=== PATIENT | male | born 1950 | race African-American/Black ===

== ENCOUNTER → 2017-01-11 | Outpatient (CLI) | payer MEDICARE, BC ==
--- NOTE | 2017-01-11 17:42 | CT ---
EXAMINATION TYPE: CT brain wo con DATE OF EXAM: 01/11/2017 4:59 PM COMPARISON: NONE HISTORY: 66-year-old male having memory changes for the past month TECHNIQUE: Examination was done in axial plane without intravenous contrast. Coronal and sagittal r econstructions performed. CT DLP: 1061 mGycm Automated exposure control for dose reduction was used. FINDINGS: There is no evidence of acute intracranial hemorrhage, acute ischemic changes, mass, mass-effect, or extra-axial fluid collection. There is no effacement of cerebral sulci or basal subarachnoid cister ns. There is no hydrocephalus. There is no midline shift. Gomez-white matter distinction is preserv ed. Mild generalized cerebral cortical atrophy with moderate patchy and confluent periventricular and yovanny p white matter hypodensities. Multiple basal ganglionic lacunar infarcts and additional white matter infarcts in the [place] radiata. Rightward nasal septal deviation. Some frothy partial opacification within the right sphenoid sinus. Cerumen within the left external auditory canal. Mastoid air cells well pneumatized. Orbits and globe s are intact. IMPRESSION: 1. Moderate confluent changes of chronic small vessel ischemic disease with multiple deep white matte r and basal ganglionic lacunar infarcts. Given patient's symptoms, correlate for possible developing multi-infarct dementia. 2. Some frothy opacification of the right sphenoid sinus can be seen in the setting of an acute viral sinusitis.
== END | disposition home or self-care (01) ==
LOC: RADCTMAIN 16:34
PROVIDERS: ATTEND Family Medicine
DX: I63.9 Cerebral infarction, unspecified (principal); I67.89 Other cerebrovascular disease; R90.82 White matter disease, unspecified
CPT/HCPCS: 70450

== ENCOUNTER 2017-02-23 21:38 | Inpatient (IN) | payer MEDICARE, BC ==
--- NOTE | 2017-02-23 22:18 | CT ---
EXAM: CT Head Without Intravenous Contrast CLINICAL HISTORY: Reason: Neuro Deficits. Left side facial droop and difficulty walking. TECHNIQUE: Axial computed tomography images of the head/brain without intravenous contrast. CTDI is 57.4 mGy and DLP is 926.5 mGy-cm This CT exam was performed using one or more of the following dose reduction techniques: automated exposure control, adjustment of the mA and/or kV according to patient size, and/or use of iterative reconstruction technique. COMPARISON: CT 01/11/17. FINDINGS: Brain: Mild involutional changes. Patchy white matter low attenuation likely represents small vessel disease, similar to prior study. Bilateral lacunar infarcts are also again noted. No intracranial hemorrhage or acute cortical infarct. No mass effect or midline shift. Ventricles: Unremarkable. Bones/joints: Unremarkable. Soft tissues: Unremarkable. Sinuses: Mild sinus disease most prominent in the right sphenoid sinus. Mastoid air cells: Unremarkable as visualized. IMPRESSION: 1. No intracranial hemorrhage or acute cortical infarct. 2. Mild involutional changes with moderate small vessel ischemic disease and lacunar infarcts.
--- NOTE | 2017-02-23 22:23 | XR ---
EXAM: XR Chest, 2 Views CLINICAL HISTORY: Reason: altered mental status TECHNIQUE: Frontal and lateral views of the chest. COMPARISON: No relevant prior studies available. FINDINGS: Lungs: Unremarkable. No consolidation. Pleural space: Unremarkable. No pneumothorax. Heart: Enlarged cardiac silhouette. Mediastinum: Prominent aorta. Bones/joints: Unremarkable. IMPRESSION: 1. Enlarged cardiac silhouette. 2. No focal consolidation, pneumothorax, or pleural effusion.
[2017-02-23 22:25] LABS: Anisocytosis Slight; Basophils % (A) 0 %; CH 31.6; CHCM 33.9; Eosinophils # (A) 0.1 k/uL (0-0.7); Eosinophils % (A) 2 %; HCT 30.4 % (39.0-53.0); HDW 2.79; HGB 10.2 gm/dL (13.0-17.5); Luc # (Auto) 0.21; Luc % (Auto) 3; Lymphocytes # (A) 2.3 k/uL (1.0-4.8); Lymphocytes % (A) 37 %; MCH 31.3 pg (25.0-35.0); MCHC 33.5 g/dL (31.0-37.0); MCV 93.5 fL (80.0-100.0); Mean Platelet Volume 6.9; Monocytes # (A) 0.4 k/uL (0-1.0); Monocytes % (A) 7 %; Neutrophils # (A) 3.2 k/uL (1.3-7.7); Neutrophils % (A) 51 %; RBC 3.25 m/uL (4.30-5.90); RDW 16.1 % (11.5-15.5); WBC 6.2 k/uL (3.8-10.6); WBC (Perox) 6.29
[2017-02-23 22:32] LABS: Glucose,Whole Blood 161 mg/dL (75-99)
[2017-02-23] MEDS ORDERED: INSULIN REGULAR 100 UNIT/ML VIAL SQ STA (22:32)
[2017-02-23 22:34] LABS: ALT 32 U/L (21-72); AST 21 U/L (17-59); Alkaline Phosphatase 115 U/L (38-126); Anion Gap 11 mmol/L; Blood Urea Nitrogen 16 mg/dL (9-20); Calcium 9.7 mg/dL (8.4-10.2); Carbon Dioxide 25 mmol/L (22-30); Chloride 102 mmol/L (98-107); Glucose 129 mg/dL (74-99); Non-African American GFR(MDRD) 58 (>60 ml/min/1.73 sqM); Potassium 3.5 mmol/L (3.5-5.1); Sodium 138 mmol/L (137-145); Total Bilirubin 0.4 mg/dL (0.2-1.3); Total Protein 7.4 g/dL (6.3-8.2)
[2017-02-23 22:46] LABS: Creatine Kinase 89 U/L (55-170)
[2017-02-23 22:48] LABS: Partial Thromboplastin Time 27.7 sec (22.0-30.0); Prothrombin Time 10.1 sec (9.0-12.0)
[2017-02-23 23:00] LABS: Creatine Kinase MB 0.7 ng/mL (0.0-2.4); Troponin I <0.012 ng/mL (0.000-0.034)
[2017-02-23] MEDS ORDERED: ASPIRIN 81 MG CHEW PO STA (23:03)
--- NOTE | 2017-02-23 23:03 | ED ---
Neuro HPI - General Chief Complaint: Neuro Symptoms/Deficit Stated Complaint: Poss Stroke Time Seen by Provider: 02/23/17 21:47 Source: patient Mode of arrival: ambulatory Limitations: no limitations - History of Present Illness Is the patient presenting with stroke symptoms?: Yes Last Known Well Date: 02/23/17 Last Known Well Time: 08:30 Onset/Timin -: hour(s) Location: left face, left arm, left leg History of same: Yes Place: home Severity: mild Quality: weak Improves With: none Worsens With: none On Anticoagulants: No Context: sudden onset Associated Symptoms: denies other symptoms Treatments Prior to Arrival: none - Related Data Home Medications: Home Medications Medication Instructions Recorded Confirmed Atorvastatin [Lipitor] 40 mg PO DAILY 02/23/17 02/23/17 Cholecalciferol [Vitamin D3] 1,000 unit PO DAILY 02/23/17 02/23/17 Cyanocobalamin (Vitamin B-12) 1,000 mcg PO DAILY 02/23/17 02/23/17 [Vitamin B-12] Glycopyrrolate/Formoterol Fum 1 puff INHALATION RT-BID 02/23/17 02/23/17 [Bevespi Aerosphere Inhaler] Omeprazole [PriLOSEC] 20 mg PO AC-BID 02/23/17 02/23/17 amLODIPine BES/OLMESARTAN MED 1 tab PO DAILY 02/23/17 02/23/17 [amLODIPine BES/OLMESARTAN MED 10-40 mg] Allergies/Adverse Reactions: Allergies Allergy/AdvReac Type Severity Reaction Status Date / Time No Known Allergies Allergy Verified 02/23/17 22:08 Review of Systems ROS Statement: Those systems with pertinent positive or pertinent negative responses have been documented in the HPI. ROS Other: All systems not noted in ROS Statement are negative. Constitutional: Reports: weakness. Denies: fever, chills Eyes: Denies: vision change Respiratory: Denies: cough, dyspnea Cardiovascular: Denies: chest pain, palpitations, syncope Gastrointestinal: Denies: abdominal pain, vomiting, diarrhea Genitourinary: Denies: dysuria, hematuria Musculoskeletal: Denies: back pain Skin: Denies: rash Neurological: Reports: weakness, abnormal gait. Denies: headache, numbness, paresthesias, confusion General Exam Limitations: no limitations General appearance: alert, in no apparent distress Head exam: Present: atraumatic, normocephalic, normal inspection Eye exam: Present: normal appearance, PERRL, EOMI. Absent: scleral icterus, conjunctival injection, periorbital swelling, periorbital tenderness ENT exam: Present: normal oropharynx, other (Mild left facial droop) Neck exam: Present: normal inspection, full ROM. Absent: meningismus Respiratory exam: Present: normal lung sounds bilaterally. Absent: respiratory distress, wheezes, rales, rhonchi, stridor Cardiovascular Exam: Present: regular rate, normal rhythm, normal heart sounds. Absent: systolic murmur, diastolic murmur, rubs, gallop GI/Abdominal exam: Present: soft. Absent: distended, tenderness, guarding, rebound, mass Extremities exam: Present: normal inspection, normal capillary refill. Absent: pedal edema, calf tenderness Back exam: Present: normal inspection. Absent: CVA tenderness (R), CVA tenderness (L) Neurological exam: Present: alert, oriented X3, motor sensory deficit, other ( This patient is GCS 15. Speech is intact. The cranial nerve exam the patient does have some left-sided facial droop. Motor exam reveals mild drift on the left leg raise. ). Absent: CN II-XII intact Skin exam: Present: warm, dry, intact, normal color. Absent: rash Stroke MDM - Lab Data Result diagrams: 02/23/17 22:10 02/23/17 22:10 Lab Results 02/23/17 02/23/17 02/23/17 Range/Units 22:10 22:10 22:10 WBC 6.2 (3.8-10.6) k/uL RBC 3.25 L (4.30-5.90) m/uL Hgb 10.2 L (13.0-17.5) gm/dL Hct 30.4 L (39.0-53.0) % MCV 93.5 (80.0-100.0) fL MCH 31.3 (25.0-35.0) pg MCHC 33.5 (31.0-37.0) g/dL RDW 16.1 H (11.5-15.5) % Plt Count 326 (150-450) k/uL Neutrophils % 51 % Lymphocytes % 37 % Monocytes % 7 % Eosinophils % 2 % Basophils % 0 % Neutrophils # 3.2 (1.3-7.7) k/uL Lymphocytes # 2.3 (1.0-4.8) k/uL Monocytes # 0.4 (0-1.0) k/uL Eosinophils # 0.1 (0-0.7) k/uL Basophils # 0.0 (0-0.2) k/uL Anisocytosis Slight PT (9.0-12.0) sec INR (<1.1) APTT (22.0-30.0) sec Sodium 138 (137-145) mmol/L Potassium 3.5 (3.5-5.1) mmol/L Chloride 102 (98-107) mmol/L Carbon Dioxide 25 (22-30) mmol/L Anion Gap 11 mmol/L BUN 16 (9-20) mg/dL Creatinine 1.25 (0.66-1.25) mg/dL Est GFR (MDRD) Af Amer >60 (>60 ml/min/1.73 sqM) Est GFR (MDRD) Non-Af 58 (>60 ml/min/1.73 sqM) Glucose 129 H (74-99) mg/dL POC Glucose (mg/dL) (75-99) mg/dL POC Glu Hot Water Heater Installer ID Calcium 9.7 (8.4-10.2) mg/dL Total Bilirubin 0.4 (0.2-1.3) mg/dL AST 21 (17-59) U/L ALT 32 (21-72) U/L Alkaline Phosphatase 115 (38-126) U/L Total Creatine Kinase 89 (55-170) U/L CK-MB (CK-2) 0.7 (0.0-2.4) ng/mL CK-MB (CK-2) Rel Index 0.8 Troponin I <0.012 (0.000-0.034) ng/mL Total Protein 7.4 (6.3-8.2) g/dL Albumin 3.8 (3.5-5.0) g/dL 02/23/17 02/23/17 Range/Units 22:10 22:29 WBC (3.8-10.6) k/uL RBC (4.30-5.90) m/uL Hgb (13.0-17.5) gm/dL Hct (39.0-53.0) % MCV (80.0-100.0) fL MCH (25.0-35.0) pg MCHC (31.0-37.0) g/dL RDW (11.5-15.5) % Plt Count (150-450) k/uL Neutrophils % % Lymphocytes % % Monocytes % % Eosinophils % % Basophils % % Neutrophils # (1.3-7.7) k/uL Lymphocytes # (1.0-4.8) k/uL Monocytes # (0-1.0) k/uL Eosinophils # (0-0.7) k/uL Basophils # (0-0.2) k/uL Anisocytosis PT 10.1 (9.0-12.0) sec INR 1.0 (<1.1) APTT 27.7 (22.0-30.0) sec Sodium (137-145) mmol/L Potassium (3.5-5.1) mmol/L Chloride (98-107) mmol/L Carbon Dioxide (22-30) mmol/L Anion Gap mmol/L BUN (9-20) mg/dL Creatinine (0.66-1.25) mg/dL Est GFR (MDRD) Af Amer (>60 ml/min/1.73 sqM) Est GFR (MDRD) Non-Af (>60 ml/min/1.73 sqM) Glucose (74-99) mg/dL POC Glucose (mg/dL) 161 H (75-99) mg/dL POC Glu Hot Water Heater Installer ID Monet Evans Calcium (8.4-10.2) mg/dL Total Bilirubin (0.2-1.3) mg/dL AST (17-59) U/L ALT (21-72) U/L Alkaline Phosphatase (38-126) U/L Total Creatine Kinase (55-170) U/L CK-MB (CK-2) (0.0-2.4) ng/mL CK-MB (CK-2) Rel Index Troponin I (0.000-0.034) ng/mL Total Protein (6.3-8.2) g/dL Albumin (3.5-5.0) g/dL - EKG Data -: EKG Interpreted by Ca EKG shows normal: sinus rhythm, axis (Normal), intervals (Normal) Rate: normal (Rate 83 bpm) Interpretation: nonspecific ST-T wave changes, other (Possible old septal infarct.) Past Medical History Past Medical History: GERD/Reflux, Hyperlipidemia, Hypertension, Musculoskeletal Disorder Additional Past Medical History / Comment(s): 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 OCC EDEMA FEET. History of Any Multi-Drug Resistant Organisms: None Reported Past Surgical History: Hernia Repair, Joint Replacement, Orthopedic Surgery Additional Past Surgical History / Comment(s): RT TOTAL KNEE Past Anesthesia/Blood Transfusion Reactions: No Reported Reaction Past Psychological History: No Psychological Hx Reported Smoking Status: Current every day smoker Past Alcohol Use History: Occasional Additional Past Alcohol Use History / Comment(s): SMOKED < 1PPD FOR 38 YEARS EST. Past Drug Use History: None Reported - Past Family History Mother Family Medical History: No Reported History Course Vital Signs 02/23/17 02/23/17 21:48 22:15 Temperature 98.7 F Pulse Rate 85 86 Respiratory 16 16 Rate Blood Pressure 148/78 140/78 O2 Sat by Pulse 98 97 Oximetry Disposition Clinical Impression: Acute ischemic stroke Disposition: ADMITTED IP TO THIS HOSP Condition: Fair
[2017-02-24] MEDS: DOCUSATE 100 MG CAP PO SCH ×4 (00:20→22:46)
[2017-02-24 00:25] LABS: Glucose,Whole Blood 124 mg/dL (75-99)
[2017-02-24 04:55] LABS: Anisocytosis Slight; Basophils % (A) 0 %; CH 31.3; CHCM 32.8; Eosinophils # (A) 0.1 k/uL (0-0.7); Eosinophils % (A) 2 %; HCT 29.2 % (39.0-53.0); HDW 2.65; HGB 9.6 gm/dL (13.0-17.5); Luc # (Auto) 0.21; Luc % (Auto) 4; Lymphocytes # (A) 2.6 k/uL (1.0-4.8); Lymphocytes % (A) 42 %; MCH 31.4 pg (25.0-35.0); MCHC 32.8 g/dL (31.0-37.0); MCV 95.9 fL (80.0-100.0); Mean Platelet Volume 6.5; Monocytes # (A) 0.4 k/uL (0-1.0); Monocytes % (A) 7 %; Neutrophils # (A) 2.7 k/uL (1.3-7.7); Neutrophils % (A) 45 %; RBC 3.05 m/uL (4.30-5.90); RDW 16.5 % (11.5-15.5); WBC 6.1 k/uL (3.8-10.6); WBC (Perox) 6.41
[2017-02-24 05:08] LABS: Anion Gap 7 mmol/L; Blood Urea Nitrogen 14 mg/dL (9-20); Calcium 9.5 mg/dL (8.4-10.2); Carbon Dioxide 28 mmol/L (22-30); Chloride 104 mmol/L (98-107); Glucose 95 mg/dL (74-99); Magnesium 1.6 mg/dL (1.6-2.3); Non-African American GFR(MDRD) >60 (>60 ml/min/1.73 sqM); Phosphorous 3.4 mg/dL (2.5-4.5); Potassium 3.3 mmol/L (3.5-5.1); Sodium 139 mmol/L (137-145)
[2017-02-24] MEDS: PANTOPRAZOLE 40 MG TABLET PO SCH ×2 (06:17→18:48)
[2017-02-24] MEDS: MAGNESIUM SULFATE-D5W PMX 1 GM in DEXTROSE/WATER 1 100ML.BAG IVPB SCH ×2 (06:50→08:03)
[2017-02-24] MEDS: DEXTROSE 5%-0.45% NACL 1,000 ML IV SCH (06:50)
[2017-02-24] MEDS ORDERED: NON-FORMULARY DRUG (Glycopyrrolate/Formoterol Fum [Bevespi Aerosphere Inhaler] 1 PUFF) INHALATION SCH (08:00)
[2017-02-24] MEDS: POTASSIUM CHLORIDE 10 MEQ in WATER FOR INJECTION 1 100ML.BAG IVPB SCH ×2 (08:48→10:00)
[2017-02-24] MEDS ORDERED: FAMOTIDINE 20 MG/2 ML VIAL IV SCH (09:00)
--- NOTE | 2017-02-24 10:00 | ECHOF ---
Referral Reason:Thrombus MEASUREMENTS -------- HEIGHT: 182.9 cm WEIGHT: 76.7 kg BP: IVSd: 1.6 cm (0.6 - 1.1) LVIDd: 2.9 cm (3.9 - 5.3) LVPWd: 1.8 cm (0.6 - 1.1) IVSs: 1.8 cm LVIDs: 2.3 cm LVPWs: 1.9 cm Ao Diam: 3.2 cm (2.0 - 3.7) AV Cusp: 2.3 cm (1.5 - 2.6) LA Diam: 3.1 cm (2.7 - 3.8) MV EXCURSION: 18.395 mm (> 18.000) MV EF SLOPE: 87 mm/s (70 - 150) EPSS: 2.2 cm MV E Shine: 0.70 m/s MV DecT: 164 ms MV A Shine: 1.06 m/s MV E/A Ratio: 0.66 RAP: 5.00 mmHg RVSP: 10.33 mmHg FINDINGS -------- Sinus rhythm. This was a technically good study. There is severe concentric left ventricular hypertrophy. Overall left ventricular systolic function is normal with, an EF between 55 - 60 %. The right ventricle is normal in size and function. The left atrium is normal in size. The right atrium is normal in size. The aortic valve is trileaflet, and appears structurally normal. No aortic stenosis or regurgitation. The mitral valve leaflets are mildly thickened. There is trace mitral regurgitation. Trace tricuspid regurgitation present. The right ventricular systolic pressure, as measured by Doppler, is 10.33mmHg. Pulmonic valve appears structurally normal. The aortic root size is normal. There is a trivial pericardial effusion present. CONCLUSIONS -------- 1. Sinus rhythm. 2. There is trace mitral regurgitation. 3. Trace tricuspid regurgitation present. 4. The right ventricular systolic pressure, as measured by Doppler, is 10.33mmHg. 5. Pulmonic valve appears structurally normal. 6. The aortic root size is normal. 7. There is a trivial pericardial effusion present. 8. This was a technically good study. 9. There is severe concentric left ventricular hypertrophy. 10. Overall left ventricular systolic function is normal with, an EF between 55 - 60 %. 11. The right ventricle is normal in size and function. 12. The left atrium is normal in size. 13. The right atrium is normal in size. 14. The aortic valve is trileaflet, and appears structurally normal. No aortic stenosis or regurgitation. 15. The mitral valve leaflets are mildly thickened. FLEET OPERATIONS MANAGER: Susie Sandhu RDCS
--- NOTE | 2017-02-24 10:28 | US ---
EXAMINATION TYPE: US carotid duplex BILAT DATE OF EXAM: 02/24/2017 9:35 AM COMPARISON: NONE CLINICAL HISTORY: Stenosis. Left facial drooping on admission yesterday, ICU pt EXAM MEASUREMENTS: RIGHT: Peak Systolic Velocity (PSV) cm/sec ----- Right CCA: 52.9 ----- Right ICA: 54.1 ----- Right ECA: 56.3 ICA/CCA ratio: 1.0 RIGHT: End Diastole cm/sec ----- Right CCA: 12.7 ----- Right ICA: 12.4 ----- Right ECA: 8.0 LEFT: Peak Systolic Velocity (PSV) cm/sec ----- Left CCA: 60.3 ----- Left ICA: 43.8 ----- Left ECA: 46.0 ICA/CCA ratio: 0.7 LEFT: End Diastole cm/sec ----- Left CCA: 10.9 ----- Left ICA: 13.9 ----- Left ECA: 6.4 VERTEBRALS (direction of flow): Right Vertebral: Antegrade Left Vertebral: Antegrade Mild homogeneous plaque with no significant stenosis seen Grayscale images show mild shadowing peripheral hyperechoic plaque at left carotid bulb. Velocity jhonny surements and ratios are within normal limits bilaterally. IMPRESSION: No hemodynamically significant stenosis is seen in either internal carotid artery
[2017-02-24 13:24] LABS: Cholesterol 162 mg/dL (<200); HDL Cholesterol 39 mg/dL (40-60); Triglycerides 54 mg/dL (<150)
--- NOTE | 2017-02-24 13:24 | P.CNNES ---
History of Present Illness Consult date: 02/24/17 Reason for Consult: Patient being evaluated for acute stroke. History of Present Illness: This patient is a 66-year-old right-handed -Greek male who apparently yesterday evening was noted by his is showing sudden changes in his mental status and new weakness. His who provided the medical history states he was just not himself and seemed to have more trouble eating at the dinner table. Apparently the symptoms lasted for several hours and did not show any improvement. EMS was called and he was brought into the emergency room at [facility] for further evaluation. He was seen in the ER by Dr. Rivera. He was sent for a computed tomography scan of the brain for further evaluation of acute stroke. CAT scan revealed no intracranial hemorrhage or acute cortical infarct. Mild changes with moderate small vessel ischemic changes were noted. His NIH stroke scale yesterday evening at 2100 hrs. was 3.0. He was not felt to be a TPA candidate yesterday evening. He was admitted to the ICU for close monitoring. He was transferred to the intensive care unit where he was examined this morning. Patient continues to have evidence of left-sided hemiparesis on examination. He has a left facial droop. Apparently he was assessed for a swallowing evaluation at bedside and failed his swallow study today. He is nothing by mouth at this time. His states that he has a history of possible gastric ulcer and had undergone surgical evaluation recently. He has not been able to take aspirin due to the ulcer history. Patient denies any headache at this time. He apparently does have history of multiple TIAs in the past. His states that the left-sided facial weakness is new since yesterday. He has been admitted to the hospital for a complete stroke evaluation. Neurology is now been consulted for further evaluation and recommendations. Review of Systems Constitutional: Denies chills, Denies fever Eyes: denies blurred vision, denies pain Ears, nose, mouth and throat: Denies headache, Denies sore throat Cardiovascular: Denies chest pain, Denies shortness of breath Respiratory: Denies cough Gastrointestinal: Denies abdominal pain, Denies diarrhea, Denies nausea, Denies vomiting Musculoskeletal: Denies myalgias Integumentary: Denies pruritus, Denies rash Neurological: Reports change in mentation, Reports confusion, Reports memory loss, Reports transient paralysis, Denies numbness, Denies weakness Psychiatric: Denies anxiety, Denies depression Endocrine: Denies fatigue, Denies weight change Past Medical History Past Medical History: GERD/Reflux, Hyperlipidemia, Hypertension, Musculoskeletal Disorder Additional Past Medical History / Comment(s): 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 OCC EDEMA FEET. Current Gastric Ulcer. History of Any Multi-Drug Resistant Organisms: None Reported Past Surgical History: Hernia Repair, Joint Replacement, Orthopedic Surgery Additional Past Surgical History / Comment(s): RT TOTAL KNEE Past Anesthesia/Blood Transfusion Reactions: No Reported Reaction Past Psychological History: No Psychological Hx Reported Smoking Status: Current every day smoker Past Alcohol Use History: Occasional Additional Past Alcohol Use History / Comment(s): SMOKED < 1PPD FOR 38 YEARS EST. Past Drug Use History: None Reported - Past Family History Mother Family Medical History: No Reported History Medications and Allergies Home Medications Medication Instructions Recorded Confirmed Type Atorvastatin [Lipitor] 40 mg PO DAILY 02/23/17 02/23/17 History Cholecalciferol [Vitamin D3] 1,000 unit PO DAILY 02/23/17 02/23/17 History Cyanocobalamin (Vitamin B-12) 1,000 mcg PO DAILY 02/23/17 02/23/17 History [Vitamin B-12] Glycopyrrolate/Formoterol Fum 1 puff INHALATION RT-BID 02/23/17 02/23/17 History [Bevespi Aerosphere Inhaler] Omeprazole [PriLOSEC] 20 mg PO AC-BID 02/23/17 02/23/17 History amLODIPine BES/OLMESARTAN MED 1 tab PO DAILY 02/23/17 02/23/17 History [amLODIPine BES/OLMESARTAN MED 10-40 mg] Allergies Allergy/AdvReac Type Severity Reaction Status Date / Time No Known Allergies Allergy Verified 02/23/17 22:08 Physical Examination - Vital Signs Vital Signs: Vital Signs Temp Pulse Resp BP Pulse Ox 02/24/17 08:00 98.3 F 71 15 97 02/24/17 06:00 69 14 02/24/17 04:00 98.3 F 75 14 147/82 100 02/24/17 02:00 76 10 L 158/82 02/24/17 01:50 77 17 158/82 02/24/17 01:40 75 13 158/82 02/24/17 01:30 74 17 158/82 02/24/17 01:20 78 18 158/82 02/24/17 01:10 77 19 02/24/17 01:00 74 17 02/24/17 00:50 77 26 H 02/24/17 00:40 93 20 02/24/17 00:30 77 15 02/24/17 00:27 10 L 02/24/17 00:23 75 15 148/82 97 02/23/17 23:44 76 16 142/89 98 Intake and Output 02/23/17 02/24/17 02/24/17 22:59 06:59 14:59 Intake Total 100 350 Output Total 250 Balance -150 350 Intake: IV 100 100 NS 100 Potassium Chloride 10 meq 100 In Water For Injection 1 100ml.bag @ 100 mls/hr IVPB Q1H [facility] Rx#: [id number] Intake, IV Titration 250 Amount Dextrose 5%-0.45% NaCl 1, 150 000 ml @ 75 mls/hr IV . [id number] [facility] Rx#:[id number] Magnesium Sulfate-D5w Pmx 100 1 gm In Dextrose/Water 1 100ml.bag @ 100 mls/hr IVPB Q1H [facility] Rx#: [id number] Output: Urine 250 Other: Voiding Method Urinal Weight 77 kg - Constitutional General appearance: average body habitus, cooperative - EENT EENT: PERRL, mucous membranes moist - Respiratory Respiratory: lungs clear, normal breath sounds - Cardiovascular Cardiovascular: regular rate, normal S1, normal S2 Extremities: no peripheral edema bilaterally - Gastrointestinal Gastrointestinal: normoactive bowel sounds - Integumentary Integumentary: normal - Neurologic Cranial nerve examination: PERRL, EOMI, V1/V2/V3 grossly intact, face symmetric , tongue midline, intact gag reflex, intact corneal reflex, normal palatal elevation Speech examination: intact Sensorimotor examination: intact Motor examination - right side: 5/5: biceps, triceps, wrist flexion, wrist extension, technical operations specialist, hip flexors, knee extensors, dorsiflexion, toe extension (EHL) , plantarflexion Motor examination - left side: 3/5: biceps, triceps, wrist flexion, wrist extension, technical operations specialist, 4/5: hip flexors, knee extensors, dorsiflexion, toe extension ( EHL), plantarflexion Detailed sensory examination: intact Reflex and gait examination: intact Reflexes: 1+: ankle, bicep, knee, tricep - Musculoskeletal Musculoskeletal: no pain - Psychiatric Psychiatric: mood/affect appropriate, cooperative Results - Laboratory Findings CBC and BMP: 02/24/17 04:24 02/24/17 04:24 Abnormal Lab Findings: Abnormal Labs 02/24/17 02/24/17 02/24/17 00:23 04:24 04:24 RBC 3.05 L Hgb 9.6 L Hct 29.2 L RDW 16.5 H Potassium 3.3 L POC Glucose (mg/dL) 124 H Assessment and Plan (1) Acute right arterial ischemic stroke, MCA (middle cerebral artery) Status: Acute Code(s): I63.511 - CEREB INFRC D/T UNSP OCCLS OR STENOS OF RIGHT MID CEREB ART (2) Dysphagia Status: Acute Code(s): R13.10 - DYSPHAGIA, UNSPECIFIED (3) Peptic ulcer disease Status: Acute Code(s): K27.9 - PEPTIC ULC, SITE UNSP, UNSP AC OR CHR, W/O HEMOR OR PERF (4) Hypertension Status: Acute Code(s): I10 - ESSENTIAL (PRIMARY) HYPERTENSION (5) Hyperlipidemia Status: Acute Code(s): E78.5 - HYPERLIPIDEMIA, UNSPECIFIED Plan: This patient is a 66-year-old right-handed -Greek male who was admitted to Hospital with symptoms of left-sided weakness and confusion. Symptoms began late yesterday evening and he was brought into the emergency room for further evaluation. He underwent a computed tomography scan of the brain which revealed no acute intracranial hemorrhage or acute stroke. He was fully admitted to the intensive care unit. He failed his swallow evaluation. He is nothing by mouth at this time. He has history of TIAs in the past. His neurological examination in the ICU reveals him to have left-sided hemiparesis as well as left upper motor neuron facial weakness. These findings suggest an acute right MCA stroke. We have recommended a complete stroke evaluation for the patient. Case was discussed today at length with the patient's at bedside. All of her questions were answered. She is aware of her husbands very guarded condition at this time. We will continue close neurological monitoring of this patient in the ICU. His overall prognosis at this time remains very guarded. Time with Patient: Greater than 30
--- NOTE | 2017-02-24 13:59 | MR ---
EXAMINATION TYPE: MR brain wo con DATE OF EXAM: 02/24/2017 1:46 PM COMPARISON: CT brain from yesterday HISTORY: Acute right-sided hemispheric stroke per order. Admitted yesterday for left-sided facial lyubov op and difficulty walking. TECHNIQUE: Multiplanar, multisequence imaging of the brain and brainstem is performed without IV cont rast. FINDINGS: Diffusion weighted images demonstrate curvilinear area of increased signal on diffusion weighted imag es with diminished signal on ADC mapping that shows T2 hyperintensity near the inferior left basal ga nglia junction with the superior left temporal lobe seen best image 104 series 305 measuring roughly 10 x 4 mm consistent with lacunar infarct. There are additional multifocal subcentimeter areas of sim ilar signal noted in the left occipital lobe on image 144 flair image 18 and right subcortical pariet al matter. Additional scattered foci are seen right greater than left involving the deep frontal and parietal brain bilaterally of similar signal intensity. Findings are consistent with multilevel evolv ing acute lacunar infarcts. There is no worrisome extra-axial fluid collection. There is ventricular and sulcal prominence consis tent with diffuse cerebral atrophy. There are focal and confluent areas of T2 hyperintensity seen thr oughout the white matter bilaterally. Lesions are nonspecific in appearance and distribution but most likely on basis of product of chronic small vessel ischemic change in patient of this age. Midline structures demonstrate normal morphology. The craniocervical junction appears within normal limits. Normal vascular flow voids are present. Dominant right vertebral artery is noted. There is de pendent fluid in right sphenoid sinus redemonstrated. Artifact is noted from patient motion. The glob es are intact bilaterally. IMPRESSION: 1. There are multifocal acute lacunar infarcts noted bilaterally, right greater than left as detailed above, consider central embolic source . 2. There is background of mild diffuse cerebral atrophy and advanced chronic small vessel ischemic ch luh noted.
[2017-02-24] MEDS: CYANOCOBALAMIN 500 MCG TAB PO SCH (14:00)
[2017-02-24] MEDS: ATORVASTATIN 40 MG TAB PO SCH (14:00)
[2017-02-24] MEDS: amLODIPine 10 MG TAB PO SCH (14:00)
[2017-02-24] MEDS: CHOLECALCIFEROL 1,000 UNIT TAB PO SCH (14:00)
[2017-02-24] MEDS: LOSARTAN 50 MG TAB PO SCH (14:01)
--- NOTE | 2017-02-24 15:35 | P.CRDCN ---
History of Present Illness Consult date: 02/24/17 History of present illness: This is a pleasant 66-year-old -[place] gentleman with a past medical history significant for hypertension and dyslipidemia was admitted to the hospital with stroke. The patient was in his usual state of health until yesterday when he started experiencing left-sided weakness and his noticed his speech became slow and he was a slightly confused. He did not lose his consciousness. He did not experience any symptoms of chest pain or chest discomfort. He underwent an MRI of the brain and that showed what it seems to be lacking her stroke in multiple location consistent with possible embolization. We get involved in the care of the patient to rule out any cardiac source of embolization. 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 He underwent an echocardiogram which showed normal LV function without any significant valvular abnormalities. The patient will be scheduled to undergo transesophageal echocardiogram in the next 48 hours. 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 OCC EDEMA FEET. Current Gastric Ulcer. History of Any Multi-Drug Resistant Organisms: None Reported Past Surgical History: Hernia Repair, Joint Replacement, Orthopedic Surgery Additional Past Surgical History / Comment(s): RT TOTAL KNEE Past Anesthesia/Blood Transfusion Reactions: No Reported Reaction Past Psychological History: No Psychological Hx Reported Smoking Status: Current every day smoker Past Alcohol Use History: Occasional Additional Past Alcohol Use History / Comment(s): SMOKED < 1PPD FOR 38 YEARS EST. Past Drug Use History: None Reported - Past Family History Mother Family Medical History: No Reported History Medications and Allergies Home Medications Medication Instructions Recorded Confirmed Type Atorvastatin [Lipitor] 40 mg PO DAILY 02/23/17 02/23/17 History Cholecalciferol [Vitamin D3] 1,000 unit PO DAILY 02/23/17 02/23/17 History Cyanocobalamin (Vitamin B-12) 1,000 mcg PO DAILY 02/23/17 02/23/17 History [Vitamin B-12] Glycopyrrolate/Formoterol Fum 1 puff INHALATION RT-BID 02/23/17 02/23/17 History [Bevespi Aerosphere Inhaler] Omeprazole [PriLOSEC] 20 mg PO AC-BID 02/23/17 02/23/17 History amLODIPine BES/OLMESARTAN MED 1 tab PO DAILY 02/23/17 02/23/17 History [amLODIPine BES/OLMESARTAN MED 10-40 mg] Allergies Allergy/AdvReac Type Severity Reaction Status Date / Time No Known Allergies Allergy Verified 02/23/17 22:08 Physical Exam Vitals: Vital Signs Temp Pulse Resp BP Pulse Ox 02/24/17 12:00 98.5 F 67 14 157/86 96 02/24/17 10:00 70 13 150/83 96 02/24/17 08:00 98.3 F 71 15 97 02/24/17 06:00 69 14 02/24/17 04:00 98.3 F 75 14 147/82 100 02/24/17 02:00 76 10 L 158/82 02/24/17 01:50 77 17 158/82 02/24/17 01:40 75 13 158/82 02/24/17 01:30 74 17 158/82 02/24/17 01:20 78 18 158/82 02/24/17 01:10 77 19 02/24/17 01:00 74 17 02/24/17 00:50 77 26 H 02/24/17 00:40 93 20 02/24/17 00:30 77 15 02/24/17 00:27 10 L 02/24/17 00:23 75 15 148/82 97 02/23/17 23:44 76 16 142/89 98 Intake and Output 02/24/17 02/24/17 02/24/17 06:59 14:59 22:59 Intake Total 100 675 Output Total 250 Balance -150 675 Intake: IV 100 200 NS 100 Potassium Chloride 10 meq 200 In Water For Injection 1 100ml.bag @ 100 mls/hr IVPB Q1H H[facility] Rx#: [id number] Intake, IV Titration 475 Amount Dextrose 5%-0.45% NaCl 1, 375 000 ml @ 75 mls/hr IV . [id number] HAM Rx#:[id number] Magnesium Sulfate-D5w Pmx 100 1 gm In Dextrose/Water 1 100ml.bag @ 100 mls/hr IVPB Q1H H[facility] Rx#: [id number] Output: Urine 250 Other: Voiding Method Urinal # Voids 1 Weight 77 kg - Constitutional General appearance: no acute distress - Respiratory Respiratory: bilateral: CTA - Cardiovascular Rhythm: regular Results 02/24/17 04:24 02/24/17 04:24 Cardiac Enzymes 02/24/17 02/24/17 Range/Units 04:24 10:04 Troponin I <0.012 <0.012 (0.000-0.034) ng/mL Lipids 02/24/17 Range/Units 04:24 Triglycerides 54 (<150) mg/dL Cholesterol 162 (<200) mg/dL HDL Cholesterol 39 L (40-60) mg/dL CBC 02/24/17 Range/Units 04:24 WBC 6.1 (3.8-10.6) k/uL RBC 3.05 L (4.30-5.90) m/uL Hgb 9.6 L (13.0-17.5) gm/dL Hct 29.2 L (39.0-53.0) % Plt Count 273 (150-450) k/uL Comprehensive Metabolic Panel 02/24/17 Range/Units 04:24 Sodium 139 (137-145) mmol/L Potassium 3.3 L (3.5-5.1) mmol/L Chloride 104 (98-107) mmol/L Carbon Dioxide 28 (22-30) mmol/L BUN 14 (9-20) mg/dL Creatinine 1.18 (0.66-1.25) mg/dL Glucose 95 (74-99) mg/dL Calcium 9.5 (8.4-10.2) mg/dL Current Medications Generic Name Dose Route Start Last Admin Trade Name Freq PRN Reason Stop Dose Admin Amlodipine Besylate 10 mg 02/24/17 09:00 02/24/17 14:00 Norvasc PO Not Given DAILY [facility] Aspirin 325 mg 02/24/17 23:29 Aspirin PO DAILY [facility] Atorvastatin Calcium 40 mg 02/24/17 09:00 02/24/17 14:00 Lipitor PO Not Given DAILY [facility] Cholecalciferol 1,000 unit 02/24/17 09:00 02/24/17 14:00 Vitamin D3 PO Not Given DAILY [facility] Cyanocobalamin 1,000 mcg 02/24/17 09:00 02/24/17 14:00 Vitamin B-12 PO Not Given DAILY [facility] Docusate Sodium 100 mg 02/24/17 00:00 02/24/17 14:00 Colace PO Not Given Q8HR [facility] Dextrose/Sodium Chloride 1,000 mls @ 75 mls/hr 02/24/17 06:30 02/24/17 06:50 Dextrose 5%-1/2ns Iv Soln IV 75 mls/hr .[id number] HAM Administration Losartan Potassium 150 mg 02/24/17 09:00 02/24/17 14:01 Cozaar PO Not Given DAILY HAM Non-Formulary Medication 1 puff 02/24/17 08:00 Glycopyrrolate/Formoterol Fum [Bevespi Aerosphere Inhaler] INHALATION RT-BID HAM Pantoprazole Sodium 40 mg 02/24/17 07:30 02/24/17 06:17 Protonix PO Not Given AC-BID HAM Intake and Output 02/24/17 02/24/17 02/24/17 06:59 14:59 22:59 Intake Total 100 675 Output Total 250 Balance -150 675 Intake: IV 100 200 NS 100 Potassium Chloride 10 meq 200 In Water For Injection 1 100ml.bag @ 100 mls/hr IVPB Q1H [facility] Rx#: [id number] Intake, IV Titration 475 Amount Dextrose 5%-0.45% NaCl 1, 375 000 ml @ 75 mls/hr IV . [id number] [facility] Rx#:[id number] Magnesium Sulfate-D5w Pmx 100 1 gm In Dextrose/Water 1 100ml.bag @ 100 mls/hr IVPB Q1H [facility] Rx#: [id number] Output: Urine 250 Other: Voiding Method Urinal # Voids 1 Weight 77 kg 02/24/17 04:24 02/24/17 04:24 Assessment and Plan Plan: Assessment #1 stroke possibly related to embolization #2 hypertension #3 dyslipidemia Plan #1 the patient will be scheduled to undergo transesophageal echocardiogram in the next few days #2 the surface echo was performed and showed no cardiac source of embolization #3 monitor the heart rhythm and monitor for A. fib #4 he was seen and evaluated by the neurology service #5 we'll continue following up with her
[2017-02-24] MEDS ORDERED: RX INFO: IV CONTRAST WAS GIVEN 1 EACH MISC MISCELLANE PRN (17:04)
[2017-02-24 17:07] LABS: Hemoglobin A1C 5.9 % (4.2-6.1)
[2017-02-24 17:19] LABS: Appearance,Urine Clear (Clear); Bilirubin,Urine Negative (Negative); Glucose,Urine (UA) Negative (Negative); Ketones,Urine Negative (Negative); Leukocyte Esterase,Urine Negative (Negative); Nitrite,Urine Negative (Negative); Protein,Urine Negative (Negative); Specific Gravity,Urine 1.006 (1.001-1.035); UA Billing (MACRO vs. MICRO) CHEM; Urobilinogen,Urine <2.0 mg/dL (<2.0)
--- NOTE | 2017-02-24 17:44 | XR ---
EXAMINATION TYPE: XR chest 1V portable DATE OF EXAM: 02/24/2017 5:13 PM CLINICAL HISTORY: NG tube placement. TECHNIQUE: Single AP portable upright view of the chest is obtained. COMPARISON: Chest x-ray from one day earlier FINDINGS: New nasogastric tube projects below left hemidiaphragm. There is chronic parenchymal dubois e without suspicious focal airspace opacity, pleural effusion, or pneumothorax seen. Cardiac silhouet te size is upper limits of normal with ectatic thoracic aorta redemonstrated. Osseous structures are somewhat demineralized. IMPRESSION: Chronic parenchymal changes without acute pulmonary process felt stable. Satisfactory adela cement of nasogastric tube noted.
--- NOTE | 2017-02-24 19:58 | HP ---
REASON FOR ADMISSION: Change in mental status and acute right-sided weakness. HISTORY OF PRESENT ILLNESS: This is a 66-year-old gentleman who apparently was being evaluated for dementia and some remote history of previous stroke which has caused some right-sided weakness, was brought into the hospital by his , as patient was apparently lethargic within 3 hours prior to admission. Patient apparently was also noted to have a significant amount of right-sided weakness. Patient was having difficulty walking. Much of the history is obtained from the patient's and the chart review. Patient apparently was having some difficulty walking and problems with speech at the time of presentation to the emergency room. The patient, however, improved overnight on admission to the hospital. Patient was being evaluated by Dr. Baca and consideration for medication for what appears to be vascular dementia. Of note, patient has been off aspirin at this time, apparently underwent upper endoscopy, was noted to have a gastric ulcer that was nonbleeding on January 03. EKG did not reveal any acute abnormalities or atrial fibrillation. Patient underwent a transthoracic echocardiogram, which showed a normal LV function without any thrombus or abnormalities. PAST MEDICAL HISTORY: 1. GERD. 2. History of gastric ulcer. 3. Dyslipidemia. 4. Hypertension. 5. Evaluation for vascular dementia. PAST SURGICAL HISTORY: Hernia repair, joint replacement, orthopedic surgery. SOCIAL HISTORY: Ongoing tobacco use, about a pack of cigarettes daily. Denies any illicit drug use. Currently , lives at home. No significant alcohol use is reported. Medications include: 1. Lipitor. 2. Vitamin D3. 3. B12. 4. ( ). 5. Omeprazole. 6. Amlodipine/olmesartan. The medication doses were appropriately reviewed and reconciled on admission. ALLERGIES: No known drug allergies. REVIEW OF SYSTEMS: A 14-point review of system was done; none pertinent other than what was mentioned in the HPI. PHYSICAL EXAM: VITALS: Temperature 98.5, heart rate 67, respiratory rate 14, blood pressure is 158/82. GENERAL APPEARANCE: Appears to answer questions appropriately. Head is atraumatic, normocephalic. Pupils are equal, round, and react to light and accommodation. Extraocular movements are intact. No visual field deficits are reported. Neck is supple. No JVD. No significant carotid bruits. HEART: S1, S2 heard. A systolic murmur is appreciated, 2 to 3 out of 6 in intensity, predominantly loud at the apex. ABDOMEN: Soft, nontender, no organomegaly. LOWER EXTREMITIES: No significant edema appreciated. NEURO: A trace facial droop on the left side. No dysarthria appreciated. Muscle strength is 4 out of 5 on the right upper extremity, 5 out of 5 on right lower extremity. Left upper and left lower extremity is 5 out of 5. Lab values include sodium 139, potassium 3.3, chloride 103, bicarb 28, BUN 14, creatinine 1.18. Hemoglobin 9.6, hematocrit 29.2, white count 6.1, platelets of 273. MRI of the brain reveals multiple bilateral acute strokes concerning for an embolic phenomenon. ASSESSMENT: 1. Acute cerebrovascular accident, bi-hemispheric stroke secondary to embolic phenomena. Rule out cardiac etiologies. 2. History of gastric ulcer. 3. Anemia of unknown etiology. 4. History of hypertension. 5. Dyslipidemia. 6. Dementia. Vitamin D3 insufficiency. 7. Ongoing tobacco use. 8. Chronic obstructive pulmonary disease that is stable. PLAN: Continue neuro checks. A cardiology consultation will be obtained to perform a YESICA to rule out an atrial myxoma among other etiologies. I did discuss the risks of the gastric ulcer; however, the patient would benefit from being on an 81-mg aspirin. Will evaluate patient's iron profile. Patient was evaluated by the neurologist as well. Statin is to continue. PT, OT consultation will be obtained.
--- NOTE | 2017-02-24 21:51 | CT ---
EXAMINATION TYPE: CT angio head neck DATE OF EXAM: 02/24/2017 9:01 PM HISTORY: Multiple bilateral strokes, recent abnormal MRI. COMPARISON: Carotid ultrasound from earlier today CT DLP: 480 mGycm. Automated Exposure Control for Dose Reduction was Utilized. TECHNIQUE: CTA scan of the neck is performed with IV Contrast, patient injected with 65 mL of Omnipa que 350, axial images are obtained, coronal and sagittal reformatted images are reviewed. Three-D rec onstructed images are created on an independent workstation and reviewed. FINDINGS: Carotid/Vascular Structures: There is bovine type arch with common origin of right brachiocephalic an d left common carotid arteries. There is mild noncalcified plaque in aortic arch. Right common caroti d artery shows normal origin from the right brachiocephalic artery without significant stenosis seen best on coronal image 14, tortuous course is present. There is tortuous medial course to the right co mmon carotid artery without significant plaque or stenosis. No significant plaque is seen at right ca rotid bulb. No significant plaque or stenosis is identified in the tortuous right internal carotid ar marian. Patent external carotid artery is seen without significant stenosis. Left common carotid artery shows origin from bovine arch with tortuous course proximally and then med ial course and proximal to mid segment. No significant focal plaque or stenosis is seen. There is mod erate eccentric calcified plaque at left carotid bulb and into proximal internal carotid artery witho ut significant stenosis. There is patent left external carotid artery without significant plaque or s tenosis. There is dominant right vertebral artery. Vertebral arteries are patent to basilar junction. There is no significant focal stenosis in the posterior circulation. There are hypoplastic posterior communic ating arteries seen bilaterally. Images of the anterior circulation show no significant focal stenosis or aneurysmal change. Patent an terior communicating artery is not definitively seen. Other: Some moderate to advanced low attenuation of periventricular white matter is redemonstrated. T here is mucosal thickening and partial opacification involving ethmoid and sphenoid sinuses bilateral ly. There is a nasogastric tube partially imaged. There is underlying mild emphysematous change felt present. IMPRESSION: 1. No dissection or significant stenosis in common or internal carotid arteries bilaterally. 2. No aneurysmal change or significant stenosis at level of [place].
[2017-02-24] MEDS ORDERED: ASPIRIN 325 MG TAB PO SCH (23:29)
[2017-02-25 07:14] LABS: Anisocytosis Slight; Basophils % (A) 1 %; CH 31.2; Eosinophils # (A) 0.1 k/uL (0-0.7); Eosinophils % (A) 1 %; HCT 32.8 % (39.0-53.0); HDW 2.69; HGB 10.6 gm/dL (13.0-17.5); Luc # (Auto) 0.21; Luc % (Auto) 3; Lymphocytes % (A) 31 %; MCH 30.7 pg (25.0-35.0); MCHC 32.4 g/dL (31.0-37.0); MCV 94.7 fL (80.0-100.0); Mean Platelet Volume 6.5; Monocytes # (A) 0.4 k/uL (0-1.0); Monocytes % (A) 6 %; Neutrophils # (A) 3.8 k/uL (1.3-7.7); Neutrophils % (A) 58 %; RBC 3.46 m/uL (4.30-5.90); WBC 6.5 k/uL (3.8-10.6); WBC (Perox) 6.77
[2017-02-25 07:21] LABS: ALT 30 U/L (21-72); AST 21 U/L (17-59); Alkaline Phosphatase 118 U/L (38-126); Anion Gap 9 mmol/L; Blood Urea Nitrogen 9 mg/dL (9-20); Calcium 9.7 mg/dL (8.4-10.2); Carbon Dioxide 26 mmol/L (22-30); Chloride 103 mmol/L (98-107); Glucose 113 mg/dL (74-99); Magnesium 1.9 mg/dL (1.6-2.3); Non-African American GFR(MDRD) >60 (>60 ml/min/1.73 sqM); Potassium 3.4 mmol/L (3.5-5.1); Sodium 138 mmol/L (137-145); Total Bilirubin 0.7 mg/dL (0.2-1.3); Total Protein 7.6 g/dL (6.3-8.2)
--- NOTE | 2017-02-25 07:47 | EEG ---
DATE OF SERVICE: 02/24/[address] Church. INTERPRETING PHYSICIAN: Dr. Dino Mcghee INDICATIONS FOR EXAMINATION: This patient is a 66-year-old male being about being evaluated for acute left-sided weakness and increased confusion. AGE: 66Y EEG FINDINGS: A routine 21-channel, awake digital EEG recording was accomplished utilizing the 10 - 20 international system with bipolar and referential montages. The background activity in the most alert resting state consists of a low to medium amplitude, poorly developed and poorly sustained 5 Hz activity over the posterior head regions. This posterior rhythm attenuates to eye opening. There is a small amount of low amplitude 18 to 20 Hz beta activity seen maximally over the anterior head regions. Muscle and movement artifact was observed on a few occasions during the tracing. Hyperventilation was not performed. Photic stimulation at flash frequencies of 2 to 30 Hz produced a minimal occipital driving response. No epileptiform discharges were seen. IMPRESSION: This EEG gives evidence of a severe widespread diffuse disturbance in cerebral function. The EEG failed to reveal any focal, lateralized or epileptiform abnormalities. Clinical correlation is recommended.
--- NOTE | 2017-02-25 08:39 | XR ---
EXAMINATION TYPE: XR chest 1V portable DATE OF EXAM: 02/25/2017 8:28 AM CLINICAL HISTORY: Difficulty breathing progress study. NG tube placement. TECHNIQUE: Single AP portable upright view of the chest is obtained. COMPARISON: Chest x-ray from one day earlier FINDINGS: A nasogastric tube is stable in appearance. Lungs remain clear without pleural effusion or pneumothorax seen bilaterally. Cardiac silhouette size is stable and within normal limits with ectat ic thoracic aorta redemonstrated. Osseous structures are intact. IMPRESSION: Overall stable findings, no acute cardiopulmonary process identified.
[2017-02-25] MEDS: ATORVASTATIN 40 MG TAB PO SCH (10:30)
[2017-02-25] MEDS: ASPIRIN 81 MG CHEW PO SCH (10:30)
[2017-02-25] MEDS: LOSARTAN 50 MG TAB PO SCH (10:30)
[2017-02-25] MEDS: CHOLECALCIFEROL 1,000 UNIT TAB PO SCH (10:30)
[2017-02-25] MEDS: amLODIPine 10 MG TAB PO SCH (10:30)
[2017-02-25] MEDS: PANTOPRAZOLE 40 MG TABLET PO SCH ×2 (10:30→18:33)
[2017-02-25] MEDS: DOCUSATE 100 MG CAP PO SCH ×3 (10:31→22:15)
[2017-02-25] MEDS: CYANOCOBALAMIN 500 MCG TAB PO SCH (10:31)
[2017-02-25 11:45] LABS: Iron 27 ug/dL (49-181)
[2017-02-25 11:54] LABS: Total Iron Binding Capacity 245 ug/dL (261-462)
[2017-02-25 12:35] LABS: Vitamin B12 840 pg/mL
--- NOTE | 2017-02-25 14:40 | P.PN ---
Progress Note - Text This is a pleasant 66-year-old -[place] gentleman with a past medical history significant for hypertension and dyslipidemia was admitted to the hospital with stroke. The patient was in his usual state of health until yesterday when he started experiencing left-sided weakness and his noticed his speech became slow and he was a slightly confused. He did not lose his consciousness. He did not experience any symptoms of chest pain or chest discomfort. He underwent an MRI of the brain and that showed what it seems to be lacking her stroke in multiple location consistent with possible embolization. We get involved in the care of the patient to rule out any cardiac source of embolization. 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 He underwent an echocardiogram which showed normal LV function without any significant valvular abnormalities. The patient will be scheduled to undergo transesophageal echocardiogram in the next 48 hours.
--- NOTE | 2017-02-25 15:08 | P.PN ---
Subjective This patient is a 66-year-old -[place] male who was admitted yesterday to the hospital for evaluation of altered mental status and possible stroke. Patient was noted by his is having increased confusion and change in mentation. He was apparently brought into the hospital yesterday and admitted to the intensive care unit. Patient was seen in the ICU yesterday for full neurological evaluation. His neurological examination revealed him to have significant left-sided weakness. He was recommended to undergo an MRI of the brain. MRI of the brain was completed yesterday and revealed evidence of multifocal lacunar infarcts bilaterally. These were felt to be acute in nature possibly representing embolic phenomenon. Cardiology was consulted for further evaluation as for need for a YESICA procedure. Patient is being scheduled for YESICA possibly tomorrow. Due to the multiple bilateral hemispheric involvement he was sent for a CTA angiogram study of the head and neck yesterday There was no evidence for dissection or significant internal carotid artery stenosis bilaterally. No evidence for any aneurysmal change at the [place] level. Results of the CT angiogram were reviewed yesterday with the patient and his . As noted he is being scheduled for YESICA procedure possibly to be done tomorrow by cardiology. We will continue close neurological follow-up for the patient during this admission. His overall prognosis at this time remains guarded. Objective - Vital Signs Vital signs: Vital Signs Temp 99.8 F H 02/25/17 08:00 Pulse 101 H 02/25/17 08:00 Resp 18 02/25/17 08:00 BP 153/95 02/25/17 08:00 Pulse Ox 97 02/25/17 08:00 Intake & Output 02/24/17 02/25/17 02/25/17 18:59 06:59 18:59 Intake Total 675 1200 Balance 675 1200 Weight 77 kg 73.5 kg Intake: IV 200 1200 Potassium Chloride 10 meq 200 1200 In Water For Injection 1 100ml.bag @ 100 mls/hr IVPB Q1H [facility] Rx#: [id number] Intake, IV Titration 475 Amount Dextrose 5%-0.45% NaCl 1, 375 000 ml @ 75 mls/hr IV . [id number] [facility] Rx#:[id number] Magnesium Sulfate-D5w Pmx 100 1 gm In Dextrose/Water 1 100ml.bag @ 100 mls/hr IVPB Q1H [facility] Rx#: [id number] Other: Voiding Method Urinal Urinal Urinal # Voids 1 1 - Exam Physical examination: PHYSICAL EXAMINATION: Patient is resting comfortably in bed. VITAL SIGNS: Blood pressure is [153/95]. Heart rate is [101]. Respiration is [18 ]. Temperature is [99.8]. HEENT: Head is atraumatic, neck is supple, there were no carotid bruits. CHEST: Lungs are clear to auscultation and percussion. CARDIAC: S1, S2 normal rate and rhythm. There is no murmur. ABDOMEN: Soft and nontender. Bowel sounds are present. EXTREMITIES: There is no pedal edema. Peripheral pulses are present. Neurological examination: Patient's neurological examination is unchanged from yesterday. Patient is more awake and alert today. He is following all simple commands. He is sitting up and is appropriate for his age. Patient continues to have evidence of a left upper extremity pronator drift. Facial droop is slightly improved on the left side. - Labs CBC & Chem 7: 02/25/17 06:46 02/25/17 06:46 Labs: Abnormal Lab Results - Last 24 Hours (Table) 02/24/17 02/25/17 02/25/17 Range/Units 04:24 06:46 06:46 RBC 3.46 L (4.30-5.90) m/uL Hgb 10.6 L (13.0-17.5) gm/dL Hct 32.8 L (39.0-53.0) % RDW 16.0 H (11.5-15.5) % Potassium 3.4 L (3.5-5.1) mmol/L Glucose 113 H (74-99) mg/dL LDL Cholesterol, Calc 112 H (0-99) mg/dL HDL Cholesterol 39 L (40-60) mg/dL Microbiology - Last 24 Hours (Table) 02/24/17 17:10 Urine Culture - Preliminary Urine,Clean Catch Assessment and Plan (1) Acute right arterial ischemic stroke, MCA (middle cerebral artery) Status: Acute Code(s): I63.511 - CEREB INFRC D/T UNSP OCCLS OR STENOS OF RIGHT MID CEREB ART (2) Dysphagia Status: Acute Code(s): R13.10 - DYSPHAGIA, UNSPECIFIED (3) Peptic ulcer disease Status: Acute Code(s): K27.9 - PEPTIC ULC, SITE UNSP, UNSP AC OR CHR, W/O HEMOR OR PERF (4) Hypertension Status: Acute Code(s): I10 - ESSENTIAL (PRIMARY) HYPERTENSION (5) Hyperlipidemia Status: Acute Code(s): E78.5 - HYPERLIPIDEMIA, UNSPECIFIED Plan: This patient is a 66-year-old -Guyanese male who was seen yesterday in the intensive care unit for evaluation of altered mental status and left-sided weakness. His initial evaluation in the ICU yesterday revealed him to have a left pronator drift as well as a left facial droop. He was sent for an MRI of the brain yesterday which did reveal evidence of multiple acute lacunar infarctions involving both hemispheres. Cardiology was consulted for further evaluation of possible cardioembolic phenomena for this patient. He was seen by cardiology yesterday and he is to be scheduled for YESICA procedure tomorrow. The patient also underwent CTA angiogram of the head and neck. This study came back negative for any evidence of acute changes. Patient has shown slight improvement in his overall mental status today as compared to yesterday. We will continue further stroke evaluation for this patient. We're waiting further recommendations of cardiology and the results of his YESICA procedure which is to be done tomorrow. His overall prognosis at this time remains very guarded.
--- NOTE | 2017-02-25 19:59 | PN ---
Subjective data/interval history: This is a 66-year-old gentleman who was admitted to the hospital with change in mental status and right sided ( ). The patient was admitted to the hospital with ongoing care for evaluation of a stroke. MRI of the brain was done, which noted multiple lacunar infarcts involving both hemispheres. This is only usually seen in an embolic phenomena. The initial evaluation for a cardiac source with TTE was negative. EF was 55% to 60%. No signs of atrial fibrillation was noted. Today patient appears improved. He is able to move his right upper and lower extremities. Family was at bedside and stated that he is at normal baseline. Continues to have NG tube. This was failure of swallow eval on the day of admission. Patient does not have any fevers, chills, nausea, vomiting, or diarrhea. PHYSICAL EXAMINATION: Vitals on include temperature 99.3, heart rate is 89, respiratory rate 16, blood pressure 133/89. Saturating 99% on room air. GENERAL: Appears alert and oriented x3. Does not appear to be in distress. Head is atraumatic, normocephalic. Pupils equal, round, and react to light and accommodation. Neck is supple. No JVD. LUNGS: Good air movement. Clear to auscultation. No rhonchi, wheezing or crackles. HEART: S1, S2 heard. Regular rate and rhythm. No murmurs appreciated. ABDOMEN: Soft, nontender, no organomegaly. Bowel sounds intact. LOWER EXTREMITIES: No edema noted. NEUROLOGICAL exam: Cranial nerves grossly intact involving the 3, 4, 6 involving the extraocular movements, facial nerve appears to be appropriate, spinal accessory nerve appears to be appropriate. Patient did fail his swallowing eval, hence, the examination of that is deferred. Patient does appear to have a good cough reflex as well. Strength is 5 out of 5 in left upper and left lower extremities; on the right upper extremity strength is 4 out of 5 and on right lower extremity strength is 5/5; deep tendon reflexes appear to be within normal limits. Laboratory data include: Hemoglobin 10.6, hematocrit 32.8, white count of 6.5, platelets of 316. Sodium 138, potassium 3.4, chloride 103, bicarb 26, BUN 9, creatinine of 1.12, iron profile was done with iron level, iron saturation of 11 and TIBC that is low as well. Vitamin B12 level is 840 which is appropriate. ASSESSMENT AND PLAN: 1. Acute embolic bihemispheric stroke causing dysphagia and some right-sided weakness. 2. History of dementia. 3. History of hypertension. 4. Dyslipidemia. 5. Vitamin D3 insufficiency. 6. Anemia of chronic disease. PLAN: Await YESICA results. Patient is to continue on aspirin and statin at this time. We will discontinue the NG tube once patient passes a swallow eval. A barium swallow, modified study is to be done. Will order DVT prophylaxis with Lovenox at this time as patient is bedridden. PT, OT will be consulted tomorrow and appropriate evaluations. With the patient having embolic phenomenon, an infection etiology is unlikely as patient does not have fevers, the patient has not been on antibiotics. If a cardiac source is negative, will need to scan the abdomen at that time as well. Will follow up.
[2017-02-25] MEDS: BEVESPI AEROSPHERE INHALATION SCH ×2 (20:00→22:15)
[2017-02-25] MEDS ORDERED: ZOLPIDEM 5 MG TAB PO PRN (21:33)
[2017-02-26] MEDS: DEXTROSE 5%-0.45% NACL 1,000 ML IV SCH ×4 (05:29→16:24)
[2017-02-26] MEDS: PANTOPRAZOLE 40 MG TABLET PO SCH ×2 (06:43→16:25)
[2017-02-26 07:18] LABS: Anisocytosis Slight; Basophils % (A) 0 %; CH 31.7; CHCM 34.1; Eosinophils % (A) 0 %; HCT 32.9 % (39.0-53.0); HDW 2.82; HGB 10.9 gm/dL (13.0-17.5); Luc # (Auto) 0.19; Luc % (Auto) 2; Lymphocytes # (A) 1.3 k/uL (1.0-4.8); Lymphocytes % (A) 14 %; MCH 30.9 pg (25.0-35.0); MCHC 33.1 g/dL (31.0-37.0); MCV 93.2 fL (80.0-100.0); Mean Platelet Volume 6.7; Monocytes # (A) 0.4 k/uL (0-1.0); Monocytes % (A) 4 %; Neutrophils # (A) 7.7 k/uL (1.3-7.7); Neutrophils % (A) 80 %; RBC 3.53 m/uL (4.30-5.90); RDW 16.1 % (11.5-15.5); WBC 9.7 k/uL (3.8-10.6); WBC (Perox) 10.25
[2017-02-26 07:28] LABS: ALT 29 U/L (21-72); AST 21 U/L (17-59); Alkaline Phosphatase 115 U/L (38-126); Anion Gap 12 mmol/L; Blood Urea Nitrogen 9 mg/dL (9-20); Calcium 9.7 mg/dL (8.4-10.2); Carbon Dioxide 24 mmol/L (22-30); Chloride 103 mmol/L (98-107); Glucose 129 mg/dL (74-99); Non-African American GFR(MDRD) >60 (>60 ml/min/1.73 sqM); Potassium 3.4 mmol/L (3.5-5.1); Sodium 139 mmol/L (137-145); Total Bilirubin 0.8 mg/dL (0.2-1.3); Total Protein 7.6 g/dL (6.3-8.2)
--- NOTE | 2017-02-26 07:58 | P.PN ---
Subjective Principal diagnosis: attending care. CVA. This is a continue present on a 66-year-old black male who saw my patient care coordinator this past Sunday but was essentially admitted for CVA. YESICA is pending. Otherwise embolization is considered significant. He still continues to smoke. No voiding difficulties. NG tube is noted. Therapy is also consulted. Hopefully we can consider doing a swallowing study. Objective - Vital Signs Vital signs: Vital Signs Temp 97.7 F 02/25/17 20:00 Pulse 91 02/26/17 04:00 Resp 18 02/26/17 04:00 BP 160/85 02/25/17 23:58 Pulse Ox 93 L 02/25/17 23:58 Intake & Output 02/25/17 02/26/17 02/26/17 18:59 06:59 18:59 Intake Total 1125 Balance 1125 Intake: IV 900 NS 900 Intake, IV Titration 225 Amount Dextrose 5%-0.45% NaCl 1, 225 000 ml @ 75 mls/hr IV . [id number] [facility] Rx#:[id number] Oral 0 Other: Voiding Method Urinal Urinal # Voids 1 - Constitutional General appearance: Present: thin - EENT Eyes: Absent: abnormal pupil - Neck Neck: Absent: lymphadenopathy - Respiratory Respiratory: bilateral: diminished - Cardiovascular Rhythm: regular Heart sounds: normal: S1, S2 - Gastrointestinal General gastrointestinal: Present: soft. 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 However, he is following directions appropriately and speech does not necessarily seem overly slurred. - Labs CBC & Chem 7: 02/26/17 06:52 02/26/17 06:48 Labs: Abnormal Lab Results - Last 24 Hours (Table) 02/25/17 02/26/17 02/26/17 Range/Units 06:46 06:48 06:52 RBC 3.53 L (4.30-5.90) m/uL Hgb 10.9 L (13.0-17.5) gm/dL Hct 32.9 L (39.0-53.0) % RDW 16.1 H (11.5-15.5) % Potassium 3.4 L 3.4 L (3.5-5.1) mmol/L Glucose 113 H 129 H (74-99) mg/dL Iron 27 L (49-181) ug/dL TIBC 245 L (261-462) ug/dL % Saturation 11.0 L (20-50) % Microbiology - Last 24 Hours (Table) 02/24/17 17:10 Urine Culture - Final Urine,Clean Catch Assessment and Plan (1) COPD (chronic obstructive pulmonary disease) Status: Acute (2) Acute right arterial ischemic stroke, MCA (middle cerebral artery) Status: Acute (3) Dysphagia Status: Acute (4) Hyperlipidemia Status: Acute (5) Hypertension Status: Acute Plan: appreciate neurology and cardiology input. YESICA is pending today. Check CBC and CMP in a.m. See orders otherwise. Time with Patient: Greater than 30
[2017-02-26] MEDS ORDERED: fentaNYL (PF) 50 MCG/ML 2 ML AMP ONE (10:14)
[2017-02-26] MEDS ORDERED: MIDAZOLAM 2 MG/2 ML VIAL ONE (10:14)
[2017-02-26] MEDS ORDERED: IV FLUID CONTINUATION 1,000 ML IV ONE (10:23)
[2017-02-26] MEDS ORDERED: fentaNYL (PF) 50 MCG/ML 2 ML AMP IV ONE (10:42)
[2017-02-26] MEDS ORDERED: MIDAZOLAM 2 MG/2 ML VIAL IV ONE ×2 (10:42→10:46)
[2017-02-26] MEDS ORDERED: PROPOFOL 10 MG/ML 20 ML VIAL IV ONE (11:08)
--- NOTE | 2017-02-26 11:54 | ECHOT ---
DATE OF SERVICE: 02/26/2017 PERFORMING PHYSICIAN: Baron Moctezuma MD, Disc Recordist. PROCEDURE PERFORMED: Transesophageal echocardiogram. INDICATION: This is a pleasant 66-year-old gentleman who was admitted to the hospital with a stroke, felt to be related to embolization. The YESICA is to rule out any cardiac source of embolization. SEDATION: Initially we attempted conscious sedation, but I was unable to intubate the patient, so I ended doing deep sedation with anesthesiologist in the room and using propofol. COMPLICATIONS: None. LEVEL OF SEDATION: Moderate. PROCEDURE DESCRIPTION: After obtaining an informed consent, the patient was brought to the transesophageal echocardiogram room. A pulse oximetry and heart rate monitors were attached to the patient prior to the procedure. The patient was turned into left lateral position. Subsequently, the transesophageal echocardiogram probe was advanced to the midesophagus, where a 2-D echocardiogram images as well as color Doppler images of various cardiac structures were obtained. Particular attention was paid to any cardiac source of embolization. The procedure was completed without any complication. FINDINGS: The left ventricular dimension and systolic function appeared to be within normal limits. The ejection fraction seems to be in the range of 55% to 60% with a normal wall motion. The right ventricle seems to be of normal size and function. The left atrium and right atrium dimension appeared to be within normal limits. The left atrial appendage appeared to be free from any thrombus. The interatrial septum appeared to be intact without any evidence of shunt. The aortic valve appeared to be thickened without stenosis or regurgitation. The mitral valve seems to be normal with trace MR. There is moderate tricuspid regurgitation seen. CONCLUSION: 1. No evidence of cardiac source of embolization. 2. Intact intra-atrial septum without any evidence of shunt. 3. Normal left atrial appendage. 4. Normal left ventricular dimension and systolic function. 5. Concentric left ventricular hypertrophy. 6. Overall normal cardiac chamber sizes. 7. Overall normal intracardiac valves. 8. Normal aortic root dimension. 9. No evidence of pericardial effusion. FINDINGS: FINAL IMPRESSION:
[2017-02-26] MEDS: BEVESPI AEROSPHERE INHALATION SCH ×2 (12:36→20:58)
[2017-02-26] MEDS: LOSARTAN 50 MG TAB PO SCH (12:53)
[2017-02-26] MEDS: CYANOCOBALAMIN 500 MCG TAB PO SCH (12:53)
[2017-02-26] MEDS: amLODIPine 10 MG TAB PO SCH (12:53)
[2017-02-26] MEDS: ASPIRIN 81 MG CHEW PO SCH (12:53)
[2017-02-26] MEDS: ATORVASTATIN 40 MG TAB PO SCH (12:54)
[2017-02-26] MEDS: DOCUSATE 100 MG CAP PO SCH (12:54)
[2017-02-26] MEDS: CHOLECALCIFEROL 1,000 UNIT TAB PO SCH (12:54)
[2017-02-26] MEDS: ENOXAPARIN 40 MG/0.4 ML SYRINGE SQ SCH (12:54)
[2017-02-26] MEDS: DOCUSATE ORAL SOLN 100 MG/10 ML CUP NG-TUBE SCH (16:25)
--- NOTE | 2017-02-26 19:16 | P.PN ---
Subjective This patient is a 66-year-old -[place] male who was admitted to the hospital for evaluation of altered mental status and possible stroke. Patient was noted by his is having increased confusion and change in mentation. He was apparently brought into the hospital yesterday and admitted to the intensive care unit. Patient was seen in the ICU yesterday for full neurological evaluation. His neurological examination revealed him to have significant left-sided weakness. He was recommended to undergo an MRI of the brain. MRI of the brain was completed yesterday and revealed evidence of multifocal lacunar infarcts bilaterally. These were felt to be acute in nature possibly representing embolic phenomenon. Cardiology was consulted for further evaluation as for need for a YESICA procedure. Patient is being scheduled for YESICA possibly today. Due to the multiple bilateral hemispheric involvement he was sent for a CTA angiogram study of the head and neck yesterday There was no evidence for dissection or significant internal carotid artery stenosis bilaterally. No evidence for any aneurysmal change at the [place] level. Results of the CT angiogram were reviewed yesterday with the patient and his . As noted he is being scheduled for YESICA procedure possibly to be done today by cardiology. YESICA procedure was completed today and revealed no evidence of cardiac source of embolization. No evidence of PFO. We will await further recommendations from cardiology regarding further management for this patient. We reviewed the results of the YESICA today with the patient and and family at bedside. All their questions were answered. He does appear to be more confused today. We have recommended a stat computed tomography scan of the brain to be done this evening to rule out any new areas of acute stroke. Patient is to be seen by pulmonary medicine is he is having increasing symptoms of pulmonary congestion. He is noted to have some mild respiratory distress this evening. We will continue close neurological follow-up for the patient during this admission. His overall prognosis at this time remains guarded. Objective - Vital Signs Vital signs: Vital Signs Temp 99.1 F 02/26/17 11:44 Pulse 94 02/26/17 16:00 Resp 14 02/26/17 16:00 BP 145/81 02/26/17 16:00 Pulse Ox 100 02/26/17 16:00 Intake & Output 02/25/17 02/26/17 02/26/17 18:59 06:59 18:59 Intake Total 1125 600 Balance 1125 600 Intake: IV 900 NS 900 Intake, IV Titration 225 600 Amount Dextrose 5%-0.45% NaCl 1, 225 600 000 ml @ 75 mls/hr IV . [id number] [facility] Rx#:[id number] Oral 0 Other: Voiding Method Urinal Urinal Urinal # Voids 1 1 - Exam Physical examination: PHYSICAL EXAMINATION: Patient is resting comfortably in bed. VITAL SIGNS: Blood pressure is [145/81]. Heart rate is [94]. Respiration is [18] . Temperature is [99.1]. HEENT: Head is atraumatic, neck is supple, there were no carotid bruits. CHEST: Lungs are clear to auscultation and percussion. CARDIAC: S1, S2 normal rate and rhythm. There is no murmur. ABDOMEN: Soft and nontender. Bowel sounds are present. EXTREMITIES: There is no pedal edema. Peripheral pulses are present. Neurological examination: Patient's neurological examination is unchanged from yesterday. Patient is more confused today and having more difficulty with his speech. He is following all simple commands. Patient continues to have evidence of a left upper extremity pronator drift. Facial droop is slightly improved on the left side. - Labs CBC & Chem 7: 02/26/17 06:52 02/26/17 06:48 Labs: Abnormal Lab Results - Last 24 Hours (Table) 02/26/17 02/26/17 Range/Units 06:48 06:52 RBC 3.53 L (4.30-5.90) m/uL Hgb 10.9 L (13.0-17.5) gm/dL Hct 32.9 L (39.0-53.0) % RDW 16.1 H (11.5-15.5) % Potassium 3.4 L (3.5-5.1) mmol/L Glucose 129 H (74-99) mg/dL Microbiology - Last 24 Hours (Table) 02/24/17 17:10 Urine Culture - Final Urine,Clean Catch Assessment and Plan (1) Acute right arterial ischemic stroke, MCA (middle cerebral artery) Status: Acute Code(s): I63.511 - CEREB INFRC D/T UNSP OCCLS OR STENOS OF RIGHT MID CEREB ART (2) Dysphagia Status: Acute Code(s): R13.10 - DYSPHAGIA, UNSPECIFIED (3) Peptic ulcer disease Status: Acute Code(s): K27.9 - PEPTIC ULC, SITE UNSP, UNSP AC OR CHR, W/O HEMOR OR PERF (4) Hypertension Status: Acute Code(s): I10 - ESSENTIAL (PRIMARY) HYPERTENSION (5) Hyperlipidemia Status: Acute Code(s): E78.5 - HYPERLIPIDEMIA, UNSPECIFIED Plan: This patient is a 66-year-old -Mex[place] male who was seen yesterday in the intensive care unit for evaluation of altered mental status and left-sided weakness. His initial evaluation in the ICU yesterday revealed him to have a left pronator drift as well as a left facial droop. He was sent for an MRI of the brain yesterday which did reveal evidence of multiple acute lacunar infarctions involving both hemispheres. Cardiology was consulted for further evaluation of possible cardioembolic phenomena for this patient. He was seen by cardiology yesterday and he is to be scheduled for YESICA procedure today. YESICA was completed today and results were reviewed. The YESICA is negative for any evidence of PFO or atrial thrombus. These results were discussed today with the patient and his at bedside. We will await further recommendations from cardiology. The patient also underwent CTA angiogram of the head and neck. This study came back negative for any evidence of acute changes. Patient is showing slight deterioration in his mental status today as compared to yesterday. We will obtain a stat computed tomography scan of the brain to rule out any new areas of stroke. Case was discussed today with the patient's at bedside. All of her questions were answered. She is aware of her husbands very guarded condition. We will continue further stroke evaluation for this patient. We are waiting further recommendations of cardiology and the results of his YESICA procedure which was done today. His overall prognosis at this time remains very guarded. Patient and his are updated on RESULTS today. We will continue close neurological follow-up for the patient. His overall prognosis at this time remains guarded.
--- NOTE | 2017-02-26 20:09 | CT ---
EXAMINATION TYPE: CT brain wo con DATE OF EXAM: 02/26/2017 7:46 PM COMPARISON: 02/23/2017 HISTORY: WEAKNESS AND ALTERED MENTAL STATUS. HX OF STROKE. CT DLP: 1012.7 mGycm Automated exposure control for dose reduction was used. FINDINGS: There is no acute intracranial hemorrhage, mass effect, or midline shift identified. The previously seen nonspecific low attenuation bilaterally within the [place] radiata and centrum semiovale is redem onstrated. The ventricles and sulci are within normal limits in size. The globes are intact and the visualized sinuses are clear. Skeletal structures are unremarkable. IMPRESSION: 1. NO NEW INTRACRANIAL PROCESS. 2. Incidental finding: Excessive cerumen left external auditory canal.
[2017-02-26 20:49] LABS: Glucose,Whole Blood 128 mg/dL (75-99)
--- NOTE | 2017-02-26 23:56 | XR ---
EXAM: XR Chest, 1 View CLINICAL HISTORY: Reason: Congestion, elevated temp TECHNIQUE: Frontal view of the chest. COMPARISON: 02/23/17 two-view exam FINDINGS: Lungs: Linear opacity at the left base suggests atelectasis. The lungs are otherwise clear. Pleural space: Unremarkable. No pneumothorax. Heart: The heart size is stable. Mediastinum: Mediastinal contours are stable including aortic ectasia. Bones/joints: The bones are stable including degenerative changes. Tubes, lines and devices: New NG tube, with side hole in the distal esophagus, tip at the proximal level of the GE junction. IMPRESSION: 1. Minimal linear opacities suggesting atelectasis now seen at the left base. 2. New NG tube with tip in proximity to the GE junction which needs to be advanced. The covering service is being contacted at time of dictation 2355 hrs. Eastern standard time. [employer] 02/26/17 23:59 Call Doctor Regarding Life Threatening Misplaced Tube or Line, called HANNAH Flowers on 02/26 23:59 (-04:00)
[2017-02-27] MEDS: ACETAMINOPHEN IV (For NPO) 1,000 MG in EMPTY BAG 1 BAG IVPB PRN ×2 (00:16→11:10)
[2017-02-27] MEDS: AZITHROMYCIN 500 MG in SODIUM CHLORIDE 0.9% 250 ML IVPB SCH ×2 (00:47→22:06)
[2017-02-27] MEDS: DOCUSATE ORAL SOLN 100 MG/10 ML CUP NG-TUBE SCH ×3 (01:50→16:57)
--- NOTE | 2017-02-27 03:24 | XR ---
EXAM: XR Chest, 1 View CLINICAL HISTORY: Reason: placement for NG tube TECHNIQUE: Frontal view of the chest. COMPARISON: Earlier portable chest of the same evening. FINDINGS: Lungs: Stable minimal linear opacity at the left base favoring atelectasis. Pleural space: Unremarkable. No pneumothorax. Heart: Stable appearance of the cardiomediastinal silhouette. Mediastinum: See above. Bones/joints: Stable. Tubes, lines and devices: Interval advancement of the NG tube, with its sidehole and tip now located below the GE junction within the left upper quadrant. IMPRESSION: Interval advancement of NG tube now seen extending into the stomach, as above.
[2017-02-27 06:09] LABS: Glucose,Whole Blood 137 mg/dL (75-99)
[2017-02-27 06:44] LABS: Anisocytosis Slight; CHCM 32.6; HCT 31.2 % (39.0-53.0); HGB 10.1 gm/dL (13.0-17.5); MCH 30.8 pg (25.0-35.0); MCHC 32.3 g/dL (31.0-37.0); MCV 95.2 fL (80.0-100.0); Mean Platelet Volume 6.8; RBC 3.28 m/uL (4.30-5.90); RDW 16.2 % (11.5-15.5); WBC 10.4 k/uL (3.8-10.6)
[2017-02-27 07:00] LABS: ALT 27 U/L (21-72); AST 19 U/L (17-59); Alkaline Phosphatase 96 U/L (38-126); Anion Gap 10 mmol/L; Blood Urea Nitrogen 12 mg/dL (9-20); Calcium 9.5 mg/dL (8.4-10.2); Carbon Dioxide 26 mmol/L (22-30); Chloride 102 mmol/L (98-107); Glucose 132 mg/dL (74-99); Non-African American GFR(MDRD) 51 (>60 ml/min/1.73 sqM); Potassium 3.5 mmol/L (3.5-5.1); Sodium 138 mmol/L (137-145); Total Bilirubin 0.8 mg/dL (0.2-1.3); Total Protein 6.8 g/dL (6.3-8.2)
--- NOTE | 2017-02-27 08:17 | P.PN ---
Subjective Principal diagnosis: Continuing care . The patient still has NG tube placement for suction. The patient is answering commands appropriately today. Had a long discussion with the family. They are concerned about his nutritional status. Speech therapy is pending. Question need for nasogastric feeding versus TPN. Objective - Vital Signs Vital signs: Vital Signs Temp 99.8 F H 02/27/17 04:00 Pulse 89 02/27/17 04:00 Resp 16 02/27/17 04:00 BP 141/76 02/27/17 04:00 Pulse Ox 98 02/27/17 04:00 Intake & Output 02/26/17 02/27/17 02/27/17 18:59 06:59 18:59 Intake Total 600 Balance 600 Weight 73 kg Intake: Intake, IV Titration 600 Amount Dextrose 5%-0.45% NaCl 1, 600 000 ml @ 75 mls/hr IV . [id number] [facility] Rx#:[id number] Other: Voiding Method Urinal Urinal # Voids 1 1 - Constitutional General appearance: Present: thin - Respiratory Respiratory: bilateral: CTA - Cardiovascular Rhythm: regular Heart sounds: normal: S1, S2 - Gastrointestinal General gastrointestinal: Present: soft. Absent: tenderness - Neurologic Neurologic: Present: CNII-XII intact - Psychiatric Psychiatric Comment(s): Flat affect - Labs CBC & Chem 7: 02/27/17 05:56 02/27/17 05:56 Labs: Abnormal Lab Results - Last 24 Hours (Table) 02/26/17 02/27/17 02/27/17 Range/Units 20:47 01:15 05:56 RBC 3.28 L (4.30-5.90) m/uL Hgb 10.1 L (13.0-17.5) gm/dL Hct 31.2 L (39.0-53.0) % RDW 16.2 H (11.5-15.5) % Creatinine (0.66-1.25) mg/dL Glucose (74-99) mg/dL POC Glucose (mg/dL) 128 H (75-99) mg/dL Plasma Lactic Acid Del 0.6 L (0.7-2.0) mmol/L 02/27/17 02/27/17 Range/Units 05:56 05:58 RBC (4.30-5.90) m/uL Hgb (13.0-17.5) gm/dL Hct (39.0-53.0) % RDW (11.5-15.5) % Creatinine 1.40 H (0.66-1.25) mg/dL Glucose 132 H (74-99) mg/dL POC Glucose (mg/dL) 137 H (75-99) mg/dL Plasma Lactic Acid Del (0.7-2.0) mmol/L Assessment and Plan (1) COPD (chronic obstructive pulmonary disease) Status: Acute (2) Acute right arterial ischemic stroke, MCA (middle cerebral artery) Status: Acute (3) Dysphagia Status: Acute (4) Hyperlipidemia Status: Acute (5) Hypertension Status: Acute Plan: Question aspiration element. Speech therapy to ascertain whether he can feed orally or not. Otherwise, feeding tube versus TPN. Appreciate neurology input. Await pulmonology element for possible aspiration pneumonia versus COPD exacerbation Time with Patient: Greater than 30
[2017-02-27] MEDS: CYANOCOBALAMIN 500 MCG TAB PO SCH (09:16)
[2017-02-27] MEDS: ATORVASTATIN 40 MG TAB PO SCH (09:16)
[2017-02-27] MEDS: ASPIRIN 81 MG CHEW PO SCH (09:16)
[2017-02-27] MEDS: LOSARTAN 50 MG TAB PO SCH (09:16)
[2017-02-27] MEDS: amLODIPine 10 MG TAB PO SCH (09:16)
[2017-02-27] MEDS: CHOLECALCIFEROL 1,000 UNIT TAB PO SCH (09:16)
[2017-02-27] MEDS: ENOXAPARIN 40 MG/0.4 ML SYRINGE SQ SCH (10:19)
[2017-02-27] MEDS: DEXTROSE 5%-0.45% NACL 1,000 ML IV SCH (10:20)
[2017-02-27] MEDS: PANTOPRAZOLE 40 MG TABLET PO SCH ×2 (10:20→16:57)
--- NOTE | 2017-02-27 11:15 | P.CNPUL ---
History of Present Illness Consult date: 02/27/17 Requesting physician: Noah Rivas Reason for consult: COPD Chief complaint: Shortness of breath History of present illness: This is a 66-year-old male patient who is being evaluated and examined today on the sixth floor. Patient was brought into the emergency room I his apparently the patient had been lethargic for about 3 hours before coming to the emergency room. He was noted to have a significant amount of right-sided weakness and having difficulty walking as well as difficulty with speech. The patient does have a history of previous stroke which caused some right-sided weakness as well as dementia. Patient has being evaluated by neurology for what appears to be vascular dementia. She is also known to have a history of COPD, is a current every day smoker, 1 pack per day. Chest x-ray reveals some left basilar atelectasis. CT of the brain shows no new intracranial processes. Patient had a YESICA, Ejection fraction 55-60%. Upon examination the patient is resting up in bed with physical therapy at bedside. The patient did require oxygen in the form of 2 L over the past few days however on examination and is currently on room air. The patient does not use home oxygen. Patient does have a cough which is nonproductive. Review of Systems 14 point review of systems was completed and is negative other than what's noted in the HPI. 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 OCC EDEMA FEET. Current Gastric Ulcer. History of Any Multi-Drug Resistant Organisms: None Reported Past Surgical History: Hernia Repair, Joint Replacement, Orthopedic Surgery Additional Past Surgical History / Comment(s): RT TOTAL KNEE Past Anesthesia/Blood Transfusion Reactions: No Reported Reaction Past Psychological History: No Psychological Hx Reported Smoking Status: Current every day smoker Past Alcohol Use History: Occasional Additional Past Alcohol Use History / Comment(s): SMOKED < 1PPD FOR 38 YEARS EST. Past Drug Use History: None Reported - Past Family History Mother Family Medical History: No Reported History Medications and Allergies Home Medications Medication Instructions Recorded Confirmed Type Atorvastatin [Lipitor] 40 mg PO DAILY 02/23/17 02/23/17 History Cholecalciferol [Vitamin D3] 1,000 unit PO DAILY 02/23/17 02/23/17 History Cyanocobalamin (Vitamin B-12) 1,000 mcg PO DAILY 02/23/17 02/23/17 History [Vitamin B-12] Glycopyrrolate/Formoterol Fum 1 puff INHALATION RT-BID 02/23/17 02/23/17 History [Bevespi Aerosphere Inhaler] Omeprazole [PriLOSEC] 20 mg PO AC-BID 02/23/17 02/23/17 History amLODIPine BES/OLMESARTAN MED 1 tab PO DAILY 02/23/17 02/23/17 History [amLODIPine BES/OLMESARTAN MED 10-40 mg] Allergies Allergy/AdvReac Type Severity Reaction Status Date / Time No Known Allergies Allergy Verified 02/23/17 22:08 Physical Exam Vitals: Vital Signs Temp Pulse Resp BP BP Pulse Ox 02/27/17 10:24 99.3 F 02/27/17 08:00 102.2 F H 90 16 132/73 98 02/27/17 04:00 99.8 F H 89 16 141/76 98 02/26/17 23:05 102.8 F H 103 H 16 145/69 96 02/26/17 20:00 99.1 F 104 H 16 142/71 98 02/26/17 16:00 94 14 145/81 100 02/26/17 12:29 84 16 139/76 100 02/26/17 12:15 90 18 134/77 100 02/26/17 12:01 91 16 134/77 100 02/26/17 12:00 86 14 144/88 98 02/26/17 11:44 99.1 F 100 16 106/69 100 02/26/17 11:39 100 16 120/72 97 02/26/17 11:25 99 12 139/75 96 02/26/17 11:19 100 12 144/70 97 02/26/17 11:11 85 12 123/59 97 02/26/17 10:59 89 12 134/64 100 Intake and Output 02/26/17 02/27/17 02/27/17 22:59 06:59 14:59 Other: Voiding Method Urinal Urinal # Voids 1 1 Weight 73 kg GENERAL EXAM: Alert, comfortable in no apparent distress. HEAD: Normocephalic. EYES: Normal reaction of pupils, equal size. NOSE: Clear with pink turbinates. THROAT: No erythema or exudates. NECK: No masses, no JVD. CHEST: No chest wall deformity. LUNGS: Equal air entry with faint wheeze. Bases diminished CVS: S1 and S2 normal with systolic mumurs, regular rhythm. ABDOMEN: No hepatosplenomegaly, normal bowel sounds, no guarding or rigidity. EXTREMITIES: No edema noted, pedal pulses palpable. SKIN: No rashes CENTRAL NERVOUS SYSTEM: Slight muscle weakness noted to the right upper extremity. Results - Laboratory Findings CBC and BMP: 02/27/17 05:56 02/27/17 05:56 PT/INR, D-dimer PT 10.1 sec (9.0-12.0) 02/23/17 22:10 INR 1.0 (<1.1) 02/23/17 22:10 Abnormal lab findings: Abnormal Labs 02/24/17 02/24/17 02/24/17 00:23 04:24 04:24 RBC 3.05 L Hgb 9.6 L Hct 29.2 L RDW 16.5 H Potassium 3.3 L Creatinine Glucose POC Glucose (mg/dL) 124 H Plasma Lactic Acid Del Iron TIBC % Saturation LDL Cholesterol, Calc HDL Cholesterol 02/24/17 02/25/17 02/25/17 04:24 06:46 06:46 RBC 3.46 L Hgb 10.6 L Hct 32.8 L RDW 16.0 H Potassium 3.4 L Creatinine Glucose 113 H POC Glucose (mg/dL) Plasma Lactic Acid Del Iron 27 L TIBC 245 L % Saturation 11.0 L LDL Cholesterol, Calc 112 H HDL Cholesterol 39 L 02/26/17 02/26/17 02/26/17 06:48 06:52 20:47 RBC 3.53 L Hgb 10.9 L Hct 32.9 L RDW 16.1 H Potassium 3.4 L Creatinine Glucose 129 H POC Glucose (mg/dL) 128 H Plasma Lactic Acid Del Iron TIBC % Saturation LDL Cholesterol, Calc HDL Cholesterol 02/27/17 02/27/17 02/27/17 01:15 05:56 05:56 RBC 3.28 L Hgb 10.1 L Hct 31.2 L RDW 16.2 H Potassium Creatinine 1.40 H Glucose 132 H POC Glucose (mg/dL) Plasma Lactic Acid Del 0.6 L Iron TIBC % Saturation LDL Cholesterol, Calc HDL Cholesterol 02/27/17 05:58 RBC Hgb Hct RDW Potassium Creatinine Glucose POC Glucose (mg/dL) 137 H Plasma Lactic Acid Del Iron TIBC % Saturation LDL Cholesterol, Calc HDL Cholesterol Assessment and Plan Plan: Assessment Acute embolic bihemispheric stroke causing dysphasia and some right-sided weakness COPD Dementia Hypertension Dyslipidemia Anemia of chronic disease Nicotine dependence Plan Medications have been reviewed and will be continued. We will add budesonide to his nebulizer treatments. Incentive spirometer initiated and encouraged. We will continue with pulmonary hygiene and supportive care. Smoking cessation encouraged. We'll continue to monitor labs/results and adjust treatment as necessary. I performed an examination of the patient and discussed their management with the nurse practitioner. I have reviewed the nurse practitioner's note and agree with the documented findings and plan of care.
[2017-02-27 11:26] LABS: Glucose,Whole Blood 140 mg/dL (75-99)
[2017-02-27] MEDS: BEVESPI AEROSPHERE INHALATION SCH ×2 (14:57→20:25)
--- NOTE | 2017-02-27 15:40 | FL ---
MODIFIED SWALLOW / DEGLUTITION STUDY DATE OF EXAM: 02/27/2017 3:05 PM CLINICAL HISTORY: 66-year-old male rule out aspiration. Patient with recent CVA and trouble swallowin g. TECHNIQUE: Deglutition study is performed utilizing thin liquid barium and pureed consistencies. COMPARISON: None. FINDINGS: There is bolus holding with limited ability to initiate swallow requiring multiple cues. There is sis ent aspiration with thin liquids as well as pureed consistency secondary to poor laryngeal closure. A spiration is seen both during the swallow and after the swallow involving the residuals. The exam was terminated. IMPRESSION: 1. Bolus holding. Limited ability to initiate swallow. 2. Eventual swallow demonstrates silent aspiration occurring both during and after the swallows with thin liquid and pureed consistencies. 3. Please refer to speech therapist notes for further details if necessary.
--- NOTE | 2017-02-27 16:28 | P.PN ---
Subjective Principal diagnosis: CVA This is a pleasant 66-year-old -[place] gentleman with a past medical history significant for hypertension and dyslipidemia was admitted to the hospital with stroke.The patient was in his usual state of health until yesterday when he started experiencing left-sided weakness and his noticed his speech became slow and he was a slightly confused. He did not lose his consciousness. He did not experience any symptoms of chest pain or chest discomfort. He underwent an MRI of the brain and that showed what it seems to be lacking her stroke in multiple location consistent with possible embolization.We get involved in the care of the patient to rule out any cardiac source of embolization.The patient is not aware of any prior cardiac history and he never seen a lawyer criminal in the past.He underwent an echocardiogram which showed normal LV function without any significant valvular abnormalities. She underwent a transesophageal echocardiographic study which did not reveal any evidence of cardiac source of embolization, intra-atrial septum was intact with no evidence of shunt. Normal left atrial appendage, normal left ventricular dimension and systolic function. No evidence of pericardial effusion. Patient was seen and reevaluated today by cardiology and the recommendation was given that upon discharge he pick up attendant a 30 day event monitor at the office. If the 30 day event monitor does not pick up attendant any significant arrhythmias, then the patient has been advised to undergo implantation of a loop recorder. Tight management of hypertension recommended. Blood pressure today 126/70. continues to have temperatures, up to 102.2 this morning. Objective - Vital Signs Vital signs: Vital Signs Temp 99.4 F 02/27/17 12:00 Pulse 84 02/27/17 12:00 Resp 18 02/27/17 12:00 BP 126/69 02/27/17 12:00 Pulse Ox 100 02/27/17 12:00 Intake & Output 02/26/17 02/27/17 02/27/17 18:59 06:59 18:59 Intake Total 600 700 Balance 600 700 Weight 73 kg 73 kg Intake: Intake, IV Titration 600 700 Amount ACETAMINOPHEN IV (For NPO 100 ) 1,000 mg In Empty Bag 1 bag @ 400 mls/hr IVPB Q6HR PRN Rx#:[id number] Dextrose 5%-0.45% NaCl 1, 600 600 000 ml @ 75 mls/hr IV . [id number] [facility] Rx#:[id number] Other: Voiding Method Urinal Urinal Urinal # Voids 1 1 2 - Exam PHYSICAL EXAMINATION: HEENT: Head is atraumatic, normocephalic. Pupils equal, round. Neck is supple. There is no elevated jugular venous pressure. HEART EXAMINATION: Heart S1, S2 normal. No murmur or gallop heard. CHEST EXAMINATION: Lungs are clear to auscultation and precussion. No chest wall tenderness is noted on palpation or with deep breathing. ABDOMEN: Soft, nontender. Bowel sounds are heard. No organomegaly noted. EXTREMITIES: 2+ peripheral pulses with no evidence of peripheral edema and no calf tenderness noted. NEUROLOGIC patient is awake, alert positive expressive aphasia, NG tube in place. . . - Labs CBC & Chem 7: 02/27/17 05:56 02/27/17 05:56 Labs: Abnormal Lab Results - Last 24 Hours (Table) 02/26/17 02/27/17 02/27/17 Range/Units 20:47 01:15 05:56 RBC 3.28 L (4.30-5.90) m/uL Hgb 10.1 L (13.0-17.5) gm/dL Hct 31.2 L (39.0-53.0) % RDW 16.2 H (11.5-15.5) % Creatinine (0.66-1.25) mg/dL Glucose (74-99) mg/dL POC Glucose (mg/dL) 128 H (75-99) mg/dL Plasma Lactic Acid Del 0.6 L (0.7-2.0) mmol/L 02/27/17 02/27/17 02/27/17 Range/Units 05:56 05:58 11:24 RBC (4.30-5.90) m/uL Hgb (13.0-17.5) gm/dL Hct (39.0-53.0) % RDW (11.5-15.5) % Creatinine 1.40 H (0.66-1.25) mg/dL Glucose 132 H (74-99) mg/dL POC Glucose (mg/dL) 137 H 140 H (75-99) mg/dL Plasma Lactic Acid Del (0.7-2.0) mmol/L Assessment and Plan (1) Acute right arterial ischemic stroke, MCA (middle cerebral artery) Status: Acute (2) Dysphagia Status: Acute (3) Hyperlipidemia Status: Acute (4) Hypertension Status: Acute (5) Peptic ulcer disease Status: Acute Plan: Cardiology's perspective, we will recommend a 30 day event monitor from the office on discharge. If the event monitor does not reveal any significant arrhythmia, then the patient has been advised at that time to undergo loop recorder. Tight management of hypertension also recommended. Dr. Card will follow-up with the patient in the office post discharge. DNP note has been reviewed, I agree with a documented findings and plan of care. Patient was seen and examined.
[2017-02-27 16:43] LABS: Glucose,Whole Blood 110 mg/dL (75-99)
--- NOTE | 2017-02-27 18:08 | P.GSCN ---
History of Present Illness Consult date: 02/27/17 Reason for Consult: Aspiration History of present illness: Patient is hospitalized after a recent diagnosis of acute CVA. As a result of that the patient has had issues with aspiration and dysphasia. Patient has a personal history of ulcer disease. No recent abdominal discomforts. The patient also has had complaints of progressive weight loss and lack of appetite. We were asked see this patient for PEG tube placement. 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 OCC EDEMA FEET. Current Gastric Ulcer. History of Any Multi-Drug Resistant Organisms: None Reported Past Surgical History: Hernia Repair, Joint Replacement, Orthopedic Surgery Additional Past Surgical History / Comment(s): RT TOTAL KNEE Past Anesthesia/Blood Transfusion Reactions: No Reported Reaction Past Psychological History: No Psychological Hx Reported Smoking Status: Current every day smoker Past Alcohol Use History: Occasional Additional Past Alcohol Use History / Comment(s): SMOKED < 1PPD FOR 38 YEARS EST. Past Drug Use History: None Reported - Past Family History Mother Family Medical History: No Reported History Medications and Allergies Home Medications Medication Instructions Recorded Confirmed Type Atorvastatin [Lipitor] 40 mg PO DAILY 02/23/17 02/23/17 History Cholecalciferol [Vitamin D3] 1,000 unit PO DAILY 02/23/17 02/23/17 History Cyanocobalamin (Vitamin B-12) 1,000 mcg PO DAILY 02/23/17 02/23/17 History [Vitamin B-12] Glycopyrrolate/Formoterol Fum 1 puff INHALATION RT-BID 02/23/17 02/23/17 History [Bevespi Aerosphere Inhaler] Omeprazole [PriLOSEC] 20 mg PO AC-BID 02/23/17 02/23/17 History amLODIPine BES/OLMESARTAN MED 1 tab PO DAILY 02/23/17 02/23/17 History [amLODIPine BES/OLMESARTAN MED 10-40 mg] Allergies Allergy/AdvReac Type Severity Reaction Status Date / Time No Known Allergies Allergy Verified 02/23/17 22:08 Surgical - Exam Vital Signs Temp Pulse Resp BP Pulse Ox 98.7 F 85 16 148/78 98 02/23/17 21:48 02/23/17 21:48 02/23/17 21:48 02/23/17 21:48 02/23/17 21:48 Physical exam: General: Elderly male appears older than stated age, somewhat malnourished appearing HEENT: Normocephalic, sclerae nonicteric Abdomen: Nontender, nondistended Extremities: No edema Neuro: Alert , somewhat confused, mostly nonverbal at this time Results - Labs 02/27/17 05:56 02/27/17 05:56 Abnormal Lab Results - Last 24 Hours (Table) 02/26/17 02/27/17 02/27/17 Range/Units 20:47 01:15 05:56 RBC 3.28 L (4.30-5.90) m/uL Hgb 10.1 L (13.0-17.5) gm/dL Hct 31.2 L (39.0-53.0) % RDW 16.2 H (11.5-15.5) % Creatinine (0.66-1.25) mg/dL Glucose (74-99) mg/dL POC Glucose (mg/dL) 128 H (75-99) mg/dL Plasma Lactic Acid Del 0.6 L (0.7-2.0) mmol/L 02/27/17 02/27/17 02/27/17 Range/Units 05:56 05:58 11:24 RBC (4.30-5.90) m/uL Hgb (13.0-17.5) gm/dL Hct (39.0-53.0) % RDW (11.5-15.5) % Creatinine 1.40 H (0.66-1.25) mg/dL Glucose 132 H (74-99) mg/dL POC Glucose (mg/dL) 137 H 140 H (75-99) mg/dL Plasma Lactic Acid Del (0.7-2.0) mmol/L 02/27/17 Range/Units 16:41 RBC (4.30-5.90) m/uL Hgb (13.0-17.5) gm/dL Hct (39.0-53.0) % RDW (11.5-15.5) % Creatinine (0.66-1.25) mg/dL Glucose (74-99) mg/dL POC Glucose (mg/dL) 110 H (75-99) mg/dL Plasma Lactic Acid Del (0.7-2.0) mmol/L Diabetes panel 02/27/17 Range/Units 05:56 Sodium 138 (137-145) mmol/L Potassium 3.5 (3.5-5.1) mmol/L Chloride 102 (98-107) mmol/L Carbon Dioxide 26 (22-30) mmol/L BUN 12 (9-20) mg/dL Creatinine 1.40 H (0.66-1.25) mg/dL Glucose 132 H (74-99) mg/dL Calcium 9.5 (8.4-10.2) mg/dL AST 19 (17-59) U/L ALT 27 (21-72) U/L Alkaline Phosphatase 96 (38-126) U/L Total Protein 6.8 (6.3-8.2) g/dL Albumin 3.5 (3.5-5.0) g/dL Calcium panel 02/27/17 Range/Units 05:56 Calcium 9.5 (8.4-10.2) mg/dL Albumin 3.5 (3.5-5.0) g/dL Pituitary panel 02/27/17 Range/Units 05:56 Sodium 138 (137-145) mmol/L Potassium 3.5 (3.5-5.1) mmol/L Chloride 102 (98-107) mmol/L Carbon Dioxide 26 (22-30) mmol/L BUN 12 (9-20) mg/dL Creatinine 1.40 H (0.66-1.25) mg/dL Glucose 132 H (74-99) mg/dL Calcium 9.5 (8.4-10.2) mg/dL Adrenal panel 02/27/17 Range/Units 05:56 Sodium 138 (137-145) mmol/L Potassium 3.5 (3.5-5.1) mmol/L Chloride 102 (98-107) mmol/L Carbon Dioxide 26 (22-30) mmol/L BUN 12 (9-20) mg/dL Creatinine 1.40 H (0.66-1.25) mg/dL Glucose 132 H (74-99) mg/dL Calcium 9.5 (8.4-10.2) mg/dL Total Bilirubin 0.8 (0.2-1.3) mg/dL AST 19 (17-59) U/L ALT 27 (21-72) U/L Alkaline Phosphatase 96 (38-126) U/L Total Protein 6.8 (6.3-8.2) g/dL Albumin 3.5 (3.5-5.0) g/dL Assessment and Plan (1) Acute right arterial ischemic stroke, MCA (middle cerebral artery) Narrative/Plan: Will proceed with EGD and PEG tube placement tomorrow. Risks of bleeding, infection, bowel injury were discussed. The family understands wished to proceed. Status: Acute
[2017-02-27] MEDS: ALBUTEROL NEBULIZED 2.5 MG/3 ML INHALATION PRN (20:23)
[2017-02-27] MEDS: BUDESONIDE 0.5 MG/2 ML NEBU INHALATION SCH (20:23)
[2017-02-27 21:08] LABS: Glucose,Whole Blood 98 mg/dL (75-99)
--- NOTE | 2017-02-27 21:25 | P.PN ---
Subjective This patient is a 66-year-old -Swedish male who was admitted to the hospital for evaluation of altered mental status and possible stroke. Patient was noted by his is having increased confusion and change in mentation. He was apparently brought into the hospital yesterday and admitted to the intensive care unit. Patient was seen in the ICU yesterday for full neurological evaluation. His neurological examination revealed him to have significant left-sided weakness. He was recommended to undergo an MRI of the brain. MRI of the brain was completed yesterday and revealed evidence of multifocal lacunar infarcts bilaterally. These were felt to be acute in nature possibly representing embolic phenomenon. Cardiology was consulted for further evaluation as for need for a YESICA procedure. Patient is being scheduled for YESICA possibly today. Due to the multiple bilateral hemispheric involvement he was sent for a CTA angiogram study of the head and neck yesterday There was no evidence for dissection or significant internal carotid artery stenosis bilaterally. No evidence for any aneurysmal change at the [place] level. Results of the CT angiogram were reviewed yesterday with the patient and his . As noted he is being scheduled for YESICA procedure possibly to be done today by cardiology. YESICA procedure was completed today and revealed no evidence of cardiac source of embolization. No evidence of PFO. We will await further recommendations from cardiology regarding further management for this patient. We reviewed the results of the YESICA today with the patient and and family at bedside. All their questions were answered. He does appear to be more confused today. We have recommended a stat computed tomography scan of the brain to be done STAT to rule out any new areas of acute stroke. Patient is to be seen by pulmonary medicine is he is having increasing symptoms of pulmonary congestion. His stat computed tomography scan of the brain done yesterday evening revealed no new intracranial process. There was evidence of left external auditory canal impaction. He has noted no evidence of acute stroke or hemorrhage. Patient continues to have evidence of low-grade fever this afternoon. Pulmonary medicine has seen the patient and is recommending nebulizer treatments. We will need to monitor him closely. Would recommend reevaluation of his current antibiotics as his temperature still has been unstable. His T-max today is 102.2. His overall mental status remains relatively stable. Patient was seen by Dr. Irizarry earlier today. He is going to require a PEG tube placement. EGD and PEG tube is scheduled to be done tomorrow. We discussed this today with the patient and his at bedside. She is aware that he will likely require ECF placement by the end of the week. She is requesting the patient to be placed into [facility] the [facility]. We will continue close neurological follow-up for the patient during this admission. His overall prognosis at this time remains guarded. Objective - Vital Signs Vital signs: Vital Signs Temp 99.4 F 02/27/17 12:00 Pulse 84 02/27/17 12:00 Resp 18 02/27/17 12:00 BP 126/69 02/27/17 12:00 Pulse Ox 100 02/27/17 12:00 Intake & Output 02/26/17 02/27/17 02/27/17 18:59 06:59 18:59 Intake Total 600 700 Balance 600 700 Weight 73 kg Intake: Intake, IV Titration 600 700 Amount ACETAMINOPHEN IV (For NPO 100 ) 1,000 mg In Empty Bag 1 bag @ 400 mls/hr IVPB Q6HR PRN Rx#:[id number] Dextrose 5%-0.45% NaCl 1, 600 600 000 ml @ 75 mls/hr IV . [id number] [facility] Rx#:[id number] Other: Voiding Method Urinal Urinal Urinal # Voids 1 1 2 - Exam Physical examination: PHYSICAL EXAMINATION: Patient is resting comfortably in bed. VITAL SIGNS: Blood pressure is [126/69]. Heart rate is [84]. Respiration is [18] . Temperature is [99.4]. HEENT: Head is atraumatic, neck is supple, there were no carotid bruits. CHEST: Lungs are clear to auscultation and percussion. CARDIAC: S1, S2 normal rate and rhythm. There is no murmur. ABDOMEN: Soft and nontender. Bowel sounds are present. EXTREMITIES: There is no pedal edema. Peripheral pulses are present. Neurological examination: Patient's neurological examination is unchanged from yesterday. Patient is more confused today and having more difficulty with his speech. He is following all simple commands. Patient continues to have evidence of a left upper extremity pronator drift. Facial droop is slightly improved on the left side. - Labs CBC & Chem 7: 02/27/17 05:56 02/27/17 05:56 Labs: Abnormal Lab Results - Last 24 Hours (Table) 02/26/17 02/27/17 02/27/17 Range/Units 20:47 01:15 05:56 RBC 3.28 L (4.30-5.90) m/uL Hgb 10.1 L (13.0-17.5) gm/dL Hct 31.2 L (39.0-53.0) % RDW 16.2 H (11.5-15.5) % Creatinine (0.66-1.25) mg/dL Glucose (74-99) mg/dL POC Glucose (mg/dL) 128 H (75-99) mg/dL Plasma Lactic Acid Del 0.6 L (0.7-2.0) mmol/L 02/27/17 02/27/17 02/27/17 Range/Units 05:56 05:58 11:24 RBC (4.30-5.90) m/uL Hgb (13.0-17.5) gm/dL Hct (39.0-53.0) % RDW (11.5-15.5) % Creatinine 1.40 H (0.66-1.25) mg/dL Glucose 132 H (74-99) mg/dL POC Glucose (mg/dL) 137 H 140 H (75-99) mg/dL Plasma Lactic Acid Del (0.7-2.0) mmol/L Assessment and Plan (1) Acute right arterial ischemic stroke, MCA (middle cerebral artery) Status: Acute Code(s): I63.511 - CEREB INFRC D/T UNSP OCCLS OR STENOS OF RIGHT MID CEREB ART (2) Dysphagia Status: Acute Code(s): R13.10 - DYSPHAGIA, UNSPECIFIED (3) Peptic ulcer disease Status: Acute Code(s): K27.9 - PEPTIC ULC, SITE UNSP, UNSP AC OR CHR, W/O HEMOR OR PERF (4) Hypertension Status: Acute Code(s): I10 - ESSENTIAL (PRIMARY) HYPERTENSION (5) Hyperlipidemia Status: Acute Code(s): E78.5 - HYPERLIPIDEMIA, UNSPECIFIED Plan: This patient is a 66-year-old -Swedish male who was seen yesterday in the intensive care unit for evaluation of altered mental status and left-sided weakness. His initial evaluation in the ICU yesterday revealed him to have a left pronator drift as well as a left facial droop. He was sent for an MRI of the brain yesterday which did reveal evidence of multiple acute lacunar infarctions involving both hemispheres. Cardiology was consulted for further evaluation of possible cardioembolic phenomena for this patient. He was seen by cardiology yesterday and he is to be scheduled for YESICA procedure today. YESICA was completed today and results were reviewed. The YESICA is negative for any evidence of PFO or atrial thrombus. These results were discussed today with the patient and his at bedside. We will await further recommendations from cardiology. The patient also underwent CTA angiogram of the head and neck. This study came back negative for any evidence of acute changes. Patient is showing slight deterioration in his mental status today as compared to yesterday. We will obtain a STAT computed tomography scan of the brain to rule out any new areas of stroke. Case was discussed today with the patient's at bedside. All of her questions were answered. She is aware of her husbands very guarded condition. The stat computed tomography scan of the brain done last night was reviewed and failed to reveal any evidence of new or acute intracranial process. No evidence of acute stroke or hemorrhage. We did discuss the results today with the patient's at bedside. Pulmonary medicine is monitoring the patient as well for her COPD versus aspiration pneumonia. He is running low-grade temperature today as well. We will await further recommendations from pulmonary medicine. We will continue further stroke evaluation for this patient. We are waiting further recommendations of cardiology and the results of his YESICA procedure which was done yesterday. Patient is not a candidate for long-term anticoagulation given his history of recent GI bleeding. He cannot tolerate aspirin as well. Apparently he has to wait for another month before you may be restarted on aspirin therapy. His overall prognosis at this time remains very guarded. Patient and his are updated on all current results today. Patient was seen by cardiology today and they're recommending a event monitor to be placed for 30 days. He may also require loop recorder for further evaluation for paroxysmal atrial fibrillation. Patient also is being scheduled for PEG tube placement tomorrow which is to be performed by Dr. Bay. We will continue close neurological follow-up for the patient. His overall prognosis at this time remains guarded.
[2017-02-28] MEDS: DOCUSATE ORAL SOLN 100 MG/10 ML CUP NG-TUBE SCH ×3 (00:11→17:57)
[2017-02-28 06:13] LABS: Glucose,Whole Blood 107 mg/dL (75-99)
[2017-02-28 06:54] LABS: Anisocytosis Slight; CH 31.2; CHCM 32.3; HCT 29.7 % (39.0-53.0); HDW 2.67; HGB 9.4 gm/dL (13.0-17.5); MCH 30.6 pg (25.0-35.0); MCHC 31.5 g/dL (31.0-37.0); MCV 96.9 fL (80.0-100.0); Mean Platelet Volume 6.7; RBC 3.07 m/uL (4.30-5.90); RDW 16.3 % (11.5-15.5); WBC 9.8 k/uL (3.8-10.6)
[2017-02-28 07:05] LABS: ALT 30 U/L (21-72); AST 26 U/L (17-59); Alkaline Phosphatase 91 U/L (38-126); Anion Gap 10 mmol/L; Blood Urea Nitrogen 18 mg/dL (9-20); Calcium 9.7 mg/dL (8.4-10.2); Carbon Dioxide 25 mmol/L (22-30); Chloride 105 mmol/L (98-107); Glucose 103 mg/dL (74-99); Non-African American GFR(MDRD) 54 (>60 ml/min/1.73 sqM); Potassium 3.3 mmol/L (3.5-5.1); Sodium 140 mmol/L (137-145); Total Bilirubin 0.7 mg/dL (0.2-1.3); Total Protein 6.7 g/dL (6.3-8.2)
[2017-02-28] MEDS: ALBUTEROL NEBULIZED 2.5 MG/3 ML INHALATION PRN ×2 (07:47→11:43)
[2017-02-28] MEDS: BUDESONIDE 0.5 MG/2 ML NEBU INHALATION SCH ×2 (07:47→19:44)
[2017-02-28] MEDS: BEVESPI AEROSPHERE INHALATION SCH ×2 (07:59→20:15)
--- NOTE | 2017-02-28 08:32 | P.PN ---
Subjective Principal diagnosis: Continuing care with history of CVA. . The patient still has NG tube placement for suction. The patient is answering commands appropriately today. Had a long discussion with the family. They are concerned about his nutritional status. Speech therapy is pending. Question need for nasogastric feeding versus TPN. Objective - Vital Signs Vital signs: Vital Signs Temp 99.1 F 02/28/17 04:00 Pulse 80 02/28/17 07:58 Resp 18 02/28/17 04:00 BP 134/69 02/28/17 04:00 Pulse Ox 92 L 02/28/17 04:00 Intake & Output 02/27/17 02/28/17 02/28/17 18:59 06:59 18:59 Intake Total 700 Balance 700 Weight 73 kg Intake: Intake, IV Titration 700 Amount ACETAMINOPHEN IV (For NPO 100 ) 1,000 mg In Empty Bag 1 bag @ 400 mls/hr IVPB Q6HR PRN Rx#:[id number] Dextrose 5%-0.45% NaCl 1, 600 000 ml @ 75 mls/hr IV . [id number] [facility] Rx#:[id number] Other: Voiding Method Urinal Urinal Diaper Incontinent # Voids 2 1 - Constitutional General appearance: Present: average body habitus - EENT Eyes: Absent: abnormal pupil - Respiratory Respiratory: bilateral: CTA - Cardiovascular Rhythm: regular Heart sounds: normal: S1, S2 - Labs CBC & Chem 7: 02/28/17 06:22 02/28/17 06:22 Labs: Abnormal Lab Results - Last 24 Hours (Table) 02/27/17 02/27/17 02/28/17 Range/Units 11:24 16:41 06:07 RBC (4.30-5.90) m/uL Hgb (13.0-17.5) gm/dL Hct (39.0-53.0) % RDW (11.5-15.5) % Potassium (3.5-5.1) mmol/L Creatinine (0.66-1.25) mg/dL Glucose (74-99) mg/dL POC Glucose (mg/dL) 140 H 110 H 107 H (75-99) mg/dL Albumin (3.5-5.0) g/dL 02/28/17 02/28/17 Range/Units 06:22 06:22 RBC 3.07 L (4.30-5.90) m/uL Hgb 9.4 L (13.0-17.5) gm/dL Hct 29.7 L (39.0-53.0) % RDW 16.3 H (11.5-15.5) % Potassium 3.3 L (3.5-5.1) mmol/L Creatinine 1.32 H (0.66-1.25) mg/dL Glucose 103 H (74-99) mg/dL POC Glucose (mg/dL) (75-99) mg/dL Albumin 3.3 L (3.5-5.0) g/dL Assessment and Plan (1) COPD (chronic obstructive pulmonary disease) Status: Acute (2) Acute right arterial ischemic stroke, MCA (middle cerebral artery) Status: Acute (3) Dysphagia Status: Acute (4) Hyperlipidemia Status: Acute (5) Hypertension Status: Acute Plan: The patient is scheduled for surgical intervention with PEG tube for dysphagia secondary to CVA. We'll continue to follow. Anticipate discharge in about 48 hours once we know that the patient is tolerating tube feeds appropriately. ECF placement has been discussed with the family.
[2017-02-28] MEDS ORDERED: LIDOCAINE 1% INJ 10MG/ML (20 ML MDV) ONE (10:15)
[2017-02-28] MEDS ORDERED: IV FLUID CONTINUATION 1,000 ML IV ONE (10:15)
[2017-02-28] MEDS ORDERED: PROPOFOL 10 MG/ML 20 ML VIAL IV ONE (10:15)
--- NOTE | 2017-02-28 10:43 | P.PCN ---
Date of Procedure: 02/28/17 Procedure(s) Performed: PREOPERATIVE DIAGNOSIS: Malnutrition, aspiration POSTOPERATIVE DIAGNOSIS: Same PROCEDURE: EGD with PEG tube placement SURGEON: Shanique EBL: Minimal ANESTHESIA: Sedation COMPLICATIONS: None OPERATIVE PROCEDURE: The patient was placed in the supine position on the endoscopy table. The patient was sedated per anesthesia that time. The Olympus gastroscope was inserted into the oropharynx and passed under direct visualization to the region of the duodenum. No obstruction was seen. The pylorus was widely patent. The stomach was carefully inspected. The stomach was fully insufflated with air. The abdominal wall was inspected. The light was seen shining through the abdominal wall in the left upper quadrant. This site was chosen for PEG tube placement. The area was prepped in the usual sterile fashion. This area was then localized with lidocaine. A small vertical incision was made using the scalpel. The Seldinger needle was advanced into the lumen of the stomach the wire was advanced. The wire was grasped with an endoscopic snare. The wire was pulled through the oropharynx. The catheter was then threaded over the guidewire and the guidewire and catheter were pulled anteriorly until the hub of the PEG tube catheter was seated against the anterior wall the stomach. The circular bolster was applied and tightened down. The endoscope was then readvanced into the stomach. There was no evidence of any bleeding and there was appropriate tightness on the bolster. The catheter was cut appropriately. The dual port feeding adapter was applied. DISPOSITION: Stable to recovery room
[2017-02-28 11:51] LABS: Glucose,Whole Blood 190 mg/dL (75-99)
[2017-02-28] MEDS: ASPIRIN 81 MG CHEW PO SCH (12:06)
[2017-02-28] MEDS: amLODIPine 10 MG TAB PO SCH (12:06)
[2017-02-28] MEDS: CYANOCOBALAMIN 500 MCG TAB PO SCH (12:06)
[2017-02-28] MEDS: ATORVASTATIN 40 MG TAB PO SCH (12:06)
[2017-02-28] MEDS: CHOLECALCIFEROL 1,000 UNIT TAB PO SCH (12:07)
[2017-02-28] MEDS: PANTOPRAZOLE 40 MG TABLET PO SCH ×2 (12:07→18:05)
[2017-02-28] MEDS: ENOXAPARIN 40 MG/0.4 ML SYRINGE SQ SCH (12:07)
[2017-02-28] MEDS: LOSARTAN 50 MG TAB PO SCH (12:07)
--- NOTE | 2017-02-28 14:40 | P.PN ---
Subjective This is a 66-year-old male patient who is being evaluated and examined today on the sixth floor. Patient was brought into the emergency room I his apparently the patient had been lethargic for about 3 hours before coming to the emergency room. He was noted to have a significant amount of right-sided weakness and having difficulty walking as well as difficulty with speech. The patient does have a history of previous stroke which caused some right-sided weakness as well as dementia. Patient has being evaluated by neurology for what appears to be vascular dementia. She is also known to have a history of COPD, is a current every day smoker, 1 pack per day. Chest x-ray reveals some left basilar atelectasis. CT of the brain shows no new intracranial processes. Patient had a YESICA, Ejection fraction 55-60%. Upon examination the patient is resting up in bed with physical family at bedside. The patient has not required supplemental oxygen in the last 24 hours. Patient does have a productive cough with clear sputum. Speech therapy to evaluate patient. Objective - Vital Signs Vital signs: Vital Signs Temp 98.1 F 02/28/17 08:00 Pulse 92 02/28/17 12:00 Resp 16 02/28/17 12:00 BP 132/73 02/28/17 12:00 Pulse Ox 94 L 02/28/17 12:00 Intake & Output 02/27/17 02/28/17 02/28/17 18:59 06:59 18:59 Intake Total 700 200 Balance 700 200 Weight 73 kg Intake: IV 200 Intake, IV Titration 700 Amount ACETAMINOPHEN IV (For NPO 100 ) 1,000 mg In Empty Bag 1 bag @ 400 mls/hr IVPB Q6HR PRN Rx#:[id number] Dextrose 5%-0.45% NaCl 1, 600 000 ml @ 75 mls/hr IV . [id number] [facility] Rx#:[id number] Other: Voiding Method Urinal Urinal Diaper Incontinent # Voids 2 1 1 - Exam ENERAL EXAM: Alert, comfortable in no apparent distress. HEAD: Normocephalic. Left-sided facial droop EYES: Normal reaction of pupils, equal size. NOSE: Clear with pink turbinates. THROAT: No erythema or exudates. NECK: No masses, no JVD. CHEST: No chest wall deformity. LUNGS: Equal air entry with faint wheeze. Bases diminished CVS: S1 and S2 normal with systolic mumurs, regular rhythm. ABDOMEN: No hepatosplenomegaly, normal bowel sounds, no guarding or rigidity. EXTREMITIES: No edema noted, pedal pulses palpable. SKIN: No rashes CENTRAL NERVOUS SYSTEM: Slight muscle weakness noted to the right upper extremity. - Labs CBC & Chem 7: 02/28/17 06:22 02/28/17 06:22 Labs: Abnormal Lab Results - Last 24 Hours (Table) 02/27/17 02/28/17 02/28/17 Range/Units 16:41 06:07 06:22 RBC 3.07 L (4.30-5.90) m/uL Hgb 9.4 L (13.0-17.5) gm/dL Hct 29.7 L (39.0-53.0) % RDW 16.3 H (11.5-15.5) % Potassium (3.5-5.1) mmol/L Creatinine (0.66-1.25) mg/dL Glucose (74-99) mg/dL POC Glucose (mg/dL) 110 H 107 H (75-99) mg/dL Albumin (3.5-5.0) g/dL 02/28/17 02/28/17 Range/Units 06:22 11:48 RBC (4.30-5.90) m/uL Hgb (13.0-17.5) gm/dL Hct (39.0-53.0) % RDW (11.5-15.5) % Potassium 3.3 L (3.5-5.1) mmol/L Creatinine 1.32 H (0.66-1.25) mg/dL Glucose 103 H (74-99) mg/dL POC Glucose (mg/dL) 190 H (75-99) mg/dL Albumin 3.3 L (3.5-5.0) g/dL Assessment and Plan Plan: Assessment Acute embolic bihemispheric stroke causing dysphasia and some right-sided weakness COPD Dementia Hypertension Dyslipidemia Anemia of chronic disease Nicotine dependence Dysphagia secondary to CVA Plan Medications have been reviewed and will be continued. Continue with current nebulizer treatments. Incentive spirometer initiated and encouraged. We will continue with pulmonary hygiene and supportive care. Patient has suction equipment at bedside. Smoking cessation encouraged. Surgical consult for placement of a PEG tube. We'll continue to monitor labs/results and adjust treatment as necessary. I performed an examination of the patient and discussed their management with the nurse practitioner. I have reviewed the nurse practitioner's note and agree with the documented findings and plan of care.
[2017-02-28] MEDS: DEXTROSE 5%-0.45% NACL 1,000 ML IV SCH ×3 (15:52→20:04)
[2017-02-28 16:49] LABS: Glucose,Whole Blood 90 mg/dL (75-99)
[2017-02-28] MEDS: ACETAMINOPHEN TAB 325 MG TAB PO PRN (18:05)
--- NOTE | 2017-02-28 18:51 | P.PN ---
Subjective This patient is a 66-year-old -[place] male who was admitted to the hospital for evaluation of altered mental status and possible stroke. Patient was noted by his is having increased confusion and change in mentation. He was apparently brought into the hospital yesterday and admitted to the intensive care unit. Patient was seen in the ICU yesterday for full neurological evaluation. His neurological examination revealed him to have significant left-sided weakness. He was recommended to undergo an MRI of the brain. MRI of the brain was completed yesterday and revealed evidence of multifocal lacunar infarcts bilaterally. These were felt to be acute in nature possibly representing embolic phenomenon. Cardiology was consulted for further evaluation as for need for a YESICA procedure. Patient is being scheduled for YESICA possibly today. Due to the multiple bilateral hemispheric involvement he was sent for a CTA angiogram study of the head and neck yesterday There was no evidence for dissection or significant internal carotid artery stenosis bilaterally. No evidence for any aneurysmal change at the [place] level. Results of the CT angiogram were reviewed yesterday with the patient and his . As noted he is being scheduled for YESICA procedure possibly to be done today by cardiology. YESICA procedure was completed today and revealed no evidence of cardiac source of embolization. No evidence of PFO. We will await further recommendations from cardiology regarding further management for this patient. We reviewed the results of the YESICA today with the patient and and family at bedside. All their questions were answered. He does appear to be more confused today. We have recommended a stat computed tomography scan of the brain to be done STAT to rule out any new areas of acute stroke. Patient is to be seen by pulmonary medicine is he is having increasing symptoms of pulmonary congestion. His stat computed tomography scan of the brain done yesterday evening revealed no new intracranial process. There was evidence of left external auditory canal impaction. He has noted no evidence of acute stroke or hemorrhage. Patient continues to have evidence of low-grade fever this afternoon. Pulmonary medicine has seen the patient and is recommending nebulizer treatments. We will need to monitor him closely. Would recommend reevaluation of his current antibiotics as his temperature still has been unstable. His T-max today is 102.2. His overall mental status remains relatively stable. Patient was seen by Dr. Bay earlier today. He is going to require a PEG tube placement. EGD and PEG tube was performed earlier today. Patient has PEG tube in place and apparently has been tolerating the procedure well. We will await further recommendations from surgery. Hopefully they may be able to start tube feedings for him possibly tomorrow. Case was discussed today at length with the patient's sister who was admitted bedside. She will update his as well. She is aware that he will likely require ECF placement by the end of the week. She is requesting the patient to be placed into [facility] on the [facility]. We will continue close neurological follow-up for the patient during this admission. His overall prognosis at this time remains guarded. Objective - Vital Signs Vital signs: Vital Signs Temp 99.7 F H 02/28/17 16:00 Pulse 105 H 02/28/17 16:00 Resp 16 02/28/17 16:00 BP 139/75 02/28/17 16:00 Pulse Ox 94 L 02/28/17 16:00 Intake & Output 02/27/17 02/28/17 02/28/17 18:59 06:59 18:59 Intake Total 700 200 Balance 700 200 Weight 73 kg Intake: IV 200 Intake, IV Titration 700 Amount ACETAMINOPHEN IV (For NPO 100 ) 1,000 mg In Empty Bag 1 bag @ 400 mls/hr IVPB Q6HR PRN Rx#:[id number] Dextrose 5%-0.45% NaCl 1, 600 000 ml @ 75 mls/hr IV . [id number] [facility] Rx#:[id number] Tube Feeding 0 Other: Voiding Method Urinal Urinal Urinal Diaper Diaper Incontinent Incontinent # Voids 2 1 3 - Exam Physical examination: PHYSICAL EXAMINATION: Patient is resting comfortably in bed. VITAL SIGNS: Blood pressure is [139/75]. Heart rate is [105]. Respiration is [16 ]. Temperature is [99.7]. HEENT: Head is atraumatic, neck is supple, there were no carotid bruits. CHEST: Lungs are clear to auscultation and percussion. CARDIAC: S1, S2 normal rate and rhythm. There is no murmur. ABDOMEN: Soft and nontender. Bowel sounds are present. EXTREMITIES: There is no pedal edema. Peripheral pulses are present. Neurological examination: Patient's neurological examination is unchanged from yesterday. Patient's mental status has improved today. He is more awake and alert. Speech is clear. He is following all simple commands. Patient continues to have evidence of a left upper extremity pronator drift. Facial droop is slightly improved on the left side. - Labs CBC & Chem 7: 02/28/17 06:22 02/28/17 06:22 Labs: Abnormal Lab Results - Last 24 Hours (Table) 02/28/17 02/28/17 02/28/17 Range/Units 06:07 06:22 06:22 RBC 3.07 L (4.30-5.90) m/uL Hgb 9.4 L (13.0-17.5) gm/dL Hct 29.7 L (39.0-53.0) % RDW 16.3 H (11.5-15.5) % Potassium 3.3 L (3.5-5.1) mmol/L Creatinine 1.32 H (0.66-1.25) mg/dL Glucose 103 H (74-99) mg/dL POC Glucose (mg/dL) 107 H (75-99) mg/dL Albumin 3.3 L (3.5-5.0) g/dL 02/28/17 Range/Units 11:48 RBC (4.30-5.90) m/uL Hgb (13.0-17.5) gm/dL Hct (39.0-53.0) % RDW (11.5-15.5) % Potassium (3.5-5.1) mmol/L Creatinine (0.66-1.25) mg/dL Glucose (74-99) mg/dL POC Glucose (mg/dL) 190 H (75-99) mg/dL Albumin (3.5-5.0) g/dL Assessment and Plan (1) Acute right arterial ischemic stroke, MCA (middle cerebral artery) Status: Acute Code(s): I63.511 - CEREB INFRC D/T UNSP OCCLS OR STENOS OF RIGHT MID CEREB ART (2) Dysphagia Status: Acute Code(s): R13.10 - DYSPHAGIA, UNSPECIFIED (3) Peptic ulcer disease Status: Acute Code(s): K27.9 - PEPTIC ULC, SITE UNSP, UNSP AC OR CHR, W/O HEMOR OR PERF (4) Hypertension Status: Acute Code(s): I10 - ESSENTIAL (PRIMARY) HYPERTENSION (5) Hyperlipidemia Status: Acute Code(s): E78.5 - HYPERLIPIDEMIA, UNSPECIFIED Plan: This patient is 66-year-old male who was admitted to hospital with acute left- sided weakness. He underwent extensive stroke evaluation including MRI of the brain which revealed evidence of bilateral acute ischemic stroke. He underwent a YESICA procedure which came back negative for any evidence of acute PFO or atrial thrombus. He is unable to start on aspirin or anticoagulants at this time due to recent history of GI bleeding. He underwent a PEG tube placement today which went through successfully for him. Surgery will likely start tube feedings for him tomorrow. Patient is more alert and oriented today and is following all simple commands. He is awaiting placement to [facility] on the [facility] possibly by the end of this week. Cardiology has been following the patient closely as well. They're considering placement of a loop recorder for him to further evaluate for paroxysmal atrial fibrillation. We will continue to await further recommendations. His overall prognosis at this time remains guarded. Case was discussed at length with the patient and his sister at bedside. All their questions are answered. We will continue close neurological follow-up with the patient during this admission. His overall prognosis at this time remains very guarded.
[2017-02-28] MEDS ORDERED: Potassium Replacement Protocol 1 EACH MISC MISCELLANE PRN (20:33)
[2017-02-28 21:28] LABS: Glucose,Whole Blood 137 mg/dL (75-99)
[2017-02-28] MEDS: POTASSIUM CHLORIDE ORAL LIQUID 40 MEQ/30 ML CUP NG-TUBE SCH (22:03)
[2017-02-28] MEDS: AZITHROMYCIN 500 MG in SODIUM CHLORIDE 0.9% 250 ML IVPB SCH (22:05)
[2017-03-01] MEDS: DOCUSATE ORAL SOLN 100 MG/10 ML CUP NG-TUBE SCH ×4 (00:03→23:48)
[2017-03-01] MEDS: POTASSIUM CHLORIDE ORAL LIQUID 40 MEQ/30 ML CUP NG-TUBE SCH (00:03)
[2017-03-01 06:39] LABS: Glucose,Whole Blood 131 mg/dL (75-99)
[2017-03-01] MEDS: DEXTROSE 5%-0.45% NACL 1,000 ML IV SCH ×2 (07:00→09:48)
[2017-03-01] MEDS: PANTOPRAZOLE 40 MG TABLET PO SCH ×2 (07:00→17:23)
[2017-03-01 07:23] LABS: ALT 27 U/L (21-72); AST 24 U/L (17-59); Alkaline Phosphatase 84 U/L (38-126); Anion Gap 7 mmol/L; Blood Urea Nitrogen 14 mg/dL (9-20); Calcium 9.5 mg/dL (8.4-10.2); Carbon Dioxide 26 mmol/L (22-30); Chloride 107 mmol/L (98-107); Glucose 123 mg/dL (74-99); Magnesium 1.8 mg/dL (1.6-2.3); Non-African American GFR(MDRD) >60 (>60 ml/min/1.73 sqM); Potassium 3.7 mmol/L (3.5-5.1); Sodium 140 mmol/L (137-145); Total Bilirubin 0.6 mg/dL (0.2-1.3); Total Protein 6.5 g/dL (6.3-8.2)
[2017-03-01] MEDS: BEVESPI AEROSPHERE INHALATION SCH ×2 (07:51→19:05)
[2017-03-01] MEDS: BUDESONIDE 0.5 MG/2 ML NEBU INHALATION SCH ×2 (07:51→19:05)
--- NOTE | 2017-03-01 08:04 | P.PN ---
Subjective Principal diagnosis: Continuing care This is a continue process on a 66-year-old black male with CVA element. We are going to try to promote feeding today. Otherwise, he will be transferred to ECF anticipating for the next day. He is speaking appropriately and breathing treatments have been helping him immensely. He still seems somewhat somber. Question some mild element of depression. Objective - Vital Signs Vital signs: Vital Signs Temp 97.2 F L 03/01/17 07:57 Pulse 77 03/01/17 07:57 Resp 14 03/01/17 07:57 BP 136/78 03/01/17 07:57 Pulse Ox 98 03/01/17 07:57 Intake & Output 02/28/17 03/01/17 03/01/17 18:59 06:59 18:59 Intake Total 200 1000 Balance 200 1000 Intake: IV 200 Intake, IV Titration 600 Amount Dextrose 5%-0.45% NaCl 1, 600 000 ml @ 75 mls/hr IV . [id number] [facility] Rx#:[id number] Oral 0 Tube Feeding 0 400 Other: Voiding Method Urinal Urinal Diaper Diaper Incontinent Incontinent # Voids 3 2 - Constitutional General appearance: Present: average body habitus - EENT Eyes: Absent: abnormal pupil - Respiratory Respiratory: bilateral: CTA - Cardiovascular Rhythm: regular Heart sounds: normal: S1, S2 - Gastrointestinal General gastrointestinal: Absent: tenderness - Musculoskeletal Musculoskeletal: Present: left sided weakness - Labs CBC & Chem 7: 02/28/17 06:22 03/01/17 06:00 Labs: Abnormal Lab Results - Last 24 Hours (Table) 02/28/17 02/28/17 03/01/17 Range/Units 11:48 21:25 06:00 Glucose 123 H (74-99) mg/dL POC Glucose (mg/dL) 190 H 137 H (75-99) mg/dL Albumin 3.1 L (3.5-5.0) g/dL 03/01/17 Range/Units 06:37 Glucose (74-99) mg/dL POC Glucose (mg/dL) 131 H (75-99) mg/dL Albumin (3.5-5.0) g/dL Assessment and Plan (1) COPD (chronic obstructive pulmonary disease) Status: Acute (2) Acute right arterial ischemic stroke, MCA (middle cerebral artery) Status: Acute (3) Dysphagia Status: Acute (4) Hyperlipidemia Status: Acute (5) Hypertension Status: Acute Plan: Continue rehab. Advance diet as tolerated/per speech therapy. Anticipate discharge in next 24 hours. We anticipate ECF/[facility]. See orders otherwise.
[2017-03-01] MEDS: ATORVASTATIN 40 MG TAB PO SCH (08:52)
[2017-03-01] MEDS: ASPIRIN 81 MG CHEW PO SCH (08:52)
[2017-03-01] MEDS: amLODIPine 10 MG TAB PO SCH (08:52)
[2017-03-01] MEDS: LOSARTAN 50 MG TAB PO SCH (08:53)
[2017-03-01] MEDS: CYANOCOBALAMIN 500 MCG TAB PO SCH (08:53)
[2017-03-01] MEDS: CHOLECALCIFEROL 1,000 UNIT TAB PO SCH (08:53)
[2017-03-01] MEDS: ENOXAPARIN 40 MG/0.4 ML SYRINGE SQ SCH (08:53)
[2017-03-01] MEDS ORDERED: POTASSIUM CHLORIDE ORAL LIQUID 40 MEQ/30 ML CUP NG-TUBE ONE (09:00)
[2017-03-01 12:28] LABS: Glucose,Whole Blood 128 mg/dL (75-99)
--- NOTE | 2017-03-01 13:26 | P.PN ---
Subjective This is a 66-year-old male patient who is being evaluated and examined today on the sixth floor. Patient was brought into the emergency room I his apparently the patient had been lethargic for about 3 hours before coming to the emergency room. He was noted to have a significant amount of right-sided weakness and having difficulty walking as well as difficulty with speech. The patient does have a history of previous stroke which caused some right-sided weakness as well as dementia. Patient has being evaluated by neurology for what appears to be vascular dementia. She is also known to have a history of COPD, is a current every day smoker, 1 pack per day. Chest x-ray reveals some left basilar atelectasis. CT of the brain shows no new intracranial processes. Patient had a YESICA, Ejection fraction 55-60%. Upon examination the patient is resting up in bed with physical family at bedside. The patient has not required supplemental oxygen in the last 48 hours. However he is still requiring his breathing treatments. Patient does have a productive cough with clear sputum. Region had opaque tube placement yesterday and will be started on tube feedings in the next 24 hours. Objective - Vital Signs Vital signs: Vital Signs Temp 97.2 F L 03/01/17 07:57 Pulse 78 03/01/17 12:00 Resp 14 03/01/17 12:00 BP 134/76 03/01/17 12:00 Pulse Ox 97 03/01/17 12:00 Intake & Output 02/28/17 03/01/17 03/01/17 18:59 06:59 18:59 Intake Total 200 1000 400 Balance 200 1000 400 Intake: IV 200 400 Dextrose 5%-0.45% NaCl 1, 400 000 ml @ 75 mls/hr IV . [id number] [facility] Rx#:[id number] Intake, IV Titration 600 Amount Dextrose 5%-0.45% NaCl 1, 600 000 ml @ 75 mls/hr IV . [id number] [facility] Rx#:[id number] Oral 0 Tube Feeding 0 400 Other: Voiding Method Urinal Urinal Urinal Diaper Diaper Diaper Incontinent Incontinent Incontinent # Voids 3 2 - Exam ENERAL EXAM: Alert, comfortable in no apparent distress. HEAD: Normocephalic. Left-sided facial droop EYES: Normal reaction of pupils, equal size. NOSE: Clear with pink turbinates. THROAT: No erythema or exudates. NECK: No masses, no JVD. CHEST: No chest wall deformity. LUNGS: Equal air entry with faint wheeze. Bases diminished CVS: S1 and S2 normal with systolic mumurs, regular rhythm. ABDOMEN: No hepatosplenomegaly, normal bowel sounds, no guarding or rigidity. PEG tube present EXTREMITIES: No edema noted, pedal pulses palpable. SKIN: No rashes CENTRAL NERVOUS SYSTEM: Slight muscle weakness noted to the right upper extremity. - Labs CBC & Chem 7: 02/28/17 06:22 03/01/17 11:04 Labs: Abnormal Lab Results - Last 24 Hours (Table) 02/28/17 03/01/17 03/01/17 Range/Units 21:25 06:00 06:37 Glucose 123 H (74-99) mg/dL POC Glucose (mg/dL) 137 H 131 H (75-99) mg/dL Albumin 3.1 L (3.5-5.0) g/dL 03/01/17 Range/Units 12:26 Glucose (74-99) mg/dL POC Glucose (mg/dL) 128 H (75-99) mg/dL Albumin (3.5-5.0) g/dL Assessment and Plan Plan: Assessment Acute embolic bihemispheric stroke causing dysphasia and some right-sided weakness COPD Dementia Hypertension Dyslipidemia Anemia of chronic disease Nicotine dependence Dysphagia secondary to CVA Plan Medications have been reviewed and will be continued. Continue with current nebulizer treatments. Incentive spirometer initiated and encouraged. We will continue with pulmonary hygiene and supportive care. Patient has suction equipment at bedside. Smoking cessation encouraged. TMs monitor PEG tube sites and nutrition will be started in the next 24 hours via PEG tube, per surgical orders. We'll continue to monitor labs/results and adjust treatment as necessary. I performed an examination of the patient and discussed their management with the nurse practitioner. I have reviewed the nurse practitioner's note and agree with the documented findings and plan of care.
--- NOTE | 2017-03-01 15:39 | P.PN ---
Subjective Principal diagnosis: Malnutrition Patient is doing well today. He is tolerating his tube feeds at 10 mL per hour. Mild abdominal discomfort. Objective - Vital Signs Vital signs: Vital Signs Temp 97.2 F L 03/01/17 07:57 Pulse 78 03/01/17 12:00 Resp 14 03/01/17 12:00 BP 134/76 03/01/17 12:00 Pulse Ox 97 03/01/17 12:00 Intake & Output 02/28/17 03/01/17 03/01/17 18:59 06:59 18:59 Intake Total 200 1000 400 Balance 200 1000 400 Intake: IV 200 400 Dextrose 5%-0.45% NaCl 1, 400 000 ml @ 75 mls/hr IV . [id number] [facility] Rx#:[id number] Intake, IV Titration 600 Amount Dextrose 5%-0.45% NaCl 1, 600 000 ml @ 75 mls/hr IV . [id number] [facility] Rx#:[id number] Oral 0 Tube Feeding 0 400 Other: Voiding Method Urinal Urinal Urinal Diaper Diaper Diaper Incontinent Incontinent Incontinent # Voids 3 2 - Exam Abdomen: Soft, nondistended, mild tenderness the PEG tube site - Labs CBC & Chem 7: 02/28/17 06:22 03/01/17 11:04 Labs: Abnormal Lab Results - Last 24 Hours (Table) 02/28/17 03/01/17 03/01/17 Range/Units 21:25 06:00 06:37 Glucose 123 H (74-99) mg/dL POC Glucose (mg/dL) 137 H 131 H (75-99) mg/dL Albumin 3.1 L (3.5-5.0) g/dL 03/01/17 Range/Units 12:26 Glucose (74-99) mg/dL POC Glucose (mg/dL) 128 H (75-99) mg/dL Albumin (3.5-5.0) g/dL Assessment and Plan (1) Acute right arterial ischemic stroke, MCA (middle cerebral artery) Narrative/Plan: Gradually advance tube feeds as tolerated. Status: Acute
[2017-03-01 17:31] LABS: Glucose,Whole Blood 124 mg/dL (75-99)
--- NOTE | 2017-03-01 18:09 | P.PN ---
Subjective This patient is a 66-year-old -[place] male who was admitted to the hospital for evaluation of altered mental status and possible stroke. Patient was noted by his is having increased confusion and change in mentation. He was apparently brought into the hospital yesterday and admitted to the intensive care unit. Patient was seen in the ICU yesterday for full neurological evaluation. His neurological examination revealed him to have significant left-sided weakness. He was recommended to undergo an MRI of the brain. MRI of the brain was completed yesterday and revealed evidence of multifocal lacunar infarcts bilaterally. These were felt to be acute in nature possibly representing embolic phenomenon. Cardiology was consulted for further evaluation as for need for a YESICA procedure. Patient is being scheduled for YESICA possibly today. Due to the multiple bilateral hemispheric involvement he was sent for a CTA angiogram study of the head and neck yesterday There was no evidence for dissection or significant internal carotid artery stenosis bilaterally. No evidence for any aneurysmal change at the [place] level. Results of the CT angiogram were reviewed yesterday with the patient and his . As noted he is being scheduled for YESICA procedure possibly to be done today by cardiology. YESICA procedure was completed today and revealed no evidence of cardiac source of embolization. No evidence of PFO. We will await further recommendations from cardiology regarding further management for this patient. We reviewed the results of the YESICA today with the patient and and family at bedside. All their questions were answered. He does appear to be more confused today. We have recommended a stat computed tomography scan of the brain to be done STAT to rule out any new areas of acute stroke. Patient is to be seen by pulmonary medicine is he is having increasing symptoms of pulmonary congestion. His stat computed tomography scan of the brain done yesterday evening revealed no new intracranial process. There was evidence of left external auditory canal impaction. He has noted no evidence of acute stroke or hemorrhage. Patient continues to have evidence of low-grade fever this afternoon. Pulmonary medicine has seen the patient and is recommending nebulizer treatments. We will need to monitor him closely. Would recommend reevaluation of his current antibiotics as his temperature still has been unstable. His T-max today is 102.2. His overall mental status remains relatively stable. Patient was seen by Dr. Bay earlier today. He is going to require a PEG tube placement. EGD and PEG tube was performed earlier today. Patient has PEG tube in place and apparently has been tolerating the procedure well. We will await further recommendations from surgery. Hopefully they may be able to start tube feedings today for him. According to the nursing staff he has been tolerating sump tube feedings earlier today. Case was discussed today at length with the patient's sister who was admitted bedside. is aware that he will likely require ECF placement possibly tomorrow to [facility] on the [facility]. Hopefully once he is cleared in terms of his recent ulceration and gastric bleeding he may be considered for restarting on aspirin therapy. He is to continue with full PT OT evaluation at the ECF upon discharge tomorrow. We will continue close neurological follow-up for the patient during this admission. His overall prognosis at this time remains guarded. Objective - Vital Signs Vital signs: Vital Signs Temp 98.1 F 03/01/17 15:00 Pulse 74 03/01/17 15:00 Resp 16 03/01/17 15:00 BP 135/79 03/01/17 15:00 Pulse Ox 98 03/01/17 15:00 Intake & Output 02/28/17 03/01/17 03/01/17 18:59 06:59 18:59 Intake Total 200 1000 400 Balance 200 1000 400 Intake: IV 200 400 Dextrose 5%-0.45% NaCl 1, 400 000 ml @ 75 mls/hr IV . [id number] [facility] Rx#:[id number] Intake, IV Titration 600 Amount Dextrose 5%-0.45% NaCl 1, 600 000 ml @ 75 mls/hr IV . [id number] [facility] Rx#:[id number] Oral 0 Tube Feeding 0 400 Other: Voiding Method Urinal Urinal Urinal Diaper Diaper Diaper Incontinent Incontinent Incontinent # Voids 3 2 - Exam Physical examination: PHYSICAL EXAMINATION: Patient is resting comfortably in bed. VITAL SIGNS: Blood pressure is [135/79]. Heart rate is [74]. Respiration is [16] . Temperature is [98.1]. HEENT: Head is atraumatic, neck is supple, there were no carotid bruits. CHEST: Lungs are clear to auscultation and percussion. CARDIAC: S1, S2 normal rate and rhythm. There is no murmur. ABDOMEN: Soft and nontender. Bowel sounds are present. EXTREMITIES: There is no pedal edema. Peripheral pulses are present. Neurological examination: Patient's neurological examination is unchanged from yesterday. Patient's mental status has improved today. He is more awake and alert. Speech is clear. He is following all simple commands. Patient continues to have evidence of a left upper extremity pronator drift. Facial droop is slightly improved on the left side. - Labs CBC & Chem 7: 02/28/17 06:22 03/01/17 11:04 Labs: Abnormal Lab Results - Last 24 Hours (Table) 02/28/17 03/01/17 03/01/17 Range/Units 21:25 06:00 06:37 Glucose 123 H (74-99) mg/dL POC Glucose (mg/dL) 137 H 131 H (75-99) mg/dL Albumin 3.1 L (3.5-5.0) g/dL 03/01/17 Range/Units 12:26 Glucose (74-99) mg/dL POC Glucose (mg/dL) 128 H (75-99) mg/dL Albumin (3.5-5.0) g/dL Assessment and Plan (1) Acute right arterial ischemic stroke, MCA (middle cerebral artery) Status: Acute Code(s): I63.511 - CEREB INFRC D/T UNSP OCCLS OR STENOS OF RIGHT MID CEREB ART (2) Dysphagia Status: Acute Code(s): R13.10 - DYSPHAGIA, UNSPECIFIED (3) Peptic ulcer disease Status: Acute Code(s): K27.9 - PEPTIC ULC, SITE UNSP, UNSP AC OR CHR, W/O HEMOR OR PERF (4) Hypertension Status: Acute Code(s): I10 - ESSENTIAL (PRIMARY) HYPERTENSION (5) Hyperlipidemia Status: Acute Code(s): E78.5 - HYPERLIPIDEMIA, UNSPECIFIED Plan: This patient is 66-year-old male who was admitted to hospital with acute left- sided weakness. He underwent extensive stroke evaluation including MRI of the brain which revealed evidence of bilateral acute ischemic stroke. He underwent a YESICA procedure which came back negative for any evidence of acute PFO or atrial thrombus. He is unable to start on aspirin or anticoagulants at this time due to recent history of GI bleeding. He underwent a PEG tube placement today which went through successfully for him. Surgery will likely start tube feedings for him earlier today. Patient is more alert and oriented today and is following all simple commands. He is awaiting placement to [facility] on the [facility] possibly by the end of this week. Cardiology has been following the patient closely as well. They're considering placement of a loop recorder for him to further evaluate for paroxysmal atrial fibrillation. We will continue to await further recommendations. Patient underwent placement of the PEG tube yesterday. He has been able to start on some tube feedings today and is tolerating this procedure well. He is being considered for possible discharge to [facility] on the [facility] tomorrow. He will need to continue with stroke rehabilitation there but PT/OT and speech therapy. We will continue close neurological follow-up with the patient during this admission. His overall prognosis at this time remains very guarded.
[2017-03-01] MEDS: ALBUTEROL NEBULIZED 2.5 MG/3 ML INHALATION PRN (19:05)
[2017-03-01 20:26] LABS: Glucose,Whole Blood 134 mg/dL (75-99)
[2017-03-01] MEDS: AZITHROMYCIN 500 MG TAB PO SCH (21:22)
[2017-03-02] MEDS: DEXTROSE 5%-0.45% NACL 1,000 ML IV SCH ×2 (04:59→12:22)
[2017-03-02] MEDS: BUDESONIDE 0.5 MG/2 ML NEBU INHALATION SCH ×2 (07:26→20:07)
[2017-03-02] MEDS: BEVESPI AEROSPHERE INHALATION SCH ×2 (07:26→20:07)
[2017-03-02 07:34] LABS: Glucose,Whole Blood 163 mg/dL (75-99)
--- NOTE | 2017-03-02 07:41 | P.DS ---
Providers Date of admission: 02/23/17 23:32 Attending physician: Noah Rivas Consults: 02/24/17 16:00 Consult Physician Urgent Consulting Provider: Baron Moctezuma Consult Reason/Comments: Acute cardioembolic stroke, needs YESICA procedure. Do you want consulting provider notified?: Yes 02/26/17 14:57 Consult Physician Routine Consulting Provider: Armando Goldsmith Consult Reason/Comments: COPD Do you want consulting provider notified?: Yes 02/27/17 10:27 Consult Physician Urgent Consulting Provider: Baron Moctezuma Consult Reason/Comments: stroke, negative YESICA. Possible loop recorder Do you want consulting provider notified?: Already Contacted 02/27/17 15:25 Consult Physician Urgent Consulting Provider: Gaudencio Bay Consult Reason/Comments: Peg tube Do you want consulting provider notified?: Yes Primary care physician: Noah Rivas - Discharge Diagnosis(es) (1) COPD (chronic obstructive pulmonary disease) Current Visit: Yes Status: Acute (2) Acute right arterial ischemic stroke, MCA (middle cerebral artery) Current Visit: Yes Status: Acute (3) Dysphagia Current Visit: Yes Status: Acute (4) Hyperlipidemia Current Visit: Yes Status: Acute (5) Hypertension Current Visit: Yes Status: Acute Hospital Course: This is a discharge summary on a 66-year-old black male essentially admitted for CVA. The patient was medically stabilized. However, he could not eat appropriately and speech therapy had recommended PEG tube placement. General surgery was consulted and he is now been tolerating PEG tube feedings. The patient is now going to be transferred to [facility]. Neurology has cleared the patient and the patient will now be transferred one bed available. Patient Condition at Discharge: Fair Plan - Discharge Summary Discharge Medication List Atorvastatin [Lipitor] 40 mg PO DAILY 02/23/17 [History] Cholecalciferol [Vitamin D3] 1,000 unit PO DAILY 02/23/17 [History] Cyanocobalamin (Vitamin B-12) [Vitamin B-12] 1,000 mcg PO DAILY 02/23/17 [ History] Glycopyrrolate/Formoterol Fum [Bevespi Aerosphere Inhaler] 1 puff INHALATION RT- BID 02/23/17 [History] Omeprazole [PriLOSEC] 20 mg PO AC-BID 02/23/17 [History] amLODIPine BES/OLMESARTAN MED [amLODIPine BES/OLMESARTAN MED 10-40 mg] 1 tab PO DAILY 02/23/17 [History] Acetaminophen Tab [Tylenol] 650 mg PO Q4HR PRN #0 tab 03/02/17 [Rx] Albuterol Nebulized [Ventolin Nebulized] 2.5 mg INHALATION RT-QID PRN #0 nebu [Rx] Aspirin 81 mg PO DAILY chew 03/02/17 [Rx] Budesonide [Pulmicort] 0.5 mg INHALATION RT-BID nebu 03/02/17 [Rx] Docusate Oral Soln [Colace Oral Soln] 100 mg NG-TUBE Q8HR ml 03/02/17 [Rx] Zolpidem [Ambien] 5 mg PO HS PRN #0 tab 03/02/17 [Rx] Follow up Appointment(s)/Referral(s): Armando Goldsmith MD [STAFF PHYSICIAN] - 1 Week Noah Rivas MD [Primary Care Provider] - 2 Weeks
[2017-03-02] MEDS: amLODIPine 10 MG TAB PO SCH (08:19)
[2017-03-02] MEDS: DOCUSATE ORAL SOLN 100 MG/10 ML CUP NG-TUBE SCH ×2 (08:19→16:19)
[2017-03-02] MEDS: ASPIRIN 81 MG CHEW PO SCH (08:20)
[2017-03-02] MEDS: CYANOCOBALAMIN 500 MCG TAB PO SCH (08:20)
[2017-03-02] MEDS: LOSARTAN 50 MG TAB PO SCH (08:20)
[2017-03-02] MEDS: ENOXAPARIN 40 MG/0.4 ML SYRINGE SQ SCH (08:20)
[2017-03-02] MEDS: CHOLECALCIFEROL 1,000 UNIT TAB PO SCH (08:21)
[2017-03-02] MEDS: ATORVASTATIN 40 MG TAB PO SCH (08:21)
[2017-03-02] MEDS: ACETAMINOPHEN TAB 325 MG TAB PO PRN (08:36)
[2017-03-02] MEDS: PANTOPRAZOLE 40 MG TABLET PO SCH ×2 (08:36→18:09)
[2017-03-02 11:55] LABS: Glucose,Whole Blood 149 mg/dL (75-99)
[2017-03-02 11:57] VITALS: BMI 21.7
--- NOTE | 2017-03-02 13:45 | P.PN ---
Subjective This is a 66-year-old male patient who is being evaluated and examined today on the sixth floor. Patient was brought into the emergency room I his apparently the patient had been lethargic for about 3 hours before coming to the emergency room. He was noted to have a significant amount of right-sided weakness and having difficulty walking as well as difficulty with speech. The patient does have a history of previous stroke which caused some right-sided weakness as well as dementia. Patient has being evaluated by neurology for what appears to be vascular dementia. She is also known to have a history of COPD, is a current every day smoker, 1 pack per day. Chest x-ray reveals some left basilar atelectasis. CT of the brain shows no new intracranial processes. Patient had a YESICA, Ejection fraction 55-60%. Upon examination the patient is resting up in bed with physical family at bedside. The patient has not required supplemental oxygen in the last 48 hours. However he is still requiring his breathing treatments. Patient does have a productive cough with clear sputum. Patient had peg tube placement and was started on tube feedings, he is tolerating well. Patient is being set up for discharge today. Objective - Vital Signs Vital signs: Vital Signs Temp 98.6 F 03/02/17 07:00 Pulse 72 03/02/17 07:36 Resp 18 03/02/17 07:00 BP 141/73 03/02/17 07:00 Pulse Ox 96 03/02/17 07:00 Intake & Output 03/01/17 03/02/17 03/02/17 18:59 06:59 18:59 Intake Total 1600 1040 30 Balance 1600 1040 30 Weight 77 kg 77 kg Intake: IV 1600 Dextrose 5%-0.45% NaCl 1, 1600 000 ml @ 75 mls/hr IV . [id number] [facility] Rx#:[id number] Tube Feeding 1040 30 Other: Voiding Method Urinal Urinal Urinal Diaper Diaper Diaper Incontinent Incontinent Incontinent # Voids 4 1 - Exam ENERAL EXAM: Alert, comfortable in no apparent distress. HEAD: Normocephalic. Left-sided facial droop EYES: Normal reaction of pupils, equal size. NOSE: Clear with pink turbinates. THROAT: No erythema or exudates. NECK: No masses, no JVD. CHEST: No chest wall deformity. LUNGS: Equal air entry with faint wheeze. Bases diminished CVS: S1 and S2 normal with systolic mumurs, regular rhythm. ABDOMEN: No hepatosplenomegaly, normal bowel sounds, no guarding or rigidity. PEG tube present EXTREMITIES: No edema noted, pedal pulses palpable. SKIN: No rashes CENTRAL NERVOUS SYSTEM: Slight muscle weakness noted to the right upper extremity. - Labs CBC & Chem 7: 02/28/17 06:22 03/01/17 11:04 Labs: Abnormal Lab Results - Last 24 Hours (Table) 03/01/17 03/01/17 03/02/17 Range/Units 17:25 20:06 07:33 POC Glucose (mg/dL) 124 H 134 H 163 H (75-99) mg/dL 03/02/17 Range/Units 11:54 POC Glucose (mg/dL) 149 H (75-99) mg/dL Microbiology - Last 24 Hours (Table) 02/28/17 18:32 Blood Culture - Preliminary Blood No Growth after 24 hours 02/28/17 18:08 Blood Culture - Preliminary Blood No Growth after 24 hours Assessment and Plan Plan: Assessment Acute embolic bihemispheric stroke causing dysphasia and some right-sided weakness COPD Dementia Hypertension Dyslipidemia Anemia of chronic disease Nicotine dependence Dysphagia secondary to CVA Plan Patient is cleared from a pulmonary stand point to be discharged to ECF. Medications have been reviewed and will be continued. Continue with current nebulizer treatments. Incentive spirometer initiated and encouraged. We will continue with pulmonary hygiene and supportive care. Patient has suction equipment at bedside. Smoking cessation encouraged. Continue to monitor PEG tube sites. We'll continue to monitor labs/results and adjust treatment as necessary. I performed an examination of the patient and discussed their management with the nurse practitioner. I have reviewed the nurse practitioner's note and agree with the documented findings and plan of care.
--- NOTE | 2017-03-02 15:23 | P.PN ---
Subjective This patient is a 66-year-old -[place] male who was admitted to the hospital for evaluation of altered mental status and possible stroke. Patient was noted by his is having increased confusion and change in mentation. He was apparently brought into the hospital yesterday and admitted to the intensive care unit. Patient was seen in the ICU yesterday for full neurological evaluation. His neurological examination revealed him to have significant left-sided weakness. He was recommended to undergo an MRI of the brain. MRI of the brain was completed yesterday and revealed evidence of multifocal lacunar infarcts bilaterally. These were felt to be acute in nature possibly representing embolic phenomenon. Cardiology was consulted for further evaluation as for need for a YESICA procedure. Patient is being scheduled for YESICA possibly today. Due to the multiple bilateral hemispheric involvement he was sent for a CTA angiogram study of the head and neck yesterday There was no evidence for dissection or significant internal carotid artery stenosis bilaterally. No evidence for any aneurysmal change at the [place] level. Results of the CT angiogram were reviewed yesterday with the patient and his . As noted he is being scheduled for YESICA procedure possibly to be done today by cardiology. YESICA procedure was completed today and revealed no evidence of cardiac source of embolization. No evidence of PFO. We will await further recommendations from cardiology regarding further management for this patient. We reviewed the results of the YESICA today with the patient and and family at bedside. All their questions were answered. He does appear to be more confused today. We have recommended a stat computed tomography scan of the brain to be done STAT to rule out any new areas of acute stroke. Patient is to be seen by pulmonary medicine is he is having increasing symptoms of pulmonary congestion. His stat computed tomography scan of the brain done yesterday evening revealed no new intracranial process. There was evidence of left external auditory canal impaction. He has noted no evidence of acute stroke or hemorrhage. Patient continues to have evidence of low-grade fever this afternoon. Pulmonary medicine has seen the patient and is recommending nebulizer treatments. We will need to monitor him closely. Would recommend reevaluation of his current antibiotics as his temperature still has been unstable. His T-max today is 102.2. His overall mental status remains relatively stable. Patient was seen by Dr. Bay earlier today. He is going to require a PEG tube placement. EGD and PEG tube was performed earlier today. Patient has PEG tube in place and apparently has been tolerating the procedure well. We will await further recommendations from surgery. Hopefully they may be able to start tube feedings today for him. According to the nursing staff he has been tolerating sump tube feedings earlier today. Case was discussed today at length with the patient's sister who was admitted bedside. is aware that he will likely require ECF placement possibly tomorrow to [facility] the [facility]. Hopefully once he is cleared in terms of his recent ulceration and gastric bleeding he may be considered for restarting on aspirin therapy. Patient is resting comfortably sitting up in bed. Family at bedside. His breathing has improved in the last 48 hours. He is requiring some breathing treatments. Patient is being cleared for discharge to [facility] later today. He may follow-up as needed in the outpatient neurology clinic once he is discharged from the ECF. We will continue close neurological follow-up for the patient during this admission. His overall prognosis at this time remains guarded. Objective - Vital Signs Vital signs: Vital Signs Temp 98.6 F 03/02/17 07:00 Pulse 72 03/02/17 07:36 Resp 18 03/02/17 07:00 BP 141/73 03/02/17 07:00 Pulse Ox 96 03/02/17 07:00 Intake & Output 03/01/17 03/02/17 03/02/17 18:59 06:59 18:59 Intake Total 1600 1040 770 Balance 1600 1040 770 Weight 77 kg 77 kg Intake: IV 1600 600 Dextrose 5%-0.45% NaCl 1, 1600 600 000 ml @ 75 mls/hr IV . [id number] HAM Rx#:[id number] Intake, IV Titration 100 Amount cefTRIAXone 1,000 mg In 100 Sodium Chloride 0.9% 50 ml @ 100 mls/hr IVPB HS HAM Rx#:[id number] Tube Feeding 1040 70 Other: Voiding Method Urinal Urinal Urinal Diaper Diaper Diaper Incontinent Incontinent Incontinent # Voids 4 1 - Exam Physical examination: PHYSICAL EXAMINATION: Patient is resting comfortably in bed. VITAL SIGNS: Blood pressure is [141/73]. Heart rate is [62]. Respiration is [18] . Temperature is [98.7]. HEENT: Head is atraumatic, neck is supple, there were no carotid bruits. CHEST: Lungs are clear to auscultation and percussion. CARDIAC: S1, S2 normal rate and rhythm. There is no murmur. ABDOMEN: Soft and nontender. Bowel sounds are present. EXTREMITIES: There is no pedal edema. Peripheral pulses are present. Neurological examination: Patient's neurological examination is unchanged from yesterday. Patient's mental status has improved today. He is more awake and alert. Speech is clear. He is following all simple commands. Patient continues to have evidence of a left upper extremity pronator drift. Facial droop is slightly improved on the left side. - Labs CBC & Chem 7: 02/28/17 06:22 03/01/17 11:04 Labs: Abnormal Lab Results - Last 24 Hours (Table) 03/01/17 03/01/17 03/02/17 Range/Units 17:25 20:06 07:33 POC Glucose (mg/dL) 124 H 134 H 163 H (75-99) mg/dL 03/02/17 Range/Units 11:54 POC Glucose (mg/dL) 149 H (75-99) mg/dL Microbiology - Last 24 Hours (Table) 02/28/17 18:32 Blood Culture - Preliminary Blood No Growth after 24 hours 02/28/17 18:08 Blood Culture - Preliminary Blood No Growth after 24 hours Assessment and Plan (1) Acute right arterial ischemic stroke, MCA (middle cerebral artery) Status: Acute Code(s): I63.511 - CEREB INFRC D/T UNSP OCCLS OR STENOS OF RIGHT MID CEREB ART (2) Dysphagia Status: Acute Code(s): R13.10 - DYSPHAGIA, UNSPECIFIED (3) Peptic ulcer disease Status: Acute Code(s): K27.9 - PEPTIC ULC, SITE UNSP, UNSP AC OR CHR, W/O HEMOR OR PERF (4) Hypertension Status: Acute Code(s): I10 - ESSENTIAL (PRIMARY) HYPERTENSION (5) Hyperlipidemia Status: Acute Code(s): E78.5 - HYPERLIPIDEMIA, UNSPECIFIED Plan: This patient is 66-year-old male who was admitted to hospital with acute left- sided weakness. He underwent extensive stroke evaluation including MRI of the brain which revealed evidence of bilateral acute ischemic stroke. He underwent a YESICA procedure which came back negative for any evidence of acute PFO or atrial thrombus. He is unable to start on aspirin or anticoagulants at this time due to recent history of GI bleeding. He underwent a PEG tube placement today which went through successfully for him. Surgery will likely start tube feedings for him earlier today. Patient is more alert and oriented today and is following all simple commands. He is awaiting placement to [facility] the [facility] possibly by the end of this week. Cardiology has been following the patient closely as well. They're considering placement of a loop recorder for him to further evaluate for paroxysmal atrial fibrillation. We will continue to await further recommendations. Patient underwent placement of the PEG tube yesterday. He has been able to start on some tube feedings today and is tolerating this procedure well. He is being considered for possible discharge to [facility] on the [facility] later today. He has been sitting up in chair and seems to be doing better today. His tube feedings have been resumed and he is tolerating this well. He is being considered for transfer ECF later today. His overall prognosis at this time remains guarded. He will need to continue with stroke rehabilitation there but PT/OT and speech therapy. We will continue close neurological follow-up with the patient during this admission. His overall prognosis at this time remains very guarded.
[2017-03-02 16:37] VITALS: RESP 16
--- NOTE | 2017-03-02 17:18 | P.PN ---
Subjective Principal diagnosis: Malnutrition Patient doing well. He is currently tolerating his tube feeds at 40 mL per hour. Minimal discomfort. Objective - Vital Signs Vital signs: Vital Signs Temp 98.2 F 03/02/17 15:00 Pulse 64 03/02/17 15:00 Resp 16 03/02/17 15:00 BP 135/73 03/02/17 15:00 Pulse Ox 97 03/02/17 15:00 Intake & Output 03/01/17 03/02/17 03/02/17 18:59 06:59 18:59 Intake Total 1600 1040 810 Balance 1600 1040 810 Weight 77 kg 78.2 kg Intake: IV 1600 600 Dextrose 5%-0.45% NaCl 1, 1600 600 000 ml @ 75 mls/hr IV . [id number] HAM Rx#:[id number] Intake, IV Titration 100 Amount cefTRIAXone 1,000 mg In 100 Sodium Chloride 0.9% 50 ml @ 100 mls/hr IVPB HS HAM Rx#:[id number] Tube Feeding 1040 110 Other: Voiding Method Urinal Urinal Urinal Diaper Diaper Diaper Incontinent Incontinent Incontinent # Voids 4 1 1 # Bowel Movements 1 - Exam Abdomen: Soft, nondistended, mild tenderness at PEG tube site - Labs CBC & Chem 7: 02/28/17 06:22 03/01/17 11:04 Labs: Abnormal Lab Results - Last 24 Hours (Table) 03/01/17 03/01/17 03/02/17 Range/Units 17:25 20:06 07:33 POC Glucose (mg/dL) 124 H 134 H 163 H (75-99) mg/dL 03/02/17 Range/Units 11:54 POC Glucose (mg/dL) 149 H (75-99) mg/dL Microbiology - Last 24 Hours (Table) 02/28/17 18:32 Blood Culture - Preliminary Blood No Growth after 24 hours 02/28/17 18:08 Blood Culture - Preliminary Blood No Growth after 24 hours Assessment and Plan (1) Acute right arterial ischemic stroke, MCA (middle cerebral artery) Narrative/Plan: Continue advancing tube feeds as tolerated. The patient's bolster was loosened slightly at the bedside. Will sign off at this point. Please contact if needed. Status: Acute
[2017-03-02 17:29] LABS: Glucose,Whole Blood 143 mg/dL (75-99)
[2017-03-02 20:05] LABS: Glucose,Whole Blood 152 mg/dL (75-99)
[2017-03-02] MEDS: ALBUTEROL NEBULIZED 2.5 MG/3 ML INHALATION PRN (20:07)
[2017-03-02] MEDS: AZITHROMYCIN 500 MG TAB PO SCH (20:51)
[2017-03-03] MEDS: DOCUSATE ORAL SOLN 100 MG/10 ML CUP NG-TUBE SCH ×2 (00:56→10:04)
[2017-03-03] MEDS: DEXTROSE 5%-0.45% NACL 1,000 ML IV SCH (00:56)
[2017-03-03 02:49] LABS: Glucose,Whole Blood 164 mg/dL (75-99)
[2017-03-03 05:57] LABS: Glucose,Whole Blood 163 mg/dL (75-99)
[2017-03-03] MEDS: ALBUTEROL NEBULIZED 2.5 MG/3 ML INHALATION PRN (07:32)
[2017-03-03] MEDS: BUDESONIDE 0.5 MG/2 ML NEBU INHALATION SCH (07:32)
[2017-03-03] MEDS: BEVESPI AEROSPHERE INHALATION SCH (07:33)
[2017-03-03 07:58] VITALS: BP 168/88; PULSE 77; TEMP 98.2
[2017-03-03] MEDS: ATORVASTATIN 40 MG TAB PO SCH (10:04)
[2017-03-03] MEDS: ASPIRIN 81 MG CHEW PO SCH (10:04)
[2017-03-03] MEDS: PANTOPRAZOLE 40 MG TABLET PO SCH (10:04)
[2017-03-03] MEDS: CHOLECALCIFEROL 1,000 UNIT TAB PO SCH (10:04)
[2017-03-03] MEDS: CYANOCOBALAMIN 500 MCG TAB PO SCH (10:04)
[2017-03-03] MEDS: LOSARTAN 50 MG TAB PO SCH (10:04)
[2017-03-03] MEDS: amLODIPine 10 MG TAB PO SCH (10:04)
[2017-03-03] MEDS: ENOXAPARIN 40 MG/0.4 ML SYRINGE SQ SCH (10:05)
--- NOTE | 2017-03-03 12:25 | DS ---
DATE OF ADMISSION: 02/23/2017 DATE OF DISCHARGE: Patient is admitted for a PEG tube placement and patient was discharged by Dr. Rivas yesterday, but because of some issues with the shelter patient ended up staying in the hospital. I did review the medication reconciliation. Patient was discharged on Ambien, script was not provided. I did provide the script. I did review Dr. Rivas's discharge summary. I did see the patient, examined the patient and patient's vitals are stable. PHYSICAL EXAMINATION: GENERAL: The patient is alert and oriented x3, not in any acute distress. Well developed, well nourished. HEENT: Pupils are round and equally reacting to light. EOMI. No scleral icterus. No conjunctival pallor. Normocephalic, atraumatic. No pharyngeal erythema. No thyromegaly. CARDIOVASCULAR: S1 and S2 present. No murmurs, rubs, or gallops. PULMONARY: Chest is clear to auscultation, no wheezing or crackles. ABDOMEN: No significant change compared to yesterday. MUSCULOSKELETAL: No joint swelling or deformity. EXTREMITIES: No cyanosis, clubbing, or pedal edema. NEUROLOGICAL: No change compared to yesterday. SKIN: No rashes. Patient will be discharged today. Please refer to Dr. Rivas's dictation for further details of hospitalization course. Patient will be discharged today to subacute rehabilitation.
--- NOTE | 2017-03-03 17:42 | PN ---
Abram Sesay was seen on 03/03/2017. He does not complain of any shortness of breath. He has no chest pain. On physical examination, blood pressure 168/88, respiratory rate 16, pulse rate of 77, temperature 98.2 degrees Fahrenheit. HEENT is unremarkable. Chest is clear. Cardiovascular system reveals an S1 and S2. Abdomen is soft. There is no edema. IMPRESSION AT THIS TIME: 1. Right-sided weakness secondary to embolic hemispheric stroke. 2. Chronic obstructive pulmonary disease. 3. Dementia. 4. Hypertension. Agree with discharge planning. Continue bronchodilators. Continue incentive spirometry. PT would help and is being arranged.
--- NOTE | 2017-03-06 14:21 | CDI ---
In responding to this query, please exercise your independent professional judgment. The [facility] Coding Staff and Clinical Documentation Specialists appreciate your assistance in clarifying documentation, maintaining compliance with coding guidelines, accurately documenting patients condition and capturing severity of illness. The fact that a question is asked does not imply that any particular answer is desired or expected. Communication forms are a method of clarifying documentation and are not made part of the Legal Health Record. Thank you in advance for your clarification. Last Revision, August 2015 Elvia Hines [address] [place] [address] Documentation Clarification Form Date: 03/06/2017 1:44:00 PM From: Sharmaine Rios/Sigrid Parra Admit Date: 02/23/2017 11:32:00 PM Patient Name: Abram Sesay Visit Number: [id number] Discharge Date: Dr. Gaudencio Bay Malnutrition has been documented in your consult note, 03/01 - 03/02 progress notes and procedure note. History/Risk Factors: Patient admitted with emoblic stroke with weakness, facial droop and dysphagia. Clinical Indicators: diminished functional status with weakness, dysphagia, weight loss, lack of appetite Labs: Albumin 3.8 on admission and dropped to 3.1 on dischage, Total protein 7.4 on admission and dropped to 6.5 on discharge. Current BMI: 22.1 Insufficient energy intake: Patient was NPO Treatment: PEG placement Dietary Consult: Inadequate oral intake, failed swallow study Lab monitoring: Monitored albumin and total protein In your professional opinion, can you please clarify if these findings signify one of the following conditions? Mild Protein Malnutrition Mild Protein-Calorie Malnutrition Moderate Protein Malnutrition Moderate Protein-Calorie Malnutrition Severe Protein Malnutrition Severe Protein-Calorie Malnutrition Malnutrition following GI surgery Malnutrition Other condition, please specify Unable to determine Please document in your progress notes and discharge summary in order to capture severity of illness and risk of mortality. Include clinical findings that support your diagnosis. FYI: Press F11 to launch patient chart. Place X here if this finding has no clinical significance, is not applicable or if you are not able to provide any additional documentation. MTDD
== END 2017-03-03 12:05 | DRG 65 ==
LOC: EC 21:38 → 6ICU 23:32 → 6SEL 02-24 17:17 → 5MS5E 03-01 09:17
PROVIDERS: ADMIT Family Medicine; ATTEND Family Medicine
PROC: B246ZZ4 Ultrasonography of Right and Left Heart, Transesophageal (ICD-10-PCS; 2017-02-26)
PROC: 0DH63UZ Insertion of Feeding Device into Stomach, Percutaneous Approach (ICD-10-PCS; principal; 2017-02-28 08:25)
DX: I63.411 Cerebral infarction due to embolism of right middle cerebral artery (principal); J44.1 Chronic obstructive pulmonary disease with (acute) exacerbation; E44.0 Moderate protein-calorie malnutrition; I69.951 Hemiplegia and hemiparesis following unspecified cerebrovascular disease affecting right dominant side; J98.11 Atelectasis; R13.10 Dysphagia, unspecified; F03.90 Unspecified dementia, unspecified severity, without behavioral disturbance, psychotic disturbance, mood disturbance, and anxiety; R32 Unspecified urinary incontinence; R29.810 Facial weakness; R53.1 Weakness; D63.8 Anemia in other chronic diseases classified elsewhere; E78.5 Hyperlipidemia, unspecified; F17.210 Nicotine dependence, cigarettes, uncomplicated; I10 Essential (primary) hypertension; K21.9 Gastro-esophageal reflux disease without esophagitis; K27.9 Peptic ulcer, site unspecified, unspecified as acute or chronic, without hemorrhage or perforation; I69.911 Memory deficit following unspecified cerebrovascular disease; Z79.899 Other long term (current) drug therapy; Z96.651 Presence of right artificial knee joint; Z68.22 Body mass index [BMI] 22.0-22.9, adult
CPT/HCPCS: 36415; 43246; 70450; 70496; 70498; 70551; 71010; 71020; 74230; 80048; 80053; 80061; 81003; 82550; 82553; 82607; 83036; 83540; 83550; 83605; 83735; 84100; 84132; 84484; 85025; 85027; 85610; 85730; 87040; 87086; 93005; 93306; 93312; 93320; 93325; 93880; 94640; 95819; 99285

== ENCOUNTER 2017-04-27 17:57 | Inpatient (IN) | payer MEDICARE, BC ==
--- NOTE | 2017-04-27 18:26 | ED ---
General Adult HPI - General Chief complaint: Neuro Symptoms/Deficit Stated complaint: Foot numbness Time Seen by Provider: 04/27/17 18:00 Source: family, EMS, RN notes reviewed Mode of arrival: EMS Limitations: no limitations - History of Present Illness Initial comments: This is a 66-year-old male with past medical history significant for stroke. [facility]. Patient states at home he started feeling that his foot was heavily but he had full range of motion. Patient states that is his only complaint. shows up shortly thereafter and she states that he was completely slumped over not speaking to her and try to drink some water and was unable to get the water down his throat. Moist states this lasted about 5 minutes at which point his symptoms kind of faded away and he only had the complaint of the foot heaviness. Patient currently still thinks his foot feels a little heavy but he is able to move it fully he does not have slurred speech according to the and he denies any headache at this time. Patient denies any other symptoms at this time. Patient denies any chest pain patient denies any abdominal pain patient denies nausea vomiting diarrhea. - Related Data Home Medications Medication Instructions Recorded Confirmed Atorvastatin [Lipitor] 40 mg PO DAILY 02/23/17 02/23/17 Cholecalciferol [Vitamin D3] 1,000 unit PO DAILY 02/23/17 02/23/17 Cyanocobalamin (Vitamin B-12) 1,000 mcg PO DAILY 02/23/17 02/23/17 [Vitamin B-12] Glycopyrrolate/Formoterol Fum 1 puff INHALATION RT-BID 02/23/17 02/23/17 [Bevespi Aerosphere Inhaler] Omeprazole [PriLOSEC] 20 mg PO AC-BID 02/23/17 02/23/17 amLODIPine BES/OLMESARTAN MED 1 tab PO DAILY 02/23/17 02/23/17 [amLODIPine BES/OLMESARTAN MED 10-40 mg] Previous Rx's Medication Instructions Recorded Acetaminophen Tab [Tylenol] 650 mg PO Q4HR PRN #0 tab 03/02/17 Albuterol Nebulized [Ventolin 2.5 mg INHALATION RT-QID PRN #0 03/02/17 Nebulized] nebu Aspirin 81 mg PO DAILY chew 03/02/17 Budesonide [Pulmicort] 0.5 mg INHALATION RT-BID nebu 03/02/17 Docusate Oral Soln [Colace Oral 100 mg NG-TUBE Q8HR ml 03/02/17 Soln] Zolpidem [Ambien] 5 mg PO HS PRN #0 tab 03/02/17 Allergies Allergy/AdvReac Type Severity Reaction Status Date / Time No Known Allergies Allergy Verified 04/27/17 18:59 Review of Systems ROS Statement: Those systems with pertinent positive or pertinent negative responses have been documented in the HPI. ROS Other: All systems not noted in ROS Statement are negative. 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 OCC EDEMA FEET. Current Gastric Ulcer. Stroke on 02/23/17 History of Any Multi-Drug Resistant Organisms: None Reported Past Surgical History: Hernia Repair, Joint Replacement, Orthopedic Surgery Additional Past Surgical History / Comment(s): RT TOTAL KNEE Past Anesthesia/Blood Transfusion Reactions: No Reported Reaction Past Psychological History: No Psychological Hx Reported Smoking Status: Former smoker Past Alcohol Use History: None Reported Past Drug Use History: None Reported - Past Family History Mother Family Medical History: No Reported History General Exam - General Exam Comments Initial Comments: GENERAL: Patient is well-developed and well-nourished. Patient is nontoxic and well- hydrated and is in mild distress. ENT: Neck is soft and supple. No significant lymphadenopathy is noted. Oropharynx is clear. Moist mucous membranes. Neck has full range of motion without eliciting any pain. EYES: The sclera were anicteric and conjunctiva were pink and moist. Extraocular movements were intact and pupils were equal round and reactive to light. Eyelids were unremarkable. PULMONARY: Unlabored respirations. Good breath sounds bilaterally. No audible rales rhonchi or wheezing was noted. CARDIOVASCULAR: There is a regular rate and rhythm without any murmurs gallops or rubs. ABDOMEN: Soft and nontender with normal bowel sounds. No palpable organomegaly was noted. There is no palpable pulsatile mass. SKIN: Skin is clear with no lesions or rashes and otherwise unremarkable. NEUROLOGIC: Patient is alert and oriented x3. Cranial nerves II through XII are grossly intact. Motor and sensory are also intact. Normal speech, volume and content. Symmetrical smile. Patient has slight facial droop on the right which is residual MUSCULOSKELETAL: Normal extremities with adequate strength and full range of motion. LYMPHATICS: No significant lymphadenopathy is noted PSYCHIATRIC: Normal psychiatric evaluation. Normal interpersonal interactions appears functionally intact in deals appropriately with others. Limitations: no limitations Course Vital Signs 04/27/17 04/27/17 04/27/17 18:00 18:52 19:12 Temperature 98.6 F 97.6 F Pulse Rate 101 H 100 99 Respiratory 20 18 18 Rate Blood Pressure 124/63 116/63 127/66 O2 Sat by Pulse 98 98 96 Oximetry Medical Decision Making - Medical Decision Making CT of the brain shows no acute normalities. Chest x-ray shows no acute normalities. EKG shows normal sinus rhythm at 90 bpm MD interval is 166 dresses 84 QT interval 370 QTC is 472. Patient does have some T-wave inversions in leads V4 through V6. I spoke to the patient after lab work was back in CAT scan was done he was asymptomatic at this time. states he is back to his baseline. - Lab Data Result diagrams: 04/27/17 18:22 04/27/17 18:22 Lab Results 04/27/17 04/27/17 04/27/17 Range/Units 18:22 18:22 18:22 WBC 8.2 (3.8-10.6) k/uL RBC 3.21 L (4.30-5.90) m/uL Hgb 9.8 L (13.0-17.5) gm/dL Hct 30.1 L (39.0-53.0) % MCV 93.8 (80.0-100.0) fL MCH 30.6 (25.0-35.0) pg MCHC 32.7 (31.0-37.0) g/dL RDW 17.1 H (11.5-15.5) % Plt Count 341 (150-450) k/uL Neutrophils % 63 % Lymphocytes % 25 % Monocytes % 6 % Eosinophils % 3 % Basophils % 1 % Neutrophils # 5.1 (1.3-7.7) k/uL Lymphocytes # 2.1 (1.0-4.8) k/uL Monocytes # 0.5 (0-1.0) k/uL Eosinophils # 0.2 (0-0.7) k/uL Basophils # 0.1 (0-0.2) k/uL Anisocytosis Slight PT (9.0-12.0) sec INR (<1.1) APTT (22.0-30.0) sec Sodium 136 L (137-145) mmol/L Potassium 4.6 (3.5-5.1) mmol/L Chloride 103 (98-107) mmol/L Carbon Dioxide 22 (22-30) mmol/L Anion Gap 11 mmol/L BUN 18 (9-20) mg/dL Creatinine 1.19 (0.66-1.25) mg/dL Est GFR (MDRD) Af Amer >60 (>60 ml/min/1.73 sqM) Est GFR (MDRD) Non-Af >60 (>60 ml/min/1.73 sqM) Glucose 118 H (74-99) mg/dL Calcium 9.5 (8.4-10.2) mg/dL Total Bilirubin 0.7 (0.2-1.3) mg/dL AST 35 (17-59) U/L ALT 34 (21-72) U/L Alkaline Phosphatase 106 (38-126) U/L Total Creatine Kinase 67 (55-170) U/L CK-MB (CK-2) 0.5 (0.0-2.4) ng/mL CK-MB (CK-2) Rel Index 0.7 Troponin I <0.012 (0.000-0.034) ng/mL Total Protein 7.3 (6.3-8.2) g/dL Albumin 3.9 (3.5-5.0) g/dL 04/27/17 Range/Units 18:22 WBC (3.8-10.6) k/uL RBC (4.30-5.90) m/uL Hgb (13.0-17.5) gm/dL Hct (39.0-53.0) % MCV (80.0-100.0) fL MCH (25.0-35.0) pg MCHC (31.0-37.0) g/dL RDW (11.5-15.5) % Plt Count (150-450) k/uL Neutrophils % % Lymphocytes % % Monocytes % % Eosinophils % % Basophils % % Neutrophils # (1.3-7.7) k/uL Lymphocytes # (1.0-4.8) k/uL Monocytes # (0-1.0) k/uL Eosinophils # (0-0.7) k/uL Basophils # (0-0.2) k/uL Anisocytosis PT 10.2 (9.0-12.0) sec INR 1.0 (<1.1) APTT 21.5 L (22.0-30.0) sec Sodium (137-145) mmol/L Potassium (3.5-5.1) mmol/L Chloride (98-107) mmol/L Carbon Dioxide (22-30) mmol/L Anion Gap mmol/L BUN (9-20) mg/dL Creatinine (0.66-1.25) mg/dL Est GFR (MDRD) Af Amer (>60 ml/min/1.73 sqM) Est GFR (MDRD) Non-Af (>60 ml/min/1.73 sqM) Glucose (74-99) mg/dL Calcium (8.4-10.2) mg/dL Total Bilirubin (0.2-1.3) mg/dL AST (17-59) U/L ALT (21-72) U/L Alkaline Phosphatase (38-126) U/L Total Creatine Kinase (55-170) U/L CK-MB (CK-2) (0.0-2.4) ng/mL CK-MB (CK-2) Rel Index Troponin I (0.000-0.034) ng/mL Total Protein (6.3-8.2) g/dL Albumin (3.5-5.0) g/dL Disposition Clinical Impression: Transient cerebral ischemia Disposition: ADMITTED IP TO THIS HOSP Referrals: Noah Rivas MD [STAFF PHYSICIAN] - 1-2 days Time of Disposition: 19:23
[2017-04-27 18:45] LABS: Anisocytosis Slight; Basophils # (A) 0.1 k/uL (0-0.2); Basophils % (A) 1 %; CH 31.3; CHCM 33.4; Eosinophils # (A) 0.2 k/uL (0-0.7); Eosinophils % (A) 3 %; HCT 30.1 % (39.0-53.0); HDW 2.87; HGB 9.8 gm/dL (13.0-17.5); Luc # (Auto) 0.26; Luc % (Auto) 3; Lymphocytes # (A) 2.1 k/uL (1.0-4.8); Lymphocytes % (A) 25 %; MCH 30.6 pg (25.0-35.0); MCHC 32.7 g/dL (31.0-37.0); MCV 93.8 fL (80.0-100.0); Mean Platelet Volume 6.9; Monocytes # (A) 0.5 k/uL (0-1.0); Monocytes % (A) 6 %; Neutrophils # (A) 5.1 k/uL (1.3-7.7); Neutrophils % (A) 63 %; RBC 3.21 m/uL (4.30-5.90); RDW 17.1 % (11.5-15.5); WBC 8.2 k/uL (3.8-10.6); WBC (Perox) 8.44
[2017-04-27 18:48] LABS: Prothrombin Time 10.2 sec (9.0-12.0)
[2017-04-27 18:49] LABS: ALT 34 U/L (21-72); AST 35 U/L (17-59); Alkaline Phosphatase 106 U/L (38-126); Anion Gap 11 mmol/L; Blood Urea Nitrogen 18 mg/dL (9-20); Calcium 9.5 mg/dL (8.4-10.2); Carbon Dioxide 22 mmol/L (22-30); Chloride 103 mmol/L (98-107); Glucose 118 mg/dL (74-99); Non-African American GFR(MDRD) >60 (>60 ml/min/1.73 sqM); Sodium 136 mmol/L (137-145); Total Bilirubin 0.7 mg/dL (0.2-1.3); Total Protein 7.3 g/dL (6.3-8.2)
[2017-04-27 18:50] LABS: Potassium 4.6 mmol/L (3.5-5.1)
--- NOTE | 2017-04-27 18:51 | CT ---
EXAMINATION TYPE: CT brain wo con DATE OF EXAM: 04/27/2017 COMPARISON: 02/26/2017 HISTORY: Left foot numbness and slurred speech. History of stroke. CT DLP: 1159.00 mGycm Automated exposure control for dose reduction was used. FINDINGS: There is some cerebral cortical atrophy. There is patchy hypodensity in the white matter of the right frontal lobe and right internal capsule. There is no mass effect nor midline shift. There is a 8 mm area of hypodensity in the anterior left internal capsule. There is no sign of intracranial hemorrhag e. The calvarium is intact. IMPRESSION: CEREBRAL ATROPHY. OLD BILATERAL LACUNAR INFARCTS IN WORSE ON THE RIGHT SIDE IN THE RIGHT INTERNAL CAP ARACELIS. NO ACUTE INTRACRANIAL ABNORMALITY. NO CHANGE COMPARED TO OLD EXAM.
[2017-04-27 18:53] LABS: Creatine Kinase 67 U/L (55-170)
--- NOTE | 2017-04-27 18:55 | XR ---
EXAMINATION TYPE: XR chest 2V DATE OF EXAM: 04/27/2017 COMPARISON: 02/27/2017 HISTORY: Mental status changes TECHNIQUE: Frontal and lateral views of the chest are obtained. FINDINGS: There is no heart failure nor confluent pneumonic infiltrate. Thoracic aorta is atheromato us. There is no pleural effusion. There are chest leads. The bony thorax is intact. IMPRESSION: No active cardiopulmonary disease. There is clearing of atelectasis at the left lung bas e compared to old exam. Atheromatous aorta.
[2017-04-27 19:04] LABS: Creatine Kinase MB 0.5 ng/mL (0.0-2.4); Troponin I <0.012 ng/mL (0.000-0.034)
[2017-04-27 19:09] LABS: Partial Thromboplastin Time 21.5 sec (22.0-30.0)
[2017-04-27] MEDS ORDERED: DOCUSATE 100 MG CAP PO PRN (21:34)
[2017-04-27] MEDS ORDERED: ALBUTEROL NEBULIZED 2.5 MG/3 ML INHALATION PRN (21:34)
[2017-04-27] MEDS ORDERED: ACETAMINOPHEN TAB 325 MG TAB PO PRN (21:34)
[2017-04-27] MEDS ORDERED: MELATONIN 3 MG TABLET PO SCH (21:45)
[2017-04-27] MEDS ORDERED: ATORVASTATIN 40 MG TAB PO SCH (21:45)
[2017-04-28 02:46] VITALS: BMI 22.1
[2017-04-28 03:33] LABS: Cholesterol 155 mg/dL (<200); HDL Cholesterol 50 mg/dL (40-60); Triglycerides 52 mg/dL (<150)
[2017-04-28] MEDS: PANTOPRAZOLE 40 MG TABLET PO SCH ×2 (06:32→15:26)
[2017-04-28] MEDS ORDERED: NON-FORMULARY DRUG (Glycopyrrolate/Formoterol Fum [Bevespi Aerosphere Inhaler] 1 PUFF) INHALATION SCH (08:00)
[2017-04-28] MEDS ORDERED: BUDESONIDE 0.5 MG/2 ML NEBU INHALATION SCH (08:00)
[2017-04-28 08:44] VITALS: RESP 16
[2017-04-28] MEDS ORDERED: FERROUS SULFATE 325 MG TAB PO SCH (09:00)
[2017-04-28] MEDS ORDERED: ASPIRIN 81 MG CHEW PO SCH ×2 (09:00→21:00)
[2017-04-28] MEDS ORDERED: LOSARTAN 50 MG TAB PO SCH (09:00)
[2017-04-28] MEDS ORDERED: CYANOCOBALAMIN 500 MCG TAB PO SCH (09:00)
[2017-04-28] MEDS ORDERED: amLODIPine 10 MG TAB PO SCH (09:00)
[2017-04-28] MEDS ORDERED: NICOTINE 14MG/24HR PATCH TRANSDERM SCH (09:00)
[2017-04-28] MEDS ORDERED: CHOLECALCIFEROL 1,000 UNIT TAB PO SCH (12:00)
--- NOTE | 2017-04-28 12:23 | P.CNNES ---
History of Present Illness Consult date: 04/28/17 History of Present Illness: The patient is a 66-year-old male with history of previous stroke who was hospitalized in January with left-sided weakness and transferred to [facility]. He was discharged [facility] yesterday. His was at the bedside reports that he was home for less than a few hours and had eaten lunch and when she came to see him sitting on the chair he was slumped over. Also he had some slurred speech and facial droop and his left foot apparently felt heavy. 911 was called and patient was brought to the hospital. His symptoms resolved by the time he was in the hospital. His states his symptoms lasted 15 minutes. She states he 's been feeling well today. He denied any new complaints. He had a CT of the brain in the emergency room which showed no acute abnormalities. Review of Systems Constitutional: Denies chills, Denies fever Ears, nose, mouth and throat: Denies headache, Denies sore throat Cardiovascular: Denies chest pain, Denies shortness of breath Respiratory: Denies cough Musculoskeletal: Reports as per HPI Neurological: Denies numbness, Denies weakness Psychiatric: Denies anxiety, Denies depression Past Medical History Past Medical History: CVA/TIA, GERD/Reflux, Hyperlipidemia, Hypertension, Musculoskeletal Disorder Additional Past Medical History / Comment(s): 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 OCC EDEMA FEET. Current Gastric Ulcer. Stroke on 02/23/17. Peg tube placed which patient's spouse says hasn't been used in a month. History of Any Multi-Drug Resistant Organisms: None Reported Past Surgical History: Hernia Repair, Joint Replacement, Orthopedic Surgery Additional Past Surgical History / Comment(s): RT TOTAL KNEE Past Anesthesia/Blood Transfusion Reactions: No Reported Reaction Past Psychological History: No Psychological Hx Reported Smoking Status: Former smoker Past Alcohol Use History: None Reported Past Drug Use History: None Reported - Past Family History Mother Family Medical History: No Reported History Medications and Allergies Home Medications Medication Instructions Recorded Confirmed Type Atorvastatin [Lipitor] 40 mg PO HS 02/23/17 04/27/17 History Cholecalciferol [Vitamin D3] 1,000 unit PO DAILY 02/23/17 04/27/17 History Cyanocobalamin (Vitamin B-12) 1,000 mcg PO DAILY 02/23/17 04/27/17 History [Vitamin B-12] Glycopyrrolate/Formoterol Fum 1 puff INHALATION RT-BID 02/23/17 04/27/17 History [Bevespi Aerosphere Inhaler] Omeprazole [PriLOSEC] 20 mg PO AC-BID 02/23/17 04/27/17 History amLODIPine BES/OLMESARTAN MED 1 tab PO DAILY 02/23/17 04/27/17 History [amLODIPine BES/OLMESARTAN MED 10-40 mg] Docusate [Colace] 100 mg PO Q8H PRN 04/27/17 04/27/17 History Ferrous Sulfate [Feosol] 325 mg PO DAILY 04/27/17 04/27/17 History Ipratropium-Albuterol Nebulize 3 ml INHALATION RT-TID 04/27/17 04/27/17 History [Duoneb 0.5 mg-3 mg/3 ml Soln] Melatonin 6 mg PO HS 04/27/17 04/27/17 History Nicotine 14Mg/24Hr Patch [Habitrol 1 patch TRANSDERM DAILY 04/27/17 04/27/17 History 14Mg/24Hr Patch] Potassium Chloride [K-Tab ER] 10 meq PO DAILY@1400 04/27/17 04/27/17 History Tamsulosin HCl [Flomax] 0.4 mg PO DAILY@1300 04/27/17 04/27/17 History Allergies Allergy/AdvReac Type Severity Reaction Status Date / Time No Known Allergies Allergy Verified 04/27/17 18:59 Physical Examination - Vital Signs Vital Signs: Vital Signs Temp Pulse Pulse Resp BP BP BP 04/28/17 12:00 98.2 F 75 16 140/79 04/28/17 08:43 97.4 F L 80 16 142/73 04/28/17 08:12 76 04/28/17 07:58 70 04/28/17 04:25 97.4 F L 75 18 125/68 04/28/17 00:00 97.5 F L 98 18 144/86 04/27/17 22:28 98.3 F 83 18 128/76 04/27/17 20:09 98.2 F 92 18 129/73 04/27/17 19:12 97.6 F 99 18 127/66 04/27/17 18:52 100 18 116/63 04/27/17 18:00 98.6 F 101 H 20 124/63 Pulse Ox 04/28/17 12:00 99 04/28/17 08:43 100 04/28/17 08:12 04/28/17 07:58 100 04/28/17 04:25 99 04/28/17 00:00 100 04/27/17 22:28 100 04/27/17 20:09 98 04/27/17 19:12 96 04/27/17 18:52 98 04/27/17 18:00 98 Intake and Output 04/27/17 04/28/17 04/28/17 22:59 06:59 14:59 Other: Voiding Method Urinal Diaper Diaper Diaper # Voids 1 1 Weight 78 kg 78 kg - Constitutional General appearance: average body habitus - EENT EENT: PERRL, hearing intact, vision intact - Respiratory Respiratory: lungs clear - Cardiovascular Cardiovascular: regular rate - Integumentary Integumentary: normal - Neurologic Mental status he was awake alert and oriented his speech was intact Cranial nerve examination: PERRL, EOMI, VFF, tongue midline, facial droop Speech examination: intact ( ) Detailed motor examination: grossly full strength in all extremities - Psychiatric Psychiatric: mood/affect appropriate Results - Laboratory Findings CBC and BMP: 04/27/17 18:22 04/27/17 18:22 Abnormal Lab Findings: Abnormal Labs 04/27/17 04/27/17 04/27/17 18:22 18:22 18:22 RBC 3.21 L Hgb 9.8 L Hct 30.1 L RDW 17.1 H APTT 21.5 L Sodium 136 L Glucose 118 H Assessment and Plan (1) Transient cerebral ischemia Status: Acute Code(s): G45.9 - TRANSIENT CEREBRAL ISCHEMIC ATTACK, UNSPECIFIED (2) History of stroke Status: Chronic Code(s): Z86.73 - PRSNL HX OF TIA (TIA), AND CEREB INFRC W/O RESID DEFICITS Plan: The patient is a 66-year-old man with history of recent stroke involving the right internal capsule with residual left facial droop. He has been at [facility] up until yesterday when he was discharged. His reports that he had a 15 minute episode of slurred speech and was slumped over in a chair and he is brought into the hospital and admitted with possible TIA. His no recurrence of new neurologic symptoms and has been walking in the hallway today. She may have had a TIA versus exacerbation of previous stroke. Recommend follow-up CT brain. Can increase aspirin to 81 mg twice a day if tolerated from GI perspective
[2017-04-28] MEDS ORDERED: TAMSULOSIN 0.4 MG CAP.ER.24H PO SCH (13:00)
[2017-04-28] MEDS ORDERED: POTASSIUM CHLORIDE ER 10 MEQ TAB.ER.PRT PO SCH (14:00)
--- NOTE | 2017-04-28 14:52 | CT ---
EXAMINATION TYPE: CT brain wo con DATE OF EXAM: 04/28/2017 COMPARISON: 04/27/2017 INDICATION: Patient poor historian DLP: 961 mGycm, Automated exposure control for dose reduction was used. CONTRAST: None CT of the brain is performed utilizing 3 mm thick sections through the posterior fossa and 3 mm thick sections through the remaining calvarium. Study is performed within 24 hours of arrival to the hosp ital. No abnormal hyperdensity is present to suggest an acute intracranial hemorrhage. No mass lesion is evident. No acute infarcts are evident. Periventricular confluent white matter hypodensity is present most lik dinh on the basis of chronic white matter ischemic changes. Old lacunar infarcts within the bilateral basal ganglion are likely present. Ventricles and sulci are prominent for the patient age. Paranasal sinuses and mastoid air cells within the [id number] are clear. IMPRESSIONS: 1. Chronic appearing white matter ischemic changes with atrophy.
[2017-04-28 15:17] VITALS: BP 133/72; PULSE 80; TEMP 98.3
--- NOTE | 2017-04-28 15:17 | P.HPIM ---
History of Present Illness The patient is a 66-year-old male with history of previous stroke who was hospitalized in January with left-sided weakness and transferred to [facility]. He was discharged [facility] yesterday. His was at the bedside reports that he was home for less than a few hours and had eaten lunch and when she came to see him sitting on the chair he was slumped over. Also he had some slurred speech and facial droop and his left foot apparently felt heavy. 911 was called and patient was brought to the hospital. His symptoms resolved by the time he was in the hospital. His states his symptoms lasted 15 minutes. She states he 's been feeling well today. He denied any new complaints. He had a CT of the brain in the emergency room which showed no acute abnormalities. Review of Systems REVIEW OF SYSTEMS: CONSTITUTIONAL: No fever, no malaise, no fatigue. HEENT: No recent visual problems or hearing problems. Denied any sore throat. CARDIOVASCULAR: No chest pain, orthopnea, PND, no palpitations, no syncope. PULMONARY: No shortness of breath, no cough, no hemoptysis. GASTROINTESTINAL: No diarrhea, no nausea, no vomiting, no abdominal pain. Normoactive bowel sounds. NEUROLOGICAL: As mentioned in HPI HEMATOLOGICAL: Denies any bleeding or petechiae. GENITOURINARY: Denies any burning micturition, frequency, or urgency. MUSCULOSKELETAL/RHEUMATOLOGICAL: Denies any joint pain, swelling, or any muscle pain. ENDOCRINE: Denies any polyuria or polydipsia. The rest of the 14-point review of systems is negative. 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 OCC EDEMA FEET. Current Gastric Ulcer. Stroke on 02/23/17. Peg tube placed which patient's spouse says hasn't been used in a month. History of Any Multi-Drug Resistant Organisms: None Reported Past Surgical History: Hernia Repair, Joint Replacement, Orthopedic Surgery Additional Past Surgical History / Comment(s): RT TOTAL KNEE Past Anesthesia/Blood Transfusion Reactions: No Reported Reaction Past Psychological History: No Psychological Hx Reported Smoking Status: Former smoker Past Alcohol Use History: None Reported Past Drug Use History: None Reported - Past Family History Mother Family Medical History: No Reported History Medications and Allergies Home Medications Medication Instructions Recorded Confirmed Type Atorvastatin [Lipitor] 40 mg PO HS 02/23/17 04/27/17 History Cholecalciferol [Vitamin D3] 1,000 unit PO DAILY 02/23/17 04/27/17 History Cyanocobalamin (Vitamin B-12) 1,000 mcg PO DAILY 02/23/17 04/27/17 History [Vitamin B-12] Glycopyrrolate/Formoterol Fum 1 puff INHALATION RT-BID 02/23/17 04/27/17 History [Bevespi Aerosphere Inhaler] Omeprazole [PriLOSEC] 20 mg PO AC-BID 02/23/17 04/27/17 History amLODIPine BES/OLMESARTAN MED 1 tab PO DAILY 02/23/17 04/27/17 History [amLODIPine BES/OLMESARTAN MED 10-40 mg] Docusate [Colace] 100 mg PO Q8H PRN 04/27/17 04/27/17 History Ferrous Sulfate [Iron (65 MG 325 mg PO DAILY 04/27/17 04/27/17 History Elemental)] Ipratropium-Albuterol Nebulize 3 ml INHALATION RT-TID 04/27/17 04/27/17 History [Duoneb 0.5 mg-3 mg/3 ml Soln] Melatonin 6 mg PO HS 04/27/17 04/27/17 History Nicotine 14Mg/24Hr Patch [Habitrol] 1 patch TRANSDERM DAILY 04/27/17 04/27/17 History Potassium Chloride [K-Tab ER] 10 meq PO DAILY@1400 04/27/17 04/27/17 History Tamsulosin HCl [Flomax] 0.4 mg PO DAILY@1300 04/27/17 04/27/17 History Allergies Allergy/AdvReac Type Severity Reaction Status Date / Time No Known Allergies Allergy Verified 04/27/17 18:59 Physical Exam Vitals: Vital Signs Temp Pulse Pulse Resp BP BP BP 04/28/17 12:00 98.2 F 75 16 140/79 04/28/17 08:43 97.4 F L 80 16 142/73 04/28/17 08:12 76 04/28/17 07:58 70 04/28/17 04:25 97.4 F L 75 18 125/68 04/28/17 00:00 97.5 F L 98 18 144/86 04/27/17 22:28 98.3 F 83 18 128/76 04/27/17 20:09 98.2 F 92 18 129/73 04/27/17 19:12 97.6 F 99 18 127/66 04/27/17 18:52 100 18 116/63 04/27/17 18:00 98.6 F 101 H 20 124/63 Pulse Ox 04/28/17 12:00 99 04/28/17 08:43 100 04/28/17 08:12 04/28/17 07:58 100 04/28/17 04:25 99 04/28/17 00:00 100 04/27/17 22:28 100 04/27/17 20:09 98 04/27/17 19:12 96 04/27/17 18:52 98 04/27/17 18:00 98 Intake and Output 04/28/17 04/28/17 04/28/17 06:59 14:59 22:59 Intake Total 240 Output Total 400 Balance -160 Intake: Oral 240 Output: Urine 400 Other: Voiding Method Diaper Diaper # Voids 1 1 # Bowel Movements 0 Weight 78 kg PHYSICAL EXAMINATION: GENERAL: The patient is alert and oriented x3, not in any acute distress. Well developed, well nourished. HEENT: Pupils are round and equally reacting to light. EOMI. No scleral icterus. No conjunctival pallor. Normocephalic, atraumatic. No pharyngeal erythema. No thyromegaly. CARDIOVASCULAR: S1 and S2 present. No murmurs, rubs, or gallops. PULMONARY: Chest is clear to auscultation, no wheezing or crackles. ABDOMEN: Soft, nontender, nondistended, normoactive bowel sounds. No palpable organomegaly. MUSCULOSKELETAL: No joint swelling or deformity. EXTREMITIES: No cyanosis, clubbing, or pedal edema. NEUROLOGICAL: Patient does not appear to have any new neurological left shift patient Is to have left-sided facial droop along with left sided weakness which is chronic and old 4 x 5 strength in left upper and lower extremities. SKIN: No rashes. Results CBC & Chem 7: 04/27/17 18:22 04/27/17 18:22 Labs: Abnormal Lab Results - Last 24 Hours (Table) 04/27/17 04/27/17 04/27/17 Range/Units 18:22 18:22 18:22 RBC 3.21 L (4.30-5.90) m/uL Hgb 9.8 L (13.0-17.5) gm/dL Hct 30.1 L (39.0-53.0) % RDW 17.1 H (11.5-15.5) % APTT 21.5 L (22.0-30.0) sec Sodium 136 L (137-145) mmol/L Glucose 118 H (74-99) mg/dL Thrombosis Risk Factor Assmnt - Choose All That Apply Other Risk Factors: Yes Each Risk Factor Represents 2 Points: Age 61-74 years Thrombosis Risk Factor Assessment Total Risk Factor Score: 2 Thrombosis Risk Factor Assessment Level: Low Risk Assessment and Plan Plan: #1 rule out cerebrovascular accident: Patient appears to have bit of worsening previous stroke symptoms, patient is admitted to rule out another TIA 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 He repeat CAT scan again today to see if there are any new ischemic changes on the repeat CT. Patient is already on aspirin 81 mg dose of which is being increased to twice a day and patient is already on statin which will be continued and patient were discharged today and patient will continue his physical therapy at home. #2 hypertension #3 hyperlipidemia #4 osteoarthritis 5 gastroesophageal reflux diseaset For above-mentioned chronic medical problems will continue with his home medications and patient will be discharged today after repeat CAT scan.
--- NOTE | 2017-04-28 15:18 | P.DS ---
Providers Date of admission: 04/27/17 19:25 Attending physician: Ross Null Consults: 04/27/17 19:26 Consult Physician Routine Consulting Provider: Jo Mcghee Consult Reason/Comments: TIA Do you want consulting provider notified?: Yes [facility] and patient will follow Dr. Noah Rivas as an outpatient Plan - Discharge Summary New Discharge Prescriptions: Continue Omeprazole [PriLOSEC] 20 mg PO AC-BID Cholecalciferol [Vitamin D3] 1,000 unit PO DAILY amLODIPine BES/OLMESARTAN MED [amLODIPine BES/OLMESARTAN MED 10-40 mg] 1 tab PO DAILY Cyanocobalamin (Vitamin B-12) [Vitamin B-12] 1,000 mcg PO DAILY Atorvastatin [Lipitor] 40 mg PO HS Glycopyrrolate/Formoterol Fum [Bevespi Aerosphere Inhaler] 1 puff INHALATION RT-BID Acetaminophen Tab [Tylenol] 650 mg PO Q4HR PRN #0 tab PRN Reason: Fever And/ Or Pain Albuterol Nebulized [Ventolin Nebulized] 2.5 mg INHALATION RT-QID PRN #0 nebu PRN Reason: Shortness Of Breath Or Wheezing Budesonide [Pulmicort] 0.5 mg INHALATION RT-BID nebu Docusate [Colace] 100 mg PO Q8H PRN PRN Reason: Constipation Potassium Chloride [K-Tab ER] 10 meq PO DAILY@1400 Nicotine 14Mg/24Hr Patch [Habitrol] 1 patch TRANSDERM DAILY Tamsulosin HCl [Flomax] 0.4 mg PO DAILY@1300 Melatonin 6 mg PO HS Ferrous Sulfate [Iron (65 MG Elemental)] 325 mg PO DAILY Ipratropium-Albuterol Nebulize [Duoneb 0.5 mg-3 mg/3 ml Soln] 3 ml INHALATION RT-TID Changed Aspirin 81 mg PO BID #0 chew Discharge Medication List Atorvastatin [Lipitor] 40 mg PO HS 02/23/17 [History] Cholecalciferol [Vitamin D3] 1,000 unit PO DAILY 02/23/17 [History] Cyanocobalamin (Vitamin B-12) [Vitamin B-12] 1,000 mcg PO DAILY 02/23/17 [ History] Glycopyrrolate/Formoterol Fum [Bevespi Aerosphere Inhaler] 1 puff INHALATION RT- BID 02/23/17 [History] Omeprazole [PriLOSEC] 20 mg PO AC-BID 02/23/17 [History] amLODIPine BES/OLMESARTAN MED [amLODIPine BES/OLMESARTAN MED 10-40 mg] 1 tab PO DAILY 02/23/17 [History] Acetaminophen Tab [Tylenol] 650 mg PO Q4HR PRN #0 tab 03/02/17 [Rx] Albuterol Nebulized [Ventolin Nebulized] 2.5 mg INHALATION RT-QID PRN #0 nebu [Rx] Budesonide [Pulmicort] 0.5 mg INHALATION RT-BID nebu 03/02/17 [Rx] Docusate [Colace] 100 mg PO Q8H PRN 04/27/17 [History] Ferrous Sulfate [Iron (65 MG Elemental)] 325 mg PO DAILY 04/27/17 [History] Ipratropium-Albuterol Nebulize [Duoneb 0.5 mg-3 mg/3 ml Soln] 3 ml INHALATION RT -TID 04/27/17 [History] Melatonin 6 mg PO HS 04/27/17 [History] Nicotine 14Mg/24Hr Patch [Habitrol] 1 patch TRANSDERM DAILY 04/27/17 [History] Potassium Chloride [K-Tab ER] 10 meq PO DAILY@1400 04/27/17 [History] Tamsulosin HCl [Flomax] 0.4 mg PO DAILY@1300 04/27/17 [History] Aspirin 81 mg PO BID #0 chew 04/28/17 [Rx] Follow up Appointment(s)/Referral(s): Noah Rivas MD [STAFF PHYSICIAN] - 3 Days
== END 2017-04-28 18:25 | disposition home or self-care (01) | DRG 69 ==
LOC: EC 17:57 → 6SEL 19:25
PROVIDERS: ADMIT Internal Medicine; ATTEND Internal Medicine
DX: G45.9 Transient cerebral ischemic attack, unspecified (principal); I10 Essential (primary) hypertension; E78.5 Hyperlipidemia, unspecified; K21.9 Gastro-esophageal reflux disease without esophagitis; M19.90 Unspecified osteoarthritis, unspecified site; Z79.82 Long term (current) use of aspirin; Z79.899 Other long term (current) drug therapy; Z86.73 Personal history of transient ischemic attack (TIA), and cerebral infarction without residual deficits; Z87.891 Personal history of nicotine dependence; Z96.651 Presence of right artificial knee joint
CPT/HCPCS: 36415; 70450; 71020; 80053; 80061; 82550; 82553; 84484; 85025; 85610; 85730; 93005; 94640; 94760; 99285

== ENCOUNTER 2017-04-28 23:07 | Inpatient (IN) | payer MEDICARE, BC ==
[2017-04-28 23:11] LABS: Glucose,Whole Blood 127 mg/dL (75-99)
[2017-04-28] MEDS ORDERED: RX INFO: IV CONTRAST WAS GIVEN 1 EACH MISC MISCELLANE PRN (23:18)
[2017-04-28] MEDS ORDERED: SODIUM CHLORIDE 0.9% 1,000 ML IV STA (23:18)
--- NOTE | 2017-04-28 23:31 | ED ---
General Adult HPI - General Stated complaint: stroke symptoms Time Seen by Provider: 04/28/17 23:11 Source: patient, RN notes reviewed Mode of arrival: EMS Limitations: altered mental status (Patient is a poor historian) - History of Present Illness Initial comments: Patient is a pleasant 66-year-old male presenting to the emergency department with concerns for left-sided weakness. Patient believes symptoms started just prior to arrival. Patient is a poor historian. Patient does admit to having some nausea. Patient was just discharged from the hospital with TIA diagnosis. - Related Data Home Medications Medication Instructions Recorded Confirmed Atorvastatin [Lipitor] 40 mg PO HS 02/23/17 04/27/17 Cholecalciferol [Vitamin D3] 1,000 unit PO DAILY 02/23/17 04/27/17 Cyanocobalamin (Vitamin B-12) 1,000 mcg PO DAILY 02/23/17 04/27/17 [Vitamin B-12] Glycopyrrolate/Formoterol Fum 1 puff INHALATION RT-BID 02/23/17 04/27/17 [Bevespi Aerosphere Inhaler] Omeprazole [PriLOSEC] 20 mg PO AC-BID 02/23/17 04/27/17 amLODIPine BES/OLMESARTAN MED 1 tab PO DAILY 02/23/17 04/27/17 [amLODIPine BES/OLMESARTAN MED 10-40 mg] Docusate [Colace] 100 mg PO Q8H PRN 04/27/17 04/27/17 Ferrous Sulfate [Iron (65 MG 325 mg PO DAILY 04/27/17 04/27/17 Elemental)] Ipratropium-Albuterol Nebulize 3 ml INHALATION RT-TID 04/27/17 04/27/17 [Duoneb 0.5 mg-3 mg/3 ml Soln] Melatonin 6 mg PO HS 04/27/17 04/27/17 Nicotine 14Mg/24Hr Patch [Habitrol] 1 patch TRANSDERM DAILY 04/27/17 04/27/17 Potassium Chloride [K-Tab ER] 10 meq PO DAILY@1400 04/27/17 04/27/17 Tamsulosin HCl [Flomax] 0.4 mg PO DAILY@1300 04/27/17 04/27/17 Previous Rx's Medication Instructions Recorded Acetaminophen Tab [Tylenol] 650 mg PO Q4HR PRN #0 tab 03/02/17 Albuterol Nebulized [Ventolin 2.5 mg INHALATION RT-QID PRN #0 03/02/17 Nebulized] nebu Budesonide [Pulmicort] 0.5 mg INHALATION RT-BID nebu 03/02/17 Aspirin 81 mg PO BID #0 chew 04/28/17 Allergies Allergy/AdvReac Type Severity Reaction Status Date / Time No Known Allergies Allergy Verified 04/27/17 18:59 Review of Systems ROS Statement: Those systems with pertinent positive or pertinent negative responses have been documented in the HPI. ROS Other: All systems not noted in ROS Statement are negative. Constitutional: Denies: fever Eyes: Denies: eye pain ENT: Denies: ear pain Respiratory: Denies: cough Cardiovascular: Denies: chest pain Endocrine: Denies: fatigue Gastrointestinal: Reports: nausea Genitourinary: Denies: dysuria Musculoskeletal: Denies: back pain Skin: Denies: rash Neurological: Reports: weakness. 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 OCC EDEMA FEET. Current Gastric Ulcer. Stroke on 02/23/17. Peg tube placed which patient's spouse says hasn't been used in a month. History of Any Multi-Drug Resistant Organisms: None Reported Past Surgical History: Hernia Repair, Joint Replacement, Orthopedic Surgery Additional Past Surgical History / Comment(s): RT TOTAL KNEE Past Anesthesia/Blood Transfusion Reactions: No Reported Reaction Past Psychological History: No Psychological Hx Reported Smoking Status: Former smoker Past Alcohol Use History: None Reported Past Drug Use History: None Reported - Past Family History Mother Family Medical History: No Reported History General Exam Limitations: no limitations General appearance: alert, in no apparent distress Head exam: Present: atraumatic Eye exam: Present: normal appearance, PERRL ENT exam: Present: normal oropharynx Neck exam: Present: normal inspection. Absent: tenderness Respiratory exam: Present: normal lung sounds bilaterally Cardiovascular Exam: Present: regular rate, normal rhythm GI/Abdominal exam: Present: soft. Absent: tenderness Extremities exam: Present: normal inspection Neurological exam: Present: alert, altered, oriented X3, motor sensory deficit Expanded Neurological exam: Present: other (Left facial droop is present) Cranial nerves: EOM's Intact: Normal, Facial Sensation: Normal Cerebellar function: Finger to Nose: Abnormal Left Sensory exam: Upper Extremity Light Touch: Normal, Lower Extremity Light Touch: Normal Motor strength exam: RUE: 5, LUE: 3, RLE: 5, LLE: 3 Eye Response: (4) open spontaneously Motor Response: (6) obeys commands Verbal Response: (4) confused conversation Psychiatric exam: Present: normal affect, normal mood Skin exam: Present: normal color Course - Reevaluation(s) Reevaluation #1: 04/28/17 23:31 is now present and further history was taken. She states patient did have a stroke February 23 and has some chronic left-sided deficits however this is definitely worse and patient seems more confused. She states onset was around 1045 or 1050. She was with him and they were both weak at onset. Patient was just discharged today for TIA symptoms. was fully explained risks and benefits of TPA. At this point with CVA within 3 months patient is felt to be unlikely a good candidate for TPA. also has concerns regarding history of stomach ulcer and is very concerned regarding possible TPA risks. EKG Findings - EKG Comments: EKG Findings:: Normal sinus rhythm 90. ID 160. QRS 90. QT 370. QTc 452. Normal axis. Normal QRS. Normal ST-T. Medical Decision Making - Medical Decision Making Patient reexamined and does have slight improvement of strength of left arm and left leg. Patient was evaluated by neuro interventionalist who did not feel patient was candidate for TPA. At discussion between him and last known well was determined to be 7 PM. He did not feel patient was candidate because he is not in the window. is happy with this decision. She appears to be the one most capable of making medical decisions at this time. Case was discussed with Dr. Church, who will admit for Dr. Luke. - Lab Data Result diagrams: 04/28/17 23:19 04/28/17 23:19 Lab Results 04/28/17 04/28/17 04/28/17 Range/Units 23:10 23:19 23:19 WBC 9.0 (3.8-10.6) k/uL RBC 3.11 L (4.30-5.90) m/uL Hgb 9.5 L (13.0-17.5) gm/dL Hct 29.0 L (39.0-53.0) % MCV 93.2 (80.0-100.0) fL MCH 30.7 (25.0-35.0) pg MCHC 32.9 (31.0-37.0) g/dL RDW 17.1 H (11.5-15.5) % Plt Count 365 (150-450) k/uL Neutrophils % 59 % Lymphocytes % 29 % Monocytes % 6 % Eosinophils % 3 % Basophils % 1 % Neutrophils # 5.3 (1.3-7.7) k/uL Lymphocytes # 2.6 (1.0-4.8) k/uL Monocytes # 0.6 (0-1.0) k/uL Eosinophils # 0.2 (0-0.7) k/uL Basophils # 0.0 (0-0.2) k/uL Anisocytosis Slight PT (9.0-12.0) sec INR (<1.1) APTT (22.0-30.0) sec Sodium 140 (137-145) mmol/L Potassium 3.8 (3.5-5.1) mmol/L Chloride 107 (98-107) mmol/L Carbon Dioxide 24 (22-30) mmol/L Anion Gap 9 mmol/L BUN 17 (9-20) mg/dL Creatinine 1.30 H (0.66-1.25) mg/dL Est GFR (MDRD) Af Amer >60 (>60 ml/min/1.73 sqM) Est GFR (MDRD) Non-Af 55 (>60 ml/min/1.73 sqM) Glucose 119 H (74-99) mg/dL POC Glucose (mg/dL) 127 H (75-99) mg/dL POC Glu [employer] Platform Supervisor ID Geri Ogden Calcium 9.7 (8.4-10.2) mg/dL Total Bilirubin 0.3 (0.2-1.3) mg/dL AST 19 (17-59) U/L ALT 37 (21-72) U/L Alkaline Phosphatase 115 (38-126) U/L Total Creatine Kinase (55-170) U/L CK-MB (CK-2) (0.0-2.4) ng/mL CK-MB (CK-2) Rel Index Troponin I (0.000-0.034) ng/mL Total Protein 6.4 (6.3-8.2) g/dL Albumin 3.4 L (3.5-5.0) g/dL 04/28/17 04/28/17 Range/Units 23:19 23:19 WBC (3.8-10.6) k/uL RBC (4.30-5.90) m/uL Hgb (13.0-17.5) gm/dL Hct (39.0-53.0) % MCV (80.0-100.0) fL MCH (25.0-35.0) pg MCHC (31.0-37.0) g/dL RDW (11.5-15.5) % Plt Count (150-450) k/uL Neutrophils % % Lymphocytes % % Monocytes % % Eosinophils % % Basophils % % Neutrophils # (1.3-7.7) k/uL Lymphocytes # (1.0-4.8) k/uL Monocytes # (0-1.0) k/uL Eosinophils # (0-0.7) k/uL Basophils # (0-0.2) k/uL Anisocytosis PT 9.9 (9.0-12.0) sec INR 1.0 (<1.1) APTT 25.5 (22.0-30.0) sec Sodium (137-145) mmol/L Potassium (3.5-5.1) mmol/L Chloride (98-107) mmol/L Carbon Dioxide (22-30) mmol/L Anion Gap mmol/L BUN (9-20) mg/dL Creatinine (0.66-1.25) mg/dL Est GFR (MDRD) Af Amer (>60 ml/min/1.73 sqM) Est GFR (MDRD) Non-Af (>60 ml/min/1.73 sqM) Glucose (74-99) mg/dL POC Glucose (mg/dL) (75-99) mg/dL POC Glu Ice Platform Supervisor ID Calcium (8.4-10.2) mg/dL Total Bilirubin (0.2-1.3) mg/dL AST (17-59) U/L ALT (21-72) U/L Alkaline Phosphatase (38-126) U/L Total Creatine Kinase 62 (55-170) U/L CK-MB (CK-2) 0.6 (0.0-2.4) ng/mL CK-MB (CK-2) Rel Index 1.0 Troponin I <0.012 (0.000-0.034) ng/mL Total Protein (6.3-8.2) g/dL Albumin (3.5-5.0) g/dL - Radiology Data Radiology results: image reviewed (Chest x-ray shows no acute process. Computed tomography scan of the brain shows no acute intercranial abnormality. Cerebral atrophy and chronic white matter ischemic changes. Chronic bilateral lacunar infarcts.) Disposition Clinical Impression: Cerebrovascular accident Disposition: ADMITTED IP TO THIS HOSP Referrals: Rick Luke MD [Primary Care Provider] - 1-2 days Decision Time: 00:34
[2017-04-28 23:43] LABS: Anisocytosis Slight; Basophils % (A) 1 %; CH 30.9; CHCM 33.3; Eosinophils # (A) 0.2 k/uL (0-0.7); Eosinophils % (A) 3 %; HDW 2.81; HGB 9.5 gm/dL (13.0-17.5); Luc # (Auto) 0.27; Luc % (Auto) 3; Lymphocytes # (A) 2.6 k/uL (1.0-4.8); Lymphocytes % (A) 29 %; MCH 30.7 pg (25.0-35.0); MCHC 32.9 g/dL (31.0-37.0); MCV 93.2 fL (80.0-100.0); Mean Platelet Volume 6.9; Monocytes # (A) 0.6 k/uL (0-1.0); Monocytes % (A) 6 %; Neutrophils # (A) 5.3 k/uL (1.3-7.7); Neutrophils % (A) 59 %; RBC 3.11 m/uL (4.30-5.90); RDW 17.1 % (11.5-15.5); WBC (Perox) 9.05
--- NOTE | 2017-04-28 23:51 | XR ---
EXAM: XR Chest, 1 View CLINICAL HISTORY: Reason: altered mental status TECHNIQUE: Frontal view of the chest. COMPARISON: Chest radiograph 04/27/2017 FINDINGS: Lungs: Lungs are clear. Pleural space: No evidence of pleural effusion or pneumothorax. Heart: Heart size is within normal limits. Mediastinum: Mediastinal structures are unremarkable. Bones/joints: Imaged bony thorax is unremarkable. Vasculature: Thoracic aorta is elongated. Other findings: No significant change since 04/27/2017. IMPRESSION: No evidence of acute cardiopulmonary disease.
[2017-04-28 23:52] LABS: ALT 37 U/L (21-72); AST 19 U/L (17-59); Alkaline Phosphatase 115 U/L (38-126); Anion Gap 9 mmol/L; Blood Urea Nitrogen 17 mg/dL (9-20); Calcium 9.7 mg/dL (8.4-10.2); Carbon Dioxide 24 mmol/L (22-30); Chloride 107 mmol/L (98-107); Glucose 119 mg/dL (74-99); Non-African American GFR(MDRD) 55 (>60 ml/min/1.73 sqM); Potassium 3.8 mmol/L (3.5-5.1); Sodium 140 mmol/L (137-145); Total Bilirubin 0.3 mg/dL (0.2-1.3); Total Protein 6.4 g/dL (6.3-8.2)
[2017-04-28 23:58] LABS: Partial Thromboplastin Time 25.5 sec (22.0-30.0); Prothrombin Time 9.9 sec (9.0-12.0)
[2017-04-29 00:01] LABS: Creatine Kinase 62 U/L (55-170)
--- NOTE | 2017-04-29 00:10 | CT ---
EXAM: CT Head Without Intravenous Contrast CLINICAL HISTORY: Reason: Neuro Deficits TECHNIQUE: Axial computed tomography images of the head/brain without intravenous contrast. CTDI is 57.4 mGy and DLP is 1029.9 mGy-cm. This CT exam was performed using one or more of the following dose reduction techniques: automated exposure control, adjustment of the mA and/or kV according to patient size, and/or use of iterative reconstruction technique. COMPARISON: CT head 04/27/2017 FINDINGS: Brain: Cerebral atrophy. Ventricles are of normal configuration without mass effect or midline shift. Chronic white matter ischemic changes. Chronic bilateral lacunar infarctions involving basal ganglia, caudate head and white matter bilaterally. No evidence of acute cerebral infarction or intracranial hemorrhage. No abnormal extra-axial collections. Ventricles: See above. Bones/joints: No evidence of skull fracture. Sinuses: Retained mucous secretions in right sphenoid sinus and probable left sphenoid mucous retention cyst. Paranasal sinuses are otherwise clear. Hypoplastic left frontal sinus. Mastoid air cells: Mastoid sinuses are clear bilaterally. IMPRESSION: Cerebral atrophy and chronic white matter ischemic changes. Chronic bilateral lacunar infarctions. No evidence of acute intracranial abnormality.
[2017-04-29 00:14] LABS: Creatine Kinase MB 0.6 ng/mL (0.0-2.4); Troponin I <0.012 ng/mL (0.000-0.034)
--- NOTE | 2017-04-29 00:43 | CT ---
EXAM: CTA Head With Intravenous Contrast CLINICAL HISTORY: Reason: Neuro Deficits TECHNIQUE: Axial computed tomography images of the head with intravenous contrast during the arterial phase of enhancement. CTDI is 167.7 mGy and DLP is 284.2 mGy-cm. This CT exam was performed using one or more of the following dose reduction techniques: automated exposure control, adjustment of the mA and/or kV according to patient size, and/or use of iterative reconstruction technique. Coronal and sagittal reformatted images were created and reviewed. COMPARISON: CT brain 04/28/2017. FINDINGS: Right internal carotid artery: No acute findings. Intracranial segment is patent with no significant stenosis. No aneurysm. Right anterior cerebral artery: Unremarkable. No occlusion or significant stenosis. No aneurysm. Right middle cerebral artery: Unremarkable. No occlusion or significant stenosis. No aneurysm. Right posterior cerebral artery: Unremarkable. No occlusion or significant stenosis. No aneurysm. Right vertebral artery: Unremarkable as visualized. Left internal carotid artery: No acute findings. Intracranial segment is patent with no significant stenosis. No aneurysm. Left anterior cerebral artery: Unremarkable. No occlusion or significant stenosis. No aneurysm. Left middle cerebral artery: Unremarkable. No occlusion or significant stenosis. No aneurysm. Left posterior cerebral artery: Unremarkable. No occlusion or significant stenosis. No aneurysm. Left vertebral artery: Unremarkable as visualized. Basilar artery: Unremarkable. No occlusion or significant stenosis. No aneurysm. IMPRESSION: No evidence of any significant arterial stenosis or major arterial occlusion. EXAM: CTA Neck With Intravenous Contrast CLINICAL HISTORY: Reason: Neuro Deficits TECHNIQUE: Axial computed tomography images of the neck with intravenous contrast during the arterial phase of contrast enhancement. CTDI is 167.7 mGy and DLP is 284.2 mGy-cm. This CT exam was performed using one or more of the following dose reduction techniques: automated exposure control, adjustment of the mA and/or kV according to patient size, and/or use of iterative reconstruction technique. Coronal and sagittal reformatted images were created and reviewed. COMPARISON: CT brain 04/28/2017 FINDINGS: Limitation: Metallic artifact emanating from dental hardware VASCULATURE: Right common carotid artery: Unremarkable. No significant stenosis. No dissection or occlusion. Right internal carotid artery: Unremarkable. Extracranial segment is patent with no significant stenosis. No dissection or occlusion. Right external carotid artery: Unremarkable. No occlusion. Right vertebral artery: Unremarkable. No significant stenosis. No dissection or occlusion. Left common carotid artery: Mild calcific atherosclerotic plaque involves left common carotid bifurcation. No significant stenosis. No dissection or occlusion. Left internal carotid artery: Unremarkable. Extracranial segment is patent with no significant stenosis. No dissection or occlusion. Left external carotid artery: Unremarkable. No occlusion. Left vertebral artery: Unremarkable. No significant stenosis. No dissection or occlusion. CAROTID STENOSIS REFERENCE USING NASCET CRITERIA: % ICA stenosis = (1 - narrowest ICA diameter/diameter of distal cervical ICA) x 100. Mild - <50% stenosis. Moderate - 50-69% stenosis. Severe - 70-94% stenosis. Near occlusion - 95-99% stenosis. Occluded - 100% stenosis. IMPRESSION: No significant carotid arterial stenosis or occlusion. Vertebral arteries are patent bilaterally without any significant stenosis or occlusion.
[2017-04-29] MEDS: ASPIRIN 325 MG TAB PO STA ×2 (01:26→01:27)
[2017-04-29] MEDS ORDERED: ASPIRIN 325 MG TAB PEG/G-TUBE STA (01:28)
[2017-04-29 02:56] VITALS: BMI 21.9
[2017-04-29] MEDS: SODIUM CHLORIDE 0.9% 1,000 ML IV SCH ×3 (07:21→20:53)
[2017-04-29 07:22] LABS: Anisocytosis Slight; Basophils % (A) 1 %; CH 30.6; CHCM 32.4; Eosinophils % (A) 0 %; HCT 29.6 % (39.0-53.0); HDW 2.71; HGB 9.4 gm/dL (13.0-17.5); Luc # (Auto) 0.14; Luc % (Auto) 2; Lymphocytes # (A) 1.6 k/uL (1.0-4.8); Lymphocytes % (A) 19 %; MCH 29.9 pg (25.0-35.0); MCHC 31.6 g/dL (31.0-37.0); MCV 94.6 fL (80.0-100.0); Mean Platelet Volume 6.7; Monocytes # (A) 0.3 k/uL (0-1.0); Monocytes % (A) 3 %; Neutrophils # (A) 6.2 k/uL (1.3-7.7); Neutrophils % (A) 75 %; RBC 3.13 m/uL (4.30-5.90); WBC 8.3 k/uL (3.8-10.6); WBC (Perox) 8.89
[2017-04-29 07:23] LABS: Prothrombin Time 10.2 sec (9.0-12.0)
[2017-04-29 07:38] LABS: ALT 23 U/L (21-72); AST 17 U/L (17-59); Alkaline Phosphatase 118 U/L (38-126); Anion Gap 11 mmol/L; Blood Urea Nitrogen 15 mg/dL (9-20); Calcium 9.5 mg/dL (8.4-10.2); Carbon Dioxide 23 mmol/L (22-30); Chloride 105 mmol/L (98-107); Glucose 126 mg/dL (74-99); Non-African American GFR(MDRD) >60 (>60 ml/min/1.73 sqM); Sodium 139 mmol/L (137-145); Total Bilirubin 0.5 mg/dL (0.2-1.3); Total Protein 6.7 g/dL (6.3-8.2)
[2017-04-29] MEDS: ASPIRIN 81 MG CHEW PO SCH ×2 (10:11→20:53)
[2017-04-29] MEDS ORDERED: ALBUTEROL NEBULIZED 2.5 MG/3 ML INHALATION PRN (10:32)
[2017-04-29] MEDS ORDERED: DOCUSATE 100 MG CAP PO PRN (10:32)
[2017-04-29] MEDS ORDERED: ACETAMINOPHEN TAB 325 MG TAB PO PRN (10:32)
--- NOTE | 2017-04-29 12:02 | P.CNNES ---
History of Present Illness Consult date: 04/29/17 Reason for Consult: Patient admitted with left-sided weakness and TIA. History of Present Illness: This patient is a 66-year-old right-handed -[place] male who was just discharged from hospital yesterday with symptoms of TIA. The patient apparently went home and was at home resting comfortably in his chair when he developed weakness on his left side. He was also having difficulty getting his words out. Apparently he was slightly aphasic. He has a history of having suffered a stroke in January 2017. He has had some recurrent deficits off-and- on. As noted he was just discharged yesterday with similar TIA symptoms. The patient was brought into the emergency room yesterday and was seen in the ER by Dr. Helton. The interventional neurologist was contacted via the robot and they deemed him not a candidate for TPA. He was not in the therapeutic window. He was sent for a computed tomography scan of the brain which revealed cerebral atrophy and chronic white matter ischemic changes. Chronic bilateral lacunar infarcts were noted. Patient also underwent CTA of the head and neck. This study also came back negative for any significant arterial stenosis. We reviewed all of these test results in detail today with the patient. He states he is feeling better in his left arm strength has come back to baseline. He was recommended to use baby aspirin 81 mg twice a day of discharge yesterday. He does have a history of ulcer and should be closely monitored for GI bleeding. His hemoglobin today is 9.4. Patient states that his entire episode came on suddenly and resolved fairly quickly. In the ER to the was informed that he was not a TPA candidate and she was happy that she was concerned of possible side effects. The patient states he is feeling better today. We are recommending for him to have a MRI of the brain to rule out possibility of small lacunar infarct. His overall prognosis at this time remains very guarded. Review of Systems Constitutional: Denies chills, Denies fever Eyes: denies blurred vision, denies pain Ears, nose, mouth and throat: Denies headache, Denies sore throat Cardiovascular: Denies chest pain, Denies shortness of breath Respiratory: Denies cough Gastrointestinal: Denies abdominal pain, Denies diarrhea, Denies nausea, Denies vomiting Musculoskeletal: Denies myalgias Integumentary: Denies pruritus, Denies rash Neurological: Reports change in speech, Reports confusion, Reports lack of coordination, Reports motor disturbance, Reports paresthesias, Reports transient paralysis, Denies numbness, Denies weakness Psychiatric: Denies anxiety, Denies depression Endocrine: Denies fatigue, Denies weight change Past Medical History Past Medical History: CVA/TIA, GERD/Reflux, Hyperlipidemia, Hypertension, Musculoskeletal Disorder Additional Past Medical History / Comment(s): 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 OCC EDEMA FEET. Current Gastric Ulcer. Stroke on 02/23/17. Peg tube placed which patient's spouse says hasn't been used in a month. History of Any Multi-Drug Resistant Organisms: None Reported Past Surgical History: Hernia Repair, Joint Replacement, Orthopedic Surgery Additional Past Surgical History / Comment(s): RT TOTAL KNEE Past Anesthesia/Blood Transfusion Reactions: No Reported Reaction Past Psychological History: No Psychological Hx Reported Smoking Status: Former smoker Past Alcohol Use History: None Reported Past Drug Use History: None Reported - Past Family History Mother Family Medical History: No Reported History Medications and Allergies Home Medications Medication Instructions Recorded Confirmed Type Atorvastatin [Lipitor] 40 mg PO HS 02/23/17 04/29/17 History Cholecalciferol [Vitamin D3] 1,000 unit PO DAILY 02/23/17 04/29/17 History Cyanocobalamin (Vitamin B-12) 1,000 mcg PO DAILY 02/23/17 04/29/17 History [Vitamin B-12] Glycopyrrolate/Formoterol Fum 1 puff INHALATION RT-BID 02/23/17 04/29/17 History [Bevespi Aerosphere Inhaler] Omeprazole [PriLOSEC] 20 mg PO AC-BID 02/23/17 04/29/17 History amLODIPine BES/OLMESARTAN MED 1 tab PO DAILY 02/23/17 04/29/17 History [amLODIPine BES/OLMESARTAN MED 10-40 mg] Docusate [Colace] 100 mg PO Q8H PRN 04/27/17 04/29/17 History Ferrous Sulfate [Iron (65 MG 325 mg PO DAILY 04/27/17 04/29/17 History Elemental)] Ipratropium-Albuterol Nebulize 3 ml INHALATION RT-TID 04/27/17 04/29/17 History [Duoneb 0.5 mg-3 mg/3 ml Soln] Melatonin 6 mg PO HS 04/27/17 04/29/17 History Nicotine 14Mg/24Hr Patch [Habitrol] 1 patch TRANSDERM DAILY 04/27/17 04/29/17 History Potassium Chloride [K-Tab ER] 10 meq PO DAILY@1400 04/27/17 04/29/17 History Tamsulosin HCl [Flomax] 0.4 mg PO DAILY@1300 04/27/17 04/29/17 History Allergies Allergy/AdvReac Type Severity Reaction Status Date / Time No Known Allergies Allergy Verified 04/29/17 10:36 Physical Examination - Vital Signs Vital Signs: Vital Signs Temp Pulse Pulse Resp BP BP BP 04/29/17 08:00 97.9 F 91 16 144/81 04/29/17 04:00 97.2 F L 93 18 117/59 04/29/17 02:05 97.4 F L 95 17 126/64 04/29/17 02:00 97.4 F L 95 17 126/64 04/29/17 01:25 98.1 F 88 18 127/66 04/29/17 00:55 90 18 126/72 04/29/17 00:25 90 16 122/67 04/29/17 00:00 96 18 121/63 04/28/17 23:45 94 20 134/70 04/28/17 23:30 98 18 139/74 04/28/17 23:15 92 18 136/67 Pulse Ox 04/29/17 08:00 99 04/29/17 04:00 98 04/29/17 02:05 98 04/29/17 02:00 98 04/29/17 01:25 99 04/29/17 00:55 99 04/29/17 00:25 99 04/29/17 00:00 100 04/28/17 23:45 99 04/28/17 23:30 99 04/28/17 23:15 100 Intake and Output 04/28/17 04/29/17 04/29/17 22:59 06:59 14:59 Intake Total 800 Balance 800 Intake: IV 800 Sodium Chloride 0.9% 1, 800 000 ml @ 100 mls/hr IV . Q10H [facility] Rx#:[id number] Other: Voiding Method Diaper Diaper # Voids 1 Weight 77.564 kg - Constitutional General appearance: average body habitus, cooperative - EENT EENT: PERRL, mucous membranes moist - Respiratory Respiratory: lungs clear, normal breath sounds - Cardiovascular Cardiovascular: regular rate, normal S1, normal S2 Extremities: no peripheral edema bilaterally - Gastrointestinal Gastrointestinal: normoactive bowel sounds - Integumentary Integumentary: normal - Neurologic Cranial nerve examination: PERRL, EOMI, VFF, V1/V2/V3 grossly intact, face symmetric, tongue midline, intact gag reflex, intact corneal reflex, normal palatal elevation Speech examination: intact Sensorimotor examination: intact Motor examination - right side: 4/5: biceps, triceps, wrist flexion, wrist extension, hedge fund principal, hip flexors, knee extensors, dorsiflexion, toe extension (EHL) , plantarflexion Motor examination - left side: 4/5: biceps, triceps, wrist flexion, wrist extension, hedge fund principal, hip flexors, knee extensors, dorsiflexion, toe extension (EHL) , plantarflexion Detailed sensory examination: intact Reflex and gait examination: intact Reflexes: 1+: ankle, bicep, knee, tricep - Musculoskeletal Musculoskeletal: no pain - Psychiatric Psychiatric: mood/affect appropriate, cooperative Results - Laboratory Findings CBC and BMP: 04/29/17 06:03 04/29/17 06:03 Abnormal Lab Findings: Abnormal Labs 04/28/17 04/28/17 04/28/17 23:10 23:19 23:19 RBC 3.11 L Hgb 9.5 L Hct 29.0 L RDW 17.1 H Creatinine 1.30 H Glucose 119 H POC Glucose (mg/dL) 127 H Albumin 3.4 L 04/29/17 04/29/17 06:03 06:03 RBC 3.13 L Hgb 9.4 L Hct 29.6 L RDW 17.0 H Creatinine Glucose 126 H POC Glucose (mg/dL) Albumin Assessment and Plan (1) TIA (transient ischemic attack) Status: Acute Code(s): G45.9 - TRANSIENT CEREBRAL ISCHEMIC ATTACK, UNSPECIFIED (2) Acute right arterial ischemic stroke, MCA (middle cerebral artery) Status: Acute Code(s): I63.511 - CEREB INFRC D/T UNSP OCCLS OR STENOS OF RIGHT MID CEREB ART (3) Hypertension Status: Acute Code(s): I10 - ESSENTIAL (PRIMARY) HYPERTENSION (4) Peptic ulcer disease Status: Acute Code(s): K27.9 - PEPTIC ULC, SITE UNSP, UNSP AC OR CHR, W/O HEMOR OR PERF (5) History of stroke Status: Chronic Code(s): Z86.73 - PRSNL HX OF TIA (TIA), AND CEREB INFRC W/O RESID DEFICITS Plan: This patient is a 66-year-old right-handed -[place] male who was just discharged from hospital yesterday after undergoing neurological workup for TIA. He was recommended to increase his aspirin dosage to 81 mg twice a day. He was discharged home yesterday in stable condition. After arriving home within 2 hours he had episode of left-sided weakness and speech impairment. He was brought back to the emergency room for further evaluation. He was seen in the ER by Dr. Helton. Neuro interventional his was involved and deemed the patient not a candidate for TPA. was updated of this in the ER by Dr. Helton. She was hesitant to give him TPA regardless. Patient was admitted to the hospital for further evaluation. Computed tomography scan of the brain and CTA angiogram results are as noted above. We have recommended the patient to have a MRI of the brain to rule out possibility of lacunar infarct. Patient is to continue on one baby aspirin 81 mg twice a day. Would recommend physical therapy consultation for the patient. His overall prognosis at this time remains very guarded. We will continue close neurological follow this patient during this admission. Time with Patient: Greater than 30
[2017-04-29] MEDS: IPRATROPIUM-ALBUTEROL 3 ML NEB INHALATION SCH ×2 (12:16→19:38)
[2017-04-29] MEDS: TAMSULOSIN 0.4 MG CAP.ER.24H PO SCH (12:47)
--- NOTE | 2017-04-29 14:08 | P.HPIM ---
History of Present Illness This patient is a 66-year-old right-handed -[place] male who was just discharged from hospital yesterday with symptoms of TIA. The patient apparently went home and was at home resting comfortably in his chair when he developed weakness on his left side. He was also having difficulty getting his words out. Apparently he was slightly aphasic. He has a history of having suffered a stroke in January 2017. He has had some recurrent deficits off-and- on. As noted he was just discharged yesterday with similar TIA symptoms. The patient was brought into the emergency room yesterday and was seen in the ER by Dr. Helton. The interventional neurologist was contacted via the robot and they deemed him not a candidate for TPA. He was not in the therapeutic window. He was sent for a computed tomography scan of the brain which revealed cerebral atrophy and chronic white matter ischemic changes. Chronic bilateral lacunar infarcts were noted. Patient also underwent CTA of the head and neck. This study also came back negative for any significant arterial stenosis. . He states he is feeling better in his left arm strength has come back to baseline. Patient was discharged on baby aspirin 81 mg twice a day of discharge yesterday. He does have a history of ulcer and should be closely monitored for GI bleeding. His hemoglobin today is 9.4. Patient states that his entire episode came on suddenly and resolved fairly quickly. In the ER to the was informed that he was not a TPA candidate and she was happy that she was concerned of possible side effects. The patient states he is feeling better today. Patient will undergo MRI as recorded per neurology. Review of Systems REVIEW OF SYSTEMS: CONSTITUTIONAL: No fever, no malaise, no fatigue. HEENT: No recent visual problems or hearing problems. Denied any sore throat. CARDIOVASCULAR: No chest pain, orthopnea, PND, no palpitations, no syncope. PULMONARY: No shortness of breath, no cough, no hemoptysis. GASTROINTESTINAL: No diarrhea, no nausea, no vomiting, no abdominal pain. Normoactive bowel sounds. NEUROLOGICAL: As described in HPI HEMATOLOGICAL: Denies any bleeding or petechiae. GENITOURINARY: Denies any burning micturition, frequency, or urgency. MUSCULOSKELETAL/RHEUMATOLOGICAL: Denies any joint pain, swelling, or any muscle pain. ENDOCRINE: Denies any polyuria or polydipsia. The rest of the 14-point review of systems is negative. 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 OCC EDEMA FEET. Current Gastric Ulcer. Stroke on 02/23/17. Peg tube placed which patient's spouse says hasn't been used in a month. History of Any Multi-Drug Resistant Organisms: None Reported Past Surgical History: Hernia Repair, Joint Replacement, Orthopedic Surgery Additional Past Surgical History / Comment(s): RT TOTAL KNEE Past Anesthesia/Blood Transfusion Reactions: No Reported Reaction Past Psychological History: No Psychological Hx Reported Smoking Status: Former smoker Past Alcohol Use History: None Reported Past Drug Use History: None Reported - Past Family History Mother Family Medical History: No Reported History Medications and Allergies Home Medications Medication Instructions Recorded Confirmed Type Atorvastatin [Lipitor] 40 mg PO HS 02/23/17 04/29/17 History Cholecalciferol [Vitamin D3] 1,000 unit PO DAILY 02/23/17 04/29/17 History Cyanocobalamin (Vitamin B-12) 1,000 mcg PO DAILY 02/23/17 04/29/17 History [Vitamin B-12] Glycopyrrolate/Formoterol Fum 1 puff INHALATION RT-BID 02/23/17 04/29/17 History [Bevespi Aerosphere Inhaler] Omeprazole [PriLOSEC] 20 mg PO AC-BID 02/23/17 04/29/17 History amLODIPine BES/OLMESARTAN MED 1 tab PO DAILY 02/23/17 04/29/17 History [amLODIPine BES/OLMESARTAN MED 10-40 mg] Docusate [Colace] 100 mg PO Q8H PRN 04/27/17 04/29/17 History Ferrous Sulfate [Iron (65 MG 325 mg PO DAILY 04/27/17 04/29/17 History Elemental)] Ipratropium-Albuterol Nebulize 3 ml INHALATION RT-TID 04/27/17 04/29/17 History [Duoneb 0.5 mg-3 mg/3 ml Soln] Melatonin 6 mg PO HS 04/27/17 04/29/17 History Nicotine 14Mg/24Hr Patch [Habitrol] 1 patch TRANSDERM DAILY 04/27/17 04/29/17 History Potassium Chloride [K-Tab ER] 10 meq PO DAILY@1400 04/27/17 04/29/17 History Tamsulosin HCl [Flomax] 0.4 mg PO DAILY@1300 04/27/17 04/29/17 History Allergies Allergy/AdvReac Type Severity Reaction Status Date / Time No Known Allergies Allergy Verified 04/29/17 10:36 Physical Exam Vitals: Vital Signs Temp Pulse Pulse Resp BP BP BP 04/29/17 12:26 88 04/29/17 12:16 88 04/29/17 12:00 97.1 F L 82 16 151/74 04/29/17 08:00 97.9 F 91 16 144/81 04/29/17 04:00 97.2 F L 93 18 117/59 04/29/17 02:05 97.4 F L 95 17 126/64 04/29/17 02:00 97.4 F L 95 17 126/64 04/29/17 01:25 98.1 F 88 18 127/66 04/29/17 00:55 90 18 126/72 04/29/17 00:25 90 16 122/67 04/29/17 00:00 96 18 121/63 04/28/17 23:45 94 20 134/70 04/28/17 23:30 98 18 139/74 04/28/17 23:15 92 18 136/67 Pulse Ox 04/29/17 12:26 04/29/17 12:16 04/29/17 12:00 99 04/29/17 08:00 99 04/29/17 04:00 98 04/29/17 02:05 98 04/29/17 02:00 98 04/29/17 01:25 99 04/29/17 00:55 99 04/29/17 00:25 99 04/29/17 00:00 100 04/28/17 23:45 99 04/28/17 23:30 99 04/28/17 23:15 100 Intake and Output 04/28/17 04/29/17 04/29/17 22:59 06:59 14:59 Intake Total 800 200 Balance 800 200 Intake: IV 800 Sodium Chloride 0.9% 1, 800 000 ml @ 100 mls/hr IV . Q10H [facility] Rx#:[id number] Oral 200 Other: Voiding Method Diaper Diaper # Voids 1 Weight 77.564 kg PHYSICAL EXAMINATION: GENERAL: The patient is alert and oriented x3, not in any acute distress. Well developed, well nourished. HEENT: Pupils are round and equally reacting to light. EOMI. No scleral icterus. No conjunctival pallor. Normocephalic, atraumatic. No pharyngeal erythema. No thyromegaly. CARDIOVASCULAR: S1 and S2 present. No murmurs, rubs, or gallops. PULMONARY: Chest is clear to auscultation, no wheezing or crackles. ABDOMEN: Soft, nontender, nondistended, normoactive bowel sounds. No palpable organomegaly. MUSCULOSKELETAL: No joint swelling or deformity. EXTREMITIES: No cyanosis, clubbing, or pedal edema. NEUROLOGICAL: Patient does not have any new weakness or new sensory deficit but does have chronic weakness in the left side about 4 x 5 strength in the left upper and lower extremity. SKIN: No rashes. Results CBC & Chem 7: 04/29/17 06:03 04/29/17 06:03 Labs: Abnormal Lab Results - Last 24 Hours (Table) 04/28/17 04/28/17 04/28/17 Range/Units 23:10 23:19 23:19 RBC 3.11 L (4.30-5.90) m/uL Hgb 9.5 L (13.0-17.5) gm/dL Hct 29.0 L (39.0-53.0) % RDW 17.1 H (11.5-15.5) % Creatinine 1.30 H (0.66-1.25) mg/dL Glucose 119 H (74-99) mg/dL POC Glucose (mg/dL) 127 H (75-99) mg/dL Albumin 3.4 L (3.5-5.0) g/dL 04/29/17 04/29/17 Range/Units 06:03 06:03 RBC 3.13 L (4.30-5.90) m/uL Hgb 9.4 L (13.0-17.5) gm/dL Hct 29.6 L (39.0-53.0) % RDW 17.0 H (11.5-15.5) % Creatinine (0.66-1.25) mg/dL Glucose 126 H (74-99) mg/dL POC Glucose (mg/dL) (75-99) mg/dL Albumin (3.5-5.0) g/dL Thrombosis Risk Factor Assmnt - Choose All That Apply Each Risk Factor Represents 2 Points: Age 61-74 years Each Risk Factor Represents 5 Points: Stroke (< 1 month) Thrombosis Risk Factor Assessment Total Risk Factor Score: 7 Thrombosis Risk Factor Assessment Level: High Risk Assessment and Plan Plan: #1 recurrent TIA: Patient patient was readmitted for further evaluation with MRI and patient's current symptoms completely resolved at this point of time and neurologist at morning and MRI. Patient will receive 81 mg twice a day of aspirin patient is already on statin which will be continued. Because of his recurrent TIAs believe it's beneficial for us to leave his blood pressures stay high to prevent any further episodes of TIA or strokes. Patient and family was counseled extensively to check the blood pressure at home. Patient's aneurysm medications were discontinued and patient needed to be started antihypertensive medications only if blood pressure goes up above 160 systolic and about 90 diastolic, considering his recurrent TIAs and a recent stroke. #2 hypertension: Management as mentioned above #3 hyperlipidemia #4 osteoarthritis #5 gastroesophageal reflux disease. Next and patient will followed by Dr. Dexter tomorrow.
[2017-04-29] MEDS: PANTOPRAZOLE 40 MG TABLET PO SCH (17:14)
[2017-04-29] MEDS: BUDESONIDE 0.5 MG/2 ML NEBU INHALATION SCH (19:38)
[2017-04-29] MEDS ORDERED: MELATONIN 3 MG TABLET PO SCH (21:00)
[2017-04-29] MEDS ORDERED: ATORVASTATIN 40 MG TAB PO SCH (21:00)
[2017-04-29] MEDS ORDERED: ASPIRIN 81 MG CHEW PO SCH (21:00)
[2017-04-30 03:14] LABS: Cholesterol 159 mg/dL (<200); HDL Cholesterol 48 mg/dL (40-60); Triglycerides 33 mg/dL (<150)
[2017-04-30] MEDS: SODIUM CHLORIDE 0.9% 1,000 ML IV SCH ×2 (06:42→16:45)
[2017-04-30] MEDS: PANTOPRAZOLE 40 MG TABLET PO SCH ×2 (06:42→17:42)
[2017-04-30] MEDS: BUDESONIDE 0.5 MG/2 ML NEBU INHALATION SCH ×2 (08:05→20:17)
[2017-04-30] MEDS: IPRATROPIUM-ALBUTEROL 3 ML NEB INHALATION SCH ×3 (08:05→20:17)
[2017-04-30] MEDS ORDERED: AMLODIPINE BES PO SCH (09:00)
[2017-04-30] MEDS ORDERED: NICOTINE 14MG/24HR PATCH TRANSDERM SCH (09:00)
[2017-04-30] MEDS ORDERED: OLMESARTAN MED PO SCH (09:00)
[2017-04-30] MEDS ORDERED: ASPIRIN 325 MG TAB PO SCH (09:00)
[2017-04-30] MEDS ORDERED: [UNRECOGNIZED DRUG - OTHER] PO SCH (09:00)
--- NOTE | 2017-04-30 09:29 | MR ---
EXAMINATION TYPE: MR brain wo con DATE OF EXAM: 04/30/2017 COMPARISON: CT brain 04/28/2017, MR brain 02/24/2017 HISTORY: Recurrent TIA and left sided weakness T1-weighted sagittal, T2, FLAIR, and diffusion axial, and T2 coronal coronal views of the brain are s ubmitted. Exam severely limited due to motion artifact. There are 3 focal areas of high signal on diffusion imaging in the periatrial region of the right tem poral lobe measuring less than 5 mm. Also is abnormal signal involving the corpus callosum anteriorly measuring 1 cm.. There is no mass effect. Generalized degenerative changes noted. There are numerous areas as well as confluent areas of abnorm al signal involving the white matter bilaterally which are nonspecific but most typical remote microv ascular ischemia. Area of abnormal signal involving the cerebral peduncle on the right is suggestive of previous ischem ia. Abnormal signal in the basal ganglia bilaterally compatible with previous lacunar infarctions. Va vilma abnormal signal involving the yuko also suggestive of remote ischemia Craniocervical junction maintained. Sella turcica has a normal appearance. No cerebellopontine angle mass. Report called to the patient's nurse. IMPRESSION: 1. Areas of abnormal signal involving the anterior corpus callosum, and right temporal lobe as discus sed above suggestive of acute to subacute ischemia with no significant mass effect. Report telephoned to the patient's nurse. 2. Extensive degenerative change and nonspecific white matter changes most typical remote ischemia. 3. Remote lacunar infarctions involving the basal ganglia. 4. Remote infarction involving the right cerebral peduncle
[2017-04-30] MEDS: ASPIRIN 81 MG CHEW PO SCH (10:23)
[2017-04-30 11:57] LABS: Glucose,Whole Blood 154 mg/dL (75-99)
[2017-04-30] MEDS ORDERED: FERROUS SULFATE 325 MG TAB PO SCH (12:00)
[2017-04-30 13:20] VITALS: RESP 16; TEMP 97.6
--- NOTE | 2017-04-30 13:38 | FL ---
EXAMINATION TYPE: FL barium swallow w video DATE OF EXAM: 04/30/2017 COMPARISON: NONE HISTORY: CVA, PEG tube TECHNIQUE: Fluoroscopy. FINDINGS: Fluoroscopic guidance was provided for the procedure performed in conjunction with the [facility] pathology department. Please see complete report forthcoming from the Speech Pathology departmen t. Various consistencies from thin liquid to solids were administered. No aspiration or penetration was evident. No significant pooling was observed in the vallecula. There is hesitancy of bolus formation. IMPRESSION: 1. Hesitancy. No aspiration or penetration was evident.
[2017-04-30 15:52] VITALS: BP 142/78; PULSE 78
--- NOTE | 2017-04-30 16:36 | P.PN ---
Subjective This patient is a 66-year-old male who is being evaluated for symptoms of recurrent left-sided weakness and possible recurrent TIA and stroke. Patient was admitted to the hospital recently with some episode of left-sided weakness which did resolve. He had just previously been discharged from the hospital a day prior. Yesterday on admission nursing staff went over his medication list and found that he was taking wrong medications. Apparently when he was discharged from the shelter he was given a different patient's medications. This was checked by the nursing staff yesterday and the nurse and did clarify this with the patient's at bedside yesterday evening. Hopefully he has now changed to his regular medications. He has been having symptoms of recurrent left-sided weakness on admission. Patient was recommended to undergo an MRI of the brain for further evaluation today. Patient completed MRI this afternoon and it was reviewed. MRI reveals areas of abnormal signal involving the right temporal lobe as well as the right corpus callosum area. This was read as suggesting acute to subacute ischemia. These findings are suggesting of multiple areas of vascular territory to the brain bringing up the question of possible cardioembolic stroke. We have recommended a cardiology consultation for possible YESICA procedure for this patient. Multiple old lacunar infarcts were noted as reported in the MRI report. Patient also underwent a barium swallow study which he passed as there was no evidence for aspiration. The results of the MRI of the brain and swallow study was discussed today at length with the patient as well as his who is at bedside. We did recommend possible YESICA procedure for the patient but he has had this procedure done in February which was negative. We are still unclear as to the etiology of his multiple strokes. We have recommended that the patient be considered for further evaluation at a tertiary center for stroke evaluation. The is in full agreement. We will try to recommend the patient to be seen in the stroke unit at [facility] for further management. His overall prognosis at this time remains guarded. is aware of all of his current test results. We recommend that she keep a close watch of his medications once he returns home. Apparently there was a mistake on some of his medications at the shelter. She is now much more aware and will be monitoring this much more closely. We have recommended and discussed this case today with the and Dr. Dexter and he will make arrangements for this patient's transfers soon as possible. Patient is resting comfortably. We will continue close neurological follow-up for him during this admission. Objective - Vital Signs Vital signs: Vital Signs Temp 98.1 F 04/29/17 20:00 Pulse 70 04/30/17 12:00 Resp 18 04/30/17 12:00 BP 110/58 04/30/17 12:00 Pulse Ox 98 04/30/17 08:05 Intake & Output 04/29/17 04/30/17 04/30/17 18:59 06:59 18:59 Intake Total 523 269 9590 Balance 181 808 8672 Weight 80.5 kg Intake: IV 400 1200 Sodium Chloride 0.9% 1, 400 1200 000 ml @ 100 mls/hr IV . Q10H [facility] Rx#:[id number] Oral 200 90 Other: Voiding Method Diaper Diaper Diaper # Voids 1 1 1 - Exam Physical examination: PHYSICAL EXAMINATION: Patient is resting comfortably in bed. VITAL SIGNS: Blood pressure is [154/85]. Heart rate is [86]. Respiration is [16] . Temperature is [97.7]. HEENT: Head is atraumatic, neck is supple, there were no carotid bruits. CHEST: Lungs are clear to auscultation and percussion. CARDIAC: S1, S2 normal rate and rhythm. There is no murmur. ABDOMEN: Soft and nontender. Bowel sounds are present. EXTREMITIES: There is no pedal edema. Peripheral pulses are present. Neurological examination: Patient's neurological examination is unchanged from yesterday. Patient shows no evidence of slurred speech today. He has minimal left-sided weakness. - Labs CBC & Chem 7: 04/29/17 06:03 04/29/17 06:03 Labs: Abnormal Lab Results - Last 24 Hours (Table) 04/29/17 04/30/17 Range/Units 06:03 11:54 POC Glucose (mg/dL) 154 H (75-99) mg/dL LDL Cholesterol, Calc 104 H (0-99) mg/dL Assessment and Plan (1) TIA (transient ischemic attack) Status: Acute Code(s): G45.9 - TRANSIENT CEREBRAL ISCHEMIC ATTACK, UNSPECIFIED (2) Acute right arterial ischemic stroke, MCA (middle cerebral artery) Status: Acute Code(s): I63.511 - CEREB INFRC D/T UNSP OCCLS OR STENOS OF RIGHT MID CEREB ART (3) Hypertension Status: Acute Code(s): I10 - ESSENTIAL (PRIMARY) HYPERTENSION (4) Peptic ulcer disease Status: Acute Code(s): K27.9 - PEPTIC ULC, SITE UNSP, UNSP AC OR CHR, W/O HEMOR OR PERF (5) History of stroke Status: Chronic Code(s): Z86.73 - PRSNL HX OF TIA (TIA), AND CEREB INFRC W/O RESID DEFICITS Plan: This patient is a 66-year-old male who underwent MRI of the brain today for further evaluation of recent episodes of TIA versus stroke. His MRI does reveal 3 areas of acute stroke involving the right temporal lobe and right corpus callosum. We did recommend a YESICA procedure to be done by cardiology. Cardiology stated that he had a YESICA procedure done in February 2017 which was negative and do not feel he needs a repeat study. We have discussed all of his MRI findings and swallow study that he did today and passed quite well with the patient and his at bedside. All of the studies were once again reviewed. Due to his multiple strokes over the last several months we have suggested he should be evaluated in the stroke center at [facility]. The was updated on his MRI and swallow study results. She is in full agreement and we will make arrangements to have this patient transferred to the stroke unit at [facility] for further management. His overall prognosis at this time remains very guarded. He should continue to be maintained on one baby aspirin twice a day for secondary stroke prevention until further testing and evaluation is done at [facility]. His overall prognosis at this time remains guarded.
[2017-04-30 17:05] LABS: Glucose,Whole Blood 104 mg/dL (75-99)
--- NOTE | 2017-04-30 17:38 | P.PCN ---
Date of Procedure: 04/30/17 Preoperative Diagnosis: This patient admitted with recurrent left-sided weakness and possible stroke. Postoperative Diagnosis: Procedure(s) Performed: Routine EEG Implants: Indications for Procedure: This patient is a 66-year-old male being evaluated for recurrent left-sided weakness. Patient with possible stroke. Patient has history of multiple old strokes in the past. Operative Findings: Description of Procedure: A routine 21 channel awake digital EEG recording was accomplished utilizing the 10-20 international system with bipolar and referential montages. the background activity in the most alert resting state consists of a low to medium amplitude poorly developed and poorly sustained 6 Hz activity over the posterior head region. This posterior rhythm attenuates minimally to eye opening. There is a small amount of low amplitude 18-20 hertz beta activity seen maximally over the anterior head regions. muscle and movement artifact was observed on a few occasions during the tracing. Hyperventilation was not performed. Photic stimulation at flash frequencies of 2-30 hertz produced a minimal occipital driving response. No epileptiform discharges were seen. Impression: This EEG is moderately abnormal in a diffuse fashion due to slowing of the EEG background. The EEG failed to reveal any focal, lateralized, or epileptiform abnormalities. If clinically indicated a follow-up EEG is recommended. Clinical correlation is recommended. Dino Mcghee M.D.
[2017-04-30] MEDS: TAMSULOSIN 0.4 MG CAP.ER.24H PO SCH (17:42)
--- NOTE | 2017-04-30 18:24 | P.DS ---
Providers Date of admission: 04/29/17 00:35 Expected date of discharge: 04/30/17 Attending physician: Adams Dexter Consults: 04/29/17 00:36 Consult Physician Urgent Consulting Provider: Jo Mcghee Consult Reason/Comments: cva Do you want consulting provider notified?: Yes 04/30/17 10:40 Consult Physician Stat Consulting Provider: Destin Royal Consult Reason/Comments: YESICA-new areas of stroke showing on MRI Do you want consulting provider notified?: Yes [facility]: This patient admitted with recurrent strokes. Patient back in February of this year was admitted with strokes. On 02/24/17 MRI revealed multiple areas of acute stroke bilaterally. On 02/26/17 YESICA was done that did not show any intra-atrial shunt. No thrombus was reported. The patient proceeded to have a PEG tube placed but then his swallowing is improved since then. Patient was then readmitted on 04/28/17. CT angiogram of the brain was unremarkable. And discharged the same day back to the [facility]. Patient was readmitted on the evening of 04/28/17 and MRI of the brain is showing stroke in the anterior corpus callosum and the right temporal lobe, Acute versus subacute. Patient's weakness has been on both sides of midline fluctuating. Patient is tolerating his diet. He did have a modified barium swallow earlier today that was negative for aspiration. Patient did have an EEG that showed diffuse changes and no seizure activity. Based on patient's recurrent and progressive symptoms and findings it was decided after talking to family and Dr. Mcghee the neurologist the patient should be transferred to a higher center for further workup. I spoke to Dr. Reese carter/internal medicine at [facility] and patient being accepted to the stroke unit bed. For further workup. This was discussed with the patient and in detail. Patient's radiological studies and other workup is being sent with the patient Discharge planning more than 35 minutes On examination: Weakness in both the legs power is 4 / 5. Speech is slow. Some facial asymmetry is present. Patient using a walker. Labs: Hemoglobin 9.4 potassium 415 creatinine 1.13 LDL 104 Final diagnosis: -Acute stroke, recurrent and bilateral hemisphere -essential hypertension -Hyperlipidemia -primary osteoarthritis multiple joints - GERD -COPD in an ex-smoker -Code status: Full Transferred to [facility] to stroke unit Accepting physician: Dr. Reese carter Patient's family doctor: Dr.Farooq Luke Patient Condition at Discharge: Stable Plan - Discharge Summary New Discharge Prescriptions: Continue Omeprazole [PriLOSEC] 20 mg PO AC-BID Cholecalciferol [Vitamin D3] 1,000 unit PO DAILY amLODIPine BES/OLMESARTAN MED [amLODIPine BES/OLMESARTAN MED 10-40 mg] 1 tab PO DAILY Cyanocobalamin (Vitamin B-12) [Vitamin B-12] 1,000 mcg PO DAILY Atorvastatin [Lipitor] 40 mg PO HS Glycopyrrolate/Formoterol Fum [Bevespi Aerosphere Inhaler] 1 puff INHALATION RT-BID Acetaminophen Tab [Tylenol] 650 mg PO Q4HR PRN #0 tab PRN Reason: Fever And/ Or Pain Albuterol Nebulized [Ventolin Nebulized] 2.5 mg INHALATION RT-QID PRN #0 nebu PRN Reason: Shortness Of Breath Or Wheezing Budesonide [Pulmicort] 0.5 mg INHALATION RT-BID nebu Docusate [Colace] 100 mg PO Q8H PRN PRN Reason: Constipation Potassium Chloride [K-Tab ER] 10 meq PO DAILY@1400 Nicotine 14Mg/24Hr Patch [Habitrol] 1 patch TRANSDERM DAILY Tamsulosin HCl [Flomax] 0.4 mg PO DAILY@1300 Melatonin 6 mg PO HS Ferrous Sulfate [Iron (65 MG Elemental)] 325 mg PO DAILY Ipratropium-Albuterol Nebulize [Duoneb 0.5 mg-3 mg/3 ml Soln] 3 ml INHALATION RT-TID Aspirin 81 mg PO BID #0 chew Discharge Medication List Atorvastatin [Lipitor] 40 mg PO HS 02/23/17 [History] Cholecalciferol [Vitamin D3] 1,000 unit PO DAILY 02/23/17 [History] Cyanocobalamin (Vitamin B-12) [Vitamin B-12] 1,000 mcg PO DAILY 02/23/17 [ History] Glycopyrrolate/Formoterol Fum [Bevespi Aerosphere Inhaler] 1 puff INHALATION RT- BID 02/23/17 [History] Omeprazole [PriLOSEC] 20 mg PO AC-BID 02/23/17 [History] amLODIPine BES/OLMESARTAN MED [amLODIPine BES/OLMESARTAN MED 10-40 mg] 1 tab PO DAILY 02/23/17 [History] Acetaminophen Tab [Tylenol] 650 mg PO Q4HR PRN #0 tab 03/02/17 [Rx] Albuterol Nebulized [Ventolin Nebulized] 2.5 mg INHALATION RT-QID PRN #0 nebu [Rx] Budesonide [Pulmicort] 0.5 mg INHALATION RT-BID nebu 03/02/17 [Rx] Docusate [Colace] 100 mg PO Q8H PRN 04/27/17 [History] Ferrous Sulfate [Iron (65 MG Elemental)] 325 mg PO DAILY 04/27/17 [History] Ipratropium-Albuterol Nebulize [Duoneb 0.5 mg-3 mg/3 ml Soln] 3 ml INHALATION RT -TID 04/27/17 [History] Melatonin 6 mg PO HS 04/27/17 [History] Nicotine 14Mg/24Hr Patch [Habitrol] 1 patch TRANSDERM DAILY 04/27/17 [History] Potassium Chloride [K-Tab ER] 10 meq PO DAILY@1400 04/27/17 [History] Tamsulosin HCl [Flomax] 0.4 mg PO DAILY@1300 04/27/17 [History] Aspirin 81 mg PO BID #0 chew 04/28/17 [Rx]
== END 2017-04-30 19:45 | disposition short-term general hospital (02) | DRG 66 ==
LOC: EC 23:07 → 6SEL 04-29 00:35
PROVIDERS: ADMIT Hospitalist; ATTEND Hospitalist
PROC: 4A00X4Z Measurement of Central Nervous Electrical Activity, External Approach (ICD-10-PCS; principal; 2017-04-30)
DX: I63.9 Cerebral infarction, unspecified (principal); J44.9 Chronic obstructive pulmonary disease, unspecified; R47.01 Aphasia; I10 Essential (primary) hypertension; E78.5 Hyperlipidemia, unspecified; K21.9 Gastro-esophageal reflux disease without esophagitis; M15.9 Polyosteoarthritis, unspecified; K25.9 Gastric ulcer, unspecified as acute or chronic, without hemorrhage or perforation; Z79.82 Long term (current) use of aspirin; Z79.899 Other long term (current) drug therapy; Z86.73 Personal history of transient ischemic attack (TIA), and cerebral infarction without residual deficits; Z87.891 Personal history of nicotine dependence; Z96.651 Presence of right artificial knee joint; Z93.1 Gastrostomy status
CPT/HCPCS: 36415; 70450; 70496; 70498; 70551; 71010; 74230; 80053; 80061; 82550; 82553; 84484; 85025; 85610; 85730; 93005; 94640; 94760; 95819; 99285

== ENCOUNTER 2017-05-26 17:49 | Inpatient (IN) | payer MEDICARE, BC ==
[2017-05-26] MEDS ORDERED: SODIUM CHLORIDE 0.9% 1,000 ML IV STA (18:20)
--- NOTE | 2017-05-26 18:24 | ED ---
Neuro HPI - General Chief Complaint: Neuro Symptoms/Deficit Stated Complaint: stroke-like symptoms Time Seen by Provider: 05/26/17 18:10 Source: patient, family, RN notes reviewed Mode of arrival: wheelchair Limitations: no limitations - History of Present Illness Is the patient presenting with stroke symptoms?: No Initial Comments: This is a 66-year-old male with a history of TIAs and CVAs who is recently discharged from [facility] in [place] after evaluation for CVA who presents today with the onset about 15 minutes prior to arrival of left foot tingling. He had no new weakness no headache blurry vision nausea vomiting or other symptoms he states after arrival tingling resolved. He does have a history of TIAs and CVA last time he had a TIA he went home shortly thereafter did have a CVA. He had an extensive workup at [facility] which included lumbar puncture with multiple evaluations of the same. The patient did present with copies of her discharge summary as well as copies of the lumbar puncture results which are to be admitted to this hospital's charting. - Related Data Home Medications: Home Medications Medication Instructions Recorded Confirmed Aspirin EC [Ecotrin Low Dose] 81 mg PO QAM 05/26/17 05/26/17 Atorvastatin [Lipitor] 80 mg PO 05/26/17 05/26/17 Budesonide [Pulmicort] 0.5 mg INHALATION RT-BID 05/26/17 05/26/17 Cholecalciferol [Vitamin D3] 1,000 unit PO QAM 05/26/17 05/26/17 Clopidogrel [Plavix] 75 mg PO QAM 05/26/17 05/26/17 Cyanocobalamin (Vitamin B-12) 1,000 mcg PO QAM 05/26/17 05/26/17 [Vitamin B-12] Docusate [Colace] 100 mg PO TID PRN 05/26/17 05/26/17 Glycopyrrolate/Formoterol Fum 1 puff INHALATION RT-BID PRN 05/26/17 05/26/17 [Bevespi Aerosphere Inhaler] Ipratropium-Albuterol Nebulize 3 ml INHALATION RT-TID 05/26/17 05/26/17 [Duoneb 0.5 mg-3 mg/3 ml Soln] Melatonin 6 mg PO HS 05/26/17 05/26/17 Nicotine 14Mg/24Hr Patch [Habitrol 1 patch TRANSDERM DAILY 05/26/17 05/26/17 14Mg/24Hr Patch] Omeprazole 20 mg PO BID 05/26/17 05/26/17 Tamsulosin HCl [Flomax] 0.4 mg PO QAM 05/26/17 05/26/17 amLODIPine [Norvasc] 10 mg PO QAM 05/26/17 05/26/17 Allergies/Adverse Reactions: Allergies Allergy/AdvReac Type Severity Reaction Status Date / Time No Known Allergies Allergy Verified 05/26/17 17:56 Review of Systems ROS Statement: Those systems with pertinent positive or pertinent negative responses have been documented in the HPI. ROS Other: All systems not noted in ROS Statement are negative. General Exam - General Exam Comments Initial Comments: This is a well-developed well-nourished awake alert oriented times 3 male Limitations: no limitations General appearance: alert, in no apparent distress Head exam: Present: atraumatic, normocephalic, normal inspection Eye exam: Present: normal appearance, PERRL, EOMI. Absent: scleral icterus, conjunctival injection, periorbital swelling ENT exam: Present: normal exam, mucous membranes moist Neck exam: Present: normal inspection. Absent: tenderness, meningismus, lymphadenopathy Respiratory exam: Present: normal lung sounds bilaterally. Absent: respiratory distress, wheezes, rales, rhonchi, stridor Cardiovascular Exam: Present: regular rate, normal rhythm, normal heart sounds. Absent: systolic murmur, diastolic murmur, rubs, gallop, clicks GI/Abdominal exam: Present: soft, normal bowel sounds, other (PEG tube is in place). Absent: distended, tenderness, guarding, rebound, rigid Extremities exam: Present: normal inspection, full ROM, normal capillary refill. Absent: tenderness, pedal edema, joint swelling, calf tenderness Back exam: Present: normal inspection Neurological exam: Present: alert, oriented X3, CN II-XII intact Psychiatric exam: Present: normal affect, normal mood Skin exam: Present: warm, dry, intact, normal color. Absent: rash Stroke MDM - Lab Data Result diagrams: 05/26/17 18:14 05/26/17 18:14 Lab Results 05/26/17 05/26/17 05/26/17 Range/Units 18:14 18:14 18:14 WBC 5.9 (3.8-10.6) k/uL RBC 3.40 L (4.30-5.90) m/uL Hgb 10.2 L (13.0-17.5) gm/dL Hct 31.4 L (39.0-53.0) % MCV 92.4 (80.0-100.0) fL MCH 29.9 (25.0-35.0) pg MCHC 32.4 (31.0-37.0) g/dL RDW 17.0 H (11.5-15.5) % Plt Count 336 (150-450) k/uL Neutrophils % 56 % Lymphocytes % 31 % Monocytes % 6 % Eosinophils % 3 % Basophils % 1 % Neutrophils # 3.3 (1.3-7.7) k/uL Lymphocytes # 1.8 (1.0-4.8) k/uL Monocytes # 0.4 (0-1.0) k/uL Eosinophils # 0.2 (0-0.7) k/uL Basophils # 0.0 (0-0.2) k/uL Anisocytosis Slight PT (9.0-12.0) sec INR (<1.2) APTT (22.0-30.0) sec Sodium 138 (137-145) mmol/L Potassium 4.5 (3.5-5.1) mmol/L Chloride 103 (98-107) mmol/L Carbon Dioxide 25 (22-30) mmol/L Anion Gap 10 mmol/L BUN 21 H (9-20) mg/dL Creatinine 1.50 H (0.66-1.25) mg/dL Est GFR (MDRD) Af Amer 57 (>60 ml/min/1.73 sqM) Est GFR (MDRD) Non-Af 47 (>60 ml/min/1.73 sqM) Glucose 87 (74-99) mg/dL Calcium 9.4 (8.4-10.2) mg/dL Total Bilirubin 0.4 (0.2-1.3) mg/dL AST 30 (17-59) U/L ALT 35 (21-72) U/L Alkaline Phosphatase 113 (38-126) U/L Total Creatine Kinase 96 (55-170) U/L CK-MB (CK-2) 0.9 (0.0-2.4) ng/mL CK-MB (CK-2) Rel Index 0.9 Troponin I <0.012 (0.000-0.034) ng/mL Total Protein 7.5 (6.3-8.2) g/dL Albumin 4.0 (3.5-5.0) g/dL 05/26/17 Range/Units 18:14 WBC (3.8-10.6) k/uL RBC (4.30-5.90) m/uL Hgb (13.0-17.5) gm/dL Hct (39.0-53.0) % MCV (80.0-100.0) fL MCH (25.0-35.0) pg MCHC (31.0-37.0) g/dL RDW (11.5-15.5) % Plt Count (150-450) k/uL Neutrophils % % Lymphocytes % % Monocytes % % Eosinophils % % Basophils % % Neutrophils # (1.3-7.7) k/uL Lymphocytes # (1.0-4.8) k/uL Monocytes # (0-1.0) k/uL Eosinophils # (0-0.7) k/uL Basophils # (0-0.2) k/uL Anisocytosis PT 10.3 (9.0-12.0) sec INR 1.0 (<1.2) APTT 26.4 (22.0-30.0) sec Sodium (137-145) mmol/L Potassium (3.5-5.1) mmol/L Chloride (98-107) mmol/L Carbon Dioxide (22-30) mmol/L Anion Gap mmol/L BUN (9-20) mg/dL Creatinine (0.66-1.25) mg/dL Est GFR (MDRD) Af Amer (>60 ml/min/1.73 sqM) Est GFR (MDRD) Non-Af (>60 ml/min/1.73 sqM) Glucose (74-99) mg/dL Calcium (8.4-10.2) mg/dL Total Bilirubin (0.2-1.3) mg/dL AST (17-59) U/L ALT (21-72) U/L Alkaline Phosphatase (38-126) U/L Total Creatine Kinase (55-170) U/L CK-MB (CK-2) (0.0-2.4) ng/mL CK-MB (CK-2) Rel Index Troponin I (0.000-0.034) ng/mL Total Protein (6.3-8.2) g/dL Albumin (3.5-5.0) g/dL - NIH Stroke Scale 1a. Level of Consciousness: (0) alert 1b. LOC Questions: (0) answers correctly 1c. LOC Commands: (0) performs tasks correctly 2. Best Gaze: (0) normal 3. Visual: (0) no visual loss 4. Facial Palsy: (0) normal symmetrical movement 5a. Motor Arm Left: (0) no drift 5b. Motor Arm Right: (0) no drift 6a. Motor Leg Left: (0) no drift 6b. Motor Leg Right: (0) no drift 7. Limb Ataxia: (0) absent 8. Sensory: (0) normal 9. Best Language: (0) no aphasia 10. Dysarthria: (0) normal 11. Extinction/Inattention: (0) no abnormality - Thrombolytic Inclusion/Exclusion Thrombolytic Contraindications: Rapidly Improving s/s - Medical Decision Making Patient continues be symptom-free I did discuss findings with him and his and with the hospitalist group patient will be admitted with neurological consultation. The presentation is similar to presentation the patient has had the past with TIAs. 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 OCC EDEMA FEET. Current Gastric Ulcer. Stroke on 02/23/17. Peg tube placed which patient's spouse says hasn't been used in a month. History of Any Multi-Drug Resistant Organisms: None Reported Past Surgical History: Hernia Repair, Joint Replacement, Orthopedic Surgery Additional Past Surgical History / Comment(s): RT TOTAL KNEE Past Anesthesia/Blood Transfusion Reactions: No Reported Reaction Past Psychological History: No Psychological Hx Reported Smoking Status: Former smoker Past Alcohol Use History: None Reported Past Drug Use History: None Reported - Past Family History Mother Family Medical History: No Reported History Course Vital Signs 05/26/17 17:52 Temperature 98.4 F Pulse Rate 83 Respiratory 18 Rate Blood Pressure 110/60 O2 Sat by Pulse 99 Oximetry Disposition Clinical Impression: Transient cerebral ischemia Disposition: ADMITTED IP TO THIS HOSP Condition: Stable Referrals: Rick Luke MD [Primary Care Provider] - 1-2 days
[2017-05-26 18:38] LABS: Anisocytosis Slight; Basophils % (A) 1 %; CH 30.3; CHCM 32.8; Eosinophils # (A) 0.2 k/uL (0-0.7); Eosinophils % (A) 3 %; HCT 31.4 % (39.0-53.0); HDW 2.91; HGB 10.2 gm/dL (13.0-17.5); Luc # (Auto) 0.23; Luc % (Auto) 4; Lymphocytes # (A) 1.8 k/uL (1.0-4.8); Lymphocytes % (A) 31 %; MCH 29.9 pg (25.0-35.0); MCHC 32.4 g/dL (31.0-37.0); MCV 92.4 fL (80.0-100.0); Mean Platelet Volume 7.3; Monocytes # (A) 0.4 k/uL (0-1.0); Monocytes % (A) 6 %; Neutrophils # (A) 3.3 k/uL (1.3-7.7); Neutrophils % (A) 56 %; WBC 5.9 k/uL (3.8-10.6); WBC (Perox) 5.94
[2017-05-26 18:47] LABS: Calcium 9.4 mg/dL (8.4-10.2); Potassium 4.5 mmol/L (3.5-5.1); Total Bilirubin 0.4 mg/dL (0.2-1.3); Total Protein 7.5 g/dL (6.3-8.2)
[2017-05-26 18:50] LABS: Partial Thromboplastin Time 26.4 sec (22.0-30.0); Prothrombin Time 10.3 sec (9.0-12.0)
--- NOTE | 2017-05-26 18:58 | CT ---
EXAMINATION TYPE: CT brain wo con for TPA DATE OF EXAM: 05/26/2017 COMPARISON: April 28, 2017 HISTORY: Sudden onset weakness today CT DLP: 978.2 mGycm Automated exposure control for dose reduction was used. FINDINGS: There is no acute hemorrhage or major vessel territorial infarct. Old lacunar infarcts to the right t halamus and left thalamus are again noted. There is no mass, mass effect, or midline shift. There are no abnormal intra or extra-axial fluid collections. There is moderate cortical atrophy which is slig htly increased for the patient's age than what would be expected. The calvarium and paranasal sinuses are stable. IMPRESSION: NO SIGNIFICANT CHANGE IN APPEARANCE OF THE BRAIN. NO ACUTE INTRACRANIAL ABNORMALITY IS IDENTIFIED.
[2017-05-26 19:02] LABS: Creatine Kinase 96 U/L (55-170)
--- NOTE | 2017-05-26 19:06 | XR ---
EXAMINATION TYPE: XR chest 2V DATE OF EXAM: 05/26/2017 COMPARISON: April 28, 2017 HISTORY: Mental status change TECHNIQUE: Frontal and lateral views of the chest are obtained. FINDINGS: Findings appears stable compared to the previous study. There is no evidence of heart fail ure. There is no airspace opacity. The lungs are clear. The cardiac silhouette is within normal limit s. The aorta is tortuous. Osseous structures are unchanged. IMPRESSION: No acute cardiopulmonary process.
[2017-05-26 19:14] LABS: Creatine Kinase MB 0.9 ng/mL (0.0-2.4); Troponin I <0.012 ng/mL (0.000-0.034)
[2017-05-26] MEDS ORDERED: SODIUM CHLORIDE 0.9% 500 ML IV STA (19:17)
[2017-05-26] MEDS ORDERED: DOCUSATE 100 MG CAP PO PRN (20:23)
[2017-05-26] MEDS ORDERED: NON-FORMULARY DRUG (Glycopyrrolate/Formoterol Fum [Bevespi Aerosphere Inhaler] 1 PUFF) INHALATION PRN (20:23)
--- NOTE | 2017-05-26 20:34 | ED ---
Medical Decision Making - Lab Data Result diagrams: 05/26/17 18:14 05/26/17 18:14 Lab Results 05/26/17 05/26/17 05/26/17 Range/Units 18:14 18:14 18:14 WBC 5.9 (3.8-10.6) k/uL RBC 3.40 L (4.30-5.90) m/uL Hgb 10.2 L (13.0-17.5) gm/dL Hct 31.4 L (39.0-53.0) % MCV 92.4 (80.0-100.0) fL MCH 29.9 (25.0-35.0) pg MCHC 32.4 (31.0-37.0) g/dL RDW 17.0 H (11.5-15.5) % Plt Count 336 (150-450) k/uL Neutrophils % 56 % Lymphocytes % 31 % Monocytes % 6 % Eosinophils % 3 % Basophils % 1 % Neutrophils # 3.3 (1.3-7.7) k/uL Lymphocytes # 1.8 (1.0-4.8) k/uL Monocytes # 0.4 (0-1.0) k/uL Eosinophils # 0.2 (0-0.7) k/uL Basophils # 0.0 (0-0.2) k/uL Anisocytosis Slight PT (9.0-12.0) sec INR (<1.2) APTT (22.0-30.0) sec Sodium 138 (137-145) mmol/L Potassium 4.5 (3.5-5.1) mmol/L Chloride 103 (98-107) mmol/L Carbon Dioxide 25 (22-30) mmol/L Anion Gap 10 mmol/L BUN 21 H (9-20) mg/dL Creatinine 1.50 H (0.66-1.25) mg/dL Est GFR (MDRD) Af Amer 57 (>60 ml/min/1.73 sqM) Est GFR (MDRD) Non-Af 47 (>60 ml/min/1.73 sqM) Glucose 87 (74-99) mg/dL Calcium 9.4 (8.4-10.2) mg/dL Total Bilirubin 0.4 (0.2-1.3) mg/dL AST 30 (17-59) U/L ALT 35 (21-72) U/L Alkaline Phosphatase 113 (38-126) U/L Total Creatine Kinase 96 (55-170) U/L CK-MB (CK-2) 0.9 (0.0-2.4) ng/mL CK-MB (CK-2) Rel Index 0.9 Troponin I <0.012 (0.000-0.034) ng/mL Total Protein 7.5 (6.3-8.2) g/dL Albumin 4.0 (3.5-5.0) g/dL 05/26/17 Range/Units 18:14 WBC (3.8-10.6) k/uL RBC (4.30-5.90) m/uL Hgb (13.0-17.5) gm/dL Hct (39.0-53.0) % MCV (80.0-100.0) fL MCH (25.0-35.0) pg MCHC (31.0-37.0) g/dL RDW (11.5-15.5) % Plt Count (150-450) k/uL Neutrophils % % Lymphocytes % % Monocytes % % Eosinophils % % Basophils % % Neutrophils # (1.3-7.7) k/uL Lymphocytes # (1.0-4.8) k/uL Monocytes # (0-1.0) k/uL Eosinophils # (0-0.7) k/uL Basophils # (0-0.2) k/uL Anisocytosis PT 10.3 (9.0-12.0) sec INR 1.0 (<1.2) APTT 26.4 (22.0-30.0) sec Sodium (137-145) mmol/L Potassium (3.5-5.1) mmol/L Chloride (98-107) mmol/L Carbon Dioxide (22-30) mmol/L Anion Gap mmol/L BUN (9-20) mg/dL Creatinine (0.66-1.25) mg/dL Est GFR (MDRD) Af Amer (>60 ml/min/1.73 sqM) Est GFR (MDRD) Non-Af (>60 ml/min/1.73 sqM) Glucose (74-99) mg/dL Calcium (8.4-10.2) mg/dL Total Bilirubin (0.2-1.3) mg/dL AST (17-59) U/L ALT (21-72) U/L Alkaline Phosphatase (38-126) U/L Total Creatine Kinase (55-170) U/L CK-MB (CK-2) (0.0-2.4) ng/mL CK-MB (CK-2) Rel Index Troponin I (0.000-0.034) ng/mL Total Protein (6.3-8.2) g/dL Albumin (3.5-5.0) g/dL Disposition Clinical Impression: Transient cerebral ischemia Disposition: ADMITTED IP TO THIS HOSP Condition: Stable Referrals: Rick Luke MD [Primary Care Provider] - 1-2 days Decision Time: 19:55
[2017-05-26 21:22] VITALS: BMI 21.7
[2017-05-26] MEDS: MELATONIN 3 MG TABLET PO SCH (21:51)
[2017-05-26] MEDS: ATORVASTATIN 80 MG TAB PO SCH (21:51)
[2017-05-26] MEDS: SODIUM CHLORIDE 0.9% 1,000 ML IV SCH (21:51)
[2017-05-27 06:34] LABS: Cholesterol 153 mg/dL (<200); HDL Cholesterol 46 mg/dL (40-60); Triglycerides 47 mg/dL (<150)
[2017-05-27] MEDS: SODIUM CHLORIDE 0.9% 1,000 ML IV SCH ×2 (06:38→20:06)
[2017-05-27] MEDS: PANTOPRAZOLE 40 MG TABLET PO SCH (06:38)
[2017-05-27] MEDS: BUDESONIDE 0.5 MG/2 ML NEBU INHALATION SCH ×2 (08:54→20:42)
[2017-05-27] MEDS: IPRATROPIUM-ALBUTEROL 3 ML NEB INHALATION SCH ×3 (08:54→20:42)
--- NOTE | 2017-05-27 10:09 | US ---
EXAMINATION TYPE: US carotid duplex BILAT DATE OF EXAM: 05/27/2017 COMPARISON: Prior Doppler duplex and CTA neck 02/24/2017 CLINICAL HISTORY: Stenosis. Stroke like symptoms EXAM MEASUREMENTS: RIGHT: Peak Systolic Velocity (PSV) cm/sec ----- Right CCA: 73.6 ----- Right ICA: 62.0 ----- Right ECA: 107.5 ICA/CCA ratio: 0.8 RIGHT: End Diastole cm/sec ----- Right CCA: 13.3 ----- Right ICA: 13.7 ----- Right ECA: 12.1 LEFT: Peak Systolic Velocity (PSV) cm/sec ----- Left CCA: 66.8 ----- Left ICA: 77.2 ----- Left ECA: 75.4 ICA/CCA ratio: 1.2 LEFT: End Diastole cm/sec ----- Left CCA: 14.6 ----- Left ICA: 27.7 ----- Left ECA: 9.0 VERTEBRALS (direction of flow): Right Vertebral: Antegrade Left Vertebral: Antegrade No elevated velocities, no significant stenosis atheromatous change present at the carotid bulb on th e left. Grayscale, color Doppler, spectral Doppler imaging performed of the carotid arteries IMPRESSION: No hemodynamic significant stenosis of the proximal internal carotid arteries bilaterall y by Doppler criteria, an indirect measurement of carotid stenosis
[2017-05-27] MEDS: ASPIRIN 81 MG CHEW PO SCH (10:35)
[2017-05-27] MEDS: amLODIPine 10 MG TAB PO SCH (10:35)
[2017-05-27] MEDS: CHOLECALCIFEROL 1,000 UNIT TAB PO SCH (10:35)
[2017-05-27] MEDS: CLOPIDOGREL 75 MG TAB PO SCH (10:35)
[2017-05-27] MEDS: TAMSULOSIN 0.4 MG CAP.ER.24H PO SCH (10:36)
[2017-05-27] MEDS: NICOTINE 14MG/24HR PATCH TRANSDERM SCH (10:36)
[2017-05-27] MEDS: CYANOCOBALAMIN 500 MCG TAB PO SCH (10:36)
[2017-05-27] MEDS: ENOXAPARIN 40 MG/0.4 ML SYRINGE SQ SCH (10:39)
--- NOTE | 2017-05-27 17:13 | P.CNNES ---
History of Present Illness Consult date: 05/27/17 Reason for Consult: Patient admitted with TIA. History of Present Illness: This patient is a 66-year-old right-handed -[place] male who was recently admitted to hospital in early April for TIA and stroke. Patient underwent extensive evaluation and then was transferred to [facility] for further stroke assessment. He was admitted to [facility] back on 2016. 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 He underwent a cerebral angiogram at [facility] on 05/04/2017. This study revealed multiple areas of vascular narrowing suggesting possibility of vasculitis versus intracranial arterial sclerotic disease. He underwent further testing including lumbar puncture for vasculitis which came back negative. He was advised follow-up for his condition on 06/19/2017 at [facility]. He had cerebral angiogram which did reveal vascular narrowing involving the right hemisphere the brain. According to his the specialists at [facility] suggested the only option would be is to consider for intracranial stenting procedure. This is a highly brisky procedure and this is only to be considered as a last resort. The patient was discharged from [facility] and was making recovery at home. He has been having home physical therapy and speech therapy work with him. He was brought back to the emergency room last night as he was complaining of left foot tingling sensation. This lasted for about 15 minutes in duration and quickly resolved. His NIH stroke scale was noted to be 0 in the ER. He was not a TPA candidate as per Dr. Kline. He is to continue on maximal medical therapy for his stroke condition and is currently taking Plavix and aspirin daily. The patient states he is feeling better today. He has had no further tingling in his left leg. He is to continue with home PT/OT and will soon started on outpatient therapies as well. Overall the patient seems to be doing well this morning. He does seem to be quite awake and alert today. He is answering all questions appropriately. Neurology is now been consulted for further evaluation and recommendations. Review of Systems Constitutional: Denies chills, Denies fever Eyes: denies blurred vision, denies pain Ears, nose, mouth and throat: Denies headache, Denies sore throat Cardiovascular: Denies chest pain, Denies shortness of breath Respiratory: Denies cough Gastrointestinal: Denies abdominal pain, Denies diarrhea, Denies nausea, Denies vomiting Musculoskeletal: Denies myalgias Integumentary: Denies pruritus, Denies rash Neurological: Reports balance difficulties, Reports burning pain, Reports paresthesias, Reports tingling, Denies numbness, Denies weakness Psychiatric: Denies anxiety, Denies depression Endocrine: Denies fatigue, Denies weight change Past Medical History Past Medical History: CVA/TIA, GERD/Reflux, Hyperlipidemia, Hypertension, Musculoskeletal Disorder Additional Past Medical History / Comment(s): 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 OCC EDEMA FEET. Current Gastric Ulcer. Stroke on 02/23/17. Peg tube placed which patient's spouse says hasn't been used in a month. History of Any Multi-Drug Resistant Organisms: None Reported Past Surgical History: Hernia Repair, Joint Replacement, Orthopedic Surgery Additional Past Surgical History / Comment(s): RT TOTAL KNEE Past Anesthesia/Blood Transfusion Reactions: No Reported Reaction Past Psychological History: No Psychological Hx Reported Smoking Status: Former smoker Past Alcohol Use History: None Reported Additional Past Alcohol Use History / Comment(s): SMOKED < 1PPD FOR 38 YEARS EST. Past Drug Use History: None Reported - Past Family History Mother Family Medical History: CVA/TIA, Diabetes Mellitus, Hyperlipidemia, Hypertension Medications and Allergies Home Medications Medication Instructions Recorded Confirmed Type Aspirin EC [Ecotrin Low Dose] 81 mg PO QAM 05/26/17 05/26/17 History Atorvastatin [Lipitor] 80 mg PO HS 05/26/17 05/26/17 History Budesonide [Pulmicort] 0.5 mg INHALATION RT-BID 05/26/17 05/26/17 History Cholecalciferol [Vitamin D3] 1,000 unit PO QAM 05/26/17 05/26/17 History Clopidogrel [Plavix] 75 mg PO QAM 05/26/17 05/26/17 History Cyanocobalamin (Vitamin B-12) 1,000 mcg PO QAM 05/26/17 05/26/17 History [Vitamin B-12] Docusate [Colace] 100 mg PO TID PRN 05/26/17 05/26/17 History Glycopyrrolate/Formoterol Fum 1 puff INHALATION RT-BID PRN 05/26/17 05/26/17 History [Bevespi Aerosphere Inhaler] Ipratropium-Albuterol Nebulize 3 ml INHALATION RT-TID 05/26/17 05/26/17 History [Duoneb 0.5 mg-3 mg/3 ml Soln] Melatonin 6 mg PO HS 05/26/17 05/26/17 History Nicotine 14Mg/24Hr Patch [Habitrol 1 patch TRANSDERM DAILY 05/26/17 05/26/17 History 14Mg/24Hr Patch] Omeprazole 20 mg PO BID 05/26/17 05/26/17 History Tamsulosin HCl [Flomax] 0.4 mg PO QAM 05/26/17 05/26/17 History amLODIPine [Norvasc] 10 mg PO QAM 05/26/17 05/26/17 History Allergies Allergy/AdvReac Type Severity Reaction Status Date / Time No Known Allergies Allergy Verified 05/26/17 17:56 Physical Examination - Vital Signs Vital Signs: Vital Signs Temp Pulse Pulse Resp BP BP Pulse Ox 05/27/17 04:00 98 F 74 18 141/74 99 05/27/17 00:00 98.4 F 69 18 143/70 100 05/26/17 20:33 97.8 F 71 18 130/78 100 05/26/17 20:13 74 18 126/78 97 05/26/17 19:53 71 18 129/76 100 05/26/17 17:52 98.4 F 83 18 110/60 99 Intake and Output 05/26/17 05/27/17 05/27/17 22:59 06:59 14:59 Output Total 150 Balance -150 Output: Urine 150 Other: Voiding Method Urinal Diaper Incontinent # Voids 1 Weight 76.657 kg 75.9 kg - Constitutional General appearance: average body habitus, cooperative - EENT EENT: PERRL, mucous membranes moist - Respiratory Respiratory: lungs clear, normal breath sounds - Cardiovascular Cardiovascular: regular rate, normal S1, normal S2 Extremities: no peripheral edema bilaterally - Gastrointestinal Gastrointestinal: normoactive bowel sounds - Integumentary Integumentary: normal - Neurologic Cranial nerve examination: PERRL, EOMI, VFF, V1/V2/V3 grossly intact, face symmetric, tongue midline, intact gag reflex, intact corneal reflex, normal palatal elevation Speech examination: intact Sensorimotor examination: intact Motor examination - right side: 4/5: biceps, triceps, wrist flexion, wrist extension, catalyst operator gasoline, hip flexors, knee extensors, dorsiflexion, toe extension (EHL) , plantarflexion Motor examination - left side: 3/5: biceps, triceps, wrist flexion, wrist extension, catalyst operator gasoline, hip flexors, knee extensors, dorsiflexion, toe extension (EHL) , plantarflexion Detailed sensory examination: intact Reflex and gait examination: intact Reflexes: 1+: ankle, bicep, knee, tricep - Musculoskeletal Musculoskeletal: no pain - Psychiatric Psychiatric: mood/affect appropriate, cooperative Results - Laboratory Findings CBC and BMP: 05/26/17 18:14 05/26/17 18:14 Abnormal Lab Findings: Abnormal Labs 05/26/17 05/26/17 18:14 18:14 RBC 3.40 L Hgb 10.2 L Hct 31.4 L RDW 17.0 H BUN 21 H Creatinine 1.50 H Assessment and Plan (1) TIA (transient ischemic attack) Status: Acute Code(s): G45.9 - TRANSIENT CEREBRAL ISCHEMIC ATTACK, UNSPECIFIED (2) Acute right arterial ischemic stroke, MCA (middle cerebral artery) Status: Acute Code(s): I63.511 - CEREB INFRC D/T UNSP OCCLS OR STENOS OF RIGHT MID CEREB ART (3) Hyperlipidemia Status: Acute Code(s): E78.5 - HYPERLIPIDEMIA, UNSPECIFIED (4) Hypertension Status: Acute Code(s): I10 - ESSENTIAL (PRIMARY) HYPERTENSION (5) History of stroke Status: Chronic Code(s): Z86.73 - PRSNL HX OF TIA (TIA), AND CEREB INFRC W/O RESID DEFICITS Plan: This patient is a 66-year-old male who was admitted to Hospital for evaluation of left leg numbness and tingling. Episode lasted about 15 minutes in duration and resolve. He was brought into the emergency room at [facility] for further evaluation. He was recently discharged from [facility] where he was evaluated for intracranial arterial sclerotic disease. He has been placed on Plavix and aspirin for aggressive medical therapy. He underwent extensive evaluation and an report including cerebral angiogram and lumbar puncture to rule out vasculitis. Apparently these studies came back negative. He is being considered for possible stenting of cervical cranial arteries if he fails maximum medical therapy. He is to be reevaluated attending [facility] on 06/19/2017. Patient's symptoms of left leg numbness have resolved. Exact etiology is unclear. Would recommend to check this patient for possibility of early diabetes mellitus. This clinical history suggests possibility of prediabetes for this patient. He is on maximum therapy for stroke at this time and should continue on Plavix and aspirin. He should follow -up with this neurologist at [facility] as scheduled. We will continue close neurological follow-up with this patient during this admission. Case was discussed at length with the patient and his at bedside. All of their questions were answered. His overall prognosis at this time remains very guarded. Time with Patient: Greater than 30
[2017-05-27] MEDS: MELATONIN 3 MG TABLET PO SCH (20:06)
[2017-05-27] MEDS: ATORVASTATIN 80 MG TAB PO SCH (20:06)
[2017-05-28] MEDS: SODIUM CHLORIDE 0.9% 1,000 ML IV SCH ×2 (04:15→12:03)
[2017-05-28 06:29] LABS: Anion Gap 11 mmol/L; Blood Urea Nitrogen 10 mg/dL (9-20); Calcium 9.6 mg/dL (8.4-10.2); Carbon Dioxide 26 mmol/L (22-30); Chloride 104 mmol/L (98-107); Glucose 85 mg/dL (74-99); Non-African American GFR(MDRD) >60 (>60 ml/min/1.73 sqM); Potassium 3.4 mmol/L (3.5-5.1); Sodium 141 mmol/L (137-145)
[2017-05-28] MEDS: PANTOPRAZOLE 40 MG TABLET PO SCH (06:33)
[2017-05-28 08:29] LABS: Hemoglobin A1C 6.1 % (4.2-6.1)
[2017-05-28 08:46] VITALS: BP 147/79; RESP 16; TEMP 97.2
[2017-05-28] MEDS: amLODIPine 10 MG TAB PO SCH (08:46)
[2017-05-28] MEDS: ENOXAPARIN 40 MG/0.4 ML SYRINGE SQ SCH (08:46)
[2017-05-28] MEDS: NICOTINE 14MG/24HR PATCH TRANSDERM SCH (08:46)
[2017-05-28] MEDS: TAMSULOSIN 0.4 MG CAP.ER.24H PO SCH (08:46)
[2017-05-28] MEDS: CYANOCOBALAMIN 500 MCG TAB PO SCH (08:47)
[2017-05-28] MEDS: CLOPIDOGREL 75 MG TAB PO SCH (08:47)
[2017-05-28] MEDS: ASPIRIN 81 MG CHEW PO SCH (08:47)
[2017-05-28] MEDS: CHOLECALCIFEROL 1,000 UNIT TAB PO SCH (08:47)
[2017-05-28] MEDS: BUDESONIDE 0.5 MG/2 ML NEBU INHALATION SCH (08:52)
[2017-05-28] MEDS: IPRATROPIUM-ALBUTEROL 3 ML NEB INHALATION SCH ×2 (08:52→13:09)
--- NOTE | 2017-05-28 09:19 | HP ---
DATE OF ADMISSION: 05/26/2017 PRESENTING COMPLAINT: Tingling in the left foot. HISTORY OF PRESENTING COMPLAINT: This is a very pleasant gentleman who on had a MRI that showed multiple areas of acute stroke bilaterally. On 02/26/17, YESICA was done that did not show any interatrial shunt. Patient also had a PEG tube. Patient then came back on 04/28/17, MRI of the brain showed a stroke in the anterior corpus callosum and right temporal lobe. The patient's EEG was negative for seizure activity. At that time, I transferred the patient to [facility] to the stroke unit. Patient's informs me that patient was found to have ( ) stenosis and they decided to do medical management. Patient has been home for about 3 weeks. Patient now presents with numbness of the left foot and tingling that lasted for a half an hour. Symptoms resolved when the patient came to the hospital. Patient has some residual weakness from prior strokes on the left side. On this occasion, no change in speech. No change in swallowing. No change in vision. No headache and rest of the symptoms as above. REVIEW OF SYSTEMS: CONSTITUTIONAL: None. HEENT: None. RESPIRATORY: None. CARDIOVASCULAR: None. GASTROINTESTINAL: None. GENITOURINARY: None. MUSCULOSKELETAL: Some pain in the joints. DERMATOLOGICAL: None. HEMATOLOGICAL: None. LYMPHATICS: None. PSYCHIATRY: None. NEUROLOGICAL: Chronic, some left sided weakness and some tingling in the left foot, now improved. PAST MEDICAL HISTORY: Stroke, multiple areas, essential hypertension, hyperlipidemia, primary osteoarthritis, GERD, COPD. PAST SURGICAL HISTORY: Hernia repair, joint replacement, right total knee. SOCIAL HISTORY: Lives with his . Smokes less than a pack a day for 38 years. No alcohol. FAMILY HISTORY: Stroke, diabetes, hyperlipidemia, hypertension. HOME MEDICATIONS: 1. Norvasc 10 mg a day. 2. Flomax 0.4 mg a day. 3. Omeprazole 20 mg b.i.d. 4. Nicotine 14 one patch daily. 5. Melatonin 6 mg q.h.s. 6. DuoNeb t.i.d. 7. Bevespi 1 puff b.i.d. p.r.n. 8. Colace 100 mg t.i.d. p.r.n. 9. Vitamin B12, 1000 mcg p.o. daily. 10. Plavix 75 mg p.o. daily. 11. Vitamin D3, 1000 units p.o. daily. 12. Pulmicort 0.5 nebulizer b.i.d. 13. Lipitor 80 mg q.h.s. 14. Aspirin 81 mg q. daily. ALLERGIES: None. ON EXAMINATION: VITAL SIGNS ON PRESENTATION: Temperature 98.4, pulse 83, respirations 18, blood pressure 110/80, pulse ox 99% on room air. GENERAL APPEARANCE: Thin built, sitting up, awake. EYES: Pupils equal. Conjunctivae normal. HENT: Oral cavity normal. NECK: JVD not raised. Mass not palpable. RESPIRATORY: Effort ( ). LUNGS: Diminished breath sounds. CARDIOVASCULAR: First and second sounds normal. No edema. ABDOMEN: Soft, nontender. Liver and spleen not palpable. LYMPHATICS: No lymph node palpable in the neck and axillae. PSYCHIATRY: Alert and oriented x3. Mood and affect slightly low. NEUROLOGICAL: Power on the left side is 4 x 5. Speech is normal. No sensation deficit peripherally. INVESTIGATIONS: White count 5.9, hemoglobin 10.2. BUN 21, creatinine 1.5. The patient's BUN and creatinine was 15/1.13 on 04/29/17. LDL is 98. CT scan of the brain nil acute. ASSESSMENT: 1. Acute transient ischemic attack in the right middle cerebral artery area causing tingling in the left foot, now resolved. 2. Multiple strokes in the past, recurrent in bilateral hemisphere with some intracranial stenosis. 3. Essential hypertension. 4. Hyperlipidemia. 5. Primary osteoarthritis multiple joints bilateral. 6. Gastroesophageal reflux disease. 7. Chronic obstructive pulmonary disease in an ex-smoker. PLAN: Care was discussed at length with the patient's at the bedside. Patient has an appointment to follow up at [facility] in another maybe 2 to 3 weeks time. I don't think any further testing will be beneficial as patient has rather exhausted testing in the past ( ) diagnosis and patient is to be managed medically. Neurological opinion is being sought. Care was discussed at length with the patient's at the bedside. Questions were answered. PIETRO
[2017-05-28] MEDS ORDERED: POTASSIUM CHLORIDE ER 20 MEQ TAB.ER PO STA (10:37)
[2017-05-28 13:17] VITALS: PULSE 76
--- NOTE | 2017-05-28 19:34 | P.PN ---
Subjective This patient is a 66-year-old right-handed -[place] male who was admitted to the hospital yesterday for evaluation of left leg numbness. He is undergone extensive evaluation recently for multiple stroke syndrome. He was recently discharged from [facility] where he was seen in the stroke clinic. He is currently on a combination of Plavix and aspirin for maximum medical therapy given his history of bilateral strokes. 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 He is being considered for further intervention if he fails maximal medical therapy. Patient underwent laboratory testing on admission and his hemoglobin A1c is 6.1. He is to be closely monitored for early diabetic neuropathy as well. Patient has been doing better today. He is being considered for possible discharge home later today. He should follow-up with the stroke clinic at [facility]'s schedule. He should be maintained on Plavix and aspirin at this time. His overall prognosis at this time remains guarded. Objective - Vital Signs Vital signs: Vital Signs Temp 97.2 F L 05/28/17 08:00 Pulse 76 05/28/17 08:54 Resp 16 05/28/17 08:00 BP 147/79 05/28/17 08:00 Pulse Ox 98 05/28/17 08:00 Intake & Output 05/27/17 05/28/17 05/28/17 18:59 06:59 18:59 Intake Total 1520 1100 0 Output Total 400 400 Balance 1120 700 0 Weight 75.6 kg Intake: Intake, IV Titration 800 1100 Amount Sodium Chloride 0.9% 1, 800 1100 000 ml @ 100 mls/hr IV . Q10H [facility] Rx#:[id number] Oral 720 0 Output: Urine 400 400 Other: Voiding Method Urinal Urinal Diaper Diaper Incontinent Incontinent # Voids 1 1 - Exam Physical examination: PHYSICAL EXAMINATION: Patient is resting comfortably in bed. VITAL SIGNS: Blood pressure is [147/79]. Heart rate is [74]. Respiration is [16] . Temperature is [97.2]. HEENT: Head is atraumatic, neck is supple, there were no carotid bruits. CHEST: Lungs are clear to auscultation and percussion. CARDIAC: S1, S2 normal rate and rhythm. There is no murmur. ABDOMEN: Soft and nontender. Bowel sounds are present. EXTREMITIES: There is no pedal edema. Peripheral pulses are present. Neurological examination: Patient's neurological examination is unchanged from yesterday. - Labs CBC & Chem 7: 05/26/17 18:14 05/28/17 05:47 Labs: Abnormal Lab Results - Last 24 Hours (Table) 05/28/17 Range/Units 05:47 Potassium 3.4 L (3.5-5.1) mmol/L Assessment and Plan (1) TIA (transient ischemic attack) Status: Acute Code(s): G45.9 - TRANSIENT CEREBRAL ISCHEMIC ATTACK, UNSPECIFIED (2) Acute right arterial ischemic stroke, MCA (middle cerebral artery) Status: Acute Code(s): I63.511 - CEREB INFRC D/T UNSP OCCLS OR STENOS OF RIGHT MID CEREB ART (3) Hyperlipidemia Status: Acute Code(s): E78.5 - HYPERLIPIDEMIA, UNSPECIFIED (4) Hypertension Status: Acute Code(s): I10 - ESSENTIAL (PRIMARY) HYPERTENSION (5) History of stroke Status: Chronic Code(s): Z86.73 - PRSNL HX OF TIA (TIA), AND CEREB INFRC W/O RESID DEFICITS Plan: This patient is a 66-year-old male who was admitted to Hospital for evaluation of left leg numbness and tingling. Episode lasted about 15 minutes in duration and resolve. He was brought into the emergency room at [facility] for further evaluation. He was recently discharged from [facility] where he was evaluated for intracranial arterial sclerotic disease. He has been placed on Plavix and aspirin for aggressive medical therapy. He underwent extensive evaluation and an report including cerebral angiogram and lumbar puncture to rule out vasculitis. Apparently these studies came back negative. He is being considered for possible stenting of cervical cranial arteries if he fails maximum medical therapy. He is to be reevaluated attending Leonie on 06/19/2017. Patient's symptoms of left leg numbness have resolved. Exact etiology is unclear. Would recommend to check this patient for possibility of early diabetes mellitus. This clinical history suggests possibility of prediabetes for this patient. He is on maximum therapy for stroke at this time and should continue on Plavix and aspirin. He should follow -up with this neurologist at [facility] as scheduled. We will continue close neurological follow-up with this patient during this admission. Case was discussed at length with the patient and his at bedside. All of their questions were answered. We did note that his hemoglobin A1c is 6.1. He should be closely monitored for early prediabetes. He is to follow-up with the stroke clinic at [facility] as scheduled. He is being considered for discharge home today. He should continue on Plavix and aspirin for secondary stroke prevention. His overall prognosis at this time remains very guarded.
--- NOTE | 2017-05-31 12:34 | DS ---
DATE OF ADMISSION: 05/26/2017 DATE OF DISCHARGE: 05/28/2017 FINAL DIAGNOSES: 1. Acute transient ischemic attack in the right middle cerebral artery area in a right-handed patient causing tingling in the left foot. 2. Multiple strokes in the past recurrent in bilateral hemispheres with known focal severe right M2 origin stenosis. 3. Essential hypertension. 4. Hyperlipidemia. 5. Primary osteoarthritis in multiple joints, bilateral. 6. Gastroesophageal reflux disease. 7. Chronic obstructive pulmonary disease in an ex-smoker. HOSPITAL COURSE: This is a very pleasant gentleman who on 02/24/2017 was here initially in the hospital, has had bilateral strokes, YESICA did not show any shunt , was transferred to [facility] on the last admission, has been home for 3 weeks. He was found to have a focus of severe right-sided M2 origin stenosis, medical management was emphasized. Patient came in with tingling of the left foot that resolved within a few hours. CT scan of the brain was unremarkable. Carotid Doppler did show any evident stenosis. Patient due to follow up at [facility] in the next 3 weeks. Care was discussed in detail with the patient and , questions were answered. On examination, patient has residual left-side weakness from the prior strokes. Power is 4/5. Lungs, fair entry. CARDIOVASCULAR: First and second sounds are normal. CONSULTATION: Dr. Marilyn Mcghee from Neurology. DISCHARGE MEDICATIONS: 1. Aspirin 81 mg a day. 2. Lipitor 80 mg q.h.s. 3. Pulmicort 0.5 mg b.i.d. 4. Vitamin D3 three thousand units p.o. daily. 5. Plavix 75 mg daily. 6. Vitamin B12 one thousand mcg p.o. daily. 7. Bevespi inhaler 1 puff b.i.d. 8. DuoNeb t.i.d. 9. Melatonin 6 mg q.h.s. 10. Nicotine patch 14. 11. Omeprazole 20 mg b.i.d. 12. Flomax 0.4 mg daily. 13. Norvasc 10 mg daily. 14. MiraLAX 17 gm daily. Follow up with Dr. Luke in 2 to 3 days. Follow up with Dr. Baca in 1 week. Patient to keep his [facility] appointment on 06/19/2017. [facility]
== END 2017-05-28 16:01 | disposition home or self-care (01) | DRG 69 ==
LOC: EC 17:49 → 6SEL 20:20
PROVIDERS: ADMIT Hospitalist; ATTEND Hospitalist
DX: G45.9 Transient cerebral ischemic attack, unspecified (principal); J44.9 Chronic obstructive pulmonary disease, unspecified; G81.94 Hemiplegia, unspecified affecting left nondominant side; I10 Essential (primary) hypertension; G62.9 Polyneuropathy, unspecified; E78.5 Hyperlipidemia, unspecified; M19.91 Primary osteoarthritis, unspecified site; R73.03 Prediabetes; R29.700 NIHSS score 0; R32 Unspecified urinary incontinence; K21.9 Gastro-esophageal reflux disease without esophagitis; Z79.82 Long term (current) use of aspirin; Z79.899 Other long term (current) drug therapy; Z87.891 Personal history of nicotine dependence; Z79.02 Long term (current) use of antithrombotics/antiplatelets; Z83.3 Family history of diabetes mellitus; Z82.49 Family history of ischemic heart disease and other diseases of the circulatory system; Z82.3 Family history of stroke; Z79.51 Long term (current) use of inhaled steroids; Z87.11 Personal history of peptic ulcer disease; Z86.79 Personal history of other diseases of the circulatory system; Z86.19 Personal history of other infectious and parasitic diseases; Z87.39 Personal history of other diseases of the musculoskeletal system and connective tissue; Z96.651 Presence of right artificial knee joint; Z93.1 Gastrostomy status
CPT/HCPCS: 36415; 70450; 71020; 80048; 80053; 80061; 82550; 82553; 83036; 84484; 85025; 85610; 85730; 93005; 93880; 94640; 96360; 96361; 99285

== ENCOUNTER 2017-05-29 16:08 | Emergency (ER) | payer MEDICARE, BC ==
[2017-05-29] MEDS ORDERED: SODIUM CHLORIDE 0.9% 1,000 ML IV STA (16:23)
--- NOTE | 2017-05-29 16:27 | ED ---
General Adult HPI - General Chief complaint: Weakness Stated complaint: weakness Time Seen by Provider: 05/29/17 16:12 Source: patient, EMS, RN notes reviewed, old records reviewed Mode of arrival: EMS Limitations: no limitations - History of Present Illness Initial comments: This is a 66-year-old male here for evaluation of what he feels like his throat. Patient has history of brain disease neck arterial disease, patient states he has been a hospital recently regarding CVA and stroke, he did drop his coffee mug earlier today while trying to attempting to drink. He states that weakness has improved. At this time he denies any other complaints - Related Data Home Medications Medication Instructions Recorded Confirmed Aspirin EC [Ecotrin Low Dose] 81 mg PO QAM 05/26/17 05/29/17 Atorvastatin [Lipitor] 80 mg PO 05/26/17 05/29/17 Budesonide [Pulmicort] 0.5 mg INHALATION RT-BID 05/26/17 05/29/17 Cholecalciferol [Vitamin D3] 1,000 unit PO QAM 05/26/17 05/29/17 Clopidogrel [Plavix] 75 mg PO QAM 05/26/17 05/29/17 Cyanocobalamin (Vitamin B-12) 1,000 mcg PO QAM 05/26/17 05/29/17 [Vitamin B-12] Glycopyrrolate/Formoterol Fum 1 puff INHALATION RT-BID PRN 05/26/17 05/29/17 [Bevespi Aerosphere Inhaler] Ipratropium-Albuterol Nebulize 3 ml INHALATION RT-TID 05/26/17 05/29/17 [Duoneb 0.5 mg-3 mg/3 ml Soln] Melatonin 6 mg PO 05/26/17 05/29/17 Nicotine 14Mg/24Hr Patch [Habitrol] 1 patch TRANSDERM DAILY 05/26/17 05/29/17 Omeprazole 20 mg PO BID 05/26/17 05/29/17 Tamsulosin HCl [Flomax] 0.4 mg PO QAM 05/26/17 05/29/17 amLODIPine [Norvasc] 10 mg PO QAM 05/26/17 05/29/17 Previous Rx's Medication Instructions Recorded Polyethylene Glycol 3350 [Miralax] 17 gm PO DAILY #1 package 05/28/17 Allergies Allergy/AdvReac Type Severity Reaction Status Date / Time No Known Allergies Allergy Verified 05/29/17 16:21 Review of Systems ROS Statement: Those systems with pertinent positive or pertinent negative responses have been documented in the HPI. ROS Other: All systems not noted in ROS Statement are negative. 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 OCC EDEMA FEET. Current Gastric Ulcer. Stroke on 02/23/17. Peg tube placed which patient's spouse says hasn't been used in a month. History of Any Multi-Drug Resistant Organisms: None Reported Past Surgical History: Hernia Repair, Joint Replacement, Orthopedic Surgery Additional Past Surgical History / Comment(s): RT TOTAL KNEE Past Anesthesia/Blood Transfusion Reactions: No Reported Reaction Past Psychological History: No Psychological Hx Reported Smoking Status: Former smoker Past Alcohol Use History: Occasional Past Drug Use History: None Reported - Past Family History Mother Family Medical History: CVA/TIA, Diabetes Mellitus, Hyperlipidemia, Hypertension General Exam - General Exam Comments Initial Comments: No new focal neurological deficit Limitations: no limitations General appearance: alert, in no apparent distress Head exam: Present: atraumatic, normocephalic, normal inspection Eye exam: Present: normal appearance, PERRL, EOMI. Absent: scleral icterus, conjunctival injection, periorbital swelling ENT exam: Present: normal exam, mucous membranes moist Neck exam: Present: normal inspection. Absent: tenderness, meningismus, lymphadenopathy Respiratory exam: Present: normal lung sounds bilaterally. Absent: respiratory distress, wheezes, rales, rhonchi, stridor Cardiovascular Exam: Present: regular rate, normal rhythm, normal heart sounds. Absent: systolic murmur, diastolic murmur, rubs, gallop, clicks GI/Abdominal exam: Present: soft, normal bowel sounds. Absent: distended, tenderness, guarding, rebound, rigid Extremities exam: Present: normal inspection, full ROM, normal capillary refill. Absent: tenderness, pedal edema, joint swelling, calf tenderness Back exam: Present: normal inspection Neurological exam: Present: alert, oriented X3, CN II-XII intact Psychiatric exam: Present: normal affect, normal mood Skin exam: Present: warm, dry, intact, normal color. Absent: rash Course Vital Signs 0805/29/17 05/29/17 16:10 16:33 17:28 Temperature 97.6 F Pulse Rate 80 79 82 Respiratory 18 18 18 Rate Blood Pressure 120/66 116/70 120/70 O2 Sat by Pulse 100 100 100 Oximetry - Reevaluation(s) Reevaluation #1: 05/29/17 17:41 Patient remains without neurological complaining emergency room, no right-hand right arm weakness Reevaluation #2: 05/29/17 17:41 Prior ER visits, hospitalizations review including MRI, CT brain EKG Findings - EKG Comments: EKG Findings:: EKG shows normal sinus rhythm rate of 75, IN 178, QRS 84, QTC 437 Medical Decision Making - Medical Decision Making 66 year for evaluation regarding CVA, also recent hospital admissions here at this hospital and transferred to report regarding CVA, TIA, patient and family requesting transfer to have a for for further management. - Lab Data Result diagrams: 05/29/17 16:20 05/29/17 16:20 Lab Results 05/29/17 05/29/17 05/29/17 Range/Units 16:20 16:20 16:20 WBC 6.1 (3.8-10.6) k/uL RBC 3.48 L (4.30-5.90) m/uL Hgb 10.4 L (13.0-17.5) gm/dL Hct 32.5 L (39.0-53.0) % MCV 93.4 (80.0-100.0) fL MCH 29.8 (25.0-35.0) pg MCHC 31.9 (31.0-37.0) g/dL RDW 17.4 H (11.5-15.5) % Plt Count 334 (150-450) k/uL Neutrophils % 58 % Lymphocytes % 30 % Monocytes % 6 % Eosinophils % 3 % Basophils % 1 % Neutrophils # 3.5 (1.3-7.7) k/uL Lymphocytes # 1.8 (1.0-4.8) k/uL Monocytes # 0.3 (0-1.0) k/uL Eosinophils # 0.2 (0-0.7) k/uL Basophils # 0.0 (0-0.2) k/uL Anisocytosis Slight PT (9.0-12.0) sec INR (<1.2) APTT (22.0-30.0) sec Sodium 136 L (137-145) mmol/L Potassium 3.8 (3.5-5.1) mmol/L Chloride 101 (98-107) mmol/L Carbon Dioxide 23 (22-30) mmol/L Anion Gap 12 mmol/L BUN 15 (9-20) mg/dL Creatinine 1.48 H (0.66-1.25) mg/dL Est GFR (MDRD) Af Amer 57 (>60 ml/min/1.73 sqM) Est GFR (MDRD) Non-Af 47 (>60 ml/min/1.73 sqM) Glucose 135 H (74-99) mg/dL Calcium 9.9 (8.4-10.2) mg/dL Phosphorus 3.0 (2.5-4.5) mg/dL Magnesium 1.4 L (1.6-2.3) mg/dL Total Bilirubin 0.4 (0.2-1.3) mg/dL AST 25 (17-59) U/L ALT 41 (21-72) U/L Alkaline Phosphatase 114 (38-126) U/L Total Creatine Kinase 148 (55-170) U/L CK-MB (CK-2) 1.1 (0.0-2.4) ng/mL CK-MB (CK-2) Rel Index 0.7 Troponin I <0.012 (0.000-0.034) ng/mL Total Protein 7.7 (6.3-8.2) g/dL Albumin 4.0 (3.5-5.0) g/dL 05/29/17 Range/Units 16:20 WBC (3.8-10.6) k/uL RBC (4.30-5.90) m/uL Hgb (13.0-17.5) gm/dL Hct (39.0-53.0) % MCV (80.0-100.0) fL MCH (25.0-35.0) pg MCHC (31.0-37.0) g/dL RDW (11.5-15.5) % Plt Count (150-450) k/uL Neutrophils % % Lymphocytes % % Monocytes % % Eosinophils % % Basophils % % Neutrophils # (1.3-7.7) k/uL Lymphocytes # (1.0-4.8) k/uL Monocytes # (0-1.0) k/uL Eosinophils # (0-0.7) k/uL Basophils # (0-0.2) k/uL Anisocytosis PT 10.5 (9.0-12.0) sec INR 1.0 (<1.2) APTT 25.2 (22.0-30.0) sec Sodium (137-145) mmol/L Potassium (3.5-5.1) mmol/L Chloride (98-107) mmol/L Carbon Dioxide (22-30) mmol/L Anion Gap mmol/L BUN (9-20) mg/dL Creatinine (0.66-1.25) mg/dL Est GFR (MDRD) Af Amer (>60 ml/min/1.73 sqM) Est GFR (MDRD) Non-Af (>60 ml/min/1.73 sqM) Glucose (74-99) mg/dL Calcium (8.4-10.2) mg/dL Phosphorus (2.5-4.5) mg/dL Magnesium (1.6-2.3) mg/dL Total Bilirubin (0.2-1.3) mg/dL AST (17-59) U/L ALT (21-72) U/L Alkaline Phosphatase (38-126) U/L Total Creatine Kinase (55-170) U/L CK-MB (CK-2) (0.0-2.4) ng/mL CK-MB (CK-2) Rel Index Troponin I (0.000-0.034) ng/mL Total Protein (6.3-8.2) g/dL Albumin (3.5-5.0) g/dL Disposition Clinical Impression: Transient cerebral ischemia, History of stroke Disposition: OTHER INSTITUTION NOT DEFINED Condition: Fair Referrals: Rick Luke MD [Primary Care Provider] - 1-2 days - Out of Hospital Transfer - Req. Specs Out of Hospital Transfer - Requested Specifics: Other Emergency Center ([facility])
[2017-05-29 16:38] LABS: Anisocytosis Slight; Basophils % (A) 1 %; CH 30.5; CHCM 32.7; Eosinophils # (A) 0.2 k/uL (0-0.7); Eosinophils % (A) 3 %; HCT 32.5 % (39.0-53.0); HDW 2.99; HGB 10.4 gm/dL (13.0-17.5); Luc % (Auto) 3; Lymphocytes # (A) 1.8 k/uL (1.0-4.8); Lymphocytes % (A) 30 %; MCH 29.8 pg (25.0-35.0); MCHC 31.9 g/dL (31.0-37.0); MCV 93.4 fL (80.0-100.0); Mean Platelet Volume 7.7; Monocytes # (A) 0.3 k/uL (0-1.0); Monocytes % (A) 6 %; Neutrophils # (A) 3.5 k/uL (1.3-7.7); Neutrophils % (A) 58 %; RBC 3.48 m/uL (4.30-5.90); RDW 17.4 % (11.5-15.5); WBC 6.1 k/uL (3.8-10.6); WBC (Perox) 6.44
[2017-05-29 16:49] LABS: Calcium 9.9 mg/dL (8.4-10.2); Magnesium 1.4 mg/dL (1.6-2.3); Potassium 3.8 mmol/L (3.5-5.1); Total Bilirubin 0.4 mg/dL (0.2-1.3); Total Protein 7.7 g/dL (6.3-8.2)
[2017-05-29 16:50] LABS: Partial Thromboplastin Time 25.2 sec (22.0-30.0); Prothrombin Time 10.5 sec (9.0-12.0)
[2017-05-29 16:59] LABS: Creatine Kinase 148 U/L (55-170)
[2017-05-29 17:13] LABS: Creatine Kinase MB 1.1 ng/mL (0.0-2.4); Troponin I <0.012 ng/mL (0.000-0.034)
--- NOTE | 2017-05-29 18:03 | XR ---
EXAMINATION TYPE: XR chest 2V DATE OF EXAM: 05/29/2017 COMPARISON: 05/26/2017 HISTORY: Weakness TECHNIQUE: Frontal and lateral views of the chest are obtained. FINDINGS: Heart is normal. Thoracic aorta is atheromatous. Costophrenic angles are clear. There are no hilar masses. There are chest leads. Bony thorax is intact. IMPRESSION: Atheromatous aorta. No acute lung disease. No change.
--- NOTE | 2017-05-29 18:57 | CT ---
EXAMINATION TYPE: CT brain wo con DATE OF EXAM: 05/29/2017 COMPARISON: 05/26/2017 HISTORY: weakness CT DLP: 999.8 mGycm Automated exposure control for dose reduction was used. FINDINGS: There is moderate patchy hypodensity throughout the periventricular white matter. There is no mass ef fect nor midline shift. There is no sign of intracranial hemorrhage. The calvarium is intact. IMPRESSION: EXTENSIVE CHRONIC SMALL VESSEL ISCHEMIA. MULTIPLE INTERNAL CAPSULE LACUNAR INFARCTS. 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 NO CHANGE COMPARED TO LAST EXAM. NO DEFINITE ACUTE ABNORMALITY SEE N.
[2017-05-29 19:02] VITALS: PULSE 77; TEMP 97.9
[2017-05-29 19:18] VITALS: BP 124/75; RESP 20
== END 2017-05-29 19:47 | disposition short-term general hospital (02) ==
LOC: EC 16:08
DX: G45.9 Transient cerebral ischemic attack, unspecified (principal); K21.9 Gastro-esophageal reflux disease without esophagitis; E78.5 Hyperlipidemia, unspecified; I10 Essential (primary) hypertension; Z87.891 Personal history of nicotine dependence; Z79.82 Long term (current) use of aspirin; Z79.51 Long term (current) use of inhaled steroids; Z79.02 Long term (current) use of antithrombotics/antiplatelets; Z79.899 Other long term (current) drug therapy
CPT/HCPCS: 36415; 70450; 71020; 80053; 82550; 82553; 83735; 84100; 84484; 85025; 85610; 85730; 93005; 96360; 96361; 99285

== ENCOUNTER 2017-06-29 21:28 | Inpatient (IN) | payer MEDICARE, BC ==
[2017-06-29 22:03] LABS: Glucose,Whole Blood 139 mg/dL (75-99)
--- NOTE | 2017-06-29 22:05 | ED ---
General Adult HPI - General Chief complaint: Neuro Symptoms/Deficit Stated complaint: Knee swollen/On Blood thinner Time Seen by Provider: 06/29/17 22:05 Source: patient, RN notes reviewed, old records reviewed Mode of arrival: ambulatory Limitations: no limitations - History of Present Illness Initial comments: This is a 66-year-old male here for evaluation. Patient presents today for evaluation regarding altered mental status, history of TIAs, or left-sided facial droop, left leg weakness. Patient also has fever. Left leg swelling and edema. - Related Data Home Medications Medication Instructions Recorded Confirmed Aspirin EC [Ecotrin Low Dose] 81 mg PO QAM 05/26/17 06/29/17 Atorvastatin [Lipitor] 80 mg PO HS 05/26/17 06/29/17 Cholecalciferol [Vitamin D3] 1,000 unit PO QAM 05/26/17 06/29/17 Clopidogrel [Plavix] 75 mg PO QAM 05/26/17 06/29/17 Glycopyrrolate/Formoterol Fum 1 puff INHALATION RT-BID 05/26/17 06/29/17 [Bevespi Aerosphere Inhaler] Ipratropium-Albuterol Nebulize 3 ml INHALATION RT-BID 05/26/17 06/29/17 [Duoneb 0.5 mg-3 mg/3 ml Soln] Omeprazole 20 mg PO BID 05/26/17 06/29/17 Tamsulosin HCl [Flomax] 0.4 mg PO HS 05/26/17 06/29/17 amLODIPine [Norvasc] 10 mg PO QAM 05/26/17 06/29/17 Ferrous Sulfate [Feosol] 325 mg PO DAILY 06/29/17 06/29/17 Loratadine [Claritin] 10 mg PO DAILY 06/29/17 06/29/17 Nicotine 7Mg/24Hr Patch [Habitrol] 1 patch TRANSDERM DAILY 06/29/17 06/29/17 Previous Rx's Medication Instructions Recorded Cefuroxime [Ceftin] 250 mg PO BID #14 tablet 07/01/17 Allergies Allergy/AdvReac Type Severity Reaction Status Date / Time No Known Allergies Allergy Verified 06/29/17 22:59 Review of Systems ROS Statement: Those systems with pertinent positive or pertinent negative responses have been documented in the HPI. ROS Other: All systems not noted in ROS Statement are negative. 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 OCC EDEMA FEET. Current Gastric Ulcer. Stroke on 02/23/17. Peg tube placed which patient's spouse says hasn't been used in a month. History of Any Multi-Drug Resistant Organisms: None Reported Past Surgical History: Hernia Repair, Joint Replacement, Orthopedic Surgery Additional Past Surgical History / Comment(s): RT TOTAL KNEE Past Anesthesia/Blood Transfusion Reactions: No Reported Reaction Past Psychological History: No Psychological Hx Reported Smoking Status: Former smoker Past Alcohol Use History: Occasional Past Drug Use History: None Reported - Past Family History Mother Family Medical History: CVA/TIA, Diabetes Mellitus, Hyperlipidemia, Hypertension General Exam - General Exam Comments Initial Comments: NIH of 0 Limitations: no limitations General appearance: alert, in no apparent distress Head exam: Present: atraumatic, normocephalic, normal inspection Eye exam: Present: normal appearance, PERRL, EOMI. Absent: scleral icterus, conjunctival injection, periorbital swelling ENT exam: Present: normal exam, mucous membranes moist Neck exam: Present: normal inspection. Absent: tenderness, meningismus, lymphadenopathy Respiratory exam: Present: normal lung sounds bilaterally. Absent: respiratory distress, wheezes, rales, rhonchi, stridor Cardiovascular Exam: Present: regular rate, normal rhythm, normal heart sounds. Absent: systolic murmur, diastolic murmur, rubs, gallop, clicks GI/Abdominal exam: Present: soft, normal bowel sounds. Absent: distended, tenderness, guarding, rebound, rigid Extremities exam: Present: normal inspection, full ROM, normal capillary refill. Absent: tenderness, pedal edema, joint swelling, calf tenderness Back exam: Present: normal inspection Neurological exam: Present: alert, oriented X3, CN II-XII intact Psychiatric exam: Present: normal affect, normal mood Skin exam: Present: warm, dry, intact, normal color. Absent: rash Course Vital Signs 06/29/17 06/29/17 06/29/17 21:39 21:45 22:00 Temperature 100.5 F H 100.3 F H Pulse Rate 75 92 88 Pulse Rate [ Digital Media Representative ] Respiratory 18 18 18 Rate Blood Pressure 130/75 137/70 150/72 O2 Sat by Pulse 98 100 100 Oximetry 06/29/17 06/29/17 06/29/17 22:15 22:30 23:00 Temperature Pulse Rate 85 89 84 Pulse Rate [ Digital Media Representative ] Respiratory 18 18 18 Rate Blood Pressure 150/80 136/69 141/67 O2 Sat by Pulse 100 100 100 Oximetry 06/29/17 06/30/17 23:30 00:00 Temperature Pulse Rate 78 74 Pulse Rate [ 78 Digital Media Representative ] Respiratory 18 18 Rate Blood Pressure 136/67 128/66 O2 Sat by Pulse 100 99 Oximetry - Reevaluation(s) Reevaluation #1: Patient is not a TPA candidate secondary to onset of symptoms EKG Findings - EKG Comments: EKG Findings:: EKG shows normal sinus rhythm rate of 91, MD 1:30, QRS 86, QTC 428 Medical Decision Making - Medical Decision Making 66 male in the ER with slurred speech, weakness, headache. Woke with symptoms, patient CT is negative. Patient will be admitted for neurological evaluation and treatment - Lab Data Result diagrams: 06/29/17 22:29 07/01/17 05:34 Lab Results 06/29/17 06/29/17 06/29/17 Range/Units 22:01 22:15 22:29 WBC (3.8-10.6) k/uL RBC (4.30-5.90) m/uL Hgb (13.0-17.5) gm/dL Hct (39.0-53.0) % MCV (80.0-100.0) fL MCH (25.0-35.0) pg MCHC (31.0-37.0) g/dL RDW (11.5-15.5) % Plt Count (150-450) k/uL Neutrophils % % Lymphocytes % % Monocytes % % Eosinophils % % Basophils % % Neutrophils # (1.3-7.7) k/uL Lymphocytes # (1.0-4.8) k/uL Monocytes # (0-1.0) k/uL Eosinophils # (0-0.7) k/uL Basophils # (0-0.2) k/uL Anisocytosis PT (9.0-12.0) sec INR (<1.2) APTT (22.0-30.0) sec Sodium (137-145) mmol/L Potassium (3.5-5.1) mmol/L Chloride (98-107) mmol/L Carbon Dioxide (22-30) mmol/L Anion Gap mmol/L BUN (9-20) mg/dL Creatinine (0.66-1.25) mg/dL Est GFR (MDRD) Af Amer (>60 ml/min/1.73 sqM) Est GFR (MDRD) Non-Af (>60 ml/min/1.73 sqM) Glucose (74-99) mg/dL POC Glucose (mg/dL) 139 H (75-99) mg/dL POC Glu Commercial Field Inspector ID Flash Rocha Plasma Lactic Acid Del (0.7-2.0) mmol/L Calcium (8.4-10.2) mg/dL Phosphorus (2.5-4.5) mg/dL Magnesium (1.6-2.3) mg/dL Total Bilirubin (0.2-1.3) mg/dL AST (17-59) U/L ALT (21-72) U/L Alkaline Phosphatase (38-126) U/L Total Creatine Kinase 64 (55-170) U/L CK-MB (CK-2) 0.5 (0.0-2.4) ng/mL CK-MB (CK-2) Rel Index 0.8 Troponin I <0.012 (0.000-0.034) ng/mL C-Reactive Protein (<10.0) mg/L Total Protein (6.3-8.2) g/dL Albumin (3.5-5.0) g/dL Urine Color Yellow Urine Appearance Turbid (Clear) Urine pH 6.0 (5.0-8.0) Ur Specific [place] 1.021 (1.001-1.035) Urine Protein 2+ H (Negative) Urine Glucose (UA) Negative (Negative) Urine Ketones Trace H (Negative) Urine Blood Small H (Negative) Urine Nitrite Negative (Negative) Urine Bilirubin Negative (Negative) Urine Urobilinogen 3.0 (<2.0) mg/dL Ur Leukocyte Esterase Large H (Negative) Urine WBC >182 H (0-5) /hpf Urine WBC Clumps Many H (None) /hpf Ur Squamous Epith Cells 3 (0-4) /hpf Urine Bacteria Many H (None) /hpf Urine Mucus Many H (None) /hpf Urine Yeast (Budding) Few H (None) /hpf 06/29/17 06/29/17 06/29/17 Range/Units 22:29 22:29 22:29 WBC 11.1 H (3.8-10.6) k/uL RBC 3.00 L (4.30-5.90) m/uL Hgb 9.0 L (13.0-17.5) gm/dL Hct 27.2 L (39.0-53.0) % MCV 90.5 D (80.0-100.0) fL MCH 30.0 (25.0-35.0) pg MCHC 33.2 (31.0-37.0) g/dL RDW 17.5 H (11.5-15.5) % Plt Count 315 (150-450) k/uL Neutrophils % 75 % Lymphocytes % 17 % Monocytes % 5 % Eosinophils % 2 % Basophils % 0 % Neutrophils # 8.3 H (1.3-7.7) k/uL Lymphocytes # 1.9 (1.0-4.8) k/uL Monocytes # 0.5 (0-1.0) k/uL Eosinophils # 0.2 (0-0.7) k/uL Basophils # 0.0 (0-0.2) k/uL Anisocytosis Slight PT (9.0-12.0) sec INR (<1.2) APTT (22.0-30.0) sec Sodium 139 (137-145) mmol/L Potassium 3.3 L (3.5-5.1) mmol/L Chloride 104 (98-107) mmol/L Carbon Dioxide 23 (22-30) mmol/L Anion Gap 12 mmol/L BUN 19 (9-20) mg/dL Creatinine 1.40 H (0.66-1.25) mg/dL Est GFR (MDRD) Af Amer >60 (>60 ml/min/1.73 sqM) Est GFR (MDRD) Non-Af 51 (>60 ml/min/1.73 sqM) Glucose 132 H (74-99) mg/dL POC Glucose (mg/dL) (75-99) mg/dL POC Glu Commercial Field Inspector ID Plasma Lactic Acid Del 1.3 (0.7-2.0) mmol/L Calcium 9.2 (8.4-10.2) mg/dL Phosphorus 2.8 (2.5-4.5) mg/dL Magnesium 1.6 (1.6-2.3) mg/dL Total Bilirubin 0.3 (0.2-1.3) mg/dL AST 18 (17-59) U/L ALT 40 (21-72) U/L Alkaline Phosphatase 123 (38-126) U/L Total Creatine Kinase (55-170) U/L CK-MB (CK-2) (0.0-2.4) ng/mL CK-MB (CK-2) Rel Index Troponin I (0.000-0.034) ng/mL C-Reactive Protein 49.1 H (<10.0) mg/L Total Protein 6.8 (6.3-8.2) g/dL Albumin 3.6 (3.5-5.0) g/dL Urine Color Urine Appearance (Clear) Urine pH (5.0-8.0) Ur Specific [place] (1.001-1.035) Urine Protein (Negative) Urine Glucose (UA) (Negative) Urine Ketones (Negative) Urine Blood (Negative) Urine Nitrite (Negative) Urine Bilirubin (Negative) Urine Urobilinogen (<2.0) mg/dL Ur Leukocyte Esterase (Negative) Urine WBC (0-5) /hpf Urine WBC Clumps (None) /hpf Ur Squamous Epith Cells (0-4) /hpf Urine Bacteria (None) /hpf Urine Mucus (None) /hpf Urine Yeast (Budding) (None) /hpf 06/29/17 Range/Units 22:29 WBC (3.8-10.6) k/uL RBC (4.30-5.90) m/uL Hgb (13.0-17.5) gm/dL Hct (39.0-53.0) % MCV (80.0-100.0) fL MCH (25.0-35.0) pg MCHC (31.0-37.0) g/dL RDW (11.5-15.5) % Plt Count (150-450) k/uL Neutrophils % % Lymphocytes % % Monocytes % % Eosinophils % % Basophils % % Neutrophils # (1.3-7.7) k/uL Lymphocytes # (1.0-4.8) k/uL Monocytes # (0-1.0) k/uL Eosinophils # (0-0.7) k/uL Basophils # (0-0.2) k/uL Anisocytosis PT 10.7 (9.0-12.0) sec INR 1.1 (<1.2) APTT 27.0 (22.0-30.0) sec Sodium (137-145) mmol/L Potassium (3.5-5.1) mmol/L Chloride (98-107) mmol/L Carbon Dioxide (22-30) mmol/L Anion Gap mmol/L BUN (9-20) mg/dL Creatinine (0.66-1.25) mg/dL Est GFR (MDRD) Af Amer (>60 ml/min/1.73 sqM) Est GFR (MDRD) Non-Af (>60 ml/min/1.73 sqM) Glucose (74-99) mg/dL POC Glucose (mg/dL) (75-99) mg/dL POC Glu Commercial Field Inspector ID Plasma Lactic Acid Del (0.7-2.0) mmol/L Calcium (8.4-10.2) mg/dL Phosphorus (2.5-4.5) mg/dL Magnesium (1.6-2.3) mg/dL Total Bilirubin (0.2-1.3) mg/dL AST (17-59) U/L ALT (21-72) U/L Alkaline Phosphatase (38-126) U/L Total Creatine Kinase (55-170) U/L CK-MB (CK-2) (0.0-2.4) ng/mL CK-MB (CK-2) Rel Index Troponin I (0.000-0.034) ng/mL C-Reactive Protein (<10.0) mg/L Total Protein (6.3-8.2) g/dL Albumin (3.5-5.0) g/dL Urine Color Urine Appearance (Clear) Urine pH (5.0-8.0) Ur Specific [place] (1.001-1.035) Urine Protein (Negative) Urine Glucose (UA) (Negative) Urine Ketones (Negative) Urine Blood (Negative) Urine Nitrite (Negative) Urine Bilirubin (Negative) Urine Urobilinogen (<2.0) mg/dL Ur Leukocyte Esterase (Negative) Urine WBC (0-5) /hpf Urine WBC Clumps (None) /hpf Ur Squamous Epith Cells (0-4) /hpf Urine Bacteria (None) /hpf Urine Mucus (None) /hpf Urine Yeast (Budding) (None) /hpf - Radiology Data Radiology results: report reviewed (CT brain negative, chest x-ray negative), image reviewed Disposition Clinical Impression: TIA (transient ischemic attack), UTI (urinary tract infection), Fever Disposition: ADMITTED IP TO THIS HOSP Condition: Good
[2017-06-29] MEDS ORDERED: ACETAMINOPHEN IV (For NPO) 1,000 MG in EMPTY BAG 1 BAG IVPB STA (22:06)
[2017-06-29] MEDS ORDERED: SODIUM CHLORIDE 0.9% 1,000 ML IV STA ×2 (22:06)
[2017-06-29 22:39] LABS: Appearance,Urine Turbid (Clear); Bacteria,Urine Many /hpf; Bilirubin,Urine Negative (Negative); Glucose,Urine (UA) Negative (Negative); Ketones,Urine Trace (Negative); Leukocyte Esterase,Urine Large (Negative); Mucus,Urine Many /hpf; Nitrite,Urine Negative (Negative); Particle Count 79638; Protein,Urine 2+ (Negative); Specific Gravity,Urine 1.021 (1.001-1.035); Squamous Epithelial Cell,Urine 3 /hpf (0-4); UA Billing (MACRO vs. MICRO) MICRO; WBC,Urine >182 /hpf (0-5)
[2017-06-29 23:05] LABS: Anisocytosis Slight; Basophils % (A) 0 %; CH 29.4; CHCM 32.5; Eosinophils # (A) 0.2 k/uL (0-0.7); Eosinophils % (A) 2 %; HCT 27.2 % (39.0-53.0); HDW 2.76; Luc # (Auto) 0.24; Luc % (Auto) 2; Lymphocytes # (A) 1.9 k/uL (1.0-4.8); Lymphocytes % (A) 17 %; MCHC 33.2 g/dL (31.0-37.0); Mean Platelet Volume 6.8; Monocytes # (A) 0.5 k/uL (0-1.0); Monocytes % (A) 5 %; Neutrophils # (A) 8.3 k/uL (1.3-7.7); Neutrophils % (A) 75 %; RDW 17.5 % (11.5-15.5); WBC 11.1 k/uL (3.8-10.6); WBC (Perox) 11.03
[2017-06-29 23:08] LABS: MCV 90.5 fL (80.0-100.0)
[2017-06-29 23:13] LABS: INR 1.1 (<1.2); Prothrombin Time 10.7 sec (9.0-12.0)
[2017-06-29 23:17] LABS: ALT 40 U/L (21-72); AST 18 U/L (17-59); Alkaline Phosphatase 123 U/L (38-126); Anion Gap 12 mmol/L; Blood Urea Nitrogen 19 mg/dL (9-20); C Reactive Protein 49.1 mg/L (<10.0); Calcium 9.2 mg/dL (8.4-10.2); Carbon Dioxide 23 mmol/L (22-30); Chloride 104 mmol/L (98-107); Glucose 132 mg/dL (74-99); Magnesium 1.6 mg/dL (1.6-2.3); Non-African American GFR(MDRD) 51 (>60 ml/min/1.73 sqM); Phosphorous 2.8 mg/dL (2.5-4.5); Potassium 3.3 mmol/L (3.5-5.1); Sodium 139 mmol/L (137-145); Total Bilirubin 0.3 mg/dL (0.2-1.3); Total Protein 6.8 g/dL (6.3-8.2)
[2017-06-29 23:23] LABS: Creatine Kinase 64 U/L (55-170)
--- NOTE | 2017-06-29 23:26 | CT ---
EXAM: CT Head Without Intravenous Contrast CLINICAL HISTORY: Reason: weakness TECHNIQUE: Axial computed tomography images of the head/brain without intravenous contrast. CTDI is 59.58 mGy and DLP is 1034 mGy-cm. This CT exam was performed using one or more of the following dose reduction techniques: automated exposure control, adjustment of the mA and/or kV according to patient size, and/or use of iterative reconstruction technique. COMPARISON: CT head 04/28/17; CT angiogram head and neck 04/28/17 FINDINGS: Brain: Unchanged right frontal lobe hypodensities within white matter structures likely representing remote infarcts/microangiopathy. Unchanged bilateral basal ganglia old lacunar infarcts. Unchanged old cerebellar probable infarcts, left greater than right. No acute abnormality. No hemorrhage. No edema. Ventricles: Unremarkable. No ventriculomegaly. Bones/joints: Unremarkable. No acute fracture. Soft tissues: Unremarkable. Vasculature: Unchanged cerebrovascular atherosclerosis. Sinuses: Small sphenoid sinus air-fluid level. Mastoid air cells: Unremarkable as visualized. No mastoid effusion. IMPRESSION: 1. No evidence of acute transcortical infarct or acute intracranial hemorrhage. 2. Chronic ischemic findings, as described above. 3. Mild sphenoid sinusitis in the appropriate clinical setting.
[2017-06-29 23:37] LABS: Creatine Kinase MB 0.5 ng/mL (0.0-2.4); Troponin I <0.012 ng/mL (0.000-0.034)
[2017-06-29] MEDS ORDERED: ASPIRIN 325 MG TAB PO STA (23:42)
[2017-06-29] MEDS ORDERED: SODIUM CHLORIDE 0.9% 1,000 ML IV ONE (23:42)
[2017-06-29] MEDS ORDERED: SODIUM CHLORIDE 0.9% 500 ML IV STA (23:42)
--- NOTE | 2017-06-29 23:45 | XR ---
EXAM: XR Chest, 2 Views CLINICAL HISTORY: Reason: Weakness TECHNIQUE: Frontal and lateral views of the chest. COMPARISON: 05/29/2017 FINDINGS: Lungs: Bibasilar atelectasis and/or infiltrates, similar to prior study. Mild peribronchial cuffing is suggested, not seen on prior study, which can be seen in mild pulmonary edema versus small airways inflammatory disease. Pleural space: Unremarkable. No pneumothorax. Heart: Unremarkable. No cardiomegaly. Mediastinum: Unremarkable. Bones/joints: Stable osseous structures. Vasculature: Mild/moderately torturous descending thoracic aorta is again seen. IMPRESSION: 1. Bibasilar atelectasis and/or infiltrates, similar to prior study. 2. Mild peribronchial cuffing is suggested, not seen on prior study, which can be seen in mild pulmonary edema versus small airways inflammatory disease.
[2017-06-30 06:28] LABS: Cholesterol 127 mg/dL (<200); HDL Cholesterol 46 mg/dL (40-60)
[2017-06-30] MEDS ORDERED: Potassium Replacement Protocol 1 EACH MISC MISCELLANE PRN (07:00)
[2017-06-30] MEDS ORDERED: NON-FORMULARY DRUG (Glycopyrrolate/Formoterol Fum [Bevespi Aerosphere Inhaler] 1 PUFF) INHALATION SCH (08:00)
[2017-06-30] MEDS: IPRATROPIUM-ALBUTEROL 3 ML NEB INHALATION SCH ×2 (08:06→19:26)
[2017-06-30] MEDS: SODIUM CHLORIDE 0.9% 1,000 ML IV SCH ×3 (09:19→20:41)
[2017-06-30] MEDS: POTASSIUM CHLORIDE ER 20 MEQ TAB.ER PO SCH (09:20)
[2017-06-30] MEDS: FERROUS SULFATE 325 MG TAB PO SCH (09:20)
[2017-06-30] MEDS: CHOLECALCIFEROL 1,000 UNIT TAB PO SCH (09:20)
[2017-06-30] MEDS: amLODIPine 10 MG TAB PO SCH (09:20)
[2017-06-30] MEDS: CLOPIDOGREL 75 MG TAB PO SCH (09:20)
[2017-06-30] MEDS: ASPIRIN 81 MG CHEW PO SCH (09:20)
[2017-06-30] MEDS: PANTOPRAZOLE 40 MG TABLET PO SCH ×2 (09:20→16:33)
[2017-06-30] MEDS: ENOXAPARIN 40 MG/0.4 ML SYRINGE SQ SCH (09:21)
[2017-06-30] MEDS: NICOTINE 7MG/24HR PATCH TRANSDERM SCH (09:21)
[2017-06-30] MEDS: LORATADINE 10 MG TAB PO SCH (09:21)
[2017-06-30] MEDS ORDERED: Magnesium Replacement Protocol 1 EACH MISC MISCELLANE PRN (12:30)
--- NOTE | 2017-06-30 12:36 | P.HPIM ---
History of Present Illness H&P Date: 06/30/17 Chief Complaint: Sleepy History of present complaint: This is a 66-year-old patient of Dr. Luke. Chronic stable medical conditions include hypertension, hyperlipidemia, osteoporosis, GERD, COPD, gastric ulcer,. Patient had multiple strokes in the past. Patient had gone down to [facility] where he is found to have focal severe right M2 origin stenosis. According to patient he had angioplasty of this done. Patient's sister is the bedside. She states yesterday her other sister was at home with the patient. Eleazar was more sleepy than usual and has decided to bring the patient in. The patient stated that temporally had some tingling in the left leg and then dissipated. The patient uses a walker at the bedside. Patient had some pain in the right knee that he's had replacement before which are now since resolved. Denies any change in vision. Denies any headache. Denies any other focal weakness. Denies any fever. GEN.: Tired EYES: None HEENT: None NECK: None RESPIRATORY: None CARDIOVASCULAR: None GASTROINTESTINAL: None GENITOURINARY: Some urinary frequency MUSCULOSKELETAL: Pain in different joints LYMPHATICS: None HEMATOLOGICAL: None PSYCHIATRY: Sometimes forgetful NEUROLOGICAL: None Past medical history: Multiple strokes with focal severe right M2 origin stenosis with angioplasty, hypertension, hyperlipidemia, osteoarthritis, GERD, COPD, right third toe osteomyelitis, gastric ulcer, PEG tube in the past Past surgical history: Hernia repair, joint replacement, orthopedic surgery, right total knee replacement Home medications: Reviewed in the electronic records ALLERGIES: None Social history: Patient smoked a pack day for close to 38 years. Stopped about 5 months ago. Lives with . Uses a walker. Alcohol occasional Family history: Stroke, diabetes, hyperlipidemia, hypertension VITAL SIGNS: 100.5, 75, 18, 1:30/75, 98% room air GENERAL: Average built, laying in bed tired appearing. EYES: Pupils equal. Conjunctiva normal. HEENT: External appearance of nose and ears normal, oral cavity grossly normal. NECK: JVD not raised; masses not palpable. HEART: First and second heart sounds are normal; no edema. LUNGS: Respiratory rate normal; decreased breath sounds. ABDOMEN: Soft, nontender, liver spleen not palpable, no masses palpable. LYMPHATICS: No lymph nodes palpable in the axilla and neck. PSYCH: [Alert and oriented x3; mood and affect tired appearing l. NEUROLOGICAL: Cranial nerves grossly intact; no facial asymmetry, power and sensation grossly intact. MUSCULAR skeletal: No tenderness in the right knee, and a slightly decreased range of motion and scar from previous surgery Investigations: White count 11.1, hemoglobin 9, potassium 3.3, BMI 19, creatinine 1.4 UA positive for leukoesterase WBC Chest x-rays results noted Computed tomography scan of the brain-no acute changes reported Assessment: -Acute metabolic encephalopathy and presentation from underlying UTI -History of multiple strokes with focal severe R M2 origin stenosis without dictation -Essential hypertension -Essential hypertension -Hyperlipidemia -Primary osteoarthritis multiple joints bilateral -COPD in an ex-smoker -Chronic gait dysfunction uses a walker Plan: Home medications be resumed. Started on IV antibiotics. This does not appear to be neurological presentation. Care was discussed with the patient and sister at the bedside. 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 OCC EDEMA FEET. Current Gastric Ulcer. Stroke on 02/23/17. Peg tube placed which patient's spouse says is only flushed History of Any Multi-Drug Resistant Organisms: None Reported Past Surgical History: Hernia Repair, Joint Replacement, Orthopedic Surgery Additional Past Surgical History / Comment(s): RT TOTAL KNEE Past Anesthesia/Blood Transfusion Reactions: No Reported Reaction Past Psychological History: No Psychological Hx Reported Smoking Status: Former smoker Past Alcohol Use History: Occasional Additional Past Alcohol Use History / Comment(s): SMOKED < 1PPD FOR 38 YEARS EST. Past Drug Use History: None Reported - Past Family History Mother Family Medical History: CVA/TIA, Diabetes Mellitus, Hyperlipidemia, Hypertension Medications and Allergies Home Medications Medication Instructions Recorded Confirmed Type Aspirin EC [Ecotrin Low Dose] 81 mg PO QAM 05/26/17 06/29/17 History Atorvastatin [Lipitor] 80 mg PO HS 05/26/17 06/29/17 History Cholecalciferol [Vitamin D3] 1,000 unit PO QAM 05/26/17 06/29/17 History Clopidogrel [Plavix] 75 mg PO QAM 05/26/17 06/29/17 History Glycopyrrolate/Formoterol Fum 1 puff INHALATION RT-BID 05/26/17 06/29/17 History [Bevespi Aerosphere Inhaler] Ipratropium-Albuterol Nebulize 3 ml INHALATION RT-BID 05/26/17 06/29/17 History [Duoneb 0.5 mg-3 mg/3 ml Soln] Omeprazole 20 mg PO BID 05/26/17 06/29/17 History Tamsulosin HCl [Flomax] 0.4 mg PO HS 05/26/17 06/29/17 History amLODIPine [Norvasc] 10 mg PO QAM 05/26/17 06/29/17 History Ferrous Sulfate [Feosol] 325 mg PO DAILY 06/29/17 06/29/17 History Loratadine [Claritin] 10 mg PO DAILY 06/29/17 06/29/17 History Nicotine 7Mg/24Hr Patch [Habitrol 1 patch TRANSDERM DAILY 06/29/17 06/29/17 History 7Mg/24Hr Patch] Allergies Allergy/AdvReac Type Severity Reaction Status Date / Time No Known Allergies Allergy Verified 06/29/17 22:59 Results CBC & Chem 7: 06/29/17 22:29 06/29/17 22:29
[2017-06-30] MEDS: MAGNESIUM SULFATE-D5W PMX 1 GM in DEXTROSE/WATER 1 100ML.BAG IVPB SCH ×2 (13:51→15:48)
[2017-06-30] MEDS ORDERED: POTASSIUM CHLORIDE ER 20 MEQ TAB.ER PO SCH (15:00)
[2017-06-30] MEDS ORDERED: ATORVASTATIN 80 MG TAB PO SCH (21:00)
[2017-06-30] MEDS ORDERED: TAMSULOSIN 0.4 MG CAP.ER.24H PO SCH (21:00)
--- NOTE | 2017-06-30 23:38 | P.CNNES ---
History of Present Illness Consult date: 06/30/17 Requesting physician: Oni Coulter Reason for Consult: CVA Chief complaint: Left leg weakness History of Present Illness: Patient is a 66-year-old male being consult to by neurology for left lower extremity weakness as well as sensation of heaviness. Patient states that for the last several days he has had intermittent waxing and waning heaviness primarily below the ankle distally with intermittent swelling. He also states that his left lower extremity feels weaker than normal. Patient did suffer a stroke in January 2017 with left-sided deficits remaining from previous. Provider observed left perioral drooping which patient states is residual from previous event but could not quantify the extent. Patient denies any distinctly unilateral rising deficits. Denies dizziness, blurred vision, slurred speech, difficulty swallowing, difficulty ambulating or other focal neurological deficits. Patient does have a history of severe M2 stenosis with angioplasty. Patient did have a CT head without contrast which noted no evidence of acute transcortical infarct or acute intracranial hemorrhage. Chronic ischemic findings. Mild sphenoid sinusitis. Further notations included unchanged right frontal lobe hypodensities within white matter structures likely representing remote infarct/microangiopathy. Unchanged bilateral basal ganglia old lacunar infarcts. Unchanged old cerebellar probable infarcts, left greater than right. No acute abnormality. No hemorrhage. No edema. Vasculature noted unchanged cerebrovascular atherosclerosis. At contact, the patient was supine in bed, resting in no acute distress. Patient was alert and oriented 3. Patient staed upon exam, symptoms have resolved. Patient has no increased difficulty with mobility. Review of Systems systems not noted previously or negative Past Medical History Past Medical History: CVA/TIA, GERD/Reflux, Hyperlipidemia, Hypertension, Musculoskeletal Disorder Additional Past Medical History / Comment(s): 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 OCC EDEMA FEET. Current Gastric Ulcer. Stroke on 02/23/17. Peg tube placed which patient's spouse says is only flushed History of Any Multi-Drug Resistant Organisms: None Reported Past Surgical History: Hernia Repair, Joint Replacement, Orthopedic Surgery Additional Past Surgical History / Comment(s): RT TOTAL KNEE Past Anesthesia/Blood Transfusion Reactions: No Reported Reaction Past Psychological History: No Psychological Hx Reported Smoking Status: Former smoker Past Alcohol Use History: Occasional Additional Past Alcohol Use History / Comment(s): SMOKED < 1PPD FOR 38 YEARS EST. Past Drug Use History: None Reported - Past Family History Mother Family Medical History: CVA/TIA, Dementia, Diabetes Mellitus, Hyperlipidemia, Hypertension Medications and Allergies Home Medications Medication Instructions Recorded Confirmed Type Aspirin EC [Ecotrin Low Dose] 81 mg PO QAM 05/26/17 06/29/17 History Atorvastatin [Lipitor] 80 mg PO 05/26/17 06/29/17 History Cholecalciferol [Vitamin D3] 1,000 unit PO QAM 05/26/17 06/29/17 History Clopidogrel [Plavix] 75 mg PO QAM 05/26/17 06/29/17 History Glycopyrrolate/Formoterol Fum 1 puff INHALATION RT-BID 05/26/17 06/29/17 History [Bevespi Aerosphere Inhaler] Ipratropium-Albuterol Nebulize 3 ml INHALATION RT-BID 05/26/17 06/29/17 History [Duoneb 0.5 mg-3 mg/3 ml Soln] Omeprazole 20 mg PO BID 05/26/17 06/29/17 History Tamsulosin HCl [Flomax] 0.4 mg PO 05/26/17 06/29/17 History amLODIPine [Norvasc] 10 mg PO [facility] 05/26/17 06/29/17 History Ferrous Sulfate [Feosol] 325 mg PO DAILY 06/29/17 06/29/17 History Loratadine [Claritin] 10 mg PO DAILY 06/29/17 06/29/17 History Nicotine 7Mg/24Hr Patch [Habitrol 1 patch TRANSDERM DAILY 06/29/17 06/29/17 History 7Mg/24Hr Patch] Allergies Allergy/AdvReac Type Severity Reaction Status Date / Time No Known Allergies Allergy Verified 06/29/17 22:59 Physical Examination - Vital Signs Vital Signs: Vital Signs Temp Pulse Pulse Resp BP BP Pulse Ox 06/30/17 21:20 99 16 06/30/17 20:00 98.2 F 99 16 135/71 100 06/30/17 19:39 80 06/30/17 19:26 78 97 06/30/17 16:45 16 06/30/17 16:25 99 F 84 16 142/81 100 06/30/17 11:30 84 12 142/78 100 06/30/17 09:17 96.7 F L 80 12 130/79 98 06/30/17 09:15 12 06/30/17 08:18 76 06/30/17 08:05 76 98 06/30/17 04:00 78 18 06/30/17 03:45 97.7 F 78 18 142/83 99 06/30/17 01:17 96.9 F L 71 18 132/71 100 06/30/17 00:56 97.8 F 06/30/17 00:00 74 78 18 128/66 99 06/29/17 23:30 78 18 136/67 100 Intake and Output 06/30/17 06/30/17 07/01/17 14:59 22:59 06:59 Intake Total 100 Output Total 200 Balance -100 Intake: Oral 100 Output: Urine 200 Other: Voiding Method Urinal Urinal Diaper Diaper Incontinent # Voids 1 1 Constitutional: AOx3, cooperative HEENT: NC/AT, left facial asymmetry is seen. Throat: Supple, no masses Respiratory: No increased work of breathing Cardiac: Regular rate and Rhythm GI: non tender, non distended Musculoskeletal: Air Marshal strengths are unequal bilaterally left 4-/5, right 5/5, Lower extremity strengths are unequal bilaterally at left 4-/5, right 5/5. Neurological: CN II-XII in tact, patient was AOx3, speech and language are normal, weakness of left foot but able to use LLE without difficulty, no resistance noted, no seizure activity note on physical exam. Sensation was normal. Integementary: no rash, no erythema Psychiatric: mood and affect appropriat Results - Laboratory Findings CBC and BMP: 06/29/17 22:29 06/30/17 14:03 Abnormal Lab Findings: Abnormal Labs 06/29/17 06/29/17 06/29/17 22:01 22:15 22:29 WBC 11.1 H RBC 3.00 L Hgb 9.0 L Hct 27.2 L RDW 17.5 H Neutrophils # 8.3 H Potassium Creatinine Glucose POC Glucose (mg/dL) 139 H C-Reactive Protein Urine Protein 2+ H Urine Ketones Trace H Urine Blood Small H Ur Leukocyte Esterase Large H Urine WBC >182 H Urine WBC Clumps Many H Urine Bacteria Many H Urine Mucus Many H Urine Yeast (Budding) Few H 06/29/17 22:29 WBC RBC Hgb Hct RDW Neutrophils # Potassium 3.3 L Creatinine 1.40 H Glucose 132 H POC Glucose (mg/dL) C-Reactive Protein 49.1 H Urine Protein Urine Ketones Urine Blood Ur Leukocyte Esterase Urine WBC Urine WBC Clumps Urine Bacteria Urine Mucus Urine Yeast (Budding) - Diagnostic Findings Additional findings: imaging as noted in HPI Assessment and Plan (1) Left leg weakness Status: Acute (2) UTI (urinary tract infection) Status: Acute (3) Hypertension Status: Acute Plan: 1. Lower extremity weaknessleft: Patient has left lower extremity weakness that is confined to the ankle and distally. Patients edema and tingling have resolved since arrival. Patient stated that there were no new symptoms compared to his residual deficits from January 2017 CVA. Patient has had increased weakness and heaviness to the foot area only. CT brain completed prior to evaluation. Lipid panel is within normal limits. Patient is on Plavix, Lipitor and aspirin. Continue medications pre-existing regimen. We'll reassess patient again tomorrow for any new or changed underlying etiology. Neuro checks every 4 hours. symptoms currently experienced could be related to patient's underlying UTI. 2. Urinary tract infection: Management per primary team, continue to address underlying condition.
[2017-06-30] MEDS ORDERED: ASPIRIN 325 MG TAB PO SCH (23:43)
[2017-07-01] MEDS: SODIUM CHLORIDE 0.9% 1,000 ML IV SCH (05:52)
[2017-07-01 06:37] LABS: Anion Gap 9 mmol/L; Blood Urea Nitrogen 9 mg/dL (9-20); Calcium 8.9 mg/dL (8.4-10.2); Carbon Dioxide 24 mmol/L (22-30); Chloride 106 mmol/L (98-107); Glucose 82 mg/dL (74-99); Magnesium 1.7 mg/dL (1.6-2.3); Non-African American GFR(MDRD) >60 (>60 ml/min/1.73 sqM); Potassium 3.7 mmol/L (3.5-5.1); Sodium 139 mmol/L (137-145)
[2017-07-01] MEDS: PANTOPRAZOLE 40 MG TABLET PO SCH ×2 (06:44→17:08)
[2017-07-01] MEDS: IPRATROPIUM-ALBUTEROL 3 ML NEB INHALATION SCH (08:29)
[2017-07-01 08:56] VITALS: TEMP 97.8
[2017-07-01] MEDS ORDERED: POTASSIUM CHLORIDE ER 20 MEQ TAB.ER PO SCH (09:00)
[2017-07-01] MEDS: CLOPIDOGREL 75 MG TAB PO SCH (09:26)
[2017-07-01] MEDS: NICOTINE 7MG/24HR PATCH TRANSDERM SCH (09:26)
[2017-07-01] MEDS: MAGNESIUM SULFATE-D5W PMX 1 GM in DEXTROSE/WATER 1 100ML.BAG IVPB SCH ×2 (09:26→10:45)
[2017-07-01] MEDS: ENOXAPARIN 40 MG/0.4 ML SYRINGE SQ SCH (09:26)
[2017-07-01] MEDS: CHOLECALCIFEROL 1,000 UNIT TAB PO SCH (09:26)
[2017-07-01] MEDS: amLODIPine 10 MG TAB PO SCH (09:26)
[2017-07-01] MEDS: FERROUS SULFATE 325 MG TAB PO SCH (09:26)
[2017-07-01] MEDS: ASPIRIN 81 MG CHEW PO SCH (09:26)
[2017-07-01] MEDS: LORATADINE 10 MG TAB PO SCH (09:27)
[2017-07-01 12:07] VITALS: RESP 16
--- NOTE | 2017-07-01 13:17 | P.PN ---
Progress Note - Text DATE OF SERVICE: 07/01/2017 PRESENTING COMPLAINT: Sleepy HISTORY OF PRESENT ILLNESS: 66-year-old patient who has a recent history of angioplasty for a severe right M2 origin stenosis. More sleepy than usual patient was not responding well family decided to bring the patient in. INTERVAL HISTORY: 07/01/2017: Patient sitting up in bed resting quietly, appears comfortable. Easily arousable, ambulatory with assistance, continues to have some left foot weakness. Tolerating his diet eating between 50 and 75% of his meal. Last BM 06/30/2017. REVIEW OF SYSTEMS: Done for constitutional ,cardiovascular, GI, pulmonary, neurologic with relevant findings as above. CURRENT MEDICATIONS Aspirin, Lipitor, ceftriaxone, Plavix, Lovenox, Claritin, nicotine patch, Protonix, Flomax. PHYSICAL EXAM VITAL SIGNS: Temperature 97.8, pulse 88 respirations 12, blood pressure 137/75 oxygen saturation 98% on room air. GENERAL APPEARANCE: Lying in bed, appears comfortable. EYES: Pupils equal. Conjunctiva normal. NECK: JVD not raised. Mass not palpable. RESPIRATORY: Respiratory effort normal. Lungs diminished bilaterally to auscultation. CARDIOVASCULAR: First and second sounds normal. No edema. ABDOMEN: Soft. Liver and spleen not palpable. No tenderness. No mass palpable. PSYCHIATRY: Alert and oriented x3. Mood and affect normal. NEUROLOGICAL: Cranial nerves grossly intact. No facial asymmetry. left foot weakness power and strength in left leg 5 out of 5 INVESTIGATIONS: BMP unremarkable. ASSESSMENT: -Acute metabolic encephalopathy and presentation from underlying UTI, improving -History of multiple strokes with focal severe R M2 origin stenosis without dictation -Essential hypertension -Hyperlipidemia -Primary osteoarthritis multiple joints bilateral -COPD in an ex-smoker -Chronic gait dysfunction uses a walker PLAN: Continue current antibiotic therapy for UTI, neurology will reexamine the patient today although this presentation does not appear to be neurologic in origin. Discharge planning in the next 24-48 hours. Plan of care discussed with the patient at the bedside is in agreement. We will continue to follow closely. RESEARCH ASSOCIATE PROFESSOR statement: Patient was seen and examined by nurse practitioner Yudy Mckay and all elements of the case discussed with attending Dr. Dexter
[2017-07-01 15:39] VITALS: BMI 23.5
[2017-07-01 18:16] VITALS: BP 146/78; PULSE 80
--- NOTE | 2017-07-02 18:43 | DS ---
DISCHARGE SUMMARY DATE OF ADMISSION: 06/29/17. DATE OF DISCHARGE: 07/01/17 FINAL DIAGNOSIS: 1. Acute metabolic encephalopathy from urinary tract infection. 2. Acute urinary tract infection from gram-negative organism. 3. History of multiple strokes with focal severe or M2 origin stenosis with history of dilatation with prior angioplasty. 4. Essential hypertension. 5. Hyperlipidemia. 6. Primary osteoarthritis multiple joints bilateral. 7. Chronic obstructive pulmonary disease in an ex-smoker. 8. Chronic gait dysfunction, uses a walker. HOSPITAL COURSE: This patient multiple strokes before as above with prior angioplasty done at [facility]. Presented with little bit of lethargy felt to be encephalopathy due to underlying UTI. Patient is put on IV ceftriaxone to which he has responded really well. By the time of discharge, he is afebrile. Doing well. Tolerating a diet. Care was discussed with patient's sister at the bedside. PHYSICAL EXAMINATION: On examination lungs decreased breath sounds. Cardiovascular 1st and 2nd sounds normal. DISCHARGE MEDICATIONS: 1. Aspirin 81 mg a day. 2. Lipitor 80 mg q.h.s. 3. Vitamin D3 1000 units p.o. daily. 4. Plavix 75 mg a day. 5. 1 puff b.i.d. 6. DuoNeb b.i.d. 7. Omeprazole 20 mg b.i.d. 8. Flomax 0.4 mg p.o. q.8h hours. 9. Norvasc 10 mg p.o. daily. 10.Iron 325 p.o. daily. 11.Claritin 10 mg p.o. daily. 12.Nicotine 7 mg patch daily. 13.Ceftin 250 mg p.o. b.i.d., 14 tablets. Follow up with Dr. Luke in 3 days. Patient to follow up with neurologist. Labs, CBC in 3 days. MMODL / IJN: [id number] /
== END 2017-07-01 18:47 | disposition home health service (06) | DRG 71 ==
LOC: EC 21:28 → 6SEL 23:42
PROVIDERS: ADMIT Hospitalist; ATTEND Hospitalist
DX: G93.41 Metabolic encephalopathy (principal); N39.0 Urinary tract infection, site not specified; I66.9 Occlusion and stenosis of unspecified cerebral artery; J44.9 Chronic obstructive pulmonary disease, unspecified; I10 Essential (primary) hypertension; Z96.651 Presence of right artificial knee joint; K21.9 Gastro-esophageal reflux disease without esophagitis; E78.5 Hyperlipidemia, unspecified; M81.0 Age-related osteoporosis without current pathological fracture; R35.0 Frequency of micturition; R26.9 Unspecified abnormalities of gait and mobility; M19.91 Primary osteoarthritis, unspecified site; J32.3 Chronic sphenoidal sinusitis; R53.1 Weakness; R29.810 Facial weakness; B96.89 Other specified bacterial agents as the cause of diseases classified elsewhere; Z86.73 Personal history of transient ischemic attack (TIA), and cerebral infarction without residual deficits; Z87.19 Personal history of other diseases of the digestive system; Z79.82 Long term (current) use of aspirin; Z87.11 Personal history of peptic ulcer disease; Z87.891 Personal history of nicotine dependence; Z79.899 Other long term (current) drug therapy; Z79.02 Long term (current) use of antithrombotics/antiplatelets; Z82.3 Family history of stroke; Z82.49 Family history of ischemic heart disease and other diseases of the circulatory system; Z83.3 Family history of diabetes mellitus; Z98.61 Coronary angioplasty status
CPT/HCPCS: 36415; 70450; 71020; 80048; 80053; 80061; 81001; 82550; 82553; 83605; 83735; 84100; 84132; 84484; 85025; 85610; 85730; 86140; 87040; 87077; 87086; 87186; 93005; 94640; 94760; 96365; 96366; 96368; 99285

== ENCOUNTER 2017-07-05 18:32 | Observation (INO) | payer MEDICARE, BC ==
[2017-07-05 18:48] LABS: Glucose,Whole Blood 126 mg/dL (75-99)
[2017-07-05 19:03] LABS: Anisocytosis Slight; Basophils # (A) 0.1 k/uL (0-0.2); Basophils % (A) 1 %; CH 29.2; Eosinophils # (A) 0.3 k/uL (0-0.7); Eosinophils % (A) 5 %; HCT 28.6 % (39.0-53.0); HDW 2.81; HGB 9.1 gm/dL (13.0-17.5); Hypochromasia Slight; Luc # (Auto) 0.24; Luc % (Auto) 4; Lymphocytes # (A) 2.1 k/uL (1.0-4.8); Lymphocytes % (A) 36 %; MCH 29.1 pg (25.0-35.0); MCHC 31.7 g/dL (31.0-37.0); MCV 91.7 fL (80.0-100.0); Mean Platelet Volume 6.9; Monocytes # (A) 0.3 k/uL (0-1.0); Monocytes % (A) 6 %; Neutrophils # (A) 2.8 k/uL (1.3-7.7); Neutrophils % (A) 48 %; RBC 3.12 m/uL (4.30-5.90); RDW 17.7 % (11.5-15.5); WBC 5.8 k/uL (3.8-10.6)
[2017-07-05 19:11] LABS: Calcium 9.3 mg/dL (8.4-10.2); Total Bilirubin 0.2 mg/dL (0.2-1.3); Total Protein 7.1 g/dL (6.3-8.2)
[2017-07-05 19:14] LABS: Partial Thromboplastin Time 24.3 sec (22.0-30.0); Prothrombin Time 10.1 sec (9.0-12.0)
[2017-07-05 19:23] LABS: Creatine Kinase 69 U/L (55-170)
[2017-07-05 19:35] LABS: Creatine Kinase MB 0.7 ng/mL (0.0-2.4); Troponin I <0.012 ng/mL (0.000-0.034)
--- NOTE | 2017-07-05 20:04 | CT ---
EXAMINATION TYPE: CT brain wo con DATE OF EXAM: 07/05/2017 COMPARISON: 06/29/2017 CT HISTORY: Altered mental status. CT DLP: 943.80 mGycm. Automated exposure control for dose reduction was used. FINDINGS: There is no definite new attenuation defect, no acute intracranial hemorrhage, mass effect, or mass e ffect. The previously seen low attenuation within the tipton radiata and centrum semiovale is redemo nstrated. The ventricles and sulci are within normal limits in size. The calvarium is intact. The globes and orbits are unremarkable. The mastoid sinus air cells and midd le ear cavities and paranasal sinuses are clear. Prominent cerumen is incidentally noted within the left external auditory canal. IMPRESSION: NO ACUTE PROCESS.
--- NOTE | 2017-07-05 20:15 | XR ---
EXAMINATION TYPE: XR chest 2V DATE OF EXAM: 07/05/2017 COMPARISON: 12/08/2016 HISTORY: Altered mental status TECHNIQUE: Frontal and lateral views of the chest are obtained. FINDINGS: There is no pulmonary edema or focal air space opacity, and no pleural effusion or pneumothorax. The cardiac silhouette size is top normal in size. The aortic shadow is tortuous and ectatic and can be characterized using CT. Skeletal structures and soft tissues are unremarkable. IMPRESSION: 1. NO ACUTE PROCESS. 2. THORACIC AORTIC ECTASIA AND TORTUOSITY.
[2017-07-05] MEDS ORDERED: NALOXONE 0.4 MG/ML 1 ML VIAL IV PRN (20:22)
--- NOTE | 2017-07-05 20:22 | ED ---
Altered Mental Status HPI - General Chief Complaint: Altered Mental Status Stated Complaint: altered Time Seen by Provider: 07/05/17 18:48 Source: patient, family, EMS Mode of arrival: EMS Limitations: no limitations - History of Present Illness Initial Comments: Patient presents after a syncopal episode. Patient lost consciousness. He sustained no injuries. He was sitting down at the time he passed out. Patient has no chest pain or shortness of breath. He has no lightheadedness or dizziness at this time. He does not have a headache. He has no neck pain or stiffness. Patient has a history of multiple strokes in the past. - Related Data Home Medications Medication Instructions Recorded Confirmed Aspirin EC [Ecotrin Low Dose] 81 mg PO QAM 05/26/17 07/05/17 Atorvastatin [Lipitor] 80 mg PO HS 05/26/17 07/05/17 Cholecalciferol [Vitamin D3] 1,000 unit PO QAM 05/26/17 07/05/17 Clopidogrel [Plavix] 75 mg PO QAM 05/26/17 07/05/17 Glycopyrrolate/Formoterol Fum 1 puff INHALATION RT-BID 05/26/17 07/05/17 [Bevespi Aerosphere Inhaler] Ipratropium-Albuterol Nebulize 3 ml INHALATION RT-BID 05/26/17 07/05/17 [Duoneb 0.5 mg-3 mg/3 ml Soln] Omeprazole 20 mg PO BID 05/26/17 07/05/17 Tamsulosin HCl [Flomax] 0.4 mg PO HS 05/26/17 07/05/17 amLODIPine [Norvasc] 10 mg PO QAM 05/26/17 07/05/17 Ferrous Sulfate [Feosol] 325 mg PO DAILY 06/29/17 07/05/17 Loratadine [Claritin] 10 mg PO DAILY 06/29/17 07/05/17 Nicotine 7Mg/24Hr Patch [Habitrol] 1 patch TRANSDERM DAILY 06/29/17 07/05/17 Previous Rx's Medication Instructions Recorded Cefuroxime [Ceftin] 250 mg PO BID #14 tablet 07/01/17 Allergies Allergy/AdvReac Type Severity Reaction Status Date / Time No Known Allergies Allergy Verified 07/05/17 19:14 Review of Systems ROS Statement: Those systems with pertinent positive or pertinent negative responses have been documented in the HPI. ROS Other: All systems not noted in ROS Statement are negative. 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 OCC EDEMA FEET. Current Gastric Ulcer. Stroke on 02/23/17. Peg tube placed which patient's spouse says hasn't been used in a month. History of Any Multi-Drug Resistant Organisms: None Reported Past Surgical History: Hernia Repair, Joint Replacement, Orthopedic Surgery Additional Past Surgical History / Comment(s): RT TOTAL KNEE Past Anesthesia/Blood Transfusion Reactions: No Reported Reaction Past Psychological History: No Psychological Hx Reported Smoking Status: Former smoker Past Alcohol Use History: Occasional Past Drug Use History: None Reported - Past Family History Mother Family Medical History: CVA/TIA, Diabetes Mellitus, Hyperlipidemia, Hypertension General Exam Limitations: no limitations General appearance: alert, in no apparent distress Head exam: Present: atraumatic, normocephalic, normal inspection Eye exam: Present: normal appearance, PERRL, EOMI. Absent: scleral icterus, conjunctival injection, periorbital swelling ENT exam: Present: normal exam, mucous membranes moist Neck exam: Present: normal inspection. Absent: tenderness, meningismus, lymphadenopathy Respiratory exam: Present: normal lung sounds bilaterally. Absent: respiratory distress, wheezes, rales, rhonchi, stridor Cardiovascular Exam: Present: regular rate, normal rhythm, normal heart sounds. Absent: systolic murmur, diastolic murmur, rubs, gallop, clicks GI/Abdominal exam: Present: soft, normal bowel sounds. Absent: distended, tenderness, guarding, rebound, rigid Extremities exam: Present: normal inspection, full ROM, normal capillary refill. Absent: tenderness, pedal edema, joint swelling, calf tenderness Back exam: Present: normal inspection Neurological exam: Present: alert, oriented X3, CN II-XII intact Psychiatric exam: Present: normal affect, normal mood Skin exam: Present: warm, dry, intact, normal color. Absent: rash Course Vital Signs 07/05/17 07/05/17 07/05/17 18:38 18:45 19:21 Temperature 98.9 F 98.2 F Pulse Rate 76 77 76 Respiratory 20 16 18 Rate Blood Pressure 132/69 130/75 118/63 O2 Sat by Pulse 99 97 98 Oximetry 07/05/17 19:55 Temperature Pulse Rate 74 Respiratory 18 Rate Blood Pressure 125/70 O2 Sat by Pulse 98 Oximetry Medical Decision Making - Medical Decision Making patient presents with syncopal episode. CT of the head is unremarkable. Laboratory studies do not show any acute significant abnormality. He will be admitted to the hospital. - Lab Data Result diagrams: 07/05/17 18:40 07/05/17 18:40 Lab Results 07/05/17 07/05/17 07/05/17 Range/Units 18:40 18:40 18:40 WBC 5.8 (3.8-10.6) k/uL RBC 3.12 L (4.30-5.90) m/uL Hgb 9.1 L (13.0-17.5) gm/dL Hct 28.6 L (39.0-53.0) % MCV 91.7 (80.0-100.0) fL MCH 29.1 (25.0-35.0) pg MCHC 31.7 (31.0-37.0) g/dL RDW 17.7 H (11.5-15.5) % Plt Count 354 (150-450) k/uL Neutrophils % 48 % Lymphocytes % 36 % Monocytes % 6 % Eosinophils % 5 % Basophils % 1 % Neutrophils # 2.8 (1.3-7.7) k/uL Lymphocytes # 2.1 (1.0-4.8) k/uL Monocytes # 0.3 (0-1.0) k/uL Eosinophils # 0.3 (0-0.7) k/uL Basophils # 0.1 (0-0.2) k/uL Hypochromasia Slight Anisocytosis Slight PT (9.0-12.0) sec INR (<1.2) APTT (22.0-30.0) sec Sodium 138 (137-145) mmol/L Potassium 4.0 (3.5-5.1) mmol/L Chloride 102 (98-107) mmol/L Carbon Dioxide 26 (22-30) mmol/L Anion Gap 10 mmol/L BUN 18 (9-20) mg/dL Creatinine 1.45 H (0.66-1.25) mg/dL Est GFR (MDRD) Af Amer 59 (>60 ml/min/1.73 sqM) Est GFR (MDRD) Non-Af 49 (>60 ml/min/1.73 sqM) Glucose 114 H (74-99) mg/dL POC Glucose (mg/dL) (75-99) mg/dL POC Glu Social Economist ID Calcium 9.3 (8.4-10.2) mg/dL Total Bilirubin 0.2 (0.2-1.3) mg/dL AST 25 (17-59) U/L ALT 43 (21-72) U/L Alkaline Phosphatase 105 (38-126) U/L Ammonia (<30) umol/L Total Creatine Kinase 69 (55-170) U/L CK-MB (CK-2) 0.7 (0.0-2.4) ng/mL CK-MB (CK-2) Rel Index 1.0 Troponin I <0.012 (0.000-0.034) ng/mL Total Protein 7.1 (6.3-8.2) g/dL Albumin 3.7 (3.5-5.0) g/dL 07/05/17 07/05/17 07/05/17 Range/Units 18:40 18:46 19:20 WBC (3.8-10.6) k/uL RBC (4.30-5.90) m/uL Hgb (13.0-17.5) gm/dL Hct (39.0-53.0) % MCV (80.0-100.0) fL MCH (25.0-35.0) pg MCHC (31.0-37.0) g/dL RDW (11.5-15.5) % Plt Count (150-450) k/uL Neutrophils % % Lymphocytes % % Monocytes % % Eosinophils % % Basophils % % Neutrophils # (1.3-7.7) k/uL Lymphocytes # (1.0-4.8) k/uL Monocytes # (0-1.0) k/uL Eosinophils # (0-0.7) k/uL Basophils # (0-0.2) k/uL Hypochromasia Anisocytosis PT 10.1 (9.0-12.0) sec INR 1.0 (<1.2) APTT 24.3 (22.0-30.0) sec Sodium (137-145) mmol/L Potassium (3.5-5.1) mmol/L Chloride (98-107) mmol/L Carbon Dioxide (22-30) mmol/L Anion Gap mmol/L BUN (9-20) mg/dL Creatinine (0.66-1.25) mg/dL Est GFR (MDRD) Af Amer (>60 ml/min/1.73 sqM) Est GFR (MDRD) Non-Af (>60 ml/min/1.73 sqM) Glucose (74-99) mg/dL POC Glucose (mg/dL) 126 H (75-99) mg/dL POC Glu Social Economist ID Yodit Flowers Calcium (8.4-10.2) mg/dL Total Bilirubin (0.2-1.3) mg/dL AST (17-59) U/L ALT (21-72) U/L Alkaline Phosphatase (38-126) U/L Ammonia <9 (<30) umol/L Total Creatine Kinase (55-170) U/L CK-MB (CK-2) (0.0-2.4) ng/mL CK-MB (CK-2) Rel Index Troponin I (0.000-0.034) ng/mL Total Protein (6.3-8.2) g/dL Albumin (3.5-5.0) g/dL 07/05/17 20:21 twelve-lead EKG is interpreted by me as showing ventricular rate 79 bpm, normal MA interval and QRS complexes, no ST elevation or depression, interpreted by me as normal sinus rhythm. Disposition Clinical Impression: Syncope Disposition: ADMITTED IP TO THIS HOSP Condition: Fair Referrals: Rick Luke MD [Primary Care Provider] - 1-2 days Time of Disposition: 20:22
[2017-07-05] MEDS ORDERED: TAMSULOSIN 0.4 MG CAP.ER.24H PO SCH (21:00)
[2017-07-05] MEDS ORDERED: ATORVASTATIN 80 MG TAB PO SCH (21:00)
[2017-07-05] MEDS: CEFUROXIME 250 MG TAB PO SCH (21:46)
[2017-07-05 22:08] VITALS: BMI 21.8
[2017-07-06] MEDS ORDERED: IPRATROPIUM-ALBUTEROL 3 ML NEB INHALATION SCH (08:00)
[2017-07-06] MEDS ORDERED: NON-FORMULARY DRUG (Glycopyrrolate/Formoterol Fum [Bevespi Aerosphere Inhaler] 1 PUFF) INHALATION SCH (08:00)
[2017-07-06] MEDS ORDERED: ENOXAPARIN 40 MG/0.4 ML SYRINGE SQ SCH (09:00)
[2017-07-06] MEDS ORDERED: amLODIPine 10 MG TAB PO SCH (09:00)
[2017-07-06] MEDS ORDERED: NICOTINE 7MG/24HR PATCH TRANSDERM SCH (09:00)
[2017-07-06] MEDS ORDERED: CLOPIDOGREL 75 MG TAB PO SCH (09:00)
[2017-07-06] MEDS ORDERED: ASPIRIN 81 MG PO SCH (09:00)
[2017-07-06] MEDS ORDERED: PANTOPRAZOLE 40 MG/10 ML VIAL IV SCH (09:00)
[2017-07-06] MEDS ORDERED: FERROUS SULFATE 325 MG TAB PO SCH (09:00)
[2017-07-06] MEDS ORDERED: LORATADINE 10 MG TAB PO SCH (09:00)
[2017-07-06] MEDS: PANTOPRAZOLE 40 MG TABLET PO SCH ×2 (09:08→17:24)
[2017-07-06] MEDS: CEFUROXIME 250 MG TAB PO SCH (09:09)
--- NOTE | 2017-07-06 12:59 | HP ---
HISTORY AND PHYSICAL DATE OF ADMISSION: 07/05/2017 PRESENTING COMPLAINT: Slumped over. HISTORY OF PRESENTING COMPLAINT: This is a pleasant 66-year-old patient of Dr. Luke. Chronic stable medical conditions include hypertension, hyperlipidemia, osteoporosis, GERD, COPD, gastric ulcers. Patient has had a history of multiple strokes in the past and did have a stent done at [facility] where he was found to have focal severe right M2 origin stenosis and it was opened up to 50%. Patient was sitting at the dining table yesterday, has his who in the history right now is sitting with the [id number]. Suddenly, the patient slumped over. Patient was found to be slumping on one side. They called his name; however, he did not respond, and they decided to call 911. By the time 911 got there and did assessment, eventually patient is able to walk to the door, being back to his usual self. There was no change in speech, no change in vision, no other focal weakness. REVIEW OF SYSTEMS: GENERAL: Tired. HEENT: None. RESPIRATORY: None. CARDIOVASCULAR: None. GASTROINTESTINAL: None. GENITOURINARY: None. MUSCULOSKELETAL: Pain in the different joints, especially the knees. LYMPHATICS: None. PSYCHIATRY: Sometimes forgetful. NEUROLOGICAL: As above. PAST MEDICAL HISTORY: With multiple strokes with focal severe right M2 origin stenosis with angioplastied at [facility], hypertension, hyperlipidemia, osteoarthritis, GERD, COPD, right 3rd toe osteomyelitis, gastric ulcer, PEG tube in the past. PAST SURGICAL HISTORY: Hernia repair, joint replacement, orthopedic surgery, right total knee replacement. ALLERGIES: None. SOCIAL HISTORY: Patient smoked a pack a day for close to 38 years, stopped about 5 months ago. . Uses a walker. Alcohol occasionally. FAMILY HISTORY: Stroke, diabetes, hyperlipidemia, hypertension. HOME MEDICATIONS: 1. Norvasc 10 mg p.o. daily. 2. Flomax 0.4 mg p.o. q.h.s. 3. Omeprazole 20 mg p.o. b.i.d. 4. Nicotine 7 one patch daily. 5. Claritin 10 mg p.o. daily. 6. DuoNeb b.i.d. 7. Bevespi Aerosphere inhaler 1 puff b.i.d. 8. Iron 325 p.o. daily. 9. Plavix 75 mg p.o. daily. 10.Vitamin D3 one thousand units p.o. daily. 11.Ceftin 250 mg p.o. b.i.d. 12.Lipitor 80 mg q.h.s. 13.Aspirin 81 mg p.o. daily. ALLERGIES: None. PHYSICAL EXAMINATION: Temperature 97.8, pulse 63, respirations 16, blood pressure 136/70, pulse ox 97% room air. GENERAL APPEARANCE: Sitting up, comfortable. EYES: Pupil equal, conjunctivae normal. HEENT: Oral cavity normal. NECK: JVD not raised. Mass not palpable. RESPIRATORY EFFORT: Normal. LUNGS: Decreased breath sounds. CARDIOVASCULAR: First and second sounds normal, no edema. ABDOMEN: Soft, nontender. Liver and spleen not palpable. LYMPHATIC: No lymph palpable in neck or axillae. PSYCHIATRY: Alert. Patient is awake, answering simple questions. Mood and affect normal. NEUROLOGICAL: Mouth slightly pulled to the right. According to the , this is not normal for the patient. Otherwise, power and sensation grossly intact. INVESTIGATIONS: White count 5.8, hemoglobin 9.1, potassium 4.0, BUN 18 creatinine 1.45, troponin x3 negative. CT scan of the brain showed no new findings. ASSESSMENT: 1. Acute transient ischemic attack in a patient who has had multiple strokes in the past but non-focal, severe M2 origin stenosis now with angioplasty with residual 50% stenosis as per the report. 2. Essential hypertension. 3. Hyperlipidemia. 4. Primary osteoarthritis of multiple joints, bilaterally. 5. Chronic obstructive pulmonary disease in an ex-smoker. 6. Chronic gait dysfunction, uses a walker. PLAN: Patient had seen Dr. Mcghee yesterday, MRI of the brain is ordered. Patient had extensive workup in the past including being followed at the [facility]. I think of the MRI not showing anything acute. Patient may be allowed to go home. Antiplatelet agents to continue. Did talk at length to the and to make an appointment with [facility]. Did also communicate with Dr. Mcghee from Neurology. MMODL / IJN: [id number] /
--- NOTE | 2017-07-06 13:17 | MR ---
EXAMINATION TYPE: MR brain wo/w con DATE OF EXAM: 07/06/2017 COMPARISON: MRI brain April 30, 2017. CT brain from yesterday. HISTORY: Altered mental status on admission yesterday. TECHNIQUE: Multiplanar, multisequence images of the brain and brainstem is performed without and with IV contras t, utilizing 7.5 mL intravenous Gadavist . FINDINGS: Diffusion weighted images demonstrate no evidence of a recent infarct or other diffusion ab normality. There is no worrisome extra-axial fluid collection. There is ventricular and sulcal promi nence consistent with diffuse cerebral atrophy redemonstrated. There are focal and confluent areas of T2 hyperintensity seen throughout the periventricular white matter redemonstrated. Findings are felt on basis of product of chronic small vessel ischemic change in patient this age. Involvement in brai n stem is redemonstrated including yuko and right ventral area on image 13 near the midbrain pontine junction. Old lacunar infarcts right tipton radiata nearly head of caudate nucleus are again seen. Th ere are additional infarct along course of the corpus callosum redemonstrated seen best on sagittal i mages. Midline structures demonstrate normal morphology. The craniocervical junction appears within normal limits. Post contrast images demonstrate nonspecific vascular blush right inferior temporal region o n axial image 14 perhaps small venous angioma. The dural venous sinuses appear patent. The visualized sinuses are clear and the globes are intact. IMPRESSION: 1. No evidence of a recent infarct on current study. 2. There is background of mild to moderate diffuse cerebral atrophy and moderate to severe chronic sm all vessel ischemic change with multiple old predominantly right-sided lacunar infarcts redemonstrate d, suspect some additional old lacunar infarcts throughout the corpus callosum are felt present.
--- NOTE | 2017-07-06 15:24 | DS ---
DISCHARGE SUMMARY DATE OF ADMISSION: 07/05/2017 DATE OF DISCHARGE: 07/06/2017 FINAL DIAGNOSES: 1. Acute transient ischemic attack in a patient who has had multiple strokes in the past but nonfocal severe M2 origin stenosis now with angioplasty with residual 50% stenosis as per the report. 2. Essential hypertension. 3. Hyperlipidemia. 4. Primary osteoarthritis of multiple joints, bilaterally. 5. Chronic obstructive pulmonary disease. 6. Smoker. 7. Chronic gait dysfunction, uses a walker. This is a 66-year-old patient who presented to the emergency department after he suddenly slumped over and was found to be slumping on one side. Family was present and they called his name; however, he did not respond and 911 was called. By the time they arrived, patient was able to walk and was back to his usual baseline functioning. No change in speech, vision or other focal weakness, but was brought in for evaluation. Patient had been seen by Dr. Mcghee yesterday, MRI of the brain was ordered. Had an extensive workup in the past, including being followed at [facility]. MRI not showing anything acute. Will continue antiplatelet agents. Long discussion had with the and recommend making an appointment with [facility]. Dr. Mcghee from Neurology was also consulted and saw the patient, communicated with family. CIVIL ENGINEERING PROJECT MANAGER: Dr. Aron iSlverio from Neurology. PHYSICAL EXAM: CARDIOVASCULAR: First and second sounds noted, no edema. RESPIRATORY: Effort normal, lung sounds diminished bilaterally. PSYCHIATRY: Alert and oriented x3, mood and affect normal. NEUROLOGIC: Now slightly pulled to the right. According to the , this is not normal, power and sensation grossly intact. DISCHARGE MEDICATIONS: 1. Ceftin 250 mg p.o. b.i.d. 2. Cholecalciferol 1000 units p.o. q.a.m. 3. Clopidogrel 75 mg p.o. q.a.m. 4. Ferrous sulfate 325 mg p.o. daily. 5. Bevespi Aerosphere inhaler 1 puff b.i.d. 6. DuoNeb 3 mL inhalation b.i.d. 7. Loratadine 10 mg p.o. daily. 8. Nicotine patch 7 mg 1 patch daily. 9. Omeprazole 20 mg p.o. b.i.d. 10.Tamsulosin 0.4 mg p.o. at bedtime. DISPOSITION: Discharged home to the care of his family. JORDY / MYLENE: [id number] /
[2017-07-06 15:46] VITALS: BP 135/74; PULSE 83; RESP 18; TEMP 98.7
--- NOTE | 2017-07-06 16:54 | P.CONS ---
History of Present Illness - Reason for Consult Consult date: 07/06/17 - Chief Complaint TIA - History of Present Illness Is a 66-year-old -[place] male being evaluated by the neurology service for a syncopal episode at home. And down with his at the dining room table and had an episode of syncope and confusion. There was no fall or head injury. There was no seizure activity reported. He does have a history of multiple strokes in the past. He did notice there was some left sided numbness and weakness which resolved by the time he got to the ER. Initial CT of the brain showed no acute intracranial abnormalities. A subsequent MRI of the brain was done and showed no evidence of recent infarct. It did show to moderate diffuse cerebral atrophy and moderate to severe chronic small vessel ischemic changes with old right-sided lacunar infarcts with were unchanged from his previous MRI of April. At time of my examination is resting comfortably in bed in no acute distress. Review of Systems All systems: negative Past Medical History Past Medical History: CVA/TIA, GERD/Reflux, Hyperlipidemia, Hypertension, Musculoskeletal Disorder, Renal Disease Additional Past Medical History / Comment(s): 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 OCC EDEMA FEET.Gastric Ulcer. Stroke on 02/23/17. Peg tube - patient's spouse says hasn't been used in a month and is scheduled for removal on 07/11/2017. stage 2 kidney disease History of Any Multi-Drug Resistant Organisms: None Reported Past Surgical History: Hernia Repair, Joint Replacement, Orthopedic Surgery Additional Past Surgical History / Comment(s): RT TOTAL KNEE, intracranial angioplasty at [facility] on 06/01/2017 Past Anesthesia/Blood Transfusion Reactions: No Reported Reaction Past Psychological History: No Psychological Hx Reported Smoking Status: Former smoker Past Alcohol Use History: Occasional Additional Past Alcohol Use History / Comment(s): SMOKED < 1PPD FOR 35 YEARS EST. Past Drug Use History: None Reported - Past Family History Mother Family Medical History: CVA/TIA, Diabetes Mellitus, Hyperlipidemia, Hypertension Medications and Allergies Home Medications Medication Instructions Recorded Confirmed Type Aspirin EC [Ecotrin Low Dose] 81 mg PO QAM 05/26/17 07/05/17 History Atorvastatin [Lipitor] 80 mg PO HS 05/26/17 07/05/17 History Cholecalciferol [Vitamin D3] 1,000 unit PO QAM 05/26/17 07/05/17 History Clopidogrel [Plavix] 75 mg PO QAM 05/26/17 07/05/17 History Glycopyrrolate/Formoterol Fum 1 puff INHALATION RT-BID 05/26/17 07/05/17 History [Bevespi Aerosphere Inhaler] Ipratropium-Albuterol Nebulize 3 ml INHALATION RT-BID 05/26/17 07/05/17 History [Duoneb 0.5 mg-3 mg/3 ml Soln] Omeprazole 20 mg PO BID 05/26/17 07/05/17 History Tamsulosin HCl [Flomax] 0.4 mg PO HS 05/26/17 07/05/17 History amLODIPine [Norvasc] 10 mg PO QAM 05/26/17 07/05/17 History Ferrous Sulfate [Feosol] 325 mg PO DAILY 06/29/17 07/05/17 History Loratadine [Claritin] 10 mg PO DAILY 06/29/17 07/05/17 History Nicotine 7Mg/24Hr Patch [Habitrol] 1 patch TRANSDERM DAILY 06/29/17 07/05/17 History Cefuroxime [Ceftin] 250 mg PO BID #14 tablet 07/01/17 07/05/17 Rx Allergies Allergy/AdvReac Type Severity Reaction Status Date / Time No Known Allergies Allergy Verified 07/05/17 19:14 Physical Exam Vitals: Vital Signs Temp Pulse Pulse Resp BP BP Pulse Ox 07/06/17 15:45 98.7 F 83 18 135/74 99 07/06/17 11:26 98 F 78 16 127/68 99 07/06/17 07:51 97.8 F 63 16 136/70 97 07/06/17 07:27 64 07/06/17 07:20 64 07/06/17 03:59 98.1 F 65 16 138/73 97 07/06/17 03:29 57 L 16 07/05/17 23:52 98.1 F 71 16 153/79 100 07/05/17 23:30 64 16 07/05/17 22:00 63 16 07/05/17 21:47 97.8 F 64 16 141/78 98 07/05/17 20:39 98.3 F 70 18 126/74 98 07/05/17 19:55 74 18 125/70 98 07/05/17 19:21 76 18 118/63 98 07/05/17 18:45 98.2 F 77 16 130/75 97 07/05/17 18:38 98.9 F 76 20 132/69 99 Intake and Output 07/06/17 07/06/17 07/06/17 06:59 14:59 22:59 Intake Total 236 Balance 236 Intake: Oral 236 Other: Voiding Method Urinal Urinal Diaper Diaper # Voids 3 - Constitutional General appearance: average body habitus, cooperative, no acute distress - EENT Eyes: no abnormal pupil, EOMI, no ptosis ENT: hearing grossly normal - Neck Neck: normal ROM, no rigidity - Respiratory Respiratory: negative: prolonged expiration, prolonged inspiration - Cardiovascular Rhythm: regular - Gastrointestinal General gastrointestinal: no distended, no tenderness - Neurologic A similar awake and oriented 3. Speech and language are normal. There is mild left facial droop. Cranial nerves II through XII are intact globally. Strength in upper extremities is 5 out of 5 on the right 5 minus out of 5 on the left. Lower extremities are similar. There is no sensory deficit. There is no pronator drift. No tremors or seizure-like activities are seen. Results CBC & Chem 7: 07/05/17 18:40 07/05/17 18:40 Labs: Abnormal Lab Results - Last 24 Hours (Table) 07/05/17 07/05/17 07/05/17 Range/Units 18:40 18:40 18:46 RBC 3.12 L (4.30-5.90) m/uL Hgb 9.1 L (13.0-17.5) gm/dL Hct 28.6 L (39.0-53.0) % RDW 17.7 H (11.5-15.5) % Creatinine 1.45 H (0.66-1.25) mg/dL Glucose 114 H (74-99) mg/dL POC Glucose (mg/dL) 126 H (75-99) mg/dL Assessment and Plan (1) Syncope Status: Resolved (2) Hyperlipidemia Status: Chronic (3) Hypertension Status: Chronic (4) Left leg weakness Status: Chronic (5) TIA (transient ischemic attack) Status: Acute Plan: He has likely suffered another episode of transient cerebral ischemia. He has no residual symptoms from this episode. Recommending continuation of current antiplatelet therapy, current antihyperlipidemic therapy. Continue follow-up with [facility] and Dr. Mcghee's his neurologist. Otherwise he is cleared for discharge from a neurological standpoint. I have reviewed the history and physical on the above patient. I have reviewed the above note, and agree.
--- NOTE | 2017-07-08 11:06 | DS ---
DISCHARGE SUMMARY ATTENDING NOTE: Patient seen and examined by my. I discussed with nurse practitioner, Ms. Mckay. Patient admitted with TIA symptoms, completely resolved. MRI was negative. Seen by Dr. Mcghee of Neurology who okayed the patient to be discharged. I had a long talk with the and the patient. Patient due to follow up at [facility]. EXAMINATION: On exam: LUNGS: Decreased breath sounds. ADDENDUM: There is a correction to my H and P: According to the patient's facial asymmetry is not new. MMODL / IJN: [id number] /
== END 2017-07-06 18:12 | disposition home or self-care (01) ==
LOC: EC 18:32 → 3OBS 20:23
PROVIDERS: ADMIT Hospitalist; ATTEND Hospitalist
DX: G45.9 Transient cerebral ischemic attack, unspecified (principal); I10 Essential (primary) hypertension; M19.91 Primary osteoarthritis, unspecified site; J44.9 Chronic obstructive pulmonary disease, unspecified; F17.200 Nicotine dependence, unspecified, uncomplicated; R26.9 Unspecified abnormalities of gait and mobility; E78.5 Hyperlipidemia, unspecified; K21.9 Gastro-esophageal reflux disease without esophagitis; K25.9 Gastric ulcer, unspecified as acute or chronic, without hemorrhage or perforation; M81.0 Age-related osteoporosis without current pathological fracture; N28.9 Disorder of kidney and ureter, unspecified; Z87.11 Personal history of peptic ulcer disease; Z79.82 Long term (current) use of aspirin; Z79.899 Other long term (current) drug therapy; Z79.02 Long term (current) use of antithrombotics/antiplatelets; Z86.73 Personal history of transient ischemic attack (TIA), and cerebral infarction without residual deficits; Z93.1 Gastrostomy status
CPT/HCPCS: 99285; 96372; 36415; 94640; 93005; 80053; 82140; 82550; 82553; 84484 ×2; 85025; 85610; 85730; 71020; 70450; 70553; G0378 ×2; S4990; J1650; A9581

== ENCOUNTER 2017-07-13 14:53 | Observation (INO) | payer MEDICARE, BC ==
[2017-07-13] MEDS ORDERED: ACETAMINOPHEN TAB 500 MG TAB PO STA (15:00)
[2017-07-13] MEDS ORDERED: IBUPROFEN 600 MG TAB PO STA (15:00)
--- NOTE | 2017-07-13 15:09 | ED ---
General Adult HPI - General Stated complaint: Weakness Time Seen by Provider: 07/13/17 14:55 Source: RN notes reviewed - History of Present Illness Initial comments: This is a 66-year-old male who presents emergency Department with a past medical history significant CVA. Patient states she does have left sided residual weakness in his leg. Patient states however today he got up and felt weaker in his left leg and it was difficult to walk. Patient states it seems to have resolved at this time. EMS states that the patient was able to ambulate the stretcher. Patient denies any other symptoms at this time. Patient denies a headache. Patient denies any other weakness or numbness. Patient denies any chest pain palpitations difficulty breathing first breath per patient denies abdominal pain patient denies nausea vomiting diarrhea per patient denies any recent history of fever chills or cough. - Related Data Home Medications Medication Instructions Recorded Confirmed Aspirin EC [Ecotrin Low Dose] 81 mg PO QAM 05/26/17 07/13/17 Atorvastatin [Lipitor] 80 mg PO HS 05/26/17 07/13/17 Cholecalciferol [Vitamin D3] 1,000 unit PO QAM 05/26/17 07/13/17 Clopidogrel [Plavix] 75 mg PO QAM 05/26/17 07/13/17 Glycopyrrolate/Formoterol Fum 1 puff INHALATION RT-BID 05/26/17 07/13/17 [Bevespi Aerosphere Inhaler] Ipratropium-Albuterol Nebulize 3 ml INHALATION RT-BID 05/26/17 07/13/17 [Duoneb 0.5 mg-3 mg/3 ml Soln] Tamsulosin HCl [Flomax] 0.4 mg PO QAM 05/26/17 07/13/17 amLODIPine [Norvasc] 10 mg PO QAM 05/26/17 07/13/17 Ferrous Sulfate [Feosol] 325 mg PO DAILY 06/29/17 07/13/17 Loratadine [Claritin] 10 mg PO DAILY 06/29/17 07/13/17 Clindamycin [Cleocin] 150 mg PO Q8H 07/13/17 07/13/17 Ranitidine HCl [Zantac] 150 mg PO BID 07/13/17 07/13/17 Allergies Allergy/AdvReac Type Severity Reaction Status Date / Time No Known Allergies Allergy Verified 07/13/17 16:08 Review of Systems ROS Statement: Those systems with pertinent positive or pertinent negative responses have been documented in the HPI. ROS Other: All systems not noted in ROS Statement are negative. 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 OCC EDEMA FEET.Gastric Ulcer. Stroke on 02/23/17. Peg tube - patient's spouse says hasn't been used in a month and is scheduled for removal on 07/11/2017. stage 2 kidney disease History of Any Multi-Drug Resistant Organisms: None Reported Past Surgical History: Hernia Repair, Joint Replacement, Orthopedic Surgery Additional Past Surgical History / Comment(s): RT TOTAL KNEE, intracranial angioplasty at [facility] on 06/01/2017 Past Anesthesia/Blood Transfusion Reactions: No Reported Reaction Past Psychological History: No Psychological Hx Reported Smoking Status: Former smoker Past Alcohol Use History: Occasional Additional Past Alcohol Use History / Comment(s): SMOKED < 1PPD FOR 35 YEARS EST. Past Drug Use History: None Reported - Past Family History Mother Family Medical History: CVA/TIA, Diabetes Mellitus, Hyperlipidemia, Hypertension General Exam - General Exam Comments Initial Comments: GENERAL: Patient is well-developed and well-nourished. Patient is nontoxic and well- hydrated and is in no acute distress. ENT: Neck is soft and supple. No significant lymphadenopathy is noted. Oropharynx is clear. Moist mucous membranes. Neck has full range of motion without eliciting any pain. EYES: The sclera were anicteric and conjunctiva were pink and moist. Extraocular movements were intact and pupils were equal round and reactive to light. Eyelids were unremarkable. PULMONARY: Unlabored respirations. Good breath sounds bilaterally. No audible rales rhonchi or wheezing was noted. CARDIOVASCULAR: There is a regular rate and rhythm without any murmurs gallops or rubs. ABDOMEN: Soft and nontender with normal bowel sounds. No palpable organomegaly was noted. There is no palpable pulsatile mass. SKIN: Skin is clear with no lesions or rashes and otherwise unremarkable. NEUROLOGIC: Patient is alert and oriented x3. Cranial nerves II through XII are grossly intact. Motor and sensory are also intact. Normal speech, volume and content. Symmetrical smile. MUSCULOSKELETAL: Normal extremities with adequate strength and full range of motion. No lower extremity swelling or edema. No calf tenderness. When the patient arrived I ambulated the patient and he stated the symptoms are no longer there. LYMPHATICS: No significant lymphadenopathy is noted PSYCHIATRIC: Normal psychiatric evaluation. Normal interpersonal interactions appears functionally intact in deals appropriately with others. No signs of depression. No signs of anxiety. Course Vital Signs 07/13/17 07/13/17 15:02 15:52 Temperature 99.6 F 98.3 F Pulse Rate 90 70 Respiratory 18 18 Rate Blood Pressure 154/87 154/82 O2 Sat by Pulse 97 99 Oximetry Medical Decision Making - Medical Decision Making EKG shows a normal sinus rhythm at 84 bpm GA interval is on a 52 QRS is 86 QT interval 364 QTC is 4:30. Patient's EKG shows no ST segment elevation or depression or T wave abnormalities are noted. Computed tomography scan of the head shows no acute abnormality. Patient has no symptoms currently - Lab Data Result diagrams: 07/13/17 15:19 07/13/17 15:19 Lab Results 07/13/17 07/13/17 07/13/17 Range/Units 15:19 15:19 15:19 WBC 9.7 (3.8-10.6) k/uL RBC 3.47 L (4.30-5.90) m/uL Hgb 10.1 L (13.0-17.5) gm/dL Hct 31.5 L (39.0-53.0) % MCV 90.8 (80.0-100.0) fL MCH 29.0 (25.0-35.0) pg MCHC 32.0 (31.0-37.0) g/dL RDW 18.7 H (11.5-15.5) % Plt Count 384 (150-450) k/uL Neutrophils % 77 % Lymphocytes % 16 % Monocytes % 5 % Eosinophils % 0 % Basophils % 0 % Neutrophils # 7.4 (1.3-7.7) k/uL Lymphocytes # 1.6 (1.0-4.8) k/uL Monocytes # 0.5 (0-1.0) k/uL Eosinophils # 0.0 (0-0.7) k/uL Basophils # 0.0 (0-0.2) k/uL Anisocytosis Slight PT (9.0-12.0) sec INR (<1.2) APTT (22.0-30.0) sec Sodium 137 (137-145) mmol/L Potassium 3.9 (3.5-5.1) mmol/L Chloride 100 (98-107) mmol/L Carbon Dioxide 26 (22-30) mmol/L Anion Gap 11 mmol/L BUN 25 H (9-20) mg/dL Creatinine 1.40 H (0.66-1.25) mg/dL Est GFR (MDRD) Af Amer >60 (>60 ml/min/1.73 sqM) Est GFR (MDRD) Non-Af 51 (>60 ml/min/1.73 sqM) Glucose 126 H (74-99) mg/dL Plasma Lactic Acid Del (0.7-2.0) mmol/L Calcium 9.8 (8.4-10.2) mg/dL Total Bilirubin 0.2 (0.2-1.3) mg/dL AST 24 (17-59) U/L ALT 57 (21-72) U/L Alkaline Phosphatase 105 (38-126) U/L Total Creatine Kinase 41 L (55-170) U/L CK-MB (CK-2) 0.5 (0.0-2.4) ng/mL CK-MB (CK-2) Rel Index 1.2 Troponin I <0.012 (0.000-0.034) ng/mL Total Protein 7.3 (6.3-8.2) g/dL Albumin 4.0 (3.5-5.0) g/dL Urine Color Urine Appearance (Clear) Urine pH (5.0-8.0) Ur Specific [place] (1.001-1.035) Urine Protein (Negative) Urine Glucose (UA) (Negative) Urine Ketones (Negative) Urine Blood (Negative) Urine Nitrite (Negative) Urine Bilirubin (Negative) Urine Urobilinogen (<2.0) mg/dL Ur Leukocyte Esterase (Negative) 07/13/17 07/13/17 07/13/17 Range/Units 15:19 15:19 16:24 WBC (3.8-10.6) k/uL RBC (4.30-5.90) m/uL Hgb (13.0-17.5) gm/dL Hct (39.0-53.0) % MCV (80.0-100.0) fL MCH (25.0-35.0) pg MCHC (31.0-37.0) g/dL RDW (11.5-15.5) % Plt Count (150-450) k/uL Neutrophils % % Lymphocytes % % Monocytes % % Eosinophils % % Basophils % % Neutrophils # (1.3-7.7) k/uL Lymphocytes # (1.0-4.8) k/uL Monocytes # (0-1.0) k/uL Eosinophils # (0-0.7) k/uL Basophils # (0-0.2) k/uL Anisocytosis PT 10.3 (9.0-12.0) sec INR 1.0 (<1.2) APTT 22.7 (22.0-30.0) sec Sodium (137-145) mmol/L Potassium (3.5-5.1) mmol/L Chloride (98-107) mmol/L Carbon Dioxide (22-30) mmol/L Anion Gap mmol/L BUN (9-20) mg/dL Creatinine (0.66-1.25) mg/dL Est GFR (MDRD) Af Amer (>60 ml/min/1.73 sqM) Est GFR (MDRD) Non-Af (>60 ml/min/1.73 sqM) Glucose (74-99) mg/dL Plasma Lactic Acid Del 1.7 (0.7-2.0) mmol/L Calcium (8.4-10.2) mg/dL Total Bilirubin (0.2-1.3) mg/dL AST (17-59) U/L ALT (21-72) U/L Alkaline Phosphatase (38-126) U/L Total Creatine Kinase (55-170) U/L CK-MB (CK-2) (0.0-2.4) ng/mL CK-MB (CK-2) Rel Index Troponin I (0.000-0.034) ng/mL Total Protein (6.3-8.2) g/dL Albumin (3.5-5.0) g/dL Urine Color Yellow Urine Appearance Clear (Clear) Urine pH 6.0 (5.0-8.0) Ur Specific [place] 1.018 (1.001-1.035) Urine Protein Trace H (Negative) Urine Glucose (UA) Negative (Negative) Urine Ketones Negative (Negative) Urine Blood Negative (Negative) Urine Nitrite Negative (Negative) Urine Bilirubin Negative (Negative) Urine Urobilinogen <2.0 (<2.0) mg/dL Ur Leukocyte Esterase Negative (Negative) Disposition Clinical Impression: Transient cerebral ischemia Disposition: ADMITTED IP TO THIS HOSP Referrals: Rick Luke MD [Primary Care Provider] - 1-2 days Time of Disposition: 17:10
[2017-07-13 15:32] LABS: Anisocytosis Slight; Basophils % (A) 0 %; CH 30.2; CHCM 33.4; Eosinophils % (A) 0 %; HCT 31.5 % (39.0-53.0); HDW 2.85; HGB 10.1 gm/dL (13.0-17.5); Luc # (Auto) 0.21; Luc % (Auto) 2; Lymphocytes # (A) 1.6 k/uL (1.0-4.8); Lymphocytes % (A) 16 %; MCV 90.8 fL (80.0-100.0); Mean Platelet Volume 7.4; Monocytes # (A) 0.5 k/uL (0-1.0); Monocytes % (A) 5 %; Neutrophils # (A) 7.4 k/uL (1.3-7.7); Neutrophils % (A) 77 %; RBC 3.47 m/uL (4.30-5.90); RDW 18.7 % (11.5-15.5); WBC 9.7 k/uL (3.8-10.6); WBC (Perox) 10.12
[2017-07-13 15:41] LABS: ALT 57 U/L (21-72); AST 24 U/L (17-59); Alkaline Phosphatase 105 U/L (38-126); Anion Gap 11 mmol/L; Blood Urea Nitrogen 25 mg/dL (9-20); Calcium 9.8 mg/dL (8.4-10.2); Carbon Dioxide 26 mmol/L (22-30); Chloride 100 mmol/L (98-107); Glucose 126 mg/dL (74-99); Non-African American GFR(MDRD) 51 (>60 ml/min/1.73 sqM); Partial Thromboplastin Time 22.7 sec (22.0-30.0); Potassium 3.9 mmol/L (3.5-5.1); Prothrombin Time 10.3 sec (9.0-12.0); Sodium 137 mmol/L (137-145); Total Bilirubin 0.2 mg/dL (0.2-1.3); Total Protein 7.3 g/dL (6.3-8.2)
[2017-07-13] MEDS: SODIUM CHLORIDE 0.9% 500 ML IV SCH (15:47)
--- NOTE | 2017-07-13 15:52 | XR ---
EXAMINATION TYPE: XR chest 2V DATE OF EXAM: 07/13/2017 COMPARISON: 07/05/2017 TECHNIQUE: PA and lateral views submitted. HISTORY: Weakness FINDINGS: Aorta appears ectatic. Suspicion for a aortic aneurysm. Atherosclerotic change is seen. No consolidation or pneumothorax. No overt failure. Mild hyperinflation. Degenerative change spine. IMPRESSION: 1. No acute infiltrate. Suspicion for thoracic aortic aneurysm. Correlate clinically.
[2017-07-13 15:56] LABS: Creatine Kinase 41 U/L (55-170)
--- NOTE | 2017-07-13 16:01 | CT ---
EXAMINATION TYPE: CT brain wo con DATE OF EXAM: 07/13/2017 COMPARISON: NONE HISTORY: Left leg weakness CT DLP: 1147 mGycm. Automated Exposure Control for Dose Reduction was Utilized. TECHNIQUE: CT scan of the head is performed without contrast. FINDINGS: There is redemonstration of multiple confluent areas of hypoattenuation within the tipton radiata and centrum semiovale as well as prior lacunar injuries of the right caudate head and right l entiform nucleus, CSF attenuated. Lacunar injuries of the left caudate head and external capsule are also identified.. There is no acute intracranial hemorrhage, mass effect, or midline shift identified . The ventricles and sulci are symmetrically prominent, compatible with age-related atrophy.. The g lobes are intact and the visualized sinuses are clear other than a small amount of polypoid mucosal t hickening within the left maxillary and sphenoid sinuses.. 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 IMPRESSION: 1. No acute intracranial hemorrhage, mass effect, or midline shift is seen. 2. Confluent nonspecific white matter changes, likely on the basis of chronic microangiopathy, and mu ltiple bilateral old lacunar injuries. 3. Mild polypoid mucosal thickening of the ethmoid and sphenoid sinuses.
[2017-07-13 16:10] LABS: Creatine Kinase MB 0.5 ng/mL (0.0-2.4); Troponin I <0.012 ng/mL (0.000-0.034)
[2017-07-13 16:34] LABS: Appearance,Urine Clear (Clear); Bilirubin,Urine Negative (Negative); Glucose,Urine (UA) Negative (Negative); Ketones,Urine Negative (Negative); Leukocyte Esterase,Urine Negative (Negative); Nitrite,Urine Negative (Negative); Protein,Urine Trace (Negative); Specific Gravity,Urine 1.018 (1.001-1.035); UA Billing (MACRO vs. MICRO) CHEM; Urobilinogen,Urine <2.0 mg/dL (<2.0)
[2017-07-13 18:06] VITALS: RESP 16
[2017-07-13] MEDS ORDERED: IPRATROPIUM-ALBUTEROL 3 ML NEB INHALATION PRN (20:08)
--- NOTE | 2017-07-13 20:08 | P.CNNES ---
History of Present Illness Consult date: 07/13/17 Reason for Consult: Patient admitted with TIA symptoms. History of Present Illness: This patient is a 66-year-old right-handed -Armenian male who has a history of multiple strokes in the past. 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 He has had multiple strokes in the past. Patient was recently admitted to hospital for an episode of TIA. He was seen on 07/05/2017 for acute syncopal episode. He complained of weakness at the time. During this recent admission in early June he underwent an MRI of the brain on 07/06/2017 which revealed no evidence of acute stroke. There was mild to moderate cerebral atrophy noted with chronic small vessel ischemic changes. Multiple old infarcts was noted. Patient states he came to the hospital today due to weakness in his left leg. He had difficulty walking. Apparently he sits down and stands up his leg may or may not support him. He has had this episode in the recent past as well with no clear finding as to the underlying etiology. Patient states he did undergo some therapy a few months ago but has not been keeping up with physical therapy for his history of strokes. He denied any other symptoms of slurred speech or focal weakness on this recent episode. He was brought into the emergency room where he was evaluated by Dr. Tom. He was sent for a computed tomography scan of the brain which revealed no acute abnormality of stroke or hemorrhage. Confluent nonspecific white matter changes were noted. The patient states he is feeling somewhat better now that he has been admitted to hospital. We have recommended that he should be seen by physical therapy for evaluation and possible outpatient therapy as well. Neurology is now been consulted for further evaluation and recommendations. Review of Systems Constitutional: Denies chills, Denies fever Eyes: denies blurred vision, denies pain Ears, nose, mouth and throat: Denies headache, Denies sore throat Cardiovascular: Denies chest pain, Denies shortness of breath Respiratory: Denies cough Gastrointestinal: Denies abdominal pain, Denies diarrhea, Denies nausea, Denies vomiting Musculoskeletal: Denies myalgias Integumentary: Denies pruritus, Denies rash Neurological: Reports balance difficulties, Reports change in mentation, Reports gait dysfunction, Reports motor disturbance, Denies numbness, Denies weakness Psychiatric: Denies anxiety, Denies depression Endocrine: Denies fatigue, Denies weight change Past Medical History Past Medical History: CVA/TIA, GERD/Reflux, Hyperlipidemia, Hypertension, Musculoskeletal Disorder, Renal Disease Additional Past Medical History / Comment(s): 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 OCC EDEMA FEET.Gastric Ulcer. Stroke on 02/23/17. Peg tube - patient's spouse says hasn't been used in a month and is scheduled for removal on 07/11/2017. stage 2 kidney disease History of Any Multi-Drug Resistant Organisms: None Reported Past Surgical History: Hernia Repair, Joint Replacement, Orthopedic Surgery Additional Past Surgical History / Comment(s): RT TOTAL KNEE, intracranial angioplasty at [facility] on 06/01/2017 Past Anesthesia/Blood Transfusion Reactions: No Reported Reaction Past Psychological History: No Psychological Hx Reported Smoking Status: Former smoker Past Alcohol Use History: Occasional Additional Past Alcohol Use History / Comment(s): SMOKED < 1PPD FOR 35 YEARS EST. Past Drug Use History: None Reported - Past Family History Mother Family Medical History: CVA/TIA, Diabetes Mellitus, Hyperlipidemia, Hypertension Medications and Allergies Home Medications Medication Instructions Recorded Confirmed Type Aspirin EC [Ecotrin Low Dose] 81 mg PO QAM 05/26/17 07/13/17 History Atorvastatin [Lipitor] 80 mg PO HS 05/26/17 07/13/17 History Cholecalciferol [Vitamin D3] 1,000 unit PO QAM 05/26/17 07/13/17 History Clopidogrel [Plavix] 75 mg PO QAM 05/26/17 07/13/17 History Glycopyrrolate/Formoterol Fum 1 puff INHALATION RT-BID 05/26/17 07/13/17 History [Bevespi Aerosphere Inhaler] Ipratropium-Albuterol Nebulize 3 ml INHALATION RT-BID 05/26/17 07/13/17 History [Duoneb 0.5 mg-3 mg/3 ml Soln] Tamsulosin HCl [Flomax] 0.4 mg PO QAM 05/26/17 07/13/17 History amLODIPine [Norvasc] 10 mg PO QAM 05/26/17 07/13/17 History Ferrous Sulfate [Feosol] 325 mg PO DAILY 06/29/17 07/13/17 History Loratadine [Claritin] 10 mg PO DAILY 06/29/17 07/13/17 History Clindamycin [Cleocin] 150 mg PO Q8H 07/13/17 07/13/17 History Ranitidine HCl [Zantac] 150 mg PO BID 07/13/17 07/13/17 History Allergies Allergy/AdvReac Type Severity Reaction Status Date / Time No Known Allergies Allergy Verified 07/13/17 16:08 Physical Examination - Vital Signs Vital Signs: Vital Signs Temp Pulse Resp BP Pulse Ox 07/13/17 18:05 98.7 F 69 16 151/79 98 07/13/17 15:52 98.3 F 70 18 154/82 99 07/13/17 15:02 99.6 F 90 18 154/87 97 Intake and Output 07/13/17 07/13/17 07/13/17 06:59 14:59 22:59 Intake Total 222 Output Total 700 Balance -478 Intake: Oral 222 Output: Urine 700 Other: Weight 77.111 kg Patient Weight 07/14/17 06:59 Weight 77.111 kg - Constitutional General appearance: average body habitus, cooperative - EENT EENT: PERRL, mucous membranes moist - Respiratory Respiratory: lungs clear, normal breath sounds - Cardiovascular Cardiovascular: regular rate, normal S1, normal S2 Extremities: no peripheral edema bilaterally - Gastrointestinal Gastrointestinal: normoactive bowel sounds - Integumentary Integumentary: normal - Neurologic Cranial nerve examination: PERRL, EOMI, VFF, V1/V2/V3 grossly intact, face symmetric, tongue midline, intact gag reflex, intact corneal reflex, normal palatal elevation Speech examination: intact Sensorimotor examination: intact Detailed motor examination: grossly full strength in all extremities Motor examination - right side: 4/5: biceps, triceps, wrist flexion, wrist extension, research tech, hip flexors, knee extensors, dorsiflexion, toe extension (EHL) , plantarflexion Motor examination - left side: 4/5: biceps, triceps, wrist flexion, wrist extension, research tech, hip flexors, knee extensors, dorsiflexion, toe extension (EHL) , plantarflexion Detailed sensory examination: intact Reflex and gait examination: intact Reflexes: 1+: ankle, bicep, knee, tricep - Musculoskeletal Musculoskeletal: no pain - Psychiatric Psychiatric: mood/affect appropriate, cooperative Results - Laboratory Findings CBC and BMP: 07/13/17 15:19 07/13/17 15:19 Abnormal Lab Findings: Abnormal Labs 07/13/17 07/13/17 07/13/17 15:19 15:19 15:19 RBC 3.47 L Hgb 10.1 L Hct 31.5 L RDW 18.7 H BUN 25 H Creatinine 1.40 H Glucose 126 H Total Creatine Kinase 41 L Urine Protein 07/13/17 16:24 RBC Hgb Hct RDW BUN Creatinine Glucose Total Creatine Kinase Urine Protein Trace H Assessment and Plan (1) TIA (transient ischemic attack) Status: Acute Code(s): G45.9 - TRANSIENT CEREBRAL ISCHEMIC ATTACK, UNSPECIFIED (2) Acute right arterial ischemic stroke, MCA (middle cerebral artery) Status: Acute Code(s): I63.511 - CEREB INFRC D/T UNSP OCCLS OR STENOS OF RIGHT MID CEREB ART (3) Left leg weakness Status: Chronic Code(s): R29.898 - OT SYMPTOMS AND SIGNS INVOLVING THE MUSCULOSKELETAL SYSTEM (4) Syncope Status: Resolved Code(s): R55 - SYNCOPE AND COLLAPSE Plan: This patient is a 66-year-old right-handed -Armenian male who was omitted to Hospital for evaluation of left leg weakness. Patient has a history of multiple strokes in the recent past. He has undergone extensive evaluation for his stroke at [facility] in the recent past. He was found to have severe arteriosclerotic disease of the brain producing multiple strokes. He was admitted to Hospital for further evaluation of left leg weakness. He has had this symptom recently in the past as well. He was just recently discharged from the hospital on 07/06/2017 after being evaluated for an acute syncopal episode. He did undergo a recent MRI of the brain during that admission on 05/2017 which failed to reveal any evidence of acute stroke. Patient has had no further syncopal episodes since discharge from the hospital. His clinical history is still consistent with recurrent TIAs. He is to continue with his current antiplatelet therapy and current antihyperlipidemic therapy. We will have him continue to follow up with the specialists at [facility]. We have recommended that physical therapy see him during this admission and consider referring him for home or outpatient physical therapy assessment and treatment given his multiple strokes. His overall prognosis at this time remains very guarded. We will continue close neurological follow-up of this patient during this admission. His overall prognosis at this time remains guarded. Time with Patient: Greater than 30
[2017-07-13] MEDS: FAMOTIDINE 20 MG TAB PO SCH (20:28)
[2017-07-13] MEDS ORDERED: ATORVASTATIN 80 MG TAB PO SCH (21:00)
[2017-07-14 06:20] LABS: Anisocytosis Slight; Basophils % (A) 0 %; CH 29.9; Eosinophils % (A) 1 %; HCT 28.3 % (39.0-53.0); HDW 2.81; Luc # (Auto) 0.17; Luc % (Auto) 3; Lymphocytes # (A) 1.8 k/uL (1.0-4.8); Lymphocytes % (A) 28 %; MCH 28.9 pg (25.0-35.0); MCHC 31.8 g/dL (31.0-37.0); Monocytes # (A) 0.3 k/uL (0-1.0); Monocytes % (A) 5 %; Neutrophils # (A) 4.1 k/uL (1.3-7.7); Neutrophils % (A) 64 %; RBC 3.11 m/uL (4.30-5.90); WBC 6.4 k/uL (3.8-10.6)
[2017-07-14 06:37] LABS: Anion Gap 8 mmol/L; Blood Urea Nitrogen 18 mg/dL (9-20); Calcium 9.3 mg/dL (8.4-10.2); Carbon Dioxide 24 mmol/L (22-30); Chloride 106 mmol/L (98-107); Cholesterol 160 mg/dL (<200); Glucose 113 mg/dL (74-99); HDL Cholesterol 44 mg/dL (40-60); Non-African American GFR(MDRD) >60 (>60 ml/min/1.73 sqM); Potassium 3.9 mmol/L (3.5-5.1); Sodium 138 mmol/L (137-145)
[2017-07-14] MEDS ORDERED: NON-FORMULARY DRUG (Glycopyrrolate/Formoterol Fum [Bevespi Aerosphere Inhaler] 1 PUFF) INHALATION SCH (08:00)
[2017-07-14] MEDS: IPRATROPIUM-ALBUTEROL 3 ML NEB INHALATION SCH ×2 (08:20→12:09)
[2017-07-14] MEDS: FAMOTIDINE 20 MG TAB PO SCH (08:46)
[2017-07-14 08:52] VITALS: TEMP 97.9
[2017-07-14] MEDS ORDERED: ASPIRIN 81 MG PO SCH (09:00)
[2017-07-14] MEDS ORDERED: CLOPIDOGREL 75 MG TAB PO SCH (09:00)
[2017-07-14 14:04] VITALS: BP 162/78; PULSE 69
--- NOTE | 2017-07-14 15:28 | P.HPIM ---
History of Present Illness This patient is a 66-year-old right-handed -[place]ian male who has a history of multiple strokes in the past. 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 He has had multiple strokes in the past. Patient was recently admitted to hospital for an episode of TIA. He was seen on 07/05/2017 for acute syncopal episode. He complained of weakness at the time. During this recent admission in early June he underwent an MRI of the brain on 07/06/2017 which revealed no evidence of acute stroke. There was mild to moderate cerebral atrophy noted with chronic small vessel ischemic changes. Multiple old infarcts was noted. Patient states he came to the hospital today due to weakness in his left leg. He had difficulty walking. He has had this episode in the recent past as well with no clear finding as to the underlying etiology. Patient states he did undergo some therapy a few months ago but has not been keeping up with physical therapy for his history of strokes. He denied any other symptoms of slurred speech or focal weakness on this recent episode. He was brought into the emergency room where he was evaluated by Dr. Tom. He was sent for a computed tomography scan of the brain which revealed no acute abnormality of stroke or hemorrhage. Confluent nonspecific white matter changes were noted. The patient states he is feeling somewhat better now that he has been admitted to hospital. We have recommended that he should be seen by physical therapy for evaluation and possible outpatient therapy as well. Neurology is now been consulted for further evaluation and recommendations. Patient was evaluated by neurology, patient is already on aspirin and Plavix and high-dose statin. If patient is cleared from neurology perspective patient will be discharged today patient's symptoms of weakness in the left leg completely resolved patient has 5 x 5 strength in bilateral lower limbs as well as upper limbs Review of Systems REVIEW OF SYSTEMS: CONSTITUTIONAL: No fever, no malaise, no fatigue. HEENT: No recent visual problems or hearing problems. Denied any sore throat. CARDIOVASCULAR: No chest pain, orthopnea, PND, no palpitations, no syncope. PULMONARY: No shortness of breath, no cough, no hemoptysis. GASTROINTESTINAL: No diarrhea, no nausea, no vomiting, no abdominal pain. Normoactive bowel sounds. NEUROLOGICAL: As mentioned in HPI HEMATOLOGICAL: Denies any bleeding or petechiae. GENITOURINARY: Denies any burning micturition, frequency, or urgency. MUSCULOSKELETAL/RHEUMATOLOGICAL: Denies any joint pain, swelling, or any muscle pain. ENDOCRINE: Denies any polyuria or polydipsia. The rest of the 14-point review of systems is negative. s. 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 OCC EDEMA FEET.Gastric Ulcer. Stroke on 02/23/17. Peg tube - patient's spouse says hasn't been used in a month and is scheduled for removal on 07/11/2017. stage 2 kidney disease History of Any Multi-Drug Resistant Organisms: None Reported Past Surgical History: Hernia Repair, Joint Replacement, Orthopedic Surgery Additional Past Surgical History / Comment(s): RT TOTAL KNEE, intracranial angioplasty at [facility] on 06/01/2017 Past Anesthesia/Blood Transfusion Reactions: No Reported Reaction Past Psychological History: No Psychological Hx Reported Smoking Status: Former smoker Past Alcohol Use History: Occasional Additional Past Alcohol Use History / Comment(s): SMOKED < 1PPD FOR 35 YEARS EST. Past Drug Use History: None Reported - Past Family History Mother Family Medical History: CVA/TIA, Diabetes Mellitus, Hyperlipidemia, Hypertension Medications and Allergies Home Medications Medication Instructions Recorded Confirmed Type Aspirin EC [Ecotrin Low Dose] 81 mg PO QA 05/26/17 07/13/17 History Atorvastatin [Lipitor] 80 mg PO HS 05/26/17 07/13/17 History Cholecalciferol [Vitamin D3] 1,000 unit PO QAM 05/26/17 07/13/17 History Clopidogrel [Plavix] 75 mg PO QA 05/26/17 07/13/17 History Glycopyrrolate/Formoterol Fum 1 puff INHALATION RT-BID 05/26/17 07/13/17 History [Bevespi Aerosphere Inhaler] Ipratropium-Albuterol Nebulize 3 ml INHALATION RT-BID 05/26/17 07/13/17 History [Duoneb 0.5 mg-3 mg/3 ml Soln] Tamsulosin HCl [Flomax] 0.4 mg PO QAM 05/26/17 07/13/17 History amLODIPine [Norvasc] 10 mg PO QAM 05/26/17 07/13/17 History Ferrous Sulfate [Feosol] 325 mg PO DAILY 06/29/17 07/13/17 History Loratadine [Claritin] 10 mg PO DAILY 06/29/17 07/13/17 History Clindamycin [Cleocin] 150 mg PO Q8H 07/13/17 07/13/17 History Ranitidine HCl [Zantac] 150 mg PO BID 07/13/17 07/13/17 History Allergies Allergy/AdvReac Type Severity Reaction Status Date / Time No Known Allergies Allergy Verified 07/13/17 16:08 Physical Exam Vitals: Vital Signs Temp Pulse Pulse Pulse Resp BP BP 07/14/17 12:00 69 162/78 07/14/17 08:30 76 07/14/17 08:20 76 07/14/17 08:00 97.9 F 76 136/65 07/14/17 03:53 96.5 F L 60 16 148/79 07/13/17 23:17 99 F 63 16 156/79 07/13/17 20:00 98.9 F 74 16 122/75 07/13/17 18:37 98.1 F 69 16 134/82 07/13/17 18:05 98.7 F 69 16 151/79 07/13/17 15:52 98.3 F 70 18 154/82 Pulse Ox 07/14/17 12:00 97 07/14/17 08:30 07/14/17 08:20 97 07/14/17 08:00 98 07/14/17 03:53 96 07/13/17 23:17 98 07/13/17 20:00 99 07/13/17 18:37 99 07/13/17 18:05 98 07/13/17 15:52 99 Intake and Output 07/14/17 07/14/17 07/14/17 06:59 14:59 22:59 Intake Total 10 150 Output Total 50 Balance -40 150 Intake: IV 10 10 0.9% ns flush 10 mL 10 10 Oral 140 Output: Urine 50 Other: Voiding Method Urinal Weight 75.2 kg PHYSICAL EXAMINATION: GENERAL: The patient is alert and oriented x3, not in any acute distress. Well developed, well nourished. HEENT: Pupils are round and equally reacting to light. EOMI. No scleral icterus. No conjunctival pallor. Normocephalic, atraumatic. No pharyngeal erythema. No thyromegaly. CARDIOVASCULAR: S1 and S2 present. No murmurs, rubs, or gallops. PULMONARY: Chest is clear to auscultation, no wheezing or crackles. ABDOMEN: Soft, nontender, nondistended, normoactive bowel sounds. No palpable organomegaly. MUSCULOSKELETAL: No joint swelling or deformity. EXTREMITIES: No cyanosis, clubbing, or pedal edema. NEUROLOGICAL: Gross neurological examination did not reveal any focal deficits. SKIN: No rashes. Results CBC & Chem 7: 07/14/17 06:03 07/14/17 06:03 Labs: Abnormal Lab Results - Last 24 Hours (Table) 07/13/17 07/13/17 07/13/17 Range/Units 15:19 15:19 15:19 RBC 3.47 L (4.30-5.90) m/uL Hgb 10.1 L (13.0-17.5) gm/dL Hct 31.5 L (39.0-53.0) % RDW 18.7 H (11.5-15.5) % BUN 25 H (9-20) mg/dL Creatinine 1.40 H (0.66-1.25) mg/dL Glucose 126 H (74-99) mg/dL Total Creatine Kinase 41 L (55-170) U/L Urine Protein (Negative) 07/13/17 07/14/17 07/14/17 Range/Units 16:24 06:03 06:03 RBC 3.11 L (4.30-5.90) m/uL Hgb 9.0 L (13.0-17.5) gm/dL Hct 28.3 L (39.0-53.0) % RDW 19.0 H (11.5-15.5) % BUN (9-20) mg/dL Creatinine (0.66-1.25) mg/dL Glucose 113 H (74-99) mg/dL Total Creatine Kinase (55-170) U/L Urine Protein Trace H (Negative) Microbiology - Last 24 Hours (Table) 07/13/17 16:24 Urine Culture - Preliminary Urine,Voided Thrombosis Risk Factor Assmnt - Choose All That Apply Each Risk Factor Represents 2 Points: Age 61-74 years Thrombosis Risk Factor Assessment Total Risk Factor Score: 2 Thrombosis Risk Factor Assessment Level: Low Risk Assessment and Plan Plan: #1 possible episode of TIA: Patient is already in antiplatelet therapy actually 2 and platelet medication along with high-dose statin. Management as mentioned above patient's symptoms of weakness in the left leg completely resolved. #2 history of multiple CVAs and TIAs in the past: Follows up in . Will obtain physical therapy at home for him. Next and #3 hyperlipidemia #4 hypertension #5 gastroesophageal reflux disease: Continue with proton pump inhibitor.
--- NOTE | 2017-07-14 15:28 | P.DS ---
Providers Date of admission: 07/13/17 17:11 Attending physician: Marita Silva Consults: 07/13/17 17:12 Consult Physician Routine Consulting Provider: Dino Mcghee Consult Reason/Comments: TIA Do you want consulting provider notified?: Yes Primary care physician: Rick Rowlandqvi [facility] Course: Please refer to HPI Plan - Discharge Summary New Discharge Prescriptions: No Action amLODIPine [Norvasc] 10 mg PO QAM Clopidogrel [Plavix] 75 mg PO QAM Ipratropium-Albuterol Nebulize [Duoneb 0.5 mg-3 mg/3 ml Soln] 3 ml INHALATION RT-BID Glycopyrrolate/Formoterol Fum [Bevespi Aerosphere Inhaler] 1 puff INHALATION RT-BID Cholecalciferol [Vitamin D3] 1,000 unit PO QAM Atorvastatin [Lipitor] 80 mg PO HS Aspirin EC [Ecotrin Low Dose] 81 mg PO QAM Tamsulosin HCl [Flomax] 0.4 mg PO QAM Ferrous Sulfate [Feosol] 325 mg PO DAILY Loratadine [Claritin] 10 mg PO DAILY Ranitidine HCl [Zantac] 150 mg PO BID Clindamycin [Cleocin] 150 mg PO Q8H Discharge Medication List Aspirin EC [Ecotrin Low Dose] 81 mg PO QAM 05/26/17 [History] Atorvastatin [Lipitor] 80 mg PO HS 05/26/17 [History] Cholecalciferol [Vitamin D3] 1,000 unit PO QAM 05/26/17 [History] Clopidogrel [Plavix] 75 mg PO QAM 05/26/17 [History] Glycopyrrolate/Formoterol Fum [Bevespi Aerosphere Inhaler] 1 puff INHALATION RT- BID 05/26/17 [History] Ipratropium-Albuterol Nebulize [Duoneb 0.5 mg-3 mg/3 ml Soln] 3 ml INHALATION RT -BID 05/26/17 [History] Tamsulosin HCl [Flomax] 0.4 mg PO QAM 05/26/17 [History] amLODIPine [Norvasc] 10 mg PO QAM 05/26/17 [History] Ferrous Sulfate [Feosol] 325 mg PO DAILY 06/29/17 [History] Loratadine [Claritin] 10 mg PO DAILY 06/29/17 [History] Clindamycin [Cleocin] 150 mg PO Q8H 07/13/17 [History] Ranitidine HCl [Zantac] 150 mg PO BID 07/13/17 [History] Follow up Appointment(s)/Referral(s): Rick Luke MD [Primary Care Provider] - 3 Days Patient Instructions/Handouts: Transient Ischemic Attack (DC) Discharge Disposition: HOME WITH HOME HEALTH SERVICES
== END 2017-07-14 15:20 | disposition home health service (06) ==
LOC: EC 14:53 → 6SEL 17:11
PROVIDERS: ADMIT Internal Medicine; ATTEND Internal Medicine
DX: G45.9 Transient cerebral ischemic attack, unspecified (principal); R53.1 Weakness; K21.9 Gastro-esophageal reflux disease without esophagitis; E78.5 Hyperlipidemia, unspecified; I10 Essential (primary) hypertension; I69.354 Hemiplegia and hemiparesis following cerebral infarction affecting left non-dominant side; Z79.899 Other long term (current) drug therapy; Z79.02 Long term (current) use of antithrombotics/antiplatelets; Z79.82 Long term (current) use of aspirin; Z87.11 Personal history of peptic ulcer disease; Z87.891 Personal history of nicotine dependence; Z83.3 Family history of diabetes mellitus; Z82.49 Family history of ischemic heart disease and other diseases of the circulatory system
CPT/HCPCS: 99285; 36415; 94640; 94760; 93005; 97163; 80061; 80053; 80048; 82550; 82553; 83605; 84484; 85025 ×2; 85610; 85730; 81003; 87040; 87086; 71020; 70450; G0378 ×2

== ENCOUNTER 2017-08-28 17:22 | Inpatient (IN) | payer MEDICARE, BC ==
[2017-08-28] MEDS ORDERED: ACETAMINOPHEN TAB 500 MG TAB PO STA (17:50)
[2017-08-28] MEDS ORDERED: IBUPROFEN 600 MG TAB PO STA (17:50)
--- NOTE | 2017-08-28 17:56 | ED ---
Fever HPI - General Chief Complaint: Fever Stated Complaint: Stroke Symptoms Last night Time Seen by Provider: 08/28/17 17:40 Source: patient, family, RN notes reviewed, old records reviewed Mode of arrival: wheelchair Limitations: no limitations - History of Present Illness Initial Comments: Patient is a 66-year-old male presents emergency Department chief complaint of TIA symptoms last night including increased weakness and unsteady gait. Patient has a history of strokes. Patient's reports that the symptoms lasted for a few hours. The patient refused to come to the hospital that time. Patient went to physical therapy today, and was encouraged to go to his primary care physician. Patient was able to the primary care physician and lab work was obtained. They were called as patient had an elevated white blood cell count of 15.5. Told to come to the emergency department further evaluation. At this time patient reports that his gait and steadiness has improved. He does arrive to the emergency department with a fever 101.5. Patient did not know he had a fever. He denies any chest pain, shortness of breath. He denies any specific abdominal pain. He reports that he is somewhat constipated. Denies any sore throat or upper respiratory congestion. Past medical history includes CVAs, TIAs, GERD, hyperlipidemia, hypertension, schizoaffective disease, renal disease. Surgical history includes right total knee, intracranial angioplasty [facility] on 06/01/2017. - Related Data Home Medications Medication Instructions Recorded Confirmed Aspirin EC [Ecotrin Low Dose] 81 mg PO QAM 05/26/17 08/28/17 Atorvastatin [Lipitor] 80 mg PO HS 05/26/17 08/28/17 Cholecalciferol [Vitamin D3] 1,000 unit PO QAM 05/26/17 08/28/17 Glycopyrrolate/Formoterol Fum 1 puff INHALATION RT-BID 05/26/17 08/28/17 [Bevespi Aerosphere Inhaler] Ipratropium-Albuterol Nebulize 3 ml INHALATION RT-BID 05/26/17 08/28/17 [Duoneb 0.5 mg-3 mg/3 ml Soln] Tamsulosin HCl [Flomax] 0.4 mg PO QAM 05/26/17 08/28/17 amLODIPine [Norvasc] 10 mg PO QAM 05/26/17 08/28/17 Ferrous Sulfate [Feosol] 325 mg PO DAILY 06/29/17 08/28/17 Ranitidine HCl [Zantac] 150 mg PO HS 07/13/17 08/28/17 Benzoyl Peroxide [Benzac AC Wash] 1 applic TOPICAL DAILY 08/28/17 08/28/17 Clindamycin Topical Soln 1 applic TOPICAL BID 08/28/17 08/28/17 [Cleocin-T Topical Soln] Docusate [Colace] 100 mg PO DAILY 08/28/17 08/28/17 Hydrocortisone Cream 1 applic TOPICAL BID 08/28/17 08/28/17 [Hydrocortisone 2.5% Cream] Ketoconazole 2% Shampoo [Nizoral] 1 applic TOPICAL MOTH 08/28/17 08/28/17 Sertraline [Zoloft] 25 mg PO DAILY 08/28/17 08/28/17 Tolterodine Tartrate [Detrol LA] 4 mg PO DAILY 08/28/17 08/28/17 Allergies Allergy/AdvReac Type Severity Reaction Status Date / Time No Known Allergies Allergy Verified 08/28/17 18:30 Review of Systems ROS Statement: Those systems with pertinent positive or pertinent negative responses have been documented in the HPI. ROS Other: All systems not noted in ROS Statement are negative. 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 OCC EDEMA FEET.Gastric Ulcer. Stroke on 02/23/17. Peg tube - patient's spouse says hasn't been used in a month and is scheduled for removal on 07/11/2017. stage 2 kidney disease History of Any Multi-Drug Resistant Organisms: None Reported Past Surgical History: Hernia Repair, Joint Replacement, Orthopedic Surgery Additional Past Surgical History / Comment(s): RT TOTAL KNEE, intracranial angioplasty at [facility] on 06/01/2017 Past Anesthesia/Blood Transfusion Reactions: No Reported Reaction Past Psychological History: No Psychological Hx Reported Smoking Status: Former smoker Past Alcohol Use History: Occasional Past Drug Use History: None Reported - Past Family History Mother Family Medical History: CVA/TIA, Diabetes Mellitus, Hyperlipidemia, Hypertension General Exam - General Exam Comments Initial Comments: This is a 66-year-old male. Patient appears to be very weak. Patient is alert and oriented 4. Limitations: no limitations General appearance: alert, in no apparent distress Head exam: Present: atraumatic, normocephalic, normal inspection Eye exam: Present: normal appearance, PERRL, EOMI. Absent: scleral icterus, conjunctival injection, periorbital swelling ENT exam: Present: normal exam, mucous membranes moist Neck exam: Present: normal inspection, full ROM, lymphadenopathy (Patient has some mild anterior cervical lymphadenopathy.). Absent: tenderness, meningismus Respiratory exam: Present: normal lung sounds bilaterally. Absent: respiratory distress, wheezes, rales, rhonchi, stridor Cardiovascular Exam: Present: regular rate, normal rhythm, normal heart sounds. Absent: systolic murmur, diastolic murmur, rubs, gallop, clicks GI/Abdominal exam: Present: soft, normal bowel sounds. Absent: distended, tenderness, guarding, rebound, rigid Extremities exam: Present: normal inspection, full ROM, normal capillary refill. Absent: tenderness, pedal edema, joint swelling, calf tenderness Back exam: Present: normal inspection Neurological exam: Present: alert, oriented X3, CN II-XII intact Expanded Patient oriented to: Present: person, place, time Speech: Present: fluid speech Cranial nerves: EOM's Intact: Normal, Facial Sensation: Normal Cerebellar function: Finger to Nose: Normal ( Minor discrepancy on Finger to nose test, patient had tremors ) Upper motor neuron: Pronator Drift: Normal Sensory exam: Upper Extremity Light Touch: Normal, Lower Extremity Light Touch: Normal Motor strength exam: RUE: 5, LUE: 5, RLE: 5, LLE: 5 Eye Response: (4) open spontaneously Motor Response: (6) obeys commands Verbal Response: (5) oriented [place] Total: 15 Psychiatric exam: Present: normal affect, normal mood Skin exam: Present: warm, dry, intact, normal color. Absent: rash Course Vital Signs 08/28/17 08/28/17 17:31 19:55 Temperature 101.1 F H Pulse Rate 90 74 Respiratory 18 18 Rate Blood Pressure 106/62 125/70 O2 Sat by Pulse 100 98 Oximetry Medical Decision Making - Medical Decision Making 66-year-old male presents emergency department with increased left-sided weakness, and fatigue last night. Went to his primary care provider today and had blood work obtained. Was sent in for an elevated white blood cell count. Upon arrival patient had a fever 101.1. Patient complains in no specific symptoms causing the fever. At this time lab work was initiated patient is given 2 L bolus sepsis protocol ordered. Patient does have evidence of urinary tract infection withOver 79 white blood cells and positive leukocyte esterase. Urine culture will be obtained. Patient's lactic acid is negative. At this time patient chest x-ray shows a erythematous aorta, no evidence of any acute changes. CT of brain without contrast was ordered. There is no evidence of any acute abnormalities. There are small lacunar infarcts noted which are stable from prior exams. At this time patient's case assessment RSI. I will make the patient for urine or tract infection, started on IV Levaquin. I also admit him for the increased weakness and TIA symptoms. He does see Dr. Mcghee in the past. He'll be consulted. Discussed this with Dana barber nurse practitioner for [facility]. - Lab Data Result diagrams: 08/28/17 17:55 08/28/17 17:55 Lab Results 08/28/17 08/28/17 08/28/17 Range/Units 17:55 17:55 17:55 WBC 13.6 H (3.8-10.6) k/uL RBC 3.22 L (4.30-5.90) m/uL Hgb 9.1 L (13.0-17.5) gm/dL Hct 29.8 L (39.0-53.0) % MCV 92.7 (80.0-100.0) fL MCH 28.2 (25.0-35.0) pg MCHC 30.5 L (31.0-37.0) g/dL RDW 17.7 H (11.5-15.5) % Plt Count 273 (150-450) k/uL Neutrophils % 77 % Lymphocytes % 14 % Monocytes % 6 % Eosinophils % 1 % Basophils % 0 % Neutrophils # 10.4 H (1.3-7.7) k/uL Lymphocytes # 1.9 (1.0-4.8) k/uL Monocytes # 0.8 (0-1.0) k/uL Eosinophils # 0.1 (0-0.7) k/uL Basophils # 0.0 (0-0.2) k/uL Hypochromasia Slight Anisocytosis Slight PT (9.0-12.0) sec INR (<1.2) APTT (22.0-30.0) sec Sodium 133 L (137-145) mmol/L Potassium 3.7 (3.5-5.1) mmol/L Chloride 99 (98-107) mmol/L Carbon Dioxide 24 (22-30) mmol/L Anion Gap 10 mmol/L BUN 19 (9-20) mg/dL Creatinine 1.40 H (0.66-1.25) mg/dL Est GFR (MDRD) Af Amer >60 (>60 ml/min/1.73 sqM) Est GFR (MDRD) Non-Af 51 (>60 ml/min/1.73 sqM) Glucose 108 H (74-99) mg/dL Plasma Lactic Acid Del (0.7-2.0) mmol/L Calcium 9.2 (8.4-10.2) mg/dL Total Bilirubin 0.3 (0.2-1.3) mg/dL AST 19 (17-59) U/L ALT 37 (21-72) U/L Alkaline Phosphatase 95 (38-126) U/L Total Creatine Kinase 99 (55-170) U/L CK-MB (CK-2) 1.0 (0.0-2.4) ng/mL CK-MB (CK-2) Rel Index 1.0 Troponin I <0.012 (0.000-0.034) ng/mL Total Protein 6.4 (6.3-8.2) g/dL Albumin 3.4 L (3.5-5.0) g/dL Urine Color Urine Appearance (Clear) Urine pH (5.0-8.0) Ur Specific [place] (1.001-1.035) Urine Protein (Negative) Urine Glucose (UA) (Negative) Urine Ketones (Negative) Urine Blood (Negative) Urine Nitrite (Negative) Urine Bilirubin (Negative) Urine Urobilinogen (<2.0) mg/dL Ur Leukocyte Esterase (Negative) Urine RBC (0-5) /hpf Urine WBC (0-5) /hpf Urine Bacteria (None) /hpf Influenza Type A RNA (Not Detectd) Influenza Type B (PCR) (Not Detectd) Group A Strep Rapid (Negative) 10/31/17 10/31/17 10/31/17 Range/Units 17:55 17:55 18:14 WBC (3.8-10.6) k/uL RBC (4.30-5.90) m/uL Hgb (13.0-17.5) gm/dL Hct (39.0-53.0) % MCV (80.0-100.0) fL MCH (25.0-35.0) pg MCHC (31.0-37.0) g/dL RDW (11.5-15.5) % Plt Count (150-450) k/uL Neutrophils % % Lymphocytes % % Monocytes % % Eosinophils % % Basophils % % Neutrophils # (1.3-7.7) k/uL Lymphocytes # (1.0-4.8) k/uL Monocytes # (0-1.0) k/uL Eosinophils # (0-0.7) k/uL Basophils # (0-0.2) k/uL Hypochromasia Anisocytosis PT 10.7 (9.0-12.0) sec INR 1.1 (<1.2) APTT 27.3 (22.0-30.0) sec Sodium (137-145) mmol/L Potassium (3.5-5.1) mmol/L Chloride (98-107) mmol/L Carbon Dioxide (22-30) mmol/L Anion Gap mmol/L BUN (9-20) mg/dL Creatinine (0.66-1.25) mg/dL Est GFR (MDRD) Af Amer (>60 ml/min/1.73 sqM) Est GFR (MDRD) Non-Af (>60 ml/min/1.73 sqM) Glucose (74-99) mg/dL Plasma Lactic Acid Del 1.3 (0.7-2.0) mmol/L Calcium (8.4-10.2) mg/dL Total Bilirubin (0.2-1.3) mg/dL AST (17-59) U/L ALT (21-72) U/L Alkaline Phosphatase (38-126) U/L Total Creatine Kinase (55-170) U/L CK-MB (CK-2) (0.0-2.4) ng/mL CK-MB (CK-2) Rel Index Troponin I (0.000-0.034) ng/mL Total Protein (6.3-8.2) g/dL Albumin (3.5-5.0) g/dL Urine Color Urine Appearance (Clear) Urine pH (5.0-8.0) Ur Specific [place] (1.001-1.035) Urine Protein (Negative) Urine Glucose (UA) (Negative) Urine Ketones (Negative) Urine Blood (Negative) Urine Nitrite (Negative) Urine Bilirubin (Negative) Urine Urobilinogen (<2.0) mg/dL Ur Leukocyte Esterase (Negative) Urine RBC (0-5) /hpf Urine WBC (0-5) /hpf Urine Bacteria (None) /hpf Influenza Type A RNA Not Detected (Not Detectd) Influenza Type B (PCR) Not Detected (Not Detectd) Group A Strep Rapid (Negative) 08/28/17 08/28/17 Range/Units 18:27 18:42 WBC (3.8-10.6) k/uL RBC (4.30-5.90) m/uL Hgb (13.0-17.5) gm/dL Hct (39.0-53.0) % MCV (80.0-100.0) fL MCH (25.0-35.0) pg MCHC (31.0-37.0) g/dL RDW (11.5-15.5) % Plt Count (150-450) k/uL Neutrophils % % Lymphocytes % % Monocytes % % Eosinophils % % Basophils % % Neutrophils # (1.3-7.7) k/uL Lymphocytes # (1.0-4.8) k/uL Monocytes # (0-1.0) k/uL Eosinophils # (0-0.7) k/uL Basophils # (0-0.2) k/uL Hypochromasia Anisocytosis PT (9.0-12.0) sec INR (<1.2) APTT (22.0-30.0) sec Sodium (137-145) mmol/L Potassium (3.5-5.1) mmol/L Chloride (98-107) mmol/L Carbon Dioxide (22-30) mmol/L Anion Gap mmol/L BUN (9-20) mg/dL Creatinine (0.66-1.25) mg/dL Est GFR (MDRD) Af Amer (>60 ml/min/1.73 sqM) Est GFR (MDRD) Non-Af (>60 ml/min/1.73 sqM) Glucose (74-99) mg/dL Plasma Lactic Acid Del (0.7-2.0) mmol/L Calcium (8.4-10.2) mg/dL Total Bilirubin (0.2-1.3) mg/dL AST (17-59) U/L ALT (21-72) U/L Alkaline Phosphatase (38-126) U/L Total Creatine Kinase (55-170) U/L CK-MB (CK-2) (0.0-2.4) ng/mL CK-MB (CK-2) Rel Index Troponin I (0.000-0.034) ng/mL Total Protein (6.3-8.2) g/dL Albumin (3.5-5.0) g/dL Urine Color Light Yellow Urine Appearance Cloudy (Clear) Urine pH 6.0 (5.0-8.0) Ur Specific [place] 1.006 (1.001-1.035) Urine Protein Trace H (Negative) Urine Glucose (UA) Negative (Negative) Urine Ketones Negative (Negative) Urine Blood Trace H (Negative) Urine Nitrite Negative (Negative) Urine Bilirubin Negative (Negative) Urine Urobilinogen <2.0 (<2.0) mg/dL Ur Leukocyte Esterase Large H (Negative) Urine RBC 1 (0-5) /hpf Urine WBC 79 H (0-5) /hpf Urine Bacteria Many H (None) /hpf Influenza Type A RNA (Not Detectd) Influenza Type B (PCR) (Not Detectd) Group A Strep Rapid Negative (Negative) 08/28/17 18:15 EKG shows sinus rhythm with occasional PACs. Minimal voltage criteria for LVH. Nonspecific ST-T of normality. Ventricular rate of 83 bpm. ID interval 174 ms. QRS duration 80 ms. QTC 374/439 ms. - Radiology Data Radiology results: report reviewed Atheromatous aorta.. No active cardiopulmonary disease. No changes. CT shows survived and chronic small vessel ischemia. Old multiple lacunar infarcts. No change compared to last exam. Disposition Clinical Impression: Transient cerebral ischemia, UTI (urinary tract infection), Hyperlipidemia, Hypertension, Peptic ulcer disease Disposition: ADMITTED IP TO THIS HOSP Condition: Stable Referrals: Rick Luke MD [Primary Care Provider] - 1-2 days Time of Disposition: 20:15
[2017-08-28 18:07] LABS: Anisocytosis Slight; Basophils % (A) 0 %; CH 29.7; CHCM 32.1; Eosinophils # (A) 0.1 k/uL (0-0.7); Eosinophils % (A) 1 %; HCT 29.8 % (39.0-53.0); HDW 2.93; HGB 9.1 gm/dL (13.0-17.5); Hypochromasia Slight; Luc # (Auto) 0.31; Luc % (Auto) 2; Lymphocytes # (A) 1.9 k/uL (1.0-4.8); Lymphocytes % (A) 14 %; MCH 28.2 pg (25.0-35.0); MCHC 30.5 g/dL (31.0-37.0); MCV 92.7 fL (80.0-100.0); Mean Platelet Volume 7.4; Monocytes # (A) 0.8 k/uL (0-1.0); Monocytes % (A) 6 %; Neutrophils # (A) 10.4 k/uL (1.3-7.7); Neutrophils % (A) 77 %; RBC 3.22 m/uL (4.30-5.90); RDW 17.7 % (11.5-15.5); WBC 13.6 k/uL (3.8-10.6); WBC (Perox) 13.29
[2017-08-28] MEDS: SODIUM CHLORIDE 0.9% 500 ML IV SCH ×4 (18:15→20:25)
[2017-08-28 18:17] LABS: ALT 37 U/L (21-72); AST 19 U/L (17-59); Alkaline Phosphatase 95 U/L (38-126); Anion Gap 10 mmol/L; Blood Urea Nitrogen 19 mg/dL (9-20); Calcium 9.2 mg/dL (8.4-10.2); Carbon Dioxide 24 mmol/L (22-30); Chloride 99 mmol/L (98-107); Glucose 108 mg/dL (74-99); Non-African American GFR(MDRD) 51 (>60 ml/min/1.73 sqM); Potassium 3.7 mmol/L (3.5-5.1); Sodium 133 mmol/L (137-145); Total Bilirubin 0.3 mg/dL (0.2-1.3); Total Protein 6.4 g/dL (6.3-8.2)
[2017-08-28 18:18] LABS: INR 1.1 (<1.2); Partial Thromboplastin Time 27.3 sec (22.0-30.0); Prothrombin Time 10.7 sec (9.0-12.0)
[2017-08-28 18:24] LABS: Creatine Kinase 99 U/L (55-170)
[2017-08-28 18:36] LABS: Troponin I <0.012 ng/mL (0.000-0.034)
[2017-08-28 18:49] LABS: Appearance,Urine Cloudy (Clear); Bacteria,Urine Many /hpf; Bilirubin,Urine Negative (Negative); Glucose,Urine (UA) Negative (Negative); Ketones,Urine Negative (Negative); Leukocyte Esterase,Urine Large (Negative); Nitrite,Urine Negative (Negative); Particle Count 14119; Protein,Urine Trace (Negative); RBC,Urine 1 /hpf (0-5); Specific Gravity,Urine 1.006 (1.001-1.035); UA Billing (MACRO vs. MICRO) MICRO; Urobilinogen,Urine <2.0 mg/dL (<2.0); WBC,Urine 79 /hpf (0-5)
--- NOTE | 2017-08-28 19:12 | XR ---
EXAMINATION TYPE: XR chest 2V DATE OF EXAM: 08/28/2017 COMPARISON: 07/13/2017 HISTORY: Fever TECHNIQUE: Frontal and lateral views of the chest are obtained. FINDINGS: There is no heart failure nor confluent pneumonic infiltrate. Thoracic aorta is atheromato us. There is no pleural effusion. Bony thorax is intact. IMPRESSION: Atheromatous aorta. No active cardiopulmonary disease. No change.
--- NOTE | 2017-08-28 19:14 | CT ---
EXAMINATION TYPE: CT brain wo con DATE OF EXAM: 08/28/2017 COMPARISON: 07/13/2017 HISTORY: Left sided weakness CT DLP: 1153 mGycm Automated exposure control for dose reduction was used. FINDINGS: There is cerebral cortical atrophy. There is patchy hypodensity in the periventricular white matter a nd more in the right internal capsule. There are 5 mm multiple lacunar infarcts in the left and right internal capsule and more on the right side. There is a 2 cm right posterior frontal lobe cortical i nfarct. The calvarium is intact. IMPRESSION: CEREBRAL ATROPHY AND CHRONIC SMALL VESSEL ISCHEMIA. OLD MULTIPLE LACUNAR INFARCTS. NO CHANGE COMPARED TO LAST EXAM.
[2017-08-28] MEDS ORDERED: LEVOFLOXACIN 750MG-D5W PMX 750 MG in DEXTROSE/WATER 1 150ML.BAG IVPB STA (20:08)
[2017-08-28] MEDS ORDERED: ONDANSETRON 4 MG/2 ML VIAL IVP PRN (20:16)
[2017-08-28] MEDS ORDERED: BISACODYL 5 MG TABLET.DR PO PRN (20:16)
[2017-08-28] MEDS ORDERED: NALOXONE 0.4 MG/ML 1 ML VIAL IV PRN (20:16)
[2017-08-28] MEDS ORDERED: ACETAMINOPHEN TAB 325 MG TAB PO PRN (20:16)
[2017-08-28] MEDS ORDERED: HYDROmorphone 1 MG/ML 1 ML SYRINGE IVP PRN (20:16)
[2017-08-28] MEDS ORDERED: IBUPROFEN 400 MG TAB PO PRN (20:16)
[2017-08-28] MEDS ORDERED: HYDROmorphone 0.5 MG/0.5 ML SYRINGE IVP PRN (20:16)
[2017-08-28] MEDS ORDERED: ALPRAZolam 0.25 MG TAB PO PRN (20:16)
[2017-08-28 21:59] VITALS: BMI 21.3
[2017-08-28] MEDS: ATORVASTATIN 80 MG TAB PO SCH (23:43)
[2017-08-28] MEDS: FAMOTIDINE 20 MG TAB PO SCH (23:43)
[2017-08-29 05:55] LABS: Cholesterol 99 mg/dL (<200); HDL Cholesterol 32 mg/dL (40-60)
[2017-08-29] MEDS: SODIUM CHLORIDE 0.9% 1,000 ML IV SCH ×4 (08:20→21:40)
[2017-08-29] MEDS ORDERED: PANTOPRAZOLE 40 MG/10 ML VIAL IV SCH (09:00)
[2017-08-29] MEDS ORDERED: ASPIRIN 81 MG PO SCH (09:00)
[2017-08-29] MEDS ORDERED: CLINDAMYCIN TOPICAL SCH (10:45)
[2017-08-29] MEDS ORDERED: amLODIPine 10 MG TAB PO SCH (10:45)
[2017-08-29] MEDS ORDERED: NON-FORMULARY DRUG (Aspirin Ec 81 MG) PO SCH (10:45)
[2017-08-29 10:58] LABS: Anisocytosis Slight; Basophils % (A) 0 %; CH 28.4; CHCM 30.2; Eosinophils # (A) 0.2 k/uL (0-0.7); Eosinophils % (A) 2 %; HDW 2.62; HGB 8.2 gm/dL (13.0-17.5); Hypochromasia Marked; Luc # (Auto) 0.19; Luc % (Auto) 2; Lymphocytes # (A) 1.5 k/uL (1.0-4.8); Lymphocytes % (A) 15 %; MCH 28.5 pg (25.0-35.0); MCHC 30.2 g/dL (31.0-37.0); MCV 94.4 fL (80.0-100.0); Mean Platelet Volume 8.1; Monocytes # (A) 0.6 k/uL (0-1.0); Monocytes % (A) 6 %; Neutrophils # (A) 7.3 k/uL (1.3-7.7); Neutrophils % (A) 75 %; RBC 2.86 m/uL (4.30-5.90); RDW 19.2 % (11.5-15.5); WBC 9.8 k/uL (3.8-10.6)
[2017-08-29 11:04] LABS: Anion Gap 6 mmol/L; Blood Urea Nitrogen 12 mg/dL (9-20); Calcium 8.7 mg/dL (8.4-10.2); Carbon Dioxide 24 mmol/L (22-30); Chloride 108 mmol/L (98-107); Glucose 88 mg/dL (74-99); Non-African American GFR(MDRD) >60 (>60 ml/min/1.73 sqM); Potassium 3.7 mmol/L (3.5-5.1); Sodium 138 mmol/L (137-145)
[2017-08-29] MEDS: DOCUSATE 100 MG CAP PO SCH (12:04)
[2017-08-29] MEDS: CHOLECALCIFEROL 1,000 UNIT TAB PO SCH (12:04)
[2017-08-29] MEDS: FERROUS SULFATE 325 MG TAB PO SCH (12:04)
[2017-08-29] MEDS: OXYBUTYNIN XL 5 MG TAB.ER.24 PO SCH (12:05)
[2017-08-29] MEDS: SERTRALINE 25 MG TAB PO SCH (12:05)
[2017-08-29] MEDS: TAMSULOSIN 0.4 MG CAP.ER.24H PO SCH (12:06)
[2017-08-29] MEDS: HYDROCORTISONE 1% CREAM 30 GM TUBE TOPICAL SCH ×2 (13:49→21:00)
[2017-08-29] MEDS: BENZOYL PEROXIDE 10% TOPICAL SCH (13:55)
--- NOTE | 2017-08-29 15:12 | HP ---
HISTORY AND PHYSICAL DATE OF SERVICE: 08/29/2017. CHIEF COMPLAINTS: Weakness and fever. HISTORY OF PRESENT ILLNESS: This 66-year-old gentleman with a past medical history of multiple medical problems including history of multiple CVA, TIA, GERD, hypertension, hyperlipidemia being followed by Dr. Luke in the outpatient setting, recently admitted to [facility]. patient was in [facility] apparently. The patient improved significantly. The patient went home. Currently the patient complained of generalized weakness and tiredness, shaking of the left arm. The patient also has a fever, elevated blood counts at 15.5, and the patient admitted for further evaluation and treatment. After admission, the CT scan of the brain did not show any acute abnormality. atrophy noted with multiple lacunar infarcts. There is no history of fever, rigors, headache, loss of consciousness or seizures. PAST MEDICAL HISTORY: History of CVA, TIA, GERD, hypertension, hyperlipidemia, history of osteomyelitis of the 3rd toe. MEDICATIONS: Prior to admission include home medications: 1. Norvasc 10 mg p.r.n. 2. Detrol LA 4 mg p.o. daily. 3. Flomax 0.4 daily. 4. Zoloft 25 mg daily. 5. Zantac 150 mg q.h.s. 6. Nasarel q.month. 7. DuoNeb q.i.d. and p.r.n. 8. Hydrocortisone 1 application b.i.d. 9. Glycopyrrolate. 10.Iron sulfate 325 mg. 11.Colace 100 mg. 12.Cleocin-T 1 application b.i.d. 13.Vitamin D 3000 daily. 14.Benzac 1 application daily. 15.Lipitor 80 mg daily. 16.Ecotrin 81 mg q.a.m. ALLERGIES: None. FAMILY HISTORY: History of CVA, TIA, diabetes, hypertension, hyperlipidemia in the family. SOCIAL HISTORY: No history of smoking. No alcohol. REVIEW OF SYSTEMS: ENT: No diminished vision. No diminished hearing. Cardiovascular: No angina or palpitations. RESPIRATORY: As mentioned earlier. GI no nausea, no vomiting. no dysuria. Nervous system: No numbness or weakness. Allergy/Immunology: No asthma or hayfever. Central nervous system: As mentioned earlier. Hematology/Oncology: As mentioned. Endocrine: No history of diabetes or hypothyroidism. Constitutional: As mentioned earlier. Dermatology: Negative. Rheumatology: Negative. Psychiatric: As mentioned earlier. PHYSICAL EXAMINATION: Alert and oriented x3. Pulse 69, blood pressure 150/70, respirations 16, temperature 97.2, pulse ox 97% on room air. HEENT: Conjunctivae normal. Oral mucosa moist. Neck is no jugular venous distention. No carotid bruit. No lymph node enlargement. Cardiovascular system: S1, S2 muffled. Respiratory: Breath sounds diminished in the bases. A few scattered rhonchi. No crackles. ABDOMEN: Soft, nontender. No mass palpable. Legs no edema and no swelling. NERVOUS SYSTEM: Higher functions as mentioned earlier. Moves all four limbs. No focal motor deficits. Diffusely weak. Lymphatics: No lymph nodes palpable in the neck, axillae or groin. SKIN: No ulcer, rash or bleeding. LAB: WBC 13.2, hemoglobin 9.1. ASSESSMENT: 1. Acute urinary tract infection with sepsis, possibly. 2. Rule out transient ischemic attack. 3. History of multiple transient ischemic attacks. 4. Multiple cerebrovascular accidents. 5. Gastroesophageal reflux disease. 6. Hypertension. 7. Hyperlipidemia. 8. Gait dysfunction. 9. History of gastric ulcer. 10.History of degenerative joint disease. RECOMMENDATIONS AND DISCUSSION: In this 66-year-old gentleman who presented with multiple complex medical issues , we will monitor the patient closely, continue the current medications, management and symptomatic treatment, initiate broad-spectrum IV antibiotics. Obtain cultures. Otherwise I would also recommend PT/OT evaluation . DVT prophylaxis. Proton pump inhibitors. Repeat labs. Guarded prognosis because of multiple complex medical issues. Further recommendations to follow. See orders for details. Discussed with staff. MMODL / IJN: [id number] / PIETRO
[2017-08-29] MEDS: HEPARIN SODIUM,PORCINE 5,000 UNIT/ML 1 ML VIAL SQ SCH ×2 (16:36→20:59)
--- NOTE | 2017-08-29 19:55 | EEG ---
ELECTROENCEPHALOGRAM REPORT REASON FOR TESTING: Transient ischemic attack. DESCRIPTION OF THE PROCEDURE: This EEG was performed using a 21-channel digital electroencephalograph, following international 10-20 system. DESCRIPTION OF THE RECORDING: From the beginning of the tracing, and with patient's eyes closed, the background rhythm was mostly consisting of 8 Hz alpha frequency in the posterior occipital leads. No obvious asymmetry is seen. Photic stimulation was performed with a minimal driving response seen. No pathological waves were elicited. Hyperventilation was not performed. The patient does reach stage II of sleep during the tracing, and occasional sleep spindles are seen. No epileptiform discharges were noticed. His EKG lead showed a regular rate and rhythm. INTERPRETATION: This asleep and awake EEG can be considered within normal limits. There was no asymmetry seen. No epileptiform discharges were noticed. The absence of epileptiform discharges does not rule out the diagnosis of epilepsy; therefore clinical correlation is recommended. JORDY / MYLENE: [id number] /
[2017-08-29] MEDS ORDERED: LEVOFLOXACIN 500MG-D5W PMX 500 MG in DEXTROSE/WATER 1 100ML.BAG IVPB SCH (20:00)
[2017-08-29] MEDS ORDERED: GLYCOPYRROLATE INHALATION SCH (20:00)
[2017-08-29] MEDS ORDERED: FORMOTEROL FUM INHALATION SCH (20:00)
[2017-08-29] MEDS: IPRATROPIUM-ALBUTEROL 3 ML NEB INHALATION SCH (20:43)
[2017-08-29] MEDS: ATORVASTATIN 80 MG TAB PO SCH (20:59)
[2017-08-29] MEDS: FAMOTIDINE 20 MG TAB PO SCH (20:59)
[2017-08-29 22:27] VITALS: TEMP 98
--- NOTE | 2017-08-29 23:01 | CONS ---
CONSULTATION DATE OF CONSULTATION: 08/29/2017 CHIEF COMPLAINT: Transient ischemic attack. HISTORY OF PRESENT ILLNESS: Mr. Sesay is a pleasant 66-year-old -Ethiopian male who is being evaluated by the neurology service per the request of Dr. Church for a transient ischemic attack. The patient was brought into [facility] Emergency room after the patient and his noticed weakness involving his left lower extremity. The patient was trying to ambulate and it was noticed that he was dragging his left leg. His symptoms have now resolved. The patient does have history of multiple ischemic strokes. He was being managed medically initially, but when he continued to have further strokes, he was evaluated at [facility], where a CT angiogram of the brain showed intracranial artery stenosis. His informs me that he had a balloon procedure done. He was placed on Plavix and aspirin at that time. He followed up with his neurologist at [facility] a few weeks ago and Plavix was discontinued. He is currently on aspirin 81 mg daily at home. I did review his CT scan of the brain which showed multiple lacunar infarcts involving bilateral internal capsules and right frontal lobe. I reviewed his EEG from today which was normal. His CBC showed anemia with a hemoglobin of 8.2 and hematocrit of 27%. The patient did have a fever on arrival and his urinalysis showed evidence of a urinary tract infection with a WBC of 79 and large leukocyte esterase. His basic metabolic profile, flu test, cardiac enzymes and fasting lipid panel were reviewed and were normal. At the time of my evaluation, the patient is lying in his bed and appears to be in no acute distress. He states that his strength has returned to baseline. His is at bedside and she states that he has been having some memory issues as well. He is being worked up for possible dementia. PAST MEDICAL HISTORY: Strokes, recurrent urinary tract infections, hypertension, gastroesophageal reflux disease, dyslipidemia, history of osteomyelitis, urinary retention, depression, iron- deficiency. FAMILY HISTORY: Positive for strokes, diabetes, hypertension and dyslipidemia. SOCIAL HISTORY: He denies any tobacco, alcohol or drug use. HOME MEDICATIONS: Reviewed in the chart. ALLERGIES: No known drug allergies. REVIEW OF SYSTEMS: CONSTITUTIONAL: Positive for fatigue. EYES: Negative. ENT: Negative. CARDIOVASCULAR: As mentioned above. RESPIRATORY: Negative. NEUROLOGICAL: As mentioned above. GASTROINTESTINAL: Positive for constipation. GENITOURINARY: As mentioned above. PSYCHIATRIC: Positive for history of depression. DERMATOLOGICAL: Negative. MUSCULOSKELETAL: Positive for occasional joint pain. ENDOCRINE: Negative. HEMATOLOGICAL: Positive for iron-deficiency anemia. PHYSICAL EXAM: Vital signs show a temperature of 98.4, pulse 75, respirations 16, blood pressure 138/79. GENERAL APPEARANCE: The patient is a well-developed, elderly, -Ethiopian male who appears to be in no acute distress. He does have a flat affect. HEENT: Normocephalic, atraumatic. No facial asymmetry is seen. NECK: Supple with no masses felt. CARDIOVASCULAR: Regular rate and rhythm. ABDOMEN: Nondistended with mild tenderness to palpation felt. Extremities showed no edema or clubbing. NEUROLOGICAL: The patient is awake and oriented x3. Speech and language are normal. Strength is 4+ out of 5 in bilateral lower extremities and 5- out of 5 in bilateral upper extremities. Sensory showed diminished light touch sensation in bilateral distal lower extremities. No tremors or seizure-like activity is seen. No facial asymmetry is noticed on cranial nerve testing. IMPRESSION: 1. Transient ischemic attack. 2. Left lower extremity weakness, resolved. 3. History of multiple ischemic strokes. 4. Acute urinary tract infection. 5. Altered mental status, improved. 6. Acute infectious encephalopathy, likely due to urinary tract infection. 7. Severe anemia. 8. History of iron deficiency. 9. Constipation. RECOMMENDATION: The patient does appear to have suffered a transient ischemic attack with a transient episode of left lower extremity weakness. His symptoms have resolved at this time. He does have history of multiple ischemic strokes as mentioned above. I will discontinue aspirin and switch him to Plavix 75 mg daily. His fasting lipid panel was normal and he is already on Lipitor. I will order a serum homocystine level. A carotid Doppler has been ordered. Continue antibiotic therapy for his urinary tract infection. The patient is having significant constipation which is likely due to his iron supplements. Consider intervention for this, as he has not had a bowel movement in over 4 days. Continue monitoring his hemoglobin and hematocrit. Physical therapy has been consulted. I will continue to follow with you. Further recommendations to follow. Thank you for allowing me to participate in the care of your patient. If you have any questions, please feel free to contact me. MMMARIAM / IJN: [id number] /
[2017-08-30 01:38] VITALS: RESP 16
[2017-08-30 06:26] LABS: Anisocytosis Slight; Basophils % (A) 0 %; CHCM 30.6; Eosinophils # (A) 0.2 k/uL (0-0.7); Eosinophils % (A) 2 %; HCT 27.8 % (39.0-53.0); HDW 2.65; HGB 8.5 gm/dL (13.0-17.5); Hypochromasia Moderate; Luc # (Auto) 0.24; Luc % (Auto) 3; Lymphocytes # (A) 1.6 k/uL (1.0-4.8); Lymphocytes % (A) 21 %; MCH 29.2 pg (25.0-35.0); MCHC 30.7 g/dL (31.0-37.0); MCV 95.2 fL (80.0-100.0); Macrocytosis Slight; Mean Platelet Volume 7.5; Monocytes # (A) 0.5 k/uL (0-1.0); Monocytes % (A) 6 %; Neutrophils # (A) 5.1 k/uL (1.3-7.7); Neutrophils % (A) 67 %; RBC 2.92 m/uL (4.30-5.90); RDW 19.3 % (11.5-15.5); WBC 7.6 k/uL (3.8-10.6); WBC (Perox) 7.68
[2017-08-30 06:37] LABS: Anion Gap 8 mmol/L; Blood Urea Nitrogen 8 mg/dL (9-20); Calcium 8.7 mg/dL (8.4-10.2); Carbon Dioxide 26 mmol/L (22-30); Chloride 104 mmol/L (98-107); Glucose 100 mg/dL (74-99); Non-African American GFR(MDRD) >60 (>60 ml/min/1.73 sqM); Potassium 3.3 mmol/L (3.5-5.1); Sodium 138 mmol/L (137-145)
[2017-08-30] MEDS ORDERED: PANTOPRAZOLE 40 MG TABLET PO SCH (07:30)
[2017-08-30] MEDS: IPRATROPIUM-ALBUTEROL 3 ML NEB INHALATION SCH (08:13)
[2017-08-30] MEDS: HYDROCORTISONE 1% CREAM 30 GM TUBE TOPICAL SCH (08:47)
[2017-08-30] MEDS: OXYBUTYNIN XL 5 MG TAB.ER.24 PO SCH (08:47)
[2017-08-30] MEDS: FERROUS SULFATE 325 MG TAB PO SCH (08:47)
[2017-08-30] MEDS: BENZOYL PEROXIDE 10% TOPICAL SCH (08:47)
[2017-08-30] MEDS: DOCUSATE 100 MG CAP PO SCH (08:47)
[2017-08-30] MEDS: HEPARIN SODIUM,PORCINE 5,000 UNIT/ML 1 ML VIAL SQ SCH (08:47)
[2017-08-30] MEDS: CHOLECALCIFEROL 1,000 UNIT TAB PO SCH (08:48)
[2017-08-30] MEDS: SERTRALINE 25 MG TAB PO SCH (08:48)
[2017-08-30] MEDS: TAMSULOSIN 0.4 MG CAP.ER.24H PO SCH (08:48)
[2017-08-30] MEDS: SODIUM CHLORIDE 0.9% 1,000 ML IV SCH (08:53)
[2017-08-30] MEDS ORDERED: CLOPIDOGREL 75 MG TAB PO SCH (09:00)
[2017-08-30 11:10] VITALS: BP 133/77; PULSE 88
[2017-08-30] MEDS ORDERED: THIAMINE 100 MG TAB PO SCH (12:00)
[2017-08-30] MEDS ORDERED: FOLIC ACID 1 MG TAB PO SCH (12:00)
[2017-08-30] MEDS ORDERED: MULTIVITAMINS, THERA 1 EACH TAB PO SCH (12:00)
[2017-08-30] MEDS ORDERED: Potassium Replacement Protocol 1 EACH MISC MISCELLANE PRN (12:37)
[2017-08-30] MEDS ORDERED: Magnesium Replacement Protocol 1 EACH MISC MISCELLANE PRN (12:38)
--- NOTE | 2017-08-30 14:55 | P.PN ---
Subjective Progress Note Date: 08/30/17 Patient is a pleasant 66-year-old -Iranian male who is being followed by the neurology service for transient ischemic attack. Patient had come in with difficulty with ambulation and was noticed to be dragging his left leg. His symptoms have since resolved. He does have history of multiple ischemic strokes. Family reports patient had balloon procedure done for intracranial artery stenosis. He had been on Plavix and aspirin but was recently taken off Plavix. Computed tomography scan of the brain showed multiple lacunar infarcts involving bilateral internal capsules and right frontal lobe. His EEG was normal. At the time of my evaluation, patient's resting comfortably in bed and appears to be in no acute distress. Patient does report his strength has returned to baseline. Objective - Vital Signs Vital signs: Vital Signs Temp 98 F 08/29/17 20:00 Pulse 88 08/30/17 12:00 Resp 16 08/30/17 12:00 BP 133/77 08/30/17 08:00 Pulse Ox 100 08/30/17 08:00 Intake & Output 08/29/17 08/30/17 08/30/17 18:59 06:59 18:59 Intake Total 1420 1080 180 Balance 1420 1080 180 Weight 75.6 kg Intake: IV 480 1080 Sodium Chloride 0.9% 1, 480 1080 000 ml @ 120 mls/hr IV . Q8H20M [facility] Rx#:[id number] Oral 940 180 Other: Voiding Method Urinal Urinal Urinal Incontinent Incontinent Incontinent # Voids 2 0 1 - Exam PHYSICAL EXAM: GENERAL APPEARANCE: Patient is a well-developed, -Iranian male who appears to be in no acute distress. HEENT: Normocephalic, atraumatic, no facial asymmetry is seen. Neck is supple with no masses felt. CARDIOVASCULAR: Regular rate and rhythm. ABDOMEN: Nontender, nondistended. EXTREMITIES: Show no edema or clubbing. NEUROLOGICAL EXAM: Patient is awake, alert, and oriented 3. Speech and language are normal. Strength is 4+/5 in bilateral lower extremities and 5-/5 in bilateral upper extremities. Sensory exam shows diminished sensory to light touch in bilateral distal lower extremities. No facial asymmetry is seen on cranial nerve testing. No tremors or seizure-like activity is noted. - Labs CBC & Chem 7: 08/30/17 06:00 08/30/17 06:00 Labs: Abnormal Lab Results - Last 24 Hours (Table) 08/30/17 08/30/17 08/30/17 Range/Units 06:00 06:00 06:00 RBC 2.92 L (4.30-5.90) m/uL Hgb 8.5 L (13.0-17.5) gm/dL Hct 27.8 L (39.0-53.0) % MCHC 30.7 L (31.0-37.0) g/dL RDW 19.3 H (11.5-15.5) % Potassium 3.3 L (3.5-5.1) mmol/L BUN 8 L (9-20) mg/dL Glucose 100 H (74-99) mg/dL Magnesium 1.5 L (1.6-2.3) mg/dL Microbiology - Last 24 Hours (Table) 08/28/17 18:42 Urine Culture - Preliminary Urine,Clean Catch Gram Neg Bacilli 08/28/17 17:55 Blood Culture - Preliminary Blood No Growth after 24 hours Assessment and Plan Plan: Impression: 1. Transient ischemic attack 2. Left lower extremity weakness, resolved 3. History of multiple ischemic strokes 4. Acute urinary tract infection 5. Altered mental status, improved 6. Acute infectious encephalopathy, likely due to urinary tract infection Recommendation: Patient does appear to have suffered a transient ischemic attack with episode of left lower extreme any weakness. His symptoms have resolved at this time. I recommend he continue Plavix 75 mg by mouth daily. As you recall, his fasting lipid panel was normal and he is on Lipitor. His serum homocystine level was within normal limits. A carotid Doppler was done during a prior admission which showed no hemodynamically significant stenosis. I recommend continuing current antibiotic therapy for his urinary tract infection. Continue physical therapy. Patient is stable from a neurological standpoint for discharge. I will continue to follow with you on an as-needed basis. Feel free to call with any questions or concerns. I performed an examination of the patient and discussed the management with the MOLD [employer]ER. I have reviewed the M[employer]ER notes and agree with the findings and plan of care.
--- NOTE | 2017-08-30 17:31 | P.DS ---
Providers Date of admission: 08/28/17 20:10 Attending physician: Miguel Church Consults: 08/29/17 08:42 Consult Physician Urgent Consulting Provider: Chelsey Silverio Consult Reason/Comments: left leg weakness Do you want consulting provider notified?: Already Contacted Primary care physician: Rick Luke [facility] Course: This 66-year-old gentleman was admitted with the UTI sepsis. Patient was treated with antibiotics. Urine cultures growing gram-negative vascular. Patient improved significantly. Patient is not a candidate for any ECF rehab at this time. So patient improved significantly. Patient be discharged in a stable condition with guarded prognosis to be followed up by Dr. Luke in the outpatient setting. Antibiotics were prescribed. However the final urine culture report be forwarded to Dr. Luke's office. On exam vitals are stable. Cardio S1 and S2 normal. Respirator system clear to auscultation. Abdomen soft nontender. Nervous system no focal deficit. Final diagnosis 1. Acute UTI sepsis with gram-negative vascular possibly 2. Possible TIA 3. History of multiple TIAs 4. History of CVI 5. GERD Patient Condition at Discharge: Stable Plan - Discharge Summary New Discharge Prescriptions: New Amoxic-Pot Clav 875-125Mg [Augmentin 875-125] 1 tab PO Q12HR #10 tablet No Action amLODIPine [Norvasc] 10 mg PO QAM Ipratropium-Albuterol Nebulize [Duoneb 0.5 mg-3 mg/3 ml Soln] 3 ml INHALATION RT-BID Glycopyrrolate/Formoterol Fum [Bevespi Aerosphere Inhaler] 1 puff INHALATION RT-BID Cholecalciferol [Vitamin D3] 1,000 unit PO QAM Atorvastatin [Lipitor] 80 mg PO HS Aspirin EC [Ecotrin Low Dose] 81 mg PO QAM Tamsulosin HCl [Flomax] 0.4 mg PO QAM Ferrous Sulfate [Feosol] 325 mg PO DAILY Ranitidine HCl [Zantac] 150 mg PO HS Sertraline [Zoloft] 25 mg PO DAILY Ketoconazole 2% Shampoo [Nizoral] 1 applic TOPICAL MOTH Hydrocortisone Cream [Hydrocortisone 2.5% Cream] 1 applic TOPICAL BID Clindamycin Topical Soln [Cleocin-T Topical Soln] 1 applic TOPICAL BID Tolterodine Tartrate [Detrol LA] 4 mg PO DAILY Docusate [Colace] 100 mg PO DAILY Benzoyl Peroxide [Benzac AC Wash] 1 applic TOPICAL DAILY Discharge Medication List Aspirin EC [Ecotrin Low Dose] 81 mg PO QAM 05/26/17 [History] Atorvastatin [Lipitor] 80 mg PO HS 05/26/17 [History] Cholecalciferol [Vitamin D3] 1,000 unit PO QAM 05/26/17 [History] Glycopyrrolate/Formoterol Fum [Bevespi Aerosphere Inhaler] 1 puff INHALATION RT- BID 05/26/17 [History] Ipratropium-Albuterol Nebulize [Duoneb 0.5 mg-3 mg/3 ml Soln] 3 ml INHALATION RT -BID 05/26/17 [History] Tamsulosin HCl [Flomax] 0.4 mg PO QAM 05/26/17 [History] amLODIPine [Norvasc] 10 mg PO QAM 05/26/17 [History] Ferrous Sulfate [Feosol] 325 mg PO DAILY 06/29/17 [History] Ranitidine HCl [Zantac] 150 mg PO HS 07/13/17 [History] Benzoyl Peroxide [Benzac AC Wash] 1 applic TOPICAL DAILY 08/28/17 [History] Clindamycin Topical Soln [Cleocin-T Topical Soln] 1 applic TOPICAL BID 08/28/17 [History] Docusate [Colace] 100 mg PO DAILY 08/28/17 [History] Hydrocortisone Cream [Hydrocortisone 2.5% Cream] 1 applic TOPICAL BID 08/28/17 [ History] Ketoconazole 2% Shampoo [Nizoral] 1 applic TOPICAL MOTH 08/28/17 [History] Sertraline [Zoloft] 25 mg PO DAILY 08/28/17 [History] Tolterodine Tartrate [Detrol LA] 4 mg PO DAILY 08/28/17 [History] Amoxic-Pot Clav 875-125Mg [Augmentin 875-125] 1 tab PO Q12HR #10 tablet [Rx] Follow up Appointment(s)/Referral(s): Dino Mcghee MD [STAFF PHYSICIAN] - 10/03/17 10:45 am (Please keep previously scheduled appointment. ) Rick Luke MD [Primary Care Provider] - 09/05/17 9:40 am Ambulatory/Diagnostic Orders: Complete Blood Count w/diff [LAB.AMB] Time Frame: 3 Days, Location: Determined By Patient Patient Instructions/Handouts: Transient Ischemic Attack (DC), Urinary Tract Infection in Men (DC) Activity/Diet/Wound Care/Special Instructions: Diet: Cardiac Activity: Limited until follow Up Discharge Disposition: HOME SELF-CARE
[2017-08-30] MEDS ORDERED: KETOCONAZOLE 2% SHAMPOO 1 APPLIC/ML TOPICAL SCH (18:00)
== END 2017-08-30 15:37 | disposition home or self-care (01) | DRG 871 ==
LOC: EC 17:22 → 6SEL 20:10
PROVIDERS: ADMIT Hospitalist; ATTEND Hospitalist
DX: A41.50 Gram-negative sepsis, unspecified (principal); G93.49 Other encephalopathy; N39.0 Urinary tract infection, site not specified; G45.9 Transient cerebral ischemic attack, unspecified; I10 Essential (primary) hypertension; D64.9 Anemia, unspecified; K21.9 Gastro-esophageal reflux disease without esophagitis; F32.9 Major depressive disorder, single episode, unspecified; E78.5 Hyperlipidemia, unspecified; K59.00 Constipation, unspecified; G40.909 Epilepsy, unspecified, not intractable, without status epilepticus; E61.1 Iron deficiency; M19.91 Primary osteoarthritis, unspecified site; Z79.82 Long term (current) use of aspirin; Z79.899 Other long term (current) drug therapy; Z87.11 Personal history of peptic ulcer disease; Z82.3 Family history of stroke
CPT/HCPCS: 36415; 70450; 71020; 80048; 80053; 80061; 81001; 82550; 82553; 83090; 83605; 83735; 84484; 85025; 85610; 85730; 87040; 87077; 87081; 87086; 87186; 87430; 87502; 93005; 94640; 95819; 96365; 99285

== ENCOUNTER 2017-09-25 13:28 | Inpatient (IN) | payer MEDICARE, BC ==
--- NOTE | 2017-09-25 13:34 | ED ---
General Adult HPI - General Stated complaint: TIA Time Seen by Provider: 09/25/17 13:32 Source: patient, EMS, RN notes reviewed, old records reviewed - History of Present Illness Initial comments: 66-year-old male with history of CVA with residual left-sided deficit presents for evaluation of new left-sided weakness, left-sided facial droop and drooling. Patient was noted by his to have these symptoms at approximately 1 PM. This was 30 minutes prior to arrival. At the time my evaluation, patient's symptoms have resolved. He states he does have residual left-sided facial droop at baseline. Denies headache. Denies chest pain or shortness of breath. Denies abdominal pain. Patient denies any worsening focal weakness at this time. Patient states he is currently on atorvastatin and Plavix for his previous stroke. - Related Data Home Medications Medication Instructions Recorded Confirmed Aspirin EC [Ecotrin Low Dose] 81 mg PO QAM 05/26/17 09/25/17 Atorvastatin [Lipitor] 80 mg PO HS 05/26/17 09/25/17 Cholecalciferol [Vitamin D3] 1,000 unit PO QAM 05/26/17 09/25/17 Glycopyrrolate/Formoterol Fum 1 puff INHALATION RT-BID 05/26/17 09/25/17 [Bevespi Aerosphere Inhaler] Ipratropium-Albuterol Nebulize 3 ml INHALATION RT-BID 05/26/17 09/25/17 [Duoneb 0.5 mg-3 mg/3 ml Soln] Tamsulosin HCl [Flomax] 0.4 mg PO QAM 05/26/17 09/25/17 amLODIPine [Norvasc] 10 mg PO QAM 05/26/17 09/25/17 Ferrous Sulfate [Feosol] 325 mg PO DAILY 06/29/17 09/25/17 Ranitidine HCl [Zantac] 150 mg PO HS 07/13/17 09/25/17 Benzoyl Peroxide [Benzac AC Wash] 1 applic TOPICAL DAILY 08/28/17 09/25/17 Clindamycin Topical Soln 1 applic TOPICAL BID 08/28/17 09/25/17 [Cleocin-T Topical Soln] Docusate [Colace] 100 mg PO DAILY 08/28/17 09/25/17 Hydrocortisone Cream 1 applic TOPICAL BID 08/28/17 09/25/17 [Hydrocortisone 2.5% Cream] Ketoconazole 2% Shampoo [Nizoral] 1 applic TOPICAL MOTH 08/28/17 09/25/17 Sertraline [Zoloft] 25 mg PO DAILY 08/28/17 09/25/17 Tolterodine Tartrate [Detrol LA] 4 mg PO DAILY 08/28/17 09/25/17 Allergies Allergy/AdvReac Type Severity Reaction Status Date / Time No Known Allergies Allergy Verified 09/25/17 14:26 Review of Systems ROS Statement: Those systems with pertinent positive or pertinent negative responses have been documented in the HPI. ROS Other: All systems not noted in ROS Statement are negative. 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 OCC EDEMA FEET.Gastric Ulcer. Stroke on 02/23/17. Peg tube - patient's spouse says hasn't been used in a month and is scheduled for removal on 07/11/2017. stage 2 kidney disease History of Any Multi-Drug Resistant Organisms: None Reported Past Surgical History: Hernia Repair, Joint Replacement, Orthopedic Surgery Additional Past Surgical History / Comment(s): RT TOTAL KNEE, intracranial angioplasty at [facility] on 06/01/2017 Past Anesthesia/Blood Transfusion Reactions: No Reported Reaction Past Psychological History: No Psychological Hx Reported Smoking Status: Never smoker Past Alcohol Use History: Occasional Additional Past Alcohol Use History / Comment(s): SMOKED < 1PPD FOR 35 YEARS EST. Past Drug Use History: None Reported - Past Family History Mother Family Medical History: CVA/TIA, Diabetes Mellitus, Hyperlipidemia, Hypertension General Exam Limitations: no limitations General appearance: alert, in no apparent distress Head exam: Present: atraumatic, normocephalic Eye exam: Present: normal appearance, PERRL ENT exam: Present: normal exam Neck exam: Present: normal inspection. Absent: tenderness, meningismus Respiratory exam: Present: normal lung sounds bilaterally. Absent: respiratory distress, wheezes Cardiovascular Exam: Present: regular rate, normal rhythm GI/Abdominal exam: Present: soft. Absent: distended, tenderness Extremities exam: Present: normal inspection, full ROM, normal capillary refill. Absent: pedal edema Neurological exam: Present: alert, oriented X3. Absent: CN II-XII intact, motor sensory deficit (Mild left-sided facial droop, NIH 1) Psychiatric exam: Present: normal affect, normal mood Skin exam: Present: warm, dry, intact. Absent: cyanosis, diaphoretic Course Vital Signs 09/25/17 09/25/17 09/25/17 13:34 13:40 13:55 Temperature 97.8 F 97.8 F 97.8 F Pulse Rate 70 60 62 Respiratory 16 15 15 Rate Blood Pressure 116/69 114/67 104/64 O2 Sat by Pulse 98 100 100 Oximetry 09/25/17 09/25/17 09/25/17 14:10 14:25 14:40 Temperature 97.8 F 98.1 F 98.1 F Pulse Rate 62 62 60 Respiratory 15 15 14 Rate Blood Pressure 110/53 114/67 124/64 O2 Sat by Pulse 100 100 100 Oximetry 09/25/17 15:10 Temperature 98.1 F Pulse Rate 62 Respiratory 15 Rate Blood Pressure 122/77 O2 Sat by Pulse 100 Oximetry - Reevaluation(s) Reevaluation #1: 09/25/17 16:03 Further history from the patient's reveals patient was taken off his Plavix , 90 days after cerebral angioplasty. EKG Findings - EKG Comments: EKG Findings:: EKG shows normal sinus rhythm, ventricular rate 62, OR interval 180, castration 88, QTC 446, no signs of ischemia or infarction Medical Decision Making - Medical Decision Making 66-year-old male presenting with strokelike symptoms, noted by patient's and EMS. The symptoms were resolved prior to time my evaluation patient has only minimal left-sided facial droop which according to his his baseline. NIH of 1. Head CT is obtained, shows no intracranial hemorrhage, no midline shift, mild to moderate atrophy. Chest x-ray shows stable ectasia of the thoracic aorta. No focal pneumonia. Hemoglobin 10 which is improved from baseline 8.5, white blood cell count 6.0 which is normal. Creatinine is mildly elevated at 1.5 from baseline of 0.97. White lites within normal limits. Patient is given an aspirin in the emergency department. He is given IV hydration for mild acute kidney injury. Patient will be placed in observation for rehydration and neurology evaluation. - Lab Data Result diagrams: 09/25/17 13:40 09/25/17 13:40 Lab Results 09/25/17 09/25/17 09/25/17 Range/Units 13:36 13:40 13:40 WBC 6.0 (3.8-10.6) k/uL RBC 3.56 L (4.30-5.90) m/uL Hgb 10.0 L D (13.0-17.5) gm/dL Hct 33.4 L (39.0-53.0) % MCV 93.8 (80.0-100.0) fL MCH 28.1 (25.0-35.0) pg MCHC 30.0 L (31.0-37.0) g/dL RDW 19.4 H (11.5-15.5) % Plt Count 323 (150-450) k/uL Neutrophils % 53 % Lymphocytes % 34 % Monocytes % 6 % Eosinophils % 4 % Basophils % 1 % Neutrophils # 3.2 (1.3-7.7) k/uL Lymphocytes # 2.0 (1.0-4.8) k/uL Monocytes # 0.4 (0-1.0) k/uL Eosinophils # 0.2 (0-0.7) k/uL Basophils # 0.1 (0-0.2) k/uL Hypochromasia Slight Anisocytosis Slight PT (9.0-12.0) sec INR (<1.2) APTT (22.0-30.0) sec Sodium (137-145) mmol/L Potassium (3.5-5.1) mmol/L Chloride (98-107) mmol/L Carbon Dioxide (22-30) mmol/L Anion Gap mmol/L BUN (9-20) mg/dL Creatinine (0.66-1.25) mg/dL Est GFR (MDRD) Af Amer (>60 ml/min/1.73 sqM) Est GFR (MDRD) Non-Af (>60 ml/min/1.73 sqM) Glucose (74-99) mg/dL POC Glucose (mg/dL) 131 H (75-99) mg/dL POC Glu Oil Expeller ID Denzel, Laverne Calcium (8.4-10.2) mg/dL Total Bilirubin (0.2-1.3) mg/dL AST (17-59) U/L ALT (21-72) U/L Alkaline Phosphatase (38-126) U/L Total Creatine Kinase 91 (55-170) U/L CK-MB (CK-2) 0.8 (0.0-2.4) ng/mL CK-MB (CK-2) Rel Index 0.9 Troponin I 0.015 (0.000-0.034) ng/mL Total Protein (6.3-8.2) g/dL Albumin (3.5-5.0) g/dL 09/25/17 09/25/17 Range/Units 13:40 13:40 WBC (3.8-10.6) k/uL RBC (4.30-5.90) m/uL Hgb (13.0-17.5) gm/dL Hct (39.0-53.0) % MCV (80.0-100.0) fL MCH (25.0-35.0) pg MCHC (31.0-37.0) g/dL RDW (11.5-15.5) % Plt Count (150-450) k/uL Neutrophils % % Lymphocytes % % Monocytes % % Eosinophils % % Basophils % % Neutrophils # (1.3-7.7) k/uL Lymphocytes # (1.0-4.8) k/uL Monocytes # (0-1.0) k/uL Eosinophils # (0-0.7) k/uL Basophils # (0-0.2) k/uL Hypochromasia Anisocytosis PT 10.4 (9.0-12.0) sec INR 1.0 (<1.2) APTT 23.1 (22.0-30.0) sec Sodium 138 (137-145) mmol/L Potassium 4.2 (3.5-5.1) mmol/L Chloride 103 (98-107) mmol/L Carbon Dioxide 26 (22-30) mmol/L Anion Gap 9 mmol/L BUN 20 (9-20) mg/dL Creatinine 1.51 H (0.66-1.25) mg/dL Est GFR (MDRD) Af Amer 56 (>60 ml/min/1.73 sqM) Est GFR (MDRD) Non-Af 46 (>60 ml/min/1.73 sqM) Glucose 141 H (74-99) mg/dL POC Glucose (mg/dL) (75-99) mg/dL POC Glu Oil Expeller ID Calcium 9.7 (8.4-10.2) mg/dL Total Bilirubin 0.4 (0.2-1.3) mg/dL AST 30 (17-59) U/L ALT 44 (21-72) U/L Alkaline Phosphatase 101 (38-126) U/L Total Creatine Kinase (55-170) U/L CK-MB (CK-2) (0.0-2.4) ng/mL CK-MB (CK-2) Rel Index Troponin I (0.000-0.034) ng/mL Total Protein 7.6 (6.3-8.2) g/dL Albumin 4.1 (3.5-5.0) g/dL Critical Care Time Critical Care Time: Yes Total Critical Care Time: 35 Disposition Clinical Impression: Transient cerebral ischemia, JENNIFER (acute kidney injury) Disposition: ADMITTED IP TO THIS [facility] Condition: Stable Referrals: Rick Luke MD [Primary Care Provider] - 1-2 days Decision to Admit Reason: Admit from [facility] Decision Date: 09/25/17 Decision Time: 16:05
[2017-09-25 13:38] LABS: Glucose,Whole Blood 131 mg/dL (75-99)
[2017-09-25 14:03] LABS: Anisocytosis Slight; Basophils # (A) 0.1 k/uL (0-0.2); Basophils % (A) 1 %; CH 28.9; Eosinophils # (A) 0.2 k/uL (0-0.7); Eosinophils % (A) 4 %; HCT 33.4 % (39.0-53.0); HDW 2.73; Hypochromasia Slight; Luc # (Auto) 0.12; Luc % (Auto) 2; Lymphocytes % (A) 34 %; MCH 28.1 pg (25.0-35.0); MCV 93.8 fL (80.0-100.0); Mean Platelet Volume 7.1; Monocytes # (A) 0.4 k/uL (0-1.0); Monocytes % (A) 6 %; Neutrophils # (A) 3.2 k/uL (1.3-7.7); Neutrophils % (A) 53 %; RBC 3.56 m/uL (4.30-5.90); RDW 19.4 % (11.5-15.5); WBC (Perox) 6.01
[2017-09-25 14:07] LABS: Partial Thromboplastin Time 23.1 sec (22.0-30.0); Prothrombin Time 10.4 sec (9.0-12.0)
[2017-09-25 14:08] LABS: Calcium 9.7 mg/dL (8.4-10.2); Potassium 4.2 mmol/L (3.5-5.1); Total Bilirubin 0.4 mg/dL (0.2-1.3); Total Protein 7.6 g/dL (6.3-8.2)
--- NOTE | 2017-09-25 14:19 | XR ---
EXAMINATION TYPE: XR chest 2V DATE OF EXAM: 09/25/2017 COMPARISON: 08/28/2017 TECHNIQUE: PA and lateral views submitted. HISTORY: Altered mental status. FINDINGS: The lungs are clear and there is no pneumothorax, pleural effusion, or focal pneumonia. There is ec isaiah involving the thoracic aorta. Mild aneurysmal dilation not excluded. Mild hyperinflation correl ate for COPD. IMPRESSION: 1. 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
--- NOTE | 2017-09-25 14:24 | CT ---
EXAMINATION TYPE: CT brain wo con DATE OF EXAM: 09/25/2017 COMPARISON: NONE HISTORY: 66-year-old male with neurologic deficits, left-sided weakness. TECHNIQUE: Examination was done in axial plane without intravenous contrast. Coronal and sagittal r econstructions performed. CT DLP: 1234.00 mGycm Automated exposure control for dose reduction was used. FINDINGS: There is no evidence of acute intracranial hemorrhage, acute ischemic changes, mass, mass-effect, or extra-axial fluid collection. There is no effacement of cerebral sulci or basal subarachnoid cister ns. There is no hydrocephalus. There is no midline shift. Gomez-white matter distinction is preserv ed. Mild to moderate generalized supratentorial volume loss. Moderate patchy and confluent white matter h ypodensities suggest chronic small vessel ischemic disease There is some frothy partial opacification within the right sphenoid sinus. Mastoid air cells are wel l pneumatized. Orbits and globes appear intact. IMPRESSION: 1. No acute intracranial abnormality seen. Similar [id number] atrophy and confluent changes of chronic small vessel ischemic disease. 2. Some frothy partial opacification in the right sphenoid sinus can be seen in setting of acute lorie l sinusitis.
[2017-09-25 14:33] LABS: Creatine Kinase MB 0.8 ng/mL (0.0-2.4); Troponin I 0.015 ng/mL (0.000-0.034)
[2017-09-25] MEDS ORDERED: ASPIRIN 325 MG TAB PO STA (15:16)
[2017-09-25] MEDS: SODIUM CHLORIDE 0.9% 1,000 ML IV SCH (16:06)
--- NOTE | 2017-09-25 20:29 | P.PN ---
Progress Note - Text Progress Note Date: 09/25/17 HISTORY OF PRESENT ILLNESS: 66-year-old male patient of Dr. Luke with chronic stable medical conditions include CVA, TIA, GERD, hypertension, hyperlipidemia, who arrived to the emergency department via EMS after patient was found at the table at home to be sleepy, lethargic, drooling, unable to follow commands. Patient's was having with the patient after he had had an session of physical therapy earlier the day. Symptoms began around 1 PM, noted her to be drooling unable to eat or drink or swallow with left-sided facial droop and left-sided weakness. EMS was called, on their arrival patient was more alert but unable to bear weight or to walk and was slow in answering questions. By the time patient arrived to the emergency department at [facility] symptoms had completely resolved.patient does have a history of CVA that affected left-side in the past with left-sided residuals. REVIEW OF SYSTEMS GEN.: [ Tired] EYES: [None] HEENT: [None] NECK: [None] RESPIRATORY: [None] CARDIOVASCULAR: [None] GASTROINTESTINAL: [None] GENITOURINARY: [None] MUSCULOSKELETAL: [Left-sided weakness to upper and lower extremity] LYMPHATICS: [None] HEMATOLOGICAL: [None] PSYCHIATRY: [None] NEUROLOGICAL: [Mild Facial droop to the left, decreased sensation to the left upper and lower extremity] PAST MEDICAL HISTORY Past medical history: CVA/TIA, GERD/reflux, hyperlipidemia, hypertension, musculoskeletal disorder, renal disease stage II, osteomyelitis of the third toe , Past surgical history: Hernia repair, joint replacement, right total knee arthroplasty, intracranial angioplasty at [facility] on 06/01/2017. Past psychological history: None SOCIAL HISTORY: Additional psychological/social history: None Smoking use history: Former smoker One pack per day 35 years Alcohol use history: Occasional Drug use history: Denies Marital status: Living situation: Lives with Work history: FAMILY HISTORY: Father: : CVA TIA Mother: : CVA TIA hyperlipidemia hypertension ALLERGIES: NO KNOWN ALLERGIES HOME MEDICATION: Nizoral shampoo 1 application Mondays and Amlodipine 10 mg by mouth every morning Detrol LA 4 mg by mouth daily Tamsulosin 0.4 mg by mouth every morning Zoloft 25 mg by mouth daily Zantac 150 g by mouth at bedtime DuoNeb 3 mL inhalation twice a day Hydrocortisone cream 1 application topical twice a day Glycopyrrolate/formoterol 1 puff inhalation twice a day Ferrous sulfate 100 mg by mouth daily Clindamycin topical solution 1 application topical twice a day Cholecalciferol 1000 units by mouth every morning Benzac AC Wash 1 application topical daily Atorvastatin 80 mg by mouth at bedtime Aspirin 81 mg by mouth every morning VITAL SIGNS: [ Temperature 98.0, pulse 68, respiratory rate 16, blood pressure 130/78, oxygen saturation 99% on room air. BMI noted] GENERAL: [Thin built, sitting up, comfortable]. EYES: [Pupils equal. Conjunctiva lexie, left eye with mild droop l. HEENT: [External appearance of nose and ears normal, oral cavity grossly normal] . NECK: [JVD not raised; masses not palpable]. HEART: [First and second heart sounds are normal; no edema]. LUNGS:[ Respiratory rate normal; clear to auscultation]. ABDOMEN: [Soft, nontender, liver spleen not palpable, no masses palpable]. LYMPHATICS: [No lymph nodes palpable in the axilla and neck]. PSYCH: [Alert and oriented x3; mood and affect lexie]l. NEUROLOGICAL: [Cranial nerves grossly intact; mild left-sided facial droop, left power and sensation 4/5, right power and sensation 5 / 5]. INVESTIGATIONS: Hemoglobin 10.0, BUN 20, creatinine 1.51 ASSESSMENT: -Acute transient ischemic attack in a patient who has had multiple strokes in the past -Essential hypertension. -Hyperlipidemia. -Benign prostatic hypertrophy. -Primary osteoarthritis of multiple joints, bilaterally. -Chronic obstructive pulmonary disease. -Chronic gait dysfunction uses walker. PLAN: Home medications reordered, neurology consulted, continue neuro checks. Plan of care discussed with the patient and at the bedside they're in agreement. We will follow closely. INTERFACE ENGINEER STATEMENT: Patient was seen and examined by nurse practitioner Yudy Mckay and all elements of the case were discussed with attending Dr. Dexter.
[2017-09-25] MEDS: IPRATROPIUM-ALBUTEROL 3 ML NEB INHALATION SCH (20:39)
[2017-09-25] MEDS ORDERED: ATORVASTATIN 80 MG TAB PO SCH (21:00)
[2017-09-25] MEDS ORDERED: FAMOTIDINE 20 MG TAB PO SCH (21:00)
[2017-09-25] MEDS: NON-FORMULARY DRUG (Clindamycin Topical Soln 1 APPLIC) TOPICAL SCH (22:53)
[2017-09-25] MEDS: NON-FORMULARY DRUG (Glycopyrrolate/Formoterol Fum [Bevespi Aerosphere Inhaler] 1 PUFF) INHALATION SCH (22:53)
[2017-09-25] MEDS: TRIAMCINOLONE 0.1% CREAM 80 GM TUBE TOPICAL SCH (23:29)
[2017-09-26 06:41] LABS: Anisocytosis Slight; Basophils # (A) 0.1 k/uL (0-0.2); Basophils % (A) 1 %; CH 28.7; Eosinophils # (A) 0.2 k/uL (0-0.7); Eosinophils % (A) 4 %; HCT 31.1 % (39.0-53.0); HDW 2.72; HGB 9.3 gm/dL (13.0-17.5); Hypochromasia Slight; Luc # (Auto) 0.13; Luc % (Auto) 3; Lymphocytes # (A) 2.1 k/uL (1.0-4.8); Lymphocytes % (A) 39 %; MCH 27.9 pg (25.0-35.0); MCHC 29.9 g/dL (31.0-37.0); MCV 93.1 fL (80.0-100.0); Mean Platelet Volume 7.3; Monocytes # (A) 0.4 k/uL (0-1.0); Monocytes % (A) 7 %; Neutrophils # (A) 2.5 k/uL (1.3-7.7); Neutrophils % (A) 47 %; RBC 3.34 m/uL (4.30-5.90); RDW 19.1 % (11.5-15.5); WBC 5.3 k/uL (3.8-10.6); WBC (Perox) 5.56
[2017-09-26 06:51] LABS: Anion Gap 6 mmol/L; Blood Urea Nitrogen 15 mg/dL (9-20); Calcium 9.4 mg/dL (8.4-10.2); Carbon Dioxide 29 mmol/L (22-30); Chloride 104 mmol/L (98-107); Cholesterol 145 mg/dL (<200); Glucose 92 mg/dL (74-99); HDL Cholesterol 51 mg/dL (40-60); Non-African American GFR(MDRD) >60 (>60 ml/min/1.73 sqM); Potassium 3.6 mmol/L (3.5-5.1); Sodium 139 mmol/L (137-145)
[2017-09-26 07:04] VITALS: RESP 18
[2017-09-26] MEDS: SODIUM CHLORIDE 0.9% 1,000 ML IV SCH ×2 (07:08→11:46)
[2017-09-26] MEDS: IPRATROPIUM-ALBUTEROL 3 ML NEB INHALATION SCH (08:48)
[2017-09-26] MEDS ORDERED: DOCUSATE 100 MG CAP PO SCH (09:00)
[2017-09-26] MEDS ORDERED: SERTRALINE 25 MG TAB PO SCH (09:00)
[2017-09-26] MEDS ORDERED: OXYBUTYNIN XL 5 MG TAB.ER.24 PO SCH (09:00)
[2017-09-26] MEDS ORDERED: BENZOYL PEROXIDE TOPICAL SCH (09:00)
[2017-09-26] MEDS ORDERED: ASPIRIN 325 MG TAB PO SCH (09:00)
[2017-09-26] MEDS ORDERED: TAMSULOSIN 0.4 MG CAP.ER.24H PO SCH (09:00)
[2017-09-26] MEDS ORDERED: ASPIRIN 81 MG PO SCH (09:00)
[2017-09-26] MEDS ORDERED: amLODIPine 10 MG TAB PO SCH (09:00)
[2017-09-26] MEDS: NON-FORMULARY DRUG (Clindamycin Topical Soln 1 APPLIC) TOPICAL SCH (09:25)
[2017-09-26] MEDS: NON-FORMULARY DRUG (Glycopyrrolate/Formoterol Fum [Bevespi Aerosphere Inhaler] 1 PUFF) INHALATION SCH (09:25)
[2017-09-26] MEDS: TRIAMCINOLONE 0.1% CREAM 80 GM TUBE TOPICAL SCH (09:30)
--- NOTE | 2017-09-26 10:26 | P.HPIM ---
History of Present Illness H&P Date: 09/25/17 Chief Complaint: TIA concern for new stroke HISTORY OF PRESENT ILLNESS: 66-year-old male patient of Dr. Luke with chronic stable medical conditions include CVA, TIA, GERD, hypertension, hyperlipidemia, who arrived to the emergency department via EMS after patient was found at the table at home to be sleepy, lethargic, drooling, unable to follow commands. Patient's was having with the patient after he had had an session of physical therapy earlier the day. Symptoms began around 1 PM, noted her to be drooling unable to eat or drink or swallow with left-sided facial droop and left-sided weakness. EMS was called, on their arrival patient was more alert but unable to bear weight or to walk and was slow in answering questions. By the time patient arrived to the emergency department at [facility] symptoms had completely resolved.patient does have a history of CVA that affected left-side in the past with left-sided residuals. REVIEW OF SYSTEMS GEN.: [ Tired] EYES: [None] HEENT: [None] NECK: [None] RESPIRATORY: [None] CARDIOVASCULAR: [None] GASTROINTESTINAL: [None] GENITOURINARY: [None] MUSCULOSKELETAL: [Left-sided weakness to upper and lower extremity] LYMPHATICS: [None] HEMATOLOGICAL: [None] PSYCHIATRY: [None] NEUROLOGICAL: [Mild Facial droop to the left, decreased sensation to the left upper and lower extremity] PAST MEDICAL HISTORY Past medical history: CVA/TIA, GERD/reflux, hyperlipidemia, hypertension, musculoskeletal disorder, renal disease stage II, osteomyelitis of the third toe , Past surgical history: Hernia repair, joint replacement, right total knee arthroplasty, intracranial angioplasty at [facility] on 06/01/2017. Past psychological history: None SOCIAL HISTORY: Additional psychological/social history: None Smoking use history: Former smoker One pack per day 35 years Alcohol use history: Occasional Drug use history: Denies Marital status: Living situation: Lives with Work history: FAMILY HISTORY: Father: : CVA TIA Mother: : CVA TIA hyperlipidemia hypertension ALLERGIES: NO KNOWN ALLERGIES HOME MEDICATION: Nizoral shampoo 1 application Mondays and Amlodipine 10 mg by mouth every morning Detrol LA 4 mg by mouth daily Tamsulosin 0.4 mg by mouth every morning Zoloft 25 mg by mouth daily Zantac 150 g by mouth at bedtime DuoNeb 3 mL inhalation twice a day Hydrocortisone cream 1 application topical twice a day Glycopyrrolate/formoterol 1 puff inhalation twice a day Ferrous sulfate 100 mg by mouth daily Clindamycin topical solution 1 application topical twice a day Cholecalciferol 1000 units by mouth every morning Benzac AC Wash 1 application topical daily Atorvastatin 80 mg by mouth at bedtime Aspirin 81 mg by mouth every morning VITAL SIGNS: [ Temperature 98.0, pulse 68, respiratory rate 16, blood pressure 130/78, oxygen saturation 99% on room air. BMI noted] GENERAL: [Thin built, sitting up, comfortable]. EYES: [Pupils equal. Conjunctiva lexie, left eye with mild droop l. HEENT: [External appearance of nose and ears normal, oral cavity grossly normal] . NECK: [JVD not raised; masses not palpable]. HEART: [First and second heart sounds are normal; no edema]. LUNGS:[ Respiratory rate normal; clear to auscultation]. ABDOMEN: [Soft, nontender, liver spleen not palpable, no masses palpable]. LYMPHATICS: [No lymph nodes palpable in the axilla and neck]. PSYCH: [Alert and oriented x3; mood and affect lexie]l. NEUROLOGICAL: [Cranial nerves grossly intact; mild left-sided facial droop, left power and sensation 4/5, right power and sensation 5 / 5]. INVESTIGATIONS: Hemoglobin 10.0, BUN 20, creatinine 1.51 ASSESSMENT: -Acute transient ischemic attack in a patient who has had multiple strokes in the past -Essential hypertension. -Hyperlipidemia. -Benign prostatic hypertrophy. -Primary osteoarthritis of multiple joints, bilaterally. -Chronic obstructive pulmonary disease. -Chronic gait dysfunction uses walker. PLAN: Home medications reordered, neurology consulted, continue neuro checks. Plan of care discussed with the patient and at the bedside they're in agreement. We will follow closely. FINISHED STOCK INSPECTOR STATEMENT: Patient was seen and examined by nurse practitioner Yudy Mckay and all elements of the case were discussed with attending Dr. Dexter. 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 PAST 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 Gastric Ulcer. Stroke on 02/23/17-HAS MINIMAL RESUDUAL LT FACIAL DROOP AND LT SIDE WEAKNESS. stage 2 kidney disease , rt eye cataract. uti, no cpap used for sleep apnea History of Any Multi-Drug Resistant Organisms: None Reported Past Surgical History: Hernia Repair, Joint Replacement, Orthopedic Surgery Additional Past Surgical History / Comment(s): RT TOTAL KNEE,past peg tube- since removed. intracranial angioplasty at [facility] on 06/01/2017 Past Anesthesia/Blood Transfusion Reactions: No Reported Reaction Smoking Status: Former smoker - Past Family History Mother Family Medical History: CVA/TIA, Diabetes Mellitus, Hyperlipidemia, Hypertension Father Family Medical History: CVA/TIA, Hypertension Medications and Allergies Home Medications Medication Instructions Recorded Confirmed Type Aspirin EC [Ecotrin Low Dose] 81 mg PO QAM 05/26/17 09/25/17 History Atorvastatin [Lipitor] 80 mg PO HS 05/26/17 09/25/17 History Cholecalciferol [Vitamin D3] 1,000 unit PO QAM 05/26/17 09/25/17 History Glycopyrrolate/Formoterol Fum 1 puff INHALATION RT-BID 05/26/17 09/25/17 History [Bevespi Aerosphere Inhaler] Ipratropium-Albuterol Nebulize 3 ml INHALATION RT-BID 05/26/17 09/25/17 History [Duoneb 0.5 mg-3 mg/3 ml Soln] Tamsulosin HCl [Flomax] 0.4 mg PO QAM 05/26/17 09/25/17 History amLODIPine [Norvasc] 10 mg PO QAM 05/26/17 09/25/17 History Ferrous Sulfate [Feosol] 325 mg PO DAILY 06/29/17 09/25/17 History Ranitidine HCl [Zantac] 150 mg PO HS 07/13/17 09/25/17 History Benzoyl Peroxide [Benzac AC Wash] 1 applic TOPICAL DAILY 08/28/17 09/25/17 History Clindamycin Topical Soln 1 applic TOPICAL BID 08/28/17 09/25/17 History [Cleocin-T Topical Soln] Docusate [Colace] 100 mg PO DAILY 08/28/17 09/25/17 History Hydrocortisone Cream 1 applic TOPICAL BID 08/28/17 09/25/17 History [Hydrocortisone 2.5% Cream] Ketoconazole 2% Shampoo [Nizoral] 1 applic TOPICAL MOTH 08/28/17 09/25/17 History Sertraline [Zoloft] 25 mg PO DAILY 08/28/17 09/25/17 History Tolterodine Tartrate [Detrol LA] 4 mg PO DAILY 08/28/17 09/25/17 History Allergies Allergy/AdvReac Type Severity Reaction Status Date / Time No Known Allergies Allergy Verified 09/25/17 14:26 Physical Exam Vitals: Vital Signs Temp Pulse Pulse Resp BP BP Pulse Ox 09/26/17 07:04 60 18 09/25/17 20:00 68 18 09/25/17 19:14 97.2 F L 67 17 144/76 98 09/25/17 19:08 98.7 F 69 18 141/78 100 09/25/17 18:10 98.0 F 68 16 130/78 99 09/25/17 17:10 97.4 F L 76 16 136/82 100 09/25/17 16:10 98.2 F 681 H 6 L 133/80 100 09/25/17 15:40 98.2 F 64 16 127/75 99 09/25/17 15:10 98.1 F 62 15 122/77 100 09/25/17 14:40 98.1 F 60 14 124/64 100 09/25/17 14:25 98.1 F 62 15 114/67 100 09/25/17 14:10 97.8 F 62 15 110/53 100 09/25/17 13:55 97.8 F 62 15 104/64 100 09/25/17 13:40 97.8 F 60 15 114/67 100 09/25/17 13:34 97.8 F 70 16 116/69 98 Intake and Output 09/25/17 09/26/17 09/26/17 22:59 06:59 14:59 Intake Total 150 Output Total 200 Balance -200 150 Intake: IV 150 Sodium Chloride 0.9% 1, 150 000 ml @ 75 mls/hr IV . [id number] [facility] Rx#:[id number] Output: Urine 200 Other: Voiding Method Urinal Urinal Incontinent Incontinent # Voids 1 1 Weight 64.4 kg Results CBC & Chem 7: 09/26/17 06:07 09/26/17 06:07 Labs: Abnormal Lab Results - Last 24 Hours (Table) 09/25/17 09/25/17 09/25/17 Range/Units 13:36 13:40 13:40 RBC 3.56 L (4.30-5.90) m/uL Hgb 10.0 L D (13.0-17.5) gm/dL Hct 33.4 L (39.0-53.0) % MCHC 30.0 L (31.0-37.0) g/dL RDW 19.4 H (11.5-15.5) % Creatinine 1.51 H (0.66-1.25) mg/dL Glucose 141 H (74-99) mg/dL POC Glucose (mg/dL) 131 H (75-99) mg/dL 09/26/17 Range/Units 06:07 RBC 3.34 L (4.30-5.90) m/uL Hgb 9.3 L (13.0-17.5) gm/dL Hct 31.1 L (39.0-53.0) % MCHC 29.9 L (31.0-37.0) g/dL RDW 19.1 H (11.5-15.5) % Creatinine (0.66-1.25) mg/dL Glucose (74-99) mg/dL POC Glucose (mg/dL) (75-99) mg/dL Thrombosis Risk Factor Assmnt - Choose All That Apply Any of the Below Risk Factors Present?: Yes Other Risk Factors: Yes Each Risk Factor Represents 2 Points: Age 61-74 years Other congenital or acquired thrombophilia - If yes, enter type in comment: No Thrombosis Risk Factor Assessment Total Risk Factor Score: 2 Thrombosis Risk Factor Assessment Level: Low Risk
[2017-09-26] MEDS ORDERED: FERROUS SULFATE 325 MG TAB PO SCH (12:00)
[2017-09-26] MEDS ORDERED: CHOLECALCIFEROL 1,000 UNIT TAB PO SCH (12:00)
--- NOTE | 2017-09-26 12:30 | HP ---
HISTORY AND PHYSICAL DATE OF SERVICE: 09/25/2017 ADMITTING NOTE: Patient seen and examined by me yesterday on 09/25/2017. I discussed with my nurse practitioner, Woody. This is a patient well known to me who has had prior strokes. Patient at the dining table became weak, started drooling, lethargic. The patient is not able to eat or drink or swallow and the weakness is entirely on the left side. By the time I got to see the patient, patient was back to his baseline. PHYSICAL EXAMINATION: On examination, vital signs on presentation: Temperature 97.8, pulse 70, respiration 16, blood pressure 116/69 pulse ox 98% on room. Lungs are clear. CARDIOVASCULAR: First and second sounds normal. No focal weakness. White count 6, hemoglobin 10, creatinine 1.[address] scan of the brain nil acute, some chronic changes. ASSESSMENT: 1. Acute transient ischemic attack probably in the right middle cerebral artery area likely ischemic in nature in a patient who has had multiple strokes in the past with severe M2 origin stenosis who has had angioplasty and residual 50% stenosis. 2. Essential hypertension. 3. Hyperlipidemia. 4. Primary osteoarthritis multiple joints, bilaterally. 5. Chronic obstructive pulmonary disease in an ex-smoker. 6. Chronic gait dysfunction, uses a walker. 7. Benign prostatic hypertrophy. 8. Obstructive sleep apnea, does not use a CPAP machine. Patient on October 29 did have a EEG by Dr. Silverio that was within normal limits. The patient did have a MRI of the brain back on 07/06/17 that showed some chronic changes. PLAN: The patient is on aspirin, Lipitor 80 mg and this was expected as discussed with the patient earlier from his previous findings. We will watch the patient for 24 hours to make show there is no relapse of his neurological symptoms. Repeat electrolytes in the morning. MMODL / IJN: [id number] /
[2017-09-26 12:57] VITALS: BP 144/77; PULSE 71; TEMP 97.1
--- NOTE | 2017-09-27 06:35 | DS ---
DISCHARGE SUMMARY FINAL DIAGNOSES: 1. Acute transient ischemic attack probably in the right middle cerebral artery area likely ischemic in nature in a patient who has multiple strokes in the past with severe M2 origin stenosis. Had angioplasty in residual 50% stenosis. 2. Essential hypertension. 3. Hyperlipidemia. 4. Primary osteoarthritis multiple joints, bilateral. 5. Chronic obstructive pulmonary disease in an ex-smoker. 6. Chronic gait dysfunction uses a walker. 7. Benign prostatic hypertrophy. 8. Obstructive sleep apnea does not use CPAP machine. HOSPITAL COURSE: This is a patient with prior intervention as above presented yet again with TIA lasting for few hours and then completely resolved. The patient did have an MRI on 07/06/17 that showed chronic changes and EEG done recently was unremarkable. The patient does follow up with . Care was discussed the patient and , will keep the appointment [facility]. Patient also due to see Dr. Mcghee in the office in next 1 week. On examination complete resolution of this acute new neuro deficit. HOME GO MEDICATIONS: Aspirin 81 mg p.o. daily, Lipitor 80 mg q.h.s. vitamin D3 1000 units p.o. daily, Bevespi 1 puff b.i.d., DuoNeb b.i.d., Flomax 0.4 mg p.o. daily, Norvasc 10 mg p.o. daily, iron 325 p.o. daily, Zantac 150 mg p.o. q.h.s., men's eye wash 1 application topical daily, topical b.i.d., Colace 100 mg p.o. daily. Hydrocortisone 2.5% cream topical b.i.d., Nasorel 2% topical Sunday and . Zoloft 25 mg p.o. daily. Detrol LA 4 mg p.o. daily. Follow up with Dr. Marilyn Mcghee 10/03/17, follow up with Dr. Luke on 10/11/17. MMODL / GALLON: [id number] /
== END 2017-09-26 15:54 | disposition home or self-care (01) | DRG 69 ==
LOC: EC 13:28 → 6SEL 16:14
PROVIDERS: ADMIT Hospitalist; ATTEND Hospitalist
DX: G45.9 Transient cerebral ischemic attack, unspecified (principal); I69.354 Hemiplegia and hemiparesis following cerebral infarction affecting left non-dominant side; J44.9 Chronic obstructive pulmonary disease, unspecified; E78.5 Hyperlipidemia, unspecified; M15.9 Polyosteoarthritis, unspecified; R26.9 Unspecified abnormalities of gait and mobility; N40.0 Benign prostatic hyperplasia without lower urinary tract symptoms; G47.33 Obstructive sleep apnea (adult) (pediatric); K21.9 Gastro-esophageal reflux disease without esophagitis; I12.9 Hypertensive chronic kidney disease with stage 1 through stage 4 chronic kidney disease, or unspecified chronic kidney disease; N18.2 Chronic kidney disease, stage 2 (mild); Z96.651 Presence of right artificial knee joint; Z87.19 Personal history of other diseases of the digestive system; Z87.891 Personal history of nicotine dependence; Z82.3 Family history of stroke; Z79.899 Other long term (current) drug therapy; Z79.82 Long term (current) use of aspirin; Z98.41 Cataract extraction status, right eye; I69.392 Facial weakness following cerebral infarction; Z83.3 Family history of diabetes mellitus; Z82.49 Family history of ischemic heart disease and other diseases of the circulatory system; Z87.11 Personal history of peptic ulcer disease
CPT/HCPCS: 36415; 70450; 71020; 80048; 80053; 80061; 82550; 82553; 84484; 85025; 85610; 85730; 93005; 96360; 96361; 99291

== ENCOUNTER 2017-11-08 09:30 | Observation (INO) | payer MEDICARE, BC ==
[2017-11-08] MEDS ORDERED: RX INFO: IV CONTRAST WAS GIVEN 1 EACH MISC MISCELLANE PRN (09:47)
[2017-11-08 09:48] LABS: Glucose,Whole Blood 146 mg/dL (75-99)
--- NOTE | 2017-11-08 09:50 | ED ---
General Adult HPI - General Stated complaint: POSS CVA Time Seen by Provider: 11/08/17 09:34 Source: patient, family, RN notes reviewed Limitations: no limitations - History of Present Illness Initial comments: Patient is a pleasant 5 he 6-year-old male presenting to the emergency department for concerns for TIA. Patient has had several previous strokes and multiple previous TIAs. Last was January. Patient did have angioplasty done and did have his neurologist reevaluate this just a few months ago. Area was reported as still being open. Today patient woke up and was normal. Patient did have a fall around 8 or 8:30. No injury. No syncope. states left- sided facial droop is increased from baseline. Patient does have chronic left- sided deficits. - Related Data Home Medications Medication Instructions Recorded Confirmed Aspirin EC [Ecotrin Low Dose] 81 mg PO QAM 05/26/17 11/08/17 Atorvastatin [Lipitor] 80 mg PO HS 05/26/17 11/08/17 Cholecalciferol [Vitamin D3] 1,000 unit PO QAM 05/26/17 11/08/17 Glycopyrrolate/Formoterol Fum 1 puff INHALATION RT-BID 05/26/17 11/08/17 [Bevespi Aerosphere Inhaler] Ipratropium-Albuterol Nebulize 3 ml INHALATION RT-BID 05/26/17 11/08/17 [Duoneb 0.5 mg-3 mg/3 ml Soln] Tamsulosin HCl [Flomax] 0.4 mg PO QAM 05/26/17 11/08/17 amLODIPine [Norvasc] 10 mg PO QAM 05/26/17 11/08/17 Ferrous Sulfate [Feosol] 325 mg PO DAILY 06/29/17 11/08/17 Ranitidine HCl [Zantac] 150 mg PO BID 07/13/17 11/08/17 Clindamycin Topical Soln 1 applic TOPICAL BID 08/28/17 11/08/17 [Cleocin-T Topical Soln] Hydrocortisone Cream 1 applic TOPICAL BID 08/28/17 11/08/17 [Hydrocortisone 2.5% Cream] Ketoconazole 2% Shampoo [Nizoral] 1 applic TOPICAL MOTH 08/28/17 11/08/17 Sertraline [Zoloft] 25 mg PO DAILY 08/28/17 11/08/17 Tolterodine Tartrate [Detrol LA] 4 mg PO DAILY 08/28/17 11/08/17 Budesonide [Pulmicort] 0.5 mg INHALATION RT-BID 11/08/17 11/08/17 Allergies Allergy/AdvReac Type Severity Reaction Status Date / Time No Known Allergies Allergy Verified 11/08/17 10:13 Review of Systems ROS Statement: Those systems with pertinent positive or pertinent negative responses have been documented in the HPI. ROS Other: All systems not noted in ROS Statement are negative. Constitutional: Denies: fever Eyes: Denies: eye pain ENT: Denies: ear pain Respiratory: Denies: cough Cardiovascular: Denies: chest pain Endocrine: Denies: fatigue Gastrointestinal: Denies: abdominal pain Genitourinary: Denies: dysuria Musculoskeletal: Denies: back pain Skin: Denies: rash Neurological: Reports: weakness. 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 PAST 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 Gastric Ulcer. Stroke on 02/23/17-HAS MINIMAL RESUDUAL LT FACIAL DROOP AND LT SIDE WEAKNESS. stage 2 kidney disease , rt eye cataract. uti, no cpap used for sleep apnea History of Any Multi-Drug Resistant Organisms: None Reported Past Surgical History: Hernia Repair, Joint Replacement, Orthopedic Surgery Additional Past Surgical History / Comment(s): RT TOTAL KNEE,past peg tube- since removed. intracranial angioplasty at [facility] on 06/01/2017 Past Anesthesia/Blood Transfusion Reactions: No Reported Reaction Smoking Status: Former smoker - Past Family History Mother Family Medical History: CVA/TIA, Diabetes Mellitus, Hyperlipidemia, Hypertension Father Family Medical History: CVA/TIA, Hypertension General Exam Limitations: no limitations General appearance: alert, in no apparent distress Head exam: Present: atraumatic Eye exam: Present: normal appearance, PERRL, EOMI. Absent: nystagmus ENT exam: Present: normal oropharynx Neck exam: Present: normal inspection Respiratory exam: Present: normal lung sounds bilaterally Cardiovascular Exam: Present: regular rate, normal rhythm Expanded Peripheral pulses: 2+: Radial (R), Radial (L), Dorsalis Pedis (R), Dorsalis Pedis (L) GI/Abdominal exam: Present: soft. Absent: tenderness Extremities exam: Present: normal inspection Neurological exam: Present: alert, oriented X3, CN II-XII intact (Except left facial droop and weakness of left shoulder shrug) Expanded Cranial nerves: EOM's Intact: Normal, Facial Sensation: Normal Cerebellar function: Finger to Nose: Normal Sensory exam: Upper Extremity Light Touch: Normal, Lower Extremity Light Touch: Normal Motor strength exam: RUE: 5, LUE: 5, RLE: 5, LLE: 5 Eye Response: (4) open spontaneously Motor Response: (6) obeys commands Verbal Response: (5) oriented Psychiatric exam: Present: normal affect, normal mood Skin exam: Present: normal color Course Vital Signs 11/08/17 11/08/17 10:18 11:34 Temperature 98.8 F Pulse Rate 67 61 Respiratory 18 18 Rate Blood Pressure 110/61 138/73 O2 Sat by Pulse 98 98 Oximetry - Reevaluation(s) Reevaluation #1: 11/08/17 09:48 Code stroke has already been called. 11/08/17 10:00 Case was discussed with neural interventional list, Dr. duarte, who does not recommend patient received TPA. Medical Decision Making - Medical Decision Making Patient reevaluated and unchanged. Case was discussed with practitioner Yudy, covering for Dr. boyd who will admit for Dr. Luke. Neurology will be placed on consult. - Lab Data Result diagrams: 11/08/17 09:50 11/08/17 09:50 Lab Results 11/08/17 11/08/17 11/08/17 Range/Units 09:43 09:50 09:50 WBC 6.1 (3.8-10.6) k/uL RBC 3.45 L (4.30-5.90) m/uL Hgb 9.7 L (13.0-17.5) gm/dL Hct 31.6 L (39.0-53.0) % MCV 91.4 (80.0-100.0) fL MCH 28.2 (25.0-35.0) pg MCHC 30.8 L (31.0-37.0) g/dL RDW 19.5 H (11.5-15.5) % Plt Count 269 (150-450) k/uL Neutrophils % 58 % Lymphocytes % 31 % Monocytes % 5 % Eosinophils % 3 % Basophils % 1 % Neutrophils # 3.6 (1.3-7.7) k/uL Lymphocytes # 1.9 (1.0-4.8) k/uL Monocytes # 0.3 (0-1.0) k/uL Eosinophils # 0.2 (0-0.7) k/uL Basophils # 0.0 (0-0.2) k/uL Hypochromasia Slight Anisocytosis Slight PT (9.0-12.0) sec INR (<1.2) APTT (22.0-30.0) sec Sodium 139 (137-145) mmol/L Potassium 3.5 (3.5-5.1) mmol/L Chloride 101 (98-107) mmol/L Carbon Dioxide 27 (22-30) mmol/L Anion Gap 11 mmol/L BUN 19 (9-20) mg/dL Creatinine 1.59 H (0.66-1.25) mg/dL Est GFR (MDRD) Af Amer 53 (>60 ml/min/1.73 sqM) Est GFR (MDRD) Non-Af 44 (>60 ml/min/1.73 sqM) Glucose 137 H (74-99) mg/dL POC Glucose (mg/dL) 146 H (75-99) mg/dL POC Glu Feed Mixer ID Brad Mauricio Calcium 9.8 (8.4-10.2) mg/dL Total Bilirubin 0.3 (0.2-1.3) mg/dL AST 21 (17-59) U/L ALT 43 (21-72) U/L Alkaline Phosphatase 108 (38-126) U/L Total Creatine Kinase (55-170) U/L CK-MB (CK-2) (0.0-2.4) ng/mL CK-MB (CK-2) Rel Index Troponin I (0.000-0.034) ng/mL Total Protein 6.9 (6.3-8.2) g/dL Albumin 3.9 (3.5-5.0) g/dL 11/08/17 11/08/17 Range/Units 09:50 09:50 WBC (3.8-10.6) k/uL RBC (4.30-5.90) m/uL Hgb (13.0-17.5) gm/dL Hct (39.0-53.0) % MCV (80.0-100.0) fL MCH (25.0-35.0) pg MCHC (31.0-37.0) g/dL RDW (11.5-15.5) % Plt Count (150-450) k/uL Neutrophils % % Lymphocytes % % Monocytes % % Eosinophils % % Basophils % % Neutrophils # (1.3-7.7) k/uL Lymphocytes # (1.0-4.8) k/uL Monocytes # (0-1.0) k/uL Eosinophils # (0-0.7) k/uL Basophils # (0-0.2) k/uL Hypochromasia Anisocytosis PT 9.9 (9.0-12.0) sec INR 1.0 (<1.2) APTT 23.3 (22.0-30.0) sec Sodium (137-145) mmol/L Potassium (3.5-5.1) mmol/L Chloride (98-107) mmol/L Carbon Dioxide (22-30) mmol/L Anion Gap mmol/L BUN (9-20) mg/dL Creatinine (0.66-1.25) mg/dL Est GFR (MDRD) Af Amer (>60 ml/min/1.73 sqM) Est GFR (MDRD) Non-Af (>60 ml/min/1.73 sqM) Glucose (74-99) mg/dL POC Glucose (mg/dL) (75-99) mg/dL POC Glu Feed Mixer ID Calcium (8.4-10.2) mg/dL Total Bilirubin (0.2-1.3) mg/dL AST (17-59) U/L ALT (21-72) U/L Alkaline Phosphatase (38-126) U/L Total Creatine Kinase 67 (55-170) U/L CK-MB (CK-2) 0.3 (0.0-2.4) ng/mL CK-MB (CK-2) Rel Index 0.4 Troponin I <0.012 (0.000-0.034) ng/mL Total Protein (6.3-8.2) g/dL Albumin (3.5-5.0) g/dL - Radiology Data Radiology results: report reviewed (CT angiogram of the brain and neck shows no significant abnormality. Exam is limited.), image reviewed (Two-view chest x- ray shows no evidence for acute pulmonary disease. Computed tomography scan of the brain shows no acute intercranial abnormality. Age-related atrophy and chronic small vessel ischemia changes are present.) Disposition Clinical Impression: Transient cerebral ischemia Disposition: ADMITTED IP TO THIS [facility] Referrals: Rick Luke MD [Primary Care Provider] - 1-2 days Decision Time: 12:37
--- NOTE | 2017-11-08 10:17 | CT ---
EXAMINATION TYPE: CT brain wo con for TPA DATE OF EXAM: 11/08/2017 COMPARISON: 09/25/2017 HISTORY: Patient poor historian. Neuro deficits. Possible dizziness and fall. CT DLP: [address] of the brain was performed. The ventricles, basal cisterns and sulci overlying the cerebral convexities demonstrate mild enlargem ent. Small remote insult right [place] radiata anteriorly. Remote insult also noted in the region of t he anterior limb right internal capsule. There is no evidence for intracranial hemorrhage or sulcal effacement. There is decreased attenuation about the periventricular white matter and deep white matter of both c erebral hemispheres, compatible with chronic small vessel ischemia. Differential diagnosis does inclu de demyelination. No mass effects are seen.No midline shift. Osseous calvarium is intact. If symptoms persist consider MRI. IMPRESSION: 1. Age related atrophic and chronic small vessel ischemic change without acute intracranial process s een at this time.
[2017-11-08 10:19] LABS: Anisocytosis Slight; Basophils % (A) 1 %; Eosinophils # (A) 0.2 k/uL (0-0.7); Eosinophils % (A) 3 %; HCT 31.6 % (39.0-53.0); HGB 9.7 gm/dL (13.0-17.5); Hypochromasia Slight; Lymphocytes # (A) 1.9 k/uL (1.0-4.8); Lymphocytes % (A) 31 %; MCH 28.2 pg (25.0-35.0); MCHC 30.8 g/dL (31.0-37.0); MCV 91.4 fL (80.0-100.0); Mean Platelet Volume 7.5; Monocytes # (A) 0.3 k/uL (0-1.0); Monocytes % (A) 5 %; Neutrophils # (A) 3.6 k/uL (1.3-7.7); Neutrophils % (A) 58 %; Platelet Count 269 k/uL (150-450); RBC 3.45 m/uL (4.30-5.90); RDW 19.5 % (11.5-15.5); WBC 6.1 k/uL (3.8-10.6)
[2017-11-08 10:31] LABS: Albumin 3.9 g/dL (3.5-5.0); Calcium 9.8 mg/dL (8.4-10.2); Potassium 3.5 mmol/L (3.5-5.1); Total Bilirubin 0.3 mg/dL (0.2-1.3); Total Protein 6.9 g/dL (6.3-8.2)
[2017-11-08 10:33] LABS: Partial Thromboplastin Time 23.3 sec (22.0-30.0); Prothrombin Time 9.9 sec (9.0-12.0)
[2017-11-08 10:40] LABS: Creatine Kinase 67 U/L (55-170)
[2017-11-08 10:53] LABS: Creatine Kinase MB 0.3 ng/mL (0.0-2.4); Troponin I <0.012 ng/mL (0.000-0.034)
--- NOTE | 2017-11-08 11:44 | CT ---
EXAMINATION TYPE: CT angio head neck DATE OF EXAM: 11/08/2017 COMPARISON: NONE HISTORY: Neuro Deficits CONTRAST: 65 ml Omni 350 +50 ml saline. Partial IV failure during exam, unknown amount of contrast leaked onto table and floor. Combination Contrast CTA cervical carotids and [place] CTA cervical carotids with 3-D recons truction Contrast CTA of the cervical carotids was performed 3-D reconstruction imaging obtained at a separate workstation. Right carotid system: Mild plaque is seen of the right common carotid artery. There is mild plaque a lso noted at the carotid bulb and proximal ICA. No significant diameter reduction. ECA is patent. Right vertebral artery appears unremarkable. Left carotid system: Mild plaque is seen of the left common carotid artery. There is mild to moderat e plaque also noted at the carotid bulb and proximal ICS. No significant diameter reduction. ECA is patent. Left vertebral artery appears unremarkable. IMPRESSION: 1. Although the examination is limited given partial IV failure and limiting contrast bolus No signif icant diameter reduction to account for the patient's symptoms. CTA [place] with 3-D reconstruction Contrast CTA of the [place] was performed 3-D reconstruction imaging obtained at a separate workstation. Vertebrobasilar system as well as intracranial portions of the internal carotid arteries and their ma sherif tributaries are patent. I do not see evidence for sizable aneurysm or vascular malformation. Pl ease note MRI provides greater sensitivity and specificity. Visualized brain appears grossly unremar kable. IMPRESSION: 1. No significant abnormality. Limited study.
--- NOTE | 2017-11-08 12:18 | XR ---
EXAMINATION TYPE: XR chest 2V DATE OF EXAM: 11/08/2017 COMPARISON: 04/27/2017 09/25/2017 HISTORY: Shortness of breath TECHNIQUE: Frontal and lateral views of the chest are obtained. FINDINGS: Scattered senescent parenchymal changes noted. Hyperinflation compatible with COPD. No evidence for infiltrate. No evidence for atelectasis. Heart size is stable. Mediastinal structures are stable and grossly unremarkable. No evidence for hilar prominence. Degenerative changes dorsal spine. IMPRESSION: 1. No evidence for acute pulmonary disease.
[2017-11-08] MEDS ORDERED: ASPIRIN 325 MG TAB PO STA (12:37)
[2017-11-08] MEDS: SODIUM CHLORIDE 0.9% 1,000 ML IV SCH ×2 (12:46→22:17)
--- NOTE | 2017-11-08 17:58 | HP ---
HISTORY AND PHYSICAL DATE OF ADMISSION: November 08, 2017. PRESENT COMPLAINT: Weakness in the left leg. HISTORY OF PRESENTING COMPLAINT: This is a pleasant 66 -year-old patient of Dr. Luke. Chronic stable medical conditions include hypertension, hyperlipidemia, osteoporosis, GERD, COPD, gastric ulcer. The patient has a history of multiple TIAs and stents in the past. The patient had a focal severe right M2 origin stenosis at [facility] and did have a stent placed there. He only follows at [facility] on a p.r.n. basis. Today patient went to the door and turned around and he felt his legs go weak and actually fell down. The patient was a bit dizzy prior to that. Symptoms then completely resolved. The patient's had to get him up. There was no change in vision. No change in speech. He thought he may be temporarily weak in the left leg. He cannot be too sure. REVIEW OF SYSTEMS: CONSTITUTIONAL: None. HEENT none. Respiratory none. Cardiovascular none. Gastrointestinal none. Musculoskeletal: Pain in different joints especially the knee. Lymphatics: None: Psychiatry: A bit forgetful. Neurological as above. PAST MEDICAL HISTORY: Of multiple strokes, TIAs with a focal severe right M2 origin stenosis with angioplastied at [facility], hypertension, hyperlipidemia, osteoarthritis, GERD, COPD, right third toe osteomyelitis, gastric ulcer, PEG tube in the past. PAST SURGICAL HISTORY: Hernia repair, joint replacement, orthopedic surgery, right total knee replacement. ALLERGIES: None. SOCIAL HISTORY: Patient smoked a pack a day for about 30 years. Stopped about 7 months ago. . He does use a cane. Alcohol occasionally. FAMILY HISTORY: Of stroke, diabetes, hyperlipidemia and hypertension. HOME MEDICATIONS: 1. Detrol LA 4 mg p.o. daily. 2. Flomax 0.4 mg p.o. daily. 3. Vitamin D3 1000 units p.o. daily. 4. Zoloft 25 p.o. daily. 5. Zantac 150 mg p.o. b.i.d. 6. 2% topical Mondays and . 7. DuoNeb b.i.d. 8. Hydrocortisone 2% topical b.i.d. 9. Iron 325 p.o. daily. 10.Norvasc 10 mg p.o. daily. 11.BVSPI inhaler 1 puff b.i.d. 12.Cleocin-T 1 application topical b.i.d. 13.Pulmicort 0.5 b.i.d. 14.Lipitor 80 mg q.h.s. 15.Aspirin 81 mg p.o. daily. ALLERGIES: None. PHYSICAL EXAMINATION: Temperature 98.3, pulse 82, respiration 16, blood pressure 145/74, pulse ox 100% on 2 L. General appearance: Average build, lying in bed, not in distress. EYES: Pupils equal. Conjunctivae normal. HEENT: Oral cavity normal. Neck JVD not raised. Mass not palpable. Respiratory effort: Lungs decreased breath sounds. Cardiovascular: First and second sounds normal. No edema. ABDOMEN: Soft, nontender. Liver and spleen not palpable. Lymphatics: No lymph nodes palpable in neck or axillae. PSYCHIATRY: Alert and oriented x3. Mood and affect normal. Neurological: Pupils equal. Cranial nerves grossly intact. Power and sensation grossly intact. INVESTIGATIONS: White count 6.1, hemoglobin 9.7, potassium 3.5, BUN 19, creatinine 1.59. Troponin negative. CT angio of the brain . ASSESSMENT: 1. Possibly transient ischemic attack in a patient with multiple strokes in the past. 2. History of angioplasty due to severe M2 origin stenosis with residual 50% stenosis. 3. Essential hypertension. 4. Hyperlipidemia. 5. Primary osteoarthritis multiple joints bilaterally. 6. Chronic obstructive pulmonary disease in an ex-smoker. 7. Chronic gait dysfunction, uses a cane. PLAN: The patient is continued on aspirin, Lipitor. Neurology was consulted. We will repeat the patient's creatinine in the morning. The patient will get some hydration overnight. Care was discussed with the patient. Neuro checks are in place. The patient has no trouble swallowing. Copy Dr. Luke. JORDY / GALLON: [id number] /
[2017-11-08] MEDS: ENOXAPARIN 40 MG/0.4 ML SYRINGE SQ SCH (18:25)
[2017-11-08] MEDS: IPRATROPIUM-ALBUTEROL 3 ML NEB INHALATION SCH (19:13)
[2017-11-08] MEDS: BUDESONIDE 0.5 MG/2 ML NEBU INHALATION SCH (19:13)
[2017-11-08] MEDS ORDERED: ATORVASTATIN 80 MG TAB PO SCH (21:00)
--- NOTE | 2017-11-08 22:07 | P.CNNES ---
History of Present Illness Consult date: 11/08/17 Reason for Consult: Patient admitted with episode of possible TIA versus stroke History of Present Illness: This patient is a 66-year-old right-handed -[place] male who is followed in the outpatient medical clinic with Dr. Luke. Patient states that about 9 AM this morning he was getting ready to go to have physical therapy and developed some weakness in his legs. Initially he felt both legs were weak but he continued to walk over to reach a cane that he was going to use to go for therapy. Apparently he reached with a cane and then fell down onto the floor. His further falling came to assist him. He did not have any obvious signs of passing out but was on the floor and apparently fell onto his left side. noted a slight increase in left-sided facial droop. Patient has a history of multiple previous strokes and TIAs. He has been evaluated at the stroke clinic at [facility] and is known to have focal severe arteriosclerosis of the brain which has required stent placement in the past. He has a history of focal severe right M2 segment stenosis of the carotid artery as well which has been treated at [facility] in the past. The patient has been taking aspirin as his primary stroke prevention. He does have history of more chronic left-sided weakness from his previous stroke including some facial weakness. The patient presented to the emergency room at about 9: 30 AM. He was seen in the ER by Dr. Prashanth Helton. A code stroke was initiated as a patient complained of left-sided weakness and mild facial droop. Code stroke was called at 9:48 AM on 11/08/2017. Dr. Helton did discuss the patient' s symptoms and findings with the neuro interventionalist Dr. Ferrari and it was decided the patient was not recommended to receive TPA. Did undergo a computed tomography scan of the brain for evaluation of TPA. CAT scan reported age-related atrophy and chronic small vessel ischemic changes without acute intracranial process. Patient subsequently had a CTA angiogram of the head and neck which revealed no significant abnormality. As noted the neuro interventional this did not recommend tPA for the patient. He was admitted to hospital for further management of TIA. As noted the patient does have history of severe intracranial disease that has been followed closely by the stroke specialists at [facility]. He has had stenting done for blockage of several of these intracranial arteries. His symptoms have significant improved since admission to the hospital. He states his left leg is back to normal in terms of strength in his facial droop also is significantly improved. His clinical history and exam findings at this time suggest right hemispheric TIA. Patient may benefit reevaluation in the stroke clinic at [facility] as he has had previous similar TIAs in the past. At this time he is to continue him on aspirin daily and we will request a PT consult. Neurology is now been consulted for further evaluation and recommendations. Review of Systems Constitutional: Denies chills, Denies fever Eyes: denies blurred vision, denies pain Ears, nose, mouth and throat: Denies headache, Denies sore throat Cardiovascular: Denies chest pain, Denies shortness of breath Respiratory: Denies cough Gastrointestinal: Denies abdominal pain, Denies diarrhea, Denies nausea, Denies vomiting Musculoskeletal: Denies myalgias Integumentary: Denies pruritus, Denies rash Neurological: Reports gait dysfunction, Denies numbness, Denies weakness Psychiatric: Denies anxiety, Denies depression Endocrine: Denies fatigue, Denies weight change Past Medical History Past Medical History: COPD, CVA/TIA, GERD/Reflux, Hyperlipidemia, Hypertension, Musculoskeletal Disorder, Prostate Disorder, Renal Disease, Sleep Apnea/CPAP/ BIPAP Additional Past Medical History / Comment(s): CVAs with last one being on -pt has minimal L sided weaknes/facial droop, TIAs, past gastric ulcer, chronic renal disease stage II, ROSA (waiting for Cpap machine), past R foot 3rd toe osteomyelitis, arthritis multiple joints, R eye cataract, UTI, BPH. History of Any Multi-Drug Resistant Organisms: None Reported Past Surgical History: Hernia Repair, Joint Replacement, Orthopedic Surgery Additional Past Surgical History / Comment(s): RT TOTAL KNEE,past peg tube- since removed. intracranial angioplasty at [facility] on 06/01/2017, colonoscopies. Past Anesthesia/Blood Transfusion Reactions: No Reported Reaction Smoking Status: Former smoker - Past Family History Mother Family Medical History: CVA/TIA, Diabetes Mellitus, Hyperlipidemia, Hypertension Father Family Medical History: CVA/TIA, Hypertension Medications and Allergies Home Medications Medication Instructions Recorded Confirmed Type Aspirin EC [Ecotrin Low Dose] 81 mg PO QAM 05/26/17 11/08/17 History Atorvastatin [Lipitor] 80 mg PO HS 05/26/17 11/08/17 History Cholecalciferol [Vitamin D3] 1,000 unit PO QAM 05/26/17 11/08/17 History Glycopyrrolate/Formoterol Fum 1 puff INHALATION RT-BID 05/26/17 11/08/17 History [Bevespi Aerosphere Inhaler] Ipratropium-Albuterol Nebulize 3 ml INHALATION RT-BID 05/26/17 11/08/17 History [Duoneb 0.5 mg-3 mg/3 ml Soln] Tamsulosin HCl [Flomax] 0.4 mg PO QAM 05/26/17 11/08/17 History amLODIPine [Norvasc] 10 mg PO QAM 05/26/17 11/08/17 History Ferrous Sulfate [Feosol] 325 mg PO DAILY 06/29/17 11/08/17 History Ranitidine HCl [Zantac] 150 mg PO BID 07/13/17 11/08/17 History Clindamycin Topical Soln 1 applic TOPICAL BID 08/28/17 11/08/17 History [Cleocin-T Topical Soln] Hydrocortisone Cream 1 applic TOPICAL BID 08/28/17 11/08/17 History [Hydrocortisone 2.5% Cream] Ketoconazole 2% Shampoo [Nizoral] 1 applic TOPICAL MOTH 08/28/17 11/08/17 History Sertraline [Zoloft] 25 mg PO DAILY 08/28/17 11/08/17 History Tolterodine Tartrate [Detrol LA] 4 mg PO DAILY 08/28/17 11/08/17 History Budesonide [Pulmicort] 0.5 mg INHALATION RT-BID 11/08/17 11/08/17 History Allergies Allergy/AdvReac Type Severity Reaction Status Date / Time No Known Allergies Allergy Verified 11/08/17 10:13 Physical Examination - Vital Signs Vital Signs: Vital Signs Temp Pulse Pulse Resp BP BP Pulse Ox 11/08/17 19:28 64 11/08/17 19:14 62 11/08/17 16:00 98.7 F 60 16 130/73 95 11/08/17 15:16 98 11/08/17 15:08 64 16 11/08/17 13:27 98.3 F 62 16 145/74 100 11/08/17 12:47 98.3 F 64 16 141/77 100 11/08/17 12:37 62 145/74 100 11/08/17 11:34 61 18 138/73 98 11/08/17 10:18 98.8 F 67 18 110/61 98 Intake and Output 11/08/17 11/08/17 11/08/17 06:59 14:59 22:59 Intake Total 300 Balance 300 Intake: Amount of Fluid Infused ( 300 ml) Other: # Voids 1 Weight 79.379 kg Patient Weight 11/09/17 06:59 Weight 79.379 kg - Constitutional General appearance: average body habitus, cooperative - EENT EENT: PERRL, mucous membranes moist - Respiratory Respiratory: lungs clear, normal breath sounds - Cardiovascular Cardiovascular: regular rate, normal S1, normal S2 Extremities: no peripheral edema bilaterally - Gastrointestinal Gastrointestinal: normoactive bowel sounds - Neurologic Cranial nerve examination: PERRL, EOMI, VFF, V1/V2/V3 grossly intact, tongue midline, intact gag reflex, facial droop (Patient has mild facial asymmetry on the left.), normal palatal elevation Speech examination: intact Sensorimotor examination: intact Motor examination - right side: 4/5: biceps, triceps, wrist flexion, wrist extension, collar tailor, hip flexors, knee extensors, dorsiflexion, toe extension (EHL) , plantarflexion Motor examination - left side: 4/5: biceps, triceps, wrist flexion, wrist extension, collar tailor, hip flexors, knee extensors, dorsiflexion, toe extension (EHL) , plantarflexion Detailed sensory examination: intact Reflex and gait examination: intact Reflexes: 1+: ankle, bicep, knee, tricep - Musculoskeletal Musculoskeletal: no pain - Psychiatric Psychiatric: mood/affect appropriate, cooperative Results - Laboratory Findings CBC and BMP: 11/08/17 09:50 11/08/17 09:50 Abnormal Lab Findings: Abnormal Labs 11/08/17 11/08/17 11/08/17 09:43 09:50 09:50 RBC 3.45 L Hgb 9.7 L Hct 31.6 L MCHC 30.8 L RDW 19.5 H Creatinine 1.59 H Glucose 137 H POC Glucose (mg/dL) 146 H Assessment and Plan (1) TIA (transient ischemic attack) Current Visit: Yes Status: Acute Code(s): G45.9 - TRANSIENT CEREBRAL ISCHEMIC ATTACK, UNSPECIFIED SNOMED Code(s): 561474021 (2) Acute right arterial ischemic stroke, MCA (middle cerebral artery) Current Visit: No Status: Acute Code(s): I63.511 - CEREB INFRC D/T UNSP OCCLS OR STENOS OF RIGHT MID CEREB ART SNOMED Code(s): 509028140 (3) Hypertension Current Visit: No Status: Chronic Code(s): I10 - ESSENTIAL (PRIMARY) HYPERTENSION SNOMED Code(s): 28630270 (4) Left leg weakness Current Visit: No Status: Chronic Code(s): R29.898 - [facility] SYMPTOMS AND SIGNS INVOLVING THE MUSCULOSKELETAL SYSTEM SNOMED Code(s): 181441232 Plan: This patient is a 66-year-old male who was in his usual state of health until early this morning at about 9 AM. He was getting ready to go for physical therapy when he noticed weakness in his legs. He collapsed to the floor. His came to assist him and found that he was having difficulty with left leg weakness as well as left side facial droop. She brought him to the emergency room at [facility] for evaluation. He was seen in the ER by Dr. Helton at 9:30 AM. A code stroke was initiated and he was evaluated by the neuro interventionalist who did not recommend tPA for the patient. His computed tomography scan of the brain and CTA angiogram of the head and neck are as noted above. There was no obvious evidence for acute stroke or major arterial blockage. His clinical history suggests right hemispheric TIA. Patient is now back to baseline in terms of his motor exam functions. He is been able to ambulate and does not appreciate any weakness in his left leg. His facial droop also is significantly improved. We will continue the patient on aspirin therapy for treatment of his underlying history of previous strokes and stent placements to cerebral arteries. We would recommend a follow-up with the stroke specialists at [facility] as he has had recurrent TIAs in the last 6 months. We have reviewed all of the test results in detail today with the patient. He states he is feeling back to his baseline level of function. We will continue close neurological follow-up for the patient. He should continue with outpatient physical therapy. We will continue to monitor his progress closely during this admission. His overall prognosis at this time remains guarded. Time with Patient: Greater than 30
[2017-11-08] MEDS: FAMOTIDINE 20 MG TAB PO SCH (22:14)
[2017-11-08] MEDS: CLINDAMYCIN TOPICAL SCH (22:15)
[2017-11-09 06:59] LABS: Anion Gap 8 mmol/L; Blood Urea Nitrogen 18 mg/dL (9-20); Calcium 9.1 mg/dL (8.4-10.2); Carbon Dioxide 26 mmol/L (22-30); Chloride 105 mmol/L (98-107); Cholesterol 143 mg/dL (<200); Glucose 97 mg/dL (74-99); HDL Cholesterol 52 mg/dL (40-60); LDL Cholesterol,Calculated 78 mg/dL (0-99); Potassium 3.5 mmol/L (3.5-5.1); Sodium 139 mmol/L (137-145); Triglycerides 66 mg/dL (<150)
[2017-11-09] MEDS: BUDESONIDE 0.5 MG/2 ML NEBU INHALATION SCH (08:20)
[2017-11-09] MEDS ORDERED: ASPIRIN 325 MG TAB PO SCH (09:00)
[2017-11-09] MEDS ORDERED: ASPIRIN 81 MG PO SCH (09:00)
[2017-11-09] MEDS ORDERED: OXYBUTYNIN XL 5 MG TAB.ER.24 PO SCH (09:00)
[2017-11-09] MEDS ORDERED: SERTRALINE 25 MG TAB PO SCH (09:00)
[2017-11-09] MEDS ORDERED: amLODIPine 10 MG TAB PO SCH (09:00)
[2017-11-09] MEDS ORDERED: TAMSULOSIN 0.4 MG CAP.ER.24H PO SCH (09:00)
[2017-11-09] MEDS: FAMOTIDINE 20 MG TAB PO SCH (09:59)
[2017-11-09] MEDS: ENOXAPARIN 40 MG/0.4 ML SYRINGE SQ SCH (10:00)
[2017-11-09] MEDS: IPRATROPIUM-ALBUTEROL 3 ML NEB INHALATION SCH (11:45)
--- NOTE | 2017-11-09 13:29 | DS ---
DISCHARGE SUMMARY DATE OF ADMISSION: 11/08/2017 DATE OF DISCHARGE: 11/09/2017 FINAL DIAGNOSES: 1. Possible transient ischemic attack in a patient with multiple strokes in the past. 2. History of angioplasty due to severe M2 origin stenosis with residual 50% stenosis at [facility]. 3. Essential hypertension. 4. Hyperlipidemia. 5. Primary osteoarthritis of multiple joints bilaterally. 6. Chronic obstructive pulmonary disease in an ex-smoker. 7. Chronic gait dysfunction, uses a cane. HOSPITAL COURSE: The patient with multiple TIAs and strokes in the past with prior intervention as above at [facility], presents with some left leg weakness, very short-lived, that resolved. Neurological exam was unremarkable. CT scan of the brain was unremarkable. Seen by Dr. George Mcghee. PHYSICAL EXAMINATION: Lungs are clear. No new neuro deficits. CONSULTATION: Dr. George Mcghee from Neurology. DISCHARGE MEDICATIONS: 1. Aspirin 81 mg daily. 2. Lipitor 80 mg q.h.s. 3. Vitamin D3 one thousand units p.o. daily. 4. Bevespi 1 puff b.i.d. 5. DuoNeb b.i.d. 6. Flomax 0.4 mg a day. 7. Norvasc 10 mg p.o. daily. 8. Iron 325 p.o. daily. 9. Zantac 150 mg p.o. b.i.d. 10.Cleocin topical b.i.d. 11.Hydrocortisone 2.5% 1 topical b.i.d. 12.Nizoral topical Sunday, . 13.Zoloft 25 mg a day. 14.Detrol LA 4 mg a day. 15.Pulmicort 0.5 mg b.i.d. DISPOSITION: Home. Follow up with Dr. Luke in 1 week. MMODL / IJN: [id number] /
[2017-11-09 16:20] VITALS: TEMP 97.5
[2017-11-09 16:21] VITALS: BP 119/67; PULSE 76; RESP 16
[2017-11-09] MEDS: CLINDAMYCIN TOPICAL SCH (16:57)
== END 2017-11-09 16:17 | disposition home or self-care (01) ==
LOC: EC 09:30 → 6SEL 12:38
PROVIDERS: ADMIT Hospitalist; ATTEND Hospitalist
DX: R29.810 Facial weakness (principal); E78.5 Hyperlipidemia, unspecified; R26.9 Unspecified abnormalities of gait and mobility; J44.9 Chronic obstructive pulmonary disease, unspecified; K21.9 Gastro-esophageal reflux disease without esophagitis; G47.30 Sleep apnea, unspecified; I69.392 Facial weakness following cerebral infarction; I69.354 Hemiplegia and hemiparesis following cerebral infarction affecting left non-dominant side; M81.0 Age-related osteoporosis without current pathological fracture; M15.9 Polyosteoarthritis, unspecified; I12.9 Hypertensive chronic kidney disease with stage 1 through stage 4 chronic kidney disease, or unspecified chronic kidney disease; N18.2 Chronic kidney disease, stage 2 (mild); Z87.891 Personal history of nicotine dependence; Z79.82 Long term (current) use of aspirin; Z79.899 Other long term (current) drug therapy; Z79.51 Long term (current) use of inhaled steroids; Z99.89 Dependence on other enabling machines and devices; Z87.11 Personal history of peptic ulcer disease; Z87.440 Personal history of urinary (tract) infections; Z86.19 Personal history of other infectious and parasitic diseases; Z83.3 Family history of diabetes mellitus; Z82.49 Family history of ischemic heart disease and other diseases of the circulatory system; Z96.651 Presence of right artificial knee joint; N40.0 Benign prostatic hyperplasia without lower urinary tract symptoms
CPT/HCPCS: 96372 ×2; 99285; 36415; 94640 ×2; 94760; 93005; 97162; 97166; 92610; 80061; 80053; 80048; 82550; 82553; 84484; 85025; 85610; 85730; 71046; 70496; 70450; 70498; G0378 ×2; Q9967; J1650 ×2

== ENCOUNTER 2017-11-21 20:33 | Observation (INO) | payer MEDICARE, BC ==
[2017-11-21 20:50] LABS: Glucose,Whole Blood 120 mg/dL (75-99)
--- NOTE | 2017-11-21 20:56 | ED ---
General Adult HPI - General Chief complaint: Dizziness Stated complaint: POSS TIA Time Seen by Provider: 11/21/17 20:40 Source: patient, RN notes reviewed Mode of arrival: EMS Limitations: no limitations - History of Present Illness Initial comments: This is a 66-year-old male who presents emergency Department complaining of symptoms similar to his previous TIA a week ago. Patient states became very dizzy and started having twitching of his left leg. Patient states the dizziness is subsided but the twitching occasionally as occurring still. Patient denies any focal weakness or numbness. Patient denies any visual disturbance or speech disturbance. Patient denies any palpitations chest pain difficulty breathing or shortness of breath. Patient denies abdominal pain patient denies nausea vomiting or diarrhea. Patient denies any headache. Patient denies any back pain patient denies any lower extremity edema or calf tenderness. - Related Data Home Medications Medication Instructions Recorded Confirmed Aspirin EC [Ecotrin Low Dose] 81 mg PO QAM 05/26/17 11/21/17 Atorvastatin [Lipitor] 80 mg PO HS 05/26/17 11/21/17 Cholecalciferol [Vitamin D3] 1,000 unit PO QAM 05/26/17 11/21/17 Glycopyrrolate/Formoterol Fum 1 puff INHALATION RT-BID 05/26/17 11/21/17 [Bevespi Aerosphere Inhaler] Ipratropium-Albuterol Nebulize 3 ml INHALATION RT-BID 05/26/17 11/21/17 [Duoneb 0.5 mg-3 mg/3 ml Soln] Tamsulosin HCl [Flomax] 0.4 mg PO QAM 05/26/17 11/21/17 amLODIPine [Norvasc] 10 mg PO QAM 05/26/17 11/21/17 Ferrous Sulfate [Feosol] 325 mg PO DAILY 06/29/17 11/21/17 Ranitidine HCl [Zantac] 150 mg PO BID 07/13/17 11/21/17 Clindamycin Topical Soln 1 applic TOPICAL BID 08/28/17 11/21/17 [Cleocin-T Topical Soln] Hydrocortisone Cream 1 applic TOPICAL BID 08/28/17 11/21/17 [Hydrocortisone 2.5% Cream] Ketoconazole 2% Shampoo [Nizoral] 1 applic TOPICAL MOTH 08/28/17 11/21/17 Sertraline [Zoloft] 25 mg PO DAILY 08/28/17 11/21/17 Tolterodine Tartrate [Detrol LA] 4 mg PO DAILY 08/28/17 11/21/17 Budesonide [Pulmicort] 0.5 mg INHALATION RT-BID 11/08/17 11/21/17 Mupirocin 2% Oint [Bactroban 2% 1 applic TOPICAL BID 11/21/17 11/21/17 Oint] Sulfamethox-Tmp 800-160Mg [Bactrim 1 tab PO BID 11/21/17 11/21/17 DS 800-160 mg] Allergies Allergy/AdvReac Type Severity Reaction Status Date / Time No Known Allergies Allergy Verified 11/21/17 21:06 Review of Systems ROS Statement: Those systems with pertinent positive or pertinent negative responses have been documented in the HPI. ROS Other: All systems not noted in ROS Statement are negative. Past Medical History Past Medical History: COPD, CVA/TIA, GERD/Reflux, Hyperlipidemia, Hypertension, Musculoskeletal Disorder, Prostate Disorder, Renal Disease, Sleep Apnea/CPAP/ BIPAP Additional Past Medical History / Comment(s): pt has minimal L sided weaknes/ facial droop, TIAs, past gastric ulcer, chronic renal disease stage II, ROSA ( waiting for Cpap machine), past R foot 3rd toe osteomyelitis, arthritis multiple joints, R eye cataract, UTI, BPH. History of Any Multi-Drug Resistant Organisms: None Reported Past Surgical History: Hernia Repair, Joint Replacement, Orthopedic Surgery Additional Past Surgical History / Comment(s): RT TOTAL KNEE,past peg tube- since removed. intracranial angioplasty at [facility] on 06/01/2017, colonoscopies. Past Anesthesia/Blood Transfusion Reactions: No Reported Reaction Past Psychological History: No Psychological Hx Reported Smoking Status: Former smoker Past Alcohol Use History: None Reported Past Drug Use History: None Reported - Past Family History Mother Family Medical History: CVA/TIA, Diabetes Mellitus, Hyperlipidemia, Hypertension Father Family Medical History: CVA/TIA, Hypertension General Exam - General Exam Comments Initial Comments: GENERAL: Patient is well-developed and well-nourished. Patient is nontoxic and well- hydrated and is in mild distress. ENT: Neck is soft and supple. No significant lymphadenopathy is noted. Oropharynx is clear. Moist mucous membranes. Neck has full range of motion without eliciting any pain. EYES: The sclera were anicteric and conjunctiva were pink and moist. Extraocular movements were intact and pupils were equal round and reactive to light. Eyelids were unremarkable. PULMONARY: Unlabored respirations. Good breath sounds bilaterally. No audible rales rhonchi or wheezing was noted. CARDIOVASCULAR: There is a regular rate and rhythm without any murmurs gallops or rubs. ABDOMEN: Soft and nontender with normal bowel sounds. No palpable organomegaly was noted. There is no palpable pulsatile mass. SKIN: Skin is clear with no lesions or rashes and otherwise unremarkable. NEUROLOGIC: Patient is alert and oriented x3. Cranial nerves II through XII are grossly intact. Motor and sensory are also intact. Normal speech, volume and content. Symmetrical smile. MUSCULOSKELETAL: Normal extremities with adequate strength and full range of motion. No lower extremity swelling or edema. No calf tenderness. LYMPHATICS: No significant lymphadenopathy is noted PSYCHIATRIC: Normal psychiatric evaluation. Normal interpersonal interactions appears functionally intact in deals appropriately with others. No signs of depression. No signs of anxiety. Limitations: no limitations Course Vital Signs 11/21/17 11/21/17 20:47 22:25 Temperature 99.4 F Pulse Rate 68 60 Respiratory 18 18 Rate Blood Pressure 170/81 145/76 O2 Sat by Pulse 99 100 Oximetry Medical Decision Making - Medical Decision Making EKG shows a junctional rhythm at 67 bpm IN interval is not seeing QRSs 80 QT interval 386 QTC is 407. Patient's EKG shows no ST segment elevation or depression or T wave abnormalities are noted. CT of the brain shows no acute abnormality. Chest x-ray shows no acute abnormality. I reviewed the patient's previous admission sounds is though the symptoms are similar and they were calling that a TIA so I decided to admit the patient to follow-up with the neurologist I spoke with Dr. Church and he agreed to admit the patient. The wrote admitting orders - Lab Data Result diagrams: 11/21/17 20:55 11/21/17 20:55 Lab Results 11/21/17 11/21/17 11/21/17 Range/Units 20:47 20:55 20:55 WBC 5.4 (3.8-10.6) k/uL RBC 3.29 L (4.30-5.90) m/uL Hgb 9.3 L (13.0-17.5) gm/dL Hct 29.9 L (39.0-53.0) % MCV 90.8 (80.0-100.0) fL MCH 28.2 (25.0-35.0) pg MCHC 31.0 (31.0-37.0) g/dL RDW 19.9 H (11.5-15.5) % Plt Count 246 (150-450) k/uL Neutrophils % 39 % Lymphocytes % 48 % Monocytes % 7 % Eosinophils % 2 % Basophils % 1 % Neutrophils # 2.1 (1.3-7.7) k/uL Lymphocytes # 2.6 (1.0-4.8) k/uL Monocytes # 0.4 (0-1.0) k/uL Eosinophils # 0.1 (0-0.7) k/uL Basophils # 0.0 (0-0.2) k/uL Hypochromasia Slight Anisocytosis Slight PT (9.0-12.0) sec INR (<1.2) APTT (22.0-30.0) sec Sodium (137-145) mmol/L Potassium (3.5-5.1) mmol/L Chloride (98-107) mmol/L Carbon Dioxide (22-30) mmol/L Anion Gap mmol/L BUN (9-20) mg/dL Creatinine (0.66-1.25) mg/dL Est GFR (MDRD) Af Amer (>60 ml/min/1.73 sqM) Est GFR (MDRD) Non-Af (>60 ml/min/1.73 sqM) Glucose (74-99) mg/dL POC Glucose (mg/dL) 120 H (75-99) mg/dL POC Glu Weight Guesser ID Storm, Diamond Calcium (8.4-10.2) mg/dL Total Bilirubin (0.2-1.3) mg/dL AST (17-59) U/L ALT (21-72) U/L Alkaline Phosphatase (38-126) U/L Total Creatine Kinase 103 (55-170) U/L CK-MB (CK-2) 0.8 (0.0-2.4) ng/mL CK-MB (CK-2) Rel Index 0.8 Troponin I <0.012 (0.000-0.034) ng/mL Total Protein (6.3-8.2) g/dL Albumin (3.5-5.0) g/dL 11/21/17 11/21/17 Range/Units 20:55 20:55 WBC (3.8-10.6) k/uL RBC (4.30-5.90) m/uL Hgb (13.0-17.5) gm/dL Hct (39.0-53.0) % MCV (80.0-100.0) fL MCH (25.0-35.0) pg MCHC (31.0-37.0) g/dL RDW (11.5-15.5) % Plt Count (150-450) k/uL Neutrophils % % Lymphocytes % % Monocytes % % Eosinophils % % Basophils % % Neutrophils # (1.3-7.7) k/uL Lymphocytes # (1.0-4.8) k/uL Monocytes # (0-1.0) k/uL Eosinophils # (0-0.7) k/uL Basophils # (0-0.2) k/uL Hypochromasia Anisocytosis PT 9.9 (9.0-12.0) sec INR 1.0 (<1.2) APTT 26.3 (22.0-30.0) sec Sodium 139 (137-145) mmol/L Potassium 4.2 (3.5-5.1) mmol/L Chloride 105 (98-107) mmol/L Carbon Dioxide 25 (22-30) mmol/L Anion Gap 9 mmol/L BUN 28 H (9-20) mg/dL Creatinine 1.73 H (0.66-1.25) mg/dL Est GFR (MDRD) Af Amer 48 (>60 ml/min/1.73 sqM) Est GFR (MDRD) Non-Af 40 (>60 ml/min/1.73 sqM) Glucose 113 H (74-99) mg/dL POC Glucose (mg/dL) (75-99) mg/dL POC Glu Weight Guesser ID Calcium 9.6 (8.4-10.2) mg/dL Total Bilirubin 0.1 L (0.2-1.3) mg/dL AST 22 (17-59) U/L ALT 38 (21-72) U/L Alkaline Phosphatase 101 (38-126) U/L Total Creatine Kinase (55-170) U/L CK-MB (CK-2) (0.0-2.4) ng/mL CK-MB (CK-2) Rel Index Troponin I (0.000-0.034) ng/mL Total Protein 6.7 (6.3-8.2) g/dL Albumin 3.8 (3.5-5.0) g/dL Disposition Clinical Impression: Transient cerebral ischemia Disposition: ADMITTED IP TO THIS HOSP Referrals: Rick Luke MD [Primary Care Provider] - 1-2 days Time of Disposition: 22:41
[2017-11-21 21:15] LABS: Anisocytosis Slight; Basophils % (A) 1 %; Eosinophils # (A) 0.1 k/uL (0-0.7); Eosinophils % (A) 2 %; HCT 29.9 % (39.0-53.0); HGB 9.3 gm/dL (13.0-17.5); Hypochromasia Slight; Lymphocytes # (A) 2.6 k/uL (1.0-4.8); Lymphocytes % (A) 48 %; MCH 28.2 pg (25.0-35.0); MCV 90.8 fL (80.0-100.0); Mean Platelet Volume 7.5; Monocytes # (A) 0.4 k/uL (0-1.0); Monocytes % (A) 7 %; Neutrophils # (A) 2.1 k/uL (1.3-7.7); Neutrophils % (A) 39 %; Platelet Count 246 k/uL (150-450); RBC 3.29 m/uL (4.30-5.90); RDW 19.9 % (11.5-15.5); WBC 5.4 k/uL (3.8-10.6)
[2017-11-21 21:17] LABS: Albumin 3.8 g/dL (3.5-5.0); Calcium 9.6 mg/dL (8.4-10.2); Potassium 4.2 mmol/L (3.5-5.1); Total Bilirubin 0.1 mg/dL (0.2-1.3); Total Protein 6.7 g/dL (6.3-8.2)
[2017-11-21 21:19] LABS: Partial Thromboplastin Time 26.3 sec (22.0-30.0); Prothrombin Time 9.9 sec (9.0-12.0)
[2017-11-21 21:31] LABS: Creatine Kinase 103 U/L (55-170)
[2017-11-21 21:45] LABS: Creatine Kinase MB 0.8 ng/mL (0.0-2.4); Troponin I <0.012 ng/mL (0.000-0.034)
--- NOTE | 2017-11-21 21:49 | XR ---
EXAMINATION: XR chest 2V - 2 lateral chest radiographs DATE AND TIME: 11/21/2017 9:06 PM ORDERING PROVIDER: Oni Joseph MD CLINICAL INDICATION: altered mental status TECHNIQUE: 2 lateral chest radiographs were obtained. COMPARISON: 11/08/2017 DESCRIPTION: On these 2 lateral views there is redemonstration of the prominent tortuosity of the thoracic aorta, and the cardiac silhouette appears borderline enlarged. The lungs and pleural spaces appear negative on these lateral views. Bones and soft tissues are unremarkable on the 2 lateral views. IMPRESSION: 2 LATERAL VIEWS WERE OBTAINED.
--- NOTE | 2017-11-21 21:53 | CT ---
EXAMINATION: CT brain wo con DATE AND TIME: 11/21/2017 9:16 PM ORDERING PROVIDER: Oni Joseph MD CLINICAL INDICATION: Pain TECHNIQUE: Standard departmental protocol. DLP 1121 mGy-cm. COMPARISON: 11/08/2017 DESCRIPTION: The calvarium is intact. There is no intracranial hemorrhage. There is no mass or mass e ffect. There is no definite new attenuation defect. The previously seen tipton radiata and centrum se miovale low attenuation is redemonstrated without interval change. Remainder of the intra-axial and extra-axial compartment examination is unremarkable. The paranasal s inuses, middle ear cavities, and mastoid sinus air cells are clear. The orbits are intact. IMPRESSION: NO ACUTE PROCESS.
[2017-11-22 01:14] VITALS: BMI 21.1
[2017-11-22 07:18] LABS: Cholesterol 153 mg/dL (<200); HDL Cholesterol 59 mg/dL (40-60); LDL Cholesterol,Calculated 88 mg/dL (0-99); Triglycerides 32 mg/dL (<150)
[2017-11-22] MEDS: SODIUM CHLORIDE 0.9% 1,000 ML IV SCH ×2 (10:53→19:41)
[2017-11-22] MEDS: FERROUS SULFATE 325 MG TAB PO SCH (10:53)
[2017-11-22] MEDS: TAMSULOSIN 0.4 MG CAP.ER.24H PO SCH ×2 (10:53→11:00)
[2017-11-22] MEDS: SERTRALINE 25 MG TAB PO SCH (10:54)
[2017-11-22] MEDS: IPRATROPIUM-ALBUTEROL 3 ML NEB INHALATION SCH ×2 (15:02→20:19)
[2017-11-22] MEDS ORDERED: KETOCONAZOLE 2% SHAMPOO 1 APPLIC/ML TOPICAL SCH (18:00)
--- NOTE | 2017-11-22 19:48 | HP ---
HISTORY AND PHYSICAL DATE OF SERVICE: 11/22/2017 CHIEF COMPLAINT: Dizziness. BRIEF HISTORY: Patient is a 66-year-old male with a past medical history of hypertension, hyperlipidemia, history of COPD, prior CVA, TIA, who presents to the emergency department with a complaint of dizziness, but according to patient, it started earlier in the day as twitching of his left leg. Over the day it got progressively worse. The patient related that dizziness subsided but twitching has continued. He did not have any focal weakness or numbness, though. There were no visual or speech disturbances. The patient related that he had similar TIA symptoms about a week ago. PAST MEDICAL HISTORY: 1. History of COPD. 2. CVA/TIA. 3. Gastroesophageal reflux disease. 4. Hyperlipidemia. 5. Hypertension. 6. History of obstructive sleep apnea. 7. Chronic kidney disease. 8. History of right third toe osteomyelitis. 9. History of degenerative joint disease. 10.History of BPH. PAST SURGICAL HISTORY: 1. Hernia repair. 2. Right total knee replacement. 3. Past history of PEG tube placement and removal. 4. Intracranial angioplasty at [facility]. 5. Colonoscopies in the past. FAMILY HISTORY: Significant for CVA/TIA, diabetes, hypertension, hyperlipidemia in mother and history of CVA/TIA and hypertension in father. ALLERGIES: He has NO KNOWN DRUG ALLERGIES. CURRENT MEDICATIONS: 1. Trimethoprim sulfa 1 p.o. b.i.d. 2. Bactroban 2% ointment topically b.i.d. 3. Pulmicort inhaler twice daily. 4. Detrol LA 4 mg p.o. daily. 5. Zoloft 25 mg p.o. daily. 6. Nizoral shampoo topical application monthly. 7. Hydrocortisone 2.5% cream topically b.i.d. 8. Clindamycin topical solution b.i.d. 9. Zantac 150 mg p.o. b.i.d. 10.Iron sulfate 325 mg p.o. b.i.d. 11.Norvasc 10 mg p.o. daily. 12.Flomax 0.4 mg p.o. each morning. 13.Aspirin 81 mg each morning. 14.Lipitor 80 mg p.o. at bedtime. 15.Vitamin D3 1000 units daily. 16.Bevespi Aerosphere inhaler 1 inhalation b.i.d. REVIEW OF SYSTEMS: CONSTITUTIONAL: Patient denies any fever or chills. HEENT: No vision or hearing loss. RESPIRATORY: Patient has no shortness of breath or wheezing. CARDIOVASCULAR: No chest pain or palpitations. GI: No nausea, vomiting or diarrhea. GENITOURINARY: Denies hematuria or dysuria. NEUROLOGICAL: As per HPI. MUSCULOSKELETAL: Patient denies any joint or muscle deformities. HEMATOLOGY: Patient denies ecchymosis or bleeding disorders. ENDOCRINE: Denies polyuria, polydipsia. SKIN: Denies any pigmentation or rashes. LYMPHATICS: Denies any lymph node enlargement. Rest of 14-point review of system is unremarkable. PHYSICAL EXAMINATION: Patient is awake, alert, oriented x3. He is in no acute distress. VITAL SIGNS: Temperature of 97.5, pulse 61, respiration 18, blood pressure 148/81, oxygen saturation 100% on 2 L. HEENT: Atraumatic, normocephalic. Pupils equal and reactive to light. Extraocular movements intact. Buccal mucosa is fair. NECK: Supple without any goiter or lymphadenopathy. JVD is negative. No carotid bruit heard. RESPIRATORY: Lungs are clear to auscultate. No rales, rhonchi, wheezes. CARDIOVASCULAR: Heart is regular rate and rhythm without any murmurs or gallop rhythm. ABDOMEN/GI: Abdomen is soft, nontender, nondistended. No organomegaly. Bowel sounds are positive. EXTREMITIES: No edema, clubbing or cyanosis. Pulses are palpable. SKIN: Skin is warm, dry and intact. NEUROLOGICAL: Patient is awake, alert, oriented x3. He has no gross motor or sensory deficit. Cranial nerves 2-12 grossly intact. LYMPHATICS: Patient has no lymphadenopathy. MUSCULOSKELETAL: Patient has good range of motion, all 4 extremities. No swelling or deformity of any joints. PSYCHIATRIC EVALUATION: Patient has appropriate mood and affect. LABS: Labs and x-rays done on admission show EKG with a junctional rhythm with 67 beats per minute, no ST or T-wave changes. CT of the head was negative for any acute abnormality. Chest x-ray is negative. CBC shows white blood count of 5.4, hemoglobin 9.3, hematocrit 29.9, and platelet count of 246. Chemical profile shows sodium 139, potassium 4.2, chloride 105, bicarb 25, BUN 28, creatinine 1.73, glucose 113. ASSESSMENT: 1. Transient ischemic attack versus cerebrovascular accident. 2. Acute on chronic renal injury. 3. Uncontrolled hypertension. 4. Anemia, possibly chronic. 5. Increased frequency of urination; possible urinary tract infection. 6. Hypertension. 7. Hyperlipidemia. 8. Obstructive sleep apnea. 9. History of cerebrovascular accident versus transient ischemic attack. PLAN: Admit to telemetry. Monitor neuro checks. Consult Neurology for further recommendations. Will monitor blood pressure closely and adjust medications if it remains elevated. Family is concerned about possible UTI. Will order urine culture and treat if needed. Will resume home medications and monitor strict I&O, monitor renal function and electrolytes and monitor daily weights. Further recommendations to follow. MMODL / IJN: [id number] /
[2017-11-22] MEDS: BUDESONIDE 0.5 MG/2 ML NEBU INHALATION SCH (20:19)
[2017-11-22] MEDS: GLYCOPYRROLATE INHALATION SCH (20:24)
[2017-11-22] MEDS: FORMOTEROL FUM INHALATION SCH (20:24)
[2017-11-22] MEDS: HYDROCORTISONE 1% CREAM 30 GM TUBE TOPICAL SCH (20:32)
[2017-11-22] MEDS: MUPIROCIN 2% OINT 22 GM TUBE TOPICAL SCH (20:32)
[2017-11-22] MEDS: CLINDAMYCIN TOPICAL SCH (20:32)
[2017-11-22] MEDS: ATORVASTATIN 80 MG TAB PO SCH (20:36)
[2017-11-22] MEDS ORDERED: FAMOTIDINE 20 MG TAB PO SCH (21:00)
[2017-11-23] MEDS: SODIUM CHLORIDE 0.9% 1,000 ML IV SCH ×4 (04:10→19:52)
[2017-11-23 06:24] LABS: Anisocytosis Slight; Basophils % (A) 1 %; Eosinophils # (A) 0.1 k/uL (0-0.7); Eosinophils % (A) 3 %; HCT 28.8 % (39.0-53.0); Hypochromasia Slight; Lymphocytes # (A) 2.2 k/uL (1.0-4.8); Lymphocytes % (A) 41 %; MCH 28.9 pg (25.0-35.0); MCHC 31.3 g/dL (31.0-37.0); MCV 92.2 fL (80.0-100.0); Mean Platelet Volume 7.9; Monocytes # (A) 0.3 k/uL (0-1.0); Monocytes % (A) 6 %; Neutrophils # (A) 2.5 k/uL (1.3-7.7); Neutrophils % (A) 48 %; Platelet Count 231 k/uL (150-450); RBC 3.13 m/uL (4.30-5.90); RDW 19.7 % (11.5-15.5); WBC 5.3 k/uL (3.8-10.6)
[2017-11-23 06:42] LABS: Anion Gap 9 mmol/L; Blood Urea Nitrogen 17 mg/dL (9-20); Calcium 9.3 mg/dL (8.4-10.2); Carbon Dioxide 25 mmol/L (22-30); Chloride 105 mmol/L (98-107); Glucose 93 mg/dL (74-99); Potassium 3.8 mmol/L (3.5-5.1); Sodium 139 mmol/L (137-145)
[2017-11-23] MEDS: IPRATROPIUM-ALBUTEROL 3 ML NEB INHALATION SCH ×2 (07:10→19:18)
[2017-11-23] MEDS: BUDESONIDE 0.5 MG/2 ML NEBU INHALATION SCH ×2 (07:10→19:18)
[2017-11-23] MEDS: FORMOTEROL FUM INHALATION SCH ×2 (07:22→19:26)
[2017-11-23] MEDS: GLYCOPYRROLATE INHALATION SCH ×2 (07:22→19:26)
--- NOTE | 2017-11-23 07:58 | CONS ---
CONSULTATION DATE OF CONSULTATION: 11/22/2017. CHIEF COMPLAINT: Transient ischemic attack. HISTORY OF PRESENT ILLNESS: Mr. Sesay is a pleasant 66-year-old -[place] male who is being evaluated by the neurology service per the request of Dr. Church for a transient ischemic attack. The patient was brought into [facility] Emergency Room after he had a sudden onset of dizziness and left lower extremity weakness. He states that he was unable to bear weight on his left lower extremity. He described dizziness as an off-balance sensation. He also felt very foggy and confused during the episode. These neurological symptoms lasted 5-10 minutes and resolved spontaneously. The patient does have a previous history of transient ischemic attack. He is currently on aspirin 81 mg daily at home. In the emergency room, a CT scan of the brain was done, which was normal. His CBC showed anemia with a hemoglobin of 9.3 and hematocrit of 29%. His comprehensive metabolic profile showed renal insufficiency with a BUN of 28 and creatinine of 1.73. He was started on IV hydration. His cardiac enzymes and fasting lipid panel were reviewed and they were normal. The patient is on Lipitor at home. At the time of my evaluation, the patient is lying in his bed and appears to be in no acute distress. He denies any recurrence of any neurological symptoms since his admission. He does have chronic gait instability and does use a walker at home. PAST MEDICAL HISTORY: Dyslipidemia, chronic obstructive pulmonary disease, history of transient ischemic attack, gastroesophageal reflux disease, hypertension, prostate disorder, chronic renal insufficiency, sleep apnea, history of peptic ulcer disease, previous history of osteomyelitis, arthritis, benign prostatic hypertrophy, history of hernia repair, joint replacement surgery, history of PEG tube placement and reversal. SOCIAL HISTORY: The patient is a former smoker. He denies any alcohol or drug use. FAMILY HISTORY: Positive for hypertension, diabetes, dyslipidemia, and strokes. HOME MEDICATIONS: Reviewed in the chart. ALLERGIES: No known drug allergies. REVIEW OF SYSTEMS: CONSTITUTIONAL: Positive for fatigue. EYES: Negative. ENT: Negative. CARDIOVASCULAR: Negative. RESPIRATORY: Positive for occasional shortness of breath. NEUROLOGICAL: As mentioned above. GASTROINTESTINAL: Positive for occasional heartburn. GENITOURINARY: Positive for benign prostatic hypertrophy. PSYCHIATRIC: Negative. DERMATOLOGICAL: Negative. ENDOCRINE: Negative. PHYSICAL EXAM: Vital signs show a temperature of 97.5, pulse 67, respiration 18, blood pressure 136/72. GENERAL APPEARANCE: The patient is a well-developed, elderly -[place] male who appears to be in no acute distress. HEENT: Normocephalic, atraumatic, slight left facial droop is seen. NECK: Supple with no masses felt. CARDIOVASCULAR: Regular rate and rhythm. ABDOMEN: Nontender, nondistended. Extremities showed slight edema with no clubbing seen. Neurological exam: The patient is awake and oriented to person and place. He could not recall the year. Speech and language are normal. Strength is 4+ out of 5 on the left side and 5- out of 5 on the right side. Sensory exam showed diminished light touch sensation in bilateral distal lower extremities. Cranial nerve testing showed slight left facial droop. No tremors or seizure-like activity is seen. IMPRESSION: 1. Transient ischemic attack. 2. Dizziness, resolved. 3. Worsening left lower extremity weakness, resolved. 4. History of chronic left hemiparesis. 5. Chronic gait instability. 6. Renal insufficiency. 7. Dehydration. 8. Anemia. RECOMMENDATION: The patient does appear to have suffered a transient ischemic attack with a transient episode of disequilibrium and left lower extremity weakness. He believes he was also confused during the episode. The patient is already on aspirin at home. I will switch his aspirin to Plavix 75 mg daily. I did review his fasting lipid panel, which was normal on Lipitor. I will order a serum homocystine level, and EEG. Physical Therapy will be consulted for his chronic gait instability. Continue IV hydration as tolerated. He is scheduled for a repeat renal function test in the morning. Continue neuro checks. I will continue to follow with you. Further recommendations to follow. Thank you for allowing me to participate in the care of your patient. If you have any questions, please feel free to contact me. MMODL / IJN: [id number] /
[2017-11-23] MEDS: CHOLECALCIFEROL 1,000 UNIT TAB PO SCH (08:38)
[2017-11-23] MEDS: CLINDAMYCIN TOPICAL SCH ×2 (08:38→19:52)
[2017-11-23] MEDS: MUPIROCIN 2% OINT 22 GM TUBE TOPICAL SCH ×2 (08:39→19:51)
[2017-11-23] MEDS: CLOPIDOGREL 75 MG TAB PO SCH (08:39)
[2017-11-23] MEDS: HYDROCORTISONE 1% CREAM 30 GM TUBE TOPICAL SCH ×2 (08:39→19:51)
[2017-11-23] MEDS: FERROUS SULFATE 325 MG TAB PO SCH (08:39)
[2017-11-23] MEDS: SERTRALINE 25 MG TAB PO SCH (08:40)
[2017-11-23] MEDS ORDERED: FAMOTIDINE 20 MG TAB PO SCH (09:00)
[2017-11-23] MEDS ORDERED: amLODIPine 10 MG TAB PO SCH (09:00)
[2017-11-23] MEDS ORDERED: ASPIRIN 81 MG PO SCH (09:00)
--- NOTE | 2017-11-23 15:09 | EEG ---
ELECTROENCEPHALOGRAM REPORT DATE OF SERVICE: 11/23/2017 REASON FOR TESTING: Transient ischemic attack. DESCRIPTION OF THE PROCEDURE: This EEG was performed using a 21 channel digital electroencephalograph, following international 10-20 system. DESCRIPTION OF THE RECORDING: From the beginning of the tracing, and with the patient's eyes closed, the background rhythm was mostly consisting of 7 Hz theta frequency in the posterior occipital lead. No obvious asymmetry is seen. Frequent movement and muscle artifacts are seen. Photic stimulation was performed with a minimal driving response seen. No pathological waves were elicited. Hyperventilation was not performed. More movement artifacts are seen later in the tracing. The patient remains awake throughout the tracing. No epileptiform discharges were seen. His EKG lead showed a regular rate and rhythm. INTERPRETATION: This awake EEG is abnormal due to presence of generalized slowing of the background rhythm, mostly in the theta range. This is consistent with mild encephalopathy. No epileptiform discharges were seen. The absence of epileptiform discharges does not rule out the diagnosis of epilepsy, therefore clinical correlation is recommended. JORDY / MYLENE: [id number] /
[2017-11-23] MEDS: ATORVASTATIN 80 MG TAB PO SCH (19:51)
[2017-11-23] MEDS: FAMOTIDINE 20 MG TAB PO SCH (19:51)
--- NOTE | 2017-11-23 21:25 | PN ---
PROGRESS NOTE DATE OF SERVICE: 11/23/2017 Patient is sitting at the bedside, voices no complaints, claims he is feeling much better today. HIS VITAL SIGNS: Temperature of 98.3, pulse 91, respiration 18, blood pressure 158/78, oxygen saturation 97%. CONSTITUTIONAL: Patient is awake, alert and oriented, asking appropriate questions. HEENT: Atraumatic, normocephalic. Pupils equal and reactive to light. Extraocular movements intact. Buccal mucosa is fair. NECK: Neck is supple. No goiter or lymphadenopathy. JVD is negative. No carotid bruit heard. RESPIRATORY: Lungs are clear to auscultate. No rales, rhonchi or wheezes. CARDIOVASCULAR: Heart is regular rate and rhythm without any murmurs or gallop rhythm. ABDOMEN/GI: Abdomen is soft, nontender, nondistended. No organomegaly. Bowel sounds are positive. EXTREMITIES: Patient has trace edema in both lower extremities and pulses are palpable. NEUROLOGICAL EXAMINATION: Patient is awake, alert and oriented to place and person. Muscle strength 4/5 on the left side. No deficit on the right. LABS: CBC with white blood count of 5.3, hemoglobin 9.2, hematocrit 28.8 and platelet count of 231. Chemical profile shows sodium 139, potassium 3.8, chloride 105, bicarb 25, BUN of 17, creatinine 1.3. Homocysteine of 18.67. Urine culture is in progress. ASSESSMENT: 1. Transient ischemic attack. 2. Acute on chronic renal injury. 3. Uncontrolled hypertension. 4. Anemia which is chronic, according to sister. 5. Possible urinary tract infection. 6. Hypertension. 7. Hyperlipidemia. 8. Dizziness, clinically resolved. Patient is seen by Neurology and is recommended to have EEG and symptom complex is consistent with TIA. Patient is also recommended to stop aspirin and start taking Plavix in the place 75 mg daily. The patient's lipid panel is fair. Neurology recommending to continue same dose of Lipitor. Physical Therapy has been consulted for gait instability. Will continue with IV fluid hydration. Monitor renal function and electrolytes. Monitor I&O closely. The patient's urine culture is still pending. Will treat accordingly if needed. According to sister, patient does have anemia with a baseline hemoglobin of 9.3. Will continue to monitor. Possible discharge in next 24 hours. MMODL / IJN: [id number] /
[2017-11-24] MEDS: SODIUM CHLORIDE 0.9% 1,000 ML IV SCH (05:06)
[2017-11-24 06:27] LABS: Anisocytosis Slight; Basophils % (A) 1 %; Eosinophils # (A) 0.2 k/uL (0-0.7); Eosinophils % (A) 3 %; HCT 29.8 % (39.0-53.0); HGB 9.2 gm/dL (13.0-17.5); Hypochromasia Slight; Lymphocytes # (A) 2.2 k/uL (1.0-4.8); Lymphocytes % (A) 44 %; MCH 28.7 pg (25.0-35.0); MCHC 30.9 g/dL (31.0-37.0); MCV 92.8 fL (80.0-100.0); Monocytes # (A) 0.3 k/uL (0-1.0); Monocytes % (A) 7 %; Neutrophils # (A) 2.1 k/uL (1.3-7.7); Neutrophils % (A) 42 %; Platelet Count 236 k/uL (150-450); RBC 3.21 m/uL (4.30-5.90); RDW 19.9 % (11.5-15.5)
--- NOTE | 2017-11-24 06:34 | P.PN ---
Subjective Progress Note Date: 11/23/17 Principal diagnosis: TIA Neurology is following on a 66 year old male who is being managed for TIA. Patient had a sudden onset of dizziness and left lower extremity weakness. Patient was unable to bear weight on it. DIzziness is described as a foggy sensation with confusion lasting 5-10 minutes. Symptoms resolved spontaneously. Patient does have a history of TIA and was currently on 81 mg Aspirin and lipitor at home. Patient was started on IV rehydration. Initial testing results: CT Brain: normal CBC: anemia- Hgb 9.3, Hct 29%, Creatinine 1.73 Cardiac enzymes: normal Fasting lipid panel: normal EEG: Ordered Serum homocysteine level: Ordered At time of contact, the patient was seated in a wheelchair after returning from testing. He was AOx3, no actute distress and family was present in the room. Patient still complained of lower extremity residual deficits which have improved somewhat and less frequent but still intermittently present foggy sensation/confusion. Objective - Vital Signs Vital signs: Vital Signs Temp 97 F L 11/24/17 04:00 Pulse 72 11/24/17 04:00 Resp 16 11/24/17 04:00 BP 182/88 11/24/17 04:00 Pulse Ox 99 11/24/17 04:00 Intake & Output 11/23/17 11/23/17 11/24/17 06:59 18:59 06:59 Intake Total 300 360 570 Output Total 300 500 Balance 0 -140 570 Weight 75.7 kg 74 kg Intake: IV 300 0.9 300 Intake, IV Titration 450 Amount Sodium Chloride 0.9% 1, 450 000 ml @ 75 mls/hr IV . [id number] [facility] Rx#:[id number] Oral 360 120 Output: Urine 300 500 Other: Voiding Method Toilet Urinal Diaper # Voids 1 1 1 - Exam General appearance: Alert, no apparent distress. Head: Atraumatic, normocephalic, normal inspection Eyes: Well appearance, PERRLA, EOMI. Ear, nose and throat: Normal exam, mucous membranes moist Neck: Normal inspection, absent tenderness, lymphadenopathy. Respiratory: No increased work of breathing Cardiovascular: Regular rate, normal rhythm GI/abdominal: Normal bowel sounds, nondistended, no tenderness, no guarding, no rebound, no rigidity. Extremities: All range of motion, normal capillary refill, no tenderness, pedal edema joint swelling, calf tenderness. Neurological: Alert and oriented 3, cranial nerves II through XII intact, unilateralizing weakness- 4+/5 upper and lower extremity strenghts on the left and 5/5 on the right, no seizure activity noted on physical exam, no pronator drift and no nystagmus. Psychological: Mood and affect appropriate for setting. - Labs CBC & Chem 7: 11/23/17 06:03 11/23/17 06:03 Labs: Abnormal Lab Results - Last 24 Hours (Table) 11/23/17 11/23/17 11/23/17 Range/Units 06:03 06:03 06:03 RBC 3.13 L (4.30-5.90) m/uL Hgb 9.0 L (13.0-17.5) gm/dL Hct 28.8 L (39.0-53.0) % RDW 19.7 H (11.5-15.5) % Creatinine 1.30 H (0.66-1.25) mg/dL Homocysteine 18.67 H (4.00-14.00) umol/L Microbiology - Last 24 Hours (Table) 11/22/17 17:48 Urine Culture - Final Urine,Voided Assessment and Plan (1) TIA (transient ischemic attack) Current Visit: Yes Status: Acute Code(s): G45.9 - TRANSIENT CEREBRAL ISCHEMIC ATTACK, UNSPECIFIED SNOMED Code(s): 831623233 (2) Hyperlipidemia Current Visit: No Status: Chronic Code(s): E78.5 - HYPERLIPIDEMIA, UNSPECIFIED SNOMED Code(s): 01583214 (3) Hypertension Current Visit: No Status: Chronic Code(s): I10 - ESSENTIAL (PRIMARY) HYPERTENSION SNOMED Code(s): 00368405 (4) Dehydration Current Visit: Yes Status: Acute Code(s): E86.0 - DEHYDRATION SNOMED Code( s): 62487186 (5) Anemia Current Visit: Yes Status: Acute Code(s): D64.9 - ANEMIA, UNSPECIFIED SNOMED Code(s): 902629261 Plan: Patient does appear to have suffered a TIA. Patient's serum homocysteine level was elevated. I will prescribe foltyx. Carotid doppler was not previously ordered, I will order it at this time. Continue lipitor, plavix per previous recommendations. PT evaluation recommended. Continue neuro checks, DVT prophylaxis as implemented. EEG notes mild encephalopathy. We will repeat CT Brain on 11/24/17 for continued surveillance of unresolved deficits. Status: Neurology will continue to follow the patient from a neurological standpoint Contact our office with any questions or concerns. Patient to follow up in our office within 10 days of discharge. Vaughn Chiu, [employer]PER[employer]END[employer]-C Neurology For DR Chelsey Seth MD I discussed the patients history, physical exam, diagnostic testing, lab work and imaging with Dr Seth prior to implementing the plan above. He agrees with the plan as implemented prior to implementation.
[2017-11-24 07:07] LABS: Anion Gap 8 mmol/L; Blood Urea Nitrogen 15 mg/dL (9-20); Calcium 9.3 mg/dL (8.4-10.2); Carbon Dioxide 27 mmol/L (22-30); Chloride 104 mmol/L (98-107); Glucose 84 mg/dL (74-99); Potassium 4.1 mmol/L (3.5-5.1); Sodium 139 mmol/L (137-145)
[2017-11-24] MEDS: IPRATROPIUM-ALBUTEROL 3 ML NEB INHALATION SCH (08:08)
[2017-11-24] MEDS: BUDESONIDE 0.5 MG/2 ML NEBU INHALATION SCH (08:08)
[2017-11-24] MEDS: GLYCOPYRROLATE INHALATION SCH (08:19)
[2017-11-24] MEDS: FORMOTEROL FUM INHALATION SCH (08:19)
--- NOTE | 2017-11-24 08:57 | US ---
EXAMINATION TYPE: US carotid duplex BILAT DATE OF EXAM: 11/24/2017 COMPARISON: Previous study dated 05/27/2017. CLINICAL HISTORY: TIA. Weakness, dizziness EXAM MEASUREMENTS: RIGHT: Peak Systolic Velocity (PSV) cm/sec ----- Right CCA: 54.6 ----- Right ICA: 39.0 ----- Right ECA: 54.3 ICA/CCA ratio: 0.7 RIGHT: End Diastole cm/sec ----- Right CCA: 13.6 ----- Right ICA: 11.3 ----- Right ECA: 7.5 LEFT: Peak Systolic Velocity (PSV) cm/sec ----- Left CCA: 39.7 ----- Left ICA: 61.7 ----- Left ECA: 40.7 ICA/CCA ratio: 1.6 LEFT: End Diastole cm/sec ----- Left CCA: 10.4 ----- Left ICA: 24.4 ----- Left ECA: 5.9 VERTEBRALS (direction of flow): Right Vertebral: Antegrade Left Vertebral: Antegrade Rhythm: Normal Soft plaque on common carotid seen bilaterally but with more on the left, heterogenous plaque at bulb s, more so on the left again, no significant stenosis. IMPRESSION: I DO NOT SEE EVIDENCE OF A HEMODYNAMICALLY SIGNIFICANT STENOSIS IN EITHER CAROTID SYSTEM. Criteria for Assigning % of Stenosis / Diameter reduction (Estimation based on the indirect measurements of the internal carotid artery velocities (ICA PSV). 1. Normal (no stenosis)=ICA PSV < 125 cm/s: ratio < 2.0: ICA EDV<40 cm/s. 2. Less than 50% stenosis=ICA PSV < 125 cm/s: ratio < 2.0: ICA EDV<40 cm/s. 3. 50 to 69% stenosis=ICA PSV of 125 to 230 cm/s: ration 2.0 ? 4.0: ICA EDV 40-100 cm/s. 4. Greater than 70% stenosis to near occlusion= ICA PSV > 230 cm/s: ratio > 4.0: ICA EDV > 100 cm/s. 5. Near occlusion= ICA PSV velocities may be low or undetectable: variable ratio and ICA EDV. 6. Total occlusion=unable to detect flow.
--- NOTE | 2017-11-24 09:05 | CT ---
EXAMINATION TYPE: CT brain wo con DATE OF EXAM: 11/24/2017 COMPARISON: Previous study dated 11/21/2017 HISTORY: Prior in PACS. Patient f/up CVA CT DLP: 995.5 mGycm Automated exposure control for dose reduction was used. FINDINGS: There are generalized changes of sulcal prominence and ventriculomegaly, compatible with atrophic xochitl nge. There is diffuse periventricular white matter lucency, compatible with chronic white matter isch emic change. There is no acute focal lesion, mass effect or midline shift identified. I do not see ev idence of intracranial blood. There is some mucoperiosteal thickening involving the ethmoid and sphenoid sinuses. The mastoids are clear. IMPRESSION: 1. NO ACUTE INTRACRANIAL ABNORMALITY. 2. CHRONIC SINUS MUCOSAL DISEASE.
[2017-11-24] MEDS: HYDROCORTISONE 1% CREAM 30 GM TUBE TOPICAL SCH (09:31)
[2017-11-24] MEDS: MUPIROCIN 2% OINT 22 GM TUBE TOPICAL SCH (09:31)
[2017-11-24] MEDS: FAMOTIDINE 20 MG TAB PO SCH (09:32)
[2017-11-24] MEDS: CHOLECALCIFEROL 1,000 UNIT TAB PO SCH (09:32)
[2017-11-24] MEDS: CLOPIDOGREL 75 MG TAB PO SCH (09:32)
[2017-11-24] MEDS: CLINDAMYCIN TOPICAL SCH (09:32)
[2017-11-24] MEDS: FERROUS SULFATE 325 MG TAB PO SCH (09:33)
[2017-11-24] MEDS: TAMSULOSIN 0.4 MG CAP.ER.24H PO SCH (09:33)
[2017-11-24] MEDS: SERTRALINE 25 MG TAB PO SCH (09:33)
[2017-11-24 09:48] VITALS: PULSE 74
[2017-11-24] MEDS ORDERED: CYANOCOBALAMIN-FA-PYRIDOXINE 1 EACH TAB PO SCH (12:00)
--- NOTE | 2017-11-24 12:46 | P.PN ---
Subjective Progress Note Date: 11/24/17 Principal diagnosis: TIA Neurology is following on a 66 year old male who is being managed for TIA. Patient had a sudden onset of dizziness and left lower extremity weakness. Patient was unable to bear weight on it. DIzziness is described as a foggy sensation with confusion lasting 5-10 minutes. Symptoms resolved spontaneously. Patient does have a history of TIA and was currently on 81 mg Aspirin and lipitor at home. Patient was started on IV rehydration. Initial testing results: CT brain #2- normal CT Brain: normal CBC: anemia- Hgb 9.3, Hct 29%, Creatinine 1.73 Cardiac enzymes: normal Fasting lipid panel: normal EEG: normal Serum homocysteine level: elevated Interval Update (11/24/17) At time of contact, the patient was was resting in bed comfortably, no acute distress, alert and oriented 3. Patient reported returned to baseline with no remaining deficits or neurological changes in the last 24 hours. Objective - Vital Signs Vital signs: Vital Signs Temp 98 F 11/24/17 12:00 Pulse 74 11/24/17 12:00 Resp 16 11/24/17 12:00 BP 162/78 11/24/17 12:00 Pulse Ox 96 11/24/17 12:00 Intake & Output 11/23/17 11/24/17 11/24/17 18:59 06:59 18:59 Intake Total 360 570 240 Output Total 500 100 Balance -140 570 140 Weight 74 kg Intake: Intake, IV Titration 450 Amount Sodium Chloride 0.9% 1, 450 000 ml @ 75 mls/hr IV . [id number] [facility] Rx#:[id number] Oral 360 120 240 Output: Urine 500 100 Other: Voiding Method Urinal Diaper # Voids 1 1 1 # Bowel Movements 0 - Exam General appearance: Alert, no apparent distress. Head: Atraumatic, normocephalic, normal inspection Eyes: Well appearance, PERRLA, EOMI. Ear, nose and throat: Normal exam, mucous membranes moist Neck: Normal inspection, absent tenderness, lymphadenopathy. Respiratory: No increased work of breathing Cardiovascular: Regular rate, normal rhythm GI/abdominal: Normal bowel sounds, nondistended, no tenderness, no guarding, no rebound, no rigidity. Extremities: All range of motion, normal capillary refill, no tenderness, pedal edema joint swelling, calf tenderness. Neurological: Alert and oriented 3, cranial nerves II through XII intact, no unilateral lateralizing weakness, no seizure activity noted on physical exam, no pronator drift and no nystagmus. Psychological: Mood and affect appropriate for setting. - Labs CBC & Chem 7: 11/24/17 05:44 11/24/17 05:44 Labs: Abnormal Lab Results - Last 24 Hours (Table) 11/23/17 11/24/17 11/24/17 Range/Units 06:03 05:44 05:44 RBC 3.21 L (4.30-5.90) m/uL Hgb 9.2 L (13.0-17.5) gm/dL Hct 29.8 L (39.0-53.0) % MCHC 30.9 L (31.0-37.0) g/dL RDW 19.9 H (11.5-15.5) % Creatinine 1.30 H (0.66-1.25) mg/dL Homocysteine 18.67 H (4.00-14.00) umol/L Microbiology - Last 24 Hours (Table) 11/22/17 17:48 Urine Culture - Final Urine,Voided Assessment and Plan (1) TIA (transient ischemic attack) Current Visit: Yes Status: Acute Code(s): G45.9 - TRANSIENT CEREBRAL ISCHEMIC ATTACK, UNSPECIFIED SNOMED Code(s): 252984126 (2) Hyperlipidemia Current Visit: No Status: Chronic Code(s): E78.5 - HYPERLIPIDEMIA, UNSPECIFIED SNOMED Code(s): 06757179 (3) Hypertension Current Visit: No Status: Chronic Code(s): I10 - ESSENTIAL (PRIMARY) HYPERTENSION SNOMED Code(s): 09608299 (4) Dehydration Current Visit: Yes Status: Acute Code(s): E86.0 - DEHYDRATION SNOMED Code( s): 69840418 (5) Anemia Current Visit: Yes Status: Acute Code(s): D64.9 - ANEMIA, UNSPECIFIED SNOMED Code(s): 360243963 Plan: Patient does appear to have suffered a TIA. Patient's serum homocysteine level was elevated. Continue foltyx. Carotid doppler was negative. Continue lipitor, plavix per previous recommendations. PT evaluation recommended. Continue neuro checks, DVT prophylaxis as implemented. EEG notes mild encephalopathy. Patient returned to baseline per physical exam and per patient statement. Status: Neurology will The patient for discharge from a neurological standpoint. Medications to be continued as noted outpatient. Contact our office with any questions or concerns. Patient to follow up in our office within 10 days of discharge. TR[facility] Neurology For Dr Chelsey Silverio MD I discussed the patients history, physical exam, diagnostic testing, lab work and imaging with Dr Silverio prior to implementing the plan above. He agrees with the plan as implemented prior to implementation.
[2017-11-24] MEDS ORDERED: METOPROLOL TARTRATE 25 MG TAB PO STA (14:24)
[2017-11-24 15:57] VITALS: BP 138/72; RESP 18; TEMP 98.3
--- NOTE | 2017-11-24 17:08 | DS ---
DISCHARGE SUMMARY DATE OF ADMISSION: 11/21/2017. DATE OF DISCHARGE: 11/24/2017 FINAL DIAGNOSES: 1. Acute transient ischemic attack with prior history of multiple strokes. 2. 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 3. Essential hypertension. 4. Hyperlipidemia. 5. Primary osteoarthritis in multiple joints, bilateral. 6. Chronic obstructive pulmonary disease in an ex-smoker. 7. Chronic gait dysfunction; uses a cane. 8. Acute renal failure, likely prerenal, present on admission, improving. HOSPITAL COURSE: This patient with prior strokes and TIAs who has had prior intracranial intervention at [facility] yet again presented with some drooping of the left side of the mouth, some left leg weakness. These symptoms greatly improved. The patient did have a CT scan of the brain, EEG and carotid Doppler that did not show anything acute. He was seen by Dr. Silverio from Neurology. The patient normally follows with Dr. Mcghee from Neurology. The patient is back to his baseline, doing well. On examination, very minimal baseline facial asymmetry. Mild left leg weakness which is chronic, per patient. Patient's blood pressure today is running 150/80; hence Lopressor is being added. Patient also had acute renal failure. Creatinine from his baseline of 1.0 had gone up to 1.7. IV fluids. Coming down nicely. CONSULTATION: Dr. Silverio from Neurology. DISCHARGE MEDICATIONS: 1. Lopressor 25 mg p.o. b.i.d. -- new medication. 2. Lipitor 80 mg at bedtime. 3. Vitamin D3 1000 units p.o. in the morning. 4. DuoNeb b.i.d. 5. Slow-Mag . 6. Norvasc 10 mg p.o. daily. 7. Iron 325 p.o. daily. 8. Zantac 150 mg p.o. b.i.d. 9. Cleocin topically b.i.d. 10.Hydrocortisone 2.5% 1 topical b.i.d. 11.Nizoral shampoo Sunday and . 12.Zoloft 25 p.o. daily. 13.Detrol LA 4 mg p.o. daily. 14.Pulmicort 0.4 mg nebulizer b.i.d. 15.Bactroban 2% topically b.i.d. 16.Plavix 75 p.o. daily. 17.Folbic 1 capsule p.o. daily at noon. 18.Lopressor 25 p.o. b.i.d. Follow up with Dr. Luke in 3 days. Follow up with neurologist, Dr. Mcghee, in one week. Follow-up BMP in one week. MMODL / IJN: [id number] /
== END 2017-11-24 16:48 | disposition home or self-care (01) ==
LOC: EC 20:33 → INTOOBSV 22:41 → 6SEL 22:41
PROVIDERS: ADMIT Hospitalist; ATTEND Hospitalist
DX: G45.9 Transient cerebral ischemic attack, unspecified (principal); N17.9 Acute kidney failure, unspecified; I12.9 Hypertensive chronic kidney disease with stage 1 through stage 4 chronic kidney disease, or unspecified chronic kidney disease; N18.2 Chronic kidney disease, stage 2 (mild); E86.0 Dehydration; J44.9 Chronic obstructive pulmonary disease, unspecified; N40.1 Benign prostatic hyperplasia with lower urinary tract symptoms; R35.0 Frequency of micturition; G47.33 Obstructive sleep apnea (adult) (pediatric); D64.9 Anemia, unspecified; R26.9 Unspecified abnormalities of gait and mobility; G81.94 Hemiplegia, unspecified affecting left nondominant side; Z99.89 Dependence on other enabling machines and devices; E78.5 Hyperlipidemia, unspecified; K21.9 Gastro-esophageal reflux disease without esophagitis; M15.9 Polyosteoarthritis, unspecified; Z79.2 Long term (current) use of antibiotics; Z79.51 Long term (current) use of inhaled steroids; Z79.899 Other long term (current) drug therapy; Z98.61 Coronary angioplasty status; Z87.11 Personal history of peptic ulcer disease; Z87.891 Personal history of nicotine dependence; Z87.39 Personal history of other diseases of the musculoskeletal system and connective tissue; Z96.651 Presence of right artificial knee joint; Z82.49 Family history of ischemic heart disease and other diseases of the circulatory system; Z83.3 Family history of diabetes mellitus; Z82.3 Family history of stroke; Z79.82 Long term (current) use of aspirin
CPT/HCPCS: 99285 ×2; 96360; 96361; 36415; 94640 ×5; 94760 ×2; 95819; 93005; 97162; 97165; 92610; 80061; 80053; 80048 ×2; 82550; 82553; 84484; 85025 ×3; 85610; 85730; 83090; 87086; 71046; 93880; 70450 ×2; G0378 ×5

== ENCOUNTER 2017-12-06 10:17 | Emergency (ER) | payer MEDICARE, BC ==
--- NOTE | 2017-12-06 10:33 | ED ---
General Adult HPI - General Chief complaint: Dizziness Stated complaint: Dizzy Time Seen by Provider: 12/06/17 10:17 Source: patient, EMS, RN notes reviewed Mode of arrival: EMS - History of Present Illness Initial comments: This is a 66-year-old male presents emergency room with past medical history significant for CVA in the past. Patient states he has some left-sided residual weakness. Patient states this morning he woke up got out of bed and felt himself getting a little off balance. Patient states he did not feel near syncopal. Patient states he just felt as though his balance was off this morning. Patient denies any headache patient denies any numbness or new weakness. Patient denies any chest pain palpitations difficulty breathing or shortness of breath. Patient denies any recent fever chills or cough. Patient states while sitting in bed he does not have any dizziness at this time. Patient denies any other complaints at this time. - Related Data Home Medications Medication Instructions Recorded Confirmed Atorvastatin [Lipitor] 80 mg PO HS 05/26/17 12/06/17 Cholecalciferol [Vitamin D3] 1,000 unit PO QAM 05/26/17 12/06/17 Ipratropium-Albuterol Nebulize 3 ml INHALATION RT-Q6H PRN 05/26/17 12/06/17 [Duoneb 0.5 mg-3 mg/3 ml Soln] Tamsulosin HCl [Flomax] 0.4 mg PO QAM 05/26/17 12/06/17 amLODIPine [Norvasc] 10 mg PO QAM 05/26/17 12/06/17 Ferrous Sulfate [Feosol] 325 mg PO DAILY 06/29/17 12/06/17 Ranitidine HCl [Zantac] 150 mg PO BID 07/13/17 12/06/17 Clindamycin Topical Soln 1 applic TOPICAL TID PRN 08/28/17 12/06/17 [Cleocin-T Topical Soln] Hydrocortisone Cream 1 applic TOPICAL BID 08/28/17 12/06/17 [Hydrocortisone 2.5% Cream] Ketoconazole 2% Shampoo [Nizoral] 1 applic TOPICAL MOTH 08/28/17 12/06/17 Sertraline [Zoloft] 25 mg PO DAILY 08/28/17 12/06/17 Tolterodine Tartrate [Detrol LA] 4 mg PO DAILY 08/28/17 12/06/17 Budesonide [Pulmicort] 0.5 mg INHALATION RT-BID 11/08/17 12/06/17 Mupirocin 2% Oint [Bactroban 2% 1 applic TOPICAL BID 11/21/17 12/06/17 Oint] Albuterol Inhaler [Ventolin Hfa 2 puff INHALATION RT-Q6H PRN 12/06/17 12/06/17 Inhaler] Calcium Carbonate/Vitamin D3 1 tab PO BID 12/06/17 12/06/17 [Calcium 500-Vit D3 200 Tablet] Cyanocobalamin (Vitamin B-12) 1,000 mcg PO DAILY 12/06/17 12/06/17 [Vitamin B-12] [id number]-IY-Ycjqnqzadx 1 tab PO DAILY@1200 12/06/17 12/06/17 [Folbic] Previous Rx's Medication Instructions Recorded Clopidogrel [Plavix] 75 mg PO DAILY #30 tab 11/24/17 Metoprolol Tartrate [Lopressor] 25 mg PO BID #60 tablet 11/24/17 Allergies Allergy/AdvReac Type Severity Reaction Status Date / Time No Known Allergies Allergy Verified 11/21/17 21:06 Review of Systems ROS Statement: Those systems with pertinent positive or pertinent negative responses have been documented in the HPI. ROS Other: All systems not noted in ROS Statement are negative. Past Medical History Past Medical History: COPD, CVA/TIA, GERD/Reflux, Hyperlipidemia, Hypertension, Musculoskeletal Disorder, Prostate Disorder, Renal Disease, Sleep Apnea/CPAP/ BIPAP Additional Past Medical History / Comment(s): pt has minimal L sided weaknes/ facial droop, TIAs, past gastric ulcer, chronic renal disease stage II, ROSA ( waiting for Cpap machine), past R foot 3rd toe osteomyelitis, arthritis multiple joints, R eye cataract, UTI, BPH. History of Any Multi-Drug Resistant Organisms: None Reported Past Surgical History: Hernia Repair, Joint Replacement, Orthopedic Surgery Additional Past Surgical History / Comment(s): RT TOTAL KNEE,past peg tube- since removed. intracranial angioplasty at [facility] on 06/01/2017, colonoscopies. Past Anesthesia/Blood Transfusion Reactions: No Reported Reaction Past Psychological History: No Psychological Hx Reported Smoking Status: Former smoker Past Alcohol Use History: None Reported Past Drug Use History: None Reported - Past Family History Mother Family Medical History: CVA/TIA, Diabetes Mellitus, Hyperlipidemia, Hypertension Father Family Medical History: CVA/TIA, Hypertension General Exam - General Exam Comments Initial Comments: GENERAL: Patient is well-developed and well-nourished. Patient is nontoxic and well- hydrated and is in mild distress. ENT: Neck is soft and supple. No significant lymphadenopathy is noted. Oropharynx is clear. Moist mucous membranes. Neck has full range of motion without eliciting any pain. EYES: The sclera were anicteric and conjunctiva were pink and moist. Extraocular movements were intact and pupils were equal round and reactive to light. Eyelids were unremarkable. PULMONARY: Unlabored respirations. Good breath sounds bilaterally. No audible rales rhonchi or wheezing was noted. CARDIOVASCULAR: There is a regular rate and rhythm without any murmurs gallops or rubs. ABDOMEN: Soft and nontender with normal bowel sounds. No palpable organomegaly was noted. There is no palpable pulsatile mass. SKIN: Skin is clear with no lesions or rashes and otherwise unremarkable. NEUROLOGIC: Patient is alert and oriented x3. Cranial nerves II through XII are grossly intact. Patient has slight weakness on the left compared the right but he states this is his baseline. Normal speech, volume and content. Symmetrical smile. Finger nose testing was normal bilaterally MUSCULOSKELETAL: Normal extremities with adequate strength and full range of motion. No lower extremity swelling or edema. No calf tenderness. LYMPHATICS: No significant lymphadenopathy is noted PSYCHIATRIC: Normal psychiatric evaluation. Normal interpersonal interactions appears functionally intact in deals appropriately with others. No signs of depression. No signs of anxiety. Course Vital Signs 12/06/17 12/06/17 10:19 10:50 Temperature 97.4 F L Pulse Rate 67 Pulse Rate [ 60 Sitting] Pulse Rate [ 69 Standing] Pulse Rate [ 52 L Supine] Respiratory 17 Rate Blood Pressure 182/68 Blood Pressure 116/59 [Right Arm Sitting] Blood Pressure 110/62 [Right Arm Standing] Blood Pressure 141/71 [Right Arm Supine] O2 Sat by Pulse 100 Oximetry Medical Decision Making - Medical Decision Making EKG shows sinus bradycardia 57 bpm NH interval 174 QRS is 86 QT interval 4:30 QTC is 418 per patient's EKG shows no ST segment elevation or depression or T wave abnormalities are noted. came in and stated that he has these episodes and his neurologist called these TIAs. I gave them the option of staying the decided to go home and follow-up with her neurologist - Lab Data Result diagrams: 12/06/17 10:43 12/06/17 10:43 Lab Results 12/06/17 12/06/17 12/06/17 Range/Units 10:34 10:43 10:43 WBC 5.1 (3.8-10.6) k/uL RBC 3.61 L (4.30-5.90) m/uL Hgb 10.3 L (13.0-17.5) gm/dL Hct 33.4 L (39.0-53.0) % MCV 92.4 (80.0-100.0) fL MCH 28.4 (25.0-35.0) pg MCHC 30.7 L (31.0-37.0) g/dL RDW 18.5 H (11.5-15.5) % Plt Count 301 (150-450) k/uL Neutrophils % 60 % Lymphocytes % 29 % Monocytes % 5 % Eosinophils % 3 % Basophils % 1 % Neutrophils # 3.1 (1.3-7.7) k/uL Lymphocytes # 1.5 (1.0-4.8) k/uL Monocytes # 0.3 (0-1.0) k/uL Eosinophils # 0.1 (0-0.7) k/uL Basophils # 0.0 (0-0.2) k/uL Hypochromasia Slight Anisocytosis Slight PT (9.0-12.0) sec INR (<1.2) APTT (22.0-30.0) sec Sodium (137-145) mmol/L Potassium (3.5-5.1) mmol/L Chloride (98-107) mmol/L Carbon Dioxide (22-30) mmol/L Anion Gap mmol/L BUN (9-20) mg/dL Creatinine (0.66-1.25) mg/dL Est GFR (MDRD) Af Amer (>60 ml/min/1.73 sqM) Est GFR (MDRD) Non-Af (>60 ml/min/1.73 sqM) Glucose (74-99) mg/dL POC Glucose (mg/dL) 127 H (75-99) mg/dL POC Glu Pillowcase Turner ID Mehlberg, Geri Calcium (8.4-10.2) mg/dL Magnesium (1.6-2.3) mg/dL Total Bilirubin (0.2-1.3) mg/dL AST (17-59) U/L ALT (21-72) U/L Alkaline Phosphatase (38-126) U/L Total Creatine Kinase 62 (55-170) U/L CK-MB (CK-2) 0.5 (0.0-2.4) ng/mL CK-MB (CK-2) Rel Index 0.8 Troponin I <0.012 (0.000-0.034) ng/mL Total Protein (6.3-8.2) g/dL Albumin (3.5-5.0) g/dL Serum Alcohol mg/dL 12/06/17 12/06/17 Range/Units 10:43 10:43 WBC (3.8-10.6) k/uL RBC (4.30-5.90) m/uL Hgb (13.0-17.5) gm/dL Hct (39.0-53.0) % MCV (80.0-100.0) fL MCH (25.0-35.0) pg MCHC (31.0-37.0) g/dL RDW (11.5-15.5) % Plt Count (150-450) k/uL Neutrophils % % Lymphocytes % % Monocytes % % Eosinophils % % Basophils % % Neutrophils # (1.3-7.7) k/uL Lymphocytes # (1.0-4.8) k/uL Monocytes # (0-1.0) k/uL Eosinophils # (0-0.7) k/uL Basophils # (0-0.2) k/uL Hypochromasia Anisocytosis PT 10.1 (9.0-12.0) sec INR 1.0 (<1.2) APTT 23.4 (22.0-30.0) sec Sodium 140 (137-145) mmol/L Potassium 3.9 (3.5-5.1) mmol/L Chloride 102 (98-107) mmol/L Carbon Dioxide 30 (22-30) mmol/L Anion Gap 8 mmol/L BUN 21 H (9-20) mg/dL Creatinine 1.60 H (0.66-1.25) mg/dL Est GFR (MDRD) Af Amer 53 (>60 ml/min/1.73 sqM) Est GFR (MDRD) Non-Af 43 (>60 ml/min/1.73 sqM) Glucose 138 H (74-99) mg/dL POC Glucose (mg/dL) (75-99) mg/dL POC Glu Pillowcase Turner ID Calcium 9.7 (8.4-10.2) mg/dL Magnesium 1.9 (1.6-2.3) mg/dL Total Bilirubin 0.2 (0.2-1.3) mg/dL AST 24 (17-59) U/L ALT 41 (21-72) U/L Alkaline Phosphatase 98 (38-126) U/L Total Creatine Kinase (55-170) U/L CK-MB (CK-2) (0.0-2.4) ng/mL CK-MB (CK-2) Rel Index Troponin I (0.000-0.034) ng/mL Total Protein 7.1 (6.3-8.2) g/dL Albumin 4.0 (3.5-5.0) g/dL Serum Alcohol <10 mg/dL Disposition Clinical Impression: TIA (transient ischemic attack) Disposition: HOME SELF-CARE Condition: Good Instructions: Transient Ischemic Attack (ED) Referrals: Rick Luke MD [Primary Care Provider] - 1-2 days Time of Disposition: 13:07
[2017-12-06 10:46] LABS: Glucose,Whole Blood 127 mg/dL (75-99)
[2017-12-06 11:10] LABS: Anisocytosis Slight; Basophils % (A) 1 %; Eosinophils # (A) 0.1 k/uL (0-0.7); Eosinophils % (A) 3 %; HCT 33.4 % (39.0-53.0); HGB 10.3 gm/dL (13.0-17.5); Hypochromasia Slight; Lymphocytes # (A) 1.5 k/uL (1.0-4.8); Lymphocytes % (A) 29 %; MCH 28.4 pg (25.0-35.0); MCHC 30.7 g/dL (31.0-37.0); MCV 92.4 fL (80.0-100.0); Mean Platelet Volume 7.1; Monocytes # (A) 0.3 k/uL (0-1.0); Monocytes % (A) 5 %; Neutrophils # (A) 3.1 k/uL (1.3-7.7); Neutrophils % (A) 60 %; Platelet Count 301 k/uL (150-450); RBC 3.61 m/uL (4.30-5.90); RDW 18.5 % (11.5-15.5); WBC 5.1 k/uL (3.8-10.6)
[2017-12-06 11:21] LABS: Partial Thromboplastin Time 23.4 sec (22.0-30.0); Prothrombin Time 10.1 sec (9.0-12.0)
[2017-12-06 11:25] LABS: AST 24 U/L (17-59); Alkaline Phosphatase 98 U/L (38-126); Anion Gap 8 mmol/L; Blood Urea Nitrogen 21 mg/dL (9-20); Calcium 9.7 mg/dL (8.4-10.2); Carbon Dioxide 30 mmol/L (22-30); Chloride 102 mmol/L (98-107); Glucose 138 mg/dL (74-99); Potassium 3.9 mmol/L (3.5-5.1); Sodium 140 mmol/L (137-145); Total Bilirubin 0.2 mg/dL (0.2-1.3); Total Protein 7.1 g/dL (6.3-8.2)
[2017-12-06 11:26] LABS: ALT 41 U/L (21-72); Alcohol <10 mg/dL; Magnesium 1.9 mg/dL (1.6-2.3)
[2017-12-06 11:31] LABS: Creatine Kinase 62 U/L (55-170)
--- NOTE | 2017-12-06 11:32 | CT ---
EXAMINATION TYPE: CT brain wo con DATE OF EXAM: 12/06/2017 HISTORY: Dizziness CT DLP: 1121 mGycm. Automated Exposure Control for Dose Reduction was Utilized. TECHNIQUE: CT scan of the head is performed without contrast. COMPARISON: CT brain November 24, 2017. FINDINGS: There is no acute intracranial hemorrhage or midline shift identified. There is diffuse v entricular and sulcal prominence consistent with diffuse age-related cerebral atrophy. There is low- attenuation in the periventricular white matter consistent with chronic small vessel ischemic change. Old infarct left internal capsule near axial image 25 is redemonstrated. The globes are intact and t he visualized sinuses are clear. Sclerotic lesion left frontal bone axial image 23 could reflect os teoma and is stable. IMPRESSION: No acute intracranial hemorrhage or midline shift. There is mild to moderate diffuse ag e-related cerebral atrophy and moderate to severe chronic small vessel ischemic change as well as old left-sided lacunar infarct are all redemonstrated. No significant change from prior.
--- NOTE | 2017-12-06 11:36 | XR ---
EXAMINATION TYPE: XR chest 2V DATE OF EXAM: 12/06/2017 COMPARISON: 11/21/2017 INDICATION: Chest pain TECHNIQUE: Frontal and lateral views of the chest are obtained. FINDINGS: The heart size is normal. The pulmonary vasculature is normal. The lungs are clear. IMPRESSION: 1. No acute pulmonary process.
[2017-12-06 11:44] LABS: Creatine Kinase MB 0.5 ng/mL (0.0-2.4); Troponin I <0.012 ng/mL (0.000-0.034)
[2017-12-06 13:25] VITALS: BP 162/88; PULSE 59; RESP 19; TEMP 98.2
== END 2017-12-06 14:05 | disposition home or self-care (01) ==
LOC: EC 10:17
DX: G45.9 Transient cerebral ischemic attack, unspecified (principal); R00.1 Bradycardia, unspecified; E78.5 Hyperlipidemia, unspecified; I10 Essential (primary) hypertension; J44.9 Chronic obstructive pulmonary disease, unspecified; K21.9 Gastro-esophageal reflux disease without esophagitis; N40.0 Benign prostatic hyperplasia without lower urinary tract symptoms; Z87.891 Personal history of nicotine dependence; Z79.51 Long term (current) use of inhaled steroids; Z79.52 Long term (current) use of systemic steroids; Z79.899 Other long term (current) drug therapy; Z87.19 Personal history of other diseases of the digestive system; Z82.3 Family history of stroke
CPT/HCPCS: 36415; 70450; 71046; 80053; 80320; 82550; 82553; 83735; 84484; 85025; 85610; 85730; 93005; 99285

== ENCOUNTER 2017-12-29 21:54 | Emergency (ER) | payer MEDICARE, BC ==
[2017-12-29 22:21] VITALS: PULSE 87; RESP 20
--- NOTE | 2017-12-29 22:46 | ED ---
Skin/Abscess/FB HPI - General Chief complaint: Skin/Abscess/Foreign Body Stated complaint: Rash Time Seen by Provider: 12/29/17 22:35 Source: patient, RN notes reviewed Mode of arrival: ambulatory Limitations: no limitations - History of Present Illness Initial comments: This is a 66-year-old male who presents to the emergency department with chief complaint of rash. Patient states that the rash appeared today on his right arm. He states that it is not painful and it doesn't itch. He states he is concerned that he may have shingles. Denies any fevers or chills, chest pain or shortness of breath, vomiting, nausea or vomiting. - Related Data Home Medications Medication Instructions Recorded Confirmed Atorvastatin [Lipitor] 80 mg PO HS 05/26/17 12/29/17 Cholecalciferol [Vitamin D3] 1,000 unit PO QAM 05/26/17 12/29/17 Ipratropium-Albuterol Nebulize 3 ml INHALATION RT-Q6H PRN 05/26/17 12/29/17 [Duoneb 0.5 mg-3 mg/3 ml Soln] Tamsulosin HCl [Flomax] 0.4 mg PO QAM 05/26/17 12/29/17 amLODIPine [Norvasc] 10 mg PO QAM 05/26/17 12/29/17 Ferrous Sulfate [Feosol] 325 mg PO DAILY 06/29/17 12/29/17 Ranitidine HCl [Zantac] 150 mg PO BID 07/13/17 12/29/17 Hydrocortisone Cream 1 applic TOPICAL BID 08/28/17 12/29/17 [Hydrocortisone 2.5% Cream] Ketoconazole 2% Shampoo [Nizoral] 1 applic TOPICAL MOTH 08/28/17 12/29/17 Sertraline [Zoloft] 25 mg PO DAILY 08/28/17 12/29/17 Tolterodine Tartrate [Detrol LA] 4 mg PO DAILY 08/28/17 12/29/17 Budesonide [Pulmicort] 0.5 mg INHALATION RT-BID 11/08/17 12/29/17 Mupirocin 2% Oint [Bactroban 2% 1 applic TOPICAL BID 11/21/17 12/29/17 Oint] Albuterol Inhaler [Ventolin Hfa 2 puff INHALATION RT-Q6H PRN 12/06/17 12/29/17 Inhaler] Calcium Carbonate/Vitamin D3 1 tab PO BID 12/06/17 12/29/17 [Calcium 500-Vit D3 200 Tablet] Cyanocobalamin (Vitamin B-12) 1,000 mcg PO DAILY 12/06/17 12/29/17 [Vitamin B-12] Kmzvthwufqxmyj-TO-Evqzpekgkj 1 tab PO DAILY@1200 12/06/17 12/29/17 [Folbic] Previous Rx's Medication Instructions Recorded Clopidogrel [Plavix] 75 mg PO DAILY #30 tab 11/24/17 Metoprolol Tartrate [Lopressor] 25 mg PO BID #60 tablet 11/24/17 valACYclovir HCL [Valtrex] 1,000 mg PO TID 7 Days #21 tablet 12/29/17 Allergies Allergy/AdvReac Type Severity Reaction Status Date / Time No Known Allergies Allergy Verified 12/29/17 22:21 Review of Systems ROS Statement: Those systems with pertinent positive or pertinent negative responses have been documented in the HPI. ROS Other: All systems not noted in ROS Statement are negative. Past Medical History Past Medical History: COPD, CVA/TIA, GERD/Reflux, Hyperlipidemia, Hypertension, Musculoskeletal Disorder, Prostate Disorder, Renal Disease, Sleep Apnea/CPAP/ BIPAP Additional Past Medical History / Comment(s): pt has minimal L sided weaknes/ facial droop, TIAs, past gastric ulcer, chronic renal disease stage II, ROSA ( waiting for Cpap machine), past R foot 3rd toe osteomyelitis, arthritis multiple joints, R eye cataract, UTI, BPH. History of Any Multi-Drug Resistant Organisms: None Reported Past Surgical History: Hernia Repair, Joint Replacement, Orthopedic Surgery Additional Past Surgical History / Comment(s): RT TOTAL KNEE,past peg tube- since removed. intracranial angioplasty at [facility] on 06/01/2017, colonoscopies. Past Anesthesia/Blood Transfusion Reactions: No Reported Reaction Past Psychological History: No Psychological Hx Reported Smoking Status: Former smoker Past Alcohol Use History: None Reported Past Drug Use History: None Reported - Past Family History Mother Family Medical History: CVA/TIA, Diabetes Mellitus, Hyperlipidemia, Hypertension Father Family Medical History: CVA/TIA, Hypertension General Exam - General Exam Comments Initial Comments: General: Awake and alert, well-developed; in no apparent distress. HEENT: Head atraumatic, normocephalic. Pupils are equal, round and reactive to light. Extraocular movements intact. Oropharynx moist without erythema or exudate. Neck: Supple. Normal ROM. Cardiovascular: Regular rate and rhythm. No murmurs, rubs or gallops. Chest symmetrical. Respiratory: Lungs clear to auscultation bilaterally. No wheezes, rales or rhonchi. Normal respiratory effort with no use of accessory muscles. Musculoskeletal: Normal ROM, no tenderness bilateral upper and lower extremities. Ambulating normally. Skin: [place], warm and dry. Vesicular like rash with erythematous base in a dermatomal pattern on right upper extremity. Neurological: Alert and oriented x3. CN II-XII grossly intact. Speech is fluent and answers are appropriate. No focal neuro deficits. Limitations: no limitations Course Vital Signs 12/29/17 22:11 Temperature 99.5 F Pulse Rate 87 Respiratory 20 Rate Blood Pressure 119/66 O2 Sat by Pulse 99 Oximetry Medical Decision Making - Medical Decision Making This is a 66-year-old male who presents to the emergency department with chief complaint of rash. Rash is vesicular like with erythematous base on a dermatomal pattern right upper extremity. This case was discussed with attending physician, Dr. Joseph who also evaluated the patient. Patient is diagnosed with shingles. He'll be started on antivirals. Denies any pain. Patient is in no acute distress and will be discharged home. He is in agreement and voices understanding. All questions were answered. Disposition Clinical Impression: Shingles Disposition: HOME SELF-CARE Condition: Good Instructions: Shingles (ED) Additional Instructions: Please take medications as prescribed. Please follow up with primary care provider within 1-2 days. Return to emergency department if symptoms should worsen or any concerns arise. Prescriptions: valACYclovir HCL [Valtrex] 1,000 mg PO TID 7 Days #21 tablet Referrals: Rick Luke MD [Primary Care Provider] - 1-2 days Time of Disposition: 22:46
[2017-12-29 23:01] VITALS: BP 130/68; TEMP 98.6
== END 2017-12-29 22:59 | disposition home or self-care (01) ==
LOC: EC 21:54
DX: B02.9 Zoster without complications (principal); J44.9 Chronic obstructive pulmonary disease, unspecified; K21.9 Gastro-esophageal reflux disease without esophagitis; E78.5 Hyperlipidemia, unspecified; I12.9 Hypertensive chronic kidney disease with stage 1 through stage 4 chronic kidney disease, or unspecified chronic kidney disease; N18.2 Chronic kidney disease, stage 2 (mild); G47.30 Sleep apnea, unspecified; Z99.89 Dependence on other enabling machines and devices; Z87.891 Personal history of nicotine dependence; Z86.73 Personal history of transient ischemic attack (TIA), and cerebral infarction without residual deficits; Z79.51 Long term (current) use of inhaled steroids; Z79.899 Other long term (current) drug therapy; Z79.52 Long term (current) use of systemic steroids
CPT/HCPCS: 99282

== ENCOUNTER 2018-02-12 13:01 | Emergency (ER) | payer MEDICARE, BC ==
[2018-02-12 13:25] LABS: Glucose,Whole Blood 132 mg/dL (75-99)
[2018-02-12] MEDS ORDERED: SODIUM CHLORIDE 0.9% 500 ML IV STA (13:31)
--- NOTE | 2018-02-12 13:35 | ED ---
General Adult HPI - General Chief complaint: Dizziness Stated complaint: SOB, lt sided facial droop Time Seen by Provider: 02/12/18 13:15 Source: patient, RN notes reviewed, old records reviewed Mode of arrival: wheelchair Limitations: physical limitation - History of Present Illness Initial comments: 67-year-old male history of CVA and TIA presents with an episode of lightheadedness. Patient states he did not feel like he was given a pass out. He denies any symptoms of vertigo. He states he was lightheaded and confused. Patient is a poor historian. He denies any pain complaints. No headache. No chest pain. No abdominal pain. No history nausea vomiting or diarrhea. Patient does have history of CVA with residual left-sided facial droop according to the patient. He has had CVA and TIA within the past several months. Patient has no other complaints. No fever no chills. No paresthesias. No vision changes. - Related Data Home Medications Medication Instructions Recorded Confirmed Atorvastatin [Lipitor] 80 mg PO HS 05/26/17 02/12/18 Cholecalciferol [Vitamin D3] 1,000 unit PO QAM 05/26/17 02/12/18 Ipratropium-Albuterol Nebulize 3 ml INHALATION RT-Q6H PRN 05/26/17 02/12/18 [Duoneb 0.5 mg-3 mg/3 ml Soln] Tamsulosin HCl [Flomax] 0.4 mg PO QAM 05/26/17 02/12/18 amLODIPine [Norvasc] 10 mg PO QAM 05/26/17 02/12/18 Ferrous Sulfate [Feosol] 325 mg PO DAILY 06/29/17 02/12/18 Ranitidine HCl [Zantac] 150 mg PO BID 07/13/17 02/12/18 Sertraline [Zoloft] 25 mg PO DAILY 08/28/17 02/12/18 Tolterodine Tartrate [Detrol LA] 4 mg PO DAILY 08/28/17 02/12/18 Albuterol Inhaler [Ventolin Hfa 2 puff INHALATION RT-Q6H PRN 12/06/17 02/12/18 Inhaler] Aspirin EC [Ecotrin Low Dose] 81 mg PO DAILY 02/12/18 02/12/18 Docusate [Colace] 100 mg PO DAILY PRN 02/12/18 02/12/18 Previous Rx's Medication Instructions Recorded Clopidogrel [Plavix] 75 mg PO DAILY #30 tab 11/24/17 Allergies Allergy/AdvReac Type Severity Reaction Status Date / Time No Known Allergies Allergy Verified 02/12/18 14:34 Review of Systems ROS Statement: Those systems with pertinent positive or pertinent negative responses have been documented in the HPI. ROS Other: All systems not noted in ROS Statement are negative. Past Medical History Past Medical History: COPD, CVA/TIA, GERD/Reflux, Hyperlipidemia, Hypertension, Musculoskeletal Disorder, Prostate Disorder, Renal Disease, Sleep Apnea/CPAP/ BIPAP Additional Past Medical History / Comment(s): pt has minimal L sided weaknes/ facial droop, TIAs, past gastric ulcer, chronic renal disease stage II, ROSA ( waiting for Cpap machine), past R foot 3rd toe osteomyelitis, arthritis multiple joints, R eye cataract, UTI, BPH. History of Any Multi-Drug Resistant Organisms: None Reported Past Surgical History: Hernia Repair, Joint Replacement, Orthopedic Surgery Additional Past Surgical History / Comment(s): RT TOTAL KNEE,past peg tube- since removed. intracranial angioplasty at [facility] on 06/01/2017, colonoscopies. Past Anesthesia/Blood Transfusion Reactions: No Reported Reaction Past Psychological History: No Psychological Hx Reported Smoking Status: Former smoker Past Alcohol Use History: None Reported Past Drug Use History: None Reported - Past Family History Mother Family Medical History: CVA/TIA, Diabetes Mellitus, Hyperlipidemia, Hypertension Father Family Medical History: CVA/TIA, Hypertension General Exam Limitations: physical limitation General appearance: alert, in no apparent distress Head exam: Present: atraumatic, normocephalic Eye exam: Present: normal appearance, PERRL ENT exam: Present: normal exam Neck exam: Present: normal inspection. Absent: tenderness, meningismus Respiratory exam: Present: normal lung sounds bilaterally. Absent: respiratory distress, wheezes, rales Cardiovascular Exam: Present: regular rate, normal rhythm GI/Abdominal exam: Present: soft. Absent: distended, tenderness Extremities exam: Present: normal inspection, normal capillary refill. Absent: pedal edema, calf tenderness Neurological exam: Present: alert, oriented X3, CN II-XII intact (Left facial droop), motor sensory deficit Psychiatric exam: Present: normal affect, normal mood Skin exam: Present: warm, dry, intact. Absent: cyanosis, diaphoretic Course Vital Signs 02/12/18 02/12/18 02/12/18 13:07 14:10 16:13 Temperature 97.9 F Pulse Rate 81 68 73 Respiratory 20 18 18 Rate Blood Pressure 134/79 157/81 153/87 O2 Sat by Pulse 100 99 98 Oximetry EKG Findings - EKG Comments: EKG Findings:: EKG: Normal sinus rhythm, ventricular rate of 70, AL interval 178 , QRS duration 88, QTC 442, no ST segment elevation Medical Decision Making - Medical Decision Making 67-year-old male presenting with left-sided facial droop. Patient has chronic left-sided facial droop status post CVA. He was encouraged by his to come to the emergency department for evaluation as she felt this was worsening. Patient has been in the emergency department many times with these symptoms he has been admitted with neurology workup. He does have good outpatient neurology follow-up. Workup shows CT with no ventricular hemorrhage, there is atrophy and old lacunar infarcts. EKG nonischemic. Chest x-ray negative for focal pneumonia. White blood cell count 4.8 which is normal, hemoglobin 11, normal urinalysis is clear. Patient is given the option for admission given his symptoms are probably due to. Be resolved in the emergency department, both he and his would prefer to continue outpatient follow-up at this time. Patient is on aspirin and Plavix and statins. He will continue these medications. Follow up with neurology as an outpatient. - Lab Data Result diagrams: 02/12/18 14:04 02/12/18 14:04 Lab Results 02/12/18 02/12/18 02/12/18 Range/Units 13:23 14:04 14:04 WBC 4.8 (3.8-10.6) k/uL RBC 3.80 L (4.30-5.90) m/uL Hgb 11.0 L (13.0-17.5) gm/dL Hct 34.9 L (39.0-53.0) % MCV 91.8 (80.0-100.0) fL MCH 29.0 (25.0-35.0) pg MCHC 31.6 (31.0-37.0) g/dL RDW 17.6 H (11.5-15.5) % Plt Count 262 (150-450) k/uL Neutrophils % 49 % Lymphocytes % 38 % Monocytes % 6 % Eosinophils % 4 % Basophils % 1 % Neutrophils # 2.3 (1.3-7.7) k/uL Lymphocytes # 1.8 (1.0-4.8) k/uL Monocytes # 0.3 (0-1.0) k/uL Eosinophils # 0.2 (0-0.7) k/uL Basophils # 0.0 (0-0.2) k/uL Anisocytosis Slight PT (9.0-12.0) sec INR (<1.2) Sodium 140 (137-145) mmol/L Potassium 4.6 (3.5-5.1) mmol/L Chloride 102 (98-107) mmol/L Carbon Dioxide 28 (22-30) mmol/L Anion Gap 10 mmol/L BUN 20 (9-20) mg/dL Creatinine 1.16 (0.66-1.25) mg/dL Est GFR (CKD-EPI)AfAm 75 (>60 ml/min/1.73 sqM) Est GFR (CKD-EPI)NonAf 65 (>60 ml/min/1.73 sqM) Glucose 105 H (74-99) mg/dL POC Glucose (mg/dL) 132 H (75-99) mg/dL POC Glu Public Address System Installer ID Marycruz Richard Plasma Lactic Acid Del (0.7-2.0) mmol/L Calcium 9.7 (8.4-10.2) mg/dL Total Bilirubin 0.4 (0.2-1.3) mg/dL AST 31 (17-59) U/L ALT 36 (21-72) U/L Alkaline Phosphatase 107 (38-126) U/L Troponin I (0.000-0.034) ng/mL Total Protein 7.6 (6.3-8.2) g/dL Albumin 4.1 (3.5-5.0) g/dL Urine Color Urine Appearance (Clear) Urine pH (5.0-8.0) Ur Specific Haines (1.001-1.035) Urine Protein (Negative) Urine Glucose (UA) (Negative) Urine Ketones (Negative) Urine Blood (Negative) Urine Nitrite (Negative) Urine Bilirubin (Negative) Urine Urobilinogen (<2.0) mg/dL Ur Leukocyte Esterase (Negative) 02/12/18 02/12/18 02/12/18 Range/Units 14:04 14:04 14:04 WBC (3.8-10.6) k/uL RBC (4.30-5.90) m/uL Hgb (13.0-17.5) gm/dL Hct (39.0-53.0) % MCV (80.0-100.0) fL MCH (25.0-35.0) pg MCHC (31.0-37.0) g/dL RDW (11.5-15.5) % Plt Count (150-450) k/uL Neutrophils % % Lymphocytes % % Monocytes % % Eosinophils % % Basophils % % Neutrophils # (1.3-7.7) k/uL Lymphocytes # (1.0-4.8) k/uL Monocytes # (0-1.0) k/uL Eosinophils # (0-0.7) k/uL Basophils # (0-0.2) k/uL Anisocytosis PT 9.7 (9.0-12.0) sec INR 1.0 (<1.2) Sodium (137-145) mmol/L Potassium (3.5-5.1) mmol/L Chloride (98-107) mmol/L Carbon Dioxide (22-30) mmol/L Anion Gap mmol/L BUN (9-20) mg/dL Creatinine (0.66-1.25) mg/dL Est GFR (CKD-EPI)AfAm (>60 ml/min/1.73 sqM) Est GFR (CKD-EPI)NonAf (>60 ml/min/1.73 sqM) Glucose (74-99) mg/dL POC Glucose (mg/dL) (75-99) mg/dL POC Glu Public Address System Installer ID Plasma Lactic Acid Del 1.0 (0.7-2.0) mmol/L Calcium (8.4-10.2) mg/dL Total Bilirubin (0.2-1.3) mg/dL AST (17-59) U/L ALT (21-72) U/L Alkaline Phosphatase (38-126) U/L Troponin I <0.012 (0.000-0.034) ng/mL Total Protein (6.3-8.2) g/dL Albumin (3.5-5.0) g/dL Urine Color Urine Appearance (Clear) Urine pH (5.0-8.0) Ur Specific Haines (1.001-1.035) Urine Protein (Negative) Urine Glucose (UA) (Negative) Urine Ketones (Negative) Urine Blood (Negative) Urine Nitrite (Negative) Urine Bilirubin (Negative) Urine Urobilinogen (<2.0) mg/dL Ur Leukocyte Esterase (Negative) 02/12/18 Range/Units 14:24 WBC (3.8-10.6) k/uL RBC (4.30-5.90) m/uL Hgb (13.0-17.5) gm/dL Hct (39.0-53.0) % MCV (80.0-100.0) fL MCH (25.0-35.0) pg MCHC (31.0-37.0) g/dL RDW (11.5-15.5) % Plt Count (150-450) k/uL Neutrophils % % Lymphocytes % % Monocytes % % Eosinophils % % Basophils % % Neutrophils # (1.3-7.7) k/uL Lymphocytes # (1.0-4.8) k/uL Monocytes # (0-1.0) k/uL Eosinophils # (0-0.7) k/uL Basophils # (0-0.2) k/uL Anisocytosis PT (9.0-12.0) sec INR (<1.2) Sodium (137-145) mmol/L Potassium (3.5-5.1) mmol/L Chloride (98-107) mmol/L Carbon Dioxide (22-30) mmol/L Anion Gap mmol/L BUN (9-20) mg/dL Creatinine (0.66-1.25) mg/dL Est GFR (CKD-EPI)AfAm (>60 ml/min/1.73 sqM) Est GFR (CKD-EPI)NonAf (>60 ml/min/1.73 sqM) Glucose (74-99) mg/dL POC Glucose (mg/dL) (75-99) mg/dL POC Glu Public Address System Installer ID Plasma Lactic Acid Del (0.7-2.0) mmol/L Calcium (8.4-10.2) mg/dL Total Bilirubin (0.2-1.3) mg/dL AST (17-59) U/L ALT (21-72) U/L Alkaline Phosphatase (38-126) U/L Troponin I (0.000-0.034) ng/mL Total Protein (6.3-8.2) g/dL Albumin (3.5-5.0) g/dL Urine Color Yellow Urine Appearance Clear (Clear) Urine pH 6.5 (5.0-8.0) Ur Specific Haines 1.015 (1.001-1.035) Urine Protein Negative (Negative) Urine Glucose (UA) Negative (Negative) Urine Ketones Negative (Negative) Urine Blood Negative (Negative) Urine Nitrite Negative (Negative) Urine Bilirubin Negative (Negative) Urine Urobilinogen <2.0 (<2.0) mg/dL Ur Leukocyte Esterase Negative (Negative) Disposition Clinical Impression: Transient cerebral ischemia Disposition: HOME SELF-CARE Condition: Fair Instructions: Transient Ischemic Attack (ED) Is patient prescribed a controlled substance at discharge?: No Referrals: Rick Luke MD [Primary Care Provider] - 1-2 days Dino Mcghee MD [STAFF PHYSICIAN] - 1-2 days Time of Disposition: 16:34
[2018-02-12 14:24] LABS: Anisocytosis Slight; Basophils % (A) 1 %; Eosinophils # (A) 0.2 k/uL (0-0.7); Eosinophils % (A) 4 %; HCT 34.9 % (39.0-53.0); Lymphocytes # (A) 1.8 k/uL (1.0-4.8); Lymphocytes % (A) 38 %; MCHC 31.6 g/dL (31.0-37.0); MCV 91.8 fL (80.0-100.0); Mean Platelet Volume 7.4; Monocytes # (A) 0.3 k/uL (0-1.0); Monocytes % (A) 6 %; Neutrophils # (A) 2.3 k/uL (1.3-7.7); Neutrophils % (A) 49 %; Platelet Count 262 k/uL (150-450); RDW 17.6 % (11.5-15.5); WBC 4.8 k/uL (3.8-10.6)
[2018-02-12 14:34] LABS: Prothrombin Time 9.7 sec (9.0-12.0)
[2018-02-12 14:35] LABS: Albumin 4.1 g/dL (3.5-5.0); Calcium 9.7 mg/dL (8.4-10.2); Potassium 4.6 mmol/L (3.5-5.1); Total Bilirubin 0.4 mg/dL (0.2-1.3); Total Protein 7.6 g/dL (6.3-8.2)
[2018-02-12 14:40] LABS: Appearance,Urine Clear (Clear); Bilirubin,Urine Negative (Negative); Blood,Urine Negative (Negative); Color,Urine Yellow; Glucose,Urine (UA) Negative (Negative); Ketones,Urine Negative (Negative); Leukocyte Esterase,Urine Negative (Negative); Nitrite,Urine Negative (Negative); PH, Urine 6.5 (5.0-8.0); Protein,Urine Negative (Negative); Specific Gravity,Urine 1.015 (1.001-1.035); Urobilinogen,Urine <2.0 mg/dL (<2.0)
--- NOTE | 2018-02-12 16:07 | CT ---
EXAMINATION TYPE: CT brain wo con DATE OF EXAM: 02/12/2018 COMPARISON: 12/06/2017 HISTORY: Dizziness and shortness of breath. CT DLP: 1111 mGycm Automated exposure control for dose reduction was used. TECHNIQUE: CT scan of the head is performed without contrast. FINDINGS: There is no acute intracranial hemorrhage or midline shift identified. Multiple old lacun ar injuries are seen of the right basal ganglia, right tipton radiata and anterior limb of the left i nternal capsule. There is diffuse ventricular and sulcal prominence consistent with diffuse age-relat ed cerebral atrophy. There is low-attenuation in the periventricular white matter consistent with ch ronic small vessel ischemic change. The globes are intact and the visualized sinuses are clear. 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 Mastoid air cells are well aerated. Atherosclerosis is seen of the intracranial vasculature. IMPRESSION: 1. No acute intracranial hemorrhage or midline shift. 2. Diffuse age-related cerebral atrophy and chronic small vessel ischemic change in addition to multi focal old lacunar injuries.
--- NOTE | 2018-02-12 16:17 | XR ---
EXAMINATION TYPE: XR chest 2V DATE OF EXAM: 02/12/2018 COMPARISON: NONE HISTORY: syncope TECHNIQUE: Frontal and lateral views of the chest are obtained. FINDINGS: There is no focal air space opacity, pleural effusion, or pneumothorax seen. The cardiac silhouette size is within normal limits. The aorta is tortuous and dense. The osseous structures are intact. IMPRESSION: No acute cardiopulmonary process.
[2018-02-12 16:51] VITALS: BP 157/91; PULSE 66; RESP 19; TEMP 98
== END 2018-02-12 16:50 | disposition home or self-care (01) ==
LOC: EC 13:01
DX: G45.9 Transient cerebral ischemic attack, unspecified (principal); E78.5 Hyperlipidemia, unspecified; I10 Essential (primary) hypertension; K21.9 Gastro-esophageal reflux disease without esophagitis; M19.90 Unspecified osteoarthritis, unspecified site; N40.0 Benign prostatic hyperplasia without lower urinary tract symptoms; Z87.891 Personal history of nicotine dependence; Z79.02 Long term (current) use of antithrombotics/antiplatelets; Z79.82 Long term (current) use of aspirin; Z79.899 Other long term (current) drug therapy; Z98.890 Other specified postprocedural states; Z82.3 Family history of stroke
CPT/HCPCS: 36415; 70450; 71046; 80053; 81003; 83605; 84484; 85025; 85610; 93005; 99285

== ENCOUNTER 2018-02-18 10:00 | Observation (INO) | payer MEDICARE, BC ==
[2018-02-18] MEDS ORDERED: SODIUM CHLORIDE 0.9% 1,000 ML IV STA (10:15)
--- NOTE | 2018-02-18 10:18 | ED ---
General Adult HPI - General Chief complaint: Syncope Stated complaint: syncope Time Seen by Provider: 02/18/18 10:11 Source: patient, RN notes reviewed Mode of arrival: EMS Limitations: no limitations - History of Present Illness Initial comments: Patient is a pleasant 67-year-old male presenting to the emergency department following syncopal versus near syncopal episode. Episode occurred at his doctor 's office in the waiting room. Patient felt dizzy and like he was going to pass out. believes he may have passed out for just a second. Patient feels normal at this time. No confusion except regarding what occurred during this episode. No weakness. Patient believes he may have had similar symptoms previously. - Related Data Home Medications Medication Instructions Recorded Confirmed Atorvastatin [Lipitor] 80 mg PO HS 05/26/17 02/18/18 Cholecalciferol [Vitamin D3] 1,000 unit PO QAM 05/26/17 02/18/18 Ipratropium-Albuterol Nebulize 3 ml INHALATION RT-Q6H PRN 05/26/17 02/18/18 [Duoneb 0.5 mg-3 mg/3 ml Soln] Tamsulosin HCl [Flomax] 0.4 mg PO QAM 05/26/17 02/18/18 amLODIPine [Norvasc] 10 mg PO QAM 05/26/17 02/18/18 Ferrous Sulfate [Feosol] 325 mg PO DAILY 06/29/17 02/18/18 Ranitidine HCl [Zantac] 150 mg PO BID 07/13/17 02/18/18 Sertraline [Zoloft] 25 mg PO DAILY 08/28/17 02/18/18 Tolterodine Tartrate [Detrol LA] 4 mg PO DAILY 08/28/17 02/18/18 Albuterol Inhaler [Ventolin Hfa 2 puff INHALATION RT-Q6H PRN 12/06/17 02/18/18 Inhaler] Aspirin EC [Ecotrin Low Dose] 81 mg PO DAILY 02/12/18 02/18/18 Docusate [Colace] 100 mg PO DAILY PRN 02/12/18 02/18/18 Previous Rx's Medication Instructions Recorded Clopidogrel [Plavix] 75 mg PO DAILY #30 tab 11/24/17 Allergies Allergy/AdvReac Type Severity Reaction Status Date / Time No Known Allergies Allergy Verified 02/18/18 10:25 Review of Systems ROS Statement: Those systems with pertinent positive or pertinent negative responses have been documented in the HPI. ROS Other: All systems not noted in ROS Statement are negative. Constitutional: Denies: fever Eyes: Denies: eye pain ENT: Denies: ear pain Respiratory: Denies: cough, dyspnea Cardiovascular: Denies: chest pain Endocrine: Denies: fatigue Gastrointestinal: Denies: abdominal pain Genitourinary: Denies: dysuria Musculoskeletal: Denies: back pain Skin: Denies: rash Neurological: Denies: headache, confusion Past Medical History Past Medical History: COPD, CVA/TIA, GERD/Reflux, Hyperlipidemia, Hypertension, Musculoskeletal Disorder, Prostate Disorder, Renal Disease, Sleep Apnea/CPAP/ BIPAP Additional Past Medical History / Comment(s): pt has minimal L sided weaknes/ facial droop, TIAs, past gastric ulcer, chronic renal disease stage II, ROSA ( waiting for Cpap machine), past R foot 3rd toe osteomyelitis, arthritis multiple joints, R eye cataract, UTI, BPH. History of Any Multi-Drug Resistant Organisms: None Reported Past Surgical History: Hernia Repair, Joint Replacement, Orthopedic Surgery Additional Past Surgical History / Comment(s): RT TOTAL KNEE,past peg tube- since removed. intracranial angioplasty at [facility] on 06/01/2017, colonoscopies. Past Anesthesia/Blood Transfusion Reactions: No Reported Reaction Past Psychological History: No Psychological Hx Reported Smoking Status: Former smoker Past Alcohol Use History: None Reported Past Drug Use History: None Reported - Past Family History Mother Family Medical History: CVA/TIA, Diabetes Mellitus, Hyperlipidemia, Hypertension Father Family Medical History: CVA/TIA, Hypertension General Exam Limitations: no limitations General appearance: alert, in no apparent distress Head exam: Present: atraumatic Eye exam: Present: normal appearance, PERRL, EOMI ENT exam: Present: normal oropharynx Neck exam: Present: normal inspection Respiratory exam: Present: normal lung sounds bilaterally Cardiovascular Exam: Present: regular rate, normal rhythm GI/Abdominal exam: Present: soft. Absent: tenderness Extremities exam: Present: normal inspection Neurological exam: Present: alert, CN II-XII intact (Except for left facial droop which patient states is chronic) Expanded Neurological exam: Present: protecting the airway Patient oriented to: Present: person, place, time Speech: Present: fluid speech Cranial nerves: EOM's Intact: Normal Cerebellar function: Finger to Nose: Normal Motor strength exam: RUE: 5, LUE: 5, RLE: 5, LLE: 5 Eye Response: (4) open spontaneously Motor Response: (6) obeys commands Verbal Response: (5) oriented Psychiatric exam: Present: normal affect, normal mood Skin exam: Present: normal color Course Vital Signs 02/18/18 02/18/18 10:03 10:25 Temperature 97.2 F L Pulse Rate 63 Respiratory 18 20 Rate Blood Pressure 144/73 O2 Sat by Pulse 100 Oximetry EKG Findings - EKG Comments: EKG Findings:: Normal sinus rhythm 63. IN 180. QRS 82. QT 420. QTc 429. Normal axis. Normal QRS. No acute ST change. Medical Decision Making - Lab Data Result diagrams: 02/18/18 10:25 02/18/18 10:25 Lab Results 02/18/18 02/18/18 02/18/18 Range/Units 10:25 10:25 10:25 WBC 4.9 (3.8-10.6) k/uL RBC 3.40 L (4.30-5.90) m/uL Hgb 10.0 L (13.0-17.5) gm/dL Hct 31.3 L (39.0-53.0) % MCV 92.1 (80.0-100.0) fL MCH 29.5 (25.0-35.0) pg MCHC 32.0 (31.0-37.0) g/dL RDW 17.6 H (11.5-15.5) % Plt Count 247 (150-450) k/uL Neutrophils % 54 % Lymphocytes % 33 % Monocytes % 7 % Eosinophils % 3 % Basophils % 1 % Neutrophils # 2.7 (1.3-7.7) k/uL Lymphocytes # 1.6 (1.0-4.8) k/uL Monocytes # 0.3 (0-1.0) k/uL Eosinophils # 0.1 (0-0.7) k/uL Basophils # 0.0 (0-0.2) k/uL Anisocytosis Slight PT (9.0-12.0) sec INR (<1.2) APTT (22.0-30.0) sec Sodium 140 (137-145) mmol/L Potassium 3.3 L (3.5-5.1) mmol/L Chloride 101 (98-107) mmol/L Carbon Dioxide 30 (22-30) mmol/L Anion Gap 9 mmol/L BUN 18 (9-20) mg/dL Creatinine 1.36 H (0.66-1.25) mg/dL Est GFR (CKD-EPI)AfAm 61 (>60 ml/min/1.73 sqM) Est GFR (CKD-EPI)NonAf 53 (>60 ml/min/1.73 sqM) Glucose 118 H (74-99) mg/dL Calcium 9.5 (8.4-10.2) mg/dL Total Bilirubin 0.2 (0.2-1.3) mg/dL AST 22 (17-59) U/L ALT 31 (21-72) U/L Alkaline Phosphatase 99 (38-126) U/L Total Creatine Kinase 86 (55-170) U/L CK-MB (CK-2) 0.7 (0.0-2.4) ng/mL CK-MB (CK-2) Rel Index 0.8 Troponin I <0.012 (0.000-0.034) ng/mL Total Protein 6.9 (6.3-8.2) g/dL Albumin 3.9 (3.5-5.0) g/dL 02/18/18 Range/Units 10:25 WBC (3.8-10.6) k/uL RBC (4.30-5.90) m/uL Hgb (13.0-17.5) gm/dL Hct (39.0-53.0) % MCV (80.0-100.0) fL MCH (25.0-35.0) pg MCHC (31.0-37.0) g/dL RDW (11.5-15.5) % Plt Count (150-450) k/uL Neutrophils % % Lymphocytes % % Monocytes % % Eosinophils % % Basophils % % Neutrophils # (1.3-7.7) k/uL Lymphocytes # (1.0-4.8) k/uL Monocytes # (0-1.0) k/uL Eosinophils # (0-0.7) k/uL Basophils # (0-0.2) k/uL Anisocytosis PT 9.7 (9.0-12.0) sec INR 1.0 (<1.2) APTT 20.1 L (22.0-30.0) sec Sodium (137-145) mmol/L Potassium (3.5-5.1) mmol/L Chloride (98-107) mmol/L Carbon Dioxide (22-30) mmol/L Anion Gap mmol/L BUN (9-20) mg/dL Creatinine (0.66-1.25) mg/dL Est GFR (CKD-EPI)AfAm (>60 ml/min/1.73 sqM) Est GFR (CKD-EPI)NonAf (>60 ml/min/1.73 sqM) Glucose (74-99) mg/dL Calcium (8.4-10.2) mg/dL Total Bilirubin (0.2-1.3) mg/dL AST (17-59) U/L ALT (21-72) U/L Alkaline Phosphatase (38-126) U/L Total Creatine Kinase (55-170) U/L CK-MB (CK-2) (0.0-2.4) ng/mL CK-MB (CK-2) Rel Index Troponin I (0.000-0.034) ng/mL Total Protein (6.3-8.2) g/dL Albumin (3.5-5.0) g/dL - Radiology Data Radiology results: report reviewed (Computed tomography scan of the brain shows no acute process), image reviewed (Chest x-ray shows no acute process) Disposition Clinical Impression: Syncope Disposition: ADMITTED IP TO THIS [facility] Is patient prescribed a controlled substance at d/c from ED?: No Referrals: Rick Luke MD [Primary Care Provider] - 1-2 days Decision Time: 12:12
[2018-02-18 10:37] LABS: Anisocytosis Slight; Basophils % (A) 1 %; Eosinophils # (A) 0.1 k/uL (0-0.7); Eosinophils % (A) 3 %; HCT 31.3 % (39.0-53.0); Lymphocytes # (A) 1.6 k/uL (1.0-4.8); Lymphocytes % (A) 33 %; MCH 29.5 pg (25.0-35.0); MCV 92.1 fL (80.0-100.0); Mean Platelet Volume 7.2; Monocytes # (A) 0.3 k/uL (0-1.0); Monocytes % (A) 7 %; Neutrophils # (A) 2.7 k/uL (1.3-7.7); Neutrophils % (A) 54 %; Platelet Count 247 k/uL (150-450); RDW 17.6 % (11.5-15.5); WBC 4.9 k/uL (3.8-10.6)
[2018-02-18 10:52] LABS: Prothrombin Time 9.7 sec (9.0-12.0)
[2018-02-18 11:06] LABS: Partial Thromboplastin Time 20.1 sec (22.0-30.0)
[2018-02-18 11:08] LABS: Albumin 3.9 g/dL (3.5-5.0); Calcium 9.5 mg/dL (8.4-10.2); Creatine Kinase 86 U/L (55-170); Total Bilirubin 0.2 mg/dL (0.2-1.3); Total Protein 6.9 g/dL (6.3-8.2)
--- NOTE | 2018-02-18 11:10 | XR ---
EXAMINATION TYPE: XR chest 2V DATE OF EXAM: 02/18/2018 COMPARISON: 02/12/2018 HISTORY: Recurrent syncope and dizziness TECHNIQUE: Frontal and lateral views of the chest are obtained. FINDINGS: There is no focal air space opacity, pleural effusion, or pneumothorax seen. The cardiac silhouette size is within normal limits. The osseous structures are intact. Minimal multilevel dege nerative changes of the thoracic spine are noted. IMPRESSION: No acute cardiopulmonary process.
--- NOTE | 2018-02-18 11:13 | CT ---
EXAMINATION TYPE: CT brain wo con DATE OF EXAM: 02/18/2018 COMPARISON: 02/12/2018 and 12/06/2017 HISTORY: 67-year-old male Syncope TECHNIQUE: Examination was done in axial plane without intravenous contrast. Coronal and sagittal r econstructions performed. CT DLP: 1047.10 mGycm Automated exposure control for dose reduction was used. FINDINGS: There is no evidence of acute intracranial hemorrhage, acute ischemic changes, mass, mass-effect, or extra-axial fluid collection. There is no effacement of cerebral sulci or basal subarachnoid cister ns. There is no hydrocephalus. There is no midline shift. Gomez-white matter distinction is preserv ed. Moderate to severe confluent white matter hypodensities in both cerebral hemispheres with some focal white matter encephalomalacia in the right-sided centrum semiovale, which is unchanged. Mild generali zed supratentorial volume loss. Old lacunar infarcts in the basal ganglia. Paranasal sinuses and mastoid air cells well pneumatized. Orbits and globes are intact. IMPRESSION: No acute intracranial abnormality seen. Similar mild generalized cerebral atrophy and moderate to sev ere changes of chronic small vessel ischemic disease.
[2018-02-18 11:15] LABS: Potassium 3.3 mmol/L (3.5-5.1)
[2018-02-18 11:20] LABS: Creatine Kinase MB 0.7 ng/mL (0.0-2.4); Troponin I <0.012 ng/mL (0.000-0.034)
[2018-02-18] MEDS ORDERED: NALOXONE 0.4 MG/ML 1 ML VIAL IV PRN ×2 (12:12→17:14)
[2018-02-18] MEDS ORDERED: SODIUM CHLORIDE 0.9% 1,000 ML IV SCH (12:15)
[2018-02-18 13:43] LABS: Appearance,Urine Clear (Clear); Bilirubin,Urine Negative (Negative); Blood,Urine Negative (Negative); Color,Urine Yellow; Glucose,Urine (UA) Negative (Negative); Ketones,Urine Negative (Negative); Leukocyte Esterase,Urine Negative (Negative); Nitrite,Urine Negative (Negative); Protein,Urine Trace (Negative); Specific Gravity,Urine 1.015 (1.001-1.035); Urobilinogen,Urine <2.0 mg/dL (<2.0)
[2018-02-18 15:09] VITALS: RESP 16
[2018-02-18] MEDS ORDERED: DOCUSATE 100 MG CAP PO PRN (17:04)
[2018-02-18] MEDS ORDERED: IPRATROPIUM-ALBUTEROL 3 ML NEB INHALATION PRN (17:04)
[2018-02-18] MEDS ORDERED: ALBUTEROL NEBULIZED 2.5 MG/3 ML INHALATION PRN (17:04)
[2018-02-18] MEDS ORDERED: ONDANSETRON 4 MG/2 ML VIAL IVP PRN (17:14)
[2018-02-18] MEDS ORDERED: MAGNESIUM HYDROXIDE 2,400 MG/10 ML CUP PO PRN (17:14)
[2018-02-18] MEDS ORDERED: LACTULOSE 20 GM/30 ML CUP PO PRN (17:14)
[2018-02-18] MEDS ORDERED: CALCIUM CARBONATE 500 MG CHEWABLE PO PRN (17:14)
[2018-02-18] MEDS ORDERED: ALPRAZolam 0.25 MG TAB PO PRN (17:14)
[2018-02-18] MEDS ORDERED: MELATONIN 3 MG TABLET PO PRN (17:14)
[2018-02-18] MEDS ORDERED: ACETAMINOPHEN TAB 325 MG TAB PO PRN (17:14)
--- NOTE | 2018-02-18 17:59 | HP ---
HISTORY AND PHYSICAL DATE OF SERVICE: 02/18/2018 PRESENTING COMPLAINT: Passed out. HISTORY OF PRESENTING COMPLAINT: This is a pleasant 67-year-old patient, well known to me. He follows with Dr. Luke. Chronic stable medical conditions include hypertension, hyperlipidemia, osteoporosis, GERD, COPD, gastric ulcer, and history of multiple TIAs and cerebral stent. The patient has a focal severe M2 origin stenosis that was diagnosed at [facility], and he did have a stent placed there. Patient was there in October of this year. The stent was found to be patent. Patient has a CPAP machine he does not use and actually snores quite a bit in the morning. Normally patient wakes up around anywhere from noon to 1:00 Patient had an early 8:[address] Luke's office and was there in the morning. He was sitting up on the examining table and patient felt he was going to pass out and actually then fell backwards. Patient was not out for too long. There was no shaking or tongue-biting. Patient did come around. Dr. Luke then sent him down here. His blood pressure was found to be low, down in the 80s at that time. There was no chest pain, no palpitation. No arrhythmia was reported. REVIEW OF SYSTEMS: CONSTITUTIONAL: None. HEENT: None. RESPIRATORY: None. CARDIOVASCULAR: None. GASTROINTESTINAL: None. GENITOURINARY: None. MUSCULOSKELETAL: Pain in different joints. DERMATOLOGICAL: None. HEMATOLOGICAL: None. LYMPHATICS: None. PSYCHIATRY: A bit forgetful. NEUROLOGICAL: No focal weakness. PAST MEDICAL HISTORY: 1. Multiple strokes and TIAs and focal severe M2 origin stenosis with angioplasty and stent done at [facility]. 2. Hypertension. 3. Hyperlipidemia. 4. Osteoarthritis. 5. GERD. 6. COPD. 7. Right third toe osteomyelitis. 8. Gastric ulcer. 9. PEG tube in the past. 10.Hernia repair. 11.Joint replacement. 12.Right total knee replacement. ALLERGIES: NONE. SOCIAL HISTORY: Patient stopped smoking about a year ago; smoked a pack a day for 30 years. . Does use a cane. Alcohol rarely. FAMILY HISTORY: Stroke, diabetes, hyperlipidemia, hypertension. HOME MEDICATIONS: 1. Norvasc 10 mg p.o. daily. 2. Detrol LA 4 mg p.o. daily. 3. Flomax 0.4 mg p.o. daily. 4. Zoloft 25 mg p.o. daily. 5. Zantac 150 mg p.o. b.i.d. 6. DuoNeb q.6 p.r.n. 7. Iron 325 p.o. daily. 8. Colace 100 mg p.o. daily p.r.n. 9. Plavix 75 mg p.o. daily. 10.Vitamin D3 1000 units p.o. daily. 11.Lipitor 80 mg at bedtime. 12.Aspirin 81 mg p.o. daily. 13.Ventolin HFA 2 puffs q.6 p.r.n. PHYSICAL EXAMINATION: Temperature 97.2, pulse 63, respiration 18, blood pressure 144/73, pulse ox 100% on room air. Patient was checked; not orthostatic currently. HEENT: External appearance of nose and ears normal. Oral cavity normal. NECK: JVD not raised. Mass not palpable. RESPIRATORY: Effort normal. LUNGS: Slightly decreased breath sounds. CARDIOVASCULAR: First and second sounds normal. No edema. ABDOMEN: Soft, nontender. Liver and spleen not palpable. LYMPHATIC: No lymph node palpable in neck or axillae. PSYCHIATRY: Alert and oriented x3. Mood and affect normal. NEUROLOGICAL: Pupils equal. Cranial nerves grossly intact. Power and sensation grossly intact. INVESTIGATIONS: White count 4.9, hemoglobin 10, potassium 3.3, BUN 18, creatinine 1.36. ASSESSMENT: 1. Episode of patient passing out while sitting up. This was likely vasovagal. Patient could have been sleep-deprived. Patient does not use a CPAP machine. 2. Obstructive sleep apnea. Patient does not use a CPAP. 3. History of angioplasty and stent to severe M2 origin stenosis at [facility]. 4. Essential hypertension. 5. Hyperlipidemia. 6. Primary osteoarthritis in multiple joints bilaterally. 7. Chronic obstructive pulmonary disease in an ex-smoker. 8. Chronic gait dysfunction; uses a cane. PLAN: Patient will be put on telemetry. Will make sure there is no arrhythmia. Patient was counseled in the presence of his about the importance of using his CPAP. Either will have the family bring it from home or see if one is available in the hospital to set up in the home setting. Patient's telemetry is showing normal sinus rhythm. MMODL / IJN: [id number] /
[2018-02-18] MEDS ORDERED: ATORVASTATIN 80 MG TAB PO SCH (21:00)
[2018-02-18] MEDS: FAMOTIDINE 20 MG TAB PO SCH (21:53)
[2018-02-19] MEDS: FAMOTIDINE 20 MG TAB PO SCH (08:19)
[2018-02-19] MEDS ORDERED: OXYBUTYNIN XL 5 MG TAB.ER.24 PO SCH (09:00)
[2018-02-19] MEDS ORDERED: CLOPIDOGREL 75 MG TAB PO SCH (09:00)
[2018-02-19] MEDS ORDERED: TAMSULOSIN 0.4 MG CAP.ER.24H PO SCH (09:00)
[2018-02-19] MEDS ORDERED: amLODIPine 10 MG TAB PO SCH (09:00)
[2018-02-19] MEDS ORDERED: ASPIRIN 81 MG PO SCH (09:00)
[2018-02-19] MEDS ORDERED: SERTRALINE 25 MG TAB PO SCH (09:00)
[2018-02-19] MEDS ORDERED: FERROUS SULFATE 325 MG TAB PO SCH (12:00)
[2018-02-19 12:02] VITALS: BP 137/73; PULSE 68; TEMP 98.2
--- NOTE | 2018-02-20 08:06 | DS ---
DISCHARGE SUMMARY DATE OF ADMISSION: 02/18/2018 DATE OF DISCHARGE: 02/19/2018 FINAL DIAGNOSES: 1. Syncope likely vasovagal and some sleep deprivation. 2. Obstructive sleep apnea. 3. Angioplasty stent to severe M2 origin stenosis in the brain at [facility]. 4. Essential hypertension. 5. Hyperlipidemia. 6. Primary osteoarthritis in multiple joints bilaterally. 7. Chronic obstructive pulmonary disease in an ex-smoker. 8. Chronic gait dysfunction, uses a cane. HOSPITAL COURSE: This patient normally gets up late in the afternoon around noon, had to go for early doctor's appointment, does not use a CPAP and quite a bit in the morning. He was rather tired and sleepy when he went to doctor's appointment. When he sat up on the doctor's examining table, the patient actually passed out for a short time, did have a bit of drop in blood pressure. The patient did not have any arrhythmia noted here. The blood pressure was stable. This was felt to be vasovagal. The patient is advised to use his CPAP machine. ON EXAM: LUNGS: Decreased breath sounds. CARDIOVASCULAR: First and second sounds normal. DISCHARGE MEDICATIONS: 1. Lipitor 80 mg at bedtime. 2. Vitamin D3, 1000 units p.o. daily. 3. DuoNeb q.6 p.r.n. 4. Flomax 0.4 mg p.o. daily. 5. Norvasc 10 mg p.o. daily. 6. Iron 325 p.o. daily. 7. Zantac 150 mg p.o. b.i.d. 8. Zoloft 25 mg p.o. daily. 9. Detrol LA 4 mg p.o. daily. 10.Plavix 75 mg p.o. daily. 11.Ventolin HFA 2 puffs q.6 p.r.n. 12.Aspirin 81 mg a day. 13.Colace 100 mg p.o. daily p.r.n. DISPOSITION: Home. Follow up with Dr. Luke in 1 week. MMMADALYNL / GALLON: [id number] /
== END 2018-02-19 14:15 | disposition home or self-care (01) ==
LOC: EC 10:00 → 3OBS 12:12
PROVIDERS: ADMIT Hospitalist; ATTEND Hospitalist
DX: R55 Syncope and collapse (principal); Z72.820 Sleep deprivation; G47.33 Obstructive sleep apnea (adult) (pediatric); E78.5 Hyperlipidemia, unspecified; M19.91 Primary osteoarthritis, unspecified site; J44.9 Chronic obstructive pulmonary disease, unspecified; I12.9 Hypertensive chronic kidney disease with stage 1 through stage 4 chronic kidney disease, or unspecified chronic kidney disease; N18.2 Chronic kidney disease, stage 2 (mild); R26.9 Unspecified abnormalities of gait and mobility; M81.0 Age-related osteoporosis without current pathological fracture; K21.9 Gastro-esophageal reflux disease without esophagitis; N40.0 Benign prostatic hyperplasia without lower urinary tract symptoms; R29.810 Facial weakness; R53.1 Weakness; Z87.891 Personal history of nicotine dependence; Z86.73 Personal history of transient ischemic attack (TIA), and cerebral infarction without residual deficits; Z95.828 Presence of other vascular implants and grafts; Z87.11 Personal history of peptic ulcer disease; Z87.440 Personal history of urinary (tract) infections; Z86.19 Personal history of other infectious and parasitic diseases; Z82.49 Family history of ischemic heart disease and other diseases of the circulatory system; Z83.3 Family history of diabetes mellitus; Z79.899 Other long term (current) drug therapy; Z79.82 Long term (current) use of aspirin; Z79.02 Long term (current) use of antithrombotics/antiplatelets
CPT/HCPCS: 99285 ×2; 96360 ×2; 96361 ×5; 36415; 93005; 80053; 82550; 82553; 84484; 85025; 85610; 85730; 81003; 71046; 70450; G0378 ×2

== ENCOUNTER 2018-04-22 13:55 | Inpatient (IN) | payer MEDICARE, BC ==
--- NOTE | 2018-04-22 14:51 | ED ---
General Adult HPI - General Chief complaint: Neuro Symptoms/Deficit Stated complaint: TIA Time Seen by Provider: 04/22/18 14:43 Source: patient, family, RN notes reviewed Mode of arrival: EMS Limitations: no limitations - History of Present Illness Initial comments: Patient is a pleasant 67-year-old male presenting to the emergency department with concerns for TIA or stroke. is present and provides majority of history. Patient does have history of similar episodes multiple times previously. Patient was outside helping to Park the trailer. Patient was leaning over towards the right side and appeared less responsive and off balance. did sit him down. She states patient never loss consciousness. She also feels left face was more weak than normal. Patient states he only felt somewhat lightheaded however does admit that his left arm and leg felt somewhat weak. Patient states he does feel somewhat confused. Symptoms have improved and are near resolved at this time. states face may be slightly more drooped than normal however. - Related Data Home Medications Medication Instructions Recorded Confirmed Atorvastatin [Lipitor] 80 mg PO HS 05/26/17 04/22/18 Cholecalciferol [Vitamin D3] 1,000 unit PO QAM 05/26/17 04/22/18 Tamsulosin HCl [Flomax] 0.4 mg PO QAM 05/26/17 04/22/18 amLODIPine [Norvasc] 10 mg PO QAM 05/26/17 04/22/18 Ferrous Sulfate [Feosol] 325 mg PO BID 06/29/17 04/22/18 Ranitidine HCl [Zantac] 150 mg PO BID 07/13/17 04/22/18 Sertraline [Zoloft] 25 mg PO DAILY 08/28/17 04/22/18 Tolterodine Tartrate [Detrol LA] 4 mg PO DAILY 08/28/17 04/22/18 Aspirin EC [Ecotrin Low Dose] 81 mg PO DAILY 02/12/18 04/22/18 Docusate [Colace] 100 mg PO DAILY PRN 02/12/18 04/22/18 Previous Rx's Medication Instructions Recorded Clopidogrel [Plavix] 75 mg PO DAILY #30 tab 11/24/17 Allergies Allergy/AdvReac Type Severity Reaction Status Date / Time No Known Allergies Allergy Verified 04/22/18 15:19 Review of Systems ROS Statement: Those systems with pertinent positive or pertinent negative responses have been documented in the HPI. ROS Other: All systems not noted in ROS Statement are negative. Constitutional: Denies: fever Eyes: Denies: eye pain ENT: Denies: ear pain Respiratory: Denies: cough Cardiovascular: Denies: chest pain Endocrine: Denies: fatigue Gastrointestinal: Denies: abdominal pain Genitourinary: Denies: dysuria Musculoskeletal: Denies: back pain Skin: Denies: rash Neurological: Reports: weakness, confusion. Denies: headache Past Medical History Past Medical History: COPD, CVA/TIA, Eye Disorder, GERD/Reflux, Hyperlipidemia, Hypertension, Osteoarthritis (OA), Prostate Disorder, Renal Disease, Sleep Apnea /CPAP/BIPAP Additional Past Medical History / Comment(s): Multiple TIAs, CVA 01/2017 with dysphagia-peg tube inserted and now out, chronic kidney disease stage II, BPH, Uti, ROSA has Cpap but does not tolerate it, gastric ulcer, R eye cataract, R foot 3rd toe osteomylitis, arthritis multiple joints, past gastric ulcer, recent shingelles-healed per pt. History of Any Multi-Drug Resistant Organisms: None Reported Past Surgical History: Hernia Repair, Joint Replacement Additional Past Surgical History / Comment(s): 06/01/17 intracranial angioplasty HFH, EGD with peg tube insertion since removed, R inguinal hernia repair, R total knee arthroplasty, colonoscopies with last one in 2014-normal. Past Anesthesia/Blood Transfusion Reactions: No Reported Reaction Past Psychological History: No Psychological Hx Reported Smoking Status: Former smoker Past Alcohol Use History: None Reported Past Drug Use History: None Reported - Past Family History Mother Family Medical History: CVA/TIA, Diabetes Mellitus, Hyperlipidemia, Hypertension Father Family Medical History: CVA/TIA, Hypertension General Exam Limitations: no limitations General appearance: alert, in no apparent distress Head exam: Present: atraumatic Eye exam: Present: normal appearance, PERRL, EOMI. Absent: nystagmus ENT exam: Present: normal oropharynx Neck exam: Present: normal inspection Respiratory exam: Present: normal lung sounds bilaterally Cardiovascular Exam: Present: regular rate, normal rhythm GI/Abdominal exam: Present: soft. Absent: tenderness Extremities exam: Present: normal inspection Neurological exam: Present: alert, oriented X3, CN II-XII intact (Except for left facial droop) Expanded Neurological exam: Present: protecting the airway Patient oriented to: Present: person, place, time Cranial nerves: EOM's Intact: Normal, Facial Sensation: Normal, Facial Palsy with Forehead Movement: Abnormal Left Cerebellar function: Finger to Nose: Abnormal Left Sensory exam: Upper Extremity Light Touch: Normal, Lower Extremity Light Touch: Normal Motor strength exam: RUE: 5, LUE: 5, RLE: 5, LLE: 5 Eye Response: (4) open spontaneously Motor Response: (6) obeys commands Verbal Response: (5) oriented Psychiatric exam: Present: normal affect, normal mood Skin exam: Present: normal color Course Vital Signs 04/22/18 04/22/18 04/22/18 14:19 15:13 16:02 Temperature 98.2 F Pulse Rate 89 69 68 Respiratory 18 16 18 Rate Blood Pressure 116/75 119/70 130/80 O2 Sat by Pulse 99 99 97 Oximetry EKG Findings - EKG Comments: EKG Findings:: Normal sinus rhythm 69. TN 186. QRS 88. QT 406. QTc 435. Normal axis. Normal QRS. No acute ST change. Medical Decision Making - Medical Decision Making Patient reevaluated and resting comfortably in bed. Patient and updated on results and plan. Case was discussed in detail with Dr. Null, covering for Dr. Shaw, who admits for Dr. Luke and he will admit - Lab Data Result diagrams: 04/22/18 15:03 04/22/18 15:03 Lab Results 04/22/18 04/22/18 04/22/18 Range/Units 15:03 15:03 15:03 WBC 4.7 (3.8-10.6) k/uL RBC 3.34 L (4.30-5.90) m/uL Hgb 10.1 L (13.0-17.5) gm/dL Hct 31.3 L (39.0-53.0) % MCV 93.7 (80.0-100.0) fL MCH 30.1 (25.0-35.0) pg MCHC 32.1 (31.0-37.0) g/dL RDW 17.7 H (11.5-15.5) % Plt Count 251 (150-450) k/uL Neutrophils % 56 % Lymphocytes % 33 % Monocytes % 6 % Eosinophils % 2 % Basophils % 1 % Neutrophils # 2.7 (1.3-7.7) k/uL Lymphocytes # 1.5 (1.0-4.8) k/uL Monocytes # 0.3 (0-1.0) k/uL Eosinophils # 0.1 (0-0.7) k/uL Basophils # 0.0 (0-0.2) k/uL Anisocytosis Slight PT (9.0-12.0) sec INR (<1.2) APTT (22.0-30.0) sec Sodium 137 (137-145) mmol/L Potassium 3.8 (3.5-5.1) mmol/L Chloride 101 (98-107) mmol/L Carbon Dioxide 27 (22-30) mmol/L Anion Gap 9 mmol/L BUN 24 H (9-20) mg/dL Creatinine 1.50 H (0.66-1.25) mg/dL Est GFR (CKD-EPI)AfAm 55 (>60 ml/min/1.73 sqM) Est GFR (CKD-EPI)NonAf 47 (>60 ml/min/1.73 sqM) Glucose 100 H (74-99) mg/dL Calcium 9.3 (8.4-10.2) mg/dL Total Bilirubin 0.2 (0.2-1.3) mg/dL AST 25 (17-59) U/L ALT 43 (21-72) U/L Alkaline Phosphatase 93 (38-126) U/L Total Creatine Kinase 94 (55-170) U/L CK-MB (CK-2) 1.3 (0.0-2.4) ng/mL CK-MB (CK-2) Rel Index 1.4 Troponin I <0.012 (0.000-0.034) ng/mL Total Protein 6.7 (6.3-8.2) g/dL Albumin 4.0 (3.5-5.0) g/dL 04/22/18 Range/Units 15:03 WBC (3.8-10.6) k/uL RBC (4.30-5.90) m/uL Hgb (13.0-17.5) gm/dL Hct (39.0-53.0) % MCV (80.0-100.0) fL MCH (25.0-35.0) pg MCHC (31.0-37.0) g/dL RDW (11.5-15.5) % Plt Count (150-450) k/uL Neutrophils % % Lymphocytes % % Monocytes % % Eosinophils % % Basophils % % Neutrophils # (1.3-7.7) k/uL Lymphocytes # (1.0-4.8) k/uL Monocytes # (0-1.0) k/uL Eosinophils # (0-0.7) k/uL Basophils # (0-0.2) k/uL Anisocytosis PT 9.9 (9.0-12.0) sec INR 1.0 (<1.2) APTT 25.3 (22.0-30.0) sec Sodium (137-145) mmol/L Potassium (3.5-5.1) mmol/L Chloride (98-107) mmol/L Carbon Dioxide (22-30) mmol/L Anion Gap mmol/L BUN (9-20) mg/dL Creatinine (0.66-1.25) mg/dL Est GFR (CKD-EPI)AfAm (>60 ml/min/1.73 sqM) Est GFR (CKD-EPI)NonAf (>60 ml/min/1.73 sqM) Glucose (74-99) mg/dL Calcium (8.4-10.2) mg/dL Total Bilirubin (0.2-1.3) mg/dL AST (17-59) U/L ALT (21-72) U/L Alkaline Phosphatase (38-126) U/L Total Creatine Kinase (55-170) U/L CK-MB (CK-2) (0.0-2.4) ng/mL CK-MB (CK-2) Rel Index Troponin I (0.000-0.034) ng/mL Total Protein (6.3-8.2) g/dL Albumin (3.5-5.0) g/dL - Radiology Data Radiology results: image reviewed (Computed tomography scan of the brain reveals no acute intercranial abnormality. Severe burden of chronic small vessel ischemic disease. Two-view chest x-ray shows no acute process.) Disposition Clinical Impression: Transient cerebral ischemia Disposition: ADMITTED IP TO THIS HOSP Is patient prescribed a controlled substance at d/c from ED?: No Referrals: Rick Luke MD [Primary Care Provider] - 1-2 days Decision Time: 16:16
[2018-04-22 15:17] LABS: Anisocytosis Slight; Basophils % (A) 1 %; Eosinophils # (A) 0.1 k/uL (0-0.7); Eosinophils % (A) 2 %; HCT 31.3 % (39.0-53.0); HGB 10.1 gm/dL (13.0-17.5); Lymphocytes # (A) 1.5 k/uL (1.0-4.8); Lymphocytes % (A) 33 %; MCH 30.1 pg (25.0-35.0); MCHC 32.1 g/dL (31.0-37.0); MCV 93.7 fL (80.0-100.0); Mean Platelet Volume 7.1; Monocytes # (A) 0.3 k/uL (0-1.0); Monocytes % (A) 6 %; Neutrophils # (A) 2.7 k/uL (1.3-7.7); Neutrophils % (A) 56 %; Platelet Count 251 k/uL (150-450); RBC 3.34 m/uL (4.30-5.90); RDW 17.7 % (11.5-15.5); WBC 4.7 k/uL (3.8-10.6)
[2018-04-22 15:24] LABS: Partial Thromboplastin Time 25.3 sec (22.0-30.0); Prothrombin Time 9.9 sec (9.0-12.0)
[2018-04-22 15:26] LABS: Calcium 9.3 mg/dL (8.4-10.2); Potassium 3.8 mmol/L (3.5-5.1); Total Bilirubin 0.2 mg/dL (0.2-1.3); Total Protein 6.7 g/dL (6.3-8.2)
[2018-04-22 15:48] LABS: Creatine Kinase 94 U/L (55-170)
[2018-04-22 15:59] LABS: Creatine Kinase MB 1.3 ng/mL (0.0-2.4); Troponin I <0.012 ng/mL (0.000-0.034)
--- NOTE | 2018-04-22 16:08 | XR ---
EXAMINATION TYPE: XR chest 2V DATE OF EXAM: 04/22/2018 COMPARISON: prior chest x-ray dated 02/18/2018 HISTORY: Altered mental status, dizziness TECHNIQUE: Frontal and lateral views of the chest are obtained. FINDINGS: The patient is rotated, there are overlying cardiac leads. Lung volumes are increased sugge sting COPD. Aorta is dense. There is no focal air space opacity, pleural effusion, or pneumothorax s een. The cardiac silhouette size is within normal limits. The osseous structures are intact. IMPRESSION: No acute cardiopulmonary process.
--- NOTE | 2018-04-22 16:08 | CT ---
EXAMINATION TYPE: CT brain wo con DATE OF EXAM: 04/22/2018 COMPARISON: 02/18/2018 HISTORY: 67-year-old male neurologic deficits Left sided weakness and confusion. TECHNIQUE: Examination was done in axial plane without intravenous contrast. Coronal and sagittal r econstructions performed. CT DLP: 1071.8 mGycm Automated exposure control for dose reduction was used. FINDINGS: There is no evidence of acute intracranial hemorrhage, acute ischemic changes, mass, mass-effect, or extra-axial fluid collection. There is no effacement of cerebral sulci or basal subarachnoid cister ns. There is no hydrocephalus. There is no midline shift. Gomez-white matter distinction is preserv ed. Mild generalized supratentorial volume loss and redemonstrated severe confluent white matter hypodens ities. Old lacunar infarcts in the bilateral basal ganglia. Mild mucosal thickening ethmoid air cells and left maxillary sinus and frontal opacification right sp henoid sinus. Mastoid air cells well pneumatized. Orbits and globes are intact. IMPRESSION: 1. No acute intracranial abnormality seen. 2. Severe confluent burden of chronic small vessel ischemic disease. If concern for subtle acute isc hemia, consider MRI. 3. Frothy opacification right sphenoid sinus can be seen in the setting of acute sinusitis.
[2018-04-22] MEDS ORDERED: ASPIRIN 325 MG TAB PO STA (16:16)
[2018-04-22] MEDS ORDERED: SODIUM CHLORIDE 0.9% 1,000 ML IV SCH (16:30)
[2018-04-22 18:21] VITALS: RESP 18
--- NOTE | 2018-04-22 21:53 | CONS ---
CONSULTATION DATE OF CONSULTATION: 04/22/2018 CHIEF COMPLAINT: Transient ischemic attack. HISTORY OF PRESENT ILLNESS: Mr. Sesay is a pleasant 67-year-old -[place] male who was being evaluated by the neurology service per the request of Dr. Null for a transient ischemic attack. The patient was brought into [facility] Emergency Room after his family noticed that he was having weakness on his left side involving his left arm and leg. He was also noticed to have some facial drooping more than the existing facial drooping that he has. The patient does have a previous history of stroke. The patient was also noticed to be somewhat confused. In the emergency room, a CT scan of the brain was done which showed no acute findings, but there was evidence of severe small vessel disease. His CBC showed anemia with a hemoglobin of 10.1 and hematocrit of 31%. His INR was normal. His comprehensive metabolic profile showed renal insufficiency with a BUN of 24 and creatinine of 1.5. He does have history of chronic renal insufficiency. His cardiac enzymes were negative. At the time of my evaluation, the patient is lying in his bed and appears to be in no acute distress. He reports resolution of his left- sided weakness. His daughter is at bedside and she states that his mentation has returned to baseline. The patient denies any current neurological complaints. Overall, his symptoms lasted approximately 3 hours. The patient does take aspirin and Plavix daily at home. PAST MEDICAL HISTORY: 1. Stroke. 2. Dyslipidemia. 3. Transient ischemic attacks. 4. Chronic obstructive pulmonary disease. 5. Gastroesophageal reflux disease. 6. Dyslipidemia. 7. Hypertension. 8. Arthritis. 9. Chronic renal insufficiency. 10.Obstructive sleep apnea. 11.Cataract surgery. 12.History of osteomyelitis. 13.History of shingles. 14.Gastric ulcers. 15.History of joint replacement surgeries. 16.Hernia repair. SOCIAL HISTORY: The patient is a former smoker. There is no history of any alcohol or drug use. FAMILY HISTORY: Positive for strokes, hypertension, diabetes, dyslipidemia. HOME MEDICATIONS: Reviewed in the chart. ALLERGIES: NO KNOWN DRUG ALLERGIES. REVIEW OF SYSTEMS: CONSTITUTIONAL: Negative. EYES: Positive for chronic diminished vision. ENT: Negative. CARDIOVASCULAR: Negative. RESPIRATORY: Positive for occasional shortness of breath. NEUROLOGICAL: As mentioned above. GASTROINTESTINAL: Positive for occasional heartburn. GENITOURINARY: Negative. PSYCHIATRIC: Negative. ENDOCRINE: Negative. DERMATOLOGICAL: Negative. MUSCULOSKELETAL: Positive for occasional joint pain. PHYSICAL EXAMINATION: Vital signs show a temperature of 98.2, pulse 67, respirations 16, blood pressure 152/85. GENERAL APPEARANCE: The patient is a well-developed, thin -[place] male who appears to be in no acute distress. HEENT: Normocephalic, atraumatic. Mild left facial drooping is seen. NECK: Supple with no masses felt. CARDIOVASCULAR: Regular rate and rhythm. ABDOMEN: Nontender, nondistended. Extremities showed no edema or clubbing. NEUROLOGICAL EXAMINATION: The patient is awake and oriented x3. Speech and language are normal. Strength is 5-/5 in all 4 extremities. Sensory exam was normal to light touch in all 4 extremities. Cranial nerve testing showed mild left facial drooping. No seizure-like activity is seen. No pronator drift is noticed. IMPRESSION: 1. Transient ischemic attack. 2. History of ischemic stroke. 3. Left hemiparesis, resolved. 4. Altered mental status, resolved. 5. Small vessel ischemic disease. 6. Obstructive sleep apnea. 7. Hypertension. 8. Dyslipidemia. RECOMMENDATION: The patient does appear to have suffered a transient ischemic attack with a transient episode of left hemiparesis and altered mental status. Those symptoms have resolved. He continues to have left facial drooping which is due to his old stroke. His CT scan of the brain was reviewed and it showed no acute findings. I will order a fasting lipid panel, carotid Doppler, EEG and serum homocystine level. I will keep him on aspirin and Plavix daily. Continue IV hydration as tolerated. The patient does have multiple risk factors for strokes, as mentioned above. He also has history of obstructive sleep apnea which is not well treated, as he is unable to tolerate CPAP use. Continue the rest of your current workup and management. I will continue to follow with you. Further recommendations to follow. Thank you for allowing me to participate in the care of your patient. If you have any questions, please feel free to contact me. JORDY / GALLON: [id number] /
[2018-04-23] MEDS: SODIUM CHLORIDE 0.9% 1,000 ML IV SCH ×2 (00:22→16:23)
[2018-04-23] MEDS ORDERED: DOCUSATE 100 MG CAP PO PRN (01:10)
[2018-04-23] MEDS ORDERED: ACETAMINOPHEN TAB 500 MG TAB PO PRN (01:11)
[2018-04-23] MEDS ORDERED: ALPRAZolam 0.25 MG TAB PO PRN (01:11)
--- NOTE | 2018-04-23 05:51 | HP ---
HISTORY AND PHYSICAL DATE OF SERVICE: 04/22/2018 CHIEF COMPLAINTS: Weakness and facial droop. HISTORY OF PRESENT ILLNESS: This 67-year-old gentleman with a past medical history of GERD, hypertension, history of DJD, history of sleep apnea, history of multiple TIAs and CVAs, being followed by Dr. Luke in the outpatient setting was noted to have weakness and some facial droop especially on the right side by the family. The patient is off balance and which is going on for a couple of days which increased and the patient is light headed. Because of increasing complications, patient was taken to [facility] and admitted for further evaluation and treatment. Brain CT scan showed chronic small-vessel ischemia severe and otherwise no acute intracranial abnormalities noted. The patient admitted to the hospital for further evaluation and treatment. Neurology evaluation in progress. There is no history of fever, rigors or chills. No history of headache, loss of consciousness or seizures. PAST MEDICAL HISTORY: History of CVA, TIA, COPD, GERD, hypertension, hyperlipidemia, DJD, history of multiple CVAs. MEDICATIONS: Prior to admission include home medications are: 1. Colace 100 mg daily p.r.n. 2. Lipitor 80 mg q.h.s. 3. Norvasc 10 mg p.r.n. 4. Detrol LA 4 mg b.i.d. 5. Flomax 0.4 q.h.s. 6. Zoloft 25 mg p.o. daily. 7. Zantac 150 mg p.o. b.i.d. 8. Iron sulfate 320 mg p.o. b.i.d. 9. Plavix 75 mg daily. 10.Vitamin D 3000 daily. 11.Ecotrin 81 mg daily. ALLERGIES: None. FAMILY HISTORY: History of CVA, diabetes, hypertension, hyperlipidemia in the family. SOCIAL HISTORY: Previous history of smoker. No history of current smoking or alcohol intake. REVIEW OF SYSTEMS: ENT: Diminished vision, diminished hearing. CARDIOVASCULAR: No angina or palpitations. RESPIRATORY: No cough or hemoptysis. GI: No nausea or vomiting. : No dysuria. NERVOUS SYSTEM as mentioned earlier. ALLERGIES/IMMUNOLOGY: No asthma, hayfever. MUSCULOSKELETAL: As mentioned earlier. HEMATOLOGY/ONCOLOGY: No history of anemia. ENDOCRINE: No history of diabetes or hypothyroidism. CONSTITUTIONAL: As mentioned earlier. DERMATOLOGY: Negative. RHEUMATOLOGY: Negative. PSYCHIATRY: As mentioned earlier. PHYSICAL EXAMINATION: GENERAL: The patient is alert, oriented x3. VITAL SIGNS: Pulse 74, blood pressure 161/98, respiration 18, temperature 98.4, pulse ox 98% on room air. HEENT: Conjunctivae normal. Oral mucosa moist. NECK is no jugular venous distention. No carotid bruit. No lymph node enlargement. CARDIOVASCULAR system: S1, S2 muffled. RESPIRATORY: Breath sounds diminished in the bases. No rhonchi. No crackles. ABDOMEN: Soft, nontender. No mass palpable. LEGS: No edema and no swelling. NERVOUS SYSTEM: Higher functions as mentioned earlier. Cranial nerves 2 thru 12 minimal facial deviation on the right side present. Diffuse minimal diffuse weakness, right more than the left present. LYMPHATICS: No lymph nodes palpable in the neck, axillae or groin. SKIN no ulcer, rashes or bleeding. LABS: WBC 4.6, hemoglobin 10.1, creatinine is 1.50. CT scan noted. ASSESSMENT: 1. Weakness and drooping of the face on the left side possible acute transient ischemic attack. 2. History of CVA/TIA. 3. History of chronic obstructive pulmonary disease. 4. History of gastroesophageal reflux disease. 5. Hypertension. 6. Hyperlipidemia. 7. History of degenerative joint disease. 8. History of sleep apnea. 9. History of renal disease. 10.Multiple CVAs and TIAs. 11.History of dysphagia and status post PEG tube. 12.History of hernia repair. RECOMMENDATIONS AND DISCUSSION: In this 67-year-old gentleman who presented with multiple complex medical issues , we will monitor the patient closely, continue the current medications, continue management and symptomatic treatment. Otherwise, at this time, I recommend continue the antiplatelet agents. Resume the home medications. Prognosis guarded. Closely follow with Neurology Dr. Silverio. Further recommendations to follow. Discussed with the patient and family and understands and agrees. MMODL / IJN: [id number] / PIETRO
[2018-04-23 06:36] LABS: Cholesterol 131 mg/dL (<200); HDL Cholesterol 46 mg/dL (40-60); LDL Cholesterol,Calculated 76 mg/dL (0-99); Triglycerides 46 mg/dL (<150)
[2018-04-23] MEDS: TAMSULOSIN 0.4 MG CAP.ER.24H PO SCH (08:36)
[2018-04-23] MEDS: SERTRALINE 25 MG TAB PO SCH (08:36)
[2018-04-23] MEDS: amLODIPine 10 MG TAB PO SCH (08:36)
[2018-04-23] MEDS: ASPIRIN 325 MG TAB PO SCH (08:36)
[2018-04-23] MEDS: CHOLECALCIFEROL 1,000 UNIT TAB PO SCH (08:36)
[2018-04-23] MEDS: FAMOTIDINE 20 MG TAB PO SCH ×2 (08:36→22:05)
[2018-04-23] MEDS: OXYBUTYNIN XL 5 MG TAB.ER.24 PO SCH (08:36)
[2018-04-23] MEDS: CLOPIDOGREL 75 MG TAB PO SCH (08:36)
[2018-04-23] MEDS: FERROUS SULFATE 325 MG TAB PO SCH ×2 (08:36→22:05)
[2018-04-23] MEDS: HEPARIN SODIUM,PORCINE 5,000 UNIT/ML 1 ML VIAL SQ SCH ×2 (08:37→22:05)
[2018-04-23] MEDS ORDERED: NON-FORMULARY DRUG (Aspirin Ec 81 MG) PO SCH (09:00)
--- NOTE | 2018-04-23 10:47 | US ---
EXAMINATION TYPE: US carotid duplex BILAT DATE OF EXAM: 04/23/2018 COMPARISON: US carotid 11/24/2017 CLINICAL HISTORY: TIA. TIA EXAM MEASUREMENTS: RIGHT: Peak Systolic Velocity (PSV) cm/sec ----- Right CCA: 59.1 ----- Right ICA: 64.8 ----- Right ECA: 77.2 ICA/CCA ratio: 1.1 RIGHT: End Diastole cm/sec ----- Right CCA: 15.9 ----- Right ICA: 21.9 ----- Right ECA: 11.4 LEFT: Peak Systolic Velocity (PSV) cm/sec ----- Left CCA: 58.2 ----- Left ICA: 61.5 ----- Left ECA: 60.8 ICA/CCA ratio: 1.1 LEFT: End Diastole cm/sec ----- Left CCA: 9.3 ----- Left ICA: 26.2 ----- Left ECA: 9.2 VERTEBRALS (direction of flow): Right Vertebral: Antegrade Left Vertebral: Antegrade Rhythm: Normal Bilateral intimal thickening, plaque bilateral bulb, no elevated velocities, no significant stenosis. Grayscale, color Doppler, spectral Doppler imaging performed of the carotid arteries. Waveform analys is does not show significant stenosis of the proximal internal carotid arteries. IMPRESSION: No hemodynamic significant stenosis of the proximal internal carotid arteries bilaterall y by Doppler criteria, an indirect measurement of carotid stenosis
--- NOTE | 2018-04-23 15:28 | P.PN ---
Subjective Progress Note Date: 04/23/18 Patient is a pleasant 67-year-old -[place] male who is being followed by the neurology service for transient ischemic attack. Patient was at home and family noticed he was having increased left-sided weakness as well as facial drooping. Patient does have history of previous stroke. Patient was brought to [facility] for further evaluation. Computed tomography scan of the brain was done which showed no acute findings. Computed tomography scan of the brain did show severe small vessel ischemic disease. Patient and family report resolution of left-sided weakness. Patient and family state he is back to baseline. No new neurological complaints. At the time of my evaluation, patient is resting comfortably in bed visiting with family. Objective - Vital Signs Vital signs: Vital Signs Temp 97.4 F L 04/23/18 11:44 Pulse 70 04/23/18 11:44 Resp 18 04/23/18 11:44 BP 134/83 04/23/18 11:44 Pulse Ox 100 04/23/18 11:44 Intake & Output 04/22/18 04/23/18 04/23/18 18:59 06:59 18:59 Intake Total 1277 Balance 1277 Weight 77.111 kg 78.4 kg Intake: Intake, IV Titration 600 Amount Sodium Chloride 0.9% 1, 600 000 ml @ 75 mls/hr IV . [id number] [facility] Rx#:[id number] Oral 677 Other: # Voids 2 - Exam PHYSICAL EXAM: GENERAL APPEARANCE: Patient is a well-developed, -[place] male who appears to be in no acute distress. HEENT: Normocephalic, atraumatic, no facial asymmetry is seen. Neck is supple with no masses felt. CARDIOVASCULAR: Regular rate and rhythm. ABDOMEN: Nontender, nondistended. EXTREMITIES: Show no edema or clubbing. NEUROLOGICAL EXAM: Patient is awake, alert, and oriented 3. Speech is mildly dysarthric and language is normal. Strength is 5-/5 in all 4 extremities. Sensory exam is normal to light touch in all 4 extremities. Patient has mild left facial drooping on cranial nerve testing. No tremors or seizure-like activity noted. - Labs CBC & Chem 7: 04/22/18 15:03 04/22/18 15:03 Labs: Abnormal Lab Results - Last 24 Hours (Table) 04/22/18 04/22/18 Range/Units 15:03 15:03 RBC 3.34 L (4.30-5.90) m/uL Hgb 10.1 L (13.0-17.5) gm/dL Hct 31.3 L (39.0-53.0) % RDW 17.7 H (11.5-15.5) % BUN 24 H (9-20) mg/dL Creatinine 1.50 H (0.66-1.25) mg/dL Glucose 100 H (74-99) mg/dL Assessment and Plan Plan: Impression: 1. Transient ischemic attack 2. History of ischemic stroke 3. Left hemiparesis, resolved 4. Altered mental status, resolved 5. Small vessel ischemic disease 6. Obstructive sleep apnea 7. Hypertension 8. Dyslipidemia Recommendation: Patient does appear to have had a transient ischemic attack with a transient episode of left hemiparesis and altered mental status. As mentioned above, symptoms have resolved. Patient has history of previous stroke with chronic left facial droop. Computed tomography scan of the brain showed no acute findings. I recommend he continue aspirin and Plavix daily. Lipid panel was within normal limits. Serum homocystine level is pending. EEG was done and results are pending. Carotid Doppler was done and showed no hemodynamically significant stenosis. I recommend physical therapy and occupational therapy to evaluate and treat. Continue current medical management. Continue neurological checks. I will continue to follow with you. Further recommendations to follow. I performed an examination of the patient and discussed the management with the BUILD AND DEPLOYMENT ENGINEER. I have reviewed the BUILD AND DEPLOYMENT ENGINEER notes and agree with the findings and plan of care.
--- NOTE | 2018-04-23 17:32 | P.PN ---
Subjective Progress Note Date: 04/23/18 Progress note being dictated for Dr. Church Interval history: This a 67-year-old gentleman admitted with TIA and multiple other medical issues in a patient with history of prior stroke. Neuro workup in progress; EEG pending. Carotid US reporting no hemodynamic significant stenosis. Evaluated by neurology with recommendations noted. Left-sided weakness resolved. Patient states mild dysarthria at baseline. Reports chronic left facial droop from prior stroke, at baseline. Denies chest pain, palpitations or increasing shortness of breath. Denies nausea vomiting or diarrhea. Denies lightheadedness dizziness or focal deficits. Objective - Vital Signs Vital signs: Vital Signs Temp 96.7 F L 04/23/18 16:00 Pulse 74 04/23/18 16:00 Resp 18 04/23/18 16:00 BP 115/69 04/23/18 16:00 Pulse Ox 100 04/23/18 11:44 Intake & Output 04/22/18 04/23/18 04/23/18 18:59 06:59 18:59 Intake Total 1277 Balance 1277 Weight 77.111 kg 78.4 kg Intake: Intake, IV Titration 600 Amount Sodium Chloride 0.9% 1, 600 000 ml @ 75 mls/hr IV . [id number] [facility] Rx#:[id number] Oral 677 Other: # Voids 2 - Exam PHYSICAL EXAM: VITAL SIGNS: [As above] GENERAL: Sitting up in bed, no acute distress HEENT: Conjunctivae normal. eyes normal. Oral mucosa moist. Mild left facial droop. NECK: No JVD. No thyroid enlargement. No LNs CARDIOVASCULAR: S1, S2 muffled. No murmur RESPIRATION: Breath sounds diminished in the bases. No rhonchi or crackles. No bronchial breathing. ABDOMEN: Soft, nontender . No guarding. no masses palpable.Bowel sounds heard. LEGS: No edema. no swelling. PSYCHIATRY: Alert and oriented -3, mood and affect normal. NERVOUS SYSTEM: Mild left facial droop, mild dysarthria. Moves all 4 limbs. Diffuse weakness No focal deficits. No sensory deficit. Skin: no ulcer no rash Joints: No active swelling. No inflammation. Lymphatic system. No LN neck axilla or groin. - Labs CBC & Chem 7: 04/22/18 15:03 04/22/18 15:03 Assessment and Plan Assessment: 1. Weakness, Possible acute left-sided TIA 2. History of multiple CVAs/TIAs with residual chronic left-sided facial droop 3. COPD 4. Gastroesophageal reflux disease Plan: Continue on current medication regime ,monitoring, and symptomatic treatment. Dual anticoagulated on Plavix and aspirin. EEG results pending. Discharge planning in progress for tomorrow pending neurology's clearance. The impression and plan of care has been dictated as directed. : I performed a history and examination of this patient, discussed the same with the dictator. I agree with the dictator's note ,documented as a scribe. Any additional findings or plans will be noted.
--- NOTE | 2018-04-23 18:49 | EEG ---
ELECTROENCEPHALOGRAM REPORT DATE OF SERVICE: 04/23/2018 REASON FOR TESTING: Transient ischemic attack. DESCRIPTION OF THE PROCEDURE: This EEG was performed using a 21-channel digital electroencephalograph, following international 10-20 system. DESCRIPTION OF THE RECORDING: From the beginning of the tracing, and with the patient's eyes closed, the background rhythm was mostly consisting of 8 Hz alpha frequency in the posterior occipital leads. No obvious asymmetry is seen. Photic stimulation was performed with no driving response seen. No pathological waves were elicited. Occasional movement and muscle artifacts are seen. Hyperventilation was not performed. The patient does reach stage II of sleep during the tracing and occasional sleep spindles are seen. No epileptiform discharges were seen. His EKG lead showed a regular rate and rhythm. INTERPRETATION: This asleep and awake EEG can be considered within normal limits. There was no asymmetry seen. No epileptiform discharges were noticed. The absence of epileptiform discharges does not rule out the diagnosis of epilepsy; therefore clinical correlation is recommended. JORDY / MYLENE: [id number] /
[2018-04-23] MEDS ORDERED: ATORVASTATIN 80 MG TAB PO SCH (21:00)
[2018-04-24 02:30] VITALS: PULSE 72
[2018-04-24 08:09] LABS: Anisocytosis Slight; Basophils % (A) 1 %; Eosinophils # (A) 0.2 k/uL (0-0.7); Eosinophils % (A) 3 %; HCT 28.3 % (39.0-53.0); HGB 9.1 gm/dL (13.0-17.5); Lymphocytes % (A) 41 %; MCH 30.2 pg (25.0-35.0); MCHC 32.1 g/dL (31.0-37.0); MCV 94.1 fL (80.0-100.0); Mean Platelet Volume 7.1; Monocytes # (A) 0.4 k/uL (0-1.0); Monocytes % (A) 8 %; Neutrophils # (A) 2.2 k/uL (1.3-7.7); Neutrophils % (A) 44 %; Platelet Count 232 k/uL (150-450); RBC 3.01 m/uL (4.30-5.90); RDW 17.6 % (11.5-15.5)
[2018-04-24 08:20] LABS: Calcium 8.9 mg/dL (8.4-10.2); Potassium 3.8 mmol/L (3.5-5.1)
[2018-04-24] MEDS: CLOPIDOGREL 75 MG TAB PO SCH (11:51)
[2018-04-24] MEDS: ASPIRIN 325 MG TAB PO SCH (11:51)
[2018-04-24] MEDS: amLODIPine 10 MG TAB PO SCH (11:51)
[2018-04-24] MEDS: HEPARIN SODIUM,PORCINE 5,000 UNIT/ML 1 ML VIAL SQ SCH (11:51)
[2018-04-24] MEDS: CHOLECALCIFEROL 1,000 UNIT TAB PO SCH (11:51)
[2018-04-24] MEDS: FERROUS SULFATE 325 MG TAB PO SCH (11:51)
[2018-04-24] MEDS: FAMOTIDINE 20 MG TAB PO SCH (11:51)
[2018-04-24] MEDS: TAMSULOSIN 0.4 MG CAP.ER.24H PO SCH (11:52)
[2018-04-24] MEDS: OXYBUTYNIN XL 5 MG TAB.ER.24 PO SCH (11:52)
[2018-04-24] MEDS: SERTRALINE 25 MG TAB PO SCH (11:52)
[2018-04-24 12:15] VITALS: BP 128/70; TEMP 97.6
--- NOTE | 2018-04-24 15:17 | P.PN ---
Subjective Progress Note Date: 04/24/18 Patient is a pleasant 67-year-old -Citizen Of [place] male who is being followed by the neurology service for transient ischemic attack. Patient was at home and family noticed he was having increased left-sided weakness as well as facial drooping. Patient does have history of previous stroke. Patient was brought to [facility] for further evaluation. Computed tomography scan of the brain was done which showed no acute findings. Computed tomography scan of the brain did show severe small vessel ischemic disease. Patient and family report resolution of left-sided weakness. Patient and family state he is back to baseline. No new neurological complaints. At the time of my evaluation, patient is resting comfortably in bed visiting with family. 04/24/2018 Patient is a pleasant 67-year-old -Citizen Of [place] male who is being followed by the neurology service for transient ischemic attack. Patient has history of ischemic CVA and multiple TIAs. Computed tomography scan of the brain showed no acute process but did show severe small vessel ischemic disease. Patient had carotid Doppler done which showed no hemodynamically significant stenosis. EEG was done and is normal. Patient denies any symptoms consistent with further TIA. At the time of my evaluation, patient is resting comfortably in bed and appears to be in no acute distress. is at the bedside. Objective - Vital Signs Vital signs: Vital Signs Temp 97.6 F 04/24/18 12:12 Pulse 72 04/24/18 12:12 Resp 18 04/24/18 12:12 BP 128/70 04/24/18 12:12 Pulse Ox 99 04/24/18 12:12 Intake & Output 04/23/18 04/24/18 04/24/18 18:59 06:59 18:59 Intake Total 1517 300 480 Balance 1517 300 480 Weight 78.4 kg Intake: Intake, IV Titration 600 Amount Sodium Chloride 0.9% 1, 600 000 ml @ 75 mls/hr IV . [id number] [facility] Rx#:[id number] Oral [phone] Other: Voiding Method Toilet Toilet Urinal Urinal # Voids 1 1 - Exam PHYSICAL EXAM: GENERAL APPEARANCE: Patient is a well-developed, -Citizen Of [place] male who appears to be in no acute distress. HEENT: Normocephalic, atraumatic, mild left facial asymmetry is seen. Neck is supple with no masses felt. CARDIOVASCULAR: Regular rate and rhythm. ABDOMEN: Nontender, nondistended. EXTREMITIES: Show no edema or clubbing. NEUROLOGICAL EXAM: Patient is awake, alert, and oriented 3. Speech is mildly dysarthric and language is normal. Strength is 5-/5 in all 4 extremities. Sensory exam is normal to light touch in all 4 extremities. Patient has mild left facial drooping on cranial nerve testing. No tremors or seizure-like activity noted. - Labs CBC & Chem 7: 04/24/18 05:48 04/24/18 05:48 Labs: Abnormal Lab Results - Last 24 Hours (Table) 04/24/18 Range/Units 05:48 RBC 3.01 L (4.30-5.90) m/uL Hgb 9.1 L (13.0-17.5) gm/dL Hct 28.3 L (39.0-53.0) % RDW 17.6 H (11.5-15.5) % Assessment and Plan Plan: Impression: 1. Transient ischemic attack 2. History of ischemic stroke 3. Left hemiparesis, resolved 4. Altered mental status, resolved 5. Small vessel ischemic disease 6. Obstructive sleep apnea 7. Hypertension 8. Dyslipidemia Recommendation: Patient does appear to have had a transient ischemic attack with a transient episode of left hemiparesis and altered mental status. As mentioned above, symptoms have resolved. Patient has history of previous stroke with chronic left facial droop. Computed tomography scan of the brain showed no acute findings. I recommend he continue aspirin and Plavix daily. Lipid panel was within normal limits. Serum homocystine level is normal. EEG was done and results are pending. Carotid Doppler was done and showed no hemodynamically significant stenosis. Continue current medical management. Continue neurological checks. Patient is stable for discharge from a neurological standpoint. I will continue to follow with you on an as-needed basis. Feel free to call with any questions or concerns. I performed an examination of the patient and discussed the management with the WOOL SCOURER. I have reviewed the WOOL SCOURER notes and agree with the findings and plan of care.
--- NOTE | 2018-04-24 17:26 | DS ---
DISCHARGE SUMMARY DATE OF SERVICE: 04/24/2018 FINAL DIAGNOSES: 1. Weakness, possible acute left-sided transient ischemic attack. 2. History of multiple cerebrovascular accidents, transient ischemic attacks, with mild left-sided facial droop. 3. Chronic obstructive pulmonary disease. 4. Gastroesophageal reflux disease. DISCHARGE DISPOSITION: The patient will be discharged in stable condition with guarded prognosis. HISTORY OF PRESENT ILLNESS: This 67-year-old gentleman with a past medical history of multiple medical problems was admitted with features of TIA. The patient was treated conservatively. Neurovascular workup was negative. Dr. Luke is following the patient closely. Dr. Silverio saw the patient during his hospitalization. On exam, vitals are stable. CARDIOVASCULAR SYSTEM: S1, S2 muffled. ABDOMEN: Soft. NERVOUS SYSTEM: Mild diffuse weakness. DISCHARGE ADVICE AND MEDICATIONS: 1. Diet is cardiac. 2. Activity limited until followup. 3. Follow up with Dr. Luke in 2 to 3 days. 4. Follow up with Dr. Silverio as advised. 5. Norvasc 10 mg each morning. 6. Aspirin 81 mg daily. 7. Lipitor 80 mg at bedtime. 8. Vitamin D3 1000 daily. 9. Colace 100 mg p.o. daily. 10.Iron sulfate 325 mg p.o. b.i.d. 11.Zantac 150 mg p.o. b.i.d. 12.Zoloft 25 mg p.o. daily. 13.Flomax 0.4 each morning. 14.Detrol LA 4 mg p.o. daily. 15.Plavix 75 mg p.o. daily. 16.Lactulose 10 grams p.o. b.i.d. p.r.n. Once again, the patient will be discharged in stable condition with guarded prognosis. MMODL / IJN: [id number] /
== END 2018-04-24 16:14 | disposition home or self-care (01) | DRG 69 ==
LOC: EC 13:55 → 6SEL 16:17 → OBSVTOIN 04-23 18:41
PROVIDERS: ADMIT Internal Medicine; ATTEND Internal Medicine
DX: G45.9 Transient cerebral ischemic attack, unspecified (principal); G81.94 Hemiplegia, unspecified affecting left nondominant side; R29.700 NIHSS score 0; E78.5 Hyperlipidemia, unspecified; D64.9 Anemia, unspecified; G47.33 Obstructive sleep apnea (adult) (pediatric); J44.9 Chronic obstructive pulmonary disease, unspecified; K21.9 Gastro-esophageal reflux disease without esophagitis; Z96.60 Presence of unspecified orthopedic joint implant; M19.90 Unspecified osteoarthritis, unspecified site; I12.9 Hypertensive chronic kidney disease with stage 1 through stage 4 chronic kidney disease, or unspecified chronic kidney disease; N18.2 Chronic kidney disease, stage 2 (mild); I69.392 Facial weakness following cerebral infarction; Z79.82 Long term (current) use of aspirin; Z79.02 Long term (current) use of antithrombotics/antiplatelets; Z82.3 Family history of stroke; Z83.3 Family history of diabetes mellitus; Z86.19 Personal history of other infectious and parasitic diseases; Z82.49 Family history of ischemic heart disease and other diseases of the circulatory system; Z87.11 Personal history of peptic ulcer disease; Z87.891 Personal history of nicotine dependence
CPT/HCPCS: 36415; 70450; 71046; 80048; 80053; 80061; 82550; 82553; 83090; 84484; 85025; 85610; 85730; 93005; 93880; 95819; 96360; 96361; 99285

== ENCOUNTER 2018-05-15 19:33 | Inpatient (IN) | payer MEDICARE, BC ==
[2018-05-15] MEDS ORDERED: SODIUM CHLORIDE 0.9% 500 ML IV STA (20:23)
--- NOTE | 2018-05-15 20:28 | ED ---
General Adult HPI - General Chief complaint: Dizziness Stated complaint: Dizzy Source: patient Mode of arrival: wheelchair Limitations: no limitations - History of Present Illness Initial comments: Dictation was produced using [employer] dictation software. please excuse any grammatical, word or spelling errors. Chief Complaint: 67-year-old -Prydeinig male with past medical history of COPD, CVA/TIA, GERD, dyslipidemia, hypertension presents with dizziness. History of Present Illness: Patient was at home when he stood up to walk around when he began experiencing dizziness. Patient denies any sensation of the room spinning. States that he felt sick to his stomach. He did not feel nauseated and did not have any episodes of vomiting. Patient states that since being here in the emergency department his symptoms have improved. Patient is accompanied by his family member. Patient has residual left-sided deficits or he is weak and left coronary with his left upper extremity. Patient denies any orthostasis. Patient denies any constitutional symptoms. The ROS documented in this emergency department record has been reviewed and confirmed by me. Those systems with pertinent positive or negative responses have been documented in the HPI. All other systems are other negative and/or noncontributory. - Related Data Home Medications Medication Instructions Recorded Confirmed Atorvastatin [Lipitor] 80 mg PO HS 05/26/17 05/15/18 Cholecalciferol [Vitamin D3] 1,000 unit PO QAM 05/26/17 05/15/18 Tamsulosin HCl [Flomax] 0.4 mg PO QAM 05/26/17 05/15/18 Ferrous Sulfate [Feosol] 325 mg PO BID 06/29/17 05/15/18 Ranitidine HCl [Zantac] 150 mg PO BID 07/13/17 05/15/18 Sertraline [Zoloft] 25 mg PO DAILY 08/28/17 05/15/18 Tolterodine Tartrate [Detrol LA] 4 mg PO DAILY 08/28/17 05/15/18 Aspirin EC [Ecotrin Low Dose] 81 mg PO DAILY 02/12/18 05/15/18 Docusate [Colace] 100 mg PO DAILY PRN 02/12/18 05/15/18 Previous Rx's Medication Instructions Recorded Clopidogrel [Plavix] 75 mg PO DAILY #30 tab 11/24/17 Lactulose 10 gm PO BID PRN #100 ml 04/24/18 amLODIPine [Norvasc] 5 mg PO QAM #0 05/16/18 Allergies Allergy/AdvReac Type Severity Reaction Status Date / Time No Known Allergies Allergy Verified 05/15/18 20:11 Review of Systems ROS Statement: Those systems with pertinent positive or pertinent negative responses have been documented in the HPI. ROS Other: All systems not noted in ROS Statement are negative. Past Medical History Past Medical History: COPD, CVA/TIA, Eye Disorder, GERD/Reflux, Hyperlipidemia, Hypertension, Osteoarthritis (OA), Prostate Disorder, Renal Disease, Sleep Apnea /CPAP/BIPAP, Syncope Additional Past Medical History / Comment(s): Multiple TIAs, CVA 01/2017 with dysphagia-peg tube inserted and now out, chronic kidney disease stage II, BPH, Uti, ROSA has Cpap but does not tolerate it, gastric ulcer, R eye cataract, R foot 3rd toe osteomylitis, arthritis multiple joints, past gastric ulcer, recent shingelles-healed per pt, left hand weakness History of Any Multi-Drug Resistant Organisms: None Reported Past Surgical History: Hernia Repair, Joint Replacement Additional Past Surgical History / Comment(s): 06/01/17 intracranial angioplasty-( pt stated "he has stents') HFH, EGD with peg tube insertion since removed, R inguinal hernia repair, R total knee arthroplasty, colonoscopies with last one in 2014-normal. Past Anesthesia/Blood Transfusion Reactions: No Reported Reaction Past Psychological History: No Psychological Hx Reported Smoking Status: Former smoker Past Alcohol Use History: None Reported Past Drug Use History: None Reported - Past Family History Mother Family Medical History: CVA/TIA, Diabetes Mellitus, Hyperlipidemia, Hypertension Father Family Medical History: CVA/TIA, Hypertension General Exam - General Exam Comments Initial Comments: PHYSICAL EXAM: General Impression: Alert and oriented x3, not in acute distress HEENT: Normocephalic atraumatic, extra-ocular movements intact, pupils equal and reactive to light bilaterally, mucous membranes moist, no nystagmus Cardiovascular: Heart regular rate and rhythm, S1&S2 audible, no murmurs, rubs or gallops Chest: Lungs clear to auscultation bilaterally, no rhonchi, no wheeze, no rales Abdomen: Bowel sounds present, abdomen soft, non-tender, non-distended, no organomegaly Musculoskeletal: Pulses present and equal in all extremities, no peripheral edema Motor: Power 5/5 bilaterally, no focal deficits noted Neurological: CN II-XII grossly intact, mild ataxia of the left upper extremity with finger to nose testing Skin: Intact with no visualized rashes Psych: Normal affect and mood Limitations: no limitations Course Vital Signs 05/15/18 05/15/18 05/15/18 19:45 20:10 22:01 Temperature 98.2 F 98.7 F Pulse Rate 70 71 67 Respiratory 18 18 18 Rate Blood Pressure 120/75 128/74 142/82 O2 Sat by Pulse 99 98 98 Oximetry 05/15/18 05/15/18 22:46 23:22 Temperature 98.3 F Pulse Rate 62 Respiratory 18 Rate Blood Pressure 143/82 O2 Sat by Pulse 96 Oximetry Medical Decision Making - Medical Decision Making ED course: 67-year-old recommended male with multiple comorbidities presents with chief complaint of dizziness. Vital signs upon arrival are within acceptable limits. Patient reports that his dizziness lasted for 15 minutes. Patient is an unreliable historian unable to clearly describe his symptoms. Chart review shows the patient has extensive history of CVA/TIAs. Is certainly possible that patient's dizziness is secondary to vertebrobasilar insufficiency. At this point is very unclear what is the etiology of patient's dizziness.Laboratory evaluation obtained. CBC is within acceptable limits. Hemoglobin stable compared to previous labs. There is mild acute kidney injury. Glucose 120. Urinalysis is negative. Patient has no complaints at this point. Reports that his dizziness improved prior to arrival here. Possible that patient's dizziness may be secondary to transient ischemic attack. Chest x-ray obtained showing no acute processes. Computed tomography scan of the head and C-spine was obtained showing no change to previous exam. Clinical presentation suspicious for transient ischemic attack. Admitted with neurology on consult. Patient given aspirin. His also continued on his Plavix. EKG interpretation: Ventricular rate 70. Normal sinus rhythm. No AK prolongation, no QTC prolongation, no ST or T-wave changes noted. Overall, this EKG is unremarkable - Lab Data Result diagrams: 05/16/18 05:47 05/16/18 05:47 Lab Results 05/15/18 05/15/18 05/15/18 Range/Units 20:14 20:14 21:00 WBC 4.6 (3.8-10.6) k/uL RBC 3.48 L (4.30-5.90) m/uL Hgb 10.6 L (13.0-17.5) gm/dL Hct 32.4 L (39.0-53.0) % MCV 93.1 (80.0-100.0) fL MCH 30.5 (25.0-35.0) pg MCHC 32.7 (31.0-37.0) g/dL RDW 17.4 H (11.5-15.5) % Plt Count 293 (150-450) k/uL Neutrophils % 45 % Lymphocytes % 39 % Monocytes % 8 % Eosinophils % 3 % Basophils % 1 % Neutrophils # 2.1 (1.3-7.7) k/uL Lymphocytes # 1.8 (1.0-4.8) k/uL Monocytes # 0.4 (0-1.0) k/uL Eosinophils # 0.1 (0-0.7) k/uL Basophils # 0.0 (0-0.2) k/uL Anisocytosis Slight Sodium 138 (137-145) mmol/L Potassium 4.0 (3.5-5.1) mmol/L Chloride 103 (98-107) mmol/L Carbon Dioxide 28 (22-30) mmol/L Anion Gap 7 mmol/L BUN 27 H (9-20) mg/dL Creatinine 1.46 H (0.66-1.25) mg/dL Est GFR (CKD-EPI)AfAm 56 (>60 ml/min/1.73 sqM) Est GFR (CKD-EPI)NonAf 49 (>60 ml/min/1.73 sqM) Glucose 120 H (74-99) mg/dL Calcium 9.5 (8.4-10.2) mg/dL Total Bilirubin 0.2 (0.2-1.3) mg/dL AST 23 (17-59) U/L ALT 37 (21-72) U/L Alkaline Phosphatase 107 (38-126) U/L Total Protein 6.9 (6.3-8.2) g/dL Albumin 4.0 (3.5-5.0) g/dL Urine Color Yellow Urine Appearance Cloudy (Clear) Urine pH 5.5 (5.0-8.0) Ur Specific [place] 1.025 (1.001-1.035) Urine Protein Trace H (Negative) Urine Glucose (UA) Negative (Negative) Urine Ketones Negative (Negative) Urine Blood Negative (Negative) Urine Nitrite Negative (Negative) Urine Bilirubin Negative (Negative) Urine Urobilinogen 2.0 (<2.0) mg/dL Ur Leukocyte Esterase Small H (Negative) Urine RBC 11 H (0-5) /hpf Urine WBC 2 (0-5) /hpf Ur Squamous Epith Cells <1 (0-4) /hpf Urine Bacteria Occasional H (None) /hpf Hyaline Casts 14 H (0-2) /lpf Urine Mucus Occasional H (None) /hpf Urine Yeast (Budding) Occasional H (None) /hpf Disposition Clinical Impression: TIA (transient ischemic attack) Disposition: ADMITTED IP TO THIS HOSP Condition: Stable Is patient prescribed a controlled substance at d/c from ED?: No
[2018-05-15 20:39] LABS: Anisocytosis Slight; Basophils % (A) 1 %; Eosinophils # (A) 0.1 k/uL (0-0.7); Eosinophils % (A) 3 %; HCT 32.4 % (39.0-53.0); HGB 10.6 gm/dL (13.0-17.5); Lymphocytes # (A) 1.8 k/uL (1.0-4.8); Lymphocytes % (A) 39 %; MCH 30.5 pg (25.0-35.0); MCHC 32.7 g/dL (31.0-37.0); MCV 93.1 fL (80.0-100.0); Monocytes # (A) 0.4 k/uL (0-1.0); Monocytes % (A) 8 %; Neutrophils # (A) 2.1 k/uL (1.3-7.7); Neutrophils % (A) 45 %; Platelet Count 293 k/uL (150-450); RBC 3.48 m/uL (4.30-5.90); RDW 17.4 % (11.5-15.5); WBC 4.6 k/uL (3.8-10.6)
[2018-05-15 20:49] LABS: Calcium 9.5 mg/dL (8.4-10.2); Total Bilirubin 0.2 mg/dL (0.2-1.3); Total Protein 6.9 g/dL (6.3-8.2)
--- NOTE | 2018-05-15 21:04 | XR ---
EXAMINATION TYPE: XR chest 1V portable DATE OF EXAM: 05/15/2018 COMPARISON: 04/22/2018 HISTORY: Dizziness TECHNIQUE: Single frontal view of the chest is obtained. FINDINGS: There is no heart failure nor confluent pneumonic infiltrate. Costophrenic angles are keron r. There are chest leads. IMPRESSION: No active cardiopulmonary disease. There is improved inspiration compared to old exam.
[2018-05-15 21:17] LABS: Appearance,Urine Cloudy (Clear); Bacteria,Urine Occasional /hpf; Bilirubin,Urine Negative (Negative); Blood,Urine Negative (Negative); Budding Yeast,Urine Occasional /hpf; Color,Urine Yellow; Glucose,Urine (UA) Negative (Negative); Hyaline Casts,Urine 14 /lpf (0-2); Ketones,Urine Negative (Negative); Leukocyte Esterase,Urine Small (Negative); Mucus,Urine Occasional /hpf; Nitrite,Urine Negative (Negative); PH, Urine 5.5 (5.0-8.0); Protein,Urine Trace (Negative); RBC,Urine 11 /hpf (0-5); Specific Gravity,Urine 1.025 (1.001-1.035); Squamous Epithelial Cell,Urine <1 /hpf (0-4); WBC,Urine 2 /hpf (0-5)
[2018-05-15] MEDS ORDERED: NALOXONE 0.4 MG/ML 1 ML VIAL IV PRN (22:39)
[2018-05-15] MEDS ORDERED: ASPIRIN 81 MG PO STA (22:41)
--- NOTE | 2018-05-15 22:47 | CT ---
EXAMINATION TYPE: CT brain natasha soto DATE OF EXAM: 05/15/2018 COMPARISON: 04/22/[address] scan HISTORY: Dizziness and confusion. CT DLP: 1376.1 mGycm Automated exposure control for dose reduction was used. TECHNIQUE: CT scan of the head and cervical spine are performed without contrast. FINDINGS: There is cerebral cortical atrophy. There is moderate patchy hypodensity in the periventr icular white matter. There is no mass effect nor midline shift. There is no sign of intracranial hemo rrhage. The calvarium is intact. Cervical vertebra have normal spacing and alignment. There is mild anterior spurring at C3-4 C4-5. Th ere is no compression fracture. Facet joints are intact. Skull base is intact. IMPRESSION: Cerebral atrophy and extensive chronic small vessel ischemia. No change compared to old exam. Multipl e lacunar infarcts. Minor spondylotic changes in the cervical spine. No fracture.
[2018-05-16] MEDS ORDERED: DOCUSATE 100 MG CAP PO PRN (00:26)
[2018-05-16] MEDS ORDERED: LACTULOSE 200 GM/300 ML (FROM 1/2 GAL JUG) PO PRN (00:26)
[2018-05-16 00:38] VITALS: RESP 16
[2018-05-16 06:23] LABS: Anisocytosis Slight; Basophils % (A) 1 %; Eosinophils # (A) 0.2 k/uL (0-0.7); Eosinophils % (A) 4 %; HCT 29.1 % (39.0-53.0); HGB 9.3 gm/dL (13.0-17.5); Lymphocytes % (A) 44 %; MCH 29.8 pg (25.0-35.0); MCHC 31.9 g/dL (31.0-37.0); MCV 93.6 fL (80.0-100.0); Mean Platelet Volume 6.7; Monocytes # (A) 0.3 k/uL (0-1.0); Monocytes % (A) 7 %; Neutrophils # (A) 1.8 k/uL (1.3-7.7); Neutrophils % (A) 41 %; Platelet Count 276 k/uL (150-450); RBC 3.11 m/uL (4.30-5.90); RDW 17.6 % (11.5-15.5); WBC 4.5 k/uL (3.8-10.6)
[2018-05-16 06:39] LABS: Calcium 9.3 mg/dL (8.4-10.2); Potassium 3.8 mmol/L (3.5-5.1)
[2018-05-16 08:27] VITALS: BP 118/65; PULSE 64; TEMP 97.2
[2018-05-16] MEDS ORDERED: FERROUS SULFATE 325 MG TAB PO SCH (09:00)
[2018-05-16] MEDS ORDERED: FAMOTIDINE 20 MG TAB PO SCH (09:00)
[2018-05-16] MEDS ORDERED: SERTRALINE 25 MG TAB PO SCH (09:00)
[2018-05-16] MEDS ORDERED: ASPIRIN 325 MG TAB PO SCH (09:00)
[2018-05-16] MEDS ORDERED: amLODIPine 10 MG TAB PO SCH (09:00)
[2018-05-16] MEDS ORDERED: HEPARIN SODIUM,PORCINE 5,000 UNIT/ML 1 ML VIAL SQ SCH (09:00)
[2018-05-16] MEDS ORDERED: CHOLECALCIFEROL 1,000 UNIT TAB PO SCH (09:00)
[2018-05-16] MEDS ORDERED: TAMSULOSIN 0.4 MG CAP.ER.24H PO SCH (09:00)
[2018-05-16] MEDS ORDERED: OXYBUTYNIN XL 5 MG TAB.ER.24 PO SCH (09:00)
[2018-05-16] MEDS ORDERED: CLOPIDOGREL 75 MG TAB PO SCH (09:00)
[2018-05-16] MEDS ORDERED: NON-FORMULARY DRUG (Aspirin Ec 81 MG) PO SCH (09:00)
[2018-05-16] MEDS ORDERED: SODIUM CHLORIDE 0.9% 1,000 ML IV ONE (11:00)
[2018-05-16 11:16] VITALS: BMI 22.4
--- NOTE | 2018-05-16 13:18 | P.HPIM ---
History of Present Illness Patient presents 61-year-old gentleman came in with compensative dizziness. Denied any room spinning around. Patient's symptoms completely resolved patient examined been at home patient has positive orthostatic vitals, mildly by Hoa creatinine his baseline creatinine is 1.1 and went up to 1.4. Patient was admitted to rule out the CVA. But I do not believe patient has a patient does not have any weakness anywhere. Patient CAT scan of the head showed old strokes. Patient had multiple CVAs in the past patient is already in aspirin and Plavix as well as a statin patient also had cardiac catheterization and stents in the past. Patient denied any fever chills nausea vomiting. Patient is feeling well without any dizziness today patient's amlodipine dose will be decreased patient will be given a bolus of IV fluids after which patient will be discharged patient had a recent workup about 6 months ago for stroke CT angios the head and neck did not show any significant carotid occlusive disease. I do not believe patient has several vascular accident at this point of time patient had an echocardiogram transthoracic which did not show any valve abnormalities about 6 months ago patient will be discharged today patient does have some baseline weakness in the left side from his previous stroke and facial droop from his previous stroke which is not new. Review of Systems REVIEW OF SYSTEMS: CONSTITUTIONAL: No fever, no malaise, no fatigue. HEENT: No recent visual problems or hearing problems. Denied any sore throat. CARDIOVASCULAR: No chest pain, orthopnea, PND, no palpitations, no syncope. PULMONARY: No shortness of breath, no cough, no hemoptysis. GASTROINTESTINAL: No diarrhea, no nausea, no vomiting, no abdominal pain. Normoactive bowel sounds. NEUROLOGICAL: No headaches, no weakness, no numbness. HEMATOLOGICAL: Denies any bleeding or petechiae. GENITOURINARY: Denies any burning micturition, frequency, or urgency. MUSCULOSKELETAL/RHEUMATOLOGICAL: Denies any joint pain, swelling, or any muscle pain. ENDOCRINE: Denies any polyuria or polydipsia. The rest of the 14-point review of systems is negative. Past Medical History Past Medical History: COPD, CVA/TIA, Eye Disorder, GERD/Reflux, Hyperlipidemia, Hypertension, Osteoarthritis (OA), Prostate Disorder, Renal Disease, Sleep Apnea /CPAP/BIPAP, Syncope Additional Past Medical History / Comment(s): Multiple TIAs, CVA 01/2017 with dysphagia-peg tube inserted and now out, chronic kidney disease stage II, BPH, Uti, ROSA has Cpap but does not tolerate it, gastric ulcer, R eye cataract, R foot 3rd toe osteomylitis, arthritis multiple joints, past gastric ulcer, recent shingelles-healed per pt, left hand weakness History of Any Multi-Drug Resistant Organisms: None Reported Past Surgical History: Hernia Repair, Joint Replacement Additional Past Surgical History / Comment(s): 06/01/17 intracranial angioplasty-( pt stated "he has stents') HFH, EGD with peg tube insertion since removed, R inguinal hernia repair, R total knee arthroplasty, colonoscopies with last one in 2014-normal. Past Anesthesia/Blood Transfusion Reactions: No Reported Reaction Past Psychological History: No Psychological Hx Reported Additional Psychological History / Comment(s): Pt lives with his in 2 story home that has 4 front porch steps. Pt stays on first level. No pets. No home care services. Pt uses a walker to ambulate. Pt no longer drives, his spouse drives him to appts. Smoking Status: Former smoker Past Alcohol Use History: None Reported Additional Past Alcohol Use History / Comment(s): SMOKED < 1PPD FOR 25 YEARS EST. quit 2016 Past Drug Use History: None Reported - Past Family History Mother Family Medical History: CVA/TIA, Diabetes Mellitus, Hyperlipidemia, Hypertension Father Family Medical History: CVA/TIA, Hypertension Medications and Allergies Home Medications Medication Instructions Recorded Confirmed Type Atorvastatin [Lipitor] 80 mg PO HS 05/26/17 05/15/18 History Cholecalciferol [Vitamin D3] 1,000 unit PO QAM 05/26/17 05/15/18 History Tamsulosin HCl [Flomax] 0.4 mg PO QAM 05/26/17 05/15/18 History Ferrous Sulfate [Feosol] 325 mg PO BID 06/29/17 05/15/18 History Ranitidine HCl [Zantac] 150 mg PO BID 07/13/17 05/15/18 History Sertraline [Zoloft] 25 mg PO DAILY 08/28/17 05/15/18 History Tolterodine Tartrate [Detrol LA] 4 mg PO DAILY 08/28/17 05/15/18 History Clopidogrel [Plavix] 75 mg PO DAILY #30 tab 11/24/17 05/15/18 Rx Aspirin EC [Ecotrin Low Dose] 81 mg PO DAILY 02/12/18 05/15/18 History Docusate [Colace] 100 mg PO DAILY PRN 02/12/18 05/15/18 History Lactulose 10 gm PO BID PRN #100 ml 04/24/18 05/15/18 Rx amLODIPine [Norvasc] 5 mg PO QAM #0 05/16/18 05/15/18 Rx Allergies Allergy/AdvReac Type Severity Reaction Status Date / Time No Known Allergies Allergy Verified 05/15/18 20:11 Physical Exam Vitals: Vital Signs Temp Pulse Pulse Resp BP BP Pulse Ox 05/16/18 08:00 97.2 F L 64 16 118/65 98 05/16/18 07:33 97 05/16/18 04:00 96.8 F L 59 L 16 127/77 97 05/16/18 00:00 97.4 F L 58 L 16 138/81 99 05/15/18 23:22 98.3 F 05/15/18 22:46 62 18 143/82 96 05/15/18 22:01 67 18 142/82 98 05/15/18 20:10 98.7 F 71 18 128/74 98 05/15/18 19:45 98.2 F 70 18 120/75 99 Intake and Output 05/15/18 05/16/18 05/16/18 22:59 06:59 14:59 Intake Total 10 600 Balance 10 600 Intake: IV 10 0.9 10 Oral 600 Other: Voiding Method Urinal Urinal Diaper Diaper Incontinent Incontinent Weight 80.331 kg 79.2 kg 79.2 kg PHYSICAL EXAMINATION: GENERAL: The patient is alert and oriented x3, not in any acute distress. Well developed, well nourished. HEENT: Pupils are round and equally reacting to light. EOMI. No scleral icterus. No conjunctival pallor. Normocephalic, atraumatic. No pharyngeal erythema. No thyromegaly. CARDIOVASCULAR: S1 and S2 present. No murmurs, rubs, or gallops. PULMONARY: Chest is clear to auscultation, no wheezing or crackles. ABDOMEN: Soft, nontender, nondistended, normoactive bowel sounds. No palpable organomegaly. MUSCULOSKELETAL: No joint swelling or deformity. EXTREMITIES: No cyanosis, clubbing, or pedal edema. NEUROLOGICAL: And does have 4+/5 strength in the left side which was old. SKIN: No rashes. Results CBC & Chem 7: 05/16/18 05:47 05/16/18 05:47 Labs: Abnormal Lab Results - Last 24 Hours (Table) 05/15/18 05/15/18 05/15/18 Range/Units 20:14 20:14 21:00 RBC 3.48 L (4.30-5.90) m/uL Hgb 10.6 L (13.0-17.5) gm/dL Hct 32.4 L (39.0-53.0) % RDW 17.4 H (11.5-15.5) % BUN 27 H (9-20) mg/dL Creatinine 1.46 H (0.66-1.25) mg/dL Glucose 120 H (74-99) mg/dL Urine Protein Trace H (Negative) Ur Leukocyte Esterase Small H (Negative) Urine RBC 11 H (0-5) /hpf Urine Bacteria Occasional H (None) /hpf Hyaline Casts 14 H (0-2) /lpf Urine Mucus Occasional H (None) /hpf Urine Yeast (Budding) Occasional H (None) /hpf 05/16/18 05/16/18 Range/Units 05:47 05:47 RBC 3.11 L (4.30-5.90) m/uL Hgb 9.3 L (13.0-17.5) gm/dL Hct 29.1 L (39.0-53.0) % RDW 17.6 H (11.5-15.5) % BUN 26 H (9-20) mg/dL Creatinine 1.37 H (0.66-1.25) mg/dL Glucose 100 H (74-99) mg/dL Urine Protein (Negative) Ur Leukocyte Esterase (Negative) Urine RBC (0-5) /hpf Urine Bacteria (None) /hpf Hyaline Casts (0-2) /lpf Urine Mucus (None) /hpf Urine Yeast (Budding) (None) /hpf Thrombosis Risk Factor Assmnt - Choose All That Apply Any of the Below Risk Factors Present?: Yes Each Risk Factor Represents 2 Points: Age 61-74 years Thrombosis Risk Factor Assessment Total Risk Factor Score: 2 Thrombosis Risk Factor Assessment Level: Low Risk Assessment and Plan Plan: -Dizziness: Secondary to possible intravascular volume depletion cut down the amlodipine give him 1 L of fluid patient will be discharged and not believe patient has a new cerebral vascular accident -History of cerebral vascular accident in the past with residual weakness no change. 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
--- NOTE | 2018-05-16 13:19 | P.DS ---
Providers Date of admission: 05/15/18 22:40 Attending physician: Artem Nevarez MD Consults: 05/15/18 22:42 Consult Physician Routine Consulting Provider: Chelsey Silverio Consult Reason/Comments: TIA Do you want consulting provider notified?: Yes 05/16/18 10:27 Consult Physician Stat Consulting Provider: Jo Mcghee Consult Reason/Comments: cva Do you want consulting provider notified?: Yes Primary care physician: Rick Luke Hospital Course: Please refer to my HPI Plan - Discharge Summary Discharge Rx Participant: No New Discharge Prescriptions: Continue Cholecalciferol [Vitamin D3] 1,000 unit PO QAM Atorvastatin [Lipitor] 80 mg PO HS Tamsulosin HCl [Flomax] 0.4 mg PO QAM Ferrous Sulfate [Feosol] 325 mg PO BID Ranitidine HCl [Zantac] 150 mg PO BID Sertraline [Zoloft] 25 mg PO DAILY Tolterodine Tartrate [Detrol LA] 4 mg PO DAILY Clopidogrel [Plavix] 75 mg PO DAILY #30 tab Aspirin EC [Ecotrin Low Dose] 81 mg PO DAILY Docusate [Colace] 100 mg PO DAILY PRN PRN Reason: Constipation Lactulose 10 gm PO BID PRN #100 ml PRN Reason: Constipation Changed amLODIPine [Norvasc] 5 mg PO QAM #0 Discharge Medication List Atorvastatin [Lipitor] 80 mg PO HS 05/26/17 [History] Cholecalciferol [Vitamin D3] 1,000 unit PO QAM 05/26/17 [History] Tamsulosin HCl [Flomax] 0.4 mg PO QAM 05/26/17 [History] Ferrous Sulfate [Feosol] 325 mg PO BID 06/29/17 [History] Ranitidine HCl [Zantac] 150 mg PO BID 07/13/17 [History] Sertraline [Zoloft] 25 mg PO DAILY 08/28/17 [History] Tolterodine Tartrate [Detrol LA] 4 mg PO DAILY 08/28/17 [History] Clopidogrel [Plavix] 75 mg PO DAILY #30 tab 11/24/17 [Rx] Aspirin EC [Ecotrin Low Dose] 81 mg PO DAILY 02/12/18 [History] Docusate [Colace] 100 mg PO DAILY PRN 02/12/18 [History] Lactulose 10 gm PO BID PRN #100 ml 04/24/18 [Rx] amLODIPine [Norvasc] 5 mg PO QAM #0 05/16/18 [Rx] Follow up Appointment(s)/Referral(s): Dino Mcghee MD [STAFF PHYSICIAN] - 05/24/18 12:30 pm (June 20 appointment on schedule previously. No other morning appointments available, or per planning analyst. Please call office to reschedule if needed.) Rick Luke MD [Primary Care Provider] - 05/30/18 11:40 am (First opening appointment, or come in on Sunday, May 21 as a walk in.) Patient Instructions/Handouts: Transient Ischemic Attack (DC) Discharge Disposition: HOME SELF-CARE
[2018-05-16] MEDS ORDERED: ATORVASTATIN 80 MG TAB PO SCH (21:00)
== END 2018-05-16 13:53 | disposition home or self-care (01) | DRG 641 ==
LOC: EC 19:33 → 6SEL 22:40
PROVIDERS: ADMIT Internal Medicine; ATTEND Internal Medicine
DX: E86.1 Hypovolemia (principal); N17.9 Acute kidney failure, unspecified; I69.359 Hemiplegia and hemiparesis following cerebral infarction affecting unspecified side; E78.5 Hyperlipidemia, unspecified; G47.33 Obstructive sleep apnea (adult) (pediatric); I12.9 Hypertensive chronic kidney disease with stage 1 through stage 4 chronic kidney disease, or unspecified chronic kidney disease; J44.9 Chronic obstructive pulmonary disease, unspecified; K21.9 Gastro-esophageal reflux disease without esophagitis; N18.2 Chronic kidney disease, stage 2 (mild); N40.0 Benign prostatic hyperplasia without lower urinary tract symptoms; Z79.02 Long term (current) use of antithrombotics/antiplatelets; Z79.899 Other long term (current) drug therapy; Z82.49 Family history of ischemic heart disease and other diseases of the circulatory system; Z83.3 Family history of diabetes mellitus; Z87.891 Personal history of nicotine dependence; Z96.651 Presence of right artificial knee joint; Z79.82 Long term (current) use of aspirin; H26.9 Unspecified cataract; Z86.19 Personal history of other infectious and parasitic diseases
CPT/HCPCS: 36415; 70450; 71045; 72125; 80048; 80053; 80061; 81001; 85025; 93005; 94760; 99285

== ENCOUNTER 2018-05-20 13:22 | Observation (INO) | payer MEDICARE, BC ==
--- NOTE | 2018-05-20 14:04 | ED ---
General Adult HPI - General Chief complaint: Syncope Stated complaint: Poss Tia Time Seen by Provider: 05/20/18 13:25 Source: patient, RN notes reviewed Mode of arrival: EMS Limitations: no limitations - History of Present Illness Initial comments: This is a 67-year-old male who presents emergency Department with his states she came on the bathroom he was slumped sideways in the chair though he was responding his speech appeared slurred and he was in her words out of it. Patient had difficult time standing at that time leaning all over his she called EMS when they arrived he was alert to get him back at his baseline neurologically but still weak. stated that when EMS arrived the patient's blood pressure was in the 80s. Patient does not complain of anything and states he feels pretty good but his states that this is what he always says. Patient denies any headache patient denies any difficulty breathing or shortness of breath. states he was at no time unconscious patient would never appeared in any distress he was up early this morning was able to take his own shower and help with breakfast. Patient denies any abdominal pain there 's been no recent vomiting or diarrhea there's been no recent fever chills - Related Data Home Medications Medication Instructions Recorded Confirmed Atorvastatin [Lipitor] 80 mg PO HS 05/26/17 05/20/18 Cholecalciferol [Vitamin D3] 1,000 unit PO QAM 05/26/17 05/20/18 Tamsulosin HCl [Flomax] 0.4 mg PO QAM 05/26/17 05/20/18 Ferrous Sulfate [Feosol] 325 mg PO BID 06/29/17 05/20/18 Ranitidine HCl [Zantac] 150 mg PO BID 07/13/17 05/20/18 Sertraline [Zoloft] 25 mg PO DAILY 08/28/17 05/20/18 Tolterodine Tartrate [Detrol LA] 4 mg PO DAILY 08/28/17 05/20/18 Aspirin EC [Ecotrin Low Dose] 81 mg PO DAILY 02/12/18 05/20/18 Docusate [Colace] 100 mg PO DAILY PRN 02/12/18 05/20/18 Previous Rx's Medication Instructions Recorded Clopidogrel [Plavix] 75 mg PO DAILY #30 tab 11/24/17 Lactulose 10 gm PO BID PRN #100 ml 04/24/18 amLODIPine [Norvasc] 5 mg PO QAM #0 05/16/18 Allergies Allergy/AdvReac Type Severity Reaction Status Date / Time No Known Allergies Allergy Verified 05/20/18 14:03 Review of Systems ROS Statement: Those systems with pertinent positive or pertinent negative responses have been documented in the HPI. ROS Other: All systems not noted in ROS Statement are negative. Past Medical History Past Medical History: COPD, CVA/TIA, Eye Disorder, GERD/Reflux, Hyperlipidemia, Hypertension, Osteoarthritis (OA), Prostate Disorder, Renal Disease, Sleep Apnea /CPAP/BIPAP, Syncope Additional Past Medical History / Comment(s): Multiple TIAs, CVA 01/2017 with dysphagia-peg tube inserted and now out, chronic kidney disease stage II, BPH, Uti, ROSA has Cpap but does not tolerate it, gastric ulcer, R eye cataract, R foot 3rd toe osteomylitis, arthritis multiple joints, past gastric ulcer, recent shingelles-healed per pt, left hand weakness History of Any Multi-Drug Resistant Organisms: None Reported Past Surgical History: Hernia Repair, Joint Replacement Additional Past Surgical History / Comment(s): 06/01/17 intracranial angioplasty-( pt stated "he has stents') HFH, EGD with peg tube insertion since removed, R inguinal hernia repair, R total knee arthroplasty, colonoscopies with last one in 2014-normal. Past Anesthesia/Blood Transfusion Reactions: No Reported Reaction Past Psychological History: No Psychological Hx Reported Smoking Status: Former smoker Past Alcohol Use History: None Reported Past Drug Use History: None Reported - Past Family History Mother Family Medical History: CVA/TIA, Diabetes Mellitus, Hyperlipidemia, Hypertension Father Family Medical History: CVA/TIA, Hypertension General Exam - General Exam Comments Initial Comments: GENERAL: Patient is well-developed and well-nourished. Patient is nontoxic and well- hydrated and is in mild distress. ENT: Neck is soft and supple. No significant lymphadenopathy is noted. Oropharynx is clear. Moist mucous membranes. Neck has full range of motion without eliciting any pain. EYES: The sclera were anicteric and conjunctiva were pink and moist. Extraocular movements were intact and pupils were equal round and reactive to light. Eyelids were unremarkable. PULMONARY: Unlabored respirations. Good breath sounds bilaterally. No audible rales rhonchi or wheezing was noted. CARDIOVASCULAR: There is a regular rate and rhythm without any murmurs gallops or rubs. ABDOMEN: Soft and nontender with normal bowel sounds. SKIN: Skin is clear with no lesions or rashes and otherwise unremarkable. NEUROLOGIC: Patient is alert and oriented x3. Cranial nerves II through XII are grossly intact. Motor and sensory are also intact. Normal speech, volume and content. Symmetrical smile. MUSCULOSKELETAL: Normal extremities with adequate strength and full range of motion. LYMPHATICS: No significant lymphadenopathy is noted PSYCHIATRIC: Normal psychiatric evaluation. Normal interpersonal interactions appears functionally intact in deals appropriately with others. No signs of depression. No signs of anxiety. Limitations: no limitations Course Vital Signs 05/20/18 05/20/18 13:26 15:00 Temperature 98.4 F Pulse Rate 57 L 63 Respiratory 16 16 Rate Blood Pressure 106/65 135/78 O2 Sat by Pulse 100 100 Oximetry Medical Decision Making - Medical Decision Making EKG shows normal sinus rhythm at 61 bpm AL interval is 182 QRS is 84 QT interval 424 QTC is 426. Patient's EKG shows no changes from her previous EKG. CT of the brain shows no acute abnormality. Chest x-ray shows no acute normalities. Patient has been at his neurologic baseline since she's been to the emergency department. I spoke with Dr. Church he agreed to admit the patient admitted the patient I wrote admitting orders. - Lab Data Result diagrams: 05/20/18 13:36 05/20/18 13:36 Lab Results 05/20/18 05/20/18 05/20/18 Range/Units 13:36 13:36 13:36 WBC 5.4 (3.8-10.6) k/uL RBC 3.64 L (4.30-5.90) m/uL Hgb 10.7 L (13.0-17.5) gm/dL Hct 33.9 L (39.0-53.0) % MCV 93.2 (80.0-100.0) fL MCH 29.4 (25.0-35.0) pg MCHC 31.6 (31.0-37.0) g/dL RDW 17.4 H (11.5-15.5) % Plt Count 292 (150-450) k/uL Neutrophils % 60 % Lymphocytes % 29 % Monocytes % 6 % Eosinophils % 3 % Basophils % 1 % Neutrophils # 3.2 (1.3-7.7) k/uL Lymphocytes # 1.6 (1.0-4.8) k/uL Monocytes # 0.3 (0-1.0) k/uL Eosinophils # 0.2 (0-0.7) k/uL Basophils # 0.0 (0-0.2) k/uL Anisocytosis Slight PT (9.0-12.0) sec INR (<1.2) APTT (22.0-30.0) sec Sodium 140 (137-145) mmol/L Potassium 3.8 (3.5-5.1) mmol/L Chloride 103 (98-107) mmol/L Carbon Dioxide 28 (22-30) mmol/L Anion Gap 9 mmol/L BUN 18 (9-20) mg/dL Creatinine 1.55 H (0.66-1.25) mg/dL Est GFR (CKD-EPI)AfAm 52 (>60 ml/min/1.73 sqM) Est GFR (CKD-EPI)NonAf 45 (>60 ml/min/1.73 sqM) Glucose 126 H (74-99) mg/dL Calcium 9.5 (8.4-10.2) mg/dL Total Bilirubin 0.3 (0.2-1.3) mg/dL AST 28 (17-59) U/L ALT 43 (21-72) U/L Alkaline Phosphatase 102 (38-126) U/L Total Creatine Kinase 85 (55-170) U/L CK-MB (CK-2) 0.8 (0.0-2.4) ng/mL CK-MB (CK-2) Rel Index 0.9 Troponin I <0.012 (0.000-0.034) ng/mL Total Protein 7.1 (6.3-8.2) g/dL Albumin 4.1 (3.5-5.0) g/dL 05/20/18 Range/Units 13:36 WBC (3.8-10.6) k/uL RBC (4.30-5.90) m/uL Hgb (13.0-17.5) gm/dL Hct (39.0-53.0) % MCV (80.0-100.0) fL MCH (25.0-35.0) pg MCHC (31.0-37.0) g/dL RDW (11.5-15.5) % Plt Count (150-450) k/uL Neutrophils % % Lymphocytes % % Monocytes % % Eosinophils % % Basophils % % Neutrophils # (1.3-7.7) k/uL Lymphocytes # (1.0-4.8) k/uL Monocytes # (0-1.0) k/uL Eosinophils # (0-0.7) k/uL Basophils # (0-0.2) k/uL Anisocytosis PT 9.8 (9.0-12.0) sec INR 1.0 (<1.2) APTT 23.1 (22.0-30.0) sec Sodium (137-145) mmol/L Potassium (3.5-5.1) mmol/L Chloride (98-107) mmol/L Carbon Dioxide (22-30) mmol/L Anion Gap mmol/L BUN (9-20) mg/dL Creatinine (0.66-1.25) mg/dL Est GFR (CKD-EPI)AfAm (>60 ml/min/1.73 sqM) Est GFR (CKD-EPI)NonAf (>60 ml/min/1.73 sqM) Glucose (74-99) mg/dL Calcium (8.4-10.2) mg/dL Total Bilirubin (0.2-1.3) mg/dL AST (17-59) U/L ALT (21-72) U/L Alkaline Phosphatase (38-126) U/L Total Creatine Kinase (55-170) U/L CK-MB (CK-2) (0.0-2.4) ng/mL CK-MB (CK-2) Rel Index Troponin I (0.000-0.034) ng/mL Total Protein (6.3-8.2) g/dL Albumin (3.5-5.0) g/dL Disposition Clinical Impression: Near syncope Disposition: ADMITTED IP TO THIS HOSP Referrals: Rick Luke MD [Primary Care Provider] - 1-2 days Time of Disposition: 15:54
[2018-05-20 14:20] LABS: Partial Thromboplastin Time 23.1 sec (22.0-30.0); Prothrombin Time 9.8 sec (9.0-12.0)
[2018-05-20 14:32] LABS: Albumin 4.1 g/dL (3.5-5.0); Anisocytosis Slight; Basophils % (A) 1 %; Calcium 9.5 mg/dL (8.4-10.2); Creatine Kinase 85 U/L (55-170); Eosinophils # (A) 0.2 k/uL (0-0.7); Eosinophils % (A) 3 %; HCT 33.9 % (39.0-53.0); HGB 10.7 gm/dL (13.0-17.5); Lymphocytes # (A) 1.6 k/uL (1.0-4.8); Lymphocytes % (A) 29 %; MCH 29.4 pg (25.0-35.0); MCHC 31.6 g/dL (31.0-37.0); MCV 93.2 fL (80.0-100.0); Mean Platelet Volume 7.2; Monocytes # (A) 0.3 k/uL (0-1.0); Monocytes % (A) 6 %; Neutrophils # (A) 3.2 k/uL (1.3-7.7); Neutrophils % (A) 60 %; Platelet Count 292 k/uL (150-450); Potassium 3.8 mmol/L (3.5-5.1); RBC 3.64 m/uL (4.30-5.90); RDW 17.4 % (11.5-15.5); Total Bilirubin 0.3 mg/dL (0.2-1.3); Total Protein 7.1 g/dL (6.3-8.2); WBC 5.4 k/uL (3.8-10.6)
--- NOTE | 2018-05-20 14:41 | XR ---
EXAMINATION TYPE: XR chest 2V DATE OF EXAM: 05/20/2018 COMPARISON: 02/18/2018 TECHNIQUE: PA and lateral views submitted. HISTORY: Altered mental status FINDINGS: The lungs are clear and there is no pneumothorax, pleural effusion, or focal pneumonia. Rotation li kayce accounts for aortic ectasia. No overt failure. Hypertrophic and degenerative changes of the spin e noted. Atherosclerotic change aorta. IMPRESSION: 1. No acute process.
[2018-05-20 14:44] LABS: Creatine Kinase MB 0.8 ng/mL (0.0-2.4); Troponin I <0.012 ng/mL (0.000-0.034)
--- NOTE | 2018-05-20 15:03 | CT ---
EXAMINATION TYPE: CT brain wo con DATE OF EXAM: 05/20/2018 COMPARISON: 05/15/2018 HISTORY: Neuro deficits CT DLP: 1031.1 mGycm Automated exposure control for dose reduction was used. FINDINGS: There is cerebral cortical atrophy. There is moderate patchy hypodensity in the periventricular white matter. There is no mass effect nor midline shift. There is no sign of intracranial hemorrhage. The calvarium is intact. Hypodensities in basal ganglia noted. Intracranial atherosclerotic changes noted. There is concern for acute ischemia correlate with MRI. Changes of chronic sinusitis noted IMPRESSION: 1. DEGENERATIVE AND NONSPECIFIC WHITE MATTER CHANGES MOST TYPICAL REMOTE MICROVASCULAR ISCHEMIA. 2. HYPODENSITIES SEEN WITHIN THE BASAL GANGLIA SUGGESTIVE OF REMOTE LACUNAR INFARCTIONS AND STABLE FR OM PREVIOUS EXAM. IF THERE IS CONCERN FOR ACUTE ISCHEMIA CORRELATE CLINICALLY AND IF NECESSARY WITH M RI.
[2018-05-20] MEDS ORDERED: SODIUM CHLORIDE 0.9% 1,000 ML IV ONE (15:54)
[2018-05-20 18:23] VITALS: BMI 22.3
[2018-05-20] MEDS ORDERED: DOCUSATE 100 MG CAP PO PRN (21:13)
[2018-05-20] MEDS ORDERED: LACTULOSE 20 GM/30 ML CUP PO PRN (21:13)
[2018-05-20] MEDS: FERROUS SULFATE 325 MG TAB PO SCH (22:20)
[2018-05-20] MEDS: FAMOTIDINE 20 MG TAB PO SCH (22:20)
[2018-05-20] MEDS: ATORVASTATIN 80 MG TAB PO SCH (22:20)
[2018-05-20] MEDS: SODIUM CHLORIDE 0.9% 1,000 ML IV SCH (22:20)
--- NOTE | 2018-05-20 22:43 | HP ---
HISTORY AND PHYSICAL DATE OF SERVICE: 05/20/2018 CHIEF COMPLAINT: Syncope. HISTORY OF PRESENT ILLNESS: This 67-year-old gentleman with a past medical history of multiple medical problems including CVA, TIA, COPD, GERD, hypertension, hyperlipidemia, history of DJD, history of syncope, being followed by Dr. Luke in the outpatient setting, was recently admitted to [facility] with complaints of dizziness which was thought to be due secondary to intravascular volume depletion. The patient improved significantly. Recently patient went home. At home, the patient apparently passed out and the also took some pictures in the cellphone and the patient admitted for further evaluation and treatment. The patient also has history of TIA also. There is no history of fever, rigors. No history of headache, seizures at this time. The patient being followed by Dr. Luke in the outpatient setting. PAST MEDICAL HISTORY: History of COPD, CVA, GERD, hypertension, hyperlipidemia, DJD, history of prostate disorder, history of multiple TIAs and hernia repair. MEDICATIONS: Prior to admission include home medications are: 1. Norvasc 5 mg p.o. q.a.m. 2. Detrol LA 4 mg p.o. daily. 3. Flomax 0.4 q.h.s. 4. Zoloft 25 mg p.o. daily. 5. Zantac 150 mg b.i.d. 6. Lactulose 10 grams p.o. b.i.d. p.r.n. 7. Iron sulfate 320 mg p.o. b.i.d. 8. Colace 100 mg daily p.r.n. 9. Plavix 75 mg p.o. daily. 10.Vitamin D3 1000 q.a.m. 11.Lipitor 80 mg daily. 12.Ecotrin 81 mg p.o. daily. ALLERGIES: None. FAMILY HISTORY: History of CVA, TIA, diabetes, hypertension, hyperlipidemia. SOCIAL HISTORY: No history of alcohol intake. Previous history of smoking. No history of current smoking alcohol. REVIEW OF SYSTEMS: ENT: Diminished vision and hearing. Cardio system: S1, S2. Respiratory: As mentioned earlier. GI: No nausea or vomiting. : No dysuria or hematuria. Nervous System: As mentioned earlier. Allergies/Immunology: No asthma or hayfever. Musculoskeletal as mentioned earlier. HEMATOLOGY/ONCOLOGY: No history of anemia. Endocrine: No history of diabetes or hypothyroidism. CONSTITUTIONAL: As mentioned earlier. Dermatology: Negative. Rheumatology: Negative. Psychiatry: As mentioned earlier. PHYSICAL EXAMINATION: Alert and oriented times three. Pulse 87, blood pressure 130/75. Minimal orthostatic changes present. RESPIRATORY rate 16, temperature 98.4, pulse ox 99% on room air. HEENT: Conjunctivae normal. Oral mucosa moist. Neck is no jugular venous distention. No carotid bruit. No lymph node enlargement. Cardiovascular S1, S2. No S3, no S4. Respiratory: Breath sounds diminished in the bases. No rhonchi. No crackles. ABDOMEN: Soft, nontender. Legs are no edema. No swelling. Nervous system: Higher functions as mentioned earlier. Moves all four extremities. No focal deficits. Lymphatics: No lymph nodes palpable in the neck, axillae or groin. SKIN: No ulcer, rash or bleeding. Skin: No ulcer, rash or bleeding. LABS: EKG shows normal sinus rhythm with some ST-T changes. Otherwise labs: WBC 5, hemoglobin 10.7, creatinine is 1.55. ASSESSMENT: 1. Syncope possibly orthostatic hypotension. Rule out cardiac arrhythmia. 2. History of recurrent syncope. 3. History of transient ischemic attack. 4. Increased creatinine with chronic kidney stage 2, possibly. 5. History of chronic obstructive pulmonary disease. 6. History of cerebrovascular accident, transient ischemic attack. 7. Gastroesophageal reflux disease. 8. Hypertension. 9. Hyperlipidemia. 10.Obstructive sleep apnea. 11.History of dysphagia. 12.History of CPAP. 13.History of intracranial stents. RECOMMENDATIONS AND DISCUSSION: In this 67-year-old gentleman who presented with multiple complex medical issues, we will monitor the patient closely, Continue the current medications, management and symptomatic treatment. Otherwise, at this time, I recommend IV fluids. Monitor orthostatic vitals. Otherwise cardiology evaluation. Continue the telemetry. The patient had previously multiple CVAs and TIAs. The p.o. intake appears to be poor as well. We will continue to monitor. Further recommendations to follow. Ensure adequate fluids at this time. IV fluids will be initiated 75 mL/hour. Prognosis guarded. Further recommendations the patient follow. See orders for details. MMODL / IJN: [id number] /
[2018-05-21 06:54] LABS: Anisocytosis Slight; Basophils % (A) 0 %; Eosinophils # (A) 0.1 k/uL (0-0.7); Eosinophils % (A) 2 %; HCT 32.3 % (39.0-53.0); HGB 10.2 gm/dL (13.0-17.5); Lymphocytes % (A) 41 %; MCH 29.4 pg (25.0-35.0); MCHC 31.4 g/dL (31.0-37.0); MCV 93.6 fL (80.0-100.0); Mean Platelet Volume 6.9; Monocytes # (A) 0.3 k/uL (0-1.0); Monocytes % (A) 6 %; Neutrophils # (A) 2.4 k/uL (1.3-7.7); Neutrophils % (A) 48 %; Platelet Count 273 k/uL (150-450); RBC 3.46 m/uL (4.30-5.90); RDW 17.3 % (11.5-15.5); WBC 4.9 k/uL (3.8-10.6)
[2018-05-21 07:07] LABS: Calcium 9.1 mg/dL (8.4-10.2); Potassium 3.8 mmol/L (3.5-5.1)
[2018-05-21] MEDS ORDERED: FERROUS SULFATE 325 MG TAB PO SCH (09:00)
[2018-05-21] MEDS ORDERED: FAMOTIDINE 20 MG TAB PO SCH (09:00)
--- NOTE | 2018-05-21 09:40 | P.CRDCN ---
History of Present Illness History of present illness: Mr. Sesay is a pleasant 67-year-old male past medical history significant for CVA, frequent TIA's, hypertension, dyslipidemia and former tobacco use quit 2017 after 25 years. He denies history of coronary artery disease and has never followed with a junior software developer for any reason. We have been asked to see him in consultation for a syncopal episode. He states yesterday he was sitting at the table and stood up to go to bed because he felt tired.Upon standing he became acutely dizzy and had a syncopal episode. His witnessed the event and told him he had LOC for approximately 10 minutes. He denies shortness of breath, nausea, vomiting, diaphoresis, chest pain or palpitations. He denies any seizure like activity and denies loss of bowel or bladder function. This information all came from the patient himself, no family available at the time of my exam. Review of ED notes while was present states she found him slumped on the toilet with slurred speech and difficulty ambulating. Telemetry tracings have been unremarkable. EKG reveals sinus mechanism with non-specific T-wave abnormalities noted. Chest xray negative for an acute cardiopulmonary process. CT brain reveals degenerative and nonspecific white matter changes most typically rule out microvascular ischemia, hypodensity seen within the basal ganglia suggestive of remote lacunar infarcts stable from previous exam. MRI recommended. Laboratory data reviewed, hemoglobin 10.2, platelets 273, sodium 139, potassium 3.8, creatinine 1.11 down from 1.55 on admission, cardiac enzymes negative 1. Current cardiac medications include aspirin 81 mg daily, atorvastatin 80 mg daily, Plavix 75 mg daily and amlodipine 5 mg daily. He also takes Detrol, Flomax, Zoloft, Zantac, lactulose, Colace and ferrous sulfate. His Plavix as prescribed per neurology for CVA. He underwent a transesophageal echocardiogram February 2017 to rule out cardiac embolization after his CVA which revealed a normal ejection fraction with no evidence of embolization and no shunting noted. Orthostatic vital signs obtained are negative. Review of Systems At the time of my exam: CONSTITUTIONAL: Denies fever. Denies chills. EYES: Denies blurred vision. Denies vision changes. Denies eye pain. EARS, NOSE, MOUTH & THROAT: Denies headache. Denies sore throat. Denies ear pain. CARDIOVASCULAR: Denies chest pain. Denies shortness of breath. Denies orthopnea. Denies PND. Denies palpitations. RESPIRATORY: Denies cough. GASTROINTESTINAL: Denies abdominal pain. Denies diarrhea. Denies constipation. Denies nausea. Denies vomiting. MUSCULOSKELETAL: Denies myalgias. INTEGUMENTARY: Denies pruitis. Denies rash. NEUROLOGIC: Denies numbness. Denies tingling. Denies weakness. PSYCHIATRIC: Denies anxiety. Denies depression. ENDOCRINE: Denies fatigue. Denies weight change. Denies polydipsia. Denies polyurina. GENITOURINARY: Denies burning, hematuria or urgency with micturation. HEMATOLOGIC: Denies history of anemia. Denies bleeding. Past Medical History Past Medical History: COPD, CVA/TIA, Eye Disorder, GERD/Reflux, Hyperlipidemia, Hypertension, Osteoarthritis (OA), Prostate Disorder, Renal Disease, Sleep Apnea /CPAP/BIPAP, Syncope Additional Past Medical History / Comment(s): Multiple TIAs, CVA 01/2017 with dysphagia-peg tube inserted and now out, chronic kidney disease stage II, BPH, Uti, ROSA has Cpap but does not tolerate it, gastric ulcer, R eye cataract, R foot 3rd toe osteomylitis, arthritis multiple joints, past gastric ulcer, recent shingelles-healed per pt, left hand weakness History of Any Multi-Drug Resistant Organisms: None Reported Past Surgical History: Hernia Repair, Joint Replacement Additional Past Surgical History / Comment(s): 06/01/17 intracranial angioplasty-( pt stated "he has stents') HFH, EGD with peg tube insertion since removed, R inguinal hernia repair, R total knee arthroplasty, colonoscopies with last one in 2014-normal. Past Anesthesia/Blood Transfusion Reactions: No Reported Reaction Past Psychological History: No Psychological Hx Reported Additional Psychological History / Comment(s): Pt lives with his in 2 story home that has 4 front porch steps. Pt stays on first level. No pets. No home care services. Pt uses a walker to ambulate. Pt no longer drives, his spouse drives him to appts. Smoking Status: Former smoker Past Alcohol Use History: None Reported Additional Past Alcohol Use History / Comment(s): SMOKED < 1PPD FOR 25 YEARS EST. quit 2017 Past Drug Use History: None Reported - Past Family History Mother Family Medical History: CVA/TIA, Diabetes Mellitus, Hyperlipidemia, Hypertension Father Family Medical History: CVA/TIA, Hypertension Medications and Allergies Home Medications Medication Instructions Recorded Confirmed Type Atorvastatin [Lipitor] 80 mg PO HS 05/26/17 05/20/18 History Cholecalciferol [Vitamin D3] 1,000 unit PO QAM 05/26/17 05/20/18 History Tamsulosin HCl [Flomax] 0.4 mg PO QAM 05/26/17 05/20/18 History Ferrous Sulfate [Feosol] 325 mg PO BID 06/29/17 05/20/18 History Ranitidine HCl [Zantac] 150 mg PO BID 07/13/17 05/20/18 History Sertraline [Zoloft] 25 mg PO DAILY 08/28/17 05/20/18 History Tolterodine Tartrate [Detrol LA] 4 mg PO DAILY 08/28/17 05/20/18 History Clopidogrel [Plavix] 75 mg PO DAILY #30 tab 11/24/17 05/20/18 Rx Aspirin EC [Ecotrin Low Dose] 81 mg PO DAILY 02/12/18 05/20/18 History Docusate [Colace] 100 mg PO DAILY PRN 02/12/18 05/20/18 History Lactulose 10 gm PO BID PRN #100 ml 04/24/18 05/20/18 Rx amLODIPine [Norvasc] 5 mg PO QAM #0 05/16/18 05/20/18 Rx Allergies Allergy/AdvReac Type Severity Reaction Status Date / Time No Known Allergies Allergy Verified 05/20/18 14:03 Physical Exam Vitals: Vital Signs Temp Pulse Pulse Pulse Pulse Pulse Resp 05/21/18 04:00 16 05/21/18 03:50 97.8 F 75 16 05/21/18 00:00 16 05/20/18 23:51 98.9 F 69 16 05/20/18 20:00 16 05/20/18 19:53 98.4 F 87 95 80 16 05/20/18 19:30 05/20/18 17:45 16 05/20/18 16:50 98.4 F 64 16 05/20/18 16:09 98 F 62 16 05/20/18 15:00 63 05/20/18 13:26 98.4 F 57 L 16 BP BP BP BP BP Pulse Ox 05/21/18 04:00 05/21/18 03:50 150/83 98 05/21/18 00:00 05/20/18 23:51 138/77 97 05/20/18 20:00 05/20/18 19:53 130/75 123/72 122/68 99 05/20/18 19:30 98 05/20/18 17:45 05/20/18 16:50 135/82 114/77 138/78 100 05/20/18 16:09 144/79 100 05/20/18 15:00 135/78 100 05/20/18 13:26 106/65 100 Intake and Output 05/20/18 05/21/18 05/21/18 22:59 06:59 14:59 Other: Voiding Method Urinal Urinal Diaper Diaper Incontinent Incontinent # Voids 1 Weight 78.925 kg Blood pressure 150/83 heart rate 75 afebrile maintaining oxygen saturation on room air GENERAL: This is a 67-year-old -Maced[place] male in no apparent distress at the time of my examination. HEENT: Head is atraumatic, normocephalic. Pupils are equal, round. Sclerae anicteric. Conjunctivae are clear. Mucous membranes of the mouth are moist. Neck is supple. There is no jugular venous distention. No carotid bruit is heard. LUNGS: Clear to auscultation no wheezes, rales or rhonchi. No chest wall tenderness is noted on palpation or with deep breathing. HEART: Regular rate and rhythm without murmurs, rubs or gallops. S1 and S2 heard. ABDOMEN: Soft, nontender. Bowel sounds are heard. No organomegaly noted. EXTREMITIES: No evidence of peripheral edema and no calf tenderness noted. VASCULAR: Radial and dorsalis pedis pulses palpated, no evidence of clubbing. NEUROLOGIC: Patient is awake, alert and oriented x3. Results 05/21/18 06:31 05/21/18 06:31 Cardiac Enzymes 05/20/18 05/20/18 Range/Units 13:36 13:36 AST 28 (17-59) U/L CK-MB (CK-2) 0.8 (0.0-2.4) ng/mL Troponin I <0.012 (0.000-0.034) ng/mL Coagulation 05/20/18 Range/Units 13:36 PT 9.8 (9.0-12.0) sec APTT 23.1 (22.0-30.0) sec CBC 05/20/18 05/21/18 Range/Units 13:36 06:31 WBC 5.4 4.9 (3.8-10.6) k/uL RBC 3.64 L 3.46 L (4.30-5.90) m/uL Hgb 10.7 L 10.2 L (13.0-17.5) gm/dL Hct 33.9 L 32.3 L (39.0-53.0) % Plt Count 292 273 (150-450) k/uL Comprehensive Metabolic Panel 05/20/18 05/21/18 Range/Units 13:36 06:31 Sodium 140 139 (137-145) mmol/L Potassium 3.8 3.8 (3.5-5.1) mmol/L Chloride 103 106 (98-107) mmol/L Carbon Dioxide 28 26 (22-30) mmol/L BUN 18 16 (9-20) mg/dL Creatinine 1.55 H 1.11 (0.66-1.25) mg/dL Glucose 126 H 78 (74-99) mg/dL Calcium 9.5 9.1 (8.4-10.2) mg/dL AST 28 (17-59) U/L ALT 43 (21-72) U/L Alkaline Phosphatase 102 (38-126) U/L Total Protein 7.1 (6.3-8.2) g/dL Albumin 4.1 (3.5-5.0) g/dL Current Medications Generic Name Dose Route Start Last Admin Trade Name Freq PRN Reason Stop Dose Admin Aspirin 81 mg 05/21/18 09:00 Aspirin PO DAILY [facility] Atorvastatin Calcium 80 mg 05/20/18 21:37 05/20/18 22:20 Lipitor PO 80 mg HS [facility] Administration Cholecalciferol 1,000 unit 05/21/18 09:00 Vitamin D3 PO QAM [facility] Clopidogrel Bisulfate 75 mg 05/21/18 09:00 Plavix PO DAILY [facility] Docusate Sodium 100 mg 05/20/18 21:13 Colace PO DAILY PRN Constipation Famotidine 20 mg 05/20/18 21:45 05/20/18 22:20 Pepcid PO 20 mg BID [facility] Administration Ferrous Sulfate 325 mg 05/20/18 21:45 05/20/18 22:20 Feosol PO 325 mg BID [facility] Administration Heparin Sodium (Porcine) 5,000 unit 05/21/18 09:00 Heparin SQ Q12HR [facility] Sodium Chloride 1,000 mls @ 75 mls/hr 05/20/18 21:15 05/20/18 22:20 Saline 0.9% IV 75 mls/hr .[id number] [facility] Administration Lactulose 10 gm 05/20/18 21:13 Cephulac PO BID PRN Constipation Oxybutynin Chloride 10 mg 05/21/18 09:00 Ditropan Xl PO DAILY [facility] Sertraline HCl 25 mg 05/21/18 09:00 Zoloft PO DAILY [facility] Tamsulosin HCl 0.4 mg 05/21/18 09:00 Flomax PO QAM [facility] Intake and Output 05/20/18 05/21/18 05/21/18 22:59 06:59 14:59 Other: Voiding Method Urinal Urinal Diaper Diaper Incontinent Incontinent # Voids 1 Weight 78.925 kg 05/21/18 06:31 05/21/18 06:31 Assessment and Plan Assessment: ASSESSMENT Possible syncopal episode History of CVA with frequent TIAs Hypertension Dyslipidemia Former nicotine dependence, quit 2016 PLAN Obtain 2-D echocardiogram and Doppler study to assess cardiac structure and function. Check d-dimer and second troponin. If above diagnostic testing is normal he is stable from a cardiac perspective. Symptoms sound like TIA, possible neurologic evaluation warranted. Thank you kindly for this consultation. The above impression and plan of care have been discussed and directed by the signing physician. Heavenly Hurley, nurse practitioner, acting as scribe for signing physician.
--- NOTE | 2018-05-21 10:16 | ECHOF ---
Referral Reason:syncope MEASUREMENTS -------- HEIGHT: 188.0 cm WEIGHT: 78.9 kg BP: 156/99 RVIDd: 3.2 cm (< 3.3) IVSd: 1.5 cm (0.6 - 1.1) LVIDd: 4.3 cm (3.9 - 5.3) LVPWd: 1.6 cm (0.6 - 1.1) IVSs: 1.8 cm LVIDs: 3.2 cm LVPWs: 2.2 cm LA Diam: 3.6 cm (2.7 - 3.8) LAESV Index (A-L): 33.07 ml/m Ao Diam: 3.3 cm (2.0 - 3.7) AV Cusp: 2.2 cm (1.5 - 2.6) MV EXCURSION: 13.341 mm (> 18.000) MV EF SLOPE: 42 mm/s (70 - 150) EPSS: 0.7 cm MV E Shine: 0.81 m/s MV DecT: 246 ms MV A Shine: 1.04 m/s MV E/A Ratio: 0.78 RAP: 5.00 mmHg RVSP: 29.15 mmHg FINDINGS -------- Sinus rhythm. This was a technically good study. The left ventricular size is normal. There is moderate concentric left ventricular hypertrophy. O verall left ventricular systolic function is normal with, an EF between 55 - 60 %. The right ventricle is normal in size. LA is midly dilated 29-33ml/m2. The right atrium is normal in size. There is mild aortic valve sclerosis. The mitral valve leaflets are mildly thickened. Mild mitral regurgitation is present. Mild tricuspid regurgitation present. Right ventricular systolic pressure is normal at < 35 mmHg. Trace/mild (physiologic) pulmonic regurgitation. The aortic root size is normal. Normal inferior vena cava with normal inspiratory collapse consistent with estimated right atrial pre ssure of 5 mmHg. There is no pericardial effusion. CONCLUSIONS -------- 1. Sinus rhythm. 2. This was a technically good study. 3. The left ventricular size is normal. 4. There is moderate concentric left ventricular hypertrophy. 5. Overall left ventricular systolic function is normal with, an EF between 55 - 60 %. 6. The right ventricle is normal in size. 7. LA is midly dilated 29-33ml/m2. 8. The right atrium is normal in size. 9. There is mild aortic valve sclerosis. 10. The mitral valve leaflets are mildly thickened. 11. Mild mitral regurgitation is present. 12. Mild tricuspid regurgitation present. 13. Right ventricular systolic pressure is normal at < 35 mmHg. 14. Trace/mild (physiologic) pulmonic regurgitation. 15. The aortic root size is normal. 16. Normal inferior vena cava with normal inspiratory collapse consistent with estimated right atrial pressure of 5 mmHg. 17. There is no pericardial effusion. PAINTER AND PAPERHANGER APPRENTICE: Aviva Leone RDCS
[2018-05-21] MEDS: OXYBUTYNIN XL 5 MG TAB.ER.24 PO SCH (10:39)
[2018-05-21] MEDS: SERTRALINE 25 MG TAB PO SCH (10:39)
[2018-05-21] MEDS: ASPIRIN 81 MG PO SCH (10:39)
[2018-05-21] MEDS: FAMOTIDINE 20 MG TAB PO SCH ×2 (10:39→20:22)
[2018-05-21] MEDS: CLOPIDOGREL 75 MG TAB PO SCH (10:39)
[2018-05-21] MEDS: TAMSULOSIN 0.4 MG CAP.ER.24H PO SCH (10:40)
[2018-05-21] MEDS: CHOLECALCIFEROL 1,000 UNIT TAB PO SCH (10:40)
[2018-05-21] MEDS: FERROUS SULFATE 325 MG TAB PO SCH ×2 (10:40→20:22)
[2018-05-21] MEDS: HEPARIN SODIUM,PORCINE 5,000 UNIT/ML 1 ML VIAL SQ SCH ×2 (10:41→20:22)
[2018-05-21] MEDS: SODIUM CHLORIDE 0.9% 1,000 ML IV SCH (10:43)
--- NOTE | 2018-05-21 14:56 | NM ---
EXAMINATION TYPE: NM pul vent and perfuse DATE OF EXAM: 05/21/2018 COMPARISON: NONE HISTORY: Shortness of breath rule out pulmonary embolism TECHNIQUE: Utilizing inhalation of 38.4 mCi Tc 99m DTPA aerosol and intravenous injection of 5.14 mC i of Tc 99m MAA, ventilation and perfusion images are acquired post injection in multiple projections . FINDINGS: Normal radiotracer distribution is noted in the lungs. There is no evidence of mismatched defects. IMPRESSION: Very low probability for pulmonary embolism.
--- NOTE | 2018-05-21 15:38 | PN ---
PROGRESS NOTE DATE OF SERVICE: 05/21/2018 This is a 67-year-old gentleman who was admitted with syncope, is being closely monitored. The patient has history of multiple TIAs also cardiology evaluation in progress and a 2D echo has also been done which showed ejection fraction 50-60% and mild to mild abnormalities. PHYSICAL EXAM: Alert and oriented x3. Pulse is 69 blood pressure 140/83, respiration 18, temperature 98 degrees. Minimal orthostatic changes no orthostatic changes thanks ending is atenolol mucosa neck is no jugular venous distention. Cardiovascular system: No stenosis pressure in the bases. No rhonchi. No crackles. ABDOMEN: Soft, nontender. No mass. Legs: No edema. No swelling. LABS: D-dimer 0.69. Otherwise, creatinine is 1.11. Assessment. 1. Syncope, possibly rule out orthostatic hypotension and rule out cardiac arrhythmia. 2. History of recurrent syncope. 3. Possible transient ischemic attack. 4. History of increased creatinine to continue, current management and treatment otherwise at this time, I would also recommend a V/Q scan to complete the workup, otherwise guarded prognosis. Further recommendations to follow. .. MMMADALYNL / IJN: [id number] /
[2018-05-21] MEDS: ATORVASTATIN 80 MG TAB PO SCH (20:22)
[2018-05-21] MEDS ORDERED: ATORVASTATIN 80 MG TAB PO SCH (21:00)
--- NOTE | 2018-05-21 22:11 | CONS ---
CONSULTATION DATE OF CONSULTATION: 05/21/2018 CHIEF COMPLAINT: Syncope. HISTORY OF PRESENT ILLNESS: Mr. Sesay is a pleasant 67-year-old male who is being evaluated by the Neurology service per the request of Dr. Church for a syncopal spell. The patient is well known to the Neurology service with multiple previous admissions to the hospital for transient ischemic attacks and a history of strokes. He was brought into [facility] Emergency Room after he had a syncopal episode at home. The patient states that he was sitting at the table having breakfast when he became dizzy. He describes the dizziness as a lightheaded sensation. He tried to get up and then lost consciousness. No seizure-like activity was described. When the patient woke up, there was no significant confusion reported. He did not have any sphincter incontinence or tongue biting. No seizure-like activity was described. A CT scan of the brain was done in the emergency room, which showed no acute findings. Old lacunar infarcts were seen in the basal ganglia and small vessel ischemic changes were also seen. His CBC showed anemia with a hemoglobin of 10.2 and hematocrit of 32%. His cardiac enzymes were negative. His comprehensive metabolic profile showed renal insufficiency with a creatinine of 1.55. He was started on IV hydration and admitted for further management. A repeat basic metabolic profile showed improvement in his creatinine at 1.11. At the time of my evaluation, he is laying in his bed and appears to be in no acute distress. He denies any dizziness or lightheadedness at this time. PAST MEDICAL HISTORY: Of strokes, transient ischemic attacks, chronic obstructive pulmonary disease, gastroesophageal reflux disease, dyslipidemia, benign prostatic hypertrophy, degenerative joint disease, hernia repair, iron deficiency, dyslipidemia. FAMILY HISTORY: Positive for diabetes, hypertension, dyslipidemia, and strokes. SOCIAL HISTORY: The patient is a former smoker. There is no history of any alcohol or drug use. HOME MEDICATIONS: Reviewed in the chart. ALLERGIES: No known drug allergies. REVIEW OF SYSTEMS: CONSTITUTIONAL: Positive for fatigue. EYES: Negative. ENT: Negative. CARDIOVASCULAR: As mentioned above. RESPIRATORY: Positive for occasional shortness of breath. NEUROLOGICAL: As mentioned above. GASTROINTESTINAL: Positive for occasional heartburn. GENITOURINARY: Positive for prostatic hypertrophy. PSYCHIATRIC: Negative. ENDOCRINE: Negative. DERMATOLOGICAL: Negative. MUSCULOSKELETAL: Positive for frequent joint pain. PHYSICAL EXAM: Vital signs show a temperature of 97.4, pulse 75, respiration 18, blood pressure 135/78. Orthostatics were done and there was no evidence of orthostatic hypotension. GENERAL APPEARANCE: The patient is a thin, elderly male, who appears to be in no acute distress. HEENT: Normocephalic, atraumatic, left facial drooping is seen. NECK: Supple with no masses felt. CARDIOVASCULAR: Regular rate and rhythm. ABDOMEN: Nontender, nondistended. Extremities showed no edema or clubbing. NEUROLOGICAL EXAM: The patient is alert aware and oriented to person and place. He could not recall the year. Strength is 5-/5 in bilateral upper extremities and 4+/5 in bilateral lower extremities. Sensory exam showed normal light touch sensation in all 4 extremities. Mild postural tremors are seen. Cranial nerve testing showed left facial drooping. IMPRESSION: 1. Syncopal episode. 2. History of strokes and transient ischemic attack. 3. Anemia. 4. Renal insufficiency. 5. Dehydration. RECOMMENDATION: The patient does appear to have suffered a syncopal episode likely due to dehydration as his renal function was abnormal on admission. He has been started on IV hydration and his repeat labs did show improvement in his creatinine. He does have a moderate anemia, which may have contributed to his symptoms. An EEG has been ordered. I did review his CT scan of the brain, which showed no acute findings. Continue anti- platelet therapy for his history of strokes and transient ischemic attacks. The patient did have a recent carotid Doppler and there was no need to repeat this at this time. Continue neuro checks. I will continue to follow with you. Further recommendations to follow. Thank you for allowing me to participate in the care of your patient. If you have any questions, please feel free to contact me. MMMADALYNL / IJN: [id number] /
[2018-05-22 06:10] VITALS: BP 164/94; RESP 16; TEMP 97.7
[2018-05-22] MEDS: HEPARIN SODIUM,PORCINE 5,000 UNIT/ML 1 ML VIAL SQ SCH (07:50)
[2018-05-22] MEDS: CHOLECALCIFEROL 1,000 UNIT TAB PO SCH (07:51)
[2018-05-22] MEDS: FERROUS SULFATE 325 MG TAB PO SCH (07:51)
[2018-05-22] MEDS: ASPIRIN 81 MG PO SCH (07:51)
[2018-05-22] MEDS: SODIUM CHLORIDE 0.9% 1,000 ML IV SCH (07:51)
[2018-05-22] MEDS: OXYBUTYNIN XL 5 MG TAB.ER.24 PO SCH (07:51)
[2018-05-22] MEDS: FAMOTIDINE 20 MG TAB PO SCH (07:51)
[2018-05-22] MEDS: CLOPIDOGREL 75 MG TAB PO SCH (07:51)
[2018-05-22] MEDS: TAMSULOSIN 0.4 MG CAP.ER.24H PO SCH (07:51)
[2018-05-22] MEDS: SERTRALINE 25 MG TAB PO SCH (07:52)
[2018-05-22 12:32] VITALS: PULSE 66
--- NOTE | 2018-05-22 16:01 | P.PN ---
Subjective Progress Note Date: 05/22/18 Principal diagnosis: Syncope Patient is a 67-year-old male being followed by neurology for syncopal episode. Patient is known to neurology for multiple previous admissions, TIA and history of strokes. Is brought to the emergency room after having a syncopal episode at home. Patient reports sitting in a kitchen table, having breakfast, became dizzy, had lightheaded sensation. Patient attempted to get up from seated position and lost consciousness. No seizure-like activity was reported or observed. Upon waking, patient was not significantly confused. Patient does not have any sphincter incontinence or tongue biting. No seizure activity was described. Computed tomography scan of the brain in the ED showed no acute findings. Old lacunar infarcts noted in the basal ganglia and small vessel ischemic changes were seen. CBC showed anemia. Cardiac enzymes are negative. CMP showed renal insufficiency. Patient was started on IV fluids and admitted for further management. Patient denied any lightheadedness or dizziness at the time of evaluation. On contact today, patient was alert and oriented 3, seated upright in bed with family at the bedside. Patient was in no acute distress. Patient reports no neurological status changes within the previous 24 hours. Nursing confirms no neurological status changes as well. No seizure-like activity observed or reported. No syncopal activity observed or reported. Objective - Vital Signs Vital signs: Vital Signs Temp 97.7 F 05/22/18 05:10 Pulse 66 05/22/18 07:50 Resp 16 05/22/18 07:50 BP 164/94 05/22/18 05:10 Pulse Ox 98 05/22/18 05:10 Intake & Output 05/21/18 05/22/18 05/22/18 18:59 06:59 18:59 Intake Total 300 600 525 Balance 300 600 525 Weight 78.925 kg Intake: Intake, IV Titration 600 525 Amount Sodium Chloride 0.9% 1, 600 525 000 ml @ 75 mls/hr IV . [id number] [facility] Rx#:[id number] Oral 300 Other: Voiding Method Urinal Urinal Urinal Diaper Diaper Diaper Incontinent Incontinent Incontinent # Voids 1 3 - Exam Gen. appearance: Alert, in no apparent distress Head: Atraumatic normocephalic, normal inspection Eyes: Well appearance, PERRL, EOMI. absent: Scleral icterus, conjunctival injection, nystagmus, periorbital swelling. Ear nose and throat: Normal exam, mucous membranes moist Neck: Normal inspection. Absent tenderness, lymphadenopathy Respiratory: No increased work of breathing. Cardiovascular: Regular rate, normal rhythm, normal heart sounds. Absent systolic murmur, diastolic murmur, rubs, gallops, clicks GIabdominal: Normal bowel sounds, non distended, no tenderness, no guarding, no rebound, no rigidity. Extremities: Full range of motion in all 4 extremities, bilateral upper extremities 5 minus out of 5, bilateral lower extremities 4+ out of 5. Neurological: Alert and oriented 3, cranial nerves II through XII intact, left facial droop noted, no seizure activity noted on physical exam, no pronator drift and no nystagmus, mild postural tremors Psychological: Mood and affect appropriate setting - Labs CBC & Chem 7: 05/21/18 06:31 05/21/18 06:31 Assessment and Plan (1) Syncope Status: Acute Code(s): R55 - SYNCOPE AND COLLAPSE SNOMED Code(s): 511464997 (2) Anemia Status: Acute Code(s): D64.9 - ANEMIA, UNSPECIFIED SNOMED Code(s): 021666943 (3) JENNIFER (acute kidney injury) Status: Acute Code(s): N17.9 - ACUTE KIDNEY FAILURE, UNSPECIFIED SNOMED Code (s): 26007197 (4) TIA (transient ischemic attack) Status: Acute Code(s): G45.9 - TRANSIENT CEREBRAL ISCHEMIC ATTACK, UNSPECIFIED SNOMED Code(s): 586178494 Plan: 1. Syncope Patient's symptoms and observations appear consistent with syncope not seizure at this time. See previous notations in HPI. EEG taken, waiting for report Carotid Doppler was recently taken, no need to repeat at this time. 2. Anemia Laboratory blood work reflects anemia as noted previously. Continue to correct underlying etiology Management per primary team 3. Renal insufficiency Laboratory blood work reflects renal insufficiency Continue to correct underlying etiology Management per primary team 4. History of TIA or stroke: Patient's CT brain notes remote lacunar infarct in stable from previous exam. STATUS: Patient cleared for discharge from a neurological standpoint. Advise patient to contact our office within 10-14 days for follow-up office visit. Ferel free to contact our office with any questions. I discussed the patients history, physical exam, diagnostic testing, lab work and imaging with Dr Silverio prior to implementing the plan above. He agrees with the plan as implemented prior to implementation.
--- NOTE | 2018-05-22 17:19 | DS ---
DISCHARGE SUMMARY DATE OF SERVICE: 05/22/2018. FINAL DIAGNOSES: 1. Syncope possibly vasovagal or orthostatic hypotension. 2. History of recurrent syncope. 3. Transient ischemic attack. 4. Increased creatinine. DISCHARGE DISPOSITION: The patient will be discharged in stable condition with guarded prognosis. HISTORY OF PRESENT ILLNESS: This 67-year-old gentleman with past medical history of multiple medical problems was admitted with history of syncope. Orthostatic hypotension was considered. The Norvasc was stopped and medication adjusted and patient hydrated. Patient improved significantly. On exam, vitals are stable. Cardiovascular: S1, S2. Abdomen: Soft. Nervous System: No focal deficit. DISCHARGE ADVICE: 1. Diet is cardiac. 2. Activities limited until followup. 3. Follow up with Dr. Luke in 2-3 days. MEDICATIONS: 1. Ecotrin 81 mg p.o. daily. 2. Lipitor 80 mg q.h.s. 3. Vitamin D 3000 daily. 4. Colace 100 mg p.o. 5. Iron sulfate 325 mg p.o. b.i.d. 6. Zantac 150 mg b.i.d. 7. Zoloft 50 mg. 8. Flomax 0.4 each morning. 9. Detrol LA 4 mg p.o. daily. 10.Plavix 75 mg p.o. daily. 11.Lactulose p.r.n. Monitor blood pressure closely. Home care, possible outpatient Holter monitor per Cardiology. MMODL / IJN: [id number] /
--- NOTE | 2018-05-22 18:59 | EEG ---
ELECTROENCEPHALOGRAM REPORT DATE OF SERVICE: 05/22/2018. REASON FOR TESTING: Syncope. DESCRIPTION OF THE PROCEDURE: This EEG was performed using a 21 channel digital electroencephalograph, following international 10-20 system. DESCRIPTION OF THE RECORDING: From the beginning of the tracing, and with patient's eyes closed, the background rhythm was mostly consisting of 8 Hz alpha frequency in the posterior occipital leads. No obvious asymmetry is seen. Photic stimulation was performed with a minimal driving response seen. No pathological waves were elicited. Frequent movement and muscle artifacts are seen. Hyperventilation was not performed. The patient does reach stage II of sleep during the tracing and occasional sleep spindles are seen. No epileptiform discharges were seen. His EKG lead showed a bradycardic rate with a normal rhythm. INTERPRETATION: This asleep and awake EEG can be considered within normal limits. There was no asymmetry seen. No epileptiform discharges were noticed. The absence of epileptiform discharges does not rule out the diagnosis of epilepsy; therefore, clinical correlation is recommended. Of note, his EKG lead showed a bradycardic rate with a normal rhythm. MMODL / IJN: [id number] /
== END 2018-05-22 15:35 | disposition home or self-care (01) ==
LOC: EC 13:22 → 3OBS 15:54 → 3SUR 22:59 → 5MS5E 05-21 18:30
PROVIDERS: ADMIT Hospitalist; ATTEND Hospitalist
DX: R55 Syncope and collapse (principal); E86.0 Dehydration; N17.9 Acute kidney failure, unspecified; I12.9 Hypertensive chronic kidney disease with stage 1 through stage 4 chronic kidney disease, or unspecified chronic kidney disease; N18.2 Chronic kidney disease, stage 2 (mild); D64.9 Anemia, unspecified; K21.9 Gastro-esophageal reflux disease without esophagitis; J44.9 Chronic obstructive pulmonary disease, unspecified; G47.33 Obstructive sleep apnea (adult) (pediatric); Z99.89 Dependence on other enabling machines and devices; E78.5 Hyperlipidemia, unspecified; H57.9 Unspecified disorder of eye and adnexa; N40.0 Benign prostatic hyperplasia without lower urinary tract symptoms; M15.9 Polyosteoarthritis, unspecified; E61.1 Iron deficiency; Z79.02 Long term (current) use of antithrombotics/antiplatelets; Z79.82 Long term (current) use of aspirin; Z79.899 Other long term (current) drug therapy; Z86.73 Personal history of transient ischemic attack (TIA), and cerebral infarction without residual deficits; Z87.11 Personal history of peptic ulcer disease; Z95.5 Presence of coronary angioplasty implant and graft; Z87.891 Personal history of nicotine dependence; Z96.651 Presence of right artificial knee joint; Z82.49 Family history of ischemic heart disease and other diseases of the circulatory system; Z83.49 Family history of other endocrine, nutritional and metabolic diseases; Z82.3 Family history of stroke; Z83.3 Family history of diabetes mellitus
CPT/HCPCS: 99285 ×2; 96360; 96361; 96372 ×2; 36415; 94760; 95816; 93005; 93306; 97161; 97165; 85379; 80053; 80048; 82550; 82553; 84484 ×2; 85025 ×2; 85610; 85730; 71046; 70450; 78582; G0378 ×3; A9540; A9567; J1644 ×2

== ENCOUNTER → 2018-06-18 | Outpatient (CLI) | payer MEDICARE, BC | END | disposition home or self-care (01) | LOC: RADECHMAIN 12:04 | PROVIDERS: ATTEND Family Medicine | DX: I10 Essential (primary) hypertension (principal) | CPT/HCPCS: 93270; 93271 ==

== ENCOUNTER 2018-06-24 16:02 | Emergency (ER) | payer MEDICARE, BC ==
[2018-06-24 16:09] LABS: Glucose,Whole Blood 98 mg/dL (75-99)
[2018-06-24] MEDS ORDERED: SODIUM CHLORIDE 0.9% 1,000 ML IV STA (16:18)
[2018-06-24 16:31] LABS: Anisocytosis Slight; Basophils % (A) 1 %; Eosinophils # (A) 0.1 k/uL (0-0.7); Eosinophils % (A) 2 %; HCT 32.6 % (39.0-53.0); HGB 10.2 gm/dL (13.0-17.5); Lymphocytes # (A) 1.7 k/uL (1.0-4.8); Lymphocytes % (A) 31 %; MCH 29.9 pg (25.0-35.0); MCHC 31.2 g/dL (31.0-37.0); MCV 95.9 fL (80.0-100.0); Mean Platelet Volume 6.6; Monocytes # (A) 0.4 k/uL (0-1.0); Monocytes % (A) 7 %; Neutrophils # (A) 3.2 k/uL (1.3-7.7); Neutrophils % (A) 58 %; Platelet Count 240 k/uL (150-450); RDW 17.7 % (11.5-15.5); WBC 5.5 k/uL (3.8-10.6)
--- NOTE | 2018-06-24 16:34 | ED ---
General Adult HPI - General Chief complaint: Dizziness Stated complaint: dizziness Time Seen by Provider: 06/24/18 16:17 Source: EMS Mode of arrival: ambulatory Limitations: no limitations - History of Present Illness Initial comments: Abram is a 67-year-old male with history documented below who presents to the emergency department today via EMS for evaluation of lightheadedness. The patient reports that he was sitting waxing on this hot day and is home which has no air conditioning, his significant other left for work and when he stood to walk across the house he felt very lightheaded. He became scared because he was home alone and didn't want to have a fainting spell so he called 911. He reports this feeling that he got lightheaded and may pass out happened immediately after standing after sitting in the hot weather. Symptoms resolved upon sitting. Patient denies any chest pain, palpitations, diaphoresis. He reports that his COPD has been under control is not having any worsening shortness of breath. Any recent illness including nausea, vomiting, change in bowel or bladder habits. He reports he's been eating his usual diet. - Related Data Home Medications Medication Instructions Recorded Confirmed Atorvastatin [Lipitor] 80 mg PO HS 05/26/17 06/24/18 Cholecalciferol [Vitamin D3] 1,000 unit PO DAILY 05/26/17 06/24/18 Tamsulosin HCl [Flomax] 0.4 mg PO QAM 05/26/17 06/24/18 Ferrous Sulfate [Feosol] 325 mg PO BID 06/29/17 06/24/18 Ranitidine HCl [Zantac] 150 mg PO BID 07/13/17 06/24/18 Sertraline [Zoloft] 25 mg PO DAILY 08/28/17 06/24/18 Tolterodine Tartrate [Detrol LA] 4 mg PO DAILY 08/28/17 06/24/18 Aspirin EC [Ecotrin Low Dose] 81 mg PO DAILY 02/12/18 06/24/18 Aspirin 325 mg PO DAILY 06/24/18 06/24/18 Budesonide [Pulmicort] 0.5 mg INHALATION RT-BID 06/24/18 06/24/18 Ipratropium-Albuterol Nebulize 3 ml INHALATION RT-QID 06/24/18 06/24/18 [Duoneb 0.5 mg-3 mg/3 ml Soln] Ketoconazole 2% Shampoo [Nizoral] 1 applic TOPICAL DAILY 06/24/18 06/24/18 Vitamin E 1,000 unit PO DAILY 06/24/18 06/24/18 Previous Rx's Medication Instructions Recorded Clopidogrel [Plavix] 75 mg PO DAILY #30 tab 11/24/17 Lactulose 10 gm PO BID PRN #100 ml 04/24/18 Allergies Allergy/AdvReac Type Severity Reaction Status Date / Time No Known Allergies Allergy Verified 06/24/18 16:50 Review of Systems ROS Statement: Those systems with pertinent positive or pertinent negative responses have been documented in the HPI. ROS Other: All systems not noted in ROS Statement are negative. Past Medical History Past Medical History: COPD, CVA/TIA, Eye Disorder, GERD/Reflux, Hyperlipidemia, Hypertension, Osteoarthritis (OA), Prostate Disorder, Renal Disease, Sleep Apnea /CPAP/BIPAP, Syncope Additional Past Medical History / Comment(s): Multiple TIAs, CVA 01/2017 with dysphagia-peg tube inserted and now out, chronic kidney disease stage II, BPH, Uti, ROSA has Cpap but does not tolerate it, gastric ulcer, R eye cataract, R foot 3rd toe osteomylitis, arthritis multiple joints, past gastric ulcer, recent shingelles-healed per pt, left hand weakness History of Any Multi-Drug Resistant Organisms: None Reported Past Surgical History: Hernia Repair, Joint Replacement Additional Past Surgical History / Comment(s): 06/01/17 intracranial angioplasty-( pt stated "he has stents') HFH, EGD with peg tube insertion since removed, R inguinal hernia repair, R total knee arthroplasty, colonoscopies with last one in 2014-normal. Past Anesthesia/Blood Transfusion Reactions: No Reported Reaction Past Psychological History: No Psychological Hx Reported Smoking Status: Former smoker Past Alcohol Use History: None Reported Past Drug Use History: None Reported - Past Family History Mother Family Medical History: CVA/TIA, Diabetes Mellitus, Hyperlipidemia, Hypertension Father Family Medical History: CVA/TIA, Hypertension General Exam Limitations: no limitations Course Vital Signs 06/24/18 06/24/18 06/24/18 16:08 19:08 19:43 Temperature 98.2 F 98.7 F Pulse Rate 73 63 62 Respiratory 18 17 16 Rate Blood Pressure 138/76 177/101 173/89 O2 Sat by Pulse 95 99 97 Oximetry EKG Findings - EKG Comments: EKG Findings:: EKG rate of 70, and is rhythm, no acute ST elevations or depressions no evidence of acute ischemia or infarction no change in morphology from previous. Medical Decision Making - Medical Decision Making Patient was seen and evaluated, history was obtained from the patient and review of medical records Patient was sitting out in the heat when he stood he felt very lightheaded and became scared because he is homeless we call 911, no chest pain, COPD is under control. Labs and imaging were ordered Orthostatic blood pressures negative Labs at baseline The patient received some IV fluids and rested comfortably in the ER, family arrived at bedside. At this time the patient feels comfortable being discharged home. Return parameters were discussed. All questions pertaining to care were answered best my ability the patient was discharged home in stable condition. - Lab Data Result diagrams: 06/24/18 16:09 06/24/18 16:09 Lab Results 06/24/18 06/24/18 06/24/18 Range/Units 16:07 16:09 16:09 WBC 5.5 (3.8-10.6) k/uL RBC 3.40 L (4.30-5.90) m/uL Hgb 10.2 L (13.0-17.5) gm/dL Hct 32.6 L (39.0-53.0) % MCV 95.9 (80.0-100.0) fL MCH 29.9 (25.0-35.0) pg MCHC 31.2 (31.0-37.0) g/dL RDW 17.7 H (11.5-15.5) % Plt Count 240 (150-450) k/uL Neutrophils % 58 % Lymphocytes % 31 % Monocytes % 7 % Eosinophils % 2 % Basophils % 1 % Neutrophils # 3.2 (1.3-7.7) k/uL Lymphocytes # 1.7 (1.0-4.8) k/uL Monocytes # 0.4 (0-1.0) k/uL Eosinophils # 0.1 (0-0.7) k/uL Basophils # 0.0 (0-0.2) k/uL Anisocytosis Slight PT (9.0-12.0) sec INR (<1.2) APTT (22.0-30.0) sec Sodium (137-145) mmol/L Potassium (3.5-5.1) mmol/L Chloride (98-107) mmol/L Carbon Dioxide (22-30) mmol/L Anion Gap mmol/L BUN (9-20) mg/dL Creatinine (0.66-1.25) mg/dL Est GFR (CKD-EPI)AfAm (>60 ml/min/1.73 sqM) Est GFR (CKD-EPI)NonAf (>60 ml/min/1.73 sqM) Glucose (74-99) mg/dL POC Glucose (mg/dL) 98 (75-99) mg/dL POC Glu [employer] ID Britta Alcantar Calcium (8.4-10.2) mg/dL Magnesium (1.6-2.3) mg/dL Total Bilirubin (0.2-1.3) mg/dL AST (17-59) U/L ALT (21-72) U/L Alkaline Phosphatase (38-126) U/L Total Creatine Kinase 90 (55-170) U/L CK-MB (CK-2) 0.8 (0.0-2.4) ng/mL CK-MB (CK-2) Rel Index 0.9 Troponin I <0.012 (0.000-0.034) ng/mL Total Protein (6.3-8.2) g/dL Albumin (3.5-5.0) g/dL 06/24/18 06/24/18 Range/Units 16:09 16:09 WBC (3.8-10.6) k/uL RBC (4.30-5.90) m/uL Hgb (13.0-17.5) gm/dL Hct (39.0-53.0) % MCV (80.0-100.0) fL MCH (25.0-35.0) pg MCHC (31.0-37.0) g/dL RDW (11.5-15.5) % Plt Count (150-450) k/uL Neutrophils % % Lymphocytes % % Monocytes % % Eosinophils % % Basophils % % Neutrophils # (1.3-7.7) k/uL Lymphocytes # (1.0-4.8) k/uL Monocytes # (0-1.0) k/uL Eosinophils # (0-0.7) k/uL Basophils # (0-0.2) k/uL Anisocytosis PT 9.8 (9.0-12.0) sec INR 1.0 (<1.2) APTT 25.3 (22.0-30.0) sec Sodium 138 (137-145) mmol/L Potassium 4.0 (3.5-5.1) mmol/L Chloride 105 (98-107) mmol/L Carbon Dioxide 24 (22-30) mmol/L Anion Gap 9 mmol/L BUN 24 H (9-20) mg/dL Creatinine 1.50 H (0.66-1.25) mg/dL Est GFR (CKD-EPI)AfAm 55 (>60 ml/min/1.73 sqM) Est GFR (CKD-EPI)NonAf 47 (>60 ml/min/1.73 sqM) Glucose 95 (74-99) mg/dL POC Glucose (mg/dL) (75-99) mg/dL POC Glu [employer] Se[employer] T[employer] ID Calcium 9.3 (8.4-10.2) mg/dL Magnesium 1.8 (1.6-2.3) mg/dL Total Bilirubin 0.4 (0.2-1.3) mg/dL AST 25 (17-59) U/L ALT 38 (21-72) U/L Alkaline Phosphatase 87 (38-126) U/L Total Creatine Kinase (55-170) U/L CK-MB (CK-2) (0.0-2.4) ng/mL CK-MB (CK-2) Rel Index Troponin I (0.000-0.034) ng/mL Total Protein 7.0 (6.3-8.2) g/dL Albumin 3.8 (3.5-5.0) g/dL Disposition Clinical Impression: Heat exhaustion Disposition: HOME SELF-CARE Condition: Good Instructions: Heat Exhaustion (ED), Dizziness (ED) Is patient prescribed a controlled substance at d/c from ED?: No Referrals: Rick Luke MD [Primary Care Provider] - 1-2 days Time of Disposition: 19:18
[2018-06-24 16:40] LABS: Partial Thromboplastin Time 25.3 sec (22.0-30.0); Prothrombin Time 9.8 sec (9.0-12.0)
[2018-06-24 16:44] LABS: Albumin 3.8 g/dL (3.5-5.0); Calcium 9.3 mg/dL (8.4-10.2); Creatine Kinase 90 U/L (55-170); Magnesium 1.8 mg/dL (1.6-2.3); Total Bilirubin 0.4 mg/dL (0.2-1.3)
[2018-06-24 16:56] LABS: Creatine Kinase MB 0.8 ng/mL (0.0-2.4); Troponin I <0.012 ng/mL (0.000-0.034)
--- NOTE | 2018-06-24 17:37 | XR ---
EXAMINATION TYPE: XR chest 2V DATE OF EXAM: 06/24/2018 COMPARISON: 05/15/2018 HISTORY: Chest pain TECHNIQUE: Frontal and lateral views of the chest are obtained. FINDINGS: There is no heart failure nor confluent pneumonic infiltrate. There are chest leads. Costo phrenic angles are clear. Bony thorax appears intact. IMPRESSION: No active cardiopulmonary disease. Normal heart. No change.
[2018-06-24 19:46] VITALS: BP 173/89; PULSE 62; RESP 16; TEMP 98.7
== END 2018-06-24 19:46 | disposition home or self-care (01) ==
LOC: EC 16:02
DX: T67.5XXA Heat exhaustion, unspecified, initial encounter (principal); J44.9 Chronic obstructive pulmonary disease, unspecified; K21.9 Gastro-esophageal reflux disease without esophagitis; E78.5 Hyperlipidemia, unspecified; N40.0 Benign prostatic hyperplasia without lower urinary tract symptoms; G47.33 Obstructive sleep apnea (adult) (pediatric); Z99.89 Dependence on other enabling machines and devices; Z86.73 Personal history of transient ischemic attack (TIA), and cerebral infarction without residual deficits; Z96.651 Presence of right artificial knee joint; Z87.891 Personal history of nicotine dependence; Z79.82 Long term (current) use of aspirin; Z79.51 Long term (current) use of inhaled steroids; Z79.899 Other long term (current) drug therapy
CPT/HCPCS: 36415; 71046; 80053; 82550; 82553; 83735; 84484; 85025; 85610; 85730; 93005; 96360; 99285

== ENCOUNTER 2018-10-07 14:38 | Observation (INO) | payer MEDICARE, BC ==
[2018-10-07] MEDS ORDERED: SODIUM CHLORIDE 0.9% 500 ML 500 ML IV STA (15:09)
--- NOTE | 2018-10-07 15:15 | ED ---
General Adult HPI - General Chief complaint: Syncope Stated complaint: near syncope Time Seen by Provider: 10/07/18 14:45 Source: patient, EMS, RN notes reviewed Mode of arrival: EMS Limitations: no limitations - History of Present Illness Initial comments: This is a 67-year-old male presents emergency department with past medical history significant for TIA. Patient was at physical therapist today when he became lightheaded and almost passed out. Patient states it lasted about 10 minutes and completely resolved. Patient's blood pressure was taken at the scene and systolic was in the 70s according to the EMS report. Patient states he never had chest pain he was not short of breath or had any difficulty breathing. Patient denies having passed out. Patient denies any abdominal pain patient denies nausea vomiting diarrhea. Patient denies any recent injury or trauma. Patient denies any focal areas of numbness or weakness. Patient denies any recent fever or chills. Patient has no complaints at this time. Patient requested we check his urine for UTI because he has had a history of some UTIs - Related Data Home Medications Medication Instructions Recorded Confirmed Atorvastatin [Lipitor] 80 mg PO HS 05/26/17 10/07/18 Cholecalciferol [Vitamin D3] 1,000 unit PO DAILY 05/26/17 10/07/18 Tamsulosin HCl [Flomax] 0.4 mg PO QAM 05/26/17 10/07/18 Ferrous Sulfate [Feosol] 325 mg PO BID 06/29/17 10/07/18 Ranitidine HCl [Zantac] 150 mg PO BID 07/13/17 10/07/18 Sertraline [Zoloft] 25 mg PO DAILY 08/28/17 10/07/18 Aspirin EC [Ecotrin Low Dose] 81 mg PO DAILY 02/12/18 10/07/18 Ketoconazole 2% Shampoo [Nizoral] 1 applic TOPICAL DAILY 06/24/18 10/07/18 amLODIPine [Norvasc] 5 mg PO DAILY 07/09/18 10/07/18 Budesonide [Pulmicort] 0.5 mg INHALATION RT-BID 10/07/18 10/07/18 Calcitriol 0.25 mcg PO DAILY 10/07/18 10/07/18 Ipratropium-Albuterol Nebulize 3 ml INHALATION RT-QID 10/07/18 10/07/18 [Duoneb 0.5 mg-3 mg/3 ml Soln] Previous Rx's Medication Instructions Recorded Clopidogrel [Plavix] 75 mg PO DAILY #30 tab 11/24/17 Lactulose 10 gm PO BID PRN #100 ml 04/24/18 Allergies Allergy/AdvReac Type Severity Reaction Status Date / Time No Known Allergies Allergy Verified 10/07/18 15:28 Review of Systems ROS Statement: Those systems with pertinent positive or pertinent negative responses have been documented in the HPI. ROS Other: All systems not noted in ROS Statement are negative. Past Medical History Past Medical History: COPD, CVA/TIA, Eye Disorder, GERD/Reflux, Hyperlipidemia, Hypertension, Osteoarthritis (OA), Prostate Disorder, Renal Disease, Sleep Apnea /CPAP/BIPAP, Syncope Additional Past Medical History / Comment(s): Multiple TIAs, CVA 01/2017 with dysphagia-peg tube inserted and now out, chronic kidney disease stage II, BPH, Uti, ROSA has Cpap but does not tolerate it, gastric ulcer, R eye cataract, R foot 3rd toe osteomylitis, arthritis multiple joints, past gastric ulcer, recent shingelles-healed per pt, left hand weakness History of Any Multi-Drug Resistant Organisms: None Reported Past Surgical History: Hernia Repair, Joint Replacement Additional Past Surgical History / Comment(s): 06/01/17 intracranial angioplasty-( pt stated "he has stents') HFH, EGD with peg tube insertion since removed, R inguinal hernia repair, R total knee arthroplasty, colonoscopies with last one in 2014-normal. Past Anesthesia/Blood Transfusion Reactions: No Reported Reaction Past Psychological History: No Psychological Hx Reported Smoking Status: Former smoker Past Alcohol Use History: None Reported Past Drug Use History: None Reported - Past Family History Mother Family Medical History: CVA/TIA, Diabetes Mellitus, Hyperlipidemia, Hypertension Father Family Medical History: CVA/TIA, Hypertension General Exam - General Exam Comments Initial Comments: GENERAL: Patient is well-developed and well-nourished. Patient is nontoxic and well- hydrated and is in no acute distress ENT: Neck is soft and supple. No significant lymphadenopathy is noted. Neck has full range of motion without eliciting any pain. EYES: The sclera were anicteric and conjunctiva were pink and moist. Extraocular movements were intact and pupils were equal round and reactive to light. Eyelids were unremarkable. PULMONARY: Unlabored respirations. Good breath sounds bilaterally. No audible rales rhonchi or wheezing was noted. CARDIOVASCULAR: There is a regular rate and rhythm without any murmurs gallops or rubs. ABDOMEN: Soft and nontender with normal bowel sounds. SKIN: Skin is clear with no lesions or rashes and otherwise unremarkable. NEUROLOGIC: Patient is alert and oriented x3. Cranial nerves II through XII are grossly intact. Motor and sensory are also intact. Normal speech, volume and content. Symmetrical smile. MUSCULOSKELETAL: Normal extremities with adequate strength and full range of motion. No lower extremity swelling or edema. No calf tenderness. LYMPHATICS: No significant lymphadenopathy is noted PSYCHIATRIC: Normal psychiatric evaluation. Limitations: no limitations Course Vital Signs 10/07/18 10/07/18 14:42 15:51 Temperature 97.8 F Pulse Rate 68 Pulse Rate [ 72 Sitting] Pulse Rate [ 75 Standing] Pulse Rate [ 68 Supine] Respiratory 16 Rate Blood Pressure 128/79 Blood Pressure 142/79 [Sitting] Blood Pressure 102/83 [Standing] Blood Pressure 151/91 [Supine] O2 Sat by Pulse 99 Oximetry Medical Decision Making - Medical Decision Making EKG shows normal sinus rhythm at 60 bpm SD interval is 184 QRS is 88 QT interval is 410 QTC is 435. Patient's EKG shows no ST segment elevation or depression or T wave abnormalities are noted. CT of the brain shows no acute abnormality. Chest x-ray shows no acute normalities. We attempted to catheterize the patient for a urine but after the first attempt the did not want us to try anymore. - Lab Data Result diagrams: 10/07/18 14:50 10/07/18 14:50 Lab Results 10/07/18 10/07/18 10/07/18 Range/Units 14:50 14:50 14:50 WBC 6.6 (3.8-10.6) k/uL RBC 3.57 L (4.30-5.90) m/uL Hgb 11.4 L (13.0-17.5) gm/dL Hct 35.2 L (39.0-53.0) % MCV 98.8 (80.0-100.0) fL MCH 32.0 (25.0-35.0) pg MCHC 32.4 (31.0-37.0) g/dL RDW 18.2 H (11.5-15.5) % Plt Count 245 (150-450) k/uL Neutrophils % 65 % Lymphocytes % 25 % Monocytes % 5 % Eosinophils % 2 % Basophils % 1 % Neutrophils # 4.3 (1.3-7.7) k/uL Lymphocytes # 1.7 (1.0-4.8) k/uL Monocytes # 0.3 (0-1.0) k/uL Eosinophils # 0.1 (0-0.7) k/uL Basophils # 0.0 (0-0.2) k/uL Anisocytosis Slight Macrocytosis Slight PT (9.0-12.0) sec INR (<1.2) APTT (22.0-30.0) sec Sodium 140 (137-145) mmol/L Potassium 3.9 (3.5-5.1) mmol/L Chloride 104 (98-107) mmol/L Carbon Dioxide 26 (22-30) mmol/L Anion Gap 10 mmol/L BUN 23 H (9-20) mg/dL Creatinine 1.45 H (0.66-1.25) mg/dL Est GFR (CKD-EPI)AfAm 57 (>60 ml/min/1.73 sqM) Est GFR (CKD-EPI)NonAf 49 (>60 ml/min/1.73 sqM) Glucose 117 H (74-99) mg/dL Calcium 9.8 (8.4-10.2) mg/dL Magnesium 1.7 (1.6-2.3) mg/dL Total Bilirubin 0.4 (0.2-1.3) mg/dL AST 31 (17-59) U/L ALT 52 (21-72) U/L Alkaline Phosphatase 113 (38-126) U/L Total Creatine Kinase 75 (55-170) U/L CK-MB (CK-2) 0.8 (0.0-2.4) ng/mL CK-MB (CK-2) Rel Index 1.1 Troponin I <0.012 (0.000-0.034) ng/mL Total Protein 7.5 (6.3-8.2) g/dL Albumin 4.2 (3.5-5.0) g/dL 12//18 Range/Units 14:50 WBC (3.8-10.6) k/uL RBC (4.30-5.90) m/uL Hgb (13.0-17.5) gm/dL Hct (39.0-53.0) % MCV (80.0-100.0) fL MCH (25.0-35.0) pg MCHC (31.0-37.0) g/dL RDW (11.5-15.5) % Plt Count (150-450) k/uL Neutrophils % % Lymphocytes % % Monocytes % % Eosinophils % % Basophils % % Neutrophils # (1.3-7.7) k/uL Lymphocytes # (1.0-4.8) k/uL Monocytes # (0-1.0) k/uL Eosinophils # (0-0.7) k/uL Basophils # (0-0.2) k/uL Anisocytosis Macrocytosis PT 9.7 (9.0-12.0) sec INR 0.9 (<1.2) APTT 23.6 (22.0-30.0) sec Sodium (137-145) mmol/L Potassium (3.5-5.1) mmol/L Chloride (98-107) mmol/L Carbon Dioxide (22-30) mmol/L Anion Gap mmol/L BUN (9-20) mg/dL Creatinine (0.66-1.25) mg/dL Est GFR (CKD-EPI)AfAm (>60 ml/min/1.73 sqM) Est GFR (CKD-EPI)NonAf (>60 ml/min/1.73 sqM) Glucose (74-99) mg/dL Calcium (8.4-10.2) mg/dL Magnesium (1.6-2.3) mg/dL Total Bilirubin (0.2-1.3) mg/dL AST (17-59) U/L ALT (21-72) U/L Alkaline Phosphatase (38-126) U/L Total Creatine Kinase (55-170) U/L CK-MB (CK-2) (0.0-2.4) ng/mL CK-MB (CK-2) Rel Index Troponin I (0.000-0.034) ng/mL Total Protein (6.3-8.2) g/dL Albumin (3.5-5.0) g/dL Disposition Clinical Impression: Near syncope, Orthostatic hypotension Disposition: ADMITTED IP TO THIS HOSP Referrals: Rick Luke MD [Primary Care Provider] - 1-2 days Time of Disposition: 16:32
[2018-10-07 15:49] LABS: Anisocytosis Slight; Basophils % (A) 1 %; Eosinophils # (A) 0.1 k/uL (0-0.7); Eosinophils % (A) 2 %; HCT 35.2 % (39.0-53.0); HGB 11.4 gm/dL (13.0-17.5); Lymphocytes # (A) 1.7 k/uL (1.0-4.8); Lymphocytes % (A) 25 %; MCHC 32.4 g/dL (31.0-37.0); MCV 98.8 fL (80.0-100.0); Macrocytosis Slight; Mean Platelet Volume 6.7; Monocytes # (A) 0.3 k/uL (0-1.0); Monocytes % (A) 5 %; Neutrophils # (A) 4.3 k/uL (1.3-7.7); Neutrophils % (A) 65 %; Platelet Count 245 k/uL (150-450); RBC 3.57 m/uL (4.30-5.90); RDW 18.2 % (11.5-15.5); WBC 6.6 k/uL (3.8-10.6)
[2018-10-07 15:57] LABS: INR 0.9 (<1.2); Partial Thromboplastin Time 23.6 sec (22.0-30.0); Prothrombin Time 9.7 sec (9.0-12.0)
[2018-10-07 16:00] LABS: Albumin 4.2 g/dL (3.5-5.0); Calcium 9.8 mg/dL (8.4-10.2); Magnesium 1.7 mg/dL (1.6-2.3); Potassium 3.9 mmol/L (3.5-5.1); Total Bilirubin 0.4 mg/dL (0.2-1.3); Total Protein 7.5 g/dL (6.3-8.2)
[2018-10-07 16:03] LABS: Creatine Kinase 75 U/L (55-170)
[2018-10-07 16:15] LABS: Creatine Kinase MB 0.8 ng/mL (0.0-2.4); Troponin I <0.012 ng/mL (0.000-0.034)
--- NOTE | 2018-10-07 16:25 | CT ---
EXAMINATION TYPE: CT brain wo con DATE OF EXAM: 10/07/2018 COMPARISON: Prior CT brain 07/09/2018 HISTORY: Syncope. CT DLP: 1156.4 mGycm Automated exposure control for dose reduction was used. Helical acquisition through the brain. FINDINGS: Cerebral vascular calcifications are present. There is no hemorrhage or hydrocephalus. Cortical atrop hy is again noted, periventricular white matter shows patchy low attenuation as on prior exam. There is no hemorrhage or hydrocephalus. Calvarium is intact. Mild inflammatory change present within the s phenoid, ethmoid air cells. IMPRESSION: AGE-RELATED CHANGES OF ATROPHY AND PROBABLE CHRONIC SMALL VESSEL ISCHEMIA, FOLLOW-UP INDICATED.
--- NOTE | 2018-10-07 16:26 | XR ---
EXAMINATION TYPE: XR chest 2V DATE OF EXAM: 10/07/2018 COMPARISON: Prior chest x-ray 07/09/2018 HISTORY: Syncope TECHNIQUE: Frontal and lateral views of the chest are obtained. FINDINGS: There is no focal air space opacity, pleural effusion, or pneumothorax seen. The cardiac silhouette size is within normal limits. There are overlying cardiac leads. The osseous structures a re intact. IMPRESSION: No acute cardiopulmonary process.
[2018-10-07] MEDS ORDERED: SODIUM CHLORIDE 0.9% 1,000 ML IV ONE (16:36)
[2018-10-07 17:02] LABS: Appearance,Urine Clear (Clear); Bilirubin,Urine Negative (Negative); Blood,Urine Small (Negative); Color,Urine Yellow; Glucose,Urine (UA) Negative (Negative); Hyaline Casts,Urine 22 /lpf (0-2); Ketones,Urine Negative (Negative); Leukocyte Esterase,Urine Negative (Negative); Mucus,Urine Many /hpf; Nitrite,Urine Negative (Negative); Protein,Urine 1+ (Negative); RBC,Urine 35 /hpf (0-5); Squamous Epithelial Cell,Urine <1 /hpf (0-4); Urobilinogen,Urine <2.0 mg/dL (<2.0); WBC,Urine 5 /hpf (0-5)
[2018-10-07] MEDS ORDERED: ACETAMINOPHEN TAB 500 MG TAB PO PRN (20:13)
[2018-10-07] MEDS ORDERED: ALPRAZolam 0.25 MG TAB PO PRN (20:13)
[2018-10-07] MEDS ORDERED: MELATONIN 3 MG TABLET PO PRN (20:13)
--- NOTE | 2018-10-07 21:14 | HP ---
HISTORY AND PHYSICAL DATE OF SERVICE: 10/07/2018 CHIEF COMPLAINT: Near syncope. HISTORY OF PRESENT ILLNESS: This 67-year-old gentleman with a past medical history of multiple medical issues including syncope with orthostatic hypotension. syncope, TIA being followed by Dr. Luke in the outpatient setting, was complaining of presyncope episode. The patient stood up and patient felt dizzy and patient felt like almost falling and the EMS was called and 10 minutes, EMS found systolic blood pressure 70s. The patient is still orthostatic blood pressure going from 150/90 to 102 systolic on standing up without any change in the heart rate. There is no history of fever, rigors or chills. No history of headache, loss of consciousness, seizures at this time. PAST MEDICAL HISTORY: History of COPD, CVA, TIA, history of GERD, hypertension, hyperlipidemia, history of DJD, sleep apnea, history of multiple transient ischemic attacks. MEDICATIONS: Prior to admission include home medications include: 1. Norvasc 5 mg p.o. daily. 2. Flomax 0.4 q.h.s. 3. Zoloft 25 mg daily. 4. Zantac 150 mg b.i.d. 5. Iron sulfate 320 mg b.i.d. 6. Plavix 75 mg daily. 7. Vitamin D3 1000 daily. 8. Calcitriol 0.25 mcg p.o. daily. 9. Lipitor 80 mg. 10.Ecotrin 81 mg. ALLERGIES: None. FAMILY HISTORY: History of CVA, TIA, diabetes, hypertension, hyperlipidemia in the family. SOCIAL HISTORY: Previous history of smoking. No history of current smoking or alcohol intake. REVIEW OF SYSTEMS: ENT: Diminished hearing and diminished vision. CARDIOVASCULAR: No angina. No palpitations. RESPIRATORY: As mentioned earlier. GI: No nausea or vomiting. no dysuria. CENTRAL NERVOUS SYSTEM: No numbness or weakness. ALLERGY/IMMUNOLOGY: No asthma or hayfever. MUSCULOSKELETAL as mentioned earlier. HEMATOLOGY/ONCOLOGY: No history of anemia. ENDOCRINE no history of diabetes or hypothyroidism. CONSTITUTIONAL: As mentioned earlier. Dermatology: Negative. Rheumatology: Negative. Psychiatry: As mentioned earlier. PHYSICAL EXAMINATION: GENERAL: Alert, oriented x3. VITAL SIGNS: Blood pressure 142/79. Orthostatic changes present 102/80, respiration 20, temperature normal. Pulse ox 97% on room air. HEENT: Conjunctivae normal. Oral mucosa moist. NECK: No jugular venous distention. No carotid bruit. CARDIOVASCULAR: S1, S2 muffled. RESPIRATORY: Breath sounds diminished in the bases. No rhonchi. No crackles. ABDOMEN: Soft, nontender. No mass palpable. LEGS: No edema. No swelling. CENTRAL NERVOUS SYSTEM: Higher functions as mentioned earlier. Moves all four extremities. No focal deficits. Lymphatics: No lymph nodes palpable in the neck, axillae or groin. SKIN: No ulcer, rash or bleeding. LABS: WBC 6.2, hemoglobin 9.4, creatinine is 1.475. The baseline creatinine is fluctuating. ASSESSMENT: 1. Presyncope, near syncope for evaluation possible orthostatic hypotension. 2. Chronic kidney disease stage III. 3. Anemia of chronic undetermined etiology. 4. History of chronic obstructive pulmonary disease. 5. History of cerebrovascular accident, transient ischemic attack. 6. Gastroesophageal reflux disease. 7. Hypertension. 8. History of degenerative joint disease. 9. History of prostate disorder. 10.Sleep apnea. 11.History of syncope. 12.History of multiple transient ischemic attacks. 13.History of dysphagia. PEG tube in situ removed. 14.History of hernia repair. RECOMMENDATIONS AND DISCUSSION: In this 67-year-old gentleman who presented with multiple complex medical issues , we will monitor the patient closely. Continue the current medications, management and symptomatic treatment. Otherwise, at this time, I recommend continue taking orthostatic vitals. Adjust blood pressure medications. I would also recommend cardiology consultation. Prognosis guarded because of multiple complex medical issues. Further recommendations to follow. A copy of dictation being forwarded to Dr. Luke who is the primary physician. JORDY / MYLENE: [id number] / [email or web address]
[2018-10-07] MEDS: FAMOTIDINE 20 MG TAB PO SCH (23:25)
[2018-10-07] MEDS: FERROUS SULFATE 325 MG TAB PO SCH (23:25)
[2018-10-07] MEDS: ATORVASTATIN 80 MG TAB PO SCH (23:25)
[2018-10-08] MEDS: ASPIRIN 81 MG PO SCH (07:43)
[2018-10-08] MEDS: CLOPIDOGREL 75 MG TAB PO SCH (07:43)
[2018-10-08] MEDS: TAMSULOSIN 0.4 MG CAP.ER.24H PO SCH (07:43)
[2018-10-08] MEDS: FERROUS SULFATE 325 MG TAB PO SCH ×2 (07:43→21:40)
[2018-10-08] MEDS: FAMOTIDINE 20 MG TAB PO SCH ×2 (07:43→21:39)
[2018-10-08] MEDS: CHOLECALCIFEROL 1,000 UNIT TAB PO SCH ×2 (07:43→07:44)
[2018-10-08] MEDS: CALCITRIOL 0.25 MCG CAP PO SCH (07:44)
[2018-10-08] MEDS: SERTRALINE 25 MG TAB PO SCH (07:44)
[2018-10-08 07:54] LABS: Calcium 8.9 mg/dL (8.4-10.2); Potassium 3.5 mmol/L (3.5-5.1)
[2018-10-08 08:01] LABS: Anisocytosis Slight; Basophils % (A) 1 %; Eosinophils # (A) 0.1 k/uL (0-0.7); Eosinophils % (A) 2 %; HCT 30.8 % (39.0-53.0); HGB 10.1 gm/dL (13.0-17.5); Lymphocytes # (A) 2.3 k/uL (1.0-4.8); Lymphocytes % (A) 41 %; MCH 32.2 pg (25.0-35.0); MCHC 32.8 g/dL (31.0-37.0); Macrocytosis Slight; Mean Platelet Volume 6.7; Monocytes # (A) 0.4 k/uL (0-1.0); Monocytes % (A) 7 %; Neutrophils # (A) 2.5 k/uL (1.3-7.7); Neutrophils % (A) 46 %; Platelet Count 220 k/uL (150-450); RBC 3.14 m/uL (4.30-5.90); RDW 18.2 % (11.5-15.5); WBC 5.5 k/uL (3.8-10.6)
[2018-10-08] MEDS: METOPROLOL TARTRATE 12.5 MG TAB PO SCH ×2 (12:39→21:40)
[2018-10-08] MEDS: amLODIPine 5 MG TAB PO SCH (12:39)
--- NOTE | 2018-10-08 12:58 | P.CRDCN ---
History of Present Illness History of present illness: This is a pleasant 67-year-old male past medical history significant for hypertension, dyslipidemia, CVA with left sided residual weakness and frequent TIA's. He follows with Dr. Moctezuma in the office. We have been asked to see him in consultation for syncope. He is seen and examined sitting up in bed with his at the bedside. He states yesterday he woke up in his normal state of health, took all of his morning medications and went to his regularly scheduled physical therapy appointment. While at physical therapy he started noticing an increased weakness on the left side and was unable to lift his left hand to drop man the bar. He also felt light headed like he was floating. They brought a chair to him and he sat back. They checked his blood pressure and it was 70/55 per his who was present at the time of the event. The episode lasted in total approximately 10 minutes and improved with rest. He denies chest pain, shortness of breath, nausea, vomiting, palpitations or diaphoresis. Upon arrival to ED blood pressure was 128/79 with heart rate 68. He was also found to be orthostatic positive with change from 151/91 down to 102/83 upon standing. He was given fluid hydration and AM amlodipine was held. Repeat orthostatics obtained this morning reveal change with positions changes. At the time of my exam: CONSTITUTIONAL: Denies fever. Denies chills. EYES: Denies blurred vision. Denies vision changes. Denies eye pain. EARS, NOSE, MOUTH & THROAT: Denies headache. Denies sore throat. Denies ear pain. CARDIOVASCULAR: Denies chest pain. Denies shortness of breath. Denies orthopnea. Denies PND. Denies palpitations. RESPIRATORY: Denies cough. GASTROINTESTINAL: Denies abdominal pain. Denies diarrhea. Denies constipation. Denies nausea. Denies vomiting. MUSCULOSKELETAL: Denies myalgias. INTEGUMENTARY: Denies pruitis. Denies rash. NEUROLOGIC: Denies numbness. Denies tingling. Denies weakness. PSYCHIATRIC: Denies anxiety. Denies depression. ENDOCRINE: Denies fatigue. Denies weight change. Denies polydipsia. Denies polyurina. GENITOURINARY: Denies burning, hematuria or urgency with micturation. HEMATOLOGIC: Denies history of anemia. Denies bleeding. Blood pressure 154/73 heart rate 71 afebrile maintaining oxygen saturation on room air GENERAL: This is a 67-year-old -[place] male in no apparent distress at the time of my examination. Uses cane for ambulation. HEENT: Head is atraumatic, normocephalic. Pupils are equal, round. Sclerae anicteric. Conjunctivae are clear. Mucous membranes of the mouth are moist. Neck is supple. There is no jugular venous distention. No carotid bruit is heard. LUNGS: Clear to auscultation no wheezes, rales or rhonchi. No chest wall tenderness is noted on palpation or with deep breathing. HEART: Regular rate and rhythm without murmurs, rubs or gallops. S1 and S2 heard. ABDOMEN: Soft, nontender. Bowel sounds are heard. No organomegaly noted. EXTREMITIES: No evidence of peripheral edema and no calf tenderness noted. VASCULAR: Radial and dorsalis pedis pulses palpated, no evidence of clubbing. NEUROLOGIC: Patient is awake, alert and oriented x3. Left sided weakness. ASSESSMENT Dizziness and left sides weakness with hypotension, possibly related to dehydration. Acute on chronic kidney disease Dehydration with orthostatic changes on admission History of CVA with left sided residual weakness Frequent TIA's Hypertension Dyslipidmiea COPD PLAN Resume amlodipine 5 mg daily, first dose now. Orthostatic hypotension on admission has improved this morning after fluid administration. Evidence of dehydration on admission has also improved. Hypotension and dizziness related to dehydration and not eating before going to physical therapy. No evidence of arrhythmia on telemetry tracings. Plans for loop recorder implantation 10/[address] Moctezuma. Thank you kindly for this consultation. Nurse Practitioner note has been reviewed, I agree with a documented findings and plan of care. Patient was seen and examined. Past Medical History Past Medical History: COPD, CVA/TIA, Eye Disorder, GERD/Reflux, Hyperlipidemia, Hypertension, Osteoarthritis (OA), Prostate Disorder, Renal Disease, Sleep Apnea /CPAP/BIPAP, Syncope Additional Past Medical History / Comment(s): pt is rt side dominant. hx ofMultiple TIAs, CVA 01/2017 with dysphagia-peg tube inserted and now out, has residual weakness lt arm/leg and some lt facial droop. chronic kidney disease BPH, Uti, ROSA has Cpap but does not tolerate it no longer using it, gastric ulcer, soniya eye cataracts, past hxR foot 3rd toe osteomylitis, arthritis multiple joints, past gastric ulcer, past hx shingels. History of Any Multi-Drug Resistant Organisms: None Reported Past Surgical History: Hernia Repair, Joint Replacement Additional Past Surgical History / Comment(s): 06/01/17 intracranial angioplasty-( pt stated "he has stents') HFH, EGD with peg tube insertion since removed, R inguinal hernia repair, R total knee arthroplasty, colonoscopies with last one in 2014-normal. Past Anesthesia/Blood Transfusion Reactions: No Reported Reaction Smoking Status: Former smoker - Past Family History Mother Family Medical History: CVA/TIA, Diabetes Mellitus, Hyperlipidemia, Hypertension Father Family Medical History: CVA/TIA, Hypertension Medications and Allergies Home Medications Medication Instructions Recorded Confirmed Type Atorvastatin [Lipitor] 80 mg PO HS 05/26/17 10/07/18 History Cholecalciferol [Vitamin D3] 1,000 unit PO DAILY 05/26/17 10/07/18 History Tamsulosin HCl [Flomax] 0.4 mg PO QAM 05/26/17 10/07/18 History Ferrous Sulfate [Feosol] 325 mg PO BID 06/29/17 10/07/18 History Ranitidine HCl [Zantac] 150 mg PO BID 07/13/17 10/07/18 History Sertraline [Zoloft] 25 mg PO DAILY 08/28/17 10/07/18 History Clopidogrel [Plavix] 75 mg PO DAILY #30 tab 11/24/17 10/07/18 Rx Aspirin EC [Ecotrin Low Dose] 81 mg PO DAILY 02/12/18 10/07/18 History amLODIPine [Norvasc] 5 mg PO DAILY 07/09/18 10/07/18 History Calcitriol 0.25 mcg PO DAILY 10/07/18 10/07/18 History Allergies Allergy/AdvReac Type Severity Reaction Status Date / Time No Known Allergies Allergy Verified 10/07/18 15:28 Physical Exam Vitals: Vital Signs Temp Pulse Pulse Pulse Pulse Resp BP 10/08/18 04:52 97.9 F 70 70 71 16 10/07/18 22:00 98.2 F 69 16 10/07/18 21:40 98.3 F 74 20 142/84 10/07/18 18:51 75 18 131/76 10/07/18 15:51 72 75 68 10/07/18 14:42 97.8 F 68 16 128/79 BP BP BP Pulse Ox 10/08/18 04:52 162/87 156/80 154/73 98 10/07/18 22:00 149/78 99 10/07/18 21:40 98 10/07/18 18:51 97 10/07/18 15:51 142/79 102/83 151/91 10/07/18 14:42 99 Intake and Output 10/07/18 10/08/18 10/08/18 22:59 06:59 14:59 Intake Total 1500 Balance 1500 Intake: Intake, IV Titration 650 Amount Sodium Chloride 0.9% 1, 650 000 ml @ 75 mls/hr IV . [id number] ONE Rx#:[id number] Oral 850 Other: Voiding Method Diaper Incontinent # Voids 1 Results 10/08/18 06:16 10/08/18 06:16 Cardiac Enzymes 10/07/18 10/07/18 Range/Units 14:50 14:50 AST 31 (17-59) U/L CK-MB (CK-2) 0.8 (0.0-2.4) ng/mL Troponin I <0.012 (0.000-0.034) ng/mL Coagulation 10/07/18 Range/Units 14:50 PT 9.7 (9.0-12.0) sec APTT 23.6 (22.0-30.0) sec CBC 10/07/18 10/08/18 Range/Units 14:50 06:16 WBC 6.6 5.5 (3.8-10.6) k/uL RBC 3.57 L 3.14 L (4.30-5.90) m/uL Hgb 11.4 L 10.1 L (13.0-17.5) gm/dL Hct 35.2 L 30.8 L (39.0-53.0) % Plt Count 245 220 (150-450) k/uL Comprehensive Metabolic Panel 10/07/18 10/08/18 Range/Units 14:50 06:16 Sodium 140 140 (137-145) mmol/L Potassium 3.9 3.5 (3.5-5.1) mmol/L Chloride 104 106 (98-107) mmol/L Carbon Dioxide 26 28 (22-30) mmol/L BUN 23 H 17 (9-20) mg/dL Creatinine 1.45 H 1.21 (0.66-1.25) mg/dL Glucose 117 H 80 (74-99) mg/dL Calcium 9.8 8.9 (8.4-10.2) mg/dL AST 31 (17-59) U/L ALT 52 (21-72) U/L Alkaline Phosphatase 113 (38-126) U/L Total Protein 7.5 (6.3-8.2) g/dL Albumin 4.2 (3.5-5.0) g/dL Current Medications Generic Name Dose Route Start Last Admin Trade Name Freq PRN Reason Stop Dose Admin Acetaminophen 500 mg 10/07/18 20:13 Tylenol Tab PO Q6HR PRN Fever and/ or Pain Alprazolam 0.25 mg 10/07/18 20:13 Xanax PO TID PRN Anxiety Aspirin 81 mg 10/08/18 09:00 10/08/18 07:43 Aspirin PO 81 mg DAILY HAM Administration Atorvastatin Calcium 80 mg 10/07/18 21:00 10/07/18 23:25 Lipitor PO 80 mg HS HAM Administration Calcitriol 0.25 mcg 10/08/18 09:00 10/08/18 07:44 Rocaltrol PO 0.25 mcg DAILY HAM Administration Cholecalciferol 1,000 unit 10/08/18 09:00 10/08/18 07:44 Vitamin D3 PO 1,000 unit DAILY HAM Administration Clopidogrel Bisulfate 75 mg 10/08/18 09:00 10/08/18 07:43 Plavix PO 75 mg DAILY HAM Administration Famotidine 20 mg 10/07/18 21:00 10/08/18 07:43 Pepcid PO 20 mg BID HAM Administration Ferrous Sulfate 325 mg 10/07/18 21:00 10/08/18 07:43 Feosol PO 325 mg BID HAM Administration Melatonin 3 mg 10/07/18 20:13 Melatonin PO HS PRN Insomnia Metoprolol Tartrate 12.5 mg 10/08/18 10:45 Lopressor PO BID HAM Sertraline HCl 25 mg 10/08/18 09:00 10/08/18 07:44 Zoloft PO 25 mg DAILY HAM Administration Tamsulosin HCl 0.4 mg 10/08/18 09:00 10/08/18 07:43 Flomax PO 0.4 mg QAM HAM Administration Intake and Output 10/07/18 10/08/18 10/08/18 22:59 06:59 14:59 Intake Total 1500 Balance 1500 Intake: Intake, IV Titration 650 Amount Sodium Chloride 0.9% 1, 650 000 ml @ 75 mls/hr IV . [id number] ONE Rx#:[id number] Oral 850 Other: Voiding Method Diaper Incontinent # Voids 1 10/08/18 06:16 10/08/18 06:16
--- NOTE | 2018-10-08 17:28 | PN ---
PROGRESS NOTE DATE OF SERVICE: 10/08/2018 This 67-year-old gentleman admitted with presyncope, has significant orthostatic hypotension. Cardiology is following the patient closely also. Reveal monitoring is also being planned. Previously ectopies are noted. No chest pain. No palpitations. No fever. EXAM: Alert and oriented times three. Pulse 70, blood pressure is 162/87 and 154/73 on standing, respirations 16, temperature 98.2, pulse ox 98% on room air. HEENT: Conjunctivae normal. NECK: No jugular venous distention. CARDIOVASCULAR: S1, S2 muffled. RESPIRATORY: Breath sounds diminished in the bases. A few scattered rhonchi and no crackles. ABDOMEN is soft, nontender. LEGS are no edema, no swelling. CENTRAL NERVOUS SYSTEM: No focal deficits. LAB STUDIES: WBC 5.0, hemoglobin 10.1, creatinine 1.21. UA, RBCs. ASSESSMENT: 1. Presyncope possibly orthostatic hypotension rule out cardiac arrhythmia. 2. Chronic kidney disease stage III. 3. Anemia, chronic of undetermined etiology. 4. History of chronic obstructive pulmonary disease. 5. History of cerebrovascular accident, transient ischemic attack. 6. Gastroesophageal reflux disease. 7. Hypertension. 8. History of degenerative joint disease. 9. History of prostate disorder. 10.History of sleep apnea. 11.History of syncope. 12.History of multiple transient ischemic attacks. 13.History of dysphagia. PEG tube removed. 14.History of hernia repair. RECOMMENDATIONS AND DISCUSSION: Recommend to continue current medications, management and symptomatic treatment. Monitor blood pressure closely. Start a small dose of beta connie. Follow closely with Cardiology. Possible tilt-table test. Otherwise further monitoring as an outpatient. Prognosis guarded. Discussed with family. Further recommendations to follow. MMODL / IJN: [id number] /
[2018-10-08] MEDS: ATORVASTATIN 80 MG TAB PO SCH (21:39)
[2018-10-09 03:15] VITALS: RESP 18
[2018-10-09] MEDS: METOPROLOL TARTRATE 12.5 MG TAB PO SCH (09:21)
[2018-10-09] MEDS: SERTRALINE 25 MG TAB PO SCH (09:21)
[2018-10-09] MEDS: TAMSULOSIN 0.4 MG CAP.ER.24H PO SCH (09:22)
[2018-10-09] MEDS: ASPIRIN 81 MG PO SCH (09:22)
[2018-10-09] MEDS: FAMOTIDINE 20 MG TAB PO SCH (09:22)
[2018-10-09] MEDS: CHOLECALCIFEROL 1,000 UNIT TAB PO SCH (09:22)
[2018-10-09] MEDS: FERROUS SULFATE 325 MG TAB PO SCH (09:22)
[2018-10-09] MEDS: CLOPIDOGREL 75 MG TAB PO SCH (09:22)
[2018-10-09] MEDS: CALCITRIOL 0.25 MCG CAP PO SCH (09:22)
[2018-10-09] MEDS: amLODIPine 5 MG TAB PO SCH (09:22)
[2018-10-09 09:31] LABS: Anisocytosis Slight; Basophils % (A) 1 %; Eosinophils # (A) 0.2 k/uL (0-0.7); Eosinophils % (A) 4 %; HCT 33.5 % (39.0-53.0); HGB 10.6 gm/dL (13.0-17.5); Lymphocytes # (A) 2.1 k/uL (1.0-4.8); Lymphocytes % (A) 37 %; MCH 31.1 pg (25.0-35.0); MCHC 31.7 g/dL (31.0-37.0); MCV 98.2 fL (80.0-100.0); Macrocytosis Slight; Mean Platelet Volume 6.7; Monocytes # (A) 0.4 k/uL (0-1.0); Monocytes % (A) 7 %; Neutrophils # (A) 2.9 k/uL (1.3-7.7); Neutrophils % (A) 49 %; Platelet Count 264 k/uL (150-450); RBC 3.41 m/uL (4.30-5.90); RDW 18.3 % (11.5-15.5); WBC 5.8 k/uL (3.8-10.6)
[2018-10-09 09:55] LABS: Calcium 9.4 mg/dL (8.4-10.2); Potassium 3.7 mmol/L (3.5-5.1)
[2018-10-09 13:02] VITALS: BP 154/74; PULSE 51; TEMP 97.8
--- NOTE | 2018-10-09 14:06 | P.PN ---
Subjective This is a pleasant 67-year-old male past medical history significant for hypertension, dyslipidemia, CVA with left sided residual weakness and frequent TIA's. He follows with Dr. Moctezuma in the office. He has had no further symptoms of dizziness or weakness. He states he has been up and moving about the room without difficulty. He denies chest pain, shortness of breath, dizziness or palpitations. Blood pressures have greatly improved and his amlodipine was resumed yesterday. He is orthostatic negative again this morning. Blood pressure 154/74 heart rate 51. Laboratory data reviewed, WBC 5.8 , hemoglobin 10.6, platelets 264, sodium 141, potassium 3.7, creatinine 1.19. Telemetry tracings have been unremarkable for an acute tachycardia or bradycardia arrhythmia. He is seen and examined resting comfortably in bed in no acute distress. GENERAL: This is a 67-year-old -[place] male in no apparent distress at the time of my examination. Uses cane for ambulation. HEENT: Head is atraumatic, normocephalic. Pupils are equal, round. Sclerae anicteric. Conjunctivae are clear. Mucous membranes of the mouth are moist. Neck is supple. There is no jugular venous distention. No carotid bruit is heard. LUNGS: Clear to auscultation no wheezes, rales or rhonchi. No chest wall tenderness is noted on palpation or with deep breathing. HEART: Regular rate and rhythm without murmurs, rubs or gallops. S1 and S2 heard. EXTREMITIES: No evidence of peripheral edema and no calf tenderness noted. ASSESSMENT Dizziness and left sides weakness with hypotension, possibly related to dehydration. Acute on chronic kidney disease Dehydration with orthostatic changes on admission History of CVA with left sided residual weakness Frequent TIA's Hypertension Dyslipidmiea COPD PLAN From cardiac perspective he is stable and can be discharged once cleared by primary care team. He will have his loop recorder implant on 10/17 as scheduled. Nurse Practitioner note has been reviewed, I agree with a documented findings and plan of care. Patient was seen and examined. Objective - Vital Signs Vital signs: Vital Signs Temp 97.8 F 10/09/18 13:00 Pulse 51 L 10/09/18 13:00 Resp 18 10/09/18 13:00 BP 154/74 10/09/18 13:00 Pulse Ox 99 10/08/18 21:00 Intake & Output 10/08/18 10/09/18 10/09/18 18:59 06:59 18:59 Intake Total 600 Balance 600 Intake: Intake, IV Titration 600 Amount Sodium Chloride 0.9% 1, 600 000 ml @ 75 mls/hr IV . [id number] ONE Rx#:[id number] Other: Voiding Method Diaper Diaper Diaper Incontinent Incontinent Incontinent # Voids 1 5 - Labs CBC & Chem 7: 10/09/18 08:48 10/09/18 08:48 Labs: Abnormal Lab Results - Last 24 Hours (Table) 10/09/18 10/09/18 Range/Units 08:48 08:48 RBC 3.41 L (4.30-5.90) m/uL Hgb 10.6 L (13.0-17.5) gm/dL Hct 33.5 L (39.0-53.0) % RDW 18.3 H (11.5-15.5) % Carbon Dioxide 32 H (22-30) mmol/L Glucose 122 H (74-99) mg/dL
--- NOTE | 2018-10-10 00:28 | DS ---
DISCHARGE SUMMARY DATE OF SERVICE: 10/09/2018 FINAL DIAGNOSES: 1. Presyncope, possible orthostatic hypotension rule out cardiac arrhythmia. 2. Chronic kidney stage III. 3. Anemia, chronic undetermined etiology. 4. History of chronic obstructive pulmonary disease. 5. Cerebrovascular accident, transient ischemic attack. 6. Gastroesophageal reflux disease. 7. Hypertension. 8. History of degenerative joint disease. 9. History of prostate disease. 10.History of sleep apnea. 11.History of syncope. 12.History of multiple transient ischemic attacks. 13.History of dysphagia, PEG tube removed previously. 14.History of hernia repair. DISCHARGE DISPOSITION: The patient is being discharged in stable condition with guarded prognosis. HISTORY OF PRESENT ILLNESS: This 67-year-old gentleman with a past medical history of multiple medical problems, admitted with presyncope as well as hypertension. Medications adjusted. The patient was started on Lopressor. Cardiology saw the patient. Recommended outpatient followup. On exam, vital signs stable. Cardiac system: S1, S2 muffled. Abdomen soft. Nervous system: No focal deficits. Outpatient monitoring with loop recorder implant on October 17 was being scheduled. DISCHARGE ADVICE AND MEDICATIONS: 1. Diet is cardiac diet. 2. Activity limited until followup. 3. Follow up with Dr. Luke in 2-3 days. 4. Follow with Cardiology as recommended. MEDICATIONS: 1. Ecotrin 81 mg b.i.d. 2. Hold Norvasc. 3. Lipitor 80 mg q.h.s. 4. Calcitriol 0.5 mg. 5. Vitamin D3 1000 daily. 6. Iron sulfate 320 mg p.o. b.i.d. 7. Zantac 150 mg b.i.d. 8. Zoloft 25 mg. 9. Flomax 0.4 q.a.m. 10.Tylenol 500 q.6h p.r.n. 11.Plavix 75 mg daily. 12.Lopressor 12.5 mg p.o. b.i.d. Once again, the patient discharged in stable condition with guarded prognosis. MMODL / IJN: [id number] /
== END 2018-10-09 16:30 | disposition home or self-care (01) ==
LOC: EC 14:38 → 4SSUR 16:36 → 3NMEDONC 20:19
PROVIDERS: ADMIT Hospitalist; ATTEND Hospitalist
DX: R55 Syncope and collapse (principal); I12.9 Hypertensive chronic kidney disease with stage 1 through stage 4 chronic kidney disease, or unspecified chronic kidney disease; N18.3 Chronic kidney disease, stage 3 (moderate); N17.9 Acute kidney failure, unspecified; D64.9 Anemia, unspecified; E86.0 Dehydration; J44.9 Chronic obstructive pulmonary disease, unspecified; K21.9 Gastro-esophageal reflux disease without esophagitis; M19.90 Unspecified osteoarthritis, unspecified site; I69.392 Facial weakness following cerebral infarction; N40.0 Benign prostatic hyperplasia without lower urinary tract symptoms; I69.354 Hemiplegia and hemiparesis following cerebral infarction affecting left non-dominant side; G47.33 Obstructive sleep apnea (adult) (pediatric); E78.5 Hyperlipidemia, unspecified; Z79.899 Other long term (current) drug therapy; Z79.02 Long term (current) use of antithrombotics/antiplatelets; Z79.82 Long term (current) use of aspirin; Z87.891 Personal history of nicotine dependence; Z87.440 Personal history of urinary (tract) infections
CPT/HCPCS: 96361 ×3; 96360; 99285; 36415; 93005; 97161; 85379; 80053; 80048 ×2; 82550; 82553; 83735; 84484; 85025 ×3; 85610; 85730; 81001; 71046; 70450; G0378 ×4

== ENCOUNTER 2018-10-10 13:41 | Emergency (ER) | payer MEDICARE, BC ==
[2018-10-10 13:54] VITALS: TEMP 98.4
[2018-10-10] MEDS ORDERED: SODIUM CHLORIDE 0.9% 1,000 ML IV STA (14:14)
--- NOTE | 2018-10-10 14:23 | ED ---
General Adult HPI - General Chief complaint: Dizziness Stated complaint: Syncope Source: EMS Mode of arrival: EMS Limitations: no limitations - History of Present Illness Initial comments: Dictation was produced using [employer] dictation software. please excuse any grammatical, word or spelling errors. Chief Complaint: 67-year-old -Citizen Of [place] male presents with chief complaint of presyncope. History of Present Illness: 67-year-old -Citizen Of [place] male with past medical history of CVA and TIAs presents with episode of presyncope. Patient was brought in by EMS. According to patient was at home when he was having difficulty walking. He did consent down to chair for feeling faint. She checked his blood pressure and states that his blood pressure was relatively low with systolics in the 70s at this time. Recheck blood pressure gas found to be low. EMS was called patient back to the emergency department. Patient was just admitted to the hospital for the same issue and was discharge. He is planning to have a outpatient cardiology appointment in one week. The ROS documented in this emergency department record has been reviewed and confirmed by me. Those systems with pertinent positive or negative responses have been documented in the HPI. All other systems are other negative and/or noncontributory. - Related Data Home Medications Medication Instructions Recorded Confirmed Atorvastatin [Lipitor] 80 mg PO HS 05/26/17 10/10/18 Cholecalciferol [Vitamin D3] 1,000 unit PO DAILY 05/26/17 10/10/18 Tamsulosin HCl [Flomax] 0.4 mg PO QAM 05/26/17 10/10/18 Ferrous Sulfate [Feosol] 325 mg PO BID 06/29/17 10/10/18 Ranitidine HCl [Zantac] 150 mg PO BID 07/13/17 10/10/18 Sertraline [Zoloft] 25 mg PO DAILY 08/28/17 10/10/18 Aspirin EC [Ecotrin Low Dose] 81 mg PO DAILY 02/12/18 10/10/18 Calcitriol 0.25 mcg PO DAILY 10/07/18 10/10/18 amLODIPine [Norvasc] 5 mg PO DAILY 10/10/18 10/10/18 Previous Rx's Medication Instructions Recorded Clopidogrel [Plavix] 75 mg PO DAILY #30 tab 11/24/17 Acetaminophen Tab [Tylenol] 500 mg PO Q6HR PRN tab 10/09/18 Metoprolol Tartrate [Lopressor] 12.5 mg PO BID #60 tab 10/09/18 Allergies Allergy/AdvReac Type Severity Reaction Status Date / Time No Known Allergies Allergy Verified 10/10/18 14:18 Review of Systems ROS Statement: Those systems with pertinent positive or pertinent negative responses have been documented in the HPI. ROS Other: All systems not noted in ROS Statement are negative. Past Medical History Past Medical History: COPD, CVA/TIA, Eye Disorder, GERD/Reflux, Hyperlipidemia, Hypertension, Osteoarthritis (OA), Prostate Disorder, Renal Disease, Sleep Apnea /CPAP/BIPAP, Syncope Additional Past Medical History / Comment(s): pt is rt side dominant. hx ofMultiple TIAs, CVA 01/2017 with dysphagia-peg tube inserted and now out, has residual weakness lt arm/leg and some lt facial droop. chronic kidney disease BPH, Uti, ROSA has Cpap but does not tolerate it no longer using it, gastric ulcer, soniya eye cataracts, past hxR foot 3rd toe osteomylitis, arthritis multiple joints, past gastric ulcer, past hx shingels. History of Any Multi-Drug Resistant Organisms: None Reported Past Surgical History: Hernia Repair, Joint Replacement Additional Past Surgical History / Comment(s): 06/01/17 intracranial angioplasty-( pt stated "he has stents') HFH, EGD with peg tube insertion since removed, R inguinal hernia repair, R total knee arthroplasty, colonoscopies with last one in 2014-normal. Past Anesthesia/Blood Transfusion Reactions: No Reported Reaction Past Psychological History: No Psychological Hx Reported Smoking Status: Former smoker - Past Family History Mother Family Medical History: CVA/TIA, Diabetes Mellitus, Hyperlipidemia, Hypertension Father Family Medical History: CVA/TIA, Hypertension General Exam - General Exam Comments Initial Comments: PHYSICAL EXAM: General Impression: Alert and oriented x3, not in acute distress HEENT: Normocephalic atraumatic, extra-ocular movements intact, pupils equal and reactive to light bilaterally, mucous membranes moist. Cardiovascular: Heart regular rate and rhythm, S1&S2 audible, no murmurs, rubs or gallops Chest: Lungs clear to auscultation bilaterally, no rhonchi, no wheeze, no rales Abdomen: Bowel sounds present, abdomen soft, non-tender, non-distended, no organomegaly Musculoskeletal: Pulses present and equal in all extremities, no peripheral edema Motor: Power 5/5 bilaterally, no focal deficits noted Neurological: CN II-XII grossly intact, no focal motor or sensory deficits noted Skin: Intact with no visualized rashes Psych: Normal affect and mood Limitations: no limitations Course Vital Signs 10/10/18 10/10/18 10/10/18 13:49 13:52 14:00 Temperature 98.4 F Pulse Rate 53 L 53 L 53 L Pulse Rate [ Sitting] Pulse Rate [ Standing] Pulse Rate [ Supine] Respiratory 12 16 18 Rate Blood Pressure 129/80 Blood Pressure [Sitting] Blood Pressure [Standing] Blood Pressure [Supine] O2 Sat by Pulse 96 96 97 Oximetry 10/10/18 10/10/18 10/10/18 14:30 15:00 15:30 Temperature Pulse Rate 55 L 54 L 64 Pulse Rate [ Sitting] Pulse Rate [ Standing] Pulse Rate [ Supine] Respiratory 16 15 18 Rate Blood Pressure 130/72 136/75 151/85 Blood Pressure [Sitting] Blood Pressure [Standing] Blood Pressure [Supine] O2 Sat by Pulse 96 97 97 Oximetry 10/10/18 15:38 Temperature Pulse Rate Pulse Rate [ 62 Sitting] Pulse Rate [ 61 Standing] Pulse Rate [ 54 L Supine] Respiratory Rate Blood Pressure Blood Pressure 146/92 [Sitting] Blood Pressure 129/90 [Standing] Blood Pressure 151/85 [Supine] O2 Sat by Pulse Oximetry Medical Decision Making - Medical Decision Making ED course: 59-year-old male who was recently admitted discharged to the hospital for presyncope presents with recurrent presyncope. Checked his blood pressure was found to be low. Vital signs here in our emergency department shows blood pressure 129/80, rest of vital signs within normal limits. reports that patient was recently started on metoprolol medications. Return evaluation obtained showing an acute processes. EKG is unremarkable. Orthostatic vital signs were obtained with no symptoms. Patient given fluids. Urinalysis shows no acute processes. Repeat vital signs were obtained with no episodes of hypotension. Patient has an appointment with primary care physician tomorrow. Patient be discharged. Family is told to withhold beta connie medications tonight. EKG interpretation: Ventricular rate 53, sinus bradycardia,. Interval 174, care is 80, QTc 412. No MO prolongation, no QTC prolongation, no ST or T-wave changes noted. EKG compared to [default value] showing no changes. Overall, this EKG is unremarkable - Lab Data Result diagrams: 10/10/18 13:57 18 13:57 Lab Results 10/10/18 10/10/18 10/10/18 Range/Units 13:57 13:57 15:51 WBC 6.0 (3.8-10.6) k/uL RBC 3.70 L (4.30-5.90) m/uL Hgb 11.4 L (13.0-17.5) gm/dL Hct 36.3 L (39.0-53.0) % MCV 98.3 (80.0-100.0) fL MCH 30.8 (25.0-35.0) pg MCHC 31.4 (31.0-37.0) g/dL RDW 17.9 H (11.5-15.5) % Plt Count 246 (150-450) k/uL Neutrophils % 65 % Lymphocytes % 26 % Monocytes % 5 % Eosinophils % 2 % Basophils % 1 % Neutrophils # 3.9 (1.3-7.7) k/uL Lymphocytes # 1.5 (1.0-4.8) k/uL Monocytes # 0.3 (0-1.0) k/uL Eosinophils # 0.1 (0-0.7) k/uL Basophils # 0.0 (0-0.2) k/uL Anisocytosis Slight Macrocytosis Slight Sodium 140 (137-145) mmol/L Potassium 3.9 (3.5-5.1) mmol/L Chloride 103 (98-107) mmol/L Carbon Dioxide 29 (22-30) mmol/L Anion Gap 8 mmol/L BUN 16 (9-20) mg/dL Creatinine 1.38 H (0.66-1.25) mg/dL Est GFR (CKD-EPI)AfAm 60 (>60 ml/min/1.73 sqM) Est GFR (CKD-EPI)NonAf 52 (>60 ml/min/1.73 sqM) Glucose 136 H (74-99) mg/dL Calcium 9.6 (8.4-10.2) mg/dL Urine Color Yellow Urine Appearance Clear (Clear) Urine pH 7.5 (5.0-8.0) Ur Specific [place] 1.013 (1.001-1.035) Urine Protein Trace H (Negative) Urine Glucose (UA) Negative (Negative) Urine Ketones Negative (Negative) Urine Blood Negative (Negative) Urine Nitrite Negative (Negative) Urine Bilirubin Negative (Negative) Urine Urobilinogen <2.0 (<2.0) mg/dL Ur Leukocyte Esterase Negative (Negative) Disposition Clinical Impression: Pre-syncope Disposition: HOME SELF-CARE Condition: Good Instructions: Near Syncope (ED) Is patient prescribed a controlled substance at d/c from ED?: No Referrals: Rick Luke MD [Primary Care Provider] - 1-2 days Time of Disposition: 16:26
[2018-10-10 14:43] LABS: Anisocytosis Slight; Basophils % (A) 1 %; Eosinophils # (A) 0.1 k/uL (0-0.7); Eosinophils % (A) 2 %; HCT 36.3 % (39.0-53.0); HGB 11.4 gm/dL (13.0-17.5); Lymphocytes # (A) 1.5 k/uL (1.0-4.8); Lymphocytes % (A) 26 %; MCH 30.8 pg (25.0-35.0); MCHC 31.4 g/dL (31.0-37.0); MCV 98.3 fL (80.0-100.0); Macrocytosis Slight; Mean Platelet Volume 6.7; Monocytes # (A) 0.3 k/uL (0-1.0); Monocytes % (A) 5 %; Neutrophils # (A) 3.9 k/uL (1.3-7.7); Neutrophils % (A) 65 %; Platelet Count 246 k/uL (150-450); RDW 17.9 % (11.5-15.5)
[2018-10-10 14:55] LABS: Calcium 9.6 mg/dL (8.4-10.2); Potassium 3.9 mmol/L (3.5-5.1)
[2018-10-10 15:35] VITALS: RESP 18
[2018-10-10 15:39] VITALS: PULSE 54
[2018-10-10 16:14] LABS: Appearance,Urine Clear (Clear); Bilirubin,Urine Negative (Negative); Blood,Urine Negative (Negative); Color,Urine Yellow; Glucose,Urine (UA) Negative (Negative); Ketones,Urine Negative (Negative); Leukocyte Esterase,Urine Negative (Negative); Nitrite,Urine Negative (Negative); PH, Urine 7.5 (5.0-8.0); Protein,Urine Trace (Negative); Specific Gravity,Urine 1.013 (1.001-1.035); Urobilinogen,Urine <2.0 mg/dL (<2.0)
[2018-10-10 16:38] VITALS: BP 147/86
== END 2018-10-10 16:50 | disposition home or self-care (01) ==
LOC: EC 13:41
DX: R55 Syncope and collapse (principal); R00.1 Bradycardia, unspecified; J44.9 Chronic obstructive pulmonary disease, unspecified; K21.9 Gastro-esophageal reflux disease without esophagitis; E78.5 Hyperlipidemia, unspecified; M19.90 Unspecified osteoarthritis, unspecified site; I12.9 Hypertensive chronic kidney disease with stage 1 through stage 4 chronic kidney disease, or unspecified chronic kidney disease; N18.9 Chronic kidney disease, unspecified; N40.0 Benign prostatic hyperplasia without lower urinary tract symptoms; Z87.891 Personal history of nicotine dependence; Z96.651 Presence of right artificial knee joint; Z86.73 Personal history of transient ischemic attack (TIA), and cerebral infarction without residual deficits; Z79.82 Long term (current) use of aspirin; Z79.899 Other long term (current) drug therapy
CPT/HCPCS: 36415; 80048; 81003; 85025; 87086; 93005; 96360; 96361; 99284

== ENCOUNTER 2018-10-17 09:57 | Day surgery (SDC) | payer MEDICARE, BC ==
[~2018-10-17 09:57] MED LIST: SODIUM CHLORIDE 0.9% 1,000 ML IV SCH; ceFAZolin 1,000 MG in SODIUM CHLORIDE 0.9% IRRIGATIO 250 ML IRRIGATION ONE; ceFAZolin IN SWFI 2 GM/20 ML SYRINGE IVP ONE
[2018-10-17 10:31] VITALS: PULSE 66; RESP 20; TEMP 98.6
[2018-10-17] MEDS ORDERED: IV FLUID CONTINUATION 400 ML IV ONE (10:37)
[2018-10-17] MEDS ORDERED: LIDOCAINE 1% INJ 10MG/ML (20 ML MDV) ONE (10:47)
[2018-10-17] MEDS ORDERED: LIDOCAINE 1% INJ 10MG/ML (20 ML MDV) SQ ONE (10:51)
[2018-10-17] MEDS ORDERED: MIDAZOLAM 2 MG/2 ML VIAL IV ONE (10:52)
--- NOTE | 2018-10-17 11:09 | P.PCN ---
Preoperative Diagnosis: Loop monitor implant Primary physicians: Dr. Luke Fiber Glass Worker: Dr. Moctezuma Indication: History of embolic stroke, no prior history of atrial fibrillation Loop implant for diagnosis of atrial fibrillation Patient was brought to the EP lab in a fasting state. Written informed consent was obtained prior to the procedure. The left pectoral area was prepped and draped per protocol. Intravenous antibiotic was administered preoperatively. A subcutaneous Loop monitor was implanted successfully and the wound was closed per protocol. The device was programmed to detect significant ryan- arrhythmic and tachy-arrhythmic events, per protocol. Device and programming details: Programming to detect AF to explain embolic stroke Patient underwent EP procedure under conscious sedation/moderate sedation, monitoring of the level of consciousness and physiologic parameters including but not limited to vital signs and oxygenation. Patient tolerated the procedure well without any acute complications. Start time: 1050 Stop time: 1058 Disposition: same day
[2018-10-17 13:25] VITALS: BP 136/85
== END 2018-10-17 12:20 | disposition home or self-care (01) ==
LOC: CATHEP 09:57
PROVIDERS: ATTEND Internal Medicine Clinical Cardiac Electrophysiology
DX: I69.354 Hemiplegia and hemiparesis following cerebral infarction affecting left non-dominant side (principal); I10 Essential (primary) hypertension; E78.5 Hyperlipidemia, unspecified; Z87.891 Personal history of nicotine dependence; Z79.02 Long term (current) use of antithrombotics/antiplatelets; Z79.82 Long term (current) use of aspirin; Z79.899 Other long term (current) drug therapy
CPT/HCPCS: 33282; C1764; J2250; J2001; J0690

== ENCOUNTER 2019-04-13 00:57 | Emergency (ER) | payer MEDICARE, OTHER ==
[2019-04-13 01:03] VITALS: RESP 18
[2019-04-13] MEDS ORDERED: SODIUM CHLORIDE 0.9% 500 ML 500 ML IV ONE ×2 (01:05→02:17)
[2019-04-13 01:09] LABS: Glucose,Whole Blood 116 mg/dL (75-99)
--- NOTE | 2019-04-13 01:26 | CT ---
EXAM: CT Head Without Intravenous Contrast CLINICAL HISTORY: ITS.REASON CT Reason: altered mental status, confusion TECHNIQUE: Axial computed tomography images of the head/brain without intravenous contrast. CTDI is 49 mGy and DLP is 1095 mGy-cm. This CT exam was performed using one or more of the following dose reduction techniques: automated exposure control, adjustment of the mA and/or kV according to patient size, and/or use of iterative reconstruction technique. COMPARISON: No relevant prior studies available. FINDINGS: Brain: No hemorrhage, large hypodensity, or mass effect. Chronic microvascular ischemic changes. No hyperdense vessels. Ventricles: No hydrocephalus. Age-appropriate cerebral volume loss. Bones/joints: Unremarkable. Soft tissues: Unremarkable. Sinuses: Unremarkable. Mastoid air cells: Clear. IMPRESSION: No acute hemorrhage, hydrocephalus, or mass effect. No large territorial infarct.
[2019-04-13 01:51] LABS: Albumin 4.3 g/dL (3.5-5.0); Calcium 9.7 mg/dL (8.4-10.2); Potassium 3.8 mmol/L (3.5-5.1); Total Bilirubin 0.2 mg/dL (0.2-1.3); Total Protein 7.3 g/dL (6.3-8.2)
[2019-04-13 01:53] LABS: Anisocytosis Slight; Basophils % (A) 1 %; Eosinophils # (A) 0.2 k/uL (0-0.7); Eosinophils % (A) 2 %; HCT 34.5 % (39.0-53.0); HGB 10.6 gm/dL (13.0-17.5); Lymphocytes # (A) 2.5 k/uL (1.0-4.8); Lymphocytes % (A) 38 %; MCH 29.6 pg (25.0-35.0); MCHC 30.7 g/dL (31.0-37.0); MCV 96.2 fL (80.0-100.0); Mean Platelet Volume 6.9; Monocytes # (A) 0.4 k/uL (0-1.0); Monocytes % (A) 6 %; Neutrophils # (A) 3.3 k/uL (1.3-7.7); Neutrophils % (A) 51 %; Platelet Count 276 k/uL (150-450); RBC 3.59 m/uL (4.30-5.90); RDW 16.8 % (11.5-15.5); WBC 6.6 k/uL (3.8-10.6)
[2019-04-13 01:58] LABS: INR 0.9 (<1.2); Partial Thromboplastin Time 25.1 sec (22.0-30.0); Prothrombin Time 9.4 sec (9.0-12.0)
--- NOTE | 2019-04-13 01:58 | XR ---
EXAM: XR Chest, 2 Views CLINICAL HISTORY: ITS.REASON XR Reason: altered mental status TECHNIQUE: Frontal and lateral views of the chest. COMPARISON: Chest x-ray 10/07/18 IMPRESSION: Unchanged heart size. No consolidation or pleural effusion.
[2019-04-13 02:04] LABS: Appearance,Urine Cloudy (Clear); Bilirubin,Urine Negative (Negative); Blood,Urine Negative (Negative); Color,Urine Yellow; Glucose,Urine (UA) Negative (Negative); Hyaline Casts,Urine 72 /lpf (0-2); Ketones,Urine Trace (Negative); Leukocyte Esterase,Urine Trace (Negative); Mucus,Urine Moderate /hpf; Nitrite,Urine Negative (Negative); Protein,Urine 1+ (Negative); RBC,Urine 2 /hpf (0-5); Specific Gravity,Urine 1.033 (1.001-1.035); Squamous Epithelial Cell,Urine <1 /hpf (0-4); WBC,Urine 2 /hpf (0-5)
[2019-04-13 02:05] LABS: Amphetamine Screen,Urine Not Detected (NotDetected); Barbiturate Screen,Urine Not Detected (NotDetected); Benzodiazepines Screen,Urine Not Detected (NotDetected); Cocaine Screen,Urine Not Detected (NotDetected); Methadone Screen, Urine Not Detected (NotDetected); Opiate Screen,Urine Detected (NotDetected); Oxycodone Screen, Urine Not Detected (NotDetected); Phencyclidine Screen,Urine Not Detected (NotDetected); Tricyclic Antidepressant,Urine Not Detected (NotDetected); Urn Cannabinoid Scrn Not Detected (NotDetected)
--- NOTE | 2019-04-13 02:19 | ED ---
Altered Mental Status HPI - General Chief Complaint: Altered Mental Status Stated Complaint: Confusion Time Seen by Provider: 04/13/19 01:04 Source: patient, family Mode of arrival: wheelchair Limitations: altered mental status - History of Present Illness Initial Comments: Abram is a pleasant 68-year-old gentleman is brought to the emergency department today by his for evaluation of altered mental status. She reports that throughout the day he was in his usual state of health, however this evening around midnight he got dressed and told her that he needed to go to work. He was awake alert oriented aware of the year aware that he had retired but insisted that he needed to go to work and that he was working second shift. He did used to works second shift when he was younger. He has not worked for 14 years. She found this very out of character for him and said to bring him the ER for evaluation. Upon arrival patient has no complaints. - Related Data Home Medications Medication Instructions Recorded Confirmed Atorvastatin [Lipitor] 80 mg PO HS 05/26/17 10/17/18 Cholecalciferol [Vitamin D3 (25 1,000 unit PO DAILY 05/26/17 10/17/18 Mcg = 1000 Iu)] Tamsulosin HCl [Flomax] 0.4 mg PO QAM 05/26/17 10/17/18 Ferrous Sulfate [Feosol] 325 mg PO BID 06/29/17 10/17/18 Ranitidine HCl [Zantac] 150 mg PO BID 07/13/17 10/17/18 Sertraline [Zoloft] 25 mg PO DAILY 08/28/17 10/17/18 Aspirin EC [Ecotrin Low Dose] 81 mg PO DAILY 02/12/18 10/17/18 Calcitriol 0.25 mcg PO DAILY 10/07/18 10/17/18 amLODIPine [Norvasc] 5 mg PO DAILY 10/10/18 10/17/18 Previous Rx's Medication Instructions Recorded Clopidogrel [Plavix] 75 mg PO DAILY #30 tab 11/24/17 Acetaminophen Tab [Tylenol] 500 mg PO Q6HR PRN tab 10/09/18 Allergies Allergy/AdvReac Type Severity Reaction Status Date / Time No Known Allergies Allergy Verified 04/13/19 01:03 Review of Systems ROS Statement: Those systems with pertinent positive or pertinent negative responses have been documented in the HPI. ROS Other: All systems not noted in ROS Statement are negative. Past Medical History Past Medical History: COPD, CVA/TIA, Eye Disorder, GERD/Reflux, Hyperlipidemia, Hypertension, Osteoarthritis (OA), Prostate Disorder, Renal Disease, Sleep Apnea/CPAP/BIPAP, Syncope Additional Past Medical History / Comment(s): pt is rt side dominant. hx ofMultiple TIAs, CVA 01/2017 with dysphagia-peg tube inserted and now out, has residual weakness lt arm/leg and some lt facial droop. chronic kidney disease BPH, Uti, ROSA has Cpap but does not tolerate it no longer using it, gastric ulcer, soniya eye cataracts, past hxR foot 3rd toe osteomylitis, arthritis multiple joints, past gastric ulcer, past hx shingels. , History of Any Multi-Drug Resistant Organisms: None Reported Past Surgical History: Hernia Repair, Joint Replacement Additional Past Surgical History / Comment(s): 06/01/17 intracranial angioplasty- (pt stated "he has stents') HFH, EGD with peg tube insertion since removed, R inguinal hernia repair, R total knee arthroplasty, colonoscopies with last one in 2014-normal., Past Anesthesia/Blood Transfusion Reactions: No Reported Reaction Past Psychological History: No Psychological Hx Reported Smoking Status: Former smoker Past Alcohol Use History: None Reported Past Drug Use History: None Reported - Past Family History Mother Family Medical History: CVA/TIA, Diabetes Mellitus, Hyperlipidemia, Hypertension Father Family Medical History: CVA/TIA, Hypertension General Exam - General Exam Comments Initial Comments: Physical Exam GENERAL: Patient is well-developed and well-nourished. Patient is nontoxic and well-hydrated and is in no distress. HENT: Normocephalic, Atraumatic. EYES: PERRL, EOMI PULMONARY: Unlabored respirations. No audible rales rhonchi or wheezing was noted. CARDIOVASCULAR: RRR ABDOMEN: Soft and nontender with normal bowel sounds. SKIN: Skin is clear with no lesions or rashes and otherwise unremarkable. : Deferred NEUROLOGIC: Alert and oriented person, place and year, able to speak that he retired in 2004, able to state where he worked in what shift, repeatedly insists that he needs to go to work tonight Some residual left sided weakness No obvious facial droop MUSCULOSKELETAL: Normal extremities with adequate strength and full range of motion. No lower extremity swelling or edema. No calf tenderness. PSYCHIATRIC: Pleasantly confused Limitations: altered mental status Course Vital Signs 04/13/19 04/13/19 04/13/19 01:00 02:20 03:06 Temperature 98.4 F 98.0 F Pulse Rate 66 62 65 Respiratory 18 18 18 Rate Blood Pressure 141/87 157/95 155/90 O2 Sat by Pulse 98 97 95 Oximetry Medical Decision Making - Medical Decision Making The patient was seen and evaluated history was obtained from the patient and at bedside Patient with Hx of CVA/TIA in past, presenting confused Labs and imaging were obtained CT imaging with no acute changes, patient is awake alert oriented admits that he believed he needed to go to work tonight, nose that he does not work any longer is somewhat confused by this Labs reveal mild elevation and BUN and creatinine from patient's baseline, otherwise chronic anemia is unchanged Results were discussed with the patient and at bedside. I discussed options with the patient and at bedside including admission to hospital for further evaluation by neurology in psychology versus discharge home and outpatient follow-up with neurology. The patient has an established relationship with Dr. Taz daniels and would prefer outpatient follow-up for continuity of care. does feel comfortable taking him home at this time. She does believe he has dementia she has been told this in the past but is not on any medications. I believe he had an episode of sundowning this evening. Patient remains awake alert oriented cooperative and stable for discharge home - Lab Data Result diagrams: 04/13/19 01:21 04/13/19 01:21 Lab Results 04/13/19 04/13/19 04/13/19 Range/Units 01:07 01:21 01:21 WBC 6.6 (3.8-10.6) k/uL RBC 3.59 L (4.30-5.90) m/uL Hgb 10.6 L (13.0-17.5) gm/dL Hct 34.5 L (39.0-53.0) % MCV 96.2 (80.0-100.0) fL MCH 29.6 (25.0-35.0) pg MCHC 30.7 L (31.0-37.0) g/dL RDW 16.8 H (11.5-15.5) % Plt Count 276 (150-450) k/uL Neutrophils % 51 % Lymphocytes % 38 % Monocytes % 6 % Eosinophils % 2 % Basophils % 1 % Neutrophils # 3.3 (1.3-7.7) k/uL Lymphocytes # 2.5 (1.0-4.8) k/uL Monocytes # 0.4 (0-1.0) k/uL Eosinophils # 0.2 (0-0.7) k/uL Basophils # 0.0 (0-0.2) k/uL Anisocytosis Slight PT (9.0-12.0) sec INR (<1.2) APTT (22.0-30.0) sec Sodium 142 (137-145) mmol/L Potassium 3.8 (3.5-5.1) mmol/L Chloride 108 H (98-107) mmol/L Carbon Dioxide 26 (22-30) mmol/L Anion Gap 8 mmol/L BUN 23 H (9-20) mg/dL Creatinine 1.43 H (0.66-1.25) mg/dL Est GFR (CKD-EPI)AfAm 58 (>60 ml/min/1.73 sqM) Est GFR (CKD-EPI)NonAf 50 (>60 ml/min/1.73 sqM) Glucose 122 H (74-99) mg/dL POC Glucose (mg/dL) 116 H (75-99) mg/dL POC Glu [employer] Log[employer] Operator ID Aretha Palomo Calcium 9.7 (8.4-10.2) mg/dL Total Bilirubin 0.2 (0.2-1.3) mg/dL AST 22 (17-59) U/L ALT 22 (21-72) U/L Alkaline Phosphatase 139 H (38-126) U/L Troponin I (0.000-0.034) ng/mL Total Protein 7.3 (6.3-8.2) g/dL Albumin 4.3 (3.5-5.0) g/dL Urine Color Urine Appearance (Clear) Urine pH (5.0-8.0) Ur Specific [place] (1.001-1.035) Urine Protein (Negative) Urine Glucose (UA) (Negative) Urine Ketones (Negative) Urine Blood (Negative) Urine Nitrite (Negative) Urine Bilirubin (Negative) Urine Urobilinogen (<2.0) mg/dL Ur Leukocyte Esterase (Negative) Urine RBC (0-5) /hpf Urine WBC (0-5) /hpf Ur Squamous Epith Cells (0-4) /hpf Hyaline Casts (0-2) /lpf Urine Mucus (None) /hpf Urine Opiates Screen (NotDetected) Ur Oxycodone Screen (NotDetected) Urine Methadone Screen (NotDetected) Ur Propoxyphene Screen (NotDetected) Ur Barbiturates Screen (NotDetected) U Tricyclic Antidepress (NotDetected) Ur Phencyclidine Scrn (NotDetected) Ur Amphetamines Screen (NotDetected) U Methamphetamines Scrn (NotDetected) U Benzodiazepines Scrn (NotDetected) Urine Cocaine Screen (NotDetected) U Marijuana (THC) Screen (NotDetected) 04/13/19 04/13/19 04/13/19 Range/Units 01:21 01:21 01:31 WBC (3.8-10.6) k/uL RBC (4.30-5.90) m/uL Hgb (13.0-17.5) gm/dL Hct (39.0-53.0) % MCV (80.0-100.0) fL MCH (25.0-35.0) pg MCHC (31.0-37.0) g/dL RDW (11.5-15.5) % Plt Count (150-450) k/uL Neutrophils % % Lymphocytes % % Monocytes % % Eosinophils % % Basophils % % Neutrophils # (1.3-7.7) k/uL Lymphocytes # (1.0-4.8) k/uL Monocytes # (0-1.0) k/uL Eosinophils # (0-0.7) k/uL Basophils # (0-0.2) k/uL Anisocytosis PT 9.4 (9.0-12.0) sec INR 0.9 (<1.2) APTT 25.1 (22.0-30.0) sec Sodium (137-145) mmol/L Potassium (3.5-5.1) mmol/L Chloride (98-107) mmol/L Carbon Dioxide (22-30) mmol/L Anion Gap mmol/L BUN (9-20) mg/dL Creatinine (0.66-1.25) mg/dL Est GFR (CKD-EPI)AfAm (>60 ml/min/1.73 sqM) Est GFR (CKD-EPI)NonAf (>60 ml/min/1.73 sqM) Glucose (74-99) mg/dL POC Glucose (mg/dL) (75-99) mg/dL POC Glu [employer] Operator ID Calcium (8.4-10.2) mg/dL Total Bilirubin (0.2-1.3) mg/dL AST (17-59) U/L ALT (21-72) U/L Alkaline Phosphatase (38-126) U/L Troponin I <0.012 (0.000-0.034) ng/mL Total Protein (6.3-8.2) g/dL Albumin (3.5-5.0) g/dL Urine Color Yellow Urine Appearance Cloudy (Clear) Urine pH 6.0 (5.0-8.0) Ur Specific [place] 1.033 (1.001-1.035) Urine Protein 1+ H (Negative) Urine Glucose (UA) Negative (Negative) Urine Ketones Trace H (Negative) Urine Blood Negative (Negative) Urine Nitrite Negative (Negative) Urine Bilirubin Negative (Negative) Urine Urobilinogen 2.0 (<2.0) mg/dL Ur Leukocyte Esterase Trace H (Negative) Urine RBC 2 (0-5) /hpf Urine WBC 2 (0-5) /hpf Ur Squamous Epith Cells <1 (0-4) /hpf Hyaline Casts 72 H (0-2) /lpf Urine Mucus Moderate H (None) /hpf Urine Opiates Screen Detected H (NotDetected) Ur Oxycodone Screen Not Detected (NotDetected) Urine Methadone Screen Not Detected (NotDetected) Ur Propoxyphene Screen Not Detected (NotDetected) Ur Barbiturates Screen Not Detected (NotDetected) U Tricyclic Antidepress Not Detected (NotDetected) Ur Phencyclidine Scrn Not Detected (NotDetected) Ur Amphetamines Screen Not Detected (NotDetected) U Methamphetamines Scrn Not Detected (NotDetected) U Benzodiazepines Scrn Not Detected (NotDetected) Urine Cocaine Screen Not Detected (NotDetected) U Marijuana (THC) Screen Not Detected (NotDetected) Disposition Clinical Impression: Dehydration, Dementia Disposition: HOME SELF-CARE Condition: Stable Instructions (If sedation given, give patient instructions): Alzheimer Disease (DC), Dementia (ED) Is patient prescribed a controlled substance at d/c from ED?: No Referrals: Rick Luke MD [Primary Care Provider] - 1-2 days
[2019-04-13 03:08] VITALS: BP 155/90; PULSE 65; TEMP 98
== END 2019-04-13 03:09 | disposition home or self-care (01) ==
LOC: EC 00:57
DX: E86.0 Dehydration (principal); F03.90 Unspecified dementia, unspecified severity, without behavioral disturbance, psychotic disturbance, mood disturbance, and anxiety; R79.89 Other specified abnormal findings of blood chemistry; D53.9 Nutritional anemia, unspecified; I69.354 Hemiplegia and hemiparesis following cerebral infarction affecting left non-dominant side; K21.9 Gastro-esophageal reflux disease without esophagitis; E78.5 Hyperlipidemia, unspecified; M19.90 Unspecified osteoarthritis, unspecified site; N40.0 Benign prostatic hyperplasia without lower urinary tract symptoms; N18.9 Chronic kidney disease, unspecified; I12.9 Hypertensive chronic kidney disease with stage 1 through stage 4 chronic kidney disease, or unspecified chronic kidney disease; Z87.891 Personal history of nicotine dependence; Z79.82 Long term (current) use of aspirin; Z79.899 Other long term (current) drug therapy; Z96.651 Presence of right artificial knee joint; Z82.3 Family history of stroke; Z53.8 Procedure and treatment not carried out for other reasons
CPT/HCPCS: 36415; 70450; 71046; 80053; 80306; 81001; 84484; 85025; 85610; 85730; 96360; 99285

== ENCOUNTER 2019-05-17 13:41 | Emergency (ER) | payer MEDICARE, OTHER ==
[2019-05-17 13:50] VITALS: RESP 18
--- NOTE | 2019-05-17 14:37 | ED ---
General Adult HPI - General Chief complaint: Weakness Stated complaint: TIA symptoms Time Seen by Provider: 05/17/19 14:14 Source: patient, EMS Mode of arrival: EMS Limitations: physical limitation - History of Present Illness Initial comments: Patient is a 68-year-old male presenting to the emergency department via EMS with complaints of weakness and slurred speech that lasted about 5-10 minutes. Patient's is here with him. Patient has past medical history of multiple TIAs, CVA with residual weakness on the left side including left-sided facial droop and weakness of left arm and leg. Patient's states that they slept in this morning, he took a shower, and then sat down to eat breakfast. Patient then proceeded to slump over and did not respond to his when called. Patient was not able to say his 's name and was not able to bring a Kleenex to his face. Patient's stated she called EMS and by the time the EMS showed up the patient's symptoms seemed to improve. Patient's states that their air conditioner recently when out but there was a portable air-conditioner in the home and he was feeling comfortable. Patient has not been drinking a lot of water the last week. Patient states he does remember sitting down to table and then not feeling well after that. Upon arrival in the ER patient is alert and oriented. Patient does know 's name at this time and states he has no pain at this time. Patient states he just feels "out of it." Patient denies fever, chills, chest pain, shortness of breath, cough, abdominal pain, nausea, vomiting, urinary symptoms. - Related Data Home Medications Medication Instructions Recorded Confirmed Atorvastatin [Lipitor] 80 mg PO HS 05/26/17 05/17/19 Tamsulosin HCl [Flomax] 0.4 mg PO DAILY 05/26/17 05/17/19 Ferrous Sulfate [Feosol] 325 mg PO BID 06/29/17 05/17/19 Ranitidine HCl [Zantac] 150 mg PO BID 07/13/17 05/17/19 Sertraline [Zoloft] 25 mg PO DAILY 08/28/17 05/17/19 Aspirin EC [Ecotrin Low Dose] 81 mg PO DAILY 02/12/18 05/17/19 Calcitriol 0.25 mcg PO TUTH 10/07/18 05/17/19 amLODIPine [Norvasc] 5 mg PO DAILY 10/10/18 05/17/19 Cetirizine HCl [Zyrtec] 10 mg PO DAILY 05/17/19 05/17/19 Docusate [Colace] 100 mg PO DAILY 05/17/19 05/17/19 Midodrine HCl [ProAmantine] 2.5 mg PO TID 05/17/19 05/17/19 Mirabegron [Myrbetriq] 50 mg PO DAILY 05/17/19 05/17/19 Previous Rx's Medication Instructions Recorded Clopidogrel [Plavix] 75 mg PO DAILY #30 tab 11/24/17 Allergies Allergy/AdvReac Type Severity Reaction Status Date / Time No Known Allergies Allergy Verified 05/17/19 14:50 Review of Systems ROS Statement: Those systems with pertinent positive or pertinent negative responses have been documented in the HPI. ROS Other: All systems not noted in ROS Statement are negative. Past Medical History Past Medical History: COPD, CVA/TIA, Eye Disorder, GERD/Reflux, Hyperlipidemia, Hypertension, Osteoarthritis (OA), Prostate Disorder, Renal Disease, Sleep Apnea/CPAP/BIPAP, Syncope Additional Past Medical History / Comment(s): pt is rt side dominant. hx ofMultiple TIAs, CVA 01/2017 with dysphagia-peg tube inserted and now out, has residual weakness lt arm/leg and some lt facial droop. chronic kidney disease BPH, Uti, ROSA has Cpap but does not tolerate it no longer using it, gastric ulcer, soniya eye cataracts, past hxR foot 3rd toe osteomylitis, arthritis multiple joints, past gastric ulcer, past hx shingels. , History of Any Multi-Drug Resistant Organisms: None Reported Past Surgical History: Hernia Repair, Joint Replacement Additional Past Surgical History / Comment(s): 06/01/17 intracranial angioplasty- (pt stated "he has stents') HFH, EGD with peg tube insertion since removed, R inguinal hernia repair, R total knee arthroplasty, colonoscopies with last one in 2014-normal., Past Anesthesia/Blood Transfusion Reactions: No Reported Reaction Past Psychological History: No Psychological Hx Reported Smoking Status: Former smoker Past Alcohol Use History: None Reported Past Drug Use History: None Reported - Past Family History Mother Family Medical History: CVA/TIA, Diabetes Mellitus, Hyperlipidemia, Hypertension Father Family Medical History: CVA/TIA, Hypertension General Exam Limitations: physical limitation (Residual left-sided weakness from CVA, patient does walk with a cane.) General appearance: alert, in no apparent distress Head exam: Present: atraumatic, normocephalic Eye exam: Present: normal appearance, PERRL, EOMI Pupils: Present: normal accommodation. Absent: unequal ENT exam: Present: normal exam, normal oropharynx, mucous membranes moist Neck exam: Present: normal inspection, full ROM. Absent: tenderness Respiratory exam: Present: normal lung sounds bilaterally. Absent: respiratory distress, wheezes, rhonchi Cardiovascular Exam: Present: regular rate, normal rhythm, normal heart sounds. Absent: rubs, gallop, clicks GI/Abdominal exam: Present: soft, normal bowel sounds. Absent: distended, tenderness, guarding, mass Extremities exam: Present: normal inspection, normal capillary refill. Absent: pedal edema, joint swelling Back exam: Present: normal inspection Neurological exam: Present: alert, oriented X3, CN II-XII intact Expanded Patient oriented to: Present: person, place, time Speech: Present: fluid speech Cranial nerves: EOM's Intact: Normal, Tongue Deviation: Normal, Nystagmus: Normal Motor strength exam: RUE: 5, LUE: 5, RLE: 5, LLE: 5 Eye Response: (4) open spontaneously Motor Response: (6) obeys commands Verbal Response: (5) oriented Ilir Total: 15 Psychiatric exam: Present: normal affect, normal mood Skin exam: Present: warm, dry, intact Course Vital Signs 05/17/19 05/17/19 05/17/19 13:45 13:50 17:28 Temperature 98.7 F 98.7 F 98 F Pulse Rate 65 65 69 Respiratory 18 18 18 Rate Blood Pressure 119/79 119/79 152/89 O2 Sat by Pulse 93 L 93 L 99 Oximetry EKG Findings - EKG Comments: EKG Findings:: Ventricular rate 65, AK interval 184, QRS 86 QTC 420. Normal sinus rhythm. No acute ST-T segment changes. EKG looks similar to previous EKG taken on 04/13/2019. Medical Decision Making - Medical Decision Making Patient is a 68-year-old male presenting via EMS with his after patient slumped over after he was sitting down for breakfast. states patient was seated at the table for breakfast when he slumped over and had some weakness of his left arm. also states patient was unable to say his 's name. states the episode lasted about 5-10 minutes. As EMS was arriving states the patient started to come to again. Patient has history of multiple TIAs and CVA which has resulted in residual left-sided weakness. Patient denies any recent fever, chills, abdominal pain, urinary symptoms. Upon arrival patient's vital signs are stable. Patient's exam was unremarkable including neuro exam. CBC, CMP, UA are comparable to his last values. EKG is within normal limits. CT of the head shows no change compared to old exam. Patient was given a fluid bolus and feels improvement. Patient and are wanting to go home. Etelvina stark's states she feels comfortable with him coming home. Return parameters were discussed with the patient and his and they both verbalize understanding. Vital signs remained stable throughout his stay. Patient is safe to be discharged home. Case discussed with Dr. Coulter. - Lab Data Result diagrams: 05/17/19 14:40 05/17/19 14:40 Lab Results 05/17/19 05/17/19 05/17/19 Range/Units 14:40 14:40 16:00 WBC 5.5 (3.8-10.6) k/uL RBC 3.25 L (4.30-5.90) m/uL Hgb 9.8 L (13.0-17.5) gm/dL Hct 30.2 L (39.0-53.0) % MCV 92.8 (80.0-100.0) fL MCH 30.2 (25.0-35.0) pg MCHC 32.5 (31.0-37.0) g/dL RDW 17.1 H (11.5-15.5) % Plt Count 279 (150-450) k/uL Neutrophils % 67 % Lymphocytes % 24 % Monocytes % 5 % Eosinophils % 2 % Basophils % 1 % Neutrophils # 3.7 (1.3-7.7) k/uL Lymphocytes # 1.3 (1.0-4.8) k/uL Monocytes # 0.3 (0-1.0) k/uL Eosinophils # 0.1 (0-0.7) k/uL Basophils # 0.0 (0-0.2) k/uL Hypochromasia Slight Anisocytosis Slight Sodium 138 (137-145) mmol/L Potassium 4.8 (3.5-5.1) mmol/L Chloride 108 H (98-107) mmol/L Carbon Dioxide 21 L (22-30) mmol/L Anion Gap 9 mmol/L BUN 22 H (9-20) mg/dL Creatinine 1.35 H (0.66-1.25) mg/dL Est GFR (CKD-EPI)AfAm 61 (>60 ml/min/1.73 sqM) Est GFR (CKD-EPI)NonAf 53 (>60 ml/min/1.73 sqM) Glucose 99 (74-99) mg/dL Calcium 8.7 (8.4-10.2) mg/dL Total Bilirubin 1.1 (0.2-1.3) mg/dL AST 65 H (17-59) U/L ALT <6 L (21-72) U/L Alkaline Phosphatase 114 (38-126) U/L Total Protein 7.6 (6.3-8.2) g/dL Albumin 4.1 (3.5-5.0) g/dL Urine Color Yellow Urine Appearance Clear (Clear) Urine pH 6.5 (5.0-8.0) Ur Specific [place] 1.024 (1.001-1.035) Urine Protein Trace H (Negative) Urine Glucose (UA) Negative (Negative) Urine Ketones Negative (Negative) Urine Blood Negative (Negative) Urine Nitrite Negative (Negative) Urine Bilirubin Negative (Negative) Urine Urobilinogen 3.0 (<2.0) mg/dL Ur Leukocyte Esterase Negative (Negative) Disposition Clinical Impression: Near syncope, Dehydration Disposition: HOME SELF-CARE Condition: Stable Instructions (If sedation given, give patient instructions): Dehydration (ED), Syncope (ED) Additional Instructions: Please return to the Emergency Department if symptoms worsen or any other concerns. Is patient prescribed a controlled substance at d/c from ED?: No Referrals: Rick Luke MD [Primary Care Provider] - 1-2 days
[2019-05-17] MEDS ORDERED: SODIUM CHLORIDE 0.9% 1,000 ML IV STA (14:44)
[2019-05-17 15:15] LABS: Anisocytosis Slight; Basophils % (A) 1 %; Eosinophils # (A) 0.1 k/uL (0-0.7); Eosinophils % (A) 2 %; HCT 30.2 % (39.0-53.0); HGB 9.8 gm/dL (13.0-17.5); Hypochromasia Slight; Lymphocytes # (A) 1.3 k/uL (1.0-4.8); Lymphocytes % (A) 24 %; MCH 30.2 pg (25.0-35.0); MCHC 32.5 g/dL (31.0-37.0); MCV 92.8 fL (80.0-100.0); Mean Platelet Volume 7.7; Monocytes # (A) 0.3 k/uL (0-1.0); Monocytes % (A) 5 %; Neutrophils # (A) 3.7 k/uL (1.3-7.7); Neutrophils % (A) 67 %; Platelet Count 279 k/uL (150-450); RBC 3.25 m/uL (4.30-5.90); RDW 17.1 % (11.5-15.5); WBC 5.5 k/uL (3.8-10.6)
[2019-05-17 15:26] LABS: ALT <6 U/L (21-72); AST 65 U/L (17-59); African American GFR (CKD) 61 (>60 ml/min/1.73 sqM); Albumin 4.1 g/dL (3.5-5.0); Alkaline Phosphatase 114 U/L (38-126); Anion Gap 9 mmol/L; Blood Urea Nitrogen 22 mg/dL (9-20); Calcium 8.7 mg/dL (8.4-10.2); Carbon Dioxide 21 mmol/L (22-30); Chloride 108 mmol/L (98-107); Glucose 99 mg/dL (74-99); Sodium 138 mmol/L (137-145); Total Bilirubin 1.1 mg/dL (0.2-1.3); Total Protein 7.6 g/dL (6.3-8.2)
[2019-05-17 15:37] LABS: Potassium 4.8 mmol/L (3.5-5.1)
[2019-05-17 16:14] LABS: Appearance,Urine Clear (Clear); Bilirubin,Urine Negative (Negative); Blood,Urine Negative (Negative); Color,Urine Yellow; Glucose,Urine (UA) Negative (Negative); Ketones,Urine Negative (Negative); Leukocyte Esterase,Urine Negative (Negative); Nitrite,Urine Negative (Negative); PH, Urine 6.5 (5.0-8.0); Protein,Urine Trace (Negative); Specific Gravity,Urine 1.024 (1.001-1.035)
--- NOTE | 2019-05-17 16:27 | CT ---
EXAMINATION TYPE: CT brain wo con DATE OF EXAM: 05/17/2019 COMPARISON: 04/13/2019 HISTORY: Altered mental status. CT DLP: 1153.4 mGycm Automated exposure control for dose reduction was used. FINDINGS: There is cerebral cortical atrophy. There is patchy hypodensity in the periventricular white matter. There is no mass effect nor midline shift. There is no sign of intracranial hemorrhage. There is hypo density in the anterior internal capsule bilaterally. Calvarium is intact. There is mild mucosal thic kening in the sphenoid sinus. IMPRESSION: CEREBRAL ATROPHY. CHRONIC SMALL VESSEL ISCHEMIA. BILATERAL OLD INTERNAL CAPSULE ANTERIOR LACUNAR INFA RCT. NO CHANGE COMPARED TO OLD EXAM.
[2019-05-17 17:30] VITALS: BP 152/89; PULSE 69; TEMP 98
== END 2019-05-17 17:35 | disposition home or self-care (01) ==
LOC: EC 13:41
DX: E86.0 Dehydration (principal); R55 Syncope and collapse; K21.9 Gastro-esophageal reflux disease without esophagitis; E78.5 Hyperlipidemia, unspecified; I12.9 Hypertensive chronic kidney disease with stage 1 through stage 4 chronic kidney disease, or unspecified chronic kidney disease; N18.9 Chronic kidney disease, unspecified; M19.90 Unspecified osteoarthritis, unspecified site; G47.33 Obstructive sleep apnea (adult) (pediatric); Z79.82 Long term (current) use of aspirin; Z79.899 Other long term (current) drug therapy; Z96.651 Presence of right artificial knee joint; Z86.73 Personal history of transient ischemic attack (TIA), and cerebral infarction without residual deficits
CPT/HCPCS: 36415; 70450; 80053; 81003; 85025; 96360; 99285

== ENCOUNTER 2019-06-07 14:50 | Emergency (ER) | payer MEDICARE, OTHER ==
[2019-06-07 15:11] VITALS: RESP 16; TEMP 98.3
[2019-06-07] MEDS ORDERED: SODIUM CHLORIDE 0.9% 500 ML 500 ML IV STA (15:46)
[2019-06-07] MEDS ORDERED: MECLIZINE 12.5 MG TAB PO STA (16:14)
[2019-06-07] MEDS ORDERED: ONDANSETRON 4 MG/2 ML VIAL IVP STA (16:14)
[2019-06-07 16:15] LABS: Anisocytosis Slight; Basophils % (A) 0 %; Eosinophils # (A) 0.1 k/uL (0-0.7); Eosinophils % (A) 1 %; HCT 33.7 % (39.0-53.0); HGB 10.8 gm/dL (13.0-17.5); Lymphocytes % (A) 14 %; MCH 29.9 pg (25.0-35.0); MCHC 31.9 g/dL (31.0-37.0); MCV 93.5 fL (80.0-100.0); Mean Platelet Volume 7.1; Monocytes # (A) 0.3 k/uL (0-1.0); Monocytes % (A) 5 %; Neutrophils # (A) 5.5 k/uL (1.3-7.7); Neutrophils % (A) 78 %; Platelet Count 269 k/uL (150-450); RBC 3.61 m/uL (4.30-5.90); RDW 17.5 % (11.5-15.5); WBC 7.1 k/uL (3.8-10.6)
[2019-06-07 16:19] LABS: Appearance,Urine Clear (Clear); Bilirubin,Urine Negative (Negative); Blood,Urine Negative (Negative); Color,Urine Yellow; Glucose,Urine (UA) Negative (Negative); Hyaline Casts,Urine 7 /lpf (0-2); Ketones,Urine Negative (Negative); Leukocyte Esterase,Urine Negative (Negative); Mucus,Urine Occasional /hpf; Nitrite,Urine Negative (Negative); PH, Urine 6.5 (5.0-8.0); Protein,Urine 1+ (Negative); RBC,Urine 3 /hpf (0-5); Squamous Epithelial Cell,Urine <1 /hpf (0-4)
[2019-06-07 16:23] LABS: Albumin 4.1 g/dL (3.5-5.0); Calcium 9.5 mg/dL (8.4-10.2); INR 0.9 (<1.2); Magnesium 1.7 mg/dL (1.6-2.3); Partial Thromboplastin Time 25.8 sec (22.0-30.0); Potassium 3.5 mmol/L (3.5-5.1); Total Bilirubin 0.4 mg/dL (0.2-1.3); Total Protein 7.4 g/dL (6.3-8.2)
--- NOTE | 2019-06-07 16:35 | ED ---
Weakness HPI - General Chief complaint: Weakness Stated complaint: Vomiting/dizziness Time Seen by Provider: 06/07/19 15:45 Source: patient, RN notes reviewed Mode of arrival: ambulatory Limitations: no limitations - History of Present Illness Initial comments: 68-year-old male presents emergency Department chief complaint of episode of nausea vomiting dizziness. Patient states that he was sitting down last night and became very nauseous and which he vomited. He states that he had no chest pain or shortness breath no headache or blurred vision no focal weakness though he does have some residual weakness from his prior CVA. Patient states that he had no episode morning. Patient states he felt dizzy when he stood up with that has improved. Patient denies any went abdominal pain no dysuria no hematuria. - Related Data Home Medications Medication Instructions Recorded Confirmed Atorvastatin [Lipitor] 80 mg PO HS 05/26/17 05/17/19 Tamsulosin HCl [Flomax] 0.4 mg PO DAILY 05/26/17 05/17/19 Ferrous Sulfate [Feosol] 325 mg PO BID 06/29/17 05/17/19 Ranitidine HCl [Zantac] 150 mg PO BID 07/13/17 05/17/19 Sertraline [Zoloft] 25 mg PO DAILY 08/28/17 05/17/19 Aspirin EC [Ecotrin Low Dose] 81 mg PO DAILY 02/12/18 05/17/19 Calcitriol 0.25 mcg PO TUTH 10/07/18 05/17/19 amLODIPine [Norvasc] 5 mg PO DAILY 10/10/18 05/17/19 Cetirizine HCl [Zyrtec] 10 mg PO DAILY 05/17/19 05/17/19 Docusate [Colace] 100 mg PO DAILY 05/17/19 05/17/19 Midodrine HCl [ProAmantine] 2.5 mg PO TID 05/17/19 05/17/19 Mirabegron [Myrbetriq] 50 mg PO DAILY 05/17/19 05/17/19 Previous Rx's Medication Instructions Recorded Clopidogrel [Plavix] 75 mg PO DAILY #30 tab 11/24/17 Meclizine [Antivert] 25 mg PO TID PRN #15 tab 06/07/19 Ondansetron Odt [Zofran Odt] 4 mg PO Q8HR PRN #10 tab 06/07/19 Allergies Allergy/AdvReac Type Severity Reaction Status Date / Time No Known Allergies Allergy Verified 05/17/19 14:50 Review of Systems ROS Statement: Those systems with pertinent positive or pertinent negative responses have been documented in the HPI. ROS Other: All systems not noted in ROS Statement are negative. Past Medical History Past Medical History: COPD, CVA/TIA, Eye Disorder, GERD/Reflux, Hyperlipidemia, Hypertension, Osteoarthritis (OA), Prostate Disorder, Renal Disease, Sleep Apnea/CPAP/BIPAP, Syncope Additional Past Medical History / Comment(s): pt is rt side dominant. hx ofMultiple TIAs, CVA 01/2017 with dysphagia-peg tube inserted and now out, has residual weakness lt arm/leg and some lt facial droop. chronic kidney disease BPH, Uti, ROSA has Cpap but does not tolerate it no longer using it, gastric ulcer, soniya eye cataracts, past hxR foot 3rd toe osteomylitis, arthritis multiple joints, past gastric ulcer, past hx shingels. , History of Any Multi-Drug Resistant Organisms: None Reported Past Surgical History: Hernia Repair, Joint Replacement Additional Past Surgical History / Comment(s): 06/01/17 intracranial angioplasty- (pt stated "he has stents') HFH, EGD with peg tube insertion since removed, R inguinal hernia repair, R total knee arthroplasty, colonoscopies with last one in 2014-normal., Past Anesthesia/Blood Transfusion Reactions: No Reported Reaction Past Psychological History: No Psychological Hx Reported Smoking Status: Former smoker Past Alcohol Use History: None Reported Past Drug Use History: None Reported - Past Family History Mother Family Medical History: CVA/TIA, Diabetes Mellitus, Hyperlipidemia, Hypertension Father Family Medical History: CVA/TIA, Hypertension General Exam Limitations: no limitations General appearance: alert, in no apparent distress Head exam: Present: atraumatic, normocephalic, normal inspection Eye exam: Present: normal appearance, PERRL, EOMI. Absent: scleral icterus, conjunctival injection, periorbital swelling ENT exam: Present: normal exam, normal oropharynx, mucous membranes moist Neck exam: Present: normal inspection, full ROM. Absent: tenderness, meningismus, lymphadenopathy Respiratory exam: Present: normal lung sounds bilaterally. Absent: respiratory distress, wheezes, rales, rhonchi, stridor Cardiovascular Exam: Present: regular rate, normal rhythm, normal heart sounds. Absent: systolic murmur, diastolic murmur, rubs, gallop, clicks GI/Abdominal exam: Present: soft, normal bowel sounds. Absent: distended, tenderness, guarding, rebound, rigid Neurological exam: Present: alert, oriented X3, CN II-XII intact, reflexes normal. Absent: motor sensory deficit Skin exam: Present: warm, dry, intact, normal color. Absent: rash Course Vital Signs 06/07/19 15:09 Temperature 98.3 F Pulse Rate 83 Respiratory 16 Rate Blood Pressure 122/80 O2 Sat by Pulse 97 Oximetry - Reevaluation(s) Reevaluation #1: 06/07/19 17:24 Patient reevaluated updated on results patient able to ambulate in the room with no dizziness. EKG Findings - EKG Comments: EKG Findings:: EKG performed at 15:50 normal sinus rhythm rate 76 CO 174 QRS 86 QT/QTC 390/445 Medical Decision Making - Medical Decision Making 68-year-old male presented for an episode of vomiting and no dizziness. All symptoms are resolved. Patient has no symptoms currently labs or EKG reviewed no acute findings. Patient will be discharged return parameters were discussed. - Lab Data Result diagrams: 06/07/19 15:40 06/07/19 15:40 Lab Results 06/07/19 06/07/19 06/07/19 Range/Units 15:40 15:40 15:40 WBC 7.1 (3.8-10.6) k/uL RBC 3.61 L (4.30-5.90) m/uL Hgb 10.8 L (13.0-17.5) gm/dL Hct 33.7 L (39.0-53.0) % MCV 93.5 (80.0-100.0) fL MCH 29.9 (25.0-35.0) pg MCHC 31.9 (31.0-37.0) g/dL RDW 17.5 H (11.5-15.5) % Plt Count 269 (150-450) k/uL Neutrophils % 78 % Lymphocytes % 14 % Monocytes % 5 % Eosinophils % 1 % Basophils % 0 % Neutrophils # 5.5 (1.3-7.7) k/uL Lymphocytes # 1.0 (1.0-4.8) k/uL Monocytes # 0.3 (0-1.0) k/uL Eosinophils # 0.1 (0-0.7) k/uL Basophils # 0.0 (0-0.2) k/uL Anisocytosis Slight PT 10.0 (9.0-12.0) sec INR 0.9 (<1.2) APTT 25.8 (22.0-30.0) sec Sodium 140 (137-145) mmol/L Potassium 3.5 (3.5-5.1) mmol/L Chloride 103 (98-107) mmol/L Carbon Dioxide 28 (22-30) mmol/L Anion Gap 9 mmol/L BUN 19 (9-20) mg/dL Creatinine 1.39 H (0.66-1.25) mg/dL Est GFR (CKD-EPI)AfAm 60 (>60 ml/min/1.73 sqM) Est GFR (CKD-EPI)NonAf 52 (>60 ml/min/1.73 sqM) Glucose 114 H (74-99) mg/dL Calcium 9.5 (8.4-10.2) mg/dL Magnesium 1.7 (1.6-2.3) mg/dL Total Bilirubin 0.4 (0.2-1.3) mg/dL AST 21 (17-59) U/L ALT 31 (21-72) U/L Alkaline Phosphatase 120 (38-126) U/L Creatine Kinase 111 (55-170) U/L Troponin I (0.000-0.034) ng/mL Total Protein 7.4 (6.3-8.2) g/dL Albumin 4.1 (3.5-5.0) g/dL Urine Color Urine Appearance (Clear) Urine pH (5.0-8.0) Ur Specific [place] (1.001-1.035) Urine Protein (Negative) Urine Glucose (UA) (Negative) Urine Ketones (Negative) Urine Blood (Negative) Urine Nitrite (Negative) Urine Bilirubin (Negative) Urine Urobilinogen (<2.0) mg/dL Ur Leukocyte Esterase (Negative) Urine RBC (0-5) /hpf Urine WBC (0-5) /hpf Ur Squamous Epith Cells (0-4) /hpf Hyaline Casts (0-2) /lpf Urine Mucus (None) /hpf 06/07/19 06/07/19 Range/Units 15:40 16:00 WBC (3.8-10.6) k/uL RBC (4.30-5.90) m/uL Hgb (13.0-17.5) gm/dL Hct (39.0-53.0) % MCV (80.0-100.0) fL MCH (25.0-35.0) pg MCHC (31.0-37.0) g/dL RDW (11.5-15.5) % Plt Count (150-450) k/uL Neutrophils % % Lymphocytes % % Monocytes % % Eosinophils % % Basophils % % Neutrophils # (1.3-7.7) k/uL Lymphocytes # (1.0-4.8) k/uL Monocytes # (0-1.0) k/uL Eosinophils # (0-0.7) k/uL Basophils # (0-0.2) k/uL Anisocytosis PT (9.0-12.0) sec INR (<1.2) APTT (22.0-30.0) sec Sodium (137-145) mmol/L Potassium (3.5-5.1) mmol/L Chloride (98-107) mmol/L Carbon Dioxide (22-30) mmol/L Anion Gap mmol/L BUN (9-20) mg/dL Creatinine (0.66-1.25) mg/dL Est GFR (CKD-EPI)AfAm (>60 ml/min/1.73 sqM) Est GFR (CKD-EPI)NonAf (>60 ml/min/1.73 sqM) Glucose (74-99) mg/dL Calcium (8.4-10.2) mg/dL Magnesium (1.6-2.3) mg/dL Total Bilirubin (0.2-1.3) mg/dL AST (17-59) U/L ALT (21-72) U/L Alkaline Phosphatase (38-126) U/L Creatine Kinase (55-170) U/L Troponin I <0.012 (0.000-0.034) ng/mL Total Protein (6.3-8.2) g/dL Albumin (3.5-5.0) g/dL Urine Color Yellow Urine Appearance Clear (Clear) Urine pH 6.5 (5.0-8.0) Ur Specific [place] 1.020 (1.001-1.035) Urine Protein 1+ H (Negative) Urine Glucose (UA) Negative (Negative) Urine Ketones Negative (Negative) Urine Blood Negative (Negative) Urine Nitrite Negative (Negative) Urine Bilirubin Negative (Negative) Urine Urobilinogen 2.0 (<2.0) mg/dL Ur Leukocyte Esterase Negative (Negative) Urine RBC 3 (0-5) /hpf Urine WBC 1 (0-5) /hpf Ur Squamous Epith Cells <1 (0-4) /hpf Hyaline Casts 7 H (0-2) /lpf Urine Mucus Occasional H (None) /hpf Disposition Clinical Impression: Nausea & vomiting, Dizziness Disposition: HOME SELF-CARE Condition: Stable Instructions (If sedation given, give patient instructions): Acute Nausea and Vomiting (ED) Additional Instructions: Please return to the Emergency Department if symptoms worsen or any other concerns. Prescriptions: Meclizine [Antivert] 25 mg PO TID PRN #15 tab PRN Reason: Vertigo Ondansetron Odt [Zofran Odt] 4 mg PO Q8HR PRN #10 tab PRN Reason: Nausea Is patient prescribed a controlled substance at d/c from ED?: No Referrals: Rick Luke MD [Primary Care Provider] - 1-2 days Time of Disposition: 17:26
--- NOTE | 2019-06-07 16:48 | XR ---
EXAMINATION TYPE: XR chest 2V DATE OF EXAM: 06/07/2019 COMPARISON: 04/13/2019 HISTORY: Weakness TECHNIQUE: Frontal and lateral views of the chest are obtained. FINDINGS: Heart is normal. Lungs are clear of consolidation. There are no hilar masses. Thoracic aor ta is atheromatous. Bony thorax appears intact. IMPRESSION: No active cardiopulmonary disease. No change.
[2019-06-07 18:04] VITALS: BP 147/68; PULSE 77
== END 2019-06-07 18:00 | disposition home or self-care (01) ==
LOC: EC 14:50
DX: R11.2 Nausea with vomiting, unspecified (principal); R42 Dizziness and giddiness; I69.351 Hemiplegia and hemiparesis following cerebral infarction affecting right dominant side; M19.90 Unspecified osteoarthritis, unspecified site; E78.5 Hyperlipidemia, unspecified; I12.9 Hypertensive chronic kidney disease with stage 1 through stage 4 chronic kidney disease, or unspecified chronic kidney disease; N18.9 Chronic kidney disease, unspecified; N40.0 Benign prostatic hyperplasia without lower urinary tract symptoms; K21.9 Gastro-esophageal reflux disease without esophagitis; Z79.82 Long term (current) use of aspirin; Z79.899 Other long term (current) drug therapy; Z87.891 Personal history of nicotine dependence; Z87.11 Personal history of peptic ulcer disease; Z98.2 Presence of cerebrospinal fluid drainage device; Z96.651 Presence of right artificial knee joint
CPT/HCPCS: 96374; 99285; 36415; 93005; 80053; 82550; 83735; 84484; 85025; 85610; 85730; 81001; 71046; J2405

== ENCOUNTER 2019-11-24 22:27 | Inpatient (IN) | payer MEDICARE, OTHER ==
[2019-11-24] MEDS ORDERED: ACETAMINOPHEN TAB 325 MG TAB PO STA (22:54)
[2019-11-25 00:08] LABS: Anisocytosis Slight; Basophils # (A) 0.2 k/uL (0-0.2); Basophils % (A) 3 %; Eosinophils # (A) 0.2 k/uL (0-0.7); Eosinophils % (A) 3 %; HGB 9.3 gm/dL (13.0-17.5); Lymphocytes # (A) 1.5 k/uL (1.0-4.8); Lymphocytes % (A) 21 %; MCV 93.5 fL (80.0-100.0); Mean Platelet Volume 6.9; Monocytes # (A) 0.5 k/uL (0-1.0); Monocytes % (A) 7 %; Neutrophils # (A) 4.3 k/uL (1.3-7.7); Neutrophils % (A) 63 %; Platelet Count 370 k/uL (150-450); RBC 3.21 m/uL (4.30-5.90); RDW 16.6 % (11.5-15.5); WBC 6.9 k/uL (3.8-10.6)
[2019-11-25 00:44] LABS: Albumin 3.7 g/dL (3.5-5.0); C Reactive Protein 24.4 mg/L (<10.0); Calcium 9.2 mg/dL (8.4-10.2); Potassium 3.9 mmol/L (3.5-5.1); Total Bilirubin 0.3 mg/dL (0.2-1.3); Total Protein 7.1 g/dL (6.3-8.2)
--- NOTE | 2019-11-25 01:12 | CT ---
EXAMINATION TYPE: CT pelvis w con DATE OF EXAM: 11/25/2019 COMPARISON: None HISTORY: R/O [employer] R&D CT DLP: 974.20 mGycm Automated exposure control for dose reduction was used. CONTRAST: Performed with IV Contrast, patient injected with 80 mL of Isovue 300. Multiple axial sections were obtained from the level of the mid kidneys to the floor the pelvis with intravenous contrast. There is 3 cm cortical cyst posterior left kidney. There is no sign of ascites. There is no evidence of bowel obstruction. Bladder distends smoothly. Prostate is enlarged and measures 5 cm. There is no inguinal hernia. There is no evidence of a pelvic mass. There is atherosclerotic vascular calcificati on. Appendix appears normal. I see no bony destructive process. Lower lumbar spine is intact. There is minimal subcutaneous edema over the lower lumbar spine. I see no evidence of an abscess. There is no inguinal adenopathy. IMPRESSION: No evidence of any gangrene. Atherosclerotic vascular disease noted. Mild prostate enlargement. Minim al subcutaneous edema over the lumbar spine of doubtful significance.
[2019-11-25 01:56] LABS: Erythrocyte Sedimentation Rate 79 mm/hr (0-15)
--- NOTE | 2019-11-25 02:40 | US ---
EXAMINATION TYPE: US scrotum with doppler. Grayscale and color Doppler Duplex imaging performed of t he scrotum. DATE OF EXAM: 11/25/2019 COMPARISON: US, CT CLINICAL HISTORY: left scrotal mass, abscess. Left scrotal mass, abscess. Pain x 1 day. EXAM MEASUREMENTS: TESTICLES: Right Testicle: 4.8 x 2.6 x 2.3 cm Left Testicle: 4.2 x 2.2 x 2.3 cm EPIDIDYMIS HEAD: Right Epididymis: 0.8 x 1.0 x 0.9 cm Left Epididymis: 1.9 x 1.5 x 1.1 cm Doppler performed to assess for testicular vascularity; good color flow and waveforms are seen left t esticle. Arterial flow is seen right testicle. Limited venous waveform, not definitely seen. Presence of hydroceles: Yes left measures: 8.7 x 3.1 x 3.6 cm. Presence of varicoceles: None seen Bilateral testicles appear heterogeneous, right more than left. Anechoic area seen left testicle measurin.6 x 0.4 x 0.2 cm. Echogenic area seen adjacent to left epididymal head measurin.6 x 0.6 x 0.4 cm. Complex area seen superior to left epididymal head measurin.5 x 0.5 x 0.4 cm. Anechoic area seen left epididymal h ead measurin.5 x 0.4 x 0.4 cm. IMPRESSION: There was hardly any color flow Doppler signal demonstrated in the right testicle. This is suggestive of avascular mass that appears to be present in the upper pole of the right testicle. This measures almost 3 cm in length and could be an area of infarction or phlegmon.. There is a very large left-sided hydrocele. There are multiple small left epididymal cysts. No eviden ce of torsion of the left testicle. Findings of this exam were discussed with the ER physician at 2:4 5 AM.
[2019-11-25] MEDS ORDERED: AMPICILLIN-SULBACTAM 3 GM in SODIUM CHLORIDE 0.9% 100 ML IVPB ONE (03:00)
--- NOTE | 2019-11-25 03:10 | ED ---
Skin/Abscess/FB HPI - General Chief complaint: Skin/Abscess/Foreign Body Stated complaint: Open wound Time Seen by Provider: 11/24/19 22:40 Source: patient Limitations: no limitations - History of Present Illness Initial comments: The patient is a 68-year-old male with past medical history of COPD, CVA with left sided weakness who presents to the emergency department with reported wound to his left groin. 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 She states that she noticed the wound today when she was helping him with his condom cath. She denies a history of sacral wounds. The patient is minimally ambulatory and does have urinary incontinence. She noted drainage from the site and had a profound odor. The patient admits to pain to the left groin region denies any testicular pain. No penile drainage or discharge. Denies fevers or chills. No nausea or vomiting. Denies any abdominal pain. There are no alleviating, precipitating or modifying factors - Related Data Home Medications Medication Instructions Recorded Confirmed Atorvastatin [Lipitor] 80 mg PO HS 05/26/17 11/28/19 Tamsulosin HCl [Flomax] 0.4 mg PO DAILY 05/26/17 11/28/19 Sertraline [Zoloft] 25 mg PO DAILY 08/28/17 11/28/19 Aspirin EC [Ecotrin Low Dose] 81 mg PO DAILY 02/12/18 11/28/19 Calcitriol 0.25 mcg PO TUTH 10/07/18 11/28/19 Mirabegron [Myrbetriq] 50 mg PO DAILY 05/17/19 11/28/19 Previous Rx's Medication Instructions Recorded Clopidogrel [Plavix] 75 mg PO DAILY #30 tab 11/24/17 Ciprofloxacin HCl [Cipro] 750 mg PO BID #20 tab 11/28/19 Midodrine HCl [ProAmantine] 2.5 mg PO TID #9 tab 11/28/19 Naproxen 250 mg PO TID #1 tablet 11/28/19 amLODIPine [Norvasc] 5 mg PO DAILY tab 11/28/19 Allergies Allergy/AdvReac Type Severity Reaction Status Date / Time No Known Allergies Allergy Verified 11/25/19 07:24 Review of Systems ROS Statement: Those systems with pertinent positive or pertinent negative responses have been documented in the HPI. ROS Other: All systems not noted in ROS Statement are negative. Past Medical History Past Medical History: COPD, CVA/TIA, Eye Disorder, GERD/Reflux, Hyperlipidemia, Hypertension, Osteoarthritis (OA), Prostate Disorder, Renal Disease, Sleep Apnea/CPAP/BIPAP, Syncope Additional Past Medical History / Comment(s): pt is rt side dominant. hx ofMultiple TIAs, CVA 01/2017 with dysphagia-peg tube inserted and now out, has residual weakness lt arm/leg and some lt facial droop. chronic kidney disease BPH, Uti, ROSA has Cpap but does not tolerate it no longer using it, gastric ulcer, soniya eye cataracts, past hxR foot 3rd toe osteomylitis, arthritis multiple joints, past gastric ulcer, past hx shingels. , History of Any Multi-Drug Resistant Organisms: None Reported Past Surgical History: Hernia Repair, Joint Replacement Additional Past Surgical History / Comment(s): 06/01/17 intracranial angioplasty- (pt stated "he has stents') HFH, EGD with peg tube insertion since removed, R inguinal hernia repair, R total knee arthroplasty, colonoscopies with last one in 2014-normal., Past Anesthesia/Blood Transfusion Reactions: No Reported Reaction Past Psychological History: No Psychological Hx Reported Smoking Status: Former smoker Past Alcohol Use History: None Reported Past Drug Use History: None Reported - Past Family History Mother Family Medical History: CVA/TIA, Diabetes Mellitus, Hyperlipidemia, Hypertension Father Family Medical History: CVA/TIA, Hypertension General Exam Limitations: no limitations General appearance: alert, in no apparent distress Respiratory exam: Present: normal lung sounds bilaterally. Absent: respiratory distress, wheezes, rales, rhonchi, stridor Cardiovascular Exam: Present: regular rate, normal rhythm, normal heart sounds. Absent: systolic murmur, diastolic murmur, rubs, gallop, clicks GI/Abdominal exam: Present: soft, normal bowel sounds. Absent: distended, tenderness, guarding, rebound, rigid exam: Present: testicular tenderness, scrotal swelling, other (4.0x 3.0 cm scrotal abscess near the left testicle. There is 1.0 cm open central defect exuding white caceous material. surronding scrotum is indurated. Testicles appear to have normal lie without tenderness) Course Vital Signs 11/24/19 11/25/19 11/25/19 22:36 00:00 07:00 Temperature 98.5 F 98.6 F 97.7 F Pulse Rate 89 69 Pulse Rate [ 66 Pulse Oximetery ] Respiratory 18 16 16 Rate Blood Pressure 129/78 155/91 Blood Pressure 162/87 [Right Arm] O2 Sat by Pulse 98 98 97 Oximetry 11/25/19 13:30 Temperature 98.3 F Pulse Rate Pulse Rate [ 63 Pulse Oximetery ] Respiratory 16 Rate Blood Pressure Blood Pressure 166/83 [Right Arm] O2 Sat by Pulse 95 Oximetry Medical Decision Making - Medical Decision Making Upon arrival the patient was placed into room 5. A thorough history and physical exam was performed. The patient does have a draining abscess to the left side. It is exuding caseous material and is concerning for an infected cyst. I did recommend laboratory studies and a CT of the patient's abdomen to rule out Fourniers gangrene. I also recommended an ultrasound of the patient's testicles. Laboratory studies demonstrate a hemoglobin of 9.3. White blood count normal at 6.9. Creatinine is 1.4 which is at the patient's baseline. Sed rate is 79. C-reactive protein is 24.4 pelvic ultrasound demonstrates no evidence of gangrene. Mild prostate enlargement. Mild subcutaneous edema over the lumbar spine scrotal ultrasound demonstrates minimal color-flow Doppler signal on the right testicle. Suggestive of avascular mass that appears to present in the upper pole of the right testicle. Could be an area of infarction or phlegmon. Left hydrocele. I reevaluated the patient. He continues to have absolutely no pain to the right testicle. There is no skin coloration changes. No drainage or abnormal lie. I discussed these results with Dr. Welch. He requests that the patient be made nothing by mouth at midnight. I will obtain blood cultures and initiated the patient on Unasyn. I did obtain a culture of the patient's wound. It continues to drain at this time. He will be admitted to [facility]. The patient and his are in agreement with the treatment plan and he is currently awaiting a bed - Lab Data Result diagrams: 11/28/19 07:40 11/28/19 07:40 Lab Results 11/24/19 11/24/19 11/24/19 Range/Units 23:22 23:22 23:22 WBC 6.9 (3.8-10.6) k/uL RBC 3.21 L (4.30-5.90) m/uL Hgb 9.3 L (13.0-17.5) gm/dL Hct 30.0 L (39.0-53.0) % MCV 93.5 (80.0-100.0) fL MCH 29.0 (25.0-35.0) pg MCHC 31.0 (31.0-37.0) g/dL RDW 16.6 H (11.5-15.5) % Plt Count 370 (150-450) k/uL Neutrophils % 63 % Lymphocytes % 21 % Monocytes % 7 % Eosinophils % 3 % Basophils % 3 % Neutrophils # 4.3 (1.3-7.7) k/uL Lymphocytes # 1.5 (1.0-4.8) k/uL Monocytes # 0.5 (0-1.0) k/uL Eosinophils # 0.2 (0-0.7) k/uL Basophils # 0.2 (0-0.2) k/uL Hypochromasia Anisocytosis Slight ESR 79 H (0-15) mm/hr Sodium 139 (137-145) mmol/L Potassium 3.9 (3.5-5.1) mmol/L Chloride 104 (98-107) mmol/L Carbon Dioxide 28 (22-30) mmol/L Anion Gap 7 mmol/L BUN 24 H (9-20) mg/dL Creatinine 1.47 H (0.66-1.25) mg/dL Est GFR (CKD-EPI)AfAm 56 (>60 ml/min/1.73 sqM) Est GFR (CKD-EPI)NonAf 48 (>60 ml/min/1.73 sqM) Glucose 113 H (74-99) mg/dL Plasma Lactic Acid Del 1.0 (0.7-2.0) mmol/L Calcium 9.2 (8.4-10.2) mg/dL Total Bilirubin 0.3 (0.2-1.3) mg/dL AST 20 (17-59) U/L ALT 19 (4-49) U/L Alkaline Phosphatase 125 (38-126) U/L C-Reactive Protein 24.4 H (<10.0) mg/L Total Protein 7.1 (6.3-8.2) g/dL Albumin 3.7 (3.5-5.0) g/dL 11/25/19 11/26/19 11/26/19 Range/Units 19:43 06:28 06:28 WBC 5.9 (3.8-10.6) k/uL RBC 3.05 L (4.30-5.90) m/uL Hgb 8.9 L (13.0-17.5) gm/dL Hct 28.7 L (39.0-53.0) % MCV 94.2 (80.0-100.0) fL MCH 29.2 (25.0-35.0) pg MCHC 31.0 (31.0-37.0) g/dL RDW 16.8 H (11.5-15.5) % Plt Count 337 (150-450) k/uL Neutrophils % 60 % Lymphocytes % 25 % Monocytes % 7 % Eosinophils % 3 % Basophils % 2 % Neutrophils # 3.6 (1.3-7.7) k/uL Lymphocytes # 1.5 (1.0-4.8) k/uL Monocytes # 0.4 (0-1.0) k/uL Eosinophils # 0.2 (0-0.7) k/uL Basophils # 0.1 (0-0.2) k/uL Hypochromasia Slight Anisocytosis Slight ESR (0-15) mm/hr Sodium 139 (137-145) mmol/L Potassium 3.9 (3.5-5.1) mmol/L Chloride 106 (98-107) mmol/L Carbon Dioxide 25 (22-30) mmol/L Anion Gap 8 mmol/L BUN 15 (9-20) mg/dL Creatinine 1.10 1.02 (0.66-1.25) mg/dL Est GFR (CKD-EPI)AfAm 79 87 (>60 ml/min/1.73 sqM) Est GFR (CKD-EPI)NonAf 68 75 (>60 ml/min/1.73 sqM) Glucose 85 (74-99) mg/dL Plasma Lactic Acid Del (0.7-2.0) mmol/L Calcium 8.7 (8.4-10.2) mg/dL Total Bilirubin (0.2-1.3) mg/dL AST (17-59) U/L ALT (4-49) U/L Alkaline Phosphatase (38-126) U/L C-Reactive Protein (<10.0) mg/L Total Protein (6.3-8.2) g/dL Albumin (3.5-5.0) g/dL Disposition Clinical Impression: Abscess, scrotum Disposition: ADMITTED IP TO THIS [facility] Condition: Stable Is patient prescribed a controlled substance at d/c from ED?: No Decision to Admit Reason: Admit from EC Decision Date: 11/25/19 Decision Time: 03:11
[2019-11-25] MEDS ORDERED: NALOXONE 0.4 MG/ML 1 ML VIAL IV PRN (03:11)
[2019-11-25] MEDS ORDERED: ACETAMINOPHEN TAB 325 MG TAB PO PRN (03:11)
[2019-11-25] MEDS: SODIUM CHLORIDE 0.9% 1,000 ML IV SCH ×2 (03:25→18:13)
[2019-11-25] MEDS: amLODIPine 5 MG TAB PO SCH (08:28)
[2019-11-25] MEDS ORDERED: CLOPIDOGREL 75 MG TAB PO SCH (09:00)
[2019-11-25] MEDS ORDERED: traMADol 50 MG TAB PO PRN (12:05)
--- NOTE | 2019-11-25 13:18 | P.HPIM ---
History of Present Illness Patient is a pleasant 68-year-old male was brought in because of the swelling redness in the left groin area and scrotal area found to have possible scrotal abscess. Patient doesn't have any fevers. Patient does have CVA with some mild residual left-sided weakness. Patient uses condom catheterization due to incontinence. Patient denied dysuria denied any cough. Patient is found to have a phone order and drainage in the left scrotal area, ultrasound did show possible abscess or mass in the right testicular area or 3 cm length Review of Systems REVIEW OF SYSTEMS: CONSTITUTIONAL: No fever, no malaise, no fatigue. HEENT: No recent visual problems or hearing problems. Denied any sore throat. CARDIOVASCULAR: No chest pain, orthopnea, PND, no palpitations, no syncope. PULMONARY: No shortness of breath, no cough, no hemoptysis. GASTROINTESTINAL: No diarrhea, no nausea, no vomiting, no abdominal pain. NEUROLOGICAL: No headaches, no weakness, no numbness. HEMATOLOGICAL: Denies any bleeding or petechiae. GENITOURINARY: Denies any burning micturition, frequency, or urgency. MUSCULOSKELETAL/RHEUMATOLOGICAL: Denies any joint pain, swelling, or any muscle pain. ENDOCRINE: Denies any polyuria or polydipsia. The rest of the 14-point review of systems is negative. Past Medical History Past Medical History: COPD, CVA/TIA, Eye Disorder, GERD/Reflux, Hyperlipidemia, Hypertension, Osteoarthritis (OA), Prostate Disorder, Renal Disease, Sleep Ap jasson/CPAP/BIPAP, Syncope Additional Past Medical History / Comment(s): pt is rt side dominant. hx ofMultiple TIAs, CVA 01/2017 with dysphagia-peg tube inserted and now out, has residual weakness lt arm/leg and some lt facial droop. chronic kidney disease BPH, Uti, ROSA has Cpap but does not tolerate it no longer using it, gastric ulcer, soniya eye cataracts, past hxR foot 3rd toe osteomylitis, arthritis multiple joints, past gastric ulcer, past hx shingels. , History of Any Multi-Drug Resistant Organisms: None Reported Past Surgical History: Hernia Repair, Joint Replacement Additional Past Surgical History / Comment(s): 06/01/17 intracranial angioplasty- (pt stated "he has stents') HFH, EGD with peg tube insertion since removed, R inguinal hernia repair, R total knee arthroplasty, colonoscopies with last one in 2015-normal., Past Anesthesia/Blood Transfusion Reactions: No Reported Reaction Past Psychological History: No Psychological Hx Reported Additional Psychological History / Comment(s): Pt lives with his in 2 story home that has 4 front porch steps. Pt stays on first level. No pets. No home care services. Pt uses a cane/walker to ambulate. Pt no longer drives, his spouse drives him to appts. Smoking Status: Never smoker Past Alcohol Use History: None Reported Additional Past Alcohol Use History / Comment(s): started smoking 1963. quit 2015 smoked 1 ppd, no alcohol since 2015 Past Drug Use History: None Reported - Past Family History Mother Family Medical History: CVA/TIA, Diabetes Mellitus, Hyperlipidemia, Hypertension Father Family Medical History: CVA/TIA, Hypertension Medications and Allergies Home Medications Medication Instructions Recorded Confirmed Type Atorvastatin [Lipitor] 80 mg PO HS 05/26/17 11/25/19 History Tamsulosin HCl [Flomax] 0.4 mg PO DAILY 05/26/17 11/25/19 History Sertraline [Zoloft] 25 mg PO DAILY 08/28/17 11/25/19 History Clopidogrel [Plavix] 75 mg PO DAILY #30 tab 11/24/17 11/25/19 Rx Aspirin EC [Ecotrin Low Dose] 81 mg PO DAILY 02/12/18 11/25/19 History Calcitriol 0.25 mcg PO TUTH 10/07/18 11/25/19 History Midodrine HCl [ProAmantine] 2.5 mg PO TID 05/17/19 11/25/19 History Mirabegron [Myrbetriq] 50 mg PO DAILY 05/17/19 11/25/19 History amLODIPine [Norvasc] 2.5 mg PO DAILY 11/25/19 11/25/19 History Allergies Allergy/AdvReac Type Severity Reaction Status Date / Time No Known Allergies Allergy Verified 11/25/19 07:24 Physical Exam Vitals: Vital Signs Temp Pulse Pulse Resp BP BP Pulse Ox 11/25/19 07:00 97.7 F 66 16 162/87 97 11/25/19 00:00 98.6 F 69 16 155/91 98 11/24/19 22:36 98.5 F 89 18 129/78 98 Intake and Output 11/24/19 11/25/19 11/25/19 22:59 06:59 14:59 Other: Weight 87.997 kg 87.997 kg PHYSICAL EXAMINATION: GENERAL: The patient is alert and oriented x3, not in any acute distress. Well developed, well nourished. HEENT: Pupils are round and equally reacting to light. EOMI. No scleral icterus. No conjunctival pallor. Normocephalic, atraumatic. No pharyngeal erythema. No thyromegaly. CARDIOVASCULAR: S1 and S2 present. No murmurs, rubs, or gallops. PULMONARY: Chest is clear to auscultation, no wheezing or crackles. ABDOMEN: Soft, nontender, nondistended, normoactive bowel sounds. No palpable organomegaly. MUSCULOSKELETAL: No joint swelling or deformity. EXTREMITIES: No cyanosis, clubbing, or pedal edema. NEUROLOGICAL: Gross neurological examination did not reveal any focal deficits. SKIN: There is a significant scrotal swelling with the follow discharge. Results CBC & Chem 7: 11/24/19 23:22 11/24/19 23:22 Labs: Abnormal Lab Results - Last 24 Hours (Table) 11/24/19 11/24/19 Range/Units 23:22 23:22 RBC 3.21 L (4.30-5.90) m/uL Hgb 9.3 L (13.0-17.5) gm/dL Hct 30.0 L (39.0-53.0) % RDW 16.6 H (11.5-15.5) % ESR 79 H (0-15) mm/hr BUN 24 H (9-20) mg/dL Creatinine 1.47 H (0.66-1.25) mg/dL Glucose 113 H (74-99) mg/dL C-Reactive Protein 24.4 H (<10.0) mg/L Microbiology - Last 24 Hours (Table) 11/24/19 22:53 Wound Culture - Preliminary Groin Thrombosis Risk Factor Assmnt - Choose All That Apply Any of the Below Risk Factors Present?: No Other Risk Factors: Yes Each Risk Factor Represents 2 Points: Age 61-74 years Thrombosis Risk Factor Assessment Total Risk Factor Score: 2 Thrombosis Risk Factor Assessment Level: Low Risk Assessment and Plan Plan: -Possible abscess in the scrotum: Patient was started on Unasyn IV fluids urology and infectious disease was consulted. -COPD without any acute exacerbation patient will be resumed on his home medications -Chronic kidney disease stage II to 3 baseline creatinine around 1.2-1.3 presently 1.4 -Benign prostatic atrophy -Sleep apnea -CVA and TIA with the residual weakness mild in the left arm and left leg. Patient was on aspirin and Plavix Plavix is being held because of possible intervention for his scrotal abscess -Hyperlipidemia -Hypertension DVT prophylaxis with subcutaneous heparin
[2019-11-25] MEDS: AMPICILLIN-SULBACTAM 3 GM in SODIUM CHLORIDE 0.9% 100 ML IVPB SCH ×2 (13:28→21:44)
[2019-11-25] MEDS: MIDODRINE 5 MG TAB PO SCH ×2 (14:07→18:34)
--- NOTE | 2019-11-25 16:07 | P.GSCN ---
History of Present Illness Consult date: 11/25/19 Reason for Consult: Left scrotal abscess History of present illness: Mr Sesay is a 68-year-old male presented to the hospital, left-sided scrotal abscess. It was noted by his caregiver that he had edema along the left groin, and drainage starting yesterday. Denies any fevers or chills. Of note he is incontinent of urine uses a condom catheter. Denies any gross hematuria, or dysuria. He underwent a CT of the pelvis which showed no evidence of Felisa's gangrene. He also underwent a scrotal ultrasound which demonstrated normal left testicle, but along the right testicle there was an area of diminished venous outflow within the upper portion of the testicle. Of note the patient complains of no testicular pain on the right side and his exam is completely benign. Review of Systems - Constitutional Denies chills, Denies fever - Cardiovascular Denies chest pain, Denies dyspnea on exertion - Respiratory Denies cough, Denies dyspnea - Gastrointestinal Denies abdominal pain, Denies nausea, Denies vomiting - Genitourinary Reports incontinence, Denies dysuria, Denies kidney stones, Denies testicular pain - Neurological Denies headaches, Denies weakness - Psychiatric Denies anxiety, Denies depression Past Medical History Past Medical History: COPD, CVA/TIA, Eye Disorder, GERD/Reflux, Hyperlipidemia, Hypertension, Osteoarthritis (OA), Prostate Disorder, Renal Disease, Sleep Apnea/CPAP/BIPAP, Syncope Additional Past Medical History / Comment(s): pt is rt side dominant. hx ofMultiple TIAs, CVA 01/2017 with dysphagia-peg tube inserted and now out, has residual weakness lt arm/leg and some lt facial droop. chronic kidney disease BPH, Uti, ROSA has Cpap but does not tolerate it no longer using it, gastric ulcer, soniya eye cataracts, past hxR foot 3rd toe osteomylitis, arthritis multiple joints, past gastric ulcer, past hx shingels. , History of Any Multi-Drug Resistant Organisms: None Reported Past Surgical History: Hernia Repair, Joint Replacement Additional Past Surgical History / Comment(s): 06/01/17 intracranial angioplasty- (pt stated "he has stents') HFH, EGD with peg tube insertion since removed, R inguinal hernia repair, R total knee arthroplasty, colonoscopies with last one in 2015-normal., Past Anesthesia/Blood Transfusion Reactions: No Reported Reaction Past Psychological History: No Psychological Hx Reported Additional Psychological History / Comment(s): Pt lives with his in 2 story home that has 4 front porch steps. Pt stays on first level. No pets. No home care services. Pt uses a cane/walker to ambulate. Pt no longer drives, his spouse drives him to appts. Smoking Status: Never smoker Past Alcohol Use History: None Reported Additional Past Alcohol Use History / Comment(s): started smoking 1963. quit 2015 smoked 1 ppd, no alcohol since 2015 Past Drug Use History: None Reported - Past Family History Mother Family Medical History: CVA/TIA, Diabetes Mellitus, Hyperlipidemia, Hypertension Father Family Medical History: CVA/TIA, Hypertension Medications and Allergies Home Medications Medication Instructions Recorded Confirmed Type Atorvastatin [Lipitor] 80 mg PO HS 05/26/17 11/25/19 History Tamsulosin HCl [Flomax] 0.4 mg PO DAILY 05/26/17 11/25/19 History Sertraline [Zoloft] 25 mg PO DAILY 08/28/17 11/25/19 History Clopidogrel [Plavix] 75 mg PO DAILY #30 tab 11/24/17 11/25/19 Rx Aspirin EC [Ecotrin Low Dose] 81 mg PO DAILY 02/12/18 11/25/19 History Calcitriol 0.25 mcg PO TUTH 10/07/18 11/25/19 History Midodrine HCl [ProAmantine] 2.5 mg PO TID 05/17/19 11/25/19 History Mirabegron [Myrbetriq] 50 mg PO DAILY 05/17/19 11/25/19 History amLODIPine [Norvasc] 2.5 mg PO DAILY 11/25/19 11/25/19 History Allergies Allergy/AdvReac Type Severity Reaction Status Date / Time No Known Allergies Allergy Verified 11/25/19 07:24 Surgical - Exam Vital Signs Temp Pulse Resp BP Pulse Ox 98.5 F 89 18 129/78 98 11/24/19 22:36 11/24/19 22:36 11/24/19 22:36 11/24/19 22:36 11/24/19 22:36 - General well developed, well nourished, no distress - Respiratory normal expansion, normal respiratory effort - Abdomen Abdomen: soft, non tender - Genitourinary Bilateral descended testes, nontender to palpation. Normal lay on both sides. Large left-sided varicocele. Along the left lateral aspect of the scrotum there is an indurated erythematous area, and opene abscess cavity, purulent drainage noted normal penis with no external lesions - Psychiatric oriented to time, oriented to person, oriented to place, speech is normal Results - Labs 11/24/19 23:22 11/24/19 23:22 Abnormal Lab Results - Last 24 Hours (Table) 11/24/19 11/24/19 Range/Units 23:22 23:22 RBC 3.21 L (4.30-5.90) m/uL Hgb 9.3 L (13.0-17.5) gm/dL Hct 30.0 L (39.0-53.0) % RDW 16.6 H (11.5-15.5) % ESR 79 H (0-15) mm/hr BUN 24 H (9-20) mg/dL Creatinine 1.47 H (0.66-1.25) mg/dL Glucose 113 H (74-99) mg/dL C-Reactive Protein 24.4 H (<10.0) mg/L Microbiology - Last 24 Hours (Table) 11/24/19 22:53 Wound Culture - Preliminary Groin Diabetes panel 11/24/19 Range/Units 23:22 Sodium 139 (137-145) mmol/L Potassium 3.9 (3.5-5.1) mmol/L Chloride 104 (98-107) mmol/L Carbon Dioxide 28 (22-30) mmol/L BUN 24 H (9-20) mg/dL Creatinine 1.47 H (0.66-1.25) mg/dL Glucose 113 H (74-99) mg/dL Calcium 9.2 (8.4-10.2) mg/dL AST 20 (17-59) U/L ALT 19 (4-49) U/L Alkaline Phosphatase 125 (38-126) U/L Total Protein 7.1 (6.3-8.2) g/dL Albumin 3.7 (3.5-5.0) g/dL Calcium panel 11/24/19 Range/Units 23:22 Calcium 9.2 (8.4-10.2) mg/dL Albumin 3.7 (3.5-5.0) g/dL Pituitary panel 11/24/19 Range/Units 23:22 Sodium 139 (137-145) mmol/L Potassium 3.9 (3.5-5.1) mmol/L Chloride 104 (98-107) mmol/L Carbon Dioxide 28 (22-30) mmol/L BUN 24 H (9-20) mg/dL Creatinine 1.47 H (0.66-1.25) mg/dL Glucose 113 H (74-99) mg/dL Calcium 9.2 (8.4-10.2) mg/dL Adrenal panel 11/24/19 Range/Units 23:22 Sodium 139 (137-145) mmol/L Potassium 3.9 (3.5-5.1) mmol/L Chloride 104 (98-107) mmol/L Carbon Dioxide 28 (22-30) mmol/L BUN 24 H (9-20) mg/dL Creatinine 1.47 H (0.66-1.25) mg/dL Glucose 113 H (74-99) mg/dL Calcium 9.2 (8.4-10.2) mg/dL Total Bilirubin 0.3 (0.2-1.3) mg/dL AST 20 (17-59) U/L ALT 19 (4-49) U/L Alkaline Phosphatase 125 (38-126) U/L Total Protein 7.1 (6.3-8.2) g/dL Albumin 3.7 (3.5-5.0) g/dL Assessment and Plan Assessment: 68-year-old male presents with left-sided scrotal abscess. He underwent a scrotal ultrasound demonstrated there is a cystic area along the upper portion of the right testicle with diminished blood flow. Per radiology report could be an old infarct versus a phlegmon. Of note the patient exam is completely benign. He denies any testicular pain on the right side Plan: -We'll do a bedside I&D, for the scrotal abscess -Continue antibiotics and follow up on cultures -The concerning area on the scrotal ultrasound is unlikely to be testicular torsion. Given the patient benign exam, lack of symptoms and patient age. At this time we'll continue to observe. I discussed this with the patient and his caregiver. Discussed that if a scrotal exploration is performed there is a high risk of bleeding given his plavix and a high potential of doing an orchiectomy. At this time we'll continue to observe and we'll repeat a scrotal ultrasound to assess for any changes
--- NOTE | 2019-11-25 16:10 | P.PCN ---
Date of Procedure: 11/25/19 Preoperative Diagnosis: Scrotal abscess Postoperative Diagnosis: Same Procedure(s) Performed: Incision and drainage of scrotal abscess Implants: none Anesthesia: none Surgeon: Sukhwinder Welch Estimated Blood Loss (ml): 1 Pathology: other (Wound culture) Condition: stable Disposition: floor Indications for Procedure: 68-year-old male presents with left-sided scrotal abscess. Operative Findings: 5 mL of purulent drainage Description of Procedure: The abscess cavity was identified and using hemostat the abscess cavity opening was extended to allow for adequate packing. At this time wound culture was obtained. All the loculation were broken up using hemostat. The total cavity measured 2X2 cm. The wound was packed with gauze. Patient tolerated the procedure well
[2019-11-25] MEDS ORDERED: VANCOMYCIN IV PER PHARMACY 1 EACH MISC MISCELLANE PRN (17:19)
[2019-11-25] MEDS ORDERED: VANCOMYCIN 1,750 MG in SODIUM CHLORIDE 0.9% 500 ML 500 ML IVPB ONE (17:45)
[2019-11-25] MEDS: HEPARIN SODIUM,PORCINE 5,000 UNIT/ML 1 ML VIAL SQ SCH ×2 (18:09→21:44)
[2019-11-25] MEDS: ATORVASTATIN 80 MG TAB PO SCH (21:43)
[2019-11-26] MEDS: AMPICILLIN-SULBACTAM 3 GM in SODIUM CHLORIDE 0.9% 100 ML IVPB SCH ×5 (02:00→23:00)
[2019-11-26] MEDS: VANCOMYCIN 1,500 MG in SODIUM CHLORIDE 0.9% 250 ML IVPB SCH ×2 (07:02→18:24)
--- NOTE | 2019-11-26 07:20 | CONS ---
CONSULTATION DATE OF SERVICE: 11/25/2019 REASON FOR CONSULTATION: Left groin and scrotal abscess. HISTORY OF PRESENT ILLNESS: The patient is a 68-year-old male presenting to the ER at [facility] with chief complaints of wound to the left groin area. Apparently the patient was noticed to have the wound in the groin by the caregiver when they were helping him with his condom cath. The patient noticed to have some profound odor and drainage and the patient had been complaining of some pain to the left groin area; however, no clear history of any fever or any chills. No fever has been recorded during this admission and his white count has been normal. Further workup in the ER did include a pelvic CT which shows no evidence of any gangrene and surrounding vascular disease noted; mild prostate enlargement. The patient also had ultrasound of the scrotum, which shows avascular mass that appears to be present in the upper pole of the right testicle, and very large left-side hydrocele. The patient is status post drainage of scrotal abscess by Urology. Culture has been obtained. The patient was started on Unasyn. Infectious Disease was consulted for further recommendations regarding antibiotic therapy. REVIEW OF SYSTEMS: Positive points have been mentioned in HPI. Rest of the systems negative. PAST MEDICAL HISTORY: COPD, CVA, TIA, gastroesophageal reflux disease, hypertension, hyperlipidemia, osteoarthritis, syncope, obstructive sleep apnea. PAST SURGICAL HISTORY: Hernia repair, right total knee arthroplasty, colonoscopy. SOCIAL HISTORY: No history of smoking, quit smoking 2016 and quit drinking in 2016 as well. FAMILY HISTORY: Both parents with history of CVA and TIA. ALLERGIES: No known drug allergies. MEDICATIONS: Medications include the patient is currently on Tylenol, Norvasc Unasyn 3 g q.6 hours, aspirin, Lipitor, heparin, midodrine, morphine sulfate, Narcan, Zoloft, Flomax, Ultram, and vancomycin. PHYSICAL EXAMINATION: Blood pressure 151/79 with a pulse of 84, temperature 97.9. He is 98% on room air. General description is elderly male lying in bed in no distress. No tachypnea or accessory muscle of respiration use. HEENT: Examination shows pallor, no scleral icterus. Oral mucous membranes dry. No pharyngeal erythema or thrush. NECK; Trachea central. There is no thyromegaly. LUNGS: Unlabored breathing, clear to auscultation anteriorly. No wheeze or crackles. HEART: S1, S2. Regular rate and rhythm. No added sounds. ABDOMEN: Soft, no tenderness. No guarding or rigidity. Examination of the right scrotal area: He did have a wound which is currently packed to the left groin. There was no significant swelling of the testicle or any necrotic change noticed. EXTREMITIES: No edema feet. NEUROLOGICAL: Patient is awake, alert, oriented x3. Mood and affect normal. LABS: Hemoglobin 9.3, white count 6.9. Sed rate is 79. BUN of 24, creatinine 1.47. CRP 24.4. Cultures currently pending. DIAGNOSTIC IMPRESSION AND PLAN: Patient with left groin/scrotal abscess in this patient who is status post drainage of the same likely need to cover the gram-positive skin jud, underlying gram-negative infection not entirely excluded in view of the close to the urinary tract. PLAN: 1. Unasyn 3 grams q.6 hours to continue. 2. We will add vancomycin pharmacy to dose target of 15, while waiting for the culture to finalize. 3. We will follow on his clinical condition and culture to further adjust medication if needed. Thank you for this consultation. Will follow this patient along with you. MMODL / IJN: [id number] /
[2019-11-26] MEDS: SODIUM CHLORIDE 0.9% 1,000 ML IV SCH ×2 (07:45→09:36)
[2019-11-26 07:49] LABS: Anisocytosis Slight; Basophils # (A) 0.1 k/uL (0-0.2); Basophils % (A) 2 %; Eosinophils # (A) 0.2 k/uL (0-0.7); Eosinophils % (A) 3 %; HCT 28.7 % (39.0-53.0); HGB 8.9 gm/dL (13.0-17.5); Hypochromasia Slight; Lymphocytes # (A) 1.5 k/uL (1.0-4.8); Lymphocytes % (A) 25 %; MCH 29.2 pg (25.0-35.0); MCV 94.2 fL (80.0-100.0); Monocytes # (A) 0.4 k/uL (0-1.0); Monocytes % (A) 7 %; Neutrophils # (A) 3.6 k/uL (1.3-7.7); Neutrophils % (A) 60 %; Platelet Count 337 k/uL (150-450); RBC 3.05 m/uL (4.30-5.90); RDW 16.8 % (11.5-15.5); WBC 5.9 k/uL (3.8-10.6)
[2019-11-26 08:03] LABS: Calcium 8.7 mg/dL (8.4-10.2); Potassium 3.9 mmol/L (3.5-5.1)
[2019-11-26] MEDS: SERTRALINE 25 MG TAB PO SCH (09:29)
[2019-11-26] MEDS: amLODIPine 5 MG TAB PO SCH (09:29)
[2019-11-26] MEDS: TAMSULOSIN 0.4 MG CAP.ER.24H PO SCH (09:29)
[2019-11-26] MEDS: ASPIRIN 81 MG PO SCH (09:29)
[2019-11-26] MEDS: MIDODRINE 5 MG TAB PO SCH ×3 (09:29→17:39)
[2019-11-26] MEDS: HEPARIN SODIUM,PORCINE 5,000 UNIT/ML 1 ML VIAL SQ SCH ×3 (09:29→23:00)
[2019-11-26] MEDS: INSULIN ASPART (NovoLOG) 100 UNIT/ML VIAL SQ SCH ×3 (12:18→20:30)
[2019-11-26 12:34] LABS: Glucose,Whole Blood 121 mg/dL (75-99)
[2019-11-26] MEDS: MORPHINE SULFATE 4 MG/ML SYRINGE IVP PRN (15:39)
[2019-11-26 17:44] LABS: Glucose,Whole Blood 121 mg/dL (75-99)
--- NOTE | 2019-11-26 18:07 | P.PN ---
Subjective Progress Note Date: 11/26/19 Principal diagnosis: Scrotal abscess No acute overnight event, denies any scrotal pain. no purulent drainage appreciated Objective - Vital Signs Vital signs: Vital Signs Temp 98.4 F 11/26/19 17:30 Pulse 75 11/26/19 17:30 Resp 16 11/26/19 17:30 BP 150/84 11/26/19 17:30 Pulse Ox 98 11/26/19 17:30 Intake & Output 11/25/19 11/26/19 11/26/19 18:59 06:59 18:59 Intake Total 1300 725 Output Total 200 900 Balance -200 400 725 Weight 87.997 kg Intake: Intake, IV Titration 1300 725 Amount Ampicillin-Sulbactam 3 gm 200 100 In Sodium Chloride 0.9% 100 ml @ 200 mls/hr IVPB Q6HR [facility] Rx#:[id number] Sodium Chloride 0.9% 1, 600 375 000 ml @ 75 mls/hr IV . [id number] [facility] Rx#:[id number] Vancomycin 1,500 mg In 250 Sodium Chloride 0.9% 250 ml @ 125 mls/hr IVPB Q12H [facility] Rx#:[id number] Vancomycin 1,750 mg In 500 Sodium Chloride 0.9% 500 ml 500 ml @ 167 mls/hr IVPB ONCE ONE Rx#: [id number] Output: Urine 200 900 Other: Voiding Method Diaper Incontinent - Constitutional General appearance: Present: no acute distress - Gastrointestinal General gastrointestinal: Present: soft. Absent: rigid - Genitourinary Genitourinary Comment(s): bilateral descended testes non-tender I&D site with minimal erythema, no purulent drainage appreciated, no inudurated areas or fluctance appreciated - Labs CBC & Chem 7: 11/26/19 06:28 11/26/19 06:28 Labs: Abnormal Lab Results - Last 24 Hours (Table) 11/26/19 11/26/19 11/26/19 Range/Units 06:28 12:31 17:30 RBC 3.05 L (4.30-5.90) m/uL Hgb 8.9 L (13.0-17.5) gm/dL Hct 28.7 L (39.0-53.0) % RDW 16.8 H (11.5-15.5) % POC Glucose (mg/dL) 121 H 121 H (75-99) mg/dL Microbiology - Last 24 Hours (Table) 11/24/19 22:53 Gram Stain - Final Groin Not Reportable Wound Culture - Final 11/25/19 13:00 Gram Stain - Preliminary Groin Wound Culture - Preliminary Gram Neg Bacilli 11/25/19 03:20 Blood Culture - Preliminary Blood No Growth after 24 hours 11/25/19 13:00 Anaerobic Culture - Preliminary Groin Assessment and Plan Assessment: 68-year-old male presents with left-sided scrotal abscess. He underwent a scrotal ultrasound demonstrated there is a cystic area along the upper portion of the right testicle with diminished blood flow. Per radiology report could be an old infarct versus a phlegmon. Of note the patient exam is completely b enign. He denies any testicular pain on the right side.S/P bedside I&D. still not having any testicular pain Plan: -Continue antibiotics and follow up on cultures -BID dressing change. Patient unable to perform dressing change, might benefit from going to [facility] while his wound is healing -Will eventually need a f/u scortal U/S to assess for changes in right testicle -Ok to resume plavix from urology standpoint
[2019-11-26 20:26] LABS: Glucose,Whole Blood 165 mg/dL (75-99)
[2019-11-26] MEDS: ATORVASTATIN 80 MG TAB PO SCH (20:30)
--- NOTE | 2019-11-26 22:12 | PN ---
PROGRESS NOTE DATE OF SERVICE: 11/26/2019 REASON FOR FOLLOWUP: Left scrotal abscess. INTERVAL HISTORY: The patient is currently afebrile, has been breathing comfortably. Denies having any chest pain or any cough. No nausea, no vomiting. No abdominal pain or pain to the scrotal area. PHYSICAL EXAMINATION: Blood pressure 150/84 with a pulse of 75, temperature 98.1. He is 98% on room air. General description is an elderly male lying in bed in no distress. RESPIRATORY SYSTEM: Unlabored breathing. Clear to auscultation anteriorly. HEART: S1, S2. Regular rate and rhythm. ABDOMEN: Soft. No tenderness. Left scrotal wound is currently open. No purulent drainage was noticed. LABS: Hemoglobin is 8.9, white count 5.9, BUN of 15, creatinine 1.02. The groin wound culture is showing Gram-negative bacilli. DIAGNOSTIC IMPRESSION AND PLAN: Patient with left groin abscess, status post drainage. Cultures are now showing Gram- negative bacilli. Patient to continue with Unasyn. Vancomycin will be discontinued. Monitor clinical course closely. Antibiotic to be adjusted on the basis of the culture report. at the bedside. Questions were answered. MMODL / IJN: [id number] /
--- NOTE | 2019-11-26 23:04 | P.PN ---
Progress Note - Text Progress Note Date: 11/26/19 Presenting complaint: Left scrotal pain Interval history: This is a 68-year-old patient of Dr. chacko. Extensive medical history. Patient does wear a condom catheter. Admitted with left scrotal abscess status post I&D.. Today- Still having some pain. Did tolerate some diet. No fever no chills. Review of systems: Was done for constitutional, cardiovascular, GI, pulmonary. relevant finding as above On examination: VITAL SIGNS: 98.1, 77, 20, 133/68, 85% on room air GENERAL APPEARANCE: Laying in bed, awake HEENT: Normal external appearance of nose and ear. Oral cavity normal EYES: Pupils equal. Conjunctiva normal. NECK: JVD not raised. Mass not palpable. RESPIRATORY: Respiratory effort normal. Lungs decreased breath sounds. CARDIOVASCULAR: First and second sounds normal. No edema. ABDOMEN: Soft. Liver and spleen not palpable. No tenderness. No mass palpable, left scrotal bit swollen. PSYCHIATRY: Alert and oriented x3. Mood and affect normal. NEUROLOGICAL: Left-sided weakness power 3/5 INVESTIGATIONS, reviewed in the clinical context: White count 5.9 hemoglobin 8.9 potassium 3.9 creatinine 1.0 to Wound culture gram-negative bacilli Assessment: -Left scrotal abscess, status post I&D with cultures growing gram-negative bacilli -GERD -Hyperlipidemia -Essential hypertension -Primary osteoarthritis -Left hemiparesis from a prior stroke -Chronic kidney disease -BPH -Obstructive sleep apnea does not use a CPAP -Chronic gait dysfunction uses a cane/walker -Stents in the brain Plan: Await culture results. In the meantime continue with IV Unasyn. Other medications to continue. Care was discussed with the patient.
[2019-11-27] MEDS: SODIUM CHLORIDE 0.9% 1,000 ML IV SCH ×3 (05:15→20:57)
[2019-11-27] MEDS: AMPICILLIN-SULBACTAM 3 GM in SODIUM CHLORIDE 0.9% 100 ML IVPB SCH ×3 (05:15→17:44)
[2019-11-27 07:08] LABS: Glucose,Whole Blood 101 mg/dL (75-99)
[2019-11-27] MEDS: INSULIN ASPART (NovoLOG) 100 UNIT/ML VIAL SQ SCH ×4 (07:41→20:52)
[2019-11-27] MEDS: MIDODRINE 5 MG TAB PO SCH ×3 (07:43→17:40)
[2019-11-27] MEDS: SERTRALINE 25 MG TAB PO SCH (08:45)
[2019-11-27] MEDS: ASPIRIN 81 MG PO SCH (08:45)
[2019-11-27] MEDS: TAMSULOSIN 0.4 MG CAP.ER.24H PO SCH (08:45)
[2019-11-27] MEDS: HEPARIN SODIUM,PORCINE 5,000 UNIT/ML 1 ML VIAL SQ SCH ×2 (08:45→17:43)
[2019-11-27] MEDS: amLODIPine 5 MG TAB PO SCH (08:45)
[2019-11-27 12:20] VITALS: RESP 16
[2019-11-27 12:43] LABS: Glucose,Whole Blood 118 mg/dL (75-99)
[2019-11-27 16:58] LABS: Glucose,Whole Blood 95 mg/dL (75-99)
[2019-11-27 19:53] LABS: Glucose,Whole Blood 145 mg/dL (75-99)
[2019-11-27] MEDS: ATORVASTATIN 80 MG TAB PO SCH (20:52)
--- NOTE | 2019-11-27 21:45 | P.PN ---
Progress Note - Text Progress Note Date: 11/27/19 Presenting complaint: Left scrotal pain Interval history: This is a 68-year-old patient of Dr. chacko. Extensive medical history. Patient does wear a condom catheter. Admitted with left scrotal abscess status post I&D.. Today- feeling better. Sitting upon a chair. Did tolerate some diet. Review of systems: Was done for constitutional, cardiovascular, GI, pulmonary. relevant finding as above Active Medications Acetaminophen (Tylenol Tab) 650 mg PO Q6HR PRN PRN Reason: Mild Pain or Fever > 100.5 Amlodipine Besylate (Norvasc) 5 mg PO DAILY [facility] Last Admin: 11/27/19 08:45 Dose: 5 mg Documented by: Aspirin (Aspirin) 81 mg PO DAILY [facility] Last Admin: 11/27/19 08:45 Dose: 81 mg Documented by: Atorvastatin Calcium (Lipitor) 80 mg PO HS [facility] Last Admin: 11/27/19 20:52 Dose: 80 mg Documented by: Heparin Sodium (Porcine) (Heparin) 5,000 unit SQ Q8HR [facility] Last Admin: 11/27/19 17:43 Dose: 5,000 unit Documented by: Sodium Chloride (Saline 0.9%) 1,000 mls @ 75 mls/hr IV .[id number] [facility] Last Admin: 11/27/19 20:57 Dose: 75 mls/hr Documented by: Ampicillin Sodium/Sulbactam (Sodium 3 gm/ Sodium Chloride) 100 mls @ 200 mls/hr IVPB Q6HR [facility] Last Admin: 11/27/19 17:44 Dose: 200 mls/hr Documented by: Insulin Aspart (Novolog) 0 unit SQ ACHS [facility]; Protocol Last Admin: 11/27/19 20:52 Dose: 1 unit Documented by: Midodrine (Proamatine) 2.5 mg PO AC-TID [facility] Last Admin: 11/27/19 17:40 Dose: Not Given Documented by: Morphine Sulfate (Morphine Sulfate (Inj)) 4 mg IVP Q4HR PRN PRN Reason: Pain Last Admin: 11/26/19 15:39 Dose: 4 mg Documented by: Naloxone HCl (Narcan) 0.2 mg IV Q2M PRN PRN Reason: Opioid Reversal Sertraline HCl (Zoloft) 25 mg PO DAILY [facility] Last Admin: 11/27/19 08:45 Dose: 25 mg Documented by: Tamsulosin HCl (Flomax) 0.4 mg PO DAILY [facility] Last Admin: 11/27/19 08:45 Dose: 0.4 mg Documented by: Tramadol HCl (Ultram) 50 mg PO QID PRN PRN Reason: Pain/Discomfort On examination: VITAL SIGNS: 98.2, 70, 16, 159/80, 97% on room air GENERAL APPEARANCE: Sitting upon a chair, comfortable HEENT: Normal external appearance of nose and ear. Oral cavity normal EYES: Pupils equal. Conjunctiva normal. NECK: JVD not raised. Mass not palpable. RESPIRATORY: Respiratory effort normal. Lungs decreased breath sounds. CARDIOVASCULAR: First and second sounds normal. No edema. ABDOMEN: Soft. Liver and spleen not palpable. No tenderness. No mass palpable, left scrotal bit swollen. PSYCHIATRY: Alert and oriented x3. Mood and affect normal. NEUROLOGICAL: Left-sided weakness power 3/5 INVESTIGATIONS, reviewed in the clinical context: Accu-Cheks noted Previous testing White count 5.9 hemoglobin 8.9 potassium 3.9 creatinine 1.0 to Wound culture-Proteus mirabilis Assessment: -Left scrotal abscess, status post I&D with cultures growing Proteus mirabilis -GERD -Hyperlipidemia -Essential hypertension -Primary osteoarthritis -Left hemiparesis from a prior stroke -Chronic kidney disease -BPH -Obstructive sleep apnea does not use a CPAP -Chronic gait dysfunction uses a cane/walker -Stents in the brain Plan: Patient IV Unasyn. Getting better. Discharge planning the looking into getting the patient to the ECF. Spoke with the patient and the . Follow
--- NOTE | 2019-11-27 21:53 | P.GSCN ---
History of Present Illness Consult date: 11/27/19 Reason for Consult: Scrotal absces History of present illness: No acute overnight event, pain is controlled, denies any drainage from abscess cavity Past Medical History Past Medical History: COPD, CVA/TIA, Eye Disorder, GERD/Reflux, Hyperlipidemia, Hypertension, Osteoarthritis (OA), Prostate Disorder, Renal Disease, Sleep Apnea/CPAP/BIPAP, Syncope Additional Past Medical History / Comment(s): pt is rt side dominant. hx ofMultiple TIAs, CVA 01/2017 with dysphagia-peg tube inserted and now out, has residual weakness lt arm/leg and some lt facial droop. chronic kidney disease BPH, Uti, ROSA has Cpap but does not tolerate it no longer using it, gastric ulcer, soniya eye cataracts, past hxR foot 3rd toe osteomylitis, arthritis multiple joints, past gastric ulcer, past hx shingels. , History of Any Multi-Drug Resistant Organisms: None Reported Past Surgical History: Hernia Repair, Joint Replacement Additional Past Surgical History / Comment(s): 06/01/17 intracranial angioplasty- (pt stated "he has stents') HFH, EGD with peg tube insertion since removed, R inguinal hernia repair, R total knee arthroplasty, colonoscopies with last one in 2014-normal., Past Anesthesia/Blood Transfusion Reactions: No Reported Reaction Past Psychological History: No Psychological Hx Reported Additional Psychological History / Comment(s): Pt lives with his in 2 story home that has 4 front porch steps. Pt stays on first level. No pets. No home care services. Pt uses a cane/walker to ambulate. Pt no longer drives, his spouse drives him to appts. Smoking Status: Never smoker Past Alcohol Use History: None Reported Additional Past Alcohol Use History / Comment(s): started smoking 1963. quit 2015 smoked 1 ppd, no alcohol since 2016 Past Drug Use History: None Reported - Past Family History Mother Family Medical History: CVA/TIA, Diabetes Mellitus, Hyperlipidemia, Hypertension Father Family Medical History: CVA/TIA, Hypertension Medications and Allergies Home Medications Medication Instructions Recorded Confirmed Type Atorvastatin [Lipitor] 80 mg PO HS 05/26/17 11/25/19 History Tamsulosin HCl [Flomax] 0.4 mg PO DAILY 05/26/17 11/25/19 History Sertraline [Zoloft] 25 mg PO DAILY 08/28/17 11/25/19 History Clopidogrel [Plavix] 75 mg PO DAILY #30 tab 11/24/17 11/25/19 Rx Aspirin EC [Ecotrin Low Dose] 81 mg PO DAILY 02/12/18 11/25/19 History Calcitriol 0.25 mcg PO TUTH 10/07/18 11/25/19 History Midodrine HCl [ProAmantine] 2.5 mg PO TID 05/17/19 11/25/19 History Mirabegron [Myrbetriq] 50 mg PO DAILY 05/17/19 11/25/19 History amLODIPine [Norvasc] 2.5 mg PO DAILY 11/25/19 11/25/19 History Allergies Allergy/AdvReac Type Severity Reaction Status Date / Time No Known Allergies Allergy Verified 11/25/19 07:24 Surgical - Exam Vital Signs Temp Pulse Resp BP Pulse Ox 98.5 F 89 18 129/78 98 11/24/19 22:36 11/24/19 22:36 11/24/19 22:36 11/24/19 22:36 11/24/19 22:36 - General no distress, no pain - Respiratory normal expansion, normal respiratory effort - Abdomen Abdomen: soft, non tender - Genitourinary left scrotal abscess, no purulent drainage, no additional areas of fluctance normal penis with no external lesions, testicles present, testicles non-tender Results - Labs 11/26/19 06:28 11/26/19 06:28 Abnormal Lab Results - Last 24 Hours (Table) 11/27/19 11/27/19 11/27/19 Range/Units 07:07 12:40 19:52 POC Glucose (mg/dL) 101 H 118 H 145 H (75-99) mg/dL Microbiology - Last 24 Hours (Table) 11/25/19 13:00 Anaerobic Culture - Preliminary Groin 11/25/19 13:00 Gram Stain - Final Groin Wound Culture - Final Proteus mirabilis 11/25/19 03:20 Blood Culture - Preliminary Blood No Growth after 48 hours Assessment and Plan Assessment: 68-year-old male presents with left-sided scrotal abscess. He underwent a scrotal ultrasound demonstrated there is a cystic area along the upper portion of the right testicle with diminished blood flow. Per radiology report could be an old infarct versus a phlegmon. Of note the patient exam is completely benign. He denies any testicular pain on the right side.S/P bedside I&D. still not having any testicular pain Plan: -Continue antibiotics and -BID dressing change. Patient unable to perform dressing change, might benefit from going to [facility] while his wound is healing -Will eventually need a f/u scortal U/S as an outpatient to assess for changes in right testicle -Ok to resume plavix from urology standpoint -Ok for discharge from urology standpoint
--- NOTE | 2019-11-27 23:55 | PN ---
PROGRESS NOTE DATE OF SERVICE: 11/27/2019 REASON FOR FOLLOWUP: Left scrotal/groin abscess. INTERVAL HISTORY: The patient is currently afebrile, has been breathing comfortably. The patient denies having any chest pain, shortness of breath or cough. No nausea, vomiting. No abdominal pain or pain to the left scrotal area. PHYSICAL EXAMINATION: His blood pressure is 159/80 with a pulse of 70, temperature 98.2. He is 97% on room air. General description is an elderly male lying in bed in no distress. RESPIRATORY SYSTEM: Unlabored breathing. Clear to auscultation anteriorly. HEART: S1, S2. Regular rate and rhythm. ABDOMEN: Soft. No tenderness. LABS: Hemoglobin 8.9, white count 5.9, creatinine 1.02. DIAGNOSTIC IMPRESSION AND PLAN: Patient with left scrotal/groin area abscess, status post drainage. Culture with Proteus mirabilis. Patient is covered with Unasyn and planning to finish therapy with oral antibiotics. Local care to continue per Surgery. Continue with supportive care. MMODL / IJN: [id number] /
[2019-11-28] MEDS: AMPICILLIN-SULBACTAM 3 GM in SODIUM CHLORIDE 0.9% 100 ML IVPB SCH ×3 (00:18→12:48)
[2019-11-28] MEDS: HEPARIN SODIUM,PORCINE 5,000 UNIT/ML 1 ML VIAL SQ SCH ×2 (00:19→08:08)
[2019-11-28 07:05] LABS: Glucose,Whole Blood 99 mg/dL (75-99)
[2019-11-28] MEDS: INSULIN ASPART (NovoLOG) 100 UNIT/ML VIAL SQ SCH ×2 (08:03→12:41)
[2019-11-28] MEDS: SERTRALINE 25 MG TAB PO SCH (08:09)
[2019-11-28] MEDS: amLODIPine 5 MG TAB PO SCH (08:09)
[2019-11-28] MEDS: MIDODRINE 5 MG TAB PO SCH ×2 (08:09→12:44)
[2019-11-28] MEDS: TAMSULOSIN 0.4 MG CAP.ER.24H PO SCH (08:09)
[2019-11-28] MEDS: ASPIRIN 81 MG PO SCH (08:09)
[2019-11-28] MEDS: SODIUM CHLORIDE 0.9% 1,000 ML IV SCH (08:12)
[2019-11-28 08:16] LABS: Anisocytosis Slight; HCT 29.2 % (39.0-53.0); HGB 9.1 gm/dL (13.0-17.5); Hypochromasia Slight; MCH 28.7 pg (25.0-35.0); MCHC 31.1 g/dL (31.0-37.0); MCV 92.2 fL (80.0-100.0); Mean Platelet Volume 7.2; Platelet Count 381 k/uL (150-450); RBC 3.17 m/uL (4.30-5.90); RDW 16.4 % (11.5-15.5); WBC 6.8 k/uL (3.8-10.6)
[2019-11-28 08:33] LABS: African American GFR (CKD) >90 (>60 ml/min/1.73 sqM); Anion Gap 7 mmol/L; Blood Urea Nitrogen 10 mg/dL (9-20); Calcium 8.7 mg/dL (8.4-10.2); Carbon Dioxide 27 mmol/L (22-30); Chloride 103 mmol/L (98-107); Glucose 90 mg/dL (74-99); Non-African American GFR(CKD) 81 (>60 ml/min/1.73 sqM); Potassium 3.4 mmol/L (3.5-5.1); Sodium 137 mmol/L (137-145)
[2019-11-28 11:46] LABS: Glucose,Whole Blood 113 mg/dL (75-99)
[2019-11-28] MEDS ORDERED: NAPROXEN 250 MG TAB PO STA (12:14)
--- NOTE | 2019-11-28 12:20 | P.DS ---
Providers Date of admission: 11/26/19 10:21 Expected date of discharge: 11/28/19 Attending physician: Adams Dexter Consults: 11/25/19 03:12 Consult Physician Urgent Consulting Provider: Sukhwinder Welch Consult Reason/Comments: left groin/scrotal abscess Do you want consulting provider notified?: Already Contacted Consult Physician Urgent Consulting Provider: Neo Duckworth Consult Reason/Comments: left groin abscess Do you want consulting provider notified?: Yes Primary care physician: Rick Luke Procedures: Presenting complaint: Left scrotal pain Hospital course: This is a 68-year-old patient of Dr. luke. Extensive medical history. Patient does wear a condom catheter. Admitted with left scrotal abscess status post I&D.. Cultures positive for Proteus mirabilis. Today-feeling much better.. Afebrile. Normal white count. Discussed with Dr. duckworth from ID. For 10 days of ciprofloxacin. Wound care per Dr. welch. Discussion and discharge planning more than 35 minutes Consultation: Dr. duckworth from ID Dr. welch from urology On examination: VITAL SIGNS: 96.7, 71, 16, pulse 61/84, 96% GENERAL APPEARANCE: Sitting upon a chair, comfortable HEENT: Normal external appearance of nose and ear. Oral cavity normal EYES: Pupils equal. Conjunctiva normal. NECK: JVD not raised. Mass not palpable. RESPIRATORY: Respiratory effort normal. Lungs decreased breath sounds. CARDIOVASCULAR: First and second sounds normal. No edema. ABDOMEN: Soft. Liver and spleen not palpable. No tenderness. No mass palpable, left scrotal bit swollen. PSYCHIATRY: Alert and oriented x3. Mood and affect normal. NEUROLOGICAL: Left-sided weakness power 3/5 INVESTIGATIONS, reviewed in the clinical context: White count 6.8 hemoglobin 9.1 potassium 3.4 creatinine 0.96 Previous testing White count 5.9 hemoglobin 8.9 potassium 3.9 creatinine 1.0 to Wound culture-Proteus mirabilis Assessment: -Left scrotal abscess, status post I&D with cultures growing Proteus mirabilis -GERD -Hyperlipidemia -Essential hypertension -Primary osteoarthritis -Normocytic anemia. Cause unknown. For further workup as an outpatient. -Left hemiparesis from a prior stroke -Acute renal failure, likely ATN from infection, improved -No chronic kidney disease -BPH -Obstructive sleep apnea does not use a CPAP -Chronic gait dysfunction uses a cane/walker -Stents in the brain Disposition: ECF/[facility] Patient Condition at Discharge: Stable Plan - Discharge Summary New Discharge Prescriptions: New Ciprofloxacin HCl [Cipro] 750 mg PO BID #20 tab amLODIPine [Norvasc] 5 mg PO DAILY tab Naproxen 250 mg PO TID #1 tablet Continue Atorvastatin [Lipitor] 80 mg PO HS Tamsulosin HCl [Flomax] 0.4 mg PO DAILY Sertraline [Zoloft] 25 mg PO DAILY Clopidogrel [Plavix] 75 mg PO DAILY #30 tab Aspirin EC [Ecotrin Low Dose] 81 mg PO DAILY Calcitriol 0.25 mcg PO TUTH Mirabegron [Myrbetriq] 50 mg PO DAILY Midodrine HCl [ProAmantine] 2.5 mg PO TID #9 tab Discontinued amLODIPine [Norvasc] 2.5 mg PO DAILY Discharge Medication List Atorvastatin [Lipitor] 80 mg PO HS 05/26/17 [History] Tamsulosin HCl [Flomax] 0.4 mg PO DAILY 05/26/17 [History] Sertraline [Zoloft] 25 mg PO DAILY 08/28/17 [History] Clopidogrel [Plavix] 75 mg PO DAILY #30 tab 11/24/17 [Rx] Aspirin EC [Ecotrin Low Dose] 81 mg PO DAILY 02/12/18 [History] Calcitriol 0.25 mcg PO TUTH 10/07/18 [History] Mirabegron [Myrbetriq] 50 mg PO DAILY 05/17/19 [History] Ciprofloxacin HCl [Cipro] 750 mg PO BID #20 tab 11/28/19 [Rx] Midodrine HCl [ProAmantine] 2.5 mg PO TID #9 tab 11/28/19 [Rx] Naproxen 250 mg PO TID #1 tablet 11/28/19 [Rx] amLODIPine [Norvasc] 5 mg PO DAILY tab 11/28/19 [Rx] Follow up Appointment(s)/Referral(s): Chris Ceballos DO [STAFF PHYSICIAN] - 1-2 Days Rick Luke MD [Primary Care Provider] - As Needed Sukhwinder Welch MD [STAFF PHYSICIAN] - 1 Week Activity/Diet/Wound Care/Special Instructions: Scrotal wound care as per Dr. welch
[2019-11-28 12:27] VITALS: BP 137/78; PULSE 66; TEMP 97.9
[2019-11-28] MEDS: MORPHINE SULFATE 4 MG/ML SYRINGE IVP PRN (14:12)
--- NOTE | 2019-11-28 14:13 | PN ---
PROGRESS NOTE DATE OF SERVICE: 11/28/2019 REASON FOR FOLLOWUP: Left scrotal abscess, cellulitis. INTERVAL HISTORY: The patient is currently afebrile, has been breathing comfortably, overall pain discomfort in the left scrotal area has decreased. The drainage has decreased. No chest pain. No cough. No abdominal pain, no diarrhea. PHYSICAL EXAMINATION: Blood pressure 137/78 with a pulse of 66, temperature 97.9, he is 93% on room air. General description is elderly male, up in the bed in no distress. The left scrotal area swelling and redness have improved. No foul smelling drainage was noticed. LABS: Hemoglobin 9.1, white count of 6.8, BUN of 10, creatinine 0.96. Wound culture with Proteus mirabilis. DIAGNOSTIC IMPRESSION AND PLAN: Patient with left scrotal area abscess cellulitis, status post surgical drainage. Patient overall improvement on Unasyn with Augmentin sensitive. Discharge antibiotic will be Cipro 500 mg twice a day for 7 days. Local care with Aquacel Silver packing. Continue supportive care. MMODL / IJN: [id number] /
[2019-11-28] MEDS ORDERED: NAPROXEN 250 MG TAB PO SCH (17:30)
[2019-11-28] MEDS ORDERED: CIPROFLOXACIN HCL 250 MG TAB PO SCH (21:00)
== END 2019-11-28 15:50 | DRG 727 ==
LOC: EC 22:27 → 6NMEDSUR 11-25 03:14 → 5NMEDONC 11-25 14:27 → OBSVTOIN 11-26 10:21
PROVIDERS: ADMIT Hospitalist; ATTEND Hospitalist
PROC: 0V950ZX Drainage of Scrotum, Open Approach, Diagnostic (ICD-10-PCS; principal; 2019-11-25)
DX: N49.2 Inflammatory disorders of scrotum (principal); N17.0 Acute kidney failure with tubular necrosis; I69.354 Hemiplegia and hemiparesis following cerebral infarction affecting left non-dominant side; B96.4 Proteus (mirabilis) (morganii) as the cause of diseases classified elsewhere; D64.9 Anemia, unspecified; E78.5 Hyperlipidemia, unspecified; G47.33 Obstructive sleep apnea (adult) (pediatric); I12.9 Hypertensive chronic kidney disease with stage 1 through stage 4 chronic kidney disease, or unspecified chronic kidney disease; I69.392 Facial weakness following cerebral infarction; J44.9 Chronic obstructive pulmonary disease, unspecified; K21.9 Gastro-esophageal reflux disease without esophagitis; M13.0 Polyarthritis, unspecified; N18.3 Chronic kidney disease, stage 3 (moderate); N43.3 Hydrocele, unspecified; N40.1 Benign prostatic hyperplasia with lower urinary tract symptoms; N39.498 Other specified urinary incontinence; Z79.02 Long term (current) use of antithrombotics/antiplatelets; Z79.82 Long term (current) use of aspirin; Z79.899 Other long term (current) drug therapy; Z82.49 Family history of ischemic heart disease and other diseases of the circulatory system; Z83.3 Family history of diabetes mellitus; Z87.891 Personal history of nicotine dependence; Z96.651 Presence of right artificial knee joint; R26.9 Unspecified abnormalities of gait and mobility; Z98.42 Cataract extraction status, left eye; Z98.41 Cataract extraction status, right eye; Z87.11 Personal history of peptic ulcer disease; Z82.3 Family history of stroke
CPT/HCPCS: 36415; 72193; 76870; 80048; 80053; 82565; 83605; 85025; 85027; 85652; 86140; 87040; 87070; 87075; 87077; 87186; 87205; 93975; 96365; 96366; 99285

== ENCOUNTER 2019-11-28 17:46 | Inpatient (IN) | payer MEDICARE, OTHER ==
[2019-11-28] MEDS ORDERED: ONDANSETRON 4 MG/2 ML VIAL IVP PRN (19:21)
[2019-11-28 20:10] LABS: Glucose,Whole Blood 205 mg/dL (75-99)
[2019-11-28] MEDS ORDERED: CIPROFLOXACIN HCL 250 MG TAB PO SCH (21:00)
[2019-11-28] MEDS: INSULIN ASPART (NovoLOG) 100 UNIT/ML VIAL SQ SCH (21:22)
[2019-11-28] MEDS: ATORVASTATIN 80 MG TAB PO SCH (21:22)
[2019-11-28] MEDS: NAPROXEN 250 MG TAB PO SCH (21:22)
[2019-11-28 21:53] VITALS: RESP 16
[2019-11-29] MEDS: PIPERACILLIN-TAZOBACTAM 3.375 GM in SODIUM CHLORIDE 0.9% 100 ML IVPB SCH ×3 (00:54→17:13)
[2019-11-29 07:02] LABS: Glucose,Whole Blood 97 mg/dL (75-99)
[2019-11-29] MEDS: INSULIN ASPART (NovoLOG) 100 UNIT/ML VIAL SQ SCH ×4 (08:40→21:54)
[2019-11-29] MEDS: ENOXAPARIN 40 MG/0.4 ML SYRINGE SQ SCH (08:43)
[2019-11-29] MEDS: MIDODRINE 5 MG TAB PO SCH ×3 (08:43→17:15)
[2019-11-29] MEDS: TAMSULOSIN 0.4 MG CAP.ER.24H PO SCH (08:43)
[2019-11-29] MEDS: ASPIRIN 81 MG PO SCH (08:43)
[2019-11-29] MEDS: SERTRALINE 25 MG TAB PO SCH (08:43)
[2019-11-29] MEDS: NAPROXEN 250 MG TAB PO SCH ×3 (08:43→21:54)
[2019-11-29] MEDS: CLOPIDOGREL 75 MG TAB PO SCH (08:43)
[2019-11-29] MEDS: amLODIPine 5 MG TAB PO SCH (08:43)
[2019-11-29 11:44] LABS: Glucose,Whole Blood 107 mg/dL (75-99)
[2019-11-29 17:03] LABS: Glucose,Whole Blood 99 mg/dL (75-99)
--- NOTE | 2019-11-29 17:21 | P.HPIM ---
History of Present Illness H&P Date: 11/29/19 Chief Complaint: Left scrotal abscess History of presenting complaint.: This is a 68-year-old patient of Dr. chacko. Chronic stable medical conditions include GERD, hyperlipidemia, hypertension, primary osteoarthritis, left hemiparesis from prior stroke, BPH, obstructive sleep apnea does not use CPAP, chronic kidney dysfunction uses a cane/walker, stents in the brain. Patient did present to the hospital on November 25 and was found to have left scrotal abscess. Underwent I&D by Dr. dsouza from urology.Cultures positive for Proteus mirabilis. Patient started to improve. Patient was discharged yesterday at [facility], after being coordinated by the discharge planners. I was called by the [facility] liaisons yesterday evening that the patient had not with the requirement for 3 nights of the hospital at least to return to the hospital. I accepted the patient back to the hospital. Patient still has some pain and discomfort in the scrotal area. No fever no chills. Did tolerate a diet. Review of systems: GEN.: Tired EYES: None HEENT: None NECK: None RESPIRATORY: None CARDIOVASCULAR: None GASTROINTESTINAL: None GENITOURINARY: As above MUSCULOSKELETAL: Some joint pains LYMPHATICS: None HEMATOLOGICAL: None PSYCHIATRY: None NEUROLOGICAL: Left-sided weakness Past history to include: GERD, hyperlipidemia, hypertension, primary osteoarthritis, left hemiparesis from prior stroke in 2017 and dysphagia did have a PEG tube temporarily., BPH, obstructive sleep apnea but does not use CPAP, gait dysfunction, some stents of the brain Social history: . Does use a cane and a walker. No alcohol since 2016. Patient smoked for 50 years a pack a day stopped in 2016. On examination: VITAL SIGNS: 97.5, 69, 16, 139/37, 98% room air GENERAL APPEARANCE: Sitting upon a chair, comfortable HEENT: Normal external appearance of nose and ear. Oral cavity normal EYES: Pupils equal. Conjunctiva normal. NECK: JVD not raised. Mass not palpable. RESPIRATORY: Respiratory effort normal. Lungs decreased breath sounds. CARDIOVASCULAR: First and second sounds normal. No edema. ABDOMEN: Soft. Liver and spleen not palpable. No tenderness. No mass palpable, left scrotal bit swollen, tender. PSYCHIATRY: Alert and oriented x3. Mood and affect normal. NEUROLOGICAL: Left-sided weakness power 3/5 INVESTIGATIONS, reviewed in the clinical context: White count 6.8 hemoglobin 9.1 progression 3.4 creatinine 0.96 Wound culture-Proteus mirabilis Assessment: -Left scrotal abscess, status post I&D with cultures growing Proteus mirabilis -GERD -Hyperlipidemia -Essential hypertension -Primary osteoarthritis -Normocytic anemia. Cause unknown. For further workup as an outpatient. -Left hemiparesis from a prior stroke -Acute renal failure, likely ATN from infection, improved -No chronic kidney disease -BPH -Obstructive sleep apnea does not use a CPAP -Chronic gait dysfunction uses a cane/walker -Stents in the brain Plan: Patient will be continued on antibiotics. Other medications to continue. Was informed by the case management associate that patient will require 3 nights requirement, before the patient can return to ECF Past Medical History Past Medical History: COPD, CVA/TIA, Eye Disorder, GERD/Reflux, Hyperlipidemia, Hypertension, Osteoarthritis (OA), Prostate Disorder, Renal Disease, Sleep Apnea/CPAP/BIPAP, Syncope Additional Past Medical History / Comment(s): pt is rt side dominant. hx ofMultiple TIAs, CVA 01/2017 with dysphagia-peg tube inserted and now out, has residual weakness lt arm/leg and some lt facial droop. chronic kidney disease BPH, Uti, ROSA has Cpap but does not tolerate it no longer using it, gastric ulcer, soniya eye cataracts, past hxR foot 3rd toe osteomylitis, arthritis multiple joints, past gastric ulcer, past hx shingels. , History of Any Multi-Drug Resistant Organisms: None Reported Past Surgical History: Hernia Repair, Joint Replacement Additional Past Surgical History / Comment(s): 06/01/17 intracranial angioplasty- (pt stated "he has stents') HFH, EGD with peg tube insertion since removed, R inguinal hernia repair, R total knee arthroplasty, colonoscopies with last one in 2014-normal., Past Anesthesia/Blood Transfusion Reactions: No Reported Reaction Past Psychological History: No Psychological Hx Reported Additional Psychological History / Comment(s): Pt lives with his in 2 story home that has 4 front porch steps. Pt stays on first level. No pets. No home care services. Pt uses a cane/walker to ambulate. Pt no longer drives, his spouse drives him to appts. Smoking Status: Former smoker Past Alcohol Use History: None Reported Additional Past Alcohol Use History / Comment(s): started smoking 1963. quit 2016 smoked 1 ppd, no alcohol since 2015 Past Drug Use History: None Reported - Past Family History Mother Family Medical History: CVA/TIA, Diabetes Mellitus, Hyperlipidemia, Hypertension Father Family Medical History: CVA/TIA, Hypertension Medications and Allergies Home Medications Medication Instructions Recorded Confirmed Type Atorvastatin [Lipitor] 80 mg PO HS 05/26/17 11/28/19 History Tamsulosin HCl [Flomax] 0.4 mg PO DAILY 05/26/17 11/28/19 History Sertraline [Zoloft] 25 mg PO DAILY 08/28/17 11/28/19 History Clopidogrel [Plavix] 75 mg PO DAILY #30 tab 11/24/17 11/28/19 Rx Aspirin EC [Ecotrin Low Dose] 81 mg PO DAILY 02/12/18 11/28/19 History Calcitriol 0.25 mcg PO TUTH 10/07/18 11/28/19 History Mirabegron [Myrbetriq] 50 mg PO DAILY 05/17/19 11/28/19 History Ciprofloxacin HCl [Cipro] 750 mg PO BID #20 tab 11/28/19 11/28/19 Rx Midodrine HCl [ProAmantine] 2.5 mg PO TID #9 tab 11/28/19 11/28/19 Rx Naproxen 250 mg PO TID #1 tablet 11/28/19 11/28/19 Rx amLODIPine [Norvasc] 5 mg PO DAILY tab 11/28/19 11/28/19 Rx Allergies Allergy/AdvReac Type Severity Reaction Status Date / Time No Known Allergies Allergy Verified 11/25/19 07:24 Physical Exam Vitals: Vital Signs Temp Pulse Resp BP Pulse Ox 11/29/19 04:52 97.5 F L 69 16 139/77 98 11/28/19 21:00 97.9 F 68 16 139/68 96 Intake and Output 11/28/19 11/29/19 11/29/19 22:59 06:59 14:59 Intake Total 600 590 Output Total 300 Balance 600 290 Intake: Oral 600 590 Output: Urine 300 Other: Weight 87.997 kg Results Labs: Abnormal Lab Results - Last 24 Hours (Table) 11/28/19 Range/Units 20:09 POC Glucose (mg/dL) 205 H (75-99) mg/dL Thrombosis Risk Factor Assmnt - Choose All That Apply Each Factor Represents 1 point: Abnormal pulmonary function (COPD) Each Risk Factor Represents 2 Points: Age 61-74 years Thrombosis Risk Factor Assessment Total Risk Factor Score: 3 Thrombosis Risk Factor Assessment Level: Moderate Risk
[2019-11-29 19:56] LABS: Glucose,Whole Blood 139 mg/dL (75-99)
[2019-11-29] MEDS: ATORVASTATIN 80 MG TAB PO SCH (21:54)
[2019-11-30] MEDS: PIPERACILLIN-TAZOBACTAM 3.375 GM in SODIUM CHLORIDE 0.9% 100 ML IVPB SCH ×4 (00:30→23:45)
[2019-11-30 07:11] LABS: Glucose,Whole Blood 92 mg/dL (75-99)
[2019-11-30] MEDS: INSULIN ASPART (NovoLOG) 100 UNIT/ML VIAL SQ SCH ×4 (07:55→22:06)
[2019-11-30] MEDS: MIDODRINE 5 MG TAB PO SCH ×3 (07:56→17:34)
[2019-11-30] MEDS: amLODIPine 5 MG TAB PO SCH (10:33)
[2019-11-30] MEDS: ENOXAPARIN 40 MG/0.4 ML SYRINGE SQ SCH (10:33)
[2019-11-30] MEDS: TAMSULOSIN 0.4 MG CAP.ER.24H PO SCH (10:34)
[2019-11-30] MEDS: NAPROXEN 250 MG TAB PO SCH ×3 (10:34→22:05)
[2019-11-30] MEDS: CLOPIDOGREL 75 MG TAB PO SCH (10:34)
[2019-11-30] MEDS: ASPIRIN 81 MG PO SCH (10:34)
[2019-11-30] MEDS: SERTRALINE 25 MG TAB PO SCH (10:34)
[2019-11-30 11:18] LABS: Glucose,Whole Blood 109 mg/dL (75-99)
[2019-11-30 17:30] LABS: Glucose,Whole Blood 105 mg/dL (75-99)
[2019-11-30 21:54] LABS: Glucose,Whole Blood 154 mg/dL (75-99)
[2019-11-30] MEDS: ATORVASTATIN 80 MG TAB PO SCH (22:06)
--- NOTE | 2019-11-30 22:36 | P.PN ---
Progress Note - Text Progress Note Date: 11/30/19 Chief Complaint: Left scrotal abscess History of presenting complaint.: This is a 68-year-old patient of Dr. chacko. Chronic stable medical conditions include GERD, hyperlipidemia, hypertension, primary osteoarthritis, left hemiparesis from prior stroke, BPH, obstructive sleep apnea does not use CPAP, chronic kidney dysfunction uses a cane/walker, stents in the brain. Patient did present to the hospital on November 25 and was found to have left scrotal abscess. Underwent I&D by Dr. dsouza from urology.Cultures positive for Proteus mirabilis. Patient started to improve. Patient was [facility], after being coordinated by the discharge planners. I was called by the [facility] liaisons yesterday evening that the patient had not with the requirement for 3 nights of the hospital at least to return to the hospital. I accepted the patient back to the hospital. Patient still has some pain and discomfort in the scrotal area. No fever no chills. Did tolerate a diet. today-sitting up in bed. Feeling well. Pain and swelling scrotal much improved. Tolerated diet. Did walk in the hallway. present. Review of systems: Was done for constitutional, cardiovascular, GI, pulmonary. relevant finding as above Active Medications Amlodipine Besylate (Norvasc) 5 mg PO DAILY [facility] Last Admin: 11/30/19 10:33 Dose: 5 mg Documented by: Aspirin (Aspirin) 81 mg PO DAILY [facility] Last Admin: 11/30/19 10:34 Dose: 81 mg Documented by: Atorvastatin Calcium (Lipitor) 80 mg PO HS [facility] Last Admin: 11/30/19 22:06 Dose: 80 mg Documented by: Calcitriol (Rocaltrol) 0.25 mcg PO TuTh@0900 [facility] Clopidogrel Bisulfate (Plavix) 75 mg PO DAILY [facility] Last Admin: 11/30/19 10:34 Dose: 75 mg Documented by: Enoxaparin Sodium (Lovenox) 40 mg SQ DAILY [facility] Last Admin: 11/30/19 10:33 Dose: 40 mg Documented by: Piperacillin Sod/Tazobactam (Sod 3.375 gm/ Sodium Chloride) 100 mls @ 25 mls/hr IVPB Q8HR [facility] Last Admin: 11/30/19 17:34 Dose: 25 mls/hr Documented by: Insulin Aspart (Novolog) 0 unit SQ ACHS [facility]; Protocol Last Admin: 11/30/19 22:06 Dose: 1 unit Documented by: Midodrine (Proamatine) 2.5 mg PO AC-TID [facility] Last Admin: 11/30/19 17:34 Dose: Not Given Documented by: Naproxen (Naprosyn) 250 mg PO TID [facility] Last Admin: 11/30/19 22:05 Dose: 250 mg Documented by: Ondansetron HCl (Zofran) 4 mg IVP Q6HR PRN PRN Reason: Nausea And Vomiting Sertraline HCl (Zoloft) 25 mg PO DAILY [facility] Last Admin: 11/30/19 10:34 Dose: 25 mg Documented by: Tamsulosin HCl (Flomax) 0.4 mg PO DAILY [facility] Last Admin: 11/30/19 10:34 Dose: 0.4 mg Documented by: On examination: VITAL SIGNS: 97.9, 62, 16, 156/87, 99% room air GENERAL APPEARANCE: Sitting upon a chair, comfortable HEENT: Normal external appearance of nose and ear. Oral cavity normal EYES: Pupils equal. Conjunctiva normal. NECK: JVD not raised. Mass not palpable. RESPIRATORY: Respiratory effort normal. Lungs decreased breath sounds. CARDIOVASCULAR: First and second sounds normal. No edema. ABDOMEN: Soft. Liver and spleen not palpable. No tenderness. No mass palpable, left scrotal improving PSYCHIATRY: Alert and oriented x3. Mood and affect normal. NEUROLOGICAL: Left-sided weakness power 3/5 INVESTIGATIONS, reviewed in the clinical context: Accu-Cheks noted Previous testing White count 6.8 hemoglobin 9.1 progression 3.4 creatinine 0.96 Wound culture-Proteus mirabilis Assessment: -Left scrotal abscess, status post I&D with cultures growing Proteus mirabilis, improving -GERD -Hyperlipidemia -Essential hypertension -Primary osteoarthritis -Normocytic anemia. Cause unknown. For further workup as an outpatient. -Left hemiparesis from a prior stroke -Acute renal failure, likely ATN from infection, improved -No chronic kidney disease -BPH -Obstructive sleep apnea does not use a CPAP -Chronic gait dysfunction uses a cane/walker -Stents in the brain Plan: doing better. Improving. Switch over to oral antibiotics in the morning. Should go back to the ECF.-Once hospital administration rclears up paperwork to go [facility]
[2019-12-01 07:16] LABS: Glucose,Whole Blood 94 mg/dL (75-99)
[2019-12-01] MEDS: INSULIN ASPART (NovoLOG) 100 UNIT/ML VIAL SQ SCH ×2 (08:29→14:02)
[2019-12-01] MEDS: SERTRALINE 25 MG TAB PO SCH (08:50)
[2019-12-01] MEDS: amLODIPine 5 MG TAB PO SCH (08:50)
[2019-12-01] MEDS: PIPERACILLIN-TAZOBACTAM 3.375 GM in SODIUM CHLORIDE 0.9% 100 ML IVPB SCH (08:50)
[2019-12-01] MEDS: ASPIRIN 81 MG PO SCH (08:50)
[2019-12-01] MEDS: CLOPIDOGREL 75 MG TAB PO SCH (08:50)
[2019-12-01] MEDS: ENOXAPARIN 40 MG/0.4 ML SYRINGE SQ SCH (08:50)
[2019-12-01] MEDS: TAMSULOSIN 0.4 MG CAP.ER.24H PO SCH (08:50)
[2019-12-01] MEDS: MIDODRINE 5 MG TAB PO SCH (08:52)
[2019-12-01] MEDS: NAPROXEN 250 MG TAB PO SCH (08:52)
[2019-12-01 11:27] LABS: Glucose,Whole Blood 104 mg/dL (75-99)
--- NOTE | 2019-12-01 13:10 | P.DS ---
Providers Date of admission: 11/28/19 17:52 Expected date of discharge: 12/01/19 Attending physician: Adams Dexter Primary care physician: Stated None Hospital Course: Chief Complaint: Left scrotal abscess History of presenting complaint: This is a 68-year-old patient of Dr. chacko. Chronic stable medical conditions include GERD, hyperlipidemia, hypertension, primary osteoarthritis, left hemiparesis from prior stroke, BPH, obstructive sleep apnea does not use CPAP, chronic kidney dysfunction uses a cane/walker, stents in the brain. Patient did present to the hospital on November 25 and was found to have left scrotal abscess. Underwent I&D by Dr. dsouza from urology.Cultures positive for Proteus mirabilis. Patient started to improve. Patient was discharged yesterday at [facility], after being coordinated by the discharge planners. I was called by the [facility] liaisons yesterday evening that the patient had not with the requirement for 3 nights of the hospital at least to return to the hospital. I accepted the patient back to the hospital. Patient still has some pain and discomfort in the scrotal area. No fever no chills. Did tolerate a diet. Hospital course: Pain swelling greatly improved. Tolerating a diet. Ambulating better. Patient seen by [facility]. Qualified to go to inpatient rehab. Discussed with the patient. Discussed with criminal justice social worker and liaison. Discussion and discharge planning more than 35 minutes On examination: VITAL SIGNS: 98, 75, 16, 157-85, 95% on room air GENERAL APPEARANCE: Sitting upon a chair, comfortable HEENT: Normal external appearance of nose and ear. Oral cavity normal EYES: Pupils equal. Conjunctiva normal. NECK: JVD not raised. Mass not palpable. RESPIRATORY: Respiratory effort normal. Lungs decreased breath sounds. CARDIOVASCULAR: First and second sounds normal. No edema. ABDOMEN: Soft. Liver and spleen not palpable. No tenderness. No mass palpable, left scrotal improving PSYCHIATRY: Alert and oriented x3. Mood and affect normal. NEUROLOGICAL: Left-sided weakness power 3/5 INVESTIGATIONS, reviewed in the clinical context: Accu-Cheks noted Previous testing White count 6.8 hemoglobin 9.1 progression 3.4 creatinine 0.96 Wound culture-Proteus mirabilis Assessment: -Left scrotal abscess, status post I&D with cultures growing Proteus mirabilis, improving -GERD -Hyperlipidemia -Essential hypertension -Primary osteoarthritis -Normocytic anemia. Cause unknown. For further workup as an outpatient. -Left hemiparesis from a prior stroke -Acute renal failure, likely ATN from infection, improved -No chronic kidney disease -BPH -Obstructive sleep apnea does not use a CPAP -Chronic gait dysfunction uses a cane/walker -Stents in the brain Disposition: ECF/[facility] Plan - Discharge Summary Discharge Rx Participant: No New Discharge Prescriptions: No Action Atorvastatin [Lipitor] 80 mg PO HS Tamsulosin HCl [Flomax] 0.4 mg PO DAILY Sertraline [Zoloft] 25 mg PO DAILY Clopidogrel [Plavix] 75 mg PO DAILY #30 tab Aspirin EC [Ecotrin Low Dose] 81 mg PO DAILY Calcitriol 0.25 mcg PO TUTH Mirabegron [Myrbetriq] 50 mg PO DAILY Ciprofloxacin HCl [Cipro] 750 mg PO BID #20 tab amLODIPine [Norvasc] 5 mg PO DAILY tab Midodrine HCl [ProAmantine] 2.5 mg PO TID #9 tab Naproxen 250 mg PO TID #1 tablet Discharge Medication List Atorvastatin [Lipitor] 80 mg PO HS 05/26/17 [History] Tamsulosin HCl [Flomax] 0.4 mg PO DAILY 05/26/17 [History] Sertraline [Zoloft] 25 mg PO DAILY 08/28/17 [History] Clopidogrel [Plavix] 75 mg PO DAILY #30 tab 11/24/17 [Rx] Aspirin EC [Ecotrin Low Dose] 81 mg PO DAILY 02/12/18 [History] Calcitriol 0.25 mcg PO TUTH 10/07/18 [History] Mirabegron [Myrbetriq] 50 mg PO DAILY 05/17/19 [History] Ciprofloxacin HCl [Cipro] 750 mg PO BID #20 tab 11/28/19 [Rx] Midodrine HCl [ProAmantine] 2.5 mg PO TID #9 tab 11/28/19 [Rx] Naproxen 250 mg PO TID #1 tablet 11/28/19 [Rx] amLODIPine [Norvasc] 5 mg PO DAILY tab 11/28/19 [Rx]
[2019-12-01 13:59] VITALS: BP 150/85; PULSE 65; TEMP 97.6
[2019-12-02] MEDS ORDERED: CALCITRIOL 0.25 MCG CAP PO SCH (09:00)
== END 2019-12-01 16:11 | DRG 727 ==
LOC: 5NMEDONC 17:52
PROVIDERS: ADMIT Hospitalist; ATTEND Hospitalist
DX: N49.2 Inflammatory disorders of scrotum (principal); N17.0 Acute kidney failure with tubular necrosis; I69.354 Hemiplegia and hemiparesis following cerebral infarction affecting left non-dominant side; N40.0 Benign prostatic hyperplasia without lower urinary tract symptoms; M19.91 Primary osteoarthritis, unspecified site; K21.9 Gastro-esophageal reflux disease without esophagitis; N18.9 Chronic kidney disease, unspecified; I12.9 Hypertensive chronic kidney disease with stage 1 through stage 4 chronic kidney disease, or unspecified chronic kidney disease; G47.33 Obstructive sleep apnea (adult) (pediatric); E78.5 Hyperlipidemia, unspecified; I69.391 Dysphagia following cerebral infarction; R13.10 Dysphagia, unspecified; B96.4 Proteus (mirabilis) (morganii) as the cause of diseases classified elsewhere; H26.9 Unspecified cataract; B02.9 Zoster without complications; D64.9 Anemia, unspecified; R26.9 Unspecified abnormalities of gait and mobility; J44.9 Chronic obstructive pulmonary disease, unspecified; Z79.899 Other long term (current) drug therapy; Z79.02 Long term (current) use of antithrombotics/antiplatelets; Z79.82 Long term (current) use of aspirin; Z87.440 Personal history of urinary (tract) infections; Z96.89 Presence of other specified functional implants; Z87.11 Personal history of peptic ulcer disease; Z87.891 Personal history of nicotine dependence; Z98.890 Other specified postprocedural states; Z96.651 Presence of right artificial knee joint; Z83.3 Family history of diabetes mellitus; Z82.49 Family history of ischemic heart disease and other diseases of the circulatory system; Z82.3 Family history of stroke

== ENCOUNTER 2019-12-08 14:57 | Observation (INO) | payer MEDICARE, OTHER ==
[2019-12-08 15:10] LABS: Glucose,Whole Blood 172 mg/dL (75-99)
--- NOTE | 2019-12-08 15:17 | ED ---
General Adult HPI - General Chief complaint: Neuro Symptoms/Deficit Stated complaint: poss TIA Time Seen by Provider: 12/08/19 15:01 Source: patient, family, EMS, RN notes reviewed Mode of arrival: EMS Limitations: no limitations - History of Present Illness Initial comments: Patient is a pleasant 68-year-old male presenting to the emergency department with concern for possible TIA. Onset of symptoms was just prior to arrival. Patient went to the bathroom and had some difficulty. After this patient had shaking and weakness of his right leg. Symptoms lasted around 15 minutes and have now resolved. Patient is symptom-free at this time. Patient does have history of similar symptoms previously associated with strokes. - Related Data Home Medications Medication Instructions Recorded Confirmed Atorvastatin [Lipitor] 80 mg PO HS 05/26/17 11/28/19 Tamsulosin HCl [Flomax] 0.4 mg PO DAILY 05/26/17 11/28/19 Sertraline [Zoloft] 25 mg PO DAILY 08/28/17 11/28/19 Aspirin EC [Ecotrin Low Dose] 81 mg PO DAILY 02/12/18 11/28/19 Calcitriol 0.25 mcg PO TUTH 10/07/18 11/28/19 Mirabegron [Myrbetriq] 50 mg PO DAILY 05/17/19 11/28/19 Previous Rx's Medication Instructions Recorded Clopidogrel [Plavix] 75 mg PO DAILY #30 tab 11/24/17 Midodrine HCl [ProAmantine] 2.5 mg PO TID #9 tab 11/28/19 amLODIPine [Norvasc] 5 mg PO DAILY tab 11/28/19 Ciprofloxacin HCl [Cipro] 750 mg PO BID #20 tab 12/01/19 Naproxen 250 mg PO TID #9 tablet 12/01/19 Allergies Allergy/AdvReac Type Severity Reaction Status Date / Time No Known Allergies Allergy Verified 12/08/19 15:01 Review of Systems ROS Statement: Those systems with pertinent positive or pertinent negative responses have been documented in the HPI. ROS Other: All systems not noted in ROS Statement are negative. Constitutional: Denies: fever Eyes: Denies: eye pain ENT: Denies: ear pain Respiratory: Denies: cough Cardiovascular: Denies: chest pain Endocrine: Denies: fatigue Gastrointestinal: Denies: abdominal pain Genitourinary: Denies: dysuria Musculoskeletal: Denies: back pain Skin: Denies: rash Neurological: Reports: as per HPI, weakness Past Medical History Past Medical History: COPD, CVA/TIA, Eye Disorder, GERD/Reflux, Hyperlipidemia, Hypertension, Osteoarthritis (OA), Prostate Disorder, Renal Disease, Sleep Apnea/CPAP/BIPAP, Syncope Additional Past Medical History / Comment(s): pt is rt side dominant. hx ofMultiple TIAs, CVA 01/2017 with dysphagia-peg tube inserted and now out, has residual weakness lt arm/leg and some lt facial droop. chronic kidney disease BPH, Uti, ROSA has Cpap but does not tolerate it no longer using it, gastric ulcer, soniya eye cataracts, past hxR foot 3rd toe osteomylitis, arthritis multiple joints, past gastric ulcer, past hx shingels. , History of Any Multi-Drug Resistant Organisms: None Reported Past Surgical History: Hernia Repair, Joint Replacement Additional Past Surgical History / Comment(s): 06/01/17 intracranial angioplasty- (pt stated "he has stents') HFH, EGD with peg tube insertion since removed, R inguinal hernia repair, R total knee arthroplasty, colonoscopies with last one in 2014-normal., Past Anesthesia/Blood Transfusion Reactions: No Reported Reaction Past Psychological History: No Psychological Hx Reported Smoking Status: Former smoker Past Alcohol Use History: None Reported Past Drug Use History: None Reported - Past Family History Mother Family Medical History: CVA/TIA, Diabetes Mellitus, Hyperlipidemia, Hypertension Father Family Medical History: CVA/TIA, Hypertension General Exam Limitations: no limitations General appearance: alert, in no apparent distress Head exam: Present: normocephalic Eye exam: Present: normal appearance, PERRL, EOMI. Absent: nystagmus ENT exam: Present: normal oropharynx Neck exam: Present: normal inspection Respiratory exam: Present: normal lung sounds bilaterally Cardiovascular Exam: Present: regular rate, normal rhythm GI/Abdominal exam: Present: soft. Absent: tenderness Extremities exam: Present: normal inspection Neurological exam: Present: alert, CN II-XII intact. Absent: motor sensory deficit Expanded Speech: Present: fluid speech Cranial nerves: EOM's Intact: Normal Sensory exam: Upper Extremity Light Touch: Normal, Lower Extremity Light Touch: Normal Motor strength exam: RUE: 5, LUE: 5, RLE: 5, LLE: 5 Psychiatric exam: Present: normal affect, normal mood Skin exam: Present: normal color Course Vital Signs 12/08/19 12/08/19 15:01 15:15 Temperature 98.1 F 98.1 F Pulse Rate 80 80 Respiratory 18 18 Rate Blood Pressure 116/66 118/65 O2 Sat by Pulse 97 99 Oximetry - Reevaluation(s) Reevaluation #1: 12/08/19 16:04 Case was earlier discussed with Dr. duarte EKG Findings - EKG Comments: EKG Findings:: Normal sinus rhythm at 82. GA 172. QRS 76. QT 380. QTC 443. Normal axis. Normal QRS. No acute ST change. Medical Decision Making - Medical Decision Making Kennedy reevaluated and updated. Case was discussed in detail with Dr. Dexter, who will admit covered for Dr. Luke. - Lab Data Result diagrams: 12/08/19 15:19 12/08/19 15:19 Lab Results 12/08/19 12/08/19 12/08/19 Range/Units 15:09 15:19 15:19 WBC 10.4 (3.8-10.6) k/uL RBC 3.66 L (4.30-5.90) m/uL Hgb 10.7 L (13.0-17.5) gm/dL Hct 34.6 L (39.0-53.0) % MCV 94.6 (80.0-100.0) fL MCH 29.2 (25.0-35.0) pg MCHC 30.8 L (31.0-37.0) g/dL RDW 17.5 H (11.5-15.5) % Plt Count 401 (150-450) k/uL Neutrophils % 86 % Lymphocytes % 7 % Monocytes % 4 % Eosinophils % 1 % Basophils % 1 % Neutrophils # 9.0 H (1.3-7.7) k/uL Lymphocytes # 0.7 L (1.0-4.8) k/uL Monocytes # 0.4 (0-1.0) k/uL Eosinophils # 0.1 (0-0.7) k/uL Basophils # 0.1 (0-0.2) k/uL Hypochromasia Slight Anisocytosis Slight PT (9.0-12.0) sec INR (<1.2) APTT (22.0-30.0) sec Sodium 136 L (137-145) mmol/L Potassium 5.0 (3.5-5.1) mmol/L Chloride 103 (98-107) mmol/L Carbon Dioxide 26 (22-30) mmol/L Anion Gap 7 mmol/L BUN 23 H (9-20) mg/dL Creatinine 1.46 H (0.66-1.25) mg/dL Est GFR (CKD-EPI)AfAm 56 (>60 ml/min/1.73 sqM) Est GFR (CKD-EPI)NonAf 48 (>60 ml/min/1.73 sqM) Glucose 147 H (74-99) mg/dL POC Glucose (mg/dL) 172 H (75-99) mg/dL POC Glu [employer] Supervisor ID Maria Fernanda Gregg Calcium 9.4 (8.4-10.2) mg/dL Total Bilirubin 0.5 (0.2-1.3) mg/dL AST 36 (17-59) U/L ALT 37 (4-49) U/L Alkaline Phosphatase 137 H (38-126) U/L Troponin I (0.000-0.034) ng/mL Total Protein 7.6 (6.3-8.2) g/dL Albumin 4.0 (3.5-5.0) g/dL 12/08/19 12/08/19 Range/Units 15:19 15:19 WBC (3.8-10.6) k/uL RBC (4.30-5.90) m/uL Hgb (13.0-17.5) gm/dL Hct (39.0-53.0) % MCV (80.0-100.0) fL MCH (25.0-35.0) pg MCHC (31.0-37.0) g/dL RDW (11.5-15.5) % Plt Count (150-450) k/uL Neutrophils % % Lymphocytes % % Monocytes % % Eosinophils % % Basophils % % Neutrophils # (1.3-7.7) k/uL Lymphocytes # (1.0-4.8) k/uL Monocytes # (0-1.0) k/uL Eosinophils # (0-0.7) k/uL Basophils # (0-0.2) k/uL Hypochromasia Anisocytosis PT 10.1 (9.0-12.0) sec INR 1.0 (<1.2) APTT 22.8 (22.0-30.0) sec Sodium (137-145) mmol/L Potassium (3.5-5.1) mmol/L Chloride (98-107) mmol/L Carbon Dioxide (22-30) mmol/L Anion Gap mmol/L BUN (9-20) mg/dL Creatinine (0.66-1.25) mg/dL Est GFR (CKD-EPI)AfAm (>60 ml/min/1.73 sqM) Est GFR (CKD-EPI)NonAf (>60 ml/min/1.73 sqM) Glucose (74-99) mg/dL POC Glucose (mg/dL) (75-99) mg/dL POC Glu [employer]ra[employer] Supervisor ID Calcium (8.4-10.2) mg/dL Total Bilirubin (0.2-1.3) mg/dL AST (17-59) U/L ALT (4-49) U/L Alkaline Phosphatase (38-126) U/L Troponin I <0.012 (0.000-0.034) ng/mL Total Protein (6.3-8.2) g/dL Albumin (3.5-5.0) g/dL - Radiology Data Radiology results: report reviewed (Computed tomography scan the brain and CTA d id not reveal acute abnormality) Disposition Clinical Impression: TIA (transient ischemic attack) Disposition: ADMITTED IP TO THIS HOSP Is patient prescribed a controlled substance at d/c from ED?: No Referrals: Rick Luke MD [Primary Care Provider] - 1-2 days Decision Time: 16:51
[2019-12-08 15:31] LABS: Anisocytosis Slight; Basophils # (A) 0.1 k/uL (0-0.2); Basophils % (A) 1 %; Eosinophils # (A) 0.1 k/uL (0-0.7); Eosinophils % (A) 1 %; HCT 34.6 % (39.0-53.0); HGB 10.7 gm/dL (13.0-17.5); Hypochromasia Slight; Lymphocytes # (A) 0.7 k/uL (1.0-4.8); Lymphocytes % (A) 7 %; MCH 29.2 pg (25.0-35.0); MCHC 30.8 g/dL (31.0-37.0); MCV 94.6 fL (80.0-100.0); Monocytes # (A) 0.4 k/uL (0-1.0); Monocytes % (A) 4 %; Neutrophils % (A) 86 %; Platelet Count 401 k/uL (150-450); RBC 3.66 m/uL (4.30-5.90); RDW 17.5 % (11.5-15.5); WBC 10.4 k/uL (3.8-10.6)
[2019-12-08 15:40] LABS: Calcium 9.4 mg/dL (8.4-10.2); Total Bilirubin 0.5 mg/dL (0.2-1.3); Total Protein 7.6 g/dL (6.3-8.2)
--- NOTE | 2019-12-08 15:42 | CT ---
EXAMINATION TYPE: CT brain wo con for TPA DATE OF EXAM: 12/08/2019 COMPARISON: 05/17/2019 INDICATION: Dizziness with history of Prior CVA DLP: 1102.8 mGycm, Automated exposure control for dose reduction was used. CONTRAST: None CT of the brain is performed utilizing 3 mm thick sections through the posterior fossa and 3 mm thick sections through the remaining calvarium. Study is performed within 24 hours of arrival to the hosp ital. No abnormal hyperdensity is present to suggest an acute intracranial hemorrhage. No mass lesion is evident. No acute infarcts are evident. There is diffuse periventricular white matter hypodensity, likely on t he basis of chronic white matter ischemic changes. Distribution appears similar to 05/17/2019. Ventricles and sulci are prominent for the patient age. Paranasal sinuses and mastoid air cells within the [id number] are clear. IMPRESSIONS: 1. Atrophy with periventricular white matter ischemic type changes.
[2019-12-08 15:47] LABS: Partial Thromboplastin Time 22.8 sec (22.0-30.0); Prothrombin Time 10.1 sec (9.0-12.0)
--- NOTE | 2019-12-08 16:14 | CT ---
EXAMINATION TYPE: CT angio head neck DATE OF EXAM: 12/08/2019 HISTORY: Left COMPARISON: None CT DLP: 4.6 mGycm. Automated Exposure Control for Dose Reduction was Utilized. TECHNIQUE: CTA scan of the neck is performed with IV Contrast, axial images are obtained, coronal an d sagittal reformatted images are reviewed. Three-D reconstructed images are created on an [employer] workstation and reviewed. Source images are reviewed. FINDINGS: Carotid/Vascular Structures: There is medial deviation of the distal left common carotid artery and p roximal internal carotid artery. Carotid bifurcations appear normal internal carotid arteries are pat ent to the carotid bifurcation. Vertebral arteries are codominant. Cervical of [place]: Vertebral basilar system appears normal. Posterior cerebral vasculature is unrema rkable. Internal carotid arteries bifurcate normally into A1 and M1 segments. A2 segments are normal. The anterior communicating artery is patent. Left Posterior communicating artery is patent. Right po sterior communicating artery is patent. IMPRESSION: 1. No flow-limiting stenosis bilateral carotid bifurcations. 2. Normal [place] of [place]
[2019-12-08] MEDS ORDERED: ASPIRIN 325 MG TAB PO STA (16:51)
--- NOTE | 2019-12-08 16:56 | XR ---
EXAMINATION TYPE: XR chest 2V DATE OF EXAM: 12/08/2019 COMPARISON: 06/07/2019 INDICATION: Altered mental status TECHNIQUE: Frontal and lateral views of the chest are obtained. FINDINGS: The heart size is normal. The pulmonary vasculature is normal. The lungs are clear. Loop recorder is on the left IMPRESSION: 1. No acute pulmonary process.
[2019-12-08] MEDS: SODIUM CHLORIDE 0.9% 1,000 ML IV SCH (17:00)
[2019-12-08] MEDS ORDERED: BISACODYL 10 MG SUPP RECTAL PRN (21:40)
[2019-12-08] MEDS ORDERED: NA PHOS,M-B/NA PHOS,DI-BA 133 ML ENEMA RECTAL PRN (21:40)
[2019-12-08] MEDS ORDERED: MAGNESIUM HYDROXIDE 2,400 MG/10 ML CUP PO PRN (21:40)
--- NOTE | 2019-12-09 00:06 | P.HPIM ---
History of Present Illness H&P Date: 12/08/19 Chief Complaint: Acute confusion History of presenting complaint.: This is a 68-year-old patient of Dr. chacko. Chronic stable medical conditions include GERD, hyperlipidemia, hypertension, primary osteoarthritis, left hemiparesis from prior stroke, BPH, obstructive sleep apnea does not use CPAP, chronic kidney dysfunction uses a cane/walker, stents in the brain. Patient did present to the hospital on November 25 and was found to have left scrotal abscess. Underwent I&D by Dr. dsouza from urology.Cultures positive for Proteus mirabilis. Receiving antibiotics for the same. Discharge on December 01. Admitted to rehab/ECF. [facility] the [facility]. Patient was unusually long in the bathroom. Decided to go in. Patient was standing of with his pants down, stool in the pants, confused at was called in and patient was taken to the bed. This episode lasted for about 10 minutes. Patient then went back to his normal self. There was no tongue biting. Patient currently feels back to his normal self. Review of systems: GEN.: Tired EYES: None HEENT: None NECK: None RESPIRATORY: None CARDIOVASCULAR: None GASTROINTESTINAL: None GENITOURINARY: As above MUSCULOSKELETAL: Some joint pains LYMPHATICS: None HEMATOLOGICAL: None PSYCHIATRY: None NEUROLOGICAL: Left-sided weakness, chronic. Rest as above Past history to include: GERD, hyperlipidemia, hypertension, primary osteoarthritis, left hemiparesis from prior stroke in 2017 and dysphagia did have a PEG tube temporarily., BPH, obstructive sleep apnea but does not use CPAP, gait dysfunction, some stents of the brain Social history: . Does use a cane and a walker. No alcohol since 2016. Patient smoked for 50 years a pack a day stopped in 2016. On examination: VITAL SIGNS: 97.7, 72, 16, 142/82, 100% GENERAL APPEARANCE: Propped up in bed, comfortable HEENT: Normal external appearance of nose and ear. Oral cavity normal EYES: Pupils equal. Conjunctiva normal. NECK: JVD not raised. Mass not palpable. RESPIRATORY: Respiratory effort normal. Lungs decreased breath sounds. CARDIOVASCULAR: First and second sounds normal. No edema. ABDOMEN: Soft. Liver and spleen not palpable. No tenderness. No mass palpable, PSYCHIATRY: Alert and oriented x3. Mood and affect normal. NEUROLOGICAL: Left-sided weakness power 3/5 INVESTIGATIONS, reviewed in the clinical context: White count 10.4 hemoglobin 10.7 potassium 5.0 bun 23 creatinine 1.46 Patient's labs from November 28 bun 10 creatinine 0.96 Computed tomography scan of the brain-shows atrophy with chronic changes CT angiogram of the brain-negative EKG tracing personally reviewed by me-normal sinus rhythm nonspecific findings Assessment: -Episode of acute confusion, lasting about 10 minutes, patient is incontinent of stool. Patient had a prior history of stroke. Differential includes TIA versus seizure activity -Acute kidney injury, possible ATN patient is on naproxen -GERD -Hyperlipidemia -Essential hypertension -Primary osteoarthritis -Normocytic anemia. Cause unknown. For further workup as an outpatient. -Left hemiparesis from a prior stroke -BPH -Obstructive sleep apnea does not use a CPAP -Chronic gait dysfunction uses a cane/walker -Stents in the brain Plan: Neurology was consulted. Neuro checks will be done. We will do an EEG. Give IV fluids. DC naproxen. Other home medications to continue. Cut back the dose of ciprofloxacin to 250 mg daily Past Medical History Past Medical History: COPD, CVA/TIA, Eye Disorder, GERD/Reflux, Hyperlipidemia, Hypertension, Osteoarthritis (OA), Prostate Disorder, Renal Disease, Sleep Apnea/CPAP/BIPAP, Syncope Additional Past Medical History / Comment(s): pt is rt side dominant. hx ofMultiple TIAs, CVA 01/2017 with dysphagia-peg tube inserted and now out, has residual weakness lt arm/leg and some lt facial droop. chronic kidney disease BPH, Uti, ROSA has Cpap but does not tolerate it no longer using it, gastric ulcer, soniya eye cataracts, past hxR foot 3rd toe osteomylitis, arthritis multiple joints, past gastric ulcer, past hx shingels. , History of Any Multi-Drug Resistant Organisms: None Reported Past Surgical History: Hernia Repair, Joint Replacement Additional Past Surgical History / Comment(s): 06/01/17 intracranial angioplasty- (pt stated "he has stents') HFH, EGD with peg tube insertion since removed, R inguinal hernia repair, R total knee arthroplasty, colonoscopies with last one in 2014-normal., Past Anesthesia/Blood Transfusion Reactions: No Reported Reaction Past Psychological History: No Psychological Hx Reported Additional Psychological History / Comment(s): Pt lives with his in 2 story home that has 4 front porch steps. Pt stays on first level. No pets. No home care services. Pt uses a cane/walker to ambulate. Pt no longer drives, his spouse drives him to appts. Smoking Status: Former smoker Past Alcohol Use History: None Reported Additional Past Alcohol Use History / Comment(s): started smoking 1963. quit 2015 smoked 1 ppd, no alcohol since 2015 Past Drug Use History: None Reported - Past Family History Mother Family Medical History: CVA/TIA, Diabetes Mellitus, Hyperlipidemia, Hypertension Father Family Medical History: CVA/TIA, Hypertension Medications and Allergies Home Medications Medication Instructions Recorded Confirmed Type Atorvastatin [Lipitor] 80 mg PO HS@2100 05/26/17 12/08/19 History Tamsulosin HCl [Flomax] 0.4 mg PO DAILY@0805/26/17 12/08/19 History Sertraline [Zoloft] 25 mg PO DAILY@0800 08/28/17 12/08/19 History Aspirin EC [Ecotrin Low Dose] 81 mg PO DAILY@0800 02/12/18 12/08/19 History Calcitriol 0.25 mcg PO TUTH@1700 10/07/18 12/08/19 History Mirabegron [Myrbetriq] 50 mg PO DAILY@0800 05/17/19 12/08/19 History Bisacodyl [Dulcolax] 10 mg RECTAL DAILY PRN 12/08/19 12/08/19 History Ciprofloxacin HCl [Cipro] 750 mg PO BID@0800,1700 12/08/19 12/08/19 History Clopidogrel [Plavix] 75 mg PO DAILY@0812/08/19 12/08/19 History Magnesium Hydroxide [Milk of 7,200 mg PO DAILY PRN 12/08/19 12/08/19 History Magnesia Concentrate] Midodrine HCl [ProAmantine] 2.5 mg PO TID@0800,1200,1700 12/08/19 12/08/19 History Na Phos,M-B/Na Phos,Di-Ba [Fleet 133 ml RECTAL DAILY PRN 12/08/19 12/08/19 History Adult] Naproxen 250 mg PO TID@0800,1200,1700 12/08/19 12/08/19 History amLODIPine [Norvasc] 5 mg PO DAILY@0800 12/08/19 12/08/19 History Allergies Allergy/AdvReac Type Severity Reaction Status Date / Time No Known Allergies Allergy Verified 12/08/19 18:52 Physical Exam Vitals: Vital Signs Temp Pulse Pulse Resp BP BP Pulse Ox 12/08/19 20:00 97.7 F 72 16 142/82 100 12/08/19 19:33 17 12/08/19 18:37 98.0 F 72 18 138/80 100 12/08/19 17:00 79 17 130/77 99 12/08/19 16:45 78 18 122/79 99 12/08/19 16:30 79 17 116/72 100 12/08/19 16:15 80 18 120/74 100 12/08/19 16:00 98.2 F 78 19 116/68 100 12/08/19 15:45 82 18 119/69 100 12/08/19 15:15 98.1 F 80 18 118/65 99 12/08/19 15:01 98.1 F 80 18 116/66 97 Intake and Output 12/08/19 12/08/19 12/09/19 14:59 22:59 06:59 Other: Weight 87.453 kg Results CBC & Chem 7: 12/08/19 15:19 12/08/19 15:19 Labs: Abnormal Lab Results - Last 24 Hours (Table) 12/08/19 12/08/19 12/08/19 Range/Units 15:09 15:19 15:19 RBC 3.66 L (4.30-5.90) m/uL Hgb 10.7 L (13.0-17.5) gm/dL Hct 34.6 L (39.0-53.0) % MCHC 30.8 L (31.0-37.0) g/dL RDW 17.5 H (11.5-15.5) % Neutrophils # 9.0 H (1.3-7.7) k/uL Lymphocytes # 0.7 L (1.0-4.8) k/uL Sodium 136 L (137-145) mmol/L BUN 23 H (9-20) mg/dL Creatinine 1.46 H (0.66-1.25) mg/dL Glucose 147 H (74-99) mg/dL POC Glucose (mg/dL) 172 H (75-99) mg/dL Alkaline Phosphatase 137 H (38-126) U/L
[2019-12-09] MEDS: SODIUM CHLORIDE 0.9% 1,000 ML IV SCH ×3 (04:22→21:28)
[2019-12-09 06:59] LABS: Calcium 8.7 mg/dL (8.4-10.2); Potassium 3.4 mmol/L (3.5-5.1)
[2019-12-09] MEDS ORDERED: NAPROXEN 250 MG TAB PO SCH (08:00)
[2019-12-09] MEDS ORDERED: CIPROFLOXACIN HCL 250 MG TAB PO SCH (08:00)
[2019-12-09] MEDS ORDERED: NON FORMULARY DRUG (Aspirin Ec 81 MG) PO SCH (08:00)
[2019-12-09] MEDS: CIPROFLOXACIN HCL 250 MG TAB PO SCH ×2 (08:11→20:08)
[2019-12-09] MEDS: ASPIRIN 81 MG PO SCH (08:11)
[2019-12-09] MEDS: TAMSULOSIN 0.4 MG CAP.ER.24H PO SCH (08:11)
[2019-12-09] MEDS: SERTRALINE 25 MG TAB PO SCH (08:11)
[2019-12-09] MEDS: amLODIPine 5 MG TAB PO SCH (08:11)
[2019-12-09] MEDS: CLOPIDOGREL 75 MG TAB PO SCH (08:12)
[2019-12-09] MEDS: MIDODRINE 5 MG TAB PO SCH ×3 (08:12→16:18)
[2019-12-09] MEDS: ENOXAPARIN 40 MG/0.4 ML SYRINGE SQ SCH (08:12)
[2019-12-09] MEDS: Mirabegron [Myrbetriq] 50 MG PO SCH (08:12)
[2019-12-09] MEDS ORDERED: ASPIRIN 325 MG TAB PO SCH (09:00)
--- NOTE | 2019-12-09 13:01 | ECHOF ---
Referral Reason:Thrombus MEASUREMENTS -------- HEIGHT: 188.0 cm WEIGHT: 87.1 kg BP: 153/75 RVIDd: 3.5 cm (< 3.3) IVSd: 1.6 cm (0.6 - 1.1) LVIDd: 4.1 cm (3.9 - 5.3) LVPWd: 1.5 cm (0.6 - 1.1) IVSs: 2.3 cm LVIDs: 2.7 cm LVPWs: 2.1 cm LA Diam: 3.5 cm (2.7 - 3.8) LAESV Index (A-L): 35.03 ml/m Ao Diam: 3.6 cm (2.0 - 3.7) AV Cusp: 2.3 cm (1.5 - 2.6) MV EXCURSION: 14.230 mm (> 18.000) MV EF SLOPE: 59 mm/s (70 - 150) EPSS: 0.5 cm MV E Shine: 0.91 m/s MV DecT: 275 ms MV A Shine: 1.18 m/s MV E/A Ratio: 0.78 FINDINGS -------- Sinus rhythm. This was a technically good study. The left ventricular size is normal. There is moderate concentric left ventricular hypertrophy. O verall left ventricular systolic function is normal with, an EF between 60 - 65 %. The right ventricle is mildly enlarged. LA is severely dilated >40 ml/m2 The right atrium is normal in size. Interatrial and interventricular septum intact. Aortic valve is trileaflet and is mildly thickened. The mitral valve leaflets are mildly thickened. The tricuspid valve appears structurally normal. Trace/mild (physiologic) pulmonic regurgitation. The aortic root size is normal. Normal inferior vena cava with normal inspiratory collapse consistent with estimated right atrial pre ssure of 5 mmHg. There is no pericardial effusion. CONCLUSIONS -------- 1. Sinus rhythm. 2. This was a technically good study. 3. The left ventricular size is normal. 4. There is moderate concentric left ventricular hypertrophy. 5. Overall left ventricular systolic function is normal with, an EF between 60 - 65 %. 6. The right ventricle is mildly enlarged. 7. LA is severely dilated >40 ml/m2 8. The right atrium is normal in size. 9. Interatrial and interventricular septum intact. 10. Aortic valve is trileaflet and is mildly thickened. 11. The mitral valve leaflets are mildly thickened. 12. The tricuspid valve appears structurally normal. 13. Trace/mild (physiologic) pulmonic regurgitation. 14. The aortic root size is normal. 15. Normal inferior vena cava with normal inspiratory collapse consistent with estimated right atrial pressure of 5 mmHg. 16. There is no pericardial effusion. LEGAL MANAGER: Aviva Leone RDCS
--- NOTE | 2019-12-09 16:45 | P.CNNES ---
History of Present Illness Consult date: 12/09/19 Requesting physician: Danie Helton Reason for Consult: TIA History of Present Illness: Patient is a 68-year-old male who was brought to the hospital from [facility], for possible TIA. Patient lives at home, has gone to [facility] for rehabilitation. Patient yesterday went to the bathroom. He stayed there for 15-20 minutes, which is longer than usual. His went in there, to find him standing at the bathroom, pants residential down, slobbering, confused. Patient's daughter asked what her name was, to check his speech, and he did state her name correctly. Patient had messed up his pants with loss of bowel and bladder control. She took him to the bathroom and cleaned him up. He was still complaining of dizzy. This episode lasted for about 10 minutes. He was brought to the hospital. When he arrived, his blood pressure was 116/66, pulse rate 80, saturation 97%. Patient underwent computed tomography scan of the head, which revealed atrophy with periventricular white matter ischemic changes. On my review, there is evidence of small old lacunar stroke involving the right internal capsule, and adjacent to the right caudate, and the left external capsule. CTA of head and neck showed no flow-limiting stenosis bilateral carotid bifurcations. Normal [place] of [place]. EKG showed normal sinus rhythm with nonspecific T-wave abnormality. 2-D echo showed sinus rhythm. Moderate concentric LVH. EF 60- 65%. Left atrium is severely dilated. Right ventricle is mildly enlarged. Interatrial and interventricular septum intact. Patient's WBC normal, hemoglobin 10.7 platelets 401. Sodium 135 potassium 3.4 renal functions normal. Hemoglobin A1c 6.1 previously on 05/28/2017. Liver panel normal. Total cho lesterol 123, LDL 77, HDL 35 and triglycerides 53. Homocystine 8.24. Patient had another episode today, when his asked him to go to the bathroom to use the bathroom. Patient again was standing, and lost control of bowels and bladder before he could go to the toilet. He was somewhat confused, but there was no dizziness with this episode. Patient has been on telemetry monitoring. Patient has been in normal sinus rhythm with frequent PVCs. No atrial fibrillation detected so far. Patient's 5 also states that patient has history of 3 strokes in the past. 2 of them occurred in the same year, 3 years ago. He has some left-sided weakness since then. Patient had 90% blockage of one of the arteries on the right for which he underwent stenting at [facility]. He had another stroke in 2018. Patient currently is on dual antiplatelet medications. Patient has hypertension, but no diabetes. Patient started smoking since he was age 21. He was not a very heavy smoker until he retired in 2004, when he started smoking more than one pack per day. He quit smoking 3 years ago. Denies any alcohol. Patient follows up with Dr. Mcghee. 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 Denies any chest pain shortness of breath wheezing or cough. Denies any abdominal pain nausea vomiting diarrhea. Patient is slightly decreased hearing. Patient has gait problem, difficulty controlling urine, incontinence at night. Past Medical History Past Medical History: COPD, CVA/TIA, Eye Disorder, GERD/Reflux, Hyperlipidemia, Hypertension, Osteoarthritis (OA), Prostate Disorder, Renal Disease, Sleep Apnea/CPAP/BIPAP, Syncope Additional Past Medical History / Comment(s): pt is rt side dominant. hx ofMultiple TIAs, CVA 01/2017 with dysphagia-peg tube inserted and now out, has residual weakness lt arm/leg and some lt facial droop. chronic kidney disease BPH, Uti, ROSA has Cpap but does not tolerate it no longer using it, gastric ulcer, soniya eye cataracts, past hxR foot 3rd toe osteomylitis, arthritis multiple joints, past gastric ulcer, past hx shingels. , History of Any Multi-Drug Resistant Organisms: None Reported Past Surgical History: Hernia Repair, Joint Replacement Additional Past Surgical History / Comment(s): 06/01/17 intracranial angioplasty- (pt stated "he has stents') HFH, EGD with peg tube insertion since removed, R inguinal hernia repair, R total knee arthroplasty, colonoscopies with last one in 2014-normal., Past Anesthesia/Blood Transfusion Reactions: No Reported Reaction Past Psychological History: No Psychological Hx Reported Additional Psychological History / Comment(s): Pt lives with his in 2 story home that has 4 front porch steps. Pt stays on first level. No pets. No home care services. Pt uses a cane/walker to ambulate. Pt no longer drives, his spouse drives him to appts. Smoking Status: Former smoker Past Alcohol Use History: None Reported Additional Past Alcohol Use History / Comment(s): started smoking 1963. quit 2016 smoked 1 ppd, no alcohol since 2015 Past Drug Use History: None Reported - Past Family History Mother Family Medical History: CVA/TIA, Diabetes Mellitus, Hyperlipidemia, Hypertension Father Family Medical History: CVA/TIA, Hypertension Medications and Allergies Home Medications Medication Instructions Recorded Confirmed Type Atorvastatin [Lipitor] 80 mg PO HS@2100 05/26/17 12/08/19 History Tamsulosin HCl [Flomax] 0.4 mg PO DAILY@0800 05/26/17 12/08/19 History Sertraline [Zoloft] 25 mg PO DAILY@0800 08/28/17 12/08/19 History Aspirin EC [Ecotrin Low Dose] 81 mg PO DAILY@0800 02/12/18 12/08/19 History Calcitriol 0.25 mcg PO TUTH@1700 10/07/18 12/08/19 History Mirabegron [Myrbetriq] 50 mg PO DAILY@0800 05/17/12/08/19 History Bisacodyl [Dulcolax] 10 mg RECTAL DAILY PRN 12/08/19 12/08/19 History Ciprofloxacin HCl [Cipro] 750 mg PO BID@0800,1700 12/08/19 12/08/19 History Clopidogrel [Plavix] 75 mg PO DAILY@0800 12/08/19 12/08/19 History Magnesium Hydroxide [Milk of 7,200 mg PO DAILY PRN 12/08/19 12/08/19 History Magnesia Concentrate] Midodrine HCl [ProAmantine] 2.5 mg PO TID@0800,1200,1700 12/08/19 12/08/19 History Na Phos,M-B/Na Phos,Di-Ba [Fleet 133 ml RECTAL DAILY PRN 12/08/19 12/08/19 History Adult] Naproxen 250 mg PO TID@0800,1200,1700 12/08/19 12/08/19 History amLODIPine [Norvasc] 5 mg PO DAILY@0800 12/08/19 12/08/19 History Allergies Allergy/AdvReac Type Severity Reaction Status Date / Time No Known Allergies Allergy Verified 12/08/19 18:52 Physical Examination - Vital Signs Vital Signs: Vital Signs Temp Pulse Pulse Resp BP BP Pulse Ox 12/09/19 11:36 73 20 135/77 97 12/09/19 08:00 98.2 F 76 20 142/68 96 12/09/19 03:15 97.9 F 69 16 153/75 97 12/09/19 00:00 98 F 74 16 150/71 100 12/08/19 20:00 97.7 F 72 16 142/82 100 12/08/19 19:33 17 12/08/19 18:37 98.0 F 72 18 138/80 100 12/08/19 17:00 79 17 130/77 99 12/08/19 16:45 78 18 122/79 99 12/08/19 16:30 79 17 116/72 100 12/08/19 16:15 80 18 120/74 100 12/08/19 16:00 98.2 F 78 19 116/68 100 12/08/19 15:45 82 18 119/69 100 12/08/19 15:15 98.1 F 80 18 118/65 99 12/08/19 15:01 98.1 F 80 18 116/66 97 Intake and Output 12/08/19 12/09/19 12/09/19 22:59 06:59 14:59 Intake Total 240 Output Total 200 Balance -200 240 Intake: Oral 240 Output: Urine 200 Other: Voiding Method Urinal Weight 87.453 kg On examination patient is an elderly male, in no distress. Patient is alert and awake. Patient knows that it is simply 2020, and that he is in [place] in [facility] in [place]. He knows name of the current president. Speech and language functions are normal. On cranial nerve examination pupils are round and reactive to light, visual fierro are full on confrontation, extraocular muscles are intact with no nystagmus. Face has very minimal left- sided asymmetry. Tongue protrudes the midline. Palatal elevation sensation normal. Hearing is slightly decreased. On muscle strength testing patient has mild left upper and pronation. The strength appears otherwise normal in the arms and legs distally and proximally. Reflexes are symmetric and plantars downgoing. Sensory touch is equal. There are no ataxia for [id number] testing. Tone and bulk of muscles normal. No obvious bruit S1 and S2 audible. Results - Laboratory Findings CBC and BMP: 12/08/19 15:19 12/09/19 05:59 Abnormal Lab Findings: Abnormal Labs 12/08/19 12/08/19 12/08/19 15:09 15:19 15:19 RBC 3.66 L Hgb 10.7 L Hct 34.6 L MCHC 30.8 L RDW 17.5 H Neutrophils # 9.0 H Lymphocytes # 0.7 L Sodium 136 L Potassium BUN 23 H Creatinine 1.46 H Glucose 147 H POC Glucose (mg/dL) 172 H Alkaline Phosphatase 137 H HDL Cholesterol 12/09/19 05:59 RBC Hgb Hct MCHC RDW Neutrophils # Lymphocytes # Sodium 135 L Potassium 3.4 L BUN Creatinine Glucose POC Glucose (mg/dL) Alkaline Phosphatase HDL Cholesterol 35 L Assessment and Plan Assessment: * 68-year-old male admitted with an episode of altered mental status, with slobbering, confusion, dizziness, lasting for about 10 minutes. Rule out TIA. Rule out focal seizure. * History of CVA in the past. * Hypertension * X tobacco user Plan: * Patient has embolic workup performed, which is negative including CTA of head and neck. His 2-D echo shows severely enlarged left atrium, but his rhythm has been normal so far. Suggest placement of the loop recorder to rule out paroxysmal atrial fibrillation. * We will check an EEG to rule out any epileptiform activity. * Patient will be continued on dual antiplatelet medication and statins. * We will check hemoglobin A1c. * Discussed with patient and his in detail.
[2019-12-09] MEDS ORDERED: CALCITRIOL 0.25 MCG CAP PO SCH (17:00)
--- NOTE | 2019-12-09 18:11 | P.PN ---
Progress Note - Text Progress Note Date: 12/09/19 Chief Complaint: Acute confusion History of presenting complaint.: This is a 68-year-old patient of Dr. chacko. Chronic stable medical conditions include GERD, hyperlipidemia, hypertension, primary osteoarthritis, left hemiparesis from prior stroke, BPH, obstructive sleep apnea does not use CPAP, chronic kidney dysfunction uses a cane/walker, stents in the brain. Patient did present to the hospital on November 25 and was found to have left scrotal abscess. Underwent I&D by Dr. dsouza from urology.Cultures positive for Proteus mirabilis. Receiving antibiotics for the same. Discharge on December 01. Admitted to rehab/ECF. Today the is at EC. Patient was unusually long in the bathroom. Decided to go in. Patient was standing of with his pants down, stool in the pants, confused at was called in and patient was taken to the bed. This episode lasted for about 10 minutes. Patient then went back to his normal self. There was no tongue biting. Patient currently feels back to his normal self. Today-patient's had no further episodes. Neuro workup is currently back negative. Starting a diet. Review of systems: Was done for constitutional, cardiovascular, GI, pulmonary. Neurological relevant finding as above Active Medications Amlodipine Besylate (Norvasc) 5 mg PO DAILY@0800 [facility] Last Admin: 12/09/19 08:11 Dose: 5 mg Documented by: Aspirin (Aspirin) 81 mg PO DAILY [facility] Last Admin: 12/09/19 08:11 Dose: 81 mg Documented by: Atorvastatin Calcium (Lipitor) 80 mg PO HS@2100 [facility] Bisacodyl (Dulcolax) 10 mg RECTAL DAILY PRN PRN Reason: Constipation Calcitriol (Rocaltrol) 0.25 mcg PO TUTH@1700 [facility] Last Admin: 12/09/19 17:09 Dose: 0.25 mcg Documented by: Ciprofloxacin (Cipro) 250 mg PO BID [facility] Last Admin: 12/09/19 08:11 Dose: 250 mg Documented by: Clopidogrel Bisulfate (Plavix) 75 mg PO DAILY@0800 [facility] Last Admin: 12/09/19 08:12 Dose: 75 mg Documented by: Enoxaparin Sodium (Lovenox) 40 mg SQ DAILY [facility] Last Admin: 12/09/19 08:12 Dose: 40 mg Documented by: Sodium Chloride (Saline 0.9%) 1,000 mls @ 100 mls/hr IV .Q10H [facility] Last Admin: 12/09/19 11:51 Dose: Not Given Documented by: Magnesium Hydroxide (Milk Of Magnesia) 2,400 mg PO DAILY PRN PRN Reason: Constipation Midodrine (Proamatine) 2.5 mg PO TID@0800,1200,1700 [facility] Last Admin: 12/09/19 16:18 Dose: Not Given Documented by: Mirabegron [ (Myrbetriq] 50 Mg) 50 mg PO DAILY@0800 [facility] Last Admin: 12/09/19 08:12 Dose: Not Given Documented by: Sertraline HCl (Zoloft) 25 mg PO DAILY@0800 [facility] Last Admin: 12/09/19 08:11 Dose: 25 mg Documented by: Sodium Biphosphate/Sodium Phosphate (Fleet Adult) 133 ml RECTAL DAILY PRN PRN Reason: Constipation Tamsulosin HCl (Flomax) 0.4 mg PO DAILY@0800 [facility] Last Admin: 12/09/19 08:11 Dose: 0.4 mg Documented by: On examination: VITAL SIGNS: 98.2-76-20-142/68-96% on room air GENERAL APPEARANCE: Sitting up, comfortable HEENT: Normal external appearance of nose and ear. Oral cavity normal EYES: Pupils equal. Conjunctiva normal. NECK: JVD not raised. Mass not palpable. RESPIRATORY: Respiratory effort normal. Lungs decreased breath sounds. CARDIOVASCULAR: First and second sounds normal. No edema. ABDOMEN: Soft. Liver and spleen not palpable. No tenderness. No mass palpable, PSYCHIATRY: Alert and oriented x3. Mood and affect normal. NEUROLOGICAL: Left-sided weakness power 3/5 INVESTIGATIONS, reviewed in the clinical context: Potassium 3.4, bun 20, creatinine 1.21 2-D echo-year 60-65%, moderate concentric left medical hypertrophy Previous testing White count 10.4 hemoglobin 10.7 potassium 5.0 bun 23 creatinine 1.46 Patient's labs from November 28 bun 10 creatinine 0.96 Computed tomography scan of the brain-shows atrophy with chronic changes CT angiogram of the brain-negative EKG tracing personally reviewed by me-normal sinus rhythm nonspecific findings Assessment: -Episode of acute confusion, lasting about 10 minutes, patient is incontinent of stool. Patient had a prior history of stroke. Differential includes TIA versus seizure activity. EEG pending. -Acute kidney injury, possible ATN patient is on naproxen, improving -GERD -Hyperlipidemia -Essential hypertension -Primary osteoarthritis -Normocytic anemia. Cause unknown. For further workup as an outpatient. -Left hemiparesis from a prior stroke -BPH -Obstructive sleep apnea does not use a CPAP -Chronic gait dysfunction uses a cane/walker -Stents in the brain Plan: EEG pending. Patient possibly need a event monitor as an outpatient. Discussed with the patient. PTOT involved.
[2019-12-09 18:17] LABS: Appearance,Urine Clear (Clear); Bilirubin,Urine Negative (Negative); Blood,Urine Negative (Negative); Color,Urine Light Yellow; Glucose,Urine (UA) Negative (Negative); Ketones,Urine Negative (Negative); Leukocyte Esterase,Urine Negative (Negative); Nitrite,Urine Negative (Negative); Protein,Urine Negative (Negative); Specific Gravity,Urine 1.016 (1.001-1.035); Urobilinogen,Urine <2.0 mg/dL (<2.0)
[2019-12-09] MEDS ORDERED: ATORVASTATIN 80 MG TAB PO SCH (21:00)
[2019-12-10 01:41] LABS: Hemoglobin A1C 5.8 % (4.0-6.0)
[2019-12-10 04:39] VITALS: TEMP 97.8
[2019-12-10] MEDS: Mirabegron [Myrbetriq] 50 MG PO SCH (08:48)
[2019-12-10] MEDS: ASPIRIN 81 MG PO SCH (08:54)
[2019-12-10] MEDS: CLOPIDOGREL 75 MG TAB PO SCH (08:54)
[2019-12-10] MEDS: SODIUM CHLORIDE 0.9% 1,000 ML IV SCH ×2 (08:55→17:05)
[2019-12-10] MEDS: SERTRALINE 25 MG TAB PO SCH (08:55)
[2019-12-10] MEDS: MIDODRINE 5 MG TAB PO SCH ×3 (08:55→16:58)
[2019-12-10] MEDS: CIPROFLOXACIN HCL 250 MG TAB PO SCH (08:55)
[2019-12-10] MEDS: TAMSULOSIN 0.4 MG CAP.ER.24H PO SCH (08:55)
[2019-12-10] MEDS: ENOXAPARIN 40 MG/0.4 ML SYRINGE SQ SCH (08:55)
[2019-12-10] MEDS: amLODIPine 5 MG TAB PO SCH (08:55)
--- NOTE | 2019-12-10 12:49 | P.DS ---
Providers Date of admission: 12/08/19 16:52 Expected date of discharge: 12/10/19 Attending physician: Adams Dexter Consults: 12/08/19 16:53 Consult Physician Urgent Consulting Provider: Vero Romero Consult Reason/Comments: tia Do you want consulting provider notified?: Yes Primary care physician: Rick Luke [facility] Course: Chief Complaint: Acute confusion History of presenting complaint.: This is a 68-year-old patient of Dr. luke. Chronic stable medical conditions include GERD, hyperlipidemia, hypertension, primary osteoarthritis, left he miparesis from prior stroke, BPH, obstructive sleep apnea does not use CPAP, chronic kidney dysfunction uses a cane/walker, stents in the brain. Patient did present to the hospital on November 25 and was found to have left scrotal abscess. Underwent I&D by Dr. dsouza from urology.Cultures positive for Proteus mirabilis. Receiving antibiotics for the same. Discharge on December 01. Admitted to rehab/ECF. Today the is at ECF. Patient was unusually long in the bathroom. Decided to go in. Patient was standing of with his pants down, stool in the pants, confused at was called in and patient was taken to the bed. This episode lasted for about 10 minutes. Patient then went back to his normal self. There was no tongue biting. Patient currently feels back to his normal self. Admitted with a diagnosis of TIA versus seizure. No further episodes in the hospital. Computed tomography scan of the brain and CT angiogram of the brain were both negative. EKG was pending. Otherwise patient did rather well. Also had acute renal failure felt to be prerenal. Corrected. Today-stable. No new issues. Consultation: Dr. Blake from neurology On examination: VITAL SIGNS: 97.8, 73, 16, 123/80, 96% room air GENERAL APPEARANCE: Sitting up, comfortable HEENT: Normal external appearance of nose and ear. Oral cavity normal EYES: Pupils equal. Conjunctiva normal. NECK: JVD not raised. Mass not palpable. RESPIRATORY: Respiratory effort normal. Lungs decreased breath sounds. CARDIOVASCULAR: First and second sounds normal. No edema. ABDOMEN: Soft. Liver and spleen not palpable. No tenderness. No mass palpable, PSYCHIATRY: Alert and oriented x3. Mood and affect normal. NEUROLOGICAL: Left-sided weakness power 3/5 INVESTIGATIONS, reviewed in the clinical context: Potassium 3.4, bun 20, creatinine 1.21 2-D echo-year 60-65%, moderate concentric left medical hypertrophy Previous testing White count 10.4 hemoglobin 10.7 potassium 5.0 bun 23 creatinine 1.46 Patient's labs from November 28 bun 10 creatinine 0.96 Computed tomography scan of the brain-shows atrophy with chronic changes CT angiogram of the brain-negative EKG tracing personally reviewed by me-normal sinus rhythm nonspecific findings Assessment: -Episode of acute confusion, lasting about 10 minutes, patient is incontinent of stool. Patient had a prior history of stroke. Possibly TIA -Acute kidney injury, possible ATN patient is on naproxen, improved -GERD -Hyperlipidemia -Essential hypertension -Primary osteoarthritis -Normocytic anemia. Cause unknown. For further workup as an outpatient. -Left hemiparesis from a prior stroke -BPH -Obstructive sleep apnea does not use a CPAP -Chronic gait dysfunction uses a cane/walker -Stents in the brain Disposition: ECF/[place] Patient Condition at Discharge: Stable Plan - Discharge Summary Discharge Rx Participant: No New Discharge Prescriptions: No Action Atorvastatin [Lipitor] 80 mg PO HS@2100 Tamsulosin HCl [Flomax] 0.4 mg PO DAILY@0800 Sertraline [Zoloft] 25 mg PO DAILY@0800 Aspirin EC [Ecotrin Low Dose] 81 mg PO DAILY@0800 Calcitriol 0.25 mcg PO TUTH@1700 Mirabegron [Myrbetriq] 50 mg PO DAILY@0800 Naproxen 250 mg PO TID@0800,1200,1700 Na Phos,M-B/Na Phos,Di-Ba [Fleet Adult] 133 ml RECTAL DAILY PRN PRN Reason: Constipation Bisacodyl [Dulcolax] 10 mg RECTAL DAILY PRN PRN Reason: Constipation Midodrine HCl [ProAmantine] 2.5 mg PO TID@0800,1200,1700 Ciprofloxacin HCl [Cipro] 750 mg PO BID@0800,1700 Clopidogrel [Plavix] 75 mg PO DAILY@0800 amLODIPine [Norvasc] 5 mg PO DAILY@0800 Magnesium Hydroxide [Milk of Magnesia Concentrate] 7,200 mg PO DAILY PRN PRN Reason: Constipation Discharge Medication List Atorvastatin [Lipitor] 80 mg PO HS@2100 05/26/17 [History] Tamsulosin HCl [Flomax] 0.4 mg PO DAILY@0800 05/26/17 [History] Sertraline [Zoloft] 25 mg PO DAILY@0808/28/17 [History] Aspirin EC [Ecotrin Low Dose] 81 mg PO DAILY@0800 02/12/18 [History] Calcitriol 0.25 mcg PO TUTH@1700 10/07/18 [History] Mirabegron [Myrbetriq] 50 mg PO DAILY@0805/17/19 [History] Bisacodyl [Dulcolax] 10 mg RECTAL DAILY PRN 12/08/19 [History] Ciprofloxacin HCl [Cipro] 750 mg PO BID@0800,1700 12/08/19 [History] Clopidogrel [Plavix] 75 mg PO DAILY@79912/08/19 [History] Magnesium Hydroxide [Milk of Magnesia Concentrate] 7,200 mg PO DAILY PRN 12/08/19 [History] Midodrine HCl [ProAmantine] 2.5 mg PO TID@0800,1200,1700 12/08/19 [History] Na Phos,M-B/Na Phos,Di-Ba [Fleet Adult] 133 ml RECTAL DAILY PRN 12/08/19 [History] Naproxen 250 mg PO TID@0800,1200,1700 12/08/19 [History] amLODIPine [Norvasc] 5 mg PO DAILY@0812/08/19 [History] Follow up Appointment(s)/Referral(s): Rick Luke MD [Primary Care Provider] - 1-2 days
[2019-12-10 15:23] VITALS: BP 139/73; PULSE 68; RESP 16
--- NOTE | 2019-12-10 15:36 | EEG ---
ELECTROENCEPHALOGRAM REPORT DATE OF SERVICE: 12/10/2019. PREAMBLE: This is a 68-year-old male with episodes of unresponsiveness. This study is performed to evaluate for any epileptiform activity. EEG FINDINGS: A routine 21-channel awake digital EEG recording was accomplished utilizing the 10/20 international system with bipolar and referential montages. The background consists of well-developed, well-regulated, moderate-voltage activity in 8-9 Hz alpha. Background is posterior dominant and reactive to eye opening and closing. The patient was drowsy during most of the study, with the presence of bilaterally symmetric theta frequency rhythm. Some very brief stage-II sleep was seen with some sleep spindles. A photic driving response was not seen. Some muscle twitch artifacts were seen sporadically. No focal or generalized epileptiform activity was seen. EKG rhythm leads revealed no obvious arrhythmia. IMPRESSION: This is a normal EEG during wakefulness, drowsiness, and brief stage-II sleep. No focal or generalized epileptiform activity was seen. MMODL / IJN: [id number] /
--- NOTE | 2019-12-10 17:00 | P.PN ---
Subjective Progress Note Date: 12/10/19 Patient offers no new complaints. Laying comfortably in the bed. No further focal symptoms or syncopal spells. Objective - Vital Signs Vital signs: Vital Signs Temp 97.8 F 12/10/19 09:00 Pulse 68 12/10/19 15:22 Resp 16 12/10/19 15:22 BP 139/73 12/10/19 15:22 Pulse Ox 97 12/10/19 15:22 Intake & Output 12/09/19 12/10/19 12/10/19 18:59 06:59 18:59 Intake Total 720 1100 360 Output Total 200 175 Balance 720 900 185 Weight 91 kg Intake: Intake, IV Titration 1100 Amount Sodium Chloride 0.9% 1, 1100 000 ml @ 100 mls/hr IV . Q10H [facility] Rx#:[id number] Oral 720 360 Output: Urine 200 175 Other: # Voids 1 1 # Bowel Movements 1 - Exam Patient is alert and awake. Speech and language functions normal. Muscle strength appears normal. Tone is normal. - Labs CBC & Chem 7: 12/08/19 15:19 12/09/19 05:59 Assessment and Plan Assessment: * 68-year-old male admitted with an episode of altered mental status, with sl obbering, confusion, dizziness, lasting for about 10 minutes. Rule out TIA. Rule out focal seizure. * History of CVA in the past. * Hypertension * X tobacco user Plan: * Patient has embolic workup performed, which is negative including CTA of head and neck. * 2-D echo shows severely enlarged left atrium. The telemetry monitoring so far has been normal sinus rhythm. Suggest placement of an event monitor to rule out paroxysmal atrial fibrillation. * EEG was normal, with no evidence of epileptiform activity. * Patient will be continued on dual antiplatelet medication and statins. * Hemoglobin A1c 5.8. * Neurologically clear for discharge. Suggest follow up with neurologist locally outpatient, in 2-4 weeks.
== END 2019-12-10 19:24 | disposition home or self-care (01) ==
LOC: EC 14:57 → INTOOBSV 16:52 → 3SCARD 16:52
PROVIDERS: ADMIT Hospitalist; ATTEND Hospitalist
DX: R41.0 Disorientation, unspecified (principal); R25.9 Unspecified abnormal involuntary movements; R53.1 Weakness; R15.9 Full incontinence of feces; K11.7 Disturbances of salivary secretion; R32 Unspecified urinary incontinence; R42 Dizziness and giddiness; N17.9 Acute kidney failure, unspecified; K21.9 Gastro-esophageal reflux disease without esophagitis; E78.5 Hyperlipidemia, unspecified; I13.10 Hypertensive heart and chronic kidney disease without heart failure, with stage 1 through stage 4 chronic kidney disease, or unspecified chronic kidney disease; M13.89 Other specified arthritis, multiple sites; D64.9 Anemia, unspecified; I69.354 Hemiplegia and hemiparesis following cerebral infarction affecting left non-dominant side; N40.0 Benign prostatic hyperplasia without lower urinary tract symptoms; G47.33 Obstructive sleep apnea (adult) (pediatric); R26.89 Other abnormalities of gait and mobility; Z95.828 Presence of other vascular implants and grafts; J44.9 Chronic obstructive pulmonary disease, unspecified; I69.391 Dysphagia following cerebral infarction; R13.10 Dysphagia, unspecified; I69.392 Facial weakness following cerebral infarction; N18.9 Chronic kidney disease, unspecified; N49.2 Inflammatory disorders of scrotum; B96.4 Proteus (mirabilis) (morganii) as the cause of diseases classified elsewhere; G31.9 Degenerative disease of nervous system, unspecified; I67.82 Cerebral ischemia; I49.3 Ventricular premature depolarization; Z79.899 Other long term (current) drug therapy; Z79.82 Long term (current) use of aspirin; Z79.02 Long term (current) use of antithrombotics/antiplatelets; Z79.1 Long term (current) use of non-steroidal anti-inflammatories (NSAID); Z86.69 Personal history of other diseases of the nervous system and sense organs; Z98.890 Other specified postprocedural states; Z87.440 Personal history of urinary (tract) infections; Z87.11 Personal history of peptic ulcer disease; Z98.42 Cataract extraction status, left eye; Z98.41 Cataract extraction status, right eye; Z87.39 Personal history of other diseases of the musculoskeletal system and connective tissue; Z86.19 Personal history of other infectious and parasitic diseases; Z96.651 Presence of right artificial knee joint; Z87.891 Personal history of nicotine dependence; Z82.3 Family history of stroke; Z83.3 Family history of diabetes mellitus; Z82.49 Family history of ischemic heart disease and other diseases of the circulatory system; Z83.438 Family history of other disorder of lipoprotein metabolism and other lipidemia
CPT/HCPCS: 96360; 96361 ×2; 96372 ×2; 99285; 36415; 95816; 93005; 93306; 97116; 97162; 97535; 97166; 92610; 80061; 80053; 80048; 84484; 85025; 85610; 85730; 81003; 83036; 71046; 70496; 70450; 70498; G0378 ×3; J1650 ×2; Q9967

== ENCOUNTER 2019-12-31 13:24 | Emergency (ER) | payer MEDICARE, OTHER ==
[2019-12-31 13:46] VITALS: TEMP 98.3
[2019-12-31 14:54] LABS: Calcium 9.3 mg/dL (8.4-10.2); Magnesium 1.9 mg/dL (1.6-2.3); Potassium 4.1 mmol/L (3.5-5.1); Total Bilirubin 0.3 mg/dL (0.2-1.3); Total Protein 7.2 g/dL (6.3-8.2)
--- NOTE | 2019-12-31 15:13 | CT ---
EXAMINATION TYPE: CT brain cspine wo con DATE OF EXAM: 12/31/2019 COMPARISON: CT brain December 08, 2009 HISTORY: Fall injury today with headache and neck pain CT DLP: 1493 mGycm. Automated Exposure Control for Dose Reduction was Utilized. TECHNIQUE: CT scan of the head and cervical spine are performed without contrast. FINDINGS: There is no acute intracranial hemorrhage or midline shift identified. Diffuse ventricula r and sulcal prominence. Low-attenuation in the deep and periventricular white matter. Old infarct ri ght head of caudate nucleus and basal ganglia axial image 28 redemonstrated. Old infarct left head of caudate nucleus axial image 25 redemonstrated. Dependent fluid right sphenoid sinus again seen. Smal l mucous retention cyst or polyp anterior left sphenoid sinus redemonstrated. Cervical spine is visualized in its entirety from C1 through upper thoracic levels and demonstrates s traightened alignment without evidence of acute fracture or dislocation. Prevertebral soft tissue ap pears within normal limits. The C1-C2 articulation is within normal limits on the coronal images. Ve rtebral body heights and disc space heights are fairly well maintained. Fairly moderate multilevel an terior spurring. Spinal canal grossly preserved. Review of axial images shows thyroid gland to appear within normal limits. Partial visualization of suspected aneurysmal change to the thoracic aorta. Mi ld emphysematous change in the upper lungs. Focal mild/moderate calcified plaque left carotid bulb le jen. IMPRESSION: 1. There is no acute fracture or dislocation evident in the cervical spine. 2. No acute intracranial hemorrhage or midline shift is seen. [id number]-[id number] generalized atrophy wi th fairly advanced chronic small vessel ischemic change and several old lacunar infarcts are all rede monstrated without significant interval change.
[2019-12-31 15:14] LABS: INR 0.9 (<1.2); Partial Thromboplastin Time 20.8 sec (22.0-30.0); Prothrombin Time 9.7 sec (9.0-12.0)
--- NOTE | 2019-12-31 15:31 | ED ---
General Adult HPI - General Chief complaint: Fall Stated complaint: Fall Time Seen by Provider: 12/31/19 13:45 Source: patient, EMS, RN notes reviewed, old records reviewed Mode of arrival: EMS Limitations: no limitations - History of Present Illness Initial comments: This is a 68-year-old male who presents emergency department after having fallen. Patient states he turned around and got a little dizzy which she states has happened in the past. Patient states he lost his balance. Patient states he slid down the wall onto his butt hit his head up against a wall. Patient denies any loss of consciousness patient denies any headache patient states he is a little right-sided neck pain but there is no central neck pain there's no numbness or weakness. Patient denies hurting his hips or legs. Patient denies any upper family pain patient denies any back pain patient denies any chest or abdomen pain. Patient states is no longer dizzy. Patient states at no time did he have any difficulty breathing palpitations or chest pain. - Related Data Home Medications Medication Instructions Recorded Confirmed Atorvastatin [Lipitor] 80 mg PO HS@2100 05/26/17 12/08/19 Tamsulosin HCl [Flomax] 0.4 mg PO DAILY@0800 05/26/17 12/08/19 Sertraline [Zoloft] 25 mg PO DAILY@0808/28/17 12/08/19 Aspirin EC [Ecotrin Low Dose] 81 mg PO DAILY@0800 02/12/18 12/08/19 Calcitriol 0.25 mcg PO TUTH@1700 10/07/18 12/08/19 Mirabegron [Myrbetriq] 50 mg PO DAILY@0805/17/19 12/08/19 Bisacodyl [Dulcolax] 10 mg RECTAL DAILY PRN 12/08/19 12/08/19 Clopidogrel [Plavix] 75 mg PO DAILY@0812/08/19 12/08/19 Magnesium Hydroxide [Milk of 7,200 mg PO DAILY PRN 12/08/19 12/08/19 Magnesia Concentrate] Midodrine HCl [ProAmantine] 2.5 mg PO TID@0800,1200,1700 12/08/19 12/08/19 Na Phos,M-B/Na Phos,Di-Ba [Fleet 133 ml RECTAL DAILY PRN 12/08/19 12/08/19 Adult] amLODIPine [Norvasc] 5 mg PO DAILY@0800 12/08/19 12/08/19 Allergies Allergy/AdvReac Type Severity Reaction Status Date / Time No Known Allergies Allergy Verified 12/31/19 13:46 Review of Systems ROS Statement: Those systems with pertinent positive or pertinent negative responses have been documented in the HPI. ROS Other: All systems not noted in ROS Statement are negative. Past Medical History Past Medical History: COPD, CVA/TIA, Eye Disorder, GERD/Reflux, Hyperlipidemia, Hypertension, Osteoarthritis (OA), Prostate Disorder, Renal Disease, Sleep Apnea/CPAP/BIPAP, Syncope Additional Past Medical History / Comment(s): pt is rt side dominant. hx ofMultiple TIAs, CVA 01/2017 with dysphagia-peg tube inserted and now out, has residual weakness lt arm/leg and some lt facial droop. chronic kidney disease BPH, Uti, ROSA has Cpap but does not tolerate it no longer using it, gastric ulcer, soniya eye cataracts, past hxR foot 3rd toe osteomylitis, arthritis multiple joints, past gastric ulcer, past hx shingels. , History of Any Multi-Drug Resistant Organisms: None Reported Past Surgical History: Hernia Repair, Joint Replacement Additional Past Surgical History / Comment(s): 06/01/17 intracranial angioplasty- (pt stated "he has stents') HFH, EGD with peg tube insertion since removed, R inguinal hernia repair, R total knee arthroplasty, colonoscopies with last one in 2014-normal., Past Anesthesia/Blood Transfusion Reactions: No Reported Reaction Past Psychological History: No Psychological Hx Reported Smoking Status: Former smoker Past Alcohol Use History: None Reported Past Drug Use History: None Reported - Past Family History Mother Family Medical History: CVA/TIA, Diabetes Mellitus, Hyperlipidemia, Hypertension Father Family Medical History: CVA/TIA, Hypertension General Exam - General Exam Comments Initial Comments: GENERAL: Patient is well-developed and well-nourished. Patient is nontoxic and well-hydr ated and is in no acute distress. Patient has no bleeding on the scalp and he has no area of tenderness on the scalp. ENT: Neck is soft and supple. No significant lymphadenopathy is noted. Oropharynx is clear. Moist mucous membranes. Patient has a little tightness in the right trapezius muscle on turning his head to the left. EYES: The sclera were anicteric and conjunctiva were pink and moist. Extraocular movements were intact and pupils were equal round and reactive to light. Eyelids were unremarkable. PULMONARY: Unlabored respirations. Good breath sounds bilaterally. No audible rales rhonchi or wheezing was noted. CARDIOVASCULAR: There is a regular rate and rhythm without any murmurs gallops or rubs. ABDOMEN: Soft and nontender with normal bowel sounds. SKIN: Skin is clear with no lesions or rashes and otherwise unremarkable. NEUROLOGIC: Patient is alert and oriented x3. Cranial nerves II through XII are grossly intact. Motor and sensory are also intact. Normal speech, volume and content. Symmetrical smile. MUSCULOSKELETAL: Normal extremities with adequate strength and full range of motion. No lower extremity swelling or edema. No calf tenderness. LYMPHATICS: No significant lymphadenopathy is noted PSYCHIATRIC: Normal psychiatric evaluation. Limitations: no limitations Course Vital Signs 12/31/19 12/31/19 12/31/19 13:41 14:34 15:17 Temperature 98.3 F Pulse Rate 67 68 Respiratory 16 18 16 Rate Blood Pressure 157/84 160/90 Blood Pressure [Right Arm Sitting] Blood Pressure [Right Arm Standing] Blood Pressure [Right Arm Supine] O2 Sat by Pulse 97 98 Oximetry 12/31/19 15:35 Temperature Pulse Rate Respiratory 16 Rate Blood Pressure Blood Pressure 159/93 [Right Arm Sitting] Blood Pressure 169/100 [Right Arm Standing] Blood Pressure 167/99 [Right Arm Supine] O2 Sat by Pulse 99 Oximetry Medical Decision Making - Medical Decision Making EKG shows normal sinus rhythm at 60 bpm CO interval 180 QRSs 84 QT interval 14 QTC is 424. Patient's EKG shows no ST segment elevation or depression. - Lab Data Result diagrams: 12/31/19 15:20 12/31/19 14:10 Lab Results 12/31/19 12/31/19 12/31/19 Range/Units 14:10 14:10 14:10 WBC (3.8-10.6) k/uL RBC (4.30-5.90) m/uL Hgb (13.0-17.5) gm/dL Hct (39.0-53.0) % MCV (80.0-100.0) fL MCH (25.0-35.0) pg MCHC (31.0-37.0) g/dL RDW (11.5-15.5) % Plt Count (150-450) k/uL Neutrophils % % Lymphocytes % % Monocytes % % Eosinophils % % Basophils % % Neutrophils # (1.3-7.7) k/uL Lymphocytes # (1.0-4.8) k/uL Monocytes # (0-1.0) k/uL Eosinophils # (0-0.7) k/uL Basophils # (0-0.2) k/uL Anisocytosis PT 9.7 (9.0-12.0) sec INR 0.9 (<1.2) APTT 20.8 L (22.0-30.0) sec Sodium 138 (137-145) mmol/L Potassium 4.1 (3.5-5.1) mmol/L Chloride 104 (98-107) mmol/L Carbon Dioxide 25 (22-30) mmol/L Anion Gap 9 mmol/L BUN 19 (9-20) mg/dL Creatinine 1.16 (0.66-1.25) mg/dL Est GFR (CKD-EPI)AfAm 74 (>60 ml/min/1.73 sqM) Est GFR (CKD-EPI)NonAf 64 (>60 ml/min/1.73 sqM) Glucose 91 (74-99) mg/dL Calcium 9.3 (8.4-10.2) mg/dL Magnesium 1.9 (1.6-2.3) mg/dL Total Bilirubin 0.3 (0.2-1.3) mg/dL AST 27 (17-59) U/L ALT 30 (4-49) U/L Alkaline Phosphatase 109 (38-126) U/L Troponin I <0.012 (0.000-0.034) ng/mL Total Protein 7.2 (6.3-8.2) g/dL Albumin 4.0 (3.5-5.0) g/dL 12/31/19 Range/Units 15:20 WBC 4.3 (3.8-10.6) k/uL RBC 3.66 L (4.30-5.90) m/uL Hgb 10.7 L (13.0-17.5) gm/dL Hct 34.3 L (39.0-53.0) % MCV 93.7 (80.0-100.0) fL MCH 29.3 (25.0-35.0) pg MCHC 31.2 (31.0-37.0) g/dL RDW 17.5 H (11.5-15.5) % Plt Count 228 (150-450) k/uL Neutrophils % 68 % Lymphocytes % 22 % Monocytes % 5 % Eosinophils % 2 % Basophils % 0 % Neutrophils # 2.9 (1.3-7.7) k/uL Lymphocytes # 1.0 (1.0-4.8) k/uL Monocytes # 0.2 (0-1.0) k/uL Eosinophils # 0.1 (0-0.7) k/uL Basophils # 0.0 (0-0.2) k/uL Anisocytosis Slight PT (9.0-12.0) sec INR (<1.2) APTT (22.0-30.0) sec Sodium (137-145) mmol/L Potassium (3.5-5.1) mmol/L Chloride (98-107) mmol/L Carbon Dioxide (22-30) mmol/L Anion Gap mmol/L BUN (9-20) mg/dL Creatinine (0.66-1.25) mg/dL Est GFR (CKD-EPI)AfAm (>60 ml/min/1.73 sqM) Est GFR (CKD-EPI)NonAf (>60 ml/min/1.73 sqM) Glucose (74-99) mg/dL Calcium (8.4-10.2) mg/dL Magnesium (1.6-2.3) mg/dL Total Bilirubin (0.2-1.3) mg/dL AST (17-59) U/L ALT (4-49) U/L Alkaline Phosphatase (38-126) U/L Troponin I (0.000-0.034) ng/mL Total Protein (6.3-8.2) g/dL Albumin (3.5-5.0) g/dL Disposition Clinical Impression: Fall, Cervical strain, Dizziness Disposition: HOME SELF-CARE Instructions (If sedation given, give patient instructions): Fall Prevention for Older Adults (ED) Is patient prescribed a controlled substance at d/c from ED?: No Referrals: Rick Luke MD [Primary Care Provider] - 1-2 days Time of Disposition: 17:17
[2019-12-31 15:39] LABS: Anisocytosis Slight; Basophils % (A) 0 %; Eosinophils # (A) 0.1 k/uL (0-0.7); Eosinophils % (A) 2 %; HCT 34.3 % (39.0-53.0); HGB 10.7 gm/dL (13.0-17.5); Lymphocytes % (A) 22 %; MCH 29.3 pg (25.0-35.0); MCHC 31.2 g/dL (31.0-37.0); MCV 93.7 fL (80.0-100.0); Mean Platelet Volume 7.3; Monocytes # (A) 0.2 k/uL (0-1.0); Monocytes % (A) 5 %; Neutrophils # (A) 2.9 k/uL (1.3-7.7); Neutrophils % (A) 68 %; Platelet Count 228 k/uL (150-450); RBC 3.66 m/uL (4.30-5.90); RDW 17.5 % (11.5-15.5); WBC 4.3 k/uL (3.8-10.6)
--- NOTE | 2019-12-31 15:56 | XR ---
EXAMINATION TYPE: XR chest 2V DATE OF EXAM: 12/31/2019 COMPARISON: 12/08/2019 HISTORY: Chest pain TECHNIQUE: Frontal and lateral views of the chest are obtained. FINDINGS: There is no focal air space opacity, pleural effusion, or pneumothorax seen. The cardiac silhouette size is enlarged. There is tortuosity of the descending thoracic aorta and unfolding wit h cardiac loop recorder. Unchanged density near superior vena cava/azygos confluence. The osseous str uctures are intact. IMPRESSION: Persistent enlargement of the cardiomediastinal silhouette with unfolding of the thoraci c aorta. This may partially relate to rotation. Repeat frontal view chest x-ray could be performed fo r more direct comparison of thoracic aortic size in comparison to the prior.
[2019-12-31 17:33] VITALS: BP 169/96; PULSE 74; RESP 18
== END 2019-12-31 17:32 | disposition home or self-care (01) ==
LOC: EC 13:24
DX: S16.1XXA Strain of muscle, fascia and tendon at neck level, initial encounter (principal); R42 Dizziness and giddiness; E78.5 Hyperlipidemia, unspecified; I12.9 Hypertensive chronic kidney disease with stage 1 through stage 4 chronic kidney disease, or unspecified chronic kidney disease; M19.90 Unspecified osteoarthritis, unspecified site; N40.0 Benign prostatic hyperplasia without lower urinary tract symptoms; N18.9 Chronic kidney disease, unspecified; Z87.891 Personal history of nicotine dependence; Z79.02 Long term (current) use of antithrombotics/antiplatelets; Z79.82 Long term (current) use of aspirin; Z79.899 Other long term (current) drug therapy; Z86.73 Personal history of transient ischemic attack (TIA), and cerebral infarction without residual deficits; Z96.651 Presence of right artificial knee joint; W13.8XXA Fall from, out of or through other building or structure, initial encounter; Y93.89 Activity, other specified
CPT/HCPCS: 36415; 70450; 71046; 72125; 80053; 83735; 84484; 85025; 85610; 85730; 93005; 99285

== ENCOUNTER → 2020-10-27 | Outpatient (CLI) | payer MEDICARE, OTHER ==
--- NOTE | 2020-10-27 18:43 | US ---
EXAMINATION TYPE: US kidneys/renal and bladder DATE OF EXAM: 10/27/2020 COMPARISON: 08/20/2017 CLINICAL HISTORY: 69-year-old male N18.30 CKD STAGE 3. TECHNIQUE: Multiple sonographic images of the kidneys and bladder are obtained. FINDINGS: EXAM MEASUREMENTS: Right Kidney: 9.5 x 4.5 x 4.4 cm Left Kidney: 9.7 x 5.7 x 5.2 cm Right Kidney: No hydronephrosis. Left Kidney: No hydronephrosis. Cyst lateral= 5.1 x 4.4 x 5.2 cm, slightly increased compared to 4.5 cm in 2017. Bladder: Partial distention limits evaluation. Bilateral Jets seen: No IMPRESSION: No hydronephrosis. Benign left renal cyst measuring 5.2 cm, slightly larger compared to 4.5 cm in 201 7.
== END | disposition home or self-care (01) ==
LOC: RADUSWWP 15:35
PROVIDERS: ATTEND Internal Medicine Nephrology
DX: N28.1 Cyst of kidney, acquired (principal); N18.30 Chronic kidney disease, stage 3 unspecified
CPT/HCPCS: 76770

== ENCOUNTER 2020-11-18 15:25 | Inpatient (IN) | payer MEDICARE, OTHER ==
[2020-11-18] MEDS ORDERED: SODIUM CHLORIDE 0.9% 500 ML 500 ML IV STA (15:51)
[2020-11-18] MEDS ORDERED: SODIUM CHLORIDE 0.9% 1,000 ML IV STA ×2 (15:51→17:19)
--- NOTE | 2020-11-18 15:55 | ED ---
Dizziness HPI - General Chief Complaint: Syncope Stated Complaint: Syncope Time Seen by Provider: 11/18/20 15:25 Source: patient, EMS, RN notes reviewed, old records reviewed Mode of arrival: EMS - History of Present Illness Initial Comments: This is a 69-year-old male with a history of TIA hypertension and COPD stage III chronic kidney disease and prior episodes of syncope who apparently was sitting in a chair prior to arrival when he passed out for is believed to be 2-3 minutes per paramedics but when family was asked was initially 15 minutes which is a lot longer than his prior episodes.. He's had this happen to him before he denies any palpitations fevers chills nausea vomiting sweats dizziness headache. He woke up spontaneously and was back to normal shortly thereafter. He does admit that he did not eat today and blood sugar is 136 per reports. He has no comp laints no other modifying factors at this time however he did recently have a blood pressure medication change is unknown whether was any increase or decrease. MD Complaint: other - Related Data Home Medications Medication Instructions Recorded Confirmed Atorvastatin [Lipitor] 80 mg PO HS 05/26/17 11/18/20 Tamsulosin HCl [Flomax] 0.4 mg PO DAILY 05/26/17 11/18/20 Aspirin EC [Ecotrin Low Dose] 81 mg PO DAILY 02/12/18 11/18/20 calcitrioL [Calcitriol] 0.25 mcg PO MOTUTHSA 10/07/18 11/18/20 Mirabegron [Myrbetriq] 50 mg PO DAILY 05/17/19 11/18/20 Clopidogrel [Plavix] 75 mg PO DAILY 12/08/19 11/18/20 Midodrine HCl [ProAmantine] 2.5 mg PO TID PRN 12/08/19 11/18/20 Benzoyl Peroxide 1 applic TOPICAL DAILY 11/18/20 11/18/20 Cetirizine HCl [Zyrtec] 10 mg PO DAILY 11/18/20 11/18/20 Famotidine [Pepcid] 20 mg PO BID 11/18/20 11/18/20 Ferrous Sulfate [Feosol] 325 mg PO BID 11/18/20 11/18/20 Ketoconazole [Nizoral A-D] 1 applic TOPICAL DIRECTED 11/18/20 11/18/20 Sertraline HCl [Zoloft] 50 mg PO DAILY 11/18/20 11/18/20 Allergies Allergy/AdvReac Type Severity Reaction Status Date / Time No Known Allergies Allergy Verified 11/18/20 18:46 Review of Systems ROS Statement: Those systems with pertinent positive or pertinent negative responses have been documented in the HPI. ROS Other: All systems not noted in ROS Statement are negative. Past Medical History Past Medical History: COPD, CVA/TIA, Eye Disorder, GERD/Reflux, Hyperlipidemia, Hypertension, Osteoarthritis (OA), Prostate Disorder, Renal Disease, Sleep Apnea/CPAP/BIPAP, Syncope Additional Past Medical History / Comment(s): pt is rt side dominant. hx ofMultiple TIAs, CVA 01/2017 with dysphagia-peg tube inserted and now out, has residual weakness lt arm/leg and some lt facial droop. chronic kidney disease BPH, Uti, ROSA has Cpap but does not tolerate it no longer using it, gastric ulcer, soniya eye cataracts, past hxR foot 3rd toe osteomylitis, arthritis multiple joints, past gastric ulcer, past hx shingels. , History of Any Multi-Drug Resistant Organisms: None Reported Past Surgical History: Hernia Repair, Joint Replacement Additional Past Surgical History / Comment(s): 06/01/17 intracranial angioplasty- (pt stated "he has stents') HFH, EGD with peg tube insertion since removed, R inguinal hernia repair, R total knee arthroplasty, colonoscopies with last one in 2014-normal., Past Anesthesia/Blood Transfusion Reactions: No Reported Reaction Past Psychological History: No Psychological Hx Reported Past Alcohol Use History: None Reported Past Drug Use History: None Reported - Past Family History Mother Family Medical History: CVA/TIA, Diabetes Mellitus, Hyperlipidemia, Hypertension Father Family Medical History: CVA/TIA, Hypertension General Exam - General Exam Comments Initial Comments: This is a well-developed well-nourished awake alert oriented 3 male General appearance: alert, in no apparent distress Head exam: Present: atraumatic, normocephalic, normal inspection Eye exam: Present: normal appearance, PERRL, EOMI. Absent: scleral icterus, conjunctival injection, periorbital swelling ENT exam: Present: mucous membranes dry Neck exam: Present: normal inspection. Absent: tenderness, meningismus, lymph adenopathy Respiratory exam: Present: normal lung sounds bilaterally. Absent: respiratory distress, wheezes, rales, rhonchi, stridor Cardiovascular Exam: Present: regular rate, normal rhythm, normal heart sounds. Absent: systolic murmur, diastolic murmur, rubs, gallop, clicks GI/Abdominal exam: Present: soft, normal bowel sounds. Absent: distended, tenderness, guarding, rebound, rigid Extremities exam: Present: normal inspection, full ROM, normal capillary refill. Absent: tenderness, pedal edema, joint swelling, calf tenderness Back exam: Present: normal inspection Neurological exam: Present: alert, oriented X3, CN II-XII intact Psychiatric exam: Present: normal affect, normal mood Skin exam: Present: warm, dry, intact, normal color. Absent: rash Course Vital Signs 11/18/20 11/18/20 11/18/20 15:27 16:32 18:35 Temperature 98.3 F 97.9 F 98.1 F Pulse Rate 62 62 74 Respiratory 16 16 16 Rate Blood Pressure 142/84 138/82 146/95 O2 Sat by Pulse 98 98 98 Oximetry EKG Findings - EKG Results: EKG: interpreted by ADA, sinus rhythm (Sinus rhythm a 63 SD interval 186, QRS 80 QT/QTC 420/429 nonspecific inferior lateral T-wave changes) Medical Decision Making - Medical Decision Making Evaluate the patient appears be awake alert oriented 3 and did discuss findings with him and his family patient be admitted case is discussed with Dr. Dexter. Interval workup will be performed neurology will be consulted orthostatics will be done. - Lab Data Result diagrams: 11/18/20 16:04 11/18/20 16:04 Lab Results 11/18/20 11/18/20 11/18/20 Range/Units 16:04 16:04 16:04 WBC 5.4 (3.8-10.6) k/uL RBC 3.80 L (4.30-5.90) m/uL Hgb 12.1 L (13.0-17.5) gm/dL Hct 36.9 L (39.0-53.0) % MCV 97.1 (80.0-100.0) fL MCH 31.7 (25.0-35.0) pg MCHC 32.7 (31.0-37.0) g/dL RDW 16.0 H (11.5-15.5) % Plt Count 250 (150-450) k/uL MPV 6.9 Neutrophils % 62 % Lymphocytes % 28 % Monocytes % 4 % Eosinophils % 3 % Basophils % 1 % Neutrophils # 3.4 (1.3-7.7) k/uL Lymphocytes # 1.5 (1.0-4.8) k/uL Monocytes # 0.2 (0-1.0) k/uL Eosinophils # 0.2 (0-0.7) k/uL Basophils # 0.0 (0-0.2) k/uL PT 10.2 (9.0-12.0) sec INR 0.9 (<1.2) APTT 22.3 (22.0-30.0) sec D-Dimer 0.92 H (<0.60) mg/L FEU Sodium (137-145) mmol/L Potassium (3.5-5.1) mmol/L Chloride (98-107) mmol/L Carbon Dioxide (22-30) mmol/L Anion Gap mmol/L BUN (9-20) mg/dL Creatinine (0.66-1.25) mg/dL Est GFR (CKD-EPI)AfAm (>60 ml/min/1.73 sqM) Est GFR (CKD-EPI)NonAf (>60 ml/min/1.73 sqM) Glucose (74-99) mg/dL POC Glucose (mg/dL) (75-99) mg/dL POC Glu Career Professional ID Calcium (8.4-10.2) mg/dL Magnesium (1.6-2.3) mg/dL Total Bilirubin (0.2-1.3) mg/dL AST (17-59) U/L ALT (4-49) U/L Alkaline Phosphatase (38-126) U/L Creatine Kinase (55-170) U/L Troponin I (0.000-0.034) ng/mL Total Protein (6.3-8.2) g/dL Albumin (3.5-5.0) g/dL Urine Color Light Yellow Urine Appearance Clear (Clear) Urine pH 7.5 (5.0-8.0) Ur Specific [place] 1.035 (1.001-1.035) Urine Protein Negative (Negative) Urine Glucose (UA) Negative (Negative) Urine Ketones Negative (Negative) Urine Blood Negative (Negative) Urine Nitrite Negative (Negative) Urine Bilirubin Negative (Negative) Urine Urobilinogen <2.0 (<2.0) mg/dL Ur Leukocyte Esterase Negative (Negative) 11/18/20 11/18/20 11/18/20 Range/Units 16:04 16:04 16:13 WBC (3.8-10.6) k/uL RBC (4.30-5.90) m/uL Hgb (13.0-17.5) gm/dL Hct (39.0-53.0) % MCV (80.0-100.0) fL MCH (25.0-35.0) pg MCHC (31.0-37.0) g/dL RDW (11.5-15.5) % Plt Count (150-450) k/uL MPV Neutrophils % % Lymphocytes % % Monocytes % % Eosinophils % % Basophils % % Neutrophils # (1.3-7.7) k/uL Lymphocytes # (1.0-4.8) k/uL Monocytes # (0-1.0) k/uL Eosinophils # (0-0.7) k/uL Basophils # (0-0.2) k/uL PT (9.0-12.0) sec INR (<1.2) APTT (22.0-30.0) sec D-Dimer (<0.60) mg/L FEU Sodium 138 (137-145) mmol/L Potassium 4.3 (3.5-5.1) mmol/L Chloride 103 (98-107) mmol/L Carbon Dioxide 29 (22-30) mmol/L Anion Gap 6 mmol/L BUN 22 H (9-20) mg/dL Creatinine 1.54 H (0.66-1.25) mg/dL Est GFR (CKD-EPI)AfAm 52 (>60 ml/min/1.73 sqM) Est GFR (CKD-EPI)NonAf 45 (>60 ml/min/1.73 sqM) Glucose 100 H (74-99) mg/dL POC Glucose (mg/dL) 87 (75-99) mg/dL POC Glu Career Professional ID Cesar Dossle Calcium 9.6 (8.4-10.2) mg/dL Magnesium 1.8 (1.6-2.3) mg/dL Total Bilirubin 0.5 (0.2-1.3) mg/dL AST 23 (17-59) U/L ALT 21 (4-49) U/L Alkaline Phosphatase 92 (38-126) U/L Creatine Kinase 78 (55-170) U/L Troponin I <0.012 (0.000-0.034) ng/mL Total Protein 7.4 (6.3-8.2) g/dL Albumin 4.1 (3.5-5.0) g/dL Urine Color Urine Appearance (Clear) Urine pH (5.0-8.0) Ur Specific [place] (1.001-1.035) Urine Protein (Negative) Urine Glucose (UA) (Negative) Urine Ketones (Negative) Urine Blood (Negative) Urine Nitrite (Negative) Urine Bilirubin (Negative) Urine Urobilinogen (<2.0) mg/dL Ur Leukocyte Esterase (Negative) - Radiology Data Radiology results: report reviewed (Imaging reviewed no acute findings no evidence of PE.), image reviewed Disposition Clinical Impression: Syncope, Dehydration Disposition: ADMITTED IP TO THIS [facility] Condition: Fair Referrals: Rick Luke MD [Primary Care Provider] - 1-2 days
[2020-11-18 16:16] LABS: Glucose,Whole Blood 87 mg/dL (75-99)
[2020-11-18 16:36] LABS: Basophils % (A) 1 %; Eosinophils # (A) 0.2 k/uL (0-0.7); Eosinophils % (A) 3 %; HCT 36.9 % (39.0-53.0); HGB 12.1 gm/dL (13.0-17.5); Lymphocytes # (A) 1.5 k/uL (1.0-4.8); Lymphocytes % (A) 28 %; MCH 31.7 pg (25.0-35.0); MCHC 32.7 g/dL (31.0-37.0); MCV 97.1 fL (80.0-100.0); Mean Platelet Volume 6.9; Monocytes # (A) 0.2 k/uL (0-1.0); Monocytes % (A) 4 %; Neutrophils # (A) 3.4 k/uL (1.3-7.7); Neutrophils % (A) 62 %; Platelet Count 250 k/uL (150-450); WBC 5.4 k/uL (3.8-10.6)
--- NOTE | 2020-11-18 16:40 | XR ---
EXAMINATION TYPE: XR chest 2V DATE OF EXAM: 11/18/2020 COMPARISON: 12/31/2019 HISTORY: Syncope TECHNIQUE: 2 views FINDINGS: Heart and mediastinum are within normal limits. Lungs are clear of infiltrate. There is no heart failure. There are no hilar masses. There are chest leads. Bony thorax is intact. IMPRESSION: No active cardiopulmonary disease. Normal heart. No change.
[2020-11-18 16:44] LABS: Albumin 4.1 g/dL (3.5-5.0); Calcium 9.6 mg/dL (8.4-10.2); Magnesium 1.8 mg/dL (1.6-2.3); Potassium 4.3 mmol/L (3.5-5.1); Total Bilirubin 0.5 mg/dL (0.2-1.3); Total Protein 7.4 g/dL (6.3-8.2)
[2020-11-18 16:48] LABS: INR 0.9 (<1.2); Partial Thromboplastin Time 22.3 sec (22.0-30.0); Prothrombin Time 10.2 sec (9.0-12.0)
[2020-11-18 16:51] LABS: D-Dimer 0.92 mg/L FEU (<0.60)
--- NOTE | 2020-11-18 18:04 | CT ---
EXAMINATION TYPE: CT angio chest DATE OF EXAM: 11/18/2020 COMPARISON: None HISTORY: Elevated d-dimer. Syncope. CT DLP: mGycm Automated exposure control for dose reduction was used. CONTRAST: The contrast was Isovue 80 mL. The lungs are clear of consolidation. There is no pleural effusion. Th ere is no evidence of a pulmonary mass. Heart appears borderline enlarged. There is no pericardial ef fusion. Thoracic aorta is intact. There is no dissection. Ascending aorta measures 4 cm. There is bor derline aneurysm of the ascending aorta. There is no mediastinal adenopathy. There are no hilar masses. There is 4.4 cm cortical cyst lateral left kidney. There is normal contrast opacification of the pulmonary arteries. There are no filling defects. The bony thorax is intact. There is mild spurring in the thoracic spine. I see no compression fractur e. IMPRESSION: No evidence of pulmonary embolism. Borderline aneurysm ascending aorta. No acute lung disease.
[2020-11-18 18:45] LABS: Appearance,Urine Clear (Clear); Bilirubin,Urine Negative (Negative); Blood,Urine Negative (Negative); Color,Urine Light Yellow; Glucose,Urine (UA) Negative (Negative); Ketones,Urine Negative (Negative); Leukocyte Esterase,Urine Negative (Negative); Nitrite,Urine Negative (Negative); PH, Urine 7.5 (5.0-8.0); Protein,Urine Negative (Negative); Specific Gravity,Urine 1.035 (1.001-1.035); Urobilinogen,Urine <2.0 mg/dL (<2.0)
[2020-11-18] MEDS ORDERED: MIDODRINE 5 MG TAB PO PRN (18:59)
[2020-11-18] MEDS: ATORVASTATIN 80 MG TAB PO SCH (21:33)
[2020-11-18] MEDS: FERROUS SULFATE 325 MG TAB PO SCH (21:33)
[2020-11-18] MEDS: SODIUM CHLORIDE 0.9% 1,000 ML IV SCH (21:33)
[2020-11-18] MEDS: FAMOTIDINE 20 MG TAB PO SCH (21:33)
[2020-11-18] MEDS: cloNIDine HCL 0.1 MG TAB PO SCH (22:22)
[2020-11-19 03:40] LABS: Cholesterol 194 mg/dL (<200); HDL Cholesterol 47 mg/dL (40-60); LDL Cholesterol,Calculated 131 mg/dL (0-99); Triglycerides 80 mg/dL (<150)
[2020-11-19] MEDS: SODIUM CHLORIDE 0.9% 1,000 ML IV SCH ×2 (06:36→21:10)
[2020-11-19 08:08] LABS: Anisocytosis Slight; Basophils % (A) 1 %; Eosinophils # (A) 0.1 k/uL (0-0.7); Eosinophils % (A) 3 %; HCT 32.9 % (39.0-53.0); HGB 10.8 gm/dL (13.0-17.5); Lymphocytes % (A) 38 %; MCH 32.2 pg (25.0-35.0); MCV 97.7 fL (80.0-100.0); Mean Platelet Volume 7.1; Monocytes # (A) 0.4 k/uL (0-1.0); Monocytes % (A) 7 %; Neutrophils # (A) 2.6 k/uL (1.3-7.7); Neutrophils % (A) 49 %; Platelet Count 220 k/uL (150-450); RBC 3.37 m/uL (4.30-5.90); RDW 16.1 % (11.5-15.5); WBC 5.2 k/uL (3.8-10.6)
[2020-11-19] MEDS: FAMOTIDINE 20 MG TAB PO SCH ×2 (08:27→21:09)
[2020-11-19] MEDS: ASPIRIN 81 MG PO SCH (08:27)
[2020-11-19] MEDS: FERROUS SULFATE 325 MG TAB PO SCH ×2 (08:27→21:09)
[2020-11-19] MEDS: CLOPIDOGREL 75 MG TAB PO SCH (08:27)
[2020-11-19] MEDS: SERTRALINE 50 MG TAB PO SCH (08:27)
[2020-11-19] MEDS: TAMSULOSIN 0.4 MG CAP.ER.24H PO SCH (08:27)
[2020-11-19] MEDS: cloNIDine HCL 0.1 MG TAB PO SCH ×3 (08:27→21:09)
[2020-11-19] MEDS: LORATADINE 10 MG TAB PO SCH (08:27)
[2020-11-19] MEDS: BENZOYL PEROXIDE TOPICAL SCH (08:29)
[2020-11-19] MEDS: NON FORMULARY DRUG (Mirabegron [Myrbetriq] 50 MG Tab.Er.24h) PO SCH (08:30)
--- NOTE | 2020-11-19 10:55 | P.CNNES ---
History of Present Illness Consult date: 11/19/20 Requesting physician: Toby Kline Reason for Consult: syncope History of Present Illness: This is a 69-year-old gentleman with history of stroke in the past, hypertension, chronic kidney disease stage, ex tobacco user who presented to the emergency department on 11/18/2020. Was sitting in a chair and passed out. The patient he was sitting on his couch and then the he said that he slumped down but he said he was trying to sleep. According to him he didn't have any urinary or bowel console or tongue bite that. According to the patient the with his took the blood pressure he said was low but he could not tell me how low. Per the ED note it is believed the that he passed out for 2-3 minutes per the patient but per family they think it lasted 15 minutes. He did admit that he did not eat today but his blood sugar was 136. There is no change of his blood pressure medication. His home medication is aspirin 81 mg, Plavix 75 mg and the patient is on Lipitor 80 mg. Upon reviewing the patient's medical record it seems that the patient was seen previously by our own neuro-hospitalists and it was with different neurologist. Was last seen by Dr. Romero and his consultation note was on [address]. Blake stated the patient episode of mental status with confusion and dizziness lasting for 10 minutes and he felt rule out transient ischemic attack as well as rule out focal seizure. He stated the patient had a history of strokes in the past as well as has history of hypertension as well as ex-tobacco user. Patient had an EEG on 2019 and it was reported as normal in our facility. Also the patient had the an EEG on 05/22/2018 in our facility and was reported as well as normal. Upon reviewing the other EEGs patient had not facility non-showed epileptiform discharges or seizure that were documented. Face seemed that on the patient last visits seen by the neurologist in our facility on November [address] of the head and neck which was negative a 2-D echo showed severely enlarged left atrium. Was recommended the patient to continue dual antiplatelet Medications and statin. And was recommended the for the patient to have an event monitor to rule out any proximal atrial fibrillation. Please refer to Dr. Romero's note for further details. Workup with our facility consisted of: Initial vital signs was blood pressure of 142/84, heart rate of 62, temperature of 98.3 Fahrenheit oral and pulse ox of 98% room air. Orthostatic was performed and showed that the patient's supine blood pressure is 185/108 with a heart rate of 64, sitting is blood pressure of 189/115 with a heart rate of 86 and standing his blood pressure of 143/94 with a heart rate of 87. From sitting to standing there was a decrease in the systolic blood pressure more than 20 which is suggestive of orthostatic hypotension. Last MRI of the brain and is on 07/06/2017 and is reported as no evidence of recent infarct on current study. There is a background of from mild to moderate diffuse cerebral atrophy and moderate to severe chronic small vessel ischemic change with multiple old predominantly right sided lacunar infarct redemonstrated, suspect some additional old lacunar infarct though the corpus callosum are felt present Patient white blood cell is 5.4 which is normal. Patient is initial serum glucose is 100. The sodium is 138. Calcium is 9.6 which is considered normal. Review of Systems Review of system: The 12 point system was reviewed and apparent positive and negative per HPI. Past Medical History Past Medical History: COPD, CVA/TIA, Eye Disorder, GERD/Reflux, Hyperlipidemia, Hypertension, Osteoarthritis (OA), Prostate Disorder, Renal Disease, Sleep Apnea/CPAP/BIPAP, Syncope Additional Past Medical History / Comment(s): pt is rt side dominant. hx ofMultiple TIAs, CVA 01/2017 with dysphagia-peg tube inserted and now out, has residual weakness lt arm/leg and some lt facial droop. chronic kidney disease BPH, Uti, ROSA has Cpap but does not tolerate it no longer using it, gastric ulcer, soniya eye cataracts, past hxR foot 3rd toe osteomylitis, arthritis multiple joints, past gastric ulcer, past hx shingels. , History of Any Multi-Drug Resistant Organisms: None Reported Past Surgical History: Hernia Repair, Joint Replacement Additional Past Surgical History / Comment(s): 06/01/17 intracranial angioplasty- (pt stated "he has stents') HFH, EGD with peg tube insertion since removed, R inguinal hernia repair, R total knee arthroplasty, colonoscopies with last one in 2019-normal., Past Anesthesia/Blood Transfusion Reactions: No Reported Reaction Past Psychological History: No Psychological Hx Reported Additional Psychological History / Comment(s): Pt lives with his in 2 story home that has 4 front porch steps. Pt stays on first level. No pets. No home care services. Pt uses a cane/walker to ambulate. Pt no longer drives, his spouse drives him to appts. Smoking Status: Former smoker Past Alcohol Use History: None Reported Additional Past Alcohol Use History / Comment(s): started smoking 1963. quit 201 6 smoked 1 ppd, no alcohol since 2015 Past Drug Use History: None Reported - Past Family History Mother Family Medical History: CVA/TIA, Diabetes Mellitus, Hyperlipidemia, Hypertension Father Family Medical History: CVA/TIA, Hypertension Medications and Allergies Home Medications Medication Instructions Recorded Confirmed Type Atorvastatin [Lipitor] 80 mg PO HS 05/26/17 11/18/20 History Tamsulosin HCl [Flomax] 0.4 mg PO DAILY 05/26/17 11/18/20 History Aspirin EC [Ecotrin Low Dose] 81 mg PO DAILY 02/12/18 11/18/20 History calcitrioL [Calcitriol] 0.25 mcg PO MOTUTHSA 10/07/18 11/18/20 History Mirabegron [Myrbetriq] 50 mg PO DAILY 05/17/19 11/18/20 History Clopidogrel [Plavix] 75 mg PO DAILY 12/08/19 11/18/20 History Midodrine HCl [ProAmantine] 2.5 mg PO TID PRN 12/08/19 11/18/20 History Benzoyl Peroxide 1 applic TOPICAL DAILY 11/18/20 11/18/20 History Cetirizine HCl [Zyrtec] 10 mg PO DAILY 11/18/20 11/18/20 History Famotidine [Pepcid] 20 mg PO BID 11/18/20 11/18/20 History Ferrous Sulfate [Feosol] 325 mg PO BID 11/18/20 11/18/20 History Ketoconazole [Nizoral A-D] 1 applic TOPICAL DIRECTED 11/18/20 11/18/20 History Sertraline HCl [Zoloft] 50 mg PO DAILY 11/18/20 11/18/20 History Allergies Allergy/AdvReac Type Severity Reaction Status Date / Time No Known Allergies Allergy Verified 11/18/20 18:46 Physical Examination - Vital Signs Vital Signs: Vital Signs Temp Pulse Pulse Pulse Pulse Pulse Resp 11/19/20 03:40 63 17 11/19/20 01:22 73 19 11/19/20 00:10 98.9 F 73 19 11/18/20 22:04 11/18/20 21:50 11/18/20 21:20 98.2 F 72 18 11/18/20 19:33 86 87 64 18 11/18/20 18:35 98.1 F 74 16 11/18/20 16:32 97.9 F 62 16 11/18/20 15:27 98.3 F 62 16 BP BP BP BP BP Pulse Ox 11/19/20 03:40 159/81 100 11/19/20 01:22 11/19/20 00:10 150/80 97 11/18/20 22:04 198/105 11/18/20 21:50 166/96 11/18/20 21:20 213/101 11/18/20 19:33 189/115 143/94 185/108 98 11/18/20 18:35 146/95 98 11/18/20 16:32 138/82 98 11/18/20 15:27 142/84 98 Intake and Output 11/18/20 11/19/20 11/19/20 22:59 06:59 14:59 Intake Total 10 Balance 10 Intake: IV 10 Invasive Line 2 10 Other: Voiding Method Toilet Urinal # Voids 2 Weight 88.451 kg 87.3 kg GENERAL: The patient is lying in bed and is not in acute distress. CHEST: The heart rate is regular rate rhythm. No murmurs to auscultation. No carotid bruit bilaterally. LUNG: Clear to auscultation bilaterally no wheezing noted throughout. Not labored breathing. ABDOMEN/GI: Bowel sounds present in all 4 quadrants. No tenderness to palpation throughout. NEUROLOGICAL: Higher mental function: The patient is awake, alert, oriented to self, place and time. Patient is following commands. No aphasia and no neglect. Cranial nerves: The pupils are round, equal and reactive to light and accommodation. Visual fierro are full to confrontation throughout. Extraocular movement is intact no nystagmus is noted. Facial sensation is normal to touch throughout. The facial strength is normal throughout. Hearing is normal bilaterally to hand rub. Tongue is midline and moved [id number] without any difficulty. No dysarthria is noted. Shoulder shrug is normal bilaterally. Motor: Gait is tested and he walked cautious steps without swaying toward one way or other. The strength is 5 over 5 throughout. Normal tone and bulk. Cerebellum: Normal finger to nose heel to chin bilaterally. Sensation: Sensation is normal to touch throughout. Reflexes (right/left): 2+ throughout. Plantars are downgoing bilaterally. Results BUN 22 creatinine is 1.54. Patient last creatinine is 1.16 which patient had episodes where the creatinine ranges from 1-1.7 and the past. AST is 23 and ALT 21 which is normal. Lipid panel as triglyceride of 80, cholesterol is 194, LDLs 131 and HDL is 47. Cognition study: PT is 10.2, INR 0.9 and PTT is 22.3. D-dimer is 0.92 which is elevated Urine analysis is negative for urinary tract infection. - Laboratory Findings CBC and BMP: 11/19/20 07:22 11/19/20 07:22 Abnormal Lab Findings: Abnormal Labs 11/18/20 11/18/20 11/18/20 16:04 16:04 16:04 RBC 3.80 L Hgb 12.1 L Hct 36.9 L RDW 16.0 H D-Dimer 0.92 H BUN 22 H Creatinine 1.54 H Glucose 100 H LDL Cholesterol, Calc 11/18/20 16:04 RBC Hgb Hct RDW D-Dimer BUN Creatinine Glucose LDL Cholesterol, Calc 131 H Assessment and Plan Assessment: This is a 69-year-old gentleman with history that presented emergency department on 11/18/2020 after passing out while in his chair. The family thinks that he passed out for 15 minutes. Patient was seen by different neuro-hospitalist non- facility and had multiple EEGs without any evidence of epileptiform or seizure on the EEGs. He also had stroke workup and was last seen by our neuro hospitalist on November 2019. Syncope. Possibly cardiac in etiology (especially with positive orthostatic). Unlikely seizure especially with multiple EEG without epileptiform or seizure. Orthostatic hypotension Acute on chronic kidney insufficiency History of old stroke Hypertension X tobacco use Plan: I would recommend patient to get the a long-term EEG as an outpatient to rule o ut any epileptiform or seizure that is not detected on routine EEGs. Consider getting an epilepsy monitoring unit (EMU) as outpatient. I'll not start the patient on antiepileptic drug since multiple EEGs in our facility did not show epileptiform discharges or seizure. The patient was started on Midodrine 2.5 mg 1 tablet 3 times a day when necessary for low blood pressure by the ED team. I feel the patient that should be on a scheduled dose if his blood pressure are not elevated especially if he has orthostatic hypotention. But will defer it to cardiology team. I will consult cardiology regarding the syncope and positive orthostatic hypotension. Continue aspirin 81 mg as well as Plavix 75 mg for dual antiplatelets as well as Lipitor 80 mg daily. MR the brain is not needed at this time. Recommend an event monitor or Holter monitor as an outpatient. Patient hemoglobin A1c was 5.8 on 2019. I'll repeat an hemoglobin A1c. PT OT and ELECTRONIC MUSICAL INSTRUMENT REPAIRER are consulted. Upon discharge the patient needs to follow-up with a neurologistas outpatient within 1-2 weeks. Upon discharge the patient needs to follow-up with a neurologist within 1-2 weeks. Thank you for the consultation. There is no neurology coverage over the weekend. Dr. Romero will resume neurology coverage on 11/22/2020. Carlos Young MD Neuro-Hospitalist Time with Patient: Greater than 30
--- NOTE | 2020-11-19 13:27 | P.CRDCN ---
History of Present Illness Consult date: 11/19/20 History of present illness: CHIEF COMPLAINT: Syncope HISTORY OF PRESENT ILLNESS: This is a 69-year-old male with a past medical history significant for hypertension, hyperlipidemia, CVA with left-sided weakness, TIA, and syncope. Patient follows in the office with Dr. Moctezuma. We have been asked to see the patient in consultation for syncope. Patient examined this morning at the bedside. Patient states that he was walking back from the bathroom at home when he began to feel dizzy. Patient states he felt like he was going to pass out. Patient states he did not actually pass out. However, according to the EMR it appears the patient may have passed out anywhere from 2- 15 minutes. The patient has been evaluated in the past for similiar episodes. He underwent an event monitor in 2018. Following that, the patient had a [employer] loop recorder inserted in 2018. The patient currently denies chest pain or pressure. He denies shortness of breath. He denies dizziness or lightheadedness. Orthostatic blood pressures obtained yesterday revealed blood pressure 185/101 supine, 189/115 sitting, and 143/94 standing. DIAGNOSTICS: EKG reveals sinus mechanism with T-wave inversions in inferolateral leads Chest xray no active cardiopulmonary disease Chest CTA: No evidence of pulmonary embolism Laboratory data: WBC 5.2. Hemoglobin 10.8. Platelet count 220. D-dimer 0.92. Sodium 138. Potassium 4.0. BUN 18. Creatinine 1.37. Troponin negative 3. Current home cardiac medications include Lipitor 80 mg daily, Plavix 75 mg daily, aspirin 81 mg daily, Midodrine 2.5 mg 3 times a day when necessary REVIEW OF SYSTEMS: At the time of my exam: CONSTITUTIONAL: Denies fever or chills. HEENT: Denies blurred vision, vision changes, or eye pain. Denies hemoptysis CARDIOVASCULAR: Denies chest pain, orthopnea, PND or palpitations RESPIRATORY: No shortness of breath. GASTROINTESTINAL: Denies abdominal pain. Denies nausea or vomiting. HEMATOLOGIC: Denies bleeding disorders. GENITOURINARY: Denies any blood in urine. SKIN: Denies pruitis. Denies rash. PHYSICAL EXAM: VITAL SIGNS: Reviewed. GENERAL: Well-developed in no acute distress. HEENT: Head is normocephalic. Pupils are equal, round. Sclerae anicteric. Mucous membranes of the mouth are moist. Neck supple. No JVD or thyromegaly LUNGS: Respirations even and unlabored. Lungs essentially clear to auscultation bilaterally. HEART: Regular rate and rhythm. S1 and S2 heard. ABDOMEN: Soft. Nondistended. Nontender. EXTREMITIES: Normal range of motion. No clubbing or cyanosis. Peripheral pulses intact. No lower extremity edema NEUROLOGIC: Awake and alert. Oriented x 3. ASSESSMENT: Pre-syncope Orthostatic changes without hypotension Hypertension Hyperlipidemia History of CVA/TIA History of syncope PLAN: Resume home cardiac medications. Repeat orthostatic blood pressures Spoke with [employer] device rep. Patient to have loop recorder interrogated today. Further recommendations pending patient's course Nurse practitioner note has been reviewed by physician. Signing provider agrees with the documented findings, assessment, and plan of care. Past Medical History Past Medical History: COPD, CVA/TIA, Eye Disorder, GERD/Reflux, Hyperlipidemia, Hypertension, Osteoarthritis (OA), Prostate Disorder, Renal Disease, Sleep Apnea/CPAP/BIPAP, Syncope Additional Past Medical History / Comment(s): pt is rt side dominant. hx ofMultiple TIAs, CVA 01/2017 with dysphagia-peg tube inserted and now out, has residual weakness lt arm/leg and some lt facial droop. chronic kidney disease BPH, Uti, ROSA has Cpap but does not tolerate it no longer using it, gastric u lcer, soniya eye cataracts, past hxR foot 3rd toe osteomylitis, arthritis multiple joints, past gastric ulcer, past hx shingels. , History of Any Multi-Drug Resistant Organisms: None Reported Past Surgical History: Hernia Repair, Joint Replacement Additional Past Surgical History / Comment(s): 06/01/17 intracranial angioplasty-( pt stated "he has stents') HFH, EGD with peg tube insertion since removed, R inguinal hernia repair, R total knee arthroplasty, colonoscopies with last one in 2019-normal., Past Anesthesia/Blood Transfusion Reactions: No Reported Reaction Past Psychological History: No Psychological Hx Reported Additional Psychological History / Comment(s): Pt lives with his in 2 story home that has 4 front porch steps. Pt stays on first level. No pets. No home care services. Pt uses a cane/walker to ambulate. Pt no longer drives, his spouse drives him to [employer]. Smoking Status: Former smoker Past Alcohol Use History: None Reported Additional Past Alcohol Use History / Comment(s): started smoking 1963. quit 2015 smoked 1 ppd, no alcohol since 2015 Past Drug Use History: None Reported - Past Family History Mother Family Medical History: CVA/TIA, Diabetes Mellitus, Hyperlipidemia, Hypertension Father Family Medical History: CVA/TIA, Hypertension Medications and Allergies Home Medications Medication Instructions Recorded Confirmed Type Atorvastatin [Lipitor] 80 mg PO HS 05/26/17 11/18/20 History Tamsulosin HCl [Flomax] 0.4 mg PO DAILY 05/26/17 11/18/20 History Aspirin EC [Ecotrin Low Dose] 81 mg PO DAILY 02/12/18 11/18/20 History calcitrioL [Calcitriol] 0.25 mcg PO MOTUTHSA 10/07/18 11/18/20 History Mirabegron [Myrbetriq] 50 mg PO DAILY 05/17/19 11/18/20 History Clopidogrel [Plavix] 75 mg PO DAILY 12/08/19 11/18/20 History Midodrine HCl [ProAmantine] 2.5 mg PO TID PRN 12/08/19 11/18/20 History Benzoyl Peroxide 1 applic TOPICAL DAILY 11/18/20 11/18/20 History Cetirizine HCl [Zyrtec] 10 mg PO DAILY 11/18/20 11/18/20 History Famotidine [Pepcid] 20 mg PO BID 11/18/20 11/18/20 History Ferrous Sulfate [Feosol] 325 mg PO BID 11/18/20 11/18/20 History Ketoconazole [Nizoral A-D] 1 applic TOPICAL DIRECTED 11/18/20 11/18/20 History Sertraline HCl [Zoloft] 50 mg PO DAILY 11/18/20 11/18/20 History Allergies Allergy/AdvReac Type Severity Reaction Status Date / Time No Known Allergies Allergy Verified 11/18/20 18:46 Physical Exam Vitals: Vital Signs Temp Pulse Pulse Pulse Pulse Pulse Resp 11/19/20 08:00 98 F 62 20 11/19/20 03:40 63 17 11/19/20 01:22 73 19 11/19/20 00:10 98.9 F 73 19 11/18/20 22:04 11/18/20 21:50 11/18/20 21:20 98.2 F 72 18 11/18/20 19:33 86 87 64 18 11/18/20 18:35 98.1 F 74 16 11/18/20 16:32 97.9 F 62 16 11/18/20 15:27 98.3 F 62 16 BP BP BP BP BP BP Pulse Ox 11/19/20 08:00 179/88 96 11/19/20 03:40 159/81 100 11/19/20 01:22 11/19/20 00:10 150/80 97 11/18/20 22:04 198/105 11/18/20 21:50 166/96 11/18/20 21:20 213/101 11/18/20 19:33 189/115 143/94 185/108 98 11/18/20 18:35 146/95 98 11/18/20 16:32 138/82 98 11/18/20 15:27 142/84 98 Intake and Output 11/18/20 11/19/20 11/19/20 22:59 06:59 14:59 Intake Total 10 120 Balance 10 120 Intake: IV 10 Invasive Line 2 10 Oral 120 Other: Voiding Method Toilet Urinal # Voids 2 Weight 88.451 kg 87.3 kg Results 11/19/20 07:22 11/19/20 07:22 Cardiac Enzymes 11/18/20 11/18/20 11/18/20 Range/Units 16:04 16:04 19:16 AST 23 (17-59) U/L Troponin I <0.012 <0.012 (0.000-0.034) ng/mL 11/18/20 Range/Units 22:29 AST (17-59) U/L Troponin I <0.012 (0.000-0.034) ng/mL Coagulation 11/18/20 Range/Units 16:04 PT 10.2 (9.0-12.0) sec APTT 22.3 (22.0-30.0) sec Lipids 11/18/20 Range/Units 16:04 Triglycerides 80 (<150) mg/dL Cholesterol 194 (<200) mg/dL HDL Cholesterol 47 (40-60) mg/dL CBC 11/18/20 11/19/20 Range/Units 16:04 07:22 WBC 5.4 5.2 (3.8-10.6) k/uL RBC 3.80 L 3.37 L (4.30-5.90) m/uL Hgb 12.1 L 10.8 L (13.0-17.5) gm/dL Hct 36.9 L 32.9 L (39.0-53.0) % Plt Count 250 220 (150-450) k/uL Comprehensive Metabolic Panel 11/18/20 11/19/20 Range/Units 16:04 07:22 Sodium 138 138 (137-145) mmol/L Potassium 4.3 4.0 (3.5-5.1) mmol/L Chloride 103 107 (98-107) mmol/L Carbon Dioxide 29 28 (22-30) mmol/L BUN 22 H 18 (9-20) mg/dL Creatinine 1.54 H 1.37 H (0.66-1.25) mg/dL Glucose 100 H 75 (74-99) mg/dL Calcium 9.6 9.0 (8.4-10.2) mg/dL AST 23 (17-59) U/L ALT 21 (4-49) U/L Alkaline Phosphatase 92 (38-126) U/L Total Protein 7.4 (6.3-8.2) g/dL Albumin 4.1 (3.5-5.0) g/dL Current Medications Generic Name Dose Route Start Last Admin Trade Name Freq PRN Reason Stop Dose Admin Aspirin 81 mg 11/19/20 09:00 11/19/20 08:27 Aspirin 81 Mg PO 81 mg DAILY HAM Administration Atorvastatin Calcium 80 mg 11/18/20 21:00 11/18/20 21:33 Atorvastatin 80 Mg Tab PO 80 mg HS HAM Administration Calcitriol 0.25 mcg 11/18/20 19:00 11/18/20 19:41 Calcitriol 0.25 Mcg Cap PO Not Given [id number] HAM Clonidine 0.1 mg 11/18/20 22:15 11/19/20 08:27 Clonidine Hcl 0.1 Mg Tab PO 0.1 mg BID HAM Administration Clopidogrel Bisulfate 75 mg 11/19/20 09:00 11/19/20 08:27 Clopidogrel 75 Mg Tab PO 75 mg DAILY HAM Administration Famotidine 20 mg 11/18/20 21:00 11/19/20 08:27 Famotidine 20 Mg Tab PO 20 mg BID HAM Administration Ferrous Sulfate 325 mg 11/18/20 21:00 11/19/20 08:27 Ferrous Sulfate 325 Mg Tab PO 325 mg BID HAM Administration Sodium Chloride 1,000 mls @ 20 mls/hr 11/18/20 17:19 11/18/20 18:47 Saline 0.9% IV 11/19/20 17:18 Not Given .Q24H STA Sodium Chloride 1,000 mls @ 100 mls/hr 11/18/20 19:00 11/19/20 06:36 Saline 0.9% IV Not Given .Q10H HAM Loratadine 10 mg 11/19/20 09:00 11/19/20 08:27 Loratadine 10 Mg Tab PO 10 mg DAILY HAM Administration Midodrine 2.5 mg 11/18/20 18:59 Midodrine 5 Mg Tab PO TID PRN LOW BLOOD PRESSURE Non-Formulary Medication 50 mg 11/19/20 09:00 11/19/20 08:30 Mirabegron [Myrbetriq] PO Not Given DAILY [facility] Non-Formulary Medication 1 applic 11/19/20 09:00 11/19/20 08:29 Benzoyl Peroxide [Benzoyl Peroxide] TOPICAL Not Given DAILY HAM Sertraline HCl 50 mg 11/19/20 09:00 11/19/20 08:27 Sertraline 50 Mg Tab PO 50 mg DAILY HAM Administration Tamsulosin HCl 0.4 mg 11/19/20 09:00 11/19/20 08:27 Tamsulosin 0.4 Mg Cap.Er.24h PO 0.4 mg DAILY HAM Administration Intake and Output 11/18/20 11/19/20 11/19/20 22:59 06:59 14:59 Intake Total 10 120 Balance 10 120 Intake: IV 10 Invasive Line 2 10 Oral 120 Other: Voiding Method Toilet Urinal # Voids 2 Weight 88.451 kg 87.3 kg 11/19/20 07:22 11/19/20 07:22
[2020-11-19 16:24] LABS: Hemoglobin A1C 5.8 % (4.0-6.0)
--- NOTE | 2020-11-19 18:18 | ECHOF ---
Referral Reason:dizziness, LV function MEASUREMENTS -------- HEIGHT: 188.0 cm WEIGHT: 87.1 kg BP: 179/88 RVIDd: 3.2 cm (< 3.3) IVSd: 1.5 cm (0.6 - 1.1) LVIDd: 4.1 cm (3.9 - 5.3) LVPWd: 1.4 cm (0.6 - 1.1) IVSs: 2.2 cm LVIDs: 2.7 cm LVPWs: 1.8 cm LA Diam: 2.8 cm (2.7 - 3.8) LAESV Index (A-L): 25.57 ml/m Ao Diam: 3.7 cm (2.0 - 3.7) AV Cusp: 2.5 cm (1.5 - 2.6) MV EXCURSION: 13.991 mm (> 18.000) MV EF SLOPE: 29 mm/s (70 - 150) EPSS: 0.7 cm MV E Shine: 0.60 m/s MV DecT: 522 ms MV A Shine: 1.17 m/s MV E/A Ratio: 0.51 FINDINGS -------- Sinus rhythm. This was a technically adequate study. The left ventricular size is normal. There is moderate concentric left ventricular hypertrophy. O verall left ventricular systolic function is normal with, an EF between 55 - 60 %. The right ventricle is normal in size. Normal LA size by volume 22+/-6 ml/m2. The right atrial size is normal. Interatrial and interventricular septum intact. There is mild aortic valve sclerosis. Mild mitral annular calcification present. Mild mitral regurgitation is present. The tricuspid valve appears structurally normal. Trace tricuspid regurgitation present. There is no pulmonic regurgitation present. The aortic root size is normal. IVC Not well visulized. There is no pericardial effusion. CONCLUSIONS -------- 1. There is moderate concentric left ventricular hypertrophy. 2. Overall left ventricular systolic function is normal with, an EF between 55 - 60 %. 3. Normal LA size by volume 22+/-6 ml/m2. 4. There is mild aortic valve sclerosis. 5. Mild mitral annular calcification present. 6. Mild mitral regurgitation is present. 7. There is no pericardial effusion. [employer] T[employer]: Aviva Leone RDCS
--- NOTE | 2020-11-19 20:43 | P.HPIM ---
History of Present Illness H&P Date: 11/19/20 Chief Complaint: Loss of consciousness History of presenting complaint.: This is a 69-year-old patient of Dr. chacko. Chronic stable medical conditions include GERD, hyperlipidemia, hypertension, primary osteoarthritis, left hemiparesis from prior stroke, BPH, obstructive sleep apnea does not use CPAP, chronic kidney dysfunction uses a cane/walker, stents in the brain. Patient now presents that he was apparently sitting in a chair and passed out for about 2-3 minutes but the paramedics. It was probably longer than that. This is happening to him in the past. No new weakness. No fever no chills. No chest pain or palpitation. Accu-Cheks was 136. No tongue biting or incontinence. Patient does complain of getting disease when he stands up. Back in November 2019 patient did have an EEG, 2-D echo, CT angiogram of the brain.- No significant abnormalities were detected. This morning sitting up in a chair. His back to his normal self. Review of systems: GEN.: None EYES: None HEENT: None NECK: None RESPIRATORY: None CARDIOVASCULAR: None GASTROINTESTINAL: None GENITOURINARY: None MUSCULOSKELETAL: Some joint pains LYMPHATICS: None HEMATOLOGICAL: None PSYCHIATRY: None NEUROLOGICAL: Left-sided weakness, chronic. Past history to include: GERD, hyperlipidemia, hypertension, primary osteoarthritis, left hemiparesis from prior stroke in 2017 and dysphagia did have a PEG tube temporarily., BPH, obstructive sleep apnea but does not use CPAP, gait dysfunction, some stents of the brain, TIA, scrotal abscess Social history: . Does use a cane and a walker. No alcohol since 2016. Patient smoked for 50 years a pack a day stopped in 2016. On examination: VITAL SIGNS: 98.3, 62, 16, 142/84, 98% room air-upon presentation GENERAL APPEARANCE: Reclining in a chair comfortable HEENT: Normal external appearance of nose and ear. Oral cavity normal EYES: Pupils equal. Conjunctiva normal. NECK: JVD not raised. Mass not palpable. RESPIRATORY: Respiratory effort normal. Lungs decreased breath sounds. CARDIOVASCULAR: First and second sounds normal. No edema. ABDOMEN: Soft. Liver and spleen not palpable. No tenderness. No mass palpable, PSYCHIATRY: Alert and oriented x3. Mood and affect normal. NEUROLOGICAL: Left-sided weakness power 3/5 INVESTIGATIONS, reviewed in the clinical context: White count 5.4 hemoglobin 12.1 platelets 250 potassium 4.3 bun 22 creatinine 1.5 for EKG tracing personally reviewed by me-normal sinus rhythm nonspecific T-wave changes inferolateral leads Previous testing: Bun 19 creatinine 1.16 on December 2019 Assessment: -Episode of unconsciousness lasting for a few minutes. No supportive history suggestive of any seizures at this point. Patient has a loop recorder. That'll be interrogated. -Possible chronic kidney disease stage III -GERD -Hyperlipidemia -Essential hypertension-accelerated. Note that patient takes midodrine at home. Likely labile. -Primary osteoarthritis -Normocytic anemia. -Left hemiparesis from a prior stroke -BPH -Obstructive sleep apnea does not use a CPAP -Chronic gait dysfunction uses a cane/walker -Stents in the brain Plan: Patient is borderline orthostatic. Placed an IV fluids. Home medications resumed. Blood pressure was running high. Placed on Catapres. Note that the patient takes midodrine at home-when necessary. Likely labile hypertension. Consultation to cardiology and neurology. Repeat BMP in the morning. Past Medical History Past Medical History: COPD, CVA/TIA, Eye Disorder, GERD/Reflux, Hyperlipidemia, Hypertension, Osteoarthritis (OA), Prostate Disorder, Renal Disease, Sleep Apnea/CPAP/BIPAP, Syncope Additional Past Medical History / Comment(s): pt is rt side dominant. hx of Multiple TIAs, CVA 01/2017 with dysphagia-peg tube inserted and now out, has residual weakness lt arm/leg and some lt facial droop. chronic kidney disease BPH, Uti, ROSA has Cpap but does not tolerate it no longer using it, gastric ulcer, soniya eye cataracts, past hxR foot 3rd toe osteomylitis, arthritis multiple joints, past gastric ulcer, past hx shingels. , History of Any Multi-Drug Resistant Organisms: None Reported Past Surgical History: Hernia Repair, Joint Replacement Additional Past Surgical History / Comment(s): 06/01/17 intracranial angioplasty- (pt stated "he has stents') HFH, EGD with peg tube insertion since removed, R inguinal hernia repair, R total knee arthroplasty, colonoscopies with last one in 2019-normal., Past Anesthesia/Blood Transfusion Reactions: No Reported Reaction Past Psychological History: No Psychological Hx Reported Additional Psychological History / Comment(s): Pt lives with his in 2 story home that has 4 front porch steps. Pt stays on first level. No pets. No home care services. Pt uses a cane/walker to ambulate. Pt no longer drives, his spouse drives him to appts. Smoking Status: Former smoker Past Alcohol Use History: None Reported Additional Past Alcohol Use History / Comment(s): started smoking 1963. quit 2015 smoked 1 ppd, no alcohol since 2015 Past Drug Use History: None Reported - Past Family History Mother Family Medical History: CVA/TIA, Diabetes Mellitus, Hyperlipidemia, Hypertension Father Family Medical History: CVA/TIA, Hypertension Medications and Allergies Home Medications Medication Instructions Recorded Confirmed Type Atorvastatin [Lipitor] 80 mg PO HS 05/26/17 11/18/20 History Tamsulosin HCl [Flomax] 0.4 mg PO DAILY 05/26/17 11/18/20 History Aspirin EC [Ecotrin Low Dose] 81 mg PO DAILY 02/12/18 11/18/20 History calcitrioL [Calcitriol] 0.25 mcg PO MOTUTHSA 10/07/18 11/18/20 History Mirabegron [Myrbetriq] 50 mg PO DAILY 05/17/19 11/18/20 History Clopidogrel [Plavix] 75 mg PO DAILY 12/08/19 11/18/20 History Midodrine HCl [ProAmantine] 2.5 mg PO TID PRN 12/08/19 11/18/20 History Benzoyl Peroxide 1 applic TOPICAL DAILY 11/18/20 11/18/20 History Cetirizine HCl [Zyrtec] 10 mg PO DAILY 11/18/20 11/18/20 History Famotidine [Pepcid] 20 mg PO BID 11/18/20 11/18/20 History Ferrous Sulfate [Feosol] 325 mg PO BID 11/18/20 11/18/20 History Ketoconazole [Nizoral A-D] 1 applic TOPICAL DIRECTED 11/18/20 11/18/20 H istory Sertraline HCl [Zoloft] 50 mg PO DAILY 11/18/20 11/18/20 History Allergies Allergy/AdvReac Type Severity Reaction Status Date / Time No Known Allergies Allergy Verified 11/18/20 18:46 Physical Exam Vitals: Vital Signs Temp Pulse Pulse Pulse Pulse Pulse Resp 11/19/20 08:00 98 F 62 20 11/19/20 03:40 63 17 11/19/20 01:22 73 19 11/19/20 00:10 98.9 F 73 19 11/18/20 22:04 11/18/20 21:50 11/18/20 21:20 98.2 F 72 18 11/18/20 19:33 86 87 64 18 11/18/20 18:35 98.1 F 74 16 11/18/20 16:32 97.9 F 62 16 11/18/20 15:27 98.3 F 62 16 BP BP BP BP BP BP Pulse Ox 11/19/20 08:00 179/88 96 11/19/20 03:40 159/81 100 11/19/20 01:22 11/19/20 00:10 150/80 97 11/18/20 22:04 198/105 11/18/20 21:50 166/96 11/18/20 21:20 213/101 11/18/20 19:33 189/115 143/94 185/108 98 11/18/20 18:35 146/95 98 11/18/20 16:32 138/82 98 11/18/20 15:27 142/84 98 Intake and Output 11/18/20 11/19/20 11/19/20 22:59 06:59 14:59 Intake Total 10 Balance 10 Intake: IV 10 Invasive Line 2 10 Other: Voiding Method Toilet Urinal # Voids 2 Weight 88.451 kg 87.3 kg Results CBC & Chem 7: 11/19/20 07:22 11/19/20 07:22 Labs: Abnormal Lab Results - Last 24 Hours (Table) 11/18/20 11/18/20 11/18/20 Range/Units 16:04 16:04 16:04 RBC 3.80 L (4.30-5.90) m/uL Hgb 12.1 L (13.0-17.5) gm/dL Hct 36.9 L (39.0-53.0) % RDW 16.0 H (11.5-15.5) % D-Dimer 0.92 H (<0.60) mg/L FEU BUN 22 H (9-20) mg/dL Creatinine 1.54 H (0.66-1.25) mg/dL Glucose 100 H (74-99) mg/dL LDL Cholesterol, Calc (0-99) mg/dL 11/18/20 11/19/20 11/19/20 Range/Units 16:04 07:22 07:22 RBC 3.37 L (4.30-5.90) m/uL Hgb 10.8 L (13.0-17.5) gm/dL Hct 32.9 L (39.0-53.0) % RDW 16.1 H (11.5-15.5) % D-Dimer (<0.60) mg/L FEU BUN (9-20) mg/dL Creatinine 1.37 H (0.66-1.25) mg/dL Glucose (74-99) mg/dL LDL Cholesterol, Calc 131 H (0-99) mg/dL Thrombosis Risk Factor Assmnt - Choose All That Apply Each Factor Represents 1 point: Abnormal pulmonary function (COPD) Other Risk Factors: Yes Each Risk Factor Represents 2 Points: Age 61-74 years Other congenital or acquired thrombophilia - If yes, enter type in comment: No Thrombosis Risk Factor Assessment Total Risk Factor Score: 3 Thrombosis Risk Factor Assessment Level: Moderate Risk
[2020-11-19] MEDS: ATORVASTATIN 80 MG TAB PO SCH (21:09)
[2020-11-20] MEDS: cloNIDine HCL 0.2 MG TAB PO SCH ×4 (00:17→20:37)
[2020-11-20 02:00] LABS: Glucose,Whole Blood 113 mg/dL (75-99)
[2020-11-20] MEDS: SODIUM CHLORIDE 0.9% 1,000 ML IV SCH ×3 (02:58→20:36)
[2020-11-20 06:11] LABS: Glucose,Whole Blood 120 mg/dL (75-99)
[2020-11-20 07:45] LABS: Calcium 9.2 mg/dL (8.4-10.2); Potassium 3.8 mmol/L (3.5-5.1)
[2020-11-20] MEDS: SERTRALINE 50 MG TAB PO SCH (08:41)
[2020-11-20] MEDS: TAMSULOSIN 0.4 MG CAP.ER.24H PO SCH (08:41)
[2020-11-20] MEDS: FAMOTIDINE 20 MG TAB PO SCH ×2 (08:41→20:37)
[2020-11-20] MEDS: CLOPIDOGREL 75 MG TAB PO SCH (08:41)
[2020-11-20] MEDS: ASPIRIN 81 MG PO SCH (08:41)
[2020-11-20] MEDS: LORATADINE 10 MG TAB PO SCH (08:41)
[2020-11-20] MEDS: FERROUS SULFATE 325 MG TAB PO SCH ×2 (08:41→20:37)
[2020-11-20] MEDS: NON FORMULARY DRUG (Mirabegron [Myrbetriq] 50 MG Tab.Er.24h) PO SCH (08:44)
[2020-11-20] MEDS: BENZOYL PEROXIDE TOPICAL SCH (08:44)
[2020-11-20 11:51] LABS: Glucose,Whole Blood 111 mg/dL (75-99)
--- NOTE | 2020-11-20 13:57 | P.PN ---
Subjective Progress Note Date: 11/20/20 CHIEF COMPLAINT: Syncope HISTORY OF PRESENT ILLNESS: This is a 69-year-old male with a past medical history significant for hypertension, hyperlipidemia, CVA with left-sided weakness, TIA, and syncope. Patient follows in the office with Dr. Moctezuma. We have been asked to see the patient in consultation for syncope. Patient examined this morning at the bedside. Patient states that he was walking back from the bathroom at home when he began to feel dizzy. Patient states he felt like he was going to pass out. Patient states he did not actually pass out. However, according to the EMR it appears the patient may have passed out anywhere from 2- 15 minutes. The patient has been evaluated in the past for similiar episodes. He underwent an event monitor in 2018. Following that, the patient had a [employer] loop recorder inserted in 2018. The patient currently denies chest pain or pressure. He denies shortness of breath. He denies dizziness or lightheadedne ss. Orthostatic blood pressures obtained yesterday revealed blood pressure 185/101 supine, 189/115 sitting, and 143/94 standing. DIAGNOSTICS: EKG reveals sinus mechanism with T-wave inversions in inferolateral leads Chest xray no active cardiopulmonary disease Chest CTA: No evidence of pulmonary embolism Laboratory data: WBC 5.2. Hemoglobin 10.8. Platelet count 220. D-dimer 0.92. Sodium 138. Potassium 4.0. BUN 18. Creatinine 1.37. Troponin negative 3. Current home cardiac medications include Lipitor 80 mg daily, Plavix 75 mg daily, aspirin 81 mg daily, Midodrine 2.5 mg 3 times a day when necessary 11/20: Patient denies having any dizziness or lightheadedness. Repeat orthostatics are negative. Patient has been afebrile, heart rate 67, blood pressure 163/83. Pulse ox 95% on room air. Creatinine 1.23. Echocardiogram reveals EF of 55-60% with moderate concentric left hypertrophy, mild mitral regurgitation. No pericardial effusion. PHYSICAL EXAM: VITAL SIGNS: Reviewed. GENERAL: Well-developed in no acute distress. HEENT: Head is normocephalic. Pupils are equal, round. Sclerae anicteric. Mucous membranes of the mouth are moist. Neck supple. No JVD or thyromegaly LUNGS: Respirations even and unlabored. Lungs essentially clear to auscultation bilaterally. HEART: Regular rate and rhythm. S1 and S2 heard. ABDOMEN: Soft. Nondistended. Nontender. EXTREMITIES: Normal range of motion. No clubbing or cyanosis. Peripheral pulses intact. No lower extremity edema NEUROLOGIC: Awake and alert. Oriented x 3. ASSESSMENT: Pre-syncope Orthostatic changes without hypotension Hypertension Hyperlipidemia History of CVA/TIA History of syncope PLAN: Resume home cardiac medications. Repeat orthostatic blood pressures Spoke with [employer] device rep. Patient to have loop recorder interrogated today. Further recommendations pending patient's course Nurse practitioner note has been reviewed by physician. Signing provider agrees with the documented findings, assessment, and plan of care. Objective - Vital Signs Vital signs: Vital Signs Temp 96.8 F L 11/20/20 08:00 Pulse 67 11/20/20 08:00 Resp 18 11/20/20 08:00 BP 137/65 11/20/20 08:00 Pulse Ox 95 11/20/20 08:00 Intake & Output 11/19/20 11/20/20 11/20/20 18:59 06:59 18:59 Intake Total 425 1250 360 Output Total 0 Balance 425 1250 360 Weight 87.7 kg Intake: Intake, IV Titration 1250 Amount Sodium Chloride 0.9% 1, 1250 000 ml @ 100 mls/hr IV . Q10H [facility] Rx#:[id number] Oral 425 360 Output: Urine 0 - Labs CBC & Chem 7: 11/19/20 07:22 11/20/20 07:01 Labs: Abnormal Lab Results - Last 24 Hours (Table) 11/20/20 11/20/20 11/20/20 Range/Units 01:56 06:09 07:01 Glucose 107 H (74-99) mg/dL POC Glucose (mg/dL) 113 H 120 H (75-99) mg/dL 11/20/20 Range/Units 11:44 Glucose (74-99) mg/dL POC Glucose (mg/dL) 111 H (75-99) mg/dL
[2020-11-20 17:16] LABS: Glucose,Whole Blood 101 mg/dL (75-99)
--- NOTE | 2020-11-20 18:03 | P.PN ---
Progress Note - Text Progress Note Date: 11/20/20 Chief Complaint: Loss of consciousness History of presenting complaint.: This is a 69-year-old patient of Dr. chacko. Chronic stable medical conditions include GERD, hyperlipidemia, hypertension, primary osteoarthritis, left hemiparesis from prior stroke, BPH, obstructive sleep apnea does not use CPAP, chronic kidney dysfunction uses a cane/walker, stents in the brain. Patient now presents that he was apparently sitting in a chair and passed out for about 2-3 minutes but the paramedics. It was probably longer than that. This is happening to him in the past. No new weakness. No fever no chills. No chest pain or palpitation. Accu-Cheks was 136. No tongue biting or incontinence. Patient does complain of getting disease when he stands up. Back in November 2019 patient did have an EEG, 2-D echo, CT angiogram of the brain.- No significant abnormalities were detected. This morning sitting up in a chair. His back to his normal self. Admitted with episode of unconsciousness. Found to be orthostatic. Accepted hypertension. Started on Catapres. Today-feeling better. Sitting up in a chair. Blood pressure is running high this morning. Catapres dose increased to 0.2 mg 3 times a day. Eating well. Review of systems: Was done for constitutional, cardiovascular, GI, pulmonary. relevant finding as above Active Medications Aspirin (Aspirin 81 Mg) 81 mg PO DAILY [facility] Last Admin: 11/20/20 08:41 Dose: 81 mg Documented by: Atorvastatin Calcium (Atorvastatin 80 Mg Tab) [address] [facility] Last Admin: 11/19/20 21:09 Dose: 80 mg Documented by: Calcitriol (Calcitriol 0.25 Mcg Cap) 0.25 mcg PO MoTuThSa@0900 [facility] Last Admin: 11/20/20 08:41 Dose: 0.25 mcg Documented by: Clonidine (Clonidine Hcl 0.2 Mg Tab) 0.2 mg PO TID [facility] Last Admin: 11/20/20 16:07 Dose: 0.2 mg Documented by: Clopidogrel Bisulfate (Clopidogrel 75 Mg Tab) 75 mg PO DAILY [facility] Last Admin: 11/20/20 08:41 Dose: 75 mg Documented by: Famotidine (Famotidine 20 Mg Tab) 20 mg PO BID [facility] Last Admin: 11/20/20 08:41 Dose: 20 mg Documented by: Ferrous Sulfate (Ferrous Sulfate 325 Mg Tab) 325 mg PO BID [facility] Last Admin: 11/20/20 08:41 Dose: 325 mg Documented by: Sodium Chloride (Saline 0.9%) 1,000 mls @ 100 mls/hr IV .Q10H [facility] Last Admin: 11/20/20 02:58 Dose: 100 mls/hr Documented by: Loratadine (Loratadine 10 Mg Tab) 10 mg PO DAILY [facility] Last Admin: 11/20/20 08:41 Dose: 10 mg Documented by: Midodrine (Midodrine 5 Mg Tab) 2.5 mg PO TID PRN PRN Reason: LOW BLOOD PRESSURE Non-Formulary Medication (Mirabegron [Myrbetriq]) 50 mg PO DAILY [facility] Last Admin: 11/20/20 08:44 Dose: Not Given Documented by: Non-Formulary Medication (Benzoyl Peroxide [Benzoyl Peroxide]) 1 applic TOPICAL DAILY [facility] Last Admin: 11/20/20 08:44 Dose: Not Given Documented by: Sertraline HCl (Sertraline 50 Mg Tab) 50 mg PO DAILY [facility] Last Admin: 11/20/20 08:41 Dose: 50 mg Documented by: Tamsulosin HCl (Tamsulosin 0.4 Mg Cap.Er.24h) 0.4 mg PO DAILY [facility] Last Admin: 11/20/20 08:41 Dose: 0.4 mg Documented by: Past history to include: GERD, hyperlipidemia, hypertension, primary osteoarthritis, left hemiparesis from prior stroke in 2017 and dysphagia did have a PEG tube temporarily., BPH, obstructive sleep apnea but does not use CPAP, gait dysfunction, some stents of the brain, TIA, scrotal abscess Social history: . Does use a cane and a walker. No alcohol since 2016. Patient smoked for 50 years a pack a day stopped in 2016. On examination: VITAL SIGNS: 96.8, 67, 18, 163/83, 95% room air GENERAL APPEARANCE: Reclining in a chair comfortable HEENT: Normal external appearance of nose and ear. Oral cavity normal EYES: Pupils equal. Conjunctiva normal. NECK: JVD not raised. Mass not palpable. RESPIRATORY: Respiratory effort normal. Lungs decreased breath sounds. CARDIOVASCULAR: First and second sounds normal. No edema. ABDOMEN: Soft. Liver and spleen not palpable. No tenderness. No mass palpable, PSYCHIATRY: Alert and oriented x3. Mood and affect normal. NEUROLOGICAL: Left-sided weakness power 3/5 INVESTIGATIONS, reviewed in the clinical context: November 20: Potassium 3.8 creatinine 1.23 White count 5.4 hemoglobin 12.1 platelets 250 potassium 4.3 bun 22 creatinine 1.5 for EKG tracing personally reviewed by me-normal sinus rhythm nonspecific T-wave changes inferolateral leads Previous testing: Bun 19 creatinine 1.16 on December 2019 Assessment: -Episode of unconsciousness lasting for a few minutes. No supportive history suggestive of any seizures at this point. Patient has a loop recorder. That'll be interrogated. -Orthostatic hypertension -Possible chronic kidney disease stage III -GERD -Hyperlipidemia -Essential hypertension-accelerated. Note that patient takes midodrine at home. Likely labile. Catapres dose increased to 0.2 mg 3 times a day -Primary osteoarthritis -Normocytic anemia. -Left hemiparesis from a prior stroke -BPH -Obstructive sleep apnea does not use a CPAP -Chronic gait dysfunction uses a cane/walker -Stents in the brain Plan: We'll see how patient's blood pressure goes today. Discussed with the patient. Loop recorder interrogation results pending
[2020-11-20 20:37] LABS: Glucose,Whole Blood 119 mg/dL (75-99)
[2020-11-20] MEDS: ATORVASTATIN 80 MG TAB PO SCH (20:37)
[2020-11-21 02:01] LABS: Glucose,Whole Blood 118 mg/dL (75-99)
[2020-11-21 06:23] LABS: Glucose,Whole Blood 103 mg/dL (75-99)
[2020-11-21] MEDS: SODIUM CHLORIDE 0.9% 1,000 ML IV SCH ×2 (06:34→19:08)
[2020-11-21] MEDS: NON FORMULARY DRUG (Mirabegron [Myrbetriq] 50 MG Tab.Er.24h) PO SCH (09:06)
[2020-11-21] MEDS: BENZOYL PEROXIDE TOPICAL SCH (09:06)
[2020-11-21] MEDS: FAMOTIDINE 20 MG TAB PO SCH ×2 (09:36→20:29)
[2020-11-21] MEDS: ASPIRIN 81 MG PO SCH (09:36)
[2020-11-21] MEDS: SERTRALINE 50 MG TAB PO SCH (09:36)
[2020-11-21] MEDS: FERROUS SULFATE 325 MG TAB PO SCH ×2 (09:36→20:29)
[2020-11-21] MEDS: CLOPIDOGREL 75 MG TAB PO SCH (09:36)
[2020-11-21] MEDS: cloNIDine HCL 0.2 MG TAB PO SCH ×3 (09:36→20:29)
[2020-11-21] MEDS: LORATADINE 10 MG TAB PO SCH (09:37)
[2020-11-21] MEDS: TAMSULOSIN 0.4 MG CAP.ER.24H PO SCH (09:37)
--- NOTE | 2020-11-21 11:24 | P.PN ---
Subjective Progress Note Date: 11/21/20 CHIEF COMPLAINT: Syncope HISTORY OF PRESENT ILLNESS: This is a 69-year-old male with a past medical history significant for hypertension, hyperlipidemia, CVA with left-sided weakness, TIA, and syncope. Patient follows in the office with Dr. Moctezuma. We have been asked to see the patient in consultation for syncope. Patient examined this morning at the bedside. Patient states that he was walking back from the bathroom at home when he began to feel dizzy. Patient states he felt like he was going to pass out. Patient states he did not actually pass out. However, according to the EMR it appears the patient may have passed out anywhere from 2- 15 minutes. The patient has been evaluated in the past for similiar episodes. He underwent an event monitor in 2018. Following that, the patient had a [employer] loop recorder inserted in 2018. The patient currently denies chest pain or pressure. He denies shortness of breath. He denies dizziness or lightheadedne ss. Orthostatic blood pressures obtained yesterday revealed blood pressure 185/101 supine, 189/115 sitting, and 143/94 standing. DIAGNOSTICS: EKG reveals sinus mechanism with T-wave inversions in inferolateral leads Chest xray no active cardiopulmonary disease Chest CTA: No evidence of pulmonary embolism Laboratory data: WBC 5.2. Hemoglobin 10.8. Platelet count 220. D-dimer 0.92. Sodium 138. Potassium 4.0. BUN 18. Creatinine 1.37. Troponin negative 3. Current home cardiac medications include Lipitor 80 mg daily, Plavix 75 mg daily, aspirin 81 mg daily, Midodrine 2.5 mg 3 times a day when necessary 11/20: Patient denies having any dizziness or lightheadedness. Repeat orthostatics are negative. Patient has been afebrile, heart rate 67, blood pressure 163/83. Pulse ox 95% on room air. Creatinine 1.23. Echocardiogram reveals EF of 55-60% with moderate concentric left hypertrophy, mild mitral regurgitation. No pericardial effusion. 11/21: Patient's blood pressure has been running high at 189/[address] Dexter increased clonidine from 0.1 mg to 0.2 mg 3 times daily. Heart rate in the 50s and 60s, pulse ox 99% on room air. No repeat orthostatics. The patient denies having any concerns today. No chest pain, no lightheadedness or dizziness. No shortness of breath. PHYSICAL EXAM: VITAL SIGNS: Reviewed. GENERAL: Well-developed in no acute distress. HEENT: Head is normocephalic. Pupils are equal, round. Sclerae anicteric. Mucous membranes of the mouth are moist. Neck supple. No JVD or thyromegaly LUNGS: Respirations even and unlabored. Lungs essentially clear to auscultation bilaterally. HEART: Regular rate and rhythm. S1 and S2 heard. ABDOMEN: Soft. Nondistended. Nontender. EXTREMITIES: Normal range of motion. No clubbing or cyanosis. Peripheral pulses intact. No lower extremity edema NEUROLOGIC: Awake and alert. Oriented x 3. ASSESSMENT: Pre-syncope Orthostatic changes without hypotension Hypertension Hyperlipidemia History of CVA/TIA History of syncope PLAN: Resume home cardiac medications. Monitor blood pressure closely Spoke with [employer] device rep. Patient to have loop recorder interrogated today. Further recommendations pending patient's course Nurse practitioner note has been reviewed by physician. Signing provider agrees with the documented findings, assessment, and plan of care. Objective - Vital Signs Vital signs: Vital Signs Temp 98.3 F 11/21/20 04:00 Pulse 64 11/21/20 08:00 Resp 16 11/21/20 08:00 BP 190/94 11/21/20 08:00 Pulse Ox 99 11/21/20 08:00 Intake & Output 11/20/20 11/21/20 11/21/20 18:59 06:59 18:59 Intake Total 1600 0 Balance 1600 0 Weight 88.3 kg Intake: Intake, IV Titration 1000 Amount Sodium Chloride 0.9% 1, 1000 000 ml @ 100 mls/hr IV . Q10H [facility] Rx#:[id number] Oral 600 0 Other: Voiding Method Toilet Urinal # Voids 3 2 2 - Labs CBC & Chem 7: 11/19/20 07:22 11/20/20 07:01 Labs: Abnormal Lab Results - Last 24 Hours (Table) 11/20/20 11/20/20 11/20/20 Range/Units 11:44 17:15 20:36 POC Glucose (mg/dL) 111 H 101 H 119 H (75-99) mg/dL 11/21/20 11/21/20 Range/Units 01:58 06:17 POC Glucose (mg/dL) 118 H 103 H (75-99) mg/dL
[2020-11-21 12:22] LABS: Glucose,Whole Blood 128 mg/dL (75-99)
[2020-11-21 17:10] LABS: Glucose,Whole Blood 123 mg/dL (75-99)
--- NOTE | 2020-11-21 19:29 | P.PN ---
Progress Note - Text Progress Note Date: 11/21/20 Chief Complaint: Loss of consciousness History of presenting complaint.: This is a 69-year-old patient of Dr. chacko. Chronic stable medical conditions include GERD, hyperlipidemia, hypertension, primary osteoarthritis, left hemiparesis from prior stroke, BPH, obstructive sleep apnea does not use CPAP, chronic kidney dysfunction uses a cane/walker, stents in the brain. Patient now presents that he was apparently sitting in a chair and passed out for about 2-3 minutes but the paramedics. It was probably longer than that. This is happening to him in the past. No new weakness. No fever no chills. No chest pain or palpitation. Accu-Cheks was 136. No tongue biting or incontinence. Patient does complain of getting disease when he stands up. Back in November 2019 patient did have an EEG, 2-D echo, CT angiogram of the brain.- No significant abnormalities were detected. This morning sitting up in a chair. His back to his normal self. Admitted with episode of unconsciousness. Found to be orthostatic. Labile hypertension. Started on Catapres. Today-blood pressure continues to fluctuate. Otherwise eating well. No other passing out episodes. present. Review of systems: Was done for constitutional, cardiovascular, GI, pulmonary. relevant finding as above Active Medications Aspirin (Aspirin 81 Mg) 81 mg PO DAILY [facility] Last Admin: 11/21/20 09:36 Dose: 81 mg Documented by: Atorvastatin Calcium (Atorvastatin 80 Mg Tab) 80 mg PO HS [facility] Last Admin: 11/20/20 20:37 Dose: 80 mg Documented by: Calcitriol (Calcitriol 0.25 Mcg Cap) 0.25 mcg PO MoTuThSa@0900 [facility] Last Admin: 11/20/20 08:41 Dose: 0.25 mcg Documented by: Clonidine (Clonidine Hcl 0.2 Mg Tab) 0.2 mg PO TID [facility] Last Admin: 11/21/20 17:54 Dose: 0.2 mg Documented by: Clopidogrel Bisulfate (Clopidogrel 75 Mg Tab) 75 mg PO DAILY [facility] Last Admin: 11/21/20 09:36 Dose: 75 mg Documented by: Famotidine (Famotidine 20 Mg Tab) 20 mg PO BID [facility] Last Admin: 11/21/20 09:36 Dose: 20 mg Documented by: Ferrous Sulfate (Ferrous Sulfate 325 Mg Tab) 325 mg PO BID [facility] Last Admin: 11/21/20 09:36 Dose: 325 mg Documented by: Sodium Chloride (Saline 0.9%) 1,000 mls @ 100 mls/hr IV .Q10H [facility] Last Admin: 11/21/20 19:08 Dose: Not Given Documented by: Loratadine (Loratadine 10 Mg Tab) 10 mg PO DAILY [facility] Last Admin: 11/21/20 09:37 Dose: 10 mg Documented by: Midodrine (Midodrine 5 Mg Tab) 2.5 mg PO TID PRN PRN Reason: LOW BLOOD PRESSURE Non-Formulary Medication (Mirabegron [Myrbetriq]) 50 mg PO DAILY [facility] Last Admin: 11/21/20 09:06 Dose: Not Given Documented by: Non-Formulary Medication (Benzoyl Peroxide [Benzoyl Peroxide]) 1 applic TOPICAL DAILY [facility] Last Admin: 11/21/20 09:06 Dose: Not Given Documented by: Sertraline HCl (Sertraline 50 Mg Tab) 50 mg PO DAILY [facility] Last Admin: 11/21/20 09:36 Dose: 50 mg Documented by: Tamsulosin HCl (Tamsulosin 0.4 Mg Cap.Er.24h) 0.4 mg PO DAILY [facility] Last Admin: 11/21/20 09:37 Dose: 0.4 mg Documented by: Past history to include: GERD, hyperlipidemia, hypertension, primary osteoarthritis, left hemiparesis from prior stroke in 2017 and dysphagia did have a PEG tube temporarily., BPH, obstructive sleep apnea but does not use CPAP, gait dysfunction, some stents of the brain, TIA, scrotal abscess Social history: . Does use a cane and a walker. No alcohol since 2016. Patient smoked for 50 years a pack a day stopped in 2016. On examination: VITAL SIGNS: 79, 18, 163/93, 97% room air GENERAL APPEARANCE: Reclining in a chair comfortable HEENT: Normal external appearance of nose and ear. Oral cavity normal EYES: Pupils equal. Conjunctiva normal. NECK: JVD not raised. Mass not palpable. RESPIRATORY: Respiratory effort normal. Lungs decreased breath sounds. CARDIOVASCULAR: First and second sounds normal. No edema. ABDOMEN: Soft. Liver and spleen not palpable. No tenderness. No mass palpable, PSYCHIATRY: Alert and oriented x3. Mood and affect normal. NEUROLOGICAL: Left-sided weakness power 3/5 INVESTIGATIONS, reviewed in the clinical context: November 20: Potassium 3.8 creatinine 1.23 White count 5.4 hemoglobin 12.1 platelets 250 potassium 4.3 bun 22 creatinine 1.5 for EKG tracing personally reviewed by me-normal sinus rhythm nonspecific T-wave changes inferolateral leads Previous testing: Bun 19 creatinine 1.16 on December 2019 Assessment: -Episode of unconsciousness lasting for a few minutes. No supportive history suggestive of any seizures at this point. Patient has a loop recorder.- interrogated. -Orthostatic hypertension -Possible chronic kidney disease stage III -GERD -Hyperlipidemia -Essential hypertension-accelerated. Note that patient takes midodrine at home. Likely labile. Catapres dose increased to 0.2 mg 3 times a day -Primary osteoarthritis -Normocytic anemia. -Left hemiparesis from a prior stroke -BPH -Obstructive sleep apnea does not use a CPAP -Chronic gait dysfunction uses a cane/walker -Stents in the brain Plan: Care was discussed with the patient and at the bedside. Questions answered. I think the current blood pressure level may be acceptable. Possible discharge tomorrow.
[2020-11-21 20:02] LABS: Glucose,Whole Blood 118 mg/dL (75-99)
[2020-11-21] MEDS: ATORVASTATIN 80 MG TAB PO SCH (20:29)
[2020-11-22 02:11] LABS: Glucose,Whole Blood 147 mg/dL (75-99)
[2020-11-22] MEDS: SODIUM CHLORIDE 0.9% 1,000 ML IV SCH ×2 (04:29→12:39)
[2020-11-22 06:23] LABS: Glucose,Whole Blood 148 mg/dL (75-99)
[2020-11-22 10:12] VITALS: TEMP 98.2
[2020-11-22] MEDS: CLOPIDOGREL 75 MG TAB PO SCH (10:21)
[2020-11-22] MEDS: TAMSULOSIN 0.4 MG CAP.ER.24H PO SCH (10:22)
[2020-11-22] MEDS: FAMOTIDINE 20 MG TAB PO SCH (10:22)
[2020-11-22] MEDS: SERTRALINE 50 MG TAB PO SCH (10:22)
[2020-11-22] MEDS: ASPIRIN 81 MG PO SCH (10:22)
[2020-11-22] MEDS: FERROUS SULFATE 325 MG TAB PO SCH (10:22)
[2020-11-22] MEDS: cloNIDine HCL 0.2 MG TAB PO SCH ×2 (10:22→16:26)
[2020-11-22] MEDS: LORATADINE 10 MG TAB PO SCH (10:22)
[2020-11-22] MEDS: BENZOYL PEROXIDE TOPICAL SCH (10:25)
[2020-11-22] MEDS: NON FORMULARY DRUG (Mirabegron [Myrbetriq] 50 MG Tab.Er.24h) PO SCH (10:25)
[2020-11-22 11:27] LABS: Glucose,Whole Blood 119 mg/dL (75-99)
[2020-11-22 12:37] VITALS: RESP 16
--- NOTE | 2020-11-22 14:51 | P.PN ---
Subjective This is a pleasant 69-year-old [place] male past medical history significant for hypertension, dyslipidemia, CVA with left-sided residual w eakness and frequent TIAs. He follows in the office with Dr. Moctezuma. He is seen and examined sitting up in bed in no acute distress. He appears confused at baseline but does answer yes or no questions. He denies symptoms of chest pain, shortness of breath, dizziness or palpitations. Blood pressure 110/69 heart rate 88. Orthostatic vital signs obtained this morning reveal a supine blood pressure 163/86, sitting 124/67 and standing 112/69. Loop recorder interrogation reveals no evidence of an acute arrhythmia. Currently maintained on aspirin 81 mg daily, atorvastatin 80 mg daily, clonidine 0.2 mg 3 times a day, Plavix 75 mg daily and midodrine when necessary. GENERAL: Well-appearing, well-nourished and in no acute distress. NECK: Supple without JVD or thyromegaly. LUNGS: Breath sounds clear to auscultation bilaterally. Respiration equal and unlabored. No wheezes, rales or rhonchi. HEART: Regular rate and rhythm without murmurs, rubs or gallops. S1 and S2 heard. EXTREMITIES: Normal range of motion, no edema. No clubbing or cyanosis. Peripheral pulses intact. ASSESSMENT Near syncope Orthostatic changes Hypertension Dyslipidemia History of CVA PLAN Clinically stable from a cardiac perspective. Follow-up with Dr. Moctezuma upon discharge. We will follow along as needed. Nurse Practitioner note has been reviewed, I agree with a documented findings and plan of care. Patient was seen and examined. Objective - Vital Signs Vital signs: Vital Signs Temp 98.2 F 11/22/20 09:55 Pulse 88 11/22/20 09:58 Resp 18 11/22/20 09:55 BP 110/69 11/22/20 09:58 Pulse Ox 98 11/22/20 09:55 Intake & Output 11/21/20 11/22/20 11/22/20 18:59 06:59 18:59 Intake Total 600 Balance 600 Weight 88.1 kg Intake: Oral 600 Other: Voiding Method Toilet Urinal # Voids 2 1 # Bowel Movements 0 - Labs CBC & Chem 7: 11/19/20 07:22 11/20/20 07:01 Labs: Abnormal Lab Results - Last 24 Hours (Table) 11/21/20 11/21/20 11/21/20 Range/Units 11:53 17:05 20:01 POC Glucose (mg/dL) 128 H 123 H 118 H (75-99) mg/dL 11/22/20 11/22/20 11/22/20 Range/Units 02:09 06:22 11:26 POC Glucose (mg/dL) 147 H 148 H 119 H (75-99) mg/dL
--- NOTE | 2020-11-22 16:14 | P.PN ---
Subjective Progress Note Date: 11/22/20 Patient was seen for a follow-up. Patient initially seen by Dr. Carlos Young in consultation on 11/19/2020. Please refer to his note for details. Patient has been seen by myself also in November 2019. Patient at present feels fine. No further syncopal spells. Patient states that he was walking, got dizzy, sat down and then went to sleep. He had another episode about a week prior, when he was getting dressed to go to the doctor's office, sat down and went to sleep. It was taking longer time to come back therefore he feels that he may have passed out. Patient's telemetry monitoring showing sinus rhythm, with sinus bradycardia, PACs, PVCs. Patient states that he does have history of sleep apnea, but does not use CPAP machine. He does have excessive daytime sleepiness, take short naps during the day "quite a few" as he states. Objective - Vital Signs Vital signs: Vital Signs Temp 98.2 F 11/22/20 09:55 Pulse 63 11/22/20 12:15 Resp 16 11/22/20 12:15 BP 185/91 11/22/20 12:15 Pulse Ox 96 11/22/20 12:15 Intake & Output 11/21/20 11/22/20 11/22/20 18:59 06:59 18:59 Intake Total 600 1050 Balance 600 1050 Weight 88.1 kg Intake: Intake, IV Titration 800 Amount Sodium Chloride 0.9% 1, 800 000 ml @ 100 mls/hr IV . Q10H [facility] Rx#:[id number] Oral 600 250 Other: Voiding Method Toilet Urinal # Voids 2 1 1 # Bowel Movements 0 - Exam Patient is alert and awake in no distress. Speech and language functions are normal. Cranial nerves are normal. Visual fierro full. Muscle strength testing there is no drift and the strength is normal in arms and legs. No ataxia. Sensations equal. - Labs CBC & Chem 7: 11/19/20 07:22 11/20/20 07:01 Labs: Abnormal Lab Results - Last 24 Hours (Table) 11/21/20 11/21/20 11/22/20 Range/Units 17:05 20:01 02:09 POC Glucose (mg/dL) 123 H 118 H 147 H (75-99) mg/dL 11/22/20 11/22/20 Range/Units 06:22 11:26 POC Glucose (mg/dL) 148 H 119 H (75-99) mg/dL Assessment and Plan Assessment: * Syncopal spell, orthostasis. Rule out arrhythmia. * Obstructive sleep apnea, not being treated. * Hypertension * History of CVA * X tobacco use Plan: * Continue midodrine. * Continue dual antiplatelet medications and statins. * 2-D echo showed moderate concentric LVH. EF is 55-60%. Normal left atrial size. * Patient had a normal CTA of head and neck reported 12/08/2019. * Patient had multiple EEGs that were normal. * Suggest patient follow up with sleep specialist for obstructive sleep apnea. He is currently not using any CPAP machine. He does have excessive daytime sleepiness. Patient may have sleep onset REM, which may makes him difficult waking up. * Cardiology on board. * Neurologically clear.
[2020-11-22 16:26] VITALS: BP 132/80; PULSE 70
--- NOTE | 2020-11-23 00:47 | P.DS ---
Providers Date of admission: 11/20/20 22:52 Expected date of discharge: 11/22/20 Attending physician: Adams Dexter Consults: 11/18/20 18:58 Consult Physician Routine Consulting Provider: Carlos Young Consult Reason/Comments: Syncope Do you want consulting provider notified?: Yes 11/19/20 10:21 Consult Physician Routine Consulting Provider: Chris Gibson Consult Reason/Comments: syncope Do you want consulting provider notified?: Yes Primary care physician: Rick Luke [facility] Course: Chief Complaint: Loss of consciousness History of presenting complaint.: This is a 69-year-old patient of Dr. luke. Chronic stable medical conditions include GERD, hyperlipidemia, hypertension, primary osteoarthritis, left hemiparesis from prior stroke, BPH, obstructive sleep apnea does not use CPAP, chronic kidney dysfunction uses a cane/walker, stents in the brain. Patient now presents that he was apparently sitting in a chair and passed out for about 2-3 minutes but the paramedics. It was probably longer than that. This is happening to him in the past. No new weakness. No fever no chills. No chest pain or palpitation. Accu-Cheks was 136. No tongue biting or incontinence. Patient does complain of getting disease when he stands up. Back in November 2019 patient did have an EEG, 2-D echo, CT angiogram of the brain.- No significant abnormalities were detected. This morning sitting up in a chair. His back to his normal self. Admitted with episode of unconsciousness. Found to be orthostatic. Labile hypertension. Started on Catapres. Today-blood pressure continues to fluctuate. Discussed with the patient. Distant the current medications. By neurology patient to follow-up with his sleep specialist. Consultation: [facility] Past history to include: GERD, hyperlipidemia, hypertension, primary osteoarthritis, left hemiparesis from prior stroke in 2017 and dysphagia did have a PEG tube temporarily., BPH, obstructive sleep apnea but does not use CPAP, gait dysfunction, some stents of the brain, TIA, scrotal abscess Social history: . Does use a cane and a walker. No alcohol since 2016. Patient smoked for 50 years a pack a day stopped in 2016. On examination: VITAL SIGNS: 70, 16, 132/80, 97% room air GENERAL APPEARANCE: Reclining in a chair comfortable HEENT: Normal external appearance of nose and ear. Oral cavity normal EYES: Pupils equal. Conjunctiva normal. NECK: JVD not raised. Mass not palpable. RESPIRATORY: Respiratory effort normal. Lungs decreased breath sounds. CARDIOVASCULAR: First and second sounds normal. No edema. ABDOMEN: Soft. Liver and spleen not palpable. No tenderness. No mass palpable, PSYCHIATRY: Alert and oriented x3. Mood and affect normal. NEUROLOGICAL: Left-sided weakness power 3/5 INVESTIGATIONS, reviewed in the clinical context: November 20: Potassium 3.8 creatinine 1.23 White count 5.4 hemoglobin 12.1 platelets 250 potassium 4.3 bun 22 creatinine 1.5 for EKG tracing personally reviewed by me-normal sinus rhythm nonspecific T-wave changes inferolateral leads Previous testing: Bun 19 creatinine 1.16 on December 2019 Assessment: -Episode of unconsciousness lasting for a few minutes. No supportive history suggestive of any seizures at this point. Patient has a loop recorder.- interrogated. -Orthostatic hypertension-labile -Possible chronic kidney disease stage III -GERD -Hyperlipidemia -Essential hypertension-accelerated. Note that patient takes midodrine at home. Likely labile. Catapres dose increased to 0.2 mg 3 times a day -Primary osteoarthritis -Normocytic anemia. -Left hemiparesis from a prior stroke -BPH -Obstructive sleep apnea does not use a CPAP -Chronic gait dysfunction uses a cane/walker -Stents in the brain Disposition: Home Outpatient follow-up with sleep specialist through PCP Patient Condition at Discharge: Stable Plan - Discharge Summary Discharge Rx Participant: No New Discharge Prescriptions: New cloNIDine HCL [Catapres] 0.2 mg PO TID #90 tab Continue Atorvastatin [Lipitor] 80 mg PO HS Tamsulosin HCl [Flomax] 0.4 mg PO DAILY Aspirin EC [Ecotrin Low Dose] 81 mg PO DAILY calcitrioL [Calcitriol] 0.25 mcg PO MOTUTHSA Mirabegron [Myrbetriq] 50 mg PO DAILY Midodrine HCl [ProAmantine] 2.5 mg PO TID PRN PRN Reason: LOW BLOOD PRESSURE Clopidogrel [Plavix] 75 mg PO DAILY Sertraline HCl [Zoloft] 50 mg PO DAILY Ferrous Sulfate [Iron (65 MG Elemental)] 325 mg PO BID Cetirizine HCl [Zyrtec] 10 mg PO DAILY Ketoconazole [Nizoral A-D] 1 applic TOPICAL DIRECTED Famotidine [Pepcid] 20 mg PO BID Benzoyl Peroxide 1 applic TOPICAL DAILY Discharge Medication List Atorvastatin [Lipitor] 80 mg PO HS 05/26/17 [History] Tamsulosin HCl [Flomax] 0.4 mg PO DAILY 05/26/17 [History] Aspirin EC [Ecotrin Low Dose] 81 mg PO DAILY 02/12/18 [History] calcitrioL [Calcitriol] 0.25 mcg PO MOTUTHSA 10/07/18 [History] Mirabegron [Myrbetriq] 50 mg PO DAILY 05/17/19 [History] Clopidogrel [Plavix] 75 mg PO DAILY 12/08/19 [History] Midodrine HCl [ProAmantine] 2.5 mg PO TID PRN 12/08/19 [History] Benzoyl Peroxide 1 applic TOPICAL DAILY 11/18/20 [History] Cetirizine HCl [Zyrtec] 10 mg PO DAILY 11/18/20 [History] Famotidine [Pepcid] 20 mg PO BID 11/18/20 [History] Ferrous Sulfate [Iron (65 MG Elemental)] 325 mg PO BID 11/18/20 [History] Ketoconazole [Nizoral A-D] 1 applic TOPICAL DIRECTED 11/18/20 [History] Sertraline HCl [Zoloft] 50 mg PO DAILY 11/18/20 [History] cloNIDine HCL [Catapres] 0.2 mg PO TID #90 tab 11/22/20 [Rx] Follow up Appointment(s)/Referral(s): [facility], [NON-STAFF] - Dino Mcghee MD [REFERRING] - 1 Week Baron Moctezuma MD [STAFF PHYSICIAN] - 12/07/20 2:30 pm (On [email or web address] [place]) Rick Luke MD [Primary Care Provider] - 11/29/20 3:40 pm Patient Instructions/Handouts: Syncope (DC) Activity/Diet/Wound Care/Special Instructions: fall precautions Discharge Disposition: HOME SELF-CARE
== END 2020-11-22 16:50 | disposition home or self-care (01) | DRG 683 ==
LOC: EC 15:25 → 3SCARD 18:57 → OBSVTOIN 11-20 22:52
PROVIDERS: ADMIT Hospitalist; ATTEND Hospitalist
PROC: 4A12X4Z Monitoring of Cardiac Electrical Activity, External Approach (ICD-10-PCS; principal; 2020-11-20)
DX: I12.9 Hypertensive chronic kidney disease with stage 1 through stage 4 chronic kidney disease, or unspecified chronic kidney disease (principal); I69.354 Hemiplegia and hemiparesis following cerebral infarction affecting left non-dominant side; K21.9 Gastro-esophageal reflux disease without esophagitis; E78.5 Hyperlipidemia, unspecified; N18.30 Chronic kidney disease, stage 3 unspecified; G47.33 Obstructive sleep apnea (adult) (pediatric); R26.9 Unspecified abnormalities of gait and mobility; J44.9 Chronic obstructive pulmonary disease, unspecified; M89.49 Other hypertrophic osteoarthropathy, multiple sites; Z96.651 Presence of right artificial knee joint; N40.0 Benign prostatic hyperplasia without lower urinary tract symptoms; D63.1 Anemia in chronic kidney disease; Z45.09 Encounter for adjustment and management of other cardiac device; Z95.828 Presence of other vascular implants and grafts; Z86.73 Personal history of transient ischemic attack (TIA), and cerebral infarction without residual deficits; Z87.891 Personal history of nicotine dependence; Z87.438 Personal history of other diseases of male genital organs; Z86.69 Personal history of other diseases of the nervous system and sense organs; Z87.440 Personal history of urinary (tract) infections; Z98.42 Cataract extraction status, left eye; Z98.41 Cataract extraction status, right eye; Z87.11 Personal history of peptic ulcer disease; Z98.890 Other specified postprocedural states; Z86.19 Personal history of other infectious and parasitic diseases; Z82.49 Family history of ischemic heart disease and other diseases of the circulatory system; Z83.3 Family history of diabetes mellitus; Z83.49 Family history of other endocrine, nutritional and metabolic diseases; Z82.3 Family history of stroke; Z79.02 Long term (current) use of antithrombotics/antiplatelets; Z79.82 Long term (current) use of aspirin; Z79.899 Other long term (current) drug therapy
CPT/HCPCS: 36415; 71046; 71275; 80048; 80053; 80061; 81003; 82550; 83036; 83735; 84484; 85025; 85379; 85610; 85730; 93005; 93306; 94760; 96360; 96361; 99285

== ENCOUNTER 2020-11-22 19:18 | Emergency (ER) | payer MEDICARE, OTHER ==
[2020-11-22 19:27] VITALS: RESP 16; TEMP 97.3
--- NOTE | 2020-11-22 19:49 | ED ---
General Adult HPI - General Chief complaint: Weakness Stated complaint: hypotension, weakness Time Seen by Provider: 11/22/20 19:33 Source: patient, EMS Mode of arrival: EMS Limitations: no limitations - History of Present Illness Initial comments: Dictation was produced using [employer] dictation software. please excuse any grammatical, word or spelling errors. This patient was cared for during a federal and state declared state of emergency secondary to Covid 19 Chief Complaint: 69-year-old male presents with TIA History of Present Illness: 69-year-old female is complaining by family member. Allegedly at around 4:30 today patient was discharged from the hospital. At home and was having a meal when take his oral clonidine. Her only after patient became rather lethargic according to family member at bedside. Family member as ked patient to stand up and he said he couldn't because his right leg felt weak. No member checked his blood pressure was found to be low with systolics measured in the 70s. Family member called the nurse at the hospital who was taking care of him recommended the patient be given submit a drain. Ultimately patient ended up in the emergency department. Patient reports that since being in the ER he feels at baseline. Patient has no complaints currently. at discharge patient was prescribed clonidine. According to family member patient has been having well controlled blood pressures. The ROS documented in this emergency department record has been reviewed and confirmed by me. Those systems with pertinent positive or negative responses have been documented in the HPI. All other systems are other negative and/or noncontributory. PHYSICAL EXAM: General Impression: Alert and oriented x3, not in acute distress HEENT: Normocephalic atraumatic, extra-ocular movements intact, pupils equal and reactive to light bilaterally, mucous membranes moist. Cardiovascular: Heart regular rate and rhythm Chest: Able to complete full sentences, no retractions, no tachypnea Abdomen: abdomen soft, non-tender, non-distended, no organomegaly Musculoskeletal: Pulses present and equal in all extremities, no peripheral edema Motor: no focal deficits noted Neurological: CN II-XII grossly intact, no focal motor or sensory deficits noted, NIH of 0 Skin: Intact with no visualized rashes Psych: Normal affect and mood ED course: 69-year-old male presents with transient neurologic deficit. Vital signs upon arrival are within acceptable limits. NIH of 0 EKG interpretation: Ventricular rate 65, normal sinus rhythm, WY interval 160, QRS 90, QTC 418. No WY prolongation, no QTC prolongation, no ST or T-wave changes noted. EKG compared to 04/18/2021 showing no changes. Overall, this EKG is unremarkable Laboratory evaluation obtained. CBC metabolic panel is unremarkable. Computed tomography scan of the brain is unremarkable. Patient observed in emergency department for approximately 2 hours stable medical condition. Patient's clinical presentation likely secondary to clonidine fact. Patient's blood pressure has been well-maintained wind emergency department. Patient reevaluated at 9:06 PM to be in stable medical condition. Family preferred to be discharged. They do have home healthcare double check on him. Family member bedside is told to check on him frequently and if he develops any recurrence of symptoms to report medially to the emergency department. There also told to his continue clonidine in the meantime default with primary care physician. - Related Data Home Medications Medication Instructions Recorded Confirmed Atorvastatin [Lipitor] 80 mg PO HS 05/26/17 11/22/20 Tamsulosin HCl [Flomax] 0.4 mg PO DAILY 05/26/17 11/22/20 Aspirin EC [Ecotrin Low Dose] 81 mg PO DAILY 02/12/18 11/22/20 calcitrioL [Calcitriol] 0.25 mcg PO MOTUTHSA 10/07/18 11/22/20 Mirabegron [Myrbetriq] 50 mg PO DAILY 05/17/19 11/22/20 Clopidogrel [Plavix] 75 mg PO DAILY 12/08/19 11/22/20 Midodrine HCl [ProAmantine] 2.5 mg PO TID PRN 12/08/19 11/22/20 Benzoyl Peroxide 1 applic TOPICAL DAILY 11/18/20 11/22/20 Cetirizine HCl [Zyrtec] 10 mg PO DAILY 11/18/20 11/22/20 Famotidine [Pepcid] 20 mg PO BID 11/18/20 11/22/20 Ferrous Sulfate [Iron (65 MG 325 mg PO BID 11/18/20 11/22/20 Elemental)] Ketoconazole [Nizoral A-D] 1 applic TOPICAL DIRECTED 11/18/20 11/22/20 Sertraline HCl [Zoloft] 50 mg PO DAILY 11/18/20 11/22/20 Previous Rx's Medication Instructions Recorded cloNIDine HCL [Catapres] 0.2 mg PO TID #90 tab 11/22/20 Allergies Allergy/AdvReac Type Severity Reaction Status Date / Time No Known Allergies Allergy Verified 11/22/20 20:11 Review of Systems ROS Statement: Those systems with pertinent positive or pertinent negative responses have been documented in the HPI. ROS Other: All systems not noted in ROS Statement are negative. Past Medical History Past Medical History: COPD, CVA/TIA, Eye Disorder, GERD/Reflux, Hyperlipidemia, Hypertension, Osteoarthritis (OA), Prostate Disorder, Renal Disease, Sleep Apnea/CPAP/BIPAP, Syncope Additional Past Medical History / Comment(s): pt is rt side dominant. hx ofMultiple TIAs, CVA 01/2017 with dysphagia-peg tube inserted and now out, has residual weakness lt arm/leg and some lt facial droop. chronic kidney disease BPH, Uti, ROSA has Cpap but does not tolerate it no longer using it, gastric ulcer, soniya eye cataracts, past hxR foot 3rd toe osteomylitis, arthritis multiple joints, past gastric ulcer, past hx shingels. , History of Any Multi-Drug Resistant Organisms: None Reported Past Surgical History: Hernia Repair, Joint Replacement Additional Past Surgical History / Comment(s): 06/01/17 intracranial angioplasty- (pt stated "he has stents') HFH, EGD with peg tube insertion since removed, R inguinal hernia repair, R total knee arthroplasty, colonoscopies with last one in 2019-normal., Past Anesthesia/Blood Transfusion Reactions: No Reported Reaction Past Psychological History: No Psychological Hx Reported Smoking Status: Former smoker Past Alcohol Use History: None Reported Past Drug Use History: None Reported - Past Family History Mother Family Medical History: CVA/TIA, Diabetes Mellitus, Hyperlipidemia, Hypertension Father Family Medical History: CVA/TIA, Hypertension General Exam Limitations: no limitations Course Vital Signs 11/22/20 11/22/20 11/22/20 19:19 20:00 20:30 Temperature 97.3 F L Pulse Rate 67 60 62 Respiratory 16 16 16 Rate Blood Pressure 128/85 187/96 178/95 O2 Sat by Pulse 96 98 98 Oximetry Medical Decision Making - Lab Data Result diagrams: 11/22/20 19:45 11/22/20 19:45 Lab Results 01/25/21 01/25/21 Range/Units 19:45 19:45 WBC 7.7 (3.8-10.6) k/uL RBC 3.60 L (4.30-5.90) m/uL Hgb 11.4 L (13.0-17.5) gm/dL Hct 34.8 L (39.0-53.0) % MCV 96.6 (80.0-100.0) fL MCH 31.8 (25.0-35.0) pg MCHC 32.9 (31.0-37.0) g/dL RDW 16.2 H (11.5-15.5) % Plt Count 256 (150-450) k/uL MPV 7.2 Neutrophils % 72 % Lymphocytes % 18 % Monocytes % 6 % Eosinophils % 2 % Basophils % 1 % Neutrophils # 5.6 (1.3-7.7) k/uL Lymphocytes # 1.4 (1.0-4.8) k/uL Monocytes # 0.5 (0-1.0) k/uL Eosinophils # 0.2 (0-0.7) k/uL Basophils # 0.1 (0-0.2) k/uL Anisocytosis Slight Sodium 138 (137-145) mmol/L Potassium 4.2 (3.5-5.1) mmol/L Chloride 105 (98-107) mmol/L Carbon Dioxide 23 (22-30) mmol/L Anion Gap 10 mmol/L BUN 20 (9-20) mg/dL Creatinine 1.40 H (0.66-1.25) mg/dL Est GFR (CKD-EPI)AfAm 59 (>60 ml/min/1.73 sqM) Est GFR (CKD-EPI)NonAf 51 (>60 ml/min/1.73 sqM) Glucose 115 H (74-99) mg/dL Calcium 9.3 (8.4-10.2) mg/dL Disposition Clinical Impression: Transient neurologic deficit Disposition: HOME SELF-CARE Condition: Fair Instructions (If sedation given, give patient instructions): Transient Ischemic Attack (ED) Additional Instructions: Seek medical attention immediately if you have any recurrence of stroke like symptoms including extremity weakness, extremity numbness or tingling, confusion and these could be signs of stroke otherwise follow-up as soon as possible with her primary care physician. Discontinue clonidine in the meantime Is patient prescribed a controlled substance at d/c from ED?: No Referrals: Rick Luke MD [Primary Care Provider] - 1-2 days Time of Disposition: 21:08
--- NOTE | 2020-11-22 20:29 | CT ---
EXAMINATION TYPE: CT brain wo con DATE OF EXAM: 11/22/2020 COMPARISON: 12/31/2019 HISTORY: Right leg weakness. CT DLP: 1149.4 mGycm Automated exposure control for dose reduction was used. There is cerebral cortical atrophy. There is patchy hypodensity in the periventricular white matter. There is no mass effect nor midline shift. There is no sign of intracranial hemorrhage. There is whit e matter hypodensity anterior right internal capsule consistent with old lacunar infarcts. There is a lso 7 mm old lacunar infarct left anterior internal capsule.. The calvarium is intact. Skull base is intact. There is some mucosal thickening in the ethmoid and sphenoid sinus. IMPRESSION: Cerebral atrophy and chronic small vessel ischemia. Old white matter lacunar infarcts. No change comp ared to old exam. There is some sphenoid and ethmoid mild sinusitis slightly worse than old exam.
[2020-11-22 20:37] LABS: Anisocytosis Slight; Basophils # (A) 0.1 k/uL (0-0.2); Basophils % (A) 1 %; Eosinophils # (A) 0.2 k/uL (0-0.7); Eosinophils % (A) 2 %; HCT 34.8 % (39.0-53.0); HGB 11.4 gm/dL (13.0-17.5); Lymphocytes # (A) 1.4 k/uL (1.0-4.8); Lymphocytes % (A) 18 %; MCH 31.8 pg (25.0-35.0); MCHC 32.9 g/dL (31.0-37.0); MCV 96.6 fL (80.0-100.0); Mean Platelet Volume 7.2; Monocytes # (A) 0.5 k/uL (0-1.0); Monocytes % (A) 6 %; Neutrophils # (A) 5.6 k/uL (1.3-7.7); Neutrophils % (A) 72 %; Platelet Count 256 k/uL (150-450); RDW 16.2 % (11.5-15.5); WBC 7.7 k/uL (3.8-10.6)
[2020-11-22 20:45] LABS: Calcium 9.3 mg/dL (8.4-10.2); Potassium 4.2 mmol/L (3.5-5.1)
[2020-11-22 21:19] VITALS: BP 186/95; PULSE 60
== END 2020-11-22 21:19 | disposition home or self-care (01) ==
LOC: EC 19:18
DX: R29.818 Other symptoms and signs involving the nervous system (principal); I69.354 Hemiplegia and hemiparesis following cerebral infarction affecting left non-dominant side; K21.9 Gastro-esophageal reflux disease without esophagitis; E78.5 Hyperlipidemia, unspecified; N40.0 Benign prostatic hyperplasia without lower urinary tract symptoms; I12.9 Hypertensive chronic kidney disease with stage 1 through stage 4 chronic kidney disease, or unspecified chronic kidney disease; N18.9 Chronic kidney disease, unspecified; G47.33 Obstructive sleep apnea (adult) (pediatric); M19.90 Unspecified osteoarthritis, unspecified site; Z79.899 Other long term (current) drug therapy; Z79.02 Long term (current) use of antithrombotics/antiplatelets; Z79.82 Long term (current) use of aspirin; Z87.891 Personal history of nicotine dependence; Z99.89 Dependence on other enabling machines and devices; Z87.19 Personal history of other diseases of the digestive system; Z82.49 Family history of ischemic heart disease and other diseases of the circulatory system; Z96.651 Presence of right artificial knee joint
CPT/HCPCS: 36415; 70450; 80048; 85025; 93005; 99285

== ENCOUNTER 2021-04-26 16:16 | Inpatient (IN) | payer MEDICARE, OTHER ==
[2021-04-26] MEDS ORDERED: SODIUM CHLORIDE 0.9% 500 ML 500 ML IV STA (16:19)
[2021-04-26] MEDS ORDERED: hydrALAZINE HCL 20 MG/ML 1 ML VIAL IVP STA ×2 (16:20→20:21)
[2021-04-26 16:30] LABS: Glucose,Whole Blood 121 mg/dL (75-99)
--- NOTE | 2021-04-26 16:33 | ED ---
General Adult HPI - General Stated complaint: dizzy Time Seen by Provider: 04/26/21 16:20 Source: patient, RN notes reviewed, old records reviewed - History of Present Illness Initial comments: This is a 70-year-old male who presents emergency Department stating he became very dizzy at home so they called EMS. Patient states he normally takes blood pressure medicine when he woke up but since he went to bed late he didn't wake up until just recently and he has yet to take his blood pressure medication. Patient denies headache. Patient denies numbness or weakness. Patient denies any visual disturbance. Patient denies any chest pain palpitations difficulty breathing shortness of breath. Patient denies any recent fever chills or cough. Patient states sitting in bed he has no symptoms well but when he stood up at home he felt like he is given a fall to the left. Patient in bed does not feel like he is falling to the left. - Related Data Home Medications Medication Instructions Recorded Confirmed Atorvastatin [Lipitor] 80 mg PO HS 05/26/17 11/22/20 Tamsulosin HCl [Flomax] 0.4 mg PO DAILY 05/26/17 11/22/20 Aspirin EC [Ecotrin Low Dose] 81 mg PO DAILY 02/12/18 11/22/20 calcitrioL [Calcitriol] 0.25 mcg PO MOTUTHSA 10/07/18 11/22/20 Mirabegron [Myrbetriq] 50 mg PO DAILY 05/17/19 11/22/20 Clopidogrel [Plavix] 75 mg PO DAILY 12/08/19 11/22/20 Midodrine HCl [ProAmantine] 2.5 mg PO TID PRN 12/08/19 11/22/20 Benzoyl Peroxide 1 applic TOPICAL DAILY 11/18/20 11/22/20 Cetirizine HCl [Zyrtec] 10 mg PO DAILY 11/18/20 11/22/20 Famotidine [Pepcid] 20 mg PO BID 11/18/20 11/22/20 Ferrous Sulfate [Iron (65 MG 325 mg PO BID 11/18/20 11/22/20 Elemental)] Ketoconazole [Nizoral A-D] 1 applic TOPICAL DIRECTED 11/18/20 11/22/20 Sertraline HCl [Zoloft] 50 mg PO DAILY 11/18/20 11/22/20 Previous Rx's Medication Instructions Recorded cloNIDine HCL [Catapres] 0.2 mg PO TID #90 tab 11/22/20 Allergies Allergy/AdvReac Type Severity Reaction Status Date / Time No Known Allergies Allergy Verified 04/26/21 16:19 Review of Systems ROS Statement: Those systems with pertinent positive or pertinent negative responses have been documented in the HPI. ROS Other: All systems not noted in ROS Statement are negative. Past Medical History Past Medical History: COPD, CVA/TIA, Eye Disorder, GERD/Reflux, Hyperlipidemia, Hypertension, Osteoarthritis (OA), Prostate Disorder, Renal Disease, Sleep Apnea/CPAP/BIPAP, Syncope Additional Past Medical History / Comment(s): pt is rt side dominant. hx ofMultiple TIAs, CVA 01/2017 with dysphagia-peg tube inserted and now out, has residual weakness lt arm/leg and some lt facial droop. chronic kidney disease BPH, Uti, ROSA has Cpap but does not tolerate it no longer using it, gastric ulcer, soniya eye cataracts, past hxR foot 3rd toe osteomylitis, arthritis multiple joints, past gastric ulcer, past hx shingels. , History of Any Multi-Drug Resistant Organisms: None Reported Past Surgical History: Hernia Repair, Joint Replacement Additional Past Surgical History / Comment(s): 06/01/17 intracranial angioplasty- (pt stated "he has stents') HFH, EGD with peg tube insertion since removed, R inguinal hernia repair, R total knee arthroplasty, colonoscopies with last one in 2019-normal., Past Anesthesia/Blood Transfusion Reactions: No Reported Reaction Past Psychological History: No Psychological Hx Reported Smoking Status: Former smoker Past Alcohol Use History: None Reported Past Drug Use History: None Reported - Past Family History Mother Family Medical History: CVA/TIA, Diabetes Mellitus, Hyperlipidemia, Hypertension Father Family Medical History: CVA/TIA, Hypertension General Exam - General Exam Comments Initial Comments: GENERAL: Patient is well-developed and well-nourished. Patient is nontoxic and well- hydrated and is in no acute distress. ENT: Neck is soft and supple. No significant lymphadenopathy is noted. Oropharynx is clear. Moist mucous membranes. Neck has full range of motion without eliciting any pain. EYES: The sclera were anicteric and conjunctiva were pink and moist. Extraocular movements were intact and pupils were equal round and reactive to light. Eyelids were unremarkable. PULMONARY: Unlabored respirations. Good breath sounds bilaterally. No audible rales rhonchi or wheezing was noted. CARDIOVASCULAR: There is a regular rate and rhythm without any murmurs gallops or rubs. ABDOMEN: Soft and nontender with normal bowel sounds. No palpable organomegaly was noted. There is no palpable pulsatile mass. SKIN: Skin is clear with no lesions or rashes and otherwise unremarkable. NEUROLOGIC: Patient is alert and oriented x3. Cranial nerves II through XII are grossly intact. Motor and sensory are also intact. Normal speech, volume and content. Symmetrical smile. Cerebellar testing is negative bilaterally MUSCULOSKELETAL: Normal extremities with adequate strength and full range of motion. No lower extremity swelling or edema. No calf tenderness. LYMPHATICS: No significant lymphadenopathy is noted PSYCHIATRIC: Normal psychiatric evaluation. Course Vital Signs 04/26/21 04/26/21 04/26/21 16:20 16:35 17:00 Temperature 98.4 F Pulse Rate 66 66 81 Respiratory 18 18 18 Rate Blood Pressure 205/113 177/99 160/84 O2 Sat by Pulse 96 95 100 Oximetry 04/26/21 17:25 Temperature Pulse Rate 86 Respiratory 18 Rate Blood Pressure 151/81 O2 Sat by Pulse 98 Oximetry Medical Decision Making - Medical Decision Making EKG shows normal sinus rhythm at 70 bpm HI interval 248 QRS is 86 Q-T intervals 412 QTC is 444. Patient's EKG shows no ST segment elevation or depression. CT of the brain shows no acute abnormality. Chest x-ray shows no acute abnormality. Patient's blood pressure came down nicely with hydralazine however on backup and according to the the patient used to be on blood pressure medications but hasn't been on them for quite a while and typically is running low. doesn't feel comfortable taking the patient home because his blood pressure which is going up and she has nothing to get him to bring it down. Patient continued to feel very dizzy and felt as though he was tipping to the left. I spoke with [facility] states that the patient I admitted the patient I consult cardiology. - Lab Data Result diagrams: 04/26/21 16:34 04/26/21 16:34 Lab Results 04/26/21 04/26/21 04/26/21 Range/Units 16:19 16:34 16:34 WBC 6.1 (3.8-10.6) k/uL RBC 3.83 L (4.30-5.90) m/uL Hgb 11.6 L (13.0-17.5) gm/dL Hct 36.3 L (39.0-53.0) % MCV 94.7 (80.0-100.0) fL MCH 30.3 (25.0-35.0) pg MCHC 32.0 (31.0-37.0) g/dL RDW 17.1 H (11.5-15.5) % Plt Count 270 (150-450) k/uL MPV 7.4 Neutrophils % 61 % Lymphocytes % 29 % Monocytes % 4 % Eosinophils % 3 % Basophils % 1 % Neutrophils # 3.7 (1.3-7.7) k/uL Lymphocytes # 1.8 (1.0-4.8) k/uL Monocytes # 0.3 (0-1.0) k/uL Eosinophils # 0.2 (0-0.7) k/uL Basophils # 0.1 (0-0.2) k/uL Anisocytosis Slight PT 10.4 (9.0-12.0) sec INR 1.0 (<1.2) APTT 26.6 (22.0-30.0) sec Sodium (137-145) mmol/L Potassium (3.5-5.1) mmol/L Chloride (98-107) mmol/L Carbon Dioxide (22-30) mmol/L Anion Gap mmol/L BUN (9-20) mg/dL Creatinine (0.66-1.25) mg/dL Est GFR (CKD-EPI)AfAm (>60 ml/min/1.73 sqM) Est GFR (CKD-EPI)NonAf (>60 ml/min/1.73 sqM) Glucose (74-99) mg/dL POC Glucose (mg/dL) 121 H (75-99) mg/dL POC Glu Flow Worker ID Martiniquais, Lidia Calcium (8.4-10.2) mg/dL Total Bilirubin (0.2-1.3) mg/dL AST (17-59) U/L ALT (4-49) U/L Alkaline Phosphatase (38-126) U/L Troponin I (0.000-0.034) ng/mL Total Protein (6.3-8.2) g/dL Albumin (3.5-5.0) g/dL 04/26/21 04/26/21 Range/Units 16:34 16:34 WBC (3.8-10.6) k/uL RBC (4.30-5.90) m/uL Hgb (13.0-17.5) gm/dL Hct (39.0-53.0) % MCV (80.0-100.0) fL MCH (25.0-35.0) pg MCHC (31.0-37.0) g/dL RDW (11.5-15.5) % Plt Count (150-450) k/uL MPV Neutrophils % % Lymphocytes % % Monocytes % % Eosinophils % % Basophils % % Neutrophils # (1.3-7.7) k/uL Lymphocytes # (1.0-4.8) k/uL Monocytes # (0-1.0) k/uL Eosinophils # (0-0.7) k/uL Basophils # (0-0.2) k/uL Anisocytosis PT (9.0-12.0) sec INR (<1.2) APTT (22.0-30.0) sec Sodium 140 (137-145) mmol/L Potassium 3.8 (3.5-5.1) mmol/L Chloride 104 (98-107) mmol/L Carbon Dioxide 28 (22-30) mmol/L Anion Gap 8 mmol/L BUN 20 (9-20) mg/dL Creatinine 1.25 (0.66-1.25) mg/dL Est GFR (CKD-EPI)AfAm 67 (>60 ml/min/1.73 sqM) Est GFR (CKD-EPI)NonAf 58 (>60 ml/min/1.73 sqM) Glucose 168 H (74-99) mg/dL POC Glucose (mg/dL) (75-99) mg/dL POC Glu Flow Worker ID Calcium 9.6 (8.4-10.2) mg/dL Total Bilirubin 0.3 (0.2-1.3) mg/dL AST 23 (17-59) U/L ALT 21 (4-49) U/L Alkaline Phosphatase 108 (38-126) U/L Troponin I <0.012 (0.000-0.034) ng/mL Total Protein 6.9 (6.3-8.2) g/dL Albumin 3.9 (3.5-5.0) g/dL Disposition Clinical Impression: Hypertensive urgency, Dizziness Disposition: ADMITTED IP TO THIS HOSP Referrals: Rick Luke MD [Primary Care Provider] - 1-2 days Time of Disposition: 18:38
[2021-04-26 16:43] LABS: Anisocytosis Slight; Basophils # (A) 0.1 k/uL (0-0.2); Basophils % (A) 1 %; Eosinophils # (A) 0.2 k/uL (0-0.7); Eosinophils % (A) 3 %; HCT 36.3 % (39.0-53.0); HGB 11.6 gm/dL (13.0-17.5); Lymphocytes # (A) 1.8 k/uL (1.0-4.8); Lymphocytes % (A) 29 %; MCH 30.3 pg (25.0-35.0); MCV 94.7 fL (80.0-100.0); Mean Platelet Volume 7.4; Monocytes # (A) 0.3 k/uL (0-1.0); Monocytes % (A) 4 %; Neutrophils # (A) 3.7 k/uL (1.3-7.7); Neutrophils % (A) 61 %; Platelet Count 270 k/uL (150-450); RBC 3.83 m/uL (4.30-5.90); RDW 17.1 % (11.5-15.5); WBC 6.1 k/uL (3.8-10.6)
[2021-04-26 16:54] LABS: Albumin 3.9 g/dL (3.5-5.0); Calcium 9.6 mg/dL (8.4-10.2); Potassium 3.8 mmol/L (3.5-5.1); Total Bilirubin 0.3 mg/dL (0.2-1.3); Total Protein 6.9 g/dL (6.3-8.2)
--- NOTE | 2021-04-26 17:02 | CT ---
EXAM: CT brain wo con for TPA CLINICAL HISTORY: Dizziness. COMPARISON: 11/22/2020. TECHNIQUE: Contiguous axial noncontrast images of the brain were obtained. Coronal and sagittal refor mats were generated and reviewed. Automated dose control was used for this exam. FINDINGS: There is no evidence for intracranial hemorrhage, mass effect or midline shift. There is moderate whi te matter disease and parenchymal volume loss. Ventricular size and configuration is within normal limits for degree of parenchymal volume. The paranasal sinuses are clear. The mastoid air cells are clear. No evidence for calvarial fracture. IMPRESSION: No acute intracranial abnormality.
[2021-04-26 17:14] LABS: Partial Thromboplastin Time 26.6 sec (22.0-30.0); Prothrombin Time 10.4 sec (9.0-12.0)
--- NOTE | 2021-04-26 17:30 | XR ---
EXAMINATION TYPE: XR chest 2V DATE OF EXAM: 04/26/2021 COMPARISON: 11/18/2020. HISTORY: Altered mental status. TECHNIQUE: Frontal and lateral views of the chest are obtained. FINDINGS: There is no focal air space opacity, pleural effusion, or pneumothorax seen. The cardiac silhouette size is within normal limits. The osseous structures are intact. IMPRESSION: No acute cardiopulmonary process.
[2021-04-26] MEDS ORDERED: NITROGLYCERIN SL TABS 0.4 MG TAB SUBLINGUAL PRN (20:19)
[2021-04-27 06:16] LABS: Chol/HDL Ratio 4.03
[2021-04-27] MEDS: amLODIPine 2.5 MG TAB PO SCH (08:47)
[2021-04-27] MEDS: ASPIRIN 325 MG TAB PO SCH (08:47)
--- NOTE | 2021-04-27 10:51 | P.CRDCN ---
History of Present Illness History of present illness: HISTORY OF PRESENTING ILLNESS This is a pleasant 70-year-old -[place] male past medical history significant for CVA, hypertension, dyslipidemia and dysautonomia. He follows in the office with Stephie. We have been asked to see in consultation for hypertension. He presented to the hospital with symptoms of dizziness and left sided drift. He states he felt like he was leaning to the left. He is not currently on any anti-hypertensives due to his history of dysautomonia. Blood pressure on arrival 205/113 heart rate 66. He was given IV hydralazine. Repeat blood pressure this morning 159/97. His dizziness has improved. He denies chest pain, shortness of breath or palpitations. EKG reveals sinus mechanism, LVH and flattened T waves inferiorly. CT of the brain negative for intracranial abnormality. Chest xray negative for an acute process. Laboratory data reviewed, WBC 6.1, hgb 11.6, plt 270, sodium 140, potassium 3.8, creatinine 1.25, cardiac enzymes negative x3, LDL 91, HDL 37. Current daily cardiac medications include aspirin 81 mg daily, atorvastatin 80 mg daily, plavix 75 mg daily and midodrine 2.5 mg TID PRN. Most recent echocardiogram obtained 10/2020 revealed preserved LV systolic function with EF 55-60%, moderate LVH and mild MR. REVIEW OF SYSTEMS At the time of my exam: CONSTITUTIONAL: Denies fever or chills. CARDIOVASCULAR: Denies chest pain, shortness of breath, orthopnea, PND or palpitations. RESPIRATORY: Denies cough. GASTROINTESTINAL: Denies abdominal pain, diarrhea, constipation, nausea or vomiting. MUSCULOSKELETAL: Denies myalgias. NEUROLOGIC: Denies numbness, tingling, headacbe or weakness. ENDOCRINE: Denies fatigue, weight change, polydipsia or polyurina. GENITOURINARY: Denies burning, hematuria or urgency with micturation. HEMATOLOGIC: Denies history of anemia or bleeding. PHYSICAL EXAMINATION Blood pressure 159/97 heart rate 86 afebrile and maintaining oxygen saturation on room air. CONSTITUTIONAL: No apparent distress. HEENT: Head is normocephalic. Pupils are equal, round. Sclerae anicteric. Mucous membranes of the mouth are moist. No JVD. No carotid bruit. CHEST EXAMINATION: Lungs are clear to auscultation. No chest wall tenderness is noted on palpation or with deep breathing. HEART EXAMINATION: Regular rate and rhythm. S1, S2 heard. No murmurs, gallops or rub. ABDOMEN: Soft, nontender. Positive bowel sounds. EXTREMITIES: 2+ peripheral pulses, no lower extremity edema and no calf tenderness. NEUROLOGIC EXAMINATION: Patient is awake, alert and oriented x3. ASSESSMENT Hypertension, uncontrolled Dysautonomia Dyslipidemia CVA PLAN Avoid all IV anti-hypertensive, beta blockers or nitroglycerin due to his history of dysautonomia. This will drop his blood pressure. Initiate low dose amlodipine and watch closely. Avoid overtreating his blood pressure to avoid hypotension. He can stay at 140- 150 systolic. Continue to monitor for another 24 hours. Thank you kindly for this consultation. Nurse Practitioner note has been reviewed, I agree with a documented findings and plan of care. Patient was seen and examined. Past Medical History Past Medical History: COPD, CVA/TIA, Eye Disorder, GERD/Reflux, Hyperlipidemia, Hypertension, Osteoarthritis (OA), Prostate Disorder, Renal Disease, Sleep Apnea/CPAP/BIPAP, Syncope Additional Past Medical History / Comment(s): pt is rt side dominant. hx ofMultiple TIAs, CVA 01/2017 with dysphagia-peg tube inserted and now out, has residual weakness lt arm/leg and some lt facial droop. chronic kidney disease BPH, Uti, ROSA has Cpap but does not tolerate it no longer using it, gastric ulcer, soniya eye cataracts, past hxR foot 3rd toe osteomylitis, arthritis multiple joints, past gastric ulcer, past hx shingels. , History of Any Multi-Drug Resistant Organisms: None Reported Past Surgical History: Hernia Repair, Joint Replacement Additional Past Surgical History / Comment(s): 06/01/17 intracranial angioplasty- (pt stated "he has stents') HFH, EGD with peg tube insertion since removed, R inguinal hernia repair, R total knee arthroplasty, colonoscopies with last one in 2019-normal., Past Anesthesia/Blood Transfusion Reactions: No Reported Reaction Past Psychological History: No Psychological Hx Reported Smoking Status: Former smoker Past Alcohol Use History: None Reported Past Drug Use History: None Reported - Past Family History Mother Family Medical History: CVA/TIA, Diabetes Mellitus, Hyperlipidemia, Hypertension Father Family Medical History: CVA/TIA, Hypertension Medications and Allergies Home Medications Medication Instructions Recorded Confirmed Type Atorvastatin [Lipitor] 80 mg PO HS 05/26/17 04/26/21 History Tamsulosin HCl [Flomax] 0.4 mg PO DAILY 05/26/17 04/26/21 History Aspirin EC [Ecotrin Low Dose] 81 mg PO DAILY 02/12/18 04/26/21 History calcitrioL [Calcitriol] 0.25 mcg PO MOTUTHSA 10/07/18 04/26/21 History Mirabegron [Myrbetriq] 50 mg PO DAILY 05/17/19 04/26/21 History Clopidogrel [Plavix] 75 mg PO DAILY 12/08/19 04/26/21 History Midodrine HCl [ProAmantine] 2.5 mg PO TID PRN 12/08/19 04/26/21 History Cetirizine HCl [Zyrtec] 10 mg PO DAILY 11/18/20 04/26/21 History Famotidine [Pepcid] 20 mg PO BID 11/18/20 04/26/21 History Ferrous Sulfate [Iron (65 MG 325 mg PO BID 11/18/20 04/26/21 History Elemental)] Sertraline HCl [Zoloft] 50 mg PO DAILY 11/18/20 04/26/21 History Allergies Allergy/AdvReac Type Severity Reaction Status Date / Time No Known Allergies Allergy Verified 04/26/21 18:40 Physical Exam Vitals: Vital Signs Temp Pulse Resp BP Pulse Ox 04/27/21 05:09 70 16 161/97 95 04/26/21 23:07 98.0 F 83 16 153/90 97 04/26/21 21:30 98.3 F 84 18 154/88 98 04/26/21 20:30 85 18 154/90 98 04/26/21 19:14 83 18 161/96 97 04/26/21 18:39 80 18 170/99 97 04/26/21 17:25 86 18 151/81 98 04/26/21 17:00 81 18 160/84 100 04/26/21 16:35 66 18 177/99 95 04/26/21 16:20 98.4 F 66 18 205/113 96 Intake and Output 04/26/21 04/27/21 04/27/21 22:59 06:59 14:59 Other: Weight 90.855 kg Results 04/26/21 16:34 04/26/21 16:34 Cardiac Enzymes 04/26/21 04/26/21 04/26/21 Range/Units 16:34 16:34 20:43 AST 23 (17-59) U/L Troponin I <0.012 <0.012 (0.000-0.034) ng/mL 04/26/21 Range/Units 23:20 AST (17-59) U/L Troponin I <0.012 (0.000-0.034) ng/mL Coagulation 04/26/21 Range/Units 16:34 PT 10.4 (9.0-12.0) sec APTT 26.6 (22.0-30.0) sec Lipids 04/26/21 Range/Units 23:20 Triglycerides 105.0 (0.0-149.0) mg/dL Cholesterol 149 (0-200) mg/dL HDL Cholesterol 37.0 L (40.0-60.0) mg/dL Cholesterol/HDL Ratio 4.03 CBC 04/26/21 Range/Units 16:34 WBC 6.1 (3.8-10.6) k/uL RBC 3.83 L (4.30-5.90) m/uL Hgb 11.6 L (13.0-17.5) gm/dL Hct 36.3 L (39.0-53.0) % Plt Count 270 (150-450) k/uL Comprehensive Metabolic Panel 04/26/21 Range/Units 16:34 Sodium 140 (137-145) mmol/L Potassium 3.8 (3.5-5.1) mmol/L Chloride 104 (98-107) mmol/L Carbon Dioxide 28 (22-30) mmol/L BUN 20 (9-20) mg/dL Creatinine 1.25 (0.66-1.25) mg/dL Glucose 168 H (74-99) mg/dL Calcium 9.6 (8.4-10.2) mg/dL AST 23 (17-59) U/L ALT 21 (4-49) U/L Alkaline Phosphatase 108 (38-126) U/L Total Protein 6.9 (6.3-8.2) g/dL Albumin 3.9 (3.5-5.0) g/dL Current Medications Generic Name Dose Route Start Last Admin Trade Name Freq PRN Reason Stop Dose Admin Amlodipine Besylate 2.5 mg 04/27/21 09:00 Amlodipine 5 Mg Tab PO DAILY [facility] Aspirin 325 mg 04/27/21 09:00 Aspirin 325 Mg Tab PO DAILY [facility] Intake and Output 04/26/21 04/27/21 04/27/21 22:59 06:59 14:59 Other: Weight 90.855 kg 04/26/21 16:34 04/26/21 16:34
[2021-04-27] MEDS: TAMSULOSIN 0.4 MG CAP.ER.24H PO SCH (13:02)
[2021-04-27] MEDS: FAMOTIDINE 20 MG TAB PO SCH (21:07)
[2021-04-27] MEDS: ATORVASTATIN 80 MG TAB PO SCH (21:07)
--- NOTE | 2021-04-28 09:06 | P.HPIM ---
History of Present Illness H&P Date: 04/27/21 Patient was an 70-year-old male came in with the complaints of dizziness. Patient was also complaining of some left-sided drift although no weakness was appreciated 1 when I evaluated the patient. Patient dizziness improved when I valid the patient and patient said he didn't get up because of which she is unsure whether his lightheadedness improved his dizziness is lightheadedness not vertigo. Patient is found to be hypertensive with the blood pressure going up to 205/113 with heart rate of 66. Patient denied any chest pain denied nausea vomiting. Patient does have history of dysautonomia. Patient creatinine is 1.25 baseline is around that. Patient had a CT of the head which did not show any acute abnormality x-ray did not show any significant abnormality ECG showed LVH with flattened T waves in the inferior leads secondary to LVH. REVIEW OF SYSTEMS: CONSTITUTIONAL: No fever, no malaise, no fatigue. HEENT: No recent visual problems or hearing problems. Denied any sore throat. CARDIOVASCULAR: No chest pain, orthopnea, PND, no palpitations, no syncope. PULMONARY: No shortness of breath, no cough, no hemoptysis. GASTROINTESTINAL: No diarrhea, no nausea, no vomiting, no abdominal pain. NEUROLOGICAL: No headaches, no weakness, no numbness. HEMATOLOGICAL: Denies any bleeding or petechiae. GENITOURINARY: Denies any burning micturition, frequency, or urgency. MUSCULOSKELETAL/RHEUMATOLOGICAL: Denies any joint pain, swelling, or any muscle pain. ENDOCRINE: Denies any polyuria or polydipsia. The rest of the 14-point review of systems is negative. PHYSICAL EXAMINATION: GENERAL: The patient is alert and oriented x3, not in any acute distress. Well developed, well nourished. HEENT: Pupils are round and equally reacting to light. EOMI. No scleral icterus. No conjunctival pallor. Normocephalic, atraumatic. No pharyngeal erythema. No thyromegaly. CARDIOVASCULAR: S1 and S2 present. No murmurs, rubs, or gallops. PULMONARY: Chest is clear to auscultation, no wheezing or crackles. ABDOMEN: Soft, nontender, nondistended, normoactive bowel sounds. No palpable organomegaly. MUSCULOSKELETAL: No joint swelling or deformity. EXTREMITIES: No cyanosis, clubbing, or pedal edema. NEUROLOGICAL: Gross neurological examination did not reveal any focal deficits. SKIN: No rashes. Assessment and plan -Dizziness: Most probably secondary to dysautonomia. Patient will be monitored on chief controller tower patient had a normal ejection fraction. Patient will be r esumed on 2.5 mg of Norvasc and patient probably will be discharged tomorrow if there are no other significant events. Patient will be evaluated by physical therapy and occupational therapy as well -Accelerated hypertension and hypertensive urgency: Probably secondary to dysautonomia again. It's recommended not to control his blood pressures strictly patient will be resumed on home dose of amlodipine. IV antihypertensives are not recommended and will be discontinued -History of CVA with present symptoms of left-sided drift: Patient's symptoms resolved CT of the head was negative we'll also consult neurology considering his complaints of left-sided drift. Unsure whether patient had a TIA. 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 hx ofMultiple TIAs, CVA 01/2017 with dysphagia-peg tube inserted and now out, has residual weakness lt arm/leg and some lt facial droop. chronic kidney disease BPH, Uti, ROSA has Cpap but does not tolerate it no longer using it, gastric ulcer, soniya eye cataracts, past hxR foot 3rd toe osteomylitis, arthritis multiple joints, past gastric ulcer, past hx shingels. , History of Any Multi-Drug Resistant Organisms: None Reported Past Surgical History: Hernia Repair, Joint Replacement Additional Past Surgical History / Comment(s): 06/01/17 intracranial angioplasty- (pt stated "he has stents') HFH, EGD with peg tube insertion since removed, R inguinal hernia repair, R total knee arthroplasty, colonoscopies with last one i n 2019-normal., soniya eye cat sx Past Anesthesia/Blood Transfusion Reactions: No Reported Reaction Past Psychological History: No Psychological Hx Reported Additional Psychological History / Comment(s): Pt lives with his in 2 story home that has 4 front porch steps. Pt stays on first level. No pets. No home care services. Pt uses a cane/walker to ambulate. Pt no longer drives, his spouse drives him to appts. Smoking Status: Former smoker Past Alcohol Use History: None Reported Additional Past Alcohol Use History / Comment(s): started smoking 1963. quit 2015 smoked 1 ppd, no alcohol since 2015 Past Drug Use History: None Reported - Past Family History Mother Family Medical History: CVA/TIA, Diabetes Mellitus, Hyperlipidemia, Hypertension Father Family Medical History: CVA/TIA, Hypertension Medications and Allergies Home Medications Medication Instructions Recorded Confirmed Type Atorvastatin [Lipitor] 80 mg PO HS 05/26/17 04/26/21 History Tamsulosin HCl [Flomax] 0.4 mg PO DAILY 05/26/17 04/26/21 History Aspirin EC [Ecotrin Low Dose] 81 mg PO DAILY 02/12/18 04/26/21 History calcitrioL [Calcitriol] 0.25 mcg PO MOTUTHSA 10/07/18 04/26/21 History Mirabegron [Myrbetriq] 50 mg PO DAILY 05/17/19 04/26/21 History Clopidogrel [Plavix] 75 mg PO DAILY 12/08/19 04/26/21 History Midodrine HCl [ProAmantine] 2.5 mg PO TID PRN 12/08/19 04/26/21 History Cetirizine HCl [Zyrtec] 10 mg PO DAILY 11/18/20 04/26/21 History Famotidine [Pepcid] 20 mg PO BID 11/18/20 04/26/21 History Ferrous Sulfate [Iron (65 MG 325 mg PO BID 11/18/20 04/26/21 History Elemental)] Sertraline HCl [Zoloft] 50 mg PO DAILY 11/18/20 04/26/21 History Allergies Allergy/AdvReac Type Severity Reaction Status Date / Time No Known Allergies Allergy Verified 04/26/21 18:40 Physical Exam Vitals: Vital Signs Temp Pulse Pulse Resp BP BP Pulse Ox 04/28/21 05:00 97.7 F 58 L 16 168/86 96 04/27/21 19:30 98.7 F 80 16 158/88 95 04/27/21 18:57 98 F 89 18 157/89 98 04/27/21 15:36 98.4 F 73 18 139/80 96 04/27/21 13:28 98.2 F 64 18 154/88 98 04/27/21 11:24 66 18 157/85 98 Intake and Output 04/27/21 04/28/21 04/28/21 22:59 06:59 14:59 Intake Total 540 590 Balance 540 590 Intake: Oral 540 590 Other: # Voids 1 3 # Bowel Movements 1 Weight 88 kg 88 kg Results CBC & Chem 7: 04/26/21 16:34 04/26/21 16:34 Thrombosis Risk Factor Assmnt - Choose All That Apply Any of the Below Risk Factors Present?: Yes Each Factor Represents 1 point: Abnormal pulmonary function (COPD) Other Risk Factors: Yes Each Risk Factor Represents 2 Points: Age 61-74 years Other congenital or acquired thrombophilia - If yes, enter type in comment: No Thrombosis Risk Factor Assessment Total Risk Factor Score: 3 Thrombosis Risk Factor Assessment Level: Moderate Risk
[2021-04-28] MEDS: TAMSULOSIN 0.4 MG CAP.ER.24H PO SCH (09:48)
[2021-04-28] MEDS: CLOPIDOGREL 75 MG TAB PO SCH (09:48)
[2021-04-28] MEDS: SERTRALINE 50 MG TAB PO SCH (09:48)
[2021-04-28] MEDS: FAMOTIDINE 20 MG TAB PO SCH ×2 (09:48→20:03)
[2021-04-28] MEDS: NON FORMULARY DRUG (Mirabegron [Myrbetriq] 50 MG Tab.Er.24h) PO SCH (10:42)
[2021-04-28] MEDS: amLODIPine 2.5 MG TAB PO SCH (10:43)
[2021-04-28] MEDS: ASPIRIN 325 MG TAB PO SCH (10:43)
[2021-04-28] MEDS ORDERED: amLODIPine 2.5 MG TAB PO STA (11:24)
--- NOTE | 2021-04-28 12:28 | P.CNNES ---
History of Present Illness Consult date: 04/28/21 Requesting physician: Oni Joseph Reason for Consult: Evaluate for TIA History of Present Illness: The patient is a 70-year-old male came to the hospital by ambulance on 04/26/2021 at 4:16 PM for high blood pressure. Per EMS flow sheet, when they arrived, patient was sitting in his kitchen complaining of dizziness like he is going to fall over. Patient was alert and oriented. No neuro deficits were noted by the EMS. Patient's blood pressure was 196/106, which went up to 209/43, pulse rate 68, respiration 12, saturation 96%. When he arrived, his blood pressure was 205/113, and patient 98.4. CT head showed no acute intracranial abnormality. Chest x-ray normal. EKG with normal sinus rhythm. Moderate voltage criteria for LVH. Patient's last CTA of head and neck was done on 12/08/2019 which was normal with no flow-limiting stenosis bilateral carotid bifurcations. Normal [place]. 2-D echo from 11/19/2020 shows moderate concentric LVH. EF is between 55-60%. Normal left atrial size. Mild aortic valve sclerosis. Patient has been seen by myself on 12/09/2019, when he has presented with altered mental status, possible TIA. At present patient denies any focal symptoms like slurred speech facial droop problem with the vision, numbness tingling focal weakness. He lives with his . He uses a 4 pronged cane for ambulation. Denies any headache. Patient currently takes Lipitor 80 mg, aspirin 81 mg, Plavix 75 mg, calcitriol, mother Mauri, midodrine 2.5 mg 3 times a day when necessary, sertraline 50 mg, ferrous sulfate, cetirizine, Pepcid and Flomax. Review of Systems Completely unremarkable as mentioned above otherwise. Past Medical History Past Medical History: COPD, CVA/TIA, Eye Disorder, GERD/Reflux, Hyperlipidemia, Hypertension, Osteoarthritis (OA), Prostate Disorder, Renal Disease, Sleep Apnea/CPAP/BIPAP, Syncope Additional Past Medical History / Comment(s): pt is rt side dominant. hx ofMultiple TIAs, CVA 01/2017 with dysphagia-peg tube inserted and now out, has residual weakness lt arm/leg and some lt facial droop. chronic kidney disease BPH, Uti, ROSA has Cpap but does not tolerate it no longer using it, gastric ulcer, soniya eye cataracts, past hxR foot 3rd toe osteomylitis, arthritis multiple joints, past gastric ulcer, past hx shingels. , History of Any Multi-Drug Resistant Organisms: None Reported Past Surgical History: Hernia Repair, Joint Replacement Additional Past Surgical History / Comment(s): 06/01/17 intracranial angioplasty- (pt stated "he has stents') HFH, EGD with peg tube insertion since removed, R inguinal hernia repair, R total knee arthroplasty, colonoscopies with last one in 2019-normal., soniya eye cat sx Past Anesthesia/Blood Transfusion Reactions: No Reported Reaction Past Psychological History: No Psychological Hx Reported Additional Psychological History / Comment(s): Pt lives with his in 2 story home that has 4 front porch steps. Pt stays on first level. No pets. No home care services. Pt uses a cane/walker to ambulate. Pt no longer drives, his spouse drives him to appts. Smoking Status: Former smoker Past Alcohol Use History: None Reported Additional Past Alcohol Use History / Comment(s): started smoking 1963. quit 2015 smoked 1 ppd, no alcohol since 2015 Past Drug Use History: None Reported - Past Family History Mother Family Medical History: CVA/TIA, Diabetes Mellitus, Hyperlipidemia, Hypertension Father Family Medical History: CVA/TIA, Hypertension Medications and Allergies Home Medications Medication Instructions Recorded Confirmed Type Atorvastatin [Lipitor] 80 mg PO HS 05/26/17 04/26/21 History Tamsulosin HCl [Flomax] 0.4 mg PO DAILY 05/26/17 04/26/21 History Aspirin EC [Ecotrin Low Dose] 81 mg PO DAILY 02/12/18 04/26/21 History calcitrioL [Calcitriol] 0.25 mcg PO MOTUTHSA 10/07/18 04/26/21 History Mirabegron [Myrbetriq] 50 mg PO DAILY 05/17/19 04/26/21 History Clopidogrel [Plavix] 75 mg PO DAILY 12/08/19 04/26/21 History Midodrine HCl [ProAmantine] 2.5 mg PO TID PRN 12/08/19 04/26/21 History Cetirizine HCl [Zyrtec] 10 mg PO DAILY 11/18/20 04/26/21 History Famotidine [Pepcid] 20 mg PO BID 11/18/20 04/26/21 History Ferrous Sulfate [Iron (65 MG 325 mg PO BID 11/18/20 04/26/21 History Elemental)] Sertraline HCl [Zoloft] 50 mg PO DAILY 11/18/20 04/26/21 History Allergies Allergy/AdvReac Type Severity Reaction Status Date / Time No Known Allergies Allergy Verified 04/26/21 18:40 Physical Examination - Vital Signs Vital Signs: Vital Signs Temp Pulse Pulse Resp BP BP Pulse Ox 04/28/21 10:45 96 04/28/21 05:00 97.7 F 58 L 16 168/86 96 04/27/21 19:30 98.7 F 80 16 158/88 95 04/27/21 18:57 98 F 89 18 157/89 98 04/27/21 15:36 98.4 F 73 18 139/80 96 04/27/21 13:28 98.2 F 64 18 154/88 98 Intake and Output 04/27/21 04/28/21 04/28/21 22:59 06:59 14:59 Intake Total 540 590 Balance 540 590 Intake: Oral 540 590 Other: Voiding Method Urinal Diaper Incontinent # Voids 1 3 1 # Bowel Movements 1 Weight 88 kg 88 kg Patient is an elderly Afro-[place] male, very pleasant, in no distress. Patient is alert awake oriented to time place and person. Patient knows it is 04/28/2021 and that he is in [facility]. Speech and language functions are normal. Attention, concentration and fund of knowledge is adequate. On cranial examination, pupils are round and reacting to light, visual fierro are full on confrontation, extraocular muscles are intact with no nystagmus. Face has mild left facial asymmetry, which is chronic, tongue protrudes to the midline. Palatal elevation and sensation normal, hearing and shoulder shrug normal, facial sensation normal. Shoulder shrug normal. On muscle strength testing, there is mild left pronation and hand posturing, no drift, which is also chronic and baseline. Otherwise the muscle strength is normal in arms and legs distally and proximally. Deep tendon reflexes are 1 in the upper limbs, absent right knee, 2 on the left knee, 1 at ankles and plantars downgoing. Sensory to touch is equal with no neglect. Cerebellar function showed no ataxia for [id number] testing. No dysdiadochokinesia. Tone and bulk of muscles normal. Gait deferred. Patient uses 4-prong cane. On general examination, there is no carotid bruit or murmur, S1-S2 audible. Abdomen is soft nontender. Chest is clear. Peripheral pulses are present. No edema. Results - Laboratory Findings CBC and BMP: 04/26/21 16:34 04/26/21 16:34 Abnormal Lab Findings: Abnormal Labs 04/26/21 04/26/21 04/26/21 16:19 16:34 16:34 RBC 3.83 L Hgb 11.6 L Hct 36.3 L RDW 17.1 H Glucose 168 H POC Glucose (mg/dL) 121 H HDL Cholesterol 04/26/21 23:20 RBC Hgb Hct RDW Glucose POC Glucose (mg/dL) HDL Cholesterol 37.0 L Assessment and Plan Assessment: * Near syncopal spell, likely due to uncontrolled blood pressure. * Hypertension * History of strokes and TIA, with minimal left residual spasticity. * Hyperlipidemia Plan: * Patient denies any focal neurological symptoms. His current neurological examination is normal. No other neurological workup indicated. * Continue dual antiplatelet medications and statins. * Treatment of high blood pressure as per IM. * Neurologically clear.
--- NOTE | 2021-04-28 13:05 | P.PN ---
Subjective This is a pleasant 70-year-old -[place] male past medical history significant for CVA, hypertension, dyslipidemia and dysautonomia. He follows in the office with Stephie. We have been asked to see in consultation for hypertension. He presented to the hospital with symptoms of dizziness and left sided drift. He states he felt like he was leaning to the left. He is not currently on any anti-hypertensives due to his history of dysautomonia. Blood pressure on arrival 205/113 heart rate 66. He was given IV hydralazine. Repeat blood pressure 159/97. His dizziness improved. He denies chest pain, shortness of breath or palpitations. EKG reveals sinus mechanism, LVH and flattened T waves inferiorly. CT of the brain negative for intracranial abnormality. Chest xray negative for an acute process. Troponin negative x 3. Current daily cardiac medications include aspirin 81 mg daily, atorvastatin 80 mg daily, plavix 75 mg daily and midodrine 2.5 mg TID PRN. Most recent echocardiogram obtained 10/2020 revealed preserved LV systolic function with EF 55-60%, moderate LVH and mild MR. Patient was admitted and started on amlodipine 2.5mg daily on 04/17/21 04/28/2021: Patient seen and examined at bedside, no acute distress. Patient's systolic blood pressures have been 150s to 160s overnight. Today patients SBP 160s 170s. Patient denies any chest pain, shortness of breath, palpitations. PHYSICAL EXAMINATION Blood pressure 177/96 heart rate 67 afebrile and maintaining oxygen saturation on room air. CONSTITUTIONAL: No apparent distress. HEENT: Neck supple. CHEST EXAMINATION: Lungs are clear to auscultation. No chest wall tenderness is noted on palpation or with deep breathing. HEART EXAMINATION: Regular rate and rhythm. S1, S2 heard. No murmurs, gallops or rub. ABDOMEN: Soft, nontender. Positive bowel sounds. EXTREMITIES: 2+ peripheral pulses, no lower extremity edema and no calf tenderness. NEUROLOGIC EXAMINATION: Patient is awake, alert and oriented x3. ASSESSMENT Hypertension, uncontrolled Dysautonomia Dyslipidemia CVA PLAN Avoid all IV anti-hypertensive, beta blockers or nitroglycerin due to his history of dysautonomia. This will drop his blood pressure. Will increase amlodipine to 5mg daily Avoid overtreating his blood pressure to avoid hypotension. He can stay at 140- 150 systolic. Further recommendations based on clinical course. Thank you kindly for this consultation. Nurse Practitioner note has been reviewed, I agree with a documented findings and plan of care. Patient was seen and examined. Objective - Vital Signs Vital signs: Vital Signs Temp 97.7 F 04/28/21 05:00 Pulse 58 L 04/28/21 05:00 Resp 16 04/28/21 05:00 BP 168/86 04/28/21 05:00 Pulse Ox 96 04/28/21 05:00 Intake & Output 04/27/21 04/28/21 04/28/21 18:59 06:59 18:59 Intake Total 1130 Balance 1130 Weight 88 kg Intake: Oral 1130 Other: Voiding Method Urinal Diaper Incontinent # Voids 3 1 # Bowel Movements 1 - Labs CBC & Chem 7: 04/26/21 16:34 04/26/21 16:34
[2021-04-28] MEDS ORDERED: amLODIPine 5 MG TAB PO STA (13:45)
[2021-04-28] MEDS: ATORVASTATIN 80 MG TAB PO SCH (20:03)
--- NOTE | 2021-04-29 06:20 | P.PN ---
Subjective Progress Note Date: 04/28/21 Patient was an 70-year-old male came in with the complaints of dizziness. Patient was also complaining of some left-sided drift although no weakness was appreciated 1 when I evaluated the patient. Patient dizziness improved when I valid the patient and patient said he didn't get up because of which she is unsure whether his lightheadedness improved his dizziness is lightheadedness not vertigo. Patient is found to be hypertensive with the blood pressure going up to 205/113 with heart rate of 66. Patient denied any chest pain denied nausea vomiting. Patient does have history of dysautonomia. Patient creatinine is 1.25 baseline is around that. Patient had a CT of the head which did not show any acute abnormality x-ray did not show any significant abnormality ECG showed LVH with flattened T waves in the inferior leads secondary to LVH. 04/28/2021 Patient is seen in follow up this morning with no acute overnight issues noted. Patient being followed by cardiology and has been started on norvasc low dose as he continued to be hypertensive. Blood pressure continued to be elevated and increased the norvasc dose and will continue to monitor. Neurology also consulted for possible left side drift and pending at this time. No left side weakness noted on exam Review of systems: Constitutional: No reports of fatigue, fever, or chills Cardiovascular: No reports of chest pain or palpitations Respiratory: No reports of shortness of breath or cough GI: No reports of nausea, vomiting, or diarrhea : No reports of dysuria or retention Neurovascular: no reports of weakness or numbness All medications have been reviewed Objective - Vital Signs Vital signs: Vital Signs Temp 97.7 F 04/28/21 05:00 Pulse 58 L 04/28/21 05:00 Resp 16 04/28/21 05:00 BP 168/86 04/28/21 05:00 Pulse Ox 96 04/28/21 05:00 Intake & Output 04/27/21 04/28/21 04/28/21 18:59 06:59 18:59 Intake Total 1130 Balance 1130 Weight 88 kg Intake: Oral 1130 Other: # Voids 3 1 # Bowel Movements 1 - Exam GENERAL: The patient is alert and oriented x3, not in any acute distress. Well developed, well nourished. HEENT: Pupils are round and equally reacting to light. EOMI. No scleral icterus. No conjunctival pallor. Normocephalic, atraumatic. No pharyngeal erythema. No thyromegaly. CARDIOVASCULAR: S1 and S2 present. No murmurs, rubs, or gallops. PULMONARY: Chest is clear to auscultation, no wheezing or crackles. ABDOMEN: Soft, nontender, nondistended, normoactive bowel sounds. No palpable organomegaly. MUSCULOSKELETAL: No joint swelling or deformity. EXTREMITIES: No cyanosis, clubbing, or pedal edema. NEUROLOGICAL: Gross neurological examination did not reveal any focal deficits. SKIN: No rashes. - Labs CBC & Chem 7: 04/26/21 16:34 04/26/21 16:34 Assessment and Plan Assessment: -Dizziness: Most probably secondary to dysautonomia. Patient will be monitored on monitor worker patient had a normal ejection fraction. PT/OT to evaluate the patient, resolved dizziness -Accelerated hypertension and hypertensive urgency: Probably secondary to dysautonomia again. Patient continues to be hypertensive and cardiology have increased amlodipine to 5 mg daily and will monitor. 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 Neurology evaluation pending. PT/OT to evaluated the patient. Patient denies any dizziness , lightheadedness, or left sided deficits. Cardiology following as well. Will monitor for another 24 hours and anticipate discharge in the morning.
[2021-04-29] MEDS: TAMSULOSIN 0.4 MG CAP.ER.24H PO SCH (08:16)
[2021-04-29] MEDS: NON FORMULARY DRUG (Mirabegron [Myrbetriq] 50 MG Tab.Er.24h) PO SCH (08:16)
[2021-04-29] MEDS: ASPIRIN 325 MG TAB PO SCH (08:16)
[2021-04-29] MEDS: SERTRALINE 50 MG TAB PO SCH (08:16)
[2021-04-29] MEDS: CLOPIDOGREL 75 MG TAB PO SCH (08:16)
[2021-04-29] MEDS: FAMOTIDINE 20 MG TAB PO SCH (08:16)
[2021-04-29] MEDS ORDERED: amLODIPine 5 MG TAB PO SCH (09:00)
[2021-04-29 12:43] VITALS: BP 132/79; PULSE 59; RESP 18; TEMP 97.8
--- NOTE | 2021-04-29 13:31 | P.PN ---
Subjective This is a pleasant 70-year-old -[place] male past medical history significant for CVA, hypertension, dyslipidemia and dysautonomia. He follows in the office with Stephie. We have been asked to see in consultation for hypertension. He presented to the hospital with symptoms of dizziness and left sided drift. He states he felt like he was leaning to the left. He is not currently on any anti-hypertensives due to his history of dysautomonia. Blood pressure on arrival 205/113 heart rate 66. He was given IV hydralazine. Repeat blood pressure 159/97. His dizziness improved. He denies chest pain, shortness of breath or palpitations. EKG reveals sinus mechanism, LVH and flattened T waves inferiorly. CT of the brain negative for intracranial abnormality. Chest xray negative for an acute process. Troponin negative x 3. Current daily cardiac medications include aspirin 81 mg daily, atorvastatin 80 mg daily, plavix 75 mg daily and midodrine 2.5 mg TID PRN. Most recent echocardiogram obtained 10/2020 revealed preserved LV systolic function with EF 55-60%, moderate LVH and mild MR. Patient was admitted and started on amlodipine 2.5mg daily on 04/17/21 04/28/2021: Patient's amlodipine was increased to 5 mg daily. 04/29/2021: Patient seen and examined at bedside, resting comfortably in bed in no acute distress. Blood pressure 130/78 9, heart rate 59, afebrile, maintaining saturations I7 percent on room air. Blood pressures reviewed over the past 12 hours, patients SBP range of 11/28/1939. Patient denies any lightheadedness, dizziness, syncope, chest pain, shortness of breath. PHYSICAL EXAMINATION CONSTITUTIONAL: No apparent distress. HEENT: Neck supple. CHEST EXAMINATION: Lungs are clear to auscultation. No chest wall tenderness is noted on palpation or with deep breathing. HEART EXAMINATION: Regular rate and rhythm. S1, S2 heard. No murmurs, gallops or rub. ABDOMEN: Soft, nontender. Positive bowel sounds. EXTREMITIES: 2+ peripheral pulses, no lower extremity edema and no calf tenderness. NEUROLOGIC EXAMINATION: Patient is awake, alert and oriented x3. ASSESSMENT Hypertension, uncontrolled Dysautonomia Dyslipidemia CVA PLAN Avoid all IV anti-hypertensive, beta blockers or nitroglycerin due to his history of dysautonomia. This will drop his blood pressure. Continue amlodipine to 5mg daily Avoid overtreating his blood pressure to avoid hypotension. From cardiology perspective, patient stable to be discharged home. Patient to follow up with Dr. Moctezuma. He has an appointment on 05/10/2021 Nurse Practitioner note has been reviewed, I agree with a documented findings and plan of care. Patient was seen and examined. Objective - Vital Signs Vital signs: Vital Signs Temp 97.8 F 04/29/21 12:43 Pulse 59 L 04/29/21 12:43 Resp 18 04/29/21 12:43 BP 132/79 04/29/21 12:43 Pulse Ox 97 04/29/21 12:43 Intake & Output 04/28/21 04/29/21 04/29/21 18:59 06:59 18:59 Intake Total 710 Balance 710 Weight 86.5 kg Intake: Oral 710 Other: Voiding Method Urinal Urinal Diaper Diaper Incontinent Incontinent # Voids 5 1 # Bowel Movements 1 - Labs CBC & Chem 7: 04/26/21 16:34 04/26/21 16:34
--- NOTE | 2021-05-02 09:20 | P.DS ---
Providers Date of admission: 04/27/21 12:34 Expected date of discharge: 04/29/21 Attending physician: Miguel Church Consults: 04/26/21 20:19 Consult Physician Urgent Consulting Provider: [facility] Consult Reason/Comments: Hypertensive urgency Do you want consulting provider notified?: Yes 04/27/21 12:10 Consult Physician Routine Consulting Provider: Vero Romero Consult Reason/Comments: Evauate for TIA Do you want consulting provider notified?: Yes Primary care physician: Rick Luke Hospital Course: Final diagnosis -Dizziness: Most probably secondary to dysautonomia -Accelerated hypertension and hypertensive urgency: Probably secondary to dysautonomia -History of CVA with present symptoms of left-sided drift: Patient's symptoms resolved CT of the head was negative -Hypertension -hyperlipidemia -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 Patient will follow-up with Dr. Luke in the outpatient setting upon discharge. Patient is to follow-up with cardiology Dr. Moctezuma in 2 weeks. Patient has been started on amlodipine 5 mg and will continue upon discharge. Total time taken is greater than 35 minutes. Hospital course Patient was an 70-year-old male came in with the complaints of dizziness. Patient was also complaining of some left-sided drift although no weakness was appreciated 1 when I evaluated the patient. Patient dizziness improved when I valid the patient and patient said he didn't get up because of which she is unsure whether his lightheadedness improved his dizziness is lightheadedness not vertigo. Patient is found to be hypertensive with the blood pressure going up to 205/113 with heart rate of 66. Patient denied any chest pain denied nausea vomiting. Patient does have history of dysautonomia. Patient creatinine is 1.25 baseline is around that. Patient had a CT of the head which did not show any acute abnormality x-ray did not show any significant abnormality ECG showed LVH with flattened T waves in the inferior leads secondary to LVH. 04/28/2021 Patient is seen in follow up this morning with no acute overnight issues noted. Patient being followed by cardiology and has been started on norvasc low dose as he continued to be hypertensive. Blood pressure continued to be elevated and increased the norvasc dose and will continue to monitor. Neurology also consulted for possible left side drift and pending at this time. No left side weakness noted on exam 04/29/2021 Patient is seen this morning with no acute overnight issues. Blood pressure more managed and will continue with amlodipine 5mg daily and close outpatient monitoring. Patient will also follow-up with neurology outpatient along with Dr. Moctezuma cardiology in 2 weeks as scheduled. Currently no reports of chest pain, shortness of breath, or palpitations. Patient is afebrile. No reports of nausea or vomiting and patient is tolerating diet. Patient will be discharged home today. On exam vital signs are stable. Cardio S1, S2 are muffled. Respiratory system shows diminished breath sounds at the bases with no wheezing or rhonchi noted. Abdomen is soft and obese, and nontender. Nervous system shows diffuse weakness. Please refer to medication reconciliation sheet for a list of medications. Patient Condition at Discharge: Stable Plan - Discharge Summary Discharge Rx Participant: No New Discharge Prescriptions: New amLODIPine [Norvasc] 5 mg PO DAILY 30 Days #30 tab Continue Atorvastatin [Lipitor] 80 mg PO HS Tamsulosin HCl [Flomax] 0.4 mg PO DAILY Aspirin EC [Ecotrin Low Dose] 81 mg PO DAILY calcitrioL [Calcitriol] 0.25 mcg PO MOTUTHSA Mirabegron [Myrbetriq] 50 mg PO DAILY Clopidogrel [Plavix] 75 mg PO DAILY Sertraline HCl [Zoloft] 50 mg PO DAILY Ferrous Sulfate [Iron (65 MG Elemental)] 325 mg PO BID Cetirizine HCl [Zyrtec] 10 mg PO DAILY Famotidine [Pepcid] 20 mg PO BID Discontinued Midodrine HCl [ProAmantine] 2.5 mg PO TID PRN PRN Reason: LOW BLOOD PRESSURE Discharge Medication List Atorvastatin [Lipitor] 80 mg PO HS 05/26/17 [History] Tamsulosin HCl [Flomax] 0.4 mg PO DAILY 05/26/17 [History] Aspirin EC [Ecotrin Low Dose] 81 mg PO DAILY 02/12/18 [History] calcitrioL [Calcitriol] 0.25 mcg PO MOTUTHSA 10/07/18 [History] Mirabegron [Myrbetriq] 50 mg PO DAILY 05/17/19 [History] Clopidogrel [Plavix] 75 mg PO DAILY 12/08/19 [History] Cetirizine HCl [Zyrtec] 10 mg PO DAILY 11/18/20 [History] Famotidine [Pepcid] 20 mg PO BID 11/18/20 [History] Ferrous Sulfate [Iron (65 MG Elemental)] 325 mg PO BID 11/18/20 [History] Sertraline HCl [Zoloft] 50 mg PO DAILY 11/18/20 [History] amLODIPine [Norvasc] 5 mg PO DAILY 30 Days #30 tab 04/29/21 [Rx] Follow up Appointment(s)/Referral(s): Baron Moctezuma MD [STAFF PHYSICIAN] - 05/10/21 3:30 pm (This appointment is set at [facility] [address] [facility]. (Entrance on [address] [facility]) [place] [address] ) Rick Luke MD [Primary Care Provider] - 1-2 days (Office closed at time of discharge.) Patient Instructions/Handouts: Amlodipine (By mouth), Hypertension (DC), Fall Prevention (DC) Activity/Diet/Wound Care/Special Instructions: Activity Limited until follow-up follow up with primary care provider upon discharge Follow-up with cardiology outpatient Continue with blood pressure medication and monitor blood pressure daily and keep a diary for primary care follow-up Continue current diet Discharge Disposition: HOME SELF-CARE
== END 2021-04-29 14:44 | disposition home or self-care (01) | DRG 92 ==
LOC: EC 16:16 → 3SCARD 20:19 → 6NMEDSUR 04-27 08:04 → OBSVTOIN 04-27 12:34 → 6NMEDSUR 04-27 14:11 → 5NMEDONC 04-27 18:23
PROVIDERS: ADMIT Hospitalist; ATTEND Hospitalist
DX: G90.1 Familial dysautonomia [Riley-Day] (principal); I69.354 Hemiplegia and hemiparesis following cerebral infarction affecting left non-dominant side; I16.0 Hypertensive urgency; Z20.822 Contact with and (suspected) exposure to COVID-19; J44.9 Chronic obstructive pulmonary disease, unspecified; K21.9 Gastro-esophageal reflux disease without esophagitis; N40.0 Benign prostatic hyperplasia without lower urinary tract symptoms; M19.90 Unspecified osteoarthritis, unspecified site; G47.33 Obstructive sleep apnea (adult) (pediatric); I12.9 Hypertensive chronic kidney disease with stage 1 through stage 4 chronic kidney disease, or unspecified chronic kidney disease; N18.30 Chronic kidney disease, stage 3 unspecified; E78.5 Hyperlipidemia, unspecified; Z79.02 Long term (current) use of antithrombotics/antiplatelets; Z79.82 Long term (current) use of aspirin; Z79.899 Other long term (current) drug therapy; I69.392 Facial weakness following cerebral infarction; Z91.19 Patient's noncompliance with other medical treatment and regimen; Z87.891 Personal history of nicotine dependence; Z96.651 Presence of right artificial knee joint; Z82.49 Family history of ischemic heart disease and other diseases of the circulatory system; Z82.3 Family history of stroke
CPT/HCPCS: 36415; 70450; 71046; 80053; 80061; 84484; 85025; 85610; 85730; 87635; 93005; 96361; 96374; 99285

== ENCOUNTER 2021-05-13 17:12 | Emergency (ER) | payer MEDICARE, OTHER ==
[2021-05-13 17:27] VITALS: BP 148/80; PULSE 66; RESP 17; TEMP 98.1
--- NOTE | 2021-05-13 18:08 | ED ---
General Adult HPI - General Chief complaint: Recheck/Abnormal Lab/Rx Stated complaint: dizziness Time Seen by Provider: 05/13/21 17:14 Source: EMS Mode of arrival: EMS Limitations: no limitations - History of Present Illness Initial comments: Dictation was produced using [employer] dictation software. please excuse any grammatical, word or spelling errors. Chief Complaint: 70-year-old male presents to the emergency department for dizziness and hypertension History of Present Illness: [id number] male who lives at home with his wi fe. He checked his blood pressure at home and is found to be high. Patient has history of hypertension. Takes Norvasc for his blood pressure. Patient checked his blood pressure no spinal be 175 systolic. He did have an episode of dizziness. Patient called EMS and he is brought to the emergency department. Patient denies any complaints at this time. No chest pain, shortness of breath, numbness and paresthesias to the arms or legs or headache. Patient feels at baseline currently. The ROS documented in this emergency department record has been reviewed and confirmed by me. Those systems with pertinent positive or negative responses have been documented in the HPI. All other systems are other negative and/or noncontributory. PHYSICAL EXAM: General Impression: Alert and oriented x3, not in acute distress HEENT: Normocephalic atraumatic, extra-ocular movements intact, pupils equal and reactive to light bilaterally, mucous membranes moist. Cardiovascular: Heart regular rate and rhythm Chest: Able to complete full sentences, no retractions, no tachypnea Abdomen: abdomen soft, non-tender, non-distended, no organomegaly Musculoskeletal: Pulses present and equal in all extremities, no peripheral edema Motor: no focal deficits noted Neurological: CN II-XII grossly intact, no focal motor or sensory deficits noted Skin: Intact with no visualized rashes Psych: Normal affect and mood ED course: 70 year-old no presents to the emergency department for episode of hypertension and dizziness. Vital signs upon arrival shows blood pressure of 140/80, rest of vital signs within acceptable limits. Patient is asymptomatic at this time. He feels at baseline. Physical examination is benign. Patient has no high-risk features. Denies any symptoms currently. Blood pressure is within acceptable limits. EKG is benign. Patient falling at baseline. Clinical presentation consistent with asymptomatic hypertension. Patient be discharged advised follow-up with primary care doctor. EKG interpretation: Ventricular rate 60, normal sinus rhythm,. Interval 90, Q is 96, QTC 418. No MS prolongation, no QTC prolongation, no ST or T-wave changes noted. EKG compared to 04/26/2021 showing no changes. Overall, this EKG is unremarkable - Related Data Home Medications Medication Instructions Recorded Confirmed Atorvastatin [Lipitor] 80 mg PO HS 05/26/17 04/26/21 Tamsulosin HCl [Flomax] 0.4 mg PO DAILY 05/26/17 04/26/21 Aspirin EC [Ecotrin Low Dose] 81 mg PO DAILY 02/12/18 04/26/21 calcitrioL [Calcitriol] 0.25 mcg PO MOTUTHSA 10/07/18 04/26/21 Mirabegron [Myrbetriq] 50 mg PO DAILY 05/17/19 04/26/21 Clopidogrel [Plavix] 75 mg PO DAILY 12/08/19 04/26/21 Cetirizine HCl [Zyrtec] 10 mg PO DAILY 11/18/20 04/26/21 Famotidine [Pepcid] 20 mg PO BID 11/18/20 04/26/21 Ferrous Sulfate [Iron (65 MG 325 mg PO BID 11/18/20 04/26/21 Elemental)] Sertraline HCl [Zoloft] 50 mg PO DAILY 11/18/20 04/26/21 Previous Rx's Medication Instructions Recorded amLODIPine [Norvasc] 5 mg PO DAILY 30 Days #30 tab 04/29/21 Allergies Allergy/AdvReac Type Severity Reaction Status Date / Time No Known Allergies Allergy Verified 04/26/21 18:40 Review of Systems ROS Statement: Those systems with pertinent positive or pertinent negative responses have been documented in the HPI. ROS Other: All systems not noted in ROS Statement are negative. Past Medical History Past Medical History: COPD, CVA/TIA, Eye Disorder, GERD/Reflux, Hyperlipidemia, Hypertension, Osteoarthritis (OA), Prostate Disorder, Renal Disease, Sleep Apnea/CPAP/BIPAP, Syncope Additional Past Medical History / Comment(s): pt is rt side dominant. hx ofMultiple TIAs, CVA 01/2017 with dysphagia-peg tube inserted and now out, has residual weakness lt arm/leg and some lt facial droop. chronic kidney disease BPH, Uti, ROSA has Cpap but does not tolerate it no longer using it, gastric ulcer, soniya eye cataracts, past hxR foot 3rd toe osteomylitis, arthritis multiple joints, past gastric ulcer, past hx shingels. , History of Any Multi-Drug Resistant Organisms: None Reported Past Surgical History: Hernia Repair, Joint Replacement Additional Past Surgical History / Comment(s): 06/01/17 intracranial angioplasty- (pt stated "he has stents') HFH, EGD with peg tube insertion since removed, R inguinal hernia repair, R total knee arthroplasty, colonoscopies with last one in 2019-normal., soniya eye cat sx Past Anesthesia/Blood Transfusion Reactions: No Reported Reaction Past Psychological History: No Psychological Hx Reported Smoking Status: Former smoker Past Alcohol Use History: Rare Past Drug Use History: None Reported - Past Family History Mother Family Medical History: CVA/TIA, Diabetes Mellitus, Hyperlipidemia, Hypertension Father Family Medical History: CVA/TIA, Hypertension General Exam Limitations: no limitations Course Vital Signs 05/13/21 17:23 Temperature 98.1 F Pulse Rate 66 Respiratory 17 Rate Blood Pressure 148/80 O2 Sat by Pulse 98 Oximetry Disposition Clinical Impression: Hypertension, Dizziness Disposition: HOME SELF-CARE Condition: Good Instructions (If sedation given, give patient instructions): Hypertension (ED) Is patient prescribed a controlled substance at d/c from ED?: No Referrals: Rick Luke MD [Primary Care Provider] - 1-2 days
== END 2021-05-13 18:48 | disposition home or self-care (01) ==
LOC: EC 17:12
DX: I12.9 Hypertensive chronic kidney disease with stage 1 through stage 4 chronic kidney disease, or unspecified chronic kidney disease (principal); J44.9 Chronic obstructive pulmonary disease, unspecified; E78.5 Hyperlipidemia, unspecified; N18.9 Chronic kidney disease, unspecified; G47.33 Obstructive sleep apnea (adult) (pediatric); K21.9 Gastro-esophageal reflux disease without esophagitis; M19.90 Unspecified osteoarthritis, unspecified site; N40.0 Benign prostatic hyperplasia without lower urinary tract symptoms; Z86.73 Personal history of transient ischemic attack (TIA), and cerebral infarction without residual deficits; Z87.440 Personal history of urinary (tract) infections; Z87.891 Personal history of nicotine dependence; Z79.02 Long term (current) use of antithrombotics/antiplatelets; Z79.82 Long term (current) use of aspirin
CPT/HCPCS: 93005; 99284

== ENCOUNTER 2021-08-21 13:45 | Observation (INO) | payer MEDICARE, OTHER ==
[2021-08-21] MEDS ORDERED: SODIUM CHLORIDE 0.9% 1,000 ML IV STA ×2 (14:17→16:28)
[2021-08-21 14:44] LABS: Albumin 3.7 g/dL (3.5-5.0); Calcium 9.7 mg/dL (8.4-10.2); Magnesium 1.7 mg/dL (1.6-2.3); Partial Thromboplastin Time 24.7 sec (22.0-30.0); Potassium 3.9 mmol/L (3.5-5.1); Prothrombin Time 10.3 sec (9.0-12.0); Total Bilirubin 0.5 mg/dL (0.2-1.3)
[2021-08-21 14:50] LABS: Anisocytosis Slight; Basophils % (A) 1 %; Eosinophils # (A) 0.1 k/uL (0-0.7); Eosinophils % (A) 2 %; HCT 35.4 % (39.0-53.0); HGB 11.6 gm/dL (13.0-17.5); Lymphocytes # (A) 1.7 k/uL (1.0-4.8); Lymphocytes % (A) 25 %; MCH 31.5 pg (25.0-35.0); MCHC 32.7 g/dL (31.0-37.0); MCV 96.5 fL (80.0-100.0); Mean Platelet Volume 7.1; Monocytes # (A) 0.3 k/uL (0-1.0); Monocytes % (A) 4 %; Neutrophils # (A) 4.7 k/uL (1.3-7.7); Neutrophils % (A) 67 %; Platelet Count 302 k/uL (150-450); RBC 3.67 m/uL (4.30-5.90); RDW 16.2 % (11.5-15.5)
--- NOTE | 2021-08-21 15:17 | CT ---
EXAMINATION TYPE: CT brain wo con DATE OF EXAM: 08/21/2021 COMPARISON: None HISTORY: Falls. CT DLP: 1064.4 mGycm Automated exposure control for dose reduction was used. There is cerebral atrophy. There is no mass effect nor midline shift. There is no sign of intracrania l hemorrhage. There is patchy hypodensity in the periventricular white matter. Calvarium is intact. T here is normal aeration of the mastoid sinuses. IMPRESSION: Cerebral atrophy and chronic small vessel ischemia. No acute intracranial abnormality. No change.
--- NOTE | 2021-08-21 15:19 | XR ---
EXAMINATION TYPE: XR chest 2V DATE OF EXAM: 08/21/2021 COMPARISON: 04/26/2021 HISTORY: Chest pain TECHNIQUE: 2 views FINDINGS: Heart is normal. Lungs are clear of infiltrate. There is no heart failure. There are no hil ar masses. Thoracic aorta is atheromatous. There is some minimal pleural reaction at the lateral left lung base. IMPRESSION: Atheromatous aorta. Minimal pleural reaction lateral left lung base is a change compared to old exam.
--- NOTE | 2021-08-21 16:40 | ED ---
General Adult HPI - General Chief complaint: Fall Stated complaint: Falls Time Seen by Provider: 08/21/21 14:02 Source: EMS, RN notes reviewed, old records reviewed Mode of arrival: EMS Limitations: altered mental status - History of Present Illness Initial comments: I evaluated the patient would he was placed in a room. Patient is a 70-year-old male who presents emergency department being brought in by EMS with his over concern for a mechanical fall. Patient has a history of dementia, COPD, stroke, hypertension, prostate disease, renal disease on Coumadin at home presents emergency Department after mechanical fall at home. Patient fell yes terday as well. Is acting normally and did not hit his head and did not get emergency department for evaluation. Patient had another mechanical fall today. He states he did not lose consciousness. He states he felt like he is going to fall down was able to lower himself slowly. He did hold onto the towel bar which was pulled off the wall and struck him in the face per his . Patient denies any loss of consciousness. He does have a history of syncopal episodes. Patient otherwise has been acting normally per . Patient denies any chest pain, shortness breath, abdominal pain, nausea, vomiting. Patient's hasbeen having decreased by mouth intake over the last few days. She is concerned that he may have a UTI or dehydration. She denies any altered mental status with the patient. Patient currently has no acute complaints and is alert and oriented 4. He has been compliant with all medications per . Patient presents for evaluation following the mechanical fall. Patient fell from a standing position. - Related Data Home Medications Medication Instructions Recorded Confirmed Atorvastatin [Lipitor] 80 mg PO HS 05/26/17 08/21/21 Tamsulosin HCl [Flomax] 0.4 mg PO DAILY 05/26/17 08/21/21 Aspirin EC [Ecotrin Low Dose] 81 mg PO DAILY 02/12/18 08/21/21 calcitrioL [Calcitriol] 0.25 mcg PO [facility] 10/07/18 08/21/21 Mirabegron [Myrbetriq] 50 mg PO DAILY 05/17/19 08/21/21 Clopidogrel [Plavix] 75 mg PO DAILY 12/08/19 08/21/21 Cetirizine HCl [Zyrtec] 10 mg PO DAILY PRN 11/18/20 08/21/21 Famotidine [Pepcid] 20 mg PO BID 11/18/20 08/21/21 Ferrous Sulfate [Iron (65 MG 325 mg PO BID 11/18/20 08/21/21 Elemental)] Sertraline HCl [Zoloft] 50 mg PO DAILY 11/18/20 08/21/21 Docusate [Colace] 100 mg PO DAILY PRN 08/21/21 08/21/21 amLODIPine [Norvasc] 2.5 mg PO DAILY 08/21/21 08/21/21 Allergies Allergy/AdvReac Type Severity Reaction Status Date / Time No Known Allergies Allergy Verified 08/21/21 14:42 Review of Systems ROS Statement: Those systems with pertinent positive or pertinent negative responses have been documented in the HPI. Review of Systems: CONST: Denies fever EYES: Denies blurry vision ENT: Denies nasal congestion C/V: Denies Chest pain RESP: Denies shortness of breath GI: Denies abdominal pain : Denies dysuria SKIN: Denies rash. MSK: Denies joint pain. NEURO: Denies headache ROS Other: All systems not noted in ROS Statement are negative. 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 hx ofMultiple TIAs, CVA 01/2017 with dysphagia-peg tube inserted and now out, has residual weakness lt arm/leg and some lt facial droop. chronic kidney disease BPH, Uti, ROSA has Cpap but does not tolerate it no longer using it, gastric ulcer, soniya eye cataracts, past hxR foot 3rd toe osteomylitis, arthritis multiple joints, past gastric ulcer, past hx shingels. , History of Any Multi-Drug Resistant Organisms: None Reported Past Surgical History: Hernia Repair, Joint Replacement Additional Past Surgical History / Comment(s): 06/01/17 intracranial angioplasty- (pt stated "he has stents') HFH, EGD with peg tube insertion since removed, R inguinal hernia repair, R total knee arthroplasty, colonoscopies with last one in 2019-normal., soniya eye cat sx Past Anesthesia/Blood Transfusion Reactions: No Reported Reaction Past Psychological History: No Psychological Hx Reported Smoking Status: Former smoker Past Alcohol Use History: Rare Past Drug Use History: None Reported - Past Family History Mother Family Medical History: CVA/TIA, Diabetes Mellitus, Hyperlipidemia, Hypertension Father Family Medical History: CVA/TIA, Hypertension General Exam - General Exam Comments Initial Comments: General: Appears in no acute distress. HEAD: Normal with no signs of head trauma. No raccoon eyes, no cornell sign. No obvious step-offs or deformities of the skull. EYES: PERRLA, EOMI, conjunctiva normal, no discharge. Pupils are 3 mm and equal bilaterally. ENT: Hearing grossly intact, normal oropharynx. Somewhat dry mucous membranes. Patient does have a small abrasion over the right cheek without any tenderness to palpation. RESPIRATORY: Clear breath sounds bilaterally. No wheezes, rales, or rhonchi. C/V: Regular rate and rhythm. S1 and S2 auscultated, no edema, peripheral pulses 2+ and intact throughout ABD: Abd is soft, nontender, nondistended EXT: Normal range of motion, no obvious deformity SKIN: Small abrasion over right cheek without any tenderness to palpation. NEURO: Alert and oriented x 4. Cranial nerves II-XII intact. No focal sensory or strength deficits. Cerebellar function is intact as evident by normal finger to nose testing. NIH is 0. GCS is 15. Limitations: altered mental status Course Vital Signs 08/21/21 08/21/21 13:48 18:09 Temperature 98.7 F 98.4 F Pulse Rate 69 65 Respiratory 16 16 Rate Blood Pressure 129/80 154/92 O2 Sat by Pulse 97 99 Oximetry Medical Decision Making - Medical Decision Making Based on the patient's presentation and physical exam, with this history of being on Coumadin as well as his mechanical fall, I would like to obtain a CT head to rule out any intracranial bleed, as the patient also fell yesterday but denies any loss consciousness or hitting his head. We will obtain a cardiac workup in addition to urine studies and basic laboratory studies. He will be symptomatically treated with 1 L fluid bolus. Patient's was in agreement this plan. He'll be connected to continuous cardiac monitoring while he is here in the department. He does not meet criteria for trauma activation as he fell from a standing position and denies any head trauma. Upon further review, patient does not appear to be on Coumadin but rather Plavix and aspirin. Patient's EKG shows no signs of acute ischemia on chronic changes. Chest x-ray shows no acute cardiopulmonary process. Laboratory studies are remarkable for a chronic normocytic anemia with a hemoglobin of 11.6 which is proximally his baseline. INR is 1 which supports of the patient is not on Coumadin. Laboratory studies are remarkable for an AK I with a slightly worsening creatinine of 1.47. Slightly worse from his baseline. Troponin is negative. Patient's urinalysis does not reveal signs of acute UTI. There are some RBCs present likely secondary to the straight catheterization the head be performed. On reevaluation, patient and were informed the results of his imaging and laboratory studies and EKG. We discussed that I believe it is best for him to be admitted for IV fluid hydration for his dehydration. There were in agreement this plan. There was a delay in obtaining the urinalysis initially as the patient was unable to urinate. Patient's and I wanted to see the results prior to deciding admission versus discharge home. Therefore the patient had a delay in stay in the emergency department. I spoke with the admitting physician Dr. Omalley after multiple attempts were made to speak with [facility] electronic typesetting machine operator. SHe accepted the patient. Patient was therefore admitted to observation in stable condition. - Lab Data Result diagrams: 08/21/21 14:25 08/21/21 14:25 Lab Results 08/21/21 08/21/21 08/21/21 Range/Units 14:25 14:25 14:25 WBC 7.0 (3.8-10.6) k/uL RBC 3.67 L (4.30-5.90) m/uL Hgb 11.6 L (13.0-17.5) gm/dL Hct 35.4 L (39.0-53.0) % MCV 96.5 (80.0-100.0) fL MCH 31.5 (25.0-35.0) pg MCHC 32.7 (31.0-37.0) g/dL RDW 16.2 H (11.5-15.5) % Plt Count 302 (150-450) k/uL MPV 7.1 Neutrophils % 67 % Lymphocytes % 25 % Monocytes % 4 % Eosinophils % 2 % Basophils % 1 % Neutrophils # 4.7 (1.3-7.7) k/uL Lymphocytes # 1.7 (1.0-4.8) k/uL Monocytes # 0.3 (0-1.0) k/uL Eosinophils # 0.1 (0-0.7) k/uL Basophils # 0.0 (0-0.2) k/uL Anisocytosis Slight PT 10.3 (9.0-12.0) sec INR 1.0 (<1.2) APTT 24.7 (22.0-30.0) sec Sodium (137-145) mmol/L Potassium (3.5-5.1) mmol/L Chloride (98-107) mmol/L Carbon Dioxide (22-30) mmol/L Anion Gap mmol/L BUN (9-20) mg/dL Creatinine (0.66-1.25) mg/dL Est GFR (CKD-EPI)AfAm (>60 ml/min/1.73 sqM) Est GFR (CKD-EPI)NonAf (>60 ml/min/1.73 sqM) Glucose (74-99) mg/dL Calcium (8.4-10.2) mg/dL Magnesium (1.6-2.3) mg/dL Total Bilirubin (0.2-1.3) mg/dL AST (17-59) U/L ALT (4-49) U/L Alkaline Phosphatase (38-126) U/L Troponin I (0.000-0.034) ng/mL Total Protein (6.3-8.2) g/dL Albumin (3.5-5.0) g/dL Urine Color Yellow Urine Appearance Cloudy (Clear) Urine pH 6.0 (5.0-8.0) Ur Specific Bricelyn 1.031 (1.001-1.035) Urine Protein 1+ H (Negative) Urine Glucose (UA) Negative (Negative) Urine Ketones Negative (Negative) Urine Blood Negative (Negative) Urine Nitrite Negative (Negative) Urine Bilirubin Negative (Negative) Urine Urobilinogen 4.0 (<2.0) mg/dL Ur Leukocyte Esterase Negative (Negative) Urine RBC 22 H (0-5) /hpf Urine WBC 3 (0-5) /hpf Ur Squamous Epith Cells <1 (0-4) /hpf Urine Bacteria Rare H (None) /hpf Hyaline Casts 17 H (0-2) /lpf Urine Mucus Many H (None) /hpf 08/21/21 08/21/21 Range/Units 14:25 14:25 WBC (3.8-10.6) k/uL RBC (4.30-5.90) m/uL Hgb (13.0-17.5) gm/dL Hct (39.0-53.0) % MCV (80.0-100.0) fL MCH (25.0-35.0) pg MCHC (31.0-37.0) g/dL RDW (11.5-15.5) % Plt Count (150-450) k/uL MPV Neutrophils % % Lymphocytes % % Monocytes % % Eosinophils % % Basophils % % Neutrophils # (1.3-7.7) k/uL Lymphocytes # (1.0-4.8) k/uL Monocytes # (0-1.0) k/uL Eosinophils # (0-0.7) k/uL Basophils # (0-0.2) k/uL Anisocytosis PT (9.0-12.0) sec INR (<1.2) APTT (22.0-30.0) sec Sodium 136 L (137-145) mmol/L Potassium 3.9 (3.5-5.1) mmol/L Chloride 104 (98-107) mmol/L Carbon Dioxide 25 (22-30) mmol/L Anion Gap 7 mmol/L BUN 22 H (9-20) mg/dL Creatinine 1.47 H (0.66-1.25) mg/dL Est GFR (CKD-EPI)AfAm 55 (>60 ml/min/1.73 sqM) Est GFR (CKD-EPI)NonAf 47 (>60 ml/min/1.73 sqM) Glucose 108 H (74-99) mg/dL Calcium 9.7 (8.4-10.2) mg/dL Magnesium 1.7 (1.6-2.3) mg/dL Total Bilirubin 0.5 (0.2-1.3) mg/dL AST 23 (17-59) U/L ALT 20 (4-49) U/L Alkaline Phosphatase 99 (38-126) U/L Troponin I <0.012 (0.000-0.034) ng/mL Total Protein 7.0 (6.3-8.2) g/dL Albumin 3.7 (3.5-5.0) g/dL Urine Color Urine Appearance (Clear) Urine pH (5.0-8.0) Ur Specific Bricelyn (1.001-1.035) Urine Protein (Negative) Urine Glucose (UA) (Negative) Urine Ketones (Negative) Urine Blood (Negative) Urine Nitrite (Negative) Urine Bilirubin (Negative) Urine Urobilinogen (<2.0) mg/dL Ur Leukocyte Esterase (Negative) Urine RBC (0-5) /hpf Urine WBC (0-5) /hpf Ur Squamous Epith Cells (0-4) /hpf Urine Bacteria (None) /hpf Hyaline Casts (0-2) /lpf Urine Mucus (None) /hpf - EKG Data -: EKG Interpreted by Me EKG Comments: 12-lead Electrocardiogram Interpretation Note EKG was reviewed and interpreted by myself. 12-lead ECG performed at 1401 is interpreted by me as revealing normal sinus rhythm at a rate of 67 beats per minute. Nadeau is normal. CA interval is 190 ms, QRS duration is 80 ms, QTc is 384 ms.. There are T-wave inversions in the lateral precordial leads V4 through V6 which are seen on prior EKGs, most recently in October 2020.. R wave progression across the precordium was satisfactory. By my interpretation this EKG is non-diagnostic for acute ischemia. Disposition Clinical Impression: Fall, Dehydration, Dementia, JENNIFER (acute kidney injury) Disposition: ADMITTED IP TO THIS [facility] Condition: Stable Referrals: Rick Luke MD [Primary Care Provider] - 1-2 days
[2021-08-21 17:38] LABS: Appearance,Urine Cloudy (Clear); Bacteria,Urine Rare /hpf; Bilirubin,Urine Negative (Negative); Blood,Urine Negative (Negative); Color,Urine Yellow; Glucose,Urine (UA) Negative (Negative); Hyaline Casts,Urine 17 /lpf (0-2); Ketones,Urine Negative (Negative); Leukocyte Esterase,Urine Negative (Negative); Mucus,Urine Many /hpf; Nitrite,Urine Negative (Negative); Protein,Urine 1+ (Negative); RBC,Urine 22 /hpf (0-5); Specific Gravity,Urine 1.031 (1.001-1.035); Squamous Epithelial Cell,Urine <1 /hpf (0-4); WBC,Urine 3 /hpf (0-5)
[2021-08-21] MEDS ORDERED: ACETAMINOPHEN TAB 325 MG TAB PO PRN (18:41)
[2021-08-21] MEDS ORDERED: IBUPROFEN 400 MG TAB PO PRN (18:41)
[2021-08-21] MEDS ORDERED: NALOXONE 0.4 MG/ML 1 ML VIAL IV PRN (18:41)
[2021-08-21] MEDS ORDERED: DOCUSATE 100 MG CAP PO PRN (18:43)
[2021-08-21] MEDS ORDERED: LORATADINE 10 MG TAB PO PRN (18:43)
[2021-08-21] MEDS: SODIUM CHLORIDE 0.9% 1,000 ML IV SCH (19:10)
[2021-08-21] MEDS: ATORVASTATIN 80 MG TAB PO SCH (21:30)
[2021-08-21] MEDS: HEPARIN SODIUM,PORCINE/PF 5,000 UNIT/0.5 ML SYRINGE SQ SCH (21:31)
[2021-08-21] MEDS: FERROUS SULFATE 325 MG TAB PO SCH (21:31)
[2021-08-21] MEDS: FAMOTIDINE 20 MG TAB PO SCH (21:31)
[2021-08-22] MEDS: NON FORMULARY DRUG (Mirabegron [Myrbetriq] 50 MG Tab.Er.24h) PO SCH (08:58)
[2021-08-22] MEDS: ASPIRIN 81 MG PO SCH (09:00)
[2021-08-22] MEDS: CLOPIDOGREL 75 MG TAB PO SCH (09:00)
[2021-08-22] MEDS: TAMSULOSIN 0.4 MG CAP.ER.24H PO SCH (09:00)
[2021-08-22] MEDS: HEPARIN SODIUM,PORCINE/PF 5,000 UNIT/0.5 ML SYRINGE SQ SCH ×3 (09:00→21:01)
[2021-08-22] MEDS: amLODIPine 2.5 MG TAB PO SCH (09:00)
[2021-08-22] MEDS: SERTRALINE 50 MG TAB PO SCH (09:00)
[2021-08-22] MEDS: FERROUS SULFATE 325 MG TAB PO SCH ×2 (09:00→21:00)
[2021-08-22] MEDS: FAMOTIDINE 20 MG TAB PO SCH ×2 (09:00→21:00)
[2021-08-22] MEDS: SODIUM CHLORIDE 0.9% 1,000 ML IV SCH ×2 (09:00→21:01)
--- NOTE | 2021-08-22 16:07 | P.HPIM ---
History of Present Illness Patient is a pleasant 70 male came in after multiple mechanical falls. Patient does have history of mild dementia although patient is alert oriented times close to 3 been evaluated the patient. Patient was diagnosed with dehydration was started on IV fluids and admitted to the hospital. Patient does have other chronic medical problems including atrial fibrillation. Patient will be monitored overnight in the hospital continue with IV fluids, patient of baseline creatinine is around 1.2 which went up to 1.47. Patient doesn't have any evidence of sepsis at this time doesn't have any evidence of urinary tract infection. REVIEW OF SYSTEMS: CONSTITUTIONAL: No fever, no malaise, no fatigue. HEENT: No recent visual problems or hearing problems. Denied any sore throat. CARDIOVASCULAR: No chest pain, orthopnea, PND, no palpitations, no syncope. PULMONARY: No shortness of breath, no cough, no hemoptysis. GASTROINTESTINAL: No diarrhea, no nausea, no vomiting, no abdominal pain. NEUROLOGICAL: No headaches, no weakness, no numbness. HEMATOLOGICAL: Denies any bleeding or petechiae. GENITOURINARY: Denies any burning micturition, frequency, or urgency. MUSCULOSKELETAL/RHEUMATOLOGICAL: Denies any joint pain, swelling, or any muscle pain. ENDOCRINE: Denies any polyuria or polydipsia. The rest of the 14-point review of systems is negative. PHYSICAL EXAMINATION: GENERAL: The patient is alert and oriented x3, not in any acute distress. Well developed, well nourished. HEENT: Pupils are round and equally reacting to light. EOMI. No scleral icterus. No conjunctival pallor. Normocephalic, atraumatic. No pharyngeal erythema. No thyromegaly. CARDIOVASCULAR: S1 and S2 present. No murmurs, rubs, or gallops. PULMONARY: Chest is clear to auscultation, no wheezing or crackles. ABDOMEN: Soft, nontender, nondistended, normoactive bowel sounds. No palpable organomegaly. MUSCULOSKELETAL: No joint swelling or deformity. EXTREMITIES: No cyanosis, clubbing, or pedal edema. NEUROLOGICAL: Gross neurological examination did not reveal any focal deficits. SKIN: No rashes. Assessment and plan -Dehydration and acute renal failure prerenal azotemia. 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 hx ofMultiple TIAs, CVA 01/2017 with dysphagia-peg tube inserted and now out, has residual weakness lt arm/leg and some lt facial droop. chronic kidney disease BPH, Uti, ROSA has Cpap but does not tolerate it no longer using it, gastric ulcer, soniya eye cataracts, past hxR foot 3rd toe osteomylitis, arthritis multiple joints, past gastric ulcer, past hx shingels. , History of Any Multi-Drug Resistant Organisms: None Reported Past Surgical History: Hernia Repair, Joint Replacement Additional Past Surgical History / Comment(s): 06/01/17 intracranial angioplasty- (pt stated "he has stents') HFH, EGD with peg tube insertion since removed, R inguinal hernia repair, R total knee arthroplasty, colonoscopies with last one in 2019-normal., soniya eye cat sx Past Anesthesia/Blood Transfusion Reactions: No Reported Reaction Past Psychological History: No Psychological Hx Reported Additional Psychological History / Comment(s): Pt lives with his in 2 story home that has 4 front porch steps. Pt stays on first level. No pets. No home care services. Pt uses a cane/walker to ambulate. Pt no longer drives, his spouse drives him to appts. Smoking Status: Former smoker Past Alcohol Use History: Rare Additional Past Alcohol Use History / Comment(s): started smoking 1963. quit 2015 smoked 1 ppd, no alcohol since 2015 Past Drug Use History: None Reported - Past Family History Mother Family Medical History: CVA/TIA, Diabetes Mellitus, Hyperlipidemia, Hypertension Father Family Medical History: CVA/TIA, Hypertension Medications and Allergies Home Medications Medication Instructions Recorded Confirmed Type Atorvastatin [Lipitor] 80 mg PO HS 05/26/17 08/21/21 History Tamsulosin HCl [Flomax] 0.4 mg PO DAILY 05/26/17 08/21/21 History Aspirin EC [Ecotrin Low Dose] 81 mg PO DAILY 02/12/18 08/21/21 History calcitrioL [Calcitriol] 0.[address] [facility] 10/07/18 08/21/21 History Mirabegron [Myrbetriq] 50 mg PO DAILY 05/17/19 08/21/21 History Clopidogrel [Plavix] 75 mg PO DAILY 12/08/19 08/21/21 History Cetirizine HCl [Zyrtec] 10 mg PO DAILY PRN 11/18/20 08/21/21 History Famotidine [Pepcid] 20 mg PO BID 11/18/20 08/21/21 History Ferrous Sulfate [Iron (65 MG 325 mg PO BID 11/18/20 08/21/21 History Elemental)] Sertraline HCl [Zoloft] 50 mg PO DAILY 11/18/20 08/21/21 History Docusate [Colace] 100 mg PO DAILY PRN 08/21/21 08/21/21 History amLODIPine [Norvasc] 2.5 mg PO DAILY 08/21/21 08/21/21 History Allergies Allergy/AdvReac Type Severity Reaction Status Date / Time No Known Allergies Allergy Verified 08/21/21 14:42 Physical Exam Vitals: Vital Signs Temp Pulse Pulse Resp BP BP Pulse Ox 08/22/21 14:29 98.0 F 72 18 151/71 97 08/22/21 12:24 98.1 F 65 16 155/90 97 08/22/21 07:51 98.3 F 62 16 158/83 98 08/22/21 01:00 70 18 179/91 96 08/21/21 21:00 87 18 141/78 95 08/21/21 18:09 98.4 F 65 16 154/92 99 Intake and Output 08/22/21 08/22/21 08/22/21 06:59 14:59 22:59 Other: Weight 84.368 kg Results CBC & Chem 7: 08/21/21 14:25 08/21/21 14:25 Labs: Abnormal Lab Results - Last 24 Hours (Table) 08/21/21 Range/Units 14:25 Urine Protein 1+ H (Negative) Urine RBC 22 H (0-5) /hpf Urine Bacteria Rare H (None) /hpf Hyaline Casts 17 H (0-2) /lpf Urine Mucus Many H (None) /hpf Thrombosis Risk Factor Assmnt - Choose All That Apply Any of the Below Risk Factors Present?: No Other Risk Factors: Yes Each Risk Factor Represents 2 Points: Age 61-74 years Other congenital or acquired thrombophilia - If yes, enter type in comment: No Thrombosis Risk Factor Assessment Total Risk Factor Score: 2 Thrombosis Risk Factor Assessment Level: Low Risk
[2021-08-22] MEDS ORDERED: HEPARIN SODIUM,PORCINE/PF 5,000 UNIT/0.5 ML SYRINGE SQ SCH (21:00)
[2021-08-22] MEDS: ATORVASTATIN 80 MG TAB PO SCH (21:00)
[2021-08-23] MEDS: HEPARIN SODIUM,PORCINE/PF 5,000 UNIT/0.5 ML SYRINGE SQ SCH (07:09)
[2021-08-23 07:13] VITALS: TEMP 97.9
[2021-08-23 09:04] VITALS: BP 174/89; PULSE 66; RESP 17
[2021-08-23 09:31] LABS: HCT 33.3 % (39.6-50.0); HGB 10.5 g/dL (13.0-17.0); MCH 30.2 pg (27.0-32.0); MCHC 31.5 g/dL (32.0-37.0); MCV 95.7 fL (80.0-97.0); Mean Platelet Volume 9.8 fL (9.5-12.2); Platelet Count 261 X 10*3/uL (140-440); RBC 3.48 X 10*6/uL (4.40-5.60); RDW 15.7 % (11.5-14.5); WBC 6.06 X 10*3/uL (4.50-10.00)
[2021-08-23] MEDS: TAMSULOSIN 0.4 MG CAP.ER.24H PO SCH (10:03)
[2021-08-23] MEDS: CLOPIDOGREL 75 MG TAB PO SCH (10:04)
[2021-08-23] MEDS: FAMOTIDINE 20 MG TAB PO SCH (10:04)
[2021-08-23] MEDS: amLODIPine 2.5 MG TAB PO SCH (10:04)
[2021-08-23] MEDS: SERTRALINE 50 MG TAB PO SCH (10:04)
[2021-08-23] MEDS: ASPIRIN 81 MG PO SCH (10:04)
[2021-08-23] MEDS: FERROUS SULFATE 325 MG TAB PO SCH (10:04)
[2021-08-23] MEDS: NON FORMULARY DRUG (Mirabegron [Myrbetriq] 50 MG Tab.Er.24h) PO SCH (10:13)
[2021-08-23] MEDS: SODIUM CHLORIDE 0.9% 1,000 ML IV SCH (10:14)
[2021-08-23 10:26] LABS: BUN/Creat Ratio 11.52 Ratio (12.00-20.00)
[2021-08-23 10:27] LABS: African American GFR (CKD) 76.2 (60.0-200.0); Anion Gap 12.2 mmol/L (4.00-12.00); Blood Urea Nitrogen 12.9 mg/dL (9.0-27.0); Calcium 8.9 mg/dL (8.7-10.3); Carbon Dioxide 21.9 mmol/L (21.6-31.8); Non-African American GFR(CKD) 65.7 (60.0-200.0); Potassium 3.5 mmol/L (3.5-5.5)
[2021-08-23] MEDS ORDERED: Potassium Replacement Protocol 1 EACH MISC MISCELLANE PRN (10:39)
[2021-08-23] MEDS: POTASSIUM CHLORIDE ER 20 MEQ TAB.ER PO SCH (11:05)
--- NOTE | 2021-08-23 12:41 | P.DS ---
Providers Date of admission: 08/21/21 18:43 Attending physician: Deanna Omalley MD Primary care physician: Rick Luke Hospital Course: Final diagnoses -Dehydration and acute renal failure prerenal azotemia. 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 Patient does present with multiple falls from home. There is a history of mild dementia although patient is alert and oriented 3 time of my evaluation. Patient with a repeat metabolic panel done in 2 days. Hospital course This is a pleasant 70 male who came into the after suffering multiple mechanical falls at home. He does at home with his . Patient does have a history of mild dementia however he is alert and oriented 3 during evaluation. Patient was diagnosed with dehydration and responded well to IV fluids and admitted to the hospital. His creatinine was 1.47 recheck today includes a BUN of 12.9 and a creatinine level of 1.1. Patient's sodium levels normal 137, potassium is 3.50 replaced per protocol. Troponin was negative. UA was negative for any signs of infection, Covid PCR is negative. Hemoglobin is stable at 10.5 and WBCs stable at 6.06. Vital signs include a temp of 97.9, heart rate 66 Atrovent, and a blood pressure 174/89. Patient is 99% on room air. Patient was resumed on all other home medications. Brain CT completed in the [facility] revealed cerebral atrophy and chronic small vessel ischemia. There is no acute intracranial abnormality. No change. Chest x-ray in the [facility] showed an atheromatous misael. Minimal pleural reaction lateral left lung base is a change compared to old exam. 08/23/2021 Patient evaluated today resting the bedside. PT evaluation completed and recommendation is for PIERRE on discharge. He is cleared medically for discharge to rehab. His metabolic panel has normalized and there is no signs of infection. We will check an orthostatic blood pressure. Patient denies chest pain, cough, shortness of breath. Lungs are clear to auscultation, S1-S2 auscultated, abdomen is soft nontender. Patient denies any pain and focal neurological exam is negative. Please see medication requisition for list of current medications. Thank you for allowing us to be dispensed care of this patient. Patient Condition at Discharge: Stable Plan - Discharge Summary Discharge Rx Participant: No New Discharge Prescriptions: New Acetaminophen [Tylenol] 650 mg PO Q6HR #8 capsule Continue Atorvastatin [Lipitor] 80 mg PO HS Tamsulosin HCl [Flomax] 0.4 mg PO DAILY Aspirin EC [Ecotrin Low Dose] 81 mg PO DAILY calcitrioL [Calcitriol] 0.25 mcg PO [facility] Mirabegron [Myrbetriq] 50 mg PO DAILY Clopidogrel [Plavix] 75 mg PO DAILY Sertraline HCl [Zoloft] 50 mg PO DAILY Ferrous Sulfate [Iron (65 MG Elemental)] 325 mg PO BID Cetirizine HCl [Zyrtec] 10 mg PO DAILY PRN PRN Reason: Allergy Symptoms Famotidine [Pepcid] 20 mg PO BID amLODIPine [Norvasc] 2.5 mg PO DAILY Docusate [Colace] 100 mg PO DAILY PRN PRN Reason: Constipation Discharge Medication List Atorvastatin [Lipitor] 80 mg PO HS 05/26/17 [History] Tamsulosin HCl [Flomax] 0.4 mg PO DAILY 05/26/17 [History] Aspirin EC [Ecotrin Low Dose] 81 mg PO DAILY 02/12/18 [History] calcitrioL [Calcitriol] 0.25 mcg PO [facility] 10/07/18 [History] Mirabegron [Myrbetriq] 50 mg PO DAILY 05/17/19 [History] Clopidogrel [Plavix] 75 mg PO DAILY 12/08/19 [History] Cetirizine HCl [Zyrtec] 10 mg PO DAILY PRN 11/18/20 [History] Famotidine [Pepcid] 20 mg PO BID 11/18/20 [History] Ferrous Sulfate [Iron (65 MG Elemental)] 325 mg PO BID 11/18/20 [History] Sertraline HCl [Zoloft] 50 mg PO DAILY 11/18/20 [History] Docusate [Colace] 100 mg PO DAILY PRN 08/21/21 [History] amLODIPine [Norvasc] 2.5 mg PO DAILY 08/21/21 [History] Acetaminophen [Tylenol] 650 mg PO Q6HR #8 capsule 08/23/21 [Rx] Follow up Appointment(s)/Referral(s): Rick Luke MD [Primary Care Provider] - 1-2 days Ambulatory/Diagnostic Orders: Basic Metabolic Panel [LAB.AMB] Time Frame: 2 Days, Location: None Selected Discharge Disposition: TRANSFER TO SNF/ECF
== END 2021-08-23 15:15 ==
LOC: EC 13:45 → 6NMEDSUR 18:43
PROVIDERS: ADMIT Internal Medicine; ATTEND Internal Medicine
DX: E86.0 Dehydration (principal); R41.82 Altered mental status, unspecified; I12.9 Hypertensive chronic kidney disease with stage 1 through stage 4 chronic kidney disease, or unspecified chronic kidney disease; N18.30 Chronic kidney disease, stage 3 unspecified; N17.9 Acute kidney failure, unspecified; R79.89 Other specified abnormal findings of blood chemistry; K21.9 Gastro-esophageal reflux disease without esophagitis; M62.50 Muscle wasting and atrophy, not elsewhere classified, unspecified site; E78.5 Hyperlipidemia, unspecified; N40.0 Benign prostatic hyperplasia without lower urinary tract symptoms; R29.6 Repeated falls; G31.9 Degenerative disease of nervous system, unspecified; F02.80 Dementia in other diseases classified elsewhere, unspecified severity, without behavioral disturbance, psychotic disturbance, mood disturbance, and anxiety; I48.91 Unspecified atrial fibrillation; M19.90 Unspecified osteoarthritis, unspecified site; D64.9 Anemia, unspecified; J44.9 Chronic obstructive pulmonary disease, unspecified; I69.354 Hemiplegia and hemiparesis following cerebral infarction affecting left non-dominant side; I69.392 Facial weakness following cerebral infarction; I69.391 Dysphagia following cerebral infarction; G47.33 Obstructive sleep apnea (adult) (pediatric); W18.30XA Fall on same level, unspecified, initial encounter; Y92.009 Unspecified place in unspecified non-institutional (private) residence as the place of occurrence of the external cause; Z20.822 Contact with and (suspected) exposure to COVID-19; Z87.440 Personal history of urinary (tract) infections; Z87.11 Personal history of peptic ulcer disease; Z86.19 Personal history of other infectious and parasitic diseases; Z96.651 Presence of right artificial knee joint; Z95.828 Presence of other vascular implants and grafts; Z87.891 Personal history of nicotine dependence; Z53.29 Procedure and treatment not carried out because of patient's decision for other reasons; Z79.899 Other long term (current) drug therapy; Z79.82 Long term (current) use of aspirin; Z79.02 Long term (current) use of antithrombotics/antiplatelets; Z83.3 Family history of diabetes mellitus; Z82.49 Family history of ischemic heart disease and other diseases of the circulatory system; Z82.3 Family history of stroke; Z83.438 Family history of other disorder of lipoprotein metabolism and other lipidemia
CPT/HCPCS: 96361 ×4; 96372 ×3; 96360; 99285; 36415; 93005; 97162; 97166; 80053; 80048; 83735; 84484; 85025; 85027; 85610; 85730; 81001; 87635; 71046; 70450; G0378 ×3; J1644 ×3

== ENCOUNTER 2022-01-16 17:28 | Observation (INO) | payer MEDICARE, OTHER ==
[2022-01-16] MEDS ORDERED: SODIUM CHLORIDE 0.9% 1,000 ML IV STA (17:59)
[2022-01-16 19:14] LABS: Anisocytosis Slight; Basophils % (A) 0 %; Eosinophils # (A) 0.1 k/uL (0-0.7); Eosinophils % (A) 2 %; HCT 35.5 % (39.0-53.0); HGB 11.6 gm/dL (13.0-17.5); Hypochromasia Slight; Lymphocytes # (A) 1.1 k/uL (1.0-4.8); Lymphocytes % (A) 23 %; MCH 31.6 pg (25.0-35.0); MCHC 32.5 g/dL (31.0-37.0); MCV 97.3 fL (80.0-100.0); Mean Platelet Volume 7.4; Monocytes # (A) 0.3 k/uL (0-1.0); Monocytes % (A) 5 %; Neutrophils # (A) 3.3 k/uL (1.3-7.7); Neutrophils % (A) 67 %; Platelet Count 277 k/uL (150-450); RBC 3.65 m/uL (4.30-5.90); RDW 16.6 % (11.5-15.5); WBC 4.9 k/uL (3.8-10.6)
[2022-01-16 19:23] LABS: Albumin 4.1 g/dL (3.5-5.0); INR 0.9 (<1.2); Magnesium 1.9 mg/dL (1.6-2.3); Partial Thromboplastin Time 24.4 sec (22.0-30.0); Potassium 3.8 mmol/L (3.5-5.1); Prothrombin Time 10.1 sec (9.0-12.0); Total Bilirubin 0.5 mg/dL (0.2-1.3); Total Protein 7.3 g/dL (6.3-8.2)
--- NOTE | 2022-01-16 19:32 | CT ---
EXAMINATION TYPE: CT brain wo con CT DLP: 1099.4 mGycm, Automated exposure control for dose reduction was used. DATE OF EXAM: 01/16/2022 7:23 [address] Prior CT Brain from 08/21/2021. CLINICAL INDICATION:Male, 71 years old with history of syncope TECHNIQUE: Brain: Multiple axial CT images of the brain were obtained without IV contrast. FINDINGS: Brain: Extra-axial spaces: No abnormal extra-axial fluid collections. Ventricular system: Within normal limits Cerebral parenchyma: Hypodensities within the bilateral basal ganglia are unchanged from prior. No ac lb intraparenchymal hemorrhage or mass effect. The lazo-white junction is well differentiated. Scat tered hypoattenuating areas are seen within the white matter. Cerebellum: Unremarkable. Mass effect: No evidence of midline shift. Intracranial vasculature: Atherosclerotic calcifications of the intracranial vessels. Soft tissues: Normal. Calvarium/osseous structures: No depressed skull fracture. Paranasal sinuses and mastoid air cells: Mild scattered paranasal sinus disease. Visualized orbits: Bilateral aphakia IMPRESSION: 1. No acute intracranial process. 2. Remote lacunar injuries along with nonspecific white matter changes likely secondary to chronic mi croangiopathy.
--- NOTE | 2022-01-16 19:33 | XR ---
EXAMINATION TYPE: XR chest 2V DATE OF EXAM: 01/16/2022 7:14 PM COMPARISON:Chest radiographs from 08/21/2021 TECHNIQUE: XR chest 2V Frontal and lateral views of the chest. CLINICAL INDICATION:Male, 71 years old with history of syncope; FINDINGS: Lungs/Pleura: There is no evidence of pleural effusion, focal consolidation, or pneumothorax. Pulmonary vascularity: Unremarkable. Heart/mediastinum: Cardiomediastinal silhouette is prominent in size. Musculoskeletal: No acute osseous pathology. IMPRESSION: No acute cardiopulmonary disease/process.
[2022-01-16 20:42] LABS: Appearance,Urine Clear (Clear); Bilirubin,Urine Negative (Negative); Blood,Urine Negative (Negative); Color,Urine Yellow; Glucose,Urine (UA) Negative (Negative); Ketones,Urine Negative (Negative); Leukocyte Esterase,Urine Negative (Negative); Nitrite,Urine Negative (Negative); Protein,Urine Trace (Negative); Urobilinogen,Urine <2.0 mg/dL (<2.0)
--- NOTE | 2022-01-16 21:24 | ED ---
General Adult HPI - General Chief complaint: Fall Stated complaint: Fall Time Seen by Provider: 01/16/22 17:49 Source: EMS Mode of arrival: EMS Limitations: altered mental status - History of Present Illness Initial comments: Patient presents to the emergency department after syncopal episode. He did not hit his head. He has a history of stroke in the past with residual left-sided symptoms. He walks with a walker. He passed out today. He does not believe he sustained any new injuries. He has no chest or belly or back pain. He has no nausea or vomiting. He has taken no medication to help with his symptoms today. He wasn't doing anything specific when this occurred. - Related Data Home Medications Medication Instructions Recorded Confirmed Atorvastatin [Lipitor] 80 mg PO HS 05/26/17 01/16/22 Tamsulosin HCl [Flomax] 0.4 mg PO DAILY 05/26/17 01/16/22 Aspirin EC [Ecotrin Low Dose] 81 mg PO DAILY 02/12/18 01/16/22 calcitrioL [Calcitriol] 0.25 mcg PO SUTUTHSA 10/07/18 01/16/22 Mirabegron [Myrbetriq] 50 mg PO DAILY 05/17/19 01/16/22 Clopidogrel [Plavix] 75 mg PO DAILY 12/08/19 01/16/22 Cetirizine HCl [Zyrtec] 10 mg PO DAILY PRN 11/18/20 01/16/22 Famotidine [Pepcid] 20 mg PO BID 11/18/20 01/16/22 Sertraline HCl [Zoloft] 50 mg PO DAILY 11/18/20 01/16/22 Docusate [Colace] 100 mg PO DAILY PRN 08/21/21 01/16/22 amLODIPine [Norvasc] 2.5 mg PO DAILY 08/21/21 01/16/22 Midodrine HCl [ProAmantine] 2.5 mg PO DAILY 01/16/22 01/16/22 Allergies Allergy/AdvReac Type Severity Reaction Status Date / Time No Known Allergies Allergy Verified 01/16/22 20:42 Review of Systems ROS Statement: Those systems with pertinent positive or pertinent negative responses have been documented in the HPI. ROS Other: All systems not noted in ROS Statement are negative. Past Medical History Past Medical History: COPD, CVA/TIA, Eye Disorder, GERD/Reflux, Hyperlipidemia, Hypertension, Osteoarthritis (OA), Prostate Disorder, Renal Disease, Sleep Apnea/CPAP/BIPAP, Syncope Additional Past Medical History / Comment(s): pt is rt side dominant. hx ofMultiple TIAs, CVA 01/2017 with dysphagia-peg tube inserted and now out, has residual weakness lt arm/leg and some lt facial droop. chronic kidney disease BPH, Uti, ROSA has Cpap but does not tolerate it no longer using it, gastric ulcer, soniya eye cataracts, past hxR foot 3rd toe osteomylitis, arthritis multiple joints, past gastric ulcer, past hx shingels. Loop recorder removed 12/30/21. History of Any Multi-Drug Resistant Organisms: None Reported Past Surgical History: Hernia Repair, Joint Replacement Additional Past Surgical History / Comment(s): 06/01/17 intracranial angioplasty- (pt stated "he has stents') HFH, EGD with peg tube insertion since removed, R inguinal hernia repair, R total knee arthroplasty, colonoscopies with last one in 2019-normal., soniya eye cat sx Past Anesthesia/Blood Transfusion Reactions: No Reported Reaction Past Psychological History: No Psychological Hx Reported Smoking Status: Former smoker Past Alcohol Use History: None Reported Past Drug Use History: None Reported - Past Family History Mother Family Medical History: CVA/TIA, Diabetes Mellitus, Hyperlipidemia, Hypertension Father Family Medical History: CVA/TIA, Hypertension General Exam Limitations: altered mental status General appearance: alert, in no apparent distress Head exam: Present: atraumatic, normocephalic, normal inspection Eye exam: Present: normal appearance, PERRL, EOMI. Absent: scleral icterus, conjunctival injection, periorbital swelling ENT exam: Present: normal exam, mucous membranes moist Neck exam: Present: normal inspection. Absent: tenderness, meningismus, lymphadenopathy Respiratory exam: Present: normal lung sounds bilaterally. Absent: respiratory distress, wheezes, rales, rhonchi, stridor Cardiovascular Exam: Present: regular rate, normal rhythm, normal heart sounds. Absent: systolic murmur, diastolic murmur, rubs, gallop, clicks GI/Abdominal exam: Present: soft, normal bowel sounds. Absent: distended, tenderness, guarding, rebound, rigid Extremities exam: Present: normal inspection, full ROM, normal capillary refill. Absent: tenderness, pedal edema, joint swelling, calf tenderness Back exam: Present: normal inspection Neurological exam: Present: alert, oriented X3, CN II-XII intact Psychiatric exam: Present: normal affect, normal mood, other (Residual left- sided deficits from previous stroke) Skin exam: Present: warm, dry, intact, normal color. Absent: rash Course Vital Signs 01/16/22 01/16/22 17:34 19:27 Temperature 97.3 F L Pulse Rate 60 64 Respiratory 18 16 Rate Blood Pressure 160/84 166/97 O2 Sat by Pulse 99 100 Oximetry EKG Findings - EKG Comments: EKG Findings:: Twelve-lead EKG shows ventricular rate 59 bpm, normal NM interval and QRS complexes, no ST elevation or depression, interpreted by me as sinus bradycardia. Medical Decision Making - Medical Decision Making Patient presents after syncopal episode. His creatinine is up a little bit. I gave him IV fluids. He will be admitted for observation. - Lab Data Result diagrams: 01/16/22 18:38 01/16/22 18:38 Lab Results 01/16/22 01/16/22 01/16/22 Range/Units 18:38 18:38 18:38 WBC 4.9 (3.8-10.6) k/uL RBC 3.65 L (4.30-5.90) m/uL Hgb 11.6 L (13.0-17.5) gm/dL Hct 35.5 L (39.0-53.0) % MCV 97.3 (80.0-100.0) fL MCH 31.6 (25.0-35.0) pg MCHC 32.5 (31.0-37.0) g/dL RDW 16.6 H (11.5-15.5) % Plt Count 277 (150-450) k/uL MPV 7.4 Neutrophils % 67 % Lymphocytes % 23 % Monocytes % 5 % Eosinophils % 2 % Basophils % 0 % Neutrophils # 3.3 (1.3-7.7) k/uL Lymphocytes # 1.1 (1.0-4.8) k/uL Monocytes # 0.3 (0-1.0) k/uL Eosinophils # 0.1 (0-0.7) k/uL Basophils # 0.0 (0-0.2) k/uL Hypochromasia Slight Anisocytosis Slight PT 10.1 (9.0-12.0) sec INR 0.9 (<1.2) APTT 24.4 (22.0-30.0) sec Sodium 137 (137-145) mmol/L Potassium 3.8 (3.5-5.1) mmol/L Chloride 103 (98-107) mmol/L Carbon Dioxide 26 (22-30) mmol/L Anion Gap 8 mmol/L BUN 20 (9-20) mg/dL Creatinine 1.34 H (0.66-1.25) mg/dL Est GFR (CKD-EPI)AfAm 61 (>60 ml/min/1.73 sqM) Est GFR (CKD-EPI)NonAf 53 (>60 ml/min/1.73 sqM) Glucose 117 H (74-99) mg/dL Calcium 9.0 (8.4-10.2) mg/dL Magnesium 1.9 (1.6-2.3) mg/dL Total Bilirubin 0.5 (0.2-1.3) mg/dL AST 28 (17-59) U/L ALT 25 (4-49) U/L Alkaline Phosphatase 102 (38-126) U/L Troponin I (0.000-0.034) ng/mL Total Protein 7.3 (6.3-8.2) g/dL Albumin 4.1 (3.5-5.0) g/dL Urine Color Urine Appearance (Clear) Urine pH (5.0-8.0) Ur Specific [place] (1.001-1.035) Urine Protein (Negative) Urine Glucose (UA) (Negative) Urine Ketones (Negative) Urine Blood (Negative) Urine Nitrite (Negative) Urine Bilirubin (Negative) Urine Urobilinogen (<2.0) mg/dL Ur Leukocyte Esterase (Negative) 01/16/22 01/16/22 Range/Units 18:38 20:28 WBC (3.8-10.6) k/uL RBC (4.30-5.90) m/uL Hgb (13.0-17.5) gm/dL Hct (39.0-53.0) % MCV (80.0-100.0) fL MCH (25.0-35.0) pg MCHC (31.0-37.0) g/dL RDW (11.5-15.5) % Plt Count (150-450) k/uL MPV Neutrophils % % Lymphocytes % % Monocytes % % Eosinophils % % Basophils % % Neutrophils # (1.3-7.7) k/uL Lymphocytes # (1.0-4.8) k/uL Monocytes # (0-1.0) k/uL Eosinophils # (0-0.7) k/uL Basophils # (0-0.2) k/uL Hypochromasia Anisocytosis PT (9.0-12.0) sec INR (<1.2) APTT (22.0-30.0) sec Sodium (137-145) mmol/L Potassium (3.5-5.1) mmol/L Chloride (98-107) mmol/L Carbon Dioxide (22-30) mmol/L Anion Gap mmol/L BUN (9-20) mg/dL Creatinine (0.66-1.25) mg/dL Est GFR (CKD-EPI)AfAm (>60 ml/min/1.73 sqM) Est GFR (CKD-EPI)NonAf (>60 ml/min/1.73 sqM) Glucose (74-99) mg/dL Calcium (8.4-10.2) mg/dL Magnesium (1.6-2.3) mg/dL Total Bilirubin (0.2-1.3) mg/dL AST (17-59) U/L ALT (4-49) U/L Alkaline Phosphatase (38-126) U/L Troponin I <0.012 (0.000-0.034) ng/mL Total Protein (6.3-8.2) g/dL Albumin (3.5-5.0) g/dL Urine Color Yellow Urine Appearance Clear (Clear) Urine pH 7.0 (5.0-8.0) Ur Specific [place] 1.020 (1.001-1.035) Urine Protein Trace H (Negative) Urine Glucose (UA) Negative (Negative) Urine Ketones Negative (Negative) Urine Blood Negative (Negative) Urine Nitrite Negative (Negative) Urine Bilirubin Negative (Negative) Urine Urobilinogen <2.0 (<2.0) mg/dL Ur Leukocyte Esterase Negative (Negative) Disposition Clinical Impression: Syncope Disposition: ADMITTED IP TO THIS HOSP Condition: Fair Is patient prescribed a controlled substance at d/c from ED?: No Referrals: Rick Luke MD [Primary Care Provider] - 1-2 days
[2022-01-16] MEDS ORDERED: NALOXONE 0.4 MG/ML 1 ML VIAL IV PRN (23:40)
[2022-01-16] MEDS ORDERED: DOCUSATE 100 MG CAP PO PRN (23:41)
--- NOTE | 2022-01-16 23:42 | P.HPIM ---
History of Present Illness H&P Date: 01/16/22 Patient is a 71-year-old male with a PMH of CVA status post left residual weakness, hypertension, chronic kidney disease stage III, BPH, hyperlipidemia and GERD, who presents to the emergency room after near syncopal episode with fall at home. Patient reports that he was in his usual state of health and had walked to his fridge to grab water, and as he walked back to his chair, he felt lightheaded and fell to the ground, hitting the back of his head. He denied losing consciousness. Also denied a prodrome of chest discomfort, palpitations, focal weakness, visual disturbances, tongue bite, shaking movements, or nausea. The patient's vitals upon presentation to the emergency room were BP 160/84, pulse 60, respiratory rate 18, SpO2 99% on room air, T-max 97.3F. CT brain and chest x-ray were unremarkable. Laboratory evaluation revealed a creatinine 1.34, similar to baseline with unremarkable UA. EKG reveals sinus bradycardia at 59 bpm with LVH. 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 The patient reports continued use of Midodrine daily at home. Review of systems: Pertinent positives and negatives as discussed in HPI, a complete review of systems was performed and all other systems are negative. Physical examination: General: non toxic, no distress, appears at stated age, overweight Derm: no unusual rashes/lesions no unusual ecchymoses, warm, dry Head: atraumatic, normocephalic, symmetric Eyes: EOMI, no lid lag, anicteric sclera, pupils equal round reactive to light ENT: Nose and ears atraumatic, no thrush, no pharyngeal erythema Neck: No thyromegaly, no cervical lymphadenopathy, trachea midline, supple Mouth: no lip lesion, mucus membranes moist Cardiovascular: S1S2 reg, no murmur, positive posterior tibial pulse bilateral, no edema, capillary refill less than 2 seconds Lungs: CTA bilateral, no rhonchi, no rales , no accessory muscle use Abdominal: soft, nontender to palpation, no guarding, no appreciable organomegaly, normal bowel sounds Ext: no gross muscle atrophy, muscle strength 5 out of 5 in all 4 extremities grossly, no contractures, Neuro: CN II-XI grossly intact, light touch intact all 4 extremities, finger to nose within normal limits, Psych: Alert, oriented, appropriate affect Assessment/plan Near syncope, fall -No signs or symptoms to suspect seizure -Obtain orthostatic vital signs -Cardiac monitoring -Echocardiogram from 10/2020 revealed moderate LVH with LVEF 55-60% and no s ignificant valvular abnormalities Chronic conditions: CVA, hypertension, chronic kidney disease, hyperlipidemia, GERD, BPH -Continue with home meds DVT prophylaxis -Heparin subcu The patient is admitted with an anticipated less than 2 midnight stay for evaluation of near syncope CODE STATUS: Full Code Discussed with: Patient Anticipated discharge date: in am Anticipated discharge place: Home Past Medical History Past Medical History: COPD, CVA/TIA, Eye Disorder, GERD/Reflux, Hyperlipidemia, Hypertension, Osteoarthritis (OA), Prostate Disorder, Renal Disease, Sleep Apnea/CPAP/BIPAP, Syncope Additional Past Medical History / Comment(s): pt is rt side dominant. hx ofMultiple TIAs, CVA 01/2017 with dysphagia-peg tube inserted and now out, has residual weakness lt arm/leg and some lt facial droop. chronic kidney disease BPH, Uti, ROSA has Cpap but does not tolerate it no longer using it, gastric ulcer, soniya eye cataracts, past hxR foot 3rd toe osteomylitis, arthritis multiple joints, past gastric ulcer, past hx shingels. Loop recorder removed 12/30/21. History of Any Multi-Drug Resistant Organisms: None Reported Past Surgical History: Hernia Repair, Joint Replacement Additional Past Surgical History / Comment(s): 06/01/17 intracranial angioplasty- (pt stated "he has stents') HFH, EGD with peg tube insertion since removed, R inguinal hernia repair, R total knee arthroplasty, colonoscopies with last one in 2019-normal., soniya eye cat sx Past Anesthesia/Blood Transfusion Reactions: No Reported Reaction Past Psychological History: No Psychological Hx Reported Smoking Status: Former smoker Past Alcohol Use History: None Reported Past Drug Use History: None Reported - Past Family History Mother Family Medical History: CVA/TIA, Diabetes Mellitus, Hyperlipidemia, Hypertension Father Family Medical History: CVA/TIA, Hypertension Medications and Allergies Home Medications Medication Instructions Recorded Confirmed Type Atorvastatin [Lipitor] 80 mg PO HS 05/26/17 01/16/22 History Tamsulosin HCl [Flomax] 0.4 mg PO DAILY 05/26/17 01/16/22 History Aspirin EC [Ecotrin Low Dose] 81 mg PO DAILY 02/12/18 01/16/22 History calcitrioL [Calcitriol] 0.25 mcg PO SUTUTHSA 10/07/18 01/16/22 History Mirabegron [Myrbetriq] 50 mg PO DAILY 05/17/19 01/16/22 History Clopidogrel [Plavix] 75 mg PO DAILY 12/08/19 01/16/22 History Cetirizine HCl [Zyrtec] 10 mg PO DAILY PRN 11/18/20 01/16/22 History Famotidine [Pepcid] 20 mg PO BID 11/18/20 01/16/22 History Sertraline HCl [Zoloft] 50 mg PO DAILY 11/18/20 01/16/22 History Docusate [Colace] 100 mg PO DAILY PRN 08/21/21 01/16/22 History amLODIPine [Norvasc] 2.5 mg PO DAILY 08/21/21 01/16/22 History Midodrine HCl [ProAmantine] 2.5 mg PO DAILY 01/16/22 01/16/22 History Allergies Allergy/AdvReac Type Severity Reaction Status Date / Time No Known Allergies Allergy Verified 01/16/22 20:42 Physical Exam Vitals: Vital Signs Temp Pulse Resp BP Pulse Ox 01/16/22 21:59 75 16 176/100 100 01/16/22 19:27 64 16 166/97 100 01/16/22 17:34 97.3 F L 60 18 160/84 99 Intake and Output 01/16/22 01/16/22 01/17/22 14:59 22:59 06:59 Other: Weight 91.626 kg Results CBC & Chem 7: 01/16/22 18:38 01/16/22 18:38 Labs: Abnormal Lab Results - Last 24 Hours (Table) 01/16/22 01/16/22 01/16/22 Range/Units 18:38 18:38 20:28 RBC 3.65 L (4.30-5.90) m/uL Hgb 11.6 L (13.0-17.5) gm/dL Hct 35.5 L (39.0-53.0) % RDW 16.6 H (11.5-15.5) % Creatinine 1.34 H (0.66-1.25) mg/dL Glucose 117 H (74-99) mg/dL Urine Protein Trace H (Negative)
[2022-01-17] MEDS: HEPARIN SODIUM,PORCINE/PF 5,000 UNIT/0.5 ML SYRINGE SQ SCH ×3 (01:33→16:34)
[2022-01-17 08:29] VITALS: RESP 17
[2022-01-17] MEDS ORDERED: SERTRALINE 50 MG TAB PO SCH (09:00)
[2022-01-17] MEDS ORDERED: amLODIPine 2.5 MG TAB PO SCH (09:00)
[2022-01-17] MEDS ORDERED: CLOPIDOGREL 75 MG TAB PO SCH (09:00)
[2022-01-17] MEDS ORDERED: TAMSULOSIN 0.4 MG CAP.ER.24H PO SCH (09:00)
[2022-01-17] MEDS ORDERED: ASPIRIN 81 MG PO SCH (09:00)
[2022-01-17] MEDS ORDERED: MIDODRINE 5 MG TAB PO SCH (09:00)
[2022-01-17] MEDS ORDERED: FAMOTIDINE 20 MG TAB PO SCH (09:00)
--- NOTE | 2022-01-17 14:13 | P.DS ---
Providers Date of admission: 01/16/22 21:25 Expected date of discharge: 01/17/22 Attending physician: Camden Mckeon MD Primary care physician: Rick Luke Hospital Course: Discharge Diagnosis: Lightheadedness with Near syncope, Flomax discontinued secondary to possibility of adverse reactions causing dizziness and syncopal episodes. Patient educated on the importance of changing positions slowly, keeping himself hydrated, and ambulating with walker at all times. History of CVA with left-sided residual deficit Hypertension Stage III chronic kidney disease BPH Hyperlipidemia GERD Hospital Course: Patient is a 71-year-old male with a PMH of CVA status post left residual weakness, hypertension, chronic kidney disease stage III, BPH, hyperlipidemia and GERD, who presents to the emergency room after near syncopal episode with fall at home. Patient reports upon standing to walk to his refrigerator he fell back into his chair because he felt lightheaded and dizzy. Patient and his at bedside reports he has experienced these symptoms multiple times over the past 5 years and has been fully worked up by cardiology and neurology and states no one can find anything causing these symptoms. Patient states these episodes happen a few times a year and about with no warning. He denied hitting his head or experiencing any injuries and reports full resolution of symptoms upon arrival to the hospital. He was seen and fully evaluated in the emergency department, he underwent a CT brain which was negative for acute intercranial process. Chest x-ray negative for acute cardiopulmonary process. EKG showing sinus bradycardia at 59 bpm with no noted T wave ST abnormalities. CBC and CMP showing no significant abnormalities. Troponin negative at less than 0.012. Urinalysis negative for infection. Patient was admitted under our services and monitored overnight. Patient reports continued resolution of symptoms and continues to deny having any headache, lightheadedness, dizziness, chest pain, palpitations, shortness of breath, or experiencing any numbness/tingling/weakness in his extremities. He was seen and evaluated by physical therapy and ambulated up and down the halls with walker without any noted difficulties. Orthostatic vitals completed and negative for orthostatic hypotension. Left lower extremity Doppler completed secondary to findings of left lower extremity edema and was negative for DVT. Flomax discontinued as this can cause dizziness and syncopal episodes secondary to patient's history of recurrent syncopal episode, this may be underlying cause. Patient and his also educated on midodrine and that this medication should only be administered for hypotensive episodes and which systolic pressure is less than 100. Patient and verbalized understanding. Patient medically stable for discharge at this time and being discharged home with [facility] services at this time. Physical examination: Vital signs reviewed and stable. General: Nontoxic, no distress and appears stated age. Derm: Skin warm and dry, normal coloration for ethnicity. Head: Atraumatic, normocephalic and symmetric. Eyes: EOMs intact, no lid lag, and anicteric sclera Mouth: no lip lesions, mucus membranes moist Cardiovascular: regular rate and rhythm with normal S1S2, no murmur, positive posterior tibial pulses bilaterally, and cap refill < 2 seconds. Lungs: Respirations even, regular, and unlabored on room air. Lungs CTA bilaterally, no rhonchi, no rales, no wheezing, and no accessory muscle usage. Abdominal: soft, nontender to palpation, no guarding, no appreciable organomegaly Ext: Movement and sensation intact... No gross muscle atrophy, patient reports slight weakness and left lower extremity residual deficit from previous CVA and was found to have 1+ pitting edema left lower extremity no edema right lower extremity, no contractures Neuro: Speech clear, face symmetrical and CN II-XII grossly intact with no noted focal neuro deficits Psych: Alert and oriented to person, place, time, and situation. Appropriate and pleasant affect. A total of 40 minutes of time were spent preparing this complex discharge summary. Patient Condition at Discharge: Stable Plan - Discharge Summary Discharge Rx Participant: No New Discharge Prescriptions: Continue Atorvastatin [Lipitor] 80 mg PO HS Aspirin EC [Ecotrin Low Dose] 81 mg PO DAILY calcitrioL [Calcitriol] 0.25 mcg PO [facility] Mirabegron [Myrbetriq] 50 mg PO DAILY Clopidogrel [Plavix] 75 mg PO DAILY Sertraline HCl [Zoloft] 50 mg PO DAILY Cetirizine HCl [Zyrtec] 10 mg PO DAILY PRN PRN Reason: Allergy Symptoms Famotidine [Pepcid] 20 mg PO BID amLODIPine [Norvasc] 2.5 mg PO DAILY Docusate [Colace] 100 mg PO DAILY PRN PRN Reason: Constipation Midodrine HCl [ProAmantine] 2.5 mg PO DAILY #0 Discontinued Tamsulosin HCl [Flomax] 0.4 mg PO DAILY Discharge Medication List Atorvastatin [Lipitor] 80 mg PO HS 05/26/17 [History] Aspirin EC [Ecotrin Low Dose] 81 mg PO DAILY 02/12/18 [History] calcitrioL [Calcitriol] 0.25 mcg PO SUTUTHSA 10/07/18 [History] Mirabegron [Myrbetriq] 50 mg PO DAILY 05/17/19 [History] Clopidogrel [Plavix] 75 mg PO DAILY 12/08/19 [History] Cetirizine HCl [Zyrtec] 10 mg PO DAILY PRN 11/18/20 [History] Famotidine [Pepcid] 20 mg PO BID 11/18/20 [History] Sertraline HCl [Zoloft] 50 mg PO DAILY 11/18/20 [History] Docusate [Colace] 100 mg PO DAILY PRN 08/21/21 [History] amLODIPine [Norvasc] 2.5 mg PO DAILY 08/21/21 [History] Midodrine HCl [ProAmantine] 2.5 mg PO DAILY #0 01/17/22 [Rx] Follow up Appointment(s)/Referral(s): Abena Jacobo MD [STAFF PHYSICIAN] - 1 Week Rick Luke MD [Primary Care Provider] - 1-2 days [facility], [NON-STAFF] - 1 Week Activity/Diet/Wound Care/Special Instructions: Activity: As tolerated. Take breaks as needed. Ambulate with walker. Please remember as we discussed change positions slowly. Diet: Heart healthy and carb consistent diet. Avoid salts, or foods with hidden salts such as canned or boxed foods and frozen dinners. Extra salt makes your heart work harder and traps the fluid in your body for longer. Special Instructions: Take all of your medications as directed and remember to keep all of your doctor's appointments and follow-up as needed. I have discontinued his Flomax as this can cause dizziness and recurrent episod es of near-syncope/syncope. If you develop difficulties with urination it would be of utmost importance to call and schedule an appointment with your urologist for alternative medication therapy. You're being discharged home with [facility] services where you will receive continued physical therapy. It is important to keep yourself hydrated and drink plenty of water. Thank you for allowing us to participate in your care, it was truly a pleasure having you for our patient!!! Discharge Disposition: HOME WITH HOME HEALTH SERVICES
[2022-01-17 16:13] VITALS: BP 165/78; PULSE 86; TEMP 98.1
--- NOTE | 2022-01-17 16:48 | US ---
EXAMINATION TYPE: US venous doppler duplex LE LT DATE OF EXAM: 01/17/2022 4:23 PM COMPARISON: NONE CLINICAL HISTORY: r/o DVT. Pain and swelling. Patient not taking blood thinners. SIDE PERFORMED: Left TECHNIQUE: The lower extremity deep venous system is examined utilizing real time linear array sonog larissa with graded compression, doppler sonography and color-flow sonography. VESSELS IMAGED: Common Femoral Vein Deep Femoral Vein Greater Saphenous Vein * Femoral Vein Popliteal Vein Small Saphenous Vein * Proximal Calf Veins (* superficial vessels) Left Leg: No evidence of DVT in veins imaged at this time. IMPRESSION: No evidence of DVT of the left lower extremity.
[2022-01-17] MEDS ORDERED: ATORVASTATIN 80 MG TAB PO SCH (21:00)
== END 2022-01-17 19:59 | disposition home health service (06) ==
LOC: EC 17:28 → 6NMEDSUR 21:25
PROVIDERS: ADMIT Internal Medicine; ATTEND Internal Medicine
DX: R55 Syncope and collapse (principal); I69.354 Hemiplegia and hemiparesis following cerebral infarction affecting left non-dominant side; I69.392 Facial weakness following cerebral infarction; I12.9 Hypertensive chronic kidney disease with stage 1 through stage 4 chronic kidney disease, or unspecified chronic kidney disease; N18.30 Chronic kidney disease, stage 3 unspecified; N40.0 Benign prostatic hyperplasia without lower urinary tract symptoms; E78.5 Hyperlipidemia, unspecified; K21.9 Gastro-esophageal reflux disease without esophagitis; J44.9 Chronic obstructive pulmonary disease, unspecified; G47.33 Obstructive sleep apnea (adult) (pediatric); M13.0 Polyarthritis, unspecified; R00.1 Bradycardia, unspecified; E66.3 Overweight; Z68.25 Body mass index [BMI] 25.0-25.9, adult; Z87.440 Personal history of urinary (tract) infections; Z87.11 Personal history of peptic ulcer disease; Z86.19 Personal history of other infectious and parasitic diseases; Z87.891 Personal history of nicotine dependence; Z96.651 Presence of right artificial knee joint; W19.XXXA Unspecified fall, initial encounter; Z79.899 Other long term (current) drug therapy; Z79.02 Long term (current) use of antithrombotics/antiplatelets; Z79.82 Long term (current) use of aspirin; Z83.3 Family history of diabetes mellitus; Z82.49 Family history of ischemic heart disease and other diseases of the circulatory system; Z82.3 Family history of stroke; Y92.009 Unspecified place in unspecified non-institutional (private) residence as the place of occurrence of the external cause; Z71.9 Counseling, unspecified
CPT/HCPCS: 96372 ×2; 96360; 99285; 36415; 93005; 97162; 97535; 97166; 80053; 83735; 84484; 85025; 85610; 85730; 81003; 71046; 93971; 70450; G0378 ×2; J1644

== ENCOUNTER 2022-03-26 17:27 | Emergency (ER) | payer MEDICARE, OTHER ==
[2022-03-26 17:32] VITALS: TEMP 97.2
--- NOTE | 2022-03-26 17:48 | ED ---
SOB HPI - General Chief Complaint: Shortness of Breath Stated Complaint: SOB Time Seen by Provider: 03/26/22 17:46 Source: patient, EMS Mode of arrival: EMS Limitations: no limitations - History of Present Illness Initial Comments: Abram a pleasant 71-year-old woman who presented to the emergency department today via ambulance for evaluation of shortness of breath. Patient reports he was home alone and he just felt like he needed to get some air hit his life alert. Upon arrival EMS reports patient was awake alert oriented in no acute distress. They provided supplemental oxygen for comfort and patient reports feeling much better upon arrival in the emergency department. Patient's family was camping for the weekend he was home alone, daughter states that she had opened his window but not started the air conditioning it was exceptionally hot today. She believes it got up to 83 in the home. Patient's feeling much better now that is out of the home. Daughter states she feels comfortable taking him home she will ensure that the air conditioning is on and is more comfortable. - Related Data Home Medications Medication Instructions Recorded Confirmed Atorvastatin [Lipitor] 80 mg PO HS 05/26/17 01/16/22 Aspirin EC [Ecotrin Low Dose] 81 mg PO DAILY 02/12/18 01/16/22 calcitrioL [Calcitriol] 0.25 mcg PO SUTUTHSA 10/07/18 01/16/22 Mirabegron [Myrbetriq] 50 mg PO DAILY 05/17/19 01/16/22 Clopidogrel [Plavix] 75 mg PO DAILY 12/08/19 01/16/22 Cetirizine HCl [Zyrtec] 10 mg PO DAILY PRN 11/18/20 01/16/22 Famotidine [Pepcid] 20 mg PO BID 11/18/20 01/16/22 Sertraline HCl [Zoloft] 50 mg PO DAILY 11/18/20 01/16/22 Docusate [Colace] 100 mg PO DAILY PRN 08/21/21 01/16/22 amLODIPine [Norvasc] 2.5 mg PO DAILY 08/21/21 01/16/22 Previous Rx's Medication Instructions Recorded Midodrine HCl [ProAmantine] 2.5 mg PO DAILY #0 01/17/22 Allergies Allergy/AdvReac Type Severity Reaction Status Date / Time No Known Allergies Allergy Verified 03/26/22 17:32 Review of Systems ROS Statement: Those systems with pertinent positive or pertinent negative responses have been documented in the HPI. ROS Other: All systems not noted in ROS Statement are negative. 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 Loop recorder removed 12/30/21. History of Any Multi-Drug Resistant Organisms: None Reported Past Surgical History: Hernia Repair, Joint Replacement Additional Past Surgical History / Comment(s): 06/01/17 intracranial angioplasty- (pt stated "he has stents') HFH, EGD with peg tube insertion since removed, R inguinal hernia repair, R total knee arthroplasty, colonoscopies with last one in 2019-normal., soniya eye cat sx, loop recorder since removed. Past Anesthesia/Blood Transfusion Reactions: No Reported Reaction Past Psychological History: No Psychological Hx Reported Smoking Status: Former smoker Past Alcohol Use History: None Reported Past Drug Use History: None Reported - Past Family History Mother Family Medical History: CVA/TIA, Diabetes Mellitus, Hyperlipidemia, Hypertension Father Family Medical History: CVA/TIA, Hypertension General Exam - General Exam Comments Initial Comments: Physical Exam GENERAL: Patient is well-developed and well-nourished. Patient is nontoxic and well- hydrated and is in no distress. HENT: Normocephalic, Atraumatic. EYES: PERRL, EOMI PULMONARY: Unlabored respirations. No audible rales rhonchi or wheezing was noted. CARDIOVASCULAR: There is a regular rate and rhythm without any murmurs gallops or rubs. No lower extremity edema ABDOMEN: Soft and nontender with normal bowel sounds. SKIN: Skin is clear with no lesions or rashes and otherwise unremarkable. : Deferred NEUROLOGIC: Patient is alert and oriented x3. Moving all extremities spontaneously MUSCULOSKELETAL: Normal extremities with adequate strength and full range of motion. No lower extremity swelling or edema. No calf tenderness. PSYCHIATRIC: Normal psychiatric evaluation. Limitations: no limitations Course Vital Signs 03/26/22 03/26/22 03/26/22 17:30 17:43 17:47 Temperature 97.2 F L Pulse Rate 156 H 67 Respiratory 18 25 H Rate Blood Pressure 172/92 O2 Sat by Pulse 100 Oximetry 03/26/22 18:32 Temperature Pulse Rate 67 Respiratory 16 Rate Blood Pressure 162/93 O2 Sat by Pulse 97 Oximetry Medical Decision Making - Medical Decision Making Patient was seen and evaluated, labs and chest x-ray were obtained and were unremarkable Patient was reevaluated he is resting comfortably no hypoxia in the ER Of note there was a erroneous vital sign documentation with a heart rate of 156, patient's heart rate remained in the 60s throughout his stay in the ER Disposition was discussed the patient him and daughter are comfortable plan for discharge home. I do believe his subjective shortness of breath was environmental daughter and agreement with this. - Lab Data Result diagrams: 03/26/22 17:58 03/26/22 17:55 Lab Results 03/26/22 03/26/22 03/26/22 Range/Units 17:55 17:55 17:55 WBC (3.8-10.6) k/uL RBC (4.30-5.90) m/uL Hgb (13.0-17.5) gm/dL Hct (39.0-53.0) % MCV (80.0-100.0) fL MCH (25.0-35.0) pg MCHC (31.0-37.0) g/dL RDW (11.5-15.5) % Plt Count (150-450) k/uL MPV Neutrophils % % Lymphocytes % % Monocytes % % Eosinophils % % Basophils % % Neutrophils # (1.3-7.7) k/uL Lymphocytes # (1.0-4.8) k/uL Monocytes # (0-1.0) k/uL Eosinophils # (0-0.7) k/uL Basophils # (0-0.2) k/uL Anisocytosis PT 10.1 (9.0-12.0) sec INR 0.9 (<1.2) APTT 22.8 (22.0-30.0) sec Sodium 137 (137-145) mmol/L Potassium 3.8 (3.5-5.1) mmol/L Chloride 104 (98-107) mmol/L Carbon Dioxide 27 (22-30) mmol/L Anion Gap 6 mmol/L BUN 18 (9-20) mg/dL Creatinine 1.32 H (0.66-1.25) mg/dL Est GFR (CKD-EPI)AfAm 62 (>60 ml/min/1.73 sqM) Est GFR (CKD-EPI)NonAf 54 (>60 ml/min/1.73 sqM) Glucose 117 H (74-99) mg/dL Plasma Lactic Acid Del (0.7-2.0) mmol/L Calcium 8.7 (8.4-10.2) mg/dL Magnesium 1.9 (1.6-2.3) mg/dL Total Bilirubin 0.4 (0.2-1.3) mg/dL AST 24 (17-59) U/L ALT 23 (4-49) U/L Alkaline Phosphatase 102 (38-126) U/L Troponin I <0.012 (0.000-0.034) ng/mL NT-Pro-B Natriuret Pep pg/mL Total Protein 7.0 (6.3-8.2) g/dL Albumin 4.0 (3.5-5.0) g/dL 03/26/22 03/26/22 03/26/22 Range/Units 17:55 17:58 17:58 WBC 4.9 (3.8-10.6) k/uL RBC 3.72 L (4.30-5.90) m/uL Hgb 11.2 L (13.0-17.5) gm/dL Hct 36.1 L (39.0-53.0) % MCV 97.0 (80.0-100.0) fL MCH 30.2 (25.0-35.0) pg MCHC 31.2 (31.0-37.0) g/dL RDW 16.7 H (11.5-15.5) % Plt Count 293 (150-450) k/uL MPV 7.2 Neutrophils % 56 % Lymphocytes % 30 % Monocytes % 7 % Eosinophils % 4 % Basophils % 1 % Neutrophils # 2.8 (1.3-7.7) k/uL Lymphocytes # 1.5 (1.0-4.8) k/uL Monocytes # 0.3 (0-1.0) k/uL Eosinophils # 0.2 (0-0.7) k/uL Basophils # 0.1 (0-0.2) k/uL Anisocytosis Slight PT (9.0-12.0) sec INR (<1.2) APTT (22.0-30.0) sec Sodium (137-145) mmol/L Potassium (3.5-5.1) mmol/L Chloride (98-107) mmol/L Carbon Dioxide (22-30) mmol/L Anion Gap mmol/L BUN (9-20) mg/dL Creatinine (0.66-1.25) mg/dL Est GFR (CKD-EPI)AfAm (>60 ml/min/1.73 sqM) Est GFR (CKD-EPI)NonAf (>60 ml/min/1.73 sqM) Glucose (74-99) mg/dL Plasma Lactic Acid Del 1.2 (0.7-2.0) mmol/L Calcium (8.4-10.2) mg/dL Magnesium (1.6-2.3) mg/dL Total Bilirubin (0.2-1.3) mg/dL AST (17-59) U/L ALT (4-49) U/L Alkaline Phosphatase (38-126) U/L Troponin I (0.000-0.034) ng/mL NT-Pro-B Natriuret Pep 104 pg/mL Total Protein (6.3-8.2) g/dL Albumin (3.5-5.0) g/dL - EKG Data -: EKG Interpreted by Ms EKG shows normal: sinus rhythm EKG Comments: EKG was obtained at 1743 rate is 65 and a sinus leftward axis normal intervals and no acute ST elevations or depressions no evidence of ischemia or infarction. Disposition Clinical Impression: Shortness of breath Disposition: HOME SELF-CARE Condition: Stable Instructions (If sedation given, give patient instructions): Bronchospasm (ED) Is patient prescribed a controlled substance at d/c from ED?: No Referrals: Rick Luke MD [Primary Care Provider] - 1-2 days
[2022-03-26 17:50] VITALS: PULSE 67
[2022-03-26 18:09] LABS: Anisocytosis Slight; Basophils # (A) 0.1 k/uL (0-0.2); Basophils % (A) 1 %; Eosinophils # (A) 0.2 k/uL (0-0.7); Eosinophils % (A) 4 %; HCT 36.1 % (39.0-53.0); HGB 11.2 gm/dL (13.0-17.5); Lymphocytes # (A) 1.5 k/uL (1.0-4.8); Lymphocytes % (A) 30 %; MCH 30.2 pg (25.0-35.0); MCHC 31.2 g/dL (31.0-37.0); Mean Platelet Volume 7.2; Monocytes # (A) 0.3 k/uL (0-1.0); Monocytes % (A) 7 %; Neutrophils # (A) 2.8 k/uL (1.3-7.7); Neutrophils % (A) 56 %; Platelet Count 293 k/uL (150-450); RBC 3.72 m/uL (4.30-5.90); RDW 16.7 % (11.5-15.5); WBC 4.9 k/uL (3.8-10.6)
[2022-03-26 18:15] LABS: INR 0.9 (<1.2); Partial Thromboplastin Time 22.8 sec (22.0-30.0); Prothrombin Time 10.1 sec (9.0-12.0)
[2022-03-26 18:17] LABS: Calcium 8.7 mg/dL (8.4-10.2); Magnesium 1.9 mg/dL (1.6-2.3); Potassium 3.8 mmol/L (3.5-5.1); Total Bilirubin 0.4 mg/dL (0.2-1.3)
--- NOTE | 2022-03-26 18:56 | XR ---
EXAMINATION TYPE: XR chest 2V DATE OF EXAM: 03/26/2022 COMPARISON: 01/16/2022 HISTORY: Short of breath TECHNIQUE: FINDINGS: Heart is normal. Lungs are clear of consolidation. There is no heart failure. There are no hilar masses. There are chest leads. Bony thorax appears intact. IMPRESSION: No active cardiopulmonary disease. No change.
[2022-03-26 20:51] VITALS: BP 144/69; RESP 18
== END 2022-03-26 21:00 | disposition home or self-care (01) ==
LOC: EC 17:27
DX: R06.02 Shortness of breath (principal); E78.5 Hyperlipidemia, unspecified; I12.9 Hypertensive chronic kidney disease with stage 1 through stage 4 chronic kidney disease, or unspecified chronic kidney disease; N18.30 Chronic kidney disease, stage 3 unspecified; J44.9 Chronic obstructive pulmonary disease, unspecified; K21.9 Gastro-esophageal reflux disease without esophagitis; M19.90 Unspecified osteoarthritis, unspecified site; Z79.02 Long term (current) use of antithrombotics/antiplatelets; Z79.82 Long term (current) use of aspirin; Z86.73 Personal history of transient ischemic attack (TIA), and cerebral infarction without residual deficits; Z87.891 Personal history of nicotine dependence; Z79.899 Other long term (current) drug therapy
CPT/HCPCS: 36415; 71046; 80053; 83605; 83735; 83880; 84484; 85025; 85610; 85730; 93005; 99285

== ENCOUNTER 2022-05-24 16:57 | Emergency (ER) | payer MEDICARE, OTHER ==
[2022-05-24] MEDS ORDERED: SODIUM CHLORIDE 0.9% 500 ML 500 ML IV STA (17:24)
[2022-05-24] MEDS ORDERED: SODIUM CHLORIDE 0.9% 1,000 ML IV STA (17:24)
[2022-05-24] MEDS ORDERED: MAGNESIUM CITRATE 296 ML BOTTLE PO ONE (17:26)
[2022-05-24] MEDS ORDERED: bisacodyL 5 MG TABLET.DR PO STA (17:26)
[2022-05-24 18:06] LABS: Albumin 3.9 g/dL (3.5-5.0); Calcium 8.9 mg/dL (8.4-10.2); Potassium 3.7 mmol/L (3.5-5.1); Total Bilirubin 0.4 mg/dL (0.2-1.3)
[2022-05-24 18:09] LABS: INR 0.9 (<1.2); Partial Thromboplastin Time 26.3 sec (22.0-30.0); Prothrombin Time 10.3 sec (9.0-12.0)
[2022-05-24 18:14] LABS: Anisocytosis Slight; Basophils # (A) 0.1 k/uL (0-0.2); Basophils % (A) 1 %; Eosinophils # (A) 0.2 k/uL (0-0.7); Eosinophils % (A) 3 %; HCT 37.5 % (39.0-53.0); HGB 11.7 gm/dL (13.0-17.5); Lymphocytes # (A) 1.6 k/uL (1.0-4.8); Lymphocytes % (A) 28 %; MCH 30.1 pg (25.0-35.0); MCHC 31.3 g/dL (31.0-37.0); MCV 96.1 fL (80.0-100.0); Mean Platelet Volume 7.8; Monocytes # (A) 0.4 k/uL (0-1.0); Monocytes % (A) 7 %; Neutrophils # (A) 3.3 k/uL (1.3-7.7); Neutrophils % (A) 59 %; Platelet Count 265 k/uL (150-450); RDW 16.1 % (11.5-15.5); WBC 5.6 k/uL (3.8-10.6)
[2022-05-24 19:11] VITALS: RESP 18
--- NOTE | 2022-05-24 19:15 | CT ---
EXAMINATION TYPE: CT abdomen pelvis w con CT DLP: 1028.3 mGycm, Automated exposure control for dose reduction was used. DATE OF EXAM: 05/24/2022 6:51 PM COMPARISON: None CLINICAL INDICATION:Male, 71 years old with history of abdominal pain, nonlocalized; constipation TECHNIQUE: Axial CT of the abdomen and pelvis. Sagittal and coronal reformats were created on a [employer] workstation. Contrast used:80cc mL of Isovue 300 with IV Contrast, Oral contrast used: without Oral Contrast FINDINGS: LOWER CHEST: Partially visualized aortic valve leaflet calcifications. ABDOMEN LIVER: Diffusely hypoattenuating parenchyma. GALLBLADDER AND BILE DUCTS: Unremarkable. PANCREAS: Unremarkable. SPLEEN: Unremarkable. ADRENAL GLANDS: Unremarkable. KIDNEYS AND URETERS: No evidence of hydronephrosis or renal calculus. The ureters are unremarkable. Left renal cyst measuring up to 4.5 cm. PELVIS BLADDER: Unremarkable REPRODUCTIVE: Unremarkable. ABDOMEN & PELVIS STOMACH AND BOWEL: Small hiatal hernia, duodenum is unremarkable. Scattered diverticula are noted thr oughout the colon. No evidence of bowel obstruction. There is a moderate to large stool burden seen t hroughout the colon. Appendix is normal. PERITONEUM: No evidence of pneumoperitoneum or free fluid. VASCULATURE: Fusiform aneurysmal dilation of the infrarenal aorta measuring up to 3.0 cm. Moderate at herosclerosis of the arterial vasculature. MUSCULOSKELETAL: No acute osseous abnormalities LYMPH NODES: No gross evidence for lymphadenopathy. SOFT TISSUE/ABDOMINAL WALL: Unremarkable IMPRESSION: 1. No evidence for acute abdominal process. There is a moderate to large stool burden throughout the colon. 2. Hepatic steatosis. 3. Infrarenal fusiform aneurysmal dilation of the aorta measuring 3.0 cm.
--- NOTE | 2022-05-24 20:33 | ED ---
Abdominal Pain HPI - General Chief Complaint: Abdominal Pain Stated Complaint: Constipation Time Seen by Provider: 05/24/22 17:20 Source: patient Mode of arrival: EMS Limitations: no limitations - History of Present Illness Initial Comments: This 71-year-old male presents with a complaint of some constipation. He states that he has some slight pain in his left upper and left lower abdomen. His last bowel movement was 2 days ago but he states that he passed a very small bowel movement today. He does have a long history of constipation. His daughter relates that he is supposed to be taking Colace but he does not take the medication. He denies any fevers, chills, nausea, vomiting, or diarrhea. He has no other complaints. Symptoms severity is minimal. No other modifying factors. - Related Data Home Medications Medication Instructions Recorded Confirmed Atorvastatin [Lipitor] 80 mg PO HS 05/26/17 05/24/22 Aspirin EC [Ecotrin Low Dose] 81 mg PO DAILY 02/12/18 05/24/22 calcitrioL [Calcitriol] 0.25 mcg PO SUTUTHSA 10/07/18 05/24/22 Mirabegron [Myrbetriq] 50 mg PO DAILY 05/17/19 05/24/22 Clopidogrel [Plavix] 75 mg PO DAILY 12/08/19 05/24/22 Famotidine [Pepcid] 20 mg PO BID 11/18/20 05/24/22 Sertraline HCl [Zoloft] 50 mg PO DAILY 11/18/20 05/24/22 amLODIPine [Norvasc] 5 mg PO DAILY 05/24/22 05/24/22 Allergies Allergy/AdvReac Type Severity Reaction Status Date / Time No Known Allergies Allergy Verified 05/24/22 18:31 Review of Systems ROS Statement: Those systems with pertinent positive or pertinent negative responses have been documented in the HPI. ROS Other: All systems not noted in ROS Statement are negative. Past Medical History Past Medical History: COPD, CVA/TIA, Eye Disorder, GERD/Reflux, Hyperlipidemia, Hypertension, Osteoarthritis (OA), Prostate Disorder, Renal Disease, Sleep Apnea/CPAP/BIPAP, Syncope Additional Past Medical History / Comment(s): Multiple TIAs, CVA 01/2017 with dysphagia-peg tube inserted and now out, has residual weakness lt arm/leg and some lt facial droop, chronic kidney disease stage III, BPH, Uti, ROSA has Cpap but does not tolerate it no longer using it, gastric ulcer, past hxR foot 3rd toe osteomylitis, arthritis multiple joints, past gastric ulcer, past hx shingel s. Loop recorder removed 12/30/21. History of Any Multi-Drug Resistant Organisms: None Reported Past Surgical History: Hernia Repair, Joint Replacement Additional Past Surgical History / Comment(s): 06/01/17 intracranial angioplasty- (pt stated "he has stents') HFH, EGD with peg tube insertion since removed, R inguinal hernia repair, R total knee arthroplasty, colonoscopies with last one in 2019-normal., soniya eye cat sx, loop recorder since removed. Past Anesthesia/Blood Transfusion Reactions: No Reported Reaction Past Psychological History: No Psychological Hx Reported Smoking Status: Former smoker Past Alcohol Use History: None Reported Past Drug Use History: None Reported - Past Family History Mother Family Medical History: CVA/TIA, Diabetes Mellitus, Hyperlipidemia, Hypertension Father Family Medical History: CVA/TIA, Hypertension General Exam - General Exam Comments Initial Comments: GENERAL: The patient is well nourished and well hydrated. VITAL SIGNS: Heart rate, blood pressure, respiratory rate reviewed as recorded in nurse's notes. EYES: Pupils are round and reactive. Extraocular movements are intact. No conjunctival / lid redness or swelling. ENT: No external evidence of injury, swelling, or ecchymosis. Airway is patent. Throat is clear. NECK: Nontender. No swelling or evidence of injury. No subcutaneous emphysema. Trachea is midline. No thyroid mass. HEART: Regular rate and rhythm. Good peripheral pulses. LUNGS/CHEST: Breath sounds clear and equal bilaterally. No rales, rhonchi, or wheezes. No ecchymosis, subcutaneous emphysema, or tenderness. ABDOMEN: Abdomen soft mild left lower and left mid abdominal tenderness. No palpable masses or organomegaly. No peritoneal signs. No abdominal wall swelling or ecchymosis. EXTREMITIES: No extremity tenderness. Normal muscle tone and function. No thoracolumbar tenderness. NEUROLOGIC: Sensation is grossly intact. Cranial nerve exam reveals face is symmetrical, tongue is midline, speech is clear. SKIN: No abrasions or ecchymosis is noted. No induration or masses noted. PSYCHIATRIC: Alert and oriented. Appropriate behavior and judgment. Limitations: no limitations Course Vital Signs 05/24/22 05/24/22 17:02 19:10 Temperature 98.3 F Pulse Rate 72 65 Respiratory 16 18 Rate Blood Pressure 152/83 154/90 O2 Sat by Pulse 98 99 Oximetry Medical Decision Making - Medical Decision Making The patient was seen and examined. All diagnostics are reviewed. It appears as though he has some mild renal insufficiency. He has some mild anemia as well. The patient is also have a computed tomography scan of abdomen and pelvis and this does not show any acute significant abnormalities other than constipation. He is given Dulcolax orally as well as some magnesium citrate. He is only drank a small portion of the magnesium citrate. He is encouraged to drink additional magnesium citrate. He is offered an enema. Patient and family refused as they would like to go home. It is felt as though he would benefit from taking MiraLAX as well as Metamucil daily. This is strongly encouraged. They understand and agree and he leaves in no distress. - Lab Data Result diagrams: 05/24/22 17:50 05/24/22 17:50 Lab Results 05/24/22 05/24/22 05/24/22 Range/Units 17:50 17:50 17:50 WBC 5.6 (3.8-10.6) k/uL RBC 3.90 L (4.30-5.90) m/uL Hgb 11.7 L (13.0-17.5) gm/dL Hct 37.5 L (39.0-53.0) % MCV 96.1 (80.0-100.0) fL MCH 30.1 (25.0-35.0) pg MCHC 31.3 (31.0-37.0) g/dL RDW 16.1 H (11.5-15.5) % Plt Count 265 (150-450) k/uL MPV 7.8 Neutrophils % 59 % Lymphocytes % 28 % Monocytes % 7 % Eosinophils % 3 % Basophils % 1 % Neutrophils # 3.3 (1.3-7.7) k/uL Lymphocytes # 1.6 (1.0-4.8) k/uL Monocytes # 0.4 (0-1.0) k/uL Eosinophils # 0.2 (0-0.7) k/uL Basophils # 0.1 (0-0.2) k/uL Anisocytosis Slight PT 10.3 (9.0-12.0) sec INR 0.9 (<1.2) APTT 26.3 (22.0-30.0) sec Sodium 138 (137-145) mmol/L Potassium 3.7 (3.5-5.1) mmol/L Chloride 105 (98-107) mmol/L Carbon Dioxide 26 (22-30) mmol/L Anion Gap 7 mmol/L BUN 18 (9-20) mg/dL Creatinine 1.33 H (0.66-1.25) mg/dL Est GFR (CKD-EPI)AfAm 62 (>60 ml/min/1.73 sqM) Est GFR (CKD-EPI)NonAf 53 (>60 ml/min/1.73 sqM) Glucose 133 H (74-99) mg/dL Calcium 8.9 (8.4-10.2) mg/dL Total Bilirubin 0.4 (0.2-1.3) mg/dL AST 23 (17-59) U/L ALT 20 (4-49) U/L Alkaline Phosphatase 102 (38-126) U/L Total Protein 7.0 (6.3-8.2) g/dL Albumin 3.9 (3.5-5.0) g/dL Lipase 190 (23-300) U/L Disposition Clinical Impression: Constipation, Abdominal pain Disposition: HOME SELF-CARE Condition: Good Instructions (If sedation given, give patient instructions): Abdominal Pain (ED), Constipation (ED) Additional Instructions: Please use MiraLAX and Metamucil as discussed. Is patient prescribed a controlled substance at d/c from ED?: No Referrals: Rick Luke MD [Primary Care Provider] - 1-2 days Time of Disposition: 20:32
[2022-05-24 21:03] VITALS: BP 157/90; PULSE 69; TEMP 97.9
== END 2022-05-24 21:03 | disposition home or self-care (01) ==
LOC: EC 16:57
DX: R10.9 Unspecified abdominal pain (principal); K59.00 Constipation, unspecified; D64.9 Anemia, unspecified; J44.9 Chronic obstructive pulmonary disease, unspecified; E78.5 Hyperlipidemia, unspecified; I10 Essential (primary) hypertension; I12.9 Hypertensive chronic kidney disease with stage 1 through stage 4 chronic kidney disease, or unspecified chronic kidney disease; N18.30 Chronic kidney disease, stage 3 unspecified; M19.90 Unspecified osteoarthritis, unspecified site; K21.9 Gastro-esophageal reflux disease without esophagitis; N40.0 Benign prostatic hyperplasia without lower urinary tract symptoms; Z86.73 Personal history of transient ischemic attack (TIA), and cerebral infarction without residual deficits; Z87.891 Personal history of nicotine dependence; Z79.899 Other long term (current) drug therapy; Z79.82 Long term (current) use of aspirin; Z79.02 Long term (current) use of antithrombotics/antiplatelets
CPT/HCPCS: 80053; 83690; 85025; 85610; 85730; 74177; 99284; 96360; 96361; Q9967

== ENCOUNTER 2022-07-22 20:23 | Emergency (ER) | payer MEDICARE, OTHER ==
[2022-07-22 20:57] VITALS: BP 127/74; PULSE 85; RESP 20; TEMP 98.5
--- NOTE | 2022-07-22 23:33 | ED ---
URI HPI - General Chief Complaint: Upper Respiratory Infection Stated Complaint: Headache,Cough Time Seen by Provider: 07/22/22 23:32 Source: patient, family, RN notes reviewed Mode of arrival: ambulatory Limitations: no limitations - History of Present Illness Initial Comments: Patient is a 71-year-old -Swedish male presenting to the emergency room with complaints of cough and fever ongoing for approximately 48 hours. His who is with him states that she tested positive for Covid approximately 6 days ago and was concerned her spouse contracted COVID. He is vaccinated for COVID. He is resting comfortably in a wheelchair and personally denies any specific complaints. He has a past medical history significant for CVA, COPD, obstructive sleep apnea, GERD, BPH, chronic kidney disease stage III and arthritis. - Related Data Home Medications Medication Instructions Recorded Confirmed Atorvastatin [Lipitor] 80 mg PO HS 05/26/17 05/24/22 Aspirin EC [Ecotrin Low Dose] 81 mg PO DAILY 02/12/18 05/24/22 calcitrioL [Calcitriol] 0.25 mcg PO SUTUTHSA 10/07/18 05/24/22 Mirabegron [Myrbetriq] 50 mg PO DAILY 05/17/19 05/24/22 Clopidogrel [Plavix] 75 mg PO DAILY 12/08/19 05/24/22 Famotidine [Pepcid] 20 mg PO BID 11/18/20 05/24/22 Sertraline HCl [Zoloft] 50 mg PO DAILY 11/18/20 05/24/22 amLODIPine [Norvasc] 5 mg PO DAILY 05/24/22 05/24/22 Allergies Allergy/AdvReac Type Severity Reaction Status Date / Time No Known Allergies Allergy Verified 07/22/22 20:57 Review of Systems ROS Statement: Those systems with pertinent positive or pertinent negative responses have been documented in the HPI. ROS Other: All systems not noted in ROS Statement are negative. 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 Loop recorder removed 12/30/21. History of Any Multi-Drug Resistant Organisms: None Reported Past Surgical History: Hernia Repair, Joint Replacement Additional Past Surgical History / Comment(s): 06/01/17 intracranial angioplasty- (pt stated "he has stents') HFH, EGD with peg tube insertion since removed, R inguinal hernia repair, R total knee arthroplasty, colonoscopies with last one in 2019-normal., soniya eye cat sx, loop recorder since removed. Past Anesthesia/Blood Transfusion Reactions: No Reported Reaction Past Psychological History: No Psychological Hx Reported Smoking Status: Former smoker Past Alcohol Use History: None Reported Past Drug Use History: None Reported - Past Family History Mother Family Medical History: CVA/TIA, Diabetes Mellitus, Hyperlipidemia, Hypertension Father Family Medical History: CVA/TIA, Hypertension General Exam General appearance: alert, in no apparent distress Head exam: Present: atraumatic, normocephalic, normal inspection Eye exam: Present: normal appearance, PERRL, EOMI. Absent: scleral icterus, conjunctival injection, periorbital swelling ENT exam: Present: normal exam, mucous membranes moist Neck exam: Present: normal inspection Respiratory exam: Absent: respiratory distress, accessory muscle use Extremities exam: Absent: pedal edema, joint swelling Neurological exam: Present: alert, oriented X3 Psychiatric exam: Present: normal affect, normal mood Skin exam: Present: warm, dry Course Vital Signs 07/22/22 20:54 Temperature 98.5 F Pulse Rate 85 Respiratory 20 Rate Blood Pressure 127/74 O2 Sat by Pulse 97 Oximetry Medical Decision Making - Medical Decision Making 71-year-old -Swedish male presenting to the emergency room with Covid symptoms and known exposure to COVID. Covid swallow completed outpatient in triage. Patient has positive Covid. Patient with several contraindications to Paxil that including chronic kidney disease and medication regimen containing clopidogrel. requesting medication of Ivermectin which she states she received from her primary care provider. Patient spells also advised that medication is not currently authorized or approved by the FDA for Covid treatment consequently will not be prescribed. She also request a prescription for Zithromax antibiotic therapy to treat his Covid; further advisement regarding Covid being a virus and supplemental treatment and supportive treatment with Tylenol and vitamin and mineral supplement is encouraged and antibiotic therapy is not indicated. Case discussed with Dr. Rivera. - Lab Data Lab Results 07/22/22 Range/Units 21:03 Coronavirus (PCR) Detected A (Not Detectd) Disposition Clinical Impression: COVID Disposition: HOME SELF-CARE Condition: Stable Instructions (If sedation given, give patient instructions): Upper Respiratory Infection (ED), COVID-19 (Coronavirus Disease 2019) (ED) Additional Instructions: Please quarantine for 5 days after testing positive and restart quarantine if symptoms worsen. Please utilize Tylenol as needed for fevers and pain. Taking vitamin C, Zinc, vitamin D 50 mcg, and melatonin may help symptom recovery. Please return to the Emergency Department if symptoms worsen or any other concerns. Is patient prescribed a controlled substance at d/c from ED?: No Referrals: Rick Luke MD [Primary Care Provider] - 1-2 days Time of Disposition: 23:33
== END 2022-07-22 23:48 | disposition home or self-care (01) ==
LOC: EC 20:23
DX: U07.1 COVID-19 (principal); J44.9 Chronic obstructive pulmonary disease, unspecified; E78.5 Hyperlipidemia, unspecified; I12.9 Hypertensive chronic kidney disease with stage 1 through stage 4 chronic kidney disease, or unspecified chronic kidney disease; N18.30 Chronic kidney disease, stage 3 unspecified; M19.90 Unspecified osteoarthritis, unspecified site; Z86.73 Personal history of transient ischemic attack (TIA), and cerebral infarction without residual deficits; Z87.891 Personal history of nicotine dependence; Z79.02 Long term (current) use of antithrombotics/antiplatelets; Z79.899 Other long term (current) drug therapy
CPT/HCPCS: 87635; 99283

== ENCOUNTER 2022-07-24 03:10 | Inpatient (IN) | payer MEDICARE, OTHER ==
[2022-07-24] MEDS ORDERED: ACETAMINOPHEN TAB 500 MG TAB PO STA (03:32)
[2022-07-24] MEDS ORDERED: ACETAMINOPHEN IV (For NPO) 1,000 MG in EMPTY BAG 1 BAG IVPB STA (03:54)
[2022-07-24] MEDS ORDERED: SODIUM CHLORIDE 0.9% 1,000 ML IV STA (03:55)
[2022-07-24 04:32] LABS: Anisocytosis Slight; Basophils % (A) 0 %; Eosinophils % (A) 0 %; HCT 33.8 % (39.0-53.0); HGB 10.8 gm/dL (13.0-17.5); Lymphocytes # (A) 0.8 k/uL (1.0-4.8); Lymphocytes % (A) 9 %; MCH 30.2 pg (25.0-35.0); MCV 94.4 fL (80.0-100.0); Mean Platelet Volume 7.4; Monocytes # (A) 0.4 k/uL (0-1.0); Monocytes % (A) 5 %; Neutrophils # (A) 6.9 k/uL (1.3-7.7); Neutrophils % (A) 83 %; Platelet Count 220 k/uL (150-450); RBC 3.58 m/uL (4.30-5.90); RDW 16.5 % (11.5-15.5); WBC 8.3 k/uL (3.8-10.6)
[2022-07-24 04:40] LABS: Partial Thromboplastin Time 26.4 sec (22.0-30.0); Prothrombin Time 10.7 sec (9.0-12.0)
[2022-07-24 04:45] LABS: Albumin 3.9 g/dL (3.5-5.0); Calcium 8.7 mg/dL (8.4-10.2); Magnesium 1.5 mg/dL (1.6-2.3); Potassium 3.5 mmol/L (3.5-5.1); Total Bilirubin 0.3 mg/dL (0.2-1.3); Total Protein 6.7 g/dL (6.3-8.2)
--- NOTE | 2022-07-24 05:20 | ED ---
General Adult HPI - General Chief complaint: Recheck/Abnormal Lab/Rx Stated complaint: Covid Time Seen by Provider: 07/24/22 03:12 Source: patient, EMS Mode of arrival: EMS - History of Present Illness Initial comments: 71-year-old male with past medical history of CVA and residual left-sided weakness presents to the emergency department with increasing weakness. He was seen in the emergency department earlier today for a cough. He tested positive for Covid. He did not qualify for Paxlovid as he takes Plavix. Patient had no increased work of breathing and therefore was discharged home. states that he has been doing very bad at home. He has been unable to ambulate due to his weakness. Normally walks with a cane however required significant assistance by her. He has not had anything to eat in 2 days. states he's been making minimal urine and has not had a bowel movement. No vomiting. Patient provides minimal history as he is a poor historian. - Related Data Home Medications Medication Instructions Recorded Confirmed Atorvastatin [Lipitor] 80 mg PO HS 05/26/17 07/24/22 Aspirin EC [Ecotrin Low Dose] 81 mg PO DAILY 02/12/18 07/24/22 calcitrioL [Calcitriol] 0.25 mcg PO SUTUTHSA 10/07/18 07/24/22 Clopidogrel [Plavix] 75 mg PO DAILY 12/08/19 07/24/22 Famotidine [Pepcid] 20 mg PO BID 11/18/20 07/24/22 Sertraline HCl [Zoloft] 50 mg PO DAILY 11/18/20 07/24/22 amLODIPine [Norvasc] 5 mg PO DAILY 05/24/22 07/24/22 Ascorbic Acid [Vitamin C] 1,000 mg PO DAILY 07/24/22 07/24/22 Ferrous Sulfate [Feosol] 325 mg PO DAILY 07/24/22 07/24/22 Melatonin [Melatonin ER] 10 mg PO HS 07/24/22 07/24/22 Zinc Gluconate [Zinc] 50 mg PO DAILY 07/24/22 07/24/22 Allergies Allergy/AdvReac Type Severity Reaction Status Date / Time No Known Allergies Allergy Verified 07/24/22 03:20 Review of Systems ROS Statement: Those systems with pertinent positive or pertinent negative responses have been documented in the HPI. ROS Other: All systems not noted in ROS Statement are negative. Past Medical History Past Medical History: COPD, CVA/TIA, Eye Disorder, GERD/Reflux, Hyperlipidemia, Hypertension, Osteoarthritis (OA), Prostate Disorder, Renal Disease, Sleep Apnea/CPAP/BIPAP, Syncope Additional Past Medical History / Comment(s): Multiple TIAs, CVA 01/2017 with dysphagia-peg tube inserted and now out, has residual weakness lt arm/leg and s ome lt facial droop, chronic kidney disease stage III, BPH, Uti, ROSA has Cpap but does not tolerate it no longer using it, gastric ulcer, past hxR foot 3rd toe osteomylitis, arthritis multiple joints, past gastric ulcer, past hx shingels. Loop recorder removed 12/30/21. History of Any Multi-Drug Resistant Organisms: None Reported Past Surgical History: Hernia Repair, Joint Replacement Additional Past Surgical History / Comment(s): 06/01/17 intracranial angioplasty- (pt stated "he has stents') HFH, EGD with peg tube insertion since removed, R inguinal hernia repair, R total knee arthroplasty, colonoscopies with last one i n 2019-normal., soniya eye cat sx, loop recorder since removed. Past Anesthesia/Blood Transfusion Reactions: No Reported Reaction Past Psychological History: No Psychological Hx Reported Smoking Status: Former smoker Past Alcohol Use History: None Reported Past Drug Use History: None Reported - Past Family History Mother Family Medical History: CVA/TIA, Diabetes Mellitus, Hyperlipidemia, Hypertension Father Family Medical History: CVA/TIA, Hypertension General Exam General appearance: lethargic Head exam: Present: atraumatic, normocephalic, normal inspection Eye exam: Present: normal appearance, PERRL, EOMI. Absent: scleral icterus, conjunctival injection, periorbital swelling ENT exam: Present: normal exam, mucous membranes moist Neck exam: Present: normal inspection. Absent: tenderness, meningismus, lymphadenopathy Respiratory exam: Present: decreased breath sounds. Absent: respiratory distress, wheezes, rales, rhonchi, stridor Cardiovascular Exam: Present: regular rate, normal rhythm, normal heart sounds. Absent: systolic murmur, diastolic murmur, rubs, gallop, clicks GI/Abdominal exam: Present: soft, normal bowel sounds. Absent: distended, tenderness, guarding, rebound, rigid Extremities exam: Present: normal capillary refill, other (4/5 strength left upper and left lower extremity - chronic). Absent: tenderness, pedal edema, joint swelling, calf tenderness Back exam: Present: normal inspection Neurological exam: Present: alert, CN II-XII intact Psychiatric exam: Present: normal mood, flat affect Skin exam: Present: warm, dry, intact, normal color. Absent: rash Course Vital Signs 07/24/22 07/24/22 07/24/22 03:12 04:16 05:19 Temperature 100.5 F H 99.4 F Pulse Rate 92 77 Respiratory 18 16 Rate Blood Pressure 142/78 148/84 O2 Sat by Pulse 94 L 98 Oximetry 07/24/22 07/24/22 07/24/22 07:30 08:54 11:11 Temperature 98.4 F Pulse Rate 63 73 64 Respiratory 18 18 18 Rate Blood Pressure 153/96 144/105 142/83 O2 Sat by Pulse 95 96 96 Oximetry 07/24/22 07/24/22 07/24/22 12:00 13:30 15:28 Temperature 97.8 F Pulse Rate 64 62 67 Respiratory 18 18 18 Rate Blood Pressure 140/74 145/86 152/84 O2 Sat by Pulse 96 96 97 Oximetry 07/24/22 07/24/22 17:01 18:01 Temperature 98.4 F Pulse Rate 68 68 Respiratory 18 18 Rate Blood Pressure 174/99 169/98 O2 Sat by Pulse 96 96 Oximetry EKG Findings - EKG Comments: EKG Findings:: EKG demonstrates sinus rhythm with a rate of 86. OR interval 188. QRS 96. QTC of 396. Inverted T waves V3 through V6 as well as lead 3. No acute ST segment elevations Medical Decision Making - Medical Decision Making Upon arrival patient was placed into room 9. There are history and physical exam is performed. Attempted to give the patient a Tylenol however he is having issues swallowing therefore I did give him a dose his IV. Laboratory studies were conducted and reviewed. Creatinine 1.3. Lactic acid is 3. Troponin elevated 0.040. Covid is positive. He did have a chest x-ray performed this morning which I did review and demonstrates no active cardiopulmonary disease. Due to patient's weakness, elevated troponin and low magnesium I did recommend admission for which the was agreeable. Spoke with Hoa from [facility] will admit the patient - Lab Data Result diagrams: 07/24/22 04:06 07/24/22 04:06 Lab Results 07/24/22 07/24/22 07/24/22 Range/Units 04:06 04:06 04:06 WBC 8.3 (3.8-10.6) k/uL RBC 3.58 L (4.30-5.90) m/uL Hgb 10.8 L (13.0-17.5) gm/dL Hct 33.8 L (39.0-53.0) % MCV 94.4 (80.0-100.0) fL MCH 30.2 (25.0-35.0) pg MCHC 32.0 (31.0-37.0) g/dL RDW 16.5 H (11.5-15.5) % Plt Count 220 (150-450) k/uL MPV 7.4 Neutrophils % 83 % Lymphocytes % 9 % Monocytes % 5 % Eosinophils % 0 % Basophils % 0 % Neutrophils # 6.9 (1.3-7.7) k/uL Lymphocytes # 0.8 L (1.0-4.8) k/uL Monocytes # 0.4 (0-1.0) k/uL Eosinophils # 0.0 (0-0.7) k/uL Basophils # 0.0 (0-0.2) k/uL Anisocytosis Slight PT 10.7 (9.0-12.0) sec INR 1.0 (<1.2) APTT 26.4 (22.0-30.0) sec Sodium 135 L (137-145) mmol/L Potassium 3.5 (3.5-5.1) mmol/L Chloride 101 (98-107) mmol/L Carbon Dioxide 18 L (22-30) mmol/L Anion Gap 16 mmol/L BUN 24 H (9-20) mg/dL Creatinine 1.35 H (0.66-1.25) mg/dL Est GFR (CKD-EPI)AfAm 60 (>60 ml/min/1.73 sqM) Est GFR (CKD-EPI)NonAf 52 (>60 ml/min/1.73 sqM) Glucose 227 H (74-99) mg/dL Lactic Ac Sepsis Rflx Plasma Lactic Acid Del (0.7-2.0) mmol/L Calcium 8.7 (8.4-10.2) mg/dL Magnesium 1.5 L (1.6-2.3) mg/dL Total Bilirubin 0.3 (0.2-1.3) mg/dL AST 34 (17-59) U/L ALT 24 (4-49) U/L Alkaline Phosphatase 84 (38-126) U/L Troponin I (0.000-0.034) ng/mL NT-Pro-B Natriuret Pep pg/mL Total Protein 6.7 (6.3-8.2) g/dL Albumin 3.9 (3.5-5.0) g/dL Coronavirus (PCR) (Not Detectd) Influenza Type A RNA (Not Detectd) Influenza Type B (PCR) (Not Detectd) 07/24/22 07/24/22 07/24/22 Range/Units 04:06 04:06 04:06 WBC (3.8-10.6) k/uL RBC (4.30-5.90) m/uL Hgb (13.0-17.5) gm/dL Hct (39.0-53.0) % MCV (80.0-100.0) fL MCH (25.0-35.0) pg MCHC (31.0-37.0) g/dL RDW (11.5-15.5) % Plt Count (150-450) k/uL MPV Neutrophils % % Lymphocytes % % Monocytes % % Eosinophils % % Basophils % % Neutrophils # (1.3-7.7) k/uL Lymphocytes # (1.0-4.8) k/uL Monocytes # (0-1.0) k/uL Eosinophils # (0-0.7) k/uL Basophils # (0-0.2) k/uL Anisocytosis PT (9.0-12.0) sec INR (<1.2) APTT (22.0-30.0) sec Sodium (137-145) mmol/L Potassium (3.5-5.1) mmol/L Chloride (98-107) mmol/L Carbon Dioxide (22-30) mmol/L Anion Gap mmol/L BUN (9-20) mg/dL Creatinine (0.66-1.25) mg/dL Est GFR (CKD-EPI)AfAm (>60 ml/min/1.73 sqM) Est GFR (CKD-EPI)NonAf (>60 ml/min/1.73 sqM) Glucose (74-99) mg/dL Lactic Ac Sepsis Rflx Plasma Lactic Acid Del 3.0 H* (0.7-2.0) mmol/L Calcium (8.4-10.2) mg/dL Magnesium (1.6-2.3) mg/dL Total Bilirubin (0.2-1.3) mg/dL AST (17-59) U/L ALT (4-49) U/L Alkaline Phosphatase (38-126) U/L Troponin I 0.040 H* (0.000-0.034) ng/mL NT-Pro-B Natriuret Pep 165 pg/mL Total Protein (6.3-8.2) g/dL Albumin (3.5-5.0) g/dL Coronavirus (PCR) (Not Detectd) Influenza Type A RNA (Not Detectd) Influenza Type B (PCR) (Not Detectd) 07/24/22 07/24/22 07/24/22 Range/Units 04:44 04:44 04:49 WBC (3.8-10.6) k/uL RBC (4.30-5.90) m/uL Hgb (13.0-17.5) gm/dL Hct (39.0-53.0) % MCV (80.0-100.0) fL MCH (25.0-35.0) pg MCHC (31.0-37.0) g/dL RDW (11.5-15.5) % Plt Count (150-450) k/uL MPV Neutrophils % % Lymphocytes % % Monocytes % % Eosinophils % % Basophils % % Neutrophils # (1.3-7.7) k/uL Lymphocytes # (1.0-4.8) k/uL Monocytes # (0-1.0) k/uL Eosinophils # (0-0.7) k/uL Basophils # (0-0.2) k/uL Anisocytosis PT (9.0-12.0) sec INR (<1.2) APTT (22.0-30.0) sec Sodium (137-145) mmol/L Potassium (3.5-5.1) mmol/L Chloride (98-107) mmol/L Carbon Dioxide (22-30) mmol/L Anion Gap mmol/L BUN (9-20) mg/dL Creatinine (0.66-1.25) mg/dL Est GFR (CKD-EPI)AfAm (>60 ml/min/1.73 sqM) Est GFR (CKD-EPI)NonAf (>60 ml/min/1.73 sqM) Glucose (74-99) mg/dL Lactic Ac Sepsis Rflx Y Plasma Lactic Acid Del (0.7-2.0) mmol/L Calcium (8.4-10.2) mg/dL Magnesium (1.6-2.3) mg/dL Total Bilirubin (0.2-1.3) mg/dL AST (17-59) U/L ALT (4-49) U/L Alkaline Phosphatase (38-126) U/L Troponin I (0.000-0.034) ng/mL NT-Pro-B Natriuret Pep pg/mL Total Protein (6.3-8.2) g/dL Albumin (3.5-5.0) g/dL Coronavirus (PCR) Detected A (Not Detectd) Influenza Type A RNA Not Detected (Not Detectd) Influenza Type B (PCR) Not Detected (Not Detectd) Disposition Clinical Impression: Weakness, Fever, COVID-19, Hypomagnesemia, NSTEMI (non-ST elevated myocardial infarction) Disposition: ADMITTED IP TO THIS [facility] Condition: Stable Is patient prescribed a controlled substance at d/c from ED?: No Time of Disposition: 05:35 Decision to Admit Reason: Admit from EC Decision Date: 07/24/22 Decision Time: 05:35
[2022-07-24] MEDS ORDERED: MAGNESIUM SULFATE-D5W PMX 1 GM in DEXTROSE/WATER 1 100ML.BAG IVPB ONE (05:21)
[2022-07-24] MEDS ORDERED: NALOXONE 0.4 MG/ML 1 ML VIAL IV PRN (05:35)
[2022-07-24] MEDS: SODIUM CHLORIDE 0.9% 1,000 ML IV SCH ×2 (05:46→21:24)
[2022-07-24] MEDS: PANTOPRAZOLE 40 MG/10 ML VIAL IV SCH (08:20)
[2022-07-24] MEDS: ASPIRIN 81 MG PO SCH (08:55)
[2022-07-24] MEDS: amLODIPine 5 MG TAB PO SCH (08:55)
[2022-07-24] MEDS: CLOPIDOGREL 75 MG TAB PO SCH (08:55)
[2022-07-24] MEDS: CHOLECALCIFEROL 25 MCG (1000 IU) TABLET PO SCH (11:14)
[2022-07-24] MEDS: SERTRALINE 50 MG TAB PO SCH (11:14)
[2022-07-24] MEDS: ENOXAPARIN 40 MG/0.4 ML SYRINGE SQ SCH (11:14)
--- NOTE | 2022-07-24 11:41 | P.CRDCN ---
History of Present Illness History of present illness: ISTORY OF PRESENTING ILLNESS This is a pleasant 71-year-old male past medical history significant for CVA, hypertension, dyslipidemia and dysautonomia. He follows in the office with [facility]. We have been asked to see in consultation for EKG changes. He presented to the hospital with symptoms of cough, fever, chills. He was found to be covid-19 positive. He denies any chest pain, palpitations, shortness of breath, symptoms of orthopnea or PND. He did not know he had Covid. Overall his symptoms have slightly improved. Vital signs are stable. He denies any chest discomfort. He denies history of CAD, TN, or diabetes. He is a former smoker. DIAGNOSTICS * EKG reveals sinus rhythm, heart rate 86, non-specific T wave abnormality. T wave inversions in lead V4-V6 * Loop recorder device interrogation in the office has not revealed any acute arrhythmias * Laboratory data reviewed, initial troponin 0.04, repeat negative, Covid 19 positive, WBC 0.3, hemoglobin 10.8, platelets 220, sodium 135, potassium 3.5, BUN 24, serum creatinine 1.3, lactate 3 * Current daily cardiac medications include amlodipine 10 mg daily, aspirin 81 mg daily, Plavix 75 mg daily, atorvastatin 80 mg nightly * Most recent echocardiogram obtained 10/2020 revealed preserved LV systolic function with EF 55-60%, moderate LVH and mild MR. REVIEW OF SYSTEMS At the time of my exam: CONSTITUTIONAL: +fever + chills. CARDIOVASCULAR: Denies chest pain, shortness of breath, orthopnea, PND or palpitations. RESPIRATORY: +cough. GASTROINTESTINAL: Denies abdominal pain, diarrhea, constipation, nausea or vomiting. MUSCULOSKELETAL: Denies myalgias. NEUROLOGIC: Denies numbness, tingling, headacbe or weakness. ENDOCRINE: Denies fatigue, weight change, polydipsia or polyurina. GENITOURINARY: Denies burning, hematuria or urgency with micturation. HEMATOLOGIC: Denies history of anemia or bleeding. PHYSICAL EXAMINATION Vitals reviewed CONSTITUTIONAL: No apparent distress. HEENT: Head is normocephalic. Pupils are equal, round. Sclerae anicteric. Mucous membranes of the mouth are moist. No JVD. CHEST EXAMINATION: Lungs are rhonchi in the right lower lobe > left lower chandler to auscultation. No chest wall tenderness is noted on palpation or with deep breathing. HEART EXAMINATION: Regular rate and rhythm. S1, S2 heard. No murmurs, gallops or rub. ABDOMEN: Soft, nontender. Positive bowel sounds. EXTREMITIES: 2+ peripheral pulses, no lower extremity edema and no calf tenderness. NEUROLOGIC EXAMINATION: Patient is awake, alert and oriented x3. ASSESSMENT Symptoms of cough, fever, chills Covid-19 infection Elevated troponin 0.04 x 1, repeat negative, likely secondary to infectious process, patient without chest pain Lactic acidosis Hypertension History of Dysautonomia Dyslipidemia History of CVA Chronic kidney disease PLAN Continue home cardiac medications 2D echocardiogram ordered Patient asymptomatic without angina symptoms and minimal troponin elevation. Await 2D echo. Further recs to follow. Nurse Practitioner note has been reviewed, I agree with a documented findings and plan of care. Patient was seen and examined. 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 Loop recorder removed 12/30/21. History of Any Multi-Drug Resistant Organisms: None Reported Past Surgical History: Hernia Repair, Joint Replacement Additional Past Surgical History / Comment(s): 06/01/17 intracranial angioplasty- (pt stated "he has stents') HFH, EGD with peg tube insertion since removed, R inguinal hernia repair, R total knee arthroplasty, colonoscopies with last one in 2019-normal., soniya eye cat sx, loop recorder since removed. Past Anesthesia/Blood Transfusion Reactions: No Reported Reaction Past Psychological History: No Psychological Hx Reported Smoking Status: Former smoker Past Alcohol Use History: None Reported Past Drug Use History: None Reported - Past Family History Mother Family Medical History: CVA/TIA, Diabetes Mellitus, Hyperlipidemia, Hypertension Father Family Medical History: CVA/TIA, Hypertension Medications and Allergies Home Medications Medication Instructions Recorded Confirmed Type Atorvastatin [Lipitor] 80 mg PO HS 05/26/17 07/24/22 History Aspirin EC [Ecotrin Low Dose] 81 mg PO DAILY 02/12/18 07/24/22 History calcitrioL [Calcitriol] 0.25 mcg PO SUTUTHSA 10/07/18 07/24/22 History Clopidogrel [Plavix] 75 mg PO DAILY 12/08/19 07/24/22 History Famotidine [Pepcid] 20 mg PO BID 11/18/20 07/24/22 History Sertraline HCl [Zoloft] 50 mg PO DAILY 11/18/20 07/24/22 History amLODIPine [Norvasc] 5 mg PO DAILY 05/24/22 07/24/22 History Ascorbic Acid [Vitamin C] 1,000 mg PO DAILY 07/24/22 07/24/22 History Ferrous Sulfate [Feosol] 325 mg PO DAILY 07/24/22 07/24/22 History Melatonin [Melatonin ER] 10 mg PO HS 07/24/22 07/24/22 History Zinc Gluconate [Zinc] 50 mg PO DAILY 07/24/22 07/24/22 History Allergies Allergy/AdvReac Type Severity Reaction Status Date / Time No Known Allergies Allergy Verified 07/24/22 03:20 Physical Exam Vitals: Vital Signs Temp Pulse Resp BP Pulse Ox 07/24/22 05:19 99.4 F 07/24/22 04:16 77 16 148/84 98 07/24/22 03:12 100.5 F H 92 18 142/78 94 L Intake and Output 07/23/22 07/24/22 07/24/22 22:59 06:59 14:59 Other: Weight 92.986 kg Results 07/24/22 04:06 07/24/22 04:06 Cardiac Enzymes 07/24/22 07/24/22 Range/Units 04:06 04:06 AST 34 (17-59) U/L Troponin I 0.040 H* (0.000-0.034) ng/mL Coagulation 07/24/22 Range/Units 04:06 PT 10.7 (9.0-12.0) sec APTT 26.4 (22.0-30.0) sec CBC 07/24/22 Range/Units 04:06 WBC 8.3 (3.8-10.6) k/uL RBC 3.58 L (4.30-5.90) m/uL Hgb 10.8 L (13.0-17.5) gm/dL Hct 33.8 L (39.0-53.0) % Plt Count 220 (150-450) k/uL Comprehensive Metabolic Panel 07/24/22 Range/Units 04:06 Sodium 135 L (137-145) mmol/L Potassium 3.5 (3.5-5.1) mmol/L Chloride 101 (98-107) mmol/L Carbon Dioxide 18 L (22-30) mmol/L BUN 24 H (9-20) mg/dL Creatinine 1.35 H (0.66-1.25) mg/dL Glucose 227 H (74-99) mg/dL Calcium 8.7 (8.4-10.2) mg/dL AST 34 (17-59) U/L ALT 24 (4-49) U/L Alkaline Phosphatase 84 (38-126) U/L Total Protein 6.7 (6.3-8.2) g/dL Albumin 3.9 (3.5-5.0) g/dL Current Medications Generic Name Dose Route Start Last Admin Trade Name Freq PRN Reason Stop Dose Admin Sodium Chloride 1,000 mls @ 75 mls/hr 07/24/22 05:45 07/24/22 05:46 Saline 0.9% IV 75 mls/hr .[id number] HAM Administration Naloxone HCl 0.2 mg 07/24/22 05:35 Naloxone 0.4 Mg/Ml 1 Ml Vial IV Q2M PRN Opioid Reversal Pantoprazole Sodium 40 mg 07/24/22 09:00 Pantoprazole 40 Mg/10 Ml Vial IV DAILY HAM Intake and Output 07/23/22 07/24/22 07/24/22 22:59 06:59 14:59 Other: Weight 92.986 kg 07/24/22 04:06 07/24/22 04:06
[2022-07-24] MEDS: ATORVASTATIN 80 MG TAB PO SCH (21:24)
[2022-07-24] MEDS: FAMOTIDINE 20 MG TAB PO SCH (21:24)
[2022-07-24 21:48] LABS: Appearance,Urine Clear (Clear); Bacteria,Urine Few /hpf; Bilirubin,Urine Negative (Negative); Blood,Urine Negative (Negative); Color,Urine Yellow; Glucose,Urine (UA) 1+ (Negative); Ketones,Urine Negative (Negative); Leukocyte Esterase,Urine Negative (Negative); Mucus,Urine Rare /hpf; Nitrite,Urine Negative (Negative); PH, Urine 6.5 (5.0-8.0); Protein,Urine 1+ (Negative); RBC,Urine 1 /hpf (0-5); Specific Gravity,Urine 1.024 (1.001-1.035); Urobilinogen,Urine <2.0 mg/dL (<2.0); WBC,Urine 1 /hpf (0-5)
--- NOTE | 2022-07-24 21:57 | P.HPIM ---
History of Present Illness H&P Date: 07/24/22 Chief Complaint: Generalized weakness and fever Patient is a 69-year-old male with a known history of hypertension, hyperlipidemia, history of CVA/TIA, COPD, osteoarthritis, obstructive sleep apnea not using CPAP at home, BPH, gastric ulcer and prior history of smoking presents to ER with complaints of generalized weakness and cough and mild shortness of breath. Denies any nausea vomiting or abdominal pain or diarrhea. Patient has been having symptoms for the past 1 week. Patient was tested positive for COVID-19 infection on Sunday. Patient was discharged home from the ER yesterday morning. Patient was brought back to the hospital since he has been having increased weakness and difficulty ambulate. Patient usually walks with a cane. He has been having decreased oral intake and minimal urine output. EKG showed sinus rhythm Laboratory data showed WBC 8.3 hemoglobin 10.8 and platelets 220 Sodium 135 potassium 3.5 chloride 101 bicarb is 18 BUN 24 and creatinine 1.35 and blood sugar 227 lactic acid 3.0 Troponin 0.040 and 0.019 and 0.039 proBNP 165 liver enzymes are not elevated magnesium 1.5 and coronavirus PCR detected. Patient was febrile on admission with T-max 100.5 pulse ox 94% on room air. Patient was tachycardic on admission. Patient was not given PACs noted due to patient being on Plavix. Review of Systems Constitutional: Fever. No chills. Generalized weakness and fatigue. Abdomen: Patient denied any nausea or vomiting or abd. pain Cardiovascular: Patient denies any chest pain or short of breath no palpitati ons. Respiratory: Cough congestion and shortness of breath.. No sputum production Neurologic: Patient denied any numbness or tingling headache. Musculoskeletal: Patient denies any complaints of joint swelling or deformity. Skin: Negative Psychiatric: Negative Endocrine: No heat or cold intolerance. No recent weight gain. Genitourinary: No dysuria or hematuria. All other 14 point ROS negative except the above Past Medical History Past Medical History: COPD, CVA/TIA, Eye Disorder, GERD/Reflux, Hyperlipidemia, Hypertension, Osteoarthritis (OA), Prostate Disorder, Renal Disease, Sleep Apnea/CPAP/BIPAP, Syncope Additional Past Medical History / Comment(s): Multiple TIAs, CVA 01/2017 with dysphagia-peg tube inserted and now out, has residual weakness lt arm/leg and some lt facial droop, chronic kidney disease stage III, BPH, Uti, ROSA has Cpap but does not tolerate it no longer using it, gastric ulcer, past hxR foot 3rd toe osteomylitis, arthritis multiple joints, past gastric ulcer, past hx shingels. Loop recorder removed 12/30/21, near syncope. History of Any Multi-Drug Resistant Organisms: None Reported Past Surgical History: Hernia Repair, Joint Replacement Additional Past Surgical History / Comment(s): 06/01/17 intracranial angioplasty- (pt stated "he has stents') HFH, EGD with peg tube insertion since removed, R inguinal hernia repair, R total knee arthroplasty, colonoscopies with last one in 2019-normal., soniya eye cat sx, loop recorder since removed. Past Anesthesia/Blood Transfusion Reactions: No Reported Reaction Smoking Status: Former smoker - Past Family History Mother Family Medical History: CVA/TIA, Diabetes Mellitus, Hyperlipidemia, Hypertension Father Family Medical History: CVA/TIA, Hypertension Medications and Allergies Home Medications Medication Instructions Recorded Confirmed Type Atorvastatin [Lipitor] 80 mg PO HS 05/26/17 07/24/22 History Aspirin EC [Ecotrin Low Dose] 81 mg PO DAILY 02/12/18 07/24/22 History calcitrioL [Calcitriol] 0.25 mcg PO SUTUTHSA 10/07/18 07/24/22 History Clopidogrel [Plavix] 75 mg PO DAILY 12/08/19 07/24/22 History Famotidine [Pepcid] 20 mg PO BID 11/18/20 07/24/22 History Sertraline HCl [Zoloft] 50 mg PO DAILY 11/18/20 07/24/22 History amLODIPine [Norvasc] 5 mg PO DAILY 05/24/22 07/24/22 History Ascorbic Acid [Vitamin C] 1,000 mg PO DAILY 07/24/22 07/24/22 History Ferrous Sulfate [Feosol] 325 mg PO DAILY 07/24/22 07/24/22 History Melatonin [Melatonin ER] 10 mg PO HS 07/24/22 07/24/22 History Zinc Gluconate [Zinc] 50 mg PO DAILY 07/24/22 07/24/22 History Allergies Allergy/AdvReac Type Severity Reaction Status Date / Time No Known Allergies Allergy Verified 07/24/22 03:20 Physical Exam Vitals: Vital Signs Temp Pulse Resp BP Pulse Ox 07/24/22 08:54 73 18 144/105 96 07/24/22 07:30 98.4 F 63 18 153/96 95 07/24/22 05:19 99.4 F 07/24/22 04:16 77 16 148/84 98 07/24/22 03:12 100.5 F H 92 18 142/78 94 L Intake and Output 07/23/22 07/24/22 07/24/22 22:59 06:59 14:59 Other: Weight 92.986 kg 92.986 kg PHYSICAL EXAMINATION: Patient is lying in the bed comfortably, no acute distress, awake alert and oriented.. Patient is lethargic and weak. HEENT: Normocephalic. Neck is supple. Pupils reactive. Nostrils clear. Oral cavity is moist. Neck reveals no JVD, carotid bruits, or thyromegaly. CHEST EXAMINATION: Trachea is central. Symmetrical expansion. Lung fierro clear to auscultation and percussion. Scattered coarse sounds. CARDIAC: Normal S1, S2 with no gallops. No murmurs ABDOMEN: Soft. Bowel sounds present. Nontender. No organomegaly. No abdominal bruits. Extremities: reveal no edema. No clubbing or cyanosis Neurologically awake, alert, oriented x3 with well-coordinated movements. No focal deficits noted Skin: No rash or skin lesions. Psychiatric: Coperative. Nonsuicidal, Musculoskeletal: No joint swelling or deformity. Normal range of motion. Results CBC & Chem 7: 07/24/22 04:06 07/24/22 04:06 Labs: Abnormal Lab Results - Last 24 Hours (Table) 07/24/22 07/24/22 07/24/22 Range/Units 04:06 04:06 04:06 RBC 3.58 L (4.30-5.90) m/uL Hgb 10.8 L (13.0-17.5) gm/dL Hct 33.8 L (39.0-53.0) % RDW 16.5 H (11.5-15.5) % Lymphocytes # 0.8 L (1.0-4.8) k/uL Sodium 135 L (137-145) mmol/L Carbon Dioxide 18 L (22-30) mmol/L BUN 24 H (9-20) mg/dL Creatinine 1.35 H (0.66-1.25) mg/dL Glucose 227 H (74-99) mg/dL Plasma Lactic Acid Del 3.0 H* (0.7-2.0) mmol/L Magnesium 1.5 L (1.6-2.3) mg/dL Troponin I (0.000-0.034) ng/mL Coronavirus (PCR) (Not Detectd) 07/24/22 07/24/22 07/24/22 Range/Units 04:06 04:44 07:41 RBC (4.30-5.90) m/uL Hgb (13.0-17.5) gm/dL Hct (39.0-53.0) % RDW (11.5-15.5) % Lymphocytes # (1.0-4.8) k/uL Sodium (137-145) mmol/L Carbon Dioxide (22-30) mmol/L BUN (9-20) mg/dL Creatinine (0.66-1.25) mg/dL Glucose (74-99) mg/dL Plasma Lactic Acid Del 0.6 L (0.7-2.0) mmol/L Magnesium (1.6-2.3) mg/dL Troponin I 0.040 H* (0.000-0.034) ng/mL Coronavirus (PCR) Detected A (Not Detectd) Thrombosis Risk Factor Assmnt - DVT/VTE Prophylaxis DVT/VTE Prophylaxis: Pharmacologic Prophylaxis ordered - Choose All That Apply Any of the Below Risk Factors Present?: Yes Each Factor Represents 1 point: Acute NH, Obesity (BMI >25) Other Risk Factors: Yes Each Risk Factor Represents 2 Points: Age 61-74 years Other congenital or acquired thrombophilia - If yes, enter type in comment: No Thrombosis Risk Factor Assessment Total Risk Factor Score: 4 Thrombosis Risk Factor Assessment Level: Moderate Risk Assessment and Plan Assessment: Generalized weakness cough congestion mild shortness of breath secondary acute COVID-19 infection Acute COVID-19 infection Mildly elevated troponin level likely due to infection possible type II NH Lactic acidosis Hypomagnesemia Acute kidney injury likely prerenal Hyperglycemia DVT prophylactic Lovenox subcu Plan: Patient will be continued on IV hydration with normal saline. Oxygen supplementation as needed. Continue with multivitamin supplementation. DVT prophylaxis Lovenox subcu Patient will be started back on aspirin and statins and cardiology was consulted due to elevated troponin level. 2D echocardiogram was ordered. Follow-up inflammatory markers and supportive care. Prognosis is guarded at this time. Time with Patient: Greater than 30
--- NOTE | 2022-07-25 08:27 | XR ---
EXAMINATION TYPE: XR chest 1V DATE OF EXAM: 07/25/2022 COMPARISON: Chest x-ray 03/26/2022 HISTORY: Covid infection TECHNIQUE: Single frontal view of the chest is obtained. FINDINGS: There is no focal air space opacity, pleural effusion, or pneumothorax seen. Minimal densi ty at the left costophrenic angle is a stable finding. The cardiac silhouette size is stable. There are overlying leads. The osseous structures are intact. IMPRESSION: No acute process. Stable exam.
[2022-07-25 08:59] LABS: Anisocytosis Slight; Basophils % (A) 1 %; Eosinophils % (A) 1 %; HGB 11.1 gm/dL (13.0-17.5); Hypochromasia Slight; Lymphocytes % (A) 29 %; MCHC 30.9 g/dL (31.0-37.0); MCV 96.8 fL (80.0-100.0); Mean Platelet Volume 7.6; Monocytes % (A) 5 %; Neutrophils % (A) 62 %; Platelet Count 211 k/uL (150-450); RBC 3.71 m/uL (4.30-5.90); RDW 16.7 % (11.5-15.5)
[2022-07-25 09:00] LABS: Lymphocytes # (A) 2.1 k/uL (1.0-4.8); Monocytes # (A) 0.4 k/uL (0-1.0); Neutrophils # (A) 4.4 k/uL (1.3-7.7)
[2022-07-25 09:16] LABS: C Reactive Protein 4.6 mg/dL (<1.0); Calcium 8.6 mg/dL (8.4-10.2); Magnesium 1.6 mg/dL (1.6-2.3); Potassium 3.7 mmol/L (3.5-5.1)
[2022-07-25] MEDS: ZINC SULFATE 220 MG CAP PO SCH (09:22)
[2022-07-25] MEDS: PANTOPRAZOLE 40 MG/10 ML VIAL IV SCH (09:22)
[2022-07-25] MEDS: CHOLECALCIFEROL 25 MCG (1000 IU) TABLET PO SCH (09:22)
[2022-07-25] MEDS: ASPIRIN 81 MG PO SCH (09:22)
[2022-07-25] MEDS: ENOXAPARIN 40 MG/0.4 ML SYRINGE SQ SCH (09:22)
[2022-07-25] MEDS: ASCORBIC ACID 500 MG TAB PO SCH (09:22)
[2022-07-25] MEDS: CLOPIDOGREL 75 MG TAB PO SCH (09:22)
[2022-07-25] MEDS: amLODIPine 5 MG TAB PO SCH (09:22)
[2022-07-25] MEDS: SERTRALINE 50 MG TAB PO SCH (09:22)
[2022-07-25] MEDS: FAMOTIDINE 20 MG TAB PO SCH ×2 (09:22→21:09)
[2022-07-25] MEDS: SODIUM CHLORIDE 0.9% 1,000 ML IV SCH ×2 (09:23→21:08)
--- NOTE | 2022-07-25 09:49 | CA ---
Transthoracic Echo Report Name: Abram Sesay Age: 71 Gender: M : 1950 Exam Date: 07/24/2022 13:57 Exam Location: [facility] Ht (in): 74 Wt (lb): 205 Ordering Physician: Ross Null MD Attending/Referring Phys: Validation Leader Taylor Bentley RDCS Procedure CPT: Indications: LV function Cardiac Hx: Technical Quality: Fair Contrast 1: Total Dose (mL): Contrast 2: Total Dose (mL): MEASUREMENTS (Male / Female) Normal Values 2D ECHO LV Diastolic Diameter PLAX 4.1 cm 4.2 - 5.9 / 3.9 - 5.3 cm LV Systolic Diameter PLAX 2.9 cm IVS Diastolic Thickness 1.6 cm 0.6 - 1.0 / 0.6 - 0.9 cm LVPW Diastolic Thickness 1.8 cm 0.6 - 1.0 / 0.6 - 0.9 cm LV Relative Wall Thickness 0.8 LA Volume 76.1 cm??? 18 - 58 / 22 - 52 cm??? FINDINGS Left Ventricle Limited study. Moderately increased left ventricular wall thickness. Normal left ventricular systolic function with no obvious regional wall motion abnormalities. Left ventricular ejection fraction is estimated at 55-60 %. Right Ventricle Right Atrium Left Atrium Moderately increased left atrial volume. Mitral Valve Structurally normal mitral valve. Mild mitral annular calcification. Mild-to- moderate mitral regurgitation. Aortic Valve Trileaflet aortic valve. Aortic valve sclerosis. No aortic stenosis. No aortic regurgitation. Tricuspid Valve Structurally normal tricuspid valve. Mild tricuspid regurgitation. Pulmonic Valve Pericardium No pericardial effusion. Aorta CONCLUSIONS Normal left ventricular dimension and systolic function [id number] mitral regurgitation Previewed by: Dr. Baron Moctezuma MD (Electronically Signed) Final Date: 25 July 2022 09:48
--- NOTE | 2022-07-25 12:02 | P.PN ---
Subjective This is a pleasant 71-year-old male past medical history significant for CVA, hypertension, dyslipidemia and dysautonomia. He follows in the office with [facility]. We have been asked to see in consultation for EKG changes. He presented to the hospital with symptoms of cough, fever, chills. He was found to be covid-19 positive. He denies any chest pain, palpitations, shortness of breath, symptoms of orthopnea or PND. He did not know he had Covid. Overall his symptoms have slightly improved. Vital signs are stable. He denies any chest discomfort. He denies history of CAD, NM, or diabetes. He is a former smoker. DIAGNOSTICS * EKG reveals sinus rhythm, heart rate 86, non-specific T wave abnormality. T wave inversions in lead V4-V6 * Loop recorder device interrogation in the office has not revealed any acute arrhythmias * Laboratory data reviewed, initial troponin 0.04, repeat negative, Covid 19 positive, WBC 0.3, hemoglobin 10.8, platelets 220, sodium 135, potassium 3.5, BUN 24, serum creatinine 1.3, lactate 3 * Current daily cardiac medications include amlodipine 10 mg daily, aspirin 81 mg daily, Plavix 75 mg daily, atorvastatin 80 mg nightly * Most recent echocardiogram obtained 10/2020 revealed preserved LV systolic function with EF 55-60%, moderate LVH and mild MR. 07/25 Patient seen and examined at bedside, no acute distress. He continues to have cough. He denies any chest pain or shortness of breath. Echocardiogram revealed EF 5560 percent, mild to moderate mitral regurgitation, mild tricuspid regurgitation. Vital signs are stable. PHYSICAL EXAMINATION Vitals reviewed CONSTITUTIONAL: No apparent distress. HEENT: Neck Supple No JVD. CHEST EXAMINATION: Lungs are rhonchi bilaterally to auscultation. HEART EXAMINATION: Regular rate and rhythm. S1, S2 heard ABDOMEN: Soft, nontender. EXTREMITIES: no lower extremity edema NEUROLOGIC EXAMINATION: Patient is awake, alert and oriented x3. ASSESSMENT Symptoms of cough, fever, chills Covid-19 infection Elevated troponin 0.04 x 1, repeat negative, likely secondary to infectious process, patient without chest pain Lactic acidosis Hypertension History of Dysautonomia Dyslipidemia History of CVA Chronic kidney disease PLAN Continue home cardiac medications Patient asymptomatic without angina symptoms and minimal troponin elevation. Echocardiogram revealed EF 5560% No further changes from cardiology perspective, we'll follow the patient as needed. Please reconsult if needed. Patient to follow up outpatient with Dr. Moctezuma. Nurse Practitioner note has been reviewed, I agree with a documented findings and plan of care. Patient was seen and examined. Objective - Vital Signs Vital signs: Vital Signs Temp 98.8 F 07/25/22 09:20 Pulse 76 07/25/22 09:20 Resp 16 07/25/22 09:20 BP 137/78 07/25/22 09:20 Pulse Ox 95 07/25/22 09:20 FiO2 Intake & Output 07/24/22 07/25/22 07/25/22 18:59 06:59 18:59 Intake Total 950 120 Output Total 500 Balance 450 120 Weight 92.986 kg Intake: Intake, IV Titration 950 Amount Sodium Chloride 0.9% 1, 950 000 ml @ 75 mls/hr IV . [id number] [facility] Rx#:[id number] Oral 120 Output: Urine 500 Other: Voiding Method Bedpan # Voids 2 - Labs CBC & Chem 7: 07/25/22 08:09 07/25/22 08:09 Labs: Abnormal Lab Results - Last 24 Hours (Table) 07/24/22 07/25/22 07/25/22 Range/Units 21:35 08:09 08:09 RBC 3.71 L (4.30-5.90) m/uL Hgb 11.1 L (13.0-17.5) gm/dL Hct 36.0 L (39.0-53.0) % MCHC 30.9 L (31.0-37.0) g/dL RDW 16.7 H (11.5-15.5) % C-Reactive Protein 4.6 H (<1.0) mg/dL Urine Protein 1+ H (Negative) Urine Glucose (UA) 1+ H (Negative) Urine Bacteria Few H (None) /hpf Urine Mucus Rare H (None) /hpf
[2022-07-25 13:00] VITALS: BMI 26.3
[2022-07-25] MEDS: ATORVASTATIN 80 MG TAB PO SCH (21:09)
[2022-07-26] MEDS: PANTOPRAZOLE 40 MG TABLET PO SCH (06:50)
[2022-07-26] MEDS: CHOLECALCIFEROL 25 MCG (1000 IU) TABLET PO SCH (08:52)
[2022-07-26] MEDS: ASPIRIN 81 MG PO SCH (08:52)
[2022-07-26] MEDS: SERTRALINE 50 MG TAB PO SCH (08:52)
[2022-07-26] MEDS: ENOXAPARIN 40 MG/0.4 ML SYRINGE SQ SCH (08:52)
[2022-07-26] MEDS: ASCORBIC ACID 500 MG TAB PO SCH (08:52)
[2022-07-26] MEDS: FAMOTIDINE 20 MG TAB PO SCH ×2 (08:52→21:35)
[2022-07-26] MEDS: SODIUM CHLORIDE 0.9% 1,000 ML IV SCH (08:52)
[2022-07-26] MEDS: CLOPIDOGREL 75 MG TAB PO SCH (08:52)
[2022-07-26] MEDS: ZINC SULFATE 220 MG CAP PO SCH (08:52)
[2022-07-26] MEDS: amLODIPine 5 MG TAB PO SCH (08:52)
[2022-07-26] MEDS: ATORVASTATIN 80 MG TAB PO SCH (21:35)
[2022-07-27 06:05] VITALS: RESP 16; TEMP 98.4
[2022-07-27] MEDS: SODIUM CHLORIDE 0.9% 1,000 ML IV SCH ×2 (06:47→14:48)
[2022-07-27] MEDS: PANTOPRAZOLE 40 MG TABLET PO SCH (06:48)
[2022-07-27 08:22] LABS: Calcium 8.1 mg/dL (8.4-10.2); Potassium 3.2 mmol/L (3.5-5.1)
[2022-07-27] MEDS: SERTRALINE 50 MG TAB PO SCH (08:24)
[2022-07-27] MEDS: CHOLECALCIFEROL 25 MCG (1000 IU) TABLET PO SCH (08:24)
[2022-07-27] MEDS: ZINC SULFATE 220 MG CAP PO SCH (08:24)
[2022-07-27] MEDS: ENOXAPARIN 40 MG/0.4 ML SYRINGE SQ SCH (08:24)
[2022-07-27] MEDS: CLOPIDOGREL 75 MG TAB PO SCH (08:24)
[2022-07-27] MEDS: amLODIPine 5 MG TAB PO SCH (08:24)
[2022-07-27] MEDS: ASPIRIN 81 MG PO SCH (08:24)
[2022-07-27] MEDS: ASCORBIC ACID 500 MG TAB PO SCH (08:24)
[2022-07-27] MEDS: FAMOTIDINE 20 MG TAB PO SCH (08:24)
[2022-07-27 08:28] LABS: Anisocytosis Slight; Basophils % (A) 1 %; Eosinophils # (A) 0.1 k/uL (0-0.7); Eosinophils % (A) 2 %; HCT 31.8 % (39.0-53.0); HGB 10.1 gm/dL (13.0-17.5); Hypochromasia Slight; Lymphocytes # (A) 1.4 k/uL (1.0-4.8); Lymphocytes % (A) 31 %; MCH 29.9 pg (25.0-35.0); MCHC 31.9 g/dL (31.0-37.0); MCV 93.9 fL (80.0-100.0); Mean Platelet Volume 7.9; Monocytes # (A) 0.3 k/uL (0-1.0); Monocytes % (A) 6 %; Neutrophils # (A) 2.6 k/uL (1.3-7.7); Neutrophils % (A) 59 %; Platelet Count 217 k/uL (150-450); RBC 3.39 m/uL (4.30-5.90); WBC 4.5 k/uL (3.8-10.6)
[2022-07-27 08:30] VITALS: BP 156/82; PULSE 62
[2022-07-27] MEDS ORDERED: Potassium Replacement Protocol 1 EACH MISC MISCELLANE PRN (11:14)
[2022-07-27] MEDS: POTASSIUM CHLORIDE ER 20 MEQ TAB.ER PO SCH ×2 (12:10→13:00)
--- NOTE | 2022-07-28 12:27 | CDI ---
Documentation Clarification Form Date: 07/28/22 From: Chrissy Aguilar Admit Date: 07/24/2022 05:35:00 AM Patient Name: Abram Sesay Visit Number: [id number] Discharge Date: 07/27/2022 04:14:00 PM ATTENTION: The Clinical Documentation Specialists (CDI) and [facility] Coding Staff appreciate your assistance in clarifying documentation. Please respond to the clarification below the line at the bottom and electronically sign. The CDI & [facility] Coding staff will review the response and follow-up if needed. Please note: Queries are made part of the Legal Health Record. If you have any questions, please contact the author of this message via ITS. Dr. Ross Null, Elevated troponin level like due to infection possible Type II myocardial infarction (NV) is documented in the H&P. Additional clarification regarding the type of NV is requested. History/Risk Factors: COVID, acidosis, left hemiplegia following stroke, JENNIFER, HTN w CKD III, COPD, hypomagnesemia, hyperglycemia, dysautonomia Clinical Indicators: Denies chest pain, palpitations , shortness of breath symptoms. No hx of CAD NV or diabetes. Former smoker. Troponin: 0.040, 0.019, 0.039 EKG Results: Sinus rhythm, heart rate 86, non-specific T wave abnormality. Per consult: Elevated troponin 0.04 x 1, repeat negative, likely secondary to infectious process, patient without chest pain. Treatment: Echo Please clarify the type of NV, if known: [ ] NSTEMI (type 1) [ x ] Type II NV due to (please specify etiology) _covid [ ] Unable to determine [ ] Other Condition, please specify MTDD
== END 2022-07-27 16:14 | disposition home health service (06) | DRG 177 ==
LOC: EC 03:10 → 3SCARD 05:35
PROVIDERS: ADMIT Hospitalist; ATTEND Hospitalist
DX: U07.1 COVID-19 (principal); I21.A1 Myocardial infarction type 2; E87.2 Acidosis; I69.354 Hemiplegia and hemiparesis following cerebral infarction affecting left non-dominant side; N17.9 Acute kidney failure, unspecified; I12.9 Hypertensive chronic kidney disease with stage 1 through stage 4 chronic kidney disease, or unspecified chronic kidney disease; N18.30 Chronic kidney disease, stage 3 unspecified; J44.9 Chronic obstructive pulmonary disease, unspecified; G90.1 Familial dysautonomia [Riley-Day]; E83.42 Hypomagnesemia; R73.9 Hyperglycemia, unspecified; E78.5 Hyperlipidemia, unspecified; G47.33 Obstructive sleep apnea (adult) (pediatric); K21.9 Gastro-esophageal reflux disease without esophagitis; N40.0 Benign prostatic hyperplasia without lower urinary tract symptoms; M19.90 Unspecified osteoarthritis, unspecified site; Z79.82 Long term (current) use of aspirin; Z79.02 Long term (current) use of antithrombotics/antiplatelets; Z79.899 Other long term (current) drug therapy; Z87.440 Personal history of urinary (tract) infections; Z96.651 Presence of right artificial knee joint; Z87.891 Personal history of nicotine dependence
CPT/HCPCS: 36415; 71045; 80048; 80053; 81001; 83605; 83615; 83735; 83880; 84484; 85025; 85610; 85730; 86140; 87502; 87635; 93005; 93308; 96361; 96365; 96366; 96367; 96372; 96375; 99285

== ENCOUNTER 2022-08-27 22:01 | Emergency (ER) | payer MEDICARE, OTHER ==
[2022-08-27] MEDS ORDERED: SODIUM CHLORIDE 0.9% 1,000 ML IV STA (22:05)
--- NOTE | 2022-08-27 22:17 | ED ---
Syncope HPI - General Stated Complaint: Syncope Time Seen by Provider: 08/27/22 22:03 Source: RN notes reviewed, old records reviewed Mode of arrival: EMS Limitations: no limitations - History of Present Illness Initial Comments: This is a 71-year-old male to the emergency department for evaluation. He is well-known to this emergency prior. Patient comes emergency for today for evaluation regards to syncopal event. Syncopal event is just prior to arrival. Per EMS they were called to the patient's house for unresponsive episode. Patient on arrival had low blood pressure although they say his symptoms of significant improved during transport and at bedside states patient is normal, per patient has no current complaints no headache chest pain shortness breath or abdominal pain. MD Complaint: loss of consciousness, other (Decreased level responsiveness) -: minutes(s) Prodromal Symptoms: lightheaded -: second(s) Witnessed: yes - by bystander Injuries Sustained Associated with Event: None Current Symptoms: back to baseline History: previous syncopal episode Context: at rest Treatments Prior to Arrival: none - Related Data Home Medications Medication Instructions Recorded Confirmed Atorvastatin [Lipitor] 80 mg PO HS 05/26/17 07/24/22 Aspirin EC [Ecotrin Low Dose] 81 mg PO DAILY 02/12/18 07/24/22 calcitrioL [Calcitriol] 0.25 mcg PO SUTUTHSA 10/07/18 07/24/22 Clopidogrel [Plavix] 75 mg PO DAILY 12/08/19 07/24/22 Famotidine [Pepcid] 20 mg PO BID 11/18/20 07/24/22 Sertraline HCl [Zoloft] 50 mg PO DAILY 11/18/20 07/24/22 amLODIPine [Norvasc] 5 mg PO DAILY 05/24/22 07/24/22 Ascorbic Acid [Vitamin C] 1,000 mg PO DAILY 07/24/22 07/24/22 Ferrous Sulfate [Iron (65 MG 325 mg PO DAILY 07/24/22 07/24/22 Elemental)] Melatonin [Melatonin ER] 10 mg PO HS 07/24/22 07/24/22 Zinc Gluconate [Zinc] 50 mg PO DAILY 07/24/22 07/24/22 Allergies Allergy/AdvReac Type Severity Reaction Status Date / Time No Known Allergies Allergy Verified 08/27/22 22:31 Review of Systems ROS Statement: Those systems with pertinent positive or pertinent negative responses have been documented in the HPI. ROS Other: All systems not noted in ROS Statement are negative. 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 Loop recorder removed 12/30/21. History of Any Multi-Drug Resistant Organisms: None Reported Past Surgical History: Hernia Repair, Joint Replacement Additional Past Surgical History / Comment(s): 06/01/17 intracranial angioplasty- (pt stated "he has stents') HFH, EGD with peg tube insertion since removed, R inguinal hernia repair, R total knee arthroplasty, colonoscopies with last one in 2019-normal., soniya eye cat sx, loop recorder since removed. Past Anesthesia/Blood Transfusion Reactions: No Reported Reaction Past Psychological History: No Psychological Hx Reported Smoking Status: Former smoker Past Alcohol Use History: None Reported Past Drug Use History: None Reported - Past Family History Mother Family Medical History: CVA/TIA, Diabetes Mellitus, Hyperlipidemia, Hypertension Father Family Medical History: CVA/TIA, Hypertension General Exam General appearance: alert, in no apparent distress Head exam: Present: atraumatic, normocephalic, normal inspection Eye exam: Present: normal appearance, PERRL, EOMI. Absent: scleral icterus, conjunctival injection, periorbital swelling ENT exam: Present: normal exam, mucous membranes moist Neck exam: Present: normal inspection. Absent: tenderness, meningismus, lymphadenopathy Respiratory exam: Present: normal lung sounds bilaterally. Absent: respiratory distress, wheezes, rales, rhonchi, stridor Cardiovascular Exam: Present: regular rate, normal rhythm, normal heart sounds. Absent: systolic murmur, diastolic murmur, rubs, gallop, clicks GI/Abdominal exam: Present: soft, normal bowel sounds. Absent: distended, tenderness, guarding, rebound, rigid Extremities exam: Present: normal inspection, full ROM, normal capillary refill. Absent: tenderness, pedal edema, joint swelling, calf tenderness Back exam: Present: normal inspection Neurological exam: Present: alert, oriented X3, CN II-XII intact Psychiatric exam: Present: normal affect, normal mood Skin exam: Present: warm, dry, intact, normal color. Absent: rash Course Vital Signs 08/27/22 22:24 Temperature 98 F Pulse Rate 70 Respiratory 19 Rate Blood Pressure 114/60 O2 Sat by Pulse 98 Oximetry - Reevaluation(s) Reevaluation #1: 08/27/22 23:08 Medical records reviewed Reevaluation #2: 08/28/22 Patient feeling much improved with IV hydration here in the emergency department Reevaluation #3: 08/28/22 Patient has no recurrent syncopal events here in the emergency department EKG Findings - EKG Comments: EKG Findings:: EKG is sinus 77 PA 106 QRS 86 QTC 378 Medical Decision Making - Medical Decision Making 71 male to the emergency department for evaluation patient does have syncopal event unresponsiveness prior to arrival symptoms are resolved patient feels improved and can be discharged home - Lab Data Result diagrams: 08/27/22 23:04 08/28/22 00:30 Lab Results 08/27/22 08/27/22 08/27/22 Range/Units 23:04 23:04 23:04 WBC 7.6 (3.8-10.6) k/uL RBC 3.57 L (4.30-5.90) m/uL Hgb 10.9 L (13.0-17.5) gm/dL Hct 34.0 L (39.0-53.0) % MCV 95.3 (80.0-100.0) fL MCH 30.6 (25.0-35.0) pg MCHC 32.1 (31.0-37.0) g/dL RDW 17.3 H (11.5-15.5) % Plt Count 250 (150-450) k/uL MPV 7.8 Neutrophils % 77 % Lymphocytes % 12 % Monocytes % 6 % Eosinophils % 2 % Basophils % 1 % Neutrophils # 5.8 (1.3-7.7) k/uL Lymphocytes # 0.9 L (1.0-4.8) k/uL Monocytes # 0.5 (0-1.0) k/uL Eosinophils # 0.1 (0-0.7) k/uL Basophils # 0.0 (0-0.2) k/uL Hypochromasia Slight Anisocytosis Slight PT 10.2 (9.0-12.0) sec INR 0.9 (<1.2) APTT 21.1 L (22.0-30.0) sec D-Dimer 0.55 (<0.60) mg/L FEU Sodium (137-145) mmol/L Potassium (3.5-5.1) mmol/L Chloride (98-107) mmol/L Carbon Dioxide (22-30) mmol/L Anion Gap mmol/L BUN (9-20) mg/dL Creatinine (0.66-1.25) mg/dL Est GFR (CKD-EPI)AfAm (>60 ml/min/1.73 sqM) Est GFR (CKD-EPI)NonAf (>60 ml/min/1.73 sqM) Glucose (74-99) mg/dL Plasma Lactic Acid Del (0.7-2.0) mmol/L Calcium (8.4-10.2) mg/dL Phosphorus (2.5-4.5) mg/dL Magnesium (1.6-2.3) mg/dL Total Bilirubin (0.2-1.3) mg/dL AST (17-59) U/L ALT (4-49) U/L Alkaline Phosphatase (38-126) U/L Troponin I <0.012 (0.000-0.034) ng/mL NT-Pro-B Natriuret Pep pg/mL Total Protein (6.3-8.2) g/dL Albumin (3.5-5.0) g/dL 08/27/22 08/27/22 08/28/22 Range/Units 23:04 23:43 00:30 WBC (3.8-10.6) k/uL RBC (4.30-5.90) m/uL Hgb (13.0-17.5) gm/dL Hct (39.0-53.0) % MCV (80.0-100.0) fL MCH (25.0-35.0) pg MCHC (31.0-37.0) g/dL RDW (11.5-15.5) % Plt Count (150-450) k/uL MPV Neutrophils % % Lymphocytes % % Monocytes % % Eosinophils % % Basophils % % Neutrophils # (1.3-7.7) k/uL Lymphocytes # (1.0-4.8) k/uL Monocytes # (0-1.0) k/uL Eosinophils # (0-0.7) k/uL Basophils # (0-0.2) k/uL Hypochromasia Anisocytosis PT (9.0-12.0) sec INR (<1.2) APTT (22.0-30.0) sec D-Dimer (<0.60) mg/L FEU Sodium 139 (137-145) mmol/L Potassium 4.0 (3.5-5.1) mmol/L Chloride 105 (98-107) mmol/L Carbon Dioxide 24 (22-30) mmol/L Anion Gap 10 mmol/L BUN 17 (9-20) mg/dL Creatinine 1.52 H (0.66-1.25) mg/dL Est GFR (CKD-EPI)AfAm 52 (>60 ml/min/1.73 sqM) Est GFR (CKD-EPI)NonAf 45 (>60 ml/min/1.73 sqM) Glucose 130 H (74-99) mg/dL Plasma Lactic Acid Del 1.7 (0.7-2.0) mmol/L Calcium 8.7 (8.4-10.2) mg/dL Phosphorus 3.1 (2.5-4.5) mg/dL Magnesium 1.8 (1.6-2.3) mg/dL Total Bilirubin 0.2 (0.2-1.3) mg/dL AST 24 (17-59) U/L ALT 27 (4-49) U/L Alkaline Phosphatase 114 (38-126) U/L Troponin I (0.000-0.034) ng/mL NT-Pro-B Natriuret Pep 226 pg/mL Total Protein 6.4 (6.3-8.2) g/dL Albumin 3.8 (3.5-5.0) g/dL Disposition Clinical Impression: Syncope due to orthostatic hypotension, Vasovagal syncope, Dehydration Disposition: HOME SELF-CARE Condition: Good Instructions (If sedation given, give patient instructions): Dehydration (ED), Syncope (ED) Is patient prescribed a controlled substance at d/c from ED?: No Referrals: Rick Luke MD [Primary Care Provider] - 1-2 days
[2022-08-27 22:34] VITALS: BP 114/60; PULSE 70; RESP 19; TEMP 98
[2022-08-27 23:17] LABS: Anisocytosis Slight; Basophils % (A) 1 %; Eosinophils # (A) 0.1 k/uL (0-0.7); Eosinophils % (A) 2 %; HGB 10.9 gm/dL (13.0-17.5); Hypochromasia Slight; Lymphocytes # (A) 0.9 k/uL (1.0-4.8); Lymphocytes % (A) 12 %; MCH 30.6 pg (25.0-35.0); MCHC 32.1 g/dL (31.0-37.0); MCV 95.3 fL (80.0-100.0); Mean Platelet Volume 7.8; Monocytes # (A) 0.5 k/uL (0-1.0); Monocytes % (A) 6 %; Neutrophils # (A) 5.8 k/uL (1.3-7.7); Neutrophils % (A) 77 %; Platelet Count 250 k/uL (150-450); RBC 3.57 m/uL (4.30-5.90); RDW 17.3 % (11.5-15.5); WBC 7.6 k/uL (3.8-10.6)
[2022-08-27 23:38] LABS: INR 0.9 (<1.2); Prothrombin Time 10.2 sec (9.0-12.0)
[2022-08-27 23:51] LABS: Partial Thromboplastin Time 21.1 sec (22.0-30.0)
[2022-08-28 01:09] LABS: Albumin 3.8 g/dL (3.5-5.0); Calcium 8.7 mg/dL (8.4-10.2); Magnesium 1.8 mg/dL (1.6-2.3); Phosphorus 3.1 mg/dL (2.5-4.5); Total Bilirubin 0.2 mg/dL (0.2-1.3); Total Protein 6.4 g/dL (6.3-8.2)
== END 2022-08-28 01:16 | disposition home or self-care (01) ==
LOC: EC 22:01
DX: I95.1 Orthostatic hypotension (principal); J44.9 Chronic obstructive pulmonary disease, unspecified; K21.9 Gastro-esophageal reflux disease without esophagitis; E78.5 Hyperlipidemia, unspecified; I10 Essential (primary) hypertension; M19.90 Unspecified osteoarthritis, unspecified site; G47.30 Sleep apnea, unspecified; Z87.891 Personal history of nicotine dependence; Z79.02 Long term (current) use of antithrombotics/antiplatelets; Z79.811 Long term (current) use of aromatase inhibitors
CPT/HCPCS: 36415; 80053; 83605; 83735; 83880; 84100; 84484; 85025; 85379; 85610; 85730; 93005; 96360; 96361; 99285

== ENCOUNTER 2023-01-24 05:05 | Emergency (ER) | payer MEDICARE, OTHER ==
[2023-01-24 05:17] VITALS: RESP 18; TEMP 98.5
[2023-01-24 05:43] LABS: Anisocytosis Slight; Basophils % (A) 1 %; Eosinophils # (A) 0.2 k/uL (0-0.7); Eosinophils % (A) 3 %; HCT 33.2 % (39.0-53.0); HGB 10.8 gm/dL (13.0-17.5); Lymphocytes # (A) 2.1 k/uL (1.0-4.8); Lymphocytes % (A) 32 %; MCH 29.3 pg (25.0-35.0); MCHC 32.6 g/dL (31.0-37.0); Mean Platelet Volume 7.8; Monocytes # (A) 0.4 k/uL (0-1.0); Monocytes % (A) 6 %; Neutrophils # (A) 3.5 k/uL (1.3-7.7); Neutrophils % (A) 55 %; Platelet Count 310 k/uL (150-450); RBC 3.69 m/uL (4.30-5.90); RDW 17.4 % (11.5-15.5); WBC 6.4 k/uL (3.8-10.6)
--- NOTE | 2023-01-24 05:47 | ED ---
General Adult HPI - General Chief complaint: Shortness of Breath Stated complaint: Hypertension Time Seen by Provider: 01/24/23 05:08 Source: patient, EMS, RN notes reviewed, old records reviewed Mode of arrival: EMS - History of Present Illness Initial comments: 72-year-old male presenting for evaluation of dyspnea and high blood pressure. Patient states he had been checking his blood pressure at home and had several high readings. He denied associated chest pain. He has had some mild dyspnea and upper respiratory symptoms. No significant cough. No abdominal pain. No measured fever. - Related Data Home Medications Medication Instructions Recorded Confirmed Atorvastatin [Lipitor] 80 mg PO HS 05/26/17 07/24/22 Aspirin EC [Ecotrin Low Dose] 81 mg PO DAILY 02/12/18 07/24/22 calcitrioL [Calcitriol] 0.25 mcg PO SUTUTHSA 10/07/18 07/24/22 Clopidogrel [Plavix] 75 mg PO DAILY 12/08/19 07/24/22 Famotidine [Pepcid] 20 mg PO BID 11/18/20 07/24/22 Sertraline HCl [Zoloft] 50 mg PO DAILY 11/18/20 07/24/22 amLODIPine [Norvasc] 5 mg PO DAILY 05/24/22 07/24/22 Ascorbic Acid [Vitamin C] 1,000 mg PO DAILY 07/24/22 07/24/22 Ferrous Sulfate [Iron (65 MG 325 mg PO DAILY 07/24/22 07/24/22 Elemental)] Melatonin [Melatonin ER] 10 mg PO HS 07/24/22 07/24/22 Zinc Gluconate [Zinc] 50 mg PO DAILY 07/24/22 07/24/22 Allergies Allergy/AdvReac Type Severity Reaction Status Date / Time No Known Allergies Allergy Verified 08/27/22 22:31 Review of Systems ROS Statement: Those systems with pertinent positive or pertinent negative responses have been documented in the HPI. ROS Other: All systems not noted in ROS Statement are negative. 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 Loop recorder removed 12/30/21.dementia History of Any Multi-Drug Resistant Organisms: None Reported Past Surgical History: Hernia Repair, Joint Replacement Additional Past Surgical History / Comment(s): 06/01/17 intracranial angioplasty- (pt stated "he has stents') HFH, EGD with peg tube insertion since removed, R inguinal hernia repair, R total knee arthroplasty, colonoscopies with last one in 2019-normal., soniya eye cat sx, loop recorder since removed. Past Anesthesia/Blood Transfusion Reactions: No Reported Reaction Past Psychological History: No Psychological Hx Reported Smoking Status: Former smoker Past Alcohol Use History: None Reported Past Drug Use History: None Reported - Past Family History Mother Family Medical History: CVA/TIA, Diabetes Mellitus, Hyperlipidemia, Hypertension Father Family Medical History: CVA/TIA, Hypertension General Exam General appearance: alert, in no apparent distress Head exam: Present: atraumatic, normocephalic Eye exam: Present: normal appearance, PERRL ENT exam: Present: normal exam Neck exam: Present: normal inspection. Absent: tenderness, meningismus Respiratory exam: Present: normal lung sounds bilaterally. Absent: respiratory distress, wheezes, rales Cardiovascular Exam: Present: regular rate, normal rhythm GI/Abdominal exam: Present: soft. Absent: distended, tenderness, guarding Extremities exam: Present: normal inspection. Absent: normal capillary refill, pedal edema Neurological exam: Present: alert, oriented X3, CN II-XII intact. Absent: motor sensory deficit Psychiatric exam: Present: normal affect, normal mood Skin exam: Present: warm, dry, intact. Absent: cyanosis, diaphoretic Course Vital Signs 01/24/23 05:13 Temperature 98.5 F Pulse Rate 72 Respiratory 18 Rate Blood Pressure 153/97 O2 Sat by Pulse 100 Oximetry - Reevaluation(s) Reevaluation #1: 01/24/23 06:30 Patient has stable vitals, mild hypertension, 100% on room air without complaint at the time of my reevaluation. EKG Findings - EKG Comments: EKG Findings:: EKG: Sinus rhythm tremor artifact limiting assessment, narrow complex rate of 66, WA interval 180, QRS duration 98, QTC 4:15 - EKG Results: EKG: interpreted by LEEANNAD Medical Decision Making - Medical Decision Making Was pt. sent in by a medical professional or institution (, DEJA, [facility], urgent care, hospital, or retirement...) When possible be specific @ -No Did you speak to anyone other than the patient for history (EMS, parent, family, police, friend...)? What history was obtained from this source @ -No Did you review nursing and triage notes (agree or disagree)? Why? @ -I reviewed and agree with nursing and triage notes Were old charts reviewed (outside hosp., previous admission, EMS record, old EKG, old radiological studies, urgent care reports/EKG's, retirement records)? Report findings @ -Reviewed prior laboratory testing, prior admissions Differential Diagnosis (chest pain, altered mental status, abdominal pain women, abdominal pain men, vaginal bleeding, weakness, fever, dyspnea, syncope, headache, dizziness, GI bleed, back pain, seizure, CVA, palpatations, mental health, musculoskeletal)? @ -Differential Dyspnea: Coronary syndrome, arrhythmia, tamponade, asthma, COPD, pulmonary embolism, pneumonia, pneumothorax, pulmonary effusion, anaphylaxis, diabetic ketoacidosis, flailed chest, pulmonary contusion, diaphragmatic rupture, anemia, neuromuscular, this is not meant to be an all-inclusive list. EKG interpreted by me (3pts min.). @ -As above X-rays interpreted by me (1pt min.). @ -Chest x-ray reviewed by myself, negative for acute cardiopulmonary findings. CT interpreted by me (1pt min.). @ -None done U/S interpreted by me (1pt. min.). @ -None done What testing was considered but not performed or refused? (CT, X-rays, U/S, labs)? Why? @ -None What meds were considered but not given or refused? Why? @ -None Did you discuss the management of the patient with other professionals (professionals i.e. DEJA Cosme, [facility], lab, RT, psych nurse, transition social worker, instrumentation technician, teacher, control officer, casework specialist)? Give summary @ -No Was smoking cessation discussed for >3mins.? @ -No Was critical care preformed (if so, how long)? @ -No Were there social determinants of health that impacted care today? How? (Homelessness, low income, unemployed, alcoholism, drug addiction, transportation, low edu. Level, literacy, decrease access to med. care, [facility]ci, rehab)? @ -No Was there de-escalation of care discussed even if they declined (Discuss DNR or withdrawal of care, Hospice)? DNR status @ -No What co-morbidities impacted this encounter? (DM, HTN, Smoking, COPD, CAD, Cancer, CVA, ARF, Chemo, Hep., AIDS, mental health diagnosis, sleep apnea, morbid obesity)? @ -None Was patient admitted / discharged? Hospital course, mention meds given and route, prescriptions, significant lab abnormalities, going to OR and other pertinent info. @ -72-year-old male presenting with an episode of dyspnea and concern about his blood pressure. Blood pressure is mildly elevated. His lungs were clear. Chest x-ray shows no acute process. He has a stable chronic anemia. Normal white blood cell count, normal CMP, negative troponin, negative BNP. Patient will monitor blood pressure and follow with his primary care physician. Undiagnosed new problem with uncertain prognosis? @ -No Drug Therapy requiring intensive monitoring for toxicity (Heparin, Nitro, Insulin, Cardizem)? @ -No Were any procedures done? @ -No Diagnosis/symptom? @ -Hypertension Acute, or Chronic, or Acute on Chronic? @ -Chronic Uncomplicated (without systemic symptoms) or Complicated (systemic symptoms)? @ -Complicated - Lab Data Result diagrams: 01/24/23 05:36 01/24/23 05:36 Lab Results 01/24/23 01/24/23 01/24/23 Range/Units 05:36 05:36 05:36 WBC 6.4 (3.8-10.6) k/uL RBC 3.69 L (4.30-5.90) m/uL Hgb 10.8 L (13.0-17.5) gm/dL Hct 33.2 L (39.0-53.0) % MCV 90.0 (80.0-100.0) fL MCH 29.3 (25.0-35.0) pg MCHC 32.6 (31.0-37.0) g/dL RDW 17.4 H (11.5-15.5) % Plt Count 310 (150-450) k/uL MPV 7.8 Neutrophils % 55 % Lymphocytes % 32 % Monocytes % 6 % Eosinophils % 3 % Basophils % 1 % Neutrophils # 3.5 (1.3-7.7) k/uL Lymphocytes # 2.1 (1.0-4.8) k/uL Monocytes # 0.4 (0-1.0) k/uL Eosinophils # 0.2 (0-0.7) k/uL Basophils # 0.0 (0-0.2) k/uL Anisocytosis Slight PT 9.8 (9.0-12.0) sec INR 0.9 (<1.2) APTT 25.3 (22.0-30.0) sec Sodium 139 (137-145) mmol/L Potassium 3.8 (3.5-5.1) mmol/L Chloride 105 (98-107) mmol/L Carbon Dioxide 28 (22-30) mmol/L Anion Gap 6 mmol/L BUN 21 H (9-20) mg/dL Creatinine 1.48 H (0.66-1.25) mg/dL Est GFR (CKD-EPI)AfAm 54 (>60 ml/min/1.73 sqM) Est GFR (CKD-EPI)NonAf 46 (>60 ml/min/1.73 sqM) Glucose 96 (74-99) mg/dL Calcium 9.3 (8.4-10.2) mg/dL Total Bilirubin 0.3 (0.2-1.3) mg/dL AST 20 (17-59) U/L ALT 22 (4-49) U/L Alkaline Phosphatase 121 (38-126) U/L Troponin I (0.000-0.034) ng/mL NT-Pro-B Natriuret Pep pg/mL Total Protein 7.3 (6.3-8.2) g/dL Albumin 4.0 (3.5-5.0) g/dL Influenza Type A (PCR) (Not Detectd) Influenza Type B (PCR) (Not Detectd) RSV (PCR) (Not Detectd) SARS-CoV-2 (PCR) (Not Detectd) 01/24/23 01/24/23 01/24/23 Range/Units 05:36 05:36 05:36 WBC (3.8-10.6) k/uL RBC (4.30-5.90) m/uL Hgb (13.0-17.5) gm/dL Hct (39.0-53.0) % MCV (80.0-100.0) fL MCH (25.0-35.0) pg MCHC (31.0-37.0) g/dL RDW (11.5-15.5) % Plt Count (150-450) k/uL MPV Neutrophils % % Lymphocytes % % Monocytes % % Eosinophils % % Basophils % % Neutrophils # (1.3-7.7) k/uL Lymphocytes # (1.0-4.8) k/uL Monocytes # (0-1.0) k/uL Eosinophils # (0-0.7) k/uL Basophils # (0-0.2) k/uL Anisocytosis PT (9.0-12.0) sec INR (<1.2) APTT (22.0-30.0) sec Sodium (137-145) mmol/L Potassium (3.5-5.1) mmol/L Chloride (98-107) mmol/L Carbon Dioxide (22-30) mmol/L Anion Gap mmol/L BUN (9-20) mg/dL Creatinine (0.66-1.25) mg/dL Est GFR (CKD-EPI)AfAm (>60 ml/min/1.73 sqM) Est GFR (CKD-EPI)NonAf (>60 ml/min/1.73 sqM) Glucose (74-99) mg/dL Calcium (8.4-10.2) mg/dL Total Bilirubin (0.2-1.3) mg/dL AST (17-59) U/L ALT (4-49) U/L Alkaline Phosphatase (38-126) U/L Troponin I 0.015 (0.000-0.034) ng/mL NT-Pro-B Natriuret Pep 115 pg/mL Total Protein (6.3-8.2) g/dL Albumin (3.5-5.0) g/dL Influenza Type A (PCR) Not Detected (Not Detectd) Influenza Type B (PCR) Not Detected (Not Detectd) RSV (PCR) Not Detected (Not Detectd) SARS-CoV-2 (PCR) Not Detected (Not Detectd) Disposition Clinical Impression: Hypertension Disposition: HOME SELF-CARE Condition: Fair Instructions (If sedation given, give patient instructions): Hypertension (ED) Is patient prescribed a controlled substance at d/c from ED?: No Referrals: Rick Luke MD [Primary Care Provider] - 1-2 days Time of Disposition: 06:31
--- NOTE | 2023-01-24 05:53 | XR ---
EXAMINATION TYPE: XR chest 2V DATE OF EXAM: 01/24/2023 COMPARISON: 12/14/2022 HISTORY: Hypertension TECHNIQUE: 2 views FINDINGS: There is no heart failure nor confluent pneumonic infiltrate. Thoracic aorta is atheromatou s. Costophrenic angles are clear. Bony thorax is intact. IMPRESSION: No active cardiopulmonary disease. No significant change.
[2023-01-24 05:55] LABS: Calcium 9.3 mg/dL (8.4-10.2); Potassium 3.8 mmol/L (3.5-5.1); Total Bilirubin 0.3 mg/dL (0.2-1.3); Total Protein 7.3 g/dL (6.3-8.2)
[2023-01-24 05:59] LABS: INR 0.9 (<1.2); Partial Thromboplastin Time 25.3 sec (22.0-30.0); Prothrombin Time 9.8 sec (9.0-12.0)
[2023-01-24 06:49] VITALS: BP 164/97; PULSE 68
== END 2023-01-24 06:49 | disposition home or self-care (01) ==
LOC: EC 05:05
DX: I12.9 Hypertensive chronic kidney disease with stage 1 through stage 4 chronic kidney disease, or unspecified chronic kidney disease (principal); E78.5 Hyperlipidemia, unspecified; G47.33 Obstructive sleep apnea (adult) (pediatric); J44.9 Chronic obstructive pulmonary disease, unspecified; K21.9 Gastro-esophageal reflux disease without esophagitis; M19.90 Unspecified osteoarthritis, unspecified site; N18.30 Chronic kidney disease, stage 3 unspecified; Z79.02 Long term (current) use of antithrombotics/antiplatelets; Z79.82 Long term (current) use of aspirin; Z79.899 Other long term (current) drug therapy; Z87.891 Personal history of nicotine dependence; Z20.822 Contact with and (suspected) exposure to COVID-19
CPT/HCPCS: 36415; 71046; 80053; 83880; 84484; 85025; 85610; 85730; 87636; 93005; 99285

== ENCOUNTER 2023-02-22 14:14 | Emergency (ER) | payer MEDICARE, OTHER ==
[2023-02-22 14:20] VITALS: RESP 18; TEMP 97.6
--- NOTE | 2023-02-22 15:22 | XR ---
EXAMINATION TYPE: XR lumbosacral spine min 4V DATE OF EXAM: 02/22/2023 CLINICAL HISTORY: pain COMPARISON: NONE TECHNIQUE: Frontal, lateral, and oblique images of the lumbar spine are obtained. FINDINGS: There are 5 lumbar type vertebral bodies identified. The lumbar spine shows satisfactory alignment without evidence of acute fracture or dislocation. Vertebral body heights are within normal limits. Mild to moderate multilevel degenerative disc space narrowing and spondylosis. Severe facet joint arthropathy. The overlying soft tissue appears unremarkable. IMPRESSION: No acute fracture or dislocation is seen in the lumbar spine.ICD 10 NO FRACTURE, INITIAL EVALUATION
--- NOTE | 2023-02-22 15:30 | ED ---
Fall HPI - General Chief Complaint: Fall Stated Complaint: Fall Time Seen by Provider: 02/22/23 14:18 Source: patient, EMS, RN notes reviewed Mode of arrival: EMS Limitations: no limitations - History of Present Illness Initial Comments: 72-year-old male presents emergency Department with chief complaint of back pain. Patient states that he loss his balance morning but had to lower himself on the ground but complains of low back pain from the fall. Patient has no bowel, bladder incontinence or retention or saddle anesthesias. Patient states that that he just wanted to get his back checked out he has no other injuries. No head injury no loss consciousness no other complaints. - Related Data Home Medications Medication Instructions Recorded Confirmed Atorvastatin [Lipitor] 80 mg PO HS 05/26/17 07/24/22 Aspirin EC [Ecotrin Low Dose] 81 mg PO DAILY 02/12/18 07/24/22 calcitrioL [Calcitriol] 0.25 mcg PO SUTUTHSA 10/07/18 07/24/22 Clopidogrel [Plavix] 75 mg PO DAILY 12/08/19 07/24/22 Famotidine [Pepcid] 20 mg PO BID 11/18/20 07/24/22 Sertraline HCl [Zoloft] 50 mg PO DAILY 11/18/20 07/24/22 amLODIPine [Norvasc] 5 mg PO DAILY 05/24/22 07/24/22 Ascorbic Acid [Vitamin C] 1,000 mg PO DAILY 07/24/22 07/24/22 Melatonin [Melatonin ER] 10 mg PO HS 07/24/22 07/24/22 Zinc Gluconate [Zinc] 50 mg PO DAILY 07/24/22 07/24/22 Allergies Allergy/AdvReac Type Severity Reaction Status Date / Time No Known Allergies Allergy Verified 02/22/23 15:07 Review of Systems ROS Statement: Those systems with pertinent positive or pertinent negative responses have been documented in the HPI. ROS Other: All systems not noted in ROS Statement are negative. Past Medical History Past Medical History: COPD, CVA/TIA, Eye Disorder, GERD/Reflux, Hyperlipidemia, Hypertension, Osteoarthritis (OA), Prostate Disorder, Renal Disease, Sleep Apnea/CPAP/BIPAP, Syncope Additional Past Medical History / Comment(s): Multiple TIAs, CVA 01/2017 with dys phagia-peg tube inserted and now out, has residual weakness lt arm/leg and some lt facial droop, chronic kidney disease stage III, BPH, Uti, ROSA has Cpap but does not tolerate it no longer using it, gastric ulcer, past hxR foot 3rd toe osteomylitis, arthritis multiple joints, past gastric ulcer, past hx shingels. Loop recorder removed 12/30/21.dementia History of Any Multi-Drug Resistant Organisms: None Reported Past Surgical History: Hernia Repair, Joint Replacement Additional Past Surgical History / Comment(s): 06/01/17 intracranial angioplasty- (pt stated "he has stents') HFH, EGD with peg tube insertion since removed, R inguinal hernia repair, R total knee arthroplasty, colonoscopies with last one in 2019-normal., soniya eye cat sx, loop recorder since removed. Past Anesthesia/Blood Transfusion Reactions: No Reported Reaction Past Psychological History: No Psychological Hx Reported Smoking Status: Former smoker Past Alcohol Use History: None Reported Past Drug Use History: None Reported - Past Family History Mother Family Medical History: CVA/TIA, Diabetes Mellitus, Hyperlipidemia, Hypertension Father Family Medical History: CVA/TIA, Hypertension General Exam Limitations: no limitations General appearance: alert, in no apparent distress Head exam: Present: atraumatic, normocephalic, normal inspection Eye exam: Present: normal appearance, PERRL, EOMI. Absent: scleral icterus, c onjunctival injection, periorbital swelling Respiratory exam: Present: normal lung sounds bilaterally. Absent: respiratory distress, wheezes, rales, rhonchi, stridor Cardiovascular Exam: Present: regular rate, normal rhythm, normal heart sounds. Absent: systolic murmur, diastolic murmur, rubs, gallop, clicks Extremities exam: Present: normal inspection, full ROM, normal capillary refill. Absent: tenderness, pedal edema, joint swelling, calf tenderness Back exam: Present: full ROM, tenderness, paraspinal tenderness. Absent: vertebral tenderness Neurological exam: Present: alert, oriented X3, CN II-XII intact, reflexes normal. Absent: motor sensory deficit Course Vital Signs 02/22/23 14:18 Temperature 97.6 F Pulse Rate 62 Respiratory 18 Rate Blood Pressure 150/93 O2 Sat by Pulse 100 Oximetry Medical Decision Making - Medical Decision Making Was pt. sent in by a medical professional or institution (, PA, OPERATIONS AND MAINTENANCE TECHNICAN, urgent care, hospital, or [facility]...) When possible be specific @ -No Did you speak to anyone other than the patient for history (EMS, parent, family, police, friend...)? What history was obtained from this source @ -No Did you review nursing and triage notes (agree or disagree)? Why? @ -I reviewed and agree with nursing and triage notes Were old charts reviewed (outside hosp., previous admission, EMS record, old EKG, old radiological studies, urgent care reports/EKG's, [facility] records)? Report findings @ -No old charts were reviewed Differential Diagnosis (chest pain, altered mental status, abdominal pain women, abdominal pain men, vaginal bleeding, weakness, fever, dyspnea, syncope, headache, dizziness, GI bleed, back pain, seizure, CVA, palpatations, mental health, musculoskeletal)? @ -Low back contusion low back strain, lumbar fracture EKG interpreted by me (3pts min.). @ -None above X-rays interpreted by me (1pt min.). @ -X-ray shows mild degenerative changes no acute fracture CT interpreted by me (1pt min.). @ -None done U/S interpreted by me (1pt. min.). @ -None done What testing was considered but not performed or refused? (CT, X-rays, U/S, labs)? Why? @ -None What meds were considered but not given or refused? Why? @ -None Did you discuss the management of the patient with other professionals (professionals i.e. , PA, OPERATIONS AND MAINTENANCE TECHNICAN, lab, RT, psych nurse, social sciences research scientist, family court registrar, teacher, chief digital media officer, machine adjuster leader case trim)? Give summary @ -No Was smoking cessation discussed for >3mins.? @ -No Was critical care preformed (if so, how long)? @ -No Were there social determinants of health that impacted care today? How? (Homelessness, low income, unemployed, alcoholism, drug addiction, transportation, low edu. Level, literacy, decrease access to med. care, assisted, rehab)? @ -No Was there de-escalation of care discussed even if they declined (Discuss DNR or withdrawal of care, Hospice)? DNR status @ -No What co-morbidities impacted this encounter? (DM, HTN, Smoking, COPD, CAD, Cancer, CVA, ARF, Chemo, Hep., AIDS, mental health diagnosis, sleep apnea, morbid obesity)? @ -None Was patient admitted / discharged? Hospital course, mention meds given and route, prescriptions, significant lab abnormalities, going to OR and other pertinent info. @ -Discharge patient has lumbar contusion patient has no acute abnormality. Patient was discharged in stable condition return parameters discussed. Undiagnosed new problem with uncertain prognosis? @ -No Drug Therapy requiring intensive monitoring for toxicity (Heparin, Nitro, Insulin, Cardizem)? @ -No Were any procedures done? @ -No Diagnosis/symptom? @ -Low back contusion Acute, or Chronic, or Acute on Chronic? @ -Acute Uncomplicated (without systemic symptoms) or Complicated (systemic symptoms)? @ -Uncomplicated Side effects of treatment? @ -No Exacerbation, Progression, or Severe Exacerbation? @ -No Poses a threat to life or bodily function? How? (Chest pain, [place], [place], pneumonia, PE, COPD, DKA, ARF, appy, cholecystitis, CVA, Diverticulitis, Homicidal, Suicidal, threat to staff... and all critical care pts) @ -No Disposition Clinical Impression: Contusion of lower back Disposition: HOME SELF-CARE Condition: Stable Instructions (If sedation given, give patient instructions): Fall Prevention for Older Adults (ED) Additional Instructions: Please return to the Emergency Department if symptoms worsen or any other concerns. Is patient prescribed a controlled substance at d/c from ED?: No Referrals: Rick Luke MD [Primary Care Provider] - 1-2 days Time of Disposition: 15:30
[2023-02-22 15:53] VITALS: BP 146/68; PULSE 70
== END 2023-02-22 15:53 | disposition home or self-care (01) ==
LOC: EC 14:14
DX: S30.0XXA Contusion of lower back and pelvis, initial encounter (principal); I12.9 Hypertensive chronic kidney disease with stage 1 through stage 4 chronic kidney disease, or unspecified chronic kidney disease; N18.30 Chronic kidney disease, stage 3 unspecified; E78.5 Hyperlipidemia, unspecified; J44.9 Chronic obstructive pulmonary disease, unspecified; K21.9 Gastro-esophageal reflux disease without esophagitis; M19.90 Unspecified osteoarthritis, unspecified site; F03.90 Unspecified dementia, unspecified severity, without behavioral disturbance, psychotic disturbance, mood disturbance, and anxiety; Z79.02 Long term (current) use of antithrombotics/antiplatelets; Z79.82 Long term (current) use of aspirin; Z79.899 Other long term (current) drug therapy; Z86.73 Personal history of transient ischemic attack (TIA), and cerebral infarction without residual deficits; Z87.891 Personal history of nicotine dependence; W19.XXXA Unspecified fall, initial encounter
CPT/HCPCS: 72110; 99284

== ENCOUNTER 2023-03-28 08:04 | Emergency (ER) | payer MEDICARE, OTHER ==
[2023-03-28] MEDS ORDERED: SODIUM CHLORIDE 0.9% 500 ML 500 ML IV STA (08:29)
--- NOTE | 2023-03-28 08:47 | ED ---
General Adult HPI - General Chief complaint: Nausea/Vomiting/Diarrhea Stated complaint: weakness Time Seen by Provider: 03/28/23 08:14 Source: patient, EMS, RN notes reviewed, old records reviewed Mode of arrival: EMS Limitations: no limitations - History of Present Illness Initial comments: 72-year-old male presenting for evaluation of weakness, vomiting and lightheadedness. Patient's symptoms began this morning. He denies pain complaints, no chest pain, no abdominal pain. Patient states he vomited twice prior to arrival. He denies fever. He states he has had some URI symptoms over the past several days as well. No central chest pain. No headache. - Related Data Home Medications Medication Instructions Recorded Confirmed Atorvastatin [Lipitor] 80 mg PO HS 05/26/17 02/22/23 Aspirin EC [Ecotrin Low Dose] 81 mg PO DAILY 02/12/18 02/22/23 calcitrioL [Calcitriol] 0.25 mcg PO MOWETH 10/07/18 02/22/23 Clopidogrel [Plavix] 75 mg PO DAILY 12/08/19 02/22/23 Famotidine [Pepcid] 20 mg PO BID 11/18/20 02/22/23 Sertraline HCl [Zoloft] 50 mg PO HS 11/18/20 02/22/23 amLODIPine [Norvasc] 5 mg PO DAILY 05/24/22 02/22/23 Ascorbic Acid [Vitamin C] 1,000 mg PO DAILY 07/24/22 02/22/23 Melatonin [Melatonin ER] 10 mg PO HS 07/24/22 02/22/23 Zinc Gluconate [Zinc] 50 mg PO DAILY 07/24/22 02/22/23 Allergies Allergy/AdvReac Type Severity Reaction Status Date / Time No Known Allergies Allergy Verified 02/22/23 15:07 Review of Systems ROS Statement: Those systems with pertinent positive or pertinent negative responses have been documented in the HPI. ROS Other: All systems not noted in ROS Statement are negative. 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 Loop recorder removed 12/30/21.dementia History of Any Multi-Drug Resistant Organisms: None Reported Past Surgical History: Hernia Repair, Joint Replacement Additional Past Surgical History / Comment(s): 06/01/17 intracranial angioplasty-(pt stated "he has stents') HFH, EGD with peg tube insertion since removed, R inguinal hernia repair, R total knee arthroplasty, colonoscopies with last one in 2019-normal., soniya eye cat sx, loop recorder since removed. Past Anesthesia/Blood Transfusion Reactions: No Reported Reaction Past Psychological History: No Psychological Hx Reported Smoking Status: Former smoker Past Alcohol Use History: None Reported Past Drug Use History: None Reported - Past Family History Mother Family Medical History: CVA/TIA, Diabetes Mellitus, Hyperlipidemia, Hypertension Father Family Medical History: CVA/TIA, Hypertension General Exam Limitations: no limitations General appearance: alert, in no apparent distress Head exam: Present: atraumatic, normocephalic Eye exam: Present: normal appearance, PERRL ENT exam: Present: normal exam Neck exam: Present: normal inspection. Absent: tenderness, meningismus Respiratory exam: Present: normal lung sounds bilaterally. Absent: respiratory distress, wheezes Cardiovascular Exam: Present: regular rate, normal rhythm GI/Abdominal exam: Present: soft. Absent: distended, tenderness, guarding Rectal exam: Present: black stool Extremities exam: Present: pedal edema (Worse to the left) Neurological exam: Present: alert, oriented X3, CN II-XII intact. Absent: motor sensory deficit Psychiatric exam: Present: normal affect, normal mood Course Vital Signs 03/28/23 03/28/23 03/28/23 08:05 08:09 09:00 Temperature 97.9 F Pulse Rate 89 76 Respiratory 18 18 Rate Blood Pressure 164/87 144/85 O2 Sat by Pulse 98 100 87 L Oximetry 03/28/23 03/28/23 03/28/23 10:00 11:00 11:19 Temperature Pulse Rate 72 85 77 Respiratory 21 9 L 18 Rate Blood Pressure 153/87 135/111 140/75 O2 Sat by Pulse 100 100 Oximetry Medical Decision Making - Medical Decision Making Was pt. sent in by a medical professional or institution (, DEJA, CONSTRUCTION EQUIPMENT MECHANIC HELPER, urgent care, hospital, or prison...) When possible be specific @ -No Did you speak to anyone other than the patient for history (EMS, parent, family, police, friend...)? What history was obtained from this source @ -Paramedics Did you review nursing and triage notes (agree or disagree)? Why? @ -I reviewed and agree with nursing and triage notes Were old charts reviewed (outside hosp., previous admission, EMS record, old EKG, old radiological studies, urgent care reports/EKG's, prison records)? Report findings @ -Previous laboratory tests including kidney function and hemoglobin Differential Diagnosis (chest pain, altered mental status, abdominal pain women, abdominal pain men, vaginal bleeding, weakness, fever, dyspnea, syncope, headache, dizziness, GI bleed, back pain, seizure, CVA, palpatations, mental health, musculoskeletal)? @ -Differential Weakness: Hypoglycemia, shock, sepsis, hyponatremia, anemia, infection, SD, ETOH, adverse medicine reaction, overdose, stroke, this is not meant to be an all-inclusive li st. EKG interpreted by me (3pts min.). @ EKG: Sinus rhythm with PAC, rate 73, NH interval 186, QRS duration 86, QTC [address] segment changes. X-rays interpreted by me (1pt min.). @ -Chest x-ray, negative for acute cardiopulmonary disease CT interpreted by me (1pt min.). @ -None done U/S interpreted by me (1pt. min.). @ -None done What testing was considered but not performed or refused? (CT, X-rays, U/S, labs)? Why? @ -None What meds were considered but not given or refused? Why? @ -None Did you discuss the management of the patient with other professionals (professionals i.e. DEJA Cosme, CONSTRUCTION EQUIPMENT MECHANIC HELPER, lab, RT, psych nurse, social media manager, recreation adviser, teacher, sea air land officer, oil field caser)? Give summary @ -[Case discussed with Elvia Allen Was smoking cessation discussed for >3mins.? @ -No Was critical care preformed (if so, how long)? @ -No Were there social determinants of health that impacted care today? How? (Homelessness, low income, unemployed, alcoholism, drug addiction, transportation, low edu. Level, literacy, decrease access to med. care, correction, rehab)? @ -No Was there de-escalation of care discussed even if they declined (Discuss DNR or withdrawal of care, Hospice)? DNR status @ -No What co-morbidities impacted this encounter? (DM, HTN, Smoking, COPD, CAD, Cancer, CVA, ARF, Chemo, Hep., AIDS, mental health diagnosis, sleep apnea, morbid obesity)? @ -[Hypertension, anemia Was patient admitted / discharged? Hospital course, mention meds given and route, prescriptions, significant lab abnormalities, going to OR and other pertinent info. @ -[72-year-old male presenting with vomiting, weakness. Patient is noted to have a hemoglobin of 7. Baseline around 10. He is unaware of any melanotic stool but rectal exam does reveal black stool which is occult positive. He is given Protonix. He is on aspirin and Plavix, no other anticoagulants. He's also transfused one unit of blood. He will require transfer to outside hospital for GI consultation per patient is agreeable. Case discussed with Elvia Allen, accepting physician Dr. Payton, EM and Cookie Covering for Dr. Morrison, GI. Undiagnosed new problem with uncertain prognosis? @ -No Drug Therapy requiring intensive monitoring for toxicity (Heparin, Nitro, Insulin, Cardizem)? @ -No Were any procedures done? @ -No Diagnosis/symptom? @ Symptomatic anemia, suspect upper GI bleed Acute, or Chronic, or Acute on Chronic? @ -Acute Uncomplicated (without systemic symptoms) or Complicated (systemic symptoms)? @ Complicated Side effects of treatment? @ -No Exacerbation, Progression, or Severe Exacerbation? @ -No Poses a threat to life or bodily function? How? (Chest pain, USA, SD, pneumonia, PE, COPD, DKA, ARF, appy, cholecystitis, CVA, Diverticulitis, Homicidal, Suicidal, threat to staff... and all critical care pts) @ -Yes, GI bleed, anemia, hemorrhagic shock - Lab Data Result diagrams: 03/28/23 11:31 03/28/23 08:29 Lab Results 03/28/23 03/28/23 03/28/23 Range/Units 08:29 08:29 08:29 WBC 6.2 (3.8-10.6) k/uL RBC 2.45 L (4.30-5.90) m/uL Hgb 7.2 L D (13.0-17.5) gm/dL Hct 22.1 L (39.0-53.0) % MCV 90.2 (80.0-100.0) fL MCH 29.3 (25.0-35.0) pg MCHC 32.5 (31.0-37.0) g/dL RDW 18.6 H (11.5-15.5) % Plt Count 365 (150-450) k/uL MPV 7.4 Neutrophils % 59 % Lymphocytes % 27 % Monocytes % 9 % Eosinophils % 2 % Basophils % 0 % Neutrophils # 3.6 (1.3-7.7) k/uL Lymphocytes # 1.7 (1.0-4.8) k/uL Monocytes # 0.5 (0-1.0) k/uL Eosinophils # 0.1 (0-0.7) k/uL Basophils # 0.0 (0-0.2) k/uL Hypochromasia Moderate Poikilocytosis Slight Anisocytosis Slight PT 10.1 (9.0-12.0) sec INR 0.9 (<1.2) APTT 23.5 (22.0-30.0) sec Sodium 138 (137-145) mmol/L Potassium 3.5 (3.5-5.1) mmol/L Chloride 103 (98-107) mmol/L Carbon Dioxide 26 (22-30) mmol/L Anion Gap 9 mmol/L BUN 21 H (9-20) mg/dL Creatinine 1.93 H (0.66-1.25) mg/dL Est GFR (CKD-EPI)AfAm 39 (>60 ml/min/1.73 sqM) Est GFR (CKD-EPI)NonAf 34 (>60 ml/min/1.73 sqM) Glucose 86 (74-99) mg/dL Plasma Lactic Acid Del (0.7-2.0) mmol/L Calcium 9.4 (8.4-10.2) mg/dL Magnesium 1.7 (1.6-2.3) mg/dL Total Bilirubin 0.5 (0.2-1.3) mg/dL AST 30 (17-59) U/L ALT 30 (4-49) U/L Alkaline Phosphatase 99 (38-126) U/L Troponin I (0.000-0.034) ng/mL Total Protein 6.7 (6.3-8.2) g/dL Albumin 3.8 (3.5-5.0) g/dL Stool Occult Blood (Negative) Blood Type Blood Type Confirm Blood Type Recheck Bld Type Recheck Status Antibody Screen Crossmatch Spec Expiration Date 03/28/23 03/28/23 03/28/23 Range/Units 08:29 08:29 09:48 WBC (3.8-10.6) k/uL RBC (4.30-5.90) m/uL Hgb (13.0-17.5) gm/dL Hct (39.0-53.0) % MCV (80.0-100.0) fL MCH (25.0-35.0) pg MCHC (31.0-37.0) g/dL RDW (11.5-15.5) % Plt Count (150-450) k/uL MPV Neutrophils % % Lymphocytes % % Monocytes % % Eosinophils % % Basophils % % Neutrophils # (1.3-7.7) k/uL Lymphocytes # (1.0-4.8) k/uL Monocytes # (0-1.0) k/uL Eosinophils # (0-0.7) k/uL Basophils # (0-0.2) k/uL Hypochromasia Poikilocytosis Anisocytosis PT (9.0-12.0) sec INR (<1.2) APTT (22.0-30.0) sec Sodium (137-145) mmol/L Potassium (3.5-5.1) mmol/L Chloride (98-107) mmol/L Carbon Dioxide (22-30) mmol/L Anion Gap mmol/L BUN (9-20) mg/dL Creatinine (0.66-1.25) mg/dL Est GFR (CKD-EPI)AfAm (>60 ml/min/1.73 sqM) Est GFR (CKD-EPI)NonAf (>60 ml/min/1.73 sqM) Glucose (74-99) mg/dL Plasma Lactic Acid Del 1.4 (0.7-2.0) mmol/L Calcium (8.4-10.2) mg/dL Magnesium (1.6-2.3) mg/dL Total Bilirubin (0.2-1.3) mg/dL AST (17-59) U/L ALT (4-49) U/L Alkaline Phosphatase (38-126) U/L Troponin I 0.016 (0.000-0.034) ng/mL Total Protein (6.3-8.2) g/dL Albumin (3.5-5.0) g/dL Stool Occult Blood (Negative) Blood Type B Negative Blood Type Confirm Blood Type Recheck No Previous Record Bld Type Recheck Status CABO Indicated Antibody Screen NEGATIVE Crossmatch See Detail Spec Expiration Date 03/31/2023 - 234703/28/23 03/28/23 03/28/23 Range/Units 11:31 11:31 11:56 WBC 5.9 (3.8-10.6) k/uL RBC 2.34 L (4.30-5.90) m/uL Hgb 6.8 L* (13.0-17.5) gm/dL Hct 20.9 L (39.0-53.0) % MCV 89.3 (80.0-100.0) fL MCH 28.9 (25.0-35.0) pg MCHC 32.4 (31.0-37.0) g/dL RDW 18.9 H (11.5-15.5) % Plt Count 349 (150-450) k/uL MPV 7.1 Neutrophils % 52 % Lymphocytes % 34 % Monocytes % 9 % Eosinophils % 2 % Basophils % 1 % Neutrophils # 3.0 (1.3-7.7) k/uL Lymphocytes # 2.0 (1.0-4.8) k/uL Monocytes # 0.5 (0-1.0) k/uL Eosinophils # 0.1 (0-0.7) k/uL Basophils # 0.0 (0-0.2) k/uL Hypochromasia Slight Poikilocytosis Slight Anisocytosis Slight PT (9.0-12.0) sec INR (<1.2) APTT (22.0-30.0) sec Sodium (137-145) mmol/L Potassium (3.5-5.1) mmol/L Chloride (98-107) mmol/L Carbon Dioxide (22-30) mmol/L Anion Gap mmol/L BUN (9-20) mg/dL Creatinine (0.66-1.25) mg/dL Est GFR (CKD-EPI)AfAm (>60 ml/min/1.73 sqM) Est GFR (CKD-EPI)NonAf (>60 ml/min/1.73 sqM) Glucose (74-99) mg/dL Plasma Lactic Acid Del (0.7-2.0) mmol/L Calcium (8.4-10.2) mg/dL Magnesium (1.6-2.3) mg/dL Total Bilirubin (0.2-1.3) mg/dL AST (17-59) U/L ALT (4-49) U/L Alkaline Phosphatase (38-126) U/L Troponin I (0.000-0.034) ng/mL Total Protein (6.3-8.2) g/dL Albumin (3.5-5.0) g/dL Stool Occult Blood Positive (Negative) Blood Type Blood Type Confirm B Negative Blood Type Recheck Bld Type Recheck Status Antibody Screen Crossmatch Spec Expiration Date Disposition Clinical Impression: Weakness, GI bleed, Symptomatic anemia Disposition: OTHER INSTITUTION NOT DEFINED Condition: Stable Is patient prescribed a controlled substance at d/c from ED?: No Referrals: Rick Luke MD [Primary Care Provider] - 1-2 days Time of Disposition: 12:19 - Out of Hospital Transfer - Req. Specs Out of Hospital Transfer - Requested Specifics: Other Emergency Center ([facility])
[2023-03-28 09:07] LABS: Anisocytosis Slight; Basophils % (A) 0 %; Eosinophils # (A) 0.1 k/uL (0-0.7); Eosinophils % (A) 2 %; HCT 22.1 % (39.0-53.0); Hypochromasia Moderate; Lymphocytes # (A) 1.7 k/uL (1.0-4.8); Lymphocytes % (A) 27 %; MCH 29.3 pg (25.0-35.0); MCHC 32.5 g/dL (31.0-37.0); MCV 90.2 fL (80.0-100.0); Mean Platelet Volume 7.4; Monocytes # (A) 0.5 k/uL (0-1.0); Monocytes % (A) 9 %; Neutrophils # (A) 3.6 k/uL (1.3-7.7); Neutrophils % (A) 59 %; Platelet Count 365 k/uL (150-450); Poikilocytosis Slight; RBC 2.45 m/uL (4.30-5.90); RDW 18.6 % (11.5-15.5); WBC 6.2 k/uL (3.8-10.6)
--- NOTE | 2023-03-28 09:07 | XR ---
EXAMINATION TYPE: XR chest 2V DATE OF EXAM: 03/28/2023 COMPARISON: Chest x-ray January 25, 2020 HISTORY: Weakness and vomiting TECHNIQUE: Frontal and lateral views of the chest are obtained. FINDINGS: There is some chronic parenchymal change without suspicious new focal air space opacity, p leural effusion, or pneumothorax seen. Right paratracheal opacity redemonstrated a nonspecific. The c ardiac silhouette size is stable and upper limits of normal. The osseous structures are intact. IMPRESSION: Chronic changes without new acute pulmonary process.
[2023-03-28 09:13] LABS: INR 0.9 (<1.2); Partial Thromboplastin Time 23.5 sec (22.0-30.0); Prothrombin Time 10.1 sec (9.0-12.0)
--- NOTE | 2023-03-28 09:19 | XR ---
EXAMINATION TYPE: XR KUB DATE OF EXAM: 03/28/2023 COMPARISON: NONE HISTORY: vomiting TECHNIQUE: One view abdominal series FINDINGS: The osseous structures are intact. The bowel gas pattern is nonspecific. Lung bases are clear. Surg ical clips overlying the right pelvis. IMPRESSION: 1. Nonspecific abdomen.
[2023-03-28 09:29] LABS: Albumin 3.8 g/dL (3.5-5.0); Calcium 9.4 mg/dL (8.4-10.2); Magnesium 1.7 mg/dL (1.6-2.3); Potassium 3.5 mmol/L (3.5-5.1); Total Bilirubin 0.5 mg/dL (0.2-1.3); Total Protein 6.7 g/dL (6.3-8.2)
[2023-03-28 09:32] LABS: HGB 7.2 gm/dL (13.0-17.5)
[2023-03-28] MEDS ORDERED: PANTOPRAZOLE 40 MG/10 ML VIAL IVP STA (09:45)
[2023-03-28 11:43] LABS: Anisocytosis Slight; Basophils % (A) 1 %; Eosinophils # (A) 0.1 k/uL (0-0.7); Eosinophils % (A) 2 %; HCT 20.9 % (39.0-53.0); Hypochromasia Slight; Lymphocytes % (A) 34 %; MCH 28.9 pg (25.0-35.0); MCHC 32.4 g/dL (31.0-37.0); MCV 89.3 fL (80.0-100.0); Mean Platelet Volume 7.1; Monocytes # (A) 0.5 k/uL (0-1.0); Monocytes % (A) 9 %; Neutrophils % (A) 52 %; Platelet Count 349 k/uL (150-450); Poikilocytosis Slight; RBC 2.34 m/uL (4.30-5.90); RDW 18.9 % (11.5-15.5); WBC 5.9 k/uL (3.8-10.6)
[2023-03-28 11:45] VITALS: RESP 18
[2023-03-28 12:01] LABS: HGB 6.8 gm/dL (13.0-17.5)
[2023-03-28 14:35] VITALS: TEMP 98.4
[2023-03-28 15:00] VITALS: BP 147/88; PULSE 85
== END 2023-03-28 15:05 | disposition other institution (70) ==
LOC: EC 08:04
DX: K92.2 Gastrointestinal hemorrhage, unspecified (principal); D64.9 Anemia, unspecified; I12.9 Hypertensive chronic kidney disease with stage 1 through stage 4 chronic kidney disease, or unspecified chronic kidney disease; N18.30 Chronic kidney disease, stage 3 unspecified; J44.9 Chronic obstructive pulmonary disease, unspecified; E78.5 Hyperlipidemia, unspecified; K21.9 Gastro-esophageal reflux disease without esophagitis; Z79.02 Long term (current) use of antithrombotics/antiplatelets; Z79.82 Long term (current) use of aspirin; Z79.899 Other long term (current) drug therapy; Z87.891 Personal history of nicotine dependence; Z86.73 Personal history of transient ischemic attack (TIA), and cerebral infarction without residual deficits
CPT/HCPCS: 36415; 93005; 86900; 86901; 80053; 83605; 83735; 84484; 85025; 85610; 85730; 86850; 86920; 82272; 71046; 74018; 99285; 96374; 96361 ×5; 36430; P9016; C9113

== ENCOUNTER → 2023-04-27 | Outpatient (CLI) | payer MEDICARE, OTHER ==
--- NOTE | 2023-04-27 12:15 | US ---
EXAMINATION TYPE: US abdomen complete DATE OF EXAM: 04/27/2023 COMPARISON: CT abdomen and pelvis December 14, 2022 CLINICAL INDICATION: Male, 72 years old with history of K92.2 GASTROINTESTINAL HEMORRHAGE, UNSPECIFIE D; Patient states his abdomen feels hard. TECHNIQUE: Multiple sonographic images of the abdomen are obtained. FINDINGS: EXAM MEASUREMENTS: Liver Length: 15.7 cm Gallbladder Wall: 0.2 cm CBD: 0.5 cm Spleen: 8.1 cm Right Kidney: 9.5 x 4.2 x 5.0 cm Left Kidney: 9.6 x 4.5 x 5.8 cm HOME THEATER INSTALLER NOTES: Limited due to overlying bowel gas Pancreas: Tail obscured by overlying bowel gas Liver: Limited due to overlying bowel gas Gallbladder: wnl Evidence for sonographic Drummond's sign: neg CBD: wnl Spleen: Limited visualization Right Kidney: No hydronephrosis or masses seen Left Kidney: Upper lateral cystic appearing lesion = 4.5 x 4.7 x 4.7 cm Upper IVC: wnl Abd Aorta: Mid portion obscured by overlying bowel gas but could appears aneurysmal at 3.0 cm IVC is seen near the hepatic dome. No aneurysmal change in the visualized abdominal aorta though port ions are secured by overlying bowel gas visualized portion of pancreas is unremarkable. Visualized li tess is homogeneous in appearance without ductal dilatation. Evaluation for focal masses suboptimal du e to the heterogeneity. No adjacent ascites. No shadowing mobile gallstones. Kidneys symmetric and wi thin normal limits in size. No hydronephrosis seen bilaterally there is redemonstration of simple john earing 4.5 cm thin-walled cyst in the left kidney upper to mid pole level. The spleen is normal in si ze. IMPRESSION: Slightly suboptimal study but no suspicious new mass or ascites is noted.
== END | disposition home or self-care (01) ==
LOC: RADUSWWP 10:17
PROVIDERS: ATTEND Family Medicine
DX: K92.2 Gastrointestinal hemorrhage, unspecified (principal)
CPT/HCPCS: 76700

== ENCOUNTER 2023-09-01 19:18 | Emergency (ER) | payer MEDICARE, OTHER ==
[2023-09-01 19:45] VITALS: TEMP 98.5
[2023-09-01] MEDS ORDERED: SODIUM CHLORIDE 0.9% 500 ML 500 ML IV STA (19:46)
[2023-09-01] MEDS ORDERED: IPRATROPIUM-ALBUTEROL 3 ML NEB INHALATION STA (19:46)
--- NOTE | 2023-09-01 20:16 | ED ---
General Adult HPI - General Source: patient, RN notes reviewed, old records reviewed Mode of arrival: ambulatory Limitations: no limitations <Josr Rodriguez - Last Filed: 09/01/23 21:02> - History of Present Illness -: days(s) Location: chest Radiation: non-radiation Severity scale (1-10): 6 Quality: burning Consistency: intermittent Improves with: none Worsens with: none Associated Symptoms: denies other symptoms Treatments Prior to Arrival: none <Oni Coulter - Last Filed: 09/02/23 23:46> - General Chief complaint: Upper Respiratory Infection Stated complaint: Dehydration,UTI Time Seen by Provider: 09/01/23 19:38 - History of Present Illness Initial comments: Patient is a 72-year-old male presents emergency department URI symptoms. Presents with family members. As a history of COPD, prior stroke with residual left-sided deficits, hypertension. Patient has been having a cough for the last week or so. Positive sick contacts at home. Patient may be mildly dehydrated as well. Patient has nasal congestion. Patient denies chest pain, nausea, vomiting, diarrhea. Denies any abdominal pain. No other acute complaints at this time. They're requesting a urinalysis as well for the patient. Presents for further evaluation of a concern for possible infection. She denies fevers, does endorse chills. (Josr Rodriguez) 72 male to the emergency department for evaluation of chest pain cough and congestion some shortness of breath with worsening COPD underlying. No fevers no other complaints no travel history. Patient was incontinent contact with family members are also sick with no known underlying illness (Oni Coulter) - Related Data Home Medications Medication Instructions Recorded Confirmed Atorvastatin [Lipitor] 80 mg PO HS 05/26/17 08/30/23 Aspirin EC [Ecotrin Low Dose] 81 mg PO DAILY 02/12/18 08/30/23 calcitrioL [Calcitriol] 0.25 mcg PO MOWETH 10/07/18 08/30/23 Clopidogrel [Plavix] 75 mg PO DAILY 12/08/19 08/30/23 Famotidine [Pepcid] 20 mg PO BID 11/18/20 08/30/23 Sertraline HCl [Zoloft] 50 mg PO HS 11/18/20 08/30/23 amLODIPine [Norvasc] 5 mg PO DAILY 05/24/22 08/30/23 Ascorbic Acid [Vitamin C] 1,000 mg PO DAILY 07/24/22 08/30/23 Melatonin [Melatonin ER] 10 mg PO HS 07/24/22 08/30/23 Zinc Gluconate [Zinc] 50 mg PO DAILY 07/24/22 08/30/23 Previous Rx's Medication Instructions Recorded Furosemide [Lasix] 20 mg PO DAILY #5 tab 06/15/23 Albuterol Nebulized [Ventolin 2.5 mg INHALATION Q4H PRN #25 each 09/01/23 Nebulized] Albuterol Sulfate [Proair 1 puff INHALATION Q6H PRN #1 each 09/01/23 Digihaler] Azithromycin [Zithromax] 500 mg PO DAILY #5 tab 09/01/23 predniSONE 50 mg PO DAILY #5 tab 09/01/23 Allergies Allergy/AdvReac Type Severity Reaction Status Date / Time No Known Allergies Allergy Verified 09/01/23 19:27 Review of Systems ROS Other: All systems not noted in ROS Statement are negative. <Jsor Rodriguez - Last Filed: 09/01/23 21:02> ROS Other: All systems not noted in ROS Statement are negative. <Oni Coulter - Last Filed: 09/02/23 23:46> ROS Statement: Those systems with pertinent positive or pertinent negative responses have been documented in the HPI. Review of Systems: CONST: Denies fever EYES: Denies blurry vision ENT: Endorses nasal congestion C/V: Denies Chest pain RESP: Denies shortness of breath GI: Denies abdominal pain : Denies dysuria SKIN: Denies rash. MSK: Denies joint pain. NEURO: Denies headache (Josr Rodriguez) Past Medical History Past Medical History: COPD, CVA/TIA, Eye Disorder, GERD/Reflux, Hyperlipidemia, Hypertension, Osteoarthritis (OA), Prostate Disorder, Renal Disease, Sleep Apnea/CPAP/BIPAP, Syncope Additional Past Medical History / Comment(s): Multiple TIAs, CVA 01/2017 with dysphagia-peg tube inserted and now out, has residual weakness lt arm/leg and some lt facial droop, chronic kidney disease stage III, BPH, Uti, ROSA has Cpap but does not tolerate it no longer using it, gastric ulcer, past hxR foot 3rd toe osteomylitis, arthritis multiple joints, past gastric ulcer, past hx shingels. Loop recorder removed 12/30/21.dementia History of Any Multi-Drug Resistant Organisms: None Reported Past Surgical History: Hernia Repair, Joint Replacement Additional Past Surgical History / Comment(s): 06/01/17 intracranial angioplasty- (pt stated "he has stents') HFH, EGD with peg tube insertion since removed, R inguinal hernia repair, R total knee arthroplasty, colonoscopies with last one in 2019-normal., soniya eye cat sx, loop recorder since removed. Past Anesthesia/Blood Transfusion Reactions: No Reported Reaction Past Psychological History: No Psychological Hx Reported Smoking Status: Former smoker Past Alcohol Use History: None Reported Past Drug Use History: None Reported - Past Family History Mother Family Medical History: CVA/TIA, Diabetes Mellitus, Hyperlipidemia, Hypertension Father Family Medical History: CVA/TIA, Hypertension <Josr Rodriguez - Last Filed: 09/01/23 21:02> General Exam Limitations: no limitations <Josr Rodriguez - Last Filed: 09/01/23 21:02> General appearance: alert, in no apparent distress Head exam: Present: atraumatic, normocephalic, normal inspection Eye exam: Present: normal appearance, PERRL, EOMI. Absent: scleral icterus, conjunctival injection, periorbital swelling ENT exam: Present: normal exam, mucous membranes moist Neck exam: Present: normal inspection. Absent: tenderness, meningismus, lymphadenopathy Respiratory exam: Present: normal lung sounds bilaterally, wheezes. Absent: respiratory distress, rales, rhonchi, stridor Cardiovascular Exam: Present: regular rate, normal rhythm, normal heart sounds. Absent: systolic murmur, diastolic murmur, rubs, gallop, clicks GI/Abdominal exam: Present: soft, normal bowel sounds. Absent: distended, tende rness, guarding, rebound, rigid Extremities exam: Present: normal inspection, full ROM, normal capillary refill. Absent: tenderness, pedal edema, joint swelling, calf tenderness Back exam: Present: normal inspection Neurological exam: Present: alert, oriented X3, CN II-XII intact Psychiatric exam: Present: normal affect, normal mood Skin exam: Present: warm, dry, intact, normal color. Absent: rash <Oni Coulter - Last Filed: 09/02/23 23:46> - General Exam Comments Initial Comments: General: Appears in no acute distress. HEAD: Normal with no signs of head trauma. EYES: PERRLA, EOMI, conjunctiva normal, no discharge. ENT: Hearing grossly intact, normal oropharynx. RESPIRATORY: Clear breath sounds bilaterally. No wheezes, rales, or rhonchi. No hypoxia. No increased work of breathing. C/V: Regular rate and rhythm. S1 and S2 auscultated, chronic lower extremity edema that is baseline for the patient with left leg more edematous than right. Unchanged from baseline per patient and family, peripheral pulses 2+ and intact throughout ABD: Abd is soft, nontender, nondistended EXT: Normal range of motion, no obvious deformity SKIN: No rashes or lesions observed on exposed skin. NEURO: Alert and oriented 4. (Josr Rodriguez) Course <Oni Coulter - Last Filed: 09/02/23 23:46> Vital Signs 09/01/23 09/01/23 09/01/23 19:24 19:42 20:48 Temperature 98.5 F Pulse Rate 76 76 71 Respiratory 18 18 Rate Blood Pressure 166/86 161/101 O2 Sat by Pulse 95 96 Oximetry 09/01/23 09/01/23 09/01/23 20:55 21:42 23:18 Temperature Pulse Rate 72 87 90 Respiratory 20 18 Rate Blood Pressure 159/91 157/94 O2 Sat by Pulse 95 95 Oximetry - Reevaluation(s) Reevaluation #1: Medical records reviewed (Oni Coulter) Reevaluation #2: Symptoms are unchanged (Oni Coulter) Reevaluation #3: Informed results and questions have been answered (Oni Coulter) Reevaluation #4: Patient be treatments, feels well can be discharged home (Oni Coulter) Medical Decision Making - Lab Data Result diagrams: 09/01/23 19:48 - EKG Data -: EKG Interpreted by Me <Josr Rodriguez - Last Filed: 09/01/23 21:02> - Lab Data Result diagrams: 09/01/23 19:48 09/01/23 19:48 - EKG Data -: EKG Interpreted by Me - Radiology Data Radiology results: report reviewed (Chest x-rays negative for acute disease conjunctivae be), image reviewed <Oni Coulter - Last Filed: 09/02/23 23:46> - Medical Decision Making Was pt. sent in by a medical professional or institution (, DEJA, STOCK CRANE OPERATOR, urgent care, hospital, or long-term...) When possible be specific @ -No Did you speak to anyone other than the patient for history (EMS, parent, family, police, friend...)? What history was obtained from this source @ -No Did you review nursing and triage notes (agree or disagree)? Why? @ -I reviewed and agree with nursing and triage notes Were old charts reviewed (outside hosp., previous admission, EMS record, old EKG, old radiological studies, urgent care reports/EKG's, long-term records)? Report findings @ -Old charts reviewed Differential Diagnosis (chest pain, altered mental status, abdominal pain women, abdominal pain men, vaginal bleeding, weakness, fever, dyspnea, syncope, headache, dizziness, GI bleed, back pain, seizure, CVA, palpatations, mental health, musculoskeletal)? @ -Differential Dyspnea: Coronary syndrome, arrhythmia, tamponade, asthma, COPD, pulmonary embolism, pneumonia, pneumothorax, pulmonary effusion, anaphylaxis, diabetic ketoacidosis, flailed chest, pulmonary contusion, diaphragmatic rupture, anemia, neuromusc ular, this is not meant to be an all-inclusive list. EKG interpreted by me (3pts min.). @ -As above X-rays interpreted by me (1pt min.). @ -Pending CT interpreted by me (1pt min.). @ -None done U/S interpreted by me (1pt. min.). @ -None done What testing was considered but not performed or refused? (CT, X-rays, U/S, labs)? Why? @ -Considered venous duplex ultrasound however patient's family and patient is adamant that the leg findings are baseline for the patient without any acute changes. What meds were considered but not given or refused? Why? @ -None Did you discuss the management of the patient with other professionals (professionals i.e. DEJA Cosme, STOCK CRANE OPERATOR, lab, RT, psych nurse, social work nurse, mechanical and auto body car checker, teacher, mail officer, clinical case manager)? Give summary @ -No Was smoking cessation discussed for >3mins.? @ -No Was critical care preformed (if so, how long)? @ -No Were there social determinants of health that impacted care today? How? (Homelessness, low income, unemployed, alcoholism, drug addiction, transportation, low edu. Level, literacy, decrease access to med. care, detention, rehab)? @ -No Was there de-escalation of care discussed even if they declined (Discuss DNR or withdrawal of care, Hospice)? DNR status @ -No What co-morbidities impacted this encounter? (DM, HTN, Smoking, COPD, CAD, Cancer, CVA, ARF, Chemo, Hep., AIDS, mental health diagnosis, sleep apnea, morbid obesity)? @ -None Was patient admitted / discharged? Hospital course, mention meds given and route, prescriptions, significant lab abnormalities, going to OR and other pertinent info. @ -Based on the patient's presentation and physical exam, I'm concerned for possible upper respiratory infection. The patient. We will obtain infectious labs, urinalysis, BNP, chest x-ray, EKG. Patient be given a small fluid bolus. Patient given a breathing treatment as well. There were agree with this plan. Vital signs are within acceptable limits. EKG shows no signs of acute ischemia. At this time it is the end of my shift. Patient is still pending laboratory studies as well as chest x-ray. Patient signed out to Dr. Coulter. Undiagnosed new problem with uncertain prognosis? @ -No Drug Therapy requiring intensive monitoring for toxicity (Heparin, Nitro, Insu maco, Cardizem)? @ -No Were any procedures done? @ -No (Josr Rodriguez) 72 male to the emergency department for evaluation of chest pain with cough congestion COPD exacerbation, patient is no acute symptoms currently feels improved and can be discharged home (Oni Coulter) - Lab Data Lab Results 09/01/23 09/01/23 09/01/23 Range/Units 19:48 19:48 19:48 WBC 7.5 (3.8-10.6) k/uL RBC 3.85 L (4.30-5.90) m/uL Hgb 11.7 L (13.0-17.5) gm/dL Hct 35.7 L (39.0-53.0) % MCV 92.6 (80.0-100.0) fL MCH 30.3 (25.0-35.0) pg MCHC 32.7 (31.0-37.0) g/dL RDW 19.4 H (11.5-15.5) % Plt Count 222 (150-450) k/uL MPV 7.5 Neutrophils % 70 % Lymphocytes % 20 % Monocytes % 6 % Eosinophils % 2 % Basophils % 0 % Neutrophils # 5.2 (1.3-7.7) k/uL Lymphocytes # 1.5 (1.0-4.8) k/uL Monocytes # 0.4 (0-1.0) k/uL Eosinophils # 0.2 (0-0.7) k/uL Basophils # 0.0 (0-0.2) k/uL Hypochromasia Slight Anisocytosis Slight Sodium 138 (137-145) mmol/L Potassium 3.8 (3.5-5.1) mmol/L Chloride 102 (98-107) mmol/L Carbon Dioxide 26 (22-30) mmol/L Anion Gap 10 mmol/L BUN 18 (9-20) mg/dL Creatinine 1.32 H (0.66-1.25) mg/dL Est GFR (CKD-EPI)AfAm 62 (>60 ml/min/1.73 sqM) Est GFR (CKD-EPI)NonAf 53 (>60 ml/min/1.73 sqM) Glucose 192 H (74-99) mg/dL Plasma Lactic Acid Del 1.2 (0.7-2.0) mmol/L Calcium 9.6 (8.4-10.2) mg/dL Magnesium 1.6 (1.6-2.3) mg/dL Total Bilirubin 0.5 (0.2-1.3) mg/dL AST 24 (17-59) U/L ALT 35 (4-49) U/L Alkaline Phosphatase 107 (38-126) U/L NT-Pro-B Natriuret Pep 203 pg/mL Total Protein 7.6 (6.3-8.2) g/dL Albumin 4.1 (3.5-5.0) g/dL Urine Color Urine Appearance (Clear) Urine pH (5.0-8.0) Ur Specific [place] (1.001-1.035) Urine Protein (Negative) Urine Glucose (UA) (Negative) Urine Ketones (Negative) Urine Blood (Negative) Urine Nitrite (Negative) Urine Bilirubin (Negative) Urine Urobilinogen (<2.0) mg/dL Ur Leukocyte Esterase (Negative) Urine RBC (0-5) /hpf Urine WBC (0-5) /hpf Ur Squamous Epith Cells (0-4) /hpf Calcium Oxalate Crystal (None) /hpf Amorphous Sediment (None) /hpf Urine Bacteria (None) /hpf Hyaline Casts (0-2) /lpf Urine Mucus (None) /hpf Influenza Type A (PCR) (Not Detectd) Influenza Type B (PCR) (Not Detectd) RSV (PCR) (Not Detectd) SARS-CoV-2 (PCR) (Not Detectd) 09/01/23 09/01/23 Range/Units 19:48 19:48 WBC (3.8-10.6) k/uL RBC (4.30-5.90) m/uL Hgb (13.0-17.5) gm/dL Hct (39.0-53.0) % MCV (80.0-100.0) fL MCH (25.0-35.0) pg MCHC (31.0-37.0) g/dL RDW (11.5-15.5) % Plt Count (150-450) k/uL MPV Neutrophils % % Lymphocytes % % Monocytes % % Eosinophils % % Basophils % % Neutrophils # (1.3-7.7) k/uL Lymphocytes # (1.0-4.8) k/uL Monocytes # (0-1.0) k/uL Eosinophils # (0-0.7) k/uL Basophils # (0-0.2) k/uL Hypochromasia Anisocytosis Sodium (137-145) mmol/L Potassium (3.5-5.1) mmol/L Chloride (98-107) mmol/L Carbon Dioxide (22-30) mmol/L Anion Gap mmol/L BUN (9-20) mg/dL Creatinine (0.66-1.25) mg/dL Est GFR (CKD-EPI)AfAm (>60 ml/min/1.73 sqM) Est GFR (CKD-EPI)NonAf (>60 ml/min/1.73 sqM) Glucose (74-99) mg/dL Plasma Lactic Acid Del (0.7-2.0) mmol/L Calcium (8.4-10.2) mg/dL Magnesium (1.6-2.3) mg/dL Total Bilirubin (0.2-1.3) mg/dL AST (17-59) U/L ALT (4-49) U/L Alkaline Phosphatase (38-126) U/L NT-Pro-B Natriuret Pep pg/mL Total Protein (6.3-8.2) g/dL Albumin (3.5-5.0) g/dL Urine Color Yellow Urine Appearance Cloudy (Clear) Urine pH 6.0 (5.0-8.0) Ur Specific [place] 1.024 (1.001-1.035) Urine Protein Trace H (Negative) Urine Glucose (UA) Negative (Negative) Urine Ketones Negative (Negative) Urine Blood Negative (Negative) Urine Nitrite Negative (Negative) Urine Bilirubin Negative (Negative) Urine Urobilinogen 2.0 (<2.0) mg/dL Ur Leukocyte Esterase Trace H (Negative) Urine RBC 10 H (0-5) /hpf Urine WBC 9 H (0-5) /hpf Ur Squamous Epith Cells 1 (0-4) /hpf Calcium Oxalate Crystal Few H (None) /hpf Amorphous Sediment Occasional H (None) /hpf Urine Bacteria Many H (None) /hpf Hyaline Casts 11 H (0-2) /lpf Urine Mucus Occasional H (None) /hpf Influenza Type A (PCR) Not Detected (Not Detectd) Influenza Type B (PCR) Not Detected (Not Detectd) RSV (PCR) Not Detected (Not Detectd) SARS-CoV-2 (PCR) Not Detected (Not Detectd) - EKG Data EKG Comments: 12-lead Electrocardiogram Interpretation Note EKG was reviewed and interpreted by myself. 12-lead ECG performed at 2020 is interpreted by me as revealing normal sinus rhythm at a rate of 84 beats per minute. [place] is normal. SC interval is 172 ms, QRS duration is 92 ms, QTc is 403 ms.. There were no acute ST or T wave abnormalities to suggest myocardial ischemia or injury. Chronic T-wave inversion seen on the lateral precordial leads. R wave progression across the precordium was satisfactory. By my interpretation this EKG is non-diagnostic for acute ischemia. (Josr Rodriguez) Disposition <Josr Rodriguez - Last Filed: 09/01/23 21:02> Is patient prescribed a controlled substance at d/c from ED?: No Time of Disposition: 23:00 <Oni Coulter - Last Filed: 09/02/23 23:46> Clinical Impression: Weakness, COPD (chronic obstructive pulmonary disease), Acute bronchitis with COPD Disposition: HOME SELF-CARE Condition: Good Instructions (If sedation given, give patient instructions): COPD (Chronic Obstructive Pulmonary Disease) (ED), Chronic Bronchitis (ED) Prescriptions: predniSONE 50 mg PO DAILY #5 tab Albuterol Sulfate [Proair Digihaler] 1 puff INHALATION Q6H PRN #1 each PRN Reason: Wheezing Albuterol Nebulized [Ventolin Nebulized] 2.5 mg INHALATION Q4H PRN #25 each PRN Reason: Shortness Of Breath Azithromycin [Zithromax] 500 mg PO DAILY #5 tab Referrals: Rick Lkue MD [Primary Care Provider] - 1-2 days
[2023-09-01 20:41] LABS: ALT 35 U/L (4-49); AST 24 U/L (17-59); African American GFR (CKD) 62 (>60 ml/min/1.73 sqM); Albumin 4.1 g/dL (3.5-5.0); Alkaline Phosphatase 107 U/L (38-126); Anion Gap 10 mmol/L; Blood Urea Nitrogen 18 mg/dL (9-20); Calcium 9.6 mg/dL (8.4-10.2); Carbon Dioxide 26 mmol/L (22-30); Chloride 102 mmol/L (98-107); Glucose 192 mg/dL (74-99); Magnesium 1.6 mg/dL (1.6-2.3); Non-African American GFR(CKD) 53 (>60 ml/min/1.73 sqM); Potassium 3.8 mmol/L (3.5-5.1); Sodium 138 mmol/L (137-145); Total Bilirubin 0.5 mg/dL (0.2-1.3); Total Protein 7.6 g/dL (6.3-8.2)
[2023-09-01 20:48] LABS: NT-Pro-B-Type Natriuretic Pept 203 pg/mL
--- NOTE | 2023-09-01 21:16 | XR ---
EXAMINATION TYPE: XR chest 2V DATE OF EXAM: 09/01/2023 9:10 PM CLINICAL INDICATION:Male, 72 years old with history of difficulty breathing; [facility] COMPARISON: Chest radiographs from 03/28/2023 TECHNIQUE: XR chest 2V Frontal and lateral views of the chest. FINDINGS: Lungs/Pleura: There is no evidence of pleural effusion, focal consolidation, or pneumothorax. Pulmonary vascularity: Unremarkable. Heart/mediastinum: Cardiomediastinal silhouette is unremarkable. Musculoskeletal: No acute osseous pathology. IMPRESSION: No acute cardiopulmonary disease/process.
[2023-09-01 21:21] LABS: Anisocytosis Slight; Basophils % (A) 0 %; Eosinophils # (A) 0.2 k/uL (0-0.7); Eosinophils % (A) 2 %; HCT 35.7 % (39.0-53.0); HGB 11.7 gm/dL (13.0-17.5); Hypochromasia Slight; Lymphocytes # (A) 1.5 k/uL (1.0-4.8); Lymphocytes % (A) 20 %; MCH 30.3 pg (25.0-35.0); MCHC 32.7 g/dL (31.0-37.0); MCV 92.6 fL (80.0-100.0); Mean Platelet Volume 7.5; Monocytes # (A) 0.4 k/uL (0-1.0); Monocytes % (A) 6 %; Neutrophils # (A) 5.2 k/uL (1.3-7.7); Neutrophils % (A) 70 %; Platelet Count 222 k/uL (150-450); RBC 3.85 m/uL (4.30-5.90); RDW 19.4 % (11.5-15.5); WBC 7.5 k/uL (3.8-10.6)
[2023-09-01] MEDS ORDERED: AZITHROMYCIN 500 MG TAB PO STA (23:02)
[2023-09-01] MEDS ORDERED: methylPREDNISolone SOD SUCCI 125 MG/2 ML VIAL IV STA (23:03)
[2023-09-01] MEDS ORDERED: predniSONE 50 MG TAB PO STA (23:11)
[2023-09-01 23:26] LABS: Amorphous Sediment,Urine Occasional /hpf; Appearance,Urine Cloudy (Clear); Bacteria,Urine Many /hpf; Bilirubin,Urine Negative (Negative); Blood,Urine Negative (Negative); Calcium Oxalate Crystals,Urine Few /hpf; Color,Urine Yellow; Glucose,Urine (UA) Negative (Negative); Hyaline Casts,Urine 11 /lpf (0-2); Ketones,Urine Negative (Negative); Leukocyte Esterase,Urine Trace (Negative); Mucus,Urine Occasional /hpf; Nitrite,Urine Negative (Negative); Protein,Urine Trace (Negative); RBC,Urine 10 /hpf (0-5); Specific Gravity,Urine 1.024 (1.001-1.035); Squamous Epithelial Cell,Urine 1 /hpf (0-4); WBC,Urine 9 /hpf (0-5)
[2023-09-01 23:35] VITALS: BP 157/94; PULSE 90; RESP 18
== END 2023-09-01 23:20 | disposition home or self-care (01) ==
LOC: EC 19:18
DX: R53.1 Weakness (principal); J44.0 Chronic obstructive pulmonary disease with (acute) lower respiratory infection; E11.22 Type 2 diabetes mellitus with diabetic chronic kidney disease; I12.9 Hypertensive chronic kidney disease with stage 1 through stage 4 chronic kidney disease, or unspecified chronic kidney disease; N18.30 Chronic kidney disease, stage 3 unspecified; M19.90 Unspecified osteoarthritis, unspecified site; E78.5 Hyperlipidemia, unspecified; Z86.73 Personal history of transient ischemic attack (TIA), and cerebral infarction without residual deficits; Z87.891 Personal history of nicotine dependence; Z79.82 Long term (current) use of aspirin; Z79.02 Long term (current) use of antithrombotics/antiplatelets; Z79.899 Other long term (current) drug therapy; Z20.822 Contact with and (suspected) exposure to COVID-19
CPT/HCPCS: 36415; 94640; 93005; 83880; 80053; 83605; 83735; 85025; 81001; 87636; 71046; 99284; J7512

== ENCOUNTER 2023-10-05 20:07 | Emergency (ER) | payer MEDICARE, OTHER ==
--- NOTE | 2023-10-05 21:25 | ED ---
General Adult HPI - General Chief complaint: Weakness Stated complaint: Syncope/Weakness Time Seen by Provider: 10/05/23 21:08 Source: patient, EMS Mode of arrival: EMS - History of Present Illness Initial comments: This patient is 72-year-old man who presents to evaluation for feeling generalized weakness and dizziness. The patient states that it was there in the morning but very mild. He states that starting around 5:30 in the evening got worse. Patient notes that his started having some symptoms on Sunday and then had positive coving test 2 days ago. He has not noted fever, cough, or other definite symptoms. Patient denies pain. No dyspnea or cough. No vomi ting or diarrhea. He states the weakness is definitely not focal, he just feels weak everywhere. He feels dizzy when he stands. -: hour(s) Severity scale (1-10): 0 Improves with: rest Worsens with: other Associated Symptoms: weakness, other (lightHeaded/dizzy) - Related Data Home Medications Medication Instructions Recorded Confirmed Atorvastatin [Lipitor] 80 mg PO HS 05/26/17 08/30/23 Aspirin EC [Ecotrin Low Dose] 81 mg PO DAILY 02/12/18 08/30/23 calcitrioL [Calcitriol] 0.25 mcg PO MOWETH 10/07/18 08/30/23 Clopidogrel [Plavix] 75 mg PO DAILY 12/08/19 08/30/23 Famotidine [Pepcid] 20 mg PO BID 11/18/20 08/30/23 Sertraline HCl [Zoloft] 50 mg PO HS 11/18/20 08/30/23 amLODIPine [Norvasc] 5 mg PO DAILY 05/24/22 08/30/23 Ascorbic Acid [Vitamin C] 1,000 mg PO DAILY 07/24/22 08/30/23 Melatonin [Melatonin ER] 10 mg PO HS 07/24/22 08/30/23 Zinc Gluconate [Zinc] 50 mg PO DAILY 07/24/22 08/30/23 Previous Rx's Medication Instructions Recorded Furosemide [Lasix] 20 mg PO DAILY #5 tab 06/15/23 Albuterol Nebulized [Ventolin 2.5 mg INHALATION Q4H PRN #25 each 09/01/23 Nebulized] Albuterol Sulfate [Proair 1 puff INHALATION Q6H PRN #1 each 09/01/23 Digihaler] Azithromycin [Zithromax] 500 mg PO DAILY #5 tab 09/01/23 predniSONE 50 mg PO DAILY #5 tab 09/01/23 Ciprofloxacin HCl [Cipro] 500 mg PO Q12HR #14 tablet 10/06/23 Allergies Allergy/AdvReac Type Severity Reaction Status Date / Time No Known Allergies Allergy Verified 10/05/23 20:42 Review of Systems ROS Statement: Those systems with pertinent positive or pertinent negative responses have been documented in the HPI. ROS Other: All systems not noted in ROS Statement are negative. Constitutional: Reports: weakness. Denies: fever, chills Eyes: Denies: vision change ENT: Denies: congestion Respiratory: Denies: cough, dyspnea Cardiovascular: Denies: chest pain, palpitations, orthopnea, edema Gastrointestinal: Denies: abdominal pain, nausea, vomiting, diarrhea Genitourinary: Denies: dysuria, hematuria Musculoskeletal: Denies: back pain Skin: Denies: rash Neurological: Reports: vertigo. 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 Loop recorder removed 12/30/21.dementia History of Any Multi-Drug Resistant Organisms: None Reported Past Surgical History: Hernia Repair, Joint Replacement Additional Past Surgical History / Comment(s): 06/01/17 intracranial angioplasty- (pt stated "he has stents') HFH, EGD with peg tube insertion since removed, R inguinal hernia repair, R total knee arthroplasty, colonoscopies with last one in 2019-normal., soniya eye cat sx, loop recorder since removed. Past Anesthesia/Blood Transfusion Reactions: No Reported Reaction Past Psychological History: No Psychological Hx Reported Smoking Status: Former smoker Past Alcohol Use History: None Reported Past Drug Use History: None Reported - Past Family History Mother Family Medical History: CVA/TIA, Diabetes Mellitus, Hyperlipidemia, Hypertension Father Family Medical History: CVA/TIA, Hypertension General Exam General appearance: alert, in no apparent distress Head exam: Present: atraumatic, normocephalic Eye exam: Present: normal appearance. Absent: scleral icterus, conjunctival injection ENT exam: Present: mucous membranes dry Neck exam: Present: normal inspection, full ROM Respiratory exam: Present: normal lung sounds bilaterally. Absent: respiratory distress, wheezes, rales, rhonchi, stridor, accessory muscle use Cardiovascular Exam: Present: regular rate, normal rhythm, normal heart sounds. Absent: systolic murmur, diastolic murmur, rubs, gallop GI/Abdominal exam: Present: soft. Absent: distended, tenderness, guarding, rebound, rigid, mass, pulsatile mass, hernia Extremities exam: Present: normal inspection, normal capillary refill. Absent: pedal edema, calf tenderness Back exam: Present: normal inspection. Absent: CVA tenderness (R), CVA tenderness (L) Neurological exam: Present: alert, oriented X3, CN II-XII intact. Absent: motor sensory deficit Skin exam: Present: warm, dry, intact, normal color. Absent: rash Course Vital Signs 10/05/23 10/05/23 10/05/23 20:42 21:00 21:59 Temperature 98.0 F Pulse Rate 87 72 Pulse Rate [ 67 Bilateral Supine Fertilizer Mixer] Respiratory 16 20 Rate Blood Pressure 191/110 O2 Sat by Pulse 96 Oximetry 10/05/23 10/05/23 10/05/23 22:00 23:00 23:51 Temperature Pulse Rate 71 70 71 Pulse Rate [ Bilateral Supine Fertilizer Mixer] Respiratory 22 18 20 Rate Blood Pressure 152/95 153/81 153/89 O2 Sat by Pulse 95 94 L 94 L Oximetry 10/06/23 03:46 Temperature 98.6 F Pulse Rate 88 Pulse Rate [ Bilateral Supine Fertilizer Mixer] Respiratory 18 Rate Blood Pressure 143/86 O2 Sat by Pulse 98 Oximetry EKG Findings - EKG Results: EKG: interpreted by ERMD, sinus rhythm (Rate 75 bpm), normal axis - Blocks, [place], Hypertrophy, ST Abn: Chamber hypertrophy or enlargement: only voltage criteria for left ventricular hypertrophy Repolarization changes or abnormalities: nonspecific abnormality, ST segment, and/or T wave Medical Decision Making - Medical Decision Making The patient had chest x-ray which I interpreted as negative for acute infiltrate, pneumothorax, congestive heart failure Was pt. sent in by a medical professional or institution (DEJA Cosme, [employer], urgent care, hospital, or jail...) When possible be specific @ -[No] Did you speak to anyone other than the patient for history (EMS, parent, family, police, friend...)? What history was obtained from this source @ -[No] Did you review nursing and triage notes (agree or disagree)? Why? @ -[I reviewed and agree with nursing and triage notes] Were old charts reviewed (outside hosp., previous admission, EMS record, old EKG, old radiological studies, urgent care reports/EKG's, jail records)? Report findings @ -[No old charts were reviewed] Differential Diagnosis (chest pain, altered mental status, abdominal pain women, abdominal pain men, vaginal bleeding, weakness, fever, dyspnea, syncope, headache, dizziness, GI bleed, back pain, seizure, CVA, palpatations, mental health, musculoskeletal)? @ -[not applicable] EKG interpreted by me (3pts min.). @ -[As above] X-rays interpreted by me (1pt min.). @ -[I interpreted as above CT interpreted by me (1pt min.). @ -[None done] U/S interpreted by me (1pt. min.). @ -[None done] What testing was considered but not performed or refused? (CT, X-rays, U/S, labs)? Why? @ -[None] What meds were considered but not given or refused? Why? @ -[None] Did you discuss the management of the patient with other professionals (professionals i.e. DEJA Cosme, [employer], lab, RT, psych nurse, addiction social worker, farm equipment engineer, teacher, information technology officer, shelter case manager)? Give summary @ -[No] Was smoking cessation discussed for >3mins.? @ -[No] Was critical care preformed (if so, how long)? @ -[No] Were there social determinants of health that impacted care today? How? (Homelessness, low income, unemployed, alcoholism, drug addiction, transportation, low edu. Level, literacy, decrease access to med. care, fdc, rehab)? @ -[No] Was there de-escalation of care discussed even if they declined (Discuss DNR or withdrawal of care, Hospice)? DNR status @ -[No] What co-morbidities impacted this encounter? (DM, HTN, Smoking, COPD, CAD, Cancer, CVA, ARF, Chemo, Hep., AIDS, mental health diagnosis, sleep apnea, morbid obesity)? @ -[None] Was patient admitted / discharged? Hospital course, mention meds given and route, prescriptions, significant lab abnormalities, going to OR and other pertinent info. @ -[Patient is 72-year-old man here with generalized weakness and fatigue. He is found to have mild degree of dehydration and mild urinary tract infection. Patient received fluid and antibiotic and would like to go home. He is offered admission but states she would rather go home, he will follow-up. Return parameters discussed Undiagnosed new problem with uncertain prognosis? @ -[No] Drug Therapy requiring intensive monitoring for toxicity (Heparin, Nitro, Insulin, Cardizem)? @ -[No] Were any procedures done? @ -[No] Diagnosis/symptom? @ -[Acute generalized weakness Mild dehydration Acute urinary tract infection Acute, or Chronic, or Acute on Chronic? @ -[default] Uncomplicated (without systemic symptoms) or Complicated (systemic symptoms)? @ -[Uncomplicated Side effects of treatment? @ -[No] Exacerbation, Progression, or Severe Exacerbation? @ -[No] Poses a threat to life or bodily function? How? (Chest pain, [place], NH, pneumonia, PE, COPD, DKA, ARF, appy, cholecystitis, CVA, Diverticulitis, Homicidal, Suicidal, threat to staff... and all critical care pts) @ -[No] - Lab Data Result diagrams: 10/05/23 21:14 10/05/23 21:14 Lab Results 10/05/23 10/05/23 10/05/23 Range/Units 21:14 21:14 21:14 WBC 5.5 (3.8-10.6) k/uL RBC 3.94 L (4.30-5.90) m/uL Hgb 12.4 L (13.0-17.5) gm/dL Hct 38.3 L (39.0-53.0) % MCV 97.0 (80.0-100.0) fL MCH 31.4 (25.0-35.0) pg MCHC 32.4 (31.0-37.0) g/dL RDW 18.9 H (11.5-15.5) % Plt Count 201 (150-450) k/uL MPV 7.9 Neutrophils % 53 % Lymphocytes % 32 % Monocytes % 8 % Eosinophils % 5 % Basophils % 1 % Neutrophils # 2.9 (1.3-7.7) k/uL Lymphocytes # 1.8 (1.0-4.8) k/uL Monocytes # 0.4 (0-1.0) k/uL Eosinophils # 0.3 (0-0.7) k/uL Basophils # 0.0 (0-0.2) k/uL Anisocytosis Slight Macrocytosis Slight PT 10.2 (10.0-12.5) sec INR 0.9 (<1.2) APTT 25.1 (22.0-30.0) sec Sodium 141 (137-145) mmol/L Potassium 3.5 (3.5-5.1) mmol/L Chloride 103 (98-107) mmol/L Carbon Dioxide 29 (22-30) mmol/L Anion Gap 9 mmol/L BUN 23 H (9-20) mg/dL Creatinine 1.37 H (0.66-1.25) mg/dL Est GFR (CKD-EPI)AfAm 59 (>60 ml/min/1.73 sqM) Est GFR (CKD-EPI)NonAf 51 (>60 ml/min/1.73 sqM) Glucose 86 (74-99) mg/dL Plasma Lactic Acid Del (0.7-2.0) mmol/L Calcium 9.3 (8.4-10.2) mg/dL Magnesium 1.8 (1.6-2.3) mg/dL Total Bilirubin 0.4 (0.2-1.3) mg/dL AST 26 (17-59) U/L ALT 32 (4-49) U/L Alkaline Phosphatase 108 (38-126) U/L Troponin I (0.000-0.034) ng/mL Total Protein 7.0 (6.3-8.2) g/dL Albumin 3.8 (3.5-5.0) g/dL Urine Color Urine Appearance (Clear) Urine pH (5.0-8.0) Ur Specific Bart[place] (1.001-1.035) Urine Protein (Negative) Urine Glucose (UA) (Negative) Urine Ketones (Negative) Urine Blood (Negative) Urine Nitrite (Negative) Urine Bilirubin (Negative) Urine Urobilinogen (<2.0) mg/dL Ur Leukocyte Esterase (Negative) Urine RBC (0-5) /hpf Urine WBC (0-5) /hpf Urine WBC Clumps (None) /hpf Ur Squamous Epith Cells (0-4) /hpf Amorphous Sediment (None) /hpf Urine Bacteria (None) /hpf Hyaline Casts (0-2) /lpf Urine Mucus (None) /hpf SARS-CoV-2 (PCR) (Not Detectd) 10/05/23 10/05/23 10/05/23 Range/Units 21:14 21:14 21:14 WBC (3.8-10.6) k/uL RBC (4.30-5.90) m/uL Hgb (13.0-17.5) gm/dL Hct (39.0-53.0) % MCV (80.0-100.0) fL MCH (25.0-35.0) pg MCHC (31.0-37.0) g/dL RDW (11.5-15.5) % Plt Count (150-450) k/uL MPV Neutrophils % % Lymphocytes % % Monocytes % % Eosinophils % % Basophils % % Neutrophils # (1.3-7.7) k/uL Lymphocytes # (1.0-4.8) k/uL Monocytes # (0-1.0) k/uL Eosinophils # (0-0.7) k/uL Basophils # (0-0.2) k/uL Anisocytosis Macrocytosis PT (10.0-12.5) sec INR (<1.2) APTT (22.0-30.0) sec Sodium (137-145) mmol/L Potassium (3.5-5.1) mmol/L Chloride (98-107) mmol/L Carbon Dioxide (22-30) mmol/L Anion Gap mmol/L BUN (9-20) mg/dL Creatinine (0.66-1.25) mg/dL Est GFR (CKD-EPI)AfAm (>60 ml/min/1.73 sqM) Est GFR (CKD-EPI)NonAf (>60 ml/min/1.73 sqM) Glucose (74-99) mg/dL Plasma Lactic Acid Del 1.2 (0.7-2.0) mmol/L Calcium (8.4-10.2) mg/dL Magnesium (1.6-2.3) mg/dL Total Bilirubin (0.2-1.3) mg/dL AST (17-59) U/L ALT (4-49) U/L Alkaline Phosphatase (38-126) U/L Troponin I 0.013 (0.000-0.034) ng/mL Total Protein (6.3-8.2) g/dL Albumin (3.5-5.0) g/dL Urine Color Yellow Urine Appearance Cloudy (Clear) Urine pH 6.0 (5.0-8.0) Ur Specific [place] 1.015 (1.001-1.035) Urine Protein Trace H (Negative) Urine Glucose (UA) 1+ H (Negative) Urine Ketones Negative (Negative) Urine Blood Trace H (Negative) Urine Nitrite Negative (Negative) Urine Bilirubin Negative (Negative) Urine Urobilinogen <2.0 (<2.0) mg/dL Ur Leukocyte Esterase Trace H (Negative) Urine RBC 18 H (0-5) /hpf Urine WBC 13 H (0-5) /hpf Urine WBC Clumps Rare H (None) /hpf Ur Squamous Epith Cells <1 (0-4) /hpf Amorphous Sediment Rare H (None) /hpf Urine Bacteria Rare H (None) /hpf Hyaline Casts 1 (0-2) /lpf Urine Mucus Few H (None) /hpf SARS-CoV-2 (PCR) (Not Detectd) 10/05/23 Range/Units 21:57 WBC (3.8-10.6) k/uL RBC (4.30-5.90) m/uL Hgb (13.0-17.5) gm/dL Hct (39.0-53.0) % MCV (80.0-100.0) fL MCH (25.0-35.0) pg MCHC (31.0-37.0) g/dL RDW (11.5-15.5) % Plt Count (150-450) k/uL MPV Neutrophils % % Lymphocytes % % Monocytes % % Eosinophils % % Basophils % % Neutrophils # (1.3-7.7) k/uL Lymphocytes # (1.0-4.8) k/uL Monocytes # (0-1.0) k/uL Eosinophils # (0-0.7) k/uL Basophils # (0-0.2) k/uL Anisocytosis Macrocytosis PT (10.0-12.5) sec INR (<1.2) APTT (22.0-30.0) sec Sodium (137-145) mmol/L Potassium (3.5-5.1) mmol/L Chloride (98-107) mmol/L Carbon Dioxide (22-30) mmol/L Anion Gap mmol/L BUN (9-20) mg/dL Creatinine (0.66-1.25) mg/dL Est GFR (CKD-EPI)AfAm (>60 ml/min/1.73 sqM) Est GFR (CKD-EPI)NonAf (>60 ml/min/1.73 sqM) Glucose (74-99) mg/dL Plasma Lactic Acid Del (0.7-2.0) mmol/L Calcium (8.4-10.2) mg/dL Magnesium (1.6-2.3) mg/dL Total Bilirubin (0.2-1.3) mg/dL AST (17-59) U/L ALT (4-49) U/L Alkaline Phosphatase (38-126) U/L Troponin I (0.000-0.034) ng/mL Total Protein (6.3-8.2) g/dL Albumin (3.5-5.0) g/dL Urine Color Urine Appearance (Clear) Urine pH (5.0-8.0) Ur Specific [place] (1.001-1.035) Urine Protein (Negative) Urine Glucose (UA) (Negative) Urine Ketones (Negative) Urine Blood (Negative) Urine Nitrite (Negative) Urine Bilirubin (Negative) Urine Urobilinogen (<2.0) mg/dL Ur Leukocyte Esterase (Negative) Urine RBC (0-5) /hpf Urine WBC (0-5) /hpf Urine WBC Clumps (None) /hpf Ur Squamous Epith Cells (0-4) /hpf Amorphous Sediment (None) /hpf Urine Bacteria (None) /hpf Hyaline Casts (0-2) /lpf Urine Mucus (None) /hpf SARS-CoV-2 (PCR) Not Detected (Not Detectd) Disposition Clinical Impression: UTI (urinary tract infection), Dehydration, Dizziness Disposition: HOME SELF-CARE Condition: Good Instructions (If sedation given, give patient instructions): Urinary Tract Infection in Men (ED), Dizziness (ED) Prescriptions: Ciprofloxacin HCl [Cipro] 500 mg PO Q12HR #14 tablet Is patient prescribed a controlled substance at d/c from ED?: No Referrals: Rick Luke MD [Primary Care Provider] - 1-2 days
[2023-10-05 21:55] LABS: Anisocytosis Slight; Basophils % (A) 1 %; Eosinophils # (A) 0.3 k/uL (0-0.7); Eosinophils % (A) 5 %; HCT 38.3 % (39.0-53.0); HGB 12.4 gm/dL (13.0-17.5); Lymphocytes # (A) 1.8 k/uL (1.0-4.8); Lymphocytes % (A) 32 %; MCH 31.4 pg (25.0-35.0); MCHC 32.4 g/dL (31.0-37.0); Macrocytosis Slight; Mean Platelet Volume 7.9; Monocytes # (A) 0.4 k/uL (0-1.0); Monocytes % (A) 8 %; Neutrophils # (A) 2.9 k/uL (1.3-7.7); Neutrophils % (A) 53 %; Platelet Count 201 k/uL (150-450); RBC 3.94 m/uL (4.30-5.90); RDW 18.9 % (11.5-15.5); WBC 5.5 k/uL (3.8-10.6)
--- NOTE | 2023-10-05 22:04 | XR ---
EXAMINATION TYPE: XR chest 2V DATE OF EXAM: 10/05/2023 9:42 PM CLINICAL INDICATION:Male, 72 years old with history of Weakness; [facility] COMPARISON: 09/01/2023 TECHNIQUE: XR chest 2V. Frontal PA and lateral views of the chest. FINDINGS: Lines/Tubes: EKG leads overlie the chest. No indwelling lines are seen. Heart/mediastinum: Cardiomediastinal silhouette is stable. Heart is mildly enlarged. Tortuosity and e ctasia of the aorta. Pulmonary vascularity: Not increased, Lungs/Pleura: There is no evidence of pleural effusion, focal consolidation, or pneumothorax. Musculoskeletal: No acute osseous abnormality demonstrated in the limits of the exam. Other findings: None. IMPRESSION: No acute cardiopulmonary abnormality.
[2023-10-05 22:09] LABS: Amorphous Sediment,Urine Rare /hpf; Appearance,Urine Cloudy (Clear); Bacteria,Urine Rare /hpf; Color,Urine Yellow; Glucose,Urine (UA) 1+ (Negative); Hyaline Casts,Urine 1 /lpf (0-2); INR 0.9 (<1.2); Mucus,Urine Few /hpf; Partial Thromboplastin Time 25.1 sec (22.0-30.0); Protein,Urine Trace (Negative); Prothrombin Time 10.2 sec (10.0-12.5); RBC,Urine 18 /hpf (0-5); Specific Gravity,Urine 1.015 (1.001-1.035); Squamous Epithelial Cell,Urine <1 /hpf (0-4); WBC,Urine 13 /hpf (0-5)
[2023-10-05 22:10] LABS: Bilirubin,Urine Negative (Negative); Blood,Urine Trace (Negative); Ketones,Urine Negative (Negative); Leukocyte Esterase,Urine Trace (Negative); Nitrite,Urine Negative (Negative); Urobilinogen,Urine <2.0 mg/dL (<2.0)
[2023-10-05 22:13] LABS: ALT 32 U/L (4-49); AST 26 U/L (17-59); African American GFR (CKD) 59 (>60 ml/min/1.73 sqM); Albumin 3.8 g/dL (3.5-5.0); Alkaline Phosphatase 108 U/L (38-126); Anion Gap 9 mmol/L; Blood Urea Nitrogen 23 mg/dL (9-20); Calcium 9.3 mg/dL (8.4-10.2); Carbon Dioxide 29 mmol/L (22-30); Chloride 103 mmol/L (98-107); Glucose 86 mg/dL (74-99); Magnesium 1.8 mg/dL (1.6-2.3); Non-African American GFR(CKD) 51 (>60 ml/min/1.73 sqM); Potassium 3.5 mmol/L (3.5-5.1); Sodium 141 mmol/L (137-145); Total Bilirubin 0.4 mg/dL (0.2-1.3)
[2023-10-05] MEDS ORDERED: SODIUM CHLORIDE 0.9% 1,000 ML IV ONE (23:36)
[2023-10-06] MEDS ORDERED: LEVOFLOXACIN 750 MG TAB PO STA (01:01)
[2023-10-06 04:12] VITALS: BP 143/86; PULSE 88; RESP 18; TEMP 98.6
== END 2023-10-06 03:48 | disposition home or self-care (01) ==
LOC: EC 20:07
DX: N39.0 Urinary tract infection, site not specified (principal); E86.0 Dehydration; R42 Dizziness and giddiness; J44.9 Chronic obstructive pulmonary disease, unspecified; K21.9 Gastro-esophageal reflux disease without esophagitis; E78.5 Hyperlipidemia, unspecified; I12.9 Hypertensive chronic kidney disease with stage 1 through stage 4 chronic kidney disease, or unspecified chronic kidney disease; N18.30 Chronic kidney disease, stage 3 unspecified; G47.30 Sleep apnea, unspecified; Z79.899 Other long term (current) drug therapy; Z87.891 Personal history of nicotine dependence; Z20.822 Contact with and (suspected) exposure to COVID-19
CPT/HCPCS: 36415; 71046; 80053; 81001; 83605; 83735; 84484; 85025; 85610; 85730; 87086; 87635; 93005; 96360; 99285

== ENCOUNTER 2023-12-05 18:32 | Emergency (ER) | payer MEDICARE, OTHER ==
[2023-12-05 19:19] VITALS: TEMP 98.4
--- NOTE | 2023-12-05 20:27 | ED ---
Fall HPI - General Chief Complaint: Fall Stated Complaint: Fall Time Seen by Provider: 12/05/23 19:17 Source: patient, family Mode of arrival: wheelchair - History of Present Illness Initial Comments: 72-year-old male presenting to the ED with a chief complaint of "fall". Patient states this morning was going to the bathroom. Normally ambulates with a walker. States that his right knee "gave out". Due to this, states that he started to fall forward however was able to catch himself with his left hand on the dresser. Did not actually fall. There was no injury at this time. Patient reports that he has been ambulatory since. Denies any pain. Per , states that this is an ongoing issue in which she is in physical therapy for. No chest pain, shortness of breath, dizziness preceding the fall. No other complaints. - Related Data Home Medications Medication Instructions Recorded Confirmed Atorvastatin [Lipitor] 80 mg PO HS 05/26/17 08/30/23 Aspirin EC [Ecotrin Low Dose] 81 mg PO DAILY 02/12/18 08/30/23 calcitrioL 0.25 mcg PO MOWETH 10/07/18 08/30/23 Clopidogrel [Plavix] 75 mg PO DAILY 12/08/19 08/30/23 Famotidine [Pepcid] 20 mg PO BID 11/18/20 08/30/23 Sertraline HCl [Zoloft] 50 mg PO HS 11/18/20 08/30/23 amLODIPine [Norvasc] 5 mg PO DAILY 05/24/22 08/30/23 Ascorbic Acid [Vitamin C] 1,000 mg PO DAILY 07/24/22 08/30/23 Melatonin [Melatonin ER] 10 mg PO HS 07/24/22 08/30/23 Zinc Gluconate [Zinc] 50 mg PO DAILY 07/24/22 08/30/23 Previous Rx's Medication Instructions Recorded Furosemide [Lasix] 20 mg PO DAILY #5 tab 06/15/23 Albuterol Nebulized [Ventolin 2.5 mg INHALATION Q4H PRN #25 each 09/01/23 Nebulized] Albuterol Sulfate [Proair 1 puff INHALATION Q6H PRN #1 each 09/01/23 Digihaler] Azithromycin [Zithromax] 500 mg PO DAILY #5 tab 11/04/23 predniSONE 50 mg PO DAILY #5 tab 09/01/23 Ciprofloxacin HCl [Cipro] 500 mg PO Q12HR #14 tablet 10/06/23 Allergies Allergy/AdvReac Type Severity Reaction Status Date / Time No Known Allergies Allergy Verified 10/05/23 20:42 Review of Systems ROS Statement: Those systems with pertinent positive or pertinent negative responses have been documented in the HPI. ROS Other: All systems not noted in ROS Statement are negative. 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 Loop recorder removed 12/30/21.dementia History of Any Multi-Drug Resistant Organisms: None Reported Past Surgical History: Hernia Repair, Joint Replacement Additional Past Surgical History / Comment(s): 06/01/17 intracranial angioplasty- (pt stated "he has stents') HFH, EGD with peg tube insertion since removed, R inguinal hernia repair, R total knee arthroplasty, colonoscopies with last one in 2019-normal., soniya eye cat sx, loop recorder since removed. Past Anesthesia/Blood Transfusion Reactions: No Reported Reaction Past Psychological History: No Psychological Hx Reported Smoking Status: Former smoker Past Alcohol Use History: None Reported Past Drug Use History: None Reported - Past Family History Mother Family Medical History: CVA/TIA, Diabetes Mellitus, Hyperlipidemia, Hypertension Father Family Medical History: CVA/TIA, Hypertension General Exam Limitations: no limitations General appearance: alert Eye exam: Present: normal appearance Neck exam: Present: normal inspection Respiratory exam: Present: normal lung sounds bilaterally Cardiovascular Exam: Present: regular rate, normal rhythm GI/Abdominal exam: Present: soft Extremities exam: Present: other (Full passive range of motion of the right knee. Strength and sensation intact. DP/PT pulses intact.) Neurological exam: Present: alert, oriented X3 Skin exam: Present: warm, dry Course Vital Signs 12/05/23 12/05/23 18:50 20:17 Temperature 98.4 F Pulse Rate 71 64 Respiratory 16 18 Rate Blood Pressure 162/82 O2 Sat by Pulse 98 99 Oximetry Medical Decision Making - Medical Decision Making Was pt. sent in by a medical professional or institution (, DEJA, PAPER TUBE CUTTER, urgent care, hospital, or fci...) When possible be specific @ -No Did you speak to anyone other than the patient for history (EMS, parent, family, police, friend...)? What history was obtained from this source @ -Spoke to both patient and who provided history. For further details please see HPI. After complete workup, patient's notes that this is an ongoing issue and she brought him here to see if he would qualify for inpatient physical therapy/rehab. This was not mentioned and had initial evaluation. Did you review nursing and triage notes (agree or disagree)? Why? @ -I reviewed and agree with nursing and triage notes Were old charts reviewed (outside hosp., previous admission, EMS record, old EKG, old radiological studies, urgent care reports/EKG's, fci records)? Report findings @ -No old charts were reviewed Differential Diagnosis (chest pain, altered mental status, abdominal pain women, abdominal pain men, vaginal bleeding, weakness, fever, dyspnea, syncope, headache, dizziness, GI bleed, back pain, seizure, CVA, palpatations, mental health, musculoskeletal)? @ -Differential Musculoskeletal Muscular strain, contusion, ligament sprain, fracture, arthritis, septic arthritis, bursitis, cellulitis, muscle spasm, nerve compression, DVT, arterial occlusion, herpes zoster, electrolyte abnormality, tumor.... This is not meant to be in all inclusive list EKG interpreted by me (3pts min.). @ -None X-rays interpreted by me (1pt min.). @ -None done CT interpreted by me (1pt min.). @ -None done U/S interpreted by me (1pt. min.). @ -None done What testing was considered but not performed or refused? (CT, X-rays, U/S, labs)? Why? @ -None What meds were considered but not given or refused? Why? @ -None Did you discuss the management of the patient with other professionals (professionals i.e. , PA, PAPER TUBE CUTTER, lab, RT, psych nurse, social sciences instructor, plant operator helper, teacher, targeting acquisition officer, block and case maker)? Give summary @ -No Was smoking cessation discussed for >3mins.? @ -No Was critical care preformed (if so, how long)? @ -No Were there social determinants of health that impacted care today? How? (Homelessness, low income, unemployed, alcoholism, drug addiction, transportation, low edu. Level, literacy, decrease access to med. care, alf, rehab)? @ -No Was there de-escalation of care discussed even if they declined (Discuss DNR or withdrawal of care, Hospice)? DNR status @ -No What co-morbidities impacted this encounter? (DM, HTN, Smoking, COPD, CAD, Cancer, CVA, ARF, Chemo, Hep., AIDS, mental health diagnosis, sleep apnea, morbid obesity)? @ -None Was patient admitted / discharged? Hospital course, mention meds given and route, prescriptions, significant lab abnormalities, going to OR and other pertinent info. @ -Discharge 72-year-old male initially presenting to the ED with a chief complaint of fall in which his right knee gave out. Imaging studies at this time unremarkable. There is no other injuries at this time. Patient is on blood thinners however denied head injury as he was able to catch himself before actually even falling. After complete workup, patient's notes that this is an ongoing issue and she brought him here to see if he would qualify for inpatient physical therapy/rehab. This was not mentioned and had initial evaluation. At this time patient does not qualify and was advised to continue physical therapy on an outpatient basis. At this time vital signs stable afebrile. Discharged home in stable condition. Undiagnosed new problem with uncertain prognosis? @ -No Drug Therapy requiring intensive monitoring for toxicity (Heparin, Nitro, Insulin, Cardizem)? @ -No Were any procedures done? @ -No Diagnosis/symptom? @ -Generalized weakness, ongoing Acute, or Chronic, or Acute on Chronic? @ -Chronic Uncomplicated (without systemic symptoms) or Complicated (systemic symptoms)? @ -Uncomplicated Side effects of treatment? @ -No Exacerbation, Progression, or Severe Exacerbation? @ -No Poses a threat to life or bodily function? How? (Chest pain, [place], [place], pneumonia, PE, COPD, DKA, ARF, appy, cholecystitis, CVA, Diverticulitis, Homicidal, Suicidal, threat to staff... and all critical care pts) @ -No Disposition Clinical Impression: Generalized weakness Disposition: HOME SELF-CARE Condition: Good Additional Instructions: Please return to the Emergency Department if symptoms worsen or any other concerns. Please continue physical therapy on an outpatient basis. Is patient prescribed a controlled substance at d/c from ED?: No Referrals: Rick Luke MD [Primary Care Provider] - 1-2 days Time of Disposition: 21:21
[2023-12-05 20:37] VITALS: BP 162/82; PULSE 64; RESP 18
--- NOTE | 2023-12-05 21:00 | XR ---
EXAMINATION TYPE: XR knee complete RT DATE OF EXAM: 12/05/2023 8:53 PM CLINICAL INDICATION:Male, 72 years old with history of r knee "gave out". ambulatory since; [facility] COMPARISON: None. TECHNIQUE: XR knee complete RT; examined in Frontal, lateral and oblique projections. FINDINGS: Status post total knee arthroplasty changes with hardware in appropriate alignment and in tact. No evidence of fracture. IMPRESSION: Status post total knee arthroplasty changes with hardware intact and appropriate alignment. No fractu res identified.
== END 2023-12-05 21:33 | disposition home or self-care (01) ==
LOC: EC 18:32
DX: R53.1 Weakness (principal); J44.9 Chronic obstructive pulmonary disease, unspecified; E78.5 Hyperlipidemia, unspecified; I10 Essential (primary) hypertension; G47.30 Sleep apnea, unspecified; Z79.82 Long term (current) use of aspirin; Z79.01 Long term (current) use of anticoagulants; Z86.73 Personal history of transient ischemic attack (TIA), and cerebral infarction without residual deficits; Z79.899 Other long term (current) drug therapy; Z79.02 Long term (current) use of antithrombotics/antiplatelets; Z87.891 Personal history of nicotine dependence
CPT/HCPCS: 99284

== ENCOUNTER 2024-01-28 01:07 | Emergency (ER) | payer MEDICARE, OTHER ==
--- NOTE | 2024-01-28 01:26 | ED ---
Fall HPI - General Chief Complaint: Fall Stated Complaint: Fall, R Buttock Laceration Time Seen by Provider: 01/28/24 01:15 Source: EMS Mode of arrival: EMS - History of Present Illness Initial Comments: 73-year-old male with a past medical history significant for blood thinner use presenting to the ED with a chief complaint of fall. Patient states that he was reaching for the lights when he lost his balance causing him to fall onto his left side. During the fall he notes that his right buttock hit the wheelchair and he landed on carpet. He is unsure of head injury at this time however denies any other injuries. Reports that he is not in any pain at this time. No chest pain or shortness of breath preceding the fall. No other complaints at this time. - Related Data Home Medications Medication Instructions Recorded Confirmed Atorvastatin [Lipitor] 80 mg PO HS 05/26/17 08/30/23 Aspirin EC [Ecotrin Low Dose] 81 mg PO DAILY 02/12/18 08/30/23 calcitrioL 0.25 mcg PO MOWETH 10/07/18 08/30/23 Clopidogrel [Plavix] 75 mg PO DAILY 12/08/19 08/30/23 Famotidine [Pepcid] 20 mg PO BID 11/18/20 08/30/23 Sertraline HCl [Zoloft] 50 mg PO HS 11/18/20 08/30/23 amLODIPine [Norvasc] 5 mg PO DAILY 05/24/22 08/30/23 Ascorbic Acid [Vitamin C] 1,000 mg PO DAILY 07/24/22 08/30/23 Melatonin [Melatonin ER] 10 mg PO HS 07/24/22 08/30/23 Zinc Gluconate [Zinc] 50 mg PO DAILY 07/24/22 08/30/23 Previous Rx's Medication Instructions Recorded Furosemide [Lasix] 20 mg PO DAILY #5 tab 06/15/23 Albuterol Nebulized [Ventolin 2.5 mg INHALATION Q4H PRN #25 each 09/01/23 Nebulized] Albuterol Sulfate [Proair 1 puff INHALATION Q6H PRN #1 each 09/01/23 Digihaler] Azithromycin [Zithromax] 500 mg PO DAILY #5 tab 09/01/23 predniSONE 50 mg PO DAILY #5 tab 09/01/23 Ciprofloxacin HCl [Cipro] 500 mg PO Q12HR #14 tablet 10/06/23 Allergies Allergy/AdvReac Type Severity Reaction Status Date / Time No Known Allergies Allergy Verified 10/05/23 20:42 Review of Systems ROS Statement: Those systems with pertinent positive or pertinent negative responses have been documented in the HPI. ROS Other: All systems not noted in ROS Statement are negative. 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 Loop recorder removed 12/30/21.dementia History of Any Multi-Drug Resistant Organisms: None Reported Past Surgical History: Hernia Repair, Joint Replacement Additional Past Surgical History / Comment(s): 06/01/17 intracranial angioplasty- (pt stated "he has stents') HFH, EGD with peg tube insertion since removed, R inguinal hernia repair, R total knee arthroplasty, colonoscopies with last one in 2019-normal., soniya eye cat sx, loop recorder since removed. Past Anesthesia/Blood Transfusion Reactions: No Reported Reaction Past Psychological History: No Psychological Hx Reported Smoking Status: Former smoker Past Alcohol Use History: None Reported Past Drug Use History: None Reported - Past Family History Mother Family Medical History: CVA/TIA, Diabetes Mellitus, Hyperlipidemia, Hypertension Father Family Medical History: CVA/TIA, Hypertension General Exam General appearance: alert, in no apparent distress Neck exam: Present: other (Cervical collar in place) Respiratory exam: Present: normal lung sounds bilaterally Cardiovascular Exam: Present: regular rate GI/Abdominal exam: Present: soft Extremities exam: Present: other (Full active range of motion of bilateral upper lower extremities. Pelvis stable. No midline spinal tenderness to palpation.) Neurological exam: Present: alert, oriented X3 Skin exam: Present: warm, dry, other (Approximately 5 cm laceration to the lower lateral right buttock) Course Vital Signs 01/28/24 01/28/24 01:10 03:57 Temperature 98.4 F Pulse Rate 67 71 Respiratory 18 16 Rate Blood Pressure 167/83 164/86 O2 Sat by Pulse 97 97 Oximetry Medical Decision Making - Medical Decision Making Was pt. sent in by a medical professional or institution (, DEJA, TUTORING MANAGER, urgent care, hospital, or halfway...) When possible be specific @ -No Did you speak to anyone other than the patient for history (EMS, parent, family, police, friend...)? What history was obtained from this source @ -No Did you review nursing and triage notes (agree or disagree)? Why? @ -I reviewed and agree with nursing and triage notes Were old charts reviewed (outside hosp., previous admission, EMS record, old EKG, old radiological studies, urgent care reports/EKG's, halfway records)? Report findings @ -No old charts were reviewed Differential Diagnosis (chest pain, altered mental status, abdominal pain women, abdominal pain men, vaginal bleeding, weakness, fever, dyspnea, syncope, headache, dizziness, GI bleed, back pain, seizure, CVA, palpatations, mental health, musculoskeletal)? @ -Differential Musculoskeletal Muscular strain, contusion, ligament sprain, fracture, arthritis, septic arthritis, bursitis, cellulitis, muscle spasm, nerve compression, DVT, arterial occlusion, herpes zoster, electrolyte abnormality, tumor.... This is not meant to be in all inclusive list EKG interpreted by me (3pts min.). @ -None X-rays interpreted by me (1pt min.). @ -None done CT interpreted by me (1pt min.). @ -CT brain and cervical spine interpreted me which revealed no evidence of acute finding. U/S interpreted by me (1pt. min.). @ -None done What testing was considered but not performed or refused? (CT, X-rays, U/S, labs)? Why? @ -None What meds were considered but not given or refused? Why? @ -None Did you discuss the management of the patient with other professionals (professionals i.e. DEJA Cosme, TUTORING MANAGER, lab, RT, psych nurse, oncology social work, chain splitter, teacher, campus safety officer, family independence case manager)? Give summary @ -No Was smoking cessation discussed for >3mins.? @ -No Was critical care preformed (if so, how long)? @ -No Were there social determinants of health that impacted care today? How? (Homelessness, low income, unemployed, alcoholism, drug addiction, transpo rtation, low edu. Level, literacy, decrease access to med. care, snf, rehab)? @ -No Was there de-escalation of care discussed even if they declined (Discuss DNR or withdrawal of care, Hospice)? DNR status @ -No What co-morbidities impacted this encounter? (DM, HTN, Smoking, COPD, CAD, Cancer, CVA, ARF, Chemo, Hep., AIDS, mental health diagnosis, sleep apnea, morbid obesity)? @ -None Was patient admitted / discharged? Hospital course, mention meds given and route, prescriptions, significant lab abnormalities, going to OR and other pertinent info. @ -Discharge 73-year-old male presenting status post mechanical fall. Patient reports he was trying to reach for the lights when he lost his balance and fell landing onto his left side onto carpet. During the fall states that his upper right leg hit his wheelchair wheel. Unsure of head injury at this time. Patient on blood thinners, therefore CT brain and cervical spine was performed which revealed no evidence of acute process. Patient at time of evaluation complains of 0 pain. Exam showed full active range of motion of bilateral upper lower extremities. Did reveal laceration to right lower lateral buttock. This was repaired. For further details please see procedure note. Tetanus updated. Discharged home in stable condition. Discussed return precautions with patient's who verbalized agreement. Undiagnosed new problem with uncertain prognosis? @ -No Drug Therapy requiring intensive monitoring for toxicity (Heparin, Nitro, Insulin, Cardizem)? @ -No Were any procedures done? @ -Yes, laceration repair Diagnosis/symptom? @ -Status post mechanical fall on thinners, laceration Acute, or Chronic, or Acute on Chronic? @ -Acute Uncomplicated (without systemic symptoms) or Complicated (systemic symptoms)? @ -Uncomplicated Side effects of treatment? @ -No Exacerbation, Progression, or Severe Exacerbation? @ -No Poses a threat to life or bodily function? How? (Chest pain, [place], [place], pneumonia, PE, COPD, DKA, ARF, appy, cholecystitis, CVA, Diverticulitis, Homicidal, Suicidal, threat to staff... and all critical care pts) @ -No Disposition Clinical Impression: Fall, Laceration Disposition: HOME SELF-CARE Condition: Good Instructions (If sedation given, give patient instructions): Fall Prevention for Older Adults (ED) Additional Instructions: Please return to the Emergency Department if symptoms worsen or any other concerns. Please follow-up with your PCP. Please return in 10 to 14 days for suture removal. Is patient prescribed a controlled substance at d/c from ED?: No Referrals: Rick Luke MD [Primary Care Provider] - 1-2 days Time of Disposition: 03:59
[2024-01-28 01:59] VITALS: TEMP 98.4
[2024-01-28] MEDS: LIDOCAINE 1% INJ 10MG/ML (20 ML MDV) SQ ONE (02:20)
--- NOTE | 2024-01-28 02:37 | CT ---
726 images EXAM: CT Head Without Intravenous Contrast CLINICAL HISTORY: ITS.REASON CT Reason: s/p fall on thinners TECHNIQUE: Axial computed tomography images of the head/brain without intravenous contrast. CTDI is 45.2 mGy and DLP is 1004 mGy-cm. This CT exam was performed using one or more of the following dose reduction techniques: automated exposure control, adjustment of the mA and/or kV according to patient size, and/or use of iterative reconstruction technique. Coronal and sagittal reformatted images were created and reviewed. COMPARISON: No relevant prior studies available. FINDINGS: Brain: Moderate age-related generalized volume loss and chronic small vessel ischemic changes. Small old lacunar infarct right thalamus, tipton radiata and centrum semiovale. No hemorrhage. Ventricles: Unremarkable. No ventriculomegaly. Bones/joints: No acute findings. Soft tissues: Unremarkable. Sinuses: Unremarkable as visualized. No acute sinusitis. Mastoid air cells: Unremarkable as visualized. No mastoid effusion. Orbits: Bilateral cataracts surgeries. IMPRESSION: No intracranial hemorrhage or skull fracture. EXAM: CT Cervical Spine Without Intravenous Contrast CLINICAL HISTORY: ITS.REASON CT Reason: s/p fall on thinners TECHNIQUE: Axial computed tomography images of the cervical spine without intravenous contrast. CTDI is 18.1 mGy and DLP is 543.1 mGy-cm. This CT exam was performed using one or more of the following dose reduction techniques: automated exposure control, adjustment of the mA and/or kV according to patient size, and/or use of iterative reconstruction technique. Coronal and sagittal reformatted images were created and reviewed. COMPARISON: No relevant prior studies available. FINDINGS: Vertebrae: Mild mid cervical scoliosis convexed to the left. No fracture. Discs/spinal canal/neural foramina: Mild to moderate degenerative disc disease. Soft tissues: Unremarkable. IMPRESSION: No acute findings in the cervical spine.
[2024-01-28] MEDS: BACITRACIN OINT 1 EACH PACKET TOPICAL ONE (03:56)
[2024-01-28] MEDS: DIPH,PERTUS(ACELL)TETVAC-LF 0.5 ML VIAL IM ONE (04:14)
[2024-01-28 04:24] VITALS: BP 164/86; PULSE 71; RESP 16
== END 2024-01-28 04:28 | disposition home or self-care (01) ==
LOC: EC 01:07
DX: S31.811A Laceration without foreign body of right buttock, initial encounter (principal); Z87.891 Personal history of nicotine dependence; Z23 Encounter for immunization; W18.09XA Striking against other object with subsequent fall, initial encounter
CPT/HCPCS: 72125; 70450; 90715; 99284; 90471; 12002; J2001

== ENCOUNTER → 2024-05-13 | Outpatient (CLI) | payer MEDICARE, OTHER ==
--- NOTE | 2024-05-13 21:15 | US ---
EXAMINATION TYPE: US kidneys/renal and bladder DATE OF EXAM: 05/13/2024 COMPARISON: NONE CLINICAL INDICATION: Male, 73 years old with history of N18.31 CKD, STAGE 3A; CKD, no symptoms EXAM MEASUREMENTS: Right Kidney: 8.8 x 3.7 x 4.9 cm Left Kidney: 9.0 x 4.3 x 6.0 cm Right Kidney: small in size Left Kidney: 4.4 x 4.4 x 4.5cm Bladder: wnl There is a 4.4 x 4.5 cm simple cyst on the left kidney IMPRESSION: Left renal cyst
== END | disposition home or self-care (01) ==
LOC: RADUSWWP 15:55
PROVIDERS: ATTEND Internal Medicine
DX: N18.31 Chronic kidney disease, stage 3a (principal); N28.1 Cyst of kidney, acquired
CPT/HCPCS: 76770

== ENCOUNTER 2024-07-07 18:28 | Emergency (ER) | payer MEDICARE, OTHER ==
[2024-07-07 18:47] VITALS: TEMP 97.8
--- NOTE | 2024-07-07 19:18 | ED ---
General Adult HPI - General Source: patient, RN notes reviewed Mode of arrival: wheelchair Limitations: no limitations <Bharti Zhu - Last Filed: 07/07/24 19:17> <Santhosh Rivera - Last Filed: 07/15/24 08:40> - General Chief complaint: Altered Mental Status Stated complaint: UTI, Swollen Time Seen by Provider: 07/07/24 18:40 - History of Present Illness Initial comments: Quick [id number] history of dementia and stroke with left-sided deficits presents emergency department accompanied by his with chief complaint of bilateral lower extremity edema. Patient's is concerned that he may have a urinary tract infection as well as dehydration. States that patient is chronically dehydrated he has been having issues with incontinence. Has history of congestive heart failure. Currently denying symptoms of chest pain, shortness of breath, difficulty breathing, fevers, chills, nausea, vomiting, c ough, rhinorrhea. (Bharti Zhu) - Related Data Home Medications Medication Instructions Recorded Confirmed Atorvastatin [Lipitor] 80 mg PO HS 05/26/17 08/30/23 Aspirin EC [Ecotrin Low Dose] 81 mg PO DAILY 02/12/18 08/30/23 calcitrioL 0.25 mcg PO MOWETH 10/07/18 08/30/23 Clopidogrel [Plavix] 75 mg PO DAILY 12/08/19 08/30/23 Famotidine [Pepcid] 20 mg PO BID 11/18/20 08/30/23 Sertraline HCl [Zoloft] 50 mg PO HS 11/18/20 08/30/23 amLODIPine [Norvasc] 5 mg PO DAILY 05/24/22 08/30/23 Ascorbic Acid [Vitamin C] 1,000 mg PO DAILY 07/24/22 08/30/23 Melatonin [Melatonin ER] 10 mg PO HS 07/24/22 08/30/23 Zinc Gluconate [Zinc] 50 mg PO DAILY 07/24/22 08/30/23 Previous Rx's Medication Instructions Recorded Furosemide [Lasix] 20 mg PO DAILY #5 tab 06/15/23 Albuterol Nebulized [Ventolin 2.5 mg INHALATION Q4H PRN #25 each 09/01/23 Nebulized] Albuterol Sulfate [Proair 1 puff INHALATION Q6H PRN #1 each 09/01/23 Digihaler] Azithromycin [Zithromax] 500 mg PO DAILY #5 tab 09/01/23 predniSONE 50 mg PO DAILY #5 tab 09/01/23 Ciprofloxacin HCl [Cipro] 500 mg PO Q12HR #14 tablet 10/06/23 Magnesium Oxide [Mag-Ox] 400 mg PO DAILY #14 tablet 07/08/24 Allergies Allergy/AdvReac Type Severity Reaction Status Date / Time No Known Allergies Allergy Verified 07/07/24 18:47 Review of Systems ROS Other: All systems not noted in ROS Statement are negative. <Bharti Zhu - Last Filed: 07/07/24 19:17> ROS Other: All systems not noted in ROS Statement are negative. <Santhosh Rivera - Last Filed: 07/15/24 08:40> ROS Statement: Those systems with pertinent positive or pertinent negative responses have been documented in the HPI. 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 Loop recorder removed 12/30/21.dementia History of Any Multi-Drug Resistant Organisms: None Reported Past Surgical History: Hernia Repair, Joint Replacement Additional Past Surgical History / Comment(s): 06/01/17 intracranial angioplasty- (pt stated "he has stents') HFH, EGD with peg tube insertion since removed, R inguinal hernia repair, R total knee arthroplasty, colonoscopies with last one in 2019-normal., soniya eye cat sx, loop recorder since removed. Past Anesthesia/Blood Transfusion Reactions: No Reported Reaction Past Psychological History: No Psychological Hx Reported Smoking Status: Former smoker Past Alcohol Use History: None Reported Past Drug Use History: None Reported - Past Family History Mother Family Medical History: CVA/TIA, Diabetes Mellitus, Hyperlipidemia, Hypertension Father Family Medical History: CVA/TIA, Hypertension <Bharti Zhu - Last Filed: 07/07/24 19:17> General Exam Limitations: no limitations <Bharti Zhu - Last Filed: 07/07/24 19:17> Limitations: no limitations General appearance: alert, in no apparent distress Head exam: Present: atraumatic, normocephalic Eye exam: Present: normal appearance. Absent: scleral icterus, conjunctival injection Neck exam: Present: normal inspection Respiratory exam: Present: wheezes (Trace expiratory wheeze). Absent: respiratory distress, rales, rhonchi, stridor, accessory muscle use Cardiovascular Exam: Present: regular rate, normal rhythm, normal heart sounds. Absent: systolic murmur, diastolic murmur, rubs, gallop GI/Abdominal exam: Present: soft. Absent: distended, tenderness, guarding, rebound, rigid, mass Extremities exam: Present: normal capillary refill, pedal edema. Absent: calf tenderness Back exam: Present: normal inspection. Absent: CVA tenderness (R), CVA tenderness (L) Neurological exam: Present: alert Skin exam: Present: warm, dry, intact, normal color. Absent: rash <ChristieSanthosh jenkins - Last Filed: 07/15/24 08:40> - General Exam Comments Initial Comments: Visual Physical Exam Vital signs reviewed General: Well-appearing, nontoxic, no acute distress. Head: Normocephalic, atraumatic Eyes: PERRLA, EOMI ENT: Airway patent Chest: Nonlabored breathing Skin: No visual rash, normal skin tone Neuro: Alert and oriented 3 Musculoskeletal: No gross abnormalities (Bharti Zhu) Course Vital Signs 07/07/24 07/07/24 07/07/24 18:44 22:49 23:27 Temperature 97.8 F Pulse Rate 63 60 62 Respiratory 16 18 16 Rate Blood Pressure 157/87 171/104 171/90 O2 Sat by Pulse 98 95 97 Oximetry 07/08/24 07/08/24 01:15 03:06 Temperature Pulse Rate 62 79 Respiratory 18 16 Rate Blood Pressure 171/100 170/97 O2 Sat by Pulse 96 97 Oximetry EKG Findings - EKG Results: EKG: sinus rhythm EKG shows: bradycardia (59 bpm) - Blocks, [place], Hypertrophy, ST Abn: QRS axis and voltage: left axis deviation (-30 to -90) (Borderline) Chamber hypertrophy or enlargement: only voltage criteria for left ventricular hypertrophy Repolarization changes or abnormalities: nonspecific abnormality, ST segment, and/or T wave <Santhosh Rivera - Last Filed: 07/15/24 08:40> Medical Decision Making <Bharti Zhu - Last Filed: 07/07/24 19:17> - Lab Data Result diagrams: 07/07/24 20:01 07/07/24 20:01 <Santhosh Rivera - Last Filed: 07/15/24 08:40> - Medical Decision Making I completed the quick note portion of this chart signed Bharti Zhu PA-C (Bharti Zhu) The patient had chest x-ray that I interpreted as negative for acute infiltrate, pneumothorax, congestive heart failure The patient had duplex Doppler of the extremity that I interpreted as negative for acute DVT Was pt. sent in by a medical professional or institution (DEJA Cosme, ATMOSPHERIC SCIENCES PROFESSOR, urgent care, hospital, or group home...) When possible be specific @ -[No] Did you speak to anyone other than the patient for history (EMS, parent, family, police, friend...)? What history was obtained from this source @ -[The patient's did give significant history Did you review nursing and triage notes (agree or disagree)? Why? @ -[I reviewed and agree with nursing and triage notes] Were old charts reviewed (outside hosp., previous admission, EMS record, old EKG, old radiological studies, urgent care reports/EKG's, group home records)? Report findings @ -[No old charts were reviewed] Differential Diagnosis (chest pain, altered mental status, abdominal pain women, abdominal pain men, vaginal bleeding, weakness, fever, dyspnea, syncope, headache, dizziness, GI bleed, back pain, seizure, CVA, palpatations, mental health, musculoskeletal)? @ -[Differential Altered Mental Status: Hypoglycemia, DKA, hypercapnia, ETOH, overdose, CO poisoning, trauma, myxedema coma, HTN encephalopathy, infection, encephalitis, psychosis, intercranial hemorrhage, hepatic encephalopathy, meningitis, CVA, this is not meant to be an all-inclusive list EKG interpreted by me (3pts min.). @ -[I interpreted as above] X-rays interpreted by me (1pt min.). @ -[I interpreted as above CT interpreted by me (1pt min.). @ -[None done] U/S interpreted by me (1pt. min.). @ -[I interpreted as above What testing was considered but not performed or refused? (CT, X-rays, U/S, labs)? Why? @ -[None] What meds were considered but not given or refused? Why? @ -[None] Did you discuss the management of the patient with other professionals (professionals i.e. , PA, ATMOSPHERIC SCIENCES PROFESSOR, lab, RT, psych nurse, social service director, certified diabetes educator, teacher, youth probation officer, outsole caser)? Give summary @ -[No] Was smoking cessation discussed for >3mins.? @ -[No] Was critical care preformed (if so, how long)? @ -[No] Were there social determinants of health that impacted care today? How? (Homelessness, low income, unemployed, alcoholism, drug addiction, transportation, low edu. Level, literacy, decrease access to med. care, [facility] [facility], rehab)? @ -[No] Was there de-escalation of care discussed even if they declined (Discuss DNR or withdrawal of care, Hospice)? DNR status @ -[No] What co-morbidities impacted this encounter? (DM, HTN, Smoking, COPD, CAD, Cancer, CVA, ARF, Chemo, Hep., AIDS, mental health diagnosis, sleep apnea, morbid obesity)? @ -[ Dementia Was patient admitted / discharged? Hospital course, mention meds given and route, prescriptions, significant lab abnormalities, going to OR and other pertinent info. @ -[Patient is 73-year-old man here to have evaluation for altered mental status and leg edema. The workup does show some hypomagnesemia which is corrected. On reevaluation, the patient stable to continue as outpatient discussed appropriate further care and follow-up as well as return parameters. Undiagnosed new problem with uncertain prognosis? @ -[No] Drug Therapy requiring intensive monitoring for toxicity (Heparin, Nitro, Insulin, Cardizem)? @ -[No] Were any procedures done? @ -[No] Diagnosis/symptom? @ -[ Edema, left leg greater than right Hypomagnesemia Dementia, chronic Acute, or Chronic, or Acute on Chronic? @ -[Acute Uncomplicated (without systemic symptoms) or Complicated (systemic symptoms)? @ -[Uncomplicated Side effects of treatment? @ -[No] Exacerbation, Progression, or Severe Exacerbation? @ -[No] Poses a threat to life or bodily function? How? (Chest pain, [place], [place], pneumonia, PE, COPD, DKA, ARF, appy, cholecystitis, CVA, Diverticulitis, Homicidal, Suicidal, threat to staff... and all critical care pts) @ -[No] (Santhosh Rivera) - Lab Data Lab Results 07/07/24 07/07/24 07/07/24 Range/Units 20:01 20:01 20:01 WBC 5.9 (3.8-10.6) k/uL RBC 3.82 L (4.30-5.90) m/uL Hgb 12.0 L (13.0-17.5) gm/dL Hct 36.9 L (39.0-53.0) % MCV 96.6 (80.0-100.0) fL MCH 31.4 (25.0-35.0) pg MCHC 32.5 (31.0-37.0) g/dL RDW 16.8 H (11.5-15.5) % Plt Count 277 (150-450) k/uL MPV 7.7 Neutrophils % 57 % Lymphocytes % 31 % Monocytes % 6 % Eosinophils % 3 % Basophils % 1 % Neutrophils # 3.4 (1.3-7.7) k/uL Lymphocytes # 1.9 (1.0-4.8) k/uL Monocytes # 0.4 (0-1.0) k/uL Eosinophils # 0.2 (0-0.7) k/uL Basophils # 0.0 (0-0.2) k/uL Anisocytosis Slight Sodium 140 (137-145) mmol/L Potassium 3.9 (3.5-5.1) mmol/L Chloride 103 (98-107) mmol/L Carbon Dioxide 29 (22-30) mmol/L Anion Gap 8 mmol/L BUN 23 H (9-20) mg/dL Creatinine 1.65 H (0.66-1.25) mg/dL Est GFR (CKD-EPI)AfAm 47 (>60 ml/min/1.73 sqM) Est GFR (CKD-EPI)NonAf 40 (>60 ml/min/1.73 sqM) Glucose 89 (74-99) mg/dL Calcium 9.9 (8.4-10.2) mg/dL Magnesium 1.5 L (1.6-2.3) mg/dL Total Bilirubin 0.7 (0.2-1.3) mg/dL AST 24 (17-59) U/L ALT 23 (4-49) U/L Alkaline Phosphatase 113 (38-126) U/L NT-Pro-B Natriuret Pep 310 pg/mL Total Protein 7.3 (6.3-8.2) g/dL Albumin 4.2 (3.5-5.0) g/dL Urine Color Yellow Urine Appearance Clear (Clear) Urine pH 6.0 (5.0-8.0) Ur Specific [place] 1.023 (1.001-1.035) Urine Protein Trace H (Negative) Urine Glucose (UA) Negative (Negative) Urine Ketones Negative (Negative) Urine Blood Negative (Negative) Urine Nitrite Negative (Negative) Urine Bilirubin Negative (Negative) Urine Urobilinogen <2.0 (<2.0) mg/dL Ur Leukocyte Esterase Negative (Negative) Disposition <Bharti Zhu - Last Filed: 07/07/24 19:17> Is patient prescribed a controlled substance at d/c from ED?: No <Santhosh Rivera - Last Filed: 07/15/24 08:40> Clinical Impression: Edema, Hypomagnesemia Disposition: HOME SELF-CARE Condition: Good Instructions (If sedation given, give patient instructions): Leg Edema (ED), Hypomagnesemia (ED) Prescriptions: Magnesium Oxide [Mag-Ox] 400 mg PO DAILY #14 tablet Referrals: Rick Luke MD [Primary Care Provider] - 1-2 days
[2024-07-07 21:13] LABS: Appearance,Urine Clear (Clear); Bilirubin,Urine Negative (Negative); Blood,Urine Negative (Negative); Color,Urine Yellow; Glucose,Urine (UA) Negative (Negative); Ketones,Urine Negative (Negative); Leukocyte Esterase,Urine Negative (Negative); Nitrite,Urine Negative (Negative); Protein,Urine Trace (Negative); Specific Gravity,Urine 1.023 (1.001-1.035); Urobilinogen,Urine <2.0 mg/dL (<2.0)
[2024-07-07 21:14] LABS: Anisocytosis Slight; Basophils % (A) 1 %; Eosinophils # (A) 0.2 k/uL (0-0.7); Eosinophils % (A) 3 %; HCT 36.9 % (39.0-53.0); Lymphocytes # (A) 1.9 k/uL (1.0-4.8); Lymphocytes % (A) 31 %; MCH 31.4 pg (25.0-35.0); MCHC 32.5 g/dL (31.0-37.0); MCV 96.6 fL (80.0-100.0); Mean Platelet Volume 7.7; Monocytes # (A) 0.4 k/uL (0-1.0); Monocytes % (A) 6 %; Neutrophils # (A) 3.4 k/uL (1.3-7.7); Neutrophils % (A) 57 %; Platelet Count 277 k/uL (150-450); RBC 3.82 m/uL (4.30-5.90); RDW 16.8 % (11.5-15.5); WBC 5.9 k/uL (3.8-10.6)
[2024-07-07 21:22] LABS: Potassium 3.9 mmol/L (3.5-5.1)
[2024-07-07 21:23] LABS: ALT 23 U/L (4-49); AST 24 U/L (17-59); African American GFR (CKD) 47 (>60 ml/min/1.73 sqM); Albumin 4.2 g/dL (3.5-5.0); Alkaline Phosphatase 113 U/L (38-126); Anion Gap 8 mmol/L; Blood Urea Nitrogen 23 mg/dL (9-20); Calcium 9.9 mg/dL (8.4-10.2); Carbon Dioxide 29 mmol/L (22-30); Chloride 103 mmol/L (98-107); Glucose 89 mg/dL (74-99); Magnesium 1.5 mg/dL (1.6-2.3); Non-African American GFR(CKD) 40 (>60 ml/min/1.73 sqM); Sodium 140 mmol/L (137-145); Total Bilirubin 0.7 mg/dL (0.2-1.3); Total Protein 7.3 g/dL (6.3-8.2)
[2024-07-07 21:30] LABS: NT-Pro-B-Type Natriuretic Pept 310 pg/mL
--- NOTE | 2024-07-08 01:03 | XR ---
EXAM: XR Chest, 2 Views CLINICAL HISTORY: XR Reason: edema/dyspnea TECHNIQUE: Frontal and lateral views of the chest. COMPARISON: Lower extremity ultrasound from July 07, 2024 FINDINGS: Lungs: Trace amount of scarring or atelectasis in the left costophrenic angle. No other infiltrates are identified. Pleural space: Unremarkable. No pneumothorax. Heart: The cardiac silhouette is upper normal in size. Mediastinum: Unremarkable. Normal mediastinal contour. Bones/joints: Mild osteophytosis in the lower thoracic spine. No acute fracture. Vasculature: The thoracic aorta is mildly tortuous and prominent. Upper abdomen: There is no pneumoperitoneum under the diaphragm. IMPRESSION: 1. The thoracic aorta is mildly tortuous and prominent. 2. Trace amount of scarring or atelectasis in the left costophrenic angle. No other infiltrates are identified.
--- NOTE | 2024-07-08 01:11 | US ---
EXAM: US Duplex Left Lower Extremity Veins CLINICAL HISTORY: US Reason: L Leg swelling, possible DVT TECHNIQUE: Real-time duplex ultrasound scan of the left lower extremity veins integrating B-mode two-dimensional vascular structure, Doppler spectral analysis, color flow Doppler imaging and compression. COMPARISON: No relevant prior studies available. FINDINGS: Deep veins: Unremarkable. No DVT in the visualized common femoral, femoral, proximal deep femoral or popliteal veins. The veins demonstrate normal color flow, are normally compressible, with normal phasic flow and/or augmentation response. Superficial veins: Unremarkable. No thrombus in the visualized great saphenous vein. Soft tissues: No acute findings. No popliteal cyst. IMPRESSION: Negative left lower extremity duplex venous ultrasound. No evidence of DVT.
[2024-07-08] MEDS: MAGNESIUM SULFATE-D5W PMX 1 GM in DEXTROSE/WATER 1 100ML.BAG IVPB ONE (01:51)
[2024-07-08 03:07] VITALS: BP 170/97; PULSE 79; RESP 16
== END 2024-07-08 03:07 | disposition home or self-care (01) ==
LOC: EC 18:28
DX: E83.42 Hypomagnesemia (principal); R60.0 Localized edema; F03.90 Unspecified dementia, unspecified severity, without behavioral disturbance, psychotic disturbance, mood disturbance, and anxiety; Z86.73 Personal history of transient ischemic attack (TIA), and cerebral infarction without residual deficits; Z87.891 Personal history of nicotine dependence
CPT/HCPCS: 36415; 93005; 83880; 80053; 83735; 85025; 81003; 71046; 93971; 99285; 96365; J3475

== ENCOUNTER 2024-09-06 04:25 | Emergency (ER) | payer MEDICARE, OTHER ==
--- NOTE | 2024-09-06 05:54 | ED ---
Dizziness HPI <Oni Joseph - Last Filed: 09/06/24 11:00> - General Source: patient, EMS Mode of arrival: EMS - History of Present Illness MD Complaint: dizziness, difficulty walking -: hour(s) Timing: sudden onset Description: "room spinning", off-balance, difficulty walking History of Same: Yes Severity: moderate Improves With: remaining still Worsens With: movement Associated Symptoms: denies other symptoms <Santhosh Rivera - Last Filed: 09/06/24 18:32> - General Chief Complaint: Dizziness Stated Complaint: Dizziness - History of Present Illness Initial Comments: 73-year-old man who states that he had gotten up tonight, and he was walking from the bedroom to the living room when he noticed that he was bouncing off the wall as he was walking. He was feeling dizzy and a little lightheaded. Patient states that he sat down and continued to feel off balance so EMS was called and brought him here. He notes that they told him his blood pressure was high when they arrived. Patient states that while waiting here he is feeling a little better but notes that he has not been up trying to walk. Patient denies headache. Denies neurologic symptoms. No chest pain, dyspnea, diaphoresis. (Santhosh Rivera) - Related Data Home Medications Medication Instructions Recorded Confirmed Atorvastatin [Lipitor] 80 mg PO HS 05/26/17 08/30/23 Aspirin EC [Ecotrin Low Dose] 81 mg PO DAILY 02/12/18 08/30/23 calcitrioL 0.25 mcg PO MOWETH 10/07/18 08/30/23 Clopidogrel [Plavix] 75 mg PO DAILY 12/08/19 08/30/23 Famotidine [Pepcid] 20 mg PO BID 11/18/20 08/30/23 Sertraline HCl [Zoloft] 50 mg PO HS 11/18/20 08/30/23 amLODIPine [Norvasc] 5 mg PO DAILY 05/24/22 08/30/23 Ascorbic Acid [Vitamin C] 1,000 mg PO DAILY 07/24/22 08/30/23 Melatonin [Melatonin Tr] 10 mg PO HS 07/24/22 08/30/23 Zinc Gluconate [Zinc] 50 mg PO DAILY 07/24/22 08/30/23 Previous Rx's Medication Instructions Recorded Furosemide [Lasix] 20 mg PO DAILY #5 tab 06/15/23 Albuterol Nebulized [Ventolin 2.5 mg INHALATION Q4H PRN #25 each 09/01/23 Nebulized] Albuterol Sulfate [Proair 1 puff INHALATION Q6H PRN #1 each 09/01/23 Digihaler] Azithromycin [Zithromax] 500 mg PO DAILY #5 tab 09/01/23 predniSONE 50 mg PO DAILY #5 tab 09/01/23 Ciprofloxacin HCl [Cipro] 500 mg PO Q12HR #14 tablet 10/06/23 Magnesium Oxide [Mag-Ox] 400 mg PO DAILY #14 tablet 07/08/24 Meclizine [Antivert] 25 mg PO TID #20 tab 09/06/24 Allergies Allergy/AdvReac Type Severity Reaction Status Date / Time No Known Allergies Allergy Verified 09/06/24 05:03 Review of Systems ROS Other: All systems not noted in ROS Statement are negative. <Oni Joseph - Last Filed: 09/06/24 11:00> ROS Other: All systems not noted in ROS Statement are negative. Constitutional: Denies: fever, chills, weakness Eyes: Denies: vision change Respiratory: Denies: cough, dyspnea Cardiovascular: Denies: chest pain, palpitations, edema, syncope Gastrointestinal: Denies: abdominal pain, nausea, vomiting, diarrhea Genitourinary: Denies: dysuria, hematuria Musculoskeletal: Denies: back pain Skin: Denies: rash Neurological: Reports: vertigo. Denies: headache, weakness, numbness, confusion <Santhosh Rivera - Last Filed: 09/06/24 18:32> ROS Statement: Those systems with pertinent positive or pertinent negative responses have been documented in the HPI. 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 Loop recorder removed 12/30/21.dementia History of Any Multi-Drug Resistant Organisms: None Reported Past Surgical History: Hernia Repair, Joint Replacement Additional Past Surgical History / Comment(s): 06/01/17 intracranial angioplasty- (pt stated "he has stents') HFH, EGD with peg tube insertion since removed, R inguinal hernia repair, R total knee arthroplasty, colonoscopies with last one in 2019-normal., soniya eye cat sx, loop recorder since removed. Past Anesthesia/Blood Transfusion Reactions: No Reported Reaction Past Psychological History: No Psychological Hx Reported Smoking Status: Former smoker Past Alcohol Use History: None Reported Past Drug Use History: None Reported - Past Family History Mother Family Medical History: CVA/TIA, Diabetes Mellitus, Hyperlipidemia, Hypertension Father Family Medical History: CVA/TIA, Hypertension <Santhosh Rivera - Last Filed: 09/06/24 18:32> General Exam General appearance: alert, in no apparent distress Head exam: Present: atraumatic, normocephalic Eye exam: Present: normal appearance, PERRL, EOMI. Absent: scleral icterus, conjunctival injection, nystagmus ENT exam: Present: normal oropharynx, mucous membranes dry Neck exam: Present: normal inspection Respiratory exam: Present: normal lung sounds bilaterally. Absent: respiratory distress, wheezes, rales, rhonchi, stridor, accessory muscle use Cardiovascular Exam: Present: regular rate, normal rhythm, normal heart sounds. Absent: systolic murmur, diastolic murmur, rubs, gallop GI/Abdominal exam: Present: soft. Absent: distended, tenderness, guarding, rebound, rigid, mass Extremities exam: Present: normal inspection, normal capillary refill. Absent: pedal edema, calf tenderness Back exam: Present: normal inspection. Absent: CVA tenderness (R), CVA tenderness (L) Neurological exam: Present: alert, oriented X3, CN II-XII intact. Absent: motor sensory deficit Skin exam: Present: warm, dry, intact, normal color. Absent: rash <Santhosh Rivera - Last Filed: 09/06/24 18:32> Course Vital Signs 09/06/24 09/06/24 09/06/24 04:57 08:07 08:30 Temperature 98.6 F Pulse Rate 66 66 63 Respiratory 18 21 18 Rate Blood Pressure 161/86 176/104 173/99 O2 Sat by Pulse 95 98 95 Oximetry 09/06/24 12:23 Temperature 98 F Pulse Rate 59 L Respiratory 18 Rate Blood Pressure 157/89 O2 Sat by Pulse 97 Oximetry EKG Findings - EKG Results: EKG: interpreted by ERMD, sinus rhythm (Rate 72 bpm), normal axis - Blocks, Berthold, Hypertrophy, ST Abn: Chamber hypertrophy or enlargement: left ventricular hypertrophy or enlargement (LVE) <Santhosh Rivera - Last Filed: 09/06/24 18:32> Medical Decision Making - Lab Data Result diagrams: 09/06/24 06:08 09/06/24 06:08 <Oni Joseph - Last Filed: 09/06/24 11:00> - Lab Data Result diagrams: 09/06/24 06:08 09/06/24 06:08 <Santhosh Rivera - Last Filed: 09/06/24 18:32> - Medical Decision Making Was patient admitted / discharged? Hospital course, mention meds given and route, prescriptions, significant lab abnormalities, going to OR and other pert inent info. @ -This patient was signed out to me at [address] Conway. CTA of the head and neck was performed and showed no acute abnormality. Patient was able to get up and ambulate without problem. Patient wants to be discharged. Undiagnosed new problem with uncertain prognosis? @ -No Drug Therapy requiring intensive monitoring for toxicity (Heparin, Nitro, Insulin, Cardizem)? @ -No Were any procedures done? @ -No Diagnosis/symptom? @ -Referred Acute, or Chronic, or Acute on Chronic? @ -Acute Uncomplicated (without systemic symptoms) or Complicated (systemic symptoms)? @ -Complicate Side effects of treatment? @ -No Exacerbation, Progression, or Severe Exacerbation? @ -No Poses a threat to life or bodily function? How? (Chest pain, USA, NC, pneumonia, PE, COPD, DKA, ARF, appy, cholecystitis, CVA, Diverticulitis, Homicidal, Suicidal, threat to staff... and all critical care pts) @ -No (Oni Joseph) The patient had chest x-ray that I interpreted as negative for acute infiltrate, pneumothorax, congestive heart failure Was pt. sent in by a medical professional or institution ([facility] Cosme, HOUSE DESIGNER, urgent care, hospital, or care home...) When possible be specific @ -[No] Did you speak to anyone other than the patient for history (EMS, parent, family, police, friend...)? What history was obtained from this source @ -[No] Did you review nursing and triage notes (agree or disagree)? Why? @ -[I reviewed and agree with nursing and triage notes] Were old charts reviewed (outside hosp., previous admission, EMS record, old EKG, old radiological studies, urgent care reports/EKG's, care home records)? Report findings @ -[No old charts were reviewed] Differential Diagnosis (chest pain, altered mental status, abdominal pain women, abdominal pain men, vaginal bleeding, weakness, fever, dyspnea, syncope, headache, dizziness, GI bleed, back pain, seizure, CVA, palpatations, mental health, musculoskeletal)? @ -[Differential Dizziness: Benign paroxysmal positional Vertigo, Meniere's disease, otitis media, acoustic neuroma, vertebrobasilar insufficiency, cerebellar stroke, encephalitis, hypovolemic, arrhythmia, coronary artery syndrome, anemia, this is not meant to be an all-inclusive list EKG interpreted by me (3pts min.). @ -[Interpreted as above] X-rays interpreted by me (1pt min.). @ -I interpreted as above CT interpreted by me (1pt min.). @ -[None done] U/S interpreted by me (1pt. min.). @ -[None done] What testing was considered but not performed or refused? (CT, X-rays, U/S, labs)? Why? @ -[None] What meds were considered but not given or refused? Why? @ -[None] Did you discuss the management of the patient with other professionals (professionals i.e. DEJA Cosme, HOUSE DESIGNER, lab, RT, psych nurse, social media project manager, road sign installer, teacher, svp chief marketing officer, transplant case manager)? Give summary @ -[No] Was smoking cessation discussed for >3mins.? @ -[No] Was critical care preformed (if so, how long)? @ -[No] Were there social determinants of health that impacted care today? How? (Homelessness, low income, unemployed, alcoholism, drug addiction, transportation, low edu. Level, literacy, decrease access to med. care, retirement, rehab)? @ -[No] Was there de-escalation of care discussed even if they declined (Discuss DNR or withdrawal of care, Hospice)? DNR status @ -[No] What co-morbidities impacted this encounter? (DM, HTN, Smoking, COPD, CAD, Cancer, CVA, ARF, Chemo, Hep., AIDS, mental health diagnosis, sleep apnea, morbid obesity)? @ -[Diabetes, hypertension Was patient admitted / discharged? Hospital course, mention meds given and rout e, prescriptions, significant lab abnormalities, going to OR and other pertinent info. @ -Patient is 73-year-old man presenting with a feeling of dizziness and being off balance while walking. He was pending the CAT scan at the time of shift change. (Santhosh Rivera) - Lab Data Lab Results 09/06/24 09/06/24 09/06/24 Range/Units 06:08 06:08 06:08 WBC 7.6 (3.8-10.6) k/uL RBC 3.83 L (4.30-5.90) m/uL Hgb 11.6 L (13.0-17.5) gm/dL Hct 37.5 L (39.0-53.0) % MCV 98.1 (80.0-100.0) fL MCH 30.3 (25.0-35.0) pg MCHC 30.9 L (31.0-37.0) g/dL RDW 16.3 H (11.5-15.5) % Plt Count 289 (150-450) k/uL MPV 7.3 Neutrophils % 64 % Lymphocytes % 25 % Monocytes % 6 % Eosinophils % 3 % Basophils % 0 % Neutrophils # 4.9 (1.3-7.7) k/uL Lymphocytes # 1.9 (1.0-4.8) k/uL Monocytes # 0.5 (0-1.0) k/uL Eosinophils # 0.2 (0-0.7) k/uL Basophils # 0.0 (0-0.2) k/uL Hypochromasia Slight Anisocytosis Slight Macrocytosis Slight Sodium 139 (137-145) mmol/L Potassium 3.8 (3.5-5.1) mmol/L Chloride 103 (98-107) mmol/L Carbon Dioxide 28 (22-30) mmol/L Anion Gap 8 mmol/L BUN 21 H (9-20) mg/dL Creatinine 1.47 H (0.66-1.25) mg/dL Est GFR (CKD-EPI)AfAm 54 (>60 ml/min/1.73 sqM) Est GFR (CKD-EPI)NonAf 46 (>60 ml/min/1.73 sqM) Glucose 256 H (74-99) mg/dL POC Glucose (mg/dL) (70-110) mg/dL POC Glu Sand Mill Operator ID Plasma Lactic Acid Del 1.2 (0.7-2.0) mmol/L Calcium 9.5 (8.4-10.2) mg/dL Total Bilirubin 0.5 (0.2-1.3) mg/dL AST 28 (17-59) U/L ALT 25 (4-49) U/L Alkaline Phosphatase 100 (38-126) U/L Troponin I (0.000-0.034) ng/mL Total Protein 7.6 (6.3-8.2) g/dL Albumin 4.2 (3.5-5.0) g/dL 09/06/24 09/06/24 Range/Units 06:08 07:54 WBC (3.8-10.6) k/uL RBC (4.30-5.90) m/uL Hgb (13.0-17.5) gm/dL Hct (39.0-53.0) % MCV (80.0-100.0) fL MCH (25.0-35.0) pg MCHC (31.0-37.0) g/dL RDW (11.5-15.5) % Plt Count (150-450) k/uL MPV Neutrophils % % Lymphocytes % % Monocytes % % Eosinophils % % Basophils % % Neutrophils # (1.3-7.7) k/uL Lymphocytes # (1.0-4.8) k/uL Monocytes # (0-1.0) k/uL Eosinophils # (0-0.7) k/uL Basophils # (0-0.2) k/uL Hypochromasia Anisocytosis Macrocytosis Sodium (137-145) mmol/L Potassium (3.5-5.1) mmol/L Chloride (98-107) mmol/L Carbon Dioxide (22-30) mmol/L Anion Gap mmol/L BUN (9-20) mg/dL Creatinine (0.66-1.25) mg/dL Est GFR (CKD-EPI)AfAm (>60 ml/min/1.73 sqM) Est GFR (CKD-EPI)NonAf (>60 ml/min/1.73 sqM) Glucose (74-99) mg/dL POC Glucose (mg/dL) 147 H (70-110) mg/dL POC Glu Sand Mill Operator ID Brian Irving Plasma Lactic Acid Del (0.7-2.0) mmol/L Calcium (8.4-10.2) mg/dL Total Bilirubin (0.2-1.3) mg/dL AST (17-59) U/L ALT (4-49) U/L Alkaline Phosphatase (38-126) U/L Troponin I 0.022 (0.000-0.034) ng/mL Total Protein (6.3-8.2) g/dL Albumin (3.5-5.0) g/dL Disposition Is patient prescribed a controlled substance at d/c from ED?: No Time of Disposition: 11:01 <Oni Joseph - Last Filed: 09/06/24 11:00> <Santhosh Rivera - Last Filed: 09/06/24 18:32> Clinical Impression: Vertigo Disposition: HOME SELF-CARE Condition: Good Instructions (If sedation given, give patient instructions): Vertigo (ED) Prescriptions: Meclizine [Antivert] 25 mg PO TID #20 tab Referrals: Rick Luke MD [Primary Care Provider] - 1-2 days
[2024-09-06] MEDS: MECLIZINE 12.5 MG TAB PO STA (06:14)
[2024-09-06 06:15] LABS: Anisocytosis Slight; Basophils % (A) 0 %; Eosinophils # (A) 0.2 k/uL (0-0.7); Eosinophils % (A) 3 %; HCT 37.5 % (39.0-53.0); HGB 11.6 gm/dL (13.0-17.5); Hypochromasia Slight; Lymphocytes # (A) 1.9 k/uL (1.0-4.8); Lymphocytes % (A) 25 %; MCH 30.3 pg (25.0-35.0); MCHC 30.9 g/dL (31.0-37.0); MCV 98.1 fL (80.0-100.0); Macrocytosis Slight; Mean Platelet Volume 7.3; Monocytes # (A) 0.5 k/uL (0-1.0); Monocytes % (A) 6 %; Neutrophils # (A) 4.9 k/uL (1.3-7.7); Neutrophils % (A) 64 %; Platelet Count 289 k/uL (150-450); RBC 3.83 m/uL (4.30-5.90); RDW 16.3 % (11.5-15.5); WBC 7.6 k/uL (3.8-10.6)
[2024-09-06 06:27] LABS: ALT 25 U/L (4-49); African American GFR (CKD) 54 (>60 ml/min/1.73 sqM); Albumin 4.2 g/dL (3.5-5.0); Anion Gap 8 mmol/L; Blood Urea Nitrogen 21 mg/dL (9-20); Calcium 9.5 mg/dL (8.4-10.2); Carbon Dioxide 28 mmol/L (22-30); Chloride 103 mmol/L (98-107); Glucose 256 mg/dL (74-99); Non-African American GFR(CKD) 46 (>60 ml/min/1.73 sqM); Sodium 139 mmol/L (137-145); Total Bilirubin 0.5 mg/dL (0.2-1.3); Total Protein 7.6 g/dL (6.3-8.2)
[2024-09-06 06:31] LABS: AST 28 U/L (17-59); Alkaline Phosphatase 100 U/L (38-126); Potassium 3.8 mmol/L (3.5-5.1)
[2024-09-06] MEDS: INSULIN REGULAR 100 UNIT/ML VIAL (IV) SQ STA (07:55)
[2024-09-06] MEDS: SODIUM CHLORIDE 0.9% 500 ML 500 ML IV STA (07:56)
[2024-09-06 08:05] LABS: Glucose,Whole Blood 147 mg/dL (70-110)
--- NOTE | 2024-09-06 08:12 | XR ---
EXAMINATION TYPE: XR chest 1V portable DATE OF EXAM: 09/06/2024 COMPARISON: 07/07/2024 HISTORY: Dizziness TECHNIQUE: Single frontal view of the chest is obtained. FINDINGS: There is no focal air space opacity, pleural effusion, or pneumothorax seen. The cardiac silhouette size is within normal limits. The osseous structures are intact. IMPRESSION: No acute process. [facility], Workstation: [facility], 09/06/2024 8:09 AM
--- NOTE | 2024-09-06 08:27 | CT ---
EXAMINATION TYPE: CT angio head neck DATE OF EXAM: 09/06/2024 COMPARISON: None CLINICAL INDICATION: Male, 73 years old with history of vertigo; PHH, Vertigo TECHNIQUE: CTA scan of the head and neck is performed without and with IV Contrast, patient injected with 65 ml mL of Isovue 370, axial images are obtained, coronal and sagittal reformatted images are reviewed. 3D reconstructed images are created on an independent workstation and reviewed. CT DLP: 1591.[address] CTDI: mGy Automated exposure control for dose reduction was used. NASCET criteria was used in interpretation of this exam? FINDINGS: FINDINGS: The brachiocephalic origins are widely patent and no significant stenosis. There is mild focal eccentric calcified plaque left carotid bifurcation but there is no significant c ommon or internal carotid artery stenosis within the neck. There is no stenosis of the vertebral arteries. Intracranially, there is no stenosis, segmental occlusion, sizable aneurysm sac or vascular malformat ion. There is mild scattered calcification within the carotid siphons but no significant stenosis. IMPRESSION:. No evidence of occlusive disease, sizable aneurysm sac or vascular malformation. NASCET criteria was used in interpretation of this exam? [facility], , 09/06/2024 8:25 AM
[2024-09-06 08:33] VITALS: RESP 18
[2024-09-06 12:27] VITALS: BP 157/89; PULSE 59; TEMP 98
== END 2024-09-06 12:27 | disposition home or self-care (01) ==
LOC: EC 04:25
DX: R42 Dizziness and giddiness (principal); I12.9 Hypertensive chronic kidney disease with stage 1 through stage 4 chronic kidney disease, or unspecified chronic kidney disease; E11.22 Type 2 diabetes mellitus with diabetic chronic kidney disease; N18.30 Chronic kidney disease, stage 3 unspecified; Z87.891 Personal history of nicotine dependence
CPT/HCPCS: 36415; 93005; 80053; 83605; 84484; 85025; 71045; 70496; 70498; 99284; Q9967

== ENCOUNTER 2024-10-16 14:52 | Inpatient (IN) | payer MEDICARE, OTHER ==
--- NOTE | 2024-10-16 15:31 | ED ---
Fall HPI - General Source: patient, family, EMS, RN notes reviewed Mode of arrival: EMS Limitations: no limitations <Angelita Bailey - Last Filed: 10/16/24 15:30> - History of Present Illness MD Complaint: other <Yris Andre - Last Filed: 10/17/24 19:14> - General Chief Complaint: Fall Stated Complaint: weakness Time Seen by Provider: 10/16/24 15:30 - History of Present Illness Initial Comments: Please note: 73-year-old man presented to ER for evaluation of weakness. states last night patient fell out of bed. No head injury. States he also threw up and was having a fever at home. She states he appears weak. (Angelita Bailey) Patient is a 73-year-old gentleman presenting today for generalized weakness and a fall out of bed. Patient's states that this morning patient had episode of nonbloody nonbilious emesis. Then he was trying to reach for his remote next his nightstand rolled out of bed. Patient's heard a thump and went to the bathroom to the bedroom to find the patient caught between his bed and nightstand. Patient does not think he had his neck head or neck but is not sure. He currently denies any head or neck pain. Patient's could not get him up and patient was too weak to stand. Is stable typically able to get around on his own. Currently has baseline mental status. Does have mild dementia. Patient's states that his abdomen is look more distended than usual. Last bowel movement was 2 days ago. Patient has had a prior PEG tube. Was seen by his PCP yesterday and afebrile there. The patient currently denies any chest pain or shortness of breath. Does endorse a nonproductive cough. Patient Dors is left flank pain. (Yris Andre) - Related Data Home Medications Medication Instructions Recorded Confirmed Atorvastatin [Lipitor] 80 mg PO HS 05/26/17 10/17/24 Aspirin EC [Ecotrin Low Dose] 81 mg PO DAILY 02/12/18 10/17/24 calcitrioL 0.25 mcg PO DIRECTED 10/07/18 10/17/24 Clopidogrel [Plavix] 75 mg PO DAILY 12/08/19 10/17/24 amLODIPine [Norvasc] 5 mg PO DAILY 05/24/22 10/17/24 Melatonin [Melatonin Tr] 10 mg PO HS 07/24/22 10/17/24 Cetirizine HCl [Zyrtec] 10 mg PO HS 10/17/24 10/17/24 Cholecalciferol (Vitamin D3) 50 mcg PO DAILY 10/17/24 10/17/24 [Vitamin D3 (50 Mcg = 2000 Iu)] Clindamycin Topical Soln 1 applic TOPICAL BID 10/17/24 10/17/24 [Cleocin-T Topical Soln] Ketoconazole 2% Shampoo [Nizoral] 1 applic TOPICAL DAILY 10/17/24 10/17/24 Memantine [Namenda] 5 mg PO BID 10/17/24 10/17/24 Pantoprazole [Protonix] 40 mg PO BID 10/17/24 10/17/24 Sertraline [Zoloft] 100 mg PO HS 10/17/24 10/17/24 Previous Rx's Medication Instructions Recorded Magnesium Oxide [Mag-Ox] 400 mg PO DAILY #14 tablet 07/08/24 Meclizine [Antivert] 25 mg PO TID #20 tab 09/06/24 Allergies Allergy/AdvReac Type Severity Reaction Status Date / Time No Known Allergies Allergy Verified 10/17/24 14:28 Review of Systems ROS Other: All systems not noted in ROS Statement are negative. <Angelita Bailey - Last Filed: 10/16/24 15:30> ROS Other: All systems not noted in ROS Statement are negative. <Yris Andre - Last Filed: 10/17/24 19:14> ROS Statement: Those systems with pertinent positive or pertinent negative responses have been documented in the HPI. 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 Loop recorder removed 12/30/21.dementia History of Any Multi-Drug Resistant Organisms: None Reported Past Surgical History: Hernia Repair, Joint Replacement Additional Past Surgical History / Comment(s): 06/01/17 intracranial angioplasty- (pt stated "he has stents') HFH, EGD with peg tube insertion since removed, R inguinal hernia repair, R total knee arthroplasty, colonoscopies with last one in 2019-normal., soniya eye cat sx, loop recorder since removed. Past Anesthesia/Blood Transfusion Reactions: No Reported Reaction Past Psychological History: No Psychological Hx Reported Smoking Status: Former smoker Past Alcohol Use History: None Reported Past Drug Use History: None Reported - Past Family History Mother Family Medical History: CVA/TIA, Diabetes Mellitus, Hyperlipidemia, Hypertension Father Family Medical History: CVA/TIA, Hypertension <Angelita Bailey - Last Filed: 10/16/24 15:30> General Exam Limitations: no limitations <Angelita Bailey - Last Filed: 10/16/24 15:30> <Yris Andre - Last Filed: 10/17/24 19:14> - General Exam Comments Initial Comments: Visual Physical Exam Vital signs reviewed General: No acute distress weak appearing Head: Normocephalic, atraumatic Eyes: PERRLA, EOMI ENT: Airway patent Chest: Nonlabored breathing Skin: No visual rash, normal skin tone Neuro: Alert and oriented 3 Musculoskeletal: No gross abnormalities (Angelita Bailey) PE: CONSTITUTIONAL: [Chronically ill-appearing, no acute distress, nontoxic] SKIN: [warm, dry, no jaundice, hives or petechiae] EYES:[ pupils are equally round, extraocular movements intact without nystagmus, clear conjunctiva, non-icteric sclera] HENT: [normocephalic, atraumatic, moist mucus membranes, oropharynx clear without exudates] NECK: , [Full range of motion, normal appearance, no midline spinal tenderness to palpation] PULMONARY: [clear to auscultation without wheezes, rhonchi, or rales, normal excursion, no accessory muscle use and no stridor] CARDIOVASCULAR:[Tachycardia, regular rate and rhythm, normal S1 and S2. No appre ciated murmurs, rubs or gallops. Strong radial pulses with intact distal perfusion. No lower extremity edema] GASTROINTESTINAL: [Firm, distended, reducible hernia,, active bowel sounds throughout, no rebound or guarding no hepatosplenomegaly] GENITOURINARY: MUSCULOSKELETAL: The ankles are slightly swollen bilaterally with tenderness palpation of the medial aspect of the left ankle without deformity, patient able to move his feet, ankles and lower extremities through full range of motion without pain or difficulty extremities have no gross deformity, no edema, redness, or swelling. No calf swelling ] NEUROLOGIC: [_a/o x 3, GCS 15, normal mentation and speech. Moves all extremities x 4 without motor or sensory deficit] PSYCHIATRIC:[ _normal mood and affect, thought process is clear and linear] (Yris Andre) Course Vital Signs 10/16/24 10/16/24 10/16/24 15:15 21:35 23:30 Temperature 100.6 F H 99.5 F 98.6 F Pulse Rate 97 84 89 Respiratory 20 18 16 Rate Blood Pressure 146/75 141/91 155/86 O2 Sat by Pulse 97 94 L 94 L Oximetry 10/17/24 10/17/24 10/17/24 01:36 05:00 08:26 Temperature 100.2 F H Pulse Rate 76 79 87 Respiratory 18 18 17 Rate Blood Pressure 162/90 154/95 160/90 O2 Sat by Pulse 95 91 L Oximetry 10/17/24 10/17/24 10/17/24 09:50 11:31 15:07 Temperature 99.4 F 99.0 F 98.6 F Pulse Rate 92 76 68 Respiratory 17 19 19 Rate Blood Pressure 166/99 162/99 166/92 O2 Sat by Pulse 95 96 92 L Oximetry 10/17/24 17:59 Temperature 98.8 F Pulse Rate 62 Respiratory 18 Rate Blood Pressure 158/86 O2 Sat by Pulse 93 L Oximetry Medical Decision Making <Angelita Bailey - Last Filed: 10/16/24 15:30> - Lab Data Result diagrams: 10/17/24 14:09 10/17/24 06:26 <Yris Andre - Last Filed: 10/17/24 19:14> - Medical Decision Making I performed the quick note portion of this chart. Electronically signed by Angelita Bailey PA-C (Angelita Bailey) Was pt. sent in by a medical professional or institution ([facility], [facility], urgent care, hospital, or retirement...) When possible be specific @ -No Did you speak to anyone other than the patient for history (EMS, parent, family, police, friend...)? What history was obtained from this source @Patient's assisted in providing history Did you review nursing and triage notes (agree or disagree)? Why? @ -I reviewed and agree with nursing and triage notes Were old charts reviewed (outside hosp., previous admission, EMS record, old EKG, old radiological studies, urgent care reports/EKG's, retirement records)? Report findings Medical records reviewed Differential Diagnosis (chest pain, altered mental status, abdominal pain women, abdominal pain men, vaginal bleeding, weakness, fever, dyspnea, syncope, headache, dizziness, GI bleed, back pain, seizure, CVA, palpatations, mental health, musculoskeletal)? @Differential Weakness: Hypoglycemia, shock, sepsis, hyponatremia, anemia, infection, VA, ETOH, adverse medicine reaction, overdose, stroke, this is not meant to be an all-inclusive list. EKG interpreted by me (3pts min.). @ -As above X-rays interpreted by me (1pt min.). @X-ray left ankle and tib-fib evaluated by myself, I see no evidence of fracture or dislocation, chest XR shows no pleural effusions or cardiomegaly CT interpreted by me (1pt min.). @ -CT brain shows no hemorrhage or skull fracture, CT abdomen/pelvis shows no evidence of obstruction, free air,or hydronephrosis U/S interpreted by me (1pt. min.). @ -None done What testing was considered but not performed or refused? (CT, X-rays, U/S, labs)? Why? @ -None What meds were considered but not given or refused? Why? @ -None Did you discuss the management of the patient with other professionals (professionals i.e. [facility], [facility], lab, RT, psych nurse, elementary school social worker, glass selector, teacher, special service officer, case assembler)? Give summary @ -No Was smoking cessation discussed for >3mins.? @ -No Was critical care preformed (if so, how long)? @no Were there social determinants of health that impacted care today? How? (Homelessness, low income, unemployed, alcoholism, drug addiction, transportation, low edu. Level, literacy, decrease access to med. care, penitentiary, rehab)? @ -No Was there de-escalation of care discussed even if they declined (Discuss DNR or withdrawal of care, Hospice)? @ -No What co-morbidities impacted this encounter? (DM, HTN, Smoking, COPD, CAD, Cancer, CVA, ARF, Chemo, Hep., AIDS, mental health diagnosis, sleep apnea, morbid obesity)? @Dementia, hypertension, hyperlipidemia, prior CVA Was patient admitted / discharged? Hospital course, mention meds given and route, prescriptions, significant lab abnormalities, going to OR and other pertinent info. @Admission -patient seen and evaluated in hallway bed given shortage of beds here at the ER. On my assessment patient is chronically ill-appearing but nonto xic in no acute distress. Accompanied by his . Physical exam as above. Patient unsure if he hit his head or neck though his head is atraumatic, given history dementia and fall obtain CT brain C-spine. Additionally abdomen is distended and firm with active bowel sounds. CT abdomen pelvis ordered. Rocephin was initially ordered to ensure timely administration of antibiotics however patient be also given Zosyn in addition to this. Septic workup initiated. Patient given Tylenol prior to my assessment for fever 100.6 degrees. I reviewed patient's labs, significant for mild leukocytosis white blood cell count 12.7, lactic acidosis with lactic 2.5 which improved with IV fluids to 2, creatinine 1.4 which appears baseline for the patient, urine without signs of infection urine with negative nitrites negative leukocyte esterase and rare bacteria, negative viral panel, CT abdomen pelvis does not show any acute intraabdominal infectious or surgical process, notes 3.3 cm AAA. Also notes some bronchial wall thickening in LLL- could be early PNA. Updated patient and , plan for admission. Pt and agreeable with POC. Patient states that he feels well and currently has no complaints, currently at baseline mental status. Plan for admission for fever with concern for sepsis and generalize weakness. Discussed with Karen VANEGAS, who kindly accepts patient for admission. Undiagnosed new problem with uncertain prognosis? @ -No Drug Therapy requiring intensive monitoring for toxicity (Heparin, Nitro, Insulin, Cardizem)? @ -No Were any procedures done? @ -No Diagnosis/symptom? @ Fever, generalized weakness, abdominal aortic aneurysm Acute, or Chronic, or Acute on Chronic? @acute Uncomplicated (without systemic symptoms) or Complicated (systemic symptoms)? @complicated Side effects of treatment? @ -No Exacerbation, Progression, or Severe Exacerbation? @ -No Poses a threat to life or bodily function? How? (Chest pain, USA, VA, pneumonia, PE, COPD, DKA, ARF, appy, cholecystitis, CVA, Diverticulitis, Homicidal, Suicidal, threat to staff... and all critical care pts) @Yes if 2/2 sepsis could lead to septic shock and if left untreated (Yris Andre) - Lab Data Lab Results 10/16/24 10/16/24 10/16/24 Range/Units 15:19 15:19 15:19 WBC 12.7 H (3.8-10.6) k/uL RBC 3.79 L (4.30-5.90) m/uL Hgb 11.7 L (13.0-17.5) gm/dL Hct 36.4 L (39.0-53.0) % MCV 96.2 (80.0-100.0) fL MCH 30.9 (25.0-35.0) pg MCHC 32.2 (31.0-37.0) g/dL RDW 16.6 H (11.5-15.5) % Plt Count 270 (150-450) k/uL MPV 7.3 Immature Gran % (Auto) % Absolute Nucleated RBC % Neutrophils % 85 % Lymphocytes % 8 % Monocytes % 5 % Eosinophils % 1 % Basophils % 0 % Immature Gran # (0.00-0.04) X 10*3/uL Neutrophils # 10.8 H (1.3-7.7) k/uL Lymphocytes # 1.0 (1.0-4.8) k/uL Monocytes # 0.6 (0-1.0) k/uL Eosinophils # 0.1 (0-0.7) k/uL Basophils # 0.0 (0-0.2) k/uL NRBC/100 WBC Diff (0.00-0.01) X 10*3/uL Anisocytosis Slight Sodium 140 (137-145) mmol/L Potassium 4.4 (3.5-5.1) mmol/L Chloride 103 (98-107) mmol/L Carbon Dioxide 29 (22-30) mmol/L Anion Gap 8 mmol/L BUN 30 H (9-20) mg/dL Creatinine 1.48 H (0.66-1.25) mg/dL Est GFR (CKD-EPI) (>=60) Est GFR (CKD-EPI)AfAm 53 (>60 ml/min/1.73 sqM) Est GFR (CKD-EPI)NonAf 46 (>60 ml/min/1.73 sqM) BUN/Creatinine Ratio (12.00-20.00) Ratio Glucose 129 H (74-99) mg/dL Lactic Ac Sepsis Rflx Plasma Lactic Acid Del 2.5 H* (0.7-2.0) mmol/L Calcium 10.1 (8.4-10.2) mg/dL Total Bilirubin 0.9 (0.2-1.3) mg/dL AST 32 (17-59) U/L ALT 26 (4-49) U/L Alkaline Phosphatase 114 (38-126) U/L Creatine Kinase (35-257) U/L Total Protein 7.8 (6.3-8.2) g/dL Albumin 4.6 (3.5-5.0) g/dL Amylase 100 (30-110) U/L Lipase 154 (23-300) U/L Procalcitonin (0.02-0.50) ng/mL Urine Color Urine Appearance (Clear) Urine pH (5.0-8.0) Ur Specific [place] (1.001-1.035) Urine Protein (Negative) Urine Glucose (UA) (Negative) Urine Ketones (Negative) Urine Blood (Negative) Urine Nitrite (Negative) Urine Bilirubin (Negative) Urine Urobilinogen (<2.0) mg/dL Ur Leukocyte Esterase (Negative) Urine RBC (0-5) /hpf Urine WBC (0-5) /hpf Ur Squamous Epith Cells (0-4) /hpf Urine Bacteria (None) /hpf Urine Mucus (None) /hpf Influenza Type A (PCR) (Not Detectd) Influenza Type B (PCR) (Not Detectd) RSV (PCR) (Not Detectd) SARS-CoV-2 (PCR) (Not Detectd) 10/16/24 10/16/24 10/16/24 Range/Units 15:23 16:01 16:21 WBC (3.8-10.6) k/uL RBC (4.30-5.90) m/uL Hgb (13.0-17.5) gm/dL Hct (39.0-53.0) % MCV (80.0-100.0) fL MCH (25.0-35.0) pg MCHC (31.0-37.0) g/dL RDW (11.5-15.5) % Plt Count (150-450) k/uL MPV Immature Gran % (Auto) % Absolute Nucleated RBC % Neutrophils % % Lymphocytes % % Monocytes % % Eosinophils % % Basophils % % Immature Gran # (0.00-0.04) X 10*3/uL Neutrophils # (1.3-7.7) k/uL Lymphocytes # (1.0-4.8) k/uL Monocytes # (0-1.0) k/uL Eosinophils # (0-0.7) k/uL Basophils # (0-0.2) k/uL NRBC/100 WBC Diff (0.00-0.01) X 10*3/uL Anisocytosis Sodium (137-145) mmol/L Potassium (3.5-5.1) mmol/L Chloride (98-107) mmol/L Carbon Dioxide (22-30) mmol/L Anion Gap mmol/L BUN (9-20) mg/dL Creatinine (0.66-1.25) mg/dL Est GFR (CKD-EPI) (>=60) Est GFR (CKD-EPI)AfAm (>60 ml/min/1.73 sqM) Est GFR (CKD-EPI)NonAf (>60 ml/min/1.73 sqM) BUN/Creatinine Ratio (12.00-20.00) Ratio Glucose (74-99) mg/dL Lactic Ac Sepsis Rflx Y Plasma Lactic Acid Del (0.7-2.0) mmol/L Calcium (8.4-10.2) mg/dL Total Bilirubin (0.2-1.3) mg/dL AST (17-59) U/L ALT (4-49) U/L Alkaline Phosphatase (38-126) U/L Creatine Kinase (35-257) U/L Total Protein (6.3-8.2) g/dL Albumin (3.5-5.0) g/dL Amylase (30-110) U/L Lipase (23-300) U/L Procalcitonin (0.02-0.50) ng/mL Urine Color Light Yellow Urine Appearance Clear (Clear) Urine pH 8.5 H (5.0-8.0) Ur Specific [place] 1.023 (1.001-1.035) Urine Protein 1+ H (Negative) Urine Glucose (UA) Negative (Negative) Urine Ketones Negative (Negative) Urine Blood Negative (Negative) Urine Nitrite Negative (Negative) Urine Bilirubin Negative (Negative) Urine Urobilinogen 2.0 (<2.0) mg/dL Ur Leukocyte Esterase Negative (Negative) Urine RBC 4 (0-5) /hpf Urine WBC 5 (0-5) /hpf Ur Squamous Epith Cells 1 (0-4) /hpf Urine Bacteria Rare H (None) /hpf Urine Mucus Rare H (None) /hpf Influenza Type A (PCR) Not Detected (Not Detectd) Influenza Type B (PCR) Not Detected (Not Detectd) RSV (PCR) Not Detected (Not Detectd) SARS-CoV-2 (PCR) Not Detected (Not Detectd) 10/16/24 10/17/24 10/17/24 Range/Units 18:17 06:26 06:26 WBC 12.80 H (3.8-10.6) k/uL RBC 3.36 L (4.30-5.90) m/uL Hgb 9.9 L (13.0-17.5) gm/dL Hct 32.9 L (39.0-53.0) % MCV 97.9 H (80.0-100.0) fL MCH 29.5 (25.0-35.0) pg MCHC 30.1 L (31.0-37.0) g/dL RDW 16.4 H (11.5-15.5) % Plt Count 241 (150-450) k/uL MPV 9.5 Immature Gran % (Auto) 0.50 % Absolute Nucleated RBC 0 % Neutrophils % 74.0 % Lymphocytes % 14.7 % Monocytes % 9.4 % Eosinophils % 1.0 % Basophils % 0.4 % Immature Gran # 0.07 H (0.00-0.04) X 10*3/uL Neutrophils # 9.47 H (1.3-7.7) k/uL Lymphocytes # 1.88 (1.0-4.8) k/uL Monocytes # 1.20 H (0-1.0) k/uL Eosinophils # 0.13 (0-0.7) k/uL Basophils # 0.05 (0-0.2) k/uL NRBC/100 WBC Diff 0 (0.00-0.01) X 10*3/uL Anisocytosis Sodium 144 (137-145) mmol/L Potassium 3.6 (3.5-5.1) mmol/L Chloride 106 (98-107) mmol/L Carbon Dioxide 27.1 (22-30) mmol/L Anion Gap 10.90 mmol/L BUN 24.0 (9-20) mg/dL Creatinine 1.5 (0.66-1.25) mg/dL Est GFR (CKD-EPI) 49 L (>=60) Est GFR (CKD-EPI)AfAm (>60 ml/min/1.73 sqM) Est GFR (CKD-EPI)NonAf (>60 ml/min/1.73 sqM) BUN/Creatinine Ratio 16.00 (12.00-20.00) Ratio Glucose 122 H (74-99) mg/dL Lactic Ac Sepsis Rflx Plasma Lactic Acid Del 2.0 (0.7-2.0) mmol/L Calcium 9.3 (8.4-10.2) mg/dL Total Bilirubin (0.2-1.3) mg/dL AST (17-59) U/L ALT (4-49) U/L Alkaline Phosphatase (38-126) U/L Creatine Kinase 198 (35-257) U/L Total Protein (6.3-8.2) g/dL Albumin (3.5-5.0) g/dL Amylase (30-110) U/L Lipase (23-300) U/L Procalcitonin (0.02-0.50) ng/mL Urine Color Urine Appearance (Clear) Urine pH (5.0-8.0) Ur Specific [place] (1.001-1.035) Urine Protein (Negative) Urine Glucose (UA) (Negative) Urine Ketones (Negative) Urine Blood (Negative) Urine Nitrite (Negative) Urine Bilirubin (Negative) Urine Urobilinogen (<2.0) mg/dL Ur Leukocyte Esterase (Negative) Urine RBC (0-5) /hpf Urine WBC (0-5) /hpf Ur Squamous Epith Cells (0-4) /hpf Urine Bacteria (None) /hpf Urine Mucus (None) /hpf Influenza Type A (PCR) (Not Detectd) Influenza Type B (PCR) (Not Detectd) RSV (PCR) (Not Detectd) SARS-CoV-2 (PCR) (Not Detectd) 10/17/24 Range/Units 06:26 WBC (3.8-10.6) k/uL RBC (4.30-5.90) m/uL Hgb (13.0-17.5) gm/dL Hct (39.0-53.0) % MCV (80.0-100.0) fL MCH (25.0-35.0) pg MCHC (31.0-37.0) g/dL RDW (11.5-15.5) % Plt Count (150-450) k/uL MPV Immature Gran % (Auto) % Absolute Nucleated RBC % Neutrophils % % Lymphocytes % % Monocytes % % Eosinophils % % Basophils % % Immature Gran # (0.00-0.04) X 10*3/uL Neutrophils # (1.3-7.7) k/uL Lymphocytes # (1.0-4.8) k/uL Monocytes # (0-1.0) k/uL Eosinophils # (0-0.7) k/uL Basophils # (0-0.2) k/uL NRBC/100 WBC Diff (0.00-0.01) X 10*3/uL Anisocytosis Sodium (137-145) mmol/L Potassium (3.5-5.1) mmol/L Chloride (98-107) mmol/L Carbon Dioxide (22-30) mmol/L Anion Gap mmol/L BUN (9-20) mg/dL Creatinine (0.66-1.25) mg/dL Est GFR (CKD-EPI) (>=60) Est GFR (CKD-EPI)AfAm (>60 ml/min/1.73 sqM) Est GFR (CKD-EPI)NonAf (>60 ml/min/1.73 sqM) BUN/Creatinine Ratio (12.00-20.00) Ratio Glucose (74-99) mg/dL Lactic Ac Sepsis Rflx Plasma Lactic Acid Del (0.7-2.0) mmol/L Calcium (8.4-10.2) mg/dL Total Bilirubin (0.2-1.3) mg/dL AST (17-59) U/L ALT (4-49) U/L Alkaline Phosphatase (38-126) U/L Creatine Kinase (35-257) U/L Total Protein (6.3-8.2) g/dL Albumin (3.5-5.0) g/dL Amylase (30-110) U/L Lipase (23-300) U/L Procalcitonin 0.36 (0.02-0.50) ng/mL Urine Color Urine Appearance (Clear) Urine pH (5.0-8.0) Ur Specific [place] (1.001-1.035) Urine Protein (Negative) Urine Glucose (UA) (Negative) Urine Ketones (Negative) Urine Blood (Negative) Urine Nitrite (Negative) Urine Bilirubin (Negative) Urine Urobilinogen (<2.0) mg/dL Ur Leukocyte Esterase (Negative) Urine RBC (0-5) /hpf Urine WBC (0-5) /hpf Ur Squamous Epith Cells (0-4) /hpf Urine Bacteria (None) /hpf Urine Mucus (None) /hpf Influenza Type A (PCR) (Not Detectd) Influenza Type B (PCR) (Not Detectd) RSV (PCR) (Not Detectd) SARS-CoV-2 (PCR) (Not Detectd) Disposition <Angelita Bailey - Last Filed: 10/16/24 15:30> <Yris Andre - Last Filed: 10/17/24 19:14> Clinical Impression: Sepsis, Generalized weakness, Abdominal aortic aneurysm (AAA) 3.0 cm to 5.5 cm in diameter in male Disposition: ADMITTED IP TO THIS HOSP Condition: Stable
[2024-10-16 15:32] LABS: Anisocytosis Slight; Basophils % (A) 0 %; Eosinophils # (A) 0.1 k/uL (0-0.7); Eosinophils % (A) 1 %; HCT 36.4 % (39.0-53.0); HGB 11.7 gm/dL (13.0-17.5); Lymphocytes % (A) 8 %; MCH 30.9 pg (25.0-35.0); MCHC 32.2 g/dL (31.0-37.0); MCV 96.2 fL (80.0-100.0); Mean Platelet Volume 7.3; Monocytes # (A) 0.6 k/uL (0-1.0); Monocytes % (A) 5 %; Neutrophils # (A) 10.8 k/uL (1.3-7.7); Neutrophils % (A) 85 %; Platelet Count 270 k/uL (150-450); RBC 3.79 m/uL (4.30-5.90); RDW 16.6 % (11.5-15.5); WBC 12.7 k/uL (3.8-10.6)
[2024-10-16 15:49] LABS: ALT 26 U/L (4-49); African American GFR (CKD) 53 (>60 ml/min/1.73 sqM); Albumin 4.6 g/dL (3.5-5.0); Amylase 100 U/L (30-110); Anion Gap 8 mmol/L; Blood Urea Nitrogen 30 mg/dL (9-20); Calcium 10.1 mg/dL (8.4-10.2); Carbon Dioxide 29 mmol/L (22-30); Chloride 103 mmol/L (98-107); Glucose 129 mg/dL (74-99); Lipase 154 U/L (23-300); Non-African American GFR(CKD) 46 (>60 ml/min/1.73 sqM); Sodium 140 mmol/L (137-145)
[2024-10-16 15:59] LABS: Potassium 4.4 mmol/L (3.5-5.1)
[2024-10-16 16:00] LABS: AST 32 U/L (17-59); Alkaline Phosphatase 114 U/L (38-126); Total Bilirubin 0.9 mg/dL (0.2-1.3); Total Protein 7.8 g/dL (6.3-8.2)
--- NOTE | 2024-10-16 16:23 | XR ---
EXAMINATION TYPE: XR chest 2V DATE OF EXAM: 10/16/2024 4:09 PM COMPARISON: 09/06/2024. CLINICAL INDICATION: Male, 73 years old with history of fever; [facility] TECHNIQUE: XR chest 2V Frontal and lateral views of the chest. FINDINGS: Lungs/Pleura: There is no evidence of pleural effusion, focal consolidation, or pneumothorax. Pulmonary vascularity: Unremarkable. Heart/mediastinum: Cardiomediastinal silhouette is unremarkable. Prominent vessels in the medial bord er of the upper right mediastinum Musculoskeletal: No acute osseous pathology. IMPRESSION: No acute cardiopulmonary disease/process. [facility], Workstation: [facility], 10/16/2024 4:21 PM
[2024-10-16] MEDS: ACETAMINOPHEN TAB 325 MG TAB PO STA (16:24)
[2024-10-16] MEDS: SODIUM CHLORIDE 0.9% 500 ML 500 ML IV ONE (16:25)
[2024-10-16 16:46] LABS: Appearance,Urine Clear (Clear); Bacteria,Urine Rare /hpf; Bilirubin,Urine Negative (Negative); Blood,Urine Negative (Negative); Color,Urine Light Yellow; Glucose,Urine (UA) Negative (Negative); Ketones,Urine Negative (Negative); Leukocyte Esterase,Urine Negative (Negative); Mucus,Urine Rare /hpf; Nitrite,Urine Negative (Negative); PH, Urine 8.5 (5.0-8.0); Protein,Urine 1+ (Negative); RBC,Urine 4 /hpf (0-5); Specific Gravity,Urine 1.023 (1.001-1.035); Squamous Epithelial Cell,Urine 1 /hpf (0-4); WBC,Urine 5 /hpf (0-5)
--- NOTE | 2024-10-16 17:40 | XR ---
EXAMINATION TYPE: XR tibia fibula LT DATE OF EXAM: 10/16/2024 5:35 PM COMPARISON: None. CLINICAL INDICATION: Male, 73 years old with history of fall, left ankle pain, pain TECHNIQUE: XR tibia fibula LT views were obtained FINDINGS: There is no acute fracture/dislocation evident. The joint spaces appear within normal limits. The o verlying soft tissue appears unremarkable. IMPRESSION: No acute fracture or dislocation seen. [facility], , 10/16/2024 5:38 PM
--- NOTE | 2024-10-16 17:40 | XR ---
EXAMINATION TYPE: XR ankle complete LT DATE OF EXAM: 10/16/2024 5:35 PM COMPARISON: None. CLINICAL INDICATION: Male, 73 years old with history of left medial ankle pain, fall, TECHNIQUE: XR ankle complete LT, views submitted for evaluation. FINDINGS: There is no evidence for fracture or dislocation. The joint spaces appear within normal limits. The overlying soft tissue appears unremarkable. Ankle mortise is intact. Moderate soft tissue swelling no oli about the ankle. IMPRESSION: 1. No evidence for acute fracture. [facility], , 10/16/2024 5:38 PM
--- NOTE | 2024-10-16 18:30 | CT ---
EXAMINATION TYPE: CT brain cspine wo con CT DLP: 1416.3 mGycm, Automated exposure control for dose reduction was used. DATE OF EXAM: 10/16/2024 6:12 PM COMPARISON: CTA head and neck 09/16/2024. CLINICAL INDICATION:Male, 73 years old with history of fall, >65, on plavix; TECHNIQUE: Brain: Multiple axial CT images of the brain were obtained without IV contrast. Cspine: Axial CT images from the skull base to the inferior aspect of T2 we obtained without intraven ous contrast. Coronal and sagittal reformatted images were also reviewed. . FINDINGS: Brain: Extra-axial spaces: No abnormal extra-axial fluid collections. Ventricular system: Dilatation in proportion to cerebral atrophy. Cerebral parenchyma: Cerebral atrophy. No acute intraparenchymal hemorrhage or mass effect. The lazo -white junction is well differentiated. Scattered hypoattenuating areas are seen within the white mat ter. Cerebellum: Unremarkable. Mass effect: No evidence of midline shift. Intracranial vasculature: Atherosclerotic calcifications of the intracranial vessels. Soft tissues: Normal. Calvarium/osseous structures: No acute depressed skull fracture. Paranasal sinuses and mastoid air cells: Clear. Visualized orbits: Bilateral aphakia Cervical spine: Fracture: No acute fractures. Osseous structures: Multilevel disc degenerative disease. Vertebral alignment: Within normal limits. Spinal canal/Neural Foramina: Multilevel disc osteophyte complexes are seen resulting in mild spinal canal stenosis most pronounced at C5-C6. No evidence for significant neural foraminal stenosis. Neck soft tissues: Prevertebral soft tissues are within normal limits. Incidental note of nuchal liga ment ossification. Other: The airway is patent. The lung apices are clear. IMPRESSION: 1. No acute intracranial process. 2. Nonspecific white matter changes, likely secondary to chronic small vessel ischemic disease. 3. No evidence of acute cervical spine fracture. 4. Moderate multilevel degenerative disc disease. [facility], , 10/16/2024 6:28 PM
[2024-10-16] MEDS: SODIUM CHLORIDE 0.9% 1,000 ML IV ONE (18:45)
[2024-10-16] MEDS: PIPERACILLIN-TAZOBACTAM 3.375 GM in SODIUM CHLORIDE 0.9% 100 ML IVPB STA (18:48)
--- NOTE | 2024-10-16 18:49 | CT ---
INDICATION: Patient age:Male; 73 years old; Reason for study: fall, left flank pain, abd. distention, fever; PHH. COMPARISON: CT head and C-spine the same day. CT abdomen/pelvis 12/14/2022. TECHNIQUE: Standard CT of the abdomen and pelvis following the administration of 100 cc of Isovue 3 00 IV contrast material. Coronal and sagittal reformats were performed. One or more CT dose reduction strategies were utilized during this examination. Total DLP administered was 992.7 mGycm. FINDINGS: LOWER CHEST: Mild bronchial wall thickening involving the left lower lobe is present. Bibasilar atele ctasis/scarring. Coronary artery atherosclerosis partially visualized. ABDOMEN LIVER: Subcentimeter hypodense foci are seen within the liver with punctate calcifications likely rep resenting granulomas. GALLBLADDER AND BILE DUCTS: Unremarkable. PANCREAS: Unremarkable. SPLEEN: Unremarkable. ADRENAL GLANDS: Unremarkable. KIDNEYS AND URETERS: Multiple nonobstructive subcentimeter left renal calculi are seen. Left renal cy st is appreciated right kidney subcentimeter hypodense focus is seen to small to characterize. No rad iodense right renal calculi. No hydronephrosis bilaterally. The ureters have unremarkable appearance PELVIS URINARY BLADDER: Incompletely distended but grossly unremarkable. REPRODUCTIVE: Unremarkable. ABDOMEN & PELVIS STOMACH AND BOWEL: Small hiatal hernia. Small bowel is of normal caliber. There are multiple scattere d colonic diverticula seen without associated fat stranding No evidence of bowel obstruction. PERITONEUM: No evidence of pneumoperitoneum or free fluid. VASCULATURE: Fusiform infrarenal abdominal aortic aneurysmal dilatation is seen for a short segment m easuring up to 3.3 cm. MUSCULOSKELETAL: No acute osseous abnormalities. There is partially visualized left rib remote deform ity. LYMPH NODES: Unremarkable. SOFT TISSUE/ABDOMINAL WALL: Unremarkable IMPRESSION: 1. Nonobstructive left renal calculi. 2. Colonic diverticulosis. 3. Infrarenal abdominal aortic aneurysmal dilatation measuring up to 3.3 cm. [facility], , 10/16/2024 6:47 PM
[2024-10-16] MEDS ORDERED: bisacodyL 5 MG TABLET.DR PO PRN (23:16)
[2024-10-16] MEDS ORDERED: NALOXONE 0.4 MG/ML 1 ML VIAL IV PRN (23:16)
[2024-10-16] MEDS: SERTRALINE 50 MG TAB PO SCH (23:28)
[2024-10-16] MEDS: ATORVASTATIN 80 MG TAB PO SCH (23:28)
[2024-10-16] MEDS: MELATONIN 5 MG TABLET PO SCH (23:28)
[2024-10-17] MEDS: PANTOPRAZOLE 40 MG TABLET PO SCH (08:48)
[2024-10-17] MEDS: ACETAMINOPHEN TAB 325 MG TAB PO PRN (08:48)
[2024-10-17] MEDS: amLODIPine 5 MG TAB PO SCH (08:48)
[2024-10-17] MEDS: CLOPIDOGREL 75 MG TAB PO SCH (08:48)
[2024-10-17] MEDS: ASPIRIN 81 MG PO SCH (08:48)
[2024-10-17] MEDS: HEPARIN SODIUM,PORCINE 5,000 UNIT/ML 1 ML VIAL SQ SCH (08:49)
[2024-10-17] MEDS: SODIUM CHLORIDE 0.9% 1,000 ML IV SCH (08:49)
[2024-10-17] MEDS ORDERED: FAMOTIDINE 20 MG TAB PO SCH (09:00)
[2024-10-17 10:34] LABS: Basophils # (A) 0.05 X 10*3/uL (0.00-0.10); Basophils % (A) 0.4 %; Eosinophils # (A) 0.13 X 10*3/uL (0.04-0.35); HCT 32.9 % (39.6-50.0); HGB 9.9 g/dL (13.0-17.0); Lymphocytes # (A) 1.88 X 10*3/uL (0.90-5.00); Lymphocytes % (A) 14.7 %; MCH 29.5 pg (27.0-32.0); MCHC 30.1 g/dL (32.0-37.0); MCV 97.9 FL (80.0-97.0); Mean Platelet Volume 9.5 FL (9.5-12.2); Monocytes % (A) 9.4 %; NRBC Per 100 WBC 0 X 10*3/uL (0.00-0.01); Neutrophils # (A) 9.47 X 10*3/uL (1.80-7.70); Platelet Count 241 X 10*3/uL (140-440); RBC 3.36 X 10*6/uL (4.40-5.60); RDW 16.4 % (11.5-14.5)
[2024-10-17 10:41] LABS: Calcium 9.3 mg/dL (8.7-10.3); Carbon Dioxide 27.1 mmol/L (21.6-31.8); Chloride 106 mmol/L (96-109); Creatine Kinase 198 U/L (35-257); Glucose 122 mg/dL (70-110); Potassium 3.6 mmol/L (3.5-5.5); Sodium 144 mmol/L (135-145)
[2024-10-17] MEDS: DOCUSATE 100 MG CAP PO SCH (13:41)
[2024-10-17] MEDS: SODIUM FERRIC GLUCONAT-SUCROSE 125 MG in SODIUM CHLORIDE 0.9% 100 ML IVPB ONE (13:57)
[2024-10-17 14:42] LABS: Anisocytosis Slight; Basophils # (A) 0.1 k/uL (0-0.2); Basophils % (A) 0 %; Eosinophils # (A) 0.2 k/uL (0-0.7); Eosinophils % (A) 2 %; HCT 31.9 % (39.0-53.0); HGB 10.1 gm/dL (13.0-17.5); Hypochromasia Slight; Lymphocytes # (A) 1.8 k/uL (1.0-4.8); Lymphocytes % (A) 16 %; MCH 31.4 pg (25.0-35.0); MCHC 31.8 g/dL (31.0-37.0); MCV 98.9 fL (80.0-100.0); Macrocytosis Slight; Mean Platelet Volume 7.3; Monocytes # (A) 0.6 k/uL (0-1.0); Monocytes % (A) 5 %; Neutrophils # (A) 8.4 k/uL (1.3-7.7); Neutrophils % (A) 75 %; Platelet Count 229 k/uL (150-450); RBC 3.23 m/uL (4.30-5.90); RDW 16.7 % (11.5-15.5); WBC 11.2 k/uL (3.8-10.6)
--- NOTE | 2024-10-17 17:18 | P.HPIM ---
History of Present Illness H&P Date: 10/17/24 History of present illness; Patient is 73-year-old man with mild dementia who presents for generalized weakness and fall. Yesterday morning patient fell out of bed after reaching for his remote next to his nightstand. apparently heard a thump and saw patient, between nightstand in bed. He denies any head or neck pain at this time. At baseline patient can ambulate without assistance and is currently at his baseline mentation. Also, yesterday morning he had episode of nonbilious nonbloody emesis. In ER patient did have initial low-grade fever of 100.6. He continues to endorse weakness, and intermittent chills. He has no known melena or bloody stool. Patient reports absence of chest pain, palpitations, diaphoresis, dyspnea, nausea, vomiting, constipation, diarrhea, abdominal pain, myalgia, dizziness, and headache. Labs in ER significant for WBC 12.7 hemoglobin 11.7, BUN 30, creatinine 1.48, glucose 129, lactic acid venous 2.5 => 2.0 UA significant for pH 8.5, protein 1+. Chest x-ray done independently interpreted in the ER showed no acute cardiopulmonary process. CT head and neck done independently interpreted showed no acute intracranial process or fracture. Left ankle x-ray and left tibiofibular interpreted as no evidence for acute fracture with some moderate soft tissue swelling. Abdomen pelvis CT interpreted as no obstruction with nonobstructive left renal calculi, colonic diverticulosis and infrarenal AAA dilation measuring 3.3 cm Spoke with the ER physician, patient admission was accepted by internal medicine service for treatment. REVIEW OF SYSTEMS: Pertinent positives and negatives noted in HPI. PHYSICAL EXAMINATION: Vitals reviewed GENERAL: No acute distress. Well developed, well nourished. HEENT: Pupils are round and equally reacting to light. EOMI. No scleral icterus. Normocephalic, atraumatic. CARDIOVASCULAR: S1 and S2 present. No murmurs, rubs, or gallops. PULMONARY: Left sided rhonchi, no crackling, or wheezing ABDOMEN: Soft, nontender, nondistended, normoactive bowel sounds. No palpable organomegaly. MUSCULOSKELETAL: No apparent joint swelling and deformities. EXTREMITIES: No apparent cyanosis, clubbing. 1+ pedal edema. NEUROLOGICAL: The patient is alert and oriented x3, Gross neurological examination did not reveal any focal deficits. 5/5 Strength bilateral UE and LE SKIN: No apparent rashes. Assessment and plan Patient is 73-year-old man with mild dementia who presents for generalized weakness and fall. #Generalized weakness #Leukocytosis Continuous cardiac monitoring Procalcitonin 0.36, creatinine kinase 136 - UA and CXR with no sign of infection Blood culture pending Given bolus 1.5L NS Continue IV fluids 75 mL/h Given Rocephin 2 g, Zosyn 3.375 g once Consult PT OT #Anemia, possible AUDRA - initial Hgb 11.7 => 9.9 => 10.1 - RDW 16.6 - Given Ferrlecit 125 mg - monitor CBC #CKD stage IIIa #Prerenal azotemia Initial creatinine 1.48 at baseline, BUN 30 =>24 - UA with protein 1+ - monitor CMP Chronic Medical Conditions # Essential hypertension - Resume home amlodipine #Coronary artery disease - Resume home Plavix, Aspirin - Resume home Statin #GERD - Resume home Pantoprazole #Anxiety/Depression - Resume home Sertraline F: IV Normal saline 75 mL/hr E: Replete as needed N: Heart healthy diet DVT ppx: Subq heparin 5000 units every 8 hours Code status: Full code Anticipated discharge place: Home Anticipated discharge time: 1-2 days Dictation was produced using [employer] dictation software. Please excuse any grammatical, word or spelling errors. 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 Loop recorder removed 12/30/21.dementia History of Any Multi-Drug Resistant Organisms: None Reported Past Surgical History: Hernia Repair, Joint Replacement Additional Past Surgical History / Comment(s): 06/01/17 intracranial angioplasty- (pt stated "he has stents') HFH, EGD with peg tube insertion since removed, R inguinal hernia repair, R total knee arthroplasty, colonoscopies with last one in 2019-normal., soniya eye cat sx, loop recorder since removed. Past Anesthesia/Blood Transfusion Reactions: No Reported Reaction Past Psychological History: No Psychological Hx Reported Smoking Status: Former smoker Past Alcohol Use History: None Reported Past Drug Use History: None Reported - Past Family History Mother Family Medical History: CVA/TIA, Diabetes Mellitus, Hyperlipidemia, Hypertension Father Family Medical History: CVA/TIA, Hypertension Medications and Allergies Home Medications Medication Instructions Recorded Confirmed Type Atorvastatin [Lipitor] 80 mg PO HS 05/26/17 10/17/24 History Aspirin EC [Ecotrin Low Dose] 81 mg PO DAILY 02/12/18 10/17/24 History calcitrioL 0.25 mcg PO DIRECTED 10/07/18 10/17/24 History Clopidogrel [Plavix] 75 mg PO DAILY 12/08/19 10/17/24 History amLODIPine [Norvasc] 5 mg PO DAILY 05/24/22 10/17/24 History Melatonin [Melatonin Tr] 10 mg PO HS 07/24/22 10/17/24 History Magnesium Oxide [Mag-Ox] 400 mg PO DAILY #14 tablet 07/08/24 10/17/24 Rx Meclizine [Antivert] 25 mg PO TID #20 tab 09/06/24 10/17/24 Rx Cetirizine HCl [Zyrtec] 10 mg PO HS 10/17/24 10/17/24 History Cholecalciferol (Vitamin D3) 50 mcg PO DAILY 10/17/24 10/17/24 History [Vitamin D3 (50 Mcg = 2000 Iu)] Clindamycin Topical Soln 1 applic TOPICAL BID 10/17/24 10/17/24 History [Cleocin-T Topical Soln] Ketoconazole 2% Shampoo [Nizoral] 1 applic TOPICAL DAILY 10/17/24 10/17/24 History Memantine [Namenda] 5 mg PO BID 10/17/24 10/17/24 History Pantoprazole [Protonix] 40 mg PO BID 10/17/24 10/17/24 History Sertraline [Zoloft] 100 mg PO HS 10/17/24 10/17/24 History Allergies Allergy/AdvReac Type Severity Reaction Status Date / Time No Known Allergies Allergy Verified 10/17/24 14:28 Physical Exam Vitals: Vital Signs Temp Pulse Resp BP Pulse Ox 10/17/24 05:00 79 18 154/95 10/17/24 01:36 76 18 162/90 95 10/16/24 23:30 98.6 F 89 16 155/86 94 L 10/16/24 21:35 99.5 F 84 18 141/91 94 L 10/16/24 15:15 100.6 F H 97 20 146/75 97 Intake and Output 10/16/24 10/17/24 10/17/24 22:59 06:59 14:59 Other: Weight 97.522 kg Results CBC & Chem 7: 10/17/24 14:09 10/17/24 06:26 Labs: Abnormal Lab Results - Last 24 Hours (Table) 10/16/24 10/16/24 10/16/24 Range/Units 15:19 15:19 15:19 WBC 12.7 H (3.8-10.6) k/uL RBC 3.79 L (4.30-5.90) m/uL Hgb 11.7 L (13.0-17.5) gm/dL Hct 36.4 L (39.0-53.0) % RDW 16.6 H (11.5-15.5) % Neutrophils # 10.8 H (1.3-7.7) k/uL BUN 30 H (9-20) mg/dL Creatinine 1.48 H (0.66-1.25) mg/dL Glucose 129 H (74-99) mg/dL Plasma Lactic Acid Del 2.5 H* (0.7-2.0) mmol/L Urine pH (5.0-8.0) Urine Protein (Negative) Urine Bacteria (None) /hpf Urine Mucus (None) /hpf 10/16/24 Range/Units 16:21 WBC (3.8-10.6) k/uL RBC (4.30-5.90) m/uL Hgb (13.0-17.5) gm/dL Hct (39.0-53.0) % RDW (11.5-15.5) % Neutrophils # (1.3-7.7) k/uL BUN (9-20) mg/dL Creatinine (0.66-1.25) mg/dL Glucose (74-99) mg/dL Plasma Lactic Acid Del (0.7-2.0) mmol/L Urine pH 8.5 H (5.0-8.0) Urine Protein 1+ H (Negative) Urine Bacteria Rare H (None) /hpf Urine Mucus Rare H (None) /hpf
[2024-10-17] MEDS ORDERED: Potassium Replacement Protocol 1 EACH MISC MISCELLANE PRN (18:10)
[2024-10-17] MEDS: SERTRALINE 100 MG TAB PO SCH (20:25)
[2024-10-18] MEDS ORDERED: VANCOMYCIN IV PER PHARMACY 1 EACH MISC MISCELLANE PRN (08:17)
[2024-10-18] MEDS: CEFEPIME 2 GM in SODIUM CHLORIDE 0.9% 100 ML IVPB SCH (08:44)
[2024-10-18] MEDS: VANCOMYCIN 1,500 MG in SODIUM CHLORIDE 0.9% 500 ML 500 ML IVPB ONE (09:01)
[2024-10-18 10:53] LABS: Basophils # (A) 0.07 X 10*3/uL (0.00-0.10); Basophils % (A) 0.7 %; Eosinophils # (A) 0.25 X 10*3/uL (0.04-0.35); Eosinophils % (A) 2.5 %; HCT 30.6 % (39.6-50.0); HGB 9.4 g/dL (13.0-17.0); Lymphocytes # (A) 1.98 X 10*3/uL (0.90-5.00); Lymphocytes % (A) 19.8 %; MCH 30.3 pg (27.0-32.0); MCHC 30.7 g/dL (32.0-37.0); MCV 98.7 FL (80.0-97.0); Mean Platelet Volume 9.8 FL (9.5-12.2); Monocytes # (A) 0.96 X 10*3/uL (0.20-1.00); Monocytes % (A) 9.6 %; NRBC Per 100 WBC 0 X 10*3/uL (0.00-0.01); Neutrophils # (A) 6.72 X 10*3/uL (1.80-7.70); Platelet Count 203 X 10*3/uL (140-440); RDW 16.4 % (11.5-14.5); WBC 10.02 X 10*3/uL (4.50-10.00)
[2024-10-18 10:57] LABS: ALT 21 U/L (10-49); AST 20 U/L (14-35); Albumin 3.5 g/dL (3.8-4.9); Alkaline Phosphatase 80 U/L (41-126); BUN/Creat Ratio 16.07 Ratio (12.00-20.00); Blood Urea Nitrogen 22.5 mg/dL (9.0-27.0); Calcium 8.7 mg/dL (8.7-10.3); Carbon Dioxide 23.9 mmol/L (21.6-31.8); Chloride 106 mmol/L (96-109); Globulin 2.5 g/dL (1.6-3.3); Glucose 108 mg/dL (70-110); Magnesium 1.6 mg/dL (1.5-2.4); Potassium 3.5 mmol/L (3.5-5.5); Sodium 139 mmol/L (135-145); Total Bilirubin 0.3 mg/dL (0.3-1.2)
[2024-10-18] MEDS: SODIUM FERRIC GLUCONAT-SUCROSE 125 MG in SODIUM CHLORIDE 0.9% 100 ML IVPB SCH (16:33)
--- NOTE | 2024-10-18 16:47 | P.PN ---
Subjective Progress Note Date: 10/18/24 History of present illness; Patient is 73-year-old man with mild dementia who presents for generalized weak ness and fall. Yesterday morning patient fell out of bed after reaching for his remote next to his nightstand. apparently heard a thump and saw patient, between nightstand in bed. He denies any head or neck pain at this time. At baseline patient can ambulate without assistance and is currently at his baseline mentation. Also, yesterday morning he had episode of nonbilious nonbloody emesis. In ER patient did have initial low-grade fever of 100.6. He continues to endorse weakness, and intermittent chills. He has no known melena or bloody stool. Patient reports absence of chest pain, palpitations, diaphoresis, dyspnea, nausea, vomiting, constipation, diarrhea, abdominal pain, myalgia, dizziness, and headache. Labs in ER significant for WBC 12.7 hemoglobin 11.7, BUN 30, creatinine 1.48, glucose 129, lactic acid venous 2.5 => 2.0 UA significant for pH 8.5, protein 1+. Chest x-ray done independently interpreted in the ER showed no acute cardiopulmonary process. CT head and neck done independently interpreted showed no acute intracranial process or fracture. Left ankle x-ray and left tibiofibular interpreted as no evidence for acute fracture with some moderate soft tissue swelling. 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 Blood culture resulted in gram-positive cocci. Repeat cultures taken. Patient will begin vancomycin. ID consulted. Labs today WBC 10, hemoglobin 9.4, sodium 139, potassium 3.5, procalcitonin 0.36. REVIEW OF SYSTEMS: Pertinent positives and negatives noted in HPI. PHYSICAL EXAMINATION: Vitals reviewed GENERAL: No acute distress. Well developed, well nourished. HEENT: Pupils are round and equally reacting to light. EOMI. No scleral icterus. Normocephalic, atraumatic. CARDIOVASCULAR: S1 and S2 present. No murmurs, rubs, or gallops. PULMONARY: Left sided rhonchi, no crackling, or wheezing ABDOMEN: Soft, nontender, nondistended, normoactive bowel sounds. No palpable organomegaly. MUSCULOSKELETAL: No apparent joint swelling and deformities. EXTREMITIES: No apparent cyanosis, clubbing. 1+ pedal edema. NEUROLOGICAL: The patient is alert and oriented x3, Gross neurological examination did not reveal any focal deficits. SKIN: No apparent rashes. Assessment and plan Patient is 73-year-old man with mild dementia who presents for generalized weakness and fall. #Generalized weakness #Leukocytosis #Bacteremia, possible contamination Continuous cardiac monitoring Procalcitonin 0.36, creatinine kinase 136 - UA and CXR with no sign of infection Blood culture postive for gram positive cocci, repeat culture Given Rocephin 2 g, Zosyn 3.375 g once - begin Vancomycin Consult PT OT #Anemia, possible AUDRA - initial Hgb 11.7 => 9.9 => 10.1 => 9.4 - RDW 16.6 - Given Ferrlecit 125 mg twice - monitor CBC #Prerenal azotemia, resolved Initial creatinine 1.48 at baseline, BUN 30 =>24 - UA with protein 1+ - monitor CMP Chronic Medical Conditions # Essential hypertension - Resume home amlodipine #Coronary artery disease - Resume home Plavix, Aspirin - Resume home Statin #GERD - Resume home Pantoprazole #Anxiety/Depression - Resume home Sertraline F: P.o. E: Replete as needed N: Heart healthy diet DVT ppx: Subq heparin 5000 units every 8 hours Code status: Full code Anticipated discharge place: Rehab facility Anticipated discharge time: 1-2 days Dictation was produced using [employer] dictation software. Please excuse any grammatical, word or spelling errors. Objective - Vital Signs Vital signs: Vital Signs Temp 98.8 F 10/18/24 07:00 Pulse 64 10/18/24 07:00 Resp 19 10/18/24 07:00 BP 151/71 10/18/24 07:00 Pulse Ox 93 L 10/18/24 07:00 FiO2 Intake & Output 10/17/24 10/18/24 10/18/24 18:59 06:59 18:59 Intake Total 240 Balance 240 Weight 97.522 kg Intake: Oral 240 Other: Voiding Method Urinal Diaper # Voids 4 - Labs CBC & Chem 7: 10/18/24 03:59 10/18/24 03:59 Labs: Abnormal Lab Results - Last 24 Hours (Table) 10/17/24 10/17/24 10/17/24 Range/Units 06:26 06:26 14:09 WBC 12.80 H 11.2 H (4.50-10.00) X 10*3/uL RBC 3.36 L 3.23 L (4.40-5.60) X 10*6/uL Hgb 9.9 L 10.1 L (13.0-17.0) g/dL Hct 32.9 L 31.9 L (39.6-50.0) % MCV 97.9 H (80.0-97.0) FL MCHC 30.1 L (32.0-37.0) g/dL RDW 16.4 H 16.7 H (11.5-14.5) % Immature Gran # 0.07 H (0.00-0.04) X 10*3/uL Neutrophils # 9.47 H 8.4 H (1.80-7.70) X 10*3/uL Monocytes # 1.20 H (0.20-1.00) X 10*3/uL Est GFR (CKD-EPI) 49 L (>=60) Glucose 122 H (70-110) mg/dL Microbiology - Last 24 Hours (Table) 10/16/24 16:50 Blood Culture Gram Stain - Preliminary Blood Blood Culture - Preliminary Molecular ID
[2024-10-19] MEDS: VANCOMYCIN 1,500 MG in SODIUM CHLORIDE 0.9% 500 ML 500 ML IVPB SCH (00:14)
--- NOTE | 2024-10-19 05:57 | P.CONS ---
History of Present Illness - Reason for Consult Consult date: 10/18/24 Bacteremia Requesting physician: Toby Noe - Chief Complaint Weakness and fell out of the bed x 1 day - History of Present Illness Patient is a 73-year-old -[place] male with a past medical history significant for hypertension hyperlipidemia osteoarthritis prostate disorder CVA TIA COPD patient has been brought into the hospital 2 days ago after apparently the patient fell out of the bed and the patient complaining of generalized weakness patient also have an episode of vomiting patient with presentation to the hospital did have a low-grade fever 100.6 F patient has been afebrile since then, patient currently denies having any headache or URI symptoms no chest pain no shortness of breath or cough no further nausea vomiting did have some abdominal distention discomfort and apparently did have a problem with constipation did not have any urinary symptoms of burning or frequency or any evidence of lower extremity swelling redness or back pain, patient on presentation to the hospital did have white count of 12.7 with a left shift BNP was mildly elevated however has improved liver enzymes are normal procalcitonin 0.36 UA has been negative influenza RSV COVID testing was negative patient did have a chest x-ray that was negative for acute cardiopulmonary disease process abdominal pelvis CT nonobstructive left renal calculi colonic diverticulosis, infrarenal abdominal aortic aneurysm 3.3 cm patient was initially treated with cefepime but has been switched to vancomycin because of positive blood culture infectious disease was consulted for further management of antibiotic therapy Review of Systems Positive point and negatives has been mentioned in the HPI, complete review of systems was performed and all other systems are negative Past Medical History Past Medical History: COPD, CVA/TIA, Eye Disorder, GERD/Reflux, Hyperlipidemia, Hypertension, Osteoarthritis (OA), Prostate Disorder, Renal Disease, Sleep Apnea/CPAP/BIPAP, Syncope Additional Past Medical History / Comment(s): Multiple TIAs, CVA 01/2017 with dysphagia-peg tube inserted and now out, has residual weakness lt arm/leg and some lt facial droop, chronic kidney disease stage III, BPH, Uti, ROSA has Cpap but does not tolerate it no longer using it, gastric ulcer, past hxR foot 3rd toe osteomylitis, arthritis multiple joints, past gastric ulcer, past hx shingels. Loop recorder removed 12/30/21.dementia History of Any Multi-Drug Resistant Organisms: None Reported Past Surgical History: Hernia Repair, Joint Replacement Additional Past Surgical History / Comment(s): 06/01/17 intracranial angioplasty-(pt stated "he has stents') HFH, EGD with peg tube insertion since removed, R inguinal hernia repair, R total knee arthroplasty, colonoscopies with last one in 2019-normal., soniya eye cat sx, loop recorder since removed. Past Anesthesia/Blood Transfusion Reactions: No Reported Reaction Past Psychological History: No Psychological Hx Reported Additional Psychological History / Comment(s): Pt lives with his in 2 story home that has 4 front porch steps. Pt stays on first level. No pets. No home care services. Pt uses a cane to ambulate. He owns a walker. Pt no longer drives, [facility] Smoking Status: Former smoker Past Alcohol Use History: None Reported Additional Past Alcohol Use History / Comment(s): started smoking 1963. quit 2015 smoked 1 ppd, no alcohol since 2015 Past Drug Use History: None Reported - Past Family History Mother Family Medical History: CVA/TIA, Diabetes Mellitus, Hyperlipidemia, Hypertension Father Family Medical History: CVA/TIA, Hypertension Medications and Allergies Home Medications Medication Instructions Recorded Confirmed Type Atorvastatin [Lipitor] 80 mg PO HS 05/26/17 10/17/24 History Aspirin EC [Ecotrin Low Dose] 81 mg PO DAILY 02/12/18 10/17/24 History calcitrioL 0.25 mcg PO DIRECTED 10/07/18 10/17/24 History Clopidogrel [Plavix] 75 mg PO DAILY 12/08/19 10/17/24 History amLODIPine [Norvasc] 5 mg PO DAILY 05/24/22 10/17/24 History Melatonin [Melatonin Tr] 10 mg PO HS 07/24/22 10/17/24 History Magnesium Oxide [Mag-Ox] 400 mg PO DAILY #14 tablet 07/08/24 10/17/24 Rx Meclizine [Antivert] 25 mg PO TID #20 tab 09/06/24 10/17/24 Rx Cetirizine HCl [Zyrtec] 10 mg PO HS 10/17/24 10/17/24 History Cholecalciferol (Vitamin D3) 50 mcg PO DAILY 10/17/24 10/17/24 History [Vitamin D3 (50 Mcg = 2000 Iu)] Clindamycin Topical Soln 1 applic TOPICAL BID 10/17/24 10/17/24 History [Cleocin-T Topical Soln] Ketoconazole 2% Shampoo [Nizoral] 1 applic TOPICAL DAILY 10/17/24 10/17/24 History Memantine [Namenda] 5 mg PO BID 10/17/24 10/17/24 History Pantoprazole [Protonix] 40 mg PO BID 10/17/24 10/17/24 History Sertraline [Zoloft] 100 mg PO HS 10/17/24 10/17/24 History Allergies Allergy/AdvReac Type Severity Reaction Status Date / Time No Known Allergies Allergy Verified 10/17/24 14:28 Physical Exam Vitals: Vital Signs Temp Pulse Pulse Resp BP BP Pulse Ox 10/18/24 07:00 98.8 F 64 19 151/71 93 L 10/18/24 00:19 98.6 F 66 18 140/77 92 L 10/17/24 19:13 98.2 F 87 20 103/79 93 L 10/17/24 17:59 98.8 F 62 18 158/86 93 L 10/17/24 15:07 98.6 F 68 19 166/92 92 L 10/17/24 11:31 99.0 F 76 19 162/99 96 Intake and Output 10/17/24 10/18/24 10/18/24 22:59 06:59 14:59 Intake Total 240 Balance 240 Intake: Oral 240 Other: Voiding Method Urinal Incontinent Diaper # Voids 4 Weight 97.522 kg GENERAL DESCRIPTION: Elderly male up in the chair, no distress. No tachypnea or accessory muscle of respiration use. HEENT: Shows Pallor , no scleral icterus. Oral mucous membrane is dry. NECK: Trachea central, no thyromegaly. LUNGS: Unlabored breathing. Clear to auscultation anteriorly. No wheeze or crackle. HEART: S1, S2, regular rate and rhythm. No loud murmur ABDOMEN: Soft, no tenderness , guarding or rigidity, no organomegaly EXTREMITIES: No edema of feet. SKIN: No rash, no masses palpable. NEUROLOGICAL: The patient is awake, alert, oriented x3, mood and affect normal. Results CBC & Chem 7: 10/18/24 03:59 10/18/24 03:59 Labs: Abnormal Lab Results - Last 24 Hours (Table) 10/17/24 10/17/24 10/17/24 Range/Units 06:26 06:26 14:09 WBC 12.80 H 11.2 H (4.50-10.00) X 10*3/uL RBC 3.36 L 3.23 L (4.40-5.60) X 10*6/uL Hgb 9.9 L 10.1 L (13.0-17.0) g/dL Hct 32.9 L 31.9 L (39.6-50.0) % MCV 97.9 H (80.0-97.0) FL MCHC 30.1 L (32.0-37.0) g/dL RDW 16.4 H 16.7 H (11.5-14.5) % Immature Gran # 0.07 H (0.00-0.04) X 10*3/uL Neutrophils # 9.47 H 8.4 H (1.80-7.70) X 10*3/uL Monocytes # 1.20 H (0.20-1.00) X 10*3/uL Est GFR (CKD-EPI) 49 L (>=60) Glucose 122 H (70-110) mg/dL Microbiology - Last 24 Hours (Table) 10/16/24 16:50 Blood Culture Gram Stain - Preliminary Blood Blood Culture - Preliminary Molecular ID Assessment and Plan (1) Positive blood culture Current Visit: Yes Status: Acute Code(s): R78.81 - BACTEREMIA SNOMED Code(s): 327934654 (2) Fever Current Visit: No Status: Acute Code(s): R50.9 - FEVER, UNSPECIFIED SNOMED Code(s): 347733895 Plan: 1patient with a positive blood culture with gram-positive cocci staph epi with a possible concern for skin contamination as the patient has no clinical disease to go along with it however blood cultures will be repeated to document clearance 2-patient did have a fever on presentation to hospital after he did have a fall however the patient did have a negative UA chest x-ray has been negative CT abdominal pelvis did not show any acute abnormality no evidence of any cellulitis or joint swelling 3-vancomycin pharmacy to dose target trough of 15 while watching kidney function and Vanco trough closely while waiting for repeat culture to finalize at the bedside question concern answered We will follow on clinical condition and cultures to further adjust medication if needed Thank you for this consultation we will follow the patient along with you Dictation was produced using [employer] dictation software. please excuse any grammatical, word or spelling errors. Time with Patient: Greater than 30
[2024-10-19 09:26] LABS: Basophils # (A) 0.05 X 10*3/uL (0.00-0.10); Basophils % (A) 0.7 %; Eosinophils # (A) 0.37 X 10*3/uL (0.04-0.35); Eosinophils % (A) 5.5 %; HCT 30.2 % (39.6-50.0); HGB 9.6 g/dL (13.0-17.0); Lymphocytes # (A) 2.06 X 10*3/uL (0.90-5.00); Lymphocytes % (A) 30.4 %; MCH 30.6 pg (27.0-32.0); MCHC 31.8 g/dL (32.0-37.0); MCV 96.2 FL (80.0-97.0); Mean Platelet Volume 9.9 FL (9.5-12.2); Monocytes # (A) 0.61 X 10*3/uL (0.20-1.00); NRBC Per 100 WBC 0 X 10*3/uL (0.00-0.01); Neutrophils # (A) 3.66 X 10*3/uL (1.80-7.70); Platelet Count 221 X 10*3/uL (140-440); RBC 3.14 X 10*6/uL (4.40-5.60); RDW 16.1 % (11.5-14.5); WBC 6.78 X 10*3/uL (4.50-10.00)
[2024-10-19 10:32] LABS: ALT 21 U/L (10-49); AST 20 U/L (14-35); Albumin 3.4 g/dL (3.8-4.9); Albumin/Globulin Ratio 1.36 Ratio (1.60-3.17); Alkaline Phosphatase 78 U/L (41-126); Blood Urea Nitrogen 14.4 mg/dL (9.0-27.0); Calcium 8.5 mg/dL (8.7-10.3); Carbon Dioxide 24.2 mmol/L (21.6-31.8); Chloride 106 mmol/L (96-109); Globulin 2.5 g/dL (1.6-3.3); Glucose 92 mg/dL (70-110); Potassium 3.4 mmol/L (3.5-5.5); Sodium 140 mmol/L (135-145); Total Bilirubin 0.2 mg/dL (0.3-1.2); Total Protein 5.9 g/dL (6.2-8.2)
--- NOTE | 2024-10-19 20:30 | P.PN ---
Subjective Progress Note Date: 10/19/24 History of present illness; Patient is 73-year-old man with mild dementia who presents for generalized w eakness and fall. Yesterday morning patient fell out of bed after reaching for his remote next to his nightstand. apparently heard a thump and saw patient, between nightstand in bed. He denies any head or neck pain at this time. At baseline patient can ambulate without assistance and is currently at his baseline mentation. Also, yesterday morning he had episode of nonbilious nonbloody emesis. In ER patient did have initial low-grade fever of 100.6. He continues to endorse weakness, and intermittent chills. He has no known melena or bloody stool. Patient reports absence of chest pain, palpitations, diaphoresis, dyspnea, nausea, vomiting, constipation, diarrhea, abdominal pain, myalgia, dizziness, and headache. Labs in ER significant for WBC 12.7 hemoglobin 11.7, BUN 30, creatinine 1.48, glucose 129, lactic acid venous 2.5 => 2.0 UA significant for pH 8.5, protein 1+. Chest x-ray done independently interpreted in the ER showed no acute cardiopulmonary process. CT head and neck done independently interpreted showed no acute intracranial process or fracture. Left ankle x-ray and left tibiofibular interpreted as no evidence for acute fracture with some moderate soft tissue swelling. 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 Blood culture resulted in gram-positive cocci. Repeat cultures taken. Patient will begin vancomycin. ID consulted. Labs today WBC 10, hemoglobin 9.4, sodium 139, potassium 3.5, procalcitonin 0.36. 10/19/2024 Patient is seen in follow-up today with no acute overnight issues noted. Patient is maintained on antibiotics in the form of vancomycin with infectious disease following awaiting finalized cultures. Will have PT/OT therapy reevaluate the patient again and also consult case management regarding ECF. Patient is currently afebrile at this time. REVIEW OF SYSTEMS: Pertinent positives and negatives noted in HPI. PHYSICAL EXAMINATION: Vitals reviewed GENERAL: No acute distress. Well developed, well nourished. HEENT: Pupils are round and equally reacting to light. EOMI. No scleral icterus. Normocephalic, atraumatic. CARDIOVASCULAR: S1 and S2 present. No murmurs, rubs, or gallops. PULMONARY: Diminished breath sounds bilaterally with some coarse scattered rhonchi noted, no crackling, or wheezing ABDOMEN: Soft, nontender, nondistended, normoactive bowel sounds. No palpable organomegaly. MUSCULOSKELETAL: No apparent joint swelling and deformities. EXTREMITIES: No apparent cyanosis, clubbing. 1+ pedal edema. NEUROLOGICAL: The patient is alert and oriented x3, Gross neurological examination did not reveal any focal deficits. Diffusely weak SKIN: No apparent rashes. Assessment and plan Patient is 73-year-old man with mild dementia who presents for generalized weakness and fall. #Generalized weakness #Leukocytosis #Bacteremia, possible contamination Continuous cardiac monitoring Procalcitonin 0.36, creatinine kinase 136 - UA and CXR with no sign of infection Blood culture postive for gram positive cocci, repeat culture pending Given Rocephin 2 g, Zosyn 3.375 g once and is continued on vancomycin with infectious disease following Consult PT OT #Anemia, possible AUDRA - initial Hgb 11.7 => 9.9 => 10.1 => 9.4 - RDW 16.6 - Given Ferrlecit 125 mg twice - monitor CBC #Prerenal azotemia, resolved Initial creatinine 1.48 at baseline, BUN 30 =>24 - UA with protein 1+ - monitor CMP Chronic Medical Conditions # Essential hypertension - Resume home amlodipine #Coronary artery disease - Resume home Plavix, Aspirin - Resume home Statin #GERD - Resume home Pantoprazole #Anxiety/Depression - Resume home Sertraline F: P.o. E: Replete as needed N: Heart healthy diet DVT ppx: Subq heparin 5000 units every 8 hours Code status: Full code Plan: Will have PT/OT therapy reevaluate the patient in the a.m. and also discussed with case management/social work regarding discharge planning. Infectious disease following awaiting repeat blood cultures to determine clearance of bacteremia. Patient will continue on vancomycin and follow-up labs ordered Overall prognosis is guarded at this time Anticipated discharge place: Rehab facility Anticipated discharge time: 1-2 days Dictation was produced using [employer] software. Please excuse any grammatical, word or spelling errors. The impression and plan of care has been dictated as a scribe by Hoa Mc, Nurse Practitioner as directed. Dr. Chaka MD I have performed a history and examination and MDM of this patient, discussed the same with the dictator, and agree with the dictator's assessment and plan as written ,documented as a scribe. Based on total visit time, I have performed more than 50% of the visit. Objective - Vital Signs Vital signs: Vital Signs Temp 98.2 F 10/19/24 13:54 Pulse 74 10/19/24 13:54 Resp 19 10/19/24 13:54 BP 125/70 10/19/24 13:54 Pulse Ox 95 10/19/24 13:54 FiO2 Intake & Output 10/19/24 10/19/24 10/20/24 06:59 18:59 06:59 Intake Total 480 Balance 480 Intake: Oral 480 Other: Voiding Method Diaper Diaper # Voids 4 # Bowel Movements 1 - Labs CBC & Chem 7: 10/19/24 05:47 10/19/24 05:47 Labs: Abnormal Lab Results - Last 24 Hours (Table) 10/19/24 10/19/24 Range/Units 05:47 05:47 RBC 3.14 L (4.40-5.60) X 10*6/uL Hgb 9.6 L (13.0-17.0) g/dL Hct 30.2 L (39.6-50.0) % MCHC 31.8 L (32.0-37.0) g/dL RDW 16.1 H (11.5-14.5) % Eosinophils # 0.37 H (0.04-0.35) X 10*3/uL Potassium 3.4 L (3.5-5.5) mmol/L Calcium 8.5 L (8.7-10.3) mg/dL Total Bilirubin 0.2 L (0.3-1.2) mg/dL Total Protein 5.9 L (6.2-8.2) g/dL Albumin 3.4 L (3.8-4.9) g/dL Albumin/Globulin Ratio 1.36 L (1.60-3.17) Ratio Microbiology - Last 24 Hours (Table) 10/16/24 16:50 Blood Culture Gram Stain - Final Blood Blood Culture - Final Staphylococcus epidermidis Staph capitis SS capitis Molecular ID
[2024-10-19] MEDS: POTASSIUM CHLORIDE ER 20 MEQ TAB.ER PO SCH (21:39)
[2024-10-20] MEDS: VANCOMYCIN TROUGH DUE 1 EACH MISC MISCELLANE ONE (06:46)
--- NOTE | 2024-10-20 07:52 | P.PN ---
Subjective Progress Note Date: 10/19/24 Principal diagnosis: Reason for follow-up is a positive blood culture Patient is a 73-year-old -[place] male with a past medical history significant for hypertension hyperlipidemia osteoarthritis prostate disorder CVA TIA COPD patient has been brought into the hospital after apparently the patient fell out of the bed and the patient complaining of generalized weakness patient did have a low-grade fever 100.6 blood culture positive for gram-positive cocci prompting this consultation. On today's evaluation that is 10/19/2024, Patient is afebrile patient is currently on room air and denies having any shortness of breath, the patient denies any chest pain or cough, the patient denies any nausea vomiting did not have any abdominal pain and no diarrhea. Patient white count normalized to 6.78 creatinine is 1.2 coagula trough is 15.6 blood culture repeat currently pending Objective - Vital Signs Vital signs: Vital Signs Temp 98.2 F 10/19/24 13:54 Pulse 74 10/19/24 13:54 Resp 19 10/19/24 13:54 BP 125/70 10/19/24 13:54 Pulse Ox 95 10/19/24 13:54 FiO2 Intake & Output 10/19/24 10/19/24 10/20/24 06:59 18:59 06:59 Intake Total 480 Balance 480 Intake: Oral 480 Other: Voiding Method Diaper Diaper # Voids 4 # Bowel Movements 1 - Exam GENERAL DESCRIPTION: An elderly male up in the chair in no distress RESPIRATORY SYSTEM: Unlabored breathing , decreased breath sounds at bases HEART: S1 S2 regular rate and rhythm , ABDOMEN: Soft , no tenderness EXTREMITIES: No edema feet - Labs CBC & Chem 7: 10/19/24 05:47 10/19/24 05:47 Labs: Abnormal Lab Results - Last 24 Hours (Table) 10/19/24 10/19/24 Range/Units 05:47 05:47 RBC 3.14 L (4.40-5.60) X 10*6/uL Hgb 9.6 L (13.0-17.0) g/dL Hct 30.2 L (39.6-50.0) % MCHC 31.8 L (32.0-37.0) g/dL RDW 16.1 H (11.5-14.5) % Eosinophils # 0.37 H (0.04-0.35) X 10*3/uL Potassium 3.4 L (3.5-5.5) mmol/L Calcium 8.5 L (8.7-10.3) mg/dL Total Bilirubin 0.2 L (0.3-1.2) mg/dL Total Protein 5.9 L (6.2-8.2) g/dL Albumin 3.4 L (3.8-4.9) g/dL Albumin/Globulin Ratio 1.36 L (1.60-3.17) Ratio Microbiology - Last 24 Hours (Table) 10/16/24 16:50 Blood Culture Gram Stain - Final Blood Blood Culture - Final Staphylococcus epidermidis Staph capitis SS capitis Molecular ID Assessment and Plan (1) Positive blood culture Current Visit: Yes Status: Acute Code(s): R78.81 - BACTEREMIA SNOMED Code(s): 016991664 (2) Fever Current Visit: No Status: Acute Code(s): R50.9 - FEVER, UNSPECIFIED SNOMED Code(s): 009815893 Plan: 1patient with a positive blood culture with gram-positive cocci staph epi with a possible concern for skin contamination as the patient has no clinical disease to go along with it however blood cultures will be repeated to document clearance 2-patient did have a fever on presentation to hospital after he did have a fall however the patient did have a negative UA chest x-ray has been negative CT abdominal pelvis did not show any acute abnormality no evidence of any cellulitis or joint swelling 3-patient to continue with vancomycin pharmacy to dose target trough of 15 while waiting for repeat culture to finalize Dictation was produced using [employer] dictation software. please excuse any grammatical, word or spelling errors. Time with Patient: Less than 30
[2024-10-20 08:46] LABS: ALT 30 U/L (10-49); AST 28 U/L (14-35); Albumin 3.4 g/dL (3.8-4.9); Albumin/Globulin Ratio 1.36 Ratio (1.60-3.17); Alkaline Phosphatase 90 U/L (41-126); BUN/Creat Ratio 11.08 Ratio (12.00-20.00); Blood Urea Nitrogen 13.3 mg/dL (9.0-27.0); Calcium 8.5 mg/dL (8.7-10.3); Chloride 103 mmol/L (96-109); Globulin 2.5 g/dL (1.6-3.3); Glucose 94 mg/dL (70-110); Potassium 3.8 mmol/L (3.5-5.5); Sodium 137 mmol/L (135-145); Total Bilirubin 0.3 mg/dL (0.3-1.2); Total Protein 5.9 g/dL (6.2-8.2)
[2024-10-20 09:19] LABS: Basophils # (A) 0.05 X 10*3/uL (0.00-0.10); Basophils % (A) 0.7 %; Eosinophils # (A) 0.39 X 10*3/uL (0.04-0.35); Eosinophils % (A) 5.6 %; HCT 31.9 % (39.6-50.0); HGB 10.2 g/dL (13.0-17.0); Lymphocytes % (A) 27.5 %; MCH 30.4 pg (27.0-32.0); MCV 94.9 FL (80.0-97.0); Monocytes # (A) 0.64 X 10*3/uL (0.20-1.00); Monocytes % (A) 9.3 %; NRBC Per 100 WBC 0 X 10*3/uL (0.00-0.01); Neutrophils # (A) 3.87 X 10*3/uL (1.80-7.70); Platelet Count 254 X 10*3/uL (140-440); RBC 3.36 X 10*6/uL (4.40-5.60); RDW 15.9 % (11.5-14.5); WBC 6.91 X 10*3/uL (4.50-10.00)
--- NOTE | 2024-10-20 13:53 | CDI ---
Documentation Clarification Form Date: 10/20/2024 01:07:51 PM From: Deisy Short RN CCDS Phone: [phone] Admit Date: 10/17/2024 10:25:00 AM Patient Name: Abram Sesay Visit Number: [id number] Discharge Date: ATTENTION: The Clinical Documentation Specialists (CDI) and [facility] Coding Staff appreciate your assistance in clarifying documentation. Please respond to the clarification below the line at the bottom and electronically sign. The CDI & [facility] Coding staff will review the response and follow-up if needed. Please note: Queries are made part of the Legal Health Record. If you have any questions, please contact the author of this message via ITS. Doctor: Raheem Goldsmith The patients principal diagnosis the diagnosis that was chiefly responsible for the admission - has not been clearly identified and clarification is requested. The patient presented with the following [insert symptoms and/or diagnoses] History/Risk factors: 73 year old male presents to the ED with generalized weakness, non bloody emesis and falling out of bed. Medical History: CKD 3a, HTN, CAD, GERD and anxiety/depression. 10/17, HP Clinical Indicators: Lab findings, 10/16: Wbc 12.7, Hgb 11.7, Hct 36.4, Neutrophils 10.8, BUN 30, Cr 1.48, Glucose 129, Lactic acid 2.5 10/17 Hgb 9.9, Hgb 10.1 Hct 32.9; 10/18 Hgb 9.4 Hct 31.9; 10/19 Hgb 9.6 Hct 30.2; 10/20 Hgb 10.2, 31.9 Microbiology, 10/16: Final 10/19: Staphylococcus epidrmidis Staphylococcus capitis SS capitis 10/18: No growth after 24 Hours; 10/19 No growth after 24 Hours CXR, 10/16: No acute cardiopulmonary disease/process ABD/ PELVIS CT, 10/16: nonobstructive renal calculi, Colonic diverticulosis, Intrarenal abdominal aortic aneurysmal dilation measuring up to 3.3cm. Vital Signs, 10/16: B/P 146/75; HR 97; Temp 100.6 F Oral; RR 20; SpO2 97% RA ED Note, 10/16: Sepsis, Generalized weakness, Abdominal aortic aneurysm (AAA)_ 3.0cm to 5.5cm in diameter in male. ID Note, 10/19: Patient with a positive blood culture with gram positive cocci staph epi with concern for skin contamination as the patient has no clinical disease to go along with it however blood cultures will be repeated to document clearance. Patient did have a fever on presentation to hospital did have a negative UA chest xray has been negative ct abdominal pelvis did not show any acute abnormality no evidence of any cellulitis or joint swelling. Treatment: 10/16 Tylenol 650mg po x1; 10/16 0.9ns 1.5L IV bolus; 10/16 Ceftriaxone ivpb x 1 10/16 Zosyn IVPB x 1; 10/17 0.9NS IV 20cc/hr; 10/17 Ferric sodium gluconate IVPB x 1; 10/18 Cefepime IVPB x 1; 10/18 Vancomycin IVPB x 1; 10/18 Ferric Sodium Gluconate IVPB Daily; 10/19 Vancomycin IVPB Q16H; Consults: In your professional opinion, can you please clarify which diagnosis, after study, was the reason chiefly responsible for the admission? [ ] [ Insert diagnosis ] [x ] Sepsis [ ] Anemia [ specify type ] [ ] Other, please specify [ ] Unable to determine (Template Last Revised: December 2020) MTDD
[2024-10-20] MEDS: SODIUM FERRIC GLUCONAT-SUCROSE 125 MG in SODIUM CHLORIDE 0.9% 100 ML IVPB SCH (14:18)
--- NOTE | 2024-10-20 17:34 | P.PN ---
Subjective Progress Note Date: 10/20/24 History of present illness; Patient is 73-year-old man with mild dementia who presents for generalized weak ness and fall. Yesterday morning patient fell out of bed after reaching for his remote next to his nightstand. apparently heard a thump and saw patient, between nightstand in bed. He denies any head or neck pain at this time. At baseline patient can ambulate without assistance and is currently at his baseline mentation. Also, yesterday morning he had episode of nonbilious nonbloody emesis. In ER patient did have initial low-grade fever of 100.6. He continues to endorse weakness, and intermittent chills. He has no known melena or bloody stool. Patient reports absence of chest pain, palpitations, diaphoresis, dyspnea, nausea, vomiting, constipation, diarrhea, abdominal pain, myalgia, dizziness, and headache. Labs in ER significant for WBC 12.7 hemoglobin 11.7, BUN 30, creatinine 1.48, glucose 129, lactic acid venous 2.5 => 2.0 UA significant for pH 8.5, protein 1+. Chest x-ray done independently interpreted in the ER showed no acute cardiopulmonary process. CT head and neck done independently interpreted showed no acute intracranial process or fracture. Left ankle x-ray and left tibiofibular interpreted as no evidence for acute fracture with some moderate soft tissue swelling. 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 Blood culture resulted in gram-positive cocci. Repeat cultures taken. Patient will begin vancomycin. ID consulted. Labs today WBC 10, hemoglobin 9.4, sodium 139, potassium 3.5, procalcitonin 0.36. 10/19/2024 Patient is seen in follow-up today with no acute overnight issues noted. Patient is maintained on antibiotics in the form of vancomycin with infectious disease following awaiting finalized cultures. Will have PT/OT therapy reevaluate the patient again and also consult case management regarding ECF. Patient is currently afebrile at this time. 10/20/2024 Patient is seen and examined today at bedside. No acute events overnight. He is afebrile and has no other complaints. He continues on vancomycin with infectious disease following awaiting finalized cultures. PT OT suggest subacute rehab on discharge for ongoing weakness. REVIEW OF SYSTEMS: Pertinent positives and negatives noted in HPI. PHYSICAL EXAMINATION: Vitals reviewed GENERAL: No acute distress. Well developed, well nourished. HEENT: Pupils are round and equally reacting to light. EOMI. No scleral icterus. Normocephalic, atraumatic. CARDIOVASCULAR: S1 and S2 present. No murmurs, rubs, or gallops. PULMONARY: Clear to auscultation, no crackling, or wheezing ABDOMEN: Soft, nontender, nondistended, normoactive bowel sounds. No palpable organomegaly. MUSCULOSKELETAL: No apparent joint swelling and deformities. EXTREMITIES: No apparent cyanosis, clubbing. 1+ pedal edema. NEUROLOGICAL: The patient is alert and oriented x3, Gross neurological examination did not reveal any focal deficits. SKIN: No apparent rashes. Assessment and plan Patient is 73-year-old man with mild dementia who presents for generalized weakness and fall. #Leukocytosis, resolved #Bacteremia, possible contamination Continuous cardiac monitoring Procalcitonin 0.36, creatinine kinase 136 - UA and CXR with no sign of infection Blood culture positive for s. epidermidis, repeat culture pending Given Rocephin 2 g, Zosyn 3.375 g once - Continue vancomycin #Generalized weakness #Anemia, possible AUDRA - initial Hgb 11.7 => 9.9 => 10.1 => 9.4 - RDW 16.6 - Given Ferrlecit 125 mg twice - monitor CBC PT/OT note reviewed #Prerenal azotemia, resolved Initial creatinine 1.48 at baseline, BUN 30 =>24 - UA with protein 1+ - monitor CMP Chronic Medical Conditions # Essential hypertension - Resume home amlodipine #Coronary artery disease - Resume home Plavix, Aspirin - Resume home Statin #GERD - Resume home Pantoprazole #Anxiety/Depression - Resume home Sertraline F: P.o. E: Replete as needed N: Heart healthy diet DVT ppx: Subq heparin 5000 units every 8 hours Code status: Full code Discharge place: Subacute rehab Anticipated discharge time: 1-2 days Dictation was produced using [employer] dictation software. Please excuse any grammatical, word or spelling errors. Attestation I have seen and examined this patient with my resident , discussed the same with the resident/BULMARO, and agree with the dictator's assessment and plan as written Dr. Raheem thurston Objective - Vital Signs Vital signs: Vital Signs Temp 97.9 F 10/20/24 06:55 Pulse 64 10/20/24 06:55 Resp 18 10/20/24 06:55 BP 170/83 10/20/24 06:55 Pulse Ox 97 10/20/24 06:55 FiO2 Intake & Output 10/19/24 10/20/24 10/20/24 18:59 06:59 18:59 Other: Voiding Method Diaper Urinal Diaper # Voids 1 # Bowel Movements 1 - Labs CBC & Chem 7: 10/20/24 06:27 10/20/24 06:27 Labs: Abnormal Lab Results - Last 24 Hours (Table) 10/19/24 10/19/24 10/20/24 Range/Units 05:47 05:47 06:27 RBC 3.14 L (4.40-5.60) X 10*6/uL Hgb 9.6 L (13.0-17.0) g/dL Hct 30.2 L (39.6-50.0) % MCHC 31.8 L (32.0-37.0) g/dL RDW 16.1 H (11.5-14.5) % Eosinophils # 0.37 H (0.04-0.35) X 10*3/uL Potassium 3.4 L (3.5-5.5) mmol/L BUN/Creatinine Ratio 11.08 L (12.00-20.00) Ratio Calcium 8.5 L 8.5 L (8.7-10.3) mg/dL Total Bilirubin 0.2 L (0.3-1.2) mg/dL Total Protein 5.9 L 5.9 L (6.2-8.2) g/dL Albumin 3.4 L 3.4 L (3.8-4.9) g/dL Albumin/Globulin Ratio 1.36 L 1.36 L (1.60-3.17) Ratio Microbiology - Last 24 Hours (Table) 10/18/24 11:49 Blood Culture - Preliminary Blood 10/16/24 16:50 Blood Culture Gram Stain - Final Blood Blood Culture - Final Staphylococcus epidermidis Staph capitis SS capitis Molecular ID
[2024-10-20 23:04] VITALS: RESP 17
[2024-10-21 08:22] VITALS: BP 160/86; PULSE 72; TEMP 98.3
[2024-10-21 10:10] LABS: Anisocytosis Slight; HCT 32.3 % (39.0-53.0); HGB 10.3 gm/dL (13.0-17.5); Hypochromasia Slight; MCH 31.1 pg (25.0-35.0); MCHC 31.8 g/dL (31.0-37.0); MCV 97.8 fL (80.0-100.0); Mean Platelet Volume 7.9; Platelet Count 248 k/uL (150-450); RDW 16.6 % (11.5-15.5); WBC 6.6 k/uL (3.8-10.6)
[2024-10-21 10:47] LABS: African American GFR (CKD) 64 (>60 ml/min/1.73 sqM); Anion Gap 5 mmol/L; Blood Urea Nitrogen 15 mg/dL (9-20); Calcium 8.4 mg/dL (8.4-10.2); Carbon Dioxide 25 mmol/L (22-30); Chloride 105 mmol/L (98-107); Glucose 139 mg/dL (74-99); Non-African American GFR(CKD) 55 (>60 ml/min/1.73 sqM); Potassium 3.5 mmol/L (3.5-5.1); Sodium 135 mmol/L (137-145)
--- NOTE | 2024-10-21 11:53 | P.DS ---
Providers Date of admission: 10/17/24 10:25 Expected date of discharge: 10/21/24 Attending physician: Miguel Church Consults: 10/18/24 08:12 Consult Physician Routine Consulting Provider: Neo Young Consult Reason/Comments: bacteremia Do you want consulting provider notified?: Yes Primary care physician: Rick Luke Hospital Course: Discharge diagnoses; #Leukocytosis, resolved #Bacteremia, possible contamination #Generalized weakness #Anemia #Prerenal azotemia, resolved # Essential hypertension #Coronary artery disease #GERD #Anxiety/Depression Hospital course; History of present illness; Patient is 73-year-old man with mild dementia who presents for generalized weakness and fall. Yesterday morning patient fell out of bed after reaching for his remote next to his nightstand. apparently heard a thump and saw patient, between nightstand in bed. He denies any head or neck pain at this time. At baseline patient can ambulate without assistance and is currently at his baseline mentation. Also, yesterday morning he had episode of nonbilious nonbloody emesis. In ER patient did have initial low-grade fever of 100.6. He continues to endorse weakness, and intermittent chills. He has no known melena or bloody stool. Patient reports absence of chest pain, palpitations, diaphoresis, dyspnea, nausea, vomiting, constipation, diarrhea, abdominal pain, myalgia, dizziness, and headache. Labs in ER significant for WBC 12.7 hemoglobin 11.7, BUN 30, creatinine 1.48, glucose 129, lactic acid venous 2.5 => 2.0 UA significant for pH 8.5, protein 1+. Chest x-ray done independently interpreted in the ER showed no acute cardiopulmonary process. CT head and neck done independently interpreted showed no acute intracranial process or fracture. Left ankle x-ray and left tibiofibular interpreted as no evidence for acute fracture with some moderate soft tissue swelling. 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 Repeat cultures were found to have no growth. He continued to have generalized weakness was evaluated by PT recommended subacute rehab. Patient is discharged in stable condition to [facility]. No new medications for discharge, may resume home medications. He is to follow-up with his PCP. PHYSICAL EXAMINATION: Vitals reviewed GENERAL: No acute distress. Well developed, well nourished. HEENT: Pupils are round and equally reacting to light. EOMI. No scleral icterus. Normocephalic, atraumatic. CARDIOVASCULAR: S1 and S2 present. No murmurs, rubs, or gallops. PULMONARY: Clear to auscultation, no crackling, or wheezing ABDOMEN: Soft, nontender, nondistended, normoactive bowel sounds. No palpable organomegaly. MUSCULOSKELETAL: No apparent joint swelling and deformities. EXTREMITIES: No apparent cyanosis, clubbing. 1+ pedal edema. NEUROLOGICAL: The patient is alert and oriented x3, Gross neurological examination did not reveal any focal deficits. SKIN: No apparent rashes. Dictation was produced using [employer] dictation software. please excuse any grammatical, word or spelling errors. Attestation I have seen and examined this patient with my resident , discussed the same with the resident/BULMARO, and agree with the dictator's assessment and plan as written Dr. Raheem thurston Patient Condition at Discharge: Stable Plan - Discharge Summary New Discharge Prescriptions: Continue Atorvastatin [Lipitor] 80 mg PO HS Aspirin EC [Ecotrin Low Dose] 81 mg PO DAILY calcitrioL 0.25 mcg PO DIRECTED Clopidogrel [Plavix] 75 mg PO DAILY amLODIPine [Norvasc] 5 mg PO DAILY Magnesium Oxide [Mag-Ox] 400 mg PO DAILY #14 tablet Meclizine [Antivert] 25 mg PO TID #20 tab Ketoconazole 2% Shampoo [Nizoral] 1 applic TOPICAL DAILY Clindamycin Topical Soln [Cleocin-T Topical Soln] 1 applic TOPICAL BID Sertraline [Zoloft] 100 mg PO HS Melatonin [Melatonin Tr] 10 mg PO HS Memantine [Namenda] 5 mg PO BID Pantoprazole [Protonix] 40 mg PO BID Cetirizine HCl [Zyrtec] 10 mg PO HS Cholecalciferol (Vitamin D3) [Vitamin D3 (50 Mcg = 2000 Iu)] 50 mcg PO DAILY Discharge Medication List Atorvastatin [Lipitor] 80 mg PO HS 05/26/17 [History] Aspirin EC [Ecotrin Low Dose] 81 mg PO DAILY 02/12/18 [History] calcitrioL 0.25 mcg PO DIRECTED 10/07/18 [History] Clopidogrel [Plavix] 75 mg PO DAILY 12/08/19 [History] amLODIPine [Norvasc] 5 mg PO DAILY 05/24/22 [History] Melatonin [Melatonin Tr] 10 mg PO HS 07/24/22 [History] Magnesium Oxide [Mag-Ox] 400 mg PO DAILY #14 tablet 07/08/24 [Rx] Meclizine [Antivert] 25 mg PO TID #20 tab 09/06/24 [Rx] Cetirizine HCl [Zyrtec] 10 mg PO HS 10/17/24 [History] Cholecalciferol (Vitamin D3) [Vitamin D3 (50 Mcg = 2000 Iu)] 50 mcg PO DAILY 10/17/24 [History] Clindamycin Topical Soln [Cleocin-T Topical Soln] 1 applic TOPICAL BID 10/17/24 [History] Ketoconazole 2% Shampoo [Nizoral] 1 applic TOPICAL DAILY 10/17/24 [History] Memantine [Namenda] 5 mg PO BID 10/17/24 [History] Pantoprazole [Protonix] 40 mg PO BID 10/17/24 [History] Sertraline [Zoloft] 100 mg PO HS 10/17/24 [History] Follow up Appointment(s)/Referral(s): Rick Luke MD [Primary Care Provider] - 1-2 days [facility], [NON-STAFF] - As Needed Activity/Diet/Wound Care/Special Instructions: Diet: Heart Healthy Discharge Disposition: TRANSFER TO SNF/ECF
--- NOTE | 2024-10-21 15:13 | P.PN ---
Subjective Progress Note Date: 10/20/24 Principal diagnosis: Reason for follow-up is a positive blood culture Patient is a 73-year-old -Vietnamese male with a past medical history significant for hypertension hyperlipidemia osteoarthritis prostate disorder CVA TIA COPD patient has been brought into the hospital after apparently the patient fell out of the bed and the patient complaining of generalized weakness patient did have a low-grade fever 100.6 blood culture positive for gram-positive cocci prompting this consultation. On today's evaluation that is 10/20/2024, patient has been afebrile, patient is breathing comfortably and is currently on room air, patient denies having any significant cough no chest pain, patient denies nausea vomiting or diarrhea and no abdominal pain, urinary symptoms. Patient white count 6.9,Creatinine 1.2, vancomycin trough is 15.6 Objective - Vital Signs Vital signs: Vital Signs Temp 97.9 F 10/20/24 06:55 Pulse 64 10/20/24 06:55 Resp 18 10/20/24 06:55 BP 170/83 10/20/24 06:55 Pulse Ox 97 10/20/24 06:55 FiO2 Intake & Output 10/19/24 10/20/24 10/20/24 18:59 06:59 18:59 Other: Voiding Method Diaper Urinal Diaper # Voids 1 # Bowel Movements 1 - Exam GENERAL DESCRIPTION: An elderly male up in the chair in no distress RESPIRATORY SYSTEM: Unlabored breathing , decreased breath sounds at bases HEART: S1 S2 regular rate and rhythm , ABDOMEN: Soft , no tenderness EXTREMITIES: No edema feet - Labs CBC & Chem 7: 10/21/24 09:44 10/21/24 09:44 Labs: Abnormal Lab Results - Last 24 Hours (Table) 10/20/24 10/20/24 Range/Units 06:27 06:27 RBC 3.36 L (4.40-5.60) X 10*6/uL Hgb 10.2 L (13.0-17.0) g/dL Hct 31.9 L (39.6-50.0) % RDW 15.9 H (11.5-14.5) % Immature Gran # 0.06 H (0.00-0.04) X 10*3/uL Eosinophils # 0.39 H (0.04-0.35) X 10*3/uL BUN/Creatinine Ratio 11.08 L (12.00-20.00) Ratio Calcium 8.5 L (8.7-10.3) mg/dL Total Protein 5.9 L (6.2-8.2) g/dL Albumin 3.4 L (3.8-4.9) g/dL Albumin/Globulin Ratio 1.36 L (1.60-3.17) Ratio Microbiology - Last 24 Hours (Table) 10/18/24 11:49 Blood Culture - Preliminary Blood 10/16/24 16:50 Blood Culture Gram Stain - Final Blood Blood Culture - Final Staphylococcus epidermidis Staph capitis SS capitis Molecular ID Assessment and Plan (1) Positive blood culture Status: Acute Code(s): R78.81 - BACTEREMIA SNOMED Code(s): 540177345 (2) Fever Status: Acute Code(s): R50.9 - FEVER, UNSPECIFIED SNOMED Code(s): 458233357 Plan: 1patient with a positive blood culture with gram-positive cocci staph epi with a possible concern for skin contamination as the patient has no clinical disease to go along with it however blood cultures will be repeated to document clearance 2-patient did have a fever on presentation to hospital after he did have a fall however the patient did have a negative UA chest x-ray has been negative CT abd ominal pelvis did not show any acute abnormality no evidence of any cellulitis or joint swelling 3-patient to continue with vancomycin pharmacy to dose target trough of 15 while waiting for repeat culture to finalize, if the repeat blood culture negative recommend discontinue vancomycin Dictation was produced using [employer] dictation software. please excuse any grammatical, word or spelling errors. Time with Patient: Less than 30
--- NOTE | 2024-10-21 15:14 | P.PN ---
Subjective Progress Note Date: 10/21/24 Principal diagnosis: Reason for follow-up is a positive blood culture Patient is a 73-year-old -Malaysian male with a past medical history significant for hypertension hyperlipidemia osteoarthritis prostate disorder CVA TIA COPD patient has been brought into the hospital after apparently the patient fell out of the bed and the patient complaining of generalized weakness patient did have a low-grade fever 100.6 blood culture positive for gram-positive cocci prompting this consultation. On today's evaluation that is 10/21/2024, Patient is afebrile this morning patient denies having any chest pain shortness of breath did have a mild dry, the patient is currently on room air, patient denies any abdominal pain no diarrhea no nausea no vomiting, feeling better. Patient white count 6.6, creatinine is 1.27 blood culture repeat has been negative patient UA was negative CT abdominal pelvis did not show any acute abnormality and chest x-ray did not show any acute cardiopulmonary process Objective - Vital Signs Vital signs: Vital Signs Temp 98.3 F 10/21/24 07:51 Pulse 72 10/21/24 07:51 Resp 17 10/21/24 07:51 BP 160/86 10/21/24 07:51 Pulse Ox 95 10/21/24 07:51 FiO2 Intake & Output 10/20/24 10/21/24 10/21/24 18:59 06:59 18:59 Intake Total 500 Balance 500 Intake: Intake, IV Titration 500 Amount Vancomycin 1,500 mg In 500 Sodium Chloride 0.9% 500 ml 500 ml @ 167 mls/hr IVPB Q16H [facility] Rx#: [id number] Other: Voiding Method Urinal Urinal Urinal Diaper Diaper Diaper # Voids 2 # Bowel Movements 1 1 - Exam GENERAL DESCRIPTION: An elderly male up in the chair in no distress RESPIRATORY SYSTEM: Unlabored breathing , decreased breath sounds at bases HEART: S1 S2 regular rate and rhythm , ABDOMEN: Soft , no tenderness EXTREMITIES: No edema feet - Labs CBC & Chem 7: 10/21/24 09:44 10/21/24 09:44 Labs: Abnormal Lab Results - Last 24 Hours (Table) 10/21/24 10/21/24 Range/Units 09:44 09:44 RBC 3.30 L (4.30-5.90) m/uL Hgb 10.3 L (13.0-17.5) gm/dL Hct 32.3 L (39.0-53.0) % RDW 16.6 H (11.5-15.5) % Sodium 135 L (137-145) mmol/L Creatinine 1.27 H (0.66-1.25) mg/dL Glucose 139 H (74-99) mg/dL Microbiology - Last 24 Hours (Table) 10/18/24 11:49 Blood Culture - Preliminary Blood 10/19/24 05:47 Blood Culture - Preliminary Blood Assessment and Plan (1) Positive blood culture Status: Acute Code(s): R78.81 - BACTEREMIA SNOMED Code(s): 835420538 (2) Fever Status: Acute Code(s): R50.9 - FEVER, UNSPECIFIED SNOMED Code(s): 432361336 Plan: 1patient with a positive blood culture with gram-positive cocci staph epi with a possible concern for skin contamination as the patient has no clinical disease to go along with it however blood cultures will be repeated to document clearance 2-patient did have a fever on presentation to hospital after he did have a fall however the patient did have a negative UA chest x-ray has been negative CT abdominal pelvis did not show any acute abnormality no evidence of any cellulitis or joint swelling 3-patient to continue with vancomycin pharmacy to dose target trough of 15 while waiting for repeat culture to finalize, patient did have 2 blood cultures subsequently has been negative did not have any obvious focus of infection with extensive workup as recommended to discontinue vancomycin and no need for antibiotics on discharge discussed with admitting team Dictation was produced using [employer] dictation software. please excuse any grammatical, word or spelling errors.
== END 2024-10-21 14:00 | DRG 872 ==
LOC: EC 14:52 → 4SSUR 23:17 → OBSVTOIN 10-17 10:25 → 4SSUR 10-17 17:34
PROVIDERS: ADMIT Hospitalist; ATTEND Hospitalist
DX: A41.9 Sepsis, unspecified organism (principal); F03.A3 Unspecified dementia, mild, with mood disturbance; F03.A4 Unspecified dementia, mild, with anxiety; R79.89 Other specified abnormal findings of blood chemistry; N18.31 Chronic kidney disease, stage 3a; I12.9 Hypertensive chronic kidney disease with stage 1 through stage 4 chronic kidney disease, or unspecified chronic kidney disease; I25.10 Atherosclerotic heart disease of native coronary artery without angina pectoris; K21.9 Gastro-esophageal reflux disease without esophagitis; F32.A Depression, unspecified; R53.1 Weakness; J44.9 Chronic obstructive pulmonary disease, unspecified; E78.5 Hyperlipidemia, unspecified; G47.33 Obstructive sleep apnea (adult) (pediatric); D50.9 Iron deficiency anemia, unspecified; N40.0 Benign prostatic hyperplasia without lower urinary tract symptoms; D63.1 Anemia in chronic kidney disease; W06.XXXA Fall from bed, initial encounter; Z79.899 Other long term (current) drug therapy; Z79.82 Long term (current) use of aspirin; Z96.651 Presence of right artificial knee joint; Z86.73 Personal history of transient ischemic attack (TIA), and cerebral infarction without residual deficits; Z87.891 Personal history of nicotine dependence
CPT/HCPCS: 36415; 70450; 71046; 72125; 74177; 80048; 80053; 80202; 81001; 82150; 82272; 82550; 83605; 83690; 83735; 84145; 85025; 85027; 87040; 87636; 96365; 96366; 96367; 96368; 96372; 99285

== ENCOUNTER 2024-12-28 15:22 | Inpatient (IN) | payer MEDICARE, OTHER ==
--- NOTE | 2024-12-28 16:24 | ED ---
Nausea/Vomiting/Diarrhea HPI - General Chief complaint: Nausea/Vomiting/Diarrhea Stated complaint: nvd Time Seen by Provider: 12/28/24 16:05 Source: patient, EMS Mode of arrival: EMS Limitations: no limitations - History of Present Illness Initial comments: 73-year-old male presenting with chief complaint of nausea vomiting and diarrhea. His who is his primary caregiver is also present at the bedside. She reports for the last 24 hours the patient has had nausea vomiting and diarrhea. No blood present in his emesis or bowel movements. Patient has also had a low-grade fever. When they were getting ready to come here to the hospital he states that his left leg gave out when he was trying to get out of his chair and he slipped out of his chair. He denies any head injury or loss of consciousness. He does take Plavix. Patient denies any abdominal pain. reports that he has been coughing, he recently finished a course of antibiotics. No chest pain or difficulty breathing. - Related Data Home Medications Medication Instructions Recorded Confirmed Atorvastatin [Lipitor] 80 mg PO HS 05/26/17 10/17/24 Aspirin EC [Ecotrin Low Dose] 81 mg PO DAILY 02/12/18 10/17/24 calcitrioL 0.25 mcg PO DIRECTED 10/07/18 10/17/24 Clopidogrel [Plavix] 75 mg PO DAILY 12/08/19 10/17/24 amLODIPine [Norvasc] 5 mg PO DAILY 05/24/22 10/17/24 Melatonin [Melatonin Tr] 10 mg PO HS 07/24/22 10/17/24 Cetirizine HCl [Zyrtec] 10 mg PO HS 10/17/24 10/17/24 Cholecalciferol (Vitamin D3) 50 mcg PO DAILY 10/17/24 10/17/24 [Vitamin D3 (50 Mcg = 2000 Iu)] Clindamycin Topical Soln 1 applic TOPICAL BID 10/17/24 10/17/24 [Cleocin-T Topical Soln] Ketoconazole 2% Shampoo [Nizoral] 1 applic TOPICAL DAILY 10/17/24 10/17/24 Memantine [Namenda] 5 mg PO BID 10/17/24 10/17/24 Pantoprazole [Protonix] 40 mg PO BID 10/17/24 10/17/24 Sertraline [Zoloft] 100 mg PO HS 10/17/24 10/17/24 Previous Rx's Medication Instructions Recorded Magnesium Oxide [Mag-Ox] 400 mg PO DAILY #14 tablet 07/08/24 Meclizine [Antivert] 25 mg PO TID #20 tab 09/06/24 Allergies Allergy/AdvReac Type Severity Reaction Status Date / Time No Known Allergies Allergy Verified 10/17/24 14:28 Review of Systems ROS Statement: Those systems with pertinent positive or pertinent negative responses have been documented in the HPI. ROS Other: All systems not noted in ROS Statement are negative. 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 Loop recorder removed 12/30/21.dementia History of Any Multi-Drug Resistant Organisms: None Reported Past Surgical History: Hernia Repair, Joint Replacement Additional Past Surgical History / Comment(s): 06/01/17 intracranial angioplasty- (pt stated "he has stents') HFH, EGD with peg tube insertion since removed, R inguinal hernia repair, R total knee arthroplasty, colonoscopies with last one in 2019-normal., soniya eye cat sx, loop recorder since removed. Past Anesthesia/Blood Transfusion Reactions: No Reported Reaction Past Psychological History: No Psychological Hx Reported Smoking Status: Former smoker Past Alcohol Use History: None Reported Past Drug Use History: None Reported - Past Family History Mother Family Medical History: CVA/TIA, Diabetes Mellitus, Hyperlipidemia, Hypertension Father Family Medical History: CVA/TIA, Hypertension General Exam Limitations: no limitations General appearance: alert, in no apparent distress Head exam: Present: atraumatic, normocephalic, normal inspection Eye exam: Present: normal appearance, EOMI. Absent: periorbital swelling Neck exam: Present: normal inspection. Absent: meningismus Respiratory exam: Present: normal lung sounds bilaterally. Absent: respiratory distress, wheezes, rales, rhonchi, stridor Cardiovascular Exam: Present: regular rate, normal rhythm, normal heart sounds. Absent: systolic murmur, diastolic murmur, rubs, gallop, clicks GI/Abdominal exam: Present: soft, distended. Absent: tenderness, guarding, rebound, rigid Expanded Eye Response: (4) open spontaneously Motor Response: (6) obeys commands Verbal Response: (5) oriented Ilir Total: 15 Skin exam: Present: warm, dry, normal color Course Vital Signs 12/28/24 12/28/24 12/28/24 15:31 17:12 17:44 Temperature 100.2 F H 98.6 F Pulse Rate 92 79 82 Respiratory 26 H 22 20 Rate Blood Pressure 127/78 135/82 145/72 O2 Sat by Pulse 96 93 L 95 Oximetry 12/28/24 21:29 Temperature Pulse Rate 75 Respiratory 19 Rate Blood Pressure 135/91 O2 Sat by Pulse 96 Oximetry Medical Decision Making - Medical Decision Making Was pt. sent in by a medical professional or institution (, PA, CONTACT CENTER DIRECTOR, urgent care, hospital, or intermediate...) When possible be specific @ -No Did you speak to anyone other than the patient for history (EMS, parent, family, police, friend...)? What history was obtained from this source @ - provides majority of history Did you review nursing and triage notes (agree or disagree)? Why? @ -I reviewed and agree with nursing and triage notes Were old charts reviewed (outside hosp., previous admission, EMS record, old EKG, old radiological studies, urgent care reports/EKG's, intermediate records)? Report findings @ -No old charts were reviewed Differential Diagnosis (chest pain, altered mental status, abdominal pain women, abdominal pain men, vaginal bleeding, weakness, fever, dyspnea, syncope, headache, dizziness, GI bleed, back pain, seizure, CVA, palpatations, mental health, musculoskeletal)? @ -MDM Differential Weakness: Hypoglycemia, shock, sepsis, hyponatremia, anemia, infection, TN, ETOH, adverse medicine reaction, overdose, stroke. ... This is not meant to be an all-inclu sive list EKG interpreted by me (3pts min.). @ -As above X-rays interpreted by me (1pt min.). @ -Chest x-ray shows no acute process CT interpreted by me (1pt min.). @ -Brain CT shows no acute intracranial process. CT of the abdomen and pelvis shows no acute process U/S interpreted by me (1pt. min.). @ -None done What testing was considered but not performed or refused? (CT, X-rays, U/S, labs )? Why? @ -None What meds were considered but not given or refused? Why? @ -None Did you discuss the management of the patient with other professionals (professionals i.e. , PA, CONTACT CENTER DIRECTOR, lab, RT, psych nurse, social contact worker, stripping machine operator, teacher, medical laboratory technical officer, piano case maker)? Give summary @ -Spoke with Karen Larkin from [facility] who accepts admission Was smoking cessation discussed for >3mins.? @ -No Was critical care preformed (if so, how long)? @ -No Were there social determinants of health that impacted care today? How? (Homelessness, low income, unemployed, alcoholism, drug addiction, transporta tion, low edu. Level, literacy, decrease access to med. care, fpc, rehab)? @ -No Was there de-escalation of care discussed even if they declined (Discuss DNR or withdrawal of care, Hospice)? DNR status @ -No What co-morbidities impacted this encounter? (DM, HTN, Smoking, COPD, CAD, Cancer, CVA, ARF, Chemo, Hep., AIDS, mental health diagnosis, sleep apnea, morbid obesity)? @ -None Was patient admitted / discharged? Hospital course, mention meds given and route, prescriptions, significant lab abnormalities, going to OR and other pertinent info. @ -73-year-old male presenting with chief complaint of nausea vomiting diarrhea and fever. Patient is also weak and had a fall today. at bedside provides majority of history. History and physical examination are conducted. White count of 14.9. Hemoglobin 11.7. BUN 27 creatinine 1.81 which I suspect is secondary to dehydration, patient is receiving IV fluids. He is negative for influenza, RSV, COVID. Chest x-ray, brain CT, and CT of the abdomen and pelvis showed no acute process. In the setting of fever, urine may suggest UTI, patient is treated with Rocephin. Patient will be admitted for dehydration, weakness, UTI. Patient and are agreeable with this plan. I discussed this case with my attending Dr. Andre Undiagnosed new problem with uncertain prognosis? @ -No Drug Therapy requiring intensive monitoring for toxicity (Heparin, Nitro, Insulin, Cardizem)? @ -No Were any procedures done? @ -No Diagnosis/symptom? @ -UTI, dehydration, weakness Acute, or Chronic, or Acute on Chronic? @ -Acute Uncomplicated (without systemic symptoms) or Complicated (systemic symptoms)? @ -Complicated Side effects of treatment? @ -No Exacerbation, Progression, or Severe Exacerbation? @ -No Poses a threat to life or bodily function? How? (Chest pain, [place], TN, pneumonia, PE, COPD, DKA, ARF, appy, cholecystitis, CVA, Diverticulitis, Homicidal, Suicidal, threat to staff... and all critical care pts) @ -Yes - Lab Data Result diagrams: 12/28/24 16:00 12/28/24 16:00 Lab Results 12/28/24 12/28/24 12/28/24 Range/Units 15:30 16:00 16:00 WBC 14.9 H (3.8-10.6) k/uL RBC 3.98 L (4.30-5.90) m/uL Hgb 11.7 L (13.0-17.5) gm/dL Hct 38.3 L (39.0-53.0) % MCV 96.4 (80.0-100.0) fL MCH 29.5 (25.0-35.0) pg MCHC 30.6 L (31.0-37.0) g/dL RDW 17.0 H (11.5-15.5) % Plt Count 245 (150-450) k/uL MPV 7.6 Neutrophils % 87 % Lymphocytes % 7 % Monocytes % 5 % Eosinophils % 0 % Basophils % 0 % Neutrophils # 12.9 H (1.3-7.7) k/uL Lymphocytes # 1.0 (1.0-4.8) k/uL Monocytes # 0.7 (0-1.0) k/uL Eosinophils # 0.0 (0-0.7) k/uL Basophils # 0.0 (0-0.2) k/uL Hypochromasia Slight Anisocytosis Slight Sodium 137 (137-145) mmol/L Potassium 3.8 (3.5-5.1) mmol/L Chloride 98 (98-107) mmol/L Carbon Dioxide 26 (22-30) mmol/L Anion Gap 13 mmol/L BUN 27 H (9-20) mg/dL Creatinine 1.81 H (0.66-1.25) mg/dL Est GFR (CKD-EPI)AfAm 42 (>60 ml/min/1.73 sqM) Est GFR (CKD-EPI)NonAf 36 (>60 ml/min/1.73 sqM) Glucose 176 H (74-99) mg/dL Calcium 9.8 (8.4-10.2) mg/dL Total Bilirubin 0.5 (0.2-1.3) mg/dL AST 37 (17-59) U/L ALT 48 (4-49) U/L Alkaline Phosphatase 104 (38-126) U/L Total Protein 7.1 (6.3-8.2) g/dL Albumin 4.2 (3.5-5.0) g/dL Amylase 85 (30-110) U/L Lipase 133 (23-300) U/L Urine Color Urine Appearance (Clear) Urine pH (5.0-8.0) Ur Specific [place] (1.001-1.035) Urine Protein (Negative) Urine Glucose (UA) (Negative) Urine Ketones (Negative) Urine Blood (Negative) Urine Nitrite (Negative) Urine Bilirubin (Negative) Urine Urobilinogen (<2.0) mg/dL Ur Leukocyte Esterase (Negative) Urine RBC (0-5) /hpf Urine WBC (0-5) /hpf Ur Squamous Epith Cells (0-4) /hpf Urine Bacteria (None) /hpf Hyaline Casts (0-2) /lpf Urine Mucus (None) /hpf Influenza Type A (PCR) Not Detected (Not Detectd) Influenza Type B (PCR) Not Detected (Not Detectd) RSV (PCR) Not Detected (Not Detectd) SARS-CoV-2 (PCR) Not Detected (Not Detectd) 12/28/24 Range/Units 19:51 WBC (3.8-10.6) k/uL RBC (4.30-5.90) m/uL Hgb (13.0-17.5) gm/dL Hct (39.0-53.0) % MCV (80.0-100.0) fL MCH (25.0-35.0) pg MCHC (31.0-37.0) g/dL RDW (11.5-15.5) % Plt Count (150-450) k/uL MPV Neutrophils % % Lymphocytes % % Monocytes % % Eosinophils % % Basophils % % Neutrophils # (1.3-7.7) k/uL Lymphocytes # (1.0-4.8) k/uL Monocytes # (0-1.0) k/uL Eosinophils # (0-0.7) k/uL Basophils # (0-0.2) k/uL Hypochromasia Anisocytosis Sodium (137-145) mmol/L Potassium (3.5-5.1) mmol/L Chloride (98-107) mmol/L Carbon Dioxide (22-30) mmol/L Anion Gap mmol/L BUN (9-20) mg/dL Creatinine (0.66-1.25) mg/dL Est GFR (CKD-EPI)AfAm (>60 ml/min/1.73 sqM) Est GFR (CKD-EPI)NonAf (>60 ml/min/1.73 sqM) Glucose (74-99) mg/dL Calcium (8.4-10.2) mg/dL Total Bilirubin (0.2-1.3) mg/dL AST (17-59) U/L ALT (4-49) U/L Alkaline Phosphatase (38-126) U/L Total Protein (6.3-8.2) g/dL Albumin (3.5-5.0) g/dL Amylase (30-110) U/L Lipase (23-300) U/L Urine Color Light [place] Urine Appearance Cloudy (Clear) Urine pH 5.5 (5.0-8.0) Ur Specific [place] 1.031 (1.001-1.035) Urine Protein 1+ H (Negative) Urine Glucose (UA) Trace H (Negative) Urine Ketones Trace H (Negative) Urine Blood Moderate H (Negative) Urine Nitrite Negative (Negative) Urine Bilirubin 1+ H (Negative) Urine Urobilinogen 3.0 (<2.0) mg/dL Ur Leukocyte Esterase Small H (Negative) Urine RBC 56 H (0-5) /hpf Urine WBC 15 H (0-5) /hpf Ur Squamous Epith Cells 2 (0-4) /hpf Urine Bacteria Rare H (None) /hpf Hyaline Casts 38 H (0-2) /lpf Urine Mucus Few H (None) /hpf Influenza Type A (PCR) (Not Detectd) Influenza Type B (PCR) (Not Detectd) RSV (PCR) (Not Detectd) SARS-CoV-2 (PCR) (Not Detectd) Disposition Clinical Impression: UTI (urinary tract infection), Dehydration Disposition: ADMITTED IP TO THIS HOSP Condition: Fair Time of Disposition: 21:10
[2024-12-28] MEDS: ACETAMINOPHEN TAB 325 MG TAB PO STA (16:38)
[2024-12-28] MEDS: ONDANSETRON 4 MG/2 ML VIAL IVP STA (16:38)
[2024-12-28] MEDS: SODIUM CHLORIDE 0.9% 500 ML 500 ML IV STA (16:41)
--- NOTE | 2024-12-28 17:00 | XR ---
EXAMINATION TYPE: XR chest 2V DATE OF EXAM: 12/28/2024 4:55 PM COMPARISON: Previous chest radiograph 10/16/2024. CLINICAL INDICATION: Male, 73 years old with history of fever; [facility] TECHNIQUE: XR chest 2V Frontal and lateral views of the chest. FINDINGS: Lungs/Pleura: There is no evidence of pleural effusion, focal consolidation, or pneumothorax. Pulmonary vascularity: Unremarkable. Heart/mediastinum: Cardiomediastinal silhouette is unremarkable. Musculoskeletal: No acute osseous pathology. Other findings: None IMPRESSION: No acute cardiopulmonary disease/process. [facility], , 12/28/2024 4:58 PM
[2024-12-28 17:01] LABS: ALT 48 U/L (4-49); AST 37 U/L (17-59); African American GFR (CKD) 42 (>60 ml/min/1.73 sqM); Albumin 4.2 g/dL (3.5-5.0); Alkaline Phosphatase 104 U/L (38-126); Amylase 85 U/L (30-110); Anion Gap 13 mmol/L; Blood Urea Nitrogen 27 mg/dL (9-20); Calcium 9.8 mg/dL (8.4-10.2); Carbon Dioxide 26 mmol/L (22-30); Chloride 98 mmol/L (98-107); Glucose 176 mg/dL (74-99); Lipase 133 U/L (23-300); Non-African American GFR(CKD) 36 (>60 ml/min/1.73 sqM); Potassium 3.8 mmol/L (3.5-5.1); Sodium 137 mmol/L (137-145); Total Bilirubin 0.5 mg/dL (0.2-1.3); Total Protein 7.1 g/dL (6.3-8.2)
[2024-12-28 17:02] LABS: Anisocytosis Slight; Basophils % (A) 0 %; Eosinophils % (A) 0 %; HCT 38.3 % (39.0-53.0); HGB 11.7 gm/dL (13.0-17.5); Hypochromasia Slight; Lymphocytes % (A) 7 %; MCH 29.5 pg (25.0-35.0); MCHC 30.6 g/dL (31.0-37.0); MCV 96.4 fL (80.0-100.0); Mean Platelet Volume 7.6; Monocytes # (A) 0.7 k/uL (0-1.0); Monocytes % (A) 5 %; Neutrophils # (A) 12.9 k/uL (1.3-7.7); Neutrophils % (A) 87 %; Platelet Count 245 k/uL (150-450); RBC 3.98 m/uL (4.30-5.90); WBC 14.9 k/uL (3.8-10.6)
[2024-12-28 17:27] LABS: Influenza A Not Detected (Not Detectd); Influenza B Not Detected (Not Detectd); RSV Not Detected (Not Detectd)
--- NOTE | 2024-12-28 18:15 | CT ---
EXAMINATION TYPE: CT brain wo con DATE OF EXAM: 12/28/2024 6:00 PM COMPARISON: Prior CT study 10/16/2024.. CLINICAL INDICATION: Male, 73 years old with history of fall, weakness TECHNIQUE: Brain: Axial CT images of the brain were obtained with coronal and sagittal reformats created and rev iewed. Contrast used: None. Oral contrast used: None. CT DLP: 1096 mGycm, Automated exposure control for dose reduction was used. FINDINGS: Brain: Extra-axial spaces: No abnormal extra-axial fluid collections. Ventricular system: Dilatation in proportion to cerebral atrophy. Cerebral parenchyma: No acute intraparenchymal hemorrhage or mass effect. Scattered hypoattenuating areas are seen within the white matter. Small chronic infarct in the right basal ganglia and right t halamus. Cerebellum: Unremarkable. Mass effect: No evidence of midline shift. Intracranial vasculature: unremarkable Soft tissues: Normal. Calvarium/osseous structures: No depressed skull fracture. Paranasal sinuses and mastoid air cells: Mild scattered paranasal sinus disease. Visualized orbits: Bilateral aphakia IMPRESSION: No acute intracranial process. [facility], , 12/28/2024 6:12 PM
--- NOTE | 2024-12-28 18:31 | CT ---
EXAMINATION TYPE: CT abdomen pelvis wo con DATE OF EXAM: 12/28/2024 6:16 PM COMPARISON: CT abdomen/pelvis 10/16/2024. CLINICAL INDICATION: Male, 73 years old with history of fever, abdominal distention; fever, abdominal distention TECHNIQUE: Axial CT abdomen pelvis wo con;Sagittal and coronal reformats were created on a separate workstation. Oral contrast used: without Oral Contrast (none if empty) CT DLP: 1789.8 mGycm, Automated exposure control for dose reduction was used. FINDINGS: LOWER CHEST: Acutely unremarkable. ABDOMEN LIVER: Unremarkable GALLBLADDER AND BILE DUCTS: Unremarkable. PANCREAS: Unremarkable. SPLEEN: Unremarkable. ADRENAL GLANDS: Unremarkable. KIDNEYS AND URETERS: No evidence of hydronephrosis. The ureters are unremarkable. Simple appearing l eft renal cyst. Multiple nonobstructing left renal calculi. PELVIS BLADDER: No evidence for wall thickening or mass given limitations of exam. REPRODUCTIVE: Unremarkable. ABDOMEN & PELVIS STOMACH AND BOWEL: Stomach and duodenum are unremarkable. No evidence of bowel obstruction. Colonic d iverticulosis without acute diverticulitis. Small hiatal hernia. Diastases recti of the anterior abdo tamy wall. Small fat-containing. No hernia. PERITONEUM/RETROPERITONEUM: No evidence of pneumoperitoneum or free fluid. VASCULATURE: Calcified atherosclerotic disease and mild infrarenal fusiform aneurysmal dilatation jhonny suring 3.3 cm in diameter, stable from prior study. MUSCULOSKELETAL: No acute osseous abnormalities LYMPH NODES: No gross evidence for lymphadenopathy. SOFT TISSUE/ABDOMINAL WALL: Diastases recti of the anterior abdominal wall and small fat-containing p eriumbilical hernia. No drainable fluid collection/abscess. IMPRESSION: 1. No acute abnormality in the abdomen/pelvis or CT findings to explain reported symptoms. 2. Nonacute findings as above. [facility], , 12/28/2024 6:28 PM
[2024-12-28 20:31] LABS: Appearance,Urine Cloudy (Clear); Bacteria,Urine Rare /hpf; Bilirubin,Urine 1+ (Negative); Blood,Urine Moderate (Negative); Color,Urine Light Orange; Glucose,Urine (UA) Trace (Negative); Hyaline Casts,Urine 38 /lpf (0-2); Ketones,Urine Trace (Negative); Leukocyte Esterase,Urine Small (Negative); Mucus,Urine Few /hpf; Nitrite,Urine Negative (Negative); PH, Urine 5.5 (5.0-8.0); Protein,Urine 1+ (Negative); RBC,Urine 56 /hpf (0-5); Specific Gravity,Urine 1.031 (1.001-1.035); Squamous Epithelial Cell,Urine 2 /hpf (0-4); WBC,Urine 15 /hpf (0-5)
[2024-12-28] MEDS ORDERED: ONDANSETRON 4 MG/2 ML VIAL IVP PRN (21:33)
[2024-12-28] MEDS ORDERED: ACETAMINOPHEN TAB 325 MG TAB PO PRN (21:33)
[2024-12-28] MEDS ORDERED: NALOXONE 0.4 MG/ML 1 ML VIAL IV PRN (21:33)
[2024-12-28] MEDS: SODIUM CHLORIDE 0.9% 1,000 ML IV SCH (23:07)
[2024-12-29 09:03] LABS: Anisocytosis Slight; Basophils # (A) 0.1 k/uL (0-0.2); Basophils % (A) 0 %; Eosinophils # (A) 0.2 k/uL (0-0.7); Eosinophils % (A) 2 %; HCT 32.5 % (39.0-53.0); HGB 10.1 gm/dL (13.0-17.5); Hypochromasia Slight; Lymphocytes # (A) 2.1 k/uL (1.0-4.8); Lymphocytes % (A) 20 %; MCH 30.2 pg (25.0-35.0); MCHC 31.2 g/dL (31.0-37.0); Macrocytosis Slight; Mean Platelet Volume 7.5; Monocytes # (A) 0.6 k/uL (0-1.0); Monocytes % (A) 5 %; Neutrophils # (A) 7.2 k/uL (1.3-7.7); Neutrophils % (A) 70 %; Platelet Count 214 k/uL (150-450); RBC 3.35 m/uL (4.30-5.90); RDW 17.3 % (11.5-15.5); WBC 10.4 k/uL (3.8-10.6)
[2024-12-29 09:18] LABS: ALT 45 U/L (4-49); AST 30 U/L (17-59); African American GFR (CKD) 46 (>60 ml/min/1.73 sqM); Albumin 3.1 g/dL (3.5-5.0); Alkaline Phosphatase 82 U/L (38-126); Anion Gap 6 mmol/L; Blood Urea Nitrogen 26 mg/dL (9-20); Calcium 8.7 mg/dL (8.4-10.2); Carbon Dioxide 27 mmol/L (22-30); Chloride 104 mmol/L (98-107); Glucose 106 mg/dL (74-99); Non-African American GFR(CKD) 40 (>60 ml/min/1.73 sqM); Potassium 3.4 mmol/L (3.5-5.1); Sodium 137 mmol/L (137-145); Total Bilirubin 0.5 mg/dL (0.2-1.3); Total Protein 5.7 g/dL (6.3-8.2)
[2024-12-29] MEDS ORDERED: ALBUTEROL NEBULIZED 2.5 MG/3 ML INHALATION PRN (12:21)
--- NOTE | 2024-12-29 12:28 | P.HPIM ---
History of Present Illness Patient was on-year-old male came with complaints of nausea vomiting diarrhea patient denied any significant abdominal pain. Patient appeared to be in acute renal failure with creatinine going up to 1.8 baseline around 1.4. Patient had a low-grade fever of 100.2 when questioned about dysuria patient did have dysuria but urine is not significantly abnormal did have some l leukocytes in the urine and leukocyte esterase is positive. Patient was given a dose of Rocephin in ER. REVIEW OF SYSTEMS: All other systems are negative except those mentioned in the HPI PHYSICAL EXAMINATION: GENERAL: The patient is alert and oriented x3, not in any acute distress. Well developed, well nourished. HEENT: Pupils are round and equally reacting to light. EOMI. No scleral icterus. No conjunctival pallor. Normocephalic, atraumatic. No pharyngeal erythema. No thyromegaly. CARDIOVASCULAR: S1 and S2 present. No murmurs, rubs, or gallops. PULMONARY: Chest is clear to auscultation, no wheezing or crackles. ABDOMEN: Soft, nontender, nondistended, normoactive bowel sounds. No palpable organomegaly. MUSCULOSKELETAL: No joint swelling or deformity. EXTREMITIES: No cyanosis, clubbing, or pedal edema. NEUROLOGICAL: Gross neurological examination did not reveal any focal deficits. SKIN: No rashes. Assessment and plan -Sepsis possibility of UTI cannot be ruled out patient will be started on Rocephin -Acute renal failure on chronic kidney disease stage III yea continue with IV fluids at 75 cc/h -Nausea vomiting diarrhea probably can be secondary to UTI will be started on Rocephin as mentioned above we need to rule out C. difficile patient is requesting Imodium will rule out C. difficile before will give him Imodium -PE without any acute exacerbation -Generalized deconditioning PT and OT evaluation -Hyperlipidemia -Hypertension -Sleep apnea uses CPAP machine at home -Hypertension on amlodipine which is being held because of hypotension which may be related to UTI DVT prophylaxis: Subcutaneous heparin Past Medical History Past Medical History: COPD, CVA/TIA, Eye Disorder, GERD/Reflux, Hyperlipidemia, Hypertension, Osteoarthritis (OA), Prostate Disorder, Renal Disease, Sleep Apnea/CPAP/BIPAP, Syncope Additional Past Medical History / Comment(s): Multiple TIAs, CVA 01/2017 with dysphagia-peg tube inserted and now out, has residual weakness lt arm/leg and some lt facial droop, chronic kidney disease stage III, BPH, Uti, ROSA has Cpap but does not tolerate it no longer using it, gastric ulcer, past hxR foot 3rd toe osteomylitis, arthritis multiple joints, past gastric ulcer, past hx shingels. Loop recorder removed 12/30/21.dementia History of Any Multi-Drug Resistant Organisms: None Reported Past Surgical History: Hernia Repair, Joint Replacement Additional Past Surgical History / Comment(s): 06/01/17 intracranial angioplasty- (pt stated "he has stents') HFH, EGD with peg tube insertion since removed, R inguinal hernia repair, R total knee arthroplasty, colonoscopies with last one in 2019-normal., soniya eye cat sx, loop recorder since removed. Past Anesthesia/Blood Transfusion Reactions: No Reported Reaction Past Psychological History: No Psychological Hx Reported Smoking Status: Former smoker Past Alcohol Use History: None Reported Past Drug Use History: None Reported - Past Family History Mother Family Medical History: CVA/TIA, Diabetes Mellitus, Hyperlipidemia, Hypertension Father Family Medical History: CVA/TIA, Hypertension Medications and Allergies Home Medications Medication Instructions Recorded Confirmed Type Atorvastatin [Lipitor] 80 mg PO HS 05/26/17 12/29/24 History Aspirin EC [Ecotrin Low Dose] 81 mg PO DAILY 02/12/18 12/29/24 History calcitrioL 0.25 mcg PO DIRECTED 10/07/18 12/29/24 History Clopidogrel [Plavix] 75 mg PO DAILY 12/08/19 12/29/24 History Melatonin [Melatonin Tr] 10 mg PO HS 07/24/22 12/29/24 History Magnesium Oxide [Mag-Ox] 400 mg PO DAILY #14 tablet 07/08/24 12/29/24 Rx Cetirizine HCl [Zyrtec] 10 mg PO HS 10/17/24 12/29/24 History Cholecalciferol (Vitamin D3) 50 mcg PO DAILY 10/17/24 12/29/24 History [Vitamin D3 (50 Mcg = 2000 Iu)] Memantine [Namenda] 10 mg PO BID 10/17/24 12/29/24 History Pantoprazole [Protonix] 40 mg PO BID 10/17/24 12/29/24 History Sertraline [Zoloft] 100 mg PO HS 10/17/24 12/29/24 History Albuterol Sulfate [Albuterol 2 puff PO RT-Q4H PRN 12/29/24 12/29/24 History Sulfate Hfa] amLODIPine [Norvasc] 10 mg PO DAILY 12/29/24 12/29/24 History Allergies Allergy/AdvReac Type Severity Reaction Status Date / Time No Known Allergies Allergy Verified 12/29/24 10:43 Physical Exam Vitals: Vital Signs Temp Pulse Resp BP Pulse Ox 12/29/24 08:18 67 16 132/77 95 12/29/24 05:08 98.7 F 70 15 130/75 93 L 12/29/24 02:40 71 16 138/74 91 L 12/29/24 01:02 71 18 136/73 93 L 12/28/24 23:23 77 19 156/84 93 L 12/28/24 21:29 75 19 135/91 96 12/28/24 17:44 98.6 F 82 20 145/72 95 12/28/24 17:12 79 22 135/82 93 L 12/28/24 15:31 100.2 F H 92 26 H 127/78 96 Intake and Output 12/28/24 12/29/24 12/29/24 22:59 06:59 14:59 Other: Weight 72.575 kg Results CBC & Chem 7: 12/29/24 08:26 12/29/24 08:26 Labs: Abnormal Lab Results - Last 24 Hours (Table) 12/28/24 12/28/24 12/28/24 Range/Units 16:00 16:00 19:51 WBC 14.9 H (3.8-10.6) k/uL RBC 3.98 L (4.30-5.90) m/uL Hgb 11.7 L (13.0-17.5) gm/dL Hct 38.3 L (39.0-53.0) % MCHC 30.6 L (31.0-37.0) g/dL RDW 17.0 H (11.5-15.5) % Neutrophils # 12.9 H (1.3-7.7) k/uL Potassium (3.5-5.1) mmol/L BUN 27 H (9-20) mg/dL Creatinine 1.81 H (0.66-1.25) mg/dL Glucose 176 H (74-99) mg/dL Total Protein (6.3-8.2) g/dL Albumin (3.5-5.0) g/dL Urine Protein 1+ H (Negative) Urine Glucose (UA) Trace H (Negative) Urine Ketones Trace H (Negative) Urine Blood Moderate H (Negative) Urine Bilirubin 1+ H (Negative) Ur Leukocyte Esterase Small H (Negative) Urine RBC 56 H (0-5) /hpf Urine WBC 15 H (0-5) /hpf Urine Bacteria Rare H (None) /hpf Hyaline Casts 38 H (0-2) /lpf Urine Mucus Few H (None) /hpf 12/29/24 12/29/24 Range/Units 08:26 08:26 WBC (3.8-10.6) k/uL RBC 3.35 L (4.30-5.90) m/uL Hgb 10.1 L (13.0-17.5) gm/dL Hct 32.5 L (39.0-53.0) % MCHC (31.0-37.0) g/dL RDW 17.3 H (11.5-15.5) % Neutrophils # (1.3-7.7) k/uL Potassium 3.4 L (3.5-5.1) mmol/L BUN 26 H (9-20) mg/dL Creatinine 1.67 H (0.66-1.25) mg/dL Glucose 106 H (74-99) mg/dL Total Protein 5.7 L (6.3-8.2) g/dL Albumin 3.1 L (3.5-5.0) g/dL Urine Protein (Negative) Urine Glucose (UA) (Negative) Urine Ketones (Negative) Urine Blood (Negative) Urine Bilirubin (Negative) Ur Leukocyte Esterase (Negative) Urine RBC (0-5) /hpf Urine WBC (0-5) /hpf Urine Bacteria (None) /hpf Hyaline Casts (0-2) /lpf Urine Mucus (None) /hpf
[2024-12-29] MEDS ORDERED: LOPERAMIDE 2 MG CAP PO PRN (12:43)
[2024-12-29] MEDS: POTASSIUM CHLORIDE ER 20 MEQ TAB.ER PO STA (13:43)
[2024-12-29] MEDS: LOPERAMIDE 2 MG CAP PO STA (15:53)
[2024-12-29] MEDS: PANTOPRAZOLE 40 MG TABLET PO SCH (16:50)
[2024-12-29] MEDS: HEPARIN SODIUM,PORCINE 5,000 UNIT/ML 1 ML VIAL SQ SCH (16:51)
[2024-12-29] MEDS ORDERED: PANTOPRAZOLE 40 MG TABLET PO SCH (21:00)
[2024-12-29] MEDS: ATORVASTATIN 80 MG TAB PO SCH (21:58)
[2024-12-29] MEDS: MEMANTINE 10 MG TAB PO SCH (21:58)
[2024-12-29] MEDS: MELATONIN 5 MG TABLET PO SCH (21:58)
[2024-12-29] MEDS: SERTRALINE 100 MG TAB PO SCH (21:58)
[2024-12-30] MEDS: amLODIPine 5 MG TAB PO SCH (09:07)
[2024-12-30] MEDS: ASPIRIN 81 MG PO SCH (09:07)
[2024-12-30] MEDS: CLOPIDOGREL 75 MG TAB PO SCH (09:07)
[2024-12-30 11:15] LABS: African American GFR (CKD) 56 (>60 ml/min/1.73 sqM); Anion Gap 6 mmol/L; Blood Urea Nitrogen 20 mg/dL (9-20); Calcium 8.4 mg/dL (8.4-10.2); Carbon Dioxide 27 mmol/L (22-30); Chloride 104 mmol/L (98-107); Glucose 212 mg/dL (74-99); Non-African American GFR(CKD) 49 (>60 ml/min/1.73 sqM); Potassium 3.2 mmol/L (3.5-5.1); Sodium 137 mmol/L (137-145)
[2024-12-30] MEDS ORDERED: Potassium Replacement Protocol 1 EACH MISC MISCELLANE PRN (12:23)
[2024-12-30] MEDS: POTASSIUM CHLORIDE ER 20 MEQ TAB.ER PO SCH (12:39)
--- NOTE | 2024-12-31 06:39 | P.PN ---
Subjective Progress Note Date: 12/30/24 Patient was on-year-old male came with complaints of nausea vomiting diarrhea patient denied any significant abdominal pain. Patient appeared to be in acute renal failure with creatinine going up to 1.8 baseline around 1.4. Patient had a low-grade fever of 100.2 when questioned about dysuria patient did have dysuria but urine is not significantly abnormal did have some l leukocytes in the urine and leukocyte esterase is positive. Patient was given a dose of Rocephin in ER. 12/30/2024 Patient is seen in follow-up today with no acute overnight issues noted. Patient reports he feels better today although significantly weak. Some electrolyte abnormalities including a potassium of 3.1 and will replace per protocol. Patient was able to work with physical therapy recommending rehab and patient is agreeable. Will discuss with case management regarding discharge planning. Patient is afebrile currently with no reports of chest pain or shortness of breath. Review of systems: Constitutional: No reports of fatigue, fever, or chills Cardiovascular: No reports of chest pain or palpitations Respiratory: No reports of shortness of breath or cough GI: No reports of nausea, vomiting, or diarrhea : No reports of dysuria or retention Neurovascular: reports of weakness and gait dysfunction PHYSICAL EXAMINATION: GENERAL: The patient is alert and oriented x3, not in any acute distress. Well developed, elderly appearing, thin built HEENT: Pupils are round and equally reacting to light. EOMI. No scleral icterus. No conjunctival pallor. Normocephalic, atraumatic. No pharyngeal erythema. No thyromegaly. CARDIOVASCULAR: S1 and S2 muffled PULMONARY: Diminished breath sounds bilaterally otherwise chest is clear to auscultation, no wheezing or crackles. ABDOMEN: Soft, nontender, nondistended, normoactive bowel sounds. No palpable organomegaly. MUSCULOSKELETAL: No joint swelling or deformity. EXTREMITIES: No cyanosis, clubbing, or pedal edema. NEUROLOGICAL: Gross neurological examination did not reveal any focal deficits. Diffusely weak SKIN: No rashes. Assessment and plan: -Sepsis possibility of UTI cannot be ruled out patient will be started on Rocephin, pending cultures -Acute renal failure on chronic kidney disease stage III, continue with IV fluids at 75 cc/h -Nausea vomiting diarrhea probably can be secondary to UTI will be started on Rocephin as mentioned above, C. difficile ordered and pending. Patient is requesting Imodium will rule out C. difficile before will give him Imodium -PE without any acute exacerbation -Generalized deconditioning, PT and OT recommending rehab and patient is agreeable -Hyperlipidemia -Hypertension -Sleep apnea uses CPAP machine at home -Hypertension on amlodipine which is being held because of hypotension which may be related to UTI DVT prophylaxis: Subcutaneous heparin The impression and plan of care has been dictated by Hoa Mc, Nurse Practitioner as directed. Dr. Shira MD I have performed a history and examination and MDM of this patient, discussed the same with the dictator, and agree with the dictator's assessment and plan as written ,documented as a scribe. Based on total visit time, I have performed more than 50% of the visit. Objective - Vital Signs Vital signs: Vital Signs Temp 99.0 F 12/30/24 07:00 Pulse 68 12/30/24 07:00 Resp 16 12/30/24 07:00 BP 163/91 12/30/24 07:00 Pulse Ox 94 L 12/30/24 07:00 FiO2 Intake & Output 12/29/24 12/30/24 12/30/24 18:59 06:59 18:59 Intake Total 300 Balance 300 Intake: Oral 300 Other: Voiding Method Diaper Diaper Incontinent Incontinent # Voids 3 - Labs CBC & Chem 7: 12/29/24 08:26 12/30/24 09:55 Labs: Microbiology - Last 24 Hours (Table) 12/28/24 19:51 Urine Culture - Final Urine,Voided 12/28/24 16:00 Blood Culture - Preliminary Blood
[2024-12-31 07:46] LABS: Anisocytosis Slight; Basophils % (A) 0 %; Eosinophils # (A) 0.3 k/uL (0-0.7); Eosinophils % (A) 5 %; HCT 35.1 % (39.0-53.0); HGB 10.9 gm/dL (13.0-17.5); Lymphocytes # (A) 1.7 k/uL (1.0-4.8); Lymphocytes % (A) 27 %; MCHC 31.1 g/dL (31.0-37.0); MCV 96.7 fL (80.0-100.0); Mean Platelet Volume 7.8; Monocytes # (A) 0.3 k/uL (0-1.0); Monocytes % (A) 5 %; Neutrophils # (A) 3.8 k/uL (1.3-7.7); Neutrophils % (A) 61 %; Platelet Count 232 k/uL (150-450); RBC 3.63 m/uL (4.30-5.90); RDW 17.2 % (11.5-15.5); WBC 6.3 k/uL (3.8-10.6)
[2024-12-31 07:58] LABS: African American GFR (CKD) 72 (>60 ml/min/1.73 sqM); Anion Gap 7 mmol/L; Blood Urea Nitrogen 15 mg/dL (9-20); Calcium 8.5 mg/dL (8.4-10.2); Carbon Dioxide 25 mmol/L (22-30); Chloride 103 mmol/L (98-107); Glucose 122 mg/dL (74-99); Magnesium 1.6 mg/dL (1.6-2.3); Non-African American GFR(CKD) 62 (>60 ml/min/1.73 sqM); Potassium 3.6 mmol/L (3.5-5.1); Sodium 135 mmol/L (137-145)
--- NOTE | 2025-01-01 03:47 | P.PN ---
Subjective Progress Note Date: 12/31/24 Patient was on-year-old male came with complaints of nausea vomiting diarrhea patient denied any significant abdominal pain. Patient appeared to be in acute renal failure with creatinine going up to 1.8 baseline around 1.4. Patient had a low-grade fever of 100.2 when questioned about dysuria patient did have dysuria but urine is not significantly abnormal did have some l leukocytes in the urine and leukocyte esterase is positive. Patient was given a dose of Rocephin in ER. 12/30/2024 Patient is seen in follow-up today with no acute overnight issues noted. Patient reports he feels better today although significantly weak. Some electrolyte abnormalities including a potassium of 3.1 and will replace per protocol. Patient was able to work with physical therapy recommending rehab and patient is agreeable. Will discuss with case management regarding discharge planning. Patient is afebrile currently with no reports of chest pain or shortness of breath. 12/31/2024 Patient is seen in follow-up today reports to feeling improved although continues with significant weakness. Patient and family are agreeable to rehab and would like to go to [facility]. Case management is following working on d ischarge planning. Kidney functions improving and creatinine is 1.15. Patient maintained on gentle hydration although will discontinue as patient is eating and drinking and tolerating. Encourage sitting up in the chair more frequently and increased activity as tolerated. Will continue ceftriaxone for now for urinary tract infection. Urine and blood cultures are negative. Review of systems: Constitutional: No reports of fatigue, fever, or chills Cardiovascular: No reports of chest pain or palpitations Respiratory: No reports of shortness of breath or cough GI: No reports of nausea, vomiting, or diarrhea : No reports of dysuria or retention Neurovascular: reports of weakness and gait dysfunction PHYSICAL EXAMINATION: GENERAL: The patient is alert and oriented x2, baseline. Well developed, elderly appearing, thin built HEENT: Pupils are round and equally reacting to light. EOMI. No scleral icterus. No conjunctival pallor. Normocephalic, atraumatic. No pharyngeal erythema. No thyromegaly. CARDIOVASCULAR: S1 and S2 muffled PULMONARY: Diminished breath sounds bilaterally otherwise chest is clear to auscultation, no wheezing or crackles. ABDOMEN: Soft, nontender, mildly distended, normoactive bowel sounds. No palpable organomegaly. MUSCULOSKELETAL: No joint swelling or deformity. EXTREMITIES: No cyanosis, clubbing, or pedal edema. NEUROLOGICAL: Gross neurological examination did not reveal any focal deficits. Diffusely weak SKIN: No rashes. Assessment and plan: -Acute urinary tract infection, present on admission with sepsis, urine cultures are negative -Acute renal failure on chronic kidney disease stage III, improved with IV fluids -Nausea vomiting diarrhea likely secondary to UTI, improving and tolerating diet, no further reports of diarrhea, C. difficile unlikely -History of COPD without any acute exacerbation -Generalized deconditioning and weakness with gait dysfunction, PT/OT therapy evaluated the patient recommending rehab and patient is agreeable -Hyperlipidemia -Hypertension -Sleep apnea uses CPAP machine at home -Hypertension, on Norvasc and will resume GI prophylaxis DVT prophylaxis: Subcutaneous heparin Full code Plan: Patient was maintained on gentle hydration and kidney functions improved. Potassium was replaced and improved and magnesium 1.6 will follow-up with repeat labs in a.m. Patient is eating and drinking and tolerating and will discontinue IV fluids Patient was continued on ceftriaxone and will continue during hospitalization. Urine cultures are negative and blood cultures negative thus far and will not require antibiotics on discharge. Patient had received adequate antibiotics during hospitalization PT/OT therapy evaluated the patient recommending rehab and patient is agreeable. Plan is for [facility] with case management following. Will discuss with case management if patient requires insurance authorization and/or 3 night hospitalization according to Medicare guidelines. Possible discharge planning in the next 24 to 48 hours to [facility] The impression and plan of care has been dictated by Hoa Mc, Nurse Practitioner as directed. Dr. Shira MD I have performed a history and examination and MDM of this patient, discussed the same with the dictator, and agree with the dictator's assessment and plan as written ,documented as a scribe. Based on total visit time, I have performed more than 50% of the visit. Objective - Vital Signs Vital signs: Vital Signs Temp 98.5 F 12/31/24 07:00 Pulse 61 12/31/24 07:00 Resp 17 12/31/24 07:00 BP 161/85 12/31/24 07:00 Pulse Ox 95 12/31/24 07:00 FiO2 Intake & Output 12/30/24 12/31/24 12/31/24 18:59 06:59 18:59 Intake Total 118 Output Total 1200 Balance -1200 118 Weight 72.575 kg Intake: Oral 118 Output: Urine 1200 Other: Voiding Method Diaper Incontinent Incontinent External Catheter # Voids 1 - Labs CBC & Chem 7: 12/31/24 07:07 12/31/24 07:07 Labs: Abnormal Lab Results - Last 24 Hours (Table) 12/30/24 12/31/24 12/31/24 Range/Units 09:55 07:07 07:07 RBC 3.63 L (4.30-5.90) m/uL Hgb 10.9 L (13.0-17.5) gm/dL Hct 35.1 L (39.0-53.0) % RDW 17.2 H (11.5-15.5) % Sodium 135 L (137-145) mmol/L Potassium 3.2 L (3.5-5.1) mmol/L Creatinine 1.42 H (0.66-1.25) mg/dL Glucose 212 H 122 H (74-99) mg/dL Microbiology - Last 24 Hours (Table) 12/28/24 16:00 Blood Culture - Preliminary Blood 12/28/24 19:51 Urine Culture - Final Urine,Voided
[2025-01-01 07:54] LABS: African American GFR (CKD) 69 (>60 ml/min/1.73 sqM); Anion Gap 11 mmol/L; Blood Urea Nitrogen 12 mg/dL (9-20); Calcium 8.8 mg/dL (8.4-10.2); Carbon Dioxide 23 mmol/L (22-30); Chloride 102 mmol/L (98-107); Glucose 124 mg/dL (74-99); Magnesium 1.6 mg/dL (1.6-2.3); Non-African American GFR(CKD) 60 (>60 ml/min/1.73 sqM); Potassium 3.7 mmol/L (3.5-5.1); Sodium 136 mmol/L (137-145)
[2025-01-01 08:03] VITALS: RESP 19
[2025-01-01] MEDS: amLODIPine 10 MG TAB PO SCH (09:03)
[2025-01-01] MEDS: SENNOSIDES 8.6 MG TAB PO SCH (09:03)
[2025-01-01] MEDS ORDERED: Magnesium Replacement Protocol 1 EACH MISC MISCELLANE PRN (09:04)
[2025-01-01] MEDS: MAGNESIUM SULFATE-D5W PMX 1 GM in DEXTROSE/WATER 1 100ML.BAG IVPB SCH (10:55)
--- NOTE | 2025-01-01 11:23 | P.DS ---
Providers Date of admission: 12/29/24 22:52 Attending physician: Miguel Church Primary care physician: Rick Luke Hospital Course: Final Diagnosis -Acute urinary tract infection, present on admission with sepsis, urine cultures are negative -Acute renal failure on chronic kidney disease stage III, improved with IV fluids -Nausea vomiting diarrhea likely secondary to UTI, improving and tolerating diet, no further reports of diarrhea, C. difficile unlikely -History of COPD without any acute exacerbation -Generalized deconditioning and weakness with gait dysfunction, PT/OT therapy evaluated the patient recommending rehab and patient is agreeable -Hyperlipidemia -Hypertension -Sleep apnea uses CPAP machine at home -Hypertension, on Norvasc and will resume Discharge Disposition Patient stable for discharge to [facility] and he will not require any further a ntibiotics on discharge. Continue supportive care with imodium. Diarrhea improved. Repeat Blood work on discharge 3 to 4 days. Follow up with Dr Luke. Hospital Course This is a 74-year-old male with medical history significant for COPD, weakness, hyperlipidemia, hypertension, sleep apnea with CPAP use patient comes into the hospital with nausea vomiting diarrhea and abdominal pain he was found to be in acute renal failure with a creatinine of 1.8 his baseline is 1.4. He also had a low-grade temp of 100.2. He did not report any dysuria but he did have some elevated white blood cell count. He was started empirically on IV ceftriaxone. His urine culture was found to be negative. Patient has had significant weakness and was recommended to go to subacute rehab by physical therapy. His creatinine is currently down to 1.15 and he is eating and drinking well. Patient had negative blood cultures as well. He will be able to discharge to [facility] today. Please see medication reconciliation for a list of current medications. Thank you for allowing us to participate in the care of this patient. The impression and plan of care has been dictated by Teresa Nicole, Nurse Practitioner as directed. Dr. Shira MD I have performed a history and physical examination and medical decision making of this patient, discussed the same with the dictator, and agree with the dictators assessment and plan as written, documented as a scribe. Based on total visit time, I have performed more than 50% of this visit. Patient Condition at Discharge: Fair Plan - Discharge Summary Discharge Rx Participant: No New Discharge Prescriptions: New Heparin Sodium,Porcine (1 ml) [Heparin Sodium] 5,000 unit SQ Q8HR each Loperamide [Imodium] 2 mg PO BID PRN cap PRN Reason: Diarrhea Sennosides [Senokot] 8.6 mg PO BID tab Acetaminophen Tab [Tylenol] 650 mg PO Q6HR PRN tab PRN Reason: Mild Pain Or Fever > 100.5 Albuterol Nebulized [Ventolin Nebulized] 2.5 mg INHALATION RT-Q4H PRN ml PRN Reason: Shortness Of Breath Continue Atorvastatin [Lipitor] 80 mg PO HS Aspirin EC [Ecotrin Low Dose] 81 mg PO DAILY calcitrioL 0.25 mcg PO DIRECTED Clopidogrel [Plavix] 75 mg PO DAILY Magnesium Oxide [Mag-Ox] 400 mg PO DAILY #14 tablet Sertraline [Zoloft] 100 mg PO HS amLODIPine [Norvasc] 10 mg PO DAILY Melatonin [Melatonin Tr] 10 mg PO HS Memantine [Namenda] 10 mg PO BID Pantoprazole [Protonix] 40 mg PO BID Cetirizine HCl [Zyrtec] 10 mg PO HS Cholecalciferol (Vitamin D3) [Vitamin D3 (50 Mcg = 2000 Iu)] 50 mcg PO DAILY Albuterol Sulfate [Albuterol Sulfate Hfa] 2 puff PO RT-Q4H PRN PRN Reason: Shortness Of Breath Discharge Medication List Atorvastatin [Lipitor] 80 mg PO HS 05/26/17 [History] Aspirin EC [Ecotrin Low Dose] 81 mg PO DAILY 02/12/18 [History] calcitrioL 0.25 mcg PO DIRECTED 10/07/18 [History] Clopidogrel [Plavix] 75 mg PO DAILY 12/08/19 [History] Melatonin [Melatonin Tr] 10 mg PO HS 07/24/22 [History] Magnesium Oxide [Mag-Ox] 400 mg PO DAILY #14 tablet 07/08/24 [Rx] Cetirizine HCl [Zyrtec] 10 mg PO HS 10/17/24 [History] Cholecalciferol (Vitamin D3) [Vitamin D3 (50 Mcg = 2000 Iu)] 50 mcg PO DAILY 10/17/24 [History] Memantine [Namenda] 10 mg PO BID 10/17/24 [History] Pantoprazole [Protonix] 40 mg PO BID 10/17/24 [History] Sertraline [Zoloft] 100 mg PO HS 10/17/24 [History] Albuterol Sulfate [Albuterol Sulfate Hfa] 2 puff PO RT-Q4H PRN 12/29/24 [History ] amLODIPine [Norvasc] 10 mg PO DAILY 12/29/24 [History] Acetaminophen Tab [Tylenol] 650 mg PO Q6HR PRN tab 01/01/25 [Rx] Albuterol Nebulized [Ventolin Nebulized] 2.5 mg INHALATION RT-Q4H PRN ml 04/22 [Rx] Heparin Sodium,Porcine (1 ml) [Heparin Sodium] 5,000 unit SQ Q8HR each 01/01/25 [Rx] Loperamide [Imodium] 2 mg PO BID PRN cap 01/01/25 [Rx] Sennosides [Senokot] 8.6 mg PO BID tab 01/01/25 [Rx] Follow up Appointment(s)/Referral(s): Rick Luke MD [Primary Care Provider] - 1-[address] [facility] [employer], [NON-STAFF] - As Needed Ambulatory/Diagnostic Orders: Complete Blood Count w/diff [LAB.AMB] Time Frame: 3 Days, Location: None Selected Activity/Diet/Wound Care/Special Instructions: Patient is going to [facility] on [employer] Activity as tolerated Recommend repeat labs of CBC, BMP, magnesium in 2 to 3 days Continue current medications Continue bowel regimen Discharge Disposition: TRANSFER TO SNF/ECF
[2025-01-01 13:57] VITALS: BP 143/77; PULSE 64; TEMP 98.5
== END 2025-01-01 15:00 | DRG 872 ==
LOC: EC 15:22 → 6NMEDSUR 22:22 → 1SOBS 12-29 15:34 → OBSVTOIN 12-29 22:52
PROVIDERS: ADMIT Hospitalist; ATTEND Hospitalist
DX: A41.9 Sepsis, unspecified organism (principal); I69.954 Hemiplegia and hemiparesis following unspecified cerebrovascular disease affecting left non-dominant side; N18.30 Chronic kidney disease, stage 3 unspecified; F03.90 Unspecified dementia, unspecified severity, without behavioral disturbance, psychotic disturbance, mood disturbance, and anxiety; J44.9 Chronic obstructive pulmonary disease, unspecified; I12.9 Hypertensive chronic kidney disease with stage 1 through stage 4 chronic kidney disease, or unspecified chronic kidney disease; N17.9 Acute kidney failure, unspecified; N39.0 Urinary tract infection, site not specified; R65.20 Severe sepsis without septic shock; E78.5 Hyperlipidemia, unspecified; E86.0 Dehydration; G47.30 Sleep apnea, unspecified; R53.81 Other malaise; N40.0 Benign prostatic hyperplasia without lower urinary tract symptoms; Z96.651 Presence of right artificial knee joint; Z79.02 Long term (current) use of antithrombotics/antiplatelets; Z79.82 Long term (current) use of aspirin; Z79.899 Other long term (current) drug therapy; I69.992 Facial weakness following unspecified cerebrovascular disease; Z87.891 Personal history of nicotine dependence
CPT/HCPCS: 36415; 70450; 71046; 74176; 80048; 80053; 81001; 82150; 83690; 83735; 85025; 87040; 87086; 87636; 96361; 96365; 96366; 96372; 96375; 99285

== ENCOUNTER 2025-05-04 20:26 | Emergency (ER) | payer MEDICARE, OTHER ==
[2025-05-04 20:30] VITALS: TEMP 98
--- NOTE | 2025-05-04 21:07 | ED ---
Nausea/Vomiting/Diarrhea HPI - General Chief complaint: Nausea/Vomiting/Diarrhea Stated complaint: Vomiting Blood,Constipation Time Seen by Provider: 05/04/25 20:31 Source: patient, RN notes reviewed, old records reviewed Mode of arrival: wheelchair Limitations: no limitations - History of Present Illness Initial comments: This is a 74-year-old male this male presents today for evaluation regards to abdominal pain with nausea and vomiting. Patient is on multiple close of nausea and vomiting today with most recently being just prior to arrival. No fevers. Patient recently camping outside in the heat for extended periods of time is feeling overall weak. Patient has no chest pain or shortness of breath denies any fevers no diarrhea MD complaint: nausea, vomiting -: hour(s) Location: diffuse Severity: moderate Severity scale (1-10): 6 Quality: aching Consistency: constant Improves with: none Worsens with: none Associated Symptoms: loss of appetite, malaise, nausea/vomiting, weakness - Related Data Home Medications Medication Instructions Recorded Confirmed Atorvastatin [Lipitor] 80 mg PO HS 05/26/17 12/29/24 Aspirin EC [Ecotrin Low Dose] 81 mg PO DAILY 02/12/18 12/29/24 calcitrioL 0.25 mcg PO DIRECTED 10/07/18 12/29/24 Clopidogrel [Plavix] 75 mg PO DAILY 12/08/19 12/29/24 Melatonin [Melatonin Tr] 10 mg PO HS 07/24/22 12/29/24 Cetirizine HCl [Zyrtec] 10 mg PO HS 10/17/24 12/29/24 Cholecalciferol (Vitamin D3) 50 mcg PO DAILY 10/17/24 12/29/24 [Vitamin D3 (50 Mcg = 2000 Iu)] Memantine [Namenda] 10 mg PO BID 10/17/24 12/29/24 Pantoprazole [Protonix] 40 mg PO BID 10/17/24 12/29/24 Sertraline [Zoloft] 100 mg PO HS 10/17/24 12/29/24 Albuterol Sulfate [Albuterol 2 puff PO RT-Q4H PRN 12/29/24 12/29/24 Sulfate Hfa] amLODIPine [Norvasc] 10 mg PO DAILY 12/29/24 12/29/24 Previous Rx's Medication Instructions Recorded Magnesium Oxide [Mag-Ox] 400 mg PO DAILY #14 tablet 07/08/24 Acetaminophen Tab [Tylenol] 650 mg PO Q6HR PRN tab 01/01/25 Albuterol Nebulized [Ventolin 2.5 mg INHALATION RT-Q4H PRN ml 01/01/25 Nebulized] Heparin Sodium,Porcine (1 ml) 5,000 unit SQ Q8HR each 01/01/25 [Heparin Sodium] Loperamide [Imodium] 2 mg PO BID PRN cap 01/01/25 Sennosides [Senokot] 8.6 mg PO BID tab 01/01/25 Allergies Allergy/AdvReac Type Severity Reaction Status Date / Time No Known Allergies Allergy Verified 05/04/25 20:30 Review of Systems ROS Statement: Those systems with pertinent positive or pertinent negative responses have been documented in the HPI. ROS Other: All systems not noted in ROS Statement are negative. Past Medical History Past Medical History: COPD, CVA/TIA, Eye Disorder, GERD/Reflux, Hyperlipidemia, Hypertension, Osteoarthritis (OA), Prostate Disorder, Renal Disease, Sleep Apnea/CPAP/BIPAP, Syncope Additional Past Medical History / Comment(s): Multiple TIAs, CVA 01/2017 with dysphagia-peg tube inserted and now out, has residual weakness lt arm/leg and some lt facial droop, chronic kidney disease stage III, BPH, Uti, ROSA has Cpap but does not tolerate it no longer using it, gastric ulcer, past hx R foot 3rd toe osteomylitis, arthritis multiple joints, past hx shingels, Loop recorder removed 12/30/21, dementia, fall History of Any Multi-Drug Resistant Organisms: None Reported Past Surgical History: Hernia Repair, Joint Replacement Additional Past Surgical History / Comment(s): 06/01/17 intracranial angioplasty- (pt stated "he has stents') HFH, EGD with peg tube insertion since removed, R inguinal hernia repair, R total knee arthroplasty, colonoscopies with last one in 2019-normal., soniya eye cat sx, loop recorder since removed. Past Anesthesia/Blood Transfusion Reactions: No Reported Reaction Past Psychological History: No Psychological Hx Reported Smoking Status: Former smoker Past Alcohol Use History: None Reported Past Drug Use History: None Reported - Past Family History Mother Family Medical History: CVA/TIA, Diabetes Mellitus, Hyperlipidemia, Hypertension Father Family Medical History: CVA/TIA, Hypertension General Exam Limitations: no limitations General appearance: alert, in no apparent distress Head exam: Present: atraumatic, normocephalic, normal inspection Eye exam: Present: normal appearance, PERRL, EOMI. Absent: scleral icterus, con junctival injection, periorbital swelling ENT exam: Present: normal exam, mucous membranes moist Neck exam: Present: normal inspection. Absent: tenderness, meningismus, lymphadenopathy Respiratory exam: Present: normal lung sounds bilaterally. Absent: respiratory distress, wheezes, rales, rhonchi, stridor Cardiovascular Exam: Present: regular rate, normal rhythm, normal heart sounds. Absent: systolic murmur, diastolic murmur, rubs, gallop, clicks GI/Abdominal exam: Present: soft, normal bowel sounds. Absent: distended, tenderness, guarding, rebound, rigid Extremities exam: Present: normal inspection, full ROM, normal capillary refill. Absent: tenderness, pedal edema, joint swelling, calf tenderness Back exam: Present: normal inspection Neurological exam: Present: alert, oriented X3, CN II-XII intact Psychiatric exam: Present: normal affect, normal mood Skin exam: Present: warm, dry, intact, normal color. Absent: rash Course Vital Signs 05/04/25 05/04/25 20:28 21:18 Temperature 98 F Pulse Rate 76 76 Respiratory 16 18 Rate Blood Pressure 134/87 153/91 O2 Sat by Pulse 98 96 Oximetry - Reevaluation(s) Reevaluation #1: 05/04/25 21:58 Medical records reviewed Reevaluation #2: 05/04/25 21:59 Patient symptoms improved Reevaluation #3: 05/04/25 23:53 Patient phone results questions answered Reevaluation #4: Was pt. sent in by a medical professional or institution (, PA, COMMUNICABLE DISEASE SPECIALIST, urgent care, hospital, or penitentiary...) When possible be specific @ -no Did you speak to anyone other than the patient for history (EMS, parent, family, police, friend...)? What history was obtained from this source @ -no Did you review nursing and triage notes (agree or disagree)? Why? @ -agree Are old charts reviewed (outside hosp., previous admission, EMS record, old EKG, old radiological studies, urgent care reports/EKG's, penitentiary records)? Report findings @ -yes Differential Diagnosis (chest pain, altered mental status, abdominal pain women, abdominal pain men, vaginal bleeding, weakness, fever, dyspnea, syncope, headache, dizziness, GI bleed, back pain, seizure, CVA, palpatations, mental health, musculoskeletal)? @ -prior EKG interpreted by me (3pts min.). @ -yes X-rays interpreted by me (1pt min.). @ -yes negative for acute disease CT interpreted by me (1pt min.). @ -no U/S interpreted by me (1pt. min.). @ -no What testing was considered but not performed or refused? (CT, X-rays, U/S, labs)? Why? @ -none What meds were considered but not given or refused? Why? @ -none Did you discuss the management of the patient with other professionals (professionals i.e. , PA, COMMUNICABLE DISEASE SPECIALIST, lab, RT, psych nurse, medical social worker, senior environmental consultant, teacher, facilities officer, classification case manager)? Give summary @ -no Was smoking cessation discussed for >3mins.? @ -no Was critical care preformed (if so, how long)? @ -no Were there social determinants of health that impacted care today? How? (Homelessness, low income, unemployed, alcoholism, drug addiction, transportation, low edu. Level, literacy, decrease access to med. care, retirement, rehab)? @ -none Was there de-escalation of care discussed even if they declined (Discuss DNR or withdrawal of care, Hospice)? DNR status @ -no What co-morbidities impacted this encounter? (DM, HTN, Smoking, COPD, CAD, Cancer, CVA, ARF, Chemo, Hep., AIDS, mental health diagnosis, sleep apnea, morbid obesity)? @ -none Was patient admitted / discharged? Hospital course, mention meds given and route, prescriptions, significant lab abnormalities, going to OR and other pertinent info. @ - Undiagnosed new problem with uncertain prognosis? @ -no Drug Therapy requiring intensive monitoring for toxicity (Heparin, Nitro, Insulin, Cardizem)? @ -no Were any procedures done? @ -no Diagnosis/symptom? @ - Acute, or Chronic, or Acute on Chronic? @ -Acute Uncomplicated (without systemic symptoms) or Complicated (systemic symptoms)? @ -Complicated Side effects of treatment? @ -no Exacerbation, Progression, or Severe Exacerbation? @ -exacerbation Poses a threat to life or bodily function? How? (Chest pain, USA, HI, pneumonia, PE, COPD, DKA, ARF, appy, cholecystitis, CVA, Diverticulitis, Homicidal, Suicid al, threat to staff... and all critical care pts) @ -yes Reevaluation #5: Differential Abdominal Pain Men: Appendicitis, cholecystitis, diverticulosis, ischemic bowel, pancreatitis, hepatitis, UTI, gastroenteritis, AAA, incarcerated hernia, bowel obstruction, constipation, inflammatory bowel, hepatitis, peptic ulcer disease, splenic infarction, perforated viscus, testicular torsion, this is not meant to be an all-inclusive list Medical Decision Making - Medical Decision Making 74 to the ER for abdominal pain constipation nausea vomiting. No acute significant findings here in the ER patient can be discharged home - Lab Data Result diagrams: 05/04/25 20:48 05/04/25 21:10 Lab Results 05/04/25 05/04/25 05/04/25 Range/Units 20:48 21:10 21:10 WBC 8.48 (4.50-10.00) 10*3/uL RBC 4.15 L (4.40-5.60) 10*6/uL Hgb 12.9 L (13.0-17.0) g/dL Hct 38.5 L (39.6-50.0) % MCV 92.8 (80.0-97.0) fL MCH 31.1 (27.0-32.0) pg MCHC 33.5 (32.0-37.0) g/dL Plt Count 269 (140-440) 10*3/uL MPV 9.7 (9.5-12.2) fL Immature Gran % (Auto) 0.4 % Neutrophils % 65.0 % Lymphocytes % 23.2 % Monocytes % 8.1 % Eosinophils % 2.7 % Basophils % 0.6 % Immature Gran # 0.03 (0.00-0.04) 10*3/uL Neutrophils # 5.51 (1.80-7.70) 10*3/uL Lymphocytes # 1.97 (0.90-5.00) 10*3/uL Monocytes # 0.69 (0.20-1.00) 10*3/uL Eosinophils # 0.23 (0.04-0.35) 10*3/uL Basophils # 0.05 (0.00-0.10) 10*3/uL Sodium 139 (137-145) mmol/L Potassium 4.2 (3.5-5.1) mmol/L Chloride 101 (98-107) mmol/L Carbon Dioxide 25 (22-30) mmol/L Anion Gap 13 mmol/L BUN 25 H (9-20) mg/dL Creatinine 1.51 H (0.66-1.25) mg/dL Est GFR (CKD-EPI)AfAm 52 (>60 ml/min/1.73 sqM) Est GFR (CKD-EPI)NonAf 45 (>60 ml/min/1.73 sqM) Glucose 97 (74-99) mg/dL Plasma Lactic Acid Del 2.2 H* (0.7-2.0) mmol/L Calcium 10.1 (8.4-10.2) mg/dL Total Bilirubin 0.6 (0.2-1.3) mg/dL AST 34 (17-59) U/L ALT 26 (4-49) U/L Alkaline Phosphatase 113 (38-126) U/L Troponin I (0.000-0.034) ng/mL Total Protein 8.3 H (6.3-8.2) g/dL Albumin 4.6 (3.5-5.0) g/dL Amylase 87 (30-110) U/L Lipase 264 (23-300) U/L 05/04/25 Range/Units 21:20 WBC (4.50-10.00) 10*3/uL RBC (4.40-5.60) 10*6/uL Hgb (13.0-17.0) g/dL Hct (39.6-50.0) % MCV (80.0-97.0) fL MCH (27.0-32.0) pg MCHC (32.0-37.0) g/dL Plt Count (140-440) 10*3/uL MPV (9.5-12.2) fL Immature Gran % (Auto) % Neutrophils % % Lymphocytes % % Monocytes % % Eosinophils % % Basophils % % Immature Gran # (0.00-0.04) 10*3/uL Neutrophils # (1.80-7.70) 10*3/uL Lymphocytes # (0.90-5.00) 10*3/uL Monocytes # (0.20-1.00) 10*3/uL Eosinophils # (0.04-0.35) 10*3/uL Basophils # (0.00-0.10) 10*3/uL Sodium (137-145) mmol/L Potassium (3.5-5.1) mmol/L Chloride (98-107) mmol/L Carbon Dioxide (22-30) mmol/L Anion Gap mmol/L BUN (9-20) mg/dL Creatinine (0.66-1.25) mg/dL Est GFR (CKD-EPI)AfAm (>60 ml/min/1.73 sqM) Est GFR (CKD-EPI)NonAf (>60 ml/min/1.73 sqM) Glucose (74-99) mg/dL Plasma Lactic Acid Del (0.7-2.0) mmol/L Calcium (8.4-10.2) mg/dL Total Bilirubin (0.2-1.3) mg/dL AST (17-59) U/L ALT (4-49) U/L Alkaline Phosphatase (38-126) U/L Troponin I <0.012 (0.000-0.034) ng/mL Total Protein (6.3-8.2) g/dL Albumin (3.5-5.0) g/dL Amylase (30-110) U/L Lipase (23-300) U/L - EKG Data -: EKG Interpreted by Me (EKG is sinus 75 [place] 174 QRS 87 QTc 411) - Radiology Data Radiology results: report reviewed (CT abd pelvis is positive for aconstipation ), image reviewed Disposition Clinical Impression: Weakness, Constipation, Abdominal pain Disposition: HOME SELF-CARE Condition: Good Instructions (If sedation given, give patient instructions): Acute Nausea and Vomiting (ED) Is patient prescribed a controlled substance at d/c from ED?: No Referrals: Rick Luke MD [Primary Care Provider] - 1-2 days
[2025-05-04] MEDS: PANTOPRAZOLE 40 MG/10 ML VIAL IVP STA (21:16)
[2025-05-04] MEDS: SODIUM CHLORIDE 0.9% 1,000 ML IV ONE (21:17)
[2025-05-04] MEDS: ONDANSETRON 4 MG/2 ML VIAL IVP STA (21:17)
[2025-05-04 21:21] VITALS: RESP 18
[2025-05-04 21:28] LABS: Basophils # (A) 0.05 10*3/uL (0.00-0.10); Basophils % (A) 0.6 %; Eosinophils # (A) 0.23 10*3/uL (0.04-0.35); Eosinophils % (A) 2.7 %; HCT 38.5 % (39.6-50.0); HGB 12.9 g/dL (13.0-17.0); Lymphocytes # (A) 1.97 10*3/uL (0.90-5.00); Lymphocytes % (A) 23.2 %; MCH 31.1 pg (27.0-32.0); MCHC 33.5 g/dL (32.0-37.0); MCV 92.8 fL (80.0-97.0); Monocytes # (A) 0.69 10*3/uL (0.20-1.00); Monocytes % (A) 8.1 %; Neutrophils # (A) 5.51 10*3/uL (1.80-7.70); Neutrophils % (A) 65.0 %; Platelet Count 269 10*3/uL (140-440); RBC 4.15 10*6/uL (4.40-5.60); RDW 15.7 % (11.5-14.5); WBC 8.48 10*3/uL (4.50-10.00)
[2025-05-04 21:43] LABS: ALT 26 U/L (4-49); African American GFR (CKD) 52 (>60 ml/min/1.73 sqM); Amylase 87 U/L (30-110); Anion Gap 13 mmol/L; Blood Urea Nitrogen 25 mg/dL (9-20); Calcium 10.1 mg/dL (8.4-10.2); Carbon Dioxide 25 mmol/L (22-30); Chloride 101 mmol/L (98-107); Glucose 97 mg/dL (74-99); Lipase 264 U/L (23-300); Non-African American GFR(CKD) 45 (>60 ml/min/1.73 sqM); Sodium 139 mmol/L (137-145)
[2025-05-04 22:15] LABS: AST 34 U/L (17-59); Albumin 4.6 g/dL (3.5-5.0); Alkaline Phosphatase 113 U/L (38-126); Potassium 4.2 mmol/L (3.5-5.1); Total Protein 8.3 g/dL (6.3-8.2)
--- NOTE | 2025-05-04 23:48 | CT ---
EXAM: CT Abdomen and Pelvis With Intravenous Contrast CLINICAL HISTORY: ITS.REASON CT Reason: abdominal pain TECHNIQUE: Axial computed tomography images of the abdomen and pelvis with intravenous contrast. CTDI is 23.2 mGy and DLP is 1168.3 mGy-cm. This CT exam was performed using one or more of the following dose reduction techniques: automated exposure control, adjustment of the mA and/or kV according to patient size, and/or use of iterative reconstruction technique. COMPARISON: No relevant prior studies available. FINDINGS: Lung bases: Unremarkable. No mass. No consolidation. ABDOMEN: Liver: Unremarkable. No mass. Gallbladder and bile ducts: Unremarkable. No calcified stones. No ductal dilation. Pancreas: Unremarkable. No mass. No ductal dilation. Spleen: Unremarkable. No splenomegaly. Adrenals: Unremarkable. No mass. Kidneys and ureters: Left renal cyst measures 4.6 x 4.4 cm. No hydronephrosis. Stomach and bowel: Moderate fecal retention, correlate for constipation. Diverticulosis, without acute diverticulitis. No small bowel obstruction. No free air. PELVIS: Appendix: No findings to suggest acute appendicitis. Bladder: Unremarkable. No mass. Reproductive: Unremarkable as visualized. ABDOMEN and PELVIS: Intraperitoneal space: See above. Bones/joints: Degenerative changes of the spine. No acute fracture. No dislocation. Soft tissues: Unremarkable. Vasculature: Atherosclerotic changes of the aorta. No abdominal aortic aneurysm. Lymph nodes: Unremarkable. No enlarged lymph nodes. IMPRESSION: 1. Moderate fecal retention, correlate for constipation. 2. Diverticulosis, without acute diverticulitis. No small bowel obstruction. No free air.
[2025-05-05] MEDS: GLYCERIN ADULT SUPPOSITORY 1 EACH RECTAL STA (00:06)
[2025-05-05] MEDS: SENNOSIDES-DOCUSATE SODIUM 1 EACH TAB PO STA (00:06)
[2025-05-05 00:52] VITALS: BP 172/89; PULSE 70
== END 2025-05-05 00:52 | disposition home or self-care (01) ==
LOC: EC 20:26
DX: K59.00 Constipation, unspecified (principal); R53.1 Weakness; Z87.891 Personal history of nicotine dependence
CPT/HCPCS: 93005; 80053; 82150; 83605; 83690; 84484; 85025; 74177; 99284; 96361 ×3; 96374; 96375; J2405; Q9967; J2470; 36415

== ENCOUNTER 2025-05-08 06:40 | Inpatient (IN) | payer MEDICARE, OTHER ==
--- NOTE | 2025-05-08 06:54 | ED ---
Fall HPI - General Chief Complaint: Fall Stated Complaint: Fall on blood thinners Time Seen by Provider: 05/08/25 06:45 Source: patient, family, RN notes reviewed Mode of arrival: wheelchair Limitations: no limitations - History of Present Illness Initial Comments: This is a 74-year-old male who presents to the emergency department for a fall. Patient states that he was up walking around in the middle of the night waiting for a tow truck. When he got tired of walking he went to sit down, however in the process he lost his balance and fell face first, hitting his head on the ground. Denies any loss of consciousness. However, family at bedside states that he got up and left without telling anyone and was gone for a couple of hours before they found him. When they did finally find him he was on the ground laying on his side and waving for help. He has a history of dementia but has never left on his own and wandered around before, which concerns them. He is A&O x3 and family states that he is currently acting like himself, however they are concerned about the behavior he exhibited earlier and are unsure if he actually had a mechanical fall or if he may have had a syncopal episode. He is on Plavix for a history of CVA. He does have several superficial abrasions to his face. Tetanus vaccine is up-to-date. Denies sustaining any additional injuries. MD Complaint: fall - Related Data Home Medications Medication Instructions Recorded Confirmed Atorvastatin [Lipitor] 80 mg PO HS 05/26/17 05/08/25 Aspirin EC [Ecotrin Low Dose] 81 mg PO DAILY 02/12/18 05/08/25 calcitrioL 0.25 mcg PO SUTUWETHFRSA 10/07/18 05/08/25 Clopidogrel [Plavix] 75 mg PO DAILY 12/08/19 05/08/25 Melatonin [Melatonin Tr] 10 mg PO HS 07/24/22 05/08/25 Cetirizine HCl [Zyrtec] 10 mg PO DAILY 10/17/24 05/08/25 Cholecalciferol (Vitamin D3) 50 mcg PO DAILY 10/17/24 05/08/25 [Vitamin D3 (50 Mcg = 2000 Iu)] Memantine [Namenda] 5 mg PO BID 10/17/24 05/08/25 Pantoprazole [Protonix] 40 mg PO BID 10/17/24 05/08/25 Sertraline [Zoloft] 100 mg PO DAILY 10/17/24 05/08/25 amLODIPine [Norvasc] 10 mg PO DAILY 12/29/24 05/08/25 Docusate [Colace] 100 mg PO DAILY 05/08/25 05/08/25 Allergies Allergy/AdvReac Type Severity Reaction Status Date / Time No Known Allergies Allergy Verified 05/08/25 10:59 Review of Systems ROS Statement: Those systems with pertinent positive or pertinent negative responses have been documented in the HPI. ROS Other: All systems not noted in ROS Statement are negative. Past Medical History Past Medical History: COPD, CVA/TIA, Eye Disorder, GERD/Reflux, Hyperlipidemia, Hypertension, Osteoarthritis (OA), Prostate Disorder, Renal Disease, Sleep Apnea/CPAP/BIPAP, Syncope Additional Past Medical History / Comment(s): Multiple TIAs, CVA 01/2017 with dysphagia-peg tube inserted and now out, has residual weakness lt arm/leg and some lt facial droop, chronic kidney disease stage III, BPH, Uti, ROSA has Cpap but does not tolerate it no longer using it, gastric ulcer, past hx R foot 3rd toe osteomylitis, arthritis multiple joints, past hx shingels, Loop recorder removed 12/30/21, dementia, fall History of Any Multi-Drug Resistant Organisms: None Reported Past Surgical History: Hernia Repair, Joint Replacement Additional Past Surgical History / Comment(s): 06/01/17 intracranial angioplasty- (pt stated "he has stents') HFH, EGD with peg tube insertion since removed, R inguinal hernia repair, R total knee arthroplasty, colonoscopies with last one in 2019-normal., soniya eye cat sx, loop recorder since removed. Past Anesthesia/Blood Transfusion Reactions: No Reported Reaction Past Psychological History: No Psychological Hx Reported Smoking Status: Former smoker Past Alcohol Use History: None Reported Past Drug Use History: None Reported - Past Family History Mother Family Medical History: CVA/TIA, Diabetes Mellitus, Hyperlipidemia, Hypertension Father Family Medical History: CVA/TIA, Hypertension General Exam Limitations: no limitations General appearance: alert, in no apparent distress Head exam: Present: other (Superficial abrasions to the upper lip and right eyebrow) Eye exam: Present: PERRL, EOMI Respiratory exam: Present: normal lung sounds bilaterally. Absent: respiratory distress, wheezes, rales, rhonchi, stridor Cardiovascular Exam: Present: regular rate, normal rhythm Neurological exam: Present: alert, oriented X3, CN II-XII intact Psychiatric exam: Present: normal affect, normal mood Course Vital Signs 05/08/25 05/08/25 05/08/25 06:42 07:04 09:34 Temperature 98.6 F Pulse Rate 91 89 76 Respiratory 18 22 20 Rate Blood Pressure 146/83 171/92 152/92 O2 Sat by Pulse 100 97 97 Oximetry 05/08/25 11:03 Temperature Pulse Rate 76 Respiratory 20 Rate Blood Pressure 154/91 O2 Sat by Pulse 96 Oximetry Medical Decision Making - Medical Decision Making This is a 74-year-old male who presents to the emergency department for a fall. Was pt. sent in by a medical professional or institution? @ -No Did you speak to anyone other than the patient for history? @ -His provided the history about him leaving the house for hours and not being an entirely reliable historian due to a history of dementia. Did you review nursing and triage notes? @ -Yes, and I agree, it is accurate with regards to the patient's symptoms. Were old charts reviewed? @ -No Differential Diagnosis? @ -Differential Diagnosis Head Injury: Contusion, hematoma, intracranial hemorrhage, skull fracture, whiplash, concussion, this is not meant to be an all-inclusive list. EKG interpreted by me (3pts min.)? @ -EKG interpreted by me demonstrating the following: Sinus rhythm. V entricular rate 83 bpm, [place] interval 173 ms, QRS duration 94 ms, QTc 406 ms. X-rays interpreted by me (1pt min.)? @ -Chest x-ray obtained, my interpretation identifies no localized consolidations or infiltrates. CT interpreted by me (1pt min.)? @ -Computed tomography scan of the brain and c-spine obtained. My interpretation identifies no evidence of an acute intracranial hemorrhage, skull fracture, or cervical spine fracture. CT scan the facial bones obtained. My interpretation identifies no acute facial fractures. U/S interpreted by me (1pt. min.)? @ -Not obtained What testing was considered but not performed? (CT, X-rays, U/S, labs)? Why? @ -None What meds were considered but not given? Why? @ -None Did you discuss the management of the patient with other professionals? @ -Yes, Dr. Nevarez, who accepts the patient for admission. Did you reconcile home meds? @ -No Was smoking cessation discussed for >3mins.? @ -No Was critical care preformed (if so, how long)? @ -No Were there social determinants of health that impacted care today? How? (Homelessness, low income, unemployed, alcoholism, drug addiction, transportation, low edu. Level, literacy, decrease access to med. care, half-way, rehab)? @ -No Was there de-escalation of care discussed even if they declined? (Discuss DNR or withdrawal of care, Hospice)? @ -No What co-morbidities impacted this encounter? (DM, HTN, Smoking, COPD, CAD, Cancer, CVA, Hep., AIDS, mental health diagnosis, sleep apnea, morbid obesity)? @ -Hx of CVA, dementia Was patient admitted / discharged? @ -Admitted. Code COAG was activated on arrival due to the patient sustaining a head injury on Plavix. CT scan of the brain/C-spine and facial bones obtained revealing no acute process. Chest x-ray reveals no acute findings. Given that he was exhibiting behavior that was different than normal and they could not be sure that his history was entirely accurate, we did proceed with further workup including laboratory studies and a urinalysis. Lab work demonstrates a minor JENNIFER with a BUN of 23, creatinine of 1.67, and eGFR of 40. Magnesium also slightly low at 1.4. Troponin mildly elevated at 0.041. Patient denying any active chest pain. Given the history of dementia and somewhat unreliable history, it is unclear if he had a fall versus syncopal episode. Given the possibility of a syncopal episode with elevated troponin, patient was admitted to medicine for further management. 400 mg of magnesium oxide and 2 g of magnesium sulfate administered. He was also given 500 mL of IV fluids. Serial troponins were ordered and consult was placed for cardiology. Case discussed with ED attending Dr. Joseph. Undiagnosed new problem with uncertain prognosis? @ -None Drug Therapy requiring intensive monitoring for toxicity (Heparin, Nitro, Insulin, Cardizem)? @ -None Were any procedures done? @ -None Diagnosis/symptom? @ -Fall versus syncope, hypomagnesemia, elevated troponin Acute, or Chronic, or Acute on Chronic? @ -Acute Uncomplicated (without systemic symptoms) or Complicated (systemic symptoms)? @ -Complicated Side effects of treatment? @ -None Exacerbation, Progression, or Severe Exacerbation] @ -Not applicable Poses a threat to life or bodily function? @ -Yes, if due to ACS can be life-threatening - Lab Data Result diagrams: 05/08/25 07:26 05/08/25 07: Lab Results 05/08/25 05/08/25 05/08/25 Range/Units 07:26 07: 07:26 WBC 9.67 (4.50-10.00) 10*3/uL RBC 3.77 L (4.40-5.60) 10*6/uL Hgb 11.9 L (13.0-17.0) g/dL Hct 34.5 L (39.6-50.0) % MCV 91.5 (80.0-97.0) fL MCH 31.6 (27.0-32.0) pg MCHC 34.5 (32.0-37.0) g/dL Plt Count 236 (140-440) 10*3/uL MPV 9.0 L (9.5-12.2) fL Immature Gran % (Auto) 0.4 % Neutrophils % 74.2 % Lymphocytes % 16.0 % Monocytes % 7.7 % Eosinophils % 1.1 % Basophils % 0.6 % Immature Gran # 0.04 (0.00-0.04) 10*3/uL Neutrophils # 7.17 (1.80-7.70) 10*3/uL Lymphocytes # 1.55 (0.90-5.00) 10*3/uL Monocytes # 0.74 (0.20-1.00) 10*3/uL Eosinophils # 0.11 (0.04-0.35) 10*3/uL Basophils # 0.06 (0.00-0.10) 10*3/uL PT 10.8 (10.0-12.5) sec INR 1.0 (<1.2) APTT 23.3 (22.0-30.0) sec Sodium 141 (137-145) mmol/L Potassium 3.8 (3.5-5.1) mmol/L Chloride 105 (98-107) mmol/L Carbon Dioxide 23 (22-30) mmol/L Anion Gap 13 mmol/L BUN 23 H (9-20) mg/dL Creatinine 1.67 H (0.66-1.25) mg/dL Est GFR (CKD-EPI)AfAm 46 (>60 ml/min/1.73 sqM) Est GFR (CKD-EPI)NonAf 40 (>60 ml/min/1.73 sqM) Glucose 191 H (74-99) mg/dL Calcium 9.9 (8.4-10.2) mg/dL Magnesium 1.4 L (1.6-2.3) mg/dL Total Bilirubin 0.4 (0.2-1.3) mg/dL AST 27 (17-59) U/L ALT 25 (4-49) U/L Alkaline Phosphatase 151 H (38-126) U/L Troponin I (0.000-0.034) ng/mL Total Protein 7.2 (6.3-8.2) g/dL Albumin 4.2 (3.5-5.0) g/dL 05/08/25 Range/Units 07:26 WBC (4.50-10.00) 10*3/uL RBC (4.40-5.60) 10*6/uL Hgb (13.0-17.0) g/dL Hct (39.6-50.0) % MCV (80.0-97.0) fL MCH (27.0-32.0) pg MCHC (32.0-37.0) g/dL Plt Count (140-440) 10*3/uL MPV (9.5-12.2) fL Immature Gran % (Auto) % Neutrophils % % Lymphocytes % % Monocytes % % Eosinophils % % Basophils % % Immature Gran # (0.00-0.04) 10*3/uL Neutrophils # (1.80-7.70) 10*3/uL Lymphocytes # (0.90-5.00) 10*3/uL Monocytes # (0.20-1.00) 10*3/uL Eosinophils # (0.04-0.35) 10*3/uL Basophils # (0.00-0.10) 10*3/uL PT (10.0-12.5) sec INR (<1.2) APTT (22.0-30.0) sec Sodium (137-145) mmol/L Potassium (3.5-5.1) mmol/L Chloride (98-107) mmol/L Carbon Dioxide (22-30) mmol/L Anion Gap mmol/L BUN (9-20) mg/dL Creatinine (0.66-1.25) mg/dL Est GFR (CKD-EPI)AfAm (>60 ml/min/1.73 sqM) Est GFR (CKD-EPI)NonAf (>60 ml/min/1.73 sqM) Glucose (74-99) mg/dL Calcium (8.4-10.2) mg/dL Magnesium (1.6-2.3) mg/dL Total Bilirubin (0.2-1.3) mg/dL AST (17-59) U/L ALT (4-49) U/L Alkaline Phosphatase (38-126) U/L Troponin I 0.041 H* (0.000-0.034) ng/mL Total Protein (6.3-8.2) g/dL Albumin (3.5-5.0) g/dL - Radiology Data Radiology results: report reviewed, image reviewed Disposition Clinical Impression: Fall, Hypomagnesemia, Elevated troponin Disposition: ADMITTED IP TO THIS HOSP
[2025-05-08] MEDS: ACETAMINOPHEN TAB 325 MG TAB PO STA (07:23)
--- NOTE | 2025-05-08 07:29 | CT ---
EXAMINATION TYPE: CT brain cspine wo con, CT facial bones wo con CT DLP: 1220.6 mGycm, Automated exposure control for dose reduction was used. DATE OF EXAM: 05/08/2025 7:17 AM COMPARISON: CT brain 12/28/2024, CT Brain and cspine 10/16/2024 CLINICAL INDICATION:Male, 74 years old with history of Fall on thinners; FALL ON BLOOD THINNERS TECHNIQUE: Brain: Multiple axial CT images of the brain were obtained without IV contrast. Cspine: Axial CT images from the skull base to the inferior aspect of T2 we obtained without intraven ous contrast. Coronal and sagittal reformatted images were also reviewed. Facial bones; axial CT images of the facial bones were obtained without contrast and soft tissue and bone windows. Coronal and sagittal reformatted images were also reviewed. FINDINGS: Brain: Extra-axial spaces: No abnormal extra-axial fluid collections. Ventricular system: Within normal limits Cerebral parenchyma: Cerebral atrophy. No acute intraparenchymal hemorrhage or mass effect. The lazo -white junction is well differentiated. Scattered hypoattenuating areas are seen within the periventr icular and subcortical white matter. Remote lacunar injury within the bilateral basal ganglia and ri ght thalamus. Cerebellum: Unremarkable. Mass effect: No evidence of midline shift. Intracranial vasculature: Atherosclerotic calcifications of the intracranial vessels. Soft tissues: Normal. Calvarium: No depressed skull fracture. Probable sclerotic left frontal bone osteoma measuring 1.4 cm . Paranasal sinuses and mastoid air cells: The mastoid air cells are clear. Left sphenoid sinus 9 mm mu cous retention cyst. The remaining paranasal sinuses are clear. Aplasia of the left frontal sinus. Visualized orbits: Orbital contents are intact. Cervical spine: Fracture: None. Osseous structures: L2 level anterior osteophytosis. Vertebral alignment: Within normal limits. Spinal canal/Neural Foramina: No evidence of significant spinal canal narrowing. No evidence for sign ificant neural foraminal stenosis. Neck soft tissues: Prevertebral soft tissues are within normal limits. Calcification of the nuchal li gament. Other: The airway is patent with some trace secretions within the trachea. The lung apices are clear. Moderate calcification at the left carotid bifurcation. 1.1 cm left thyroid lobe hypodense nodule. Facial Bones: There is no evidence of fracture, subluxation, dislocation, or significant soft tissue swelling. Prob able sclerotic left frontal bone osteoma measuring 1.4 cm. Bilateral aphakia. No acute traumatic proc ess to the orbits. The temporal-mandibular joints appear symmetric. The mastoid air cells are clear. Left sphenoid sinus 9 mm mucous retention cyst. The remaining paranasal sinuses are clear. Aplasia of the left frontal sinus. IMPRESSION: 1. No acute intracranial process. 2. Nonspecific white matter changes, likely secondary to chronic small vessel ischemic disease. 3. No acute facial bone fracture. 4. No evidence of cervical spine fracture. 5. Mild multilevel degenerative disc disease. [facility], , 05/08/2025 7:27 AM
[2025-05-08 07:33] LABS: Basophils # (A) 0.06 10*3/uL (0.00-0.10); Basophils % (A) 0.6 %; Eosinophils # (A) 0.11 10*3/uL (0.04-0.35); Eosinophils % (A) 1.1 %; HCT 34.5 % (39.6-50.0); HGB 11.9 g/dL (13.0-17.0); Lymphocytes # (A) 1.55 10*3/uL (0.90-5.00); Lymphocytes % (A) 16.0 %; MCH 31.6 pg (27.0-32.0); MCHC 34.5 g/dL (32.0-37.0); MCV 91.5 fL (80.0-97.0); Monocytes # (A) 0.74 10*3/uL (0.20-1.00); Monocytes % (A) 7.7 %; Neutrophils # (A) 7.17 10*3/uL (1.80-7.70); Neutrophils % (A) 74.2 %; Platelet Count 236 10*3/uL (140-440); RBC 3.77 10*6/uL (4.40-5.60); RDW 15.5 % (11.5-14.5); WBC 9.67 10*3/uL (4.50-10.00)
[2025-05-08 07:44] LABS: INR 1.0 (<1.2); Partial Thromboplastin Time 23.3 sec (22.0-30.0); Prothrombin Time 10.8 sec (10.0-12.5)
[2025-05-08 07:46] LABS: Potassium 3.8 mmol/L (3.5-5.1)
[2025-05-08 07:47] LABS: ALT 25 U/L (4-49); AST 27 U/L (17-59); African American GFR (CKD) 46 (>60 ml/min/1.73 sqM); Albumin 4.2 g/dL (3.5-5.0); Alkaline Phosphatase 151 U/L (38-126); Anion Gap 13 mmol/L; Blood Urea Nitrogen 23 mg/dL (9-20); Calcium 9.9 mg/dL (8.4-10.2); Carbon Dioxide 23 mmol/L (22-30); Chloride 105 mmol/L (98-107); Glucose 191 mg/dL (74-99); Magnesium 1.4 mg/dL (1.6-2.3); Non-African American GFR(CKD) 40 (>60 ml/min/1.73 sqM); Sodium 141 mmol/L (137-145); Total Protein 7.2 g/dL (6.3-8.2)
[2025-05-08] MEDS: SODIUM CHLORIDE 0.9% 500 ML 500 ML IV ONE (08:27)
[2025-05-08] MEDS ORDERED: ONDANSETRON 4 MG/2 ML VIAL IVP PRN (08:38)
[2025-05-08] MEDS ORDERED: NALOXONE 0.4 MG/ML 1 ML VIAL IV PRN (08:38)
[2025-05-08] MEDS ORDERED: MORPHINE SULFATE 4 MG/ML SYRINGE IV PRN (08:38)
[2025-05-08] MEDS ORDERED: HYDROcodone/APAP 5-325MG 1 EACH TAB PO PRN (08:38)
--- NOTE | 2025-05-08 08:41 | XR ---
EXAMINATION TYPE: XR chest 2V DATE OF EXAM: 05/08/2025 8:36 AM COMPARISON: Chest radiographs from 12/28/2024 TECHNIQUE: XR chest 2V Frontal and lateral views of the chest. CLINICAL INDICATION:Male, 74 years old with history of Fall; pain FINDINGS: Lungs/Pleura: There is no evidence of pleural effusion, focal consolidation, or pneumothorax. Pulmonary vascularity: Unremarkable. Heart/mediastinum: Cardiomediastinal silhouette is unremarkable. Musculoskeletal: No acute osseous pathology. IMPRESSION: No acute cardiopulmonary disease/process. [facility], , 05/08/2025 8:38 AM
[2025-05-08] MEDS: MAGNESIUM SULFATE-D5W PMX 1 GM in DEXTROSE/WATER 1 100ML.BAG IVPB SCH (09:33)
[2025-05-08] MEDS: MAGNESIUM OXIDE 400 MG TAB PO STA (09:33)
--- NOTE | 2025-05-08 10:36 | P.HPIM ---
History of Present Illness This is a pleasant 74 years old -[place] male with past medical history of multiple medical problems as below Information was obtained with the help of family at bedside. Patient was Up all night watching TV , by 3:00 he was laying down and went up to go to the bathroom and fell 30 feet lab 118 for prescription refill we are down e-prescribing please contact your pharmacy with any refills controlled substances will not be filled after hours and will require an appointment this call please call BMP did not order Patient feels some dizziness before he fell which was nonspecific but he denies chest pain or dyspnea. No headache or new weakness or numbness. No abdominal pain vomiting diarrhea no dysuria or urgency. However he always have incontinence of urine Patient with no fever. Blood pressure stable Labs reviewed showing creatinine 1.6 which is at baseline hemoglobin 11.9. Liver enzymes unremarkable. Troponin is mildly elevated 0.041. Chest x-ray showing no acute cardiopulmonary process. And neck CT scan showing no acute process or fracture. CAT scan of the face showed no acute intracranial process nonspecific white matter changes likely secondary to chronic small vessel ischemic changes. There is no acute facial bone fracture with no evidence of cervical spine fractures. Mild multilevel degenerative disc disease. Review of Systems Review of systems CONSTITUTIONAL: No fever, no malaise, no fatigue. HEENT: No recent visual problems or hearing problems. Denied any sore throat. CARDIOVASCULAR: No orthopnea, PND, no palpitations, no syncope. PULMONARY: No shortness of breath, no cough, no hemoptysis. GASTROINTESTINAL: No diarrhea, no nausea, no vomiting, no abdominal pain. Normoactive bowel sounds. NEUROLOGICAL: No headaches, no weakness, no numbness. HEMATOLOGICAL: Denies any bleeding or petechiae. GENITOURINARY: Denies any burning micturition, frequency, or urgency. MUSCULOSKELETAL/RHEUMATOLOGICAL: Denies any joint pain, swelling, or any muscle pain. ENDOCRINE: Denies any polyuria or polydipsia. Past Medical History Past Medical History: COPD, CVA/TIA, Eye Disorder, GERD/Reflux, Hyperlipidemia, Hypertension, Osteoarthritis (OA), Prostate Disorder, Renal Disease, Sleep Apnea/CPAP/BIPAP, Syncope Additional Past Medical History / Comment(s): Multiple TIAs, CVA 01/2017 with dysphagia-peg tube inserted and now out, has residual weakness lt arm/leg and some lt facial droop, chronic kidney disease stage III, BPH, Uti, ROSA has Cpap but does not tolerate it no longer using it, gastric ulcer, past hx R foot 3rd toe osteomylitis, arthritis multiple joints, past hx shingels, Loop recorder removed 12/30/21, dementia, fall History of Any Multi-Drug Resistant Organisms: None Reported Past Surgical History: Hernia Repair, Joint Replacement Additional Past Surgical History / Comment(s): 06/01/17 intracranial angioplasty- (pt stated "he has stents') HFH, EGD with peg tube insertion since removed, R inguinal hernia repair, R total knee arthroplasty, colonoscopies with last one in 2019-normal., soniya eye cat sx, loop recorder since removed. Past Anesthesia/Blood Transfusion Reactions: No Reported Reaction Past Psychological History: No Psychological Hx Reported Smoking Status: Former smoker Past Alcohol Use History: None Reported Past Drug Use History: None Reported - Past Family History Mother Family Medical History: CVA/TIA, Diabetes Mellitus, Hyperlipidemia, Hypertension Father Family Medical History: CVA/TIA, Hypertension Medications and Allergies Home Medications Medication Instructions Recorded Confirmed Type Atorvastatin [Lipitor] 80 mg PO HS 05/26/17 12/29/24 History Aspirin EC [Ecotrin Low Dose] 81 mg PO DAILY 02/12/18 12/29/24 History calcitrioL 0.25 mcg PO DIRECTED 10/07/18 12/29/24 History Clopidogrel [Plavix] 75 mg PO DAILY 12/08/19 12/29/24 History Melatonin [Melatonin Tr] 10 mg PO HS 07/24/22 12/29/24 History Magnesium Oxide [Mag-Ox] 400 mg PO DAILY #14 tablet 07/08/24 12/29/24 Rx Cetirizine HCl [Zyrtec] 10 mg PO HS 10/17/24 12/29/24 History Cholecalciferol (Vitamin D3) 50 mcg PO DAILY 10/17/24 12/29/24 History [Vitamin D3 (50 Mcg = 2000 Iu)] Memantine [Namenda] 10 mg PO BID 10/17/24 12/29/24 History Pantoprazole [Protonix] 40 mg PO BID 10/17/24 12/29/24 History Sertraline [Zoloft] 100 mg PO HS 10/17/24 12/29/24 History Albuterol Sulfate [Albuterol 2 puff PO RT-Q4H PRN 12/29/24 12/29/24 History Sulfate Hfa] amLODIPine [Norvasc] 10 mg PO DAILY 12/29/24 12/29/24 History Acetaminophen Tab [Tylenol] 650 mg PO Q6HR PRN tab 01/01/25 Rx Albuterol Nebulized [Ventolin 2.5 mg INHALATION RT-Q4H PRN ml 01/01/25 Rx Nebulized] Heparin Sodium,Porcine (1 ml) 5,000 unit SQ Q8HR each 01/01/25 Rx [Heparin Sodium] Loperamide [Imodium] 2 mg PO BID PRN cap 01/01/25 Rx Sennosides [Senokot] 8.6 mg PO BID tab 01/01/25 Rx Allergies Allergy/AdvReac Type Severity Reaction Status Date / Time No Known Allergies Allergy Verified 05/08/25 06:44 Physical Exam Vitals: Vital Signs Temp Pulse Resp BP Pulse Ox 05/08/25 09:34 76 20 152/92 97 05/08/25 07:04 89 22 171/92 97 05/08/25 06:42 98.6 F 91 18 146/83 100 Intake and Output 05/07/25 05/08/25 05/08/25 22:59 06:59 14:59 Other: Weight 97.522 kg -GENERAL: The patient is alert and oriented x3, not in any acute distress. Well developed, well nourished. Generally weak HEENT: Pupils are round and equally reacting to light. EOMI. No scleral icterus. No conjunctival pallor. Normocephalic, atraumatic. No pharyngeal erythema. No thyromegaly. CARDIOVASCULAR: S1 and S2 present. No murmurs, rubs, or gallops. PULMONARY: Chest is clear to auscultation, no wheezing , no crackles. ABDOMEN: Soft, nontender, nondistended, normoactive bowel sounds. No palpable organomegaly. MUSCULOSKELETAL: No joint swelling or deformity. EXTREMITIES: No cyanosis, clubbing, or pedal edema. NEUROLOGICAL: Gross neurological examination did not reveal any focal deficits. SKIN: No rashes. no petechiae. Results CBC & Chem 7: 05/08/25 07:26 05/08/25 07:26 Labs: Abnormal Lab Results - Last 24 Hours (Table) 05/08/25 05/08/25 05/08/25 Range/Units 07:26 07:26 07:26 RBC 3.77 L (4.40-5.60) 10*6/uL Hgb 11.9 L (13.0-17.0) g/dL Hct 34.5 L (39.6-50.0) % MPV 9.0 L (9.5-12.2) fL BUN 23 H (9-20) mg/dL Creatinine 1.67 H (0.66-1.25) mg/dL Glucose 191 H (74-99) mg/dL Magnesium 1.4 L (1.6-2.3) mg/dL Alkaline Phosphatase 151 H (38-126) U/L Troponin I 0.041 H* (0.000-0.034) ng/mL Assessment and Plan Assessment: Fall at home without syncope Elevated troponin Cardiac team consult Diabetes mellitus Hypertension Hyperlipidemia History of osteoarthritis History of CVA GERD BPH Sleep apnea History of syncope Plan: Aspirin Serial troponin Cardiology team consult Physical therapy evaluation Check urine analysis and bladder scan Patient may be evaluated for possible placement upon discharge. Labs and medication were reviewed.. Continue same treatment. Continue with symptomatic treatment. Resume home medication. Monitor lytes and vitals. DVT and GI prophylaxis. Further recommendations depends on the clinical course of the patient DVT prophylaxis: Subcutaneous heparin GI Prophylaxis: Pepcid PT/OT: Pending Prognosis is guarded
[2025-05-08] MEDS: ASPIRIN 81 MG PO SCH (11:02)
[2025-05-08 12:02] LABS: Bilirubin,Urine Negative (Negative); Blood,Urine Negative (Negative); Color,Urine Light Yellow; Glucose,Urine (UA) 1+ (Negative); Ketones,Urine Negative (Negative); Leukocyte Esterase,Urine Negative (Negative); Nitrite,Urine Negative (Negative); PH, Urine 7.0 (5.0-8.0); Protein,Urine Trace (Negative); Specific Gravity,Urine 1.022 (1.001-1.035); Urobilinogen,Urine <2.0 mg/dL (<2.0)
[2025-05-08] MEDS: ACETAMINOPHEN TAB 325 MG TAB PO PRN (13:06)
[2025-05-08] MEDS: amLODIPine 10 MG TAB PO SCH (13:06)
[2025-05-08] MEDS ORDERED: MELATONIN 5 MG TABLET PO PRN (15:56)
[2025-05-08] MEDS: PANTOPRAZOLE 40 MG TABLET PO SCH (17:21)
[2025-05-08] MEDS: MEMANTINE 5 MG TAB PO SCH (20:38)
[2025-05-08] MEDS: ATORVASTATIN 80 MG TAB PO SCH (20:38)
[2025-05-08] MEDS: HEPARIN SODIUM,PORCINE 5,000 UNIT/ML 1 ML VIAL SQ SCH (20:39)
[2025-05-08] MEDS: FAMOTIDINE 20 MG/2 ML VIAL IV SCH (20:39)
[2025-05-08] MEDS ORDERED: FAMOTIDINE 20 MG/2 ML VIAL IV SCH (21:00)
[2025-05-09] MEDS: CLOPIDOGREL 75 MG TAB PO SCH (08:35)
[2025-05-09] MEDS: LORATADINE 10 MG TAB PO SCH (08:35)
[2025-05-09] MEDS: SERTRALINE 100 MG TAB PO SCH (08:35)
[2025-05-09] MEDS: DOCUSATE 100 MG CAP PO SCH (08:35)
--- NOTE | 2025-05-09 17:17 | P.CRDCN ---
History of Present Illness Consult date: 05/09/25 History of present illness: HISTORY OF PRESENTING ILLNESS: 74-year-old -[place]ames[place] past medical history of CVA, hypertension diabetes dyslipidemia. Known to Dr. Card. Presented to the hospital because of fall at home. Patient was Up all night watching TV , by 3:00 he was laying down and went up to go to the bathroom and fell He reports that he was weak and he attributes it to his recent fall He denies any loss of consciousness however. On presentation he does have a small abrasion on his right forehead. CT face did not show any acute process. 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 Patient's BUN is 23, creatinine is 1.6. .................................................... ................................................................................ .......... EKG shows sinus rhythm with nonspecific ST changes with T wave inversions in V5 V6. When compared to older EKGs from 2022 they appears very similar. .......................................................... ................................................................................ .... REVIEW OF SYSTEMS: 14 point review of system is negative except what is mentioned above in HPI. ................... ................................................................................ ........................................... PHYSICAL EXAMINATION: Neck: Brisk carotid upstroke, no jugular venous distention. Lungs: Clear to auscultation. Heart: Regular rate and rhythm, S1-S2, , no murmur or rub. Abdomen: Soft nontender, positive bowel sounds. Extremities: No edema, intact distal pulses. Neuro: Alert, oritented, no focal deficits. Detailed neuro exam was not performed. ............................ ................................................................................ .................................. ASSESSMENT: # Fall likely from generalized weakness # Elevated troponin less likely cardiogenic. Most likely related to poor renal clearance. Flat pattern # Prior history of CVA # Prior history of hypertension, dyslipidemia type 2 diabetes # Sleep apnea PLAN: Obtain orthostatic vital signs Obtain echocardiogram, obtain carotid doppler 14-day extended Holter monitor to go home with Monitor hemodynamics and telemetry for any arrhythmias On review of his medications he is on amlodipine 10, Plavix 75, aspirin and Lipitor. Will continue this medication. Check for TSH NT-proBNP lipids and A1c Neurological eval as per primary team's discretion Anton Layne MD, FACC, RPVI Past Medical History Past Medical History: COPD, CVA/TIA, Eye Disorder, GERD/Reflux, Hyperlipidemia, Hypertension, Osteoarthritis (OA), Prostate Disorder, Renal Disease, Sleep Apnea/CPAP/BIPAP, Syncope Additional Past Medical History / Comment(s): Multiple TIAs, CVA 01/2017 with dysphagia-peg tube inserted and now out, has residual weakness lt arm/leg and some lt facial droop, chronic kidney disease stage III, BPH, Uti, ROSA has Cpap but does not tolerate it no longer using it, gastric ulcer, past hx R foot 3rd toe osteomylitis, arthritis multiple joints, past hx shingels, Loop recorder removed 12/30/21, dementia, fall History of Any Multi-Drug Resistant Organisms: None Reported Past Surgical History: Hernia Repair, Joint Replacement Additional Past Surgical History / Comment(s): 06/01/17 intracranial angioplasty- (pt stated "he has stents') HFH, EGD with peg tube insertion since removed, R inguinal hernia repair, R total knee arthroplasty, colonoscopies with last one in 2019-normal., soniya eye cat sx, loop recorder since removed. Past Anesthesia/Blood Transfusion Reactions: No Reported Reaction Past Psychological History: No Psychological Hx Reported Smoking Status: Former smoker Past Alcohol Use History: None Reported Past Drug Use History: None Reported - Past Family History Mother Family Medical History: CVA/TIA, Diabetes Mellitus, Hyperlipidemia, Hypertension Father Family Medical History: CVA/TIA, Hypertension Medications and Allergies Home Medications Medication Instructions Recorded Confirmed Type Atorvastatin [Lipitor] 80 mg PO HS 05/26/17 05/08/25 History Aspirin EC [Ecotrin Low Dose] 81 mg PO DAILY 02/12/18 05/08/25 History calcitrioL 0.25 mcg PO SUTUWETHFRSA 10/07/18 05/08/25 History Clopidogrel [Plavix] 75 mg PO DAILY 12/08/19 05/08/25 History Melatonin [Melatonin Tr] 10 mg PO HS 07/24/22 05/08/25 History Cetirizine HCl [Zyrtec] 10 mg PO DAILY 10/17/24 05/08/25 History Cholecalciferol (Vitamin D3) 50 mcg PO DAILY 10/17/24 05/08/25 History [Vitamin D3 (50 Mcg = 2000 Iu)] Memantine [Namenda] 5 mg PO BID 10/17/24 05/08/25 History Pantoprazole [Protonix] 40 mg PO BID 10/17/24 05/08/25 History Sertraline [Zoloft] 100 mg PO DAILY 10/17/24 05/08/25 History amLODIPine [Norvasc] 10 mg PO DAILY 12/29/24 05/08/25 History Docusate [Colace] 100 mg PO DAILY 05/08/25 05/08/25 History Allergies Allergy/AdvReac Type Severity Reaction Status Date / Time No Known Allergies Allergy Verified 05/08/25 10:59 Physical Exam Vitals: Vital Signs Temp Pulse Pulse Pulse Pulse Resp BP 05/09/25 14:10 97.7 F 70 16 05/09/25 12:28 77 76 71 05/09/25 07:40 97.6 F 85 17 05/09/25 00:43 97.9 F 64 18 155/86 05/08/25 18:50 97.9 F 70 20 BP BP BP BP Pulse Ox 05/09/25 14:10 135/76 96 05/09/25 12:28 112/67 135/78 116/65 05/09/25 07:40 142/89 96 05/09/25 00:43 96 05/08/25 18:50 149/74 96 Intake and Output 05/09/25 05/09/25 05/09/25 06:59 14:59 22:59 Intake Total 358 Output Total 600 168 Balance -600 358 -168 Intake: Oral 358 Output: Urine 600 Post Void Residual 168 Other: Voiding Method Diaper Diaper External Catheter External Catheter Results 05/08/25 07:26 05/08/25 07:26 Current Medications Generic Name Dose Route Start Last Admin Trade Name Freq PRN Reason Stop Dose Admin Acetaminophen 650 mg 05/08/25 08:38 05/08/25 13:06 Acetaminophen Tab 325 Mg Tab PO 650 mg Q6HR PRN Administration Mild Pain or Fever > 100.5 Hydrocodone Bitart/Acetaminophen 1 each 05/08/25 08:38 Hydrocodone/Apap 5-325mg 1 Each Tab PO Q4HR PRN Moderate Pain (Scale 4 to 6) Amlodipine Besylate 10 mg 05/08/25 12:00 05/09/25 08:35 Amlodipine 10 Mg Tab PO 10 mg DAILY HAM Administration Aspirin 81 mg 05/08/25 10:30 05/09/25 08:35 Aspirin 81 Mg PO 81 mg DAILY HAM Administration Atorvastatin Calcium 80 mg 05/08/25 21:00 05/08/25 20:38 Atorvastatin 80 Mg Tab PO 80 mg HS HAM Administration Bisacodyl 10 mg 05/09/25 11:49 Bisacodyl 10 Mg Supp RECTAL DAILY PRN Constipation Calcitriol 0.25 mcg 05/08/25 16:00 05/09/25 16:31 Calcitriol 0.25 Mcg Cap PO 0.25 mcg SUTUWETHFRSA HAM Administration Clopidogrel Bisulfate 75 mg 05/09/25 09:00 05/09/25 08:35 Clopidogrel 75 Mg Tab PO 75 mg DAILY HAM Administration Docusate Sodium 100 mg 05/09/25 09:00 05/09/25 08:35 Docusate 100 Mg Cap PO 100 mg DAILY HAM Administration Famotidine 20 mg 05/09/25 21:00 Famotidine 20 Mg Tab PO HS HAM Heparin Sodium (Porcine) 5,000 unit 05/08/25 21:00 05/09/25 08:34 Heparin Sodium,Porcine 5,000 Unit/Ml 1 Ml Vial SQ 5,000 unit Q12HR HAM Administration Loratadine 10 mg 05/09/25 09:00 05/09/25 08:35 Loratadine 10 Mg Tab PO 10 mg DAILY HAM Administration Melatonin 10 mg 05/08/25 15:56 Melatonin 5 Mg Tablet PO HS PRN Insomnia Memantine 5 mg 05/08/25 21:00 05/09/25 08:35 Memantine 5 Mg Tab PO 5 mg BID HAM Administration Morphine Sulfate 4 mg 05/08/25 08:38 Morphine Sulfate 4 Mg/Ml Syringe IV Q4HR PRN Severe Pain (Scale 7 to 10) Naloxone HCl 0.2 mg 05/08/25 08:38 Naloxone 0.4 Mg/Ml 1 Ml Vial IV Q2M PRN Opioid Reversal Ondansetron HCl 4 mg 05/08/25 08:38 Ondansetron 4 Mg/2 Ml Vial IVP Q8HR PRN Nausea And Vomiting Pantoprazole Sodium 40 mg 05/08/25 17:30 05/09/25 16:31 Pantoprazole 40 Mg Tablet PO 40 mg AC-BID HAM Administration Sertraline HCl 100 mg 05/09/25 09:00 05/09/25 08:35 Sertraline 100 Mg Tab PO 100 mg DAILY HAM Administration Intake and Output 05/09/25 05/09/25 05/09/25 06:59 14:59 22:59 Intake Total 358 Output Total 600 168 Balance -600 358 -168 Intake: Oral 358 Output: Urine 600 Post Void Residual 168 Other: Voiding Method Diaper Diaper External Catheter External Catheter 05/08/25 07:26 05/08/25 07:26
--- NOTE | 2025-05-09 19:20 | US ---
EXAMINATION TYPE: US carotid duplex BILAT DATE OF EXAM: 05/09/2025 COMPARISON: CTA head and neck 09/06/2024, carotid ultrasound 04/23/2018 CLINICAL INDICATION: Male, 74 years old with history of cva, syncope; syncope Additional History: R55 Syncope TECHNIQUE: Grayscale, color Doppler and spectral Doppler evaluation of the bilateral carotid systems and vertebral arteries. Indirect Doppler criteria was utilized. FINDINGS: EXAM MEASUREMENTS: RIGHT: Peak Systolic Velocity (PSV) cm/sec ----- Right CCA: 52.6 ----- Right ICA: 39.5 ----- Right ECA: 59.6 ICA/CCA ratio: 0.8 RIGHT: End Diastole cm/sec ----- Right CCA: 9.9 ----- Right ICA: 11.5 ----- Right ECA: 9.4 LEFT: Peak Systolic Velocity (PSV) cm/sec ----- Left CCA: 40.7 ----- Left ICA: 53.6 ----- Left ECA: 63.7 ICA/CCA ratio: 1.3 LEFT: End Diastole cm/sec ----- Left CCA: 9.2 ----- Left ICA: 16.7 ----- Left ECA: 7.1 VERTEBRALS (direction of flow): Right Vertebral: Antegrade Left Vertebral: Antegrade Rhythm: Normal PAPER BAG MAKER NOTES: Right distal ICA not seen due to vessel diving deep Color Doppler imaging shows patency with blood flow throughout the carotid artery. Spectral waveforms are within normal limits. IMPRESSION: Right: No hemodynamically significant stenosis. Left: No hemodynamically significant stenosis. Criteria for Assigning % of Stenosis / Diameter reduction (Estimation based on the indirect measurements of the internal carotid artery velocities (ICA PSV). 1. Normal (no stenosis)=ICA PSV < 180 cm/s: ratio < 2.0: ICA EDV<40 cm/s. 2. Less than 50% stenosis=ICA PSV < 180 cm/s: ratio < 2.0: ICA EDV<40 cm/s. 3. 50 to 69% stenosis=ICA PSV of 180 to 230 cm/s: ration 2.0 ? 4.0: ICA EDV 40-100 cm/s. PSV 125-180 cm/sec and ICA/CCA PSV Ratio ? 2.0 is also consistent with 50-69% stenosis 4. Greater than 70% stenosis to near occlusion= ICA PSV > 230 cm/s: ratio > 4.0: ICA EDV > 100 cm/s. 5. Near occlusion= ICA PSV velocities may be low or undetectable: variable ratio and ICA EDV. 6. Total occlusion=unable to detect flow. [facility], , 05/09/2025 7:17 PM
--- NOTE | 2025-05-09 19:23 | P.PN ---
Subjective This is a pleasant 74 years old -[place] male with past medical history of multiple medical problems as below Information was obtained with the help of family at bedside. Patient was Up all night watching TV , by 3:00 he was laying down and went up to go to the bathroom and fell 30 feet lab 118 for prescription refill we are down e-prescribing please contact your pharmacy with any refills controlled substances will not be filled after hours and will require an appointment this call please call BMP did not order Patient feels some dizziness before he fell which was nonspecific but he denies chest pain or dyspnea. No headache or new weakness or numbness. No abdominal pain vomiting diarrhea no dysuria or urgency. However he always have incontinence of urine Patient with no fever. Blood pressure stable Labs reviewed showing creatinine 1.6 which is at baseline hemoglobin 11.9. Liver enzymes unremarkable. Troponin is mildly elevated 0.041. Chest x-ray showing no acute cardiopulmonary process. And neck CT scan showing no acute process or fracture. CAT scan of the face showed no acute intracranial process nonspecific white m atter changes likely secondary to chronic small vessel ischemic changes. There is no acute facial bone fracture with no evidence of cervical spine fractures. Mild multilevel degenerative disc disease. 05/09 05/09 Patient was little sleepy today No chest pain or abdominal pain He has constipation and requesting laxative we will going to order Colace and Dulcolax PT and OT evaluation requested Also will order workup with TSH B12 folate, hemoglobin A1c and creatinine kinase Cardiology ordered echocardiogram carotid Doppler exam recommended neurological consult w Active Medications Generic Name Dose Route Start Last Admin Trade Name Freq PRN Reason Stop Dose Admin Acetaminophen 650 mg 05/08/25 08:38 05/08/25 13:06 Acetaminophen Tab 325 Mg Tab PO 650 mg Q6HR PRN Administration Mild Pain or Fever > 100.5 Hydrocodone Bitart/Acetaminophen 1 each 05/08/25 08:38 Hydrocodone/Apap 5-325mg 1 Each Tab PO Q4HR PRN Moderate Pain (Scale 4 to 6) Amlodipine Besylate 10 mg 05/08/25 12:00 05/09/25 08:35 Amlodipine 10 Mg Tab PO 10 mg DAILY HAM Administration Aspirin 81 mg 05/08/25 10:30 05/09/25 08:35 Aspirin 81 Mg PO 81 mg DAILY HAM Administration Atorvastatin Calcium 80 mg 05/08/25 21:00 05/08/25 20:38 Atorvastatin 80 Mg Tab PO 80 mg HS HAM Administration Bisacodyl 10 mg 05/09/25 11:49 Bisacodyl 10 Mg Supp RECTAL DAILY PRN Constipation Calcitriol 0.25 mcg 05/08/25 16:00 05/09/25 16:31 Calcitriol 0.25 Mcg Cap PO 0.25 mcg SUTUWETHFRSA HAM Administration Clopidogrel Bisulfate 75 mg 05/09/25 09:00 05/09/25 08:35 Clopidogrel 75 Mg Tab PO 75 mg DAILY HAM Administration Docusate Sodium 100 mg 05/09/25 09:00 05/09/25 08:35 Docusate 100 Mg Cap PO 100 mg DAILY HAM Administration Famotidine 20 mg 05/09/25 21:00 Famotidine 20 Mg Tab PO HS HAM Heparin Sodium (Porcine) 5,000 unit 05/08/25 21:00 05/09/25 08:34 Heparin Sodium,Porcine 5,000 Unit/Ml 1 Ml Vial SQ 5,000 unit Q12HR HAM Administration Melatonin 10 mg 05/08/25 15:56 Melatonin 5 Mg Tablet PO HS PRN Insomnia Memantine 5 mg 05/08/25 21:00 05/09/25 08:35 Memantine 5 Mg Tab PO 5 mg BID HAM Administration Morphine Sulfate 4 mg 05/08/25 08:38 Morphine Sulfate 4 Mg/Ml Syringe IV Q4HR PRN Severe Pain (Scale 7 to 10) Naloxone HCl 0.2 mg 05/08/25 08:38 Naloxone 0.4 Mg/Ml 1 Ml Vial IV Q2M PRN Opioid Reversal Ondansetron HCl 4 mg 05/08/25 08:38 Ondansetron 4 Mg/2 Ml Vial IVP Q8HR PRN Nausea And Vomiting Pantoprazole Sodium 40 mg 05/08/25 17:30 05/09/25 16:31 Pantoprazole 40 Mg Tablet PO 40 mg AC-BID HAM Administration Sertraline HCl 100 mg 05/09/25 09:00 05/09/25 08:35 Sertraline 100 Mg Tab PO 100 mg DAILY HAM Administration Objective - Vital Signs Vital signs: Vital Signs Temp 97.6 F 05/09/25 07:40 Pulse 71 05/09/25 12:28 Resp 17 05/09/25 07:40 BP 116/65 05/09/25 12:28 Pulse Ox 96 05/09/25 07:40 FiO2 Intake & Output 05/08/25 05/09/25 05/09/25 18:59 06:59 18:59 Intake Total 236 240 Output Total 150 1000 Balance 86 -1000 240 Weight 97.522 kg Intake: Oral 236 240 Output: Urine 150 1000 Other: Voiding Method Diaper Diaper Diaper External Catheter External Catheter External Catheter # Voids 3 - Exam -GENERAL: The patient is alert and oriented x3, not in any acute distress. Well developed, well nourished. Generally weak HEENT: Pupils are round and equally reacting to light. EOMI. No scleral icterus. No conjunctival pallor. Normocephalic, atraumatic. No pharyngeal erythema. No thyromegaly. CARDIOVASCULAR: S1 and S2 present. No murmurs, rubs, or gallops. PULMONARY: Chest is clear to auscultation, no wheezing , no crackles. ABDOMEN: Soft, nontender, nondistended, normoactive bowel sounds. No palpable organomegaly. MUSCULOSKELETAL: No joint swelling or deformity. EXTREMITIES: No cyanosis, clubbing, or pedal edema. NEUROLOGICAL: Gross neurological examination did not reveal any focal deficits. SKIN: No rashes. no petechiae. - Labs CBC & Chem 7: 05/08/25 07:26 05/08/25 07:26 Labs: Abnormal Lab Results - Last 24 Hours (Table) 05/08/25 Range/Units 13:09 Troponin I 0.039 H* (0.000-0.034) ng/mL Assessment and Plan Assessment: Fall at home without syncope. Most likely secondary to generalized weakness Elevated troponin. 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 Labs and medication were reviewed.. Continue same treatment. Continue with symptomatic treatment. Resume home medication. Monitor lytes and vitals. DVT and GI prophylaxis. Further recommendations depends on the clinical course of the patient DVT prophylaxis: Subcutaneous heparin GI Prophylaxis: Pepcid PT/OT: Pending Prognosis is guarded
[2025-05-09] MEDS: FAMOTIDINE 20 MG TAB PO SCH (19:58)
[2025-05-10 01:10] LABS: NT-Pro-B-Type Natriuretic Pept 155 pg/mL (0-450)
[2025-05-10 01:16] LABS: Cholesterol 159.00 mg/dL (0.00-200.00); HDL Cholesterol 37.50 mg/dL (40.00-60.00); LDL Cholesterol,Calculated 81.7 mg/dL (0.0-131.0); Triglycerides 199.00 mg/dL (0.00-149.00); VLDL Calculation 39.80 mg/dL (5.00-40.00)
[2025-05-10 01:29] LABS: Magnesium 1.4 mg/dL (1.5-2.4)
[2025-05-10 09:26] LABS: Basophils # (A) 0.04 X 10*3/uL (0.00-0.10); Basophils % (A) 0.5 %; Eosinophils # (A) 0.31 X 10*3/uL (0.04-0.35); Eosinophils % (A) 3.6 %; HCT 37.1 % (39.6-50.0); HGB 12.0 g/dL (13.0-17.0); Immature Grans, Automated 0.40 %; Lymphocytes # (A) 2.32 X 10*3/uL (0.90-5.00); Lymphocytes % (A) 27.1 %; MCH 30.2 pg (27.0-32.0); MCHC 32.3 g/dL (32.0-37.0); MCV 93.2 FL (80.0-97.0); Monocytes # (A) 0.61 X 10*3/uL (0.20-1.00); Monocytes % (A) 7.1 %; NRBC Per 100 WBC 0 X 10*3/uL (0.00-0.01); Neutrophils # (A) 5.24 X 10*3/uL (1.80-7.70); Neutrophils % (A) 61.3 %; Platelet Count 258 X 10*3/uL (140-440); RBC 3.98 X 10*6/uL (4.40-5.60); RDW 16.2 % (11.5-14.5); WBC 8.55 X 10*3/uL (4.50-10.00)
[2025-05-10 10:22] LABS: ALT 28 U/L (10-49); AST 22 U/L (14-35); Albumin 3.9 g/dL (3.8-4.9); Albumin/Globulin Ratio 1.44 Ratio (1.60-3.17); Alkaline Phosphatase 106 U/L (41-126); Anion Gap 12.10 mmol/L (4.00-12.00); BUN/Creat Ratio 10.77 Ratio (12.00-20.00); Bilirubin,Unconjugated >0.10 mg/dL (0.20-1.00); Blood Urea Nitrogen 14.0 mg/dL (9.0-27.0); Calcium 9.1 mg/dL (8.7-10.3); Carbon Dioxide 22.9 mmol/L (21.6-31.8); Chloride 103 mmol/L (96-109); Globulin 2.7 g/dL (1.6-3.3); Glucose 108 mg/dL (70-110); Potassium 3.5 mmol/L (3.5-5.5); Sodium 138 mmol/L (135-145); Total Protein 6.6 g/dL (6.2-8.2); Vitamin B12 443.0 pg/mL (200.0-944.0)
--- NOTE | 2025-05-10 14:06 | P.PN ---
Subjective Progress Note Date: 05/10/25 HISTORY OF PRESENTING ILLNESS: 74-year-old -[place] past medical history of CVA, hypertension diabetes dyslipidemia. Known to Dr. Card. Presented to the hospital because of fall at home. Patient was Up all night watching TV , by 3:00 he was laying down and went up to go to the bathroom and fell He reports that he was weak and he attributes it to his recent fall He denies any loss of consciousness however. On presentation he does have a small abrasion on his right forehead. CT face did not show any acute process. CT head did not show any acute changes [employer] As[employer]er consulted for mild elevated troponin which has a flat pattern. Patient's BUN is 23, creatinine is 1.6. ................ ................................................................................ .............................................. EKG shows sinus rhythm with nonspecific ST changes with T wave inversions in V5 V6. When compared to older EKGs from 2022 they appears very similar. ...................... ................................................................................ ........................................ Progress note 05/10/2020 Friends BP 160/89, heart rate 62, mild complaint of supine hypertension Orthostatic vital signs were within acceptable range Denies any chest pain chest pressure. Reports feeling weak and is very sleepy today. TSH is 3.6, LDL is 81, B12 folate WNL, NT-proBNP 155, A1c 7.4 ................................................................................ .............................................................. PHYSICAL EXAMINATION: Neck: Brisk carotid upstroke, no jugular venous distention. Lungs: Clear to auscultation. Heart: Regular rate and rhythm, S1-S2, , no murmur or rub. Abdomen: Soft nontender, positive bowel sounds. Extremities: No edema, intact distal pulses. Neuro: Alert, oritented, no focal deficits. Detailed neuro exam was not per formed. ................................................................................ .............................................................. ASSESSMENT: # Fall likely from generalized weakness # Elevated troponin less likely cardiogenic. Most likely related to poor renal clearance. Flat pattern # type 2 diabetes # Prior history of CVA # Prior history of hypertension, dyslipidemia type 2 diabetes # Sleep apnea PLAN: Obtain echocardiogram, obtain carotid doppler 14-day extended Holter monitor to go home with Not sure if there is a established diagnosis of diabetes but if its new it can definitely explain patient's symptoms of generalized weakness. If cardiac testing is WNL, he can be cleared from cardiovascular standpoint. Objective - Vital Signs Vital signs: Vital Signs Temp 98.1 F 05/10/25 07:10 Pulse 62 05/10/25 07:10 Resp 17 05/10/25 07:10 BP 161/89 05/10/25 07:10 Pulse Ox 95 05/10/25 07:10 FiO2 Intake & Output 05/09/25 05/10/25 05/10/25 18:59 06:59 18:59 Intake Total 358 236 Output Total 168 800 Balance 190 -800 236 Intake: Oral 358 236 Output: Urine 800 Post Void Residual 168 Other: Voiding Method Diaper Diaper Diaper External Catheter External Catheter External Catheter # Voids 1 # Bowel Movements 1 - Labs CBC & Chem 7: 05/10/25 05:10 05/10/25 05:10 Labs: Abnormal Lab Results - Last 24 Hours (Table) 05/08/25 05/10/25 05/10/25 Range/Units 07:26 05:10 05:10 RBC (4.40-5.60) X 10*6/uL Hgb (13.0-17.0) g/dL Hct (39.6-50.0) % RDW (11.5-14.5) % Anion Gap 12.10 H (4.00-12.00) mmol/L Est GFR (CKD-EPI) 57 L (>=60) BUN/Creatinine Ratio 10.77 L (12.00-20.00) Ratio Hemoglobin A1c 7.4 H (<=6.0) % Magnesium 1.4 L (1.5-2.4) mg/dL Unconjugated Bilirubin >0.10 L (0.20-1.00) mg/dL Albumin/Globulin Ratio 1.44 L (1.60-3.17) Ratio Triglycerides 199.00 H (0.00-149.00) mg/dL HDL Cholesterol 37.50 L (40.00-60.00) mg/dL 05/10/25 Range/Units 05:10 RBC 3.98 L (4.40-5.60) X 10*6/uL Hgb 12.0 L (13.0-17.0) g/dL Hct 37.1 L (39.6-50.0) % RDW 16.2 H (11.5-14.5) % Anion Gap (4.00-12.00) mmol/L Est GFR (CKD-EPI) (>=60) BUN/Creatinine Ratio (12.00-20.00) Ratio Hemoglobin A1c (<=6.0) % Magnesium (1.5-2.4) mg/dL Unconjugated Bilirubin (0.20-1.00) mg/dL Albumin/Globulin Ratio (1.60-3.17) Ratio Triglycerides (0.00-149.00) mg/dL HDL Cholesterol (40.00-60.00) mg/dL
--- NOTE | 2025-05-11 02:30 | P.CNNES ---
History of Present Illness Consult date: 05/10/25 Requesting physician: Artem Nevarez Reason for Consult: generalized weakness History of Present Illness: Patient is a 74-year-old male with history of dementia came to the hospital 2 days ago, 05/08/2025 at 6:40 AM for a fall. He lives with his and uses walker. I spoke to patient's on the phone, who provided the history. Patient apparently has gone to a campground at [facility] in [facility]. He was walking without his walker when he felt tired and he tried to sit down on the ground, but instead he fell down on the face. He did not pass out. He did feel slightly dizzy before he fell down, but was not too long. Patient's states that he had a "dementia moment". The car battery had gone and they had called the [employer]. Apparently they did not come for few hours. Patient apparently walked out of the camp at 4 AM, trying to let the tow truck know where they were at, but patient's found him at 5:20 AM on the ground, waving his hands to her. Patient's mentions that he used to use a cane after his stroke 8 years ago that affected his left side of the body. However he has been using walker for the last 6 months and also gets PT. He just got out of [facility] about 2 months ago. Patient's blood tests shows normal WBC hemoglobin 12.0 platelets are normal. PT PTT normal, electrolytes are normal, renal functions, hepatic panel is normal. Troponin is mildly positive. UA is negative. TSH is normal. B12 443 and folic acid 10.30. Facial, brain and cervical spine CT showed no acute intracranial process. Nonspecific white matter changes, likely secondary to chronic small vessel ischemic disease. No acute facial bone fracture. No evidence of cervical spine fracture. Mild multilevel degenerative disc disease. Chest x- ray showed no acute cardiopulmonary process. EKG showed sinus rhythm with occasional supraventricular premature complexes. Patient has been seen by myself on 04/28/2021 for TIA. It was felt patient had near syncopal spell likely due to uncontrolled blood pressure, hypertension. Patient has history of strokes and TIA with minimal left residual spasticity. Hyperlipidemia. Home medications include aspirin 81 mg, Plavix 75 mg, Lipitor 80 mg sertraline 100 mg, memantine 5 mg twice daily, amlodipine. Patient denies any history of tobacco or alcohol use. patient has history of stroke 8 years ago which affected left side of the body. Patient has history of dementia for last few years, follows up Dr. Mcghee. Patient has history of frequent falls for the last 3 years. He can follow about once a month, or every other month or even twice a month. Patient's believes that he does not do exercises therefore has losses muscles. No history of diabetes. Patient had a carotid stent placed on the right side for 90% blockage, at [facility]. Now it is open about 55%. Review of Systems all pertinent positive and negative review of systems patient the HPI, otherwise unremarkable. Past Medical History Past Medical History: COPD, CVA/TIA, Eye Disorder, GERD/Reflux, Hyperlipidemia, Hypertension, Osteoarthritis (OA), Prostate Disorder, Renal Disease, Sleep Apnea/CPAP/BIPAP, Syncope Additional Past Medical History / Comment(s): Multiple TIAs, CVA 01/2017 with dysphagia-peg tube inserted and now out, has residual weakness lt arm/leg and some lt facial droop, chronic kidney disease stage III, BPH, Uti, ROSA has Cpap but does not tolerate it no longer using it, gastric ulcer, past hx R foot 3rd toe osteomylitis, arthritis multiple joints, past hx shingels, Loop recorder removed 12/30/21, dementia, fall History of Any Multi-Drug Resistant Organisms: None Reported Past Surgical History: Hernia Repair, Joint Replacement Additional Past Surgical History / Comment(s): 06/01/17 intracranial angioplasty- (pt stated "he has stents') HFH, EGD with peg tube insertion since removed, R inguinal hernia repair, R total knee arthroplasty, colonoscopies with last one in 2019-normal., soniya eye cat sx, loop recorder since removed. Past Anesthesia/Blood Transfusion Reactions: No Reported Reaction Past Psychological History: No Psychological Hx Reported Smoking Status: Former smoker Past Alcohol Use History: None Reported Past Drug Use History: None Reported - Past Family History Mother Family Medical History: CVA/TIA, Diabetes Mellitus, Hyperlipidemia, Hypertension Father Family Medical History: CVA/TIA, Hypertension Medications and Allergies Home Medications Medication Instructions Recorded Confirmed Type Atorvastatin [Lipitor] 80 mg PO HS 05/26/17 05/08/25 History Aspirin EC [Ecotrin Low Dose] 81 mg PO DAILY 02/12/18 05/08/25 History calcitrioL 0.25 mcg PO SUTUWETHFRSA 10/07/18 05/08/25 History Clopidogrel [Plavix] 75 mg PO DAILY 12/08/19 05/08/25 History Melatonin [Melatonin Tr] 10 mg PO HS 07/24/22 05/08/25 History Cetirizine HCl [Zyrtec] 10 mg PO DAILY 10/17/24 05/08/25 History Cholecalciferol (Vitamin D3) 50 mcg PO DAILY 10/17/24 05/08/25 History [Vitamin D3 (50 Mcg = 2000 Iu)] Memantine [Namenda] 5 mg PO BID 10/17/24 05/08/25 History Pantoprazole [Protonix] 40 mg PO BID 10/17/24 05/08/25 History Sertraline [Zoloft] 100 mg PO DAILY 10/17/24 05/08/25 History amLODIPine [Norvasc] 10 mg PO DAILY 12/29/24 05/08/25 History Docusate [Colace] 100 mg PO DAILY 05/08/25 05/08/25 History Allergies Allergy/AdvReac Type Severity Reaction Status Date / Time No Known Allergies Allergy Verified 05/08/25 10:59 Physical Examination - Vital Signs Vital Signs: Vital Signs Temp Pulse Resp BP BP Pulse Ox 05/10/25 14:17 98.2 F 69 14 133/70 94 L 05/10/25 07:10 98.1 F 62 17 161/89 95 05/10/25 00:37 98.1 F 63 18 160/80 95 05/09/25 19:29 98 F 65 18 118/69 95 Intake and Output 05/10/25 05/10/25 05/10/25 06:59 14:59 22:59 Intake Total 236 Output Total 550 250 Balance -550 -14 Intake: Oral 236 Output: Urine 550 250 Other: Voiding Method Diaper Diaper External Catheter External Catheter # Bowel Movements 1 Patient is an elderly Afro-Russian male, in no acute distress. Patient has a slightly lip swollen from the fall and some bruises on the face. Patient is alert awake, fairly oriented to time place and person. He states it is January and the year is 2024 and that he is in [facility] in [facility]. He knows name of the current president Mr. Wheeler. Speech and language functions are normal. Patient can name and repeat very well. No aphasia or dysarthria. Attention, concentration and fund of knowledge is limited. On cranial nerve examination, pupils are equal, round and reacting to light, visual fierro are full on confrontation, with no neglect on double simultaneous stimulation. Extraocular muscles are intact with no nystagmus. Face is symmetric, tongue protrudes to the midline. Palatal elevation and sensation normal, hearing is decreased and shoulder shrug normal, facial sensation normal. On muscle strength testing, there is no pronator drift and the strength is normal in arms and legs distally and proximally. Deep tendon reflexes are symmetric 1 at the biceps, 0 brachioradialis, 0 at the right knee, 2 on the left and plantars are flat. Sensory to touch is equal with no neglect on double simultaneous stimulation. Cerebellar function showed no ataxia for [id number] testing. No dysdiadochokinesia. No ataxia for [id number] testing on either side. Tone and bulk of muscles normal. Gait deferred.. On general examination, there is no carotid bruit or murmur, S1-S2 audible. Chest is clear on consultation. Abdomen is soft nontender. No organomegaly, bowel sounds present. Peripheral pulses are present. No peripheral edema. Results - Laboratory Findings CBC and BMP: 05/10/25 05:10 05/10/25 05:10 Abnormal Lab Findings: Abnormal Labs 05/08/25 05/08/25 05/08/25 07:26 07:26 07:26 RBC 3.77 L Hgb 11.9 L Hct 34.5 L RDW MPV 9.0 L Anion Gap BUN 23 H Creatinine 1.67 H Est GFR (CKD-EPI) BUN/Creatinine Ratio Glucose 191 H Hemoglobin A1c Magnesium 1.4 L Unconjugated Bilirubin Alkaline Phosphatase 151 H Troponin I 0.041 H* Albumin/Globulin Ratio Triglycerides HDL Cholesterol Urine Protein Urine Glucose (UA) 05/08/25 05/08/25 05/08/25 07:26 10:45 11:47 RBC Hgb Hct RDW MPV Anion Gap BUN Creatinine Est GFR (CKD-EPI) BUN/Creatinine Ratio Glucose Hemoglobin A1c Magnesium 1.4 L Unconjugated Bilirubin Alkaline Phosphatase Troponin I 0.038 H* Albumin/Globulin Ratio Triglycerides 199.00 H HDL Cholesterol 37.50 L Urine Protein Trace H Urine Glucose (UA) 1+ H 05/08/25 05/10/25 05/10/25 13:09 05:10 05:10 RBC Hgb Hct RDW MPV Anion Gap 12.10 H BUN Creatinine Est GFR (CKD-EPI) 57 L BUN/Creatinine Ratio 10.77 L Glucose Hemoglobin A1c 7.4 H Magnesium Unconjugated Bilirubin >0.10 L Alkaline Phosphatase Troponin I 0.039 H* Albumin/Globulin Ratio 1.44 L Triglycerides HDL Cholesterol Urine Protein Urine Glucose (UA) 05/10/25 05:10 RBC 3.98 L Hgb 12.0 L Hct 37.1 L RDW 16.2 H MPV Anion Gap BUN Creatinine Est GFR (CKD-EPI) BUN/Creatinine Ratio Glucose Hemoglobin A1c Magnesium Unconjugated Bilirubin Alkaline Phosphatase Troponin I Albumin/Globulin Ratio Triglycerides HDL Cholesterol Urine Protein Urine Glucose (UA) Assessment and Plan Assessment: * 74-year-old male with history of frequent falls. Patient came with a fall while walking without his walker. Patient has chronic balance issue, likely related to his previous strokes, or age-related gait imbalance. * History of CVA with some minimal residual left-sided deficits. CT head showed multiple old lacunar infarcts. * Dementia * History of right ICA stent * Hypertension * Hyperlipidemia * Sleep apnea Plan: * Continue aspirin, Plavix and Lipitor 80 mg. * Continue Namenda 5 mg twice a day for dementia. * Await 2-D echo. * Carotid Doppler revealed no hemodynamically significant stenosis on either side. Antegrade flow in both vertebral arteries. * Hemoglobin A1c 7.4 * B12 443, folate 10.30, TSH 3.65. * PT OT evaluate gait. Recommend patient always uses walker to prevent falls. * Recommend patient follow up with his neurologist Dr. Mcghee's outpatient in 1- 2 weeks. * Dr. Carlos Young to resume neurology service in the morning. * Thank you for the consult.
--- NOTE | 2025-05-11 12:54 | P.PN ---
Subjective HISTORY OF PRESENT ILLNESS: 74-year-old -[place] past medical history of CVA, hypertension diabetes dyslipidemia. Known to Dr. Card. Presented to the hospital because of fall at home. Patient was Up all night watching TV , by 3:00 he was laying down and went up to go to the bathroom and fell He reports that he was weak and he attributes it to his recent fall He denies any loss of consciousness however. On presentation he does have a small abrasion on his right forehead. CT face did not show any acute process. CT head did not show any acute changes [employer] Worker consulted for mild elevated troponin which has a flat pattern. Patient's BUN is 23, creatinine is 1.6. EKG shows sinus rhythm with nonspecific ST changes with T wave inversions in V5 V6. When compared to older EKGs from 2022 they appears very similar. 05/10/2025 BP 160/89, heart rate 62, mild complaint of supine hypertension Orthostatic vital signs were within acceptable range Denies any chest pain chest pressure. Reports feeling weak and is very sleepy today. TSH is 3.6, LDL is 81, B12 folate WNL, NT-proBNP 155, A1c 7.4 05/11/2025 Patient examined this morning at the bedside. Patient currently denies chest pain or pressure. He denies shortness of breath. Telemetry reveals sinus mechanism. Blood pressure in the 150s. Carotid Doppler performed with no evidence of significant stenosis bilaterally. PHYSICAL EXAM: VITAL SIGNS: Reviewed. GENERAL: Well-developed in no acute distress. NECK: Supple. No JVD or thyromegaly LUNGS: Respirations even and unlabored. Lungs essentially clear to auscultation bilaterally. HEART: Regular rate and rhythm. S1 and S2 heard. EXTREMITIES: Normal range of motion. No clubbing or cyanosis. Peripheral pulses intact. No lower extremity edema ASSESSMENT: Status post mechanical fall without evidence of syncope Acute kidney injury Minimally elevated troponins, likely secondary to JENNIFER, no evidence of myocardial injury or ischemia History of CVA History of hypertension History of hyperlipidemia Diabetes PLAN: 2D echo has been ordered. Await results. Patient's fall appears mechanical. Patient denies any loss of consciousness. Patient does not require event monitor at the time of discharge Continue current cardiac medications Patient is currently stable for discharge from a cardiac standpoint Nurse practitioner note has been reviewed by physician. Signing provider agrees with the documented findings, assessment, and plan of care documented by [employer] HANDLER as a scribe. Objective - Vital Signs Vital signs: Vital Signs Temp 98.1 F 05/11/25 07:00 Pulse 59 L 05/11/25 07:00 Resp 17 05/11/25 07:00 BP 152/84 05/11/25 07:00 Pulse Ox 98 05/11/25 07:00 FiO2 Intake & Output 05/10/25 05/11/25 05/11/25 18:59 06:59 18:59 Intake Total 236 Output Total 250 550 Balance -14 -550 Intake: Oral 236 Output: Urine 250 550 Other: Voiding Method Diaper Diaper Diaper External Catheter External Catheter External Catheter - Labs CBC & Chem 7: 05/10/25 05:10 05/10/25 05:10 Labs: Abnormal Lab Results - Last 24 Hours (Table) 05/10/25 Range/Units 05:10 Hemoglobin A1c 7.4 H (<=6.0) %
--- NOTE | 2025-05-11 13:07 | CA ---
Transthoracic Echo Report Name: Abram Sesay Age: 74 Gender: M : 1950 Exam Date: 05/11/2025 08:52 Exam Location: [facility] Ht (in): 74 Wt (lb): 215 Ordering Physician: Anton Layne MD ([id number]) Attending/Referring Phys: Patient Care Assistant Angle Luna RDCS Procedure CPT: Indications: Syncope Cardiac Hx: Technical Quality: Fair Contrast 1: Total Dose (mL): Contrast 2: Total Dose (mL): MEASUREMENTS (Male / Female) Normal Values 2D ECHO LV Diastolic Diameter PLAX 5.0 cm 4.2 - 5.9 / 3.9 - 5.3 cm LV Systolic Diameter PLAX 3.1 cm IVS Diastolic Thickness 1.5 cm 0.6 - 1.0 / 0.6 - 0.9 cm LVPW Diastolic Thickness 1.4 cm 0.6 - 1.0 / 0.6 - 0.9 cm LV Relative Wall Thickness 0.6 RV Internal Dim ED PLAX 3.0 cm LA Systolic Diameter LX 3.3 cm 3.0 - 4.0 / 2.7 - 3.8 cm LV Diastolic Volume MOD BP 59.7 cm??? 67 - 155 / 56 - 104 cm??? LV Systolic Volume MOD BP 39.2 cm??? 22 - 58 / 19 - 49 cm??? LV Ejection Fraction MOD BP 34.4 % >= 55 % LV Cardiac Index MOD BP 478.9 cm???/min???m??? LV Diastolic Volume MOD 4C 59.3 cm??? LV Systolic Volume MOD 4C 41.1 cm??? LV Ejection Fraction MOD 4C 30.6 % LV Cardiac Index MOD 4C 423.7 cm???/min???m??? LV Diastolic Length 4C 7.2 cm LV Systolic Length 4C 6.7 cm LV Diastolic Volume MOD 2C 55.1 cm??? LV Systolic Volume MOD 2C 32.0 cm??? LV Ejection Fraction MOD 2C 42.0 % LV Cardiac Index MOD 2C 540.7 cm???/min???m??? LV Diastolic Length 2C 7.9 cm LV Systolic Length 2C 6.7 cm M-MODE Aortic Root Diameter MM 3.7 cm LA Systolic Diameter MM 4.3 cm LA Ao Ratio MM 1.1 AV Cusp Separation MM 2.4 cm DOPPLER Mitral E Point Velocity 66.2 cm/s Mitral A Point Velocity 105.7 cm/s Mitral E to A Ratio 0.6 MV Deceleration Time 304.9 ms MV E' Velocity 4.7 cm/s Mitral E to MV E' Ratio 14.0 TR Peak Velocity 189.5 cm/s TR Peak Gradient 14.4 mmHg Right Ventricular Systolic Press 24.4 mmHg FINDINGS Left Ventricle Left ventricular ejection fraction is estimated at 45 to 50 %. Moderately increased septal wall thickness. Left ventricular cavity size normal. Mildly reduced global left ventricular systolic function. Right Ventricle Mild right ventricular dilatation. Right ventricular systolic pressure within normal limits. Right Atrium Mild right atrial dilatation. Left Atrium Mild left atrial dilatation. Mitral Valve Structurally normal mitral valve. Mitral valve thickened. Mild mitral regurgitation. Aortic Valve Trileaflet aortic valve. No aortic valve stenosis or regurgitation. Tricuspid Valve Structurally normal tricuspid valve. Trace to mild tricuspid regurgitation. No tricuspid stenosis. Pulmonic Valve Structurally normal pulmonic valve. Trace pulmonic regurgitation. Pericardium No pericardial or pleural effusion. Aorta Normal size aortic root and proximal ascending aorta. CONCLUSIONS Mildly impaired LV function with EF at 45 to 50% Previewed by: Dr. Baron Moctezuma MD (Electronically Signed) Final Date: 11 May 2025 13:06
--- NOTE | 2025-05-11 14:37 | P.PN ---
Subjective This is a pleasant 74 years old -Greenlandic male with past medical history of multiple medical problems as below Information was obtained with the help of family at bedside. Patient was Up all night watching TV , by 3:00 he was laying down and went up to go to the bathroom and fell 30 feet lab 118 for prescription refill we are down e-prescribing please contact your pharmacy with any refills controlled substances will not be filled after hours and will require an appointment this call please call BMP did not order Patient feels some dizziness before he fell which was nonspecific but he denies chest pain or dyspnea. No headache or new weakness or numbness. No abdominal pain vomiting diarrhea no dysuria or urgency. However he always have incontinence of urine Patient with no fever. Blood pressure stable Labs reviewed showing creatinine 1.6 which is at baseline hemoglobin 11.9. Liver enzymes unremarkable. Troponin is mildly elevated 0.041. Chest x-ray showing no acute cardiopulmonary process. And neck CT scan showing no acute process or fracture. CAT scan of the face showed no acute intracranial process nonspecific white m atter changes likely secondary to chronic small vessel ischemic changes. There is no acute facial bone fracture with no evidence of cervical spine fractures. Mild multilevel degenerative disc disease. 05/09 05/09 Patient was little sleepy today No chest pain or abdominal pain He has constipation and requesting laxative we will going to order Colace and Dulcolax PT and OT evaluation requested Also will order workup with TSH B12 folate, hemoglobin A1c and creatinine kinase Cardiology ordered echocardiogram carotid Doppler exam recommended neurological consult w 05/10 pt feels fine today no new complaint waiting for physical therapy evaluation further work up is pending Objective - Vital Signs Vital signs: Vital Signs Temp 98.1 F 05/10/25 07:10 Pulse 62 05/10/25 07:10 Resp 17 05/10/25 07:10 BP 161/89 05/10/25 07:10 Pulse Ox 95 05/10/25 07:10 FiO2 Intake & Output 05/09/25 05/10/25 05/10/25 18:59 06:59 18:59 Intake Total 358 118 Output Total 168 800 Balance 190 -800 118 Intake: Oral 358 118 Output: Urine 800 Post Void Residual 168 Other: Voiding Method Diaper Diaper Diaper External Catheter External Catheter External Catheter # Voids 1 # Bowel Movements 1 - Exam -GENERAL: The patient is alert and oriented x3, not in any acute distress. Well developed, well nourished. Generally weak HEENT: Pupils are round and equally reacting to light. EOMI. No scleral icterus. No conjunctival pallor. Normocephalic, atraumatic. No pharyngeal erythema. No thyromegaly. CARDIOVASCULAR: S1 and S2 present. No murmurs, rubs, or gallops. PULMONARY: Chest is clear to auscultation, no wheezing , no crackles. ABDOMEN: Soft, nontender, nondistended, normoactive bowel sounds. No palpable organomegaly. MUSCULOSKELETAL: No joint swelling or deformity. EXTREMITIES: No cyanosis, clubbing, or pedal edema. NEUROLOGICAL: Gross neurological examination did not reveal any focal deficits. SKIN: No rashes. no petechiae. - Labs CBC & Chem 7: 05/10/25 05:10 05/10/25 05:10 Labs: Abnormal Lab Results - Last 24 Hours (Table) 05/08/25 05/10/25 05/10/25 Range/Units 07:26 05:10 05:10 RBC 3.98 L (4.40-5.60) X 10*6/uL Hgb 12.0 L (13.0-17.0) g/dL Hct 37.1 L (39.6-50.0) % RDW 16.2 H (11.5-14.5) % Anion Gap 12.10 H (4.00-12.00) mmol/L Est GFR (CKD-EPI) 57 L (>=60) BUN/Creatinine Ratio 10.77 L (12.00-20.00) Ratio Magnesium 1.4 L (1.5-2.4) mg/dL Unconjugated Bilirubin >0.10 L (0.20-1.00) mg/dL Albumin/Globulin Ratio 1.44 L (1.60-3.17) Ratio Triglycerides 199.00 H (0.00-149.00) mg/dL HDL Cholesterol 37.50 L (40.00-60.00) mg/dL Assessment and Plan Assessment: Fall at home without syncope. Most likely secondary to generalized weakness Elevated troponin. Thought secondary to poor creatinine clearance per equine vet noncardiac in origin Chronic diarrhea Diabetes mellitus Hypertension Hyperlipidemia History of osteoarthritis History of CVA GERD BPH Sleep apnea History of syncope Plan: Aspirin Cardiology team consult Physical therapy evaluation Check TSH, vitamin B12 folate hemoglobin A1c and creatinine kinase Check echo, carotid duplex Patient may be evaluated for possible placement upon discharge. Labs and medication were reviewed.. Continue same treatment. Continue with symptomatic treatment. Resume home medication. Monitor lytes and vitals. DVT and GI prophylaxis. Further recommendations depends on the clinical course of the patient DVT prophylaxis: Subcutaneous heparin GI Prophylaxis: Pepcid PT/OT: Pending Prognosis is guarded
--- NOTE | 2025-05-12 07:55 | P.PN ---
Subjective Progress Note Date: 05/11/25 This is a pleasant 74 years old -Togolese male with past medical history of multiple medical problems as below Information was obtained with the help of family at bedside. Patient was Up all night watching TV , by 3:00 he was laying down and went up to go to the bathroom and fell 30 feet lab 118 for prescription refill we are down e-prescribing please contact your pharmacy with any refills controlled substances will not be filled after hours and will require an appointment this call please call BMP did not order Patient feels some dizziness before he fell which was nonspecific but he denies chest pain or dyspnea. No headache or new weakness or numbness. No abdominal pain vomiting diarrhea no dysuria or urgency. However he always have incontinence of urine Patient with no fever. Blood pressure stable Labs reviewed showing creatinine 1.6 which is at baseline hemoglobin 11.9. Liver enzymes unremarkable. Troponin is mildly elevated 0.041. Chest x-ray showing no acute cardiopulmonary process. And neck CT scan showing no acute process or fracture. CAT scan of the face showed no acute intracranial process nonspecific white matter changes likely secondary to chronic small vessel ischemic changes. There is no acute facial bone fracture with no evidence of cervical spine fractures. Mild multilevel degenerative disc disease. 05/09 Patient was little sleepy today No chest pain or abdominal pain He has constipation and requesting laxative we will going to order Colace and Dulcolax PT and OT evaluation requested Also will order workup with TSH B12 folate, hemoglobin A1c and creatinine kinase Cardiology ordered echocardiogram carotid Doppler exam recommended neurological consult w 05/10 pt feels fine today no new complaint waiting for physical therapy evaluation further work up is pending 05/11/2025 Patient is evaluated today in follow up sitting up in the chair. Currently has no acute complaints. Plan is for subacute rehab, patient requires 3 night inpatient hospital stay before he can discharge to rehab and has been made inpatient today. His renal function has improved and BUN is 14, creatinine 1.3. Carotid doppler reveals no hemodynamically significant stenosis. Echocardiogram reveals EF 45-50%. Review of Systems Constitutional: Denied any fatigue denied any fever. Cardio vascular: denied any chest pain, palpitations Gastrointestinal: denied any nausea, vomiting, diarrhea Pulmonary: Denied any shortness of breath cough Neurologic denied any new focal deficits All inpatient medications were reviewed and appropriate changes in these medications as dictated in the interval history and assessment and plan. PHYSICAL EXAMINATION: GENERAL: The patient is alert and oriented x3, not in any acute distress. Well developed, well nourished. HEENT: Pupils are round and equally reacting to light. EOMI. No scleral icterus. No conjunctival pallor. Normocephalic, atraumatic. No pharyngeal erythema. No thyromegaly. CARDIOVASCULAR: S1 and S2 present. No murmurs, rubs, or gallops. PULMONARY: Chest is clear to auscultation, no wheezing or crackles. ABDOMEN: Soft, nontender, nondistended, normoactive bowel sounds. No palpable o rganomegaly. MUSCULOSKELETAL: No joint swelling or deformity. EXTREMITIES: No cyanosis, clubbing, or pedal edema. NEUROLOGICAL: Gross neurological examination did not reveal any focal deficits. SKIN: No rashes. Assessment Fall at home without syncope. Most likely secondary to generalized weakness Elevated troponin. Thought secondary to poor creatinine clearance per linux consultant noncardiac in origin Acute kidney injury, dehydrational History of CVA with slight left sided deficits History of right ICA stent Dementia maintained on namenda Chronic diarrhea Diabetes mellitus Hypertension Hyperlipidemia History of osteoarthritis GERD BPH Sleep apnea History of syncope GI prophylaxis DVT prophylaxis Full Code Plan Continue aspirin/plavix and high dose lipitor Echocardiogram reviewed awaiting further recommendations from cardiology consult Neurology following Orthostatics ordered Pt/OT consult recommending PIERRE and patient needs 3 night IP hospital stay and he has been made IP today Monitor renal function O.P neurology following on discharge The impression and plan of care has been dictated by Teresa Nicole Nurse Practitioner as directed. Dr. Shira MD I have performed a history and physical examination and medical decision making of this patient, discussed the same with the dictator, and agree with the dictators assessment and plan as written, documented as a scribe. Based on total visit time, I have performed more than 50% of this visit. Objective - Vital Signs Vital signs: Vital Signs Temp 98.0 F 05/11/25 15:00 Pulse 78 05/11/25 15:00 Resp 17 05/11/25 15:00 BP 163/77 05/11/25 15:00 Pulse Ox 97 05/11/25 15:00 FiO2 Intake & Output 05/10/25 05/11/25 05/11/25 18:59 06:59 18:59 Intake Total 236 Output Total 250 550 Balance -14 -550 Intake: Oral 236 Output: Urine 250 550 Other: Voiding Method Diaper Diaper Diaper External Catheter External Catheter External Catheter # Bowel Movements 0 - Labs CBC & Chem 7: 05/10/25 05:10 05/10/25 05:10 Assessment and Plan Time with Patient: Less than 30
--- NOTE | 2025-05-12 11:56 | P.PN ---
Subjective HISTORY OF PRESENT ILLNESS: 74-year-old -Montenegrin past medical history of CVA, hypertension diabetes dyslipidemia. Known to Dr. Card. Presented to the hospital because of fall at home. Patient was Up all night watching TV , by 3:00 he was laying down and went up to go to the bathroom and fell He reports that he was weak and he attributes it to his recent fall He denies any loss of consciousness however. On presentation he does have a small abrasion on his right forehead. CT face did not show any acute process. CT head did not show any acute changes Costumed Character consulted for mild elevated troponin which has a flat pattern. Patient's BUN is 23, creatinine is 1.6. EKG shows sinus rhythm with nonspecific ST changes with T wave inversions in V5 V6. When compared to older EKGs from 2022 they appears very similar. 05/10/2025 BP 160/89, heart rate 62, mild complaint of supine hypertension Orthostatic vital signs were within acceptable range Denies any chest pain chest pressure. Reports feeling weak and is very sleepy today. TSH is 3.6, LDL is 81, B12 folate WNL, NT-proBNP 155, A1c 7.4 05/11/2025 Patient examined this morning at the bedside. Patient currently denies chest pain or pressure. He denies shortness of breath. Telemetry reveals sinus mechanism. Blood pressure in the 150s. Carotid Doppler performed with no evidence of significant stenosis bilaterally. 05/12/2025 Patient examined this morning at bedside. Patient currently denies chest pain or pressure. He denies shortness of breath. Vital signs are stable. Patient is awaiting discharge to [facility] cardiogram performed revealing ejection fraction 45 to 50% with mild MR and trace to mild TR PHYSICAL EXAM: VITAL SIGNS: Reviewed. GENERAL: Well-developed in no acute distress. NECK: Supple. No JVD or thyromegaly LUNGS: Respirations even and unlabored. Lungs essentially clear to auscultation bilaterally. HEART: Regular rate and rhythm. S1 and S2 heard. EXTREMITIES: Normal range of motion. No clubbing or cyanosis. Peripheral pulses intact. No lower extremity edema ASSESSMENT: Status post mechanical fall without evidence of syncope Acute kidney injury Minimally elevated troponins, likely secondary to JENNIFER, no evidence of myocardial injury or ischemia History of CVA History of hypertension History of hyperlipidemia Diabetes PLAN: 2D echo obtained and reviewed Patient's fall appears mechanical. Patient denies any loss of consciousness. Patient does not require event monitor at the time of discharge Continue current cardiac medications Patient is currently stable for discharge from a cardiac standpoint We will sign off. Please reconsult if needed. Nurse practitioner note has been reviewed by physician. Signing provider agrees with the documented findings, assessment, and plan of care documented by BOOK CLEANER as a scribe. Objective - Vital Signs Vital signs: Vital Signs Temp 98.1 F 05/12/25 07:00 Pulse 58 L 05/12/25 07:00 Resp 16 05/12/25 07:00 BP 150/78 05/12/25 07:00 Pulse Ox 94 L 05/12/25 07:00 FiO2 Intake & Output 05/11/25 05/12/25 05/12/25 18:59 06:59 18:59 Intake Total 118 Output Total 700 400 Balance -700 -400 118 Intake: Oral 118 Output: Urine 700 400 Other: Voiding Method Diaper Diaper Diaper External Catheter External Catheter External Catheter # Bowel Movements 0 - Labs CBC & Chem 7: 05/10/25 05:10 05/10/25 05:10
--- NOTE | 2025-05-12 20:49 | P.PN ---
Subjective Progress Note Date: 05/12/25 This is a pleasant 74 years old -Czech male with past medical history of multiple medical problems as below Information was obtained with the help of family at bedside. Patient was Up all night watching TV , by 3:00 he was laying down and went up to go to the bathroom and fell 30 feet lab 118 for prescription refill we are down e-prescribing please contact your pharmacy with any refills controlled substances will not be filled after hours and will require an appointment this call please call BMP did not order Patient feels some dizziness before he fell which was nonspecific but he denies chest pain or dyspnea. No headache or new weakness or numbness. No abdominal pain vomiting diarrhea no dysuria or urgency. However he always have incontinence of urine Patient with no fever. Blood pressure stable Labs reviewed showing creatinine 1.6 which is at baseline hemoglobin 11.9. Liver enzymes unremarkable. Troponin is mildly elevated 0.041. Chest x-ray showing no acute cardiopulmonary process. And neck CT scan showing no acute process or fracture. CAT scan of the face showed no acute intracranial process nonspecific white matter changes likely secondary to chronic small vessel ischemic changes. There is no acute facial bone fracture with no evidence of cervical spine fractures. Mild multilevel degenerative disc disease. 05/09 Patient was little sleepy today No chest pain or abdominal pain He has constipation and requesting laxative we will going to order Colace and Dulcolax PT and OT evaluation requested Also will order workup with TSH B12 folate, hemoglobin A1c and creatinine kinase Cardiology ordered echocardiogram carotid Doppler exam recommended neurological consult w 05/10 pt feels fine today no new complaint waiting for physical therapy evaluation further work up is pending 05/11/2025 Patient is evaluated today in follow up sitting up in the chair. Currently has no acute complaints. Plan is for subacute rehab, patient requires 3 night inpatient hospital stay before he can discharge to rehab and has been made inpatient today. His renal function has improved and BUN is 14, creatinine 1.3. Carotid doppler reveals no hemodynamically significant stenosis. Echocardiogram reveals EF 45-50%. 05/12/2025 Patient evaluated today in follow up. He is resting in bed comfortably with no acute complaints. He is pending discharge to [facility]. Review of Systems Constitutional: Denied any fatigue denied any fever. Cardio vascular: denied any chest pain, palpitations Gastrointestinal: denied any nausea, vomiting, diarrhea Pulmonary: Denied any shortness of breath cough Neurologic denied any new focal deficits All inpatient medications were reviewed and appropriate changes in these medications as dictated in the interval history and assessment and plan. PHYSICAL EXAMINATION: GENERAL: The patient is alert and oriented x3, not in any acute distress. Well developed, well nourished. HEENT: Pupils are round and equally reacting to light. EOMI. No scleral icterus. No conjunctival pallor. Normocephalic, atraumatic. No pharyngeal erythema. No thyromegaly. CARDIOVASCULAR: S1 and S2 present. No murmurs, rubs, or gallops. PULMONARY: Chest is clear to auscultation, no wheezing or crackles. ABDOMEN: Soft, nontender, nondistended, normoactive bowel sounds. No palpable organomegaly. MUSCULOSKELETAL: No joint swelling or deformity. EXTREMITIES: No cyanosis, clubbing, or pedal edema. NEUROLOGICAL: Gross neurological examination did not reveal any focal deficits. SKIN: No rashes. Assessment Fall at home without syncope. Most likely secondary to generalized weakness Elevated troponin. Thought secondary to poor creatinine clearance per peanut shaker noncardiac in origin Acute kidney injury, dehydrational History of CVA with slight left sided deficits History of right ICA stent Dementia maintained on namenda Chronic diarrhea Diabetes mellitus Hypertension Hyperlipidemia History of osteoarthritis GERD BPH Sleep apnea History of syncope GI prophylaxis DVT prophylaxis Full Code Plan Continue aspirin/plavix and high dose lipitor Echocardiogram reviewed awaiting further recommendations from cardiology consult Neurology following Orthostatics ordered Pt/OT consult recommending PIERRE and patient needs 3 night IP hospital stay earliest he can discharge is 05/14/2025. Monitor renal function O.P neurology following on discharge The impression and plan of care has been dictated by Teresa Nicole, Nurse Practitioner as directed. Dr. Shira MD I have performed a history and physical examination and medical decision making of this patient, discussed the same with the dictator, and [facility] and plan as written, documented as a scribe. Based on total visit time, I have performed more than 50% of this visit. Objective - Vital Signs Vital signs: Vital Signs Temp 98.1 F 05/12/25 18:53 Pulse 81 05/12/25 18:53 Resp 18 05/12/25 18:53 BP 144/82 05/12/25 18:53 Pulse Ox 97 05/12/25 18:53 FiO2 Intake & Output 05/12/25 05/12/25 05/13/25 06:59 18:59 06:59 Intake Total 658 Output Total 400 200 Balance -400 458 Intake: Oral 658 Output: Urine 400 200 Other: Voiding Method Diaper Diaper External Catheter External Catheter # Voids 3 # Bowel Movements 1 - Labs CBC & Chem 7: 05/10/25 05:10 05/10/25 05:10 Assessment and Plan Time with Patient: Less than 30
[2025-05-13 08:11] LABS: Anion Gap 11.20 mmol/L (4.00-12.00); BUN/Creat Ratio 12.79 Ratio (12.00-20.00); Blood Urea Nitrogen 17.9 mg/dL (9.0-27.0); Calcium 9.2 mg/dL (8.7-10.3); Carbon Dioxide 23.8 mmol/L (21.6-31.8); Chloride 104 mmol/L (96-109); Glucose 112 mg/dL (70-110); Potassium 3.6 mmol/L (3.5-5.5); Sodium 139 mmol/L (135-145)
--- NOTE | 2025-05-13 15:54 | P.PN ---
Subjective Progress Note Date: 05/13/25 This is a pleasant 74 years old -Montenegr[place] male with past medical history of multiple medical problems as below Information was obtained with the help of family at bedside. Patient was Up all night watching TV , by 3:00 he was laying down and went up to go to the bathroom and fell 30 feet lab 118 for prescription refill we are down e-prescribing please contact your pharmacy with any refills controlled substances will not be filled after hours and will require an appointment this call please call BMP did not order Patient feels some dizziness before he fell which was nonspecific but he denies chest pain or dyspnea. No headache or new weakness or numbness. No abdominal pain vomiting diarrhea no dysuria or urgency. However he always have incontinence of urine Patient with no fever. Blood pressure stable Labs reviewed showing creatinine 1.6 which is at baseline hemoglobin 11.9. Liver enzymes unremarkable. Troponin is mildly elevated 0.041. Chest x-ray showing no acute cardiopulmonary process. And neck CT scan showing no acute process or fracture. CAT scan of the face showed no acute intracranial process nonspecific white matter changes likely secondary to chronic small vessel ischemic changes. There is no acute facial bone fracture with no evidence of cervical spine fractures. Mild multilevel degenerative disc disease. 05/09 Patient was little sleepy today No chest pain or abdominal pain He has constipation and requesting laxative we will going to order Colace and Dulcolax PT and OT evaluation requested Also will order workup with TSH B12 folate, hemoglobin A1c and creatinine kinase Cardiology ordered echocardiogram carotid Doppler exam recommended neurological consult w 05/10 pt feels fine today no new complaint waiting for physical therapy evaluation further work up is pending 05/11/2025 Patient is evaluated today in follow up sitting up in the chair. Currently has no acute complaints. Plan is for subacute rehab, patient requires 3 night inpatient hospital stay before he can discharge to rehab and has been made inpatient today. His renal function has improved and BUN is 14, creatinine 1.3. Carotid doppler reveals no hemodynamically significant stenosis. Echocardiogram reveals EF 45-50%. 05/12/2025 Patient evaluated today in follow up. He is resting in bed comfortably with no acute complaints. He is pending discharge to [facility]. 05/13/2025 Patient evaluated today in follow up on the medical floor. Currently resting in bed with no acute complaints. Cardiology has signed off. Pending discharge to [facility]. Has been medically cleared awaiting 3 night inpatient hospital stay to be completed Review of Systems Constitutional: Denied any fatigue denied any fever. Cardio vascular: denied any chest pain, palpitations Gastrointestinal: denied any nausea, vomiting, diarrhea Pulmonary: Denied any shortness of breath cough Neurologic denied any new focal deficits All inpatient medications were reviewed and appropriate changes in these medications as dictated in the interval history and assessment and plan. PHYSICAL EXAMINATION: GENERAL: The patient is alert and oriented x3, not in any acute distress. Well developed, well nourished. HEENT: Pupils are round and equally reacting to light. EOMI. No scleral icterus. No conjunctival pallor. Normocephalic, atraumatic. No pharyngeal erythema. No thyromegaly. CARDIOVASCULAR: S1 and S2 present. No murmurs, rubs, or gallops. PULMONARY: Chest is clear to auscultation, no wheezing or crackles. ABDOMEN: Soft, nontender, nondistended, normoactive bowel sounds. No palpable organomegaly. MUSCULOSKELETAL: No joint swelling or deformity. EXTREMITIES: No cyanosis, clubbing, or pedal edema. NEUROLOGICAL: Gross neurological examination did not reveal any focal deficits. SKIN: No rashes. Assessment Fall at home without syncope. Most likely secondary to generalized weakness Elevated troponin. Thought secondary to poor creatinine clearance per administrative fellow noncardiac in origin Acute kidney injury, dehydrational History of CVA with slight left sided deficits History of right ICA stent Dementia maintained on namenda Chronic diarrhea Diabetes mellitus Hypertension Hyperlipidemia History of osteoarthritis GERD BPH Sleep apnea History of syncope GI prophylaxis DVT prophylaxis Full Code Plan Continue aspirin/plavix and high dose lipitor Echocardiogram reviewed awaiting further recommendations from cardiology consult Neurology following Orthostatics ordered Pt/OT consult recommending PIERRE and patient needs 3 night IP hospital stay earliest he can discharge is 05/14/2025. Monitor renal function O.P neurology following on discharge The impression and plan of care has been dictated by Teresa Nicole Nurse Practitioner as directed. Dr. Shira MD I have performed a history and physical examination and medical decision making of this patient, discussed the same with the dictator, and agree with the dictators assessment and plan as written, documented as a scribe. Based on total visit time, I have performed more than 50% of this visit. Objective - Vital Signs Vital signs: Vital Signs Temp 97.9 F 05/13/25 13:02 Pulse 60 05/13/25 14:00 Resp 17 05/13/25 14:00 BP 138/74 05/13/25 13:02 Pulse Ox 96 05/13/25 13:02 FiO2 Intake & Output 05/12/25 05/13/25 05/13/25 18:59 06:59 18:59 Intake Total 658 660 Output Total 200 500 500 Balance 458 -500 160 Intake: Oral 658 660 Output: Urine 200 500 500 Other: Voiding Method Diaper Diaper Diaper External Catheter External Catheter External Catheter # Voids 3 1 # Bowel Movements 1 1 - Labs CBC & Chem 7: 05/10/25 05:10 05/13/25 04:46 Labs: Abnormal Lab Results - Last 24 Hours (Table) 05/13/25 Range/Units 04:46 Est GFR (CKD-EPI) 52 L (>=60) Glucose 112 H (70-110) mg/dL Assessment and Plan Time with Patient: Less than 30
[2025-05-14 07:59] VITALS: BP 162/82; PULSE 61; RESP 15; TEMP 97.9
--- NOTE | 2025-05-14 11:42 | P.DS ---
Providers Date of admission: 05/11/25 15:53 Attending physician: Miguel Church Consults: 05/09/25 19:23 Consult Physician Routine Consulting Provider: Vero Romero Consult Reason/Comments: generalized weakness Do you want consulting provider notified?: Yes, Notify in am Primary care physician: Rick Luke Hospital Course: Final Diagnosis Fall at home without syncope. Most likely secondary to generalized weakness Elevated troponin. Thought secondary to poor creatinine clearance per supervisor dials noncardiac in origin Acute kidney injury, dehydrational History of CVA with slight left sided deficits History of right ICA stent Dementia maintained on namenda Chronic diarrhea Diabetes mellitus Hypertension Hyperlipidemia History of osteoarthritis GERD BPH Sleep apnea History of syncope GI prophylaxis DVT prophylaxis Full Code Discharge Disposition Patient stable for discharge to [facility]. Patient has been cleared by all consultations. He will follow-up closely with his primary c ardiologist Dr. Card as well as with primary neurologist Dr. Sun on discharge. Patient to follow-up with his mobile patrol officer Dr. Dumont on discharge as well. Patient will continue all same home medications. Will recommend to continue on subcutaneous heparin every 12 hours until his activity level has increased and he is up ambulating. Recommend to repeat BMP and magnesium level in 2 to 3 days. Follow-up closely with his PCP Dr. Luke in 1 to 2 days. Total time taken in discharge planning greater than 35 minutes. Hospital Course This is a pleasant 74 years old -[place] male with medical history of hypertension, hyperlipidemia, diabetes mellitus, GERD, BPH, sleep apnea, syncope. Patient also has a history of stroke with left-sided deficits. He is maintained on Namenda for his history of dementia. Patient was apparently at a [place] when he got up to use the bathroom and fell. Patient was reporting some dizziness before he passed out but nonspecific he has no chest pain or shortness of breath. He has no new headache no new weakness or no new focal deficits. He has no abdominal pain no vomiting diarrhea no dysuria or urgency. He does not have incontinence of urine at baseline. Patient had a creatinine of 1.6 which is his baseline at admission. His troponin level was mildly elevated at 0.014. Chest x-ray reveals no acute cardiopulmonary process. Neck CT shows no acute process or fracture. CT scan of the face showed no acute intracranial process with nonspecific matter changes likely secondary to chronic small vessel ischemic change. There is no acute facial bone fracture and no evidence of cervical spines fractures. There is multi level of mild degenerative disc disease. Patient was admitted to the hospital and physical therapy was consulted secondary to the reports of generalized weakness. Cardiology ordered echocardiogram as well as neurological consultation because of the fall. Patient had echocardiogram revealing an EF of 45 to 50%. Acute coronary syndrome ruled out the elevated troponin per cardiology was thought to be due to poor car creatinine clearance. Neurologically his workup was unremarkable. Patient did require a 3 night inpatient hospital stay secondary to his health insurance he was flipped to inpatient and today has met that requirement. He is awake alert and oriented x 2-3. He is fatigued and continues with diffuse generalized weakness and would benefit greatly from subacute rehab. He has been had improvement of his renal function down to a BUN of 17.9 creatinine of 1.4 his sodium level is 139. White blood cell count is 8.55 hemoglobin 12.0. His urinalysis was negative for any infection he has been afebrile heart rate of 61 blood pressure of 150/79 and he is 98% on room air. His bowels have been m oving. He has been cleared medically for discharge to [facility]. Please see medication reconciliation for a list of current medications. Thank you for allowing us to participate in the care of this patient. The impression and plan of care has been dictated by Teresa Nicole, Nurse Practitioner as directed. Dr. Shira MD I have performed a history and physical examination and medical decision making of this patient, discussed the same with the dictator, and agree with the dictators assessment and plan as written, documented as a scribe. Based on total visit time, I have performed more than 50% of this visit. Patient Condition at Discharge: Stable Plan - Discharge Summary New Discharge Prescriptions: New Heparin Sodium,Porcine (1 ml) [Heparin Sodium] 5,000 unit SQ Q12HR each Acetaminophen Tab [Tylenol] 650 mg PO Q6HR PRN tab PRN Reason: Mild Pain Or Fever > 100.5 Continue Docusate [Colace] 100 mg PO DAILY No Action Atorvastatin [Lipitor] 80 mg PO HS Aspirin EC [Ecotrin Low Dose] 81 mg PO DAILY calcitrioL 0.25 mcg PO SUTUWETHFRSA Clopidogrel [Plavix] 75 mg PO DAILY Sertraline [Zoloft] 100 mg PO DAILY amLODIPine [Norvasc] 10 mg PO DAILY Melatonin [Melatonin Tr] 10 mg PO HS Memantine [Namenda] 5 mg PO BID Pantoprazole [Protonix] 40 mg PO BID Cetirizine HCl [Zyrtec] 10 mg PO DAILY Cholecalciferol (Vitamin D3) [Vitamin D3 (50 Mcg = 2000 Iu)] 50 mcg PO DAILY Discharge Medication List Atorvastatin [Lipitor] 80 mg PO HS 05/26/17 [History] Aspirin EC [Ecotrin Low Dose] 81 mg PO DAILY 02/12/18 [History] calcitrioL 0.25 mcg PO SUTUWETHFRSA 10/07/18 [History] Clopidogrel [Plavix] 75 mg PO DAILY 12/08/19 [History] Melatonin [Melatonin Tr] 10 mg PO HS 07/24/22 [History] Cetirizine HCl [Zyrtec] 10 mg PO DAILY 10/17/24 [History] Cholecalciferol (Vitamin D3) [Vitamin D3 (50 Mcg = 2000 Iu)] 50 mcg PO DAILY 10/17/24 [History] Memantine [Namenda] 5 mg PO BID 10/17/24 [History] Pantoprazole [Protonix] 40 mg PO BID 10/17/24 [History] Sertraline [Zoloft] 100 mg PO DAILY 10/17/24 [History] amLODIPine [Norvasc] 10 mg PO DAILY 12/29/24 [History] Docusate [Colace] 100 mg PO DAILY 05/08/25 [History] Acetaminophen Tab [Tylenol] 650 mg PO Q6HR PRN tab 05/14/25 [Rx] Heparin Sodium,Porcine (1 ml) [Heparin Sodium] 5,000 unit SQ Q12HR each 05/14/25 [Rx] Follow up Appointment(s)/Referral(s): Rick Luke MD [Primary Care Provider] - 1-2 days
== END 2025-05-14 15:14 | DRG 683 ==
LOC: EC 06:40 → 6NMEDSUR 09:09 → OBSVTOIN 05-11 15:53
PROVIDERS: ADMIT Hospitalist; ATTEND Hospitalist
DX: N17.9 Acute kidney failure, unspecified (principal); F03.918 Unspecified dementia, unspecified severity, with other behavioral disturbance; I69.354 Hemiplegia and hemiparesis following cerebral infarction affecting left non-dominant side; N18.30 Chronic kidney disease, stage 3 unspecified; E11.22 Type 2 diabetes mellitus with diabetic chronic kidney disease; I12.9 Hypertensive chronic kidney disease with stage 1 through stage 4 chronic kidney disease, or unspecified chronic kidney disease; Z95.828 Presence of other vascular implants and grafts; E83.42 Hypomagnesemia; N40.0 Benign prostatic hyperplasia without lower urinary tract symptoms; S00.81XA Abrasion of other part of head, initial encounter; K52.9 Noninfective gastroenteritis and colitis, unspecified; E78.5 Hyperlipidemia, unspecified; M19.90 Unspecified osteoarthritis, unspecified site; K21.9 Gastro-esophageal reflux disease without esophagitis; R53.1 Weakness; R79.89 Other specified abnormal findings of blood chemistry; K59.00 Constipation, unspecified; G47.33 Obstructive sleep apnea (adult) (pediatric); R29.6 Repeated falls; E86.0 Dehydration; R32 Unspecified urinary incontinence; W17.89XA Other fall from one level to another, initial encounter; Z79.02 Long term (current) use of antithrombotics/antiplatelets; Z79.82 Long term (current) use of aspirin; Z79.899 Other long term (current) drug therapy; Z91.81 History of falling; Z87.891 Personal history of nicotine dependence; Y92.009 Unspecified place in unspecified non-institutional (private) residence as the place of occurrence of the external cause; Z96.651 Presence of right artificial knee joint; Y93.01 Activity, walking, marching and hiking
CPT/HCPCS: 36415; 51798; 70450; 70486; 71046; 72125; 80048; 80053; 80061; 80076; 81003; 82607; 82746; 83036; 83735; 83880; 84443; 84484; 85025; 85610; 85730; 93005; 93306; 93880; 96361; 96365; 99285